=== PATIENT | female | born 1960 | race Caucasian/White ===

== ENCOUNTER → 2018-10-20 05:00 | Outpatient (REF) | payer MEDICAID, SELFPAY ==
[2018-10-20 10:22] LABS: Hemoglobin A1c 8.8 % (4.2-6.3)
[2018-10-20 10:32] LABS: ALB/GLOB Ratio 0.8 RATIO (0.9-2.4); AST(SGOT) 12 U/L (15-37); Alanine Aminotransfer ALT/SGPT 21 U/L (13-56); Albumin, Serum 3.3 g/dL (3.2-5.0); Alkaline Phosphatase 82 U/L (45-117); Anion Gap 8 (5-15); BUN 37 mg/dL (7-18); BUN/Creat Ratio 26.2 RATIO (10-20); Calcium,Total 8.9 mg/dL (8.5-10.1); Chloride 105 mmol/L (98-107); Creatinine, Serum 1.41 mg/dL (0.55-1.02); EST Glomerular Filtration Rate 41 mL/min (>60); Est Glom Filt Rate - Afr Amer 50 mL/min (>60); Globulin 4.1 g/dL (2.2-4.2); Glucose 279 mg/dL (74-106); Potassium 4.3 mmol/L (3.5-5.1); Protein, Total 7.4 g/dL (6.4-8.2); Sodium Level 138 mmol/L (136-145)
== END ==
LOC: OLS.ACW300 05:00
PROVIDERS: Visit Provider Family Medicine
DX: K57.90 Diverticulosis of intestine, part unspecified, without perforation or abscess without bleeding (principal); M62.81 Muscle weakness (generalized); R27.9 Unspecified lack of coordination; E11.21 Type 2 diabetes mellitus with diabetic nephropathy
CPT/HCPCS: 36415; 80053; 83036

== ENCOUNTER → 2018-10-21 04:00 | Outpatient (REF) | payer MEDICAID, SELFPAY ==
[2018-10-21 08:17] LABS: Color, Urine Straw (Yellow); Glucose, Dipstick Normal (Normal); Ketone-Dipstick Negative (Negative); Leukocyte Esterase-Dipstick 25 /ul (Negative); Nitrite-Dipstick Negative (Negative); Occult Blood-Urine Negative /ul (Negative); Protein-Dipstick 30 mg/dl (Negative); Urine Bilirubin Dipstick Negative (Negative); Urine Clarity Clear (Clear); Urine Urobilinogen Normal (Normal); Urine pH 6.5 (5.0 - 8.0)
== END ==
LOC: OLS.ACW300 04:00
PROVIDERS: Visit Provider Family Medicine
DX: K57.90 Diverticulosis of intestine, part unspecified, without perforation or abscess without bleeding (principal); M62.81 Muscle weakness (generalized); R27.9 Unspecified lack of coordination; E11.21 Type 2 diabetes mellitus with diabetic nephropathy
CPT/HCPCS: 81002; 87086; 87088

== ENCOUNTER → 2018-12-31 05:30 | Outpatient (REF) | payer MEDICAID, SELFPAY ==
[2018-12-31 06:45] LABS: Anion Gap 8 (5-15); BUN 34 mg/dL (7-18); BUN/Creat Ratio 28.6 RATIO (10-20); Calcium,Total 8.9 mg/dL (8.5-10.1); Chloride 107 mmol/L (98-107); Creatinine, Serum 1.19 mg/dL (0.55-1.02); EST Glomerular Filtration Rate 50 mL/min (>60); Est Glom Filt Rate - Afr Amer 60 mL/min (>60); Glucose 236 mg/dL (74-106); Potassium 4.2 mmol/L (3.5-5.1); Sodium Level 141 mmol/L (136-145)
== END ==
LOC: OLS.ACW300 05:30
PROVIDERS: Visit Provider Family Medicine
DX: K57.90 Diverticulosis of intestine, part unspecified, without perforation or abscess without bleeding (principal); M62.81 Muscle weakness (generalized); R27.9 Unspecified lack of coordination; E11.21 Type 2 diabetes mellitus with diabetic nephropathy
CPT/HCPCS: 36415; 80048

== ENCOUNTER → 2019-02-06 05:00 | Outpatient (REF) | payer MEDICAID, SELFPAY ==
[2019-02-06 08:35] LABS: Hemoglobin A1c 8.9 % (4.2-6.3)
== END ==
LOC: OLS.ACW300 05:00
PROVIDERS: Visit Provider Family Medicine
DX: E11.21 Type 2 diabetes mellitus with diabetic nephropathy (principal); K57.90 Diverticulosis of intestine, part unspecified, without perforation or abscess without bleeding; M62.81 Muscle weakness (generalized); R27.9 Unspecified lack of coordination
CPT/HCPCS: 36415; 83036

== ENCOUNTER → 2019-07-13 06:30 | Outpatient (REF) | payer MEDICAID, SELFPAY ==
[2019-07-13 08:35] LABS: Albumin, Serum 3.1 g/dL (3.2-5.0); BUN 31 mg/dL (7-18); BUN/Creat Ratio 23.3 RATIO (10-20); Creatinine, Serum 1.33 mg/dL (0.55-1.02); EST Glomerular Filtration Rate 44 mL/min (>60); Est Glom Filt Rate - Afr Amer 53 mL/min (>60); Glucose 252 mg/dL (74-106); Protein, Total 7.2 g/dL (6.4-8.2)
[2019-07-13 08:36] LABS: ALB/GLOB Ratio 0.8 RATIO (0.9-2.4); AST(SGOT) 21 U/L (15-37); Alanine Aminotransfer ALT/SGPT 31 U/L (13-56); Alkaline Phosphatase 83 U/L (45-117); Anion Gap 8 (5-15); Calcium,Total 9.1 mg/dL (8.5-10.1); Chloride 106 mmol/L (98-107); Globulin 4.1 g/dL (2.2-4.2); Potassium 3.9 mmol/L (3.5-5.1); Sodium Level 140 mmol/L (136-145)
[2019-07-13 09:54] LABS: Hemoglobin A1c 8.5 % (4.2-6.3)
== END ==
LOC: OLS.ACW300 06:30
PROVIDERS: Referring Provider Internal Medicine; Visit Provider Internal Medicine
DX: K57.90 Diverticulosis of intestine, part unspecified, without perforation or abscess without bleeding (principal); M62.81 Muscle weakness (generalized); R27.9 Unspecified lack of coordination; E11.21 Type 2 diabetes mellitus with diabetic nephropathy
CPT/HCPCS: 36415; 80053; 83036

== ENCOUNTER → 2019-09-16 07:45 | Outpatient (REF) | payer MEDICAID, SELFPAY ==
[2019-09-16 09:09] LABS: Cholesterol 162 mg/dL (200); High Density Lipoprotein 30 mg/dL; Triglycerides 239 mg/dL; Very Low Density Lipoprotein 48 mg/dL (5-40)
== END ==
LOC: OLS.ACW300 07:45
PROVIDERS: Visit Provider Internal Medicine
DX: K57.90 Diverticulosis of intestine, part unspecified, without perforation or abscess without bleeding (principal); M62.81 Muscle weakness (generalized); R27.9 Unspecified lack of coordination; E11.21 Type 2 diabetes mellitus with diabetic nephropathy
CPT/HCPCS: 36415; 80061

== ENCOUNTER → 2019-12-19 05:00 | Outpatient (REF) | payer MEDICAID, SELFPAY ==
[2019-12-19 08:25] LABS: Anion Gap 4 (5-15); BUN 34 mg/dL (7-18); BUN/Creat Ratio 25.2 RATIO (10-20); Calcium,Total 9.1 mg/dL (8.5-10.1); Chloride 112 mmol/L (98-107); Creatinine, Serum 1.35 mg/dL (0.55-1.02); EST Glomerular Filtration Rate 43 mL/min (>60); Est Glom Filt Rate - Afr Amer 52 mL/min (>60); Glucose 125 mg/dL (74-106); Potassium 4.1 mmol/L (3.5-5.1); Sodium Level 143 mmol/L (136-145)
[2019-12-19 08:36] LABS: Hemoglobin A1c 8.1 % (3.8-5.6)
== END ==
LOC: OLS.ACW300 05:00
PROVIDERS: Referring Provider Internal Medicine; Visit Provider Internal Medicine
DX: K57.90 Diverticulosis of intestine, part unspecified, without perforation or abscess without bleeding (principal); M62.81 Muscle weakness (generalized); R27.9 Unspecified lack of coordination; R41.841 Cognitive communication deficit
CPT/HCPCS: 36415; 80048; 83036

== ENCOUNTER → 2020-01-05 10:57 | Outpatient (REF) | payer MEDICAID, SELFPAY | LOC: OLS.ACW300 10:57 | PROVIDERS: Visit Provider Internal Medicine | DX: Z03.818 Encounter for observation for suspected exposure to other biological agents ruled out (principal) | CPT/HCPCS: 87635; U0003 ==

== ENCOUNTER → 2020-01-11 13:23 | Outpatient (REF) | payer MEDICAID, SELFPAY | LOC: OLS.ACW300 13:23 | PROVIDERS: Referring Provider Family Medicine; Visit Provider Family Medicine | DX: Z03.818 Encounter for observation for suspected exposure to other biological agents ruled out (principal) | CPT/HCPCS: 87635; U0003 ==

== ENCOUNTER → 2020-02-28 13:38 | Outpatient (REF) | payer MEDICAID, SELFPAY | LOC: OLS.ACW300 13:38 | PROVIDERS: Visit Provider Family Medicine | DX: Z03.818 Encounter for observation for suspected exposure to other biological agents ruled out (principal) | CPT/HCPCS: 87635; U0003 ==

== ENCOUNTER → 2020-04-29 05:00 | Outpatient (REF) | payer MEDICAID, SELFPAY ==
[2020-04-29 08:30] LABS: Anion Gap 6 (5-15); BUN 37 mg/dL (7-18); BUN/Creat Ratio 27.6 RATIO (10-20); Calcium,Total 8.6 mg/dL (8.5-10.1); Chloride 111 mmol/L (98-107); Creatinine, Serum 1.34 mg/dL (0.55-1.02); EST Glomerular Filtration Rate 43 mL/min (>60); Est Glom Filt Rate - Afr Amer 52 mL/min (>60); Glucose 149 mg/dL (74-106); Sodium Level 142 mmol/L (136-145)
== END ==
LOC: OLS.ACW300 05:00
PROVIDERS: Referring Provider Family Medicine; Visit Provider Family Medicine
DX: E11.21 Type 2 diabetes mellitus with diabetic nephropathy (principal); K57.90 Diverticulosis of intestine, part unspecified, without perforation or abscess without bleeding; M62.81 Muscle weakness (generalized); R27.9 Unspecified lack of coordination
CPT/HCPCS: 36415; 80048

== ENCOUNTER → 2020-06-06 05:00 | Outpatient (REF) | payer MEDICAID, SELFPAY ==
[2020-06-06 08:15] LABS: Hemoglobin 13.8 g/dL (12.0-15.0); Mean Corp Hgb Conc 32.9 g/dL (32-36); Mean Corpuscular Hgb 30.2 pg (27.0-32.0); Mean Corpuscular Volume 91.9 fL (81-99); Platelet Count 325 K/mm3 (150-450); RBC Distribution Width CV 13.1 % (11.6-14.6); RBC Distribution Width SD 43.8 fl (35.1-43.9); Red Blood Count 4.57 M/mm3 (4.2-5.4); White Blood Count 8.4 K/mm3 (4.4-11.0)
[2020-06-06 08:43] LABS: Vitamin D,25 Hydroxy 22.9 ng/mL
[2020-06-06 08:55] LABS: AST(SGOT) 17 U/L (15-37); Alanine Aminotransfer ALT/SGPT 24 U/L (13-56); Alkaline Phosphatase 69 U/L (45-117); Anion Gap 5 (5-15); BUN 32 mg/dL (7-18); BUN/Creat Ratio 21.1 RATIO (10-20); Calcium,Total 8.7 mg/dL (8.5-10.1); Chloride 110 mmol/L (98-107); Cholesterol 194 mg/dL (200); Creatinine, Serum 1.52 mg/dL (0.55-1.02); EST Glomerular Filtration Rate 37 mL/min (>60); Est Glom Filt Rate - Afr Amer 45 mL/min (>60); Globulin 3.9 g/dL (2.2-4.2); Glucose 100 mg/dL (74-106); High Density Lipoprotein 36 mg/dL; Potassium 4.2 mmol/L (3.5-5.1); Protein, Total 6.9 g/dL (6.4-8.2); Sodium Level 145 mmol/L (136-145); Thyroid Stim Hormone (TSH) 5.05 uIU/mL (0.358-3.74); Triglycerides 209 mg/dL; Very Low Density Lipoprotein 42 mg/dL (5-40)
[2020-06-06 09:07] LABS: Hemoglobin A1c 7.4 % (3.8-5.6)
== END ==
LOC: OLS.ACW300 05:00
PROVIDERS: Visit Provider Family Medicine
DX: E11.21 Type 2 diabetes mellitus with diabetic nephropathy (principal); K57.90 Diverticulosis of intestine, part unspecified, without perforation or abscess without bleeding; M62.81 Muscle weakness (generalized); R27.9 Unspecified lack of coordination
CPT/HCPCS: 36415; 80048; 80061; 80076; 82306; 83036; 84443; 85027

== ENCOUNTER → 2020-06-07 15:30 | Outpatient (REF) | payer MEDICAID, SELFPAY | LOC: OLS.ACW300 15:30 | PROVIDERS: Referring Provider Family Medicine; Visit Provider Family Medicine | DX: R30.0 Dysuria (principal); E11.21 Type 2 diabetes mellitus with diabetic nephropathy; K57.90 Diverticulosis of intestine, part unspecified, without perforation or abscess without bleeding; M62.81 Muscle weakness (generalized); R27.9 Unspecified lack of coordination | CPT/HCPCS: 87086; 87088 ==

== ENCOUNTER → 2020-06-10 08:53 | Outpatient (REF) | payer MEDICAID, SELFPAY | LOC: OLS.ACW300 08:53 | PROVIDERS: Visit Provider Family Medicine | DX: R30.0 Dysuria (principal) | CPT/HCPCS: 87086; 87088; 87186 ==

== ENCOUNTER → 2020-11-07 04:15 | Outpatient (REF) | payer MEDICAID, SELFPAY ==
[2020-11-07 08:57] LABS: Color, Urine Yellow (Yellow); Glucose, Dipstick Normal (Normal); Ketone-Dipstick Negative (Negative); Leukocyte Esterase-Dipstick 25 /ul (Negative); Nitrite-Dipstick Negative (Negative); Occult Blood-Urine Negative /ul (Negative); Protein-Dipstick 100 mg/dl (Negative); Specific Gravity, Urine 1.015 (1.002-1.030); Urine Bilirubin Dipstick Negative (Negative); Urine Clarity Sl. Cloudy (Clear); Urine Urobilinogen Normal (Normal)
== END ==
LOC: OLS.ACW300 04:15
PROVIDERS: Referring Provider Family Medicine; Visit Provider Family Medicine
DX: E11.21 Type 2 diabetes mellitus with diabetic nephropathy (principal); K57.90 Diverticulosis of intestine, part unspecified, without perforation or abscess without bleeding; M62.81 Muscle weakness (generalized); R27.9 Unspecified lack of coordination
CPT/HCPCS: 81002; 87086; 87088

== ENCOUNTER → 2020-12-05 05:00 | Outpatient (REF) | payer MEDICAID, SELFPAY ==
[2020-12-05 09:10] LABS: AST(SGOT) 17 U/L (15-37); Alanine Aminotransfer ALT/SGPT 33 U/L (13-56); Albumin, Serum 2.6 g/dL (3.2-5.0); Alkaline Phosphatase 62 U/L (45-117); Anion Gap 4 (5-15); BUN 34 mg/dL (7-18); BUN/Creat Ratio 23.9 RATIO (10-20); Bilirubin, Direct 0.06 mg/dL (0.00-0.30); Calcium,Total 8.4 mg/dL (8.5-10.1); Chloride 112 mmol/L (98-107); Cholesterol 157 mg/dL (200); Creatinine, Serum 1.42 mg/dL (0.55-1.02); EST Glomerular Filtration Rate 40 mL/min (>60); Est Glom Filt Rate - Afr Amer 49 mL/min (>60); Globulin 4.1 g/dL (2.2-4.2); Glucose 87 mg/dL (74-106); High Density Lipoprotein 33 mg/dL; Magnesium 1.9 mg/dL (1.6-2.6); Potassium 4.1 mmol/L (3.5-5.1); Protein, Total 6.7 g/dL (6.4-8.2); Sodium Level 144 mmol/L (136-145); Triglycerides 206 mg/dL; Very Low Density Lipoprotein 41 mg/dL (5-40)
[2020-12-05 10:38] LABS: Hemoglobin A1c 6.5 % (3.8-5.6)
== END ==
LOC: OLS.ACW300 05:00
PROVIDERS: Visit Provider Family Medicine
DX: E11.21 Type 2 diabetes mellitus with diabetic nephropathy (principal); K57.90 Diverticulosis of intestine, part unspecified, without perforation or abscess without bleeding; M62.81 Muscle weakness (generalized); R27.9 Unspecified lack of coordination
CPT/HCPCS: 36415; 80048; 80061; 80076; 83036; 83735

== ENCOUNTER → 2021-05-05 | Outpatient (REF) | payer MEDICAID, SELFPAY ==
[2021-05-05 11:42] LABS: Hematocrit 37.8 % (37-47); Hemoglobin 12.5 g/dL (12.0-15.0); Mean Corp Hgb Conc 33.1 g/dL (32-36); Mean Corpuscular Hgb 29.5 pg (27.0-32.0); Mean Corpuscular Volume 89.2 fL (81-99); Mean Platelet Vol. 9.8 fl (6.2-12.0); Platelet Count 309 K/mm3 (150-450); RBC Distribution Width CV 12.8 % (11.6-14.6); RBC Distribution Width SD 41.5 fl (35.1-43.9); Red Blood Count 4.24 M/mm3 (4.2-5.4); White Blood Count 8.4 K/mm3 (4.4-11.0)
[2021-05-05 12:21] LABS: Vitamin D,25 Hydroxy 22.2 ng/mL
[2021-05-05 12:32] LABS: ALB/GLOB Ratio 0.8 RATIO (0.9-2.4); AST(SGOT) 17 U/L (15-37); Alanine Aminotransfer ALT/SGPT 25 U/L (13-56); Albumin, Serum 2.7 g/dL (3.2-5.0); Alkaline Phosphatase 71 U/L (45-117); Anion Gap 2 (5-15); BUN 33 mg/dL (7-18); BUN/Creat Ratio 21.4 RATIO (10-20); Calcium,Total 8.4 mg/dL (8.5-10.1); Chloride 110 mmol/L (98-107); Cholesterol 160 mg/dL (200); Creatinine, Serum 1.54 mg/dL (0.55-1.02); EST Glomerular Filtration Rate 37 mL/min (>60); Est Glom Filt Rate - Afr Amer 44 mL/min (>60); Globulin 3.6 g/dL (2.2-4.2); Glucose 119 mg/dL (74-106); High Density Lipoprotein 34 mg/dL; Potassium 4.5 mmol/L (3.5-5.1); Protein, Total 6.3 g/dL (6.4-8.2); Sodium Level 141 mmol/L (136-145); Thyroid Stim Hormone (TSH) 5.77 uIU/mL (0.358-3.74); Triglycerides 179 mg/dL; Very Low Density Lipoprotein 36 mg/dL (5-40)
[2021-05-05 14:10] LABS: Hemoglobin A1c 6.7 % (3.8-5.6)
== END | disposition home or self-care (01) ==
LOC: OLS.ACW300 04:00
PROVIDERS: Referring Provider Family Medicine; Visit Provider Family Medicine
DX: E11.21 Type 2 diabetes mellitus with diabetic nephropathy (principal); K57.90 Diverticulosis of intestine, part unspecified, without perforation or abscess without bleeding; M62.81 Muscle weakness (generalized); R27.9 Unspecified lack of coordination
CPT/HCPCS: 36415; 80053; 80061; 82306; 83036; 84443; 85027

== ENCOUNTER → 2021-08-11 | Outpatient (REF) | payer MEDICAID, SELFPAY ==
[2021-08-11 09:38] LABS: Thyroid Stim Hormone (TSH) 4.27 uIU/mL (0.358-3.74)
== END | disposition home or self-care (01) ==
LOC: OLS.ACW300 05:00
PROVIDERS: Visit Provider Family Medicine
DX: E03.9 Hypothyroidism, unspecified (principal); E11.21 Type 2 diabetes mellitus with diabetic nephropathy; K57.90 Diverticulosis of intestine, part unspecified, without perforation or abscess without bleeding; M62.81 Muscle weakness (generalized); R27.9 Unspecified lack of coordination
CPT/HCPCS: 36415; 84443

== ENCOUNTER → 2021-10-20 | Outpatient (REF) | payer MEDICAID, SELFPAY | END | disposition home or self-care (01) | LOC: OLS.ACW300 09:59 | PROVIDERS: Referring Provider Family Medicine; Visit Provider Family Medicine | DX: R30.9 Painful micturition, unspecified (principal); E11.21 Type 2 diabetes mellitus with diabetic nephropathy; K57.90 Diverticulosis of intestine, part unspecified, without perforation or abscess without bleeding; M62.81 Muscle weakness (generalized); R27.9 Unspecified lack of coordination | CPT/HCPCS: 87086; 87088 ==

== ENCOUNTER → 2021-12-04 | Outpatient (REF) | payer MEDICAID, SELFPAY ==
[2021-12-04 09:56] LABS: Hemoglobin A1c 6.7 % (3.8-5.6)
[2021-12-04 09:57] LABS: AST(SGOT) 14 U/L (15-37); Alanine Aminotransfer ALT/SGPT 21 U/L (13-56); Albumin, Serum 2.9 g/dL (3.2-5.0); Alkaline Phosphatase 56 U/L (45-117); Anion Gap 7 (5-15); BUN 37 mg/dL (7-18); Bilirubin, Direct 0.09 mg/dL (0.00-0.30); Calcium,Total 8.7 mg/dL (8.5-10.1); Chloride 110 mmol/L (98-107); Cholesterol 161 mg/dL (200); Creatinine, Serum 1.54 mg/dL (0.55-1.02); EST Glomerular Filtration Rate 37 mL/min (>60); Est Glom Filt Rate - Afr Amer 44 mL/min (>60); Globulin 3.8 g/dL (2.2-4.2); Glucose 85 mg/dL (74-106); High Density Lipoprotein 34 mg/dL; Protein, Total 6.7 g/dL (6.4-8.2); Sodium Level 144 mmol/L (136-145); Triglycerides 214 mg/dL; Very Low Density Lipoprotein 43 mg/dL (5-40)
[2021-12-05 05:20] LABS: Thyroid Stim Hormone (TSH) 4.16 uIU/mL (0.358-3.74)
== END | disposition home or self-care (01) ==
LOC: OLS.ACW300 05:00
PROVIDERS: Visit Provider Family Medicine
DX: E11.21 Type 2 diabetes mellitus with diabetic nephropathy (principal); K57.90 Diverticulosis of intestine, part unspecified, without perforation or abscess without bleeding; M62.81 Muscle weakness (generalized); R27.9 Unspecified lack of coordination
CPT/HCPCS: 36415; 80048; 80061; 80076; 83036; 84443

== ENCOUNTER → 2022-03-09 | Outpatient (REF) | payer MEDICAID, SELFPAY ==
[2022-03-09 09:03] LABS: Thyroid Stim Hormone (TSH) 2.31 uIU/mL (0.358-3.74)
== END | disposition home or self-care (01) ==
LOC: OLS.ACW300 05:00
PROVIDERS: Visit Provider Family Medicine
DX: E11.21 Type 2 diabetes mellitus with diabetic nephropathy (principal); K57.90 Diverticulosis of intestine, part unspecified, without perforation or abscess without bleeding; M62.81 Muscle weakness (generalized); R27.9 Unspecified lack of coordination
CPT/HCPCS: 36415; 84443

== ENCOUNTER → 2022-06-04 | Outpatient (REF) | payer MEDICAID, SELFPAY ==
[2022-06-04 08:34] LABS: Hematocrit 38.5 % (37-47); Hemoglobin 12.6 g/dL (12.0-15.0); Mean Corp Hgb Conc 32.7 g/dL (32-36); Mean Corpuscular Hgb 30.6 pg (27.0-32.0); Mean Corpuscular Volume 93.4 fL (81-99); Platelet Count 409 K/mm3 (150-450); RBC Distribution Width CV 12.3 % (11.6-14.6); RBC Distribution Width SD 42.2 fl (35.1-43.9); Red Blood Count 4.12 M/mm3 (4.2-5.4); White Blood Count 12.1 K/mm3 (4.4-11.0)
[2022-06-04 08:49] LABS: AST(SGOT) 18 U/L (15-37); Alanine Aminotransfer ALT/SGPT 28 U/L (13-56); Albumin, Serum 2.4 g/dL (3.2-5.0); Alkaline Phosphatase 70 U/L (45-117); Anion Gap 8 (5-15); BUN 47 mg/dL (7-18); BUN/Creat Ratio 25.8 RATIO (10-20); Bilirubin, Direct 0.12 mg/dL (0.00-0.30); Calcium,Total 8.5 mg/dL (8.5-10.1); Chloride 110 mmol/L (98-107); Cholesterol 135 mg/dL (200); Creatinine, Serum 1.82 mg/dL (0.55-1.02); EST Glomerular Filtration Rate 30 mL/min (>60); Est Glom Filt Rate - Afr Amer 36 mL/min (>60); Glucose 107 mg/dL (74-106); High Density Lipoprotein 35 mg/dL; Potassium 4.4 mmol/L (3.5-5.1); Protein, Total 6.4 g/dL (6.4-8.2); Sodium Level 142 mmol/L (136-145); Triglycerides 186 mg/dL; Very Low Density Lipoprotein 37 mg/dL (5-40)
[2022-06-04 09:07] LABS: Hemoglobin A1c 6.4 % (3.8-5.6)
== END | disposition home or self-care (01) ==
LOC: OLS.ACW300 05:00
PROVIDERS: Visit Provider Family Medicine
DX: E11.21 Type 2 diabetes mellitus with diabetic nephropathy (principal); K57.90 Diverticulosis of intestine, part unspecified, without perforation or abscess without bleeding; M62.81 Muscle weakness (generalized); R27.9 Unspecified lack of coordination
CPT/HCPCS: 36415; 80048; 80061; 80076; 83036; 85027

== ENCOUNTER → 2022-07-16 | Outpatient (REF) | payer MEDICAID, SELFPAY ==
[2022-07-16 08:31] LABS: Hematocrit 38.3 % (37-47); Hemoglobin 12.4 g/dL (12.0-15.0); Mean Corp Hgb Conc 32.4 g/dL (32-36); Mean Corpuscular Hgb 30.5 pg (27.0-32.0); Mean Corpuscular Volume 94.1 fL (81-99); Platelet Count 268 K/mm3 (150-450); RBC Distribution Width CV 12.6 % (11.6-14.6); RBC Distribution Width SD 43.6 fl (35.1-43.9); Red Blood Count 4.07 M/mm3 (4.2-5.4); White Blood Count 8.8 K/mm3 (4.4-11.0)
[2022-07-16 08:35] LABS: Erythrocyte Sedimentation Rate 43 mm/hr (0-30)
[2022-07-16 08:42] LABS: Cholesterol 167 mg/dL (200); High Density Lipoprotein 37 mg/dL; Triglycerides 159 mg/dL; Very Low Density Lipoprotein 32 mg/dL (5-40)
== END | disposition home or self-care (01) ==
LOC: OLS.ACW300 05:00
PROVIDERS: Visit Provider Family Medicine
DX: E11.21 Type 2 diabetes mellitus with diabetic nephropathy (principal); K57.90 Diverticulosis of intestine, part unspecified, without perforation or abscess without bleeding; M62.81 Muscle weakness (generalized); R27.9 Unspecified lack of coordination
CPT/HCPCS: 36415; 80061; 85027; 85652; 86140

== ENCOUNTER → 2022-08-28 | Outpatient (REF) | payer MEDICAID, SELFPAY | END | disposition home or self-care (01) | LOC: OLS.ACW300 04:00 | PROVIDERS: Visit Provider Family Medicine | DX: S81.801A Unspecified open wound, right lower leg, initial encounter (principal) | CPT/HCPCS: 87070; 87077; 87186; 87205 ==

== ENCOUNTER → 2022-10-09 | Outpatient (REF) | payer MEDICAID, SELFPAY ==
[2022-10-09 09:44] LABS: Anion Gap 7 (5-15); BUN 40 mg/dL (7-18); BUN/Creat Ratio 21.2 RATIO (10-20); Calcium,Total 8.1 mg/dL (8.5-10.1); Chloride 103 mmol/L (98-107); Creatinine, Serum 1.89 mg/dL (0.55-1.02); EST Glomerular Filtration Rate 29 mL/min (>60); Est Glom Filt Rate - Afr Amer 35 mL/min (>60); Glucose 61 mg/dL (74-106); Sodium Level 133 mmol/L (136-145)
== END | disposition home or self-care (01) ==
LOC: OLS.ACW300 05:00
PROVIDERS: Visit Provider Family Medicine
DX: E11.21 Type 2 diabetes mellitus with diabetic nephropathy (principal); K57.90 Diverticulosis of intestine, part unspecified, without perforation or abscess without bleeding
CPT/HCPCS: 36415; 80048

== ENCOUNTER → 2022-11-05 | Outpatient (REF) | payer MEDICAID, SELFPAY ==
[2022-11-05 10:06] LABS: Hemoglobin A1c 5.6 % (3.8-5.6)
== END | disposition home or self-care (01) ==
LOC: OLS.ACW300 05:00
PROVIDERS: Visit Provider Family Medicine
DX: E11.21 Type 2 diabetes mellitus with diabetic nephropathy (principal)
CPT/HCPCS: 36415; 83036

== ENCOUNTER → 2022-11-25 | Outpatient (REF) | payer MEDICAID, SELFPAY ==
[2022-11-25 09:23] LABS: Hematocrit 37.4 % (37-47); Hemoglobin 11.5 g/dL (12.0-15.0); Mean Corp Hgb Conc 30.7 g/dL (32-36); Mean Corpuscular Hgb 29.9 pg (27.0-32.0); Mean Corpuscular Volume 97.4 fL (81-99); Mean Platelet Vol. 10.2 fl (6.2-12.0); Platelet Count 379 K/mm3 (150-450); RBC Distribution Width CV 12.6 % (11.6-14.6); RBC Distribution Width SD 44.9 fl (35.1-43.9); Red Blood Count 3.84 M/mm3 (4.2-5.4); White Blood Count 10.9 K/mm3 (4.4-11.0)
== END | disposition home or self-care (01) ==
LOC: OLS.ACW300 05:00
PROVIDERS: Visit Provider Family Medicine
DX: D64.9 Anemia, unspecified (principal); E11.21 Type 2 diabetes mellitus with diabetic nephropathy; K57.90 Diverticulosis of intestine, part unspecified, without perforation or abscess without bleeding
CPT/HCPCS: 36415; 85027

== ENCOUNTER → 2023-02-05 | Outpatient (REF) | payer MEDICAID, SELFPAY ==
[2023-02-05 11:45] LABS: Hemoglobin A1c 6.6 % (3.8-5.6)
== END | disposition home or self-care (01) ==
LOC: OLS.ACW300 05:00
PROVIDERS: Visit Provider Family Medicine
DX: E11.9 Type 2 diabetes mellitus without complications (principal)
CPT/HCPCS: 36415; 83036

== ENCOUNTER → 2023-02-13 | Outpatient (REF) | payer MEDICAID, SELFPAY ==
[2023-02-13 15:19] LABS: Color, Urine Red (Yellow); Glucose, Dipstick 1000 mg/dl (Normal); Ketone-Dipstick 5 mg/dl (Negative); Leukocyte Esterase-Dipstick 100 /ul (Negative); Nitrite-Dipstick Negative (Negative); Occult Blood-Urine 250 /ul (Negative); Protein-Dipstick 500 mg/dl (Negative); Urine Bilirubin Dipstick Negative (Negative); Urine Clarity Cloudy (Clear); Urine Urobilinogen Normal (Normal)
[2023-02-13 15:24] LABS: Hematocrit 37.6 % (37-47); Hemoglobin 11.9 g/dL (12.0-15.0); Mean Corp Hgb Conc 31.6 g/dL (32-36); Mean Corpuscular Hgb 29.6 pg (27.0-32.0); Mean Corpuscular Volume 93.5 fL (81-99); Mean Platelet Vol. 9.8 fl (6.2-12.0); Platelet Count 322 K/mm3 (150-450); RBC Distribution Width CV 12.8 % (11.6-14.6); RBC Distribution Width SD 43.7 fl (35.1-43.9); Red Blood Count 4.02 M/mm3 (4.2-5.4); White Blood Count 11.3 K/mm3 (4.4-11.0)
[2023-02-13 15:44] LABS: Anion Gap 6 (5-15); BUN 47 mg/dL (7-18); BUN/Creat Ratio 28.3 RATIO (10-20); Calcium,Total 8.4 mg/dL (8.5-10.1); Chloride 112 mmol/L (98-107); Creatinine, Serum 1.66 mg/dL (0.55-1.02); EST Glomerular Filtration Rate 33 mL/min (>60); Est Glom Filt Rate - Afr Amer 40 mL/min (>60); Glucose 138 mg/dL (74-106); Potassium 4.7 mmol/L (3.5-5.1); Sodium Level 142 mmol/L (136-145)
== END | disposition home or self-care (01) ==
LOC: OLS.ACW300 14:10
PROVIDERS: Referring Provider Family Medicine; Visit Provider Family Medicine
DX: E11.21 Type 2 diabetes mellitus with diabetic nephropathy (principal); K57.90 Diverticulosis of intestine, part unspecified, without perforation or abscess without bleeding; M62.81 Muscle weakness (generalized); Z79.899 Other long term (current) drug therapy
CPT/HCPCS: 36415; 80048; 81002; 85027; 87077; 87086; 87088; 87186

== ENCOUNTER → 2023-07-19 | Outpatient (REF) | payer MEDICAID, SELFPAY ==
[2023-07-19 09:05] LABS: Hemoglobin 11.5 g/dL (12.0-15.0); Mean Corp Hgb Conc 31.1 g/dL (32-36); Mean Corpuscular Hgb 29.7 pg (27.0-32.0); Mean Corpuscular Volume 95.6 fL (81-99); Platelet Count 341 K/mm3 (150-450); RBC Distribution Width SD 45.3 fl (35.1-43.9); Red Blood Count 3.87 M/mm3 (4.2-5.4); White Blood Count 8.9 K/mm3 (4.4-11.0)
[2023-07-19 09:36] LABS: Anion Gap 5 (5-15); BUN 54 mg/dL (7-18); Calcium,Total 8.6 mg/dL (8.5-10.1); Chloride 112 mmol/L (98-107); Creatinine, Serum 2.16 mg/dL (0.55-1.02); EST Glomerular Filtration Rate 25 mL/min (>60); Est Glom Filt Rate - Afr Amer 30 mL/min (>60); Glucose 179 mg/dL (74-106); Potassium 4.5 mmol/L (3.5-5.1); Sodium Level 141 mmol/L (136-145)
== END | disposition home or self-care (01) ==
LOC: OLS.ACW300 05:00
PROVIDERS: Visit Provider Family Medicine
DX: Z79.899 Other long term (current) drug therapy (principal)
CPT/HCPCS: 36415; 80048; 85027

== ENCOUNTER → 2023-07-26 | Outpatient (REF) | payer MEDICAID, SELFPAY ==
[2023-07-26 09:04] LABS: Hematocrit 35.1 % (37-47); Hemoglobin 10.9 g/dL (12.0-15.0); Mean Corp Hgb Conc 31.1 g/dL (32-36); Mean Corpuscular Hgb 29.8 pg (27.0-32.0); Mean Corpuscular Volume 95.9 fL (81-99); Mean Platelet Vol. 10.3 fl (6.2-12.0); Platelet Count 305 K/mm3 (150-450); RBC Distribution Width SD 45.6 fl (35.1-43.9); Red Blood Count 3.66 M/mm3 (4.2-5.4); White Blood Count 8.1 K/mm3 (4.4-11.0)
[2023-07-26 09:16] LABS: Anion Gap 3 (5-15); BUN 45 mg/dL (7-18); BUN/Creat Ratio 21.4 RATIO (10-20); Calcium,Total 8.4 mg/dL (8.5-10.1); Chloride 111 mmol/L (98-107); EST Glomerular Filtration Rate 25 mL/min (>60); Est Glom Filt Rate - Afr Amer 31 mL/min (>60); Glucose 235 mg/dL (74-106); Potassium 4.7 mmol/L (3.5-5.1); Sodium Level 141 mmol/L (136-145)
== END | disposition home or self-care (01) ==
LOC: OLS.ACW300 05:00
PROVIDERS: Visit Provider Family Medicine
DX: E11.21 Type 2 diabetes mellitus with diabetic nephropathy (principal); K57.90 Diverticulosis of intestine, part unspecified, without perforation or abscess without bleeding; M62.81 Muscle weakness (generalized)
CPT/HCPCS: 36415; 80048; 85027

== ENCOUNTER → 2023-10-18 | Outpatient (REF) | payer MEDICAID, SELFPAY ==
[2023-10-18 09:03] LABS: Hematocrit 36.3 % (37-47); Hemoglobin 11.4 g/dL (12.0-15.0); Mean Corp Hgb Conc 31.4 g/dL (32-36); Mean Corpuscular Hgb 29.2 pg (27.0-32.0); Mean Corpuscular Volume 93.1 fL (81-99); Mean Platelet Vol. 10.1 fl (6.2-12.0); Platelet Count 258 K/mm3 (150-450); RBC Distribution Width CV 12.4 % (11.6-14.6); RBC Distribution Width SD 42.5 fl (35.1-43.9); White Blood Count 7.4 K/mm3 (4.4-11.0)
[2023-10-18 09:21] LABS: Anion Gap 4 (5-15); BUN 47 mg/dL (7-18); Calcium,Total 8.4 mg/dL (8.5-10.1); Chloride 114 mmol/L (98-107); Cholesterol 161 mg/dL (200); Creatinine, Serum 1.74 mg/dL (0.55-1.02); EST Glomerular Filtration Rate 32 mL/min (>60); Est Glom Filt Rate - Afr Amer 38 mL/min (>60); Glucose 108 mg/dL (74-106); High Density Lipoprotein 43 mg/dL; Potassium 4.7 mmol/L (3.5-5.1); Sodium Level 141 mmol/L (136-145); Thyroid Stim Hormone (TSH) 1.26 uIU/mL (0.358-3.74); Triglycerides 128 mg/dL; Very Low Density Lipoprotein 26 mg/dL (5-40)
[2023-10-18 09:23] LABS: Hemoglobin A1c 8.6 % (3.8-5.6)
== END | disposition home or self-care (01) ==
LOC: OLS.ACW300 04:00
PROVIDERS: Visit Provider Family Medicine
DX: Z79.899 Other long term (current) drug therapy (principal); E11.21 Type 2 diabetes mellitus with diabetic nephropathy; R27.9 Unspecified lack of coordination; M62.81 Muscle weakness (generalized); K57.90 Diverticulosis of intestine, part unspecified, without perforation or abscess without bleeding
CPT/HCPCS: 36415; 80048; 80061; 83036; 84443; 85027

== ENCOUNTER → 2023-12-03 | Outpatient (REF) | payer MEDICAID, SELFPAY ==
[2023-12-03 08:45] LABS: Absolute Lymphocyte Count 2.17 X10^3/uL (0.83-4.51); Absolute Neutrophil Count 4.6 X10^3/uL (2.0-7.7); Basophil# 0.09 X10^3/uL; Basophil% 1.1 % (0-1); Eosinophil# 0.26 X10^3/uL; Eosinophils% 3.3 % (0-5); Hematocrit 34.9 % (37-47); Lymphocyte # 2.17 X10^3/ul (0.83-4.51); Lymphocyte % 27.2 % (19-41); Mean Corp Hgb Conc 31.5 g/dL (32-36); Mean Corpuscular Hgb 30.1 pg (27.0-32.0); Mean Corpuscular Volume 95.4 fL (81-99); Mean Platelet Vol. 9.8 fl (6.2-12.0); Monocyte# 0.79 X10^3/uL; Monocyte% 9.9 % (0-10); NRBC Flagged by Analyzer 0 % (0-5); Neutrophil # 4.61 X10^3/uL (2.7-7.7); Neutrophil % 57.9 % (47-70); Platelet Count 310 K/mm3 (150-450); RBC Distribution Width CV 13.2 % (11.6-14.6); RBC Distribution Width SD 46.5 fl (35.1-43.9); Red Blood Count 3.66 M/mm3 (4.2-5.4)
[2023-12-03 09:11] LABS: Albumin, Serum 2.9 g/dL (3.2-5.0); BUN 46 mg/dL (7-18); BUN/Creat Ratio 24.9 RATIO (10-20); Calcium,Total 8.7 mg/dL (8.5-10.1); Chloride 112 mmol/L (98-107); Creatinine, Serum 1.85 mg/dL (0.55-1.02); EST Glomerular Filtration Rate 29 mL/min (>60); Est Glom Filt Rate - Afr Amer 36 mL/min (>60); Glucose 228 mg/dL (74-106); Phosphorus 3.5 mg/dL (2.5-4.9); Potassium 4.1 mmol/L (3.5-5.1); Sodium Level 141 mmol/L (136-145)
[2023-12-03 09:41] LABS: Hemoglobin A1c 7.2 % (3.8-5.6)
[2023-12-03 15:07] LABS: Vitamin D,25 Hydroxy 27.4 ng/mL
[2023-12-03 15:13] LABS: PTHIN 80.2 pg/mL (18.4-80.1)
== END | disposition home or self-care (01) ==
LOC: OLS.ACW300 05:00
PROVIDERS: Visit Provider Family Medicine
DX: E11.21 Type 2 diabetes mellitus with diabetic nephropathy (principal); K57.90 Diverticulosis of intestine, part unspecified, without perforation or abscess without bleeding; M62.81 Muscle weakness (generalized); R27.9 Unspecified lack of coordination
CPT/HCPCS: 36415; 80069; 82306; 83036; 83970; 85025

== ENCOUNTER → 2024-01-18 | Outpatient (REF) | payer MEDICAID, SELFPAY ==
[2024-01-18 08:30] LABS: Hematocrit 35.9 % (37-47); Hemoglobin 11.3 g/dL (12.0-15.0); Mean Corp Hgb Conc 31.5 g/dL (32-36); Mean Corpuscular Hgb 29.9 pg (27.0-32.0); Mean Platelet Vol. 9.8 fl (6.2-12.0); Platelet Count 317 K/mm3 (150-450); RBC Distribution Width SD 41.9 fl (35.1-43.9); Red Blood Count 3.78 M/mm3 (4.2-5.4); White Blood Count 7.8 K/mm3 (4.4-11.0)
[2024-01-18 08:51] LABS: Anion Gap 5 (5-15); BUN 61 mg/dL (7-18); BUN/Creat Ratio 31.9 RATIO (10-20); Calcium,Total 8.8 mg/dL (8.5-10.1); Chloride 111 mmol/L (98-107); Cholesterol 134 mg/dL (200); Creatinine, Serum 1.91 mg/dL (0.55-1.02); EST Glomerular Filtration Rate 28 mL/min (>60); Est Glom Filt Rate - Afr Amer 34 mL/min (>60); Glucose 161 mg/dL (74-106); High Density Lipoprotein 37 mg/dL; Potassium 4.5 mmol/L (3.5-5.1); Sodium Level 141 mmol/L (136-145); Triglycerides 179 mg/dL; Very Low Density Lipoprotein 36 mg/dL (5-40)
[2024-01-18 09:58] LABS: Hemoglobin A1c 7.1 % (3.8-5.6)
== END | disposition home or self-care (01) ==
LOC: OLS.ACW300 05:00
PROVIDERS: Visit Provider Family Medicine
DX: E11.21 Type 2 diabetes mellitus with diabetic nephropathy (principal); K57.90 Diverticulosis of intestine, part unspecified, without perforation or abscess without bleeding; M62.81 Muscle weakness (generalized); Z79.899 Other long term (current) drug therapy
CPT/HCPCS: 36415; 80048; 80061; 83036; 84443; 85027

== ENCOUNTER → 2024-02-10 | Outpatient (REF) | payer MEDICAID, SELFPAY ==
[2024-02-10 08:53] LABS: Color, Urine Yellow (Yellow); Glucose, Dipstick 1000 mg/dl (Normal); Ketone-Dipstick Negative (Negative); Leukocyte Esterase-Dipstick Negative /ul (Negative); Nitrite-Dipstick Negative (Negative); Occult Blood-Urine 25 /ul (Negative); Protein-Dipstick 100 mg/dl (Negative); Specific Gravity, Urine 1.015 (1.002-1.030); Urine Bilirubin Dipstick Negative (Negative); Urine Clarity Clear (Clear); Urine Urobilinogen Normal (Normal)
== END | disposition home or self-care (01) ==
LOC: OLS.ACW300 05:30
PROVIDERS: Visit Provider Family Medicine
DX: R39.9 Unspecified symptoms and signs involving the genitourinary system (principal); E11.21 Type 2 diabetes mellitus with diabetic nephropathy
CPT/HCPCS: 81002; 87086

== ENCOUNTER → 2024-02-23 | Outpatient (REF) | payer MEDICAID, SELFPAY ==
[2024-02-23 09:10] LABS: Hematocrit 38.2 % (37-47); Hemoglobin 12.1 g/dL (12.0-15.0); Mean Corp Hgb Conc 31.7 g/dL (32-36); Mean Corpuscular Hgb 29.4 pg (27.0-32.0); Mean Corpuscular Volume 92.7 fL (81-99); Mean Platelet Vol. 10.5 fl (6.2-12.0); Platelet Count 380 K/mm3 (150-450); RBC Distribution Width CV 12.4 % (11.6-14.6); RBC Distribution Width SD 42.1 fl (35.1-43.9); Red Blood Count 4.12 M/mm3 (4.2-5.4); White Blood Count 9.9 K/mm3 (4.4-11.0)
[2024-02-23 09:17] LABS: Anion Gap 6 (5-15); BUN 48 mg/dL (7-18); BUN/Creat Ratio 21.3 RATIO (10-20); Calcium,Total 9.1 mg/dL (8.5-10.1); Chloride 109 mmol/L (98-107); Creatinine, Serum 2.25 mg/dL (0.55-1.02); EST Glomerular Filtration Rate 23 mL/min (>60); Est Glom Filt Rate - Afr Amer 28 mL/min (>60); Glucose 192 mg/dL (74-106); Potassium 4.6 mmol/L (3.5-5.1); Sodium Level 140 mmol/L (136-145)
== END | disposition home or self-care (01) ==
LOC: OLS.ACW100 06:05
PROVIDERS: Referring Provider Family Medicine; Visit Provider Family Medicine
DX: E11.21 Type 2 diabetes mellitus with diabetic nephropathy (principal); K57.90 Diverticulosis of intestine, part unspecified, without perforation or abscess without bleeding; M62.81 Muscle weakness (generalized)
CPT/HCPCS: 36415; 80048; 85027

== ENCOUNTER → 2024-03-02 | Outpatient (REF) | payer MEDICAID, SELFPAY ==
[2024-03-02 08:51] LABS: Anion Gap 6 (5-15); BUN 62 mg/dL (7-18); BUN/Creat Ratio 25.7 RATIO (10-20); Calcium,Total 8.6 mg/dL (8.5-10.1); Chloride 109 mmol/L (98-107); Creatinine, Serum 2.41 mg/dL (0.55-1.02); EST Glomerular Filtration Rate 22 mL/min (>60); Est Glom Filt Rate - Afr Amer 26 mL/min (>60); Glucose 237 mg/dL (74-106); Potassium 5.5 mmol/L (3.5-5.1); Sodium Level 138 mmol/L (136-145)
== END | disposition home or self-care (01) ==
LOC: OLS.ACW300 05:00
PROVIDERS: Visit Provider Family Medicine
DX: E11.21 Type 2 diabetes mellitus with diabetic nephropathy (principal); K57.90 Diverticulosis of intestine, part unspecified, without perforation or abscess without bleeding; M62.81 Muscle weakness (generalized)
CPT/HCPCS: 36415; 80048

== ENCOUNTER → 2024-03-09 | Outpatient (REF) | payer MEDICAID, SELFPAY ==
[2024-03-09 09:14] LABS: Hematocrit 36.1 % (37-47); Hemoglobin 11.4 g/dL (12.0-15.0); Mean Corp Hgb Conc 31.6 g/dL (32-36); Mean Platelet Vol. 10.2 fl (6.2-12.0); Platelet Count 329 K/mm3 (150-450); RBC Distribution Width CV 12.8 % (11.6-14.6)
[2024-03-09 09:50] LABS: ALB/GLOB Ratio 0.8 RATIO (0.9-2.4); AST(SGOT) 15 U/L (15-37); Alanine Aminotransfer ALT/SGPT 18 U/L (13-56); Albumin, Serum 3.2 g/dL (3.2-5.0); Alkaline Phosphatase 65 U/L (45-117); Anion Gap 5 (5-15); BUN 60 mg/dL (7-18); BUN/Creat Ratio 26.9 RATIO (10-20); Calcium,Total 8.5 mg/dL (8.5-10.1); Chloride 112 mmol/L (98-107); Creatinine, Serum 2.23 mg/dL (0.55-1.02); EST Glomerular Filtration Rate 24 mL/min (>60); Est Glom Filt Rate - Afr Amer 29 mL/min (>60); Globulin 3.8 g/dL (2.2-4.2); Glucose 191 mg/dL (74-106); Potassium 5.3 mmol/L (3.5-5.1); Sodium Level 141 mmol/L (136-145)
== END | disposition home or self-care (01) ==
LOC: OLS.ACW100 04:00
PROVIDERS: Referring Provider Family Medicine; Visit Provider Family Medicine
DX: E11.21 Type 2 diabetes mellitus with diabetic nephropathy (principal); M62.81 Muscle weakness (generalized)
CPT/HCPCS: 36415; 80053; 85027

== ENCOUNTER → 2024-03-16 04:00 | Outpatient (REF) | payer MEDICAID, SELFPAY ==
[2024-03-16 10:16] LABS: Anion Gap 4 (5-15); BUN 61 mg/dL (7-18); BUN/Creat Ratio 27.5 RATIO (10-20); Calcium,Total 8.6 mg/dL (8.5-10.1); Chloride 113 mmol/L (98-107); Creatinine, Serum 2.22 mg/dL (0.55-1.02); EST Glomerular Filtration Rate 24 mL/min (>60); Est Glom Filt Rate - Afr Amer 29 mL/min (>60); Glucose 226 mg/dL (74-106); Potassium 4.7 mmol/L (3.5-5.1); Sodium Level 142 mmol/L (136-145)
== END ==
LOC: OLS.ACW100 04:00
PROVIDERS: Referring Provider Family Medicine; Visit Provider Family Medicine
DX: E11.21 Type 2 diabetes mellitus with diabetic nephropathy (principal); K57.90 Diverticulosis of intestine, part unspecified, without perforation or abscess without bleeding; M62.81 Muscle weakness (generalized)
CPT/HCPCS: 36415; 80048

== ENCOUNTER → 2024-03-27 | Outpatient (REF) | payer MEDICAID, SELFPAY ==
[2024-03-27 10:25] LABS: Anion Gap 8 (5-15); BUN 52 mg/dL (7-18); BUN/Creat Ratio 25.5 RATIO (10-20); Chloride 110 mmol/L (98-107); Creatinine, Serum 2.04 mg/dL (0.55-1.02); EST Glomerular Filtration Rate 26 mL/min (>60); Est Glom Filt Rate - Afr Amer 32 mL/min (>60); Glucose 119 mg/dL (74-106); Potassium 4.5 mmol/L (3.5-5.1); Sodium Level 140 mmol/L (136-145)
== END | disposition home or self-care (01) ==
LOC: OLS.ACW100 05:00
PROVIDERS: Visit Provider Family Medicine
DX: E11.21 Type 2 diabetes mellitus with diabetic nephropathy (principal); K57.90 Diverticulosis of intestine, part unspecified, without perforation or abscess without bleeding; M62.81 Muscle weakness (generalized)
CPT/HCPCS: 36415; 80048

== ENCOUNTER → 2024-04-10 | Outpatient (REF) | payer MEDICAID, SELFPAY ==
[2024-04-10 11:14] LABS: Anion Gap 6 (5-15); BUN 54 mg/dL (7-18); BUN/Creat Ratio 25.2 RATIO (10-20); Calcium,Total 8.7 mg/dL (8.5-10.1); Chloride 111 mmol/L (98-107); Creatinine, Serum 2.14 mg/dL (0.55-1.02); EST Glomerular Filtration Rate 25 mL/min (>60); Est Glom Filt Rate - Afr Amer 30 mL/min (>60); Glucose 110 mg/dL (74-106); Potassium 4.5 mmol/L (3.5-5.1); Sodium Level 139 mmol/L (136-145)
== END | disposition home or self-care (01) ==
LOC: OLS.ACW100 05:00
PROVIDERS: Visit Provider Family Medicine
DX: E11.21 Type 2 diabetes mellitus with diabetic nephropathy (principal); K57.90 Diverticulosis of intestine, part unspecified, without perforation or abscess without bleeding
CPT/HCPCS: 36415; 80048

== ENCOUNTER → 2024-04-19 | Outpatient (REF) | payer MEDICAID, SELFPAY ==
[2024-04-19 07:18] LABS: Hematocrit 37.1 % (37-47); Hemoglobin 11.4 g/dL (12.0-15.0); Mean Corp Hgb Conc 30.7 g/dL (32-36); Mean Corpuscular Hgb 28.4 pg (27.0-32.0); Mean Corpuscular Volume 92.5 fL (81-99); Mean Platelet Vol. 9.9 fl (6.2-12.0); Platelet Count 318 K/mm3 (150-450); RBC Distribution Width CV 12.5 % (11.6-14.6); RBC Distribution Width SD 42.7 fl (35.1-43.9); Red Blood Count 4.01 M/mm3 (4.2-5.4)
[2024-04-19 07:32] LABS: Anion Gap 9 (5-15); BUN 54 mg/dL (7-18); BUN/Creat Ratio 24.9 RATIO (10-20); Calcium,Total 9.1 mg/dL (8.5-10.1); Chloride 110 mmol/L (98-107); Cholesterol 120 mg/dL (200); Creatinine, Serum 2.17 mg/dL (0.55-1.02); EST Glomerular Filtration Rate 24 mL/min (>60); Est Glom Filt Rate - Afr Amer 30 mL/min (>60); Glucose 201 mg/dL (74-106); High Density Lipoprotein 42 mg/dL; Sodium Level 141 mmol/L (136-145); Triglycerides 124 mg/dL; Very Low Density Lipoprotein 25 mg/dL (5-40)
[2024-04-19 09:03] LABS: Hemoglobin A1c 7.2 % (3.8-5.6)
== END | disposition home or self-care (01) ==
LOC: OLS.ACW100 05:00
PROVIDERS: Visit Provider Family Medicine
DX: E11.21 Type 2 diabetes mellitus with diabetic nephropathy (principal); Z79.899 Other long term (current) drug therapy
CPT/HCPCS: 36415; 80048; 80061; 83036; 84443; 85027

== ENCOUNTER → 2024-04-24 05:00 | Outpatient (REF) | payer MEDICAID, SELFPAY ==
[2024-04-24 10:43] LABS: Anion Gap 7 (5-15); BUN 65 mg/dL (7-18); BUN/Creat Ratio 27.1 RATIO (10-20); Calcium,Total 8.4 mg/dL (8.5-10.1); Chloride 109 mmol/L (98-107); EST Glomerular Filtration Rate 22 mL/min (>60); Est Glom Filt Rate - Afr Amer 26 mL/min (>60); Glucose 304 mg/dL (74-106); Potassium 5.1 mmol/L (3.5-5.1); Sodium Level 137 mmol/L (136-145)
== END ==
LOC: OLS.ACW100 05:00
PROVIDERS: Visit Provider Family Medicine
DX: N18.32 Chronic kidney disease, stage 3b (principal); E11.21 Type 2 diabetes mellitus with diabetic nephropathy; K57.90 Diverticulosis of intestine, part unspecified, without perforation or abscess without bleeding; M62.81 Muscle weakness (generalized); R27.9 Unspecified lack of coordination
CPT/HCPCS: 36415; 80048

== ENCOUNTER → 2024-04-26 05:00 | Outpatient (REF) | payer MEDICAID, SELFPAY ==
[2024-04-26 07:05] LABS: Hematocrit 37.6 % (37-47); Hemoglobin 11.9 g/dL (12.0-15.0); Mean Corp Hgb Conc 31.6 g/dL (32-36); Mean Corpuscular Hgb 29.7 pg (27.0-32.0); Mean Corpuscular Volume 93.8 fL (81-99); Mean Platelet Vol. 10.1 fl (6.2-12.0); Platelet Count 337 K/mm3 (150-450); RBC Distribution Width CV 12.7 % (11.6-14.6); RBC Distribution Width SD 43.2 fl (35.1-43.9); Red Blood Count 4.01 M/mm3 (4.2-5.4); White Blood Count 7.5 K/mm3 (4.4-11.0)
[2024-04-26 07:15] LABS: Anion Gap 6 (5-15); BUN 65 mg/dL (7-18); BUN/Creat Ratio 30.4 RATIO (10-20); Calcium,Total 8.7 mg/dL (8.5-10.1); Chloride 111 mmol/L (98-107); Creatinine, Serum 2.14 mg/dL (0.55-1.02); EST Glomerular Filtration Rate 25 mL/min (>60); Est Glom Filt Rate - Afr Amer 30 mL/min (>60); Glucose 167 mg/dL (74-106); Potassium 4.6 mmol/L (3.5-5.1); Sodium Level 140 mmol/L (136-145)
== END ==
LOC: OLS.ACW100 05:00
PROVIDERS: Visit Provider Family Medicine
DX: E11.21 Type 2 diabetes mellitus with diabetic nephropathy (principal); K57.90 Diverticulosis of intestine, part unspecified, without perforation or abscess without bleeding; M62.81 Muscle weakness (generalized); R27.9 Unspecified lack of coordination
CPT/HCPCS: 36415; 80048; 85027

== ENCOUNTER → 2024-05-03 04:00 | Outpatient (REF) | payer MEDICAID, SELFPAY ==
[2024-05-03 07:53] LABS: Hemoglobin A1c 7.6 % (3.8-5.6)
== END ==
LOC: OLS.ACW100 04:00
PROVIDERS: Referring Provider Family Medicine; Visit Provider Family Medicine
DX: E11.21 Type 2 diabetes mellitus with diabetic nephropathy (principal)
CPT/HCPCS: 36415; 83036

== ENCOUNTER → 2024-06-23 | Outpatient (REF) | payer MEDICAID, SELFPAY ==
[2024-06-23 08:43] LABS: Vancomycin, Trough Level 9.5 ug/mL (5.0-15.0)
== END | disposition home or self-care (01) ==
LOC: OLS.ACW100 05:00
PROVIDERS: Visit Provider Family Medicine
DX: E11.21 Type 2 diabetes mellitus with diabetic nephropathy (principal); K57.90 Diverticulosis of intestine, part unspecified, without perforation or abscess without bleeding; M62.81 Muscle weakness (generalized)
CPT/HCPCS: 36415; 80202

== ENCOUNTER → 2024-07-04 | Outpatient (REF) | payer MEDICAID, SELFPAY ==
[2024-07-04 08:21] LABS: Hematocrit 36.5 % (37-47); Hemoglobin 11.9 g/dL (12.0-15.0); Mean Corp Hgb Conc 32.6 g/dL (32-36); Mean Corpuscular Hgb 29.7 pg (27.0-32.0); Mean Platelet Vol. 9.8 fl (6.2-12.0); Platelet Count 297 K/mm3 (150-450); RBC Distribution Width CV 13.2 % (11.6-14.6); RBC Distribution Width SD 43.6 fl (35.1-43.9); Red Blood Count 4.01 M/mm3 (4.2-5.4); White Blood Count 7.5 K/mm3 (4.4-11.0)
[2024-07-04 08:46] LABS: Pro- Brain NATRIURETIC PEPTIDE 357 pg/mL (<=900); Troponin T High Sensitivity 33 ng/L (<=14)
[2024-07-04 08:48] LABS: ALB/GLOB Ratio 1.1 RATIO (0.9-2.4); AST(SGOT) 23 U/L (<=31); Alanine Aminotransfer ALT/SGPT 10 U/L (<=34); Albumin, Serum 3.6 g/dL (3.4-4.8); Alkaline Phosphatase 66 U/L (35-104); Anion Gap 12 (5-15); BUN 52 mg/dL (4-19); BUN/Creat Ratio 23.6 RATIO (10-20); Carbon Dioxide 20.5 mmol/L (21.0-32.0); Chloride 108 mmol/L (98-108); Creatinine, Serum 2.22 mg/dL (0.70-1.20); EST Glomerular Filtration Rate 24 (>60); Globulin 3.4 g/dL (2.2-4.2); Glucose 88 mg/dL (70-99); Potassium 4.3 mmol/L (3.3-5.1); Sodium Level 141 mmol/L (133-145); Total Bilirubin 0.32 mg/dL (0.00-1.30)
== END | disposition home or self-care (01) ==
LOC: OLS.ACW100 04:00
PROVIDERS: Referring Provider Family Medicine; Visit Provider Family Medicine
DX: E11.21 Type 2 diabetes mellitus with diabetic nephropathy (principal); K57.90 Diverticulosis of intestine, part unspecified, without perforation or abscess without bleeding; M62.81 Muscle weakness (generalized); R27.9 Unspecified lack of coordination
CPT/HCPCS: 36415; 80053; 83880; 84484; 85027

== ENCOUNTER → 2024-07-17 | Outpatient (REF) | payer MEDICAID, SELFPAY ==
[2024-07-17 09:22] LABS: Hematocrit 33.8 % (37-47); Hemoglobin 10.9 g/dL (12.0-15.0); Mean Corp Hgb Conc 32.2 g/dL (32-36); Mean Corpuscular Hgb 29.5 pg (27.0-32.0); Mean Corpuscular Volume 91.6 fL (81-99); Platelet Count 286 K/mm3 (150-450); RBC Distribution Width CV 12.5 % (11.6-14.6); RBC Distribution Width SD 41.5 fl (35.1-43.9); Red Blood Count 3.69 M/mm3 (4.2-5.4); White Blood Count 6.7 K/mm3 (4.4-11.0)
[2024-07-17 09:51] LABS: Anion Gap 10 (5-15); BUN 52 mg/dL (4-19); Calcium,Total 8.8 mg/dL (7.6-11.0); Carbon Dioxide 23.1 mmol/L (21.0-32.0); Chloride 107 mmol/L (98-108); Creatinine, Serum 1.87 mg/dL (0.70-1.20); EST Glomerular Filtration Rate 30 (>60); Glucose 254 mg/dL (70-99); Potassium 5.1 mmol/L (3.3-5.1); Sodium Level 140 mmol/L (133-145)
[2024-07-17 13:28] LABS: Hemoglobin A1c 7.5 % (<=5.6)
== END | disposition home or self-care (01) ==
LOC: OLS.ACW100 05:00
PROVIDERS: Visit Provider Family Medicine
DX: E11.21 Type 2 diabetes mellitus with diabetic nephropathy (principal); K57.90 Diverticulosis of intestine, part unspecified, without perforation or abscess without bleeding; M62.81 Muscle weakness (generalized); R27.9 Unspecified lack of coordination
CPT/HCPCS: 36415; 80048; 83036; 85027

== ENCOUNTER → 2024-07-19 | Outpatient (REF) | payer MEDICAID, SELFPAY ==
[2024-07-19 08:39] LABS: Absolute Lymphocyte Count 1.65 X10^3/uL (0.83-4.51); Absolute Neutrophil Count 3.7 X10^3/uL (2.0-7.7); Basophil# 0.07 X10^3/uL; Basophil% 1.1 % (0-1); Eosinophil# 0.31 X10^3/uL; Eosinophils% 4.7 % (0-5); Hematocrit 32.5 % (37-47); Hemoglobin 10.4 g/dL (12.0-15.0); Lymphocyte # 1.65 X10^3/ul (0.83-4.51); Mean Corpuscular Hgb 29.1 pg (27.0-32.0); Mean Platelet Vol. 9.9 fl (6.2-12.0); Monocyte% 12.1 % (0-10); NRBC Flagged by Analyzer 0 % (0-5); Neutrophil # 3.72 X10^3/uL (2.7-7.7); Neutrophil % 56.3 % (47-70); Platelet Count 288 K/mm3 (150-450); RBC Distribution Width CV 12.6 % (11.6-14.6); RBC Distribution Width SD 41.5 fl (35.1-43.9); Red Blood Count 3.57 M/mm3 (4.2-5.4); White Blood Count 6.6 K/mm3 (4.4-11.0)
[2024-07-19 08:52] LABS: Hemoglobin A1c 7.6 % (<=5.6)
[2024-07-19 08:59] LABS: PTHIN 28 pg/mL (11-61)
[2024-07-19 09:14] LABS: Color, Urine Yellow (Yellow); Glucose, Dipstick 250 mg/dl (Normal); Ketone-Dipstick Negative (Negative); Leukocyte Esterase-Dipstick 25 /ul (Negative); Nitrite-Dipstick Negative (Negative); Occult Blood-Urine 10 /ul (Negative); Urine Bilirubin Dipstick Negative (Negative); Urine Clarity Clear (Clear); Urine Urobilinogen Normal (Normal)
[2024-07-19 09:15] LABS: Albumin, Serum 3.3 g/dL (3.4-4.8); Anion Gap 10 (5-15); BUN 49 mg/dL (4-19); BUN/Creat Ratio 26.5 RATIO (10-20); Calcium,Total 8.8 mg/dL (7.6-11.0); Carbon Dioxide 22.3 mmol/L (21.0-32.0); Chloride 107 mmol/L (98-108); Creatinine, Serum 1.83 mg/dL (0.70-1.20); EST Glomerular Filtration Rate 31 (>60); Glucose 227 mg/dL (70-99); Phosphorus 4.4 mg/dL (2.7-4.5); Potassium 4.9 mmol/L (3.3-5.1); Sodium Level 139 mmol/L (133-145); Vitamin D,25 Hydroxy 14.1 ng/mL (30-100)
== END | disposition home or self-care (01) ==
LOC: OLS.ACW100 05:00
PROVIDERS: Visit Provider Family Medicine
DX: E11.21 Type 2 diabetes mellitus with diabetic nephropathy (principal); K57.90 Diverticulosis of intestine, part unspecified, without perforation or abscess without bleeding; M62.81 Muscle weakness (generalized)
CPT/HCPCS: 36415; 80069; 81002; 82306; 83036; 83970; 85025; 87077; 87086; 87088; 87186

== ENCOUNTER → 2024-08-16 | Outpatient (REF) | payer MEDICAID, SELFPAY ==
[2024-08-16 10:30] LABS: Mucous, Urine 0 SEEN /hpf (<or=2+)
[2024-08-16 11:05] LABS: Color, Urine Yellow (Yellow); Glucose, Dipstick 250 mg/dl (Normal); Ketone-Dipstick Negative (Negative); Leukocyte Esterase-Dipstick Negative /ul (Negative); Nitrite-Dipstick Negative (Negative); Occult Blood-Urine Negative /ul (Negative); Protein-Dipstick 500 mg/dl (Negative); Urine Bilirubin Dipstick Negative (Negative); Urine Clarity Clear (Clear); Urine Urobilinogen Normal (Normal)
[2024-08-16 12:30] LABS: Red Blood Cells-Urine 0-5 SEEN /hpf (0-5); Squamous Epithelial Cells - UA 0-5 SEEN /hpf (5-10); White Blood Cells 0-5 SEEN /hpf (0-5)
[2024-08-16 12:32] LABS: Bacteria RARE /hpf (None Seen)
== END | disposition home or self-care (01) ==
LOC: OLS.ACW100 05:00
PROVIDERS: Visit Provider Family Medicine
DX: E11.21 Type 2 diabetes mellitus with diabetic nephropathy (principal)
CPT/HCPCS: 81001; 87077; 87086; 87088; 87186

== ENCOUNTER → 2024-09-20 05:00 | Outpatient (REF) | payer MEDICAID, SELFPAY ==
--- OUTSIDE RECORDS SUMMARY | 2024-09-20 04:55 | XMS RPT_ITS | CCD ---
Author Organization [facility] Care Team Providers Care Residential Air Sealing Technician Name Role Phone IMCA Primary Care Unavailable ANUPAM WILLIS Admitting Unavailable KEITH ALMARAZ Consulting Unavailab ROGERIO Mckeon Attending Unavailable IMSHAHRZAD Primary Care Unavailable BHAVANA DEWITT Attending Unavailable ANUPAM WILLIS Admitting UnavailROGERIO Bah Attending Unavailable KEITH ALMARAZ Consulting Unavailab BHAVANA Tam Attending Unavaila Kristel Skelton Referring Unavailable Kristel Nunes Primary Care Unavailable Familia Mckeon Attending Unavailable CORY LA Admitting Unavailable CORY LA Attending Unavailable KRISTEL NUNES Primary Care Unavailable KRUPA STEINBERG Admitting Unavailable KRUPA STEINBERG Attending Unavailable KRISTEL NUNES Primary Care Unavailable HANANE MOODY Admitting Unavailable HANANE MOODY Attending Unavailable IESHA NUNES Primary Care Unavailable JERAMY JOHNSON Admitting Unavailable JERAMY JOHNSON Attending Unavailable IESHA NUNES Primary Care Unavailable Kristel Nunes MD Primary Care Provider [phone] Lex Roca Primary Care Provider [phone] Lex Roca MD Primary Care Provider Lex Roca Primary Care Provider [phone] LEX ROCA Primary Care Unavailable JERAMY ALLEN Attending Unavailable LEX ROCA Primary Care Unavailable GRZEGORZ GUILLEN Attending Unavailable LEX ROCA Primary Care Unavailable LUDY, OMI Admitting Unavailable JERAYM SY Attending Unavailable LEX ROCA Primary Care Unavailable Marcel CHEN Referring Unavailable Marcel CHEN Attending Unavailable LEX ROCA Primary Care Unavailable Marah HERNANDEZ, Lex Attending Provider UnavailSanjuana HERNANDEZ, Lex Referring Provider Unavailcarissa e Marah HERNANDEZ, Lex Attending Unavailable Marah OLS, Lex Attending Unavailable Marah OLS, Lex Attending Unavailable Marah HERNANDEZ, Lex Referring Unavailable Marah OLS, Lex Attending Unavailable Marah OLS, Lex Attending Unavailable Marah OLS, Lex Attending Unavailable Marah OLS, Lex Referring Unavailable Marah OLS, Lex Attending Unavailable Marah OLS, Lex Attending Unavailable Marah OLS, Lex Attending Unavailable Marah HERNANDEZ, Lex Referring Unavailable Marah HERNANDEZ, Lex Attending Unavailable Marah HERNANDEZ, Lex Referring Unavailable Marah HERNANDEZ, Lex Attending Unavailable Marah OLS, Lex Attending Unavailable Marah OLS, Lex Attending Unavailable Marah OLS, Lex Attending Unavailable Marah OLS, Lex Attending Unavailable Marah OLS, Lex Referring Unavailable Marah OLS, Lex Attending Unavailable Marah MARY, Lex Attending Unavailable Marah OLS, Lex Attending Unavailable Marah OLS, Lex Attending Unavailable Allergies Allergy Classification Reported Allergen(s) Allergy Type Date of Onset Reaction(s) Facility Penicillins (antibiotic) (2 sources) Penicillins Drug Allergy 8 Unknown [facility] (3 sources) Penicillin; Translations: [PENICILLIN] Drug Allergy 8 [facility] (6 sources) Penicillins Propensity to adverse reactions to drug 8 Unknown [facility] Medications Current Medications Medication Drug Class(es) Dates Sig (Normalized) Sig (Original) acetaminophen 325 mg rectal suppository (8 sources) acetaminophen (Tylenol) 325 MG suppository Insert into the rectum. Active amLODIPine 2.5 mg oral tablet (1 source) Dihydropyridine Calcium Channel Ej take 4 tablets by mouth once daily amLODIPine (NORVASC) 2.5 MG tablet Take 10 mg by mouth daily 0 Active aspirin 81 mg delayed release oral tablet (9 sources) Platelet Aggregation Inhibitor, Nonsteroidal Anti-inflammatory Drug take 1 tablet by mouth once daily aspirin 81 MG EC tablet Take 81 mg by mouth daily. Active take 1 tablet by mouth once justin y aspirin 81 MG tablet Take 81 mg by mouth daily 0 Active atorvastatin 20 mg oral tablet (9 sources) HMG-CoA Reductase Inhibitor take 1 tablet by mouth once daily atorvastatin (Lipitor) 20 MG tablet Take 20 mg by mouth daily. Active atorvastatin (LI PITOR) 40 MG tablet Take 20 mg by mouth daily 0 Active D-MANNOSE PO (8 sources) D-MANNOSE PO Joon e by mouth. Active D-MANNOSE PO Joon e by mouth. 0 Active dicyclomine hydrochloride 20 mg oral tablet (1 source) Anticholinergic Start: 07-18-2018 take 1 tablet by mouth four times daily as needed for pain dicyclomine (BENTYL) 20 MG tablet Take 1 tablet by mouth 4 times daily as needed (abdominal pain) 24 tablet 1 07/18/2018 Active docusate sodium 50 mg / sennosides, half-way 8.6 mg oral tablet (8 sources) take 8.6-50 mg by mouth once daily senna-docusate (Roxanne-Colace) 8.6-50 MG tablet Take 1 tablet by mouth daily. Active dulaglutide (Trulicity) 3 MG/0.5ML solution pen-injector (8 sources) inject 3 mg by subcutaneous injection every week dulaglutide (Trulicity) 3 MG/0.5ML solution pen-injector Inject 3 mg under the skin 1 (one) time per week. Active inject 3 mg by subcu taneous injection every week dulaglutide (Trulicity) 3 MG/0.5ML solution pen-injector Inject 3 mg under the skin 1 (one) time per week. 0 Active escitalopram 10 mg oral tablet (8 sources) Serotonin Reuptake Inhibitor take 1 tablet by mouth once daily escitalopram (Lexapro) 10 MG tablet Take 10 mg by mouth daily. Active fenofibrate 67 mg oral capsule (9 sources) Peroxisome Proliferator Receptor alpha Agonist take 1 capsule by mouth once daily at breakfast fenofibrate micronized (Lofibra) 67 MG capsule Take 67 mg by mouth daily (with breakfast). Active gabapentin 400 mg oral capsule (9 sources) Anti-epileptic Agent take 1 capsule by mouth three times daily gabapentin (Neurontin) 400 MG capsule Take 400 mg by mouth 3 times daily. Active gabapentin (NEUR ONTIN) 600 MG tablet Take 600 mg by mouth 3 times daily.. 0 Active hydrALAZINE hydrochloride 50 mg oral tablet (8 sources) Arteriolar Vasodilator hydrALAZI NE (Apresoline) 50 MG tablet Take by mouth. Active 3 ml insulin glargine 100 unt/ml pen injector (9 sources) Insulin Analog Start: 07-18-2018 insulin glargine (BASAGLAR KWIKPEN) 100 UNIT/ML injection pen Inject 90 Units into the skin every morning (before breakfast) 5 pen 3 07/18/2018 Active inject 60 [IU] by [place] bcutaneous injection once daily insulin glargine (Lantus) 100 UNIT/ML injection Inject 60 Units under the skin Nightly. Active levothyroxine sodium 0.075 mg oral tablet (8 sources) l-Thyroxine levothyroxine (Synthroid, Levoxyl) 75 MCG tablet Take by mouth every morning (before breakfast). Active 3 ml liraglutide 6 mg/ml pen injector (1 source) GLP-1 Receptor Agonist Liraglutide (VICTOZA ) 18 MG/3ML SOPN SC injection Inject 0.6 mg into the skin nightly 0 Active lisinopril 40 mg oral tablet (9 sources) Angiotensin Converting Enzyme Inhibitor take 1 tablet by mouth once daily lisinopril 40 MG tablet Take 40 mg by mouth daily. Active take 10 mg by mouth once daily l isinopril (PRINIVIL;ZESTRIL) 40 MG tablet Take 10 mg by mouth daily 0 Active metFORMIN hydrochloride 500 mg oral tablet (9 sources) Biguanide Start: 07-18-2018 take 1 tablet by mouth twice daily at mealtime metFORMIN (GLUCOPHAGE) 500 MG tablet Take 1 tablet by mouth 2 times daily (with meals) 60 tablet 3 07/18/2018 Active 24 hr metoprolol succinate 100 mg extended release oral tablet (9 sources) beta-Adrenergic Ej take 1 tablet by mouth every twenty-four hours metoprolol succinate XL (Toprol-XL) 100 MG 24 hr tablet Take by mouth. Do not crush or chew. Active metoprolol tartr ate (LOPRESSOR) 25 MG tablet Take 12.5 mg by mouth 2 times daily 0 Active montelukast 10 mg oral tablet (1 source) Leukotriene Receptor Antagonist take 1 tablet by mouth once daily montelukast (SINGULAIR) 10 MG tablet Take 10 mg by mouth nightly 0 Active rOPINIRole 0.5 mg oral tablet (8 sources) Nonergot Dopamine Agonist take 1 tablet by mouth three times daily rOPINIRole (Requip) 0.5 MG tablet Take 0.5 mg by mouth 3 times daily. Active Completed/Discontinued Medications Medication Drug Class(es) Dates Sig (Normalized) Sig (Original) albuterol 0.833 mg/ml / ipratropium bromide 0.167 mg/ml inhalation solution (2 sources) Anticholinergic, beta2-Adrenergic Agonist Start: 09-07-2023 End: 09-07-2023 3 mL, Nebulization, Once, On Wed09/07/23 at 1800, For 1 dose methylPREDNISolone 125 mg injection (2 sources) Corticosteroid Start: 09-07-2023 End: 09-07-2023 125 mg, IntraVENous, Once, On Wed09/07/23 at 1800, For 1 dose 1 ml morphine sulfate 4 mg/ml cartridge (2 sources) Opioid Agonist Start: 09-07-2023 End: 09-07-2023 take 1 dose by mouth every hour 4 mg, IntraVENous, Once, On Wed09/07/23 at 2155, For 1 dose, If oral and IV narcotics ordered, use oral first and only use IV if oral is ineffective or cannot take oral. Do Not give oral and IV within 1 hour of each other unless specifically ordered. 2 ml ondansetron 2 mg/ml injection (3 sources) Serotonin-3 Receptor Antagonist Start: 09-07-2023 End: 09-07-2023 4 mg, IntraVENous, Once, On Wed09/07/23 at 2155, For 1 dose Start: 07-18-2018 take 1 tablet by magan th once daily as needed for nausea ondansetron (ZOFRAN) 4 MG tablet Take 1 tablet by mouth daily as needed for Nausea or Vomiting 30 tablet 0 07/18/2018 Active 50 ml sodium chloride 9 mg/m l injection (8 sources) Start: 09-07-2023 End: 09-07-2023 1,000 mL, IntraVENous, at 1, 000 mL/hr, Administer over 1 Hours, Once, On Wed09/07/23 at 2135, For 1 dose Start: 12-11-2022 End: 12-11-2022 sodium chloride 0.9% (NS) fl ush 10 mL Start: 12-11-2022 End: 12-11-2022 sodium chloride 0.9% (NS) fl ush 10 mL Start: 12-11-2022 End: 12-11-2022 sodium chloride 0.9 % infusi on Start: 12-11-2022 End: 12-11-2022 sodium chloride 0.9% (NS) fl us 10 mL Problems Active Problems Problem Classification Problem Date Documented Date Episodic/Chronic Abdominal hernia (2 sources) Diaphragmatic hernia without obstruction or gangrene; Translations: [Diaphragmatic hernia without obstruction or gangrene] Onset: 07-17-2018 Episodic Allergic reactions (3 sources) Allergy status to penicillin; Translations: [Allergy status to penicillin] Onset: 07-17-2018 Episodic Asthma (2 sources) Unspecified asthma, uncomplicated; Translations: [Unspecified asthma, uncomplicated] Onset: 07-17-2018 Chronic Chronic kidney disease (9 sources) Chronic kidney disease, unspecified; Translations: [Chronic kidney disease] Onset: 05-14-2018 09-07-2023 Chronic Chronic kidney disease (1 source) Chronic kidney disease; Translations: [Chronic kidney disease, stage 3b] Onset: 05-01-2024 Chronic ulcer of skin (2 sources) 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; Translations: [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 (HCC)] Onset: 07-08-2024 Chronic Coronary atherosclerosis and other heart disease (13 sources) Atherosclerotic heart disease of [place] coronary artery without angina pectoris; Translations: [Coronary arteriosclerosis] Onset: 12-11-2017 12-19-2017 Chronic Crushing injury or internal injury (1 source) Crushing injury of right index finger, initial encounter; Translations: [CRUSHING INJ RT INDEX FINGER INIT] Onset: 08-22-2018 Episodic Diabetes mellitus with complications (20 sources) Type 2 diabetes mellitus with hyperglycemia; Translations: [Type 2 diabetes mellitus with other specified complication] Onset: 12-10-2017 Resolved: 12-19-2017 12-19-2017 Chronic Diabetes mellitus with complications (3 sources) Type 2 diabetes mellitus with ketoacidosis without coma; Translations: [Type 2 diabetes mellitus with diabetic neuropathy, unspecified] Onset: 03-01-2018 Diabetes mellitus without complication (1 source) Type 2 diabetes mellitus without complications; Translations: [TYPE 2 DM WITHOUT COMPLICATIONS] Onset: 08-17-2018 Chronic Diabetes mellitus without complication (2 sources) Hyperglycemia, unspecified; Translations: [Hyperglycemia, unspecified] Onset: 07-13-2024 Episodic Disorders of lipid metabolism (1 source) Hyperlipidemia, unspecified; Translations: [HYPERLIPIDEMIA UNSPECIFIED] Onset: 08-17-2018 Chronic Diverticulosis and diverticulitis (4 sources) Diverticulosis of large intestine without perforation or abscess without bleeding; Translations: [Diverticulosis of intestine, part unspecified, without perforation or abscess without bleeding] Onset: 07-17-2018 Chronic E Codes: Fall (2 sources) Unspecified fall, initial encounter; Translations: [Unspecified fall, initial encounter] Onset: 07-12-2024 Episodic Essential hypertension (16 sources) Essential (primary) hypertension; Translations: [Hypertensive disorder] Onset: 12-11-2017 07-17-2018 Chronic External cause codes: Fall (1 source) Other fall on same level, initial encounter; Translations: [OTHER FALL ON SAME LEVEL INITIAL] Onset: 05-14-2018 External cause codes: Natural/environment (1 source) Exposure to other specified factors, initial encounter; Translations: [EXPOSURE OTHER SPEC FACTORS INITIAL] Onset: 08-22-2018 External cause codes: Other specified and classifiable (1 source) Caught, crushed, jammed, or pinched between moving objects, initial encounter; Translations: [CAUGHT CRUSH/PINCH BTWN MOV OBJ INT] Onset: 08-17-2018 Hypertension with complications and secondary hypertension (1 source) Hypertensive chronic kidney disease with stage 1 through stage 4 chronic kidney disease, or unspecified chronic kidney disease; Translations: [HTN CKD W/STAGE 1-4 CKD/UNS CKD] Onset: 05-14-2018 Chronic Nonspecific chest pain (2 sources) Chest pain, unspecified; Translations: [Chest pain, unspecified] Onset: 07-12-2024 Episodic Open wounds of extremities (1 source) Unspecified open wound of right index finger without damage to nail, initial encounter; Translations: [UNS OPN WND RT IF W/O DMG NAIL INIT] Onset: 08-17-2018 Episodic Open wounds of extremities (2 sources) Unspecified open wound, left lower leg, initial encounter; Translations: [Unspecified open wound, left lower leg, initial encounter] Onset: 07-13-2024 Episodic Other aftercare (3 sources) terminal gauger (current) use of aspirin; Translations: [terminal gauger (current) use of aspirin] Onset: 07-17-2018 Episodic Other aftercare (1 source) Other correction (current) drug therapy; Translations: [OTH CORRECTION CURRENT DRUG THERAPY] Onset: 08-17-2018 Episodic Other aftercare (3 sources) terminal gauger (current) use of oral hypoglycemic drugs; Translations: [group home (current) use of oral hypoglycemic drugs] Onset: 07-17-2018 Other connective tissue disease (2 sources) Pain in right leg; Translations: [Pain in right leg] Onset: 07-03-2024 Episodic Other connective tissue disease (2 sources) Pain in left leg; Translations: [Pain in left leg] Onset: 07-03-2024 Episodic Other connective tissue disease (2 sources) Muscle weakness (generalized); Translations: [Muscle weakness (generalized)] Onset: 08-11-2024 Episodic Other diseases of kidney and ureters (2 sources) Disorder of kidney and ureter, unspecified; Translations: [Disorder of kidney and ureter, unspecified] Onset: 07-17-2018 Episodic Other endocrine disorders (11 sources) Hypoglycemia; Translations: [Hypoglycemia, unspecified] Onset: 12-16-2017 12-19-2017 Chronic Other injuries and conditions due to external causes (1 source) Unspecified injury of left wrist, hand and finger(s), initial encounter; Translations: [UNS INJ LT WRIST HAND FINGERS INIT] Onset: 08-17-2018 Episodic Other injuries and conditions due to external causes (1 source) Unspecified injury of right wrist, hand and finger(s), initial encounter; Translations: [UNS INJ RT WRIST HAND FINGERS INIT] Onset: 08-22-2018 Episodic Other lower respiratory disease (8 sources) Dyspnea; Translations: [Shortness of breath] Onset: 09-07-2023 09-07-2023 Episodic Other nervous system disorders (11 sources) Neuropathy; Translations: [Polyneuropathy, unspecified] Onset: 12-19-2017 12-19-2017 Chronic Other nervous system disorders (2 sources) Other chronic pain; Translations: [Other chronic pain] Onset: 07-13-2024 Chronic Other nervous system disorders (2 sources) Unspecified lack of coordination; Translations: [Unspecified lack of coordination] Onset: 08-11-2024 Episodic Other non-traumatic joint disorders (2 sources) Pain in right hip; Translations: [Pain in right hip] Onset: 07-12-2024 Episodic Other non-traumatic joint disorders (2 sources) Pain in left hip; Translations: [Pain in left hip] Onset: 07-12-2024 Episodic Other nutritional; endocrine; and metabolic disorders (2 sources) Morbid (severe) obesity due to excess calories; Translations: [Morbid (severe) obesity due to excess calories] Onset: 07-17-2018 Chronic Other nutritional; endocrine; and metabolic disorders (2 sources) Body mass index (BMI) 40.0-44.9, adult; Translations: [Body mass index (BMI) 40.0-44.9, adult] Onset: 07-17-2018 Chronic Other screening for suspected conditions (not mental disorders or infectious disease) (5 sources) Patient encounter status; Translations: [Encounter for screening mammogram for malignant neoplasm of breast] 05-10-2023 Episodic Residual codes; unclassified (2 sources) Obstructive sleep apnea (adult) (pediatric); Translations: [Obstructive sleep apnea (adult) (pediatric)] Onset: 07-17-2018 Chronic Screening and history of mental health and substance abuse codes (2 sources) Personal history of nicotine dependence; Translations: [Personal history of nicotine dependence] Onset: 07-17-2018 Episodic Septicemia (except in labor) (3 sources) Septicemia (except in labor); Translations: [Sepsis, unspecified organism] Onset: 03-01-2018 Skin and subcutaneous tissue infections (3 sources) Local infection of the skin and subcutaneous tissue, unspecified; Translations: [Cellulitis of left lower limb] Onset: 08-17-2018 Episodic Spondylosis; intervertebral disc disorders; other back problems (3 sources) Low back pain; Translations: [Dorsalgia, unspecified] Onset: 05-14-2018 Episodic Unclassified (1 source) Low back pain, unspecified; Translations: [Low back pain, unspecified] Onset: 07-03-2024 Varicose veins of lower extremity (2 sources) Varicose veins of left lower extremity with ulcer of unspecified site; Translations: [Varicose veins of left lower extremity with ulcer of unspecified site (HCC)] Onset: 07-08-2024 Episodic Past or Other Problems Problem Classification Problem Date Documented Date Episodic/Chronic Abdominal pain (20 sources) Unspecified abdominal pain; Translations: [Left lower quadrant pain] Onset: 06-30-2018 07-18-2018 Episodic Acute and unspecified renal failure (12 sources) Acute kidney failure, unspecified; Translations: [Acute injury of kidney] Onset: 12-10-2017 12-10-2017 Episodic Conditions associated with dizziness or vertigo (14 sources) Dizziness and giddiness; Translations: [Lightheadedness] Onset: 05-14-2018 07-18-2018 Episodic Diseases of white blood cells (1 source) Leukocytosis; Translations: [Elevated white blood cell count, unspecified] Onset: 12-11-2017 Resolved: 12-19-2017 12-19-2017 Chronic Fluid and electrolyte disorders (1 source) Dehydration; Translations: [Dehydration] Onset: 12-10-2017 Resolved: 01-09-2018 01-09-2018 Episodic Malaise and fatigue (11 sources) Asthenia; Translations: [Weakness] Onset: 12-10-2017 12-10-2017 Episodic Nausea and vomiting (15 sources) Nausea with vomiting, unspecified; Translations: [Nausea and vomiting] Onset: 06-27-2018 07-17-2018 Episodic Other connective tissue disease (1 source) Rhabdomyolysis; Translations: [Rhabdomyolysis] Onset: 12-11-2017 Resolved: 12-19-2017 12-19-2017 Episodic Other hematologic conditions (1 source) Protein level - finding; Translations: [Other specified abnormalities of plasma proteins] Onset: 12-10-2017 Resolved: 01-09-2018 01-09-2018 Episodic Other inflammatory condition of skin (11 sources) Intertrigo; Translations: [Erythema intertrigo] Onset: 12-19-2017 12-19-2017 Episodic Other injuries and conditions due to external causes (1 source) Unspecified injury of lower back, initial encounter; Translations: [UNS INJURY LOWER BACK INITIAL] Onset: 05-14-2018 Episodic Superficial injury; contusion (2 sources) Contusion of left knee, initial encounter; Translations: [Contusion of left hip, initial encounter] Onset: 05-14-2018 Episodic Unclassified (1 source) Low back pain, unspecified; Translations: [Low back pain, unspecified] Onset: 07-03-2024 Results Test Name Value Interpretation Reference Range Facility Absolute lymphocyte countOrd ered By: Lex Roca on 07-19-2024 Lymphocytes Auto (Unsp spec) [#/Vol] 1.65 10*3/uL 0.83-4.51 [facility] Absolute neutrophil countOrd ered By: Lex Roca on 07-19-2024 Neutrophils (Bld) [#/Vol] 3.7 10*3/uL 2.0-7.7 [facility] Anion gap in Serum or Plasma Ordered By: Lex Roca on 07-19-2024 Anion gap [Moles/Vol] 10 mmol/L 5-15 [facility] Automated lymphocyte count a s percentage of total leukocytesOrdered By: Lex Roca on 07-19-2024 Lymphocytes/100 WBC Auto (Unsp spec) 25.0 % 19-41 [facility] BUN/creatinine ratioOrdered By: Lex Roca on 07-19-2024 Urea nitrogen/Creatinine [Mass ratio] 26.5 mg/mg High 10-20 [facility] Basophil percentageOrdered B y: Lex Roca on 07-19-2024 Basophils/100 WBC (Bld) 1.1 % High 0-1 [facility] Bilirubin Test strip Ql (U)O rdered By: Lex Roca on 07-19-2024 Bilirubin Ql (U) Negative Negative [facility] Carbon dioxide, total [Moles /volume] in Central venous bloodOrdered By: Lex Roca on 07-19-2024 CO2 [Moles/Vol] 22.3 mmol/L 21.0-32.0 [facility] Chloride assayOrdered By: Sony Roca on 07-19-2024 Chloride [Moles/Vol] 107 mmol/L 98-108 [facility] Eosinophil percentageOrdered By: Lex Roca on 07-19-2024 Eosinophils/100 WBC (Bld) 4.7 % 0-5 [facility] Erythrocyte distribution wid th ratioOrdered By: Lex Roca on 07-19-2024 Erythrocyte distribution width (RBC) [Ratio] 12.6 % 11.6-14.6 [facility] Erythrocyte distribution wid th standard deviationOrdered By: Lex Roca on 07-19-2024 Erythrocyte distribution width (RBC) [Ratio] 41.5 fl 35.1-43.9 [facility] Glomerular filtration rate ( GFR) estimation/1.73 sq m using serum, plasma, or whole bOrdered By: Lex Roca on 07-19-2024 GFR/1.73 sq M.predicted among non-blacks MDRD (S/P/Bld) [Vol rate/Area] 31 mL/min/{1.73_m2} Low >60 [facility] Comment on above: mL/min/1.73m2 CKD-EP I Creatinine Equation (2020) Hematocrit Auto (Bld) [Volum e fraction]Ordered By: Lex Roca on 07-19-2024 Hematocrit (Bld) [Volume fraction] 32.5 % Low 37-47 [facility] Hemoglobin A1c percentageOrd ered By: Lex Roca on 07-19-2024 HbA1c (Bld) [Mass fraction] 7.6 % High <5.7 [facility] Comment on above: Normal < 5.7 % Predi abetic 5.7 - 6.4 % Diabetic >or= 6.5 % Please note range changes. Hemoglobin measurementOrdere d By: Lex Roca on 07-19-2024 Hemoglobin (Bld) [Mass/Vol] 10.4 g/dL Low 12.0-15.0 [facility] Immature granulocytes/100 WB C Auto (Bld)Ordered By: Lex Roca on 07-19-2024 Immature granulocytes/100 WBC (Bld) 0.800 % 0.0-0.9 [facility] Comment on above: IG% - Immature Granu locytes (promyelocytes, myelocytes and metamyelocytes) > 1% indicates that a LEFT SHIFT is Present. Ketones Test strip Ql (U)Ord ered By: Lex Roca on 07-19-2024 Ketones Ql (U) Negative Negative [facility] MCV (mean corpuscular volume ) determinationOrdered By: Lex Roca on 07-19-2024 MCV (RBC) [Entitic vol] 91.0 fL 81-99 [facility] Mean corpuscular hemoglobin (MCH) determinationOrdered By: Lex Roca on 07-19-2024 MCH (RBC) [Entitic mass] 29.1 pg 27.0-32.0 [facility] Mean corpuscular hemoglobin concentration (MCHC) determinationOrdered By: Lex Roca on 07-19-2024 MCHC (RBC) [Mass/Vol] 32.0 g/dL 32-36 [facility] Mean platelet volume determi nationOrdered By: Lex Roca on 07-19-2024 Platelet mean volume (Bld) [Entitic vol] 9.9 fL 6.2-12.0 [facility] Monocyte percentageOrdered B y: Lex Roca on 07-19-2024 Monocytes/100 WBC (Bld) 12.1 % High 0-10 [facility] Neutrophil percentageOrdered By: Lex Roca on 07-19-2024 Neutrophils/100 WBC (Bld) 56.3 % 47-70 [facility] Nitrite Test strip Ql (U)Ord ered By: Lex Roca on 07-19-2024 Nitrite Ql (U) Negative Negative [facility] Nucleated red blood cell per centageOrdered By: Lex Roca on 07-19-2024 Nucleated RBC/100 WBC (Bld) [Ratio] 0 % 0-5 [facility] Platelet countOrdered By: Sony Roca on 07-19-2024 Platelets (Bld) [#/Vol] 288 10*3/uL 150-450 [facility] Potassium measurement (mass/ volume)Ordered By: Lex Roca on 07-19-2024 Potassium (Unsp spec) [Mass/Vol] 4.9 mmol/L 3.3-5.1 [facility] Protein Test strip Ql (U)Ord ered By: Lex Roca on 07-19-2024 Protein Ql (U) TNP [facility] Comment on above: Test not performed RBC Auto (Bld) [#/Vol]Ordere d By: Lex Roca on 07-19-2024 RBC (Bld) [#/Vol] 3.57 10*6/uL Low 4.2-5.4 [facility] Serum creatinine measurement (mass/volume)Ordered By: Lex Roca on 07-19-2024 Creatinine [Mass/Vol] 1.83 mg/dL High 0.70-1.20 [facility] Serum glucose measurement (m ass/volume)Ordered By: Lex Roca on 07-19-2024 Glucose [Mass/Vol] 227 mg/dL High 70-99 [facility] Serum or plasma albumin aba urement (mass/volume)Ordered By: Lex Roca on 07-19-2024 Albumin [Mass/Vol] 3.3 g/dL Low 3.4-4.8 [facility] Serum or plasma calcium aba urement (mass/volume)Ordered By: Lex Roca on 07-19-2024 Calcium [Mass/Vol] 8.8 mg/dL 7.6-11.0 [facility] Serum or plasma urea nitroge n measurement (mass/volume)Ordered By: Lex Roca on 07-19-2024 Urea nitrogen [Mass/Vol] 49 mg/dL High 4-19 [facility] Sodium levelOrdered By: Iban Roca on 07-19-2024 Sodium [Moles/Vol] 139 mmol/L 133-145 [facility] Urine clarityOrdered By: Tony Roca on 07-19-2024 Clarity (U) Clear Clear [facility] Urine color determinationOrd ered By: Lex Roca on 07-19-2024 Color (U) Yellow Yellow [facility] Urine cultureOrdered By: Tony Roca on 07-19-2024 Bacteria identified Cx Nom (U) Proteus mirabilis Abnormal [facility] Urine glucose detectionOrder ed By: Lex Roca on 07-19-2024 Glucose Ql (U) 250 mg/dl High Normal [facility] Urine leukocyte esterase det ection by dipstickOrdered By: Lex Roca on 07-19-2024 Leukocyte esterase Test strip Ql (U) 25 /ul High Negative [facility] Urine pHOrdered By: Lex cooper on 07-19-2024 pH (U) 6.0 [pH] 5.0 - 8.0 [facility] Urine specific gravity measu rementOrdered By: Lex Roca on 07-19-2024 Specific gravity (U) [Rel density] 1.020 1.002-1.030 [facility] Urine urobilinogen measureme ntOrdered By: Lex Roca on 07-19-2024 Urobilinogen Ql (U) Normal mg/dl Normal [facility] White blood cell (WBC) count Ordered By: Lex Roca on 07-19-2024 WBC (Bld) [#/Vol] 6.6 10*3/uL 4.4-11.0 [facility] Anion gap in Serum or Plasma Ordered By: Lex Roca on 07-17-2024 Anion gap [Moles/Vol] 10 mmol/L 5-15 [facility] BUN/creatinine ratioOrdered By: Lex Roca on 07-17-2024 Urea nitrogen/Creatinine [Mass ratio] 28.0 mg/mg High 10-20 [facility] Carbon dioxide, total [Moles /volume] in Central venous bloodOrdered By: Lex Roca on 07-17-2024 CO2 [Moles/Vol] 23.1 mmol/L 21.0-32.0 [facility] Chloride assayOrdered By: Sony Roca on 07-17-2024 Chloride [Moles/Vol] 107 mmol/L 98-108 [facility] Erythrocyte distribution wid th ratioOrdered By: Lex Roca on 07-17-2024 Erythrocyte distribution width (RBC) [Ratio] 12.5 % 11.6-14.6 [facility] Erythrocyte distribution wid th standard deviationOrdered By: Lex Roca on 07-17-2024 Erythrocyte distribution width (RBC) [Ratio] 41.5 fl 35.1-43.9 [facility] Glomerular filtration rate ( GFR) estimation/1.73 sq m using serum, plasma, or whole bOrdered By: Lex Roca on 07-17-2024 GFR/1.73 sq M.predicted among non-blacks MDRD (S/P/Bld) [Vol rate/Area] 30 mL/min/{1.73_m2} Low >60 [facility] Comment on above: mL/min/1.73m2 CKD-EP I Creatinine Equation (2020) Hematocrit Auto (Bld) [Volum e fraction]Ordered By: Lex Roca on 07-17-2024 Hematocrit (Bld) [Volume fraction] 33.8 % Low 37-47 [facility] Hemoglobin A1c percentageOrd ered By: Lex Roca on 07-17-2024 HbA1c (Bld) [Mass fraction] 7.5 % High <5.7 [facility] Comment on above: Normal < 5.7 % Predi abetic 5.7 - 6.4 % Diabetic >or= 6.5 % Please note range changes. Hemoglobin measurementOrdere d By: Lex Roca on 07-17-2024 Hemoglobin (Bld) [Mass/Vol] 10.9 g/dL Low 12.0-15.0 [facility] MCV (mean corpuscular volume ) determinationOrdered By: Lex Roca on 07-17-2024 MCV (RBC) [Entitic vol] 91.6 fL 81-99 [facility] Mean corpuscular hemoglobin (MCH) determinationOrdered By: Lex Roca on 07-17-2024 MCH (RBC) [Entitic mass] 29.5 pg 27.0-32.0 [facility] Mean corpuscular hemoglobin concentration (MCHC) determinationOrdered By: Lex Roca on 07-17-2024 MCHC (RBC) [Mass/Vol] 32.2 g/dL 32-36 [facility] Mean platelet volume determi nationOrdered By: Lex Roca on 07-17-2024 Platelet mean volume (Bld) [Entitic vol] 10.0 fL 6.2-12.0 [facility] Platelet countOrdered By: Sony Roca on 07-17-2024 Platelets (Bld) [#/Vol] 286 10*3/uL 150-450 [facility] Potassium measurement (mass/ volume)Ordered By: Lex Roca on 07-17-2024 Potassium (Unsp spec) [Mass/Vol] 5.1 mmol/L 3.3-5.1 [facility] RBC Auto (Bld) [#/Vol]Ordere d By: Lex Roca on 07-17-2024 RBC (Bld) [#/Vol] 3.69 10*6/uL Low 4.2-5.4 [facility] Serum creatinine measurement (mass/volume)Ordered By: Lex Roca on 07-17-2024 Creatinine [Mass/Vol] 1.87 mg/dL High 0.70-1.20 [facility] Serum glucose measurement (m ass/volume)Ordered By: Lex Roca on 07-17-2024 Glucose [Mass/Vol] 254 mg/dL High 70-99 [facility] Serum or plasma calcium aba urement (mass/volume)Ordered By: Lex Roca on 07-17-2024 Calcium [Mass/Vol] 8.8 mg/dL 7.6-11.0 [facility] Serum or plasma urea nitroge n measurement (mass/volume)Ordered By: Lex Roca on 07-17-2024 Urea nitrogen [Mass/Vol] 52 mg/dL High 4-19 [facility] Sodium levelOrdered By: Iban Roca on 07-17-2024 Sodium [Moles/Vol] 140 mmol/L 133-145 [facility] White blood cell (WBC) count Ordered By: Lex Roca on 07-17-2024 WBC (Bld) [#/Vol] 6.7 10*3/uL 4.4-11.0 [facility] BETA HYDROXYBUTYRATEon 07-13 BETA HYDROXYBUTYRATE 0.6 mg/dL Normal <=2.8 [facility] Comment on above: Performed By: #### L [id number], [id number] ####It Application Development Manager: LAURA BAUTISTA ([phone])[facility] [employer] (SWRLAB)[address] [place] [address] BLOOD GAS, VENOUS (SWR AND S HC)on 07-13-2024 AMOUNT OF OXYGEN Normal [facility] Comment on above: Performed By: #### L [id number] #### It Application Development Manager: LAURA BAUTISTA ([phone]) [facility] SAM RITTMAN (SWRLAB) [address] [place] [address] BASE EXCESS (MMOL/L) IN VENOUS BLOOD -1.0 mmol/L Normal -3.0-3.0 [facility] Comment on above: Performed By: #### L [id number] #### It Application Development Manager: LAURA BAUTISTA ([id number]) [facility] (SWRLAB) [address] [place] [address] CARBON DIOXIDE (MM HG) IN VENOUS BLOOD 43 mm(Hg) Normal 40-55 [facility] Comment on above: Performed By: #### L [id number] #### It Application Development Manager: LAURA BAUTISTA ([id number]) [employer] (SWRLAB) [address] [place] [address] [place] CO2 [Moles/Vol] 26.0 mmol/L Normal 24.0-28.0 [facility] Comment on above: Performed By: #### L [id number] #### It Application Development Manager: LAURA BAUTISTA ([id number]) [facility] (SWRLAB) [address] [place] [address] HCO3 (Bld) [Moles/Vol] 24.7 mmol/L Normal 23.0-27.0 [facility] Comment on above: Performed By: #### L [id number] #### It Application Development Manager: LAURA BAUTISTA ([id number]) [facility] (SWRL[employer]) [address] [place] [address] OXYGEN (MM HG) IN VENOUS BLOOD 51 mm(Hg) Normal [facility] Comment on above: Performed By: #### L [id number] #### It Application Development Manager: LAURA BAUTISTA ([phone]) [facility] (SWRL[facility]) [address] [place] [address] OXYGEN SATURATION (%) IN VENOUS BLOOD 85.0 % High 60.0-80.0 [facility] Comment on above: Performed By: #### L [id number] #### It Application Development Manager: LAURA BAUTISTA ([id number]) [facility] (SWRLAB) [address] [place] [address] pH (Bld) 7.373 [pH] Normal 7.310-7.410 [facility] Comment on above: Performed By: #### L [id number] #### It Application Development Manager: LAURA BAUTISTA ([phone]) [facility] (SWRLAB) [address] [place] [address] SOURCE OF OXYGEN None (Room Air) Normal [facility] Comment on above: Performed By: #### L [id number] #### It Application Development Manager: LAURA BAUTISTA ([phone]) [facility] [facility] (SWRLAB) [address] [place] [address] CBC WITH AUTO DIFFERENTIALon 07-13-2024 Basophils (Bld) [#/Vol] 0.0 10*3/uL Normal 0.0-0.2 [facility] Comment on above: Performed By: #### L [id number] ####It Application Development Manager: LAURA BAUTISTA ([phone])[employer] (SWRLAB)[address] [place] [address] Basophils/100 WBC (Bld) 0.5 % Normal 0.0-2.0 S [facility] Comment on above: Performed By: #### L [id number] ####It Application Development Manager: LAURA BAUTISTA ([phone])[facility] [facility] (SWRLAB)[address] [place] [address] Eosinophils (Bld) [#/Vol] 0.5 10*3/uL Normal 0.0-0.5 [facility] Comment on above: Performed By: #### L [id number] ####It Application Development Manager: LAURA BAUTISTA ([id number])[facility] [facility] (SWRLAB)[address] [place] [address] Eosinophils/100 WBC (Bld) 6.3 % High 0.0-6.0 [facility] Comment on above: Performed By: #### L [id number] ####It Application Development Manager: LAURA BAUTISTA ([id number])[facility] [facility] [facility] (SWRLAB)[address] [place] [address] Erythrocyte distribution width (RBC) [Ratio] 12.7 % Normal 11.5-15.0 [facility] Comment on above: Performed By: #### L [id number] ####It Application Development Manager: LAURA BAUTISTA ([id number])[facility] [facility] (SWRLAB)[address] [place] [address] Hematocrit (Bld) [Volume fraction] 34.0 % Low 35.0-47.0 [facility] Comment on above: Performed By: #### L [id number] ####It Application Development Manager: LAURA BAUTISTA ([id number])[facility] (SWRLAB)[address] [place] [address] Hemoglobin (Bld) [Mass/Vol] 11.1 g/dL Low 11.7-16.0 [facility] Comment on above: Performed By: #### L [id number] ####It Application Development Manager: LAURA BAUTISTA ([id number])[facility] (SWRLAB)[address] [place] [address] IMMATURE GRANS % 0.7 % Normal 0.0-2.0 [facility] Comment on above: Performed By: #### L [id number] ####It Application Development Manager: LAURA BAUTISTA ([phone])[facility] (SWRLAB)[address] [place] [address] IMMATURE GRANS ABSOLUTE 0.1 10*3/uL High <0.1 [facility] Comment on above: Performed By: #### L [id number] ####It Application Development Manager: LAURA BAUTISTA ([phone])[facility] (SWRLAB)[address] [place] [address] Lymphocytes (Bld) [#/Vol] 1.9 10*3/uL Normal 1.0-4.3 [facility] Comment on above: Performed By: #### L [id number] ####It Application Development Manager: LAURA BAUTISTA ([id number])[facility] (SWRLAB)[address] [place] [address] [place] Lymphocytes/100 WBC (Bld) 24.8 % Normal 15.0-45.0 [facility] Comment on above: Performed By: #### L [id number] ####It Application Development Manager: LAURA BAUTISTA ([phone])[facility] (SWRLAB)[address] [place] [address] [place] MCH (RBC) [Entitic mass] 29.4 pg Normal 26.0-34.0 [facility] Comment on above: Performed By: #### L [id number] ####It Application Development Manager: LAURA BAUTISTA ([phone])[facility] [facility] [facility] (SWRLAB)[address] [place] [address] MCHC 32.6 % Normal 30.5-36.0 [facility] Comment on above: Performed By: #### L [id number] ####It Application Development Manager: LAURA BAUTISTA ([phone])[facility] (SWRLAB)[address] [place] [address] MCV (RBC) [Entitic vol] 90.2 fL Normal 77.0-99.0 [facility] Comment on above: Performed By: #### L [id number] ####It Application Development Manager: LAURA BAUTISTA ([id number])[employer] (SWRLAB)[address] [place] [address] Monocytes (Bld) [#/Vol] 0.9 10*3/uL Normal 0.0-0.9 [facility] Comment on above: Performed By: #### L [id number] ####It Application Development Manager: LAURA BAUTISTA ([phone])[employer] [facility] (SWRLAB)[address] [place] [address] [place] Monocytes/100 WBC (Bld) 11.4 % Normal 5.0-13.0 [facility] Comment on above: Performed By: #### L [id number] ####It Application Development Manager: LAURA BAUTISTA ([id number])[facility] (SWRLAB)[address] [place] [address] [place] NEUTROPHILS ABSOLUTE 4.3 10*3/uL Normal 1.8-7.5 [facility] Comment on above: Performed By: #### L [id number] ####It Application Development Manager: LAURA BAUTISTA ([phone])[facility] (SWRLAB)[address] [place] [address] [place] Neutrophils/100 WBC (Bld) 56.3 % Normal 38.0-82.0 [facility] Comment on above: Performed By: #### L [id number] ####It Application Development Manager: LAURA BAUTISTA ([id number])[facility] (SWRLAB)[address] [place] [address] NRBC 0.0 /100 WBCs Normal 0.0-2.0 [facility] Comment on above: Performed By: #### L [id number] ####It Application Development Manager: LAURA BAUTISTA ([phone])[facility] (SWRLAB)[address] [place] [address] Platelet mean volume (Bld) [Entitic vol] 9.4 fL Normal 9.0-12.7 [facility] Comment on above: Result Comment: MPV is a calculated measurement using platelet volume ratio Performed By: #### L [id number] ####It Application Development Manager: LAURA BAUTISTA ([id number])[facility] (SWRLAB)[address] [place] [address] [place] Platelets (Bld) [#/Vol] 282 10*3/uL Normal 140-440 [facility] Comment on above: Performed By: #### L [id number] ####It Application Development Manager: LAURA BAUTISTA ([id number])[facility] (SWRLAB)[address] [place] [address] [place] RBC (Bld) [#/Vol] 3.77 10*6/uL Low 3.80-5.20 [facility] Comment on above: Performed By: #### L [id number] ####It Application Development Manager: LAURA BAUTISTA ([phone])[facility] (SWRLAB)[address] [place] [address] [place] WBC (Bld) [#/Vol] 7.7 10*3/uL Normal 3.6-10.7 [facility] Comment on above: Performed By: #### L [id number] ####It Application Development Manager: LAURA BAUTISTA ([id number])[facility] (SWRLAB)[address] COMPREHENSIVE METABOLIC PANE Aamir 07-13-2024 Albumin [Mass/Vol] 3.2 g/dL Low 3.4-4.8 [facility] Comment on above: Performed By: #### L [id number], [id number] ####It Application Development Manager: LAURA BAUTISTA ([id number])[facility] (SWRLAB)[address] ALP [Catalytic activity/Vol] 65 U/L Normal 40-150 [facility] Comment on above: Performed By: #### L [id number], LAB17 ####It Application Development Manager: LAURA BAUTISTA ([phone])[facility] (SWRLAB)[address] ALT [Catalytic activity/Vol] 12 U/L Normal <30 [facility] Comment on above: Performed By: #### L [id number], LAB17 ####It Application Development Manager: LAURA BAUTISTA ([id number])[facility] (SWRLAB)[address] Anion gap [Moles/Vol] 9 mmol/L Normal 3-13 [facility] Comment on above: Performed By: #### L [id number], LAB17 ####It Application Development Manager: LAURA BAUTISTA ([phone])[facility] (SWRLAB)[address] AST [Catalytic activity/Vol] 20 U/L Normal <34 [facility] Comment on above: Performed By: #### L [id number], LAB17 ####It Application Development Manager: LAURA BAUTISTA ([id number])[facility] (SWRLAB)[address] Bilirubin [Mass/Vol] 0.3 mg/dL Normal <1.2 [facility] Comment on above: Performed By: #### L [id number], LAB17 ####It Application Development Manager: LAURA BAUTISTA ([phone])[facility] (SWRLAB)[address] [place] [address] Calcium [Mass/Vol] 9.0 mg/dL Normal 8.8-10.0 [facility] Comment on above: Performed By: #### L [id number], LAB17 ####It Application Development Manager: LAURA BAUTISTA ([phone])[facility]FIELDRamón CLAYTONSAM RITTMAN (SWRLAB)[address] [place] [address] [place] Chloride [Moles/Vol] 108 mmol/L High 98-107 [facility] Comment on above: Performed By: #### L [id number], LAB17 ####It Application Development Manager: LAURA BAUTISTA ([phone])[facility]ELDRam[facility] CLAYTONSAM RITTMAN (SWRLAB)[address] [place] [address] CO2 [Moles/Vol] 21 mmol/L Low 23-31 [facility] Comment on above: Performed By: #### Jaky VANCE6, LAB17 ####It Application Development Manager: LAURA BAUTISTA ([phone])[facility] (SWRLAB)[address] [place] [address] [place] Creatinine [Mass/Vol] 2.00 mg/dL High 0.57-1.11 [facility] Comment on above: Performed By: #### L [id number], LAB17 ####It Application Development Manager: LAURA BAUTISTA ([id number])[facility] (SWRLAB)[address] [place] [address] [place] GLOMERULAR FILTRATION RATE ML/MIN/1.73 SQ M.PREDICTED 27.8 mL/min/1.73m*2 Low >60.0 [facility] Comment on above: Result Comment: Calc ulation based on the Chronic Kidney Disease Epidemiology Collaboration (CKD-EPI) equation refit without adjustment for race Performed By: #### L [id number], LAB17 ####It Application Development Manager: LAURA BAUTISTA ([id number])[facility] (SWRLAB)[address] [place] [address] [place] Glucose [Mass/Vol] 370 mg/dL High 82-115 [facility] Comment on above: Performed By: #### L [id number], LAB17 ####It Application Development Manager: LAURA BAUTISTA ([id number])[facility] (SWRLAB)[address] [place] [address] [place] Potassium [Moles/Vol] 4.8 mmol/L Normal 3.5-5.1 [facility] Comment on above: Result Comment: [facility] potassium values may be up to 0.5 mmol/L lower than serum values. Performed By: #### L [id number], LAB17 ####It Application Development Manager: LAURA BAUTISTA ([phone])[facility] (SWRL[facility])[address] Protein [Mass/Vol] 6.9 g/dL Normal 6.4-8.3 [facility] Comment on above: Performed By: #### L [id number], LAB17 ####It Application Development Manager: LAURA BAUTISTA ([phone])[facility] (SWRLAB)[address] [place] [address] [place] Sodium [Moles/Vol] 138 mmol/L Normal 136-145 [facility] Comment on above: Performed By: #### L [id number], LAB17 ####It Application Development Manager: LAURA BATUISTA ([phone])[facility] (SWRL[facility])[address] [place] [address] [place] Urea nitrogen [Mass/Vol] 56 mg/dL High 9-23 [facility] Comment on above: Performed By: #### L [id number], LAB17 ####It Application Development Manager: LAURA BAUTISTA ([phone])[facility] (SWRLAB)[address] ECG 12-LEADon 07-13-2024 ECG 12-LEAD IMPRESSION: Sinus rhythm Inferior infarct, old Compared to ECG 07/08/24 No significant change Electronically Signed On 07-13-2024 00:24:08 EDT by Grzegorz Guillen Normal [facility] ED Nursing Noteon 07-13-2024 ED Nursing Note Pt reports mid back pain, and LLE pain and swelling. Pt treated for cellulitis of lower leg. States her blood sugar was high this evening, did receive her insulin from her nurse. Unsure what type of insulin [facility] ED Provider Noteon ED Provider Note [facility] ED EMERGENCY DEPARTMENT ENCOUNTER Pt Name: Cinthya Castillo Birthdate 1960 Date of evaluation: 07/13/2024 Provider: Jeramy Allen MD CHIEF COMPLAINT Chief Complaint Patient presents with Back Pain Leg Pain Hyperglycemia HISTORY OF PRESENT ILLNESS (Location/Symptom, Timing/Onset,Context/S etting, Quality, Duration, Modifying Factors, Severity) Note limiting factors. Cinthya Castillo is a 63 y.o. female who presents to the emergency department presents back pain leg pain and elevated blood sugar. She was seen here yesterday where complaints of a fall. She followed at nursing facility unwitnessed. Complaint bilateral hip pain. Patient is recently admitted for cellulitis. Patient [place] chest pain shortness breath fevers chills HPI Historian is patient Nurse's notes for past medical history, surgical history, social history were reviewed. Medications and allergies reviewed. PAST MEDICAL HISTORY Past Medical History: Diagnosis Date Asthma Developmental delay Diabetes mellitus (HCC) Diverticulosis Hiatal hernia Hypertension STEFANI (obstructive sleep apnea) SURGICALHISTORY Past Surgical History: Procedure Laterality Date ANKLE SURGERY COLONOSCOPY N/A 12/11/2022 Performed by Micheal Silva MD at [facility] CURRENT MEDICATIONS Previous Medications ACETAMINOPHEN (TYLENOL) 325 MG TABLET Take 2 tablets (650 mg) by mouth every 6 hours as needed for mild pain (1-3) or fever (For temp greater than 100.4 F (38 C)) for up to 10 days. ASPIRIN 81 MG EC TABLET Take 81 mg by mouth daily. ATORVASTATIN (LIPITOR) 20 MG TABLET Take 20 mg by mouth daily. CEPHALEXIN (KEFLEX) 500 MG CAPSULE Take 1 capsule (500 mg) by mouth 4 times daily for 4 days. DULAGLUTIDE (TRULICITY) 3 MG/0.5ML SOLUTION PEN-INJECTOR Inject 3 mg under the skin 1 (one) time per week. ESCITALOPRAM (LEXAPRO) 10 MG TABLET Take 10 mg by mouth daily. FENOFIBRATE MICRONIZED (LOFIBRA) 67 MG CAPSULE Take 67 mg by mouth daily (with breakfast). GABAPENTIN (NEURONTIN) 400 MG CAPSULE Take 400 mg by mouth 3 times daily. HYDRALAZINE (APRESOLINE) 50 MG TABLET Take by mouth. INSULIN GLARGINE (LANTUS) 100 UNIT/ML INJECTION Inject 60 Units under the skin Nightly. LEVOTHYROXINE (SYNTHROID, LEVOXYL) 75 MCG TABLET Take by mouth every morning (before breakfast). METOPROLOL SUCCINATE XL (TOPROL-XL) 100 MG 24 HR TABLET Take by mouth. Do not crush or chew. ROPINIROLE (REQUIP) 0.5 MG TABLET Take 0.5 mg by mouth 3 times daily. SENNA-DOCUSATE (ROXANNE-COLACE) 8.6-50 MG TABLET Take 1 tablet by mouth daily. Penicillins FAMILY HISTORY Family History Problem Relation Name Age of Onset No Known Problems Father No Known Problems Mother SOCIAL HISTORY Social History Socioeconomic History Marital status: Single Tobacco Use Smoking status: Former Smokeless tobacco: Never Tobacco comments: Quit two years ago Vaping Use Vaping status: Never Used Substance and Sexual Activity Alcohol use: No Drug use: No Social Drivers of Health Food Insecurity: Patient Declined (07/09/2024) Hunger Vital Sign Worried About Running Out of Food in the Last Year: Patient declined Ran Out of Food in the Last Year: Patient declined Transportation Needs: Patient Declined (07/09/2024) PRAPARE - Transportation Lack of Transportation (Medical): Patient declined Lack of Transportation (Non-Medical): Patient declined Intimate Partner Violence: Not At Risk (07/09/2024) Humiliation, Afraid, Rape, and Kick questionnaire Fear of Current or Ex-Partner: No Emotionally Abused: No Physically Abused: No Sexually Abused: No Housing Stability: Patient Declined (07/09/2024) Housing Stability Vital Sign Unable to Pay for Housing in the Last Year: Patient declined Number of Times Moved in the Last Year: 0 Homeless in the Last Year: Patient declined SCREENINGS PHYSICAL EXAM (up to 7 for level 4, 8 or more for level 5) @EDTRIAGEVSS@ Appropriate PPE including n 95, gown, gloves, goggles where worn when appropriate with this patient. Physical Exam Vital signs reviewed general: Alert and oriented ?3 head: Atraumatic eyes: Equal round reactive to light and accommodating, pupils are equal, round and reactive to light and accommodation oropharynx: Clear and well hydrated neck: No mid line cervical tenderness Thoracic lumbar spine no midline tenderness heart: Regular rate and rhythm, no murmurs lungs: Clear to auscultation bilaterally abdomen: Soft nontender, positive bowel sounds, no peritoneal findings. Extremities: Moving all fours, no tenderness. Normal capillary refill. Skin: Does have wound to the anterior left leg appears to be healing does have dressing in place I did evaluate it there is no signs of abscess or cellulitis. neurologically: Alert and oriented ?3, no full deficit DIAGNOSTIC RESULTS RADIOLOGY: Interpretation per the Radiologist below, if av (more content not included)... Normal [facility] BASIC METABOLIC PANELon - Anion gap [Moles/Vol] 9 mmol/L Normal -13 [facility] Comment on above: Performed By: #### L [id number], [id number] ####It Application Development Manager: LAURA BAUTISTA ([id number])[facility] [employer] ([facility])[address] [place] [address] Calcium [Mass/Vol] 8.9 mg/dL Normal 8.8-10.0 [facility] Comment on above: Performed By: #### L [id number], LAB15 ####It Application Development Manager: LAURA BAUTISTA ([id number])[facility] (SWRL[facility])[address] [place] [address] [place] Chloride [Moles/Vol] 109 mmol/L High 98-107 [facility] Comment on above: Performed By: #### L [id number], LAB15 ####It Application Development Manager: LAURA BAUTISTA ([id number])[facility] ([facility])[address] [place] [address] [place] CO2 [Moles/Vol] 21 mmol/L Low 23-31 [facility] Comment on above: Performed By: #### L [id number], LAB15 ####It Application Development Manager: LAURA BAUTISTA ([id number])[facility] ([facility])[address] [place] [address] [place] Creatinine [Mass/Vol] 2.14 mg/dL High 0.57-1.11 [facility] Comment on above: Performed By: #### L [id number], LAB15 ####It Application Development Manager: LAURA BAUTISTA ([id number])[facility] ([facility])[address] [place] [address] [place] GLOMERULAR FILTRATION RATE ML/MIN/1.73 SQ M.PREDICTED 25.6 mL/min/1.73m*2 Low >60.0 [facility] Comment on above: Result Comment: Calc ulation based on the Chronic Kidney Disease Epidemiology Collaboration (CKD-EPI) equation refit without adjustment for race Performed By: #### L [id number], LAB15 ####It Application Development Manager: LAURA BAUTISTA ([id number])[facility] ([facility])[address] [place] [address] [place] Glucose [Mass/Vol] 316 mg/dL High 82-115 [facility] Comment on above: Performed By: #### L [id number], LAB15 ####It Application Development Manager: LAURA BAUTISTA ([id number])[facility] ([facility])[address] [place] [address] [place] Potassium [Moles/Vol] 5.0 mmol/L Normal 3.5-5.1 [facility] Comment on above: Result Comment: [facility] potassium values may be up to 0.5 mmol/L lower than serum values. Performed By: #### L [id number], LAB15 ####It Application Development Manager: LAURA BAUTISTA ([phone])[facility] ([facility])[address] [place] [address] [place] Sodium [Moles/Vol] 139 mmol/L Normal 136-145 [facility] Comment on above: Performed By: #### L [id number], LAB15 ####It Application Development Manager: LAURA BAUTISTA ([id number])[facility] ([facility])[address] Urea nitrogen [Mass/Vol] 59 mg/dL High 12-12 [facility] Comment on above: Performed By: #### L [id number], LAB15 ####It Application Development Manager: LAURA BAUTISTA ([id number])[facility] [place] ([facility])[address] CBC WITH AUTO DIFFERENTIALon 07-12-2024 Basophils (Bld) [#/Vol] 0.1 10*3/uL Normal 0.0-0.2 [facility] Comment on above: Performed By: #### L [id number] ####It Application Development Manager: LAURA BAUTISTA ([id number])[facility] ([facility])[address] [place] [address] [place] Basophils/100 WBC (Bld) 0.6 % Normal 0.0-2.0 [facility] Comment on above: Performed By: #### L [id number] ####It Application Development Manager: LAURA BAUTISTA ([id number])[facility] ([facility])[address] [place] [address] [place] Eosinophils (Bld) [#/Vol] 0.6 10*3/uL High 0.0-0.5 [facility] Comment on above: Performed By: #### L [id number] ####It Application Development Manager: LAURA BAUTISTA ([id number])[facility] ([facility])[address] [place] [address] [place] Eosinophils/100 WBC (Bld) 7.3 % High 0.0-6.0 [facility] Comment on above: Performed By: #### L [id number] ####It Application Development Manager: LAURA BAUTISTA ([id number])[facility] ([facility])[address] [place] [address] [place] Erythrocyte distribution width (RBC) [Ratio] 12.9 % Normal 11.5-15.0 [facility] Comment on above: Performed By: #### L [id number] ####It Application Development Manager: LAURA BAUTISTA ([id number])[facility] ([facility])[address] [place] [address] Hematocrit (Bld) [Volume fraction] 33.2 % Low 35.0-47.0 [facility] Comment on above: Performed By: #### L [id number] ####It Application Development Manager: LAURA BAUTISTA ([id number])[facility] ([facility])[address] [place] [address] Hemoglobin (Bld) [Mass/Vol] 10.8 g/dL Low 11.7-16.0 [facility] Comment on above: Performed By: #### L [id number] ####It Application Development Manager: LAURA BAUTISTA ([id number])[facility] ([facility])[address] [place] [address] IMMATURE GRANS % 0.5 % Normal 0.0-2.0 [facility] Comment on above: Performed By: #### L [id number] ####It Application Development Manager: LAURA BAUTISTA ([id number])[facility] ([facility])[address] [place] [address] IMMATURE GRANS ABSOLUTE 0.0 10*3/uL Normal <0.1 [facility] Comment on above: Performed By: #### L [id number] ####It Application Development Manager: LAURA BAUTISTA ([id number])[facility] ([facility])[address] [place] [address] [place] Lymphocytes (Bld) [#/Vol] 1.7 10*3/uL Normal 1.0-4.3 [facility] Comment on above: Performed By: #### L [id number] ####It Application Development Manager: LAURA BAUTISTA ([id number])[facility] ([facility])[address] [place] [address] [place] Lymphocytes/100 WBC (Bld) 22.3 % Normal 15.0-45.0 [facility] Comment on above: Performed By: #### L [id number] ####It Application Development Manager: LAURA BAUTISTA ([id number])[facility] ([facility])[address] [place] [address] MCH (RBC) [Entitic mass] 29.2 pg Normal 26.0-34.0 [facility] Comment on above: Performed By: #### L [id number] ####It Application Development Manager: LAURA BAUTISTA ([id number])[facility] ([facility])[address] [place] [address] MCHC 32.5 % Normal 30.5-36.0 [facility] Comment on above: Performed By: #### L [id number] ####It Application Development Manager: LAURA BAUTISTA ([id number])[facility] ([facility])[address] [place] [address] MCV (RBC) [Entitic vol] 89.7 fL Normal 77.0-99.0 [facility] Comment on above: Performed By: #### L [id number] ####It Application Development Manager: LAURA BAUTISTA ([id number])[facility] ([facility])[address] [place] [address] [place] Monocytes (Bld) [#/Vol] 0.9 10*3/uL Normal 0.0-0.9 [facility] Comment on above: Performed By: #### L [id number] ####It Application Development Manager: LAURA BAUTISTA ([id number])[facility] ([facility])[address] [place] [address] [place] Monocytes/100 WBC (Bld) 11.0 % Normal 5.0-13.0 [facility] Comment on above: Performed By: #### L [id number] ####It Application Development Manager: LAURA BAUTISTA ([id number])[facility] ([facility])[address] [place] [address] [place] NEUTROPHILS ABSOLUTE 4.5 10*3/uL Normal 1.8-7.5 [facility] Comment on above: Performed By: #### L [id number] ####It Application Development Manager: LAURA BAUTISTA ([id number])[facility] ([facility])[address] [place] [address] [place] Neutrophils/100 WBC (Bld) 58.3 % Normal 38.0-82.0 [facility] Comment on above: Performed By: #### L [id number] ####It Application Development Manager: LAURA BAUTISTA ([id number])[facility] ([facility])[address] [place] [address] NRBC 0.0 /100 WBCs Normal 0.0-2.0 [facility] Comment on above: Performed By: #### L [id number] ####It Application Development Manager: LAURA BAUTISTA ([id number])[facility] ([facility])[address] [place] [address] Platelet mean volume (Bld) [Entitic vol] 9.7 fL Normal 9.0-12.7 [facility] Comment on above: Result Comment: MPV is a calculated measurement using platelet volume ratio Performed By: #### L [id number] ####It Application Development Manager: LAURA BAUTISTA ([id number])[facility] ([facility])[address] [place] [address] [place] Platelets (Bld) [#/Vol] 278 10*3/uL Normal 140-440 [facility] Comment on above: Performed By: #### L [id number] ####It Application Development Manager: LAURA BAUTISTA ([id number])[facility] ([facility])[address] [place] [address] RBC (Bld) [#/Vol] 3.70 10*6/uL Low 3.80-5.20 [facility] Comment on above: Performed By: #### L [id number] ####It Application Development Manager: LAURA BAUTISTA ([id number])[facility] HOSPITALSAMGRGEORIA BUITRAGO ([facility])[address] [place] [address] WBC (Bld) [#/Vol] 7.8 10*3/uL Normal 3.6-10.7 [facility] Comment on above: Performed By: #### L [id number] ####It Application Development Manager: LAURA SINGLETONKina ([id number])[facility] ([facility])[address] ED Provider Noteon ED Provider Note Emergency Department Encounter [facility] ED Patient: Cinthya Castillo : 1960 Date of Evaluation: 07/12/2024 ED Provider: Grzegorz Guillen DO Chief Complaint Chief Complaint Patient presents with Fall Pt. Reports bilateral hip pain [place] Cinthya Castillo is a 63 y.o. female who presents to the emergency department complaining of fall. Patient explains that she had a fall at her nursing facility. This was unwitnessed. She is also complaining of bilateral hip pain. Reports that she is experiencing some chest pain as well. Was recently admitted to the hospital for cellulitis, chest pain. Additional history obtained from : n/a Barriers to obtaining history from patient: n/a ROS: Review of Systems completed as follows: (Bold = positive, Not bold = negative) GENERAL: fevers, chills, malaise ENT: runny nose, congestion, sore throat, ear pain NEURO: weakness, numbness of tingling, headache CARDIOVASCULAR: chest pain, syncope PULMONARY: shortness of breath, cough, wheezing GASTROINTESTINAL: nausea, vomiting, abdominal pain, diarrhea, constipation, MUSCULOSKELETAL: pain SKIN: rash, lesions, wound Past History Past Medical History: Diagnosis Date Asthma Developmental delay Diabetes mellitus (HCC) Diverticulosis Hiatal hernia Hypertension STEFANI (obstructive sleep apnea) Past Surgical History: Procedure Laterality Date ANKLE SURGERY COLONOSCOPY N/A 12/11/2022 Performed by Micheal Silva MD at [address] ENDOSCOPY Social History Socioeconomic History Marital status: Single Tobacco Use Smoking status: Former Smokeless tobacco: Never Tobacco comments: Quit two years ago Vaping Use Vaping status: Never Used Substance and Sexual Activity Alcohol use: No Drug use: No Social Drivers of Health Food Insecurity: Patient Declined (07/09/2024) Hunger Vital Sign Worried About Running Out of Food in the Last Year: Patient declined Ran Out of Food in the Last Year: Patient declined Transportation Needs: Patient Declined (07/09/2024) PRAPARE - Transportation Lack of Transportation (Medical): Patient declined Lack of Transportation (Non-Medical): Patient declined Intimate Partner Violence: Not At Risk (07/09/2024) Humiliation, Afraid, Rape, and Kick questionnaire Fear of Current or Ex-Partner: No Emotionally Abused: No Physically Abused: No Sexually Abused: No Housing Stability: Patient Declined (07/09/2024) Housing Stability Vital Sign Unable to Pay for Housing in the Last Year: Patient declined Number of Times Moved in the Last Year: 0 Homeless in the Last Year: Patient declined I have reviewed the history above as provided by nursing notes. Medications/Allergies Previous Medications ACETAMINOPHEN (TYLENOL) 325 MG TABLET Take 2 tablets (650 mg) by mouth every 6 hours as needed for mild pain (1-3) or fever (For temp greater than 100.4 F (38 C)) for up to 10 days. ASPIRIN 81 MG EC TABLET Take 81 mg by mouth daily. ATORVASTATIN (LIPITOR) 20 MG TABLET Take 20 mg by mouth daily. CEPHALEXIN (KEFLEX) 500 MG CAPSULE Take 1 capsule (500 mg) by mouth 4 times daily for 4 days. DULAGLUTIDE (TRULICITY) 3 MG/0.5ML SOLUTION PEN-INJECTOR Inject 3 mg under the skin 1 (one) time per week. ESCITALOPRAM (LEXAPRO) 10 MG TABLET Take 10 mg by mouth daily. FENOFIBRATE MICRONIZED (LOFIBRA) 67 MG CAPSULE Take 67 mg by mouth daily (with breakfast). GABAPENTIN (NEURONTIN) 400 MG CAPSULE Take 400 mg by mouth 3 times daily. HYDRALAZINE (APRESOLINE) 50 MG TABLET Take by mouth. INSULIN GLARGINE (LANTUS) 100 UNIT/ML INJECTION Inject 60 Units under the skin Nightly. LEVOTHYROXINE (SYNTHROID, LEVOXYL) 75 MCG TABLET Take by mouth every morning (before breakfast). METOPROLOL SUCCINATE XL (TOPROL-XL) 100 MG 24 HR TABLET Take by mouth. Do not crush or chew. ROPINIROLE (REQUIP) 0.5 MG TABLET Take 0.5 mg by mouth 3 times daily. SENNA-DOCUSATE (ROXANNE-COLACE) 8.6-50 MG TABLET Take 1 tablet by mouth daily. Allergies Allergen Reactions Penicillins Unknown unsure Pt unaware of reaction. Tolerated cephalexin 02/2018 I have reviewed the history above as provided by nursing notes. Physical Exam ED Triage Vitals [07/12/24 2249] Temp Heart Rate Resp BP 36.7 ?C (98.1 ?F) 74 19 (!) 175/88 SpO2 Temp Source Heart Rate Source Patient Position 97 % Oral Monitor Lying BP Location FiO2 (%) Right arm -- GENERAL: The patient appears nourished and normally developed. Vital signs as documented. EYES: PERRL. No scleral icterus or orbital trauma noted. HEENT: Mucous membranes moist. Nares patent without copious rhinorrhea. LUNGS: Lungs are clear to auscultation, without any respiratory distress. CARDIAC: Rhythm is regular. No murmur appreciated ABDOMEN: Nontender, soft, with no obvious masses, and no peritoneal signs. EXTREMITIES: Normal range of motion to flexion extension of the hip. Patient is able to flex at the knee, dorsiflex (more content not included)... Normal [facility] HIGH SENSITIVITY TROPONIN, S ERIAL BASELINEon 07-12-2024 TROPONIN HS SERIAL BASELINE 6 ng/L Normal <=14 [facility] Comment on above: Result Comment: In i ndividuals presenting with symptoms > 2h, a baseline troponin <= 5 ng/L suggests acute cardiac injury is unlikely and further serial testing is generally not indicated. Performed By: #### L [id number], LAB15 ####It Application Development Manager: LAURA BAUTISTA ([id number])[facility] ([facility])[address] [place] [address] 30on 07-11-2024 30 Problem: Knowledge Deficit Goal: Patient/family/caregiv er demonstrates understanding of disease process, treatment plan, medications, and discharge instructions Outcome: Adequate for Discharge Problem: Potential for Compromised Skin Integrity Goal: Skin Integrity is Maintained or Improved Outcome: Adequate for Discharge Goal: Nutritional status is improving Outcome: Adequate for Discharge Problem: Urinary Incontinence Goal: Perineal skin integrity is maintained or improved Outcome: Adequate for Discharge [facility] [id number] 07-11-2024 [id number] Next Site of Care Admission Date: 07/08/2024 07:50 PM Patient Name: CINTHYA CASTILLO Location: [address]/[place] [address] Date of : 1960 ---- Placement Information ---- Referral Type:Jail/SNF - Return Referral ID:[id number] Provider Name:Arleth Address 1:[address] Address 2: City:[place] Selection Factors:Returning to Facility State:[place] [facility] [phone] Confirmed pickup anh e of 130 by transport company [employer] at phone number [phone]. Location of facility drop off is return back to [facility]. Facility notified via Careport, TCC notified on secure chat. Normal 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 Awaiting time confirmation. [facility] [phone] Discharge med list t o [facility] back [facility] transmitted to via Careport per TCC request. [facility] CBC WITH AUTO DIFFERENTIALon 07-11-2024 Basophils (Bld) [#/Vol] 0.0 10*3/uL Normal 0.0-0.2 [facility] Comment on above: Performed By: #### L [id number] ####It Application Development Manager: YOLETTE CROWE ([id number])[facility] ([facility])[address] [place] [address] Basophils/100 WBC (Bld) 0.4 % Normal 0.0-2.0 S [facility] Comment on above: Performed By: #### L [id number] ####It Application Development Manager: YOLETTE CROWE ([id number])[facility] ([facility])[address] [place] [address] Eosinophils (Bld) [#/Vol] 0.5 10*3/uL Normal 0.0-0.5 [facility] Comment on above: Performed By: #### L [id number] ####It Application Development Manager: YOLETTE CROWE ([id number])[facility] ([facility])[address] [place] [address] Eosinophils/100 WBC (Bld) 5.1 % Normal 0.0-6.0 [facility] Comment on above: Performed By: #### L [id number] ####It Application Development Manager: YOLETTE CROWE ([id number])[facility] (SB[facility])[address] Erythrocyte distribution width (RBC) [Ratio] 12.7 % Normal 11.5-15.0 [facility] Comment on above: Performed By: #### L [id number] ####It Application Development Manager: YOLETTE TREVIZOGILBERT ([id number])[facility] (SB[facility])[address] Hematocrit (Bld) [Volume fraction] 35.9 % Normal 35.0-47.0 [facility] Comment on above: Performed By: #### L [id number] ####It Application Development Manager: YOLETTE CROWE ([id number])[facility] ([facility])[address] [place] [address] Hemoglobin (Bld) [Mass/Vol] 11.3 g/dL Low 11.7-16.0 [facility] Comment on above: Performed By: #### L [id number] ####It Application Development Manager: YOLETTE CROWE ([id number])[facility] ([facility])[address] IMMATURE GRANS % 0.6 % Normal 0.0-2.0 [facility] Comment on above: Performed By: #### L [id number] ####It Application Development Manager: YOLETTE CROWE ([id number])[facility] ([facility])[address] IMMATURE GRANS ABSOLUTE 0.1 10*3/uL High <0.1 [facility] Comment on above: Performed By: #### L [id number] ####It Application Development Manager: YOLETTE CRWOE ([phone])[facility] ([facility])[address] [place] [address] Lymphocytes (Bld) [#/Vol] 1.6 10*3/uL Normal 1.0-4.3 [facility] Comment on above: Performed By: #### L [id number] ####It Application Development Manager: YOLETTE CROWE ([id number])[facility] (SBHLAB)[address] Lymphocytes/100 WBC (Bld) 18.2 % Normal 15.0-45.0 [facility] Comment on above: Performed By: #### L [id number] ####It Application Development Manager: YOLETTE CROWE ([id number])[facility]FIELDRamón KUNZCROWNPOINT HEALTHCARE FACILITYN (SBHLAB)[address] MCH (RBC) [Entitic mass] 28.9 pg Normal 26.0-34.0 [facility] Comment on above: Performed By: #### L [id number] ####It Application Development Manager: YOLETTE CROWE ([id number])[facility]ELDRam[facility] KUNZCROWNPOINT HEALTHCARE FACILITYKina (SBHLAB)[address] MCHC 31.5 % Normal 30.5-36.0 [facility] Comment on above: Performed By: #### L [id number] ####It Application Development Manager: YOLETTE CROWE ([id number])[facility] KWANN (SBHLAB)[address] MCV (RBC) [Entitic vol] 91.8 fL Normal 77.0-99.0 [facility] Comment on above: Performed By: #### L [id number] ####It Application Development Manager: YOLETTE CROWE ([id number])[facility]FIELDRamón B[facility] MED[facility] CENTERKina (SBHLAB)[address] [place] [address] [place] Monocytes (Bld) [#/Vol] 1.0 10*3/uL High 0.0-0.9 [facility] Comment on above: Performed By: #### L [id number] ####It Application Development Manager: YOLETTE CROWE ([id number])[facility]FIELDRamón BARBCROWNPOINT HEALTHCARE FACILITYN (SBHLAB)[address] Monocytes/100 WBC (Bld) 11.4 % Normal 5.0-13.0 [facility] Comment on above: Performed By: #### L [id number] ####It Application Development Manager: YOLETTE CROWE ([phone])[facility] ([facility])[address] NEUTROPHILS ABSOLUTE 5.7 10*3/uL Normal 1.8-7.5 [facility] Comment on above: Performed By: #### L [id number] ####It Application Development Manager: YOLETTE CROWE ([phone])[facility] SPRINGFIELDA BARBERTON (SBHLAB)[address] Neutrophils/100 WBC (Bld) 64.3 % Normal 38.0-82.0 [facility] Comment on above: Performed By: #### L [id number] ####It Application Development Manager: YOLETTE CROWE ([id number])[facility] (SB[facility]AB)[address] NRBC 0.0 /100 WBCs Normal 0.0-2.0 [facility] Comment on above: Performed By: #### L [id number] ####It Application Development Manager: YOLETTE CROWE ([id number])[facility] ([facility])[address] Platelet mean volume (Bld) [Entitic vol] 9.5 fL Normal 9.0-12.7 [facility] Comment on above: Performed By: #### L [id number] ####It Application Development Manager: YOLETTE CROWE ([id number])[facility] ([facility])155 [place] [address] [place] Platelets (Bld) [#/Vol] 277 10*3/uL Normal 140-440 [facility] Comment on above: Performed By: #### L [id number] ####It Application Development Manager: YOLETTE CROWE ([id number])[facility] ([facility])[address] [place] [address] [place] RBC (Bld) [#/Vol] 3.91 10*6/uL Normal 3.80-5.20 [facility] Comment on above: Performed By: #### L [id number] ####It Application Development Manager: YOLETTE CROWE ([id number])[facility] (SBHLAB)[address] WBC (Bld) [#/Vol] 8.9 10*3/uL Normal 3.6-10.7 [facility] Comment on above: Performed By: #### L [id number] ####It Application Development Manager: YOLETTE CROWE ([id number])[facility] ([facility])[address] COMPREHENSIVE METABOLIC PANE Aamir 07-11-2024 Albumin [Mass/Vol] 3.0 g/dL Low 3.4-4.8 [facility] Comment on above: Performed By: #### L [id number] ####It Application Development Manager: YOLETTE CROWE ([id number])[facility] ([facility])[address] ALP [Catalytic activity/Vol] 55 U/L Normal 40-150 [facility] Comment on above: Performed By: #### L [id number] ####It Application Development Manager: YOLETTE CROWE ([id number])[facility] ([facility])[address] ALT [Catalytic activity/Vol] 10 U/L Normal <30 [facility] Comment on above: Performed By: #### L [id number] ####It Application Development Manager: YOLETTE CROWE ([id number])[facility] ([facility])[address] Anion gap [Moles/Vol] 8 mmol/L Normal 3-13 [facility] Comment on above: Performed By: #### L [id number] ####It Application Development Manager: YOLETTE CROWE ([id number])[facility] ([facility])[address] AST [Catalytic activity/Vol] 19 U/L Normal <34 [facility] Comment on above: Performed By: #### L [id number] ####It Application Development Manager: YOLETTE CROWE ([id number])[facility] ([facility])[address] Bilirubin [Mass/Vol] 0.2 mg/dL Normal <1.2 [facility] Comment on above: Performed By: #### L [id number] ####It Application Development Manager: YOLETTE CROWE ([id number])[facility] (SBHLAB)[address] Calcium [Mass/Vol] 8.5 mg/dL Low 8.8-10.0 [facility] Comment on above: Performed By: #### L [id number] ####It Application Development Manager: YOLETTE CROWE ([id number])[facility] ([facility])[address] Chloride [Moles/Vol] 112 mmol/L High 98-107 [facility] Comment on above: Performed By: #### L [id number] ####It Application Development Manager: YOLETTE CROWE ([id number])[facility] ([facility])[address] CO2 [Moles/Vol] 20 mmol/L Low 23-31 [facility] Comment on above: Performed By: #### L [id number] ####It Application Development Manager: YOLETTE CROWE ([id number])[facility] ([facility])[address] Creatinine [Mass/Vol] 2.12 mg/dL High 0.57-1.11 [facility] Comment on above: Performed By: #### L [id number] ####It Application Development Manager: YOLETTE CROWE ([id number])[facility] ([facility])[address] [place] [address] [place] GLOMERULAR FILTRATION RATE ML/MIN/1.73 SQ M.PREDICTED 25.9 mL/min/1.73m*2 Low >60.0 [facility] Comment on above: Result Comment: Calc ulation based on the Chronic Kidney Disease Epidemiology Collaboration (CKD-EPI) equation refit without adjustment for race Performed By: #### L [id number] ####It Application Development Manager: YOLETTE CROWE ([id number])[facility] ([facility])[address] Glucose [Mass/Vol] 120 mg/dL High 82-115 [facility] Comment on above: Performed By: #### L [id number] ####It Application Development Manager: YOLETTE HENDRICKSAnselmoGILBERT ([id number])[facility] (SBHLAB)[address] Potassium [Moles/Vol] 4.2 mmol/L Normal 3.5-5.1 [facility] Comment on above: Result Comment: [facility] potassium values may be up to 0.5 mmol/L lower than serum values. Performed By: #### L [id number] ####It Application Development Manager: YOLETTE CROWE ([id number])[facility] ([facility])[address] Protein [Mass/Vol] 6.5 g/dL Normal 6.4-8.3 [facility] Comment on above: Performed By: #### L [id number] ####It Application Development Manager: YOLETTE CROWE ([id number])[facility] (SBHLAB)[address] Sodium [Moles/Vol] 140 mmol/L Normal 136-145 [facility] Comment on above: Performed By: #### L [id number] ####It Application Development Manager: YOLETTE CROWE ([id number])[facility] ([facility])[address] Urea nitrogen [Mass/Vol] 48 mg/dL High 9-23 [facility] Comment on above: Performed By: #### L [id number] ####It Application Development Manager: YOLETTE CROWE ([id number])[facility] (SBHLAB)[address] Nursing Noteon 07-11-2024 Nursing Note Report given to Alfreda wilcox at [facility]. All questions answered at this time. Normal [facility] Nursing Note Called report to [facility], Nurse not available to accept call. Will try again at another time. Normal [facility] Progress Noteon 07-11-2024 Progress Note Seen and examined. Doing well. D/w pt and SUNDEEP Morrissey, separately. Will discharge today. Normal [facility] Progress Note OCCUPATIONAL THERAPY [facility] Treatment Note Name/MRN: Cinthya Castillo ([id number]) Date of : 1960 Age: 63 y.o. Room/Bed: [facility] A Visit #: 1 out of 8 visits Discharge Recommendation: Home with Home health OT (return to [place]) Equipment Needed: No Prior Level of Function Prior Level of ADL Function: Required Assist Prior Level of Mobility: Independent; Device: Front wheeled walker Prior Level of Transfers: Independent Assessment Pt is making gradual progress with OT for ADLs and transfers with pt overall at a min to mod A level with fair carryover during session. Pt remains limited from decrease strength and bal. Pt would benefit from ongoing skilled OT tx to increase indep with ADLs and transfers. OT is still recommending pt to discharge back to [facility] with home health OT. Subjective Pt supine in bed upon arrival and agreeable to OT tx. Pain: Pt reports chronic back pain but does not rate Medical Precautions: No active isolations Proper PPE donned/doffed in accordance with facility standards. Fall Risk: Kumar Fall Risk Score: 60 (Low Risk) Kumar Fall Risk Score: 60 (High Risk) Precautions/Restrictio ns: N/A Family/Caregiver Present: none Objective ADLs LE Dressing: Min Assist, Mod Assist Pt training for ADLs while seated with intermittent standing with mod to max A for initiation of items with setup and then min A with standing to complete pulling up. Bed Mobility Supine to sit: Contact Guard HOB Elevated Use of bed rail(s) Left seated in recliner at end of session Transfers/Mobility Sit to stand: Min Assist Stand to sit: Min Assist Standing balance: Min Assist Functional mobility: Min Assist Pt training for transfers to FWW with min cues for tech and safety with fair carryover by pt with no true LOB noted. Pt completed standing with FWW for ADLs and mob with pt jodi 2-3 min intervals before needing to rest due to pain and fatigue with pt only able to ambulate short distance in room this date. Device(s) used: Front wheeled walker Cognition - Arousal/alertness: appropriate responses to stimuli - Following commands: inconsistently follows commands - Sequencing: requires cues for all Plan Continue acute OT per plan of care. Safety/Education Safety Safety Devices in place: All fall risk precautions in place, call light within reach, left in chair, chair alarm in place, gait belt, patient at risk for falls, and nurse notified Restraints: No Education Education Given To: patient Education Provided: Precautions, ADL Adaptive Strategies, Transfer Training, and Fall Prevention Education Education Method: Verbal and Demonstration Barriers to Learning: Cognition Education Outcome: Verbalized Understanding and Continued Education Needed AM-PAC AM-PAC Inpatient Daily Activity Raw Score: 17 ADL Inpatient CMS G-Code Modifier: CK Goals Patient Stated Goal: To not have pain Encounter Problems Encounter Problems (Active) Balance Patient will maintain dynamic standing balance for 4 minutes with modified independence in order to demonstrate decreased risk of falling. (Progressing) Start: 07/10/24 Expected End: 07/18/24 Dressing Upper Extremities Patient will complete upper body dressing with mod I (Not Addressed) Start: 07/10/24 Expected End: 07/18/24 Dressings Lower Extremities Patient will dress lower body with min A (Progressing) Start: 07/10/24 Expected End: 07/18/24 Mobility Patient will demonstrate functional ambulation using FWW and supervision (Progressing) Start: 07/10/24 Expected End: 07/18/24 Toileting Patient will complete toileting tasks at standard toilet with supervision. (Not Addressed) Start: 07/10/24 Expected End: 07/18/24 Transfers Patient will complete functional transfer with FWW with supervision in order to prepare for ambulation. (Progressing) Start: 07/10/24 Expected End: 07/18/24 Patient will perform bed mobility with modified independence in order to improve independence and prepare for out of bed mobility. (Progressing) Start: 07/10/24 Expected End: 07/18/24 Therapy Time Individual Co-treatment Time In 0831 Time Out 0857 Minutes 26 Timed Code Treatment Minutes: 26 Minutes (1 ADL, 1 ACT) ILYA Bourne/Jaky [facility] 30on 07-10-2024 30 Problem: Knowledge Deficit Goal: Patient/family/caregiv er demonstrates understanding of disease process, treatment plan, medications, and discharge instructions Outcome: Progressing Flowsheets (Taken 07/10/2024 7393) Patient/family/caregiv er demonstrates understanding of disease process, treatment plan, medications, and discharge instructions: Provide teaching at level of understanding Problem: Potential for Compromised Skin Integrity Goal: Skin Integrity is Maintained or Improved Outcome: Progressing Flowsheets (Taken 07/10/20242252) Skin integrity is maintained or improved: Assess and monitor skin integrity Goal: Nutritional status is improving Outcome: Progressing Flowsheets (Taken 07/10/20242252) Nutritional status is improving: Monitor and assess patient for malnutrition (ex- brittle hair, bruises, dry skin, pale skin and conjunctiva, muscle wasting, smooth red tongue, and disorientation) Problem: Urinary Incontinence Goal: Perineal skin integrity is maintained or improved Outcome: Progressing Flowsheets (Taken 07/10/20242252) Perineal skin integrity is maintained or improved: Assess genitourinary system, perineal skin, labs (urinalysis), and history of incontinence to include past management, aggravating, and alleviating factors Keep skin clean and dry [facility] 30 Problem: Knowledge Deficit Goal: Patient/family/caregiv er demonstrates understanding of disease process, treatment plan, medications, and discharge instructions Outcome: Progressing Problem: Potential for Compromised Skin Integrity Goal: Skin Integrity is Maintained or Improved Outcome: Progressing Goal: Nutritional status is improving Outcome: Progressing Problem: Urinary Incontinence Goal: Perineal skin integrity is maintained or improved Outcome: Progressing Normal [facility] [id number] 07-10-2024 [id number] Patient is from [facility], and was admitted with left leg cellulitis. Per Kristine at facility, she is a bedhold and is ok to return at discharge. She is currently receiving IV cefepime and vancomycin. PT/OT consulted. CM following to assist with discharge needs. [facility] [phone] Pt is on Medicaid an d from a facility ([facility]). If she returns, she will not need PASRR, per other social media marketing specialist, Ricardo Brown. [facility] BASIC METABOLIC PANELon 04-2 Anion gap [Moles/Vol] 8 mmol/L Normal 3-13 [facility] Comment on above: Performed By: #### L [id number] ####It Application Development Manager: YOLETTE CROWE ([id number])[facility] ([facility])[address] Calcium [Mass/Vol] 8.4 mg/dL Low 8.8-10.0 [facility] Comment on above: Performed By: #### L AB15 ####It Application Development Manager: YOLETTE CROWE ([id number])[facility] ([facility])[address] Chloride [Moles/Vol] 114 mmol/L High 98-107 [facility] Comment on above: Performed By: #### L AB15 ####It Application Development Manager: YOLETTE CROWE ([id number])[facility] ([facility])[address] CO2 [Moles/Vol] 20 mmol/L Low 23-31 [facility] Comment on above: Performed By: #### L AB15 ####It Application Development Manager: YOLETTE CROWE ([id number])[facility] ([facility]AB)[address] Creatinine [Mass/Vol] 2.13 mg/dL High 0.57-1.11 [facility] Comment on above: Performed By: #### L AB15 ####It Application Development Manager: YOLETTE CROWE ([id number])[facility] ([facility])[address] GLOMERULAR FILTRATION RATE ML/MIN/1.73 SQ M.PREDICTED 25.8 mL/min/1.73m*2 Low >60.0 [facility] Comment on above: Result Comment: Calc ulation based on the Chronic Kidney Disease Epidemiology Collaboration (CKD-EPI) equation refit without adjustment for race Performed By: #### L AB15 ####It Application Development Manager: YOLETTE CROWE ([id number])[facility] ([facility])[address] [place] [address] [place] Glucose [Mass/Vol] 150 mg/dL High 82-115 [facility] Comment on above: Performed By: #### L AB15 ####It Application Development Manager: YOLETTE CROWE ([id number])[facility] (SBHLAB)[address] Potassium [Moles/Vol] 4.8 mmol/L Normal 3.5-5.1 [facility] Comment on above: Result Comment: [facility] potassium values may be up to 0.5 mmol/L lower than serum values. Performed By: #### L AB15 ####It Application Development Manager: YOLETTE CROWE ([id number])[facility]ILITY[facility] (SBHLAB)[address] Sodium [Moles/Vol] 142 mmol/L Normal 136-145 [facility] Comment on above: Performed By: #### L AB15 ####It Application Development Manager: YOLETTE CROWE ([id number])[facility] (SBHLAB)[address] Urea nitrogen [Mass/Vol] 54 mg/dL High 9-23 [facility] Comment on above: Performed By: #### L AB15 ####It Application Development Manager: YOLETTE CROWE ([id number])[facility] (SBHLAB)[address] [place] [address] CBC WITH AUTO DIFFERENTIALon 07-10-2024 Basophils (Bld) [#/Vol] 0.1 10*3/uL Normal 0.0-0.2 [facility] Comment on above: Performed By: #### L [id number] ####It Application Development Manager: YOLETTE CROWE ([id number])[facility] (SBHLAB)[address] Basophils/100 WBC (Bld) 0.7 % Normal 0.0-2.0 [facility] Comment on above: Performed By: #### L [id number] ####It Application Development Manager: YOLETTE CROWE ([id number])[facility] (SBHLAB)[address] [place] [address] Eosinophils (Bld) [#/Vol] 0.4 10*3/uL Normal 0.0-0.5 [facility] Comment on above: Performed By: #### L [id number] ####It Application Development Manager: YOLETTE CROWE ([id number])[facility] ([facility])[address] Eosinophils/100 WBC (Bld) 4.8 % Normal 0.0-6.0 [facility] Comment on above: Performed By: #### L [id number] ####It Application Development Manager: YOLETTE CROWE ([id number])[facility] ([facility])[address] [place] [address] Erythrocyte distribution width (RBC) [Ratio] 12.9 % Normal 11.5-15.0 [facility] Comment on above: Performed By: #### L [id number] ####It Application Development Manager: YOLETTE CROWE ([id number])[facility] (SBAB)[address] [place] [address] Hematocrit (Bld) [Volume fraction] 37.2 % Normal 35.0-47.0 [facility] Comment on above: Performed By: #### L [id number] ####It Application Development Manager: YOLETTE CROWE ([id number])[facility] (SBAB)[address] [place] [address] Hemoglobin (Bld) [Mass/Vol] 11.4 g/dL Low 11.7-16.0 [facility] Comment on above: Performed By: #### L [id number] ####It Application Development Manager: YOLETTE CROWE ([phone])[facility] (SB[facility])[address] [place] [address] IMMATURE GRANS % 0.6 % Normal 0.0-2.0 [facility] Comment on above: Performed By: #### L [id number] ####It Application Development Manager: YOLETTE CROWE ([id number])[facility] (SBAB)[address] IMMATURE GRANS ABSOLUTE 0.1 10*3/uL High <0.1 [facility] Comment on above: Performed By: #### L [id number] ####It Application Development Manager: YOLETTE CROWE ([id number])[facility]EL[facility]ón KUNZCROWNPOINT [facility] FACILITYKina (SBHLAB)[address] Lymphocytes (Bld) [#/Vol] 1.9 10*3/uL Normal 1.0-4.3 [facility] Comment on above: Performed By: #### L [id number] ####It Application Development Manager: YOLETTE CROWE ([id number])[facility] (SBHLAB)[address] Lymphocytes/100 WBC (Bld) 22.4 % Normal 15.0-45.0 [facility] Comment on above: Performed By: #### L [id number] ####It Application Development Manager: YOLETTE CROWE ([id number])[facility] ([facility])[address] MCH (RBC) [Entitic mass] 28.5 pg Normal 26.0-34.0 [facility] Comment on above: Performed By: #### L [id number] ####It Application Development Manager: YOLETTE CROWE ([id number])[facility] (SBHLAB)[address] MCHC 30.6 % Normal 30.5-36.0 [facility] Comment on above: Performed By: #### L [id number] ####It Application Development Manager: YOLETTE CROWE ([id number])[facility] (SBHLAB)[address] MCV (RBC) [Entitic vol] 93.0 fL Normal 77.0-99.0 [facility] Comment on above: Performed By: #### L [id number] ####It Application Development Manager: YOLETTE CROWE ([id number])[facility] ([facility])[address] Monocytes (Bld) [#/Vol] 1.0 10*3/uL High 0.0-0.9 [facility] Comment on above: Performed By: #### L [id number] ####It Application Development Manager: YOLETTE CROWE ([id number])[facility] (SBHLAB)[address] Monocytes/100 WBC (Bld) 12.3 % Normal 5.0-13.0 [facility] Comment on above: Performed By: #### L [id number] ####It Application Development Manager: YOLETTE CROWE ([id number])[facility] ([facility])[address] NEUTROPHILS ABSOLUTE 5.0 10*3/uL Normal 1.8-7.5 [facility] Comment on above: Performed By: #### L [id number] ####It Application Development Manager: YOLETTE CROWE ([id number])[facility] ([facility])[address] Neutrophils/100 WBC (Bld) 59.2 % Normal 38.0-82.0 [facility] Comment on above: Performed By: #### L [id number] ####It Application Development Manager: YOLETTE CROWE ([id number])[facility] ([facility])[address] NRBC 0.0 /100 WBCs Normal 0.0-2.0 [facility] Comment on above: Performed By: #### L [id number] ####It Application Development Manager: YOLETTE CROWE ([phone])[facility] ([facility])[address] Platelet mean volume (Bld) [Entitic vol] 9.5 fL Normal 9.0-12.7 [facility] Comment on above: Performed By: #### L [id number] ####It Application Development Manager: YOLETTE CROWE ([id number])[facility] ([facility])[address] Platelets (Bld) [#/Vol] 258 10*3/uL Normal 140-440 [facility] Comment on above: Performed By: #### L [id number] ####It Application Development Manager: YOLETTE CROWE ([id number])[facility] (SBHLAB)[address] [place] [address] RBC (Bld) [#/Vol] 4.00 10*6/uL Normal 3.80-5.20 [facility] Comment on above: Performed By: #### L [id number] ####It Application Development Manager: YOLETTE SEBASTIEN ([id number])[facility] (SBHLAB)[address] [place] [address] WBC (Bld) [#/Vol] 8.5 10*3/uL Normal 3.6-10.7 [facility] Comment on above: Performed By: #### L [id number] ####It Application Development Manager: YOLETTE HENDRICKSDANIEL ([id number])[facility] (SBHLAB)[address] [place] [address] Consulton 07-10-2024 Consult Vancomycin therapy h as been discontinued by Dr. Sy on 07/10/24. Thank you for the consult. Pharmacy signing off for vancomycin dosing. Sandy Ruiz [facility] Date: 07/10/24 Time: 12:02 PM Normal [facility] Consult [facility] Wound Care CONSULT Note Cinthya Castillo AGE: 63 y.o. GENDER: female : 1960 Subjective: HISTORY of PRESENT ILLNESS HPI Cinthya Castillo is a 63 y.o. female who presents for a wound consult. HPI: Cinthya is a 63 y.o. female with past medical history significant for asthma, developmental delay, type 2 diabetes, hiatal hernia, hypertension. Patient presented to the emergency room on 07/08/24 with complaint of chest pain and shortness of breath. Wound Care consulted for "Wound to LLE" PAST MEDICAL HISTORY Past Medical History: Diagnosis Date Asthma Developmental delay Diabetes mellitus (HCC) Diverticulosis Hiatal hernia Hypertension STEFANI (obstructive sleep apnea) PAST SURGICAL HISTORY Past Surgical History: Procedure Laterality Date ANKLE SURGERY COLONOSCOPY N/A 12/11/2022 Performed by Micheal Silva MD at [facility] [address] FAMILY HISTORY Family History Problem Relation Name Age of Onset No Known Problems Father No Known Problems Mother SOCIAL HISTORY Social History Tobacco Use Smoking status: Former Smokeless tobacco: Never Vaping Use Vaping status: Never Used Substance Use Topics Alcohol use: No Drug use: No ALLERGIES Allergies Allergen Reactions Penicillins Unknown unsure Pt unaware of reaction. Tolerated cephalexin 02/2018 MEDICATIONS No current facility-administered medications on file prior to encounter. Current Outpatient Medications on File Prior to Encounter Medication Sig Dispense Refill acetaminophen (Tylenol) 325 MG suppository Insert into the rectum. aspirin 81 MG EC tablet Take 81 mg by mouth daily. atorvastatin (Lipitor) 20 MG tablet Take 20 mg by mouth daily. doxycycline (Vibramycin) 100 MG capsule Take 1 capsule (100 mg) by mouth 2 times daily for 7 days. Take with at least 8 ounces (large glass) of water, do not lie down for 30 minutes after 14 capsule 0 dulaglutide (Trulicity) 3 MG/0.5ML solution pen-injector Inject 3 mg under the skin 1 (one) time per week. escitalopram (Lexapro) 10 MG tablet Take 10 mg by mouth daily. fenofibrate micronized (Lofibra) 67 MG capsule Take 67 mg by mouth daily (with breakfast). hydrALAZINE (Apresoline) 50 MG tablet Take by mouth. insulin glargine (Lantus) 100 UNIT/ML injection Inject 60 Units under the skin Nightly. levothyroxine (Synthroid, Levoxyl) 75 MCG tablet Take by mouth every morning (before breakfast). lisinopril 40 MG tablet Take 40 mg by mouth daily. metFORMIN (Glucophage) 500 MG tablet Take by mouth 2 times daily (with meals). metoprolol succinate XL (Toprol-XL) 100 MG 24 hr tablet Take by mouth. Do not crush or chew. rOPINIRole (Requip) 0.5 MG tablet Take 0.5 mg by mouth 3 times daily. senna-docusate (Roxanne-Colace) 8.6-50 MG tablet Take 1 tablet by mouth daily. D-MANNOSE PO Take by mouth. gabapentin (Neurontin) 400 MG capsule Take 400 mg by mouth 3 times daily. REVIEW OF SYSTEMS Pertinent items are noted in HPI. Objective: BP 144/75 (BP Location: Left arm, Patient Position: Lying) Pulse 79 Temp 36.2 ?C (97.2 ?F) (Temporal) Resp 18 Ht 1.676 m (5' 6") Wt (!) 137 kg (303 lb) SpO2 96% BMI 48.91 kg/m? PHYSICAL EXAM General appearance: in no apparent distress, well developed and well nourished, in no respiratory distress and acyanotic, and alert Skin: warm and dry Pulmonary: Normal effort, no respiratory distress, no cyanosis Left medial lower lex6.5x0.1cm. Wound bed with red and pink tissue present. Small serosang drainage noted. Roxanne wound with edema, erythema, no warmth, and fragile. 07/10/24 Bilateral buttocks: No open wounds noted. Skin is moist with thick peeling skin, fragile. 07/10/24 LABS CBC: Lab Results Component Value Date WBC 8.5 07/10/2024 HGB 11.4 (L) 07/10/2024 HCT 37.2 07/10/2024 MCV 93.0 07/10/2024 PLT 258 07/10/2024 BMP: Lab Results Component Value Date NA 142 07/10/2024 K 4.8 07/10/2024 CL 114 (H) 07/10/2024 CO2 20 (L) 07/10/2024 BUN 54 (H) 07/10/2024 CREATININE 2.13 (H) 07/10/2024 PT/INR: No results found for: "PROTIME", INR Prealbumin: No results found for: PREALBUMIN Albumin:No components found for: "LABALBU" Sed Rate:No results found for: "SEDRATE" Micro: No components found for: "BC" Assessment/Plan: Nursing staff to perform dressing change: Left medial lower leg: Venous ulcer (Skin) -cleanse with NS, apply adaptic, cover with foam dressing daily and PRN. Bilateral buttocks: MASD (Bodily Fluids) -cleanse with soap and water, apply ET mix TID and PRN, leave BRUCE -waffle chair cushion -Q2hr/PRN turns -glide sheets for T&R -continence checks Q1-2 Hrs/PRN Nutritional support Wound Care to follow Recommend to follow up at [facility] Outpatient wound care center after hospital discharge. Any questions or concerns please secure chat "[facility] wound/ostomy". Thank you for the consult! I pe (more content not included)... Normal [facility] Progress Noteon 07-10-2024 Progress Note -- Attestation signed by Benny Beltran OT at 07/10/2024 2:13 PM I certify that I was present during the entire session and guided the care given by the Student Occupational Therapist. Cosign: OCCUPATIONAL THERAPY [facility] Initial Evaluation Name/MRN: Cinthya Castillo ([id number]) Evaluation Date: 07/10/2024 Date of : 1960 Admission Date: 07/08/2024 7:50 PM Age: 63 y.o. Room[facility]Bed: B4465[facility] Discharge Recommendation: Home with Home health OT (Return to assisted living facility) Equipment Needed: No Assessment IMPRESSION: Pt seen on 07/10 for left leg cellulitis. Pt previously living in assisted living facility and receives help for LB ADLs. Pt presents with a developmental delay. Pt previously independent in all functional UB ADL tasks and functional transfers/mobility using FWW. Pt currently Max A for LB ADLS, CGA for UB ADLS, Lilly/CGA for transfers, and CGA for functional mobility with FWW. Pt is currently limited by pain, fatigue, weakness, and poor safety awareness. Pt would benefit from continued skilled OT services at this time to address deficits provided. Recommend plan of discharge to assisted living facility. Admitting Diagnosis: Left leg cellulitis Performance Deficits /Impairments: Increased Pain, Decreased Functional Mobility, Decreased ADL status, Decreased Strength, Decreased Safety Awareness, Decreased Endurance, Decreased Balance, Decreased High Level IADLs, and Decreased Cognition Prognosis: Good Decision Making: Medium Complexity Subjective Pt pleasant and agreeable to therapy services. Services approved by her RN, bg for therapy. Pain: 0-10 pain scale: 9/10 Location: Low back Past Medical History: Past Medical History: Diagnosis Date Asthma Developmental delay Diabetes mellitus (HCC) Diverticulosis Hiatal hernia Hypertension STEFANI (obstructive sleep apnea) Past Surgical History: Past Surgical History: Procedure Laterality Date ANKLE SURGERY COLONOSCOPY N/A 12/11/2022 Performed by Micheal Silva MD at [facility] Admission Diagnosis: Patient Active Problem List Diagnosis Date Noted Left leg cellulitis 07/08/2024 Shortness of breath 09/07/2023 Chronic kidney disease 09/07/2023 Lightheadedness 07/18/2018 Abdominal pain, left lower quadrant 07/18/2018 Hypertension 07/17/2018 Type 2 diabetes mellitus with hyperglycemia, without long-term current use of insulin (HCC) 07/17/2018 Nausea & vomiting 07/17/2018 Diabetes mellitus type 2 in obese ([facility]) 12/19/2017 Hypoglycemia 12/19/2017 Neuropathy 12/19/2017 Intertrigo 12/19/2017 CAD (coronary artery disease) 12/19/2017 Generalized weakness 12/10/2017 Acute renal injury (HCC) 12/10/2017 Medical Precautions: No active isolations Proper PPE donned/doffed in accordance with facility standards. Fall Risk: Kumar Fall Risk Score: 60 (Low Risk) Kumar Fall Risk Score: 60 (High Risk) Precautions/Restrictio ns: N/A Family/Caregiver Present: none Overall Cognitive Status: Exceptions - Following commands: follows one step commands consistently, follows one step commands with increased time, and follows one step commands with repetition - Attention span: attends with cues to redirect - Safety judgement: decreased awareness of need for assistance and decreased awareness of need for safety - Problem solving: assistance required to generate solutions, assistance required to implement solutions, assistance required to identify errors made, and assistance required to correct errors made - Initiation: requires cues for some - Sequencing: requires cues for some Overall Orientation Status: Oriented to Person Social/Functional History Patient admitted from [facility]. Assistive Equipment: front wheeled walker Prior Level of Function Prior Level of ADL Function: Required Assist Prior Level of Mobility: Independent; Device: Front wheeled walker Prior Level of Transfers: Independent Objective ADLs LE Dressing: Max Assist Toileting: Min Assist Pt completed LB dressing while laying supine in bed. Pt required max A for donning BLE socks. Pt demonstrates with functional strength/ROM to complete some LB dressing with no physical assist but cues and increased time provided (clothing management above knees-waist). Pt demonstrates with poor strength/ROM to complete seated/standing LB ADLs with no physical assistance. Pt demonstrates increased strength in UB to complete seated UB ADLs with no physical assistance, however increased assistance for standing UB ADLs due to fatigue and poor safety awareness. Increased time required for all. Pt educated on good hand placement, BLE management, and device management prior to c (more content not included)... Normal [facility] Progress Note Nutrition rescreen completed. Chart reviewed. Patient to be monitored and followed by the diet avionics repair technician. Normal [facility] VANCOMYCIN, AUC TIMED DOSING on 07-10-2024 VANCOMYCIN, AUC 20.3 ug/mL Normal [facility] Comment on above: Result Comment: NICOLEE R COMMENTS: Please draw random level at least >2 hours after the end of the last vancomycin infusion, or 30-minutes before next infusion. Toxicity is seen at concentrations >80-100 ug/mL Therapeutic (Peak) range: 20-40 Therapeutic (Trough) range: 5-10 Performed By: #### L [id number] ####It Application Development Manager: YOLETTE CROWE ([id number])[facility] ([facility])[address] [place] [address] CBC WITH AUTO DIFFERENTIALon 07-09-2024 Basophils (Bld) [#/Vol] 0.1 10*3/uL Normal 0.0-0.2 [facility] Comment on above: Performed By: #### L [id number] ####It Application Development Manager: YOLETTE CROWE ([id number])[facility] ([facility])[address] [place] [address] Basophils/100 WBC (Bld) 0.6 % Normal 0.0-2.0 [facility] Comment on above: Performed By: #### L [id number] ####It Application Development Manager: YOLETTE CROWE ([id number])[facility] ([facility])[address] Eosinophils (Bld) [#/Vol] 0.3 10*3/uL Normal 0.0-0.5 [facility] Comment on above: Performed By: #### L [id number] ####It Application Development Manager: YOLETTE CROWE ([id number])[facility] ([facility])[address] Eosinophils/100 WBC (Bld) 4.0 % Normal 0.0-6.0 [facility] Comment on above: Performed By: #### L [id number] ####It Application Development Manager: YOLETTE CROWE ([id number])[facility] ([facility])[address] Erythrocyte distribution width (RBC) [Ratio] 13.4 % Normal 11.5-15.0 [facility] Comment on above: Performed By: #### L [id number] ####It Application Development Manager: YOLETTE CROWE ([id number])[facility] ([facility])[address] [place] [address] Hematocrit (Bld) [Volume fraction] 34.9 % Low 35.0-47.0 [facility] Comment on above: Performed By: #### L [id number] ####It Application Development Manager: YOLETTE CROWE ([id number])[facility] ([facility])[address] [place] [address] Hemoglobin (Bld) [Mass/Vol] 11.4 g/dL Low 11.7-16.0 [facility] Comment on above: Performed By: #### L [id number] ####It Application Development Manager: YOLETTE CROWE ([id number])[facility] ([facility])[address] IMMATURE GRANS % 0.5 % Normal 0.0-2.0 [facility] Comment on above: Performed By: #### L [id number] ####It Application Development Manager: YOLETTE CROWE ([id number])[facility] ([facility])[address] IMMATURE GRANS ABSOLUTE 0.0 10*3/uL Normal <0.1 [facility] Comment on above: Performed By: #### L [id number] ####It Application Development Manager: YOLETTE CROWE ([id number])[facility] ([facility])[address] [place] [address] Lymphocytes (Bld) [#/Vol] 2.1 10*3/uL Normal 1.0-4.3 [facility] Comment on above: Performed By: #### L [id number] ####It Application Development Manager: YOLETTE CROWE ([id number])[facility] ([facility] [place] [address] Lymphocytes/100 WBC (Bld) 26.5 % Normal 15.0-45.0 [facility] Comment on above: Performed By: #### L [id number] ####It Application Development Manager: YOLETTE CROWE ([id number])[facility] ([facility])[address] [place] [address] MCH (RBC) [Entitic mass] 29.5 pg Normal 26.0-34.0 [facility] Comment on above: Performed By: #### L [id number] ####It Application Development Manager: YOLETTE CROWE ([id number])[facility] ([facility])[address] [place] [address] MCHC 32.7 % Normal 30.5-36.0 [facility] Comment on above: Performed By: #### L [id number] ####It Application Development Manager: YOLETTE CROWE ([id number])[facility] ([facility])[address] [place] [address] MCV (RBC) [Entitic vol] 90.2 fL Normal 77.0-99.0 [facility] Comment on above: Performed By: #### L [id number] ####It Application Development Manager: YOLETTE CROWE ([id number])[facility] ([facility])[address] Monocytes (Bld) [#/Vol] 1.0 10*3/uL High 0.0-0.9 [facility] Comment on above: Performed By: #### L [id number] ####It Application Development Manager: YOLETTE CROWE ([id number])[facility] ([facility])[address] Monocytes/100 WBC (Bld) 13.1 % High 5.0-13.0 [facility] Comment on above: Performed By: #### L [id number] ####It Application Development Manager: YOLETTE CROWE ([id number])[facility] ([facility])[address] NEUTROPHILS ABSOLUTE 4.3 10*3/uL Normal 1.8-7.5 [facility] Comment on above: Performed By: #### L [id number] ####It Application Development Manager: YOLETTE CROWE ([id number])[facility] ([facility])[address] Neutrophils/100 WBC (Bld) 55.3 % Normal 38.0-82.0 [facility] Comment on above: Performed By: #### L [id number] ####It Application Development Manager: YOLETTE CROWE ([id number])[facility] ([facility])[address] NRBC 0.0 /100 WBCs Normal 0.0-2.0 [facility] Comment on above: Performed By: #### L [id number] ####It Application Development Manager: YOLETTE CROWE ([id number])[facility] ([facility])[address] [place] [address] Platelet mean volume (Bld) [Entitic vol] 10.7 fL Normal 9.0-12.7 [facility] Comment on above: Performed By: #### L [id number] ####It Application Development Manager: YOLETTE CROWE ([id number])[facility] ([facility])[address] Platelets (Bld) [#/Vol] 376 10*3/uL Normal 140-440 [facility] Comment on above: Performed By: #### L [id number] ####It Application Development Manager: YOLETTE CROWE ([id number])[facility] ([facility])[address] RBC (Bld) [#/Vol] 3.87 10*6/uL Normal 3.80-5.20 [facility] Comment on above: Performed By: #### L [id number] ####It Application Development Manager: YOLETTE CROWE ([id number])[facility] ([facility])[address] WBC (Bld) [#/Vol] 7.8 10*3/uL Normal 3.6-10.7 [facility] Comment on above: Performed By: #### L [id number] ####It Application Development Manager: YOLETTE CROWE ([id number])[facility] ([facility])[address] COMPREHENSIVE METABOLIC PANE Aamir 07-09-2024 Albumin [Mass/Vol] 3.3 g/dL Low 3.4-4.8 [facility] Comment on above: Performed By: #### L [id number], LAB17 ####It Application Development Manager: YOLETTE CROWE ([id number])[facility] ([facility])[address] ALP [Catalytic activity/Vol] 59 U/L Normal 40-150 [facility] Comment on above: Performed By: #### L [id number], LAB17 ####It Application Development Manager: YOLETTE CROWE ([id number])[facility] ([facility])[address] ALT [Catalytic activity/Vol] 11 U/L Normal <30 [facility] Comment on above: Performed By: #### L [id number], LAB17 ####It Application Development Manager: YOLETTE CROWE ([id number])[facility] ([facility])[address] Anion gap [Moles/Vol] 8 mmol/L Normal 3-13 [facility] Comment on above: Performed By: #### L [id number], LAB17 ####It Application Development Manager: YOLETTE CROWE ([id number])[facility] ([facility])[address] AST [Catalytic activity/Vol] 20 U/L Normal <34 [facility] Comment on above: Performed By: #### L [id number], LAB17 ####It Application Development Manager: YOLETTE CROWE ([id number])[facility] ([facility])[address] Bilirubin [Mass/Vol] 0.3 mg/dL Normal <1.2 [facility] Comment on above: Performed By: #### L [id number], LAB17 ####It Application Development Manager: YOLETTE CROWE ([id number])[facility] ([facility])[address] Calcium [Mass/Vol] 8.4 mg/dL Low 8.8-10.0 [facility] Comment on above: Performed By: #### L [id number], LAB17 ####It Application Development Manager: YOLETTE CROWE ([id number])[facility] ([facility])[address] [place] [address] [place] Chloride [Moles/Vol] 112 mmol/L High 98-107 [facility] Comment on above: Performed By: #### L [id number], LAB17 ####It Application Development Manager: YOLETTE CROWE ([id number])[facility] ([facility])[address] [place] [address] [place] CO2 [Moles/Vol] 22 mmol/L Low 23-31 [facility] Comment on above: Performed By: #### L [id number], LAB17 ####It Application Development Manager: YOLETTE CROWE ([id number])[facility] ([facility])[address] Creatinine [Mass/Vol] 2.37 mg/dL High 0.57-1.11 [facility] Comment on above: Performed By: #### L [id number], LAB17 ####It Application Development Manager: YOLETTE CROWE ([id number])[facility] ([facility])[address] GLOMERULAR FILTRATION RATE ML/MIN/1.73 SQ M.PREDICTED 22.7 mL/min/1.73m*2 Low >60.0 [facility] Comment on above: Result Comment: Calc ulation based on the Chronic Kidney Disease Epidemiology Collaboration (CKD-EPI) equation refit without adjustment for race Performed By: #### L [id number], LAB17 ####It Application Development Manager: YOLETTE CROWE ([id number])[facility] ([facility])[address] [place] [address] [place] Glucose [Mass/Vol] 227 mg/dL High 82-115 [facility] Comment on above: Performed By: #### L [id number], LAB17 ####It Application Development Manager: YOLETTE CROWE ([id number])[facility] ([facility])[address] [place] [address] [place] Potassium [Moles/Vol] 4.6 mmol/L Normal 3.5-5.1 [facility] Comment on above: Result Comment: [facility] potassium values may be up to 0.5 mmol/L lower than serum values. Performed By: #### L [id number], LAB17 ####It Application Development Manager: YOLETTE CROWE ([id number])[facility] ([facility])[address] Protein [Mass/Vol] 6.5 g/dL Normal 6.4-8.3 [facility] Comment on above: Performed By: #### L [id number], LAB17 ####It Application Development Manager: YOLETTE CROWE ([id number])[facility] ([facility])[address] Sodium [Moles/Vol] 142 mmol/L Normal 136-145 [facility] Comment on above: Performed By: #### L [id number], LAB17 ####It Application Development Manager: YOLETTE CROWE ([id number])[facility] ([facility])[address] Urea nitrogen [Mass/Vol] 58 mg/dL High 9-23 [facility] Comment on above: Performed By: #### L [id number], LAB17 ####It Application Development Manager: YOLETTEFILIBERTO HENDRICKSDANIEL ([id number])[facility] ([facility])[address] [place] [address] Consulton 07-09-2024 Consult Pharmacy Managed Vancomycin Dosing Service Consult Note Consult Date: 07/09/24 Patient Name: Cinthya Castillo Allergies: Penicillins Age: 63 y.o. Sex: female Estimated body mass index is 48.91 kg/m? as calculated from the following: Height as of this encounter: 1.676 m (5' 6"). Weight as of this encounter: 137 kg (303 lb). DW: 137 kg Lab Results Component Value Date CREATININE 2.59 (H) 07/08/2024 CREATININE 2.14 (H) 07/03/2024 BUN 59 (H) 07/08/2024 BUN 58 (H) 07/03/2024 WBC 7.8 07/08/2024 WBC 9.4 07/03/2024 Calculated CrCl: 48 mL/min (Cockcroft-Gault) Consulted By: Omi Fernandez Infectious Diagnosis: SSTI (AUC Goal 400-600 mg/L*hr) Random Vancomycin Level Due: 07/10 Antimicrobials: Patient recently received an antibiotic (last 12 hours) Date/Time Action Medication Dose Rate 07/08/24 2237 New Bag vancomycin IVPB 1500 mg in 250 mL NS (premix) 1,500 mg 125 mL/hr 07/08/24 2156 New Bag cefepime (Maxipime) 2,000 mg in sodium chloride 0.9 % 50 mL IVPB Mini-Bag Plus 2,000 mg 100 mL/hr Assessment/Plan: Doses, serum creatinine, and vancomycin levels interfaced automatically to [employer] and data has been analyzed and interpreted. Start Vancomycin 750 mg every 24 hours based on patient age, weight, renal function, and infectious diagnosis (5.5 mg/kg). Predicted AUC = 516 mg/L*hr (goal 400-600 mg/L*hr) PAUC = 89% (probability that AUC is >400 mg/L*hr) Pconc = 28% (probability that Ctrough is above 20 mcg/mL (toxicity)) Will assess random level on 07/10/24 and adjust as appropriate. Trend serum creatinine. Orders placed. Thank you for this consult. Please secure text or call with questions. ____ DATE: 07/09/24 TIME: 1:23 AM Tierra Rollins, PharmD Clinical Pharmacist Available via Secure Chat Normal [facility] ECG 12-LEADon 07-09-2024 ECG 12-LEAD IMPRESSION: Sinus rhythm Inferior infarct, old Compared to ECG 07/03/24 at 1914 No significant change Electronically Signed On 07-09-2024 00:52:11 EDT by Grzegorz Guillen Normal [facility] HIGH SENSITIVITY TROPONIN, S ERIAL BASELINEon 07-09-2024 TROPONIN HS SERIAL BASELINE 6 ng/L Normal <=14 [facility] Comment on above: Result Comment: In i ndividuals presenting with symptoms > 2h, a baseline troponin <= 5 ng/L suggests acute cardiac injury is unlikely and further serial testing is generally not indicated. Performed By: #### L [id number], [id number] ####It Application Development Manager: YOLETTE CROWE ([id number])[facility] ([facility])[address] [place] [address] HIGH SENSITIVITY TROPONIN, S ERIAL, SECOND TESTon 07-09-2024 2H TROPONIN HS (SERIAL 2ND TROPONIN) 7 ng/L Normal <=14 [facility] Comment on above: Result Comment: 2h t roponin (2nd troponin) samples collected between 1h 40 min and 2h and 20 min of the baseline collection time can be utilized to interpret delta troponins as per [facility] algorithms. Samples collected outside this timeframe need to be interpreted clinically. Rising or falling troponin delta below 2 ng/L as compared to baseline value suggests that acute cardiac injury is unlikely. Performed By: #### L [id number] ####It Application Development Manager: YOLETTE CROWE ([id number])[facility]ILITY[facility] ([facility])[address] [place] [address] 2H TROPONIN HS (SERIAL 2ND TROPONIN) 6 ng/L Normal <=14 [facility] Comment on above: Result Comment: Risi ng or falling troponin delta below 2 ng/L as compared to baseline value suggests that acute cardiac injury is unlikely. Performed By: #### L [id number] ####It Application Development Manager: YOLETTE CROWE ([id number])[facility] ([facility])[address] [place] [address] CBC WITH AUTO DIFFERENTIALon 07-08-2024 Basophils (Bld) [#/Vol] 0.0 10*3/uL Normal 0.0-0.2 [facility] Comment on above: Performed By: #### L [id number] ####It Application Development Manager: LAURA BAUTISTA ([id number])[facility] SAM [facility] (SWRLAB)[address] [place] [address] Basophils/100 WBC (Bld) 0.5 % Normal 0.0-2.0 [facility] Comment on above: Performed By: #### L [id number] ####It Application Development Manager: LAURA BAUTISTA ([id number])[facility] (SWRLAB)[address] Eosinophils (Bld) [#/Vol] 0.3 10*3/uL Normal 0.0-0.5 [facility] Comment on above: Performed By: #### L [id number] ####It Application Development Manager: LAURA [id number])[facility] (SWRLAB)[address] [place] [address] [place] Eosinophils/100 WBC (Bld) 3.5 % Normal 0.0-6.0 [facility] Comment on above: Performed By: #### L [id number] ####It Application Development Manager: LAURA BAUTISTA ([id number])[facility] (SWRLAB)[address] [place] [address] Erythrocyte distribution width (RBC) [Ratio] 13.1 % Normal 11.5-15.0 [facility] Comment on above: Performed By: #### L [id number] ####It Application Development Manager: LAURA BAUTISTA ([id number])[facility] (SWRLAB)[address] [place] [address] Hematocrit (Bld) [Volume fraction] 37.2 % Normal 35.0-47.0 [facility] Comment on above: Performed By: #### L [id number] ####It Application Development Manager: LAURA BAUTISTA ([id number])[facility] (SWRLAB)[address] [place] [address] Hemoglobin (Bld) [Mass/Vol] 12.2 g/dL Normal 11.7-16.0 [facility] Comment on above: Performed By: #### L [id number] ####It Application Development Manager: LAURA BAUTISTA ([id number])[facility] (SWRLAB)[address] [place] [address] IMMATURE GRANS % 0.6 % Normal 0.0-2.0 [facility] Comment on above: Performed By: #### L [id number] ####It Application Development Manager: LAURA BAUTISTA ([id number])[facility] (SWRLAB)[address] [place] [address] IMMATURE GRANS ABSOLUTE 0.1 10*3/uL High <0.1 [facility] Comment on above: Performed By: #### L [id number] ####It Application Development Manager: LAURA BAUTISTA ([id number])[facility] [place] (SWRLAB)[address] [place] [address] [place] Lymphocytes (Bld) [#/Vol] 2.2 10*3/uL Normal 1.0-4.3 [facility] Comment on above: Performed By: #### L [id number] ####It Application Development Manager: LAURA BAUTISTA ([id number])[facility] (SWRLAB)[address] [place] [address] Lymphocytes/100 WBC (Bld) 28.6 % Normal 15.0-45.0 [facility] Comment on above: Performed By: #### L [id number] ####It Application Development Manager: LAURA BAUTISTA ([id number])[facility] (SWRLAB)[address] [place] [address] MCH (RBC) [Entitic mass] 29.5 pg Normal 26.0-34.0 [facility] Comment on above: Performed By: #### L [id number] ####It Application Development Manager: LAURA BAUTISTA ([id number])[facility] (SWRLAB)[address] [place] [address] MCHC 32.8 % Normal 30.5-36.0 [facility] Comment on above: Performed By: #### L [id number] ####It Application Development Manager: LAURA BAUTISTA ([id number])[facility] (SWRLAB)[address] [place] [address] MCV (RBC) [Entitic vol] 89.9 fL Normal 77.0-99.0 [facility] Comment on above: Performed By: #### L [id number] ####It Application Development Manager: LAURA BAUTISTA ([id number])[facility] (SWRLAB)[address] [place] [address] Monocytes (Bld) [#/Vol] 1.1 10*3/uL High 0.0-0.9 [facility] Comment on above: Performed By: #### L [id number] ####It Application Development Manager: LAURA BAUTISTA ([id number])[facility] (SWRLAB)[address] [place] [address] [place] Monocytes/100 WBC (Bld) 13.6 % High 5.0-13.0 [facility] Comment on above: Performed By: #### L [id number] ####It Application Development Manager: LAURA BAUTISTA ([id number])[facility] (SWRLAB)[address] [place] [address] [place] NEUTROPHILS ABSOLUTE 4.2 10*3/uL Normal 1.8-7.5 [facility] Comment on above: Performed By: #### L [id number] ####It Application Development Manager: LAURA BAUTISTA ([id number])[facility] (SWRLAB)[address] [place] [address] [place] Neutrophils/100 WBC (Bld) 53.2 % Normal 38.0-82.0 [facility] Comment on above: Performed By: #### L [id number] ####It Application Development Manager: LAURA BAUTISTA ([id number])[facility] (SWRLAB)[address] [place] [address] [place] NRBC 0.0 /100 WBCs Normal 0.0-2.0 [facility] Comment on above: Performed By: #### L [id number] ####It Application Development Manager: LAURA BAUTISTA ([id number])[facility] (SWRLAB)[address] [place] [address] [place] Platelet mean volume (Bld) [Entitic vol] 9.5 fL Normal 9.0-12.7 [facility] Comment on above: Result Comment: MPV is a calculated measurement using platelet volume ratio Performed By: #### L [id number] ####It Application Development Manager: LAURA BAUTISTA ([id number])[facility] (SWRLAB)[address] [place] [address] [place] Platelets (Bld) [#/Vol] 314 10*3/uL Normal 140-440 [facility] Comment on above: Performed By: #### L [id number] ####It Application Development Manager: LAURA BAUTISTA ([id number])[facility] (SWRLAB)[address] [place] [address] RBC (Bld) [#/Vol] 4.14 10*6/uL Normal 3.80-5.20 [facility] Comment on above: Performed By: #### L [id number] ####It Application Development Manager: LAURA BAUTISTA ([id number])[facility] (SWRLAB)[address] [place] [address] WBC (Bld) [#/Vol] 7.8 10*3/uL Normal 3.6-10.7 [facility] Comment on above: Performed By: #### Jaky [id number] ####It Application Development Manager: LAURA BAUTISTA ([id number])[facility] (SWRLAB)[address] [place] [address] COMPREHENSIVE METABOLIC PANE Aamir 07-08-2024 Albumin [Mass/Vol] 3.5 g/dL Normal 3.4-4.8 [facility] Comment on above: Performed By: #### L [id number], LAB17, [id number] ####It Application Development Manager: LAURA BAUTISTA ([id number])[facility] (SWRLAB)[address] [place] [address] ALP [Catalytic activity/Vol] 66 U/L Normal 40-150 [facility] Comment on above: Performed By: #### L [id number], LAB17, [id number] ####It Application Development Manager: LAURA BAUTISTA ([id number])[facility] CLAYTONSAM [facility] (SWRLAB)[address] [place] [address] ALT [Catalytic activity/Vol] 18 U/L Normal <30 [facility] Comment on above: Performed By: #### L [id number], LAB17, [id number] ####It Application Development Manager: LAURA BAUTISTA ([id number])[facility] (SWRLAB)[address] [place] [address] [place] Anion gap [Moles/Vol] 10 mmol/L Normal 3-13 [facility] Comment on above: Performed By: #### Jaky [id number], LAB17, [id number] ####It Application Development Manager: LAURA BAUTISTA ([id number])[facility] (SWRLAB)[address] [place] [address] [place] AST [Catalytic activity/Vol] 23 U/L Normal <34 [facility] Comment on above: Performed By: #### Jaky VACA, LAB17, [id number] ####It Application Development Manager: LAURA BAUTISTA ([id number])[facility] (SWRLAB)[address] [place] [address] [place] Bilirubin [Mass/Vol] 0.3 mg/dL Normal <1.2 [facility] Comment on above: Performed By: #### Jaky VACA, LAB17, [id number] ####It Application Development Manager: LAURA BAUTISTA ([id number])[facility] (SWRLAB)[address] [place] [address] [place] Calcium [Mass/Vol] 8.8 mg/dL Normal 8.8-10.0 [facility] Comment on above: Performed By: #### Jaky VACA, LAB17, [id number] ####It Application Development Manager: LAURA BAUTISTA ([id number])[facility] (SWRL[facility])[address] [place] [address] [place] Chloride [Moles/Vol] 110 mmol/L High 98-107 [facility] Comment on above: Performed By: #### Jaky VACA, LAB17, [id number] ####It Application Development Manager: LAURA BAUTISTA ([id number])[facility] (SWRLAB)[address] [place] [address] [place] CO2 [Moles/Vol] 21 mmol/L Low 23-[address] [facility] Comment on above: Performed By: #### Jaky VACA, LAB17, [id number] ####It Application Development Manager: LAURA BAUTISTA ([id number])[facility] (SWRLAB)[address] [place] [address] [place] Creatinine [Mass/Vol] 2.59 mg/dL High 0.57-1.11 [facility] Comment on above: Performed By: #### Jaky VACA, LAB17, [id number] ####It Application Development Manager: LAURA BAUTISTA ([id number])[facility] (SWRLAB)[address] [place] [address] [place] GLOMERULAR FILTRATION RATE ML/MIN/1.73 SQ M.PREDICTED 20.4 mL/min/1.73m*2 Low >60.0 [facility] Comment on above: Result Comment: Calc ulation based on the Chronic Kidney Disease Epidemiology Collaboration (CKD-EPI) equation refit without adjustment for race Performed By: #### Jaky VACA, LAB17, [id number] ####It Application Development Manager: LAURA BAUTISTA ([id number])[facility] (SWRLAB)[address] [place] [address] Glucose [Mass/Vol] 242 mg/dL High 82-115 [facility] Comment on above: Performed By: #### Jaky VACA, LAB17, [id number] ####It Application Development Manager: LAURA BAUTISTA ([id number])[facility] (SWRLAB)[address] [place] [address] Potassium [Moles/Vol] 4.8 mmol/L Normal 3.5-5.1 [facility] Comment on above: Result Comment: [facility] potassium values may be up to 0.5 mmol/L lower than serum values. Performed By: #### Jaky VACA, LAB17, [id number] ####It Application Development Manager: LAURA BAUTISTA ([id number])[facility]LAYTON[facility] (SWRLAB)[address] Protein [Mass/Vol] 7.3 g/dL Normal 6.4-8.3 [facility] Comment on above: Performed By: #### L AB106, LAB17, [id number] ####It Application Development Manager: LAURA BAUTISTA ([id number])[facility] (SWRLAB)[address] Sodium [Moles/Vol] 141 mmol/L Normal 136-145 [facility] Comment on above: Performed By: #### L AB106, LAB17, [id number] ####It Application Development Manager: LAURA BAUTISTA ([id number])[facility] (SW[facility])[address] Urea nitrogen [Mass/Vol] 59 mg/dL High 9-23 [facility] Comment on above: Performed By: #### L AB106, LAB17, [id number] ####It Application Development Manager: LAURA BAUTISTA ([id number])[facility] (SWRLAB)[address] [place] [address] ED Nursing Noteon 07-08-2024 ED Nursing Note Called report to Iesha on . Normal [facility] ED Provider Noteon ED Provider Note Emergency Department Encounter [facility] ED Patient: Cinthya Castillo : 1960 Date of Evaluation: 07/08/2024 ED Provider: Grzegorz Guillen DO Chief Complaint Chief Complaint Patient presents with ? Chest Pain Pt c/o chest pain and shortness of breath for approx 2 hours ? Shortness of Breath ? Wound Check Pt has a wound to the left lower leg she would like evaluated [place] Cinthya Castillo is a 63 y.o. female who presents to the emergency department complaining of chest pain. Patient reports that she developed chest pains 2 hours prior to arrival. It was in her chest, worse when she takes a deep breath. She does explain that she is not developed a wound in her left leg. She has been on antibiotics. Unsure how long but states it has been present for some time. Comes from nursing facility. Additional history obtained from : n/a Barriers to obtaining history from patient: n/a ROS: Review of Systems completed as follows: (Bold = positive, Not bold = negative) GENERAL: fevers, chills, malaise ENT: runny nose, congestion, sore throat, ear pain NEURO: weakness, numbness of tingling, headache CARDIOVASCULAR: chest pain, syncope PULMONARY: shortness of breath, cough, wheezing GASTROINTESTINAL: nausea, vomiting, abdominal pain, diarrhea, constipation, MUSCULOSKELETAL: pain GENITAL/URINARY: dysuria, hematuria, increased urinary frequency, hesitancy, flank pain SKIN: rash, lesions, wound Past History Past Medical History: Diagnosis Date ? Asthma ? Developmental delay ? Diabetes mellitus (HCC) ? Diverticulosis ? Hiatal hernia ? Hypertension ? STEFANI (obstructive sleep apnea) Past Surgical History: Procedure Laterality Date ? ANKLE SURGERY ? COLONOSCOPY N/A 12/11/2022 Performed by Micheal Silva MD at [address] ENDOSCOPY Social History Socioeconomic History ? Marital status: Single Tobacco Use ? Smoking status: Former ? Smokeless tobacco: Never Vaping Use ? Vaping status: Never Used Substance and Sexual Activity ? Alcohol use: No ? Drug use: No I have reviewed the history above as provided by nursing notes. Medications/Allergies Previous Medications ACETAMINOPHEN (TYLENOL) 325 MG SUPPOSITORY Insert into the rectum. ASPIRIN 81 MG EC TABLET Take 81 mg by mouth daily. ATORVASTATIN (LIPITOR) 20 MG TABLET Take 20 mg by mouth daily. D-MANNOSE PO Take by mouth. DOXYCYCLINE (VIBRAMYCIN) 100 MG CAPSULE Take 1 capsule (100 mg) by mouth 2 times daily for 7 days. Take with at least 8 ounces (large glass) of water, do not lie down for 30 minutes after DULAGLUTIDE (TRULICITY) 3 MG/0.5ML SOLUTION PEN-INJECTOR Inject 3 mg under the skin 1 (one) time per week. ESCITALOPRAM (LEXAPRO) 10 MG TABLET Take 10 mg by mouth daily. FENOFIBRATE MICRONIZED (LOFIBRA) 67 MG CAPSULE Take 67 mg by mouth daily (with breakfast). GABAPENTIN (NEURONTIN) 400 MG CAPSULE Take 400 mg by mouth 3 times daily. HYDRALAZINE (APRESOLINE) 50 MG TABLET Take by mouth. INSULIN GLARGINE (LANTUS) 100 UNIT/ML INJECTION Inject 60 Units under the skin Nightly. LEVOTHYROXINE (SYNTHROID, LEVOXYL) 75 MCG TABLET Take by mouth every morning (before breakfast). LISINOPRIL 40 MG TABLET Take 40 mg by mouth daily. METFORMIN (GLUCOPHAGE) 500 MG TABLET Take by mouth 2 times daily (with meals). METOPROLOL SUCCINATE XL (TOPROL-XL) 100 MG 24 HR TABLET Take by mouth. Do not crush or chew. ROPINIROLE (REQUIP) 0.5 MG TABLET Take 0.5 mg by mouth 3 times daily. SENNA-DOCUSATE (ROXANNE-COLACE) 8.6-50 MG TABLET Take 1 tablet by mouth daily. Allergies Allergen Reactions ? Penicillins Unknown unsure Pt unaware of reaction. Tolerated cephalexin 02/2018 I have reviewed the history above as provided by nursing notes. Physical Exam ED Triage Vitals [07/08/241953] Temp Heart Rate Resp BP 36.9 ?C (98.4 ?F) 82 18 121/80 SpO2 Temp Source Heart Rate Source Patient Position 98 % Oral Monitor Lying BP Location FiO2 (%) Right arm -- GENERAL: The patient appears nourished and normally developed. Vital signs as documented. EYES: PERRL. No scleral icterus or orbital trauma noted. HEENT: Mucous membranes moist. Nares patent without copious rhinorrhea. LUNGS: Lungs are clear to auscultation, without any respiratory distress. CARDIAC: Rhythm is regular. No murmur appreciated ABDOMEN: Nontender, soft, with no obvious masses, and no peritoneal signs. EXTREMITIES: The left lower extremity does have a small wound/ulceration. There is mild surrounding erythema. The left calf is slightly swollen compared to the right calf. Her dorsalis pedis pulses 2+. There is no palpable crepitus. No severe tenderness in the area. Non edematous, with no obvious deformities. NEURO: No obvious neurological deficits, normal sensation and strength bilaterally. Diagnostics Labs: Results for orders placed or performed during the hospital encounter of 07/08/24 ECG 12 lead Collectio (more content not included)... Normal [facility] HIGH SENSITIVITY TROPONIN, S ERIAL BASELINEon 07-08-2024 TROPONIN HS SERIAL BASELINE 5 ng/L Normal <=14 [facility] Comment on above: Result Comment: In i ndividuals presenting with symptoms > 2h, a baseline troponin <= 5 ng/L suggests acute cardiac injury is unlikely and further serial testing is generally not indicated. Performed By: #### L AB106, LAB17, [id number] ####It Application Development Manager: LAURA BAUTISTA ([phone])[facility] (SWRLAB)[address] [place] [address] HIGH SENSITIVITY TROPONIN, S ERIAL, SECOND TESTon 07-08-2024 2H TROPONIN HS (SERIAL 2ND TROPONIN) 6 ng/L Normal <=14 [facility] Comment on above: Result Comment: Risi ng or falling troponin delta below 2 ng/L as compared to baseline value suggests that acute cardiac injury is unlikely. Performed By: #### L [id number] ####It Application Development Manager: LAURA BAUTISTA ([id number])[facility] (SWRLAB)[address] [place] [address] NT PRO BNPon 07-08-2024 Natriuretic peptide B (Bld) [Mass/Vol] 116 pg/mL Normal <125 [facility] Comment on above: Performed By: #### L AB106, LAB17, [id number] ####It Application Development Manager: LAURA BAUTISTA ([id number])[facility] (SWRLAB)[address] [place] [address] Anion gap in Serum or Plasma Ordered By: Lxe Roca on 07-04-2024 Anion gap [Moles/Vol] 12 mmol/L -15 [facility] BUN/creatinine ratioOrdered By: Lex Roca on 07-04-2024 Urea nitrogen/Creatinine [Mass ratio] 23.6 mg/mg High 10-20 [facility] Bilirubin, totalOrdered By: Lex Roca on 07-04-2024 Bilirubin [Mass/Vol] 0.32 mg/dL 0.00-1.30 [facility] Carbon dioxide, total [Moles /volume] in Central venous bloodOrdered By: Lex Roca on 07-04-2024 CO2 [Moles/Vol] 20.5 mmol/L Low 21.0-32.0 [facility] Chloride assayOrdered By: Sony Roca on 07-04-2024 Chloride [Moles/Vol] 108 mmol/L 98-108 [facility] ECG 12-LEADon 07-04-2024 ECG 12-LEAD IMPRESSION: Sinus rhythm Inferior infarct, old Electronically Signed On 07-04-2024 01:40:59 EDT by Mari Chen [facility] Erythrocyte distribution wid th ratioOrdered By: Lex Roca on 07-04-2024 Erythrocyte distribution width (RBC) [Ratio] 13.2 % 11.6-14.6 [facility] Erythrocyte distribution wid th standard deviationOrdered By: Lex Roca on 07-04-2024 Erythrocyte distribution width (RBC) [Ratio] 43.6 fl 35.1-43.9 [facility] Glomerular filtration rate ( GFR) estimation/1.73 sq m using serum, plasma, or whole bOrdered By: Lex Roca on 07-04-2024 GFR/1.73 sq M.predicted among non-blacks MDRD (S/P/Bld) [Vol rate/Area] 24 mL/min/{1.73_m2} Low >60 [facility] Comment on above: mL/min/1.73m2 CKD-EP I Creatinine Equation (2020) Hematocrit Auto (Bld) [Volum e fraction]Ordered By: Lex Roca on 07-04-2024 Hematocrit (Bld) [Volume fraction] 36.5 % Low 37-47 [facility] Hemoglobin measurementOrdere d By: Lex Roca on 07-04-2024 Hemoglobin (Bld) [Mass/Vol] 11.9 g/dL Low 12.0-15.0 [facility] Laboratory - Chemistry and C hemistry - challengeOrdered By: Lex Roca on 07-04-2024 AST [Catalytic activity/Vol] 23 U/L <32 [facility] MCV (mean corpuscular volume ) determinationOrdered By: Lex Roca on 07-04-2024 MCV (RBC) [Entitic vol] 91.0 fL 81-99 [facility] Mean corpuscular hemoglobin (MCH) determinationOrdered By: Lex Roca on 07-04-2024 MCH (RBC) [Entitic mass] 29.7 pg 27.0-32.0 [facility] Mean corpuscular hemoglobin concentration (MCHC) determinationOrdered By: Lex Roca on 07-04-2024 MCHC (RBC) [Mass/Vol] 32.6 g/dL 32-36 [facility] Mean platelet volume determi nationOrdered By: Lex Roca on 07-04-2024 Platelet mean volume (Bld) [Entitic vol] 9.8 fL 6.2-12.0 [facility] Natriuretic peptide.B prohor ace N-Terminal [Mass/volume] in Serum or PlasmaOrdered By: Lex Roca on 07-04-2024 Natriuretic peptide.B prohormone N-Terminal [Mass/Vol] 357 pg/mL <900 [facility] Comment on above: Heart Failure Unlike ly: < 300 pg/mLHeart Failure Likely< 50 Years: > 450 pg/mL50-75 Years: > 900 pg/mL>75 Years: > 1800 pg/mL Platelet countOrdered By: Sony Roca on 07-04-2024 Platelets (Bld) [#/Vol] 297 10*3/uL 150-450 [facility] Potassium measurement (mass/ volume)Ordered By: Lex Roca on 07-04-2024 Potassium (Unsp spec) [Mass/Vol] 4.3 mmol/L 3.3-5.1 [facility] RBC Auto (Bld) [#/Vol]Ordere d By: Lex Roca on 07-04-2024 RBC (Bld) [#/Vol] 4.01 10*6/uL Low 4.2-5.4 [facility] Serum creatinine measurement (mass/volume)Ordered By: Lex Roca on 07-04-2024 Creatinine [Mass/Vol] 2.22 mg/dL High 0.70-1.20 [facility] Serum globulin measurementOr dered By: Lex Roca on 07-04-2024 Globulin (S) [Mass/Vol] 3.4 g/dL 2.2-4.2 [facility] Serum glucose measurement (m ass/volume)Ordered By: Lex Roca on 07-04-2024 Glucose [Mass/Vol] 88 mg/dL 70-99 [facility] Serum or plasma alanine daily otransferase (ALT) measurementOrdered By: Lex Roca on 07-04-2024 ALT [Catalytic activity/Vol] 10 U/L <35 [facility] Serum or plasma albumin aba urement (mass/volume)Ordered By: Lex Roca on 07-04-2024 Albumin [Mass/Vol] 3.6 g/dL 3.4-4.8 [facility] Serum or plasma albumin/glob ulin mass ratioOrdered By: Lex Roca on 07-04-2024 Albumin/Globulin [Mass ratio] 1.1 {ratio} 0.9-2.4 [facility] Serum or plasma alkaline tamir sphatase measurementOrdered By: Lex Roca on 07-04-2024 ALP [Catalytic activity/Vol] 66 U/L 35-104 [facility] Serum or plasma calcium aba urement (mass/volume)Ordered By: Lex Roca on 07-04-2024 Calcium [Mass/Vol] 9.0 mg/dL 7.6-11.0 [facility] Serum or plasma urea nitroge n measurement (mass/volume)Ordered By: Lex Roca on 07-04-2024 Urea nitrogen [Mass/Vol] 52 mg/dL High 4-19 [facility] Sodium levelOrdered By: Iban Roca on 07-04-2024 Sodium [Moles/Vol] 141 mmol/L 133-145 [facility] Total proteinOrdered By: Tony Roca on 07-04-2024 Protein [Mass/Vol] 7.0 g/dL 5.9-8.4 [facility] Troponin T.cardiac [Mass/vol ume] in Serum or Plasma by High sensitivity methodOrdered By: Lex Roca on 07-04-2024 Troponin T.cardiac High sensitivity method [Mass/Vol] 33 ng/L High <14 [facility] White blood cell (WBC) count Ordered By: Lex Roca on 07-04-2024 WBC (Bld) [#/Vol] 7.5 10*3/uL 4.4-11.0 [facility] BASIC METABOLIC PANELon 06-20 Anion gap [Moles/Vol] 10 mmol/L Normal 3-13 [facility] Comment on above: Performed By: #### L [id number], LAB15 ####It Application Development Manager: LAURA BAUTISTA ([id number])[facility] (SWRLAB)[address] [place] [address] [place] Calcium [Mass/Vol] 8.7 mg/dL Low 8.8-10.0 [facility] Comment on above: Performed By: #### L [id number], LAB15 ####It Application Development Manager: LAURA BAUTISTA ([id number])[facility] (SWRLAB)[address] [place] [address] [place] Chloride [Moles/Vol] 112 mmol/L High 98-107 [facility] Comment on above: Performed By: #### L [id number], LAB15 ####It Application Development Manager: LAURA BAUTISTA ([id number])[facility] (SWRL[facility])[address] [place] [address] [place] CO2 [Moles/Vol] 19 mmol/L Low 23-31 [facility] Center Comment on above: Performed By: #### L [id number], [id number] ####It Application Development Manager: LAURA BAUTISTA ([id number])[facility] (SWRL[facility])[address] [place] [address] [place] Creatinine [Mass/Vol] 2.14 mg/dL High 0.57-1.11 [facility] Comment on above: Performed By: #### L [id number], [id number] ####It Application Development Manager: LAURA BAUTISTA ([phone])[facility] ([facility])[address] [place] [address] [place] GLOMERULAR FILTRATION RATE ML/MIN/1.73 SQ M.PREDICTED 25.6 mL/min/1.73m*2 Low >60.0 [facility] Comment on above: Result Comment: Calc ulation based on the Chronic Kidney Disease Epidemiology Collaboration (CKD-EPI) equation refit without adjustment for race Performed By: #### L [id number], [id number] ####It Application Development Manager: LAURA BAUTISTA ([id number])[facility] ([facility])[address] [place] [address] [place] Glucose [Mass/Vol] 121 mg/dL High 82-115 [facility] Comment on above: Performed By: #### L [id number], [id number] ####It Application Development Manager: LAURA BAUTISTA ([id number])[facility] (SW[facility])[address] [place] [address] Potassium [Moles/Vol] 5.1 mmol/L Normal 3.5-5.1 [facility] Comment on above: Result Comment: [facility] potassium values may be up to 0.5 mmol/L lower than serum values. Performed By: #### L [id number], [id number] ####It Application Development Manager: LAURA BAUTISTA ([phone])[facility] ([facility])[address] [place] [address] Sodium [Moles/Vol] 141 mmol/L Normal 136-145 [facility] Comment on above: Performed By: #### L [id number], [id number] ####It Application Development Manager: LAURA BAUTISTA ([phone])[facility] ([facility])[address] [place] [address] Urea nitrogen [Mass/Vol] 58 mg/dL High 9-23 [facility] Comment on above: Performed By: #### L [id number], [id number] ####It Application Development Manager: LAURA BAUTISTA ([id number])[facility] ([facility])[address] [place] [address] CBC WITH AUTO DIFFERENTIALon 07-03-2024 Basophils (Bld) [#/Vol] 0.1 10*3/uL Normal 0.0-0.2 [facility] Comment on above: Performed By: #### L [id number] ####It Application Development Manager: LAURA BAUTISTA ([id number])[facility] ([facility])[address] [place] [address] Basophils/100 WBC (Bld) 0.6 % Normal 0.0-2.0 [facility] Comment on above: Performed By: #### L [id number] ####It Application Development Manager: LAURA BAUTISTA ([id number])[facility] (SWRL[facility])[address] [place] [address] Eosinophils (Bld) [#/Vol] 0.3 10*3/uL Normal 0.0-0.5 [facility] Comment on above: Performed By: #### L [id number] ####It Application Development Manager: LAURA BAUTISTA ([id number])[facility] ([facility])[address] [place] [address] Eosinophils/100 WBC (Bld) 3.0 % Normal 0.0-6.0 [facility] Comment on above: Performed By: #### L [id number] ####It Application Development Manager: LAURA BAUTISTA ([id number])[facility] ([facility])[address] [place] [address] Erythrocyte distribution width (RBC) [Ratio] 13.1 % Normal 11.5-15.0 [facility] Comment on above: Performed By: #### L [id number] ####It Application Development Manager: LAURA BAUTISTA ([id number])[facility] ([facility])[address] [place] [address] Hematocrit (Bld) [Volume fraction] 36.5 % Normal 35.0-47.0 [facility] Comment on above: Performed By: #### L [id number] ####It Application Development Manager: LAURA BAUTISTA ([phone])[facility] (SW[facility])[address] [place] [address] Hemoglobin (Bld) [Mass/Vol] 11.6 g/dL Low 11.7-16.0 [facility] Comment on above: Performed By: #### L [id number] ####It Application Development Manager: LAURA BAUTISTA ([id number])[facility] (SWRL[facility])[address] [place] [address] IMMATURE GRANS % 0.2 % Normal 0.0-2.0 [facility] Comment on above: Performed By: #### L [id number] ####It Application Development Manager: LAURA BAUTISTA ([phone])[facility] ([facility])[address] [place] [address] IMMATURE GRANS ABSOLUTE 0.0 10*3/uL Normal <0.1 [facility] Comment on above: Performed By: #### L [id number] ####It Application Development Manager: LAURA BAUTISTA ([id number])[facility] (SW[facility])[address] [place] [address] Lymphocytes (Bld) [#/Vol] 2.1 10*3/uL Normal 1.0-4.3 [facility] Comment on above: Performed By: #### L [id number] ####It Application Development Manager: LAURA BAUTISTA ([id number])[facility] ([facility])[address] [place] [address] Lymphocytes/100 WBC (Bld) 22.7 % Normal 15.0-45.0 [facility] Comment on above: Performed By: #### L [id number] ####It Application Development Manager: LAURA BAUTISTA ([id number])[facility] ([facility])[address] [place] [address] MCH (RBC) [Entitic mass] 28.7 pg Normal 26.0-34.0 [facility] Comment on above: Performed By: #### L [id number] ####It Application Development Manager: LAURA BAUTISTA ([id number])[facility] ([facility])[address] [place] [address] MCHC 31.8 % Normal 30.5-36.0 [facility] Comment on above: Performed By: #### L [id number] ####It Application Development Manager: LAURA BAUTISTA ([id number])[facility] (SWRL[facility])[address] [place] [address] [place] MCV (RBC) [Entitic vol] 90.3 fL Normal 77.0-99.0 [facility] Comment on above: Performed By: #### L [id number] ####It Application Development Manager: LAURA BAUTISTA ([id number])[facility] (SWRLAB)[address] [place] [address] [place] Monocytes (Bld) [#/Vol] 0.8 10*3/uL Normal 0.0-0.9 [facility] Comment on above: Performed By: #### L [id number] ####It Application Development Manager: LAURA BAUTISTA ([id number])[facility] CLAYTONSAM R[facility] (SWRLAB)[address] [place] [address] [place] Monocytes/100 WBC (Bld) 9.0 % Normal 5.0-13.0 [facility] Comment on above: Performed By: #### L [id number] ####It Application Development Manager: LAURA BAUTISTA ([id number])[facility]TON[facility] (SWRL[place])[address] [place] [address] [place] NEUTROPHILS ABSOLUTE 6.1 10*3/uL Normal 1.8-7.5 [facility] Comment on above: Performed By: #### L [id number] ####It Application Development Manager: LAURA BAUTISTA ([id number])[facility] (SWRL[place])[address] [place] [address] [place] Neutrophils/100 WBC (Bld) 64.5 % Normal 38.0-82.0 [facility] Comment on above: Performed By: #### L [id number] ####It Application Development Manager: LAURA BAUTISTA ([id number])[facility] (SWRL[place])[address] [place] [address] [place] NRBC 0.0 /100 WBCs Normal 0.0-2.0 [facility] Comment on above: Performed By: #### L [id number] ####It Application Development Manager: LAURA BAUTISTA ([id number])[facility] ([facility])[address] Platelet mean volume (Bld) [Entitic vol] 9.5 fL Normal 9.0-12.7 [facility] Comment on above: Result Comment: MPV is a calculated measurement using platelet volume ratio Performed By: #### L [id number] ####It Application Development Manager: LAURA BAUTISTA ([id number])[facility] (SW[facility])[address] [place] [address] [place] Platelets (Bld) [#/Vol] 320 10*3/uL Normal 140-440 [facility] Comment on above: Performed By: #### L [id number] ####It Application Development Manager: LAURA BAUTISTA ([id number])[facility] ([facility])[address] [place] [address] RBC (Bld) [#/Vol] 4.04 10*6/uL Normal 3.80-5.20 [facility] Comment on above: Performed By: #### L [id number] ####It Application Development Manager: LAURA BAUTISTA ([id number])[facility] ([facility])[address] [place] [address] WBC (Bld) [#/Vol] 9.4 10*3/uL Normal 3.6-10.7 [facility] Comment on above: Performed By: #### L [id number] ####It Application Development Manager: LAURA BAUTISTA ([id number])[facility] ([facility])[address] [place] [address] CT CHEST ABDOMEN PELVIS KYA OGRAM W AND/OR WO CONTRASTon 07-03-2024 CT CHEST ABDOMEN PELVIS ANGIOGRAM W AND/OR WO CONTRAST Patient Name: CINTHYA CASTILLO : 1960 Exam Date/Time: 07/03/2024 20:49 Procedure: CT CHEST ABDOMEN PELVIS ANGIOGRAM W AND/OR WO CONTRAST Ordering Provider: CHEN J Reason For Exam: r/o dissection CT ANGIOGRAPHY CHEST, ABDOMEN AND PELVIS: CLINICAL INDICATION: Dissection, chest pain TECHNIQUE: Transaxial sequence was performed through the chest, abdomen and pelvis initially without IV contrast and then again during dynamic intravenous infusion of 75 mL of nonionic contrast media, injected at a high flow rate following a transition mgr rn study. Multiplanar and 3D MIP reconstruction was performed concurrently with independent viewing software. Dose reduction was employed with automated exposure control. COMPARISON: 06/15/2024 FINDINGS: Exam quality: Good contrast enhancement of the vasculature. Non-Vascular examination: Airway: Tracheobronchial tree remains patent. Lungs: Bibasilar dependent atelectasis is observed. Otherwise, no evidence of focal consolidation. In the right middle lung lobe, 4 mm nodule is redemonstrated (series 7 axial image 259). In the left lower lung lobe, 4 mm nodule is noted (series 7 axial image 225). Pleura: No pleural thickening or effusion. Heart/Great vessels: Normal heart size with no pericardial effusion. There is mild-moderate coronary artery calcification. Mediastinum/Neisha: No enlarged mediastinal, hilar, or axillary lymph nodes. Thyroid: Thyroid is normal in appearance. Esophagus: Esophagus is unremarkable. Chest wall: Unremarkable. Thoracic osseous structures: No suspicious osseous lesions. Mild degenerative changes of the thoracic spine are observed. Liver: The liver is normal in size and contour. No focal hepatic lesions identified. Biliary system: The biliary system is not dilated. The gallbladder is normal in appearance. Spleen: The spleen is normal in size and contour. Pancreas: No significant abnormality. Adrenal glands: No significant abnormality. Kidneys/ Ureter: The bilateral kidneys are normal in size and contour. No evidence of hydroureteronephrosis. No evidence of nephrolithiasis. No evidence of focal renal lesions. Bladder: The bladder appears unremarkable. Pelvic organs: No masses or other significant abnormalities seen. Bowel: The stomach is unremarkable. The small bowel is of normal caliber throughout without evidence of wall thickening or obstruction. The appendix is unremarkable. The large bowel is without evidence of dilatation or thickening. Mesentery/Intraperiton eum: No intraperitoneal free fluid or air is seen. Mesentery is normal in appearance. Lymph nodes: No lymphadenopathy Abdominal wall: Fat-containing periumbilical hernia is noted. Abdominopelvic osseous structures: No suspicious osseous lesions identified. Mild degenerative changes of the lumbar spine are observed. Vascular examination: Pulmonary Arteries: There is suboptimal opacification of the pulmonary arteries. Within this limitation, there is no obvious evidence of filling defect in the main pulmonary arteries. Subsegmental evaluation is limited due to suboptimal contrast bolus. The pulmonary arteries normal in caliber. Aorta: Patent with no significant stenosis or aneurysmal dilatation. No aortic dissection identified. Celiac: Patent with no significant stenosis or aneurysmal dilatation. SMA: Patent with no significant stenosis or aneurysmal dilatation. NATHALIE: Patent with no significant stenosis or aneurysmal dilatation. Renal: Patent with no significant stenosis or aneurysmal dilatation. Accessory left renal artery noted. Iliac arteries: Patent with no significant stenosis or aneurysmal dilatation. Femorals: Patent with no significant stenosis or aneurysmal dilatation. Venous: The venous vasculature appears grossly unremarkable. IMPRESSION: No acute abdominopelvic process identified. No acute vascular pathology observed. Pulmonary nodules measuring up to 4 mm. For these nodule characteristics, Fleischner society recommends no routine follow-up in a low risk patient and optional CT at 12 months for a high risk patient. Fat-containing periumbilical hernia. Other chronic findings as discussed. Report Dictated on Electronically Signed By: Alex Torres MD Electronically Signed Date/Time: 07/03/2024 9:23 PM EDT complaints of chest pain that worsens with deep breaths starting this morning. Also complaining of bilateral leg pain and lower back pain as of today. Reports SOB, Normal [facility] ED Nursing Noteon 07-03-2024 ED Nursing Note Pt to ED with complaints of chest pain that worsens with deep breaths starting this morning. Also complaining of bilateral leg pain and lower back pain as of today. Reports SOB, pt talking in complete sentences in triage Normal [facility] ED Provider Noteon ED Provider Note EMERGENCY DEPARTMENT ENCOUNTER Pt Name: Cinthya Castillo Birthdate 1960 Date of evaluation: 07/03/2024 ED Provider: Mari Chen MD CHIEF COMPLAINT Chief Complaint Patient presents with Chest Pain Leg Pain Back Pain HISTORY OF PRESENT ILLNESS (Location/Symptom, Timing/Onset, Context/Setting, Quality, Duration, Modifying Factors, Severity) Note limiting factors. I wore appropriate PPE for the entirety of this encounter. HPI Cinthya Castillo is a 63 y.o. female who presents to the emergency department with chief complaint of pleuritic chest pain, pain to her bilateral lower extremities, and low back pain that began today. She denies any bowel incontinence or retention or saddle anesthesia. She endorses chronic intermittent urinary incontinence and subsequently has worn an adult diaper for several years. The patient states that her chest pain and back pain are a ripping sharp pain. She denies any trauma or falls. She states that she was told by her doctor that she has an infection to her left caldwell. She denies any hemoptysis. Nursing Notes were reviewed. Limitations to history: None Outside historians: None REVIEW OF SYSTEMS Review of Systems Pertinent positives and negatives as per HPI. PAST MEDICAL HISTORY Past Medical History: Diagnosis Date Asthma Developmental delay Diabetes mellitus (HCC) Diverticulosis Hiatal hernia Hypertension STEFANI (obstructive sleep apnea) SURGICAL HISTORY Past Surgical History: Procedure Laterality Date ANKLE SURGERY COLONOSCOPY N/A 12/11/2022 Performed by Micheal Silva MD at [address] ENDOSCOPY CURRENT MEDICATIONS Previous Medications ACETAMINOPHEN (TYLENOL) 325 MG SUPPOSITORY Insert into the rectum. ASPIRIN 81 MG EC TABLET Take 81 mg by mouth daily. ATORVASTATIN (LIPITOR) 20 MG TABLET Take 20 mg by mouth daily. D-MANNOSE PO Take by mouth. DULAGLUTIDE (TRULICITY) 3 MG/0.5ML SOLUTION PEN-INJECTOR Inject 3 mg under the skin 1 (one) time per week. ESCITALOPRAM (LEXAPRO) 10 MG TABLET Take 10 mg by mouth daily. FENOFIBRATE MICRONIZED (LOFIBRA) 67 MG CAPSULE Take 67 mg by mouth daily (with breakfast). GABAPENTIN (NEURONTIN) 400 MG CAPSULE Take 400 mg by mouth 3 times daily. HYDRALAZINE (APRESOLINE) 50 MG TABLET Take by mouth. INSULIN GLARGINE (LANTUS) 100 UNIT/ML INJECTION Inject 60 Units under the skin Nightly. LEVOTHYROXINE (SYNTHROID, LEVOXYL) 75 MCG TABLET Take by mouth every morning (before breakfast). LISINOPRIL 40 MG TABLET Take 40 mg by mouth daily. METFORMIN (GLUCOPHAGE) 500 MG TABLET Take by mouth 2 times daily (with meals). METOPROLOL SUCCINATE XL (TOPROL-XL) 100 MG 24 HR TABLET Take by mouth. Do not crush or chew. ROPINIROLE (REQUIP) 0.5 MG TABLET Take 0.5 mg by mouth 3 times daily. SENNA-DOCUSATE (ROXANNE-COLACE) 8.6-50 MG TABLET Take 1 tablet by mouth daily. ALLERGIES Penicillins FAMILY HISTORY Family History Problem Relation Name Age of Onset No Known Problems Father No Known Problems Mother SOCIAL HISTORY Social History Socioeconomic History Marital status: Single Tobacco Use Smoking status: Former Smokeless tobacco: Never Vaping Use Vaping status: Never Used Substance and Sexual Activity Alcohol use: No Drug use: No SCREENINGS HEART Score History: Moderately suspicious ECG: Normal Age: 45-64 Risk Factors: >2 risk factors or hx of atherosclerotic disease Troponin: Less than or equal to normal limit HEART Score: 4 PHYSICAL EXAM ED Triage Vitals [07/03/24 191] Temp Heart Rate Resp BP 37.3 ?C (99.1 ?F) 87 20 (!) 144/101 SpO2 Temp Source Heart Rate Source Patient Position 97 % Oral -- -- BP Location FiO2 (%) -- -- Physical Exam Vitals and nursing note reviewed. Constitutional: General: She is not in acute distress. Appearance: She is well-developed. HENT: Head: Normocephalic and atraumatic. Eyes: Conjunctiva/sclera: Conjunctivae normal. Cardiovascular: Rate and Rhythm: Normal rate and regular rhythm. Heart sounds: No murmur heard. Pulmonary: Effort: Pulmonary effort is normal. No respiratory distress. Breath sounds: Normal breath sounds. Abdominal: Palpations: Abdomen is soft. Tenderness: There is abdominal tenderness in the right upper quadrant. Musculoskeletal: General: No swelling. Comments: Erythema and induration to the anterior right caldwell, with overlying gauze dated from yesterday. Skin: General: Skin is warm and dry. Neurological: Mental Status: She is alert. Psychiatric: Mood and Affect: Mood normal. DIAGNOSTIC RESULTS Procedures/EKG: EKG was reviewed by myself. Physician EKG interpretation can be found in [facility] Interpretation per the Radiologist below, if available at the time of this note: CTA chest abdomen pelvis angiogram w and/or wo contrast Final Result No acute abdominopelvic process identified. No acute vascular pathology observed. P (more content not included)... Normal [facility] HIGH SENSITIVITY TROPONIN, S ERIAL BASELINEon 07-03-2024 TROPONIN HS SERIAL BASELINE 4 ng/L Normal <=14 [facility] Comment on above: Result Comment: In i ndividuals presenting with symptoms > 2h, a baseline troponin <= 5 ng/L suggests acute cardiac injury is unlikely and further serial testing is generally not indicated. Performed By: #### L [id number], LAB15 ####It Application Development Manager: LAURA BAUTISTA ([phone])[facility] (SWRLAB)[address] [place] [address] HIGH SENSITIVITY TROPONIN, S ERIAL, SECOND TESTon 07-03-2024 2H TROPONIN HS (SERIAL 2ND TROPONIN) 6 ng/L Normal <=14 [facility] Comment on above: Result Comment: Risi ng or falling troponin delta below 2 ng/L as compared to baseline value suggests that acute cardiac injury is unlikely. Performed By: #### L [id number] ####It Application Development Manager: LAURA BAUTISTA ([id number])[facility] R[facility]TM[facility] (SWRLAB)[address] [place] [address] HIGH SENSITIVITY TROPONIN, S ERIAL, THIRD TESTon 07-03-2024 4H TROPONIN HS (SERIAL 3RD TROPONIN) 5 ng/L Normal <=14 [facility] Comment on above: Result Comment: Risi ng or falling troponin delta below 2 ng/L as compared to 2h troponin value suggests that acute cardiac injury is unlikely. Performed By: #### L [id number] ####It Application Development Manager: LAURA BAUTISTA ([phone])[facility] [employer] (SWRLAB)[address] [place] [address] Trough vancomycin levelOrder ed By: Lex Roca on 06-23-2024 Vancomycin trough [Mass/Vol] 9.5 ug/mL 5.0-15.0 [facility] Comment on above: Recommended goal tro ugh ranges are generally 10-15 mcg/ml for less severe/complicated infections such as cellulitis or UTI and 15-20 mcg/ml for more severe/complicated infections such as bacteremia/sepsis, osteomyelitis, pneumonia or meningitis. Goal trough ranges should take into account indication, patient-specific factors and organism BRO.VANCOMYCIN STANDARED DRUG THERAPY TROUGH LEVEL: 5.0 - 15.0 mg/L VANCOMYCIN HIGH INTENSITY THERAPY TROUGH LEVEL: 15.0 - 20.0 mg/L High Intensity therapy recommended for serious lifethreatening infections include:- Jhjdmkaugd-Pjdaeqhapsuh-Snmfetgdv (Ventilator/Healtcare Associated)-Sepsis PLEASE CONTACT PHARMACY SERVICES (#0020) FOR INTERPRETATIONOF RESULTS. Hemoglobin A1c percentageOrd ered By: Lex Roca on 05-03-2024 HbA1c (Bld) [Mass fraction] 7.6 % High 3.8-5.6 [facility] Comment on above: Normal < 5.7 % Predi abetic 5.7 - 6.4 % Diabetic >or= 6.5 % Please note range changes. Blood urea nitrogen (BUN)/cr eatinine ratioOrdered By: Lex Roca on 04-26-2024 Urea nitrogen/Creatinine [Mass ratio] 30.4 mg/mg High 10-20 [facility] Carbon dioxide measurementOr dered By: Lex Roca on 04-26-2024 CO2 [Moles/Vol] 23.0 mmol/L 21.0-32.0 [facility] Chloride measurementOrdered By: Lex Roca on 04-26-2024 Chloride [Moles/Vol] 111 mmol/L High 98-107 [facility] Erythrocyte distribution wid th ratioOrdered By: Lex Roca on 04-26-2024 Erythrocyte distribution width (RBC) [Ratio] 12.7 % 11.6-14.6 [facility] Erythrocyte distribution wid th standard deviationOrdered By: Lex Roca on 04-26-2024 Erythrocyte distribution width (RBC) [Ratio] 43.2 fl 35.1-43.9 [facility] Glomerular filtration rate ( GFR) estimationOrdered By: Lex Roca on 04-26-2024 GFR/1.73 sq M.predicted among non-blacks MDRD (S/P/Bld) [Vol rate/Area] 25 mL/min/{1.73_m2} Low >60 [facility] Comment on above: Non- GFR Calc Glucose measurementOrdered B y: Lex Roca on 04-26-2024 Glucose [Mass/Vol] 167 mg/dL High 74-106 [facility] Comment on above: Fasting Glucose resu lt greater than or equal to 126 mg/dL suggests DIABETES MELLITUS per A.D.A. criteria. Hematocrit Auto (Bld) [Volum e fraction]Ordered By: Lex Roca on 04-26-2024 Hematocrit (Bld) [Volume fraction] 37.6 % 37-47 [facility] Hemoglobin measurementOrdere d By: Lex Roca on 04-26-2024 Hemoglobin (Bld) [Mass/Vol] 11.9 g/dL Low 12.0-15.0 [facility] MCV (mean corpuscular volume ) determinationOrdered By: Lex Roca on 04-26-2024 MCV (RBC) [Entitic vol] 93.8 fL 81-99 [facility] Mean corpuscular hemoglobin (MCH) determinationOrdered By: Lex Roca on 04-26-2024 MCH (RBC) [Entitic mass] 29.7 pg 27.0-32.0 [facility] Mean corpuscular hemoglobin concentration (MCHC) determinationOrdered By: Lex Roca on 04-26-2024 MCHC (RBC) [Mass/Vol] 31.6 g/dL Low 32-36 [facility] Mean platelet volume determi nationOrdered By: Lex Roca on 04-26-2024 Platelet mean volume (Bld) [Entitic vol] 10.1 fL 6.2-12.0 [facility] Platelet countOrdered By: Sony Roca on 04-26-2024 Platelets (Bld) [#/Vol] 337 10*3/uL 150-450 [facility] Potassium measurementOrdered By: Lex Roca on 04-26-2024 Potassium [Moles/Vol] 4.6 mmol/L 3.5-5.1 [facility] RBC Auto (Bld) [#/Vol]Ordere d By: Lex Roca on 04-26-2024 RBC (Bld) [#/Vol] 4.01 10*6/uL Low 4.2-5.4 [facility] Serum anion gap measurementO rdered By: Lex Roca on 04-26-2024 Anion gap [Moles/Vol] 6 mmol/L 5-15 [facility] Serum or plasma calcium aba urement (mass/volume)Ordered By: Lex Roca on 04-26-2024 Calcium [Mass/Vol] 8.7 mg/dL 8.5-10.1 [facility] Serum or plasma creatinine m easurement (mass/volume)Ordered By: Lex Roca on 04-26-2024 Creatinine [Mass/Vol] 2.14 mg/dL High 0.55-1.02 [facility] Comment on above: The validity of the calculated GFR & GFRAA in patients over 70 years has not been determined. Clinical correlation is essential. Serum or plasma urea nitroge n measurement (mass/volume)Ordered By: Lex Roca on 04-26-2024 Urea nitrogen [Mass/Vol] 65 mg/dL High 7-18 [facility] Sodium levelOrdered By: Iban Roca on 04-26-2024 Sodium [Moles/Vol] 140 mmol/L 136-145 [facility] White blood cell (WBC) count Ordered By: Lex Roca on 04-26-2024 WBC (Bld) [#/Vol] 7.5 10*3/uL 4.4-11.0 [facility] Blood urea nitrogen (BUN)/cr eatinine ratioOrdered By: Lex Roca on 04-24-2024 Urea nitrogen/Creatinine [Mass ratio] 27.1 mg/mg High 10-20 [facility] Carbon dioxide measurementOr dered By: Lex Roca on 04-24-2024 CO2 [Moles/Vol] 21.0 mmol/L 21.0-32.0 [facility] Chloride measurementOrdered By: Lex Roac on 04-24-2024 Chloride [Moles/Vol] 109 mmol/L High 98-107 [facility] Glomerular filtration rate ( GFR) estimationOrdered By: Lex Roca on 04-24-2024 GFR/1.73 sq M.predicted among non-blacks MDRD (S/P/Bld) [Vol rate/Area] 22 mL/min/{1.73_m2} Low >60 [facility] Comment on above: Non- GFR Calc Glucose measurementOrdered B y: Lex Roca on 04-24-2024 Glucose [Mass/Vol] 304 mg/dL High 74-106 [facility] Comment on above: Glucose result great er than or equal to 200 mg/dLsuggests DIABETES MELLITUS per A.D.A. criteria. Potassium measurementOrdered By: Lex Roca on 04-24-2024 Potassium [Moles/Vol] 5.1 mmol/L 3.5-5.1 [facility] Serum anion gap measurementO rdered By: Lex oRca on 04-24-2024 Anion gap [Moles/Vol] 7 mmol/L 5-15 [facility] Serum or plasma calcium aba urement (mass/volume)Ordered By: Lex Roca on 04-24-2024 Calcium [Mass/Vol] 8.4 mg/dL Low 8.5-10.1 [facility] Serum or plasma creatinine m easurement (mass/volume)Ordered By: Lex Roca on 04-24-2024 Creatinine [Mass/Vol] 2.40 mg/dL High 0.55-1.02 [facility] Comment on above: The validity of the calculated GFR & GFRAA in patients over 70 years has not been determined. Clinical correlation is essential. Serum or plasma urea nitroge n measurement (mass/volume)Ordered By: Lex Roca on 04-24-2024 Urea nitrogen [Mass/Vol] 65 mg/dL High 7-18 [facility] Sodium levelOrdered By: Iban Roca on 04-24-2024 Sodium [Moles/Vol] 137 mmol/L 136-145 [facility] Blood urea nitrogen (BUN)/cr eatinine ratioOrdered By: Lex Roca on 04-19-2024 Urea nitrogen/Creatinine [Mass ratio] 24.9 mg/mg High 10-20 [facility] Carbon dioxide measurementOr dered By: Lex Roca on 04-19-2024 CO2 [Moles/Vol] 22.0 mmol/L 21.0-32.0 [facility] Chloride measurementOrdered By: Lex Roca on 04-19-2024 Chloride [Moles/Vol] 110 mmol/L High 98-107 [facility] Erythrocyte distribution wid th ratioOrdered By: Lex Roca on 04-19-2024 Erythrocyte distribution width (RBC) [Ratio] 12.5 % 11.6-14.6 [facility] Erythrocyte distribution wid th standard deviationOrdered By: Lex Roca on 04-19-2024 Erythrocyte distribution width (RBC) [Ratio] 42.7 fl 35.1-43.9 [facility] Glomerular filtration rate ( GFR) estimationOrdered By: Lex Roca on 04-19-2024 GFR/1.73 sq M.predicted among non-blacks MDRD (S/P/Bld) [Vol rate/Area] 24 mL/min/{1.73_m2} Low >60 [facility] Comment on above: Non- GFR Calc Glucose measurementOrdered B y: Lex Roca on 04-19-2024 Glucose [Mass/Vol] 201 mg/dL High 74-106 [facility] Comment on above: Glucose result great er than or equal to 200 mg/dLsuggests DIABETES MELLITUS per A.D.A. criteria. Hematocrit Auto (Bld) [Volum e fraction]Ordered By: Lex Roca on 04-19-2024 Hematocrit (Bld) [Volume fraction] 37.1 % 37-47 [facility] Hemoglobin A1c percentageOrd ered By: Lex Roca on 04-19-2024 HbA1c (Bld) [Mass fraction] 7.2 % High 3.8-5.6 [facility] Comment on above: Normal < 5.7 % Predi abetic 5.7 - 6.4 % Diabetic >or= 6.5 % Please note range changes. Hemoglobin measurementOrdere d By: Lex Roca on 04-19-2024 Hemoglobin (Bld) [Mass/Vol] 11.4 g/dL Low 12.0-15.0 [facility] High density lipoprotein (HD L) measurementOrdered By: Lex Roca on 04-19-2024 Cholesterol in HDL [Mass/Vol] 42 mg/dL >40 [facility] Comment on above: The drugs N-Acetylcy steine and Metamizole may falsely depress this assay. Reference Range HDL <40 mg/dL Low HDL Cholesterol HDL >or= 60 mg/dL High HDL Cholesterol Low density lipoprotein (LDL ) cholesterol measurementOrdered By: Lex Roca on 04-19-2024 Cholesterol in LDL [Mass/Vol] 53 mg/dL 0-130 [facility] MCV (mean corpuscular volume ) determinationOrdered By: Lex Roca on 04-19-2024 MCV (RBC) [Entitic vol] 92.5 fL 81-99 [facility] Mean corpuscular hemoglobin (MCH) determinationOrdered By: Lex Roca on 04-19-2024 MCH (RBC) [Entitic mass] 28.4 pg 27.0-32.0 [facility] Mean corpuscular hemoglobin concentration (MCHC) determinationOrdered By: Lex Roca on 04-19-2024 MCHC (RBC) [Mass/Vol] 30.7 g/dL Low 32-36 [facility] Mean platelet volume determi nationOrdered By: Lex Roca on 04-19-2024 Platelet mean volume (Bld) [Entitic vol] 9.9 fL 6.2-12.0 [facility] Platelet countOrdered By: Sony Roca on 04-19-2024 Platelets (Bld) [#/Vol] 318 10*3/uL 150-450 [facility] Potassium measurementOrdered By: Lex Roca on 04-19-2024 Potassium [Moles/Vol] 5.0 mmol/L 3.5-5.1 [facility] RBC Auto (Bld) [#/Vol]Ordere d By: Lex Roca on 04-19-2024 RBC (Bld) [#/Vol] 4.01 10*6/uL Low 4.2-5.4 [facility] Serum anion gap measurementO rdered By: Lex Roca on 04-19-2024 Anion gap [Moles/Vol] 9 mmol/L 5-15 [facility] Serum or plasma calcium aba urement (mass/volume)Ordered By: Lex Roca on 04-19-2024 Calcium [Mass/Vol] 9.1 mg/dL 8.5-10.1 [facility] Serum or plasma cholesterol measurement (mass/volume)Ordered By: Lex Roca on 04-19-2024 Cholesterol [Mass/Vol] 120 mg/dL <200 [facility] Comment on above: <200 mg/dL Desirable 200-240 mg/dL Borderline >240 mg/dL High Risk Serum or plasma creatinine m easurement (mass/volume)Ordered By: Lex Roca on 04-19-2024 Creatinine [Mass/Vol] 2.17 mg/dL High 0.55-1.02 [facility] Comment on above: The validity of the calculated GFR & GFRAA in patients over 70 years has not been determined. Clinical correlation is essential. Serum or plasma thyroid stim ulating hormone (TSH) measurement (units/volume)Ordered By: Lex Roca on 04-19-2024 TSH Qn 2.570 uIU/mL 0.358-3.740 [facility] Serum or plasma urea nitroge n measurement (mass/volume)Ordered By: Lex Roca on 04-19-2024 Urea nitrogen [Mass/Vol] 54 mg/dL High 7-18 [facility] Sodium levelOrdered By: Iban Roca on 04-19-2024 Sodium [Moles/Vol] 141 mmol/L 136-145 [facility] Triglycerides measurementOrd ered By: Lex Roca on 04-19-2024 Triglyceride [Mass/Vol] 124 mg/dL <199 [facility] Comment on above: The drugs N-Acetylcy steine and Metamizole may falsely depress this assay.Serum Triglycerides Reference Interval Normal <150 mg/dL Borderline high 150 - 199 mg/dL High 200 - 499 mg/dL Very High > or = 500 mg/dL Very low density lipoprotein (VLDL) cholesterol measurementOrdered By: Lex Roca on 04-19-2024 Very low density lipoprotein (VLDL) cholesterol measurement 25 mg/dL 5-40 [facility] White blood cell (WBC) count Ordered By: Lex Roca on 04-19-2024 WBC (Bld) [#/Vol] 8.0 10*3/uL 4.4-11.0 [facility] Blood urea nitrogen (BUN)/cr eatinine ratioOrdered By: Lex Roca on 04-10-2024 Urea nitrogen/Creatinine [Mass ratio] 25.2 mg/mg High 10-20 [facility] Carbon dioxide measurementOr dered By: Lex Roca on 04-10-2024 CO2 [Moles/Vol] 22.0 mmol/L 21.0-32.0 [facility] Chloride measurementOrdered By: Lex Roca on 04-10-2024 Chloride [Moles/Vol] 111 mmol/L High 98-107 [facility] Glomerular filtration rate ( GFR) estimationOrdered By: Lex Roca on 04-10-2024 GFR/1.73 sq M.predicted among non-blacks MDRD (S/P/Bld) [Vol rate/Area] 25 mL/min/{1.73_m2} Low >60 [facility] Comment on above: Non- GFR Calc Glucose measurementOrdered B y: Lex Roca on 04-10-2024 Glucose [Mass/Vol] 110 mg/dL High 74-106 [facility] Comment on above: Fasting Glucose resu lt from 100 to 125 mg/dL suggests IMPAIRED HOMEOSTASIS per A.D.A. criteria. Potassium measurementOrdered By: Lex Roca on 04-10-2024 Potassium [Moles/Vol] 4.5 mmol/L 3.5-5.1 [facility] Serum anion gap measurementO rdered By: Lex Roca on 04-10-2024 Anion gap [Moles/Vol] 6 mmol/L 5-15 [facility] Serum or plasma calcium aba urement (mass/volume)Ordered By: Lex Roca on 04-10-2024 Calcium [Mass/Vol] 8.7 mg/dL 8.5-10.1 [facility] Serum or plasma creatinine m easurement (mass/volume)Ordered By: Lex Roca on 04-10-2024 Creatinine [Mass/Vol] 2.14 mg/dL High 0.55-1.02 [facility] Comment on above: The validity of the calculated GFR & GFRAA in patients over 70 years has not been determined. Clinical correlation is essential. Serum or plasma urea nitroge n measurement (mass/volume)Ordered By: Lex Roca on 04-10-2024 Urea nitrogen [Mass/Vol] 54 mg/dL High 7-18 [facility] Sodium levelOrdered By: Iban Roca on 04-10-2024 Sodium [Moles/Vol] 139 mmol/L 136-145 [facility] DBT Breast - bilateral scree alidan 09-08-2023 No mammographic evidence of malignancy. ASSESSMENT: Category 1 Negative RECOMMENDATION: Routine screening mammogram in 1 year. Bilateral CANCER RISK ASSESSMENT: This risk assessment is based on patient provided information collected in a risk survey taken at the time of this examination. LIFETIME BREAST CANCER RISK: Stephanie: 9.88% - If greater than or equal to 20%, consider annual mammogram and annual screening Breast MRI or follow up in high risk clinic. Is the patient at elevated risk based on the HBOC criteria? No (Hereditary Breast and Ovarian Cancer) - If Yes, consider genetic counseling and testing with high risk follow up. Is the patient at elevated risk based on the Castillo Syndrome criteria? No - If Yes, consider genetic counseling and testing with high risk follow up. Report Dictated on Electronically Signed By: Alanis Redd MD Electronically Signed Date/Time: 09/08/2023 3:04 PM EDT [facility] Patient Name: CINTHYA CASTILLO : 1960 Exam Date/Time: 09/08/2023 14:09 Procedure: BI MAMMOGRAM SCREENING TOMOSYNTHESIS BILATERAL Ordering Provider: ROCA THOMAS Reason For Exam: z12.31 Image views: 2D Bilateral CC and MLO views were acquired. 3D Bilateral CC and MLO views were acquired. Images were reviewed with CAD. Markings on images: BB's = Nipples; skin lesions Open kashia = Palpable Line = Scar COMPARISON: 05/20/2021, 05/21/2022 TISSUE DENSITY: BIRADS B - There are scattered fibroglandular densities. FINDINGS: No suspicious masses, architectural distortions or suspiciously clustered microcalcifications are identified. There is no evidence of skin thickening or nipple retraction. There are no significant changes when compared with prior studies. [facility] Alanis Redd MD - 09/08/2023 Patient Name: CINTHYA CASTILLO : 1960 Exam Date/Time: 09/08/2023 14:09 Procedure: BI MAMMOGRAM SCREENING TOMOSYNTHESIS BILATERAL Ordering Provider: ROCA THOMAS Reason For Exam: z12.31 Image views: 2D Bilateral CC and MLO views were acquired. 3D Bilateral CC and MLO views were acquired. Images were reviewed with CAD. Markings on images: BB's = Nipples; skin lesions Open kashia = Palpable Line = Scar COMPARISON: 05/20/2021, 05/21/2022 TISSUE DENSITY: BIRADS B - There are scattered fibroglandular densities. FINDINGS: No suspicious masses, architectural distortions or suspiciously clustered microcalcifications are identified. There is no evidence of skin thickening or nipple retraction. There are no significant changes when compared with prior studies. IMPRESSION: No mammographic evidence of malignancy. ASSESSMENT: Category 1 Negative RECOMMENDATION: Routine screening mammogram in 1 year. Bilateral CANCER RISK ASSESSMENT: This risk assessment is based on patient provided information collected in a risk survey taken at the time of this examination. LIFETIME BREAST CANCER RISK: Stephanie: 9.88% - If greater than or equal to 20%, consider annual mammogram and annual screening Breast MRI or follow up in high risk clinic. Is the patient at elevated risk based on the HBOC criteria? No (Hereditary Breast and Ovarian Cancer) - If Yes, consider genetic counseling and testing with high risk follow up. Is the patient at elevated risk based on the Castillo Syndrome criteria? No - If Yes, consider genetic counseling and testing with high risk follow up. Report Dictated on Electronically Signed By: Alanis Redd MD Electronically Signed Date/Time: 09/08/2023 3:04 PM EDT [facility] [employer] Radiology Study observation (narrative) [facility] alth DBT Breast - bilateral scree ningOrdered By: Alanis Redd on 09-08-2023 [facility] [employer] Work Phone: Basic metabolic 1998 panelon 09-07-2023 Anion gap [Moles/Vol] 13 mmol/L 3 - 13 mmol/L [facility] [employer] Calcium [Mass/Vol] 9.2 mg/dL 8.4 - 10. 4 mg/dL [facility] [employer] Chloride [Moles/Vol] 106 mmol/L 98 - 10 7 mmol/L [facility] [employer] CO2 [Moles/Vol] 21 mmol/L Low 22 - 30 mmol/L [facility] [employer] Creatinine [Mass/Vol] 2.00 mg/dL High 0.52 - 1.04 mg/dL [facility] [employer] GFR/1.73 sq M.predicted MDRD (S/P/Bld) [Vol rate/Area] 28.0 mL/min/{1.73_m2} Low - PINF [facility] Comment on above: Calculation based on the Chronic Kidney Disease Epidemiology Collaboration (CKD-EPI) equation refit without adjustment for race Glucose [Mass/Vol] 122 mg/dL High 70 - 100 mg/dL [facility] Interpretation and review of laboratory results Abnormal [facility] Potassium [Moles/Vol] 4.1 mmol/L 3.5 - 5.1 mmol/L [facility] Sodium [Moles/Vol] 140 mmol/L 135 - 145 mmol/L [facility] Urea nitrogen [Mass/Vol] 42 mg/dL High 7 - 17 mg/dL [facility] CBC W Auto Differential pane l (Bld)on 09-07-2023 Basophils (Bld) [#/Vol] 0.1 10*3/uL 0.0 - 0.2 10*3/uL [facility] Basophils/100 WBC (Bld) 0.5 % 0.0 - 2.0 % [facility] Eosinophils (Bld) [#/Vol] 0.1 10*3/uL 0.0 - 0.5 10*3/uL [facility] Eosinophils/100 WBC (Bld) 1.0 % 0.0 - 6.0 % [facility] Erythrocyte distribution width (RBC) [Ratio] 12.7 % 11.5 - 15.0 % [facility] Hematocrit (Bld) [Volume fraction] 38.4 % 35.0 - 47.0 % [facility] Hemoglobin (Bld) [Mass/Vol] 12.7 g/dL 11.7 - 16.0 g/dL [facility] Immature granulocytes (Bld) [#/Vol] 0.1 10*3/uL High NINF - 0.1 10*3/uL [facility] Immature granulocytes/100 WBC (Bld) 0.5 % 0.0 - 2.0 % [facility] Interpretation and review of laboratory results Abnormal [facility] Lymphocytes (Bld) [#/Vol] 2.2 10*3/uL 1.0 - 4.3 10*3/uL [facility] Lymphocytes/100 WBC (Bld) 23.3 % 15.0 - 45.0 % [facility] MCH (RBC) [Entitic mass] 29.7 pg 26.0 - 34.0 pg [facility] MCHC (RBC) [Mass/Vol] 33.1 % 30.5 - 36.0 % [facility] MCV (RBC) [Entitic vol] 89.7 fL 77.0 - 99.0 fL [facility] [employer] Monocytes (Bld) [#/Vol] 1.1 10*3/uL High 0.0 - 0.9 10*3/uL [facility] [employer] Monocytes/100 WBC (Bld) 11.4 % 5.0 - 13.0 % [facility] [employer] Neutrophils (Bld) [#/Vol] 5.9 10*3/uL 1.8 - 7.5 10*3/uL [facility] [employer] Neutrophils/100 WBC (Bld) 63.3 % 38.0 - 82.0 % [facility] [employer] Nucleated RBC/100 WBC (Bld) [Ratio] 0.0 % [facility] [employer] Platelet mean volume (Bld) [Entitic vol] 9.5 fL 9.0 - 12.7 fL [facility] [employer] Platelets (Bld) [#/Vol] 344 10*3/uL 140 - 440 10*3/uL [facility] [employer] RBC (Bld) [#/Vol] 4.28 10*6/uL 3.80 - 5.2 0 10*6/uL [facility] [employer] WBC (Bld) [#/Vol] 9.3 10*3/uL 3.6 - 10.7 10*3/uL [facility] Laboratory - Chemistry and C hemistry - challengeon 09-07-2023 Troponin I.cardiac [Mass/Vol] 0.015 ng/[facility] ng/mL [facility] Troponin I.cardiac [Mass/Vol] 0.013 ng/[facility] 0.[facility] ng/mL [facility] [employer] Natriuretic peptide B [Mass/ Vol]on 09-07-2023 Interpretation and review of laboratory results Abnormal [facility] Natriuretic peptide B (Bld) [Mass/Vol] 1110 pg/mL High <20 - 300 [facility] [employer] No Panel Informationon 09-06 [facility] [employer] Sinus rhythm 79 BPM NO STEMI, qtc nml SImilar to prior Electronically Signed On 09-07-2023 18:46:28 EDT by Luis Zabala CV Luis Mi, - 09/07/2023 IMPRESSION: Sinus rhythm 79 BPM NO STEMI, qtc nml SImilar to prior Electronically Signed On 09-07-2023 18:46:28 EDT by Luis Zabala [facility] No Panel InformationOrdered By: Luis Zabala on 09-07-2023 P [place] 57 degrees [facility] Work Phone: DC Interval 147 ms [facility] Work Phone: QRS [place] -5 degrees [facility] Work Phone: QRSD Interval 79 ms [facility] Work Phone: QT Interval 398 ms [facility] Work Phone: QTC Interval 458 ms [facility] Work Phone: T Wave [place] 63 degrees Present Phone: Present Phone: Troponin I.cardiac [Mass/Vol ]on 09-07-2023 Interpretation and review of laboratory results Normal [facility] Patients with high levels of Biotin oral intake (ie >5 mg/day) may have falsely decreased Troponin levels. [facility] Interpretation and review of laboratory results Normal [facility] Patients with high levels of Biotin oral intake (ie >5 mg/day) may have falsely decreased Troponin levels. [facility] Vital signsOrdered By: Luis Zabala on 09-07-2023 Heart rate 79 /min bpm [facility] Work Phone: XR Chest Single viewon 09-06 1. No acute findings. Report Dictated on Electronically Signed By: Pancho Wyatt MD Electronically Signed Date/Time: 09/07/2023 6:19 PM EDT [facility] Name[facility] 1960 [id number] Exam Date/Time: 09/07/2023 18:21 Procedure: XR CHEST 1 VIEW Ordering Provider: CARNEY ADAM Reason For Exam: DYSPNEA CHEST PORTABLE CLINICAL INDICATION: DYSPNEA TECHNIQUE: Portable chest x-ray(s). COMPARISON: December,. FINDINGS: Patient's body habitus limits evaluation somewhat. Cardiac and mediastinal silhouette within normal limits. Lungs are grossly clear. No significant vascular congestion. No apparent pneumothorax. Degenerative change again noted in the thoracic spine. [facility] Pancho Wyatt MD - 09/07/2023 Patient Name: [facility]INTH[facility]STILLO : 1960 [id number] Exam Date/Time: 09/07/2023 18:21 Procedure: XR CHEST 1 VIEW Ordering Provider: CARNEY ADAM Reason For Exam: DYSPNEA CHEST PORTABLE CLINICAL INDICATION: DYSPNEA TECHNIQUE: Portable chest x-ray(s). COMPARISON: December,. FINDINGS: Patient's body habitus limits evaluation somewhat. Cardiac and mediastinal silhouette within normal limits. Lungs are grossly clear. No significant vascular congestion. No apparent pneumothorax. Degenerative change again noted in the thoracic spine. IMPRESSION: 1. No acute findings. Report Dictated on Electronically Signed By: Pancho Wyatt MD Electronically Signed Date/Time: 09/07/2023 6:19 PM EDT [facility] Radiology Study observation (narrative) [facility] XR Chest Single viewOrdered By: Pancho Wyatt on 09-07-2023 [facility] Work Phone: Basophil percentageOrdered B y: Lex Roca on 02-13-2023 Chloride [Moles/Vol] 112 mmol/L 98-107 [facility] Glucose [Mass/Vol] 138 mg/dL 74-106 [facility] Comment on above: Fasting Glucose resu lt greater than or equal to 126 mg/dL suggests DIABETES MELLITUS per A.D.A. criteria. Potassium [Moles/Vol] 4.7 mmol/L 3.5-5.1 [facility] Sodium [Moles/Vol] 142 mmol/L 136-145 [facility] WBC (Bld) [#/Vol] 11.3 10*3/uL 4.4-11.0 [facility] Bilirubin Test strip Ql (U)O rdered By: Lex Roca on 02-13-2023 Bilirubin Ql (U) Negative Negative [facility] Blood erythrocytes count (nu mber/volume)Ordered By: Lex Roca on 02-13-2023 RBC (Bld) [#/Vol] 4.02 10*6/uL 4.2-5.4 [facility] Blood hemoglobin measurement (mass/volume)Ordered By: Lex Roca on 02-13-2023 Hemoglobin (Bld) [Mass/Vol] 11.9 g/dL 12.0-15.0 [facility] Blood platelet mean volumeOr dered By: Lex Rcoa on 02-13-2023 Platelet mean volume (Bld) [Entitic vol] 9.8 fL 6.2-12.0 [facility] Culture, urineOrdered By: Sony Roca on 02-13-2023 Bacteria identified Cx Nom (U) Proteus mirabilis [facility] Determination of erythrocyte mean corpuscular volume (MCV)Ordered By: Lex Roca on 02-13-2023 MCV (RBC) [Entitic vol] 93.5 fL 81-99 [facility] Hematocrit Auto (Bld) [Volum e fraction]Ordered By: Lex Roca on 02-13-2023 Hematocrit (Bld) [Volume fraction] 37.6 % 37-47 [facility] Ketones Test strip Ql (U)Ord ered By: Lex Roca on 02-13-2023 Ketones Ql (U) 5 mg/dl Negative [facility] Laboratory - Chemistry and C hemistry - challengeOrdered By: Lex Roca on 02-13-2023 CO2 [Moles/Vol] 24.0 mmol/L 21.0-32.0 [facility] Urea nitrogen/Creatinine [Mass ratio] 28.3 mg/mg 10-20 [facility] Laboratory - Hematology and Cell countsOrdered By: Lex Roca on 02-13-2023 Erythrocyte distribution width (RBC) [Entitic vol] 43.7 fL 35.1-43.9 [facility] Erythrocyte distribution width (RBC) [Ratio] 12.8 % 11.6-14.6 [facility] MCH (RBC) [Entitic mass] 29.6 pg 27.0-32.0 [facility] MCHC Auto (RBC) [Mass/Vol]Or dered By: Lex Roca on 02-13-2023 MCHC (RBC) [Mass/Vol] 31.6 g/dL 32-36 [facility] Nitrite Test strip Ql (U)Ord ered By: Lex Roca on 02-13-2023 Nitrite Ql (U) Negative Negative [facility] No Panel InformationOrdered By: Lex Roca on 02-13-2023 Estimated GFR (MDRD) Amer 40 mL/min >60 [facility] Comment on above: GFR Calc Estimated GFR (MDRD) Non-Af Amer 33 mL/min >60 [facility] Comment on above: Non- GFR Calc Platelets bldOrdered By: Tony Roca on 02-13-2023 Platelets (Bld) [#/Vol] 322 10*3/uL 150-450 [facility] Protein Test strip Ql (U)Ord ered By: Lex Roca on 02-13-2023 Protein Ql (U) 500 mg/dl Negative [facility] Serum or plasma calcium aba urement (mass/volume)Ordered By: Lex Roca on 02-13-2023 Calcium [Mass/Vol] 8.4 mg/dL 8.5-10.1 [facility] Serum or plasma creatinine m easurement (mass/volume)Ordered By: Lex Roca on 02-13-2023 Creatinine [Mass/Vol] 1.66 mg/dL 0.55-1.02 [facility] Comment on above: The validity of the calculated GFR & GFRAA in patients over 70 years has not been determined. Clinical correlation is essential. Serum or plasma urea nitroge n measurement (mass/volume)Ordered By: Lex Roca on 02-13-2023 Urea nitrogen [Mass/Vol] 47 mg/dL 7-18 [facility] Thin prep Papanicolaou smear with manual screeningOrdered By: Lex Roca on 02-13-2023 Thin prep Papanicolaou smear with manual screening 6 5-15 [facility] Urine blood detectionOrdered By: Lex Roca on 02-13-2023 RBC Ql (U) 250 /ul Negative [facility] Urine clarityOrdered By: Tony Roca on 02-13-2023 Clarity (U) Cloudy Clear [facility] Urine color determinationOrd ered By: Lex Roca on 02-13-2023 Color (U) Red Yellow [facility] Urine glucose detectionOrder ed By: Lex Roca on 02-13-2023 Glucose Ql (U) 1000 mg/dl Normal [facility] Urine leukocyte esterase det ection by dipstickOrdered By: Lex Roca on 02-13-2023 Leukocyte esterase Test strip Ql (U) 100 /ul Negative [facility] Urine pHOrdered By: Lex cooper on 02-13-2023 pH (U) 8.0 [pH] 5.0 - 8.0 [facility] Urine specific gravity measu rementOrdered By: Lex Roca on 02-13-2023 Specific gravity (U) [Rel density] 1.010 1.002-1.030 [facility] Urobilinogen Auto test strip Ql (U)Ordered By: Lex Roca on 02-13-2023 Urobilinogen Ql (U) Normal mg/dl Normal [facility] Whole blood hemoglobin A1c/t otal hemoglobin ratio (mass fraction)Ordered By: Lex Roca on 02-05-2023 HbA1c (Bld) [Mass fraction] 6.6 % 3.8-5.6 [facility] Comment on above: Normal < 5.7 % Predi abetic 5.7 - 6.4 % Diabetic >or= 6.5 % Please note range changes. Laboratory - Chemistry and C hemistry - challengeon 12-11-2022 Glucose [Mass/Vol] 155 mg/dL High 70 - 100 mg/dL [facility] No Panel Informationon 12-11 Interpretation and review of laboratory results Abnormal [facility] Performed by: [facility], [address] [place] [address] CLIA ID: [id number] [facility] Basophil percentageOrdered B y: Lex Roca on 11-25-2022 WBC (Bld) [#/Vol] 10.9 10*3/uL 4.4-11.0 [facility] Blood erythrocytes count (nu mber/volume)Ordered By: Lex Roca on 11-25-2022 RBC (Bld) [#/Vol] 3.84 10*6/uL 4.2-5.4 [facility] Blood hemoglobin measurement (mass/volume)Ordered By: Lex Roca on 11-25-2022 Hemoglobin (Bld) [Mass/Vol] 11.5 g/dL 12.0-15.0 [facility] Blood platelet mean volumeOr dered By: Lex Roca on 11-25-2022 Platelet mean volume (Bld) [Entitic vol] 10.2 fL 6.2-12.0 [facility] Determination of erythrocyte mean corpuscular volume (MCV)Ordered By: Lex Roca on 11-25-2022 MCV (RBC) [Entitic vol] 97.4 fL 81-99 [facility] Hematocrit Auto (Bld) [Volum e fraction]Ordered By: Lex Roca on 11-25-2022 Hematocrit (Bld) [Volume fraction] 37.4 % 37-47 [facility] Laboratory - Hematology and Cell countsOrdered By: Lex Roca on 11-25-2022 Erythrocyte distribution width (RBC) [Entitic vol] 44.9 fL 35.1-43.9 [facility] Erythrocyte distribution width (RBC) [Ratio] 12.6 % 11.6-14.6 [facility] MCH (RBC) [Entitic mass] 29.9 pg 27.0-32.0 [facility] MCHC Auto (RBC) [Mass/Vol]Or dered By: Lex Roca on 11-25-2022 MCHC (RBC) [Mass/Vol] 30.7 g/dL 32-36 [facility] Platelets bldOrdered By: Tony Roca on 11-25-2022 Platelets (Bld) [#/Vol] 379 10*3/uL 150-450 [facility] Whole blood hemoglobin A1c/t otal hemoglobin ratio (mass fraction)Ordered By: Lex Roca on 11-05-2022 HbA1c (Bld) [Mass fraction] 5.6 % 3.8-5.6 [facility] Comment on above: Normal < 5.7 % Predi abetic 5.7 - 6.4 % Diabetic >or= 6.5 % Please note range changes. Basophil percentageOrdered B y: Lex Roca on 10-09-2022 Chloride [Moles/Vol] 103 mmol/L 98-[address] [facility] Glucose [Mass/Vol] 61 mg/dL 74-106 [facility] Potassium [Moles/Vol] 4.0 mmol/L 3.5-5.1 [facility] Sodium [Moles/Vol] 133 mmol/L 136-145 [facility] Laboratory - Chemistry and C hemistry - challengeOrdered By: Lex Roca on 10-09-2022 CO2 [Moles/Vol] 23.0 mmol/L 21.0-32.0 [facility] Urea nitrogen/Creatinine [Mass ratio] 21.2 mg/mg 10-20 [facility] No Panel InformationOrdered By: Lex Roca on 10-09-2022 Estimated GFR (MDRD) Amer 35 mL/min >60 [facility] Comment on above: GFR Calc Estimated GFR (MDRD) Non-Af Amer 29 mL/min >60 [facility] Comment on above: Non- GFR Calc Serum or plasma calcium aba urement (mass/volume)Ordered By: Lex Roca on 10-09-2022 Calcium [Mass/Vol] 8.1 mg/dL 8.5-10.1 [facility] Serum or plasma creatinine m easurement (mass/volume)Ordered By: Lex Roca on 10-09-2022 Creatinine [Mass/Vol] 1.89 mg/dL 0.55-1.02 [facility] Comment on above: The validity of the calculated GFR & GFRAA in patients over 70 years has not been determined. Clinical correlation is essential. Serum or plasma urea nitroge n measurement (mass/volume)Ordered By: Lex Roca on 10-09-2022 Urea nitrogen [Mass/Vol] 40 mg/dL 7-18 [facility] Thin prep Papanicolaou smear with manual screeningOrdered By: Lex Roca on 10-09-2022 Thin prep Papanicolaou smear with manual screening 7 5-15 [facility] Bacteria identified Cx Nom ( Wound)Ordered By: Lex Roca on 08-31-2022 Wound Culture Staphylococcus aureus [facility] Wound Culture Streptococcus group G [facility] Bacteria identified Cx Nom ( Wound)Ordered By: Lex Roca on 08-28-2022 Wound Culture Staphylococcus aureus [facility] Wound Culture Streptococcus group G [facility] Gram stain for investigation of transfusion reactionOrdered By: Lex Roca on 08-28-2022 Microscopic observation Gram stain Nom (Unsp spec) [facility] Basophil percentageOrdered B y: Lex Roca on 07-16-2022 Cholesterol [Mass/Vol] 167 mg/dL <200 [facility] Comment on above: <200 mg/dL Desirable 200-240 mg/dL Borderline >240 mg/dL High Risk Triglyceride [Mass/Vol] 159 mg/dL <199 [facility] Comment on above: The drugs N-Acetylcy steine and Metamizole may falsely depress this assay.Serum Triglycerides Reference Interval Normal <150 mg/dL Borderline high 150 - 199 mg/dL High 200 - 499 mg/dL Very High > or = 500 mg/dL WBC (Bld) [#/Vol] 8.8 10*3/uL 4.4-11.0 [facility] Blood erythrocytes count (nu mber/volume)Ordered By: Lex Roca on 07-16-2022 RBC (Bld) [#/Vol] 4.07 10*6/uL 4.2-5.4 [facility] Blood hemoglobin measurement (mass/volume)Ordered By: Lex Roca on 07-16-2022 Hemoglobin (Bld) [Mass/Vol] 12.4 g/dL 12.0-15.0 [facility] Blood platelet mean volumeOr dered By: Lex Roca on 07-16-2022 Platelet mean volume (Bld) [Entitic vol] 10.0 fL 6.2-12.0 [facility] Determination of erythrocyte mean corpuscular volume (MCV)Ordered By: Lex Roca on 07-16-2022 MCV (RBC) [Entitic vol] 94.1 fL 81-99 [facility] Erythrocyte sedimentation ra teOrdered By: Lex Roca on 07-16-2022 ESR (Bld) [Velocity] 43 mm/h 0-30 [facility] Hematocrit Auto (Bld) [Volum e fraction]Ordered By: Lex Roca on 07-16-2022 Hematocrit (Bld) [Volume fraction] 38.3 % 37-47 [facility] Laboratory - Hematology and Cell countsOrdered By: Lex Roca on 07-16-2022 Erythrocyte distribution width (RBC) [Entitic vol] 43.6 fL 35.1-43.9 [facility] Erythrocyte distribution width (RBC) [Ratio] 12.6 % 11.6-14.6 [facility] MCH (RBC) [Entitic mass] 30.5 pg 27.0-32.0 [facility] MCHC Auto (RBC) [Mass/Vol]Or dered By: Lex Roca on 07-16-2022 MCHC (RBC) [Mass/Vol] 32.4 g/dL 32-36 [facility] Platelets bldOrdered By: Tony navas Marah on 07-16-2022 Platelets (Bld) [#/Vol] 268 10*3/uL 150-450 [facility] Serum or plasma C reactive p rotein measurement (mass/volume)Ordered By: Lex Roca on 07-16-2022 CRP [Mass/Vol] 4.50 mg/L 0.0-3.0 [facility] Comment on above: C-Reactive Protein ( CRP) provides useful information for thediagnosis, therapy and monitoring of inflammatory processesand associated diseases. For the evaluation of Relative Riskfor Cardiovascular Disease, a High Sensitivity CRP (HSCRP)should be ordered. Serum or plasma cholesterol in HDL measurement (mass/volume)Ordered By: Lex Roca on 07-16-2022 Cholesterol in HDL [Mass/Vol] 37 mg/dL >40 [facility] Comment on above: The drugs N-Acetylcy steine and Metamizole may falsely depress this assay. Reference Range HDL <40 mg/dL Low HDL Cholesterol HDL >or= 60 mg/dL High HDL Cholesterol Serum or plasma cholesterol in VLDL measurement (mass/volume)Ordered By: Lex Roca on 07-16-2022 Cholesterol in VLDL [Mass/Vol] 32 mg/dL 5-40 [facility] Serum or plasma low density lipoprotein (LDL) cholesterol measurement (mass/volume)Ordered By: Lex Roca on 07-16-2022 Cholesterol in LDL [Mass/Vol] 98 mg/dL 0-130 [facility] Basophil percentageOrdered B y: Lex Roca on 06-04-2022 Bilirubin [Mass/Vol] 0.40 mg/dL 0.20-1.00 [facility] Comment on above: For patients on eltr ombopag therapy, use of Dimension [place] TBIL is not recommended. Chloride [Moles/Vol] 110 mmol/L 98-107 [facility] Cholesterol [Mass/Vol] 135 mg/dL <200 [facility] Comment on above: <200 mg/dL Desirable 200-240 mg/dL Borderline >240 mg/dL High Risk Glucose [Mass/Vol] 107 mg/dL 74-106 [facility] Comment on above: Fasting Glucose resu lt from 100 to 125 mg/dL suggests IMPAIRED HOMEOSTASIS per A.D.A. criteria. Potassium [Moles/Vol] 4.4 mmol/L 3.5-5.1 [facility] Protein [Mass/Vol] 6.4 g/dL 6.4-8.2 [facility] Sodium [Moles/Vol] 142 mmol/L 136-145 [facility] Triglyceride [Mass/Vol] 186 mg/dL <199 [facility] Comment on above: The drugs N-Acetylcy steine and Metamizole may falsely depress this assay.Serum Triglycerides Reference Interval Normal <150 mg/dL Borderline high 150 - 199 mg/dL High 200 - 499 mg/dL Very High > or = 500 mg/dL WBC (Bld) [#/Vol] 12.1 10*3/uL 4.4-11.0 [facility] Blood erythrocytes count (nu mber/volume)Ordered By: Lex Roca on 06-04-2022 RBC (Bld) [#/Vol] 4.12 10*6/uL 4.2-5.4 [facility] Blood hemoglobin measurement (mass/volume)Ordered By: Lex Roca on 06-04-2022 Hemoglobin (Bld) [Mass/Vol] 12.6 g/dL 12.0-15.0 [facility] Blood platelet mean volumeOr dered By: Lex Roca on 06-04-2022 Platelet mean volume (Bld) [Entitic vol] 10.0 fL 6.2-12.0 [facility] Determination of erythrocyte mean corpuscular volume (MCV)Ordered By: Lex Roca on 06-04-2022 MCV (RBC) [Entitic vol] 93.4 fL 81-99 [facility] Direct bilirubinOrdered By: Lex Roca on 06-04-2022 Bilirubin.direct [Mass/Vol] 0.12 mg/dL 0.00-0.30 [facility] Hematocrit Auto (Bld) [Volum e fraction]Ordered By: Lex Roca on 06-04-2022 Hematocrit (Bld) [Volume fraction] 38.5 % 37-47 [facility] Laboratory - Chemistry and C hemistry - challengeOrdered By: Lex Roca on 06-04-2022 ALP [Catalytic activity/Vol] 70 U/L 45-117 [facility] ALT [Catalytic activity/Vol] 28 U/L 13-56 [facility] CO2 [Moles/Vol] 24.0 mmol/L 21.0-32.0 [facility] Globulin (S) [Mass/Vol] 4.0 g/dL 2.2-4.2 [facility] Urea nitrogen/Creatinine [Mass ratio] 25.8 mg/mg 10-20 [facility] Laboratory - Hematology and Cell countsOrdered By: Lex Roca on 06-04-2022 Erythrocyte distribution width (RBC) [Entitic vol] 42.2 fL 35.1-43.9 [facility] Erythrocyte distribution width (RBC) [Ratio] 12.3 % 11.6-14.6 [facility] MCH (RBC) [Entitic mass] 30.6 pg 27.0-32.0 [facility] MCHC Auto (RBC) [Mass/Vol]Or dered By: Lex Roca on 06-04-2022 MCHC (RBC) [Mass/Vol] 32.7 g/dL 32-36 [facility] No Panel InformationOrdered By: Lex Roca on 06-04-2022 Estimated GFR (MDRD) Amer 36 mL/min >60 [facility] Comment on above: GFR Calc Estimated GFR (MDRD) Non-Af Amer 30 mL/min >60 [facility] Comment on above: Non- GFR Calc Platelets bldOrdered By: Tony Roca on 06-04-2022 Platelets (Bld) [#/Vol] 409 10*3/uL 150-450 [facility] Serum or plasma albumin aba urement (mass/volume)Ordered By: Lex Roca on 06-04-2022 Albumin [Mass/Vol] 2.4 g/dL 3.2-5.0 [facility] Serum or plasma calcium aba urement (mass/volume)Ordered By: Lex Roca on 06-04-2022 Calcium [Mass/Vol] 8.5 mg/dL 8.5-10.1 [facility] Serum or plasma cholesterol in HDL measurement (mass/volume)Ordered By: Lex Roca on 06-04-2022 Cholesterol in HDL [Mass/Vol] 35 mg/dL >40 [facility] Comment on above: The drugs N-Acetylcy steine and Metamizole may falsely depress this assay. Reference Range HDL <40 mg/dL Low HDL Cholesterol HDL >or= 60 mg/dL High HDL Cholesterol Serum or plasma cholesterol in VLDL measurement (mass/volume)Ordered By: Lex Roca on 06-04-2022 Cholesterol in VLDL [Mass/Vol] 37 mg/dL 5-40 [facility] Serum or plasma creatinine m easurement (mass/volume)Ordered By: Lex Roca on 06-04-2022 Creatinine [Mass/Vol] 1.82 mg/dL 0.55-1.02 [facility] Comment on above: The validity of the calculated GFR & GFRAA in patients over 70 years has not been determined. Clinical correlation is essential. Serum or plasma low density lipoprotein (LDL) cholesterol measurement (mass/volume)Ordered By: Lex Roca on 06-04-2022 Cholesterol in LDL [Mass/Vol] 63 mg/dL 0-130 [facility] Serum or plasma urea nitroge n measurement (mass/volume)Ordered By: Lex Roca on 06-04-2022 Urea nitrogen [Mass/Vol] 47 mg/dL 7-18 [facility] Thin prep Papanicolaou smear with manual screeningOrdered By: Lex Roca on 06-04-2022 Thin prep Papanicolaou smear with manual screening 18 U/L 15-37 [facility] Thin prep Papanicolaou smear with manual screening 8 5-15 [facility] Whole blood hemoglobin A1c/t otal hemoglobin ratio (mass fraction)Ordered By: Lex Roca on 06-04-2022 HbA1c (Bld) [Mass fraction] 6.4 % 3.8-5.6 [facility] Comment on above: Normal < 5.7 % Predi abetic 5.7 - 6.4 % Diabetic >or= 6.5 % Please note range changes. DBT Breast - bilateral patricia em 05-21-2022 No mammographic evidence of malignancy. ASSESSMENT: Category 1 Negative RECOMMENDATION: Routine screening mammogram in 1 year. Bilateral Report Dictated on Electronically Signed By: Alanis Redd Electronically Signed Date/Time: 05/21/2022 10:54 AM EST [facility] Name[facility]IN[facility]ILL[facility] 1960 [id number] Exam Date/Time: 05/21/2022 10:36 Procedure: BI MAMMOGRAM SCREENING TOMOSYNTHESIS BILATERAL Ordering Provider: ROCA THOMAS Reason For Exam: Breast cancer screening, average or low risk (Female >= 18y) Image views: 2D Bilateral CC and MLO views were acquired. 3D Bilateral CC and MLO views were acquired. Images were reviewed with CAD. Markings on images: BB's = Nipples; skin lesions Open kashia = Palpable Line = Scar COMPARISON: 12/16/2016, 05/20/2021 TISSUE DENSITY: BIRADS B - There are scattered fibroglandular densities. FINDINGS: No suspicious masses, architectural distortions or suspiciously clustered microcalcifications are identified. There is no evidence of skin thickening or nipple retraction. There are no significant changes when compared with prior studies. [facility] Alanis Redd MD - 05/21/2022 Patient Name: CINTHYA CASTILLO : 1960 Exam Date/Time: 05/21/2022 10:36 Procedure: BI MAMMOGRAM SCREENING TOMOSYNTHESIS BILATERAL Ordering Provider: ROCA THOMAS Reason For Exam: Breast cancer screening, average or low risk (Female >= 18y) Image views: 2D Bilateral CC and MLO views were acquired. 3D Bilateral CC and MLO views were acquired. Images were reviewed with CAD. Markings on images: BB's = Nipples; skin lesions Open kashia = Palpable Line = Scar COMPARISON: 12/16/2016, 05/20/2021 TISSUE DENSITY: BIRADS B - There are scattered fibroglandular densities. FINDINGS: No suspicious masses, architectural distortions or suspiciously clustered microcalcifications are identified. There is no evidence of skin thickening or nipple retraction. There are no significant changes when compared with prior studies. IMPRESSION: No mammographic evidence of malignancy. ASSESSMENT: Category 1 Negative RECOMMENDATION: Routine screening mammogram in 1 year. Bilateral Report Dictated on Electronically Signed By: Alanis Redd Electronically Signed Date/Time: 05/21/2022 10:54 AM EST [facility] Radiology Study observation (narrative) [facility] alth DBT Breast - bilateral scree ningOrdered By: Alanis Redd on 05-21-2022 [facility] Work Phone: No Panel InformationOrdered By: Lex Roca on 03-09-2022 Thyroid Stimulating Hormone (TSH) 2.31 uIU/mL 0.358-3.74 [facility] Basophil percentageon 2021 Bilirubin [Mass/Vol] 0.30 mg/dL 0.20-1.00 [facility] Work Phone: Comment on above: For patients on eltr ombopag therapy, use of Dimension [place] TBIL is not recommended. Chloride [Moles/Vol] 110 mmol/L 98-107 [facility] Work Phone: Cholesterol [Mass/Vol] 161 mg/dL <200 [facility] Work Phone: Comment on above: <200 mg/dL Desirable 200-240 mg/dL Borderline >240 mg/dL High Risk Glucose [Mass/Vol] 85 mg/dL 74-106 [facility] Work Phone: Potassium [Moles/Vol] 4.0 mmol/L 3.5-5.1 [facility] Work Phone: Protein [Mass/Vol] 6.7 g/dL 6.4-8.2 [facility] Work Phone: Sodium [Moles/Vol] 144 mmol/L 136-145 [facility] Work Phone: Triglyceride [Mass/Vol] 214 mg/dL <199 [facility] Work Phone: Comment on above: The drugs N-Acetylcy steine and Metamizole may falsely depress this assay.Serum Triglycerides Reference Interval Normal <150 mg/dL Borderline high 150 - 199 mg/dL High 200 - 499 mg/dL Very High > or = 500 mg/dL Direct bilirubinon Bilirubin.direct [Mass/Vol] 0.09 mg/dL 0.00-0.30 [facility] Work Phone: Laboratory - Chemistry and C hemistry - challengeon 12-04-2021 ALP [Catalytic activity/Vol] 56 U/L 45-117 [facility] Work Phone: ALT [Catalytic activity/Vol] 21 U/L 13-56 [facility] Work Phone: [phone] CO2 [Moles/Vol] 27.0 mmol/L 21.0-32.0 [facility] Work Phone: Globulin (S) [Mass/Vol] 3.8 g/dL 2.2-4.2 [facility] Work Phone: Urea nitrogen/Creatinine [Mass ratio] 24.0 mg/mg 10-20 [facility] Work Phone: No Panel Informationon 12-04 Estimated GFR (MDRD) Amer 44 mL/min >60 [facility] Work Phone: Comment on above: GFR Calc Estimated GFR (MDRD) Non-Af Amer 37 mL/min >60 [facility] Work Phone: Comment on above: Non- GFR Calc Thyroid Stimulating Hormone (TSH) 4.16 uIU/mL 0.358-3.74 [facility] Work Phone: [phone] Serum or plasma albumin aba urement (mass/volume)on 12-04-2021 Albumin [Mass/Vol] 2.9 g/dL 3.2-5.0 [facility] Work Phone: [phone] Serum or plasma calcium aba urement (mass/volume)on 12-04-2021 Calcium [Mass/Vol] 8.7 mg/dL 8.5-10.1 [facility] Work Phone: Serum or plasma cholesterol in HDL measurement (mass/volume)on 12-04-2021 Cholesterol in HDL [Mass/Vol] 34 mg/dL >40 [facility] Work Phone: Comment on above: The drugs N-Acetylcy steine and Metamizole may falsely depress this assay. Reference Range HDL <40 mg/dL Low HDL Cholesterol HDL >or= 60 mg/dL High HDL Cholesterol Serum or plasma cholesterol in VLDL measurement (mass/volume)on 12-04-2021 Cholesterol in VLDL [Mass/Vol] 43 mg/dL 5-40 [facility] Work Phone: [phone] Serum or plasma creatinine m easurement (mass/volume)on 12-04-2021 Creatinine [Mass/Vol] 1.54 mg/dL 0.55-1.02 [facility] Work Phone: Comment on above: The validity of the calculated GFR & GFRAA in patients over 70 years has not been determined. Clinical correlation is essential. Serum or plasma low density lipoprotein (LDL) cholesterol measurement (mass/volume)on 12-04-2021 Cholesterol in LDL [Mass/Vol] 84 mg/dL 0-130 [facility] Work Phone: Serum or plasma urea nitroge n measurement (mass/volume)on 12-04-2021 Urea nitrogen [Mass/Vol] 37 mg/dL 7-18 [facility] Work Phone: [phone] Thin prep Papanicolaou smear with manual screeningon 12-04-2021 Thin prep Papanicolaou smear with manual screening 14 U/L 15-37 [facility] Work Phone: [phone] Thin prep Papanicolaou smear with manual screening 7 5-15 [facility] Work Phone: [phone] Whole blood hemoglobin A1c/t otal hemoglobin ratio (mass fraction)on 12-04-2021 HbA1c (Bld) [Mass fraction] 6.7 % 3.8-5.6 [facility] Work Phone: [phone] Comment on above: Normal < 5.7 % Predi abetic 5.7 - 6.4 % Diabetic >or= 6.5 % Please note range changes. No Panel Informationon 08-11 Thyroid Stimulating Hormone (TSH) 4.27 uIU/mL 0.358-3.74 [facility] Work Phone: MG Breast Tomosynthesis Scr Blon 05-20-2021 MG Breast Tomosynthesis Scr Bl Patient Name: CINTHYA CASTILLO Mammography ACCESSION EXAM DATE/TIME PROCEDURE ORDERING PROVIDER [id number] 05/20/2021 10:55 EST MG Breast Tomosynthesis Mary Jane ROCA, LEX Stone BI Scr CPT code [id number] Reason For Exam (MG Breast Tomosynthesis BI Scr) screening Report TIME SINCE LAST MAMMOGRAM: Last mammogram was performed 4 years and 5 months ago. REASON FOR EXAM: screening, asymptomatic. PROCEDURE: MG BREAST TOMOSYNTHESIS BL SCR: MAY 20, 2021 - 2D/3D Procedure 3D Bilateral CC and MLO view(s) were taken. 2D Bilateral CC and MLO view(s) were taken. Prior study comparison: December 16, 2016, bilateral MG breast tomosynthesis bl scr performed at [facility]. December 16, 2015, bilateral screening mammogram performed at [facility]. December 14, 2014, bilateral screening mammogram performed at [facility]. TISSUE DENSITY: BIRADS B - There are scattered fibroglandular densities. . PATIENT CANCER HISTORY: No Personal History of Cancer FAMILY CANCER HISTORY: No Family History of Cancer . FINDINGS: The images are somewhat limited due to nonstandard positioning because of the patient's physical limitations. The best images possible were obtained. No suspicious masses, architectural distortions or suspiciously clustered microcalcifications are identified. There are no significant changes when compared with prior studies. IMPRESSION: No mammographic evidence of malignancy. Markings on images: BB's = Nipples; skin lesions Open kashia = Palpable Line = Scar Mammography Report 2D digital mammography and tomosynthesis imaging were performed and reviewed with CAD. ASSESSMENT: Category 1 Negative RECOMMENDATION: Routine screening mammogram of both breasts in 1 year. . Report Dictated on Cancer Risk Assessment: This risk assessment is based on patient provided information collected in a risk survey taken at the time of this examination. Lifetime breast cancer risk: Average Risk - If greater than or equal to 20%, consider annual mammogram and annual screening Breast MRI or follow up in high risk clinic. A score of Average Risk indicates a score of less than 20%. Is the patient at elevated risk based on the HBOC criteria? No (Hereditary Breast and Ovarian Cancer) - If yes, consider genetic counseling and testing with high risk follow up. Is the patient at elevated risk based on the Castillo Syndrome criteria? No - If yes, consider genetic counseling and testing with high risk follow up. Final Signed Date and Time: 05/20/2021 1:31 pm Signed by: MD CASTRO KERISTEN L Normal [facility] Serafin Digital Screen Monica cote 05-20-2021 Patient Name: CINTHYA CASTILLO Mammography ACCESSION EXAM DATE/TIME PROCEDURE ORDERING PROVIDER [id number] 05/20/2021 10:55 EST MG Breast Tomosynthesis Mary Jane ROCA, LEX Stone BI Scr CPT code 86370 45210 Reason For Exam (MG Breast Tomosynthesis BI Scr) screening Report TIME SINCE LAST MAMMOGRAM: Last mammogram was performed 4 years and 5 months ago. REASON FOR EXAM: screening, asymptomatic. PROCEDURE: MG BREAST TOMOSYNTHESIS BL SCR: MAY 20, 2021 - 2D/3D Procedure 3D Bilateral CC and MLO view(s) were taken. 2D Bilateral CC and MLO view(s) were taken. Prior study comparison: December 16, 2016, bilateral MG breast tomosynthesis bl scr performed at [facility]. December 16, 2015, bilateral screening mammogram performed at [facility]. December 14, 2014, bilateral screening mammogram performed at [facility]. TISSUE DENSITY: BIRADS B - There are scattered fibroglandular densities. . PATIENT CANCER HISTORY: No Personal History of Cancer FAMILY CANCER HISTORY: No Family History of Cancer . FINDINGS: The images are somewhat limited due to nonstandard positioning because of the patient's physical limitations. The best images possible were obtained. No suspicious masses, architectural distortions or suspiciously clustered microcalcifications are identified. There are no significant changes when compared with prior studies. IMPRESSION: No mammographic evidence of malignancy. Markings on images: BB's = Nipples; skin lesions Open kashia = Palpable Line = Scar Mammography Report 2D digital mammography and tomosynthesis imaging were performed and reviewed with CAD. ASSESSMENT: Category 1 Negative RECOMMENDATION: Routine screening mammogram of both breasts in 1 year. . Report Dictated on Cancer Risk Assessment: This risk assessment is based on patient provided information collected in a risk survey taken at the time of this examination. Lifetime breast cancer risk: Average Risk - If greater than or equal to 20%, consider annual mammogram and annual screening Breast MRI or follow up in high risk clinic. A score of Average Risk indicates a score of less than 20%. Is the patient at elevated risk based on the HBOC criteria? No (Hereditary Breast and Ovarian Cancer) - If yes, consider genetic counseling and testing with high risk follow up. Is the patient at elevated risk based on the Castillo Syndrome criteria? No - If yes, consider genetic counseling and testing with high risk follow up. --- Final --- Signed Date and Time: 05/20/2021 1:31 pm Signed by: MD GLORIA, SHEBA Starkey [facility] Sheba Castro MD - 05/20/2021 Patient Name: CINTHYA CASTILLO Mammography ACCESSION EXAM DATE/TIME PROCEDURE ORDERING PROVIDER [id number] 05/20/2021 10:55 EST MG Breast Tomosynthesis Mary Jane ROCA THOMAS S BI Scr CPT code 60260 [id number] Reason For Exam (MG Breast Tomosynthesis BI Scr) screening Report TIME SINCE LAST MAMMOGRAM: Last mammogram was performed 4 years and 5 months ago. REASON FOR EXAM: screening, asymptomatic. PROCEDURE: MG BREAST TOMOSYNTHESIS BL SCR: MAY 20, 2021 - 2D/3D Procedure 3D Bilateral CC and MLO view(s) were taken. 2D Bilateral CC and MLO view(s) were taken. Prior study comparison: December 16, 2016, bilateral MG breast tomosynthesis bl scr performed at [facility]. December 16, 2015, bilateral screening mammogram performed at [facility]. December 14, 2014, bilateral screening mammogram performed at [facility]. TISSUE DENSITY: BIRADS B - There are scattered fibroglandular densities. . PATIENT CANCER HISTORY: No Personal History of Cancer FAMILY CANCER HISTORY: No Family History of Cancer . FINDINGS: The images are somewhat limited due to nonstandard positioning because of the patient's physical limitations. The best images possible were obtained. No suspicious masses, architectural distortions or suspiciously clustered microcalcifications are identified. There are no significant changes when compared with prior studies. IMPRESSION: No mammographic evidence of malignancy. Markings on images: BB's = Nipples; skin lesions Open kashia = Palpable Line = Scar Mammography Report 2D digital mammography and tomosynthesis imaging were performed and reviewed with CAD. ASSESSMENT: Category 1 Negative RECOMMENDATION: Routine screening mammogram of both breasts in 1 year. . Report Dictated on Cancer Risk Assessment: This risk assessment is based on patient provided information collected in a risk survey taken at the time of this examination. Lifetime breast cancer risk: Average Risk - If greater than or equal to 20%, consider annual mammogram and annual screening Breast MRI or follow up in high risk clinic. A score of Average Risk indicates a score of less than 20%. Is the patient at elevated risk based on the HBOC criteria? No (Hereditary Breast and Ovarian Cancer) - If yes, consider genetic counseling and testing with high risk follow up. Is the patient at elevated risk based on the Castillo Syndrome criteria? No - If yes, consider genetic counseling and testing with high risk follow up. --- Final --- Signed Date and Time: 05/20/2021 1:31 pm Signed by: MD GLORIA, SHEBA Starkey [facility] Work Phone: Radiology Study observation (narrative) [facility] Work Phone: [facility] Serafin Digital Screen Bila teralOrdered By: Sheba Castro on 05-20-2021 [facility] Work Phone: Basophil percentageon 2021 Bilirubin [Mass/Vol] 0.30 mg/dL 0.20-1.00 [facility] Work Phone: Comment on above: For patients on eltr ombopag therapy, use of Dimension [place] TBIL is not recommended. Chloride [Moles/Vol] 110 mmol/L 98-107 [facility] Work Phone: Cholesterol [Mass/Vol] 160 mg/dL <200 [facility] Work Phone: [phone] Comment on above: <200 mg/dL Desirable 200-240 mg/dL Borderline >240 mg/dL High Risk Glucose [Mass/Vol] 119 mg/dL 74-106 [facility] Work Phone: Comment on above: Fasting Glucose resu lt from 100 to 125 mg/dL suggests IMPAIRED HOMEOSTASIS per A.D.A. criteria. Potassium [Moles/Vol] 4.5 mmol/L 3.5-5.1 [facility] Work Phone: Comment on above: Slight Hemolysis, Re sult may be falsely increased. Protein [Mass/Vol] 6.3 g/dL 6.4-8.2 [facility] Work Phone: Sodium [Moles/Vol] 141 mmol/L 136-145 [facility] Work Phone: [phone] Triglyceride [Mass/Vol] 179 mg/dL [facility] Work Phone: [phone] Comment on above: The drugs N-Acetylcy steine and Metamizole may falsely depress this assay.Serum Triglycerides Reference Interval Normal <150 mg/dL Borderline high 150 - 199 mg/dL High 200 - 499 mg/dL Very High > or = 500 mg/dL WBC (Bld) [#/Vol] 8.4 10*3/uL 4.4-11.0 [facility] Work Phone: [phone] Blood erythrocytes count (nu mber/volume)on 05-05-2021 RBC (Bld) [#/Vol] 4.24 10*6/uL 4.2-5.4 [facility] Work Phone: [phone] Blood hemoglobin measurement (mass/volume)on 05-05-2021 Hemoglobin (Bld) [Mass/Vol] 12.5 g/dL 12.0-15.0 [facility] Work Phone: [phone] Blood platelet mean volumeon 05-05-2021 Platelet mean volume (Bld) [Entitic vol] 9.8 fL 6.2-12.0 [facility] Work Phone: [phone] Determination of erythrocyte mean corpuscular volume (MCV)on 05-05-2021 MCV (RBC) [Entitic vol] 89.2 fL 81-99 [facility] Work Phone: [phone] Hematocrit Auto (Bld) [Volum e fraction]on 05-05-2021 Hematocrit (Bld) [Volume fraction] 37.8 % 37-47 [facility] Work Phone: Laboratory - Chemistry and C hemistry - challengeon 05-05-2021 ALP [Catalytic activity/Vol] 71 U/L 45-117 [facility] Work Phone: ALT [Catalytic activity/Vol] 25 U/L 13-56 [facility] Work Phone: [phone] CO2 [Moles/Vol] 29.0 mmol/L 21.0-32.0 [facility] Work Phone: Globulin (S) [Mass/Vol] 3.6 g/dL 2.2-4.2 [facility] Work Phone: [phone] Urea nitrogen/Creatinine [Mass ratio] 21.4 mg/mg 10-20 [facility] Work Phone: [phone] - Hematology and Cell countson 05-05-2021 Erythrocyte distribution width (RBC) [Entitic vol] 41.5 fL 35.1-43.9 [facility] Work Phone: [phone] Erythrocyte distribution width (RBC) [Ratio] 12.8 % 11.6-14.6 [facility] Work Phone: [phone] MCH (RBC) [Entitic mass] 29.5 pg 27.0-32.0 [facility] Work Phone: MCHC Auto (RBC) [Mass/Vol]on 02-14-2022 MCHC (RBC) [Mass/Vol] 33.1 g/dL 32-36 [facility] Work Phone: No Panel Informationon 05-05 Estimated GFR (MDRD) Amer 44 mL/min >60 [facility] Work Phone: [phone] Comment on above: GFR Calc Estimated GFR (MDRD) Non-Af Amer 37 mL/min >60 [facility] Work Phone: [phone] Comment on above: Non- GFR Calc Thyroid Stimulating Hormone (TSH) 5.77 uIU/mL 0.358-3.74 [facility] Work Phone: [phone] Vitamin D 25-Hydroxy 22.2 ng/mL [facility] Work Phone: [phone] Comment on above: Vitamin D 25(OH) Sta tus Range Deficiency <20 ng/mL (50nmol/L) Insufficiency 20 - 30 ng/mL (50 - 75 nmol/L) Sufficiency 30 - 100 ng/mL (75 - 250 nmol/L) Toxicity >100 ng/mL (>250 nmol/L) Platelets bldon 05-05-2021 Platelets (Bld) [#/Vol] 309 10*3/uL 150-450 [facility] Work Phone: [phone] Serum or plasma albumin aba urement (mass/volume)on 05-05-2021 Albumin [Mass/Vol] 2.7 g/dL 3.2-5.0 [facility] Work Phone: [phone] Serum or plasma albumin/glob ulin mass ratioon 05-05-2021 Albumin/Globulin [Mass ratio] 0.8 {ratio} 0.9-2.4 [facility] Work Phone: [phone] Serum or plasma calcium aba urement (mass/volume)on 05-05-2021 Calcium [Mass/Vol] 8.4 mg/dL 8.5-10.1 [facility] Work Phone: [phone] Serum or plasma cholesterol in HDL measurement (mass/volume)on 05-05-2021 Cholesterol in HDL [Mass/Vol] 34 mg/dL [facility] Work Phone: Comment on above: The drugs N-Acetylcy steine and Metamizole may falsely depress this assay. Reference Range HDL <40 mg/dL Low HDL Cholesterol HDL >or= 60 mg/dL High HDL Cholesterol Serum or plasma cholesterol in VLDL measurement (mass/volume)on 05-05-2021 Cholesterol in VLDL [Mass/Vol] 36 mg/dL 5-40 [facility] Work Phone: Serum or plasma creatinine m easurement (mass/volume)on 05-05-2021 Creatinine [Mass/Vol] 1.54 mg/dL 0.55-1.02 [facility] Work Phone: Comment on above: The validity of the calculated GFR & GFRAA in patients over 70 years has not been determined. Clinical correlation is essential. Serum or plasma low density lipoprotein (LDL) cholesterol measurement (mass/volume)on 05-05-2021 Cholesterol in LDL [Mass/Vol] 90 mg/dL 0-130 [facility] Work Phone: Serum or plasma urea nitroge n measurement (mass/volume)on 05-05-2021 Urea nitrogen [Mass/Vol] 33 mg/dL 7-18 [facility] Work Phone: Thin prep Papanicolaou smear with manual screeningon 05-05-2021 Thin prep Papanicolaou smear with manual screening 17 U/L 15-37 [facility] Work Phone: Comment on above: Slight Hemolysis, Re sult may be falsely increased. Thin prep Papanicolaou smear with manual screening 2 5-15 [facility] Work Phone: Whole blood hemoglobin A1c/t otal hemoglobin ratio (mass fraction)on 05-05-2021 HbA1c (Bld) [Mass fraction] 6.7 % 3.8-5.6 [facility] Work Phone: Comment on above: Normal < 5.7 % Predi abetic 5.7 - 6.4 % Diabetic >or= 6.5 % Please note range changes. XR Finger Right 2nd digit In dex 2 plus viewson 08-12-2018 XR Finger Right 2nd digit Index 2 plus views RIGHT SECOND FINGER: CLINICAL INDICATION: Injury of finger of right hand. Smashed nail of second digit. TECHNIQUE: PA hand as well as lateral and oblique finger views COMPARISON: None. FINDINGS: There is irregularity of the soft tissues about the distal radial aspect of the second digit. No evidence for underlying bony abnormality. There is some bandage material about the distal second digit. There is no evidence for fracture. There is a chronic appearing ossific fragment about the distal ulna. IMPRESSION: 1. Irregularity of the soft tissues about the distal radial aspect of the second digit compatible with history of crush injury. There is no evidence for underlying bony abnormality. Report Dictated on Authenticated by: Jo Avendano On: 08/12/2018 09:22 Read by: JO AVENDANO MD Date: 08/12/2018 09:22 [facility] Glucose,Bedsideon 07-18-2018 Glucose mass conc 174 mg/dL High 70-100 [facility] Comment on above: Result Comment: Test performed by glucose meter. Results may be 10%-15% lower than serum/plasma values. (CLIA ID [id number]) Performed By: #### H EMDF, CMP3, TROPN, LIPA4, HA1C2 #### [employer] [address] [place] [phone] Glucose mass conc 236 mg/dL High 70-100 [facility] Comment on above: Result Comment: Test performed by glucose meter. Results may be 10%-15% lower than serum/plasma values. (CLIA ID [id number]) Performed By: #### H EMDF, CMP3, TROPN, LIPA4, HA1C2 #### [employer] [facility] [place] [address] Add on test from HISon 07-17 Add on test from HIS Accepted Normal [facility] [employer] [facility] Comment on above: Result Comment: Spec imen available & acceptable for analysis. Performed By: #### A DDON #### [facility] [address] [place] [address] Basic Metabolic Panelon 06-21 Anion gap molar conc 8 Normal [facility] [employer] [facility] Comment on above: Performed By: #### H EMDF, CMP3, TROPN, LIPA4, HA1C2 #### [address] [place] [address] Calcium mass conc 8.7 mg/dL Normal 8.4-10.4 [facility] Comment on above: Performed By: #### H EMDF, CMP3, TROPN, LIPA4, HA1C2 #### [address] [address] Chloride molar conc 108 mmol/L High 98-107 [facility] Comment on above: Performed By: #### H EMDF, CMP3, TROPN, LIPA4, HA1C2 #### [address] [address] [place] [address] CO2 molar conc 24 mmol/L Normal 22-30 [facility] Comment on above: Performed By: #### H EMDF, CMP3, TROPN, LIPA4, HA1C2 #### [address] [address] [place] [address] Creatinine mass conc 0.85 mg/dL Normal 0.52-1.25 [facility] Comment on above: Performed By: #### H EMDF, CMP3, TROPN, LIPA4, HA1C2 #### [address] [address] [place] [address] GFR/1.73 sq M predicted among blacks MDRD vol rate/area (S/P/Bld) mL/min/{1.73_m2} Normal >60 [facility] Comment on above: Performed By: #### H EMDF, CMP3, TROPN, LIPA4, HA1C2 #### [address] [place] [address] GFR/1.73 sq M predicted among non-blacks MDRD vol rate/area (S/P/Bld) mL/min/{1.73_m2} Normal >60 [facility] Comment on above: Result Comment: Sour ce- MDRD equation with creatinine calibration to IDMS(NKDEP) eGFR not recommended for drug dose adjustment Performed By: #### H EMDF, CMP3, TROPN, LIPA4, HA1C2 #### [address] [place] [address] Glucose mass conc 328 mg/dL High 70-100 [facility] Comment on above: Performed By: #### H EMDF, CMP3, TROPN, LIPA4, HA1C2 #### [facility] [address] [place] [address] Potassium molar conc 3.9 mmol/L Normal 3.5-5.1 [facility] Comment on above: Performed By: #### H EMDF, CMP3, TROPN, LIPA4, HA1C2 #### [facility] [address] [place] [address] Sodium molar conc 140 mmol/L Normal 135-145 [facility] Comment on above: Result Comment: Down time Data Recovery: Caution when interpreting results with collection date & time. Performed By: #### H EMDF, CMP3, TROPN, LIPA4, HA1C2 #### [address] [place] [address] Urea nitrogen mass conc 17 mg/dL Normal 7-20 [facility] Comment on above: Performed By: #### H EMDF, CMP3, TROPN, LIPA4, HA1C2 #### [address] [place] [address] Glucose,Bedsideon 07-17-2018 Glucose mass conc 264 mg/dL High 70-100 [facility] Comment on above: Result Comment: Test performed by glucose meter. Results may be 10%-15% lower than serum/plasma values. (CLIA ID [id number]) Performed By: #### H EMDF, CMP3, TROPN, LIPA4, HA1C2 #### [address] [place] [address] Glucose mass conc 271 mg/dL High 70-100 [facility] Comment on above: Result Comment: Test performed by glucose meter. Results may be 10%-15% lower than serum/plasma values. (CLIA ID [id number]) Performed By: #### H EMDF, CMP3, TROPN, LIPA4, HA1C2 #### [address] [address] Glucose mass conc 265 mg/dL High 70-100 [facility] Comment on above: Result Comment: Test performed by glucose meter. Results may be 10%-15% lower than serum/plasma values. (CLIA ID [id number]) Performed By: #### H EMDF, CMP3, TROPN, LIPA4, HA1C2 #### [address] Hemoglobin A1Con 07-17-2018 Hemoglobin A1c/Hemoglobin.total mass fraction (Bld) 217 mg/dL Normal [facility] Comment on above: Performed By: #### H EMDF, CMP3, TROPN, LIPA4, HA1C2 #### [address] Hemoglobin A1c/Hemoglobin.total mass fraction (Bld) 9.2 % High 4.0-5.7 [facility] Comment on above: Result Comment: --Hg bA1C levels may not be accurate in patients who have renal disease, received recent blood transfusions, are anemic, or who have dyshemoglobinemia. Performed By: #### H EMDF, CMP3, TROPN, LIPA4, HA1C2 #### [address] Troponin Ion 07-17-2018 Troponin I.cardiac mass conc ng/mL Normal 0.000-0.034 [facility] Comment on above: Result Comment: 0.04 6 - 0.400 = Indeterminate > 0.400 = Consider Myocardial Injury Performed By: #### T ROPN #### [address] [address] [address] Abdomen/Pelvis w/ Contras ton 07-16-2018 CT Abdomen/Pelvis w/ Contrast Patient Name: CINTHYA CASTILLO CT Exam Date/Time 07/16/2018 19:52:[address] Abdomen/Pelvis w/ IV Contrast (IV Onl Ordering Physician YENY ABERNATHY Accession Number [id number] CPT4 Codes 00066 (CT Abdomen/Pelvis w/ IV Contrast (IV Onl), Q9967 (CT ISOVUE 370MG/[id number] andMLand1) Reason For Exam ABDOMINAL PAIN Report CT of the abdomen and pelvis with intravenous contrast, 07/16/2018. Reason for examination: Abdominal pain with nausea and vomiting. COMPARISON: December 10, 2017. TECHNIQUE: 3 mm axial images were obtained through the abdomen and pelvis following intravenous administration of 75 mL of Isovue-370. No oral contrast was administered. Coronal and sagittal reconstructions were created and reviewed. FINDINGS: There is mild scarring or atelectasis in the lung bases. ABDOMEN: No lesion is identified in the liver, spleen, pancreas, adrenal glands, or right kidney. There is a subcentimeter low-attenuation cortical lesion in the midportion of the left kidney which is too small to accurately characterize. There is no bowel distention. No lymphadenopathy or abnormal fluid collection is noted. There is a small umbilical hernia containing fat. Pelvis: No mass or lymphadenopathy is identified. No inflammatory process or abnormal fluid collection is identified. The appendix is noted in the right lower quadrant and appears within normal limits. There are small calcified phleboliths in the pelvis. There are a few diverticula the sigmoid colon. There is no evidence of diverticulitis. There are degenerative changes in the lower thoracic and lumbar spine. IMPRESSION: Chronic findings including small hiatal hernia and nonspecific subcentimeter left kidney lesion. Mild diverticulosis of the distal colon. No definite acute process. Report Dictated on Final Dictated: 07/16/2018 8:00 pm Dictating Physician: MD LEMUS JOE M Signed Date and Time: 07/16/2018 8:04 pm Signed by: MD LEMUS JOE M Transcribed Date and Time: 07/16/2018 8:00 Normal [facility] [employer] [facility] Comp Metabolic Panelon 07-16 ALP enzyme act/vol 63 U/L Normal 38-126 [facility] Comment on above: Result Comment: Slig htly hemolysed, interpret with caution. Performed By: #### H EMDF, CMP3, TROPN, LIPA4, HA1C2 #### [facility] [employer] [address] [address] ALT enzyme act/vol 25 U/L Normal 13-69 [facility] Comment on above: Result Comment: Slig htly hemolysed, interpret with caution. Performed By: #### H EMDF, CMP3, TROPN, LIPA4, HA1C2 #### [address] [address] AST enzyme act/vol 34 U/L Normal 15-46 [facility] Comment on above: Result Comment: Slig htly hemolysed, interpret with caution. Performed By: #### H EMDF, CMP3, TROPN, LIPA4, HA1C2 #### [address] [address] [place], [place] Calcium mass conc 9.1 mg/dL Normal 8.4-10.4 [facility] Comment on above: Performed By: #### H EMDF, CMP3, TROPN, LIPA4, HA1C2 #### [address] [place], [place] Glucose mass conc 357 mg/dL High 70-100 [facility] Comment on above: Performed By: #### H EMDF, CMP3, TROPN, LIPA4, HA1C2 #### [address] [place], [place] Protein mass conc 7.6 g/dL Normal 6.3-8.2 [facility] Comment on above: Performed By: #### H EMDF, CMP3, TROPN, LIPA4, HA1C2 #### [address] [place], [place] Urea nitrogen mass conc 26 mg/dL High 7-20 [facility] Comment on above: Performed By: #### H EMDF, CMP3, TROPN, LIPA4, HA1C2 #### [address] [place], [place] Anion gap molar conc 11 Normal [facility] Comment on above: Performed By: #### H EMDF, CMP3, TROPN, LIPA4, HA1C2 #### [address] [place], [place] Bilirubin mass conc 0.6 mg/dL Normal 0.2-1.3 [facility] Comment on above: Performed By: #### H EMDF, CMP3, TROPN, LIPA4, HA1C2 #### [address] CO2 molar conc 23 mmol/L Normal 22-30 [facility] Comment on above: Performed By: #### H EMDF, CMP3, TROPN, LIPA4, HA1C2 #### [address] Creatinine mass conc 0.93 mg/dL Normal 0.52-1.25 [facility] Comment on above: Performed By: #### H EMDF, CMP3, TROPN, LIPA4, HA1C2 #### [address] GFR/1.73 sq M predicted among blacks MDRD vol rate/area (S/P/Bld) mL/min/{1.73_m2} Normal >60 [facility] Comment on above: Performed By: #### H EMDF, CMP3, TROPN, LIPA4, HA1C2 #### [address] GFR/1.73 sq M predicted among non-blacks MDRD vol rate/area (S/P/Bld) mL/min/{1.73_m2} Normal >60 [facility] Comment on above: Result Comment: Sour ce- MDRD equation with creatinine calibration to IDMS(NKDEP) eGFR not recommended for drug dose adjustment Performed By: #### H EMDF, CMP3, TROPN, LIPA4, HA1C2 #### [address] Albumin mass conc 4.1 g/dL Normal 3.5-5.0 [facility] Comment on above: Performed By: #### H EMDF, CMP3, TROPN, LIPA4, HA1C2 #### [address] Chloride molar conc 106 mmol/L Normal 98-107 [facility] Comment on above: Performed By: #### H EMDF, CMP3, TROPN, LIPA4, HA1C2 #### [address] Potassium molar conc 4.7 mmol/L Normal 3.5-5.1 [facility] Comment on above: Result Comment: Slig htly hemolysed, interpret with caution. Performed By: #### H EMDF, CMP3, TROPN, LIPA4, HA1C2 #### [address] Sodium molar conc 140 mmol/L Normal 135-145 [facility] Comment on above: Performed By: #### H EMDF, CMP3, TROPN, LIPA4, HA1C2 #### [address] Hemogram w/ Autodiffon 07-16 Abs Baso Cnt 0.1 10*3/uL Normal 0.0-0.2 [facility] Comment on above: Performed By: #### H EMDF, CMP3, TROPN, LIPA4, HA1C2 #### [address] Abs Neutrophile Cnt 8.5 10*3/uL High 1.8-7.0 [facility] Comment on above: Performed By: #### H EMDF, CMP3, TROPN, LIPA4, HA1C2 #### [address] Basophils/100 WBC (Bld) 0.7 % Normal 0.0-2.0 [facility] Comment on above: Performed By: #### H EMDF, CMP3, TROPN, LIPA4, HA1C2 #### [address] Eosinophils #/vol (Bld) 0.1 10*3/uL Normal 0.0-0.5 [facility] Comment on above: Performed By: #### H EMDF, CMP3, TROPN, LIPA4, HA1C2 #### [address] Eosinophils/100 WBC (Bld) 1.2 % Normal 1.0-6.0 [facility] Comment on above: Performed By: #### H EMDF, CMP3, TROPN, LIPA4, HA1C2 #### [address] Erythrocyte distribution width Ratio (RBC) 14.3 % Normal 11.5-14.5 [facility] Comment on above: Performed By: #### H EMDF, CMP3, TROPN, LIPA4, HA1C2 #### [address] Granulocytes/100 WBC (Bld) 81.1 % High 40.0-80.0 [facility] Comment on above: Performed By: #### H EMDF, CMP3, TROPN, LIPA4, HA1C2 #### [address] Hematocrit Volume Fraction (Bld) 39.7 % Normal 35.0-47.0 [facility] Comment on above: Performed By: #### H EMDF, CMP3, TROPN, LIPA4, HA1C2 #### [address] Hemoglobin mass conc (Bld) 13.9 g/dL Normal 11.7-16.0 [facility] Comment on above: Performed By: #### H EMDF, CMP3, TROPN, LIPA4, HA1C2 #### [address] Lymphocytes #/vol (Bld) 1.3 10*3/uL Normal 1.0-4.3 [facility] Comment on above: Performed By: #### H EMDF, CMP3, TROPN, LIPA4, HA1C2 #### [address] Lymphocytes/100 WBC (Bld) 12.7 % Low 20.0-40.0 [facility] Comment on above: Performed By: #### H EMDF, CMP3, TROPN, LIPA4, HA1C2 #### [place] [address] [place], [place] MCH Entitic mass (RBC) 30.4 pg Normal 26.0-34.0 [facility] Comment on above: Performed By: #### H EMDF, CMP3, TROPN, LIPA4, HA1C2 #### [place] [address] [place], [place] MCHC mass conc (RBC) 35.0 % Normal 32.0-36.0 [facility] Comment on above: Performed By: #### H EMDF, CMP3, TROPN, LIPA4, HA1C2 #### [address] MCV Entitic volume (RBC) 87.0 fL Normal 79.0-98.0 [facility] Comment on above: Performed By: #### H EMDF, CMP3, TROPN, LIPA4, HA1C2 #### [address] Monocytes #/vol (Bld) 0.4 10*3/uL Normal 0.0-0.8 [facility] Comment on above: Performed By: #### H EMDF, CMP3, TROPN, LIPA4, HA1C2 #### [address] Monocytes/100 WBC (Bld) 4.3 % Normal 2.0-10.0 [facility] Comment on above: Performed By: #### H EMDF, CMP3, TROPN, LIPA4, HA1C2 #### [place] [address] [place], [place] Platelet mean volume Entitic volume (Bld) 7.9 fL Normal 7.4-10.4 [facility] Comment on above: Performed By: #### H EMDF, CMP3, TROPN, LIPA4, HA1C2 #### [address] Platelets #/vol (Bld) 256 10*3/uL Normal 140-440 [facility] Comment on above: Performed By: #### H EMDF, CMP3, TROPN, LIPA4, HA1C2 #### [place] [address] [place], [place] RBC #/vol (Bld) 4.56 10*6/uL Normal 3.80-5.20 [facility] Comment on above: Performed By: #### H EMDF, CMP3, TROPN, LIPA4, HA1C2 #### [place] [address] [place], [place] WBC #/vol (Bld) 10.4 10*3/uL Normal 3.6-10.7 [facility] Comment on above: Performed By: #### H EMDF, CMP3, TROPN, LIPA4, HA1C2 #### [place] [address] [place], [place] Lipaseon 07-16-2018 Lipase enzyme act/vol 179 U/L Normal 23-300 [facility] Comment on above: Performed By: #### H EMDF, CMP3, TROPN, LIPA4, HA1C2 #### [place] [address] [place], [place] Troponin Ion 07-16-2018 Troponin I.cardiac mass conc ng/mL Normal 0.000-0.034 [facility] Comment on above: Result Comment: 0.04 6 - 0.400 = Indeterminate > 0.400 = Consider Myocardial Injury Performed By: #### H EMDF, CMP3, TROPN, LIPA4, HA1C2 #### [place] [address] [place], [place] Urinalysis,Macroon 9 Appearance Nom (U) clear Normal Clear [facility] Comment on above: Performed By: #### U AMAC, UAMIC #### [address] Bilirubin,Ur Negative Normal Negative [facility] Comment on above: Performed By: #### U AMAC, UAMIC #### [place] [address] [place], [place] Color Nom (U) yellow Normal Lt. Yellow [facility] Comment on above: Performed By: #### U AMAC, UAMIC #### [place] [address] [place], [place] Glucose Ql (U) 1000 mg/dL Normal Negative [facility] Comment on above: Performed By: #### U AMAC, UAMIC #### [place] [address] [place], [place] Ketone,Urine Negative Normal Negative [facility] Comment on above: Performed By: #### U AMAC, UAMIC #### [place] [address] [place], [place] Nitrite Ql (U) Negative Normal Negative [facility] Comment on above: Performed By: #### U AMAC, UAMIC #### [place] [address] [place], [place] Occult Blood,Ur 25 {RBC}/uL Normal Negative [facility] Comment on above: Performed By: #### U AMAC, UAMIC #### [place] [address] [place] pH (U) 5.0 Normal 5.0-8.0 [facility] Comment on above: Performed By: #### U AMAC, UAMIC #### [place] [address] [place], [place] Protein mass conc (U) 150 mg/dL Normal Negative [facility] Comment on above: Performed By: #### U AMAC, UAMIC #### [place] [address] [place], [place] Specific [place],Urine 1.015 Normal 1.005-1.030 [facility] Comment on above: Performed By: #### U AMAC, UAMIC #### [place] [address] [place] Urobilinogen Qn (U) NORM Normal 0-1 [facility] Comment on above: Performed By: #### U AMAC, UAMIC #### [place] [address] [place] WBC #/vol (Bld) Negative Normal Negative [facility] Comment on above: Performed By: #### U AMAC, UAMIC #### [address] Urinalysis,Microscopicon Bacteria LM.HPF #/area (Urine sed) Moderate (6-50) Normal Negative [facility] Comment on above: Performed By: #### U AMAC, UAMIC #### [place] [address] [place], [place] Epithelial cells LM.HPF #/area (Urine sed) 6 - 10 Normal 3-5 [facility] Comment on above: Performed By: #### U AMAC, UAMIC #### [address] RBC LM.HPF #/area (Urine sed) 3 - 5 Normal 0-2 [facility] Comment on above: Performed By: #### U AMAC, UAMIC #### [place] [address] [place], [place] Volume,Urine 8-12 ml Normal [facility] Comment on above: Performed By: #### U AMAC, UAMIC #### [address] WBC LM.HPF #/area (Urine sed) 3 - 5 Normal 0-5 [facility] Comment on above: Performed By: #### U AMAC, UAMIC #### [address] Comprehensive Panelon 2018 ALP enzyme act/vol 75 U/L Normal 46-116 [facility] Comment on above: Performed By: #### P 14 #### [facility] [address] [place] [address] Bilirubin mass conc 0.4 mg/dL Normal 0.2-1.0 [facility] Comment on above: Performed By: #### P 14 #### [facility] [address] [place] [address] Protein mass conc 7.8 g/dL Normal 6.4-8.2 [facility] Comment on above: Performed By: #### P 14 #### [facility] [address] [place], [place] [address] ALT enzyme act/vol 25 U/L Normal 12-78 [facility] Comment on above: Performed By: #### P 14 #### [facility] [address] [place] [address] AST enzyme act/vol 13 U/L Normal 9-37 [facility] Comment on above: Performed By: #### P 14 #### [facility] [address] [place], [place] [address] Creatinine mass conc 0.99 mg/dL High 0.51-0.95 [facility] Comment on above: Performed By: #### P 14 #### [facility] [address] [place] [address] Albumin mass conc 3.9 g/dL Normal 3.4-5.0 [facility] Comment on above: Performed By: #### P 14 #### [facility] [address] [place] [address] Anion gap molar conc 12 mmol/L Normal 8-16 [facility] Comment on above: Performed By: #### P 14 #### [facility] [address] [place] [address] CO2 molar conc 25 mmol/L Normal 21-32 [facility] Comment on above: Performed By: #### P 14 #### [facility] [address] [place], [place] [address] Glucose mass conc 92 mg/dL Normal 70-99 [facility] Comment on above: Performed By: #### P 14 #### [facility] [address] [place] [address] Urea nitrogen mass conc 19 mg/dL High 7-18 [facility] Comment on above: Performed By: #### P 14 #### [facility] [address] [place] [address] Calcium mass conc 9.3 mg/dL Normal 8.5-10.1 [facility] Comment on above: Performed By: #### P 14 #### [facility] [address] [place] [address] Chloride molar conc 108 mmol/L High 98-107 [facility] Comment on above: Performed By: #### P 14 #### [facility] [address] [place] [address] Potassium molar conc 3.4 mmol/L Low 3.5-5.1 [facility] Comment on above: Performed By: #### P 14 #### [facility] [address] [place] [address] Sodium molar conc 142 mmol/L Normal 136-145 [facility] Comment on above: Performed By: #### P 14 #### [facility] [address] [place] [address] ED NOTEon 06-27-2018 ED NOTE HNO ID: [id number] Author: Sarah PattenRn) SUNDEEP Newell Service: Nursing Author Type: Registered Nurse Type: ED Notes Filed: 06/27/2018 10:07 AM Note Text: Clean catch urine specimen obtained and sent. [facility] ED NOTE HNO ID: [id number] Author: Sarah PattenRn) SUNDEEP Newell Service: Nursing Author Type: Registered Nurse Type: ED Notes Filed: 06/27/2018 9:55 AM Note Text: ED U/S notified that patient is ready [facility] ED NOTE HNO ID: [id number] Author: Sarah PattenRn) Osiris RN Service: Nursing Author Type: Registered Nurse Type: ED Notes Filed: 06/27/2018 9:44 AM Note Text: Pt states that she can not ambulate to the bathroom, pt able to stand and ambulate in the room, pt assisted onto bedside commode. [facility] ED NOTE HNO ID: [id number] Author: Ara PattenRn) SUNDEEP Landrum Service: ? Author Type: Registered Nurse Type: ED Notes Filed: 06/27/2018 8:29 AM Note Text: Bed: 11-ED Expected date: 06/27/18 Expected time: Means of arrival: Comments: Squad, weak legs [facility] ED NOTE HNO ID: [id number] Author: Sarah Clifford) SUNDEEP Newlel Service: Nursing Author Type: Registered Nurse Type: ED Notes Filed: 06/27/2018 8:21 AM Note Text: Pt states that her leg is starting to bother her, "underneath her good leg". States pain began last night. Normal [facility] ED NOTE HNO ID: [id number] Author: Sarah (Rn) SUNDEEP Newell Service: Nursing Author Type: Registered Nurse Type: ED Notes Filed: 06/27/2018 8:20 AM Note Text: Pt unable to answer questions during assessment, rambling and flight of ideas. Pt states pain is 10 out of 10 but appears comfortable, laughing and watching TV during nursing assessment. Pt unable to understand nurse during multiple questions. Nurse attempting to rephrase some questions for better patient understanding. Nurse documenting pt response. Normal [facility] ED PROV NOTEon 06-27-2018 Protein mass conc HNO ID: [id number] Author: Bhavana Dewitt MD Service: Emergency Medicine Author Type: Physician Type: ED Provider Notes Filed: 06/27/2018 12:53 PM Note Text: The Patient Presents in Respiratory with Chest Discomfort, Nausea, Vomiting. She States That the Chest Discomfort Feels like Someone Squeezing Her Lower Rib Cage The Patient Is a Former Smoker Stated That She Quit 2 Years Ago. Her Lung Borden Are Diminished in the Bases, but Otherwise Clear in the Apices. There Are symmetric 3+ Deep Tendon Reflexes. There Are symmetric motor strength. The patient has some minimal epigastric tenderness with no rebound, guarding, or masses. Neurovascular status is intact, and she has no calf tenderness or swelling. Her EKG demonstrates a normal sinus rhythm. We will assess laboratory studies and try and control her nausea and vomiting. She is currently in stable condition. Bhavana Dewitt MD 06/27/18 1253 Normal [facility] Protein mass conc HNO ID: [id number] Author: Bhavana Dewitt MD Service: Emergency Medicine Author Type: Physician Type: ED Provider Notes Filed: 07/03/2018 2:32 PM Note Text: ED Provider Note Patient Name: Cinthya Castillo SERVICE DATE: 06/27/18 History Patient presents with: Weakness: Pt is from [facility]. Pt states this morning that she began to have weakness to bilateral lower extremities. Pt states +nausea -vomiting. Pt ambulatory with cane. MAEx4. Pt is diabetic. BS 114. Pt states that she has not eaten breakfast and did not take any of her morning medicine. Chest Pain Cinthya Castillo is a 57 year old female past medical history significant for DM who presents to the emergency department for the evaluation of weakness. The patient states that over the past week she has felt lightheaded. The patient states that when she stands she feels as if she may pass out.She endorses nausea without vomiting. She endorses upper and mid abdominal pain. She denies any prior abdominal surgeries. She also endorses chills. She denies fevers. The patient states that she has been unable to eat anything this morning did not take any for her morning medications. She is normally ambulatory with a walker at baseline. Her blood sugars normally run in the 100s to 200s. PAST MEDICAL HISTORY Diagnosis Date - Development delay - Hypertension - Type 2 diabetes mellitus with hyperglycemia, with long-term current use of insulin (HCC) No past surgical history on file. No family history on file. Social History Tobacco Use - Smoking status: Never Smoker - Smokeless tobacco: Never Used Substance and Sexual Activity - Alcohol use: No - Drug use: No - Sexual activity: Never ALLERGIES Allergen Reactions - Penicillin Unknown Pt unaware of reaction. Tolerated cephalexin 02/2018 Review of Systems Constitutional: Negative for fever. Respiratory: Negative for shortness of breath. Gastrointestinal: Positive for abdominal pain. Endocrine: Negative for polyuria. Genitourinary: Negative for difficulty urinating. All other systems reviewed and are negative. Physical Exam BP 149/92 Pulse 100 Temp (Src) 97.3 (Oral) Resp 18 Ht 5' 6" (1.68m) Wt 280 lb (127.0kg) SpO2 94% BMI 45.21 kg/(m2). O2 Therapy: Room Air Physical Exam Constitutional: She is oriented to person, place, and time. She appears well-developed and well-nourished. HENT: Head: Normocephalic and atraumatic. Eyes: Conjunctivae are normal. No scleral icterus. Neck: Normal range of motion. No tracheal deviation present. Cardiovascular: Normal rate and regular rhythm. Pulmonary/Chest: Effort normal and breath sounds normal. Abdominal: Soft. She exhibits no distension. There is tenderness (RUQ, epigastric, and LUQ). Neurological: She is alert and oriented to person, place, and time. Skin: Skin is warm. No rash noted. Psychiatric: She has a normal mood and affect. Her behavior is normal. Nursing note and vitals reviewed. Diagnostic Testing ED Labs Ordered and Reviewed - No data to display Procedures ED Course / Clinical Impression Clinical Impressions as of Jun 30 1836 Nausea and vomiting, intractability of vomiting not specified, unspecified vomiting type MDM / Disposition / Plan Cinthya Castillo is a 57 year old female past medical history significant for DM who presents to the emergency department for the evaluation of weakness. On physical exam, patient has normal S1-S2. Lungs are clear to auscultation bilaterally. Patient has upper abdominal tenderness on exam. CBC, CMP, lipase, UA will be obtained. EKG was obtained which revealed no acute ischemic changes. There was a delay in obtaining ultrasound given that they were backed up. Patient was able to eventually obtain a right upper quadrant ultrasound which revealed no acute etiology/no evidence of acute cholecystitis. UA showed 300 protein but was otherwise unremarkable. CMP and CBC were within normal limits. Lipase is within normal limits. Patient had symptom improvement with IV fluids and antiemetics. Patient was discharged with a prescription for Zofran as well as return precautions and follow-up was amenable to this plan. The patient was DISCHARGED: Counseled patient regarding lab results AND radiology results AND suspected diagnosis AND need for follow-up. Discharged home with verbal and written instructions. They were instructed to return as needed for persistent or worsening symptoms or any new concerns. Condition at time of disposition: stable SIGNATURE: Jenny Valero MD PGY-III Jenny(ResGloria Valero MD Resident 06/30/18 1841 Attending Note I evaluated the patient and personally participated in the craig components. I agree with the resident's findings and plan as documented and have discussed the case and management of the patient's care with the resident. Signature: Bhavana Dewitt MD Date: 07/03/2018 Time: 2:32 PM Bhavana Dewitt MD 07/03/18 1432 Normal [facility] Glucose Meteron 06-27-2018 Glucose mass conc 97 mg/dL Normal 70-99 [facility] Comment on above: Result Comment: SUNDEEP LAKHANI MD NOTIFIED Performed By: #### P 14 #### [place] [address] Hemogramon 06-27-2018 Erythrocyte distribution width Ratio (RBC) 13.3 % Normal 11.7-14.4 [facility] Comment on above: Performed By: #### P 14 #### [facility] [address] [place] [address] Hematocrit Volume Fraction (Bld) 38.8 % Normal 34.1-44.9 [facility] Comment on above: Performed By: #### P 14 #### [facility] [address] [place] [address] Hemoglobin mass conc (Bld) 13.2 g/dL Normal 11.2-15.7 [facility] Comment on above: Performed By: #### P 14 #### [facility] [address] [place] [address] MCH Entitic mass (RBC) 29.1 pg Normal 25.6-32.2 [facility] Comment on above: Performed By: #### P 14 #### [facility] [address] [place] [address] MCHC mass conc (RBC) 34.0 % Normal 31.6-34.8 [facility] Comment on above: Performed By: #### P 14 #### [facility] [address] [place] [address] MCV Entitic volume (RBC) 85.7 fL Normal 79.4-94.8 [facility] Comment on above: Performed By: #### P 14 #### [facility] [address] [place] [address] Platelet mean volume Entitic volume (Bld) 10.1 fL Normal 9.4-12.3 [facility] Comment on above: Performed By: #### P 14 #### [facility] [address] [place] [address] Platelets #/vol (Bld) 287 thou/cmm Normal 182-369 [facility] Comment on above: Performed By: #### P 14 #### [facility] [address] [place] [address] RBC #/vol (Bld) 4.53 mil/cmm Normal 3.93-5.22 [facility] Comment on above: Performed By: #### P 14 #### [facility] [address] [place] [address] RDW SD 41.7 fl Normal 36.4-46.3 [facility] Comment on above: Performed By: #### P 14 #### [facility] [address] [place] [address] WBC #/vol (Bld) 8.54 thou/cmm Normal 3.98-10.04 [facility] Comment on above: Performed By: #### P 14 #### [facility] [address] [place] [address] Lipase Bloodon 06-27-2018 Lipase Blood 122 U/L Normal 73-393 [facility] Comment on above: Performed By: #### L IP #### [facility] [address] [place] [address] MDRD GFRon 06-27-2018 GFR/1.73 sq M predicted among non-blacks MDRD vol rate/area (S/P/Bld) 57.91 mL/min/{1.73_m2} Normal >60mL/min/1. 73m2 [facility] Comment on above: Result Comment: If t he patient is , multiply the result by 1.210. Performed By: #### L IP #### [facility] [address] [place] [address] Urinalysis Routineon 019 Bacteria LM.HPF #/area (Urine sed) NONE Normal None [facility] Comment on above: Performed By: #### L IP #### [facility] [address] [place] [address] Ep Cells Urine 8.2 /hpf High 0.0-5.0 [facility] Comment on above: Performed By: #### L IP #### [facility] [address] [place] [address] Hyaline Cast 1.4 /lpf High 0.0-1.0 [facility] Comment on above: Performed By: #### L IP #### [place] [address] RBC,Urine 2.4 /hpf Normal 0.0-5.0 [facility] Comment on above: Performed By: #### L IP #### [facility] [address] [place] [address] WBC, Urine 5.3 /hpf High 0.0-5.0 [facility] Comment on above: Performed By: #### L IP #### [facility] [address] [place] [address] Appearance Nom (U) CLEAR Normal [facility] Comment on above: Performed By: #### L IP #### [facility] [address] [place] [address] Bilirubin Urine Negative Normal Negative [facility] Comment on above: Performed By: #### L IP #### [facility] [address] [place] [address] Color Nom (U) YELLOW Normal [facility] Comment on above: Performed By: #### L IP #### [facility] [address] [place] [address] Glucose Ql (U) Negative Normal Negative [facility] Comment on above: Performed By: #### L IP #### [facility] [address] [place] [address] Hemoglobin,Urine Negative Normal Negative [facility] Comment on above: Performed By: #### L IP #### [facility] [address] [place] [address] Ketone Urine Negative Normal Negative [facility] Comment on above: Performed By: #### L IP #### [facility] [address] [place] [address] Leukocytes Esterase Negative Normal Negative [facility] Comment on above: Performed By: #### L IP #### [facility] [address] [place] [address] Nitrites Urine Negative Normal Negative [facility] Comment on above: Performed By: #### L IP #### [facility] [address] [place] [address] pH (U) 7.0 [pH] Normal 5.0-8.0 [facility] Comment on above: Performed By: #### L IP #### [facility] [address] [place] [address] Protein mass conc (U) 300 mg/dL Abnormal Negative [facility] Comment on above: Performed By: #### L IP #### [facility] [address] [place], [place] [address] Specific [place] Point, Ur 1.025 Normal 1.005-1.030 Akr on [facility] Comment on above: Performed By: #### L IP #### [facility] 1 [place], [place] [address] Urobilinogen,Ur 1.0 EU/dL Normal 0.0-1.0 [facility] Comment on above: Performed By: #### L IP #### [facility] 1 [place], [place] [address] XR Chest Mobile 1 viewon XR Chest Mobile 1 view Indication: Short ness of breath. A frontal view of the chest timed 2309 was obtained with no prior studies available for comparison. The study is somewhat limited due to a combination of the patient's body habitus and underpenetrated technique. The heart is mildly enlarged. Atherosclerotic calcifications of the thoracic aorta are visualized. The mediastinum is unchanged in appearance. There is no gross pulmonary vascular congestion. No definite acute infiltrates are visualized. IMPRESSION: 1. Limited study. No definite active intrathoracic disease. Mild cardiomegaly. Report Dictated on Authenticated by: Dennis Morales On: 05/06/2018 23:57 Read by: DENNIS MORALES MD Date: 05/06/2018 23:57 [facility] XR Hip Left 2-3 viewson 04-22 XR Hip Left 2-3 views Indication: Pain f rom fall. Frontal view of the pelvis and two views of the left hip show no evidence of an acute fracture or dislocation. There are degenerative changes of the hips and visualized lower lumbar spine. There are no radiopaque foreign bodies. There are vascular calcifications. IMPRESSION: 1. No evidence of an acute fracture or dislocation of the left hip. Report Dictated on Authenticated by: Dennis Morales On: 05/07/2018 00:04 Read by: DENNIS MORALES MD Date: 05/07/2018 00:04 [facility] XR Knee Left complete 4 plus viewson 05-07-2018 XR Knee Left complete 4 plus views Indication: Pain. Four views of the left knee show no evidence of an acute fracture or dislocation. There is no evidence of bone destruction, erosion or periosteal reaction. Tiny patellar osteophytes are visualized. No significant suprapatellar effusion is visualized. There are no radiopaque foreign bodies. IMPRESSION: 1. No evidence of an acute bone process. Report Dictated on Authenticated by: Dennis Morales On: 05/06/2018 23:58 Read by: DENNIS MORALES MD Date: 05/06/2018 23:58 [facility] XR Spine Lumbar Sacral 2 -3 viewson 05-07-2018 XR Spine Lumbar Sacral 2 -3 views Indication: Back pain after fall. Frontal and lateral views of the lumbar spine were performed. Six lumbar type vertebral bodies are visualized. There is a mild levoconvex scoliosis of the lumbar spine. The lumbar vertebral heights are maintained. There is no evidence of an acute compression fracture of the lumbar spine. There is multilevel disc space narrowing with vacuum disc phenomenon and anterior endplate osteophytes. The lumbar vertebral alignments are maintained. Degenerative changes of the facet joints are visualized. The pedicles are intact. IMPRESSION: 1. No evidence of an acute fracture of the lumbar spine. 2. Multilevel degenerative changes. Scoliosis. Report Dictated on Authenticated by: Dennis Morales On: 05/07/2018 00:07 Read by: DENNIS MORALES MD Date: 05/07/2018 00:07 [facility] ALLIED HEALTHon 03-15-2018 ALLIED HEALTH HNO ID: [id number] Author: Tereso Donnelly) Ilya, Student Service: Spiritual Care Author Type: Powder Blender Type: Allied Health Filed: 03/15/2018 12:03 PM Note Text: SPIRITUALCARE Spiritual Care Visit- Brief Note Name: Cinthya Castillo Date: March 15, 2018 Notes: Scrubs delivered. Powder Blender Signature: Chaplain Panchito Manager Project To contact the Spiritual Care Department: Please call [phone] or Page the On-Call Powder Blender at pager [phone] Thank you for the opportunity to be of service. This is an electronically created document. IF PRINTED, PLEASE DO NOT REMOVE FROM THE CHART OR MODIFY PRINTED COPY. Normal [facility] Basic Panelon 03-15-2018 Creatinine mass conc 1.14 mg/dL High 0.51-0.95 [facility] Comment on above: Performed By: #### P 14 #### [facility] 1 [place] [address] Anion gap molar conc 11 mmol/L Normal 8-16 [facility] Comment on above: Performed By: #### P 14 #### [facility] 1 [place] [address] Calcium mass conc 8.8 mg/dL Normal 8.5-10.1 [facility] Comment on above: Performed By: #### P 14 #### [place] [address] CO2 molar conc 27 mmol/L Normal 21-32 [facility] Comment on above: Performed By: #### P 14 #### [facility] 1 [place], [place] [address] Glucose mass conc 99 mg/dL Normal 70-99 [facility] Comment on above: Performed By: #### P 14 #### [facility] 1 [place], [place] [address] Urea nitrogen mass conc 28 mg/dL High 7-18 [facility] Comment on above: Performed By: #### P 14 #### [facility] 1 [place], [place] [address] Chloride molar conc 108 mmol/L High 98-107 [facility] Comment on above: Performed By: #### P 14 #### [facility] 1 [place], [place] [address] Potassium molar conc 4.1 mmol/L Normal 3.5-5.1 [facility] Comment on above: Performed By: #### P 14 #### [facility] 1 [place] [address] Sodium molar conc 142 mmol/L Normal 136-145 [facility] Comment on above: Performed By: #### P 14 #### [facility] 1 [place] [address] CASE MANAGEMon 03-15-2018 CASE MANAGEM HNO ID: [id number] Author: Addis (Rn) SUNDEEP Tran Service: Care Management Author Type: Registered Nurse Type: Care Mgt Progress Note Filed: 03/15/2018 9:16 AM Note Text: CARE MANAGEMENT DISCHARGE NOTE SERVICE DATE: 03/15/2018 SERVICE TIME: 9:11 AM LOS: 14 days Admission Date: 03/01/2018 DISCHARGE ARRANGEMENT (list agency and phone number) custodial facility: Was an expedited discharge program used? No Provider: [facility] CAREGIVER ASSESSMENT: Caregiver is ready, willing and able to meet the patient's needs as recommended by the inter-professional team? No Caregiver Needed Patient's transition needs and plan for meeting these needs: [facility] Does the patient have an acute stroke diagnosis, or has the patient had a stroke during this admission? No HANDOFF COMMUNICATION: dc orders sent through ecin TRANSPORTATION ARRANGEMENTS: Mode of Transportation: Ambulette Transportation Agency and Phone #: [facility] ambulance ( [facility] ) [phone] / [phone]. Date of Trip: 03/15/2018 Type of Service: Wheelchair Is Patient Medicaid Pending: No Discussion of financial coverage occurred with Patient . Rn Appeals Location: [facility] Destination: [facility] Financial Care Management Responsibility: None Estimated Charge: n/a Approving Hole Digger Truck Driver: n/a ADDITIONAL CONTACT RESOURCES: n/a Discharge Information Row Name ED to Hosp-Admission (Current) from 03/01/2018 in [place] [address] [facility] Group [facility] Facility Agency [place] [address] Discharge orders completed. Patient will dc to [facility]. Patient will travel via wheelchair ambulette, cold rolling supervisor time is 1030. Patient and RN aware. SIGNATURE: Addis Tran RN PATIENT NAME: Cinthya Castillo DATE: March 15, 2018 TIME: 9:11 AM PAGER/CONTACT #: [phone] [facility] CNDSon 03-15-2018 CNDS HNO ID: [id number] Author: Dez Vicente (Res) MD Eulalia Service: Hospital Medicine Author Type: Resident Type: Discharge Summaries Filed: 03/15/2018 1:45 PM Note Text: Attestation signed by Peter Delarosa at 03/16/2018 8:03 AM Teaching Attending Note: I personally saw and evaluated the patient. I reviewed the resident's note. I agree with the resident's assessment and plan unless otherwise noted. Peter Delarosa MD [facility] Attending March 16, 2018 8:02 AM DISCHARGE SUMMARY PATIENT NAME: Cinthya Castillo ADMISSION DATE: 03/01/2018 DISCHARGE DATE: 03/15/2018 ATTENDING PHYSICIAN: ePter Delarosa Code Status: Not on file Highest Readmission Risk Score: 27 The 30 day readmissions risk score is derived from an internally validated risk model which evaluates patient level characteristics, utilization history, medication orders and lab results up until the day of discharge. Patients with a score of 40 or above are considered highest risk for readmission. Specific patient level drivers will be listed at the bottom of the summary. REASON FOR HOSPITALIZATION: DKA DIAGNOSIS: Principal Problem (Resolved): Diabetes mellitus type 2 with ketoacidosis, uncontrolled (HCC) Active Problems: Cellulitis of right groin Abscess, gluteal, right HTN (hypertension) Degenerative joint disease Leukocytosis Obesity, Class III, BMI >= 40 Resolved Problems: UTI (urinary tract infection) Diabetic ketoacidosis (HCC) Microscopic hematuria OPERATIONS DURING HOSPITALIZATION: None PROCEDURES DURING HOSPITALIZATION: EKG HOSPITAL COURSE: This is a 57-year-old female with past history of hypertension, diabetes, developmental delay, presented after a fall and was noted to be in DKA and found to have a UTI. ?She was treated with insulin and IV fluids with resolution of DKA. ?His HbA1c found to be 14.7. ?During her hospital course, she was found to have right groin cellulitis and right gluteal abscess, treated with antibiotics, symptoms improving. ?She will be discharged with insulin 70/30 NPH/regular 90 units with breakfast and 75 units with dinner. ?She will also be discharged with doxycycline and ciprofloxacin, end date March 18. ?She will need to follow up with her PCP for diabetes management. Transitions of Care Critical Issues: NA LABS AND PROCEDURES PENDING AT DISCHARGE: No pending results. CONSULTING TEAMS DURING HOSPITALIZATION: Endocrinology, Intensive care . PATIENT CONDITION AT DISCHARGE: Stable DISCHARGE DISPOSITION: Group Home Facility Discharge Physical Exam: VITAL SIGNS: BP 133/74 Pulse 102 Temp 37.2 ?C (99 ?F) (Oral) Resp 18 Ht 167.6 cm (5' 6") Wt 117.5 kg (259 lb) SpO2 95% BMI 41.80 kg/m? GENERAL: Alert, no distress, cooperative LUNGS: Lungs clear to auscultation, Good diaphragmatic excursion CARDIAC: Normal S1 and S2; no rubs, murmurs, or gallops ABDOMEN: Abdomen soft, non-tender, BS normal, No masses or organomegaly EXTREMITIES: Extremities normal, no deformities, edema, clubbing or skin discoloration. Good capillary refill., No ulcers NEURO: Grossly normal cognition, motor function, and cranial nerves III-XII, Gait normal. Reflexes normal and symmetric. Sensation grossly intact, Cranial nerves II-XII intact PULSES: 2+ radial GROIN: erythematous skin without ulcer or fluctuant mass. GLUTEAL: small palpable mass with overlying erythema, no ulcer. DIET: Low Salt Low Cholesterol Low carb diet: 3-5 carbs/meal, <200 mg cholesterol, low saturated fat ACTIVITY: Resume pre-hospital activity WOUND/SURGICAL SITE CARE: None ALLERGIES Allergen Reactions - Penicillin Unknown Pt unaware of reaction. Tolerated cephalexin 02/2018 DISCHARGE MEDICATION: Current Discharge Medication List START taking these medications atorvastatin (LIPITOR) 40 mg Take 40 mg by mouth daily at bedtime. ciprofloxacin HCl (CIPRO) 500 mg Take 500 mg by mouth every 12 hours. Qty: 7 tablet Refills: 0 doxycycline hyclate (VIBRAMYCIN) 100 mg Take 100 mg by mouth twice daily. !! insulin 70/30 NPH/regular units/mL (HumuLIN 70/30, NovoLIN 70/30) 75 Units Inject 75 Units subcutaneously daily with dinner. !! insulin 70/30 NPH/regular units/mL (HumuLIN 70/30, NovoLIN 70/30) 90 Units Inject 90 Units subcutaneously daily with breakfast. !! - Potential duplicate medications found. Please discuss with provider. CONTINUE these medications which have CHANGED amLODIPine (NORVASC) 10 mg Take 10 mg by mouth once daily. lisinopril (ZESTRIL, PRINIVIL) 20 mg Take 20 mg by mouth once daily. Qty: 30 tablet Refills: 0 metFORMIN (GLUCOPHAGE) 500 mg Take 500 mg by mouth twice daily with meals. Qty: 60 tablet Refills: 0 metoprolol tartrate (short acting) (LOPRESSOR) 12.5 mg Take 12.5 mg by mouth every 12 hours. CONTINUE these medications which have NOT CHANGED aspirin 81 mg Take 81 mg by mouth once daily. fenofibrate (LOFIBRA) 67 mg Take 67 mg by mouth daily at bedtime. gabapentin (NEURONTIN) 600 mg Take 600 mg by mouth three times daily. montelukast (SINGULAIR) 10 mg Take 10 mg by mouth daily at bedtime. STOP taking these medications alogliptin (NESINA) 1 tablet Comments: Reason for Stopping: diclofenac (EC) (VOLTAREN) 75 mg Comments: Reason for Stopping: glipiZIDE (GLUCOTROL) 10 mg Comments: Reason for Stopping: hydroCHLOROthiazide (HYDRODIURIL, ESIDRIX) 50 mg Comments: Reason for Stopping: insulin glargine (LANTUS SOLOSTAR, BASAGLAR KWIKPEN) 110 Units Comments: Reason for Stopping: nystatin (MYCOSTATIN) cream Comments: Reason for Stopping: simvastatin (ZOCOR) 20 mg Comments: Reason for Stopping: FUTURE APPOINTMENTS: Follow Up with PCP: Kristel Nunes MD Discharge Information Row Name ED to Hosp-Admission (Current) from 03/01/[address] Group Home [facility] Agency [address], [facility] [address] The patient's risk for 30-day readmission is determined using the following contributing factors: Pt variables contributing to increased readmission risk: 28 Most Recent BUN Result 20 Active Medication Orders 9.3 First Resulted Calcium During Admission 1 Previous ED Visit (6 mos.)? 1 Number of Previous ED Visits (6 mos.) 1 Insurance - Medicaid 1 Active Anticoagulant SIGNATURE: Dez Vicente Cha, MD PAGER/CONTACT #: Pager: [phone] DATE: March 14, 2018 TIME: 5:02 PM Normal [facility] CONSULT PROGon 03-15-2018 Protein mass conc HNO ID: [id number] Author: Savana Souza Service: Endocrinology Author Type: Physician Type: Consult Progress Note Filed: 03/15/2018 9:25 AM Note Text: ENDOCRINOLOGY PROGRESS NOTE PATIENT NAME: Cinthya Castillo SERVICE DATE: 03/15/18 SUBJECTIVE Interval History: Fastin BSG this AM 111. Component Latest Ref Rng AND Units 03/15/2018 GLUCOSE METER 70 - 99 mg/dL 111 (H) CURRENT MEDICATION: Current hospital medications: acetaminophen 650 mg tab(s) (TYLENOL) 650 mg ORAL q 6 H PRN amLODIPine 10 mg tab(s) (NORVASC) 10 mg ORAL DAILY aspirin 81 mg chewable tab(s) 81 mg ORAL DAILY atorvastatin 40 mg tab(s) (LIPITOR) 40 mg ORAL AT BEDTIME ciprofloxacin HCl 500 mg tab(s) (CIPRO) 500 mg ORAL q 12 H dextrose 40 % 15 g 15 g ORAL PRN dextrose 50% in water 25 mL syringe 12.5 g INTRAVENOUS PRN doxycycline hyclate 100 mg cap(s) (VIBRAMYCIN) 100 mg ORAL q 12 h 7am/7pm enoxaparin 40 mg injection (LOVENOX) 40 mg SUBCUTANEOUS q 12 HR gabapentin 600 mg cap(s) (NEURONTIN) 600 mg ORAL TID glucagon 1 mg injection (GLUCAGEN) 1 mg INTRAMUSCULAR PRN insulin 70/30 NPH/regular units/mL 70 Units inj pen (mixed intermediate and short acting) (HumuLIN 70/30, NovoLIN 70/30) 70 Units SUBCUTANEOUS DAILY wDINNER insulin 70/30 NPH/regular units/mL 90 Units inj pen (mixed intermediate and short acting) (HumuLIN 70/30, NovoLIN 70/30) 90 Units SUBCUTANEOUS DAILY WITH BREAKFAST insulin lispro pen (rapid acting) (HumaLOG KWIKPEN) SUBCUTANEOUS AT BEDTIME insulin lispro pen (rapid acting) (HumaLOG KWIKPEN) SUBCUTANEOUS w MEALS lisinopril 20 mg tab(s) (ZESTRIL, PRINIVIL) 20 mg ORAL DAILY metFORMIN 500 mg tab(s) (GLUCOPHAGE) 500 mg ORAL BID w MEALS metoprolol tartrate (short acting) 12.5 mg tab(s) (LOPRESSOR) 12.5 mg ORAL q 12 H montelukast 10 mg tab(s) (SINGULAIR) 10 mg ORAL AT BEDTIME pill splitter (patient-specific) 1 Each Miscell. (Med.Supl.;Non-Drugs) PRN white petrolatum-mineral oil cream (EUCERIN) TOPICAL DAILY CURRENT ALLERGIES: ALLERGIES Allergen Reactions - Penicillin Unknown Pt unaware of reaction. Tolerated cephalexin 02/2018 REVIEW OF SYSTEMS: SYSTEMIC: no fever or chills OBJECTIVE PHYSICAL EXAM: BP 122/80 Pulse 96 Temp 37 ?C (98.6 ?F) (Oral) Resp 18 Ht 167.6 cm (5' 6") Wt 117.5 kg (259 lb) SpO2 92% BMI 41.80 kg/m? GENERAL: awake and alert DATA: Diagnostic tests reviewed for today's visit: Component Latest Ref Rng AND Units 03/12/2018 03/12/2018 03/12/2018 03/12/2018 7:28 AM 11:07 AM 4:44 PM 8:51 PM GLUCOSE METER 70 - 99 mg/dL 121 (H) 215 (H) 129 (H) 132 (H) Component Latest Ref Rng AND Units 03/13/2018 03/13/2018 03/13/2018 03/13/2018 03/14/2018 7:12 AM 11:18 AM 4:34 PM 8:53 PM GLUCOSE METER 70 - 99 mg/dL 162 (H) 303 (H) 193 (H) 182 (H) 162 (H) ASSESSMENT AND PLAN 57 year old with PMH of HTN, Type 2 DM and developmental delay who was admitted after having a fall and found to have a UTI. Endocrinology consulted for management of: Uncontrolled Type 2 DM - Continue insulin 70/30 90 units in the morning with breakfast - Decrease insulin 70/30 to 70 units with dinner - Continue ISS #2 AC and #1 HS - Continue Metformin 1,000 mg BID Savana Souza MD Normal [facility] Glucose Meteron 03-15-2018 Glucose mass conc 111 mg/dL High 70-99 [facility] Comment on above: Result Comment: RN N OTIFIED Performed By: #### G LMET #### [facility] 1 [place] [address] Hemogram/Diffon 03-15-2018 Abs Immature Grans 0.27 thou/cmm High 0.00-0.05 [facility] Comment on above: Performed By: #### P 14 #### [facility] 1 [place] [address] Abs. Baso 0.06 thou/cmm Normal 0.01-0.08 [facility] Comment on above: Result Comment: Smea r scanned; tech agrees with automated differential Performed By: #### P 14 #### [facility] 1 [place] [address] Abs. [place] 0.90 thou/cmm High 0.27-0.70 [facility] Comment on above: Performed By: #### P 14 #### [facility] [address] [place] [address] Abs. Neut (ANC) 9.19 thou/cmm High 1.56-6.13 [facility] Comment on above: Performed By: #### P 14 #### [facility] 1 [place] [address] Basophils/100 WBC (Bld) 0.5 % Normal [facility] Comment on above: Performed By: #### P 14 #### [facility] [address] [place] [address] Eosinophils #/vol (Bld) 0.56 thou/cmm High 0.00-0.31 [facility] Comment on above: Performed By: #### P 14 #### [facility] 1 [place] [address] Eosinophils/100 WBC (Bld) 4.4 % Normal [facility] Comment on above: Performed By: #### P 14 #### [facility] [address] [place] [address] Immature Grans 2.10 % Normal [facility] Comment on above: Performed By: #### P 14 #### [facility] [address] [place], [place] [address] Lymphocytes #/vol (Bld) 1.65 thou/cmm Normal 1.18-3.74 [facility] Comment on above: Performed By: #### P 14 #### [facility] 1 [place], [place] [address] Lymphocytes/100 WBC (Bld) 13.1 % Normal [facility] Comment on above: Performed By: #### P 14 #### [facility] 1 [place], [place] [address] Monocytes/100 WBC (Bld) 7.1 % Normal [facility] Comment on above: Performed By: #### P 14 #### [facility] 1 [place] [address] Seg Neutrophil 72.8 % Normal [facility] Comment on above: Performed By: #### P 14 #### [facility] 1 [place] [address] Erythrocyte distribution width Ratio (RBC) 12.0 % Normal 11.7-14.4 [facility] Comment on above: Performed By: #### P 14 #### [facility] [address] [place] [address] Hematocrit Volume Fraction (Bld) 32.4 % Low 34.1-44.9 [facility] Comment on above: Performed By: #### P 14 #### [facility] [address] [place] [address] Hemoglobin mass conc (Bld) 10.3 g/dL Low 11.2-15.7 [facility] Comment on above: Performed By: #### P 14 #### [facility] 1 [place], [place] [address] MCH Entitic mass (RBC) 30.4 pg Normal 25.6-32.2 [facility] Comment on above: Performed By: #### P 14 #### [facility] 1 [place] [address] MCHC mass conc (RBC) 31.8 % Normal 31.6-34.8 [facility] Comment on above: Performed By: #### P 14 #### [facility] [address] [place] [address] MCV Entitic volume (RBC) 95.6 fL High 79.4-94.8 [facility] Comment on above: Performed By: #### P 14 #### [facility] 1 [place] [address] Platelet mean volume Entitic volume (Bld) 9.5 fL Normal 9.4-12.3 [facility] Comment on above: Performed By: #### P 14 #### [facility] 1 [place] [address] Platelets #/vol (Bld) 446 thou/cmm High 182-369 [facility] Comment on above: Performed By: #### P 14 #### [place] [address] RBC #/vol (Bld) 3.39 mil/cmm Low 3.93-5.22 [facility] Comment on above: Performed By: #### P 14 #### [place] [address] RDW SD 42.3 fl Normal 36.4-46.3 [facility] Comment on above: Performed By: #### P 14 #### [place] [address] WBC #/vol (Bld) 12.62 thou/cmm High 3.98-10.04 [facility] Comment on above: Performed By: #### P 14 #### [place] [address] MDRD GFRon 03-15-2018 GFR/1.73 sq M predicted among non-blacks MDRD vol rate/area (S/P/Bld) 49.26 mL/min/{1.73_m2} Normal >60mL/min/1. 73m2 [facility] Comment on above: Result Comment: If t he patient is , multiply the result by 1.210. Performed By: #### G FR #### [place] [address] NURSING PROGon 03-15-2018 Protein mass conc HNO ID: [id number] Author: Fabby (Rn) SUNDEEP Powell Service: (none) Author Type: Registered Nurse Type: Nursing Progress Note Filed: 03/15/2018 9:53 AM Note Text: Called to give report to jeovany braun; report given to Nikki Cerda [facility] PROGRESSon 03-15-2018 Protein mass conc HNO ID: [id number] Author: Dez Vicente (Mitchell Esteban MD Service: Hospital Medicine Author Type: Resident Type: Progress Notes Filed: 03/15/2018 9:27 AM Note Text: Patient was discharged yesterday, but was unable to leave the hospital due to logistic issues. This morning patient appear well, alert and oriented. She reports no new symptoms, and decreased pain in her right groin. No pain at the right gluteal abscess. physical exams unchanged from yesterday. She will still be discharged with antibiotics. Spoke to transitional care nurse, she'll beleaving the hospital at 10:30 AM. Normal [facility] Basic Panelon 03-14-2018 Creatinine mass conc 1.10 mg/dL High 0.51-0.95 [facility] Comment on above: Performed By: #### P 14 #### [facility] [address] [place] [address] Anion gap molar conc 11 mmol/L Normal 8-16 [facility] Comment on above: Performed By: #### P 14 #### [place] [address] CO2 molar conc 26 mmol/L Normal 21-32 [facility] Comment on above: Performed By: #### P 14 #### [facility] [address] [place] [address] Glucose mass conc 145 mg/dL High 70-99 [facility] Comment on above: Performed By: #### P 14 #### [facility] [address] [place] [address] Urea nitrogen mass conc 28 mg/dL High 7-18 [facility] Comment on above: Performed By: #### P 14 #### [facility] [address] [place] [address] Calcium mass conc 8.8 mg/dL Normal 8.5-10.1 [facility] Comment on above: Performed By: #### P 14 #### [address] [place], [place] [address] Chloride molar conc 107 mmol/L Normal 98-107 [facility] Comment on above: Performed By: #### P 14 #### [facility] [facility] [address] [id number] Potassium molar conc 4.0 mmol/L Normal 3.5-5.1 [facility] Comment on above: Performed By: #### P 14 #### [facility] [address] [address] Sodium molar conc 140 mmol/L Normal 136-145 [facility] Comment on above: Performed By: #### P 14 #### [facility] [address] [address] CASE MANAGEMon 03-14-2018 CASE MANAGEM HNO ID: [id number] Author: Radha (Rn) SUNDEEP Thomas Service: Care Management Author Type: Registered Nurse Type: Care Mgt Progress Note Filed: 03/14/2018 3:37 PM Note Text: CARE MANAGEMENT DISCHARGE NOTE SERVICE DATE: 03/14/2018 SERVICE TIME: 3:33 PM LOS: 13 days Admission Date: 03/01/2018 DISCHARGE ARRANGEMENT (list agency and phone number) custodial facility: Was an expedited discharge program used? No Provider: [facility] CAREGIVER ASSESSMENT: Caregiver is ready, willing and able to meet the patient's needs as recommended by the inter-professional team? d/c to SNF Patient's transition needs and plan for meeting these needs: d/c to SNF Does the patient have an acute stroke diagnosis, or has the patient had a stroke during this admission? No HANDOFF COMMUNICATION: Pricing Analyst: left with Clifton Murray [employer] Hand: left with Karen Tello CM nurse to call report to [facility] TRANSPORTATION ARRANGEMENTS: wheelchair through [place] ADDITIONAL CONTACT RESOURCES: n//a Discharge Information Row Name ED to Hosp-Admission (Current) from 03/01/2018 in [place] [address] [facility] Agency [place] [id number] Patient d/c today, orders complete. Updated patient at bedside. RN and Copy Chief notified of time. Community Clifton Murray notified of d/c today. No other needs identified. Patient d/c today. SIGNATURE: Radha Thomas RN PATIENT NAME: Cinthya Castillo DATE: March 14, 2018 TIME: 3:33 PM PAGER/CONTACT #: [phone] [facility] CASE MANAGEM HNO ID: [id number] Author: Radha PattenRn) SUNDEEP Thomas Service: Care Management Author Type: Registered Nurse Type: Care Mgt Progress Note Filed: 03/14/2018 1:41 PM Note Text: CARE MANAGEMENT PROGRESS NOTE SERVICE DATE: 03/14/2018 SERVICE TIME: 1:34 PM LOS: 13 days Needs Prior to Discharge: Ready for Discharge;[place] Dajuan Gil, stating we can set up transport for d/c today. Spoke to MD Dr. Esteban regarding auth to d/c. Stated he would d/c patient today. Left VM with Clifton Murray, care-home care giver/sales assistant and left VM with Karen Morales at [phone], Elisha AGUIRRE to follow up with patient. Will await d/c orders. SIGNATURE: Radha Thomas RN PATIENT NAME: Cinthya Castillo DATE: March 14, 2018 TIME: 1:33 PM PAGER/CONTACT #: [phone] [facility] CASE MANAGEM HNO ID: [id number] Author: Radha PattenRnGloria Thomas RN Service: Care Management Author Type: Registered Nurse Type: Care Mgt Progress Note Filed: 03/14/2018 1:14 PM Note Text: CARE MANAGEMENT PROGRESS NOTE SERVICE DATE: 03/14/2018 SERVICE TIME: 1:09 PM LOS: 13 days Auth obtained for d/c today. However, [facility] liaison is stating he cannot accept this patient if elisha will only approve 3 days for teaching. Provided chalo Courtney with elisha sales representative wire rope phone number to discuss his concerns. Will continue to follow. SIGNATURE: Radha Thomas RN PATIENT NAME: Cinthya Castillo DATE: March 14, 2018 TIME: 1:09 PM PAGER/CONTACT #: [phone] [facility] CASE MANAGEM HNO ID: [id number] Author: Radha (Rn) SUNDEEP Thomas Service: Care Management Author Type: Registered Nurse Type: Care Mgt Progress Note Filed: 03/14/2018 11:34 AM Note Text: CARE MANAGEMENT PROGRESS NOTE SERVICE DATE: 03/14/2018 SERVICE TIME: .now LOS: 13 days Needs Prior to Discharge: Insurance Authorization;Discharg e Transportation Awaiting pre-cert for d/c to [facility]. Started today. SIGNATURE: Radha Thomas RN PATIENT NAME: Cinthya Castillo DATE: March 14, 2018 TIME: 11:33 AM PAGER/CONTACT #: [phone] [facility] CONSULT PROGon 03-14-2018 Protein mass conc HNO ID: [id number] Author: Savana Souza Service: Endocrinology Author Type: Physician Type: Consult Progress Note Filed: 03/14/2018 9:14 AM Note Text: ENDOCRINOLOGY PROGRESS NOTE PATIENT NAME: Cinthya Castillo SERVICE DATE: 03/14/18 SUBJECTIVE Interval History: Noticed pattern of hyperglycemia pre-lunch. CURRENT MEDICATION: Current hospital medications: acetaminophen 650 mg tab(s) (TYLENOL) 650 mg ORAL q 6 H PRN amLODIPine 10 mg tab(s) (NORVASC) 10 mg ORAL DAILY aspirin 81 mg chewable tab(s) 81 mg ORAL DAILY atorvastatin 40 mg tab(s) (LIPITOR) 40 mg ORAL AT BEDTIME ciprofloxacin HCl 500 mg tab(s) (CIPRO) 500 mg ORAL q 12 H dextrose 40 % 15 g 15 g ORAL PRN dextrose 50% in water 25 mL syringe 12.5 g INTRAVENOUS PRN doxycycline hyclate 100 mg cap(s) (VIBRAMYCIN) 100 mg ORAL q 12 h 7am/7pm enoxaparin 40 mg injection (LOVENOX) 40 mg SUBCUTANEOUS q 12 HR gabapentin 600 mg cap(s) (NEURONTIN) 600 mg ORAL TID glucagon 1 mg injection (GLUCAGEN) 1 mg INTRAMUSCULAR PRN insulin 70/30 NPH/regular units/mL 75 Units inj pen (mixed intermediate and short acting) (HumuLIN 70/30, NovoLIN 70/30) 75 Units SUBCUTANEOUS DAILY wDINNER insulin 70/30 NPH/regular units/mL 85 Units inj pen (mixed intermediate and short acting) (HumuLIN 70/30, NovoLIN 70/30) 85 Units SUBCUTANEOUS DAILY WITH BREAKFAST insulin lispro pen (rapid acting) (HumaLOG KWIKPEN) SUBCUTANEOUS AT BEDTIME insulin lispro pen (rapid acting) (HumaLOG KWIKPEN) SUBCUTANEOUS w MEALS lisinopril 20 mg tab(s) (ZESTRIL, PRINIVIL) 20 mg ORAL DAILY metFORMIN 500 mg tab(s) (GLUCOPHAGE) 500 mg ORAL BID w MEALS metoprolol tartrate (short acting) 12.5 mg tab(s) (LOPRESSOR) 12.5 mg ORAL q 12 H montelukast 10 mg tab(s) (SINGULAIR) 10 mg ORAL AT BEDTIME pill splitter (patient-specific) 1 Each Miscell. (Med.Supl.;Non-Drugs) PRN white petrolatum-mineral oil cream (EUCERIN) TOPICAL DAILY CURRENT ALLERGIES: ALLERGIES Allergen Reactions - Penicillin Unknown Pt unaware of reaction. Tolerated cephalexin 02/2018 REVIEW OF SYSTEMS: SYSTEMIC: no nausea or vomiting OBJECTIVE PHYSICAL EXAM: BP 133/74 Pulse 102 Temp 37.2 ?C (99 ?F) (Oral) Resp 18 Ht 167.6 cm (5' 6") Wt 117.5 kg (259 lb) SpO2 95% BMI 41.80 kg/m? GENERAL: Awake and alert DATA: Diagnostic tests reviewed for today's visit: Component Latest Ref Rng AND Units 03/12/2018 03/12/2018 03/12/2018 03/12/2018 7:28 AM 11:07 AM 4:44 PM 8:51 PM GLUCOSE METER 70 - 99 mg/dL 121 (H) 215 (H) 129 (H) 132 (H) Component Latest Ref Rng AND Units 03/13/2018 03/13/2018 03/13/2018 03/13/2018 03/14/2018 7:12 AM 11:18 AM 4:34 PM 8:53 PM GLUCOSE METER 70 - 99 mg/dL 162 (H) 303 (H) 193 (H) 182 (H) 162 (H) ASSESSMENT AND PLAN 57 year old with PMH of HTN, Type 2 DM and developmental delay who was admitted after having a fall and found to have a UTI. Endocrinology consulted for management of: Uncontrolled Type 2 DM - Increase insulin 70/30 to 90 units in the morning with breakfast - Continue insulin 70/30 75 units with dinner - Continue ISS #2 AC and #1 HS - Continue Metformin 1,000 mg BID Savana Souza MD Normal [facility] Hemogram/Diffon 03-14-2018 Abs Immature Grans 0.44 thou/cmm High 0.00-0.05 [facility] Comment on above: Performed By: #### P 14 #### [facility] [address] [address] Abs. Baso 0.08 thou/cmm Normal 0.01-0.08 [facility] Comment on above: Result Comment: Smea r scanned; tech agrees with automated differential Performed By: #### P 14 #### [facility] [address] [address] Abs. [place]hesne 0.90 thou/cmm High 0.27-0.70 [facility] Comment on above: Performed By: #### P 14 #### [place] [address] Abs. Neut (ANC) 8.98 thou/cmm High 1.56-6.13 [facility] Comment on above: Performed By: #### P 14 #### [place] [address] Basophils/100 WBC (Bld) 0.6 % Normal [facility] Comment on above: Performed By: #### P 14 #### [place] [address] Eosinophils #/vol (Bld) 0.62 thou/cmm High 0.00-0.31 [facility] Comment on above: Performed By: #### P 14 #### [facility] [address] [address] Eosinophils/100 WBC (Bld) 4.8 % Normal [facility] Comment on above: Performed By: #### P 14 #### [facility] [address] [address] Immature Grans 3.40 % Normal [facility] Comment on above: Performed By: #### P 14 #### [place] [address] Lymphocytes #/vol (Bld) 1.99 thou/cmm Normal 1.18-3.74 [facility] Comment on above: Performed By: #### P 14 #### [facility] [address] [place], [place] [address] Lymphocytes/100 WBC (Bld) 15.3 % Normal [facility] Comment on above: Performed By: #### P 14 #### [facility] [address] [address] Monocytes/100 WBC (Bld) 6.9 % Normal [facility] Comment on above: Performed By: #### P 14 #### [facility] [address] [address] Seg Neutrophil 69.0 % Normal [facility] Comment on above: Performed By: #### P 14 #### [facility] [address] [address] Erythrocyte distribution width Ratio (RBC) 12.0 % Normal 11.7-14.4 [facility] Comment on above: Performed By: #### P 14 #### [facility] [address] [address] Hematocrit Volume Fraction (Bld) 31.8 % Low 34.1-44.9 [facility] Comment on above: Performed By: #### P 14 #### [facility] [address] [address] Hemoglobin mass conc (Bld) 10.2 g/dL Low 11.2-15.7 [facility] Comment on above: Performed By: #### P 14 #### [facility] [address] [address] MCH Entitic mass (RBC) 30.9 pg Normal 25.6-32.2 [facility] Comment on above: Performed By: #### P 14 #### [facility] [address] [address] MCHC mass conc (RBC) 32.1 % Normal 31.6-34.8 [facility] Comment on above: Performed By: #### P 14 #### [facility] [address] [address] MCV Entitic volume (RBC) 96.4 fL High 79.4-94.8 [facility] Comment on above: Performed By: #### P 14 #### [facility] [address] [address] Platelet mean volume Entitic volume (Bld) 9.8 fL Normal 9.4-12.3 [facility] Comment on above: Performed By: #### P 14 #### [facility] [address] [address] Platelets #/vol (Bld) 466 thou/cmm High 182-369 A [facility] Comment on above: Performed By: #### P 14 #### [facility] [address] [address] RBC #/vol (Bld) 3.30 mil/cmm Low 3.93-5.22 [facility] Comment on above: Performed By: #### P 14 #### [facility] [address] [address] RDW SD 42.4 fl Normal 36.4-46.3 [facility] Comment on above: Performed By: #### P 14 #### [facility] [address] [address] WBC #/vol (Bld) 13.01 thou/cmm High 3.98-10.04 [facility] Comment on above: Performed By: #### P 14 #### [facility] [address] [address] PLAN OF CAREon 03-14-2018 PLAN OF CARE HNO ID: [id number] Author: Gabo Jackson Service: Pharmacy Author Type: Pharmacist Type: Plan of Care Filed: 03/14/2018 4:50 PM Note Text: DISCHARGE MEDICATION REVIEW BY PHARMACY Patient Name: Cinthya Castillo Account #: Data Unavailable Admission Date: 03/01/2018 Date of Contact: March 14, 2018 Time of Contact: 4:48 PM Medication list was reviewed by a Pharmacist for drug interactions or drug related problems:Yes Below is a summary of pharmacist recommendations discussed with LIP: The following medications were discussed with LIP for further review: Reviewed all medication changes from admission. Simvastatin had been changed to atorvastatin at admission. Clarified with resident that they will continue atorvastatin at discharge. Med list updated by resident who also agreed to call the floor and make sure the med change is updated I have discussed the recommendations and the medication orders have been addressed by LIP. Gabo Jackson, PharmD March 14, 2018 4:48 PM Pager: [phone] 03/14/2018 4:48 PM Medication List START taking these medications atorvastatin 40 mg tablet Commonly known as: LIPITOR Take 1 tablet by mouth daily at bedtime. ciprofloxacin HCl 500 mg tablet Commonly known as: CIPRO Take 1 tablet by mouth every 12 hours for 7 doses. doxycycline hyclate 100 mg capsule Commonly known as: VIBRAMYCIN Take 1 capsule by mouth twice daily. * insulin 70/30 NPH/regular units/mL 100 unit/mL (70-30) Inpn Commonly known as: HumuLIN 70/30, NovoLIN 70/30 Inject 75 Units subcutaneously daily with dinner. * insulin 70/30 NPH/regular units/mL 100 unit/mL (70-30) Inpn Commonly known as: HumuLIN 70/30, NovoLIN 70/30 Inject 90 Units subcutaneously daily with breakfast. Start taking on: 03/15/2018 * This list has 2 medication(s) that are the same as other medications prescribed for you. Read the directions carefully, and ask your doctor or other care provider to review them with you. CHANGE how you take these medications amLODIPine 10 mg tablet Commonly known as: NORVASC Take 1 tablet by mouth once daily. What changed: ? medication strength ? how much to take lisinopril 20 mg tablet Commonly known as: ZESTRIL, PRINIVIL Take 1 tablet by mouth once daily. What changed: ? medication strength ? how much to take metFORMIN 500 mg tablet Commonly known as: GLUCOPHAGE Take 1 tablet by mouth twice daily with meals. What changed: ? medication strength ? how much to take metoprolol tartrate (short acting) 25 mg tablet Commonly known as: LOPRESSOR Take 0.5 tablets by mouth every 12 hours. What changed: ? medication strength ? how much to take ? when to take this CONTINUE taking these medications aspirin 81 mg chewable tablet fenofibrate 67 mg capsule Commonly known as: LOFIBRA gabapentin 600 mg tablet Commonly known as: NEURONTIN montelukast 10 mg tablet Commonly known as: SINGULAIR STOP taking these medications alogliptin 12.5 mg Tab Commonly known as: NESINA diclofenac (EC) 75 mg EC tablet Commonly known as: VOLTAREN glipiZIDE 10 mg tablet Commonly known as: GLUCOTROL hydroCHLOROthiazide 50 mg tablet Commonly known as: HYDRODIURIL, ESIDRIX insulin glargine 100 unit/mL (3 mL) Inpn Commonly known as: LANTUS SOLOSTAR, BASAGLAR KWIKPEN nystatin cream Commonly known as: MYCOSTATIN simvastatin 20 mg tablet Commonly known as: ZOCOR Where to Get Your Medications Information about where to get these medications is not yet available Ask your nurse or doctor about these medications ? amLODIPine 10 mg tablet ? atorvastatin 40 mg tablet ? ciprofloxacin HCl 500 mg tablet ? doxycycline hyclate 100 mg capsule ? insulin 70/30 NPH/regular units/mL 100 unit/mL (70-30) Inpn ? insulin 70/30 NPH/regular units/mL 100 unit/mL (70-30) Inpn ? lisinopril 20 mg tablet ? metFORMIN 500 mg tablet ? metoprolol tartrate (short acting) 25 mg tablet [facility] PLAN OF CARE O ID: [id number] Author: Laura Harvey (Pharmacist) Service: Pharmacy Author Type: Pharmacist Type: Plan of Care Filed: 03/14/2018 4:17 PM Note Text: DISCHARGE MEDICATION REVIEW BY PHARMACY Patient Name: Cinthya Castillo Account #: Data Unavailable Admission Date: 03/01/2018 Date of Contact: March 14, 2018 Time of Contact: 4:13 PM Medication list was reviewed by a Pharmacist for drug interactions or drug related problems:Yes Below is a summary of pharmacist recommendations discussed with LIP: No Recommendations at this time from Discharge Medication List. Patient is being discharged to [facility] Many medications were adjusted during admission. Changes to medications [employer] will be continued at [facility]. Course of oral antibiotics also being finish at [facility] (enddate 03/18). LAURA HARVEY, PHARMACIST March 14, 2018 4:13 PM Medication List START taking these medications atorvastatin 40 mg tablet Commonly known as: LIPITOR Take 1 tablet by mouth daily at bedtime. ciprofloxacin HCl 500 mg tablet Commonly known as: CIPRO Take 1 tablet by mouth every 12 hours for 7 doses. doxycycline hyclate 100 mg capsule Commonly known as: VIBRAMYCIN Take 1 capsule by mouth twice daily. * insulin 70/30 NPH/regular units/mL 100 unit/mL (70-30) Inpn Commonly known as: HumuLIN 70/30, NovoLIN 70/30 Inject 75 Units subcutaneously daily with dinner. * insulin 70/30 NPH/regular units/mL 100 unit/mL (70-30) Inpn Commonly known as: HumuLIN 70/30, NovoLIN 70/30 Inject 90 Units subcutaneously daily with breakfast. Start taking on: 03/15/2018 * This list has 2 medication(s) that are the same as other medications prescribed for you. Read the directions carefully, and ask your doctor or other care provider to review them with you. CHANGE how you take these medications amLODIPine 10 mg tablet Commonly known as: NORVASC Take 1 tablet by mouth once daily. What changed: ? medication strength ? how much to take lisinopril 20 mg tablet Commonly known as: ZESTRIL, PRINIVIL Take 1 tablet by mouth once daily. What changed: ? medication strength ? how much to take metFORMIN 500 mg tablet Commonly known as: GLUCOPHAGE Take 1 tablet by mouth twice daily with meals. What changed: ? medication strength ? how much to take metoprolol tartrate (short acting) 25 mg tablet Commonly known as: LOPRESSOR Take 0.5 tablets by mouth every 12 hours. What changed: ? medication strength ? how much to take ? when to take this CONTINUE taking these medications aspirin 81 mg chewable tablet fenofibrate 67 mg capsule Commonly known as: LOFIBRA gabapentin 600 mg tablet Commonly known as: NEURONTIN montelukast 10 mg tablet Commonly known as: SINGULAIR STOP taking these medications alogliptin 12.5 mg Tab Commonly known as: NESINA diclofenac (EC) 75 mg EC tablet Commonly known as: VOLTAREN glipiZIDE 10 mg tablet Commonly known as: GLUCOTROL hydroCHLOROthiazide 50 mg tablet Commonly known as: HYDRODIURIL, ESIDRIX insulin glargine 100 unit/mL (3 mL) Inpn Commonly known as: LANTUS SOLOSTAR BASAGLAR KWIKPEN nystatin cream Commonly known as: MYCOSTATIN simvastatin 20 mg tablet Commonly known as: ZOCOR Where to Get Your Medications Information about where to get these medications is not yet available Ask your nurse or doctor about these medications ? amLODIPine 10 mg tablet ? atorvastatin 40 mg tablet ? ciprofloxacin HCl 500 mg tablet ? doxycycline hyclate 100 mg capsule ? insulin 70/30 NPH/regular units/mL 100 unit/mL (70-30) Inpn ? insulin 70/30 NPH/regular units/mL 100 unit/mL (70-30) Inpn ? lisinopril 20 mg tablet ? metFORMIN 500 mg tablet ? metoprolol tartrate (short acting) 25 mg tablet Normal [facility] PROGRESSon 03-14-2018 Protein mass conc HNO ID: [id number] Author: Peter Delarosa Service: Hospital Medicine Author Type: Physician Type: Progress Notes Filed: 03/14/2018 4:21 PM Note Text: Teaching Attending Note: I personally saw and evaluated the patient. I reviewed Dr Esteban's note. I agree with the resident's assessment and plan unless otherwise noted. 57F DM2 w DKA resolved, R groin/gluteal cellulitis currently on cipro + doxy through 03/17/18, pain same, no fluctuant. OK to d/c to SNF when available. Appreciate Endo insulin regimen input. Peter Delarosa MD [facility] [place] Attending March 14, 2018 4:19 PM Normal [facility] Basic Panelon 03-13-2018 Creatinine mass conc 1.35 mg/dL High 0.51-0.95 [facility] Comment on above: Performed By: #### P 14 #### [place] [address] Anion gap molar conc 11 mmol/L Normal 8-16 [facility] Comment on above: Performed By: #### P 14 #### [place] [address] CO2 molar conc 27 mmol/L Normal 21-32 [facility] Comment on above: Performed By: #### P 14 #### [facility] [address] [place], [place] [address] Glucose mass conc 136 mg/dL High 70-99 [facility] Comment on above: Performed By: #### P 14 #### [facility] [address] [place] [address] Urea nitrogen mass conc 28 mg/dL High 7-18 [facility] Comment on above: Performed By: #### P 14 #### [facility] [address] [place] [address] Calcium mass conc 8.7 mg/dL Normal 8.5-10.1 [facility] Comment on above: Performed By: #### P 14 #### [facility] [address] [place] [address] Chloride molar conc 107 mmol/L Normal 98-107 [facility] Comment on above: Performed By: #### P 14 #### [facility] [address] [place] [address] Potassium molar conc 4.1 mmol/L Normal 3.5-5.1 [facility] Comment on above: Performed By: #### P 14 #### [facility] [address] [place] [address] Sodium molar conc 141 mmol/L Normal 136-145 [facility] Comment on above: Performed By: #### P 14 #### [facility] [address] [place] [address] Hemogram/Diffon 03-13-2018 Abs Immature Grans 0.57 thou/cmm High 0.00-0.05 [facility] Comment on above: Performed By: #### P 14 #### [facility] [address] [place] [address] Abs. Baso 0.08 thou/cmm Normal 0.01-0.08 [facility] Comment on above: Result Comment: Smea r scanned; tech agrees with automated differential Performed By: #### P 14 #### [facility] [address] [place] [address] Abs. Duchesne 1.11 thou/cmm High 0.27-0.70 [facility] Comment on above: Performed By: #### P 14 #### [facility] [address] [place] [address] Abs. Neut (ANC) 7.88 thou/cmm High 1.56-6.13 [facility] Comment on above: Performed By: #### P 14 #### [facility] [address] [place] [address] Basophils/100 WBC (Bld) 0.6 % Normal A [facility] Comment on above: Performed By: #### P 14 #### [facility] [address] [place], [place] [address] Eosinophils #/vol (Bld) 0.60 thou/cmm High 0.00-0.31 [facility] Comment on above: Performed By: #### P 14 #### [facility] [address] [place], [place] [address] Eosinophils/100 WBC (Bld) 4.8 % Normal [facility] Comment on above: Performed By: #### P 14 #### [facility] [address] [place], [place] [address] Immature Grans 4.50 % Normal [facility] Comment on above: Performed By: #### P 14 #### [facility] [address] [place] [address] Lymphocytes #/vol (Bld) 2.34 thou/cmm Normal 1.18-3.74 [facility] Comment on above: Performed By: #### P 14 #### [facility] [address] [place], [place] [address] Lymphocytes/100 WBC (Bld) 18.6 % Normal [facility] Comment on above: Performed By: #### P 14 #### [facility] [address] [place], [place] [address] Monocytes/100 WBC (Bld) 8.8 % Normal [facility] Comment on above: Performed By: #### P 14 #### [facility] [address] [place] [address] Seg Neutrophil 62.7 % Normal [facility] Comment on above: Performed By: #### P 14 #### [facility] [address] [place] [address] Erythrocyte distribution width Ratio (RBC) 12.2 % Normal 11.7-14.4 [facility] Comment on above: Performed By: #### P 14 #### [facility] [address] [place] [address] Hematocrit Volume Fraction (Bld) 33.7 % Low 34.1-44.9 [facility] Comment on above: Performed By: #### P 14 #### [facility] [address] [place] [address] Hemoglobin mass conc (Bld) 10.6 g/dL Low 11.2-15.7 [facility] Comment on above: Performed By: #### P 14 #### [facility] [address] [place] [address] MCH Entitic mass (RBC) 30.2 pg Normal 25.6-32.2 [facility] Comment on above: Performed By: #### P 14 #### [facility] [address] [place] [address] MCHC mass conc (RBC) 31.5 % Low 31.6-34.8 [facility] Comment on above: Performed By: #### P 14 #### [facility] [address] [place] [address] MCV Entitic volume (RBC) 96.0 fL High 79.4-94.8 [facility] Comment on above: Performed By: #### P 14 #### [facility] [address] [place] [address] Platelet mean volume Entitic volume (Bld) 9.4 fL Normal 9.4-12.3 [facility] Comment on above: Performed By: #### P 14 #### [facility] [address] [place] [address] Platelets #/vol (Bld) 438 thou/cmm High 182-369 [facility] Comment on above: Performed By: #### P 14 #### [facility] [address] [place] [address] RBC #/vol (Bld) 3.51 mil/cmm Low 3.93-5.22 [facility] Comment on above: Performed By: #### P 14 #### [facility] [address] [place] [address] RDW SD 42.5 fl Normal 36.4-46.3 [facility] Comment on above: Performed By: #### P 14 #### [facility] [address] [place] [address] WBC #/vol (Bld) 12.56 thou/cmm High 3.98-10.04 [facility] Comment on above: Performed By: #### P 14 #### [facility] [address] [place] [id number] PLAN OF CAREon 03-13-2018 PLAN OF CARE HNO ID: [id number] Author: Savana Souza Service: Endocrinology Author Type: Physician Type: Plan of Care Filed: 03/13/2018 10:12 AM Note Text: PLAN OF CARE: Component Latest Ref Rng AND Units 03/12/2018 03/12/2018 03/12/2018 03/12/2018 03/13/2018 7:28 AM 11:07 AM 4:44 PM 8:51 PM GLUCOSE METER 70 - 99 mg/dL 121 (H) 215 (H) 129 (H) 132 (H) 162 (H) Blood sugars controlled with the exception of Pre-lunch. Continue current DM regimen Will follow Savana Souza MD [facility] PROGRESSon 03-13-2018 Protein mass conc HNO ID: [id number] Author: Dez Vicente (Res) MD [place] Service: Hospital Medicine Author Type: Resident Type: Progress Notes Filed: 03/13/2018 2:38 PM Note Text: Attestation signed by Didier Dalal at 03/13/2018 6:48 PM I saw and evaluated the patient. Discussed with the resident and agree with resident's findings and plan as documented in the resident's note. SERVICE DATE: 03/13/2018 SERVICE TIME: 10:43 AM HOUSE MEDICINE SERVICE PROGRESS NOTE 57 yo F with pmhx of HTN, DM, developmental delay, from [facility] presented on 03/01 for a fall at which time she was noted to be in DKA and found to have a UTI. She was given 8U of insulin and 4L of IV fluids with resolution of DKA in the ED. She has been treated for UTI and Endo has been adjusting her insulin regimen for better BG control. Poor control likely due to lack of resources and patient's developmental delay. Patient has a case coordinator who has helped with her medications in the past. Awaiting placement at SNF for medication management for her DM. She also developed cellulitis of her right buttock and right labia which appear to be improving. ? SUBJECTIVE Interval events: No overnight events. This morning patient denies fever or chills, nausea, vomiting, diarrhea, or chest pain. She did report left lower quadrant abdominal pain and mild dyspnea which was present even before admission. She reports groin pain about the same compared to yesterday, and right gluteal pain improve from yesterday. On exam there is palpable swelling but no fluctuance on right gluteal, and her right labial area, looks erythematous but otherwise unremarkable. Her right buttock is covered in a wound care bandage. OBJECTIVE Medications: IV infusions: Scheduled: amLODIPine 10 mg DAILY aspirin 81 mg DAILY atorvastatin 40 mg AT BEDTIME ciprofloxacin HCl 500 mg q 12 H doxycycline 100 mg q 12 h 7am/7pm enoxaparin 40 mg q 12 HR gabapentin 600 mg TID insulin 70/30 NPH/regular units/mL 75 Units DAILY wDINNER insulin 70/30 NPH/regular units/mL 85 Units DAILY WITH BREAKFAST insulin lispro AT BEDTIME insulin lispro w MEALS lisinopril 20 mg DAILY metFORMIN 500 mg BID w MEALS metoprolol tartrate (short acting) 12.5 mg q 12 H montelukast 10 mg AT BEDTIME white petrolatum-mineral oil DAILY PRN: acetaminophen 650 mg q 6 H PRN dextrose 15 g PRN Or glucagon 1 mg PRN Or dextrose 50% in water 12.5 g PRN pill splitter (patient-specific) 1 Each PRN Vital Signs: BP 133/78 Pulse 92 Temp (Src) 98.8 (Oral) Resp 18 Ht 5' 6" (1.68m) Wt 259 lb (117.5kg) SpO2 95% BMI 41.82 kg/(m2). Physical Exam Performed: GENERAL: GENERAL APPEARANCE NCCC: well appearing, alert and in no acute distress HEART: HEART CCF: regular rate and rhythm, normal, S1, S2, no lifts, heaves, or thrills, PMI not displaced, no murmur, gallop or rub LUNGS: LUNGS CCF: clear to percussion and auscultation and no rales ABDOMEN: ABDOMEN: Obese. Soft, bowel sounds normal, no palpable organomegaly, no bruits. Mild TTP suprapubic area. EXTREMITY: EXTREMITY EXAM: Normal exam of the extremities. No clubbing, cyanosis, or edema. : right labial area looks erythematous and indurated but no fluctuance or nodule/cyst. Right buttock has bandage over it with palpable swelling but no erythema, induration, fluctuance seen or felt. Lines, Drains, and Airways Line Peripheral 03/06/18 2310 Right Antecubital 22 Gauge 6 days Data: Recent Labs 03/13/18 0303 03/12/18 0325 03/11/18 0633 WBC 12.56* 14.02* 14.79* RBC 3.51* 3.43* 3.36* HB 10.6* 10.6* 10.3* HCT 33.7* 33.4* 32.4* PLT 438* 429* 418* MCV 96.0* 97.4* 96.4* MCH 30.2 30.9 30.7 MPV 9.4 9.8 10.0 RDW 12.2 12.2 12.2 Recent Labs 03/13/18 0303 03/12/18 0325 03/11/18 0633 03/02/18 0323 03/01/18 1100 GLUC 136* 83 91 < > 297* < > 735* NA 141 141 140 < > 136 < > 127* K 4.1 3.9 3.9 < > 3.7 < > 4.0 CHLOR 107 107 107 < > 103 < > 91* CO2 27 25 24 < > 22 < > 20* CREAT 1.35* 1.14* 1.01* < > 1.23* < > 1.51* BUN 28* 26* 20* < > 36* < > 55* ANION 11 13 13 < > 15 < > 20* CA 8.7 8.9 8.5 < > 8.1* < > 9.3 TPROT -- -- -- -- 7.0 -- 8.2 ALB -- -- -- -- 2.7* -- 3.2* TBILI -- -- -- -- 0.6 -- 0.9 ALKPHOS -- -- -- -- 106 -- 122* AST -- -- -- -- 14 -- 19 ALT -- -- -- -- 23 -- 28 < > = values in this interval not displayed. See results in EHR. ASSESSMENT AND PLAN Assessment AND Plan, all Hosp Problems Active Hospital Problems as of 03/13/2018 Noted - Resolved A * (Principal)Diabetes mellitus type 2 with ketoacidosis, uncontrolled (HCC) 03/01/2018 - Present Current Assessment AND Plan - Patient presented initially with DKA, that has resolved in the ED and was admitted to floor with poorly controlled DM - 85 units 70/30 with breakfast and 75 units with dinner, +SSI; metformin 500 mg BID (not increased d/t reduced GFR) -BG better controlled in 100s over last 24 hours, highest 162 this AM. - A1c 14.7 - Diabetes education completed - carb controlled heart healthy diet - Endocrinology following -awaiting acceptance at [facility]- for help with insulin regimen Patient has displayed a lack of ability to administer her insulin regime without assistance. After discussions with the [facility] CM there are not the support or resources to assist at [facility]. There is concern that without help administering her twice a day insulin she is at danger for becoming hypo or hyperglycemic. B UTI (urinary tract infection) 03/01/2018 - Present Current Assessment AND Plan - Sepsis secondary UTI. Resolved - Abx- cipro and doxy - Urine culture- mixed skin dani; Blood cultures NGTD - Patient reports symptomatic improvement - Creatinine Increased to 1.35 from 1.14 yesterday, continue to monitor. C Cellulitis of right groin 03/11/2018 - Present Current Assessment AND Plan -Area of induration without fluctuance. Not amendable to IANDD -Abx as above -Pt reports pain about the same. D Abscess, gluteal, right 03/06/2018 - Present Current Assessment AND Plan -Not amenable to I/D, overall improving -was previously on keflex and vanco, now on day 7 of doxycycline and day 3 of ciprofloxacin Unprioritized HTN (hypertension) 03/01/2018 - Present Current Assessment AND Plan - C/w amlodipine, lisinopril, metoprolol - Well controlled Degenerative joint disease 03/01/2018 - Present Current Assessment AND Plan -Monitor -will give tylenol for pain control PRN. Microscopic hematuria 03/01/2018 - Present Current Assessment AND Plan - Seen on UA. This is likely 2/2 UTI on admission. - Will need repeat testing as OP to make sure of resolution. Leukocytosis 03/06/2018 - Present Current Assessment AND Plan -Improving, afebrile, VSS -Possibly 2/2 to gluteal abscess, labial erythema, UTI on presentation -BC negative x4 days -C/w abx as above Obesity, Class III, BMI >= 40 03/10/2018 - Present Current Assessment AND Plan -Counseled diet and exercise Medication and Non-Pharmacologic VTE Prophylaxis/Anticoagul ants Anticoagulant AND Antiplatelet Medications Start Dose Route Frequency Ordered Stop 03/02/18 2110 enoxaparin 40 mg injection (LOVENOX) (Medical At Risk ) 40 mg SUBCUTANEOUS EVERY 12 HOURS 03/02/18 1117 -- 03/02/18 1600 aspirin 81 mg chewable tab(s) 81 mg ORAL DAILY 03/02/18 1545 -- 03/01/18 1715 pneumatic compression stockings (vt,oh) VTE Prophylaxis: VTE prophylaxis appropriate Plan of care discussed with: Attending SIGNATURE: Dez Vicente Cha, MD PATIENT NAME: Cinthya Castillo DATE: March 13, 2018 TIME: 10:43 AM PAGER/CONTACT #: Pager: [phone] Normal [facility] Basic Panelon 03-12-2018 Creatinine mass conc 1.14 mg/dL High 0.51-0.95 [facility] Comment on above: Performed By: #### P 14 #### [address] [address] Urea nitrogen mass conc 26 mg/dL High 7-18 [facility] Comment on above: Performed By: #### P 14 #### [address] [address] Anion gap molar conc 13 mmol/L Normal 8-16 [facility] Comment on above: Performed By: #### P 14 #### [address] [address] Calcium mass conc 8.9 mg/dL Normal 8.5-10.1 [facility] Comment on above: Performed By: #### P 14 #### [facility] [address] [place] [address] CO2 molar conc 25 mmol/L Normal 21-32 [facility] Comment on above: Performed By: #### P 14 #### [facility] [address] [place] [address] Glucose mass conc 83 mg/dL Normal 70-99 [facility] Comment on above: Performed By: #### P 14 #### [facility] [address] [place] [address] Chloride molar conc 107 mmol/L Normal 98-107 [facility] Comment on above: Performed By: #### P 14 #### [facility] [address] [place] [address] Potassium molar conc 3.9 mmol/L Normal 3.5-5.1 [facility] Comment on above: Performed By: #### P 14 #### [facility] [address] [place] [address] Sodium molar conc 141 mmol/L Normal 136-145 [facility] Comment on above: Performed By: #### P 14 #### [facility] [address] [place] [address] Hemogram/Diffon 03-12-2018 Abs Immature Grans 0.55 thou/cmm High 0.00-0.05 [facility] Comment on above: Performed By: #### U RIN2 #### [facility] [address] [place] [address] Abs. Baso 0.11 thou/cmm High 0.01-0.08 [facility] Comment on above: Performed By: #### U RIN2 #### [facility] [address] [place] [address] Abs. [place] 1.30 thou/cmm High 0.27-0.70 [facility] Comment on above: Performed By: #### U RIN2 #### [place] [address] Abs. Neut (ANC) 8.75 thou/cmm High 1.56-6.13 [facility] Comment on above: Performed By: #### U RIN2 #### [facility] [address] [place], [place] [address] Basophils/100 WBC (Bld) 0.8 % Normal [facility] Comment on above: Performed By: #### U RIN2 #### [facility] [address] [place], [place] [address] Eosinophils #/vol (Bld) 0.57 thou/cmm High 0.00-0.31 [facility] Comment on above: Performed By: #### U RIN2 #### [facility] [address] [place], [place] [address] Eosinophils/100 WBC (Bld) 4.1 % Normal [facility] Comment on above: Performed By: #### U RIN2 #### [facility] [address] [place], [place] [address] Immature Grans 3.90 % Normal [facility] Comment on above: Performed By: #### U RIN2 #### [facility] [address] [place], [place] [address] Lymphocytes #/vol (Bld) 2.73 thou/cmm Normal 1.18-3.74 [facility] Comment on above: Performed By: #### U RIN2 #### [facility] [address] [place], [place] [address] Lymphocytes/100 WBC (Bld) 19.5 % Normal [facility] Comment on above: Performed By: #### U RIN2 #### [facility] [address] [place], [place] [address] Monocytes/100 WBC (Bld) 9.3 % Normal [facility] Comment on above: Performed By: #### U RIN2 #### [facility] [address] [place], [place] [address] Seg Neutrophil 62.4 % Normal [facility] Comment on above: Performed By: #### U RIN2 #### [facility] [address] [place], [place] [address] Erythrocyte distribution width Ratio (RBC) 12.2 % Normal 11.7-14.4 [facility] Comment on above: Performed By: #### U RIN2 #### [facility] [address] [place] [address] Hematocrit Volume Fraction (Bld) 33.4 % Low 34.1-44.9 [facility] Comment on above: Performed By: #### U RIN2 #### [facility] [address] [place] [address] Hemoglobin mass conc (Bld) 10.6 g/dL Low 11.2-15.7 [facility] Comment on above: Performed By: #### U RIN2 #### [facility] [address] [place] [address] MCH Entitic mass (RBC) 30.9 pg Normal 25.6-32.2 [facility] Comment on above: Performed By: #### U RIN2 #### [facility] [address] [place] [address] MCHC mass conc (RBC) 31.7 % Normal 31.6-34.8 [facility] Comment on above: Performed By: #### U RIN2 #### [facility] [address] [place] [address] MCV Entitic volume (RBC) 97.4 fL High 79.4-94.8 [facility] Comment on above: Performed By: #### U RIN2 #### [facility] [address] [place] [address] Platelet mean volume Entitic volume (Bld) 9.8 fL Normal 9.4-12.3 [facility] Comment on above: Performed By: #### U RIN2 #### [facility] [address] [place] [address] Platelets #/vol (Bld) 429 thou/cmm High 182-369 A [facility] Comment on above: Performed By: #### U RIN2 #### [facility] [address] [place] [address] RBC #/vol (Bld) 3.43 mil/cmm Low 3.93-5.22 [facility] Comment on above: Performed By: #### U RIN2 #### [facility] [place] [address] RDW SD 43.6 fl Normal 36.4-46.3 [facility] Comment on above: Performed By: #### U RIN2 #### [place] [address] WBC #/vol (Bld) 14.02 thou/cmm High 3.98-10.04 [facility] Comment on above: Performed By: #### U RIN2 #### [place] [address] PLAN OF CAREon 03-12-2018 PLAN OF CARE HNO ID: [id number] Author: Savana Souza Service: Endocrinology Author Type: Physician Type: Plan of Care Filed: 03/12/2018 9:37 AM Note Text: PLAN OF CARE: Component Latest Ref Rng AND Units 03/11/2018 03/11/2018 03/11/2018 03/11/2018 03/11/2018 03/12/2018 6:33 AM 8:09 AM 11:32 AM 4:53 PM 9:12 PM Sodium 136 - 145 mEq/L 140 141 Potassium 3.5 - 5.1 mEq/L 3.9 3.9 Chloride 98 - 107 mEq/L 107 107 CO2 21 - 32 mEq/L 24 25 Glucose 70 - 99 mg/dL 91 83 BUN 7 - 18 mg/dL 20 (H) 26 (H) Creatinine 0.51 - 0.95 mg/dL 1.01 (H) 1.14 (H) Calcium 8.5 - 10.1 mg/dL 8.5 8.9 Anion Gap 8 - 16 13 13 eGFR >60mL/min/1.73m2 56.65 49.26 GLUCOSE METER 70 - 99 mg/dL 122 (H) 186 (H) 132 (H) 109 (H) 121 (H) Blood sugars at goal. Continue current DM regimen Will follow Savana Souza MD [facility] PROGRESSon 03-12-2018 Protein mass conc HNO ID: [id number] Author: Polly Parks Service: Hospital Medicine Author Type: Resident Type: Progress Notes Filed: 03/12/2018 11:40 AM Note Text: Attestation signed by Didier Dalal at 03/12/2018 8:00 PM I saw and evaluated the patient. Discussed with the resident and agree with resident's findings and plan as documented in the resident's note. SERVICE DATE: 03/12/2018 SERVICE TIME: 8:28 AM HOUSE MEDICINE SERVICE PROGRESS NOTE 57 yo F with pmhx of HTN, DM, developmental delay, from [facility] presented on 03/01 for a fall at which time she was noted to be in DKA and found to have a UTI. She was given 8U of insulin and 4L of IV fluids with resolution of DKA in the ED. She has been treated for UTI and Endo has been adjusting her insulin regimen for better BG control. Poor control likely due to lack of resources and patient's developmental delay. Patient has a case coordinator who has helped with her medications in the past. Awaiting placement at SNF for medication management for her DM. She also developed cellulitis of her right buttock and right labia which appear to be improving. ? SUBJECTIVE Interval events: No Change No overnight events. This AM patient denies fever, chills, nausea, vomiting, abd pain, diarrhea, SOB, CP. She denies worsening of her buttock pain or labial pain. On exam there is no fluctuance, and her right labial area, looks erythematous but otherwise unremarkable. Her right buttock is covered in a wound care bandage. OBJECTIVE Medications: IV infusions: Scheduled: amLODIPine 10 mg DAILY aspirin 81 mg DAILY atorvastatin 40 mg AT BEDTIME ciprofloxacin HCl 500 mg q 12 H doxycycline 100 mg q 12 h 7am/7pm enoxaparin 40 mg q 12 HR gabapentin 600 mg TID insulin 70/30 NPH/regular units/mL 75 Units DAILY wDINNER insulin 70/30 NPH/regular units/mL 85 Units DAILY WITH BREAKFAST insulin lispro AT BEDTIME insulin lispro w MEALS lisinopril 20 mg DAILY metFORMIN 500 mg BID w MEALS metoprolol tartrate (short acting) 12.5 mg q 12 H montelukast 10 mg AT BEDTIME white petrolatum-mineral oil DAILY PRN: acetaminophen 650 mg q 6 H PRN dextrose 15 g PRN Or glucagon 1 mg PRN Or dextrose 50% in water 12.5 g PRN pill splitter (patient-specific) 1 Each PRN Vital Signs: BP 130/73 Pulse 97 Temp (Src) 98.8 (Oral) Resp 18 Ht 5' 6" (1.68m) Wt 259 lb (117.5kg) SpO2 96% BMI 41.82 kg/(m2). Physical Exam Performed: GENERAL: GENERAL APPEARANCE NCCC: well appearing, alert and in no acute distress HEART: HEART CCF: regular rate and rhythm, normal, S1, S2, no lifts, heaves, or thrills, PMI not displaced, no murmur, gallop or rub LUNGS: LUNGS CCF: clear to percussion and auscultation and no rales ABDOMEN: ABDOMEN: Obese. Soft, bowel sounds normal, no palpable organomegaly, no bruits. Mild TTP suprapubic area. EXTREMITY: EXTREMITY EXAM: Normal exam of the extremities. No clubbing, cyanosis, or edema. : right labial area looks erythematous and indurated but no fluctuance or nodule/cyst. Right buttock has bandage over it but no erythema, induration, fluctuance seen or felt. Lines, Drains, and Airways Line Peripheral 03/06/18 2310 Right Antecubital 22 Gauge 5 days Data: Recent Labs 03/12/18 0325 03/11/18 0633 03/09/18 0816 WBC 14.02* 14.79* 13.73* RBC 3.43* 3.36* 3.46* HB 10.6* 10.3* 10.7* HCT 33.4* 32.4* 33.0* PLT 429* 418* 355 MCV 97.4* 96.4* 95.4* MCH 30.9 30.7 30.9 MPV 9.8 10.0 9.8 RDW 12.2 12.2 12.3 Recent Labs 03/12/18 0325 03/11/18 0633 03/10/18 0105 03/02/18 0323 03/01/18 1100 GLUC 83 91 163* < > 297* < > 735* NA 141 140 142 < > 136 < > 127* K 3.9 3.9 3.8 < > 3.7 < > 4.0 CHLOR 107 107 105 < > 103 < > 91* CO2 25 24 28 < > 22 < > 20* CREAT 1.14* 1.01* 1.22* < > 1.23* < > 1.51* BUN 26* 20* 22* < > 36* < > 55* ANION 13 13 13 < > 15 < > 20* CA 8.9 8.5 8.3* < > 8.1* < > 9.3 TPROT -- -- -- -- 7.0 -- 8.2 ALB -- -- -- -- 2.7* -- 3.2* TBILI -- -- -- -- 0.6 -- 0.9 ALKPHOS -- -- -- -- 106 -- 122* AST -- -- -- -- 14 -- 19 ALT -- -- -- -- 23 -- 28 < > = values in this interval not displayed. See results in EHR. ASSESSMENT AND PLAN Assessment AND Plan, all Hosp Problems Active Hospital Problems as of 03/12/2018 Noted - Resolved A * (Principal)Diabetes mellitus type 2 with ketoacidosis, uncontrolled ([facility]) 03/01/2018 - Present Current Assessment AND Plan - Patient presented initially with DKA, that has resolved in the ED and was admitted to floor with poorly controlled DM - 85 units 70/30 with breakfast and 75 units with dinner, +SSI; metformin 500 mg BID (not increased d/t reduced GFR) -BG better controlled in 100s over last 24 hours, has only required 2 u SSI - A1c 14.7 - Diabetes education completed - carb controlled heart healthy diet - Endocrinology following -awaiting acceptance at [facility]- for help with insulin regimen Patient has displayed a lack of ability to administer her insulin regime without assistance. After discussions with the [facility] there are not the support or resources to assist at [facility]. There is concern that without help administering her twice a day insulin she is at danger for becoming hypo or hyperglycemic. B UTI (urinary tract infection) 03/01/2018 - Present Current Assessment AND Plan - Sepsis secondary UTI. Resolved - Abx- cipro and doxy - Urine culture- mixed skin dani; Blood cultures NGTD - Patient reports symptomatic improvement C Abscess, gluteal, right 03/06/2018 - Present Current Assessment AND Plan -Not amenable to I/D, overall improving -was previously on keflex and vanco, now on day 6 of doxycycline and day 2 of ciprofloxacin D Leukocytosis 03/06/2018 - Present Current Assessment AND Plan -Improving, afebrile, VSS -Possibly 2/2 to gluteal abscess, labial erythema, UTI on presentation -BC negative x4 days -C/w abx as above E Cellulitis of right groin 03/11/2018 - Present Current Assessment AND Plan -Area of induration without fluctuance. Not amendable to IANDD -Abx as above -Pt reports pain improving F Microscopic hematuria 03/01/2018 - Present Current Assessment AND Plan - Seen on UA. This is likely 2/2 UTI on admission. - Will need repeat testing as OP to make sure of resolution. G HTN (hypertension) 03/01/2018 - Present Current Assessment AND Plan - C/w amlodipine, lisinopril, metoprolol - Well controlled H Degenerative joint disease 03/01/2018 - Present Current Assessment AND Plan -Monitor -will give tylenol for pain control PRN. I Obesity, Class III, BMI >= 40 03/10/2018 - Present Current Assessment AND Plan -Counseled diet and exercise Medication and Non-Pharmacologic VTE Prophylaxis/Anticoagul ants Anticoagulant AND Antiplatelet Medications Start Dose Route Frequency Ordered Stop 03/02/18 2110 enoxaparin 40 mg injection (LOVENOX) (Medical At Risk ) 40 mg SUBCUTANEOUS EVERY 12 HOURS 03/02/18 1117 -- 03/02/18 1600 aspirin 81 mg chewable tab(s) 81 mg ORAL DAILY 03/02/18 1545 -- 03/01/18 1715 pneumatic compression stockings (vt,oh) VTE Prophylaxis: VTE prophylaxis appropriate SIGNATURE: Polly Parks DO PATIENT NAME: Cinthya Castillo DATE: March 12, 2018 TIME: 8:28 AM PAGER/CONTACT #: [phone] [facility] 03-11-2018 ALLIED HEALTH HNO ID: [id number] Author: Analilia Tineo (Chaplain), Student Service: Spiritual Care Author Type: Powder Blender Type: Allied Health Filed: 03/11/2018 12:22 PM Note Text: SPIRITUALCARE Spiritual Care Visit- Brief Note Name: Cinthya Castillo Date: March 11, 2018 Notes: I stopped into have visit with Pt today. Pt was excited that she was going to a rehab facility to get better. Pt asked for prayer for when she goes to facility. I extended prayer for Pt and she thanked me for coming. Powder Blender Signature: Chaplain Candy Manager Project To contact the Spiritual Care Department: Please call [phone] or Page the On-Call Powder Blender at pager [phone] Thank you for the opportunity to be of service. This is an electronically created document. IF PRINTED, PLEASE DO NOT REMOVE FROM THE CHART OR MODIFY PRINTED COPY. Normal [facility] Basic Panelon 03-11-2018 Creatinine mass conc 1.01 mg/dL High 0.51-0.95 [facility] Comment on above: Performed By: #### U RIN2 #### [place] [address] Anion gap molar conc 13 mmol/L Normal 8-16 [facility] Comment on above: Performed By: #### U RIN2 #### [place] [address] CO2 molar conc 24 mmol/L Normal 21-32 [facility] Comment on above: Performed By: #### U RIN2 #### [place] [address] Glucose mass conc 91 mg/dL Normal 70-99 [facility] Comment on above: Performed By: #### U RIN2 #### [place] [address] Urea nitrogen mass conc 20 mg/dL High 7-18 [facility] Comment on above: Performed By: #### U RIN2 #### [facility] [address] [place] [address] Calcium mass conc 8.5 mg/dL Normal 8.5-10.1 [facility] Comment on above: Performed By: #### U RIN2 #### [facility] [address] [place] [address] Chloride molar conc 107 mmol/L Normal 98-107 [facility] Comment on above: Performed By: #### U RIN2 #### [facility] [address] [place] [address] Potassium molar conc 3.9 mmol/L Normal 3.5-5.1 [facility] Comment on above: Performed By: #### U RIN2 #### [facility] [address] [place] [address] Sodium molar conc 140 mmol/L Normal 136-145 [facility] Comment on above: Performed By: #### U RIN2 #### [facility] [address] [place] [address] CASE MANAGEMon 03-11-2018 CASE MANAGEM HNO ID: [id number] Author: Radha (Rn) SUNDEEP Thomas Service: Care Management Author Type: Registered Nurse Type: Care Mgt Progress Note Filed: 03/11/2018 1:41 PM Note Text: CARE MANAGEMENT PROGRESS NOTE SERVICE DATE: 03/11/2018 SERVICE TIME: 1:40 PM LOS: 10 days Needs Prior to Discharge: Insurance Authorization;Discharg e Transportation Chart reviewed. Awaiting auth for d/c to [place]. Will continue to follow. Soren AGUIRRE Cliftonkina Murray has stated she can transport at d/c. SIGNATURE: Radha Thomas RN PATIENT NAME: Cinthya Castillo DATE: March 11, 2018 TIME: 1:40 PM PAGER/CONTACT #: [phone] Normal [facility] Hemogram/Diffon 03-11-2018 Abs Immature Grans 0.53 thou/cmm High 0.00-0.05 [facility] Comment on above: Performed By: #### U RIN2 #### [facility] [address] [place] [address] Abs. Baso 0.07 thou/cmm Normal 0.01-0.08 [facility] Comment on above: Result Comment: Smea r scanned; tech agrees with automated differential Performed By: #### U RIN2 #### [facility] [address] [place] [address] Abs. [place] 1.29 thou/cmm High 0.27-0.70 [facility] Comment on above: Performed By: #### U RIN2 #### [facility] [address] [place] [address] Abs. Neut (ANC) 10.31 thou/cmm High 1.56-6.13 [facility] Comment on above: Performed By: #### U RIN2 #### [place] [address] Basophils/100 WBC (Bld) 0.5 % Normal [facility] Comment on above: Performed By: #### U RIN2 #### [place] [address] Eosinophils #/vol (Bld) 0.50 thou/cmm High 0.00-0.31 [facility] Comment on above: Performed By: #### U RIN2 #### [place] [address] Eosinophils/100 WBC (Bld) 3.4 % Normal [facility] Comment on above: Performed By: #### U RIN2 #### [place] [address] Immature Grans 3.60 % Normal [facility] Comment on above: Performed By: #### U RIN2 #### [address] [address] Lymphocytes #/vol (Bld) 2.09 thou/cmm Normal 1.18-3.74 [facility] Comment on above: Performed By: #### U RIN2 #### [address] [address] Lymphocytes/100 WBC (Bld) 14.1 % Normal [facility] Comment on above: Performed By: #### U RIN2 #### [facility] [address] [place] [address] Monocytes/100 WBC (Bld) 8.7 % Normal [facility] Comment on above: Performed By: #### U RIN2 #### [facility] [address] [place] [address] Seg Neutrophil 69.7 % Normal [facility] Comment on above: Performed By: #### U RIN2 #### [facility] [address] [place] [address] Erythrocyte distribution width Ratio (RBC) 12.2 % Normal 11.7-14.4 [facility] Comment on above: Performed By: #### U RIN2 #### [facility] [address] [place] [address] Hematocrit Volume Fraction (Bld) 32.4 % Low 34.1-44.9 [facility] Comment on above: Performed By: #### U RIN2 #### [facility] [address] [place] [address] Hemoglobin mass conc (Bld) 10.3 g/dL Low 11.2-15.7 [facility] Comment on above: Performed By: #### U RIN2 #### [facility] [address] [place] [address] MCH Entitic mass (RBC) 30.7 pg Normal 25.6-32.2 [facility] Comment on above: Performed By: #### U RIN2 #### [facility] [address] [place] [address] MCHC mass conc (RBC) 31.8 % Normal 31.6-34.8 [facility] Comment on above: Performed By: #### U RIN2 #### [facility] [address] [place] [address] MCV Entitic volume (RBC) 96.4 fL High 79.4-94.8 [facility] Comment on above: Performed By: #### U RIN2 #### [facility] [address] [place] [address] Platelet mean volume Entitic volume (Bld) 10.0 fL Normal 9.4-12.3 [facility] Comment on above: Performed By: #### U RIN2 #### [facility] [address] [place] [address] Platelets #/vol (Bld) 418 thou/cmm High 182-369 [facility] Comment on above: Performed By: #### U RIN2 #### [facility] [address] [place] [address] RBC #/vol (Bld) 3.36 mil/cmm Low 3.93-5.22 [facility] Comment on above: Performed By: #### U RIN2 #### [facility] [address] [place] [address] RDW SD 42.3 fl Normal 36.4-46.3 [facility] Comment on above: Performed By: #### U RIN2 #### [facility] [address] [place] [address] WBC #/vol (Bld) 14.79 thou/cmm High 3.98-10.04 [facility] Comment on above: Performed By: #### U RIN2 #### [facility] [address] [place] [address] PLAN OF CAREon 03-11-2018 PLAN OF CARE HNO ID: [id number] Author: Savana Souza Service: Endocrinology Author Type: Physician Type: Plan of Care Filed: 03/11/2018 7:50 AM Note Text: Plan of Care: Component Latest Ref Rng AND Units 03/10/2018 03/10/2018 03/10/2018 03/10/2018 03/11/2018 7:37 AM 11:41 AM 4:32 PM 8:29 PM Sodium 136 - 145 mEq/L 140 Potassium 3.5 - 5.1 mEq/L 3.9 Chloride 98 - 107 mEq/L 107 CO2 21 - 32 mEq/L 24 Glucose 70 - 99 mg/dL 91 BUN 7 - 18 mg/dL 20 (H) Creatinine 0.51 - 0.95 mg/dL 1.01 (H) Calcium 8.5 - 10.1 mg/dL 8.5 Anion Gap 8 - 16 13 GLUCOSE METER 70 - 99 mg/dL 206 (H) 238 (H) 180 (H) 115 (H) Blood sugar on BMP today 91. Insulin was increased yesterday. Will monitor blood sugars today and adjust as needed Savana Souza MD [facility] PROGRESSon 03-11-2018 Protein mass conc HNO ID: [id number] Author: Lynsey (Rn) Alejandro RN Service: Nursing Author Type: Registered Nurse Type: Progress Notes Filed: 03/11/2018 7:17 PM Note Text: Sepsis advisory noted pagesameera ANDREWS [facility] Protein mass conc HNO ID: [id number] Author: Jackson Williamson DO Service: Hospital Medicine Author Type: Resident Type: Progress Notes Filed: 03/11/2018 2:36 PM Note Text: Attestation signed by Walter Gross at 03/11/2018 3:42 PM Resting in bed. C/o right groin, labial discomfort. No fever, chills. Eating well. NAD. Afebrile. VSS Lungs: Clear CV: RRR Right labia slightly red with area of induration, no fluctuance. Labs: WBC=14.78 Endo input appreciated I saw and evaluated the patient. Discussed with the resident and agree with resident's findings and plan as documented in the resident's note. Plan: Add Cipro with Doxy. Follow WBC and symptoms. Await placement. Insulin as per endo recommendations. Walter Gross MD SERVICE DATE: 03/11/2018 SERVICE TIME: 2:36 PM HOUSE MEDICINE SERVICE PROGRESS NOTE HPI: Patient is a 57 yo F with pmhx of HTN, DM, developmental delay is presenting after having a fall at which time she was noted to be in DKA and found to have a UTI. She was given 8U of insulin and 4L of IV fluids with resolution of DKA. Patient's BG is trending down from 700s to 297. A1c found to be 14.7. Poor control likely due to lack of resources and patient's developmental delay. Patient has a case coordinator who has helped with her medications in the past. Awaiting placement at SNF for medication management for her DM. SUBJECTIVE Interval events: Blood sugars better controlled today. Continue insulin regime. Patient seen resting in bedside chair, states she is doing well. Continues to complain of right buttock pain, unchanged from yesterday. Also complaining of right groin pain. Pain is non radiating. Denied any fever, chills or night sweats, chest pain, shortness of breath. OBJECTIVE Medications: IV infusions: Scheduled: amLODIPine 10 mg DAILY aspirin 81 mg DAILY atorvastatin 40 mg AT BEDTIME cephALEXin 500 mg q 6 H doxycycline 100 mg q 12 h 7am/7pm enoxaparin 40 mg q 12 HR gabapentin 600 mg TID insulin 70/30 NPH/regular units/mL 75 Units DAILY wDINNER insulin 70/30 NPH/regular units/mL 85 Units DAILY WITH BREAKFAST insulin lispro AT BEDTIME insulin lispro w MEALS lisinopril 20 mg DAILY metFORMIN 500 mg BID w MEALS metoprolol tartrate (short acting) 12.5 mg q 12 H montelukast 10 mg AT BEDTIME white petrolatum-mineral oil DAILY PRN: acetaminophen 650 mg q 6 H PRN dextrose 15 g PRN Or glucagon 1 mg PRN Or dextrose 50% in water 12.5 g PRN Vital Signs: BP 138/74 Pulse 93 Temp (Src) 98.4 (Oral) Resp 18 Ht 5' 6" (1.68m) Wt 259 lb (117.5kg) SpO2 100% BMI 41.82 kg/(m2). Physical Exam Performed: GENERAL: GENERAL APPEARANCE NCCC: well appearing, alert and in no acute distress HEART: HEART CCF: regular rate and rhythm, normal, S1, S2, PMI not displaced, no murmur, gallop or rub LUNGS: LUNGS CCF: clear to percussion and auscultation and no rales ABDOMEN: ABDOMEN: Soft, nontender, bowel sounds normal, no palpable organomegaly, no bruits. EXTREMITY: EXTREMITY EXAM: Normal exam of the extremities. No clubbing, cyanosis, or edema. NEURO: Gait normal. Reflexes normal and symmetric. Sensation grossly intact, Cranial nerves II-XII intact PULSES: 2+ radial, 2+ dorsalis pedis, 2+ carotid WOUND: Right buttock: Clean, dry and intact, area of induration roughly the same as yesterday, non tender to palpation, no surrounding erythema. Right Groin: Area of induration over right inguinal/paralabial area. Tender to palpation. Overlying erythema. No drainage, no fluctuance. No abrasions. Lines, Drains, and Airways Line Peripheral 03/06/18 2310 Right Antecubital 22 Gauge 4 days Data: I have reviewed all of the lab / imaging / pathology from today. Pertinent study results include: WBC 14.79 Recent Labs 03/11/18 0633 03/09/18 0816 03/06/18 0356 WBC 14.79* 13.73* 13.39* RBC 3.36* 3.46* 3.52* HB 10.3* 10.7* 11.0* HCT 32.4* 33.0* 33.2* PLT 418* 355 294 MCV 96.4* 95.4* 94.3 MCH 30.7 30.9 31.3 MPV 10.0 9.8 10.9 RDW 12.2 12.3 12.2 Recent Labs 03/11/18 0633 03/10/18 0105 03/09/18 0116 03/02/18 0323 03/01/18 1100 GLUC 91 163* 132* < > 297* < > 735* NA 140 142 142 < > 136 < > 127* K 3.9 3.8 3.8 < > 3.7 < > 4.0 CHLOR 107 105 105 < > 103 < > 91* CO2 24 28 27 < > 22 < > 20* CREAT 1.01* 1.22* 1.02* < > 1.23* < > 1.51* BUN 20* 22* 19* < > 36* < > 55* ANION 13 13 14 < > 15 < > 20* CA 8.5 8.3* 8.7 < > 8.1* < > 9.3 TPROT -- -- -- -- 7.0 -- 8.2 ALB -- -- -- -- 2.7* -- 3.2* TBILI -- -- -- -- 0.6 -- 0.9 ALKPHOS -- -- -- -- 106 -- 122* AST -- -- -- -- 14 -- 19 ALT -- -- -- -- 23 -- 28 < > = values in this interval not displayed. See results in EHR. ASSESSMENT AND PLAN Assessment AND Plan, all Hosp Problems Active Hospital Problems as of 03/11/2018 Noted - Resolved A * (Principal)Diabetes mellitus type 2 with ketoacidosis, uncontrolled (HCC) 03/01/2018 - Present Current Assessment AND Plan - Patient presented initially with DKA, that has resolved in the ED with 8 units of regular insulin subq and 4 L NaCl - 85 units 70/30 with breakfast and 75 units with dinner, +SSI; metformin 500 mg BID (not increased d/t reduced GFR) - A1c 14.7 - Diabetes education completed - daily BMPs - carb controlled heart healthy diet - endocrinology following Patient has displayed a lack of ability to administer her insulin regime without assistance. After discussions with the [facility] CM there are not the support or resources to assist at [facility]. There is concern that without help administering her twice a day insulin she is at danger for becoming hypo or hyperglycemic. B Abscess, gluteal, right 03/06/2018 - Present Current Assessment AND Plan -Not amenable to I/D, overall improving -Day 5 of abx. -Switch abx to ciprofloxacin. Unprioritized UTI (urinary tract infection) 03/01/2018 - Present Current Assessment AND Plan - Sepsis secondary UTI. Resolved - Abx as above for the gluteal abscess - Urine culture- mixed skin dani; Blood cultures NGTD - Patient reports symptomatic improvement HTN (hypertension) 03/01/2018 - Present Current Assessment AND Plan - C/w amlodipine, lisinopril, metoprolol - Will slowly titrate up as BP tolerates Degenerative joint disease 03/01/2018 - Present Current Assessment AND Plan -Monitor -will give tylenol for pain control PRN. Diabetic ketoacidosis (HCC) 03/01/2018 - Present Current Assessment AND Plan Resolved- see above Microscopic hematuria 03/01/2018 - Present Current Assessment AND Plan - Seen on UA. This is likely 2/2 UTI. - Will need repeat testing as OP to make sure of resolution. Leukocytosis 03/06/2018 - Present Current Assessment AND Plan -Possibly 2/2 to gluteal abscess -Consider rechecking UA -C/w abx as above Obesity, Class III, BMI >= 40 03/10/2018 - Present Current Assessment AND Plan -Counseled diet and exercise Abscess, right groin 03/11/2018 - Present Current Assessment AND Plan -Area of induration without fluctuance. Not amendable to IANDD -Abx as above -Continue to monitor for improvement Medication and Non-Pharmacologic VTE Prophylaxis/Anticoagul ants Anticoagulant AND Antiplatelet Medications Start Dose Route Frequency Ordered Stop 03/02/180 enoxaparin 40 mg injection (LOVENOX) (Medical At Risk ) 40 mg SUBCUTANEOUS EVERY 12 HOURS 03/02/18 1117 -- 03/02/18 1600 aspirin 81 mg chewable tab(s) 81 mg ORAL DAILY 03/02/18 1545 -- 03/01/18 1715 pneumatic compression stockings (vt,sc) VTE Prophylaxis: VTE prophylaxis appropriate Plan of care discussed with: Attending and Patient SIGNATURE: Jackson Williamson DO PATIENT NAME: Cinthya Castillo DATE: March 11, 2018 TIME: 2:36 PM PAGER/CONTACT #: [phone] Normal [facility] Basic Panelon 03-10-2018 Creatinine mass conc 1.22 mg/dL High 0.51-0.95 [facility] Comment on above: Performed By: #### U RIN2 #### [place] [address] Urea nitrogen mass conc 22 mg/dL High 7-18 [facility] Comment on above: Performed By: #### U RIN2 #### [facility] [address] [place], [place] [address] Anion gap molar conc 13 mmol/L Normal 8-16 [facility] Comment on above: Performed By: #### U RIN2 #### [facility] [address] [place], [place] [address] Calcium mass conc 8.3 mg/dL Low 8.5-10.1 [facility] Comment on above: Performed By: #### U RIN2 #### [place] [address] CO2 molar conc 28 mmol/L Normal 21-32 [facility] Comment on above: Performed By: #### U RIN2 #### [facility] [address] [place], [place] [address] Glucose mass conc 163 mg/dL High 70-99 [facility] Comment on above: Performed By: #### U RIN2 #### [facility] [address] [place] [address] Chloride molar conc 105 mmol/L Normal 98-107 [facility] Comment on above: Performed By: #### U RIN2 #### [facility] [address] [place] [address] Potassium molar conc 3.8 mmol/L Normal 3.5-5.1 [facility] Comment on above: Performed By: #### U RIN2 #### [facility] [address] [place] [address] Sodium molar conc 142 mmol/L Normal 136-145 [facility] Comment on above: Performed By: #### U RIN2 #### [facility] [address] [place] [address] CASE MANAGEMon 03-10-2018 CASE MANAGEM HNO ID: [id number] Author: Radha PattenRn) SUNDEEP Thomas Service: Care Management Author Type: Registered Nurse Type: Care Mgt Progress Note Filed: 03/10/2018 9:03 AM Note Text: CARE MANAGEMENT PROGRESS NOTE SERVICE DATE: 03/10/2018 SERVICE TIME: 9:02 AM LOS: 9 days Needs Prior to Discharge: [facility] Authorization started. Await auth for d/c. SIGNATURE: Radha Thomas RN PATIENT NAME: Cinthya Castillo DATE: March 10, 2018 TIME: 9:02 AM PAGER/CONTACT #: [phone] Normal [facility] CONSULT PROGon 03-10-2018 Protein mass conc HNO ID: [id number] Author: Savana Souza Service: Endocrinology Author Type: Physician Type: Consult Progress Note Filed: 03/10/2018 10:21 AM Note Text: ENDOCRINOLOGY PROGRESS NOTE PATIENT NAME: Cinthya Castillo SERVICE DATE: 03/10/18 SUBJECTIVE Interval History: Blood sugars elevated yesterday. CURRENT MEDICATION: Current hospital medications: acetaminophen 650 mg tab(s) (TYLENOL) 650 mg ORAL q 6 H PRN amLODIPine 10 mg tab(s) (NORVASC) 10 mg ORAL DAILY aspirin 81 mg chewable tab(s) 81 mg ORAL DAILY atorvastatin 40 mg tab(s) (LIPITOR) 40 mg ORAL AT BEDTIME cephALEXin 500 mg cap(s) (KEFLEX) 500 mg ORAL q 6 H dextrose 40 % 15 g 15 g ORAL PRN dextrose 50% in water 25 mL syringe 12.5 g INTRAVENOUS PRN doxycycline hyclate 100 mg cap(s) (VIBRAMYCIN) 100 mg ORAL q 12 h 7am/7pm enoxaparin 40 mg injection (LOVENOX) 40 mg SUBCUTANEOUS q 12 HR gabapentin 600 mg cap(s) (NEURONTIN) 600 mg ORAL TID glucagon 1 mg injection (GLUCAGEN) 1 mg INTRAMUSCULAR PRN insulin 70/30 NPH/regular units/mL 75 Units inj pen (mixed intermediate and short acting) (HumuLIN 70/30, NovoLIN 70/30) 75 Units SUBCUTANEOUS DAILY wDINNER [START ON 03/11/2018] insulin 70/30 NPH/regular units/mL 85 Units inj pen (mixed intermediate and short acting) (HumuLIN 70/30, NovoLIN 70/30) 85 Units SUBCUTANEOUS DAILY WITH BREAKFAST insulin lispro pen (rapid acting) (HumaLOG KWIKPEN) SUBCUTANEOUS AT BEDTIME insulin lispro pen (rapid acting) (HumaLOG KWIKPEN) SUBCUTANEOUS w MEALS lisinopril 20 mg tab(s) (ZESTRIL, PRINIVIL) 20 mg ORAL DAILY metFORMIN 500 mg tab(s) (GLUCOPHAGE) 500 mg ORAL BID w MEALS metoprolol tartrate (short acting) 12.5 mg tab(s) (LOPRESSOR) 12.5 mg ORAL q 12 H montelukast 10 mg tab(s) (SINGULAIR) 10 mg ORAL AT BEDTIME white petrolatum-mineral oil cream (EUCERIN) TOPICAL DAILY CURRENT ALLERGIES: ALLERGIES Allergen Reactions - Penicillin Unknown Pt unaware of reaction. Tolerated cephalexin 02/2018 REVIEW OF SYSTEMS: SYSTEMIC: no complains OBJECTIVE PHYSICAL EXAM: BP 129/85 Pulse 95 Temp 36.8 ?C (98.2 ?F) (Oral) Resp 18 Ht 167.6 cm (5' 6") Wt 117.5 kg (259 lb) SpO2 96% BMI 41.80 kg/m? DATA: Diagnostic tests reviewed for today's visit: Component Latest Ref Rng AND Units 03/08/2018 03/08/2018 03/08/2018 03/08/2018 03/09/2018 03/09/2018 03/09/2018 03/09/2018 03/10/2018 7:16 AM 10:58 AM 5:07 PM 9:09 PM 7:21 AM 11:48 AM 4:28 PM 8:46 PM GLUCOSE METER 70 - 99 mg/dL 196 (H) 240 (H) 217 (H) 116 (H) 171 (H) 231 (H) 249 (H) 175 (H) 206 (H) Component Latest Ref Rng AND Units 03/10/2018 Sodium 136 - 145 mEq/L 142 Potassium 3.5 - 5.1 mEq/L 3.8 Chloride 98 - 107 mEq/L 105 CO2 21 - 32 mEq/L 28 Glucose 70 - 99 mg/dL 163 (H) BUN 7 - 18 mg/dL 22 (H) Creatinine 0.51 - 0.95 mg/dL 1.22 (H) Calcium 8.5 - 10.1 mg/dL 8.3 (L) Anion Gap 8 - 16 13 eGFR >60mL/min/1.73m2 45.55 ASSESSMENT AND PLAN 57 year old with PMH of HTN, Type 2 DM and developmental delay who was admitted after having a fall and found to have a UTI. Endocrinology consulted for management of: Uncontrolled Type 2 DM - Increase insulin 70/30 to 85 units with breakfast and 75 units with dinner - Continue ISS #2 AC and #1 HS - Patient is also on Metformin 1,000 mg BID Savana Souza MD [facility] PROGRESSon 03-10-2018 Protein mass conc HNO ID: [id number] Author: Jackson Williamson DO Service: Hospital Medicine Author Type: Resident Type: Progress Notes Filed: 03/10/2018 2:52 PM Note Text: Attestation signed by Walter Gross at 03/10/2018 6:14 PM Continues to feel better. Less buttock pain today. Sitting in chair. States she is ready to be sent to ECF. NAD. Afebrile. VSS. Lungs: Clear CV: RRR Labs noted. Cr=1.22 today. Blood sugars noted. Endo input noted. I saw and evaluated the patient. Discussed with the resident and agree with resident's findings and plan as documented in the resident's note. Plan: Continue current treatment. Hope to discharge soon. Walter Gross MD SERVICE DATE: 03/10/2018 SERVICE TIME: 2:37 PM HOUSE MEDICINE SERVICE PROGRESS NOTE HPI: Patient is a 57 yo F with pmhx of HTN, DM, developmental delay is presenting after having a fall at which time she was noted to be in DKA and found to have a UTI. She was given 8U of insulin and 4L of IV fluids with resolution of DKA. Patient's BG is trending down from 700s to 297. A1c found to be 14.7. Poor control likely due to lack of resources and patient's developmental delay. Patient has a case coordinator who has helped with her medications in the past. SUBJECTIVE Interval events: Patient seen resting in bed. States she is doing well and reports improved pain over right buttock. Denied any problems overnight. Denied any chest pain, shortness of breath, abdominal pain, n/v/d. Blood sugars elevated yesterday. Endocrinology increasing insulin to 85 units with breakfast and 75 units with dinner. OBJECTIVE Medications: IV infusions: Scheduled: amLODIPine 10 mg DAILY aspirin 81 mg DAILY atorvastatin 40 mg AT BEDTIME cephALEXin 500 mg q 6 H doxycycline 100 mg q 12 h 7am/7pm enoxaparin 40 mg q 12 HR gabapentin 600 mg TID insulin 70/30 NPH/regular units/mL 75 Units DAILY wDINNER [START ON 03/11/2018] insulin 70/30 NPH/regular units/mL 85 Units DAILY WITH BREAKFAST insulin lispro AT BEDTIME insulin lispro w MEALS lisinopril 20 mg DAILY metFORMIN 500 mg BID w MEALS metoprolol tartrate (short acting) 12.5 mg q 12 H montelukast 10 mg AT BEDTIME white petrolatum-mineral oil DAILY PRN: acetaminophen 650 mg q 6 H PRN dextrose 15 g PRN Or glucagon 1 mg PRN Or dextrose 50% in water 12.5 g PRN Vital Signs: BP 129/85 Pulse 95 Temp (Src) 98.2 (Oral) Resp 18 Ht 5' 6" (1.68m) Wt 259 lb (117.5kg) SpO2 96% BMI 41.82 kg/(m2). Physical Exam Performed: GENERAL: GENERAL APPEARANCE NCCC: well appearing, alert and in no acute distress HEART: HEART CCF: regular rate and rhythm, normal, S1, S2, no lifts, heaves, or thrills, PMI not displaced, no murmur, gallop or rub LUNGS: LUNGS CCF: clear to percussion and auscultation and no rales ABDOMEN: ABDOMEN: Soft, nontender, bowel sounds normal, no palpable organomegaly, no bruits. EXTREMITY: EXTREMITY EXAM: Normal exam of the extremities. No clubbing, cyanosis, or edema. NEURO: Grossly normal cognition, motor function, and cranial nerves III-XII PULSES: 2+ radial, 2+ dorsalis pedis, 2+ carotid WOUND: Right gluteal early abscess improved from yesterday. Area of induration roughly 2cm, improved surrounding erythema Lines, Drains, and Airways Line Peripheral 03/06/18 2310 Right Antecubital 22 Gauge 3 days Data: I have reviewed all of the lab / imaging / pathology from today. Pertinent study results include: Cr 1.22 Recent Labs 03/09/18 0816 03/06/18 0356 03/04/18 0455 WBC 13.73* 13.39* 12.55* RBC 3.46* 3.52* 3.52* HB 10.7* 11.0* 10.9* HCT 33.0* 33.2* 33.1* PLT 355 294 247 MCV 95.4* 94.3 94.0 MCH 30.9 31.3 31.0 MPV 9.8 10.9 10.1 RDW 12.3 12.2 12.3 Recent Labs 03/10/18 0105 03/09/18 0116 03/08/18 0238 03/02/18 0323 03/01/18 1100 GLUC 163* 132* 175* < > 297* < > 735* NA 142 142 140 < > 136 < > 127* K 3.8 3.8 3.8 < > 3.7 < > 4.0 CHLOR 105 105 107 < > 103 < > 91* CO2 28 27 25 < > 22 < > 20* CREAT 1.22* 1.02* 1.15* < > 1.23* < > 1.51* BUN 22* 19* 21* < > 36* < > 55* ANION 13 14 12 < > 15 < > 20* CA 8.3* 8.7 8.8 < > 8.1* < > 9.3 TPROT -- -- -- -- 7.0 -- 8.2 ALB -- -- -- -- 2.7* -- 3.2* TBILI -- -- -- -- 0.6 -- 0.9 ALKPHOS -- -- -- -- 106 -- 122* AST -- -- -- -- 14 -- 19 ALT -- -- -- -- 23 -- 28 < > = values in this interval not displayed. See results in EHR. ASSESSMENT AND PLAN Assessment AND Plan, all Hosp Problems Active Hospital Problems as of 03/10/2018 Noted - Resolved A * (Principal)Diabetes mellitus type 2 with ketoacidosis, uncontrolled (HCC) 03/01/2018 - Present Current Assessment AND Plan - Patient presented initially with DKA, that has resolved in the ED with 8 units of regular insulin subq and 4 L NaCl - 85 units 70/30 with breakfast and 75 units with dinner, +SSI; metformin 500 mg BID (not increased d/t reduced GFR) - A1c 14.7 - Diabetes education completed - daily BMPs - carb controlled heart healthy diet - endocrinology following Patient has displayed a lack of ability to administer her insulin regime without assistance. After discussions with the [facility] CM there are not the support or resources to assist at [facility]. There is concern that without help administering her twice a day insulin she is at danger for becoming hypo or hyperglycemic. B Abscess, gluteal, right 03/06/2018 - Present Current Assessment AND Plan -Not amenable to I/D, overall improving -C/w Doxy and Keflex Unprioritized UTI (urinary tract infection) 03/01/2018 - Present Current Assessment AND Plan - Sepsis secondary UTI. Resolved - Abx as above for the gluteal abscess - Urine culture- mixed skin dani; Blood cultures NGTD - Patient reports symptomatic improvement HTN (hypertension) 03/01/2018 - Present Current Assessment AND Plan - C/w amlodipine, lisinopril, metoprolol - Will slowly titrate up as BP tolerates Degenerative joint disease 03/01/2018 - Present Current Assessment AND Plan -Monitor -will give tylenol for pain control PRN. Diabetic ketoacidosis (HCC) 03/01/2018 - Present Current Assessment AND Plan Resolved- see above Microscopic hematuria 03/01/2018 - Present Current Assessment AND Plan - Seen on UA. This is likely 2/2 UTI. - Will need repeat testing as OP to make sure of resolution. Leukocytosis 03/06/2018 - Present Current Assessment AND Plan -Resolved Tachycardia -Possibly 2/2 to gluteal abscess -C/w abx as above Obesity, Class III, BMI >= 40 03/10/2018 - Present Current Assessment AND Plan -Counseled diet and exercise Medication and Non-Pharmacologic VTE Prophylaxis/Anticoagul ants Anticoagulant AND Antiplatelet Medications Start Dose Route Frequency Ordered Stop 03/02/18 2110 enoxaparin 40 mg injection (LOVENOX) (Medical At Risk ) 40 mg SUBCUTANEOUS EVERY 12 HOURS 03/02/18 1117 -- 03/02/18 1600 aspirin 81 mg chewable tab(s) 81 mg ORAL DAILY 03/02/18 1545 -- 03/01/18 1715 pneumatic compression stockings (vt,oh) VTE Prophylaxis: VTE prophylaxis appropriate Plan of care discussed with: Attending and Patient SIGNATURE: Jackson Williamson DO PATIENT NAME: Cinthya Castillo DATE: March 10, 2018 TIME: 2:37 PM PAGER/CONTACT #: [phone] Normal [facility] Basic Panelon 03-09-2018 Creatinine mass conc 1.02 mg/dL High 0.51-0.95 [facility] Comment on above: Performed By: #### U RIN2 #### [facility] [address] [place], [place] [address] Anion gap molar conc 14 mmol/L Normal 8-16 [facility] Comment on above: Performed By: #### U RIN2 #### [facility] [address] [place], [place] [address] Calcium mass conc 8.7 mg/dL Normal 8.5-10.1 [facility] Comment on above: Performed By: #### U RIN2 #### [facility] [address] [place] [address] CO2 molar conc 27 mmol/L Normal 21-32 [facility] Comment on above: Performed By: #### U RIN2 #### [facility] [address] [place] [address] Glucose mass conc 132 mg/dL High 70-99 [facility] Comment on above: Performed By: #### U RIN2 #### [facility] [address] [place] [address] Urea nitrogen mass conc 19 mg/dL High 7-18 [facility] Comment on above: Performed By: #### U RIN2 #### [facility] [address] [place] [address] Chloride molar conc 105 mmol/L Normal 98-107 [facility] Comment on above: Performed By: #### U RIN2 #### [facility] [address] [place] [address] Potassium molar conc 3.8 mmol/L Normal 3.5-5.1 [facility] Comment on above: Performed By: #### U RIN2 #### [facility] [address] [place] [address] Sodium molar conc 142 mmol/L Normal 136-145 [facility] Comment on above: Performed By: #### U RIN2 #### [facility] [address] [place] [address] CASE MANAGEMon 03-09-2018 CASE MANAGEM HNO ID: [id number] Author: Radha PattenRn) SUNDEEP Thomas Service: Care Management Author Type: Registered Nurse Type: Care Mgt Progress Note Filed: 03/09/2018 4:14 PM Note Text: CARE MANAGEMENT PROGRESS NOTE SERVICE DATE: 03/09/2018 SERVICE TIME: 4:08 PM LOS: 8 days FREEDOM OF CHOICE GIVEN: Yes discussed The patient and/or family has been given the Provider List: Yes Provider List: Group Home Facility Preference: [facility] Needs Prior to Discharge: Accepting Facility;Discharge Transportation SPoke to Soren Santamaria CM for patient, earlier today who stated patient does not have SSA or services from board. Stated patient is own guardian and if needs to transfer to facility for medical management, she would need to agree. Spoke to Elisha Jimenez, regarding medical management need as there is noone able to administer bid doses of insulin. Spoke to home care provider Joyce Edouard who confirmed they provide meals, laundry and assist with telling residents when to take meds but cannot administer. Spoke to patient at bedside regarding possible SNF d/c, discussed FOC and patient chose [facility]. Spoke to Karen Morales, Elisha CM regarding patient likely need for SNF d/c for med management. Will place referral and continue to follow. SIGNATURE: Radha Thomas RN PATIENT NAME: Cinthya Castillo DATE: March 09, 2018 TIME: 4:08 PM PAGER/CONTACT #: [phone] [facility] CASE MANAGEM HNO ID: [id number] Author: Radha (Rn) SUNDEEP Thomas Service: Care Management Author Type: Registered Nurse Type: Care Mgt Progress Note Filed: 03/09/2018 1:41 PM Note Text: CARE MANAGEMENT PROGRESS NOTE SERVICE DATE: 03/09/2018 SERVICE TIME: 1:40 PM LOS: 8 days FREEDOM OF CHOICE GIVEN: Yes discussed The patient and/or family has been given the Provider List: Yes Provider List: Group Home Facility Preference: [facility] Spoke to patient at bedside regarding possibility of SNF for med management. Patient agreeable. FOC provided, choice is [facility]. Will await acceptance. SIGNATURE: Radha Thomas RN PATIENT NAME: Cinthya Castillo DATE: March 09, 2018 TIME: 1:40 PM PAGER/CONTACT #: [phone] [facility] Hemogram/Diffon 03-09-2018 Abs Immature Grans 0.54 thou/cmm High 0.00-0.05 [facility] Comment on above: Performed By: #### U RIN2 #### [facility] [address] [place] [address] Abs. Baso 0.08 thou/cmm Normal 0.01-0.08 [facility] Comment on above: Result Comment: Smea r scanned; tech agrees with automated differential Performed By: #### U RIN2 #### [facility] [address] [place] [address] Abs. [place] 1.41 thou/cmm High 0.27-0.70 [facility] Comment on above: Performed By: #### U RIN2 #### [facility] [address] [place] [address] Abs. Neut (ANC) 9.86 thou/cmm High 1.56-6.13 [facility] Comment on above: Performed By: #### U RIN2 #### [place] [address] Basophils/100 WBC (Bld) 0.6 % Normal A [facility] Comment on above: Performed By: #### U RIN2 #### [facility] [address] [place] [address] Eosinophils #/vol (Bld) 0.37 thou/cmm High 0.00-0.31 [facility] Comment on above: Performed By: #### U RIN2 #### [place] [address] Eosinophils/100 WBC (Bld) 2.7 % Normal [facility] Comment on above: Performed By: #### U RIN2 #### [facility] [address] [place] [address] Immature Grans 3.90 % Normal [facility] Comment on above: Performed By: #### U RIN2 #### [facility] [address] [place] [address] Lymphocytes #/vol (Bld) 1.47 thou/cmm Normal 1.18-3.74 [facility] Comment on above: Performed By: #### U RIN2 #### [place] [address] Lymphocytes/100 WBC (Bld) 10.7 % Normal [facility] Comment on above: Performed By: #### U RIN2 #### [facility] [address] [place] [address] Monocytes/100 WBC (Bld) 10.3 % Normal [facility] Comment on above: Performed By: #### U RIN2 #### [facility] [address] [place] [address] Seg Neutrophil 71.8 % Normal [facility] Comment on above: Performed By: #### U RIN2 #### [facility] [address] [place] [address] Erythrocyte distribution width Ratio (RBC) 12.3 % Normal 11.7-14.4 [facility] Comment on above: Performed By: #### U RIN2 #### [facility] [address] [place] [address] Hematocrit Volume Fraction (Bld) 33.0 % Low 34.1-44.9 [facility] Comment on above: Performed By: #### U RIN2 #### [facility] [address] [place] [address] Hemoglobin mass conc (Bld) 10.7 g/dL Low 11.2-15.7 [facility] Comment on above: Performed By: #### U RIN2 #### [facility] [address] [place] [address] MCH Entitic mass (RBC) 30.9 pg Normal 25.6-32.2 [facility] Comment on above: Performed By: #### U RIN2 #### [facility] [address] [place] [address] MCHC mass conc (RBC) 32.4 % Normal 31.6-34.8 [facility] Comment on above: Performed By: #### U RIN2 #### [facility] [address] [place] [address] MCV Entitic volume (RBC) 95.4 fL High 79.4-94.8 [facility] Comment on above: Performed By: #### U RIN2 #### [facility] [address] [place] [address] Platelet mean volume Entitic volume (Bld) 9.8 fL Normal 9.4-12.3 [facility] Comment on above: Performed By: #### U RIN2 #### [facility] [address] [place] [address] Platelets #/vol (Bld) 355 thou/cmm Normal 182-369 A [facility] Comment on above: Performed By: #### U RIN2 #### [facility] [address] [place] [address] RBC #/vol (Bld) 3.46 mil/cmm Low 3.93-5.22 [facility] Comment on above: Performed By: #### U RIN2 #### [facility] [address] [place] [address] RDW SD 42.5 fl Normal 36.4-46.3 [facility] Comment on above: Performed By: #### U RIN2 #### [facility] [address] [place] [address] WBC #/vol (Bld) 13.73 thou/cmm High 3.98-10.04 [facility] Comment on above: Performed By: #### U RIN2 #### [facility] [address] [place] [address] PLAN OF CAREon 03-09-2018 PLAN OF CARE HNO ID: [id number] Author: Savana Souza Service: Endocrinology Author Type: Physician Type: Plan of Care Filed: 03/09/2018 8:50 AM Note Text: Plan of care: Component Latest Ref Rng AND Units 03/08/2018 03/08/2018 03/08/2018 03/08/2018 03/09/2018 7:16 AM 10:58 AM 5:07 PM 9:09 PM GLUCOSE METER 70 - 99 mg/dL 196 (H) 240 (H) 217 (H) 116 (H) 171 (H) Blood sugars better controlled Continue current regimen: Insulin 70/30: 80 units in the morning and 70 units with dinner + ISS AC/HS Will follow Savana Souza MD [facility] PROGRESSon 03-09-2018 Protein mass conc HNO ID: [id number] Author: Jackson Williamson DO Service: Hospital Medicine Author Type: Resident Type: Progress Notes Filed: 03/09/2018 4:24 PM Note Text: Attestation signed by Walter Gross at 03/09/2018 5:34 PM Feeling better, up walking in room without difficulties. No new complaints. States right buttock discomfort is better. Afebrile. VSS. NAD Lungs: Clear CV: RRR Abd: Obese, soft w/o tenderness Labs: Reviewed. WBC=13.73 I saw and evaluated the patient. Discussed with the resident and agree with resident's findings and plan as documented in the resident's note. Plan: self storage manager input noted. Patient wiling to go to [facility] for short term. Walter Gross MD SERVICE DATE: 03/09/2018 SERVICE TIME: 4:23 PM HOUSE MEDICINE SERVICE PROGRESS NOTE HPI: Patient is a 57 yo F with pmhx of HTN, DM, developmental delay is presenting after having a fall at which time she was noted to be in DKA and found to have a UTI. She was given 8U of insulin and 4L of IV fluids with resolution of DKA. Patient's BG is trending down from 700s to 297. A1c found to be 14.7. Poor control likely due to lack of resources and patient's developmental delay. Patient has a case coordinator who has helped with her medications in the past. SUBJECTIVE Interval events: Improved. Right buttock pain improving. Blood sugars better controlled. OBJECTIVE Medications: IV infusions: Scheduled: amLODIPine 10 mg DAILY aspirin 81 mg DAILY atorvastatin 40 mg AT BEDTIME cephALEXin 500 mg q 6 H doxycycline 100 mg q 12 h 7am/7pm enoxaparin 40 mg q 12 HR gabapentin 600 mg TID insulin 70/30 NPH/regular units/mL 70 Units DAILY wDINNER insulin 70/30 NPH/regular units/mL 80 Units DAILY WITH BREAKFAST insulin lispro AT BEDTIME insulin lispro w MEALS lisinopril 20 mg DAILY metFORMIN 500 mg BID w MEALS montelukast 10 mg AT BEDTIME white petrolatum-mineral oil DAILY PRN: acetaminophen 650 mg q 6 H PRN dextrose 15 g PRN Or glucagon 1 mg PRN Or dextrose 50% in water 12.5 g PRN Vital Signs: BP 111/67 Pulse 105 Temp (Src) 98.2 (Oral) Resp 20 Ht 5' 6" (1.68m) Wt 259 lb (117.5kg) SpO2 95% BMI 41.82 kg/(m2). Physical Exam Performed: GENERAL: GENERAL APPEARANCE NCCC: well appearing, alert and in no acute distress HEART: HEART CCF: regular rate and rhythm, normal, S1, S2, PMI not displaced, no murmur, gallop or rub LUNGS: LUNGS CCF: clear to percussion and auscultation and no rales ABDOMEN: ABDOMEN: Soft, nontender, bowel sounds normal, no palpable organomegaly, no bruits. EXTREMITY: EXTREMITY EXAM: Normal exam of the extremities. No clubbing, cyanosis, or edema. SKIN: Skin color, texture, turgor normal. No rashes or lesions. Right gluteal early abscess with roughly 2cm diameter induration, improved surrounding erythema, less tender to palpation NEURO: Cranial nerves II-XII intact PULSES: 2+ radial, 2+ dorsalis pedis, 2+ carotid Lines, Drains, and Airways Line Peripheral 03/06/18 2310 Right Antecubital 22 Gauge 2 days Data: I have reviewed all of the lab / imaging / pathology from today. Pertinent study results include: 13.73 Recent Labs 03/09/18 0816 03/06/18 0356 03/04/18 0455 WBC 13.73* 13.39* 12.55* RBC 3.46* 3.52* 3.52* HB 10.7* 11.0* 10.9* HCT 33.0* 33.2* 33.1* PLT 355 294 247 MCV 95.4* 94.3 94.0 MCH 30.9 31.3 31.0 MPV 9.8 10.9 10.1 RDW 12.3 12.2 12.3 Recent Labs 03/09/18 0116 03/08/18 0238 03/07/18 0555 03/02/18 0323 03/01/18 1100 GLUC 132* 175* 170* < > 297* < > 735* NA 142 140 138 < > 136 < > 127* K 3.8 3.8 4.0 < > 3.7 < > 4.0 CHLOR 105 107 106 < > 103 < > 91* CO2 27 25 27 < > 22 < > 20* CREAT 1.02* 1.15* 1.01* < > 1.23* < > 1.51* BUN 19* 21* 16 < > 36* < > 55* ANION 14 12 9 < > 15 < > 20* CA 8.7 8.8 8.7 < > 8.1* < > 9.3 TPROT -- -- -- -- 7.0 -- 8.2 ALB -- -- -- -- 2.7* -- 3.2* TBILI -- -- -- -- 0.6 -- 0.9 ALKPHOS -- -- -- -- 106 -- 122* AST -- -- -- -- 14 -- 19 ALT -- -- -- -- 23 -- 28 < > = values in this interval not displayed. See results in EHR. Standardized Care Interventions: Labs: Routine blood work indicated for tomorrow on account of: suspected infection ASSESSMENT AND PLAN Assessment AND Plan, all Hosp Problems Active Hospital Problems as of 03/09/2018 Noted - Resolved A * (Principal)Diabetes mellitus type 2 with ketoacidosis, uncontrolled (HCC) 03/01/2018 - Present Current Assessment AND Plan - Patient presented initially with DKA, that has resolved in the ED with 8 units of regular insulin subq and 4 L NaCl - 80 units 70/30 with breakfast and 70 units with dinner, +SSI; metformin 500 mg BID (not increased d/t reduced GFR) - A1c 14.7 - Diabetes education completed - daily BMPs - carb controlled heart healthy diet - endocrinology following Poor control 2/2 lack of medication compliance - consult CM and SW for home going resources B Abscess, gluteal, right 03/06/2018 - Present Current Assessment AND Plan -Not amenable to I/D, overall improving -C/w Doxy and Keflex Unprioritized UTI (urinary tract infection) 03/01/2018 - Present Current Assessment AND Plan - Sepsis secondary UTI - Abx as above for the gluteal abscess - Urine culture- mixed skin dani; Blood cultures NGTD - Patient reports symptomatic improvement HTN (hypertension) 03/01/2018 - Present Current Assessment AND Plan - C/w amlodipine and lisinopril. - Will slowly titrate up as BP tolerates Degenerative joint disease 03/01/2018 - Present Current Assessment AND Plan -Monitor -will give tylenol for pain control PRN. Diabetic ketoacidosis (HCC) 03/01/2018 - Present Current Assessment AND Plan Resolved- see above Microscopic hematuria 03/01/2018 - Present Current Assessment AND Plan - Seen on UA. This is likely 2/2 UTI. - Will need repeat testing as OP to make sure of resolution. Leukocytosis 03/06/2018 - Present Current Assessment AND Plan -Tachycardic -Possibly 2/2 to gluteal abscess -C/w abx as above Medication and Non-Pharmacologic VTE Prophylaxis/Anticoagul ants Anticoagulant AND Antiplatelet Medications Start Dose Route Frequency Ordered Stop 03/02/18 2110 enoxaparin 40 mg injection (LOVENOX) (Medical At Risk ) 40 mg SUBCUTANEOUS EVERY 12 HOURS 03/02/18 1117 -- 03/02/18 1600 aspirin 81 mg chewable tab(s) 81 mg ORAL DAILY 03/02/18 1545 -- 03/01/18 1715 pneumatic compression stockings (vt,sc) VTE Prophylaxis: VTE prophylaxis appropriate Plan of care discussed with: Attending and Patient SIGNATURE: Jackson Williamson DO PATIENT NAME: Cinthya Castillo DATE: March 09, 2018 TIME: 4:23 PM PAGER/CONTACT #: [phone] [facility] ALLIED HEALTHon 03-08-2018 ALLIED HEALTH HNO ID: [id number] Author: Cinthya (Rn) SUNDEEP Maloney Service: Diabetes Education Author Type: Registered Nurse Type: Allied Health Filed: 03/08/2018 3:01 PM Note Text: DIABETES EDUCATION PROGRESS NOTE SERVICE DATE: 03/08/2018 SERVICE TIME: 5405 RECOMMENDATIONS: Patient needs to follow-up with primary care physician after discharge. Prescriptions for diabetic supplies -insulin. Patient demonstrated correct use of insulin pen. Patient Stated correct dose of 70 units in the morning and 70 units in the evening-instructed to take with meal. The Magazine [employer] ,Clifton Murray, was left a message to call so she can be here for diabetes education with no return call. Would recommend supervision for patient at home in testing blood sugar and taking insulin due to Developmental disability. PATIENT HISTORY/ASSESSMENT: Previously diagnosed: Type 2 Treatment prior to hospitalization: Insulin: Lantus and Humalog-not taking Has meter: Frequency of self-blood glucose monitoring: daily times per day. Usual blood glucose results at home: . TOPIC(S): Survival Skills: Medication therapy: Injectables - Pre-mixed (70% N and 30% R) Injectable instructions - Storage, Selection/rotation, Injection technique, Injection site and Disposal of sharps Acute complications: Hypoglycemia and Hyperglycemia patient able to state correct dose Patient Education/Health Promotion: Diet, Exercise and Self management and follow up Diabetes Management: when to call the doctor EDUCATION: Cognitive ability: Developmentally Disabled. Motivation to learn: Interested. Barriers to learning: None Family support: case coordinator called Education Type: Individual instruction Written instruction - handouts Verbal instruction Response to education: States/Identifies. Education provided to: Patient. Teachback method used. Time Spent (Minutes): 15 SIGNATURE: Cinthya Maloney RN PATIENT NAME: Cinthya Castillo DATE: March 08, 2018 TIME: 2:53 PM PAGER: [phone] Normal [facility] Basic Panelon 03-08-2018 Creatinine mass conc 1.15 mg/dL High 0.51-0.95 [facility] Comment on above: Performed By: #### U RIN2 #### [place] [address] Anion gap molar conc 12 mmol/L Normal 8-16 [facility] Comment on above: Performed By: #### U RIN2 #### [place] [address] CO2 molar conc 25 mmol/L Normal 21-32 [facility] Comment on above: Performed By: #### U RIN2 #### [place] [address] Glucose mass conc 175 mg/dL High 70-99 [facility] Comment on above: Performed By: #### U RIN2 #### [facility] [address] [place], [place] [address] Urea nitrogen mass conc 21 mg/dL High 7-18 A [facility] Comment on above: Performed By: #### U RIN2 #### [facility] [address] [place], [place] [address] Calcium mass conc 8.8 mg/dL Normal 8.5-10.1 [facility] Comment on above: Performed By: #### U RIN2 #### [facility] [address] [place], [place] [address] Chloride molar conc 107 mmol/L Normal 98-107 [facility] Comment on above: Performed By: #### U RIN2 #### [facility] [address] [place], [place] [address] Potassium molar conc 3.8 mmol/L Normal 3.5-5.1 [facility] Comment on above: Performed By: #### U RIN2 #### [facility] [address] [place], [place] [address] Sodium molar conc 140 mmol/L Normal 136-145 [facility] Comment on above: Performed By: #### U RIN2 #### [facility] [address] [place], [place] [address] CASE MANAGEMon 03-08-2018 CASE MANAGEM HNO ID: [id number] Author: Vianey Arnold RN Service: Care Management Author Type: Registered Nurse Type: Care Mgt Progress Note Filed: 03/08/2018 2:39 PM Note Text: CARE MANAGEMENT PROGRESS NOTE SERVICE DATE: 03/08/2018 SERVICE TIME: 2:33 PM LOS: 7 days Needs Prior to Discharge: To Be Determined Chart reviewed. Poor diabetes control likely due to lack of resources and patient's developmental delay. Patient will require medication assistance at discharge. Message left for patient's advocate Stefanie Garcia RN Care Manger ([phone]). Await call back. Will continue to follow clinical course for further DC planning needs. SIGNATURE: Vianey Arnold RN PATIENT NAME: Cinthya Castillo DATE: March 08, 2018 TIME: 2:33 PM PAGER/CONTACT #: [phone] [facility] CONSULT PROGon 03-08-2018 Protein mass conc HNO ID: [id number] Author: Savana Souza Service: Endocrinology Author Type: Physician Type: Consult Progress Note Filed: 03/08/2018 10:09 AM Note Text: ENDOCRINOLOGY PROGRESS NOTE PATIENT NAME: Cinthya Castillo SERVICE DATE: 03/08/18 SUBJECTIVE Interval History: Blood sugars elevated, mostly after breakfast. CURRENT MEDICATION: Current hospital medications: acetaminophen 650 mg tab(s) (TYLENOL) 650 mg ORAL q 6 H PRN amLODIPine 10 mg tab(s) (NORVASC) 10 mg ORAL DAILY aspirin 81 mg chewable tab(s) 81 mg ORAL DAILY atorvastatin 40 mg tab(s) (LIPITOR) 40 mg ORAL AT BEDTIME cephALEXin 500 mg cap(s) (KEFLEX) 500 mg ORAL q 6 H dextrose 40 % 15 g 15 g ORAL PRN dextrose 50% in water 25 mL syringe 12.5 g INTRAVENOUS PRN doxycycline hyclate 100 mg cap(s) (VIBRAMYCIN) 100 mg ORAL q 12 h 7am/7pm enoxaparin 40 mg injection (LOVENOX) 40 mg SUBCUTANEOUS q 12 HR gabapentin 600 mg cap(s) (NEURONTIN) 600 mg ORAL TID glucagon 1 mg injection (GLUCAGEN) 1 mg INTRAMUSCULAR PRN insulin 70/30 NPH/regular units/mL 70 Units inj pen (mixed intermediate and short acting) (HumuLIN 70/30, NovoLIN 70/30) 70 Units SUBCUTANEOUS DAILY wDINNER insulin 70/30 NPH/regular units/mL 70 Units inj pen (mixed intermediate and short acting) (HumuLIN 70/30, NovoLIN 70/30) 70 Units SUBCUTANEOUS DAILY WITH BREAKFAST insulin lispro pen (rapid acting) (HumaLOG KWIKPEN) SUBCUTANEOUS w MEALS insulin lispro pen (rapid acting) (HumaLOG KWIKPEN) SUBCUTANEOUS AT BEDTIME lisinopril 20 mg tab(s) (ZESTRIL, PRINIVIL) 20 mg ORAL DAILY metFORMIN 500 mg tab(s) (GLUCOPHAGE) 500 mg ORAL BID w MEALS montelukast 10 mg tab(s) (SINGULAIR) 10 mg ORAL AT BEDTIME white petrolatum-mineral oil cream (EUCERIN) TOPICAL DAILY CURRENT ALLERGIES: ALLERGIES Allergen Reactions - Penicillin Unknown Pt unaware of reaction REVIEW OF SYSTEMS: SYSTEMIC: no nausea OBJECTIVE PHYSICAL EXAM: BP 145/78 Pulse 101 Temp 36.9 ?C (98.4 ?F) (Oral) Resp 18 Ht 167.6 cm (5' 6") Wt 117.5 kg (259 lb) SpO2 99% BMI 41.80 kg/m? DATA: Diagnostic tests reviewed for today's visit: Component GLUCOSE METER Latest Ref Rng AND Units 70 - 99 mg/dL 03/06/2018 7:15 AM 196 (H) 03/06/2018 11:09 AM 276 (H) 03/06/2018 4:57 PM 207 (H) 03/06/2018 8:50 PM 179 (H) 03/07/2018 7:41 AM 179 (H) 03/07/2018 11:04 AM 307 (H) 03/07/2018 4:34 PM 210 (H) 03/07/2018 8:51 PM 114 (H) 03/08/2018 196 (H) Component Latest Ref Rng AND Units 03/06/2018 03/07/2018 03/08/2018 Sodium 136 - 145 mEq/L 138 138 140 Potassium 3.5 - 5.1 mEq/L 3.7 4.0 3.8 Chloride 98 - 107 mEq/L 103 106 107 CO2 21 - 32 mEq/L 26 27 25 Glucose 70 - 99 mg/dL 206 (H) 170 (H) 175 (H) BUN 7 - 18 mg/dL 16 16 21 (H) Creatinine 0.51 - 0.95 mg/dL 1.09 (H) 1.01 (H) 1.15 (H) Calcium 8.5 - 10.1 mg/dL 8.6 8.7 8.8 Anion Gap 8 - 16 13 9 12 eGFR >60mL/min/1.73m2 51.88 56.65 48.77 ASSESSMENT AND PLAN 57 year old with PMH of HTN, Type 2 DM and developmental delay who was admitted after having a fall and found to have a UTI. Endocrinology consulted for management of: Uncontrolled Type 2 DM - Increase insulin 70/30 to 80 units in the morning - Continue insulin 70/30 70 units with dinner - Continue ISS #2 AC and #1 HS - Patient is also on Metformin 1,000 mg BID Savana Souza MD [facility] PROGRESSon 12-18-2018 Protein mass conc HNO ID: [id number] Author: Jackson Williamson DO Service: Hospital Medicine Author Type: Resident Type: Progress Notes Filed: 03/08/2018 3:29 PM Note Text: Attestation signed by Walter Gross at 03/08/2018 5:21 PM Sitting up in chair. Feeling better. States she had episode this AM of some bright red blood on toilet paper after a soft BM. She is unsure if this had ever occurred in the past. Otherwise she is feeling well with no new complaints. NAD. Afebrile. VSS. 145/78 Lungs: Clear CV: RRR Abd: Soft, no tenderness Labs: Reviewed, blood sugars remain elevated. Endo input noted I saw and evaluated the patient. Discussed with the resident and agree with resident's findings and plan as documented in the resident's note. Plan: Education on diabetes. Continue antibiotics as noted in resident's note. Adjust BP meds as required. Arrange home monitoring for medication use. Hope to discharge soon. Walter Gross MD SERVICE DATE: 03/08/2018 SERVICE TIME: 3:28 PM HPI: Patient is a 57 yo F with pmhx of HTN, DM, developmental delay is presenting after having a fall at which time she was noted to be in DKA and found to have a UTI. She was given 8U of insulin and 4L of IV fluids with resolution of DKA. Patient's BG is trending down from 700s to 297. A1c found to be 14.7. Poor control likely due to lack of resources and patient's developmental delay. Patient has a case coordinator who has helped with her medications in the past. SUBJECTIVE Interval events: Continues to complain of right buttock pain, unchanged from yesterday. Blood sugars remain elevated in the morning. OBJECTIVE Medications: IV infusions: Scheduled: amLODIPine 10 mg DAILY aspirin 81 mg DAILY atorvastatin 40 mg AT BEDTIME cephALEXin 500 mg q 6 H doxycycline 100 mg q 12 h 7am/7pm enoxaparin 40 mg q 12 HR gabapentin 600 mg TID insulin 70/30 NPH/regular units/mL 70 Units DAILY wDINNER [START ON 03/09/2018] insulin 70/30 NPH/regular units/mL 80 Units DAILY WITH BREAKFAST insulin lispro AT BEDTIME insulin lispro w MEALS lisinopril 20 mg DAILY metFORMIN 500 mg BID w MEALS montelukast 10 mg AT BEDTIME white petrolatum-mineral oil DAILY PRN: acetaminophen 650 mg q 6 H PRN dextrose 15 g PRN Or glucagon 1 mg PRN Or dextrose 50% in water 12.5 g PRN Vital Signs: BP 145/78 Pulse 101 Temp (Src) 98.4 (Oral) Resp 18 Ht 5' 6" (1.68m) Wt 259 lb (117.5kg) SpO2 99% BMI 41.82 kg/(m2). Physical Exam Performed: GENERAL: GENERAL APPEARANCE NCCC: well appearing, alert and in no acute distress HEART: HEART CCF: regular rate and rhythm, normal, S1, S2, PMI not displaced, no murmur, gallop or rub LUNGS: LUNGS CCF: clear to percussion and auscultation and no rales ABDOMEN: ABDOMEN: Soft, nontender, bowel sounds normal, no palpable organomegaly, no bruits. EXTREMITY: EXTREMITY EXAM: Normal exam of the extremities. No clubbing, cyanosis, or edema. Right gluteal early abscess unchanged from yesterday. NEURO: Cranial nerves II-XII intact PULSES: 2+ radial, 2+ dorsalis pedis, 2+ carotid Lines, Drains, and Airways Line Peripheral 03/06/18 2310 Right Antecubital 22 Gauge 1 day Data: I have reviewed all of the lab / imaging / pathology from today. Pertinent study results include: Glucose 0700: 196, 1100: 240 Recent Labs 03/06/18 0356 03/04/18 0455 03/03/18 0415 WBC 13.39* 12.55* 12.31* RBC 3.52* 3.52* 3.65* HB 11.0* 10.9* 11.3 HCT 33.2* 33.1* 34.1 PLT 294 247 268 MCV 94.3 94.0 93.4 MCH 31.3 31.0 31.0 MPV 10.9 10.1 10.8 RDW 12.2 12.3 12.3 Recent Labs 03/08/18 0238 03/07/18 0555 03/06/18 0356 03/02/18 0323 03/01/18 1100 GLUC 175* 170* 206* < > 297* < > 735* NA 140 138 138 < > 136 < > 127* K 3.8 4.0 3.7 < > 3.7 < > 4.0 CHLOR 107 106 103 < > 103 < > 91* CO2 25 27 26 < > 22 < > 20* CREAT 1.15* 1.01* 1.09* < > 1.23* < > 1.51* BUN 21* 16 16 < > 36* < > 55* ANION 12 9 13 < > 15 < > 20* CA 8.8 8.7 8.6 < > 8.1* < > 9.3 TPROT -- -- -- -- 7.0 -- 8.2 ALB -- -- -- -- 2.7* -- 3.2* TBILI -- -- -- -- 0.6 -- 0.9 ALKPHOS -- -- -- -- 106 -- 122* AST -- -- -- -- 14 -- 19 ALT -- -- -- -- 23 -- 28 < > = values in this interval not displayed. Recent Labs 03/08/18 1058 03/08/18 0716 03/08/18 0238 03/07/18 20503/07/18 0555 03/06/18 0356 GLUC -- -- 175* -- -- 170* -- 206* GLUCOSEMETER 240* 196* -- 114* < > -- < > -- < > = values in this interval not displayed. See results in EHR. Standardized Care Interventions: Labs: Routine blood work not indicated for tomorrow ASSESSMENT AND PLAN Assessment AND Plan, all Hosp Problems Active Hospital Problems as of 03/08/2018 Noted - Resolved A * (Principal)Diabetes mellitus type 2 with ketoacidosis, uncontrolled (HCC) 03/01/2018 - Present Current Assessment AND Plan - Patient presented initially with DKA, that has resolved in the ED with 8 units of regular insulin subq and 4 L NaCl - 80 units 70/30 with breakfast and 70 units with dinner, +SSI; metformin 500 mg BID (not increased d/t reduced GFR) - A1c 14.7 - Diabetes education completed - daily BMPs - carb controlled heart healthy diet - endocrinology following Poor control 2/2 lack of medication compliance - consult CM and SW for home going resources B Abscess, gluteal, right 03/06/2018 - Present Current Assessment AND Plan -Not amenable to I/D -C/w Doxy and Keflex -Possible General surgery consult for I/D although does not appear drainable yet Unprioritized UTI (urinary tract infection) 03/01/2018 - Present Current Assessment AND Plan - Abx as above for the gluteal abscess - Urine culture- mixed skin dani; Blood cultures NGTD - Patient reports symptomatic improvement HTN (hypertension) 03/01/2018 - Present Current Assessment AND Plan - C/w amlodipine and lisinopril. - Will slowly titrate up as BP tolerates Degenerative joint disease 03/01/2018 - Present Current Assessment AND Plan -Monitor -will give tylenol for pain control PRN. Diabetic ketoacidosis (HCC) 03/01/2018 - Present Current Assessment AND Plan Resolved- see above Microscopic hematuria 03/01/2018 - Present Current Assessment AND Plan - Seen on UA. This is likely 2/2 UTI. - Will need repeat testing as OP to make sure of resolution. Leukocytosis 03/06/2018 - Present Current Assessment AND Plan -Tachycardic -Possibly 2/2 to gluteal abscess -C/w abx as above Medication and Non-Pharmacologic VTE Prophylaxis/Anticoagul ants Anticoagulant AND Antiplatelet Medications Start Dose Route Frequency Ordered Stop 03/02/182109 enoxaparin 40 mg injection (LOVENOX) (Medical At Risk ) 40 mg SUBCUTANEOUS EVERY 12 HOURS 03/02/18 1117 -- 03/02/18 1600 aspirin 81 mg chewable tab(s) 81 mg ORAL DAILY 03/02/18 1545 -- 03/01/18 1715 pneumatic compression stockings (vt,oh) VTE Prophylaxis: VTE prophylaxis appropriate Plan of care discussed with: Attending and Patient SIGNATURE: Jackson Williamson DO PATIENT NAME: Cinthya Castillo DATE: March 08, 2018 TIME: 3:28 PM PAGER/CONTACT #: [phone] [address] [facility] THERAPY NTon 03-08-2018 THERAPY NT HNO ID: [id number] Author: Chon (Pt) Serge Service: Physical Therapy Author Type: Physical Therapist Type: Therapy (PT/OT/Speech/Resp) Filed: 03/08/2018 2:47 PM Note Text: Physical Therapy Treatment SERVICE DATE: 03/08/2018 SERVICE TIME: 1357 to 1420 ROOM: [place] [address] Recommended Discharge Disposition: Outpatient Physical Therapy Recommended Discharge Disposition Comments: Patient at/near baseline for functional mobility but could benefit from continued higher level balance and gait Anticipated Discharge Needs: Physical Assist at Home Physical Assist at Home for: Cleaning;Laundry;Meals ;Stairs;Safety Supervision at Home due to: Impaired cognition (baseline developmental delay) PT Recommendations to Nursing: Ambulate with device;To bathroom;In halls;Transfer to/from chair;OOB for Meals;Utilize bed in chair position;Sit at edge of bed;With assist of 1 person Device: Cane PT 6 Clicks Score: 22 Precautions/Activity Restrictions: Fall Risk Isolation Type: None ASSESSMENT : Progressing towards PT goals with increased gait distance, improving balance and met PT goal as shown by results of modified dynamics gait index score (see below). Patient's mobility and lower extremities strength increased since PT evaluation, improving balance. Patient Disposition at Start of Session: Supine in Bed;Call Grayson in Reach Patient Disposition at End of Session: Supine in Bed;Call Grayson in Reach (delined chair at this time) Tolerated Full Session ( ) Physical Therapy Problem List: Education Deficit;Safety Deficits;Functional Mobility Impairment;Balance Impaired Patient /Caregiver Goals: Go Home Goals for Plan of Care: Rolling with: Independent Transfer supine to/from sit with: Independent Transfer sit to/from stand with: Independent Ambulate with: Modified Independent Distance: 250 Device: Cane Goal: Patient able to perform modified dynamic gait index with score > 10/12 Goal: Patient able to perform stretching/strengtheni ng and balance exercises Progress Toward Goals: Progressing as expected Rehab Potential: Good PLAN: Treatment Frequency (times per week): 5 (1-5) Current admission Treatment Interventions: Education;Energy Conservation Training;Joint Mobility;Strengthening ;Functional Mobility Training;Balance Training;Neuromuscular Re-education Plan of Care developed with: Patient TREATMENT INTERVENTIONS: Therapy Diagnosis: Reduced mobility-other Interventions Provided: Neuromuscular Reeducation (89510);Therapeutic Exercise (96960) Therapeutic Exercise (63176) Treatment Minutes: 12 1 unit Skilled Intervention(s): Verbal cuing provided to increase efficiency and optimize muscle activation. Reinforcement for instruction on supine -> sit, patient pleased she is remembering how to perform log-roll to complete transfer. Chair squats x8 for functional strengthening. Ambulation in room and hallway for endurance training to increase activity tolerance and gait distance. Although patient reports she needs to walk with a cane, when using it she falls into an antalgic gait favoring the cane side. Gait notably more symmetrical without use of the cane. PT held cane during ambulation, keeping it close by in case you need it." Neuromuscular Re-Education (58181) Treatment Minutes: 11 1 unit Skilled Intervention(s): Standing balance activities: With moderate verbal cues for safety/technique/seque ncing, practiced single leg standing at end of elevated bed, so patient could rest hands on bed pre- post- trials. Able to increase duration of SLS bilaterally up to 4 seconds each side. Practiced 2nd, 3rd, 4th elements of mDGI (see below) in hallway, no cane, for ambulation balance training. Total Timed Code Treatment Minutes: 23 Total Treatment Time (minutes): 23 SUBJECTIVE: Current Hospital Course: Chart reviewed and no significant medical updates relevant to therapy were noted. 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 Home Environment Patient Lives With: [facility] ([facility]) Assistance Available: 24 Hour Entry To Home: No Stairs Number Of Stairs To Bed/Bath: 3 Stairs to Bed/Bath with: Unilateral Rail Tub/Shower Type: tub shower Laundry: aids complete Equipment Owned: Cane Prior Functional Level: Within Functional Limits;Required Assistance Assistance Required With: Cleaning;Laundry;Meals ;Medication Management;Shopping;Tr ansportation Prior Functional Level Comments: indep with ADLs; uses cane out in the community OBJECTIVE: CURRENT FUNCTIONAL STATUS: Current Functional Mobility Assist Level Additional Information Rolling ( ) Supine to Sit Modified Independent Sit to Supine Independent Scooting Independent Sit to Stand Supervision Stand to Sit Supervision Bed to Chair Toilet/Commode Gait Supervision (CGA with some balance testing/training) Gait Device: None Gait Distance (feet): 180 Stairs Curb Step Car Transfer General Gait Deviations: Arm swing decreased;Davidson decreased;Step length decreased;Wide base of support Balance: Dynamic Standing Dynamic Standing Balance: Supervision -[facility]: 7: Walk 25 feet or more Functional Performance Test Functional Performance Test: 5x Sit to Stand 5x Sit To Stand (seconds): 17 5x Sit to Stand Gait Device: (arm rests) Modified Dynamic Gait Index Gait on level surface: 3 Gait with speed changes: 3 (requires extra verbal cueing) Horizontal head turns: 2 Vertical head turns: 3 Total Score: 11 Please see discipline specific clinical documentation flowsheet for complete details for this therapy evaluation/treatment. SIGNATURE: Chon Valentine PT PATIENT NAME: Cinthya Castillo DATE: March 08, 2018 TIME: 2:34 PM Normal [facility] THERAPY NT HNO ID: [id number] Author: Portia (Maeve/Omlan Syed Service: Occupational Therapy Author Type: Occupational Therapist Type: Therapy (PT/OT/Speech/Resp) Filed: 03/08/2018 12:27 PM Note Text: Occupational Therapy Treatment SERVICE DATE: 03/08/2018 SERVICE TIME: 1205 to 1217 ROOM: [place] [address] Recommended Discharge Disposition: Home Recommended Discharge Disposition Comments: Return to [facility] with continued assist for IADLs Anticipated Discharge Needs: Physical Assist at Home Physical Assist at Home for: Cleaning;Laundry;Meals ;Stairs;Safety Supervision at Home due to: Impaired cognition (baseline developmental delay) OT Recommendations to Nursing: To Bathroom for ADL?s /and or Toileting;OOB for meals;With assist of 1 person OT 6 Clicks Score: 22 Precautions/Activity Restrictions: Fall Risk Isolation Type: None ASSESSMENT: Pt was found up in the bathroom upon arrival, pt states "I didn't even need to use my cane" Pt does appear steady on feet in room. Patient Disposition at Start of Session: (walking out of bathroom) Patient Disposition at End of Session: OOB in Chair;Call Grayson in Reach (set up for lunch) Tolerated Full Session Occupational Therapy Problem List: Impaired Self Care;Decreased Activity Tolerance;Functional Mobility Impairment Patient /Caregiver Goals: Go Home Goals for Plan of Care: Grooming with: Independent Upper Body Bathing with: Independent Lower Body Bathing with: Independent Lower Body Dressing with: Independent Tolerate (minutes of functional activity): 25 Functional Activity with: Independent Transfer: all functional transfers: independent Progress Toward Goals: Progressing as expected PLAN: Treatment Frequency (times per week): 5 (1-4) Current admission Treatment Interventions: Education;Self Care / Home Management;Functional Mobility Training Plan of Care developed with: Patient TREATMENT INTERVENTIONS: Therapy Diagnosis: Reduced mobility-other;Decreas ed activities of daily living (ADL) Interventions Provided: Self Assisted Management (71954) Self Assisted Management (45256) Treatment Minutes: 25 1 unit Skilled Intervention(s): Provided assistance to complete standing hair washing/grooming/combi ng at sinkside. Pt takes one seated rest break while OT gathers supplies, other than that pt tolerates standing for all other ADL activity. Set up for lunch in chair before leaving. No SOB noted during session. Total Timed Code Treatment Minutes: 25 Total Treatment Time (minutes): 12 SUBJECTIVE: Current Hospital Course: Chart reviewed; Patient is a 57 yo F with pmhx of HTN, DM, developmental delay is presenting after having a fall at which time she was noted to be in DKA and found to have a UTI. 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 Relevant Past Medical History: DM, Developmental delay Patient Report: Pt just coming out of bathroom upon arrival Id like to try to use one of those caps to wash my hair now" Pain: no c/o Home Environment Patient Lives With: [facility]) Assistance Available: 24 Hour Entry To Home: No Stairs Number Of Stairs To Bed/Bath: 3 Stairs to Bed/Bath with: Unilateral Rail Tub/Shower Type: tub shower Laundry: aids complete Equipment Owned: Cane Prior Functional Level: Within Functional Limits;Required Assistance Assistance Required With: Cleaning;Laundry;Meals ;Medication Management;Shopping;Tr ansportation Prior Functional Level Comments: indep with ADLs; uses cane out in the community OBJECTIVE: Cognition/Communicatio n Deficits Responsiveness: Alert Follows Commands: 2-step Commands Psychosocial Deficit: Pt with developmental delay at baseline CURRENT FUNCTIONAL STATUS: Current Activities of Daily Living Assist Level Feeding Set Up Grooming Minimal Assistance Bathing Upper Body Contact Guard Assistance Bathing Lower Body Contact Guard Assistance Dressing Upper Body Independent Dressing Lower Body Stand By Assistance Toileting Independent Instrumental Activities of Daily Living Assist Level Meal/Beverage Prep Total Assistance Light Cleaning Total Assistance Laundry Total Assistance Medication Management with Strategies Total Assistance Functional Mobility Assist Level Rolling Supine to Sit Stand By Assistance Sit to Supine Stand By Assistance Scooting Sit to Stand Stand By Assistance Stand to Sit Stand By Assistance Bed to Chair Toilet/Commode Stand By Assistance Functional Mobility Stand By Assistance (pt did not use cane coming from the bathroom) Activity Tolerance: Standing Activity Standing Activity: standing hair grooming/washing/combi ng at sink Standing Activity Tolerance (in minutes): 10 Edu pt on fall prevention / up with assistance. Pt left in room in chair with calllight within reach. Please see discipline specific clinical documentation flowsheet for complete details for this therapy evaluation/treatment. SIGNATURE: MAEVE Tellez/Jaky PATIENT NAME: Cinthya Castillo DATE: March 08, 2018 TIME: 12:23 PM Normal [facility] Basic Panelon 03-07-2018 Creatinine mass conc 1.01 mg/dL High 0.51-0.95 [facility] Comment on above: Performed By: #### U RIN2 #### [facility] [address] [place] [address] Anion gap molar conc 9 mmol/L Normal 8-16 [facility] Comment on above: Performed By: #### U RIN2 #### [place] [address] CO2 molar conc 27 mmol/L Normal 21-32 [facility] Comment on above: Performed By: #### U RIN2 #### [address], [place] [address] Urea nitrogen mass conc 16 mg/dL Normal 7-18 [facility] Comment on above: Performed By: #### U RIN2 #### [facility] [address] [place] [address] Calcium mass conc 8.7 mg/dL Normal 8.5-10.1 [facility] Comment on above: Performed By: #### U RIN2 #### [facility] [address] [place] [address] Glucose mass conc 170 mg/dL High 70-99 [facility] Comment on above: Performed By: #### U RIN2 #### [facility] [address] [place] [address] Chloride molar conc 106 mmol/L Normal 98-107 [facility] Comment on above: Performed By: #### U RIN2 #### [facility] [address] [place] [address] Potassium molar conc 4.0 mmol/L Normal 3.5-5.1 [facility] Comment on above: Performed By: #### U RIN2 #### [facility] [address] [place] [address] Sodium molar conc 138 mmol/L Normal 136-145 [facility] Comment on above: Performed By: #### U RIN2 #### [facility] [address] [place] [address] CASE MANAGEMon 03-07-2018 CASE MANAGEM HNO ID: [id number] Author: Radha (Rn) SUNDEEP Thomas Service: Care Management Author Type: Registered Nurse Type: Care Mgt Progress Note Filed: 03/07/2018 11:58 AM Note Text: CARE MANAGEMENT PROGRESS NOTE SERVICE DATE: 03/07/2018 SERVICE TIME: 11:56 AM LOS: 6 days Needs Prior to Discharge: To Be Determined Placed telephone call to Clifton Murray at [phone] and left VM for a call back regarding med administration and outpatient PT order. Will continue to follow. SIGNATURE: Radha Thomas RN PATIENT NAME: Cinthya Castillo DATE: March 07, 2018 TIME: 11:56 AM PAGER/CONTACT #: [phone] Normal [facility] CONSULT PROGon 12-17-2018 Protein mass conc HNO ID: [id number] Author: Savana Souza Service: Endocrinology Author Type: Physician Type: Consult Progress Note Filed: 03/07/2018 11:18 AM Note Text: ENDOCRINOLOGY PROGRESS NOTE PATIENT NAME: Cinthya Castillo SERVICE DATE: 03/07/18 SUBJECTIVE Interval History: The patient was switched to insulin 70/30: 70 units BID to facilitate injections. CURRENT MEDICATION: Current hospital medications: acetaminophen 650 mg tab(s) (TYLENOL) 650 mg ORAL q 6 H PRN amLODIPine 10 mg tab(s) (NORVASC) 10 mg ORAL DAILY aspirin 81 mg chewable tab(s) 81 mg ORAL DAILY atorvastatin 40 mg tab(s) (LIPITOR) 40 mg ORAL AT BEDTIME dextrose 40 % 15 g 15 g ORAL PRN dextrose 50% in water 25 mL syringe 12.5 g INTRAVENOUS PRN enoxaparin 40 mg injection (LOVENOX) 40 mg SUBCUTANEOUS q 12 HR gabapentin 600 mg cap(s) (NEURONTIN) 600 mg ORAL TID glucagon 1 mg injection (GLUCAGEN) 1 mg INTRAMUSCULAR PRN insulin 70/30 NPH/regular units/mL 70 Units inj pen (mixed intermediate and short acting) (HumuLIN 70/30, NovoLIN 70/30) 70 Units SUBCUTANEOUS DAILY wDINNER insulin 70/30 NPH/regular units/mL 70 Units inj pen (mixed intermediate and short acting) (HumuLIN 70/30, NovoLIN 70/30) 70 Units SUBCUTANEOUS DAILY WITH BREAKFAST insulin lispro pen (rapid acting) (HumaLOG KWIKPEN) SUBCUTANEOUS w MEALS insulin lispro pen (rapid acting) (HumaLOG KWIKPEN) SUBCUTANEOUS AT BEDTIME lisinopril 20 mg tab(s) (ZESTRIL, PRINIVIL) 20 mg ORAL DAILY metFORMIN 500 mg tab(s) (GLUCOPHAGE) 500 mg ORAL BID w MEALS montelukast 10 mg tab(s) (SINGULAIR) 10 mg ORAL AT BEDTIME vancomycin 1.25 g in D5W 250 mL (VANCOCIN) 1.25 g INTRAVENOUS q 12 HR white petrolatum-mineral oil cream (EUCERIN) TOPICAL DAILY CURRENT ALLERGIES: ALLERGIES Allergen Reactions - Penicillin Unknown Pt unaware of reaction REVIEW OF SYSTEMS: SYSTEMIC: no complains, mentions that "I am waiting for my lunch and dinner already" OBJECTIVE PHYSICAL EXAM: BP 132/77 Pulse 108 Temp 36.9 ?C (98.4 ?F) (Oral) Resp 18 Ht 167.6 cm (5' 6") Wt 117.5 kg (259 lb) SpO2 93% BMI 41.80 kg/m? DATA: Diagnostic tests reviewed for today's visit: Component Latest Ref Rng AND Units 03/06/2018 03/06/2018 03/06/2018 03/06/2018 03/06/2018 03/07/2018 3:56 AM 7:15 AM 11:09 AM 4:57 PM 8:50 PM Sodium 136 - 145 mEq/L 138 138 Potassium 3.5 - 5.1 mEq/L 3.7 4.0 Chloride 98 - 107 mEq/L 103 106 CO2 21 - 32 mEq/L 26 27 Glucose 70 - 99 mg/dL 206 (H) 170 (H) BUN 7 - 18 mg/dL 16 16 Creatinine 0.51 - 0.95 mg/dL 1.09 (H) 1.01 (H) Calcium 8.5 - 10.1 mg/dL 8.6 8.7 Anion Gap 8 - 16 13 9 eGFR >60mL/min/1.73m2 51.88 56.65 GLUCOSE METER 70 - 99 mg/dL 196 (H) 276 (H) 207 (H) 179 (H) 179 (H) ASSESSMENT AND PLAN 57 year old with PMH of HTN, Type 2 DM and developmental delay who was admitted after having a fall and found to have a UTI. Endocrinology consulted for management of: Uncontrolled Type 2 DM - Continue insulin 70/30: 70 units BID with breakfast and dinner - Continue ISS #2 AC and decrease to #1 HS Savana Souza MD [facility] NURSING PROGon 03-07-2018 Protein mass conc HNO ID: [id number] Author: Diomedes (Rn) SUNDEEP Givens Service: Nursing Author Type: Registered Nurse Type: Nursing Progress Note Filed: 03/07/2018 2:34 PM Note Text: Nursing Progress Note Patient Name: Cinthya Castillo Patient Location: [id number]/[id number] 10* __ Daily Note: I spoke with Cliftonkina Murray, pts careers adviser at [facility]. She would like to be here when the pt is given diabetic education if we can call her at [phone] to set up an appointment when the diabetic educators are available. She said the PCP prescribed insulin but the pt stated that she wasn't given instructions on how to take the insulin so she just put it in her fridge. Clifton will make sure that she has someone at home to make sure she takes her medications at home. This note was completed by: Diomedes Givens RN [facility] PROGRESSon 03-07-2018 Protein mass conc HNO ID: [id number] Author: Jackson Williamson DO Service: Hospital Medicine Author Type: Resident Type: Progress Notes Filed: 03/07/2018 4:25 PM Note Text: Attestation signed by Walter Gross at 03/07/2018 10:22 PM History reviewed, patient examined. 57 year old white female, living in [facility], admitted with DKA, s/p fall. States she hadn't used her insulin in a while because she didn't know what to do with her new insulin pens and so she kept it in the refrigerator but did not use. Feeling better. Spoke with her case coordinator who was visiting in the room. Currently resting comfortably, c/o slight discomfort of right buttock which was felt to be a cellulitis yesterday and started on Vancomycin. Afebrile. VSS. NAD Lungs: Clear CV: RRR Abd: Obese, soft Buttock: Half-dollar sized area of induration right buttock, no fluctuance per resident's exam which was observed Appreciate endo input I saw and evaluated the patient. Discussed with the resident and agree with resident's findings and plan as documented in the resident's note. PLAN: Start doxy, Keflex for buttock lesion. Insulin orders per endo. Will try to arrange closer supervision of her taking medications. Walter Gross MD SERVICE DATE: 03/07/2018 SERVICE TIME: 4:25 PM HOUSE MEDICINE SERVICE PROGRESS NOTE HPI: Patient is a 57 yo F with pmhx of HTN, DM, developmental delay is presenting after having a fall at which time she was noted to be in DKA and found to have a UTI. She was given 8U of insulin and 4L of IV fluids with resolution of DKA. Patient's BG is trending down from 700s to 297. A1c found to be 14.7. Poor control likely due to lack of resources and patient's developmental delay. Patient has a case coordinator who has helped with her medications in the past. SUBJECTIVE Interval events: Patient continues to complain of right buttock pain, unchanged from yesterday. Blood sugar continues to down trend on 70 units of 70/30 BID. OBJECTIVE Medications: IV infusions: Scheduled: amLODIPine 10 mg DAILY aspirin 81 mg DAILY atorvastatin 40 mg AT BEDTIME enoxaparin 40 mg q 12 HR gabapentin 600 mg TID insulin 70/30 NPH/regular units/mL 70 Units DAILY wDINNER insulin 70/30 NPH/regular units/mL 70 Units DAILY WITH BREAKFAST insulin lispro w MEALS insulin lispro AT BEDTIME lisinopril 20 mg DAILY metFORMIN 500 mg BID w MEALS montelukast 10 mg AT BEDTIME vancomycin 1.25 g q 12 HR white petrolatum-mineral oil DAILY PRN: acetaminophen 650 mg q 6 H PRN dextrose 15 g PRN Or glucagon 1 mg PRN Or dextrose 50% in water 12.5 g PRN Vital Signs: BP 132/77 Pulse 108 Temp (Src) 98.4 (Oral) Resp 18 Ht 5' 6" (1.68m) Wt 259 lb (117.5kg) SpO2 93% BMI 41.82 kg/(m2). Physical Exam Performed: GENERAL: GENERAL APPEARANCE NCCC: well appearing, alert and in no acute distress HEART: HEART CCF: regular rate and rhythm, normal, S1, S2, PMI not displaced, no murmur, gallop or rub LUNGS: LUNGS CCF: clear to percussion and auscultation and no rales ABDOMEN: ABDOMEN: Soft, nontender, bowel sounds normal, no palpable organomegaly, no bruits. EXTREMITY: EXTREMITY EXAM: Normal exam of the extremities. No clubbing, cyanosis, or edema. Right gluteal early abscess, area of roughly 3cm induration with overlying erythema, tender to palpation SKIN: Skin color, texture, turgor normal. No rashes or lesions. NEURO: Grossly normal cognition, motor function, and cranial nerves III-XII PULSES: 2+ radial, 2+ dorsalis pedis, 2+ carotid, good cap refill Lines, Drains, and Airways Line Peripheral 03/06/18 2310 Right Antecubital 22 Gauge less than 1 day Data: I have reviewed all of the lab / imaging / pathology from today. Pertinent study results include: Recent Labs 03/06/18 0356 03/04/18 0455 03/03/18 0415 WBC 13.39* 12.55* 12.31* RBC 3.52* 3.52* 3.65* HB 11.0* 10.9* 11.3 HCT 33.2* 33.1* 34.1 PLT 294 247 268 MCV 94.3 94.0 93.4 MCH 31.3 31.0 31.0 MPV 10.9 10.1 10.8 RDW 12.2 12.3 12.3 Recent Labs 03/07/18 0555 03/06/18 0356 03/05/18 0554 03/02/18 0323 03/01/18 1100 GLUC 170* 206* 291* < > 297* < > 735* NA 138 138 140 < > 136 < > 127* K 4.0 3.7 4.0 < > 3.7 < > 4.0 CHLOR 106 103 105 < > 103 < > 91* CO2 27 26 25 < > 22 < > 20* CREAT 1.01* 1.09* 1.11* < > 1.23* < > 1.51* BUN 16 16 21* < > 36* < > 55* ANION 9 13 14 < > 15 < > 20* CA 8.7 8.6 8.4* < > 8.1* < > 9.3 TPROT -- -- -- -- 7.0 -- 8.2 ALB -- -- -- -- 2.7* -- 3.2* TBILI -- -- -- -- 0.6 -- 0.9 ALKPHOS -- -- -- -- 106 -- 122* AST -- -- -- -- 14 -- 19 ALT -- -- -- -- 23 -- 28 < > = values in this interval not displayed. Recent Labs 03/07/18 0741 03/07/18 0555 03/06/18 2050 03/06/18 1657 03/06/18 0356 03/05/18 0554 03/01/18 1115 GLUC -- 170* -- -- -- 206* -- 291* < > -- GLUCOSEMETER 179* -- 179* 207* < > -- < > -- < > -- GLUCOSEPOC -- -- -- -- -- -- -- -- -- 679* < > = values in this interval not displayed. See results in EHR. Standardized Care Interventions: Labs: Routine blood work indicated for tomorrow on account of: suspected infection ASSESSMENT AND PLAN Assessment AND Plan, all Hosp Problems Active Hospital Problems as of 03/07/2018 Noted - Resolved A * (Principal)Diabetes mellitus type 2 with ketoacidosis, uncontrolled (HCC) 03/01/2018 - Present Current Assessment AND Plan - Patient presented initially with DKA, that has resolved in the ED with 8 units of regular insulin subq and 4 L NaCl - 70 units 70/30 with breakfast and dinner, +SSI; metformin 500 mg BID (not increased d/t reduced GFR) - A1c 14.7 - Diabetes education completed - daily BMPs - carb controlled heart healthy diet - endocrinology following Poor control 2/2 lack of medication compliance - consult CM and SW for home going resources B Abscess, gluteal, right 03/06/2018 - Present Current Assessment AND Plan -Not amenable to I/D -Will switch Vancomycin to Doxy and Keflex -Possible General surgery consult for I/D although does not appear drainable yet Unprioritized UTI (urinary tract infection) 03/01/2018 - Present Current Assessment AND Plan - Abx as above for the gluteal abscess - Urine culture- mixed skin dani; Blood cultures NGTD - Patient reports symptomatic improvement HTN (hypertension) 03/01/2018 - Present Current Assessment AND Plan - C/w amlodipine and lisinopril. - Will slowly titrate up as BP tolerates Degenerative joint disease 03/01/2018 - Present Current Assessment AND Plan -Monitor -will give tylenol for pain control PRN. Diabetic ketoacidosis (HCC) 03/01/2018 - Present Current Assessment AND Plan Resolved- see above Microscopic hematuria 03/01/2018 - Present Current Assessment AND Plan - Seen on UA. This is likely 2/2 UTI. - Will need repeat testing as OP to make sure of resolution. Leukocytosis 03/06/2018 - Present Current Assessment AND Plan -Tachycardic -Possibly 2/2 to gluteal abscess -C/w vancomycin Medication and Non-Pharmacologic VTE Prophylaxis/Anticoagul ants Anticoagulant AND Antiplatelet Medications Start Dose Route Frequency Ordered Stop 03/02/18 2110 enoxaparin 40 mg injection (LOVENOX) (Medical At Risk ) 40 mg SUBCUTANEOUS EVERY 12 HOURS 03/02/18 1117 -- 03/02/18 1600 aspirin 81 mg chewable tab(s) 81 mg ORAL DAILY 03/02/18 1545 -- 03/01/18 1715 pneumatic compression stockings (vt,oh) VTE Prophylaxis: VTE prophylaxis appropriate Plan of care discussed with: Attending and Patient SIGNATURE: Jackson Williamson DO PATIENT NAME: Cinthya Castillo DATE: March 07, 2018 TIME: 4:25 PM PAGER/CONTACT #: [phone] Normal [facility] Basic Panelon 03-06-2018 Creatinine mass conc 1.09 mg/dL High 0.51-0.95 [facility] Comment on above: Performed By: #### U RIN2 #### [facility] [address] [place], [place] [address] Anion gap molar conc 13 mmol/L Normal 8-16 [facility] Comment on above: Performed By: #### U RIN2 #### [facility] [address] [place], [place] [address] CO2 molar conc 26 mmol/L Normal 21-32 [facility] Comment on above: Performed By: #### U RIN2 #### [facility] [address] [place] [address] Glucose mass conc 206 mg/dL High 70-99 [facility] Comment on above: Performed By: #### U RIN2 #### [facility] [address] [place] [address] Urea nitrogen mass conc 16 mg/dL Normal 7-18 [facility] Comment on above: Performed By: #### U RIN2 #### [facility] [address] [place] [address] Calcium mass conc 8.6 mg/dL Normal 8.5-10.1 [facility] Comment on above: Performed By: #### U RIN2 #### [facility] [address] [place] [address] Chloride molar conc 103 mmol/L Normal 98-107 [facility] Comment on above: Performed By: #### U RIN2 #### [facility] [address] [place] [address] Potassium molar conc 3.7 mmol/L Normal 3.5-5.1 [facility] Comment on above: Performed By: #### U RIN2 #### [facility] [address] [place] [address] Sodium molar conc 138 mmol/L Normal 136-145 [facility] Comment on above: Performed By: #### U RIN2 #### [facility] [address] [place] [address] CONSULTon 03-06-2018 CONSULT HNO ID: [id number] Author: Shailesh Solano Service: Endocrinology Author Type: Physician Type: Consults Filed: 03/06/2018 9:01 AM Note Text: INITIAL CONSULT ENDOCRINOLOGY SERVICE DATE: 03/06/2018 SERVICE TIME: 8:50 AM Requesting Provider: Zeke Montague Opinion/Advice Regarding: Management of diabetes Service: Endocrinology Consult Service Subjective HISTORY OF PRESENT ILLNESS: Ms. Cinthya Castillo is a 57 year old female with Diabetes Mellitus type 2. Poor historian. She apparently has insulin at home, but was not using it. "I didn't know how much to take". 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 Has services that come in and provide meals. Per primary team notes, poor ability to self care. In my interview, she talks logically, but overall insight is lacking. Also on metformin. Eating ok. Denies nausea or vomiting. 03/01/218: HbA1c 14.7%, showing very poor control. Renal function: 03/06/2018: creatinine 1.09 mg/dL, eGFR 51. Glucoses in here 200-400. Last glucose 196 mg/dL, today fasting. Currently on a basal bolus insulin regimen, ordered by primary team. PAST MEDICAL HISTORY Diagnosis Date - Development delay - Diabetes (HCC) - Hypertension No past surgical history on file. No family history on file. Social History Substance Use Topics - Smoking status: Never Smoker - Smokeless tobacco: Never Used - Alcohol use No MEDICATIONS: Prescriptions Prior to Admission: alogliptin (NESINA) 12.5 mg tab Take 1 tablet by mouth every morning. Disp: Rfl: amLODIPine (NORVASC) 2.5 mg tablet Take 2.5 mg by mouth once daily. Disp: Rfl: aspirin 81 mg chewable tablet Take 81 mg by mouth once daily. Disp: Rfl: diclofenac, EC, (VOLTAREN) 75 mg EC tablet Take 75 mg by mouth twice daily. Disp: Rfl: fenofibrate (LOFIBRA) 67 mg capsule Take 67 mg by mouth daily at bedtime. Disp: Rfl: gabapentin (NEURONTIN) 600 mg tablet Take 600 mg by mouth three times daily. Disp: Rfl: glipiZIDE (GLUCOTROL) 10 mg tablet Take 10 mg by mouth twice daily before meals. Disp: Rfl: hydroCHLOROthiazide (HYDRODIURIL, ESIDRIX) 50 mg tablet Take 50 mg by mouth once daily. Disp: Rfl: insulin glargine (LANTUS SOLOSTAR, BASAGLAR KWIKPEN) 100 unit/mL (3 mL) inpn Inject 110 Units subcutaneously daily at bedtime. Disp: Rfl: lisinopril (ZESTRIL, PRINIVIL) 40 mg tablet Take 40 mg by mouth once daily. Disp: Rfl: metFORMIN (GLUCOPHAGE) 1,000 mg tablet Take 1,000 mg by mouth twice daily with meals. Disp: Rfl: metoprolol tartrate, short acting, (LOPRESSOR) 100 mg tablet Take 100 mg by mouth twice daily. Disp: Rfl: montelukast (SINGULAIR) 10 mg tablet Take 10 mg by mouth daily at bedtime. Disp: Rfl: nystatin (MYCOSTATIN) cream Apply to affected area twice daily. Disp: Rfl: simvastatin (ZOCOR) 20 mg tablet Take 20 mg by mouth daily at bedtime. Disp: Rfl: Current hospital medications: acetaminophen 650 mg tab(s) (TYLENOL) 650 mg ORAL q 6 H PRN amLODIPine 10 mg tab(s) (NORVASC) 10 mg ORAL DAILY aspirin 81 mg chewable tab(s) 81 mg ORAL DAILY atorvastatin 40 mg tab(s) (LIPITOR) 40 mg ORAL AT BEDTIME cefdinir 300 mg (OMNICEF) 300 mg ORAL BID dextrose 40 % 15 g 15 g ORAL PRN dextrose 50% in water 25 mL syringe 12.5 g INTRAVENOUS PRN enoxaparin 40 mg injection (LOVENOX) 40 mg SUBCUTANEOUS q 12 HR gabapentin 600 mg cap(s) (NEURONTIN) 600 mg ORAL TID glucagon 1 mg injection (GLUCAGEN) 1 mg INTRAMUSCULAR PRN insulin glargine 70 Units pen (long acting) (LANTUS SOLOSTAR, BASAGLAR KWIKPEN) 70 Units SUBCUTANEOUS AT BEDTIME insulin lispro 30 Units pen (rapid acting) (HumaLOG KWIKPEN) 30 Units SUBCUTANEOUS w MEALS insulin lispro pen (rapid acting) (HumaLOG KWIKPEN) SUBCUTANEOUS w MEALS insulin lispro pen (rapid acting) (HumaLOG KWIKPEN) SUBCUTANEOUS AT BEDTIME lisinopril 20 mg tab(s) (ZESTRIL, PRINIVIL) 20 mg ORAL DAILY metFORMIN 500 mg tab(s) (GLUCOPHAGE) 500 mg ORAL BID w MEALS montelukast 10 mg tab(s) (SINGULAIR) 10 mg ORAL AT BEDTIME white petrolatum-mineral oil cream (EUCERIN) TOPICAL DAILY ALLERGIES Allergen Reactions - Penicillin Unknown Pt unaware of reaction COMPLETE REVIEW OF SYSTEMS: Constitutional: No overt fatigue. Weight stable. Ophthalmologic: No eye pain. No overt vision changes. Otolaryngologic / Ears, nose throat: No overt dysphagia, no anterior neck compression-type symptoms. No hoarseness. Cardiologic: No current chest pain. No current dyspnea. No palpitations or edema. Respiratory: No current shortness of breath, wheezing or cough. Gastrointestinal: no nausea or vomiting. No (chronic) diarrhea or (chronic) constipation. No heartburn Genital-Urinary: no dysuria, frequency, hesitancy, hematuria, polyuria or nocturia. Integument: No dry skin. No known rashes. Musculoskeletal: No joint pain, stiffness, swelling, cramping. Neurologic: no numbness, paresthesias, weakness, burning or dizziness. Psychologic: No depression, nervousness or anxiety. Allergic / Immunologic: No known correction or short term issues. Objective PHYSICAL EXAM: BP 133/73 Pulse 113 Temp 37.1 ?C (98.8 ?F) (Oral) Resp 18 Ht 167.6 cm (5' 6") Wt 117.5 kg (259 lb) SpO2 96% BMI 41.80 kg/m? Body mass index is 41.8 kg/m?. General Appearance: Well appearing, alert, in no acute distress, well-hydrated, well nourished. Eyes: Pupils appear equal. Extra-occular motions intact. Sclera non-icteric. No exophthalmos. Neck: Thyroid symmetric, normal size. Cardiovascular: Heart with regular rate and regular rhythm. No overt murmurs, gallops, or rubs. No ectopy. Respiratory: Lungs borden clear to auscultation. No wheezing, rhonchi, rales. Abdominal: Obese. Soft, non-tender, non-distended. No hepatomegaly. Musculoskeletal: No overt edema. Hand joints without overt abnormalities. Neurologic: Cranial nerves II-XII grossly intact. Moves extremities. Psychiatric: Alert, oriented. Pleasant with exam. LABORATORY RESULTS: HGB (g/dL) Date Value 03/06/2018 11.0 Hematocrit (%) Date Value 03/06/2018 33.2 WBC (thou/cmm) Date Value 03/06/2018 13.39 Platelet Count (thou/cmm) Date Value 03/06/2018 294 Potassium (mEq/L) Date Value 03/06/2018 3.7 Sodium (mEq/L) Date Value 03/06/2018 138 Magnesium (mg/dL) Date Value 03/01/2018 1.8 Creatinine (mg/dL) Date Value 03/06/2018 1.09 BUN (mg/dL) Date Value 03/06/2018 16 Glucose (mg/dL) Date Value 03/06/2018 206 Lipids: Cholesterol, Total (mg/dL) Date Value 03/03/2018 134 HDL Cholesterol (mg/dL) Date Value 03/03/2018 29 LDL Calculated (mg/dL) Date Value 03/03/2018 64 Triglyceride (mg/dL) Date Value 03/03/2018 207 Albumin (g/dL) Date Value 03/02/2018 2.7 (L) Bilirubin, Total (mg/dL) Date Value 03/02/2018 0.6 Alkaline Phosphatase (U/L) Date Value 03/02/2018 106 AST (U/L) Date Value 03/02/2018 14 ALT (U/L) Date Value 03/02/2018 23 Protein, Total (g/dL) Date Value 03/02/2018 7.0 No results found for: LVEF Hemoglobin A1C (%) Date Value 03/01/2018 14.7 Recent Labs 03/06/18 0715 03/06/18 0356 03/05/18 2055 03/05/18 1703 03/05/18 1059 03/05/18 0738 03/05/18 0554 03/04/18 0455 03/03/18 2110 GLUC -- 206* -- -- -- -- 291* -- 253* -- 398* GLUCOSEMETER 196* -- 296* 241* 333* 295* -- < > -- < > -- < > = values in this interval not displayed. Assessment/Plan Diabetes Mellitus type 2 insulin requiring, uncontrolled. The main issue is more social service related. It is unclear if she fully has ability for self care / insulin administration. Will defer to primary team as per setting up proper services. As per her insulin, I will increase her dosing today, around 10-20%. She is not a candidate for "tight" control of her glucoses, based on multiple factors. Thus overall goals are to get reasonable control, and avoid hypoglycemia. HbA1c target of 8% is reasonable in this situation. Our group will assist in insulin titration. Note, on metformin. This is ok as she was never really acidotic. Her Co2 (in BMP) was 20, at the lowest and the true anion gap was upper normal upon presentation. SIGNATURE: Shailesh Solano MD PATIENT NAME: Cinthya Castillo DATE: March 06, 2018 TIME: 8:50 AM PAGER/CONTACT #: [phone] Normal [facility] Hemogramon 03-06-2018 Erythrocyte distribution width Ratio (RBC) 12.2 % Normal 11.7-14.4 [facility] Comment on above: Performed By: #### U RIN2 #### [place] [address] Hematocrit Volume Fraction (Bld) 33.2 % Low 34.1-44.9 [facility] Comment on above: Performed By: #### U RIN2 #### [place] [address] Hemoglobin mass conc (Bld) 11.0 g/dL Low 11.2-15.7 [facility] Comment on above: Performed By: #### U RIN2 #### [place] [address] MCH Entitic mass (RBC) 31.3 pg Normal 25.6-32.2 [facility] Comment on above: Performed By: #### U RIN2 #### [place] [address] MCHC mass conc (RBC) 33.1 % Normal 31.6-34.8 [facility] Comment on above: Performed By: #### U RIN2 #### [place] [address] MCV Entitic volume (RBC) 94.3 fL Normal 79.4-94.8 [facility] Comment on above: Performed By: #### U RIN2 #### [address] [place], [place] [address] Platelet mean volume Entitic volume (Bld) 10.9 fL Normal 9.4-12.3 [facility] Comment on above: Performed By: #### U RIN2 #### [facility] [address] [place] [address] Platelets #/vol (Bld) 294 thou/cmm Normal 182-369 A [facility] Comment on above: Performed By: #### U RIN2 #### [facility] [address] [place] [address] RBC #/vol (Bld) 3.52 mil/cmm Low 3.93-5.22 [facility] Comment on above: Performed By: #### U RIN2 #### [facility] [address] [place] [address] RDW SD 41.9 fl Normal 36.4-46.3 [facility] Comment on above: Performed By: #### U RIN2 #### [facility] [address] [place] [address] WBC #/vol (Bld) 13.39 thou/cmm High 3.98-10.04 [facility] Comment on above: Performed By: #### U RIN2 #### [facility] [address] [place] [address] PLAN OF CAREon 03-06-2018 PLAN OF CARE HNO ID: [id number] Author: Raul Gamino Service: Hospital Medicine Author Type: Resident Type: Plan of Care Filed: 03/06/2018 4:31 PM Note Text: Discussed with Dr Solano from endocrinology about switching the patient to a 70/30 insulin regimen with concerns about being able to take 4 injections a day. Will switch to 70 units with breakfast and 70 with dinner of 70/30 insulin. AMANDA Gay March 06, 2018 10:23 AM Pager [phone] [facility] PROGRESSon 03-06-2018 Protein mass conc HNO ID: [id number] Author: Anupam Willis Service: Hospital Medicine Author Type: Physician Type: Progress Notes Filed: 03/07/2018 10:05 PM Note Text: SERVICE DATE: 03/06/2018 SERVICE TIME: 9:07 AM [facility] MEDICINE PROGRESS NOTE NIGHT AND WEEKEND COVERAGE: From 7am - 7pm, please call [phone] After 7pm, please call cross cover pager #[phone] HPI Patient is a 57 yo F with pmhx of HTN, DM, developmental delay is presenting after having a fall at which time she was noted to be in DKA and found to have a UTI. She was given 8U of insulin and 4L of IV fluids with resolution of DKA. Patient's BG is trending down from 700s to 297. A1c found to be 14.7. Poor control likely due to lack of resources and patient's developmental delay. Patient has a case coordinator who has helped with her medications in the past. SUBJECTIVE Interval Events: Sugars trending down to low 200's. Spoke with Dr. Solano regarding 70/30 regimen, recommended 70 unit BID. Patient endorsing pain in her right buttock this AM. Early abscess found on exam. Will start vancomycin. OBJECTIVE BP 114/74 Pulse 107 Temp (Src) 99.1 (Oral) Resp 18 Ht 5' 6" (1.68m) Wt 259 lb (117.5kg) SpO2 95% BMI 41.82 kg/(m2). Physical Exam Performed: GENERAL: GENERAL APPEARANCE NCCC: well appearing, alert and in no acute distress HEART: HEART CCF: regular rate and rhythm, no murmer, gallop or rub, normal, S1, S2, no lifts, heaves, or thrills, PMI not displaced LUNGS: LUNGS CCF: clear to percussion and auscultation and no rales ABDOMEN: ABDOMEN: Soft, nontender, bowel sounds normal, no palpable organomegaly, no bruits. EXTREMITY: EXTREMITY EXAM: Normal exam of the extremities. No clubbing, cyanosis, or edema. PRESSURE ULCERS: Right gluteal early abscess forming, firm, non fluctuant, 5cm x 2cm erythematous and TTP. Lines, Drains, and Airways Line Peripheral 03/01/18 1033 Admission to Hospital Short Right Hand 20 Gauge 4 days Reviewed lines, drains, AND airways. Need to be continued . Medications: Reviewed Current Facility-Administered Medications: acetaminophen 650 mg tab(s) (TYLENOL) 650 mg ORAL q 6 H PRN Zeke Montague 650 mg at 03/05/18 1717 amLODIPine 10 mg tab(s) (NORVASC) 10 mg ORAL DAILY Roberto Carlos (Res) Pannikottu 10 mg at 03/05/18 0843 aspirin 81 mg chewable tab(s) 81 mg ORAL DAILY Ahmad H (Res) Ababneh 81 mg at 03/05/18 0843 atorvastatin 40 mg tab(s) (LIPITOR) 40 mg ORAL AT BEDTIME Ahmad H (Res) Ababneh 40 mg at 03/05/182057 cefdinir 300 mg (OMNICEF) 300 mg ORAL BID Ahmad H (Res) Ababneh 300 mg at 03/05/182058 dextrose 40 % 15 g 15 g ORAL PRN Roberto Carlos (Res) Pannikottu Or glucagon 1 mg injection (GLUCAGEN) 1 mg INTRAMUSCULAR PRN Roberto Carlos (Res) Pannikottu Or dextrose 50% in water 25 mL syringe 12.5 g INTRAVENOUS PRN Roberto Carlos (Res) Pannikottu enoxaparin 40 mg injection (LOVENOX) 40 mg SUBCUTANEOUS q 12 HR Ahmad H (Res) Ababneh 40 mg at 03/05/182057 gabapentin 600 mg cap(s) (NEURONTIN) 600 mg ORAL TID Ahmad H (Res) Ababneh 600 mg at 03/05/182057 insulin glargine 60 Units pen (long acting) (LANTUS SOLOSTAR, BASAGLAR KWIKPEN) 60 Units SUBCUTANEOUS AT BEDTIME Ahmad H (Res) Ababneh 60 Units at 03/05/182058 insulin lispro 24 Units pen (rapid acting) (HumaLOG KWIKPEN) 24 Units SUBCUTANEOUS w MEALS Raul (Res) Dhal insulin lispro pen (rapid acting) (HumaLOG KWIKPEN) SUBCUTANEOUS w MEALS Zeke Montague 4 Units at 03/05/181717 insulin lispro pen (rapid acting) (HumaLOG KWIKPEN) SUBCUTANEOUS AT BEDTIME Raul (Res) Dhal 6 Units at 03/05/182058 lisinopril 20 mg tab(s) (ZESTRIL, PRINIVIL) 20 mg ORAL DAILY Roberto Carlos (Res) Pannikottu 20 mg at 03/05/18 08 metFORMIN 500 mg tab(s) (GLUCOPHAGE) 500 mg ORAL BID w MEALS Ahmad H (Res) Ababneh 500 mg at 03/05/18 1718 montelukast 10 mg tab(s) (SINGULAIR) 10 mg ORAL AT BEDTIME Ahmad H (Res) Ababneh 10 mg at 03/05/182057 white petrolatum-mineral oil cream (EUCERIN) TOPICAL DAILY Magalys Singleton (Hand Fabric Cutter) [place] Diagnostic tests reviewed: Most recent labs and imaging results. Recent Labs 03/06/18 0356 03/04/18 0455 03/03/18 0415 WBC 13.39* 12.55* 12.31* RBC 3.52* 3.52* 3.65* HB 11.0* 10.9* 11.3 HCT 33.2* 33.1* 34.1 PLT 294 247 268 MCV 94.3 94.0 93.4 MCH 31.3 31.0 31.0 MPV 10.9 10.1 10.8 RDW 12.2 12.3 12.3 Recent Labs 03/06/18 0356 03/05/18 0554 03/04/18 0455 03/02/18 0323 03/01/18 1100 GLUC 206* 291* 253* < > 297* < > 735* NA 138 140 138 < > 136 < > 127* K 3.7 4.0 3.8 < > 3.7 < > 4.0 CHLOR 103 105 105 < > 103 < > 91* CO2 26 25 25 < > 22 < > 20* CREAT 1.09* 1.11* 1.19* < > 1.23* < > 1.51* BUN 16 21* 24* < > 36* < > 55* ANION 13 14 12 < > 15 < > 20* CA 8.6 8.4* 8.5 < > 8.1* < > 9.3 TPROT -- -- -- -- 7.0 -- 8.2 ALB -- -- -- -- 2.7* -- 3.2* TBILI -- -- -- -- 0.6 -- 0.9 ALKPHOS -- -- -- -- 106 -- 122* AST -- -- -- -- 14 -- 19 ALT -- -- -- -- 23 -- 28 < > = values in this interval not displayed. Recent Labs 03/06/18 0715 03/06/186 03/05/18 2055 03/05/18 1703 03/05/18 0554 03/04/18 0455 03/01/18 1115 GLUC -- 206* -- -- -- 291* -- 253* < > -- GLUCOSEMETER 196* -- 296* 241* < > -- < > -- < > -- GLUCOSEPOC -- -- -- -- -- -- -- -- -- 679* < > = values in this interval not displayed. Most recent labs ASSESSMENT AND PLAN Assessment AND Plan, all Hosp Problems Active Hospital Problems as of 03/06/2018 Noted - Resolved * (Principal)Diabetes mellitus type 2 with ketoacidosis, uncontrolled (HCC) 03/01/2018 - Present Current Assessment AND Plan - Patient presented initially with DKA, that has resolved in the ED with 8 units of regular insulin subq and 4 L NaCl - 70 units 70/30 with breakfast and dinner, +SSI; metformin 500 mg BID (not increased d/t reduced GFR) - A1c 14.7 - Diabetes education completed - daily BMPs - carb controlled heart healthy diet - endocrinology following Poor control 2/2 lack of medication compliance - consult CM and SW for home going resources UTI (urinary tract infection) 03/01/2018 - Present Current Assessment AND Plan - Ceftriaxone switched to cefdinir 300 BID - Urine culture- mixed dani; Blood cultures NGTD - Patient reports symptomatic improvement Leukocytosis -Remains elevated, 13.39 this am -Tachycardic also -Possibly 2/2 to gluteal abscess -Will start vancomycin HTN (hypertension) 03/01/2018 - Present Current Assessment AND Plan - C/w amlodipine and lisinopril. - Will slowly titrate up as BP tolerates Degenerative joint disease 03/01/2018 - Present Current Assessment AND Plan -Monitor -will give tylenol for pain control PRN. Diabetic ketoacidosis (HCC) 03/01/2018 - Present Current Assessment AND Plan Resolved- see above Microscopic hematuria 03/01/2018 - Present Current Assessment AND Plan - Seen on UA. This is likely 2/2 UTI. - Will need repeat testing as OP to make sure of resolution. Right Gluteal Abscess -Not amenable to I/D -Vancomycin 1.25 mg Q12h -Follow vanc trough before 4th dose -Possible General surgery consult for I/D although does not appear drainable yet Medication and Non-Pharmacologic VTE Prophylaxis/Anticoagul ants Anticoagulant AND Antiplatelet Medications Start Dose Route Frequency Ordered Stop 03/02/182109 enoxaparin 40 mg injection (LOVENOX) (Medical At Risk ) 40 mg SUBCUTANEOUS EVERY 12 HOURS 03/02/18 1117 -- 03/02/18 1600 aspirin 81 mg chewable tab(s) 81 mg ORAL DAILY 03/02/18 1545 -- 03/01/18 1715 pneumatic compression stockings (vt,sc) VTE Prophylaxis: VTE prophylaxis appropriate Plan of care discussed with: Attending SIGNATURE: Annmarie Oliva MD PATIENT NAME: Cinthya Castillo DATE: March 06, 2018 TIME: 9:07 AM PAGER/CONTACT #: [phone] Evaluated independently Agreed with the above notes by Dr. Oliva which reflects my input with the following additions Complains of pain over the right buttock On exam she has large indurated area consistent with cellulitis Will start on empirical Vanc.and observe Lives in a [facility] May not able to have 4 insulin shots a day. Endo was called and placed on 70/30 insulin 2 times a day Discussed with patient regarding condition and plan Plan her discharge Attestation signed by Anupam Willis MD [facility] Attending March 06, 2018 9:57 PM Normal [facility] Basic Panelon 03-05-2018 Creatinine mass conc 1.11 mg/dL High 0.51-0.95 [facility] Comment on above: Performed By: #### E DGLG #### [facility] [address] [place] [address] Anion gap molar conc 14 mmol/L Normal 8-16 [facility] Comment on above: Performed By: #### E DGLG #### [facility] [address] [place], [place] [address] Calcium mass conc 8.4 mg/dL Low 8.5-10.1 [facility] Comment on above: Performed By: #### E DGLG #### [facility] [address] [place] [address] CO2 molar conc 25 mmol/L Normal 21-32 [facility] Comment on above: Performed By: #### E DGLG #### [facility] [address] [place], [place] [address] Urea nitrogen mass conc 21 mg/dL High 7-18 [facility] Comment on above: Performed By: #### E DGLG #### [facility] [address] [place], [place] [address] Glucose mass conc 291 mg/dL High 70-99 [facility] Comment on above: Performed By: #### E DGLG #### [facility] [address] [place], [place] [address] Chloride molar conc 105 mmol/L Normal 98-107 [facility] Comment on above: Performed By: #### E DGLG #### [facility] [address] [place], [place] [address] Potassium molar conc 4.0 mmol/L Normal 3.5-5.1 [facility] Comment on above: Performed By: #### E DGLG #### [facility] [address] [place], [place] [address] Sodium molar conc 140 mmol/L Normal 136-145 [facility] Comment on above: Performed By: #### E DGLG #### [facility] [address] [place], [place] [address] PROGRESSon 03-05-2018 Protein mass conc HNO ID: [id number] Author: Anupam Willis Service: Hospital Medicine Author Type: Physician Type: Progress Notes Filed: 03/05/2018 10:02 PM Note Text: SERVICE DATE: 03/05/2018 SERVICE TIME: 9:16 AM HOSPITAL MEDICINE PROGRESS NOTE HPI Patient is a 57 yo F with pmhx of HTN, DM, developmental delay is presenting after having a fall at which time she was noted to be in DKA and found to have a UTI. She was given 8U of insulin and 4L of IV fluids with resolution of DKA. Patient's BG is trending down from 700s to 297. A1c found to be 14.7. Poor control likely due to lack of resources and patient's developmental delay. Patient has a case coordinator who has helped with her medications in the past. SUBJECTIVE Patient states that she is doing well this morning. Reports new intermittent leg numbness/pain with cough. Denies changes in sensation on exam. Patient is able to bear weight without difficulty. She is unable to describe the pain in further detail. Denies fevers, chills, nausea, vomiting, chest pain or shortness of breath. Dysuria improved. She required a total of 150U of insulin yesterday (35 extra added with sliding scale). Modified diet order this morning to carb control heart healthy diet and will continue to titrate insulin regimen as needed. Discharge planning in process. Patient will require additional resources to encourage medication adherence outpatient. Endocrinology consulted. OBJECTIVE BP 119/62 Pulse 96 Temp (Src) 97.9 (Oral) Resp 18 Ht 5' 6" (1.68m) Wt 259 lb (117.5kg) SpO2 96% BMI 41.82 kg/(m2). Physical Exam Performed: GENERAL: GENERAL APPEARANCE NCCC: well appearing, alert and in no acute distress HEART: HEART CCF: regular rate and rhythm, no murmer, gallop or rub, normal, S1, S2 LUNGS: LUNGS CCF: clear to percussion and auscultation and no rales ABDOMEN: ABDOMEN: Soft, nontender, bowel sounds normal, no palpable organomegaly, no bruits. EXTREMITY: EXTREMITY EXAM: Normal exam of the extremities. No clubbing, cyanosis, or edema., reports some intermittent numbness in her right leg; exam findings wnl; no changes in sensation and no-tender to palpation The remainder of the physical exam is noncontributory. Lines, Drains, and Airways Line Peripheral 03/01/18 1033 Admission to Hospital Short Right Hand 20 Gauge 3 days Reviewed lines, drains, AND airways. Need to be continued . Medications: Reviewed Current Facility-Administered Medications: acetaminophen 650 mg tab(s) (TYLENOL) 650 mg ORAL q 6 H PRN Zeke Montague 650 mg at 03/05/18 0843 amLODIPine 10 mg tab(s) (NORVASC) 10 mg ORAL DAILY Roberto Carlos (Res) Pannikottu 10 mg at 03/05/18 0843 aspirin 81 mg chewable tab(s) 81 mg ORAL DAILY Ahmad H (Res) Ababneh 81 mg at 03/05/18 0843 atorvastatin 40 mg tab(s) (LIPITOR) 40 mg ORAL AT BEDTIME Ahmad H (Res) Ababneh 40 mg at 03/04/18 214 cefdinir 300 mg (OMNICEF) 300 mg ORAL BID Ahmad H (Res) Ababneh 300 mg at 03/05/18 0842 dextrose 40 % 15 g 15 g ORAL PRN Roberto Carlos (Res) Pannikottu Or glucagon 1 mg injection (GLUCAGEN) 1 mg INTRAMUSCULAR PRN Roberto Carlos (Res) Pannikottu Or dextrose 50% in water 25 mL syringe 12.5 g INTRAVENOUS PRN Roberto Carlos (Res) Pannikottu enoxaparin 40 mg injection (LOVENOX) 40 mg SUBCUTANEOUS q 12 HR Ahmad H (Res) Ababneh 40 mg at 03/05/18 0842 gabapentin 600 mg cap(s) (NEURONTIN) 600 mg ORAL TID Ahmad H (Res) Ababneh 600 mg at 03/05/18 0843 insulin glargine 60 Units pen (long acting) (LANTUS SOLOSTAR, BASAGLAR KWIKPEN) 60 Units SUBCUTANEOUS AT BEDTIME Ahmad H (Res) Ababneh 60 Units at 03/04/18 2145 insulin lispro 20 Units pen (rapid acting) (HumaLOG KWIKPEN) 20 Units SUBCUTANEOUS w MEALS Ahmad H (Res) Ababneh 20 Units at 03/05/18 0843 insulin lispro pen (rapid acting) (HumaLOG KWIKPEN) SUBCUTANEOUS w MEALS Zeke Montague 6 Units at 03/05/18 0844 lisinopril 20 mg tab(s) (ZESTRIL, PRINIVIL) 20 mg ORAL DAILY Roberto Carlos (Res) Pannikottu 20 mg at 03/05/18 0842 metFORMIN 500 mg tab(s) (GLUCOPHAGE) 500 mg ORAL BID w MEALS Ahmad H (Res) Ababneh 500 mg at 03/05/18 0844 montelukast 10 mg tab(s) (SINGULAIR) 10 mg ORAL AT BEDTIME Ahmad H (Res) Ababneh 10 mg at 03/04/18 2145 white petrolatum-mineral oil cream (EUCERIN) TOPICAL DAILY Magalys N (Hand Fabric Cutter) [place] Diagnostic tests reviewed: Most recent labs Most recent imaging Recent Labs 03/05/18 0554 03/04/18 0455 03/03/18 2110 03/02/18 0323 03/01/18 1100 GLUC 291* 253* 398* < > 297* < > 735* NA 140 138 135* < > 136 < > 127* K 4.0 3.8 4.2 < > 3.7 < > 4.0 CHLOR 105 105 102 < > 103 < > 91* CO2 25 25 24 < > 22 < > 20* CREAT 1.11* 1.19* 1.42* < > 1.23* < > 1.51* BUN 21* 24* 25* < > 36* < > 55* ANION 14 12 13 < > 15 < > 20* CA 8.4* 8.5 8.6 < > 8.1* < > 9.3 TPROT -- -- -- -- 7.0 -- 8.2 ALB -- -- -- -- 2.7* -- 3.2* TBILI -- -- -- -- 0.6 -- 0.9 ALKPHOS -- -- -- -- 106 -- 122* AST -- -- -- -- 14 -- 19 ALT -- -- -- -- 23 -- 28 < > = values in this interval not displayed. Most recent labs ASSESSMENT AND PLAN Assessment AND Plan, Most Recent Note from ALL Problems our Service Addressed Cardiovascular HTN (hypertension) - C/w amlodipine and lisinopril. - Will slowly titrate up as BP tolerates Nephrology Microscopic hematuria - Seen on UA. This is likely 2/2 UTI. - Will need repeat testing as OP to make sure of resolution. UTI (urinary tract infection) - Ceftriaxone switched to cefdinir 300 BID - Urine culture- mixed skin dani; Blood cultures NGTD - Patient reports symptomatic improvement Endocrinology * Diabetes mellitus type 2 with ketoacidosis, uncontrolled (HCC) - Patient presented initially with DKA, that has resolved in the ED with 8 units of regular insulin subq and 4 L NaCl - current insulin increased to basal 60 U and 20 w/meals+ SSI; metformin 500 mg BID (not increased d/t reduced GFR) - A1c 14.7 - Diabetes education completed - daily BMPs - carb controlled heart healthy diet - endocrinology consulted Poor control 2/2 lack of medication compliance - consult CM and SW for home going resources Diabetic ketoacidosis (HCC) Resolved- see above Rheumatology Degenerative joint disease -Monitor -will give tylenol for pain control PRN. Medication and Non-Pharmacologic VTE Prophylaxis/Anticoagul ants Anticoagulant AND Antiplatelet Medications Start Dose Route Frequency Ordered Stop 12/12/18 2110 enoxaparin 40 mg injection (LOVENOX) (Medical At Risk ) 40 mg SUBCUTANEOUS EVERY 12 HOURS 03/02/18 1117 -- 03/02/18 1600 aspirin 81 mg chewable tab(s) 81 mg ORAL DAILY 03/02/18 1545 -- 03/01/18 1715 pneumatic compression stockings (fl,oh) VTE Prophylaxis: VTE prophylaxis appropriate Plan of care discussed with: Attending and Patient SIGNATURE: Marielos Zhu DO PATIENT NAME: Cinthya Castillo DATE: March 05, 2018 TIME: 9:16 AM PAGER/CONTACT #: [phone] Transferred to my service Chart reviewed Evaluated independently Discussed with Dr. Zhu and agree with above notes which reflect my input with following additions Poor historian Admitted with uncontrolled dm type Obese Doubt will be able to take insulin 4 shots a day. Will consult Endo and consolidate 70/30 insulin 2 times a day Needs basic diabetic teaching Also needs PT and OT Possible discharge in 1-2 days Attestation signed by Anupam Willis MD [facility] [place] Attending March 05, 2018 9:56 PM Normal [facility] Basic Panelon 03-04-2018 Creatinine mass conc 1.19 mg/dL High 0.51-0.95 [facility] Comment on above: Performed By: #### E DGLG #### [place] [address] Anion gap molar conc 12 mmol/L Normal 8-16 [facility] Comment on above: Performed By: #### E DGLG #### [place] [address] CO2 molar conc 25 mmol/L Normal 21-32 [facility] Comment on above: Performed By: #### E DGLG #### [facility] [address] [place], [place] [address] Glucose mass conc 253 mg/dL High 70-99 [facility] Comment on above: Performed By: #### E DGLG #### [place] [address] Urea nitrogen mass conc 24 mg/dL High 7-18 [facility] Comment on above: Performed By: #### E DGLG #### [facility] [address] [place], [place] [address] Calcium mass conc 8.5 mg/dL Normal 8.5-10.1 [facility] Comment on above: Performed By: #### E DGLG #### [facility] [address] [place], [place] [address] Chloride molar conc 105 mmol/L Normal 98-107 [facility] Comment on above: Performed By: #### E DGLG #### [facility] [address] [place] [address] Potassium molar conc 3.8 mmol/L Normal 3.5-5.1 [facility] Comment on above: Performed By: #### E DGLG #### [facility] [address] [place] [address] Sodium molar conc 138 mmol/L Normal 136-145 [facility] Comment on above: Performed By: #### E DGLG #### [facility] [address] [place] [address] CASE MANAGEMon 03-04-2018 CASE MANAGEM HNO ID: [id number] Author: Radha (Rn) SUNDEEP Thomas Service: Care Management Author Type: Registered Nurse Type: Care Mgt Progress Note Filed: 03/04/2018 9:39 AM Note Text: CARE MANAGEMENT PROGRESS NOTE SERVICE DATE: 03/04/2018 SERVICE TIME: 9:38 AM LOS: 3 days Needs Prior to Discharge: To Be Determined Left at [phone] for Clifton Murray, 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 Current plan is d/c home once medically ready. SIGNATURE: Radha Thomas RN PATIENT NAME: Cinthya Castillo DATE: March 04, 2018 TIME: 9:38 AM PAGER/CONTACT #: [phone] Normal [facility] Hemogramon 03-04-2018 Erythrocyte distribution width Ratio (RBC) 12.3 % Normal 11.7-14.4 [facility] Comment on above: Performed By: #### E DGLG #### [facility] [address] [place] [address] Hematocrit Volume Fraction (Bld) 33.1 % Low 34.1-44.9 [facility] Comment on above: Performed By: #### E DGLG #### [facility] [address] [place] [address] Hemoglobin mass conc (Bld) 10.9 g/dL Low 11.2-15.7 [facility] Comment on above: Performed By: #### E DGLG #### [facility] [address] [place] [address] MCH Entitic mass (RBC) 31.0 pg Normal 25.6-32.2 [facility] Comment on above: Performed By: #### E DGLG #### [facility] [address] [place] [address] MCHC mass conc (RBC) 32.9 % Normal 31.6-34.8 [facility] Comment on above: Performed By: #### E DGLG #### [place] [address] MCV Entitic volume (RBC) 94.0 fL Normal 79.4-94.8 [facility] Comment on above: Performed By: #### E DGLG #### [facility] [address] [place] [address] Platelet mean volume Entitic volume (Bld) 10.1 fL Normal 9.4-12.3 [facility] Comment on above: Performed By: #### E DGLG #### [facility] [address] [place] [address] Platelets #/vol (Bld) 247 thou/cmm Normal 182-369 [facility] Comment on above: Performed By: #### E DGLG #### [facility] [address] [place] [address] RBC #/vol (Bld) 3.52 mil/cmm Low 3.93-5.22 [facility] Comment on above: Performed By: #### E DGLG #### [facility] [address] [place] [address] RDW SD 42.2 fl Normal 36.4-46.3 [facility] Comment on above: Performed By: #### E DGLG #### [facility] [address] [place] [address] WBC #/vol (Bld) 12.55 thou/cmm High 3.98-10.04 [facility] Comment on above: Performed By: #### E DGLG #### [facility] [address] [place] [address] NURSING PROGon 03-04-2018 Protein mass conc HNO ID: [id number] Author: Graciela (Rn) SUNDEEP Pineda Service: Nursing Author Type: Registered Nurse Type: Nursing Progress Note Filed: 03/04/2018 9:06 PM Note Text: House med paged regarding pt blood sugar of 425. Will give scheduled 60 U of lantus and new order for 15 U log received. Normal [facility] PROGRESSon 03-04-2018 Protein mass conc HNO ID: [id number] Author: Marielos Lovelace) Audra Service: Hospital Medicine Author Type: Resident Type: Progress Notes Filed: 03/04/2018 1:03 PM Note Text: Attestation signed by Zeke Montague at 03/04/2018 4:38 PM House Medicine Service Attending Attestation I evaluated the patient and personally participated in the craig components. 57 yo female with hx of HTN, DM, developmental delay, and OA/DJD who presented to the ED s/p fall and was admitted with DKA; also with UTI. HX: No events overnight; no new complaints. BG remains elevated. Left message with lead case manager (Clifton, ) to further discuss resources available in the [facility] to encourage medication adherence. PE: BP 126/64 Pulse 104 Temp 37.5 ?C (99.5 ?F) (Oral) Resp 18 Ht 167.6 cm (5' 6") Wt 117.5 kg (259 lb) SpO2 95% BMI 41.80 kg/m? . WD, obese, pleasant, NAD. RRR with nl s1 and s2 and no murmurs. LCTAB without crackles, wheezes, or rhonchi. Abdomen soft, NT, ND without masses or HSM. No peripheral edema. BG 275, 377, 378, >400, 386, 262. MDM: Continue basal-bolus insulin regimen at increased doses (20-20-20-60). ?Continue metformin 500mg bid (no plan to increase given fluctuating renal function). ?Continue cefdinir for presumed UTI to complete 7 day course. Anticipate discharge back to [facility] once blood sugars improved. Zeke Montague MD 03/04/2018 4:30 PM SERVICE DATE: 03/04/2018 SERVICE TIME: 12:51 PM HOSPITAL MEDICINE PROGRESS NOTE HPI Patient is a 57 yo F with pmhx of HTN, DM, developmental delay is presenting after having a fall at which time she was noted to be in DKA and found to have a UTI. She was given 8U of insulin and 4L of IV fluids with resolution of DKA. Patient's BG is trending down from 700s to 297. A1c found to be 14.7. Poor control likely due to lack of resources and patient's developmental delay. Patient has a case coordinator who has helped with her medications in the past. SUBJECTIVE Interval Events: Improved Patient states that she has a headache and some back pain this morning but does not want any medication at present. Otherwise asymptomatic. BG elevated > 400 yesterday evening. Patient received an additional 41 U on the sliding scale since regimen was titrated up yesterday and total of 128U of insulin total. Plan to titrate insulin up to 60U basal and 20U before meals today. Pending further recommendation from lead case manager regarding resources to monitor compliance when patient is discharged to [facility]. OBJECTIVE BP 126/64 Pulse 104 Temp (Src) 99.5 (Oral) Resp 18 Ht 5' 6" (1.68m) Wt 259 lb (117.5kg) SpO2 95% BMI 41.82 kg/(m2). Physical Exam Performed: GENERAL: GENERAL APPEARANCE NCCC: well appearing, alert and in no acute distress HEART: HEART CCF: regular rate and rhythm, no murmer, gallop or rub, normal, S1, S2 LUNGS: LUNGS CCF: clear to percussion and auscultation and no rales ABDOMEN: ABDOMEN: Soft, nontender, bowel sounds normal, no palpable organomegaly, no bruits. EXTREMITY: EXTREMITY EXAM: Normal exam of the extremities. No clubbing, cyanosis, or edema. The remainder of the physical exam is noncontributory. Lines, Drains, and Airways Line Peripheral 03/01/18 1033 Admission to Hospital Short Right Hand 20 Gauge 3 days Reviewed lines, drains, AND airways. Need to be continued . Medications: Reviewed Current Facility-Administered Medications: amLODIPine 10 mg tab(s) (NORVASC) 10 mg ORAL DAILY Roberto Carlos (Res) Pannikottu 10 mg at 03/04/18 0829 aspirin 81 mg chewable tab(s) 81 mg ORAL DAILY Ahmad H (Res) Ababneh 81 mg at 03/04/18 0829 atorvastatin 40 mg tab(s) (LIPITOR) 40 mg ORAL AT BEDTIME Ahmad H (Res) Ababneh 40 mg at 03/03/18 2105 cefdinir 300 mg (OMNICEF) 300 mg ORAL BID Ahmad H (Res) Ababneh 300 mg at 03/04/18 0829 dextrose 40 % 15 g 15 g ORAL PRN Roberto Carlos (Res) Pannikottu Or glucagon 1 mg injection (GLUCAGEN) 1 mg INTRAMUSCULAR PRN Roberto Carlos (Res) Pannikottu Or dextrose 50% in water 25 mL syringe 12.5 g INTRAVENOUS PRN Roberto Carlos (Res) Pannikottu enoxaparin 40 mg injection (LOVENOX) 40 mg SUBCUTANEOUS q 12 HR Ahmad H (Res) Ababneh 40 mg at 03/04/18 0829 gabapentin 600 mg cap(s) (NEURONTIN) 600 mg ORAL TID Ahmad H (Res) Ababneh 600 mg at 03/04/18 1200 insulin glargine 60 Units pen (long acting) (LANTUS SOLOSTAR, BASAGLAR KWIKPEN) 60 Units SUBCUTANEOUS AT BEDTIME Ahmad H (Res) Ababneh insulin lispro 20 Units pen (rapid acting) (HumaLOG KWIKPEN) 20 Units SUBCUTANEOUS w MEALS Ahmad H (Res) Ababneh 20 Units at 03/04/18 1159 insulin lispro pen (rapid acting) (HumaLOG KWIKPEN) SUBCUTANEOUS w MEALS Zeke Montague 6 Units at 03/04/18 1200 lisinopril 20 mg tab(s) (ZESTRIL, PRINIVIL) 20 mg ORAL DAILY Roberto Carlos (Res) Pannikottu 20 mg at 03/04/18 0829 metFORMIN 500 mg tab(s) (GLUCOPHAGE) 500 mg ORAL BID w MEALS Ahmad H (Res) Ababneh montelukast 10 mg tab(s) (SINGULAIR) 10 mg ORAL AT BEDTIME Ahmad H (Res) Ababneh 10 mg at 03/03/18 2104 white petrolatum-mineral oil cream (EUCERIN) TOPICAL DAILY Magalys N (Hand Fabric Cutter) [place] Diagnostic tests reviewed: Most recent labs Most recent imaging Recent Labs 03/04/18 0455 03/03/18 2110 03/03/18 0415 03/02/18 0323 03/01/18 1100 GLUC 253* 398* 230* < > 297* < > 735* NA 138 135* 139 < > 136 < > 127* K 3.8 4.2 3.6 < > 3.7 < > 4.0 CHLOR 105 102 104 < > 103 < > 91* CO2 25 24 25 < > 22 < > 20* CREAT 1.19* 1.42* 1.25* < > 1.23* < > 1.51* BUN 24* 25* 28* < > 36* < > 55* ANION 12 13 14 < > 15 < > 20* CA 8.5 8.6 8.8 < > 8.1* < > 9.3 TPROT -- -- -- -- 7.0 -- 8.2 ALB -- -- -- -- 2.7* -- 3.2* TBILI -- -- -- -- 0.6 -- 0.9 ALKPHOS -- -- -- -- 106 -- 122* AST -- -- -- -- 14 -- 19 ALT -- -- -- -- 23 -- 28 < > = values in this interval not displayed. Most recent labs ASSESSMENT AND PLAN Assessment AND Plan, Most Recent Note from ALL Problems our Service Addressed Cardiovascular HTN (hypertension) - C/w amlodipine and lisinopril. - Will slowly titrate up as BP tolerates Nephrology Microscopic hematuria - Seen on UA. This is likely 2/2 UTI. - Will need repeat testing as OP to make sure of resolution. UTI (urinary tract infection) - Ceftriaxone switched to cefdinir 300 BID - Urine culture- mixed skin dani; Blood cultures NGTD - Patient reports symptomatic improvement Endocrinology * Diabetes mellitus type 2 with ketoacidosis, uncontrolled (HCC) - Patient presented initially with DKA, that has resolved in the ED with 8 units of regular insulin subq and 4 L NaCl - current insulin increased to basal 60 U and 20 w/meals+ SSI; metformin 500 mg BID (not increased d/t reduced GFR) - A1c 14.7 - Diabetes education completed - daily BMPs Poor control 2/2 lack of medication compliance - consult CM and SW for home going resources Diabetic ketoacidosis (HCC) Resolved- see above Rheumatology Degenerative joint disease -Monitor -will give tylenol for pain control PRN. Medication and Non-Pharmacologic VTE Prophylaxis/Anticoagul ants Anticoagulant AND Antiplatelet Medications Start Dose Route Frequency Ordered Stop 03/02/18 2110 enoxaparin 40 mg injection (LOVENOX) (Medical At Risk ) 40 mg SUBCUTANEOUS EVERY 12 HOURS 03/02/18 1117 -- 03/02/18 1600 aspirin 81 mg chewable tab(s) 81 mg ORAL DAILY 03/02/18 1545 -- 03/01/18 1715 pneumatic compression stockings (vt,sc) VTE Prophylaxis: VTE prophylaxis appropriate Plan of care discussed with: Attending and Patient SIGNATURE: Marielos Zhu DO PATIENT NAME: Cinthya Castillo DATE: March 04, 2018 TIME: 12:51 PM PAGER/CONTACT #: [phone] Normal [facility] THERAPY NTon 03-04-2018 THERAPY NT HNO ID: [id number] Author: Mariana PattenPt) MARIFER Mann Service: Physical Therapy Author Type: Physical Therapist Type: Therapy (PT/OT/Speech/Resp) Filed: 03/04/2018 2:21 PM Note Text: Physical Therapy Treatment SERVICE DATE: 03/04/2018 SERVICE TIME: 1322 to 1337 ROOM: [id number] Recommended Discharge Disposition: Outpatient Physical Therapy Recommended Discharge Disposition Comments: Patient at/near baseline for functional mobility but could benefit from continued higher level balance and gait Anticipated Discharge Needs: Physical Assist at Home Physical Assist at Home for: Cleaning;Laundry;Meals ;Stairs;Safety Supervision at Home due to: Impaired cognition (baseline developmental delay) PT Recommendations to Nursing: Ambulate with device;To bathroom;In halls;Transfer to/from chair;OOB for Meals;Utilize bed in chair position;Sit at edge of bed;With assist of 1 person Device: Cane PT 6 Clicks Score: 20 Precautions/Activity Restrictions: Fall Risk Isolation Type: None ASSESSMENT : Patient demonstrates fair/good endurance and overall tolerance to therapy today. Able to ambulate further distance with decreased assistance. patient occasionally requires cuing for technique/posture/mech anics but overall does fairly well. Please see functional mobility documented below. Patient Disposition at Start of Session: Supine in Bed;Call Grayson in Reach Patient Disposition at End of Session: Supine in Bed;Call Grayson in Reach Tolerance Limited By Other: See Comment (Needed to use bathroom) Physical Therapy Problem List: Education Deficit;Safety Deficits;Functional Mobility Impairment;Balance Impaired Patient /Caregiver Goals: Go Home Goals for Plan of Care: Rolling with: Independent Transfer supine to/from sit with: Independent Transfer sit to/from stand with: Independent Ambulate with: Modified Independent Distance: 45 Device: Cane Goal: Patient able to perform modified dynamic gait index with score > 10/12 Goal: Patient able to perform stretching/strengtheni ng and balance exercises Progress Toward Goals: Progressing as expected Rehab Potential: Good PLAN: Treatment Frequency (times per week): 5 (1-5) Current admission Treatment Interventions: Education;Energy Conservation Training;Joint Mobility;Strengthening ;Functional Mobility Training;Balance Training;Neuromuscular Re-education Plan of Care developed with: Patient TREATMENT INTERVENTIONS: Therapy Diagnosis: Reduced mobility-other Interventions Provided: Therapeutic Activity (71957) Therapeutic Activity (39091) Treatment Minutes: 15 1 unit Skilled Intervention(s): Instructed patient in supine to sit pushing with upper extremities to sit up Instructed patient in sit to supine using safe, effective technique Education/discussion on fall prevention during dynamic mobility and ambulation. Importance of keeping head upright to observe environment and safely navigate room/hallway Education/instruction on energy conservation techniques during bed mobility and transfers Education with Proper breathing technique Discussion on importance of performing activities for herself vs allowing staff to help - for example fixing the blankets on her bed. 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 Denies any pain/discomfort and Agreeable to PT Home Environment Patient Lives With: [facility] ([facility]) Assistance Available: 24 Hour Entry To Home: No Stairs Number Of Stairs To Bed/Bath: 3 Stairs to Bed/Bath with: Unilateral Rail Tub/Shower Type: tub shower Laundry: aids complete Equipment Owned: Cane Prior Functional Level: Within Functional Limits;Required Assistance Assistance Required With: Cleaning;Laundry;Meals ;Medication Management;Shopping;Tr ansportation Prior Functional Level Comments: indep with ADLs; uses cane out in the community OBJECTIVE: CURRENT FUNCTIONAL STATUS: Current Functional Mobility Assist Level Additional Information Rolling Modified Independent Supine to Sit Contact Guard Assistance Sit to Supine Independent Scooting Independent Sit to Stand Supervision Stand to Sit Supervision Bed to Chair Toilet/Commode Gait Supervision Gait Device: Cane Gait Distance (feet): 100x2 Stairs Curb Step Car Transfer General Gait Deviations: Arm swing decreased;Davidson decreased;Step length decreased;Wide base of support Balance: Dynamic Standing Dynamic Standing Balance: Stand By Assistance JH-HLM: 7: Walk 25 feet or more Functional Performance Test Functional Performance Test: Modified 4-Item Dynamic Gait Index Modified Dynamic Gait Index Gait on level surface: 3 Gait with speed changes: 2 Horizontal head turns: 2 Vertical head turns: 2 Total Score: 9 Please see discipline specific clinical documentation flowsheet for complete details for this therapy evaluation/treatment. SIGNATURE: Mariana Mann PT PATIENT NAME: Cinthya Castillo DATE: March 04, 2018 TIME: 2:19 PM Normal [facility] THERAPY NT HNO ID: [id number] Author: Bruna Rowan/Olman Pantoja OT Service: Occupational Therapy Author Type: Occupational Therapist Type: Therapy (PT/OT/Speech/Resp) Filed: 03/04/2018 9:27 AM Note Text: Occupational Therapy Treatment SERVICE DATE: 03/04/2018 SERVICE TIME: 824 to 849 ROOM: [id number] Recommended Discharge Disposition: Home Recommended Discharge Disposition Comments: Return to [facility] with continued assist for IADLs Anticipated Discharge Needs: Physical Assist at Home Physical Assist at Home for: Cleaning;Laundry;Meals ;Stairs;Safety Supervision at Home due to: Impaired cognition (baseline developmental delay) OT Recommendations to Nursing: To Bathroom for ADL?s /and or Toileting;OOB for meals;With assist of 1 person OT 6 Clicks Score: 23 Precautions/Activity Restrictions: Fall Risk Isolation Type: None ASSESSMENT: Patient Disposition at Start of Session: Supine in Bed;Call Grayson in Reach Patient Disposition at End of Session: Supine in Bed;Call Grayson in Reach Tolerated Full Session Occupational Therapy Problem List: Impaired Self Care;Decreased Activity Tolerance;Functional Mobility Impairment Patient /Caregiver Goals: Go Home Goals for Plan of Care: Grooming with: Independent Upper Body Bathing with: Independent Lower Body Bathing with: Independent Lower Body Dressing with: Independent Tolerate (minutes of functional activity): 25 Functional Activity with: Independent Transfer: all functional transfers: independent Progress Toward Goals: Progressing as expected PLAN: Treatment Frequency (times per week): 5 (1-4) Current admission Treatment Interventions: Education;Self Care / Home Management;Functional Mobility Training Plan of Care developed with: Patient TREATMENT INTERVENTIONS: Therapy Diagnosis: Reduced mobility-other;Decreas ed activities of daily living (ADL) Interventions Provided: Self Assisted Management (89741) Self Assisted Management (39455) Treatment Minutes: 25 2 units Skilled Intervention(s): Educated pt on role of OT follow-ups in the hospital. Facilitated safe functional mobility to/from bathroom to increase ADL independence / functional mobility safety; provided min verbal cuing and SBA. Provided opportunity for safe standing ADLs (oral hygiene, face washing, and hair grooming - washing with shampoo shower cap, drying, and brushing) at sink to increase ADL participation, ADL independence, UB endurance/strength, and standing activity tolerance. Provided cues, fall guarding assist, and sequencing for pt to complete ADLs successfully. Educated pt on benefits of completing her grooming activities frequently and as independently as able to maintain her independence with ADLs. Educated pt on fall prevention strategies, reinforcing the use of their call light / up with assistance for functional mobility; Pt left in bed, call light in reach upon OT exit. Total Timed Code Treatment Minutes: 25 Total Treatment Time (minutes): 25 FUNCTIONAL G CODE: OT 6 Clicks Score: 23 (03/04/18824) Self Care Current Status (G8987): CI (03/04/18824) Self Care Goal Status (G8988): CH (03/04/18824) Based on clinical assessment and the score on the 6 Clicks Functional Assessment Tool, the G code and corresponding severity modifiers are documented above. 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 C/o discomfort due to pimple on R buttock. Home Environment Patient Lives With: [facility]) Assistance Available: 24 Hour Entry To Home: No Stairs Number Of Stairs To Bed/Bath: 3 Stairs to Bed/Bath with: Unilateral Rail Tub/Shower Type: tub shower Laundry: aids complete Equipment Owned: Cane Prior Functional Level: Within Functional Limits;Required Assistance Assistance Required With: Cleaning;Laundry;Meals ;Medication Management;Shopping;Tr ansportation Prior Functional Level Comments: indep with ADLs; uses cane out in the community OBJECTIVE: Cognition/Communicatio n Deficits Responsiveness: Alert Follows Commands: 2-step Commands Psychosocial Deficit: Pt with developmental delay at baseline CURRENT FUNCTIONAL STATUS: Current Activities of Daily Living Assist Level Feeding Set Up Grooming Stand By Assistance Bathing Upper Body Contact Guard Assistance Bathing Lower Body Contact Guard Assistance Dressing Upper Body Independent Dressing Lower Body Stand By Assistance Toileting Stand By Assistance Instrumental Activities of Daily Living Assist Level Meal/Beverage Prep Total Assistance Light Cleaning Total Assistance Laundry Total Assistance Medication Management with Strategies Total Assistance Functional Mobility Assist Level Rolling Supine to Sit Stand By Assistance Sit to Supine Stand By Assistance Scooting Sit to Stand Stand By Assistance Stand to Sit Stand By Assistance Bed to Chair Toilet/Commode Stand By Assistance Functional Mobility Stand By Assistance Cane (as needed) Activity Tolerance: Standing Activity Standing Activity: Functional mobility to/from bathroom; sink ADLs Standing Activity Tolerance (in minutes): 15 Please see discipline specific clinical documentation flowsheet for complete details for this therapy evaluation/treatment. SIGNATURE: MAEVE Loomis/Jaky PATIENT NAME: Cinthya Castillo DATE: March 04, 2018 TIME: 9:24 AM Normal [facility] Basic Panelon 03-03-2018 Creatinine mass conc 1.42 mg/dL High 0.51-0.95 [facility] Comment on above: Performed By: #### E DGLG #### [facility] [address] [place], [place] [address] Anion gap molar conc 13 mmol/L Normal 8-16 [facility] Comment on above: Performed By: #### E DGLG #### [facility] [address] [place], [place] [address] CO2 molar conc 24 mmol/L Normal 21-32 [facility] Comment on above: Performed By: #### E DGLG #### [facility] [address] [place], [place] [address] Glucose mass conc 398 mg/dL High 70-99 [facility] Comment on above: Performed By: #### E DGLG #### [facility] [address] [place], [place] [address] Urea nitrogen mass conc 25 mg/dL High 7-18 [facility] Comment on above: Performed By: #### E DGLG #### [facility] [address] [place], [place] [address] Calcium mass conc 8.6 mg/dL Normal 8.5-10.1 [facility] Comment on above: Performed By: #### E DGLG #### [facility] [address] [place], [place] [address] Chloride molar conc 102 mmol/L Normal 98-107 [facility] Comment on above: Performed By: #### E DGLG #### [facility] [address] [place], [place] [address] Potassium molar conc 4.2 mmol/L Normal 3.5-5.1 [facility] Comment on above: Performed By: #### E DGLG #### [facility] [address] [place], [place] [address] Sodium molar conc 135 mmol/L Low 136-145 [facility] Comment on above: Performed By: #### E DGLG #### [facility] [address] [place], [place] [address] Creatinine mass conc 1.25 mg/dL High 0.51-0.95 [facility] Comment on above: Performed By: #### E DGLG #### [facility] [address] [place] [address] Urea nitrogen mass conc 28 mg/dL High 7-18 [facility] Comment on above: Performed By: #### E DGLG #### [facility] [address] [place] [address] Anion gap molar conc 14 mmol/L Normal 8-16 [facility] Comment on above: Performed By: #### E DGLG #### [facility] [address] [place] [address] Calcium mass conc 8.8 mg/dL Normal 8.5-10.1 [facility] Comment on above: Performed By: #### E DGLG #### [facility] [address] [place] [address] CO2 molar conc 25 mmol/L Normal 21-32 [facility] Comment on above: Performed By: #### E DGLG #### [facility] [address] [place] [address] Glucose mass conc 230 mg/dL High 70-99 [facility] Comment on above: Performed By: #### E DGLG #### [place] [address] Chloride molar conc 104 mmol/L Normal 98-107 [facility] Comment on above: Performed By: #### E DGLG #### [place] [address] Potassium molar conc 3.6 mmol/L Normal 3.5-5.1 [facility] Comment on above: Performed By: #### E DGLG #### [facility] [address] [place] [address] Sodium molar conc 139 mmol/L Normal 136-145 [facility] Comment on above: Performed By: #### E DGLG #### [place] [address] Hemogramon 12-13-2018 Erythrocyte distribution width Ratio (RBC) 12.3 % Normal 11.7-14.4 [facility] Comment on above: Performed By: #### E DGLG #### [facility] [address] [place] [address] Hematocrit Volume Fraction (Bld) 34.1 % Normal 34.1-44.9 [facility] Comment on above: Performed By: #### E DGLG #### [facility] [address] [place] [address] Hemoglobin mass conc (Bld) 11.3 g/dL Normal 11.2-15.7 [facility] Comment on above: Performed By: #### E DGLG #### [place] [address] MCH Entitic mass (RBC) 31.0 pg Normal 25.6-32.2 [facility] Comment on above: Performed By: #### E DGLG #### [facility] [address] [place] [address] MCHC mass conc (RBC) 33.1 % Normal 31.6-34.8 [facility] Comment on above: Performed By: #### E DGLG #### [place] [address] MCV Entitic volume (RBC) 93.4 fL Normal 79.4-94.8 [facility] Comment on above: Performed By: #### E DGLG #### [facility] [address] [place] [address] Platelet mean volume Entitic volume (Bld) 10.8 fL Normal 9.4-12.3 [facility] Comment on above: Performed By: #### E DGLG #### [facility] [address] [place] [address] Platelets #/vol (Bld) 268 thou/cmm Normal 182-369 [facility] Comment on above: Performed By: #### E DGLG #### [facility] [address] [place] [address] RBC #/vol (Bld) 3.65 mil/cmm Low 3.93-5.22 [facility] Comment on above: Performed By: #### E DGLG #### [facility] [address] [place], [place] [address] RDW SD 42.5 fl Normal 36.4-46.3 [facility] Comment on above: Performed By: #### E DGLG #### [address] [address] WBC #/vol (Bld) 12.31 thou/cmm High 3.98-10.04 [facility] Comment on above: Performed By: #### E DGLG #### [address] [address] Lipid Profileon 03-03-2018 Cholesterol in HDL mass conc 29 mg/dL Normal >40 [facility] Comment on above: Performed By: #### E DGLG #### [address] [address] Cholesterol in LDL mass conc 64 mg/dL Normal [facility] Comment on above: Result Comment: No C AD and with fewer than 2 CAD risk factors <160 mg/dL No CAD but with 2 or more CAD risk factors <130 mg/dL Definite CAD or other atherosclerotic disease <100 mg/dL Performed By: #### E DGLG #### [address] [address] Cholesterol in LDL/Cholesterol in HDL mass ratio 2.2 Normal 0.6-3.6 [facility] Comment on above: Result Comment: LDL, VLDL,LDL/HDL, Invalid if Triglyceride >400 Performed By: #### E DGLG #### [facility] [address] [place], [place] [address] Cholesterol.total/Maude sterol in HDL mass ratio 4.6 {ratio} Normal 1.8-5.3 [facility] Comment on above: Performed By: #### E DGLG #### [address] [address] Cholesterol in VLDL mass conc 41 mg/dL Normal <50 Desired [facility] Comment on above: Performed By: #### E DGLG #### [facility] [address] [place], [place] [address] Triglyceride mass conc 207 mg/dL High 0-149 [facility] Comment on above: Result Comment: < 20 0 Desirable Result invalid if not a fasting specimen. Performed By: #### E DGLG #### [facility] [address] [place], [place] [address] Cholesterol mass conc 134 mg/dL Normal 0-199 [facility] Comment on above: Result Comment: <200 Desirable 200-240 Borderline >240 High Performed By: #### E DGLG #### [facility] [address] [place], [place] [address] NURSING PROGon 03-03-2018 Protein mass conc HNO ID: [id number] Author: Graciela (Rn) SUNDEEP Pineda Service: Nursing Author Type: Registered Nurse Type: Nursing Progress Note Filed: 03/03/2018 8:50 PM Note Text: Spoke with house med resident about pt. Blood sugar being critically high. Accucheck machine unable to read blood sugar due to being high. Orders for log sliding scale given and for BMP to be sent. Normal [facility] PROGRESSon 03-03-2018 Protein mass conc HNO ID: [id number] Author: Marielso Zhu Service: Hospital Medicine Author Type: Resident Type: Progress Notes Filed: 03/03/2018 2:42 PM Note Text: Attestation signed by Zeke Montague at 03/03/2018 5:34 PM House Medicine Service Attending Attestation I evaluated the patient and personally participated in the craig components. 57 yo female with hx of HTN, DM, developmental delay, and OA/DJD who presented to the ED s/p fall and was admitted with DKA; also with UTI. HX: Blood glucose improved. Spoke with lead case manager this morning; unlikely to be able to provide more supervision on medication adherence but will explore options. Will also confer with PCP for preferred insulin regimen (basal-bolus vs. 70/30 bid). PE: BP 118/71 Pulse 106 Temp 36 ?C (96.8 ?F) (Oral) Resp 20 Ht 167.6 cm (5' 6") Wt 117.5 kg (259 lb) SpO2 94% BMI 41.80 kg/m? . WD, obese, pleasant, NAD. RRR with nl s1 and s2 and no murmurs. LCTAB without crackles, wheezes, or rhonchi. Abdomen soft, NT, ND without masses or HSM. No peripheral edema. Creatinine 1.16->1.25. TC 134, TG 207, HDL 29, LDL 64. BG 300, >400, 382, 273, 275, 377, 378. MDM: Continue basal-bolus insulin regimen at increased doses. Increase metformin from 500mg bid to 1000mg bid after 1 week. Diabetic education. Switch ceftriaxone to cefdinir for presumed UTI. Zeke Montague MD 03/03/2018 5:27 PM SERVICE DATE: 03/03/2018 SERVICE TIME: 7:42 AM HOSPITAL MEDICINE PROGRESS NOTE HPI Patient is a 57 yo F with pmhx of HTN, DM, developmental delay is presenting after having a fall at which time she was noted to be in DKA and found to have a UTI. She was given 8U of insulin and 4L of IV fluids with resolution of DKA. Patient's BG is trending down from 700s to 200s. A1c found to be 14.7. Poor control likely due to lack of resources and patient's developmental delay. Patient has a case coordinator who has helped with her medications in the past. SUBJECTIVE Interval Events: Improved No acute events overnight. BG continues to improve currently 230 on AM BMP. Patient states that she still has some dysuria but denies fevers, chills, nausea, lightheadedness or headaches. She states that she does not feel like going home today. When asked why, patient reported that she does not feel like it. Confirmed that she feels safe at home. OBJECTIVE BP 122/77 Pulse 115 Temp (Src) 98.6 (Oral) Resp 20 Ht 5' 6" (1.68m) Wt 259 lb (117.5kg) SpO2 94% BMI 41.82 kg/(m2). Physical Exam Performed: GENERAL: GENERAL APPEARANCE NCCC: well appearing, alert and in no acute distress HEART: HEART CCF: regular rate and rhythm, no murmer, gallop or rub, normal, S1, S2, no lifts, heaves, or thrills, PMI not displaced LUNGS: LUNGS CCF: clear to percussion and auscultation and no rales ABDOMEN: ABDOMEN: Soft, nontender, bowel sounds normal, no palpable organomegaly, no bruits. EXTREMITY: EXTREMITY EXAM: Normal exam of the extremities. No clubbing, cyanosis, or edema. The remainder of the physical exam is noncontributory. Lines, Drains, and Airways Line Peripheral 03/01/18 1033 Admission to Hospital Short Right Hand 20 Gauge 1 day Reviewed lines, drains, AND airways. Need to be continued . Medications: Reviewed Current Facility-Administered Medications: amLODIPine 10 mg tab(s) (NORVASC) 10 mg ORAL DAILY Roberto Carlos (Res) Pannikottu 10 mg at 03/02/18 0910 aspirin 81 mg chewable tab(s) 81 mg ORAL DAILY Ahmad H (Res) Ababneh 81 mg at 03/02/18 1734 atorvastatin 40 mg tab(s) (LIPITOR) 40 mg ORAL AT BEDTIME Ahmad H (Res) Ababneh 40 mg at 03/02/18 2112 cefTRIAXone iv piggyback 1 g in dextrose (iso-osmotic) 50 mL (ROCEPHIN) 1 g INTRAVENOUS q 24 H Roberto Carlos (Res) Pannikottu Last Rate: 100 mL/hr at 03/02/18 0910 1 g at 03/02/18 0910 dextrose 40 % 15 g 15 g ORAL PRN Roberto Carlos (Res) Pannikottu Or glucagon 1 mg injection (GLUCAGEN) 1 mg INTRAMUSCULAR PRN Roberto Carlos (Res) Pannikottu Or dextrose 50% in water 25 mL syringe 12.5 g INTRAVENOUS PRN Roberto Carlos (Res) Pannikottu enoxaparin 40 mg injection (LOVENOX) 40 mg SUBCUTANEOUS q 12 HR Ahmad H (Res) Ababneh 40 mg at 03/02/182111 gabapentin 600 mg cap(s) (NEURONTIN) 600 mg ORAL TID Ahmad H (Res) Ababneh 600 mg at 03/02/182111 insulin glargine 35 Units pen (long acting) (LANTUS SOLOSTAR, BASAGLAR KWIKPEN) 35 Units SUBCUTANEOUS AT BEDTIME Zeke Montague 35 Units at 03/02/182112 insulin lispro 12 Units pen (rapid acting) (HumaLOG KWIKPEN) 12 Units SUBCUTANEOUS w MEALS Zeke Montague 12 Units at 03/02/18 173 insulin lispro pen (rapid acting) (HumaLOG KWIKPEN) SUBCUTANEOUS w MEALS Zeke Montague 10 Units at 03/02/181734 insulin lispro pen (rapid acting) (HumaLOG KWIKPEN) SUBCUTANEOUS AT BEDTIME Zeke Montague 6 Units at 03/02/182111 lisinopril 20 mg tab(s) (ZESTRIL, PRINIVIL) 20 mg ORAL DAILY Roberto Carlos (Res) Pannikottu 20 mg at 03/02/18 0910 metFORMIN 500 mg tab(s) (GLUCOPHAGE) 500 mg ORAL BID w MEALS Ahmad H (Res) Ababneh 500 mg at 03/02/181733 montelukast 10 mg tab(s) (SINGULAIR) 10 mg ORAL AT BEDTIME Ahmad H (Res) Ababneh 10 mg at 03/02/182111 white petrolatum-mineral oil cream (EUCERIN) TOPICAL DAILY Magalys N (Hand Fabric Cutter) [place] Diagnostic tests reviewed: Most recent labs Most recent imaging Recent Labs 03/03/18 0415 03/02/18 0323 03/01/18 1524 WBC 12.31* 14.22* 15.08* RBC 3.65* 3.61* 4.03 HB 11.3 11.0* 12.3 HCT 34.1 33.2* 36.3 PLT 268 261 268 MCV 93.4 92.0 90.1 MCH 31.0 30.5 30.5 MPV 10.8 10.8 10.3 RDW 12.3 12.6 12.3 Recent Labs 03/03/18 0415 03/02/18 1215 03/02/18 0323 03/01/18 1100 GLUC 230* 447* 297* < > 735* NA 139 132* 136 < > 127* K 3.6 4.0 3.7 < > 4.0 CHLOR 104 98 103 < > 91* CO2 25 22 22 < > 20* CREAT 1.25* 1.16* 1.23* < > 1.51* BUN 28* 32* 36* < > 55* ANION 14 16 15 < > 20* CA 8.8 8.8 8.1* < > 9.3 TPROT -- -- 7.0 -- 8.2 ALB -- -- 2.7* -- 3.2* TBILI -- -- 0.6 -- 0.9 ALKPHOS -- -- 106 -- 122* AST -- -- 14 -- 19 ALT -- -- 23 -- 28 < > = values in this interval not displayed. Most recent labs ASSESSMENT AND PLAN Assessment AND Plan, Most Recent Note from ALL Problems our Service Addressed Cardiovascular HTN (hypertension) - C/w amlodipine and lisinopril. - Will slowly titrate up as BP tolerates Nephrology Microscopic hematuria - Seen on UA. This is likely 2/2 UTI. - Will need repeat testing as OP to make sure of resolution. UTI (urinary tract infection) - Ceftriaxone switched to cefdinir 300 BID - Urine culture- mixed skin dani; Blood cultures NGTD - Patient reports symptomatic improvement Endocrinology * Diabetes mellitus type 2 with ketoacidosis, uncontrolled (HCC) - Patient presented initially with DKA, that has resolved in the ED with 8 units of regular insulin subq and 4 L NaCl - current insulin increased to basal 45 U and 15 w/meals+ SSI; metformin 500 mg BID - A1c 14.7 - Diabetes education completed - daily BMPs Poor control 2/2 lack of medication compliance - consult CM and SW for home going resources Diabetic ketoacidosis (HCC) Resolved- see above Rheumatology Degenerative joint disease -Monitor -will give tylenol for pain control PRN. Medication and Non-Pharmacologic VTE Prophylaxis/Anticoagul ants Anticoagulant AND Antiplatelet Medications Start Dose Route Frequency Ordered Stop 03/02/180 enoxaparin 40 mg injection (LOVENOX) (Medical At Risk ) 40 mg SUBCUTANEOUS EVERY 12 HOURS 03/02/18 1117 -- 03/02/18 1600 aspirin 81 mg chewable tab(s) 81 mg ORAL DAILY 03/02/18 1545 -- 03/01/18 1715 pneumatic compression stockings (vt,oh) VTE Prophylaxis: VTE prophylaxis appropriate Plan of care discussed with: Attending and Patient SIGNATURE: Marielos Zhu DO PATIENT NAME: Cinthya Castillo DATE: March 03, 2018 TIME: 7:42 AM PAGER/CONTACT #: [phone] Normal [facility] THERAPY NTon 03-03-2018 THERAPY NT HNO ID: [id number] Author: Mariana (Pt) MARIFER Mann Service: Physical Therapy Author Type: Physical Therapist Type: Therapy (PT/OT/Speech/Resp) Filed: 03/03/2018 9:27 AM Note Text: Physical Therapy Treatment SERVICE DATE: 03/03/2018 SERVICE TIME: 839 to 03 ROOM: [place] [address] Recommended Discharge Disposition: Outpatient Physical Therapy Recommended Discharge Disposition Comments: Patient at/near baseline for functional mobility but could benefit from continued higher level balance and gait Anticipated Discharge Needs: Physical Assist at Home Physical Assist at Home for: Cleaning;Laundry;Meals ;Stairs;Safety Supervision at Home due to: Impaired cognition (baseline developmental delay) PT Recommendations to Nursing: Ambulate with device;To bathroom;In halls;Transfer to/from chair;OOB for Meals;Utilize bed in chair position;Sit at edge of bed;With assist of 1 person Device: Cane PT 6 Clicks Score: 20 Precautions/Activity Restrictions: Fall Risk Isolation Type: None ASSESSMENT : Patient demonstrates fair/good endurance and overall tolerance to therapy today. Patient initially apprehensive about therapy but with encouragement agreeable. Mild difficulty with supine to sit, however she was able to perform safely and I continue to feel she will improve. I still agree with recommendation for outpatient to further work on balance and overall endurance. Please see functional mobility documented below. Patient Disposition at Start of Session: Supine in Bed;Call Grayson in Reach Patient Disposition at End of Session: Supine in Bed;Call Grayson in Reach Tolerated Full Session Physical Therapy Problem List: Education Deficit;Safety Deficits;Functional Mobility Impairment;Balance Impaired Patient /Caregiver Goals: Go Home Goals for Plan of Care: Rolling with: Independent Transfer supine to/from sit with: Independent Transfer sit to/from stand with: Independent Ambulate with: Modified Independent Distance: 45 Device: Cane Goal: Patient able to perform modified dynamic gait index with score > 10/12 Goal: Patient able to perform stretching/strengtheni ng and balance exercises Progress Toward Goals: Progressing as expected Rehab Potential: Good PLAN: Treatment Frequency (times per week): 5 (1-5) Current admission Treatment Interventions: Education;Energy Conservation Training;Joint Mobility;Strengthening ;Functional Mobility Training;Balance Training;Neuromuscular Re-education Plan of Care developed with: Patient TREATMENT INTERVENTIONS: Therapy Diagnosis: Reduced mobility-other Interventions Provided: Therapeutic Exercise (60702);Therapeutic Activity (41478) Therapeutic Exercise (80662) Treatment Minutes: 15 1 unit Skilled Intervention(s): Instruction in therapeutic exercise . Verbal and tactile cuing provided . to perform properly without compensation or use of momentum. Supine - AP/QS 10x SLR 10x 2 ea Sitting - AP/QS/LAQ 20x Alternate May 10x Posture/scapular correction/retractions 15x Sit to stand - 5x (with minimal use of hands - however raised seating surface) Standing - Static stance 2 minutes Therapeutic Activity (38168) Treatment Minutes: 8 1 unit Skilled Intervention(s): Instructed patient in log roll technique Instructed patient in supine to sit pushing with upper extremities to sit up Instructed patient in sit to supine using safe, effective technique Education/instruction on energy conservation techniques during bed mobility and transfers Education with importance of postural mechanics throughout static/dynamic mobility. Education/discussion on fall prevention during dynamic mobility and ambulation. 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 Denies any pain/discomfort and Agreeable to PT Home Environment Patient Lives With: Facility Care ([facility]) Assistance Available: 24 Hour Entry To Home: No Stairs Number Of Stairs To Bed/Bath: 3 Stairs to Bed/Bath with: Unilateral Rail Tub/Shower Type: tub shower Laundry: aids complete Equipment Owned: Cane Prior Functional Level: Within Functional Limits;Required Assistance Assistance Required With: Cleaning;Laundry;Meals ;Medication Management;Shopping;Tr ansportation Prior Functional Level Comments: indep with ADLs; uses cane out in the community OBJECTIVE: CURRENT FUNCTIONAL STATUS: Current Functional Mobility Assist Level Additional Information Rolling Modified Independent Supine to Sit Contact Guard Assistance Sit to Supine Independent Scooting Independent Sit to Stand Stand By Assistance Stand to Sit Stand By Assistance Bed to Chair Toilet/Commode Gait Stand By Assistance Gait Device: Cane Gait Distance (feet): 75x2 Stairs Curb Step Car Transfer General Gait Deviations: Arm swing decreased;Davidson decreased;Step length decreased;Wide base of support Balance: Dynamic Standing Dynamic Standing Balance: Contact Guard Assistance -HLM: 7: Walk 25 feet or more Functional Performance Test Functional Performance Test: Modified 4-Item Dynamic Gait Index Modified Dynamic Gait Index Gait on level surface: 3 Gait with speed changes: 1 Horizontal head turns: 2 Vertical head turns: 2 Total Score: 8 Patient in bed with call light and phone in reach on bedside table. Advised to use call light and wait for assist to get up. Please see discipline specific clinical documentation flowsheet for complete details for this therapy evaluation/treatment. SIGNATURE: Mariana Mann PT PATIENT NAME: Cinthya Castillo DATE: March 03, 2018 TIME: 9:25 AM Normal [facility] ALLIED HEALTHon 03-02-2018 ALLIED HEALTH HNO ID: [id number] Author: Cinthya (Rn) SUNDEEP Maloney Service: Diabetes Education Author Type: Registered Nurse Type: Allied Health Filed: 03/02/2018 4:23 PM Note Text: DIABETES EDUCATION PROGRESS NOTE SERVICE DATE: 03/02/2018 SERVICE TIME: 1500 RECOMMENDATIONS: Patient needs to follow-up with primary care physician after discharge. Prescriptions for diabetic supplies -insulin and glucometer. Patient lives at Adult [facility] and has meals provided and clothes washed. Patient states she takes her own medicine. Will need simple insulin regimen and supervision. PATIENT HISTORY/ASSESSMENT: Previously diagnosed: Type 2 Treatment prior to hospitalization: Oral Agent(s): Metformin and Lantus Needs blood glucose meter: Needs TOPIC(S): Survival Skills: Basic diabetes mellitus disease process Medication therapy: Injectables - Insulin lispro (Humalog) and Insulin glargine (Lantus) Injectable instructions - Storage, Selection/rotation, Injection technique, Injection site and Disposal of sharps patient gave adequate return demonstration Acute complications: Hypoglycemia and Hyperglycemia Blood glucose monitoring: Timing techniques, Logging results Blood glucose targets: Type I/Type II: Pre-meal 70-130 mg/dl, Bedtime glucose 100-140 mg/dl Patient Education/Health Promotion: Self management and follow up Diabetes Management: when to call the doctor EDUCATION: Cognitive ability: Developmentally Disabled. Motivation to learn: Reluctant. Barriers to learning: Developmentally disbled Family support: patient lives at [facility] Education Type: Individual instruction Written instruction - handouts Verbal instruction Demonstration-Hands on Learning Response to education: States/Identifies, Return Demonstration, Needs Review and will need assist and supervision at [facility]. Education provided to: Patient. Teachback method used. Time Spent (Minutes): 30 SIGNATURE: Cinthya Maloney RN PATIENT NAME: Cinthya Castillo DATE: March 02, 2018 TIME: 4:17 PM PAGER: [phone] Normal [facility] Basic Panelon 03-02-2018 Creatinine mass conc 1.16 mg/dL High 0.51-0.95 [facility] Comment on above: Performed By: #### E DGLG #### [place] [address] Anion gap molar conc 16 mmol/L Normal 8-16 [facility] Comment on above: Performed By: #### E DGLG #### [place] [address] Calcium mass conc 8.8 mg/dL Normal 8.5-10.1 [facility] Comment on above: Performed By: #### E DGLG #### [place] [address] CO2 molar conc 22 mmol/L Normal 21-32 [facility] Comment on above: Performed By: #### E DGLG #### [facility] [address] [place] [address] Glucose mass conc 447 mg/dL Critically high 70-99 [facility] Comment on above: Performed By: #### E DGLG #### [place] [address] Urea nitrogen mass conc 32 mg/dL High 7-18 [facility] Comment on above: Performed By: #### E DGLG #### [place] [id number] Chloride molar conc 98 mmol/L Normal 98-107 [facility] Comment on above: Performed By: #### E DGLG #### [facility] [address] [place], [place] [address] Potassium molar conc 4.0 mmol/L Normal 3.5-5.1 [facility] Comment on above: Performed By: #### E DGLG #### [facility] [address] [place] [address] Sodium molar conc 132 mmol/L Low 136-145 [facility] Comment on above: Performed By: #### E DGLG #### [facility] [address] [place] [address] Creatinine mass conc 1.10 mg/dL High 0.51-0.95 [facility] Comment on above: Performed By: #### E DKG #### [place] [address] Urea nitrogen mass conc 37 mg/dL High 7-18 [facility] Comment on above: Performed By: #### E DKG #### [facility] [address] [place] [address] Anion gap molar conc 16 mmol/L Normal 8-16 [facility] Comment on above: Performed By: #### E DKG #### [facility] [address] [place], [place] [address] Calcium mass conc 8.8 mg/dL Normal 8.5-10.1 [facility] Comment on above: Performed By: #### E DKG #### [facility] [address] [place] [address] CO2 molar conc 20 mmol/L Low 21-32 [facility] Comment on above: Performed By: #### E DKG #### [facility] [address] [place] [address] Glucose mass conc 359 mg/dL High 70-99 [facility] Comment on above: Performed By: #### E DKG #### [place] [address] Chloride molar conc 102 mmol/L Normal 98-107 [facility] Comment on above: Performed By: #### E DKG #### [facility] [address] [place], [place] [address] Potassium molar conc 3.8 mmol/L Normal 3.5-5.1 [facility] Comment on above: Performed By: #### E DKG #### [facility] [address] [place], [place] [address] Sodium molar conc 134 mmol/L Low 136-145 [facility] Comment on above: Performed By: #### E DKG #### [facility] [address] [place] [address] CASE MGT INIT RANDIon 2017 CASE MGT INIT RANDI HNO ID: [id number] Author: Radha (Rn) SUNDEEP Thomas Service: Care Management Author Type: Registered Nurse Type: Care Mgt Initial Assessment Filed: 03/02/2018 1:18 PM Note Text: CARE MANAGEMENT: ASSESSMENT AND DISCHARGE PLAN SERVICE DATE: 03/02/2018 SERVICE TIME: 11:21 AM PRIMARY CARE PHYSICIAN: Kristel Nunes MD ADMISSION STATUS: Inpatient Needs Prior to Discharge: To Be Determined 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 No Advance Directive: Current Advance Directive: None News Commentator Attempted to Assist with AD Completion: Yes Action: Education Provided Health Literacy: 1. How often do you need to have someone help you when you read instructions, pamphlets, or other written material from your doctor or pharmacy? Often - 4 2. How confident are you filling out medical forms by yourself? A little bit - 4 If Patient scores > 3 on either question, the following interventions were put into place: Use of plain language and active listening with Patient and family, Teach back methods employed to ensure comprehension, Use concrete and specific phrases, avoid medical jargon, Forms of communication used with patient and family, Sit with Patient, Gave Patient the opportunity to ask questions and stated her early childhood education worker Clifton usually assists with medical information FUNCTIONAL AND COGNITIVE/BEHAVIORAL PRIOR TO ADMISSION: Baseline Mental Status: Alert AND Oriented, Person, Place , Time and Situation Functional Status: Needs Assistance Does Patient Currently Receive Any Community Services or Home Care? Social Agency: [facility], CARLA Murray [phone] Equipment Prior to Admission: Cane - Straight Has the Patient Been in a Group Home Facility in the Past 30 days? No SOCIAL: Living Arrangement: Home, lives in a facility known as [facility]. An "adult" [facility] Lives With: essentially a [facility], with multiple adults Financial Resources: Disabled Primary Contact: Extended Emergency Contact Information Primary Emergency Contact: Bledsoe,Clifton Mobile Relation: [facility] News Commentator Supportive: Yes Other Important Patient Contacts: Joyce Edouard, vp product marketing of [facility], facility in which patient resides [phone] Caregiver Assessment: Caregiver is ready, willing and able to meet the patient's needs as recommended by the inter-professional team? Yes Patient's transition needs and plan for meeting these needs: return to adult "group" home Does the patient have an acute stroke diagnosis, or has the patient had a stroke during this admission? No Medication Adherence: I am convinced of the importance of my prescription medication: Agree completely - 0 I worry that my prescription medication will do more harm than good to me Disagree completely - 0 I feel financially burdened by my [id number] expenses for my prescription medication: Disagree completely - 0 Patient is categorized as low risk < 2 Are you interested in bedside delivery of your medications? No Food Concerns: In the Last Month, Have You had Trouble Getting Food? No trouble getting food During the Last Month, Have You Worried Whether Your Food Would Run Out Before You Had Enough Money to Buy More? No Is the Patient Psychosocially Complex? No ASSESSMENT AND PLAN: Medical Needs: None Psychosocial Needs: None FREEDOM OF CHOICE EXPLAINED: No not indicated at this time POTENTIAL TRANSITION PLANS Outpatient Therapy SPoke to patient and Clifton Murray, the patient's careers adviser from [facility],at bedside. Patient resides in essentially an adult [facility]. Clifton provides transportation and can provide transport at d/c. +Rx coverage- patient has docudose delivered from [facility] on [address]. Clifton does assist patient as needed with medical forms and social needs as they present themselves. No current needs identified. Will continue to follow. SIGNATURE: Radha Thomas RN PATIENT NAME: Cinthya Castillo DATE: March 02, 2018 TIME: 11:21 AM PAGER/CONTACT #: [phone] Normal [facility] CONSULT PROGon 03-02-2018 Protein mass conc HNO ID: [id number] Author: Cassandra PattenRn) SUNDEEP Barkley Service: Wound Care Team Author Type: Registered Nurse Type: Consult Progress Note Filed: 03/02/2018 9:19 AM Note Text: WOUND CARE NURSE CONSULT NOTE SERVICE DATE: 03/02/2018 SERVICE TIME: 835 REASON FOR VISIT: Wound TIME SPENT (minutes): 15 Wound care consulted for right elbow. Patient seen by Luba Mazariegos, JORDON-C, and swati welding specialist. Abrasion to right elbow. Start xeroform, and cover dressing daily. Dermatologic rash/wound to buttocks. Start critic aid clear BID and PRN incontinence to bilateral buttocks. Allevyn to sacrum. Turn schedule. NVD086 bed. Offload heels with pillows. Eucerin to BLE and feet, avoid between toes, daily. Wound care to sign off. Please reconsult if needed. Documentation from Wound Expert can be found in scanned documents. SIGNATURE: Cassandra Barkley RN, CWOCN PATIENT NAME: Cinthya Castillo DATE: March 02, 2018 TIME: 9:17 AM CONTACT#: [id number] Normal [facility] Comprehensive Panelon 2017 ALP enzyme act/vol 106 U/L Normal 46-116 [facility] Comment on above: Performed By: #### E DKG #### [facility] [address] [place], [place] [address] Protein mass conc 7.0 g/dL Normal 6.4-8.2 [facility] Comment on above: Performed By: #### E DKG #### [facility] [address] [place], [place] [address] Bilirubin mass conc 0.6 mg/dL Normal 0.2-1.0 [facility] Comment on above: Performed By: #### E DKG #### [facility] [address] [place], [place] [address] ALT enzyme act/vol 23 U/L Normal [facility] Comment on above: Performed By: #### E DKG #### [facility] [address] [place], [place] [address] AST enzyme act/vol 14 U/L Normal 9-37 [facility] Comment on above: Performed By: #### E DKG #### [facility] [address] [place], [place] [address] Creatinine mass conc 1.23 mg/dL High 0.51-0.95 [facility] Comment on above: Performed By: #### E DKG #### [facility] [address] [place] [address] Glucose mass conc 297 mg/dL High 70-99 [facility] Comment on above: Performed By: #### E DKG #### [facility] [address] [place] [address] Albumin mass conc 2.7 g/dL Low 3.4-5.0 [facility] Comment on above: Performed By: #### E DKG #### [facility] [address] [place] [address] Anion gap molar conc 15 mmol/L Normal 8-16 [facility] Comment on above: Performed By: #### E DKG #### [facility] [address] [place], [place] [address] Calcium mass conc 8.1 mg/dL Low 8.5-10.1 [facility] Comment on above: Performed By: #### E DKG #### [facility] [address] [place] [address] CO2 molar conc 22 mmol/L Normal 21-32 [facility] Comment on above: Performed By: #### E DKG #### [facility] [address] [place], [place] [address] Urea nitrogen mass conc 36 mg/dL High 7-18 [facility] Comment on above: Performed By: #### E DKG #### [facility] [address] [place] [address] Chloride molar conc 103 mmol/L Normal 98-107 [facility] Comment on above: Performed By: #### E DKG #### [facility] [address] [place] [address] Potassium molar conc 3.7 mmol/L Normal 3.5-5.1 [facility] [facility] Comment on above: Performed By: #### E DKG #### [facility] [address] [place] [address] Sodium molar conc 136 mmol/L Normal 136-145 [facility] Comment on above: Performed By: #### E DKG #### [facility] [address] [place] [address] Hemogramon 03-02-2018 Erythrocyte distribution width Ratio (RBC) 12.6 % Normal 11.7-14.4 [facility] Comment on above: Performed By: #### E DKG #### [facility] [address] [place] [address] Hematocrit Volume Fraction (Bld) 33.2 % Low 34.1-44.9 [facility] Comment on above: Performed By: #### E DKG #### [place] [address] Hemoglobin mass conc (Bld) 11.0 g/dL Low 11.2-15.7 [facility] Comment on above: Performed By: #### E DKG #### [place] [address] MCH Entitic mass (RBC) 30.5 pg Normal 25.6-32.2 [facility] Comment on above: Performed By: #### E DKG #### [place] [address] MCHC mass conc (RBC) 33.1 % Normal 31.6-34.8 [facility] Comment on above: Performed By: #### E DKG #### [facility] [address] [place] [address] MCV Entitic volume (RBC) 92.0 fL Normal 79.4-94.8 [facility] Comment on above: Performed By: #### E DKG #### [place] [address] Platelet mean volume Entitic volume (Bld) 10.8 fL Normal 9.4-12.3 [facility] Comment on above: Performed By: #### E DKG #### [facility] [address] [place] [address] Platelets #/vol (Bld) 261 thou/cmm Normal 182-369 [facility] Comment on above: Performed By: #### E DKG #### [facility] [address] [place] [address] RBC #/vol (Bld) 3.61 mil/cmm Low 3.93-5.22 [facility] Comment on above: Performed By: #### E DKG #### [facility] [address] [place] [address] RDW SD 42.4 fl Normal 36.4-46.3 [facility] Comment on above: Performed By: #### E DKG #### [facility] [address] [place] [address] WBC #/vol (Bld) 14.22 thou/cmm High 3.98-10.04 [facility] Comment on above: Performed By: #### E DKG #### [place] [address] NUTRITIONon 03-02-2018 NUTRITION HNO ID: [id number] Author: Perla Elias RD Service: Nutrition Therapy Author Type: Registered Dietitian Type: Nutrition Filed: 03/02/2018 3:47 PM Note Text: NUTRITION THERAPY PATIENT EDUCATION SERVICE DATE: 03/02/2018 SERVICE TIME: 3:43 PM TOPIC: Diabetic Education Diagnosis: ADULT: Diabetes READINESS TO LEARN Cognitive Ability: Developmentally Disabled Motivation to Learn: Interested Family Support: Unable to assess - Family not present Instruction Provided to: Patient Patient Learns Best by: Multiple Methods Factors Affecting Learning: Other Physical Limitations Affecting Learning: Sensory Deficit Hearing: Hard of Hearing LEARNING RESPONSE Patient / Family Response: Verbalizes understanding of Carbohydrate Controlled diet Method of Instruction: Individual instruction Instructional Aids Used: Supplemental Material Provided to Patient: Title of written material: Carbohydrate Counting for People with Diabetes Follow-Up Plan: Follow-up with Primary Care Referral (Recommendation): Primary Care Provider MNT Billing: Initial Assess/15 min 2 units SIGNATURE: Perla Elias RD PATIENT NAME: Cinthya Castillo DATE: March 02, 2018 TIME: 3:43 PM PAGER: [phone] Normal [facility] PLAN OF CAREon 03-02-2018 PLAN OF CARE HNO ID: [id number] Author: Gabo Jackson Service: Pharmacy Author Type: Pharmacist Type: Plan of Care Filed: 03/02/2018 1:37 PM Note Text: MEDICATION HISTORY AND MEDICATION RECONCILIATION Patient Name:Gregor Castillo : 1960 Source of history:Patient: Reliability of source: Patient does not know her meds but [facility] all [facility] Pharmacy records: [facility] records and [facility] Medication Nonadherence Identified: Patient has compliance packaging and was supposed to be on insulin but has not been taking for a while. The above information represents the best possible medication history: Yes Reconciliation completed? Yes Medications intentionally held at admission: Most medications held on admission and new insulin regimen started. 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 Yes amLODIPine (NORVASC) 2.5 mg tablet Take 2.5 mg by mouth once daily. Yes aspirin 81 mg chewable tablet Take 81 mg by mouth once daily. Yes diclofenac, EC, (VOLTAREN) 75 mg EC tablet Take 75 mg by mouth twice daily. Yes fenofibrate (LOFIBRA) 67 mg capsule Take 67 mg by mouth daily at bedtime. Yes gabapentin (NEURONTIN) 600 mg tablet Take 600 mg by mouth three times daily. Yes glipiZIDE (GLUCOTROL) 10 mg tablet Take 10 mg by mouth twice daily before meals. Yes hydroCHLOROthiazide (HYDRODIURIL, ESIDRIX) 50 mg tablet Take 50 mg by mouth once daily. Yes insulin glargine (LANTUS SOLOSTAR, BASAGLAR KWIKPEN) 100 unit/mL (3 mL) inpn Inject 110 Units subcutaneously daily at bedtime. Yes lisinopril (ZESTRIL, PRINIVIL) 40 mg tablet Take 40 mg by mouth once daily. Yes metFORMIN (GLUCOPHAGE) 1,000 mg tablet Take 1,000 mg by mouth twice daily with meals. Yes metoprolol tartrate, short acting, (LOPRESSOR) 100 mg tablet Take 100 mg by mouth twice daily. Yes montelukast (SINGULAIR) 10 mg tablet Take 10 mg by mouth daily at bedtime. Yes nystatin (MYCOSTATIN) cream Apply to affected area twice daily. Yes simvastatin (ZOCOR) 20 mg tablet Take 20 mg by mouth daily at bedtime. Yes Gabo Jackson, PharmD March 02, 2018 1:15 PM [facility] PROGRESSon 03-02-2018 Protein mass conc HNO ID: [id number] Author: Marielos Zhu Service: Hospital Medicine Author Type: Resident Type: Progress Notes Filed: 03/02/2018 2:08 PM Note Text: Attestation signed by Zeke Montague at 03/02/2018 4:33 PM Please see General Medicine House Service Attending Attestation to History and Physical dated 03/01/2018 for full details. SERVICE DATE: 03/02/2018 SERVICE TIME: 2:07 PM HOSPITAL MEDICINE PROGRESS NOTE HPI Patient is a 57 yo F with pmhx of HTN, DM, developmental delay is presenting after having a fall at which time she was noted to be in DKA and found to have a UTI. She was given 8U of insulin and 4L of IV fluids with resolution of DKA. Patient's BG is trending down from 700s to 297. A1c found to be 14.7. Poor control likely due to lack of resources and patient's developmental delay. Patient has a case coordinator who has helped with her medications in the past. SUBJECTIVE Patient states that she is doing well this morning. She denies any chest pain, shortness of breath, nausea, vomiting, or lightheadedness. Her BG continues to trend down. A1c found to be 14.7. Patient to continue on current insulin regimen. SW and CM consulted to better improve glycemic control upon discharge and diabetic education. OBJECTIVE BP 118/69 Pulse 115 Temp (Src) 98.1 (Oral) Resp 20 Ht 5' 6" (1.68m) Wt 259 lb (117.5kg) SpO2 96% BMI 41.82 kg/(m2). Physical Exam Performed: GENERAL: GENERAL APPEARANCE NCCC: well appearing, alert and in no acute distress HEART: HEART CCF: regular rate and rhythm, no murmer, gallop or rub, normal, S1, S2 LUNGS: LUNGS CCF: clear to percussion and auscultation and no rales ABDOMEN: ABDOMEN: Soft, nontender, bowel sounds normal, no palpable organomegaly, no bruits. EXTREMITY: EXTREMITY EXAM: Normal exam of the extremities. No clubbing, cyanosis, or edema. The remainder of the physical exam is noncontributory. Lines, Drains, and Airways Line Peripheral 03/01/18 1033 Admission to Hospital Short Right Hand 20 Gauge 1 day Reviewed lines, drains, AND airways. Need to be continued . Medications: Reviewed Current Facility-Administered Medications: amLODIPine 10 mg tab(s) (NORVASC) 10 mg ORAL DAILY Roberto Carlos (Res) Pannikottu 10 mg at 03/02/18 0910 cefTRIAXone iv piggyback 1 g in dextrose (iso-osmotic) 50 mL (ROCEPHIN) 1 g INTRAVENOUS q 24 H Roberto Carlos (Res) Pannikottu Last Rate: 100 mL/hr at 03/02/18 0910 1 g at 03/02/18 0910 dextrose 40 % 15 g 15 g ORAL PRN Roberto Carlos (Res) Pannikottu Or glucagon 1 mg injection (GLUCAGEN) 1 mg INTRAMUSCULAR PRN Roberto Carlos (Res) Pannikottu Or dextrose 50% in water 25 mL syringe 12.5 g INTRAVENOUS PRN Roberto Carlos (Res) Pannikottu enoxaparin 40 mg injection (LOVENOX) 40 mg SUBCUTANEOUS q 12 HR Ahmad H (Res) Ababneh gabapentin 600 mg cap(s) (NEURONTIN) 600 mg ORAL AT BEDTIME Roberto Carlos (Res) Pannikottu 600 mg at 03/01/182121 insulin glargine 30 Units pen (long acting) (LANTUS SOLOSTAR, BASAGLAR KWIKPEN) 30 Units SUBCUTANEOUS AT BEDTIME Roberto Carlos (Res) Pannikottu 30 Units at 03/01/182121 insulin lispro 10 Units pen (rapid acting) (HumaLOG KWIKPEN) 10 Units SUBCUTANEOUS w MEALS Roberto Carlos (Res) Pannikottu 10 Units at 03/02/18 1315 insulin lispro pen (rapid acting) (HumaLOG KWIKPEN) SUBCUTANEOUS w MEALS [facility] (Res) Pannikottu 5 Units at 03/02/18 1316 insulin lispro pen (rapid acting) (HumaLOG KWIKPEN) SUBCUTANEOUS AT BEDTIME [facility] (Res) Pannikottu 5 Units at 03/01/182122 lisinopril 20 mg tab(s) (ZESTRIL, PRINIVIL) 20 mg ORAL DAILY [facility] (Res) Pannikottu 20 mg at 03/02/18 0910 white petrolatum-mineral oil cream (EUCERIN) TOPICAL DAILY [facility] N (Hand Fabric Cutter) [place] Diagnostic tests reviewed: Most recent labs Most recent imaging Recent Labs 03/02/18 0323 03/01/18 1524 WBC 14.22* 15.08* RBC 3.61* 4.03 HB 11.0* 12.3 HCT 33.2* 36.3 PLT 261 268 MCV 92.0 90.1 MCH 30.5 30.5 MPV 10.8 10.3 RDW 12.6 12.3 Recent Labs 03/02/18 1215 03/02/18 0323 03/01/18 2000 03/01/18 1100 GLUC 447* 297* 359* < > 735* NA 132* 136 134* < > 127* K 4.0 3.7 3.8 < > 4.0 CHLOR 98 103 102 < > 91* CO2 22 22 20* < > 20* CREAT 1.16* 1.23* 1.10* < > 1.51* BUN 32* 36* 37* < > 55* ANION 16 15 16 < > 20* CA 8.8 8.1* 8.8 < > 9.3 TPROT -- 7.0 -- -- 8.2 ALB -- 2.7* -- -- 3.2* TBILI -- 0.6 -- -- 0.9 ALKPHOS -- 106 -- -- 122* AST -- 14 -- -- 19 ALT -- 23 -- -- 28 < > = values in this interval not displayed. Most recent labs ASSESSMENT AND PLAN Assessment AND Plan, Most Recent Note from ALL Problems our Service Addressed Cardiovascular HTN (hypertension) - C/w amlodipine and lisinopril. - Will slowly titrate up as BP tolerates Nephrology Microscopic hematuria - Seen on UA. This is likely 2/2 UTI. - Will need repeat testing as OP to make sure of resolution. UTI (urinary tract infection) - Ceftriaxone for UTI- continue for total 7 day course - Urine culture ordered and pending Endocrinology * Diabetes mellitus type 2 with ketoacidosis, uncontrolled (HCC) - Patient presented initially with DKA, that has resolved in the ED with 8 units of regular insulin subq and 4 L NaCl - Will start patient on 0.5 units/kg of insulin, which would be 60 units split into 30 units of Lantus qhs and 10 units of lispro with meals. - A1c 14.7 - Diabetes education consulted. - Will check BMP tonight. Poor control 2/2 lack of medication compliance - consult CM and SW for home going resources Diabetic ketoacidosis (HCC) Resolved- see above Rheumatology Degenerative joint disease -Monitor -will give tylenol for pain control PRN. Medication and Non-Pharmacologic VTE Prophylaxis/Anticoagul ants Anticoagulant AND Antiplatelet Medications Start Dose Route Frequency Ordered Stop 03/02/180 enoxaparin 40 mg injection (LOVENOX) (Medical At Risk ) 40 mg SUBCUTANEOUS EVERY 12 HOURS 03/02/18 1117 -- 03/01/18 1715 pneumatic compression stockings (vt,oh) VTE Prophylaxis: VTE prophylaxis appropriate Plan of care discussed with: Attending and Patient SIGNATURE: Marielos Zhu DO PATIENT NAME: Cinthya Castillo DATE: March 02, 2018 TIME: 2:07 PM PAGER/CONTACT #: [phone] Normal [facility] THERAPY NTon 03-02-2018 THERAPY NT HNO ID: [id number] Author: Mariana (Pt) MARIFER Mann Service: Physical Therapy Author Type: Physical Therapist Type: Therapy (PT/OT/Speech/Resp) Filed: 03/02/2018 11:55 AM Note Text: Physical Therapy Evaluation SERVICE DATE: 03/02/2018 SERVICE TIME: 1120 to 1143 ROOM: [place] [address] Recommended Discharge Disposition: Outpatient Physical Therapy Recommended Discharge Disposition Comments: Patient at/near baseline for functional mobility but could benefit from continued higher level balance and gait Anticipated Discharge Needs: Physical Assist at Home Physical Assist at Home for: Cleaning;Laundry;Meals ;Stairs;Safety Supervision at Home due to: Impaired cognition (baseline developmental delay) PT Recommendations to Nursing: Ambulate with device;To bathroom;In halls;Transfer to/from chair;OOB for Meals;Utilize bed in chair position;Sit at edge of bed;With assist of 1 person Device: Cane PT 6 Clicks Score: 20 Precautions/Activity Restrictions: Fall Risk ASSESSMENT : Patient presents with a medically stable condition with limited functional impairments which minimally impact safe mobility. The patient will require skilled therapy for PT problems that may include balance, gait safety with or without an assitive device and home safety education. the following personal factors and comorbidties that impact current function and ability to progress through a plan of care including: Developmental delay, DM, HTN. Upon examination of body systems physical therapy will be addressing the following systems and elements: musculoskeletal and neuromuscular. Lastly the patient's clinical presentation is stable requiring a low complexity in clinical decision making for the physical therapy evaluation. 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) Tolerated Full Session Physical Therapy Problem List: Education Deficit;Safety Deficits;Functional Mobility Impairment;Balance Impaired Patient /Caregiver Goals: Go Home Goals for Plan of Care: Rolling with: Independent Transfer supine to/from sit with: Independent Transfer sit to/from stand with: Independent Ambulate with: Modified Independent Distance: 45 Device: Cane Goal: Patient able to perform modified dynamic gait index with score > 10/12 Goal: Patient able to perform stretching/strengtheni ng and balance exercises Rehab Potential: Good PLAN: Treatment Frequency (times per week): 5 (1-5) Current admission Treatment Interventions: Education;Energy Conservation Training;Joint Mobility;Strengthening ;Functional Mobility Training;Balance Training;Neuromuscular Re-education Plan of Care developed with: Patient TREATMENT INTERVENTIONS: Therapy Diagnosis: Reduced mobility-other Interventions Provided: Evaluation;Gait Training (84346) $ Evaluation-Low (21383) Billed Units: 1 unit Gait Training (80436) Treatment Minutes: 8 1 unit Skilled Intervention(s): Instruction in sit to stand technique with proper hand placement and body positioning at edge of bed/chair, Instruction in stand to sit technique with LE's touching chair/bed and reaching back for surface, Instruction in sequencing, gait pattern, Instruction in correction of gait deviations and Instruction in use of equipment, cues for sequence and pattern Discussion on importance of slowing her pace in between transfers/mobility Education/instruction on energy conservation techniques during bed mobility and transfers Education with importance of postural mechanics throughout static/dynamic mobility. Education/discussion on fall prevention during dynamic mobility and ambulation. Importance of keeping head upright to observe environment and safely navigate room/hallway while sequencing cane Total Timed Code Treatment Minutes: 8 Total Treatment Time (minutes): 23 FUNCTIONAL G CODE: PT 6 Clicks Score: 20 (03/02/18 1120) Mobility: Walking and Moving Around Current Status (G8978): CJ (03/02/18 1120) Mobility: Walking and Moving Around Goal Status (G8979): CI (03/02/18 1120) Based on clinical assessment and the score on the 6 Clicks Functional Assessment Tool, the G code and corresponding severity modifiers are documented above. SUBJECTIVE: Current Hospital Course: Chart reviewed; . 57 year old female presented to hospital after reported fall at home. Per chart - "Patient was getting out of bed early this AM and fell forward on her belly while reaching for the doorknob" Imaging: xray IMPRESSION: Degenerative changes as described above. Otherwise negative pelvis and left hip. Active Hospital Problems Diagnosis - Diabetes mellitus type 2 with ketoacidosis, uncontrolled (HCC) - UTI (urinary tract infection) - HTN (hypertension) - Degenerative joint disease - Diabetic ketoacidosis (HCC) - Microscopic hematuria PAST MEDICAL HISTORY Diagnosis Date - Development delay - Diabetes (HCC) - Hypertension No past surgical history on file. 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 Patient states she fell because she was rushing when got up out of bed. Agreeable to PT Home Environment Patient Lives With: [facility] ([facility]) Assistance Available: 24 Hour Entry To Home: No Stairs Number Of Stairs To Bed/Bath: 3 Stairs to Bed/Bath with: Unilateral Rail Tub/Shower Type: tub shower Laundry: aids complete Equipment Owned: Cane Prior Functional Level: Within Functional Limits;Required Assistance Assistance Required With: Cleaning;Laundry;Meals ;Medication Management;Shopping;Tr ansportation Prior Functional Level Comments: indep with ADLs; uses cane out in the community OBJECTIVE: .Range of Motion: WFL Strength: WFL CURRENT FUNCTIONAL STATUS: Current Functional Mobility Assist Level Additional Information Rolling Supine to Sit Sit to Supine Scooting Sit to Stand Stand By Assistance Stand to Sit Stand By Assistance Bed to Chair Toilet/Commode Gait Contact Guard Assistance Gait Device: Cane Gait Distance (feet): 75x2 Stairs Curb Step Car Transfer General Gait Deviations: Arm swing decreased;Davidson decreased;Step length decreased;Wide base of support Balance: Dynamic Standing Dynamic Standing Balance: Contact Guard Assistance JH-HLM: 7: Walk 25 feet or more Functional Performance Test Functional Performance Test: Modified 4-Item Dynamic Gait Index Modified Dynamic Gait Index Gait on level surface: 2 Gait with speed changes: 1 Horizontal head turns: 2 Vertical head turns: 2 Total Score: 7 Patient set up in chair with call light and phone in reach on bedside table. Advised to use call light and wait for assist to get back to bed Please see discipline specific clinical documentation flowsheet for complete details for this therapy evaluation/treatment. SIGNATURE: Mariana Mann PT PATIENT NAME: Cinthya Castillo DATE: March 02, 2018 TIME: 11:51 AM Normal [facility] THERAPY NT HNO ID: [id number] Author: Bruna Rowan/Olman Pantoja OT Service: Occupational Therapy Author Type: Occupational Therapist Type: Therapy (PT/OT/Speech/Resp) Filed: 03/02/2018 11:43 AM Note Text: Occupational Therapy Evaluation SERVICE DATE: 03/02/2018 SERVICE TIME: 1111 to 1126 ROOM: [place] [address] Recommended Discharge Disposition: Home Recommended Discharge Disposition Comments: Return to [facility] with continued assist for IADLs Anticipated Discharge Needs: Physical Assist at Home;Supervision at Home Physical Assist at Home for: Cleaning;Laundry;Meals ;Shopping;Transportati on Supervision at Home due to: Impaired cognition (baseline developmental delay) OT Recommendations to Nursing: To Bathroom for ADL?s /and or Toileting;OOB for meals;With assist of 1 person OT 6 Clicks Score: 23 Precautions/Activity Restrictions: Fall Risk ASSESSMENT: OT Evaluation Low Complexity: Occupational Profile - Brief review of patient's medical record completed (please see current hospital course of evaluation). Occupational Performance - Pt presents with deficits in UE bathing/dressing, LE bathing/dressing, functional transfers, functional mobility, decreased safety awareness Complexity in Clinical Decision Making - The extent of clinical reasoning was low, number of treatment options limited, no need for modifications during the evaluation process; Developmental delay Patient Disposition at Start of Session: Other: See Comment (OOB up in bathroom with nurse tech) Patient Disposition at End of Session: OOB in Chair;Call Grayson in Reach Tolerated Full Session Occupational Therapy Problem List: Impaired Self Care;Decreased Activity Tolerance;Functional Mobility Impairment Patient /Caregiver Goals: Go Home Goals for Plan of Care: Grooming with: Independent Upper Body Bathing with: Independent Lower Body Bathing with: Independent Lower Body Dressing with: Independent Tolerate (minutes of functional activity): 25 Functional Activity with: Independent Transfer: all functional transfers: independent PLAN: Treatment Frequency (times per week): 5 (1-4) Current admission Treatment Interventions: Education;Self Care / Home Management;Functional Mobility Training Plan of Care developed with: Patient TREATMENT INTERVENTIONS: Therapy Diagnosis: Reduced mobility-other;Decreas ed activities of daily living (ADL) Interventions Provided: Evaluation $ Evaluation-Low (73144) Billed Units: 1 unit Total Treatment Time (minutes): 15 FUNCTIONAL G CODE: OT 6 Clicks Score: 23 (03/02/18 1111) Self Care Current Status (G8987): CI (03/02/18 1111) Self Care Goal Status (G8988): CH (03/02/18 1111) Based on clinical assessment and the score on the 6 Clicks Functional Assessment Tool, the G code and corresponding severity modifiers are documented above. SUBJECTIVE: Current Hospital Course: Chart reviewed; presenting after having a fall at which time she was noted to be in DKA. 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 No c/o pain. Home Environment Patient Lives With: [facility] - lives with 3 males and aids that assist with IADLs) Assistance Available: 24 HOUR Entry To Home: No Stairs Number Of Stairs To Bed/Bath: 3 Stairs to Bed/Bath with: Unilateral Rail Tub/Shower Type: tub shower Laundry: aids complete Equipment Owned: Cane Prior Functional Level: Within Functional Limits;Required Assistance Assistance Required With: Cleaning;Laundry;Meals ;Medication Management;Shopping;Tr ansportation Prior Functional Level Comments: indep with ADLs; uses cane out in the community OBJECTIVE: Cognition/Communicatio n Deficits Responsiveness: Alert Follows Commands: 2-step Commands Psychosocial Deficit: Pt with developmental delay at baseline CURRENT FUNCTIONAL STATUS: Current Activities of Daily Living Assist Level Feeding Set Up Grooming Stand By Assistance Bathing Upper Body Contact Guard Assistance Bathing Lower Body Contact Guard Assistance Dressing Upper Body Independent Dressing Lower Body Stand By Assistance Toileting Stand By Assistance Instrumental Activities of Daily Living Assist Level Meal/Beverage Prep Total Assistance Light Cleaning Total Assistance Laundry Total Assistance Medication Management with Strategies Total Assistance Functional Mobility Assist Level Rolling Supine to Sit Stand By Assistance Sit to Supine Stand By Assistance Scooting Sit to Stand Stand By Assistance Stand to Sit Stand By Assistance Bed to Chair Toilet/Commode Stand By Assistance Functional Mobility Stand By Assistance Hand Dominance: Left Range of Motion: WFL Strength: WFL Activity Tolerance: Standing Activity Standing Activity: Functional mobility to/from bathroom Standing Activity Tolerance (in minutes): 5 Please see discipline specific clinical documentation flowsheet for complete details for this therapy evaluation/treatment. SIGNATURE: MAEVE Loomis/Jaky PATIENT NAME: Cinthya Castillo DATE: March 02, 2018 TIME: 11:40 AM Normal [facility] Basic Panelon 03-01-2018 Glucose mass conc 524 mg/dL Critically high 70-99 [facility] Comment on above: Performed By: #### E DKG #### [facility] [address] [place] [address] Creatinine mass conc 1.25 mg/dL High 0.51-0.95 [facility] Comment on above: Performed By: #### E DKG #### [facility] [address] [place] [address] Anion gap molar conc 16 mmol/L Normal 8-16 [facility] Comment on above: Performed By: #### E DKG #### [facility] [address] [place] [address] CO2 molar conc 23 mmol/L Normal 21-32 [facility] Comment on above: Performed By: #### E DKG #### [facility] [address] [place] [address] Urea nitrogen mass conc 47 mg/dL High 7-18 [facility] Comment on above: Performed By: #### E DKG #### [facility] [address] [place] [address] Calcium mass conc 8.7 mg/dL Normal 8.5-10.1 [facility] Comment on above: Performed By: #### E DKG #### [facility] [address] [place] [address] Chloride molar conc 99 mmol/L Normal 98-107 [facility] Comment on above: Performed By: #### E DKG #### [facility] [address] [place] [address] Potassium molar conc 4.0 mmol/L Normal 3.5-5.1 [facility] Comment on above: Performed By: #### E DKG #### [facility] [address] [place] [address] Sodium molar conc 134 mmol/L Low 136-145 [facility] Comment on above: Performed By: #### E DKG #### [facility] [address] [place] [address] CHEST 2 VIEWSon 03-01-2018 CHEST 2 VIEWS Performed at [facility] APPROVED BY: Alex Cam MD EXAMINATION: CHEST RADIOGRAPH (2 VIEW FRONTAL & LATERAL) CLINICAL HISTORY: ,. The patient status post fall. The patient has weakness. MQ: XC2_5 Comparison: None RESULT: Lines, tubes, and devices: None Lungs and pleura: Images are degraded by scatter secondary to the patient's body habitus. The costophrenic angles are clear bilaterally. No definite focal infiltrates are identified. There is no evidence of pneumothorax or pleural effusion. Cardiomediastinal silhouette: The cardiac silhouette is within normal limits. The thoracic aorta and mediastinum are unremarkable. The pulmonary vascularity is within normal limits. Other: There are some degenerative changes at the right acromioclavicular joint. There some mild degenerative changes of the thoracic spine. IMPRESSION: There is no acute disease. Normal [facility] Comprehensive Panelon 2017 ALT enzyme act/vol 28 U/L Normal 12-78 [facility] Comment on above: Performed By: #### P 14 #### [facility] [address] [place], [place] [address] ALP enzyme act/vol 122 U/L High 46-116 [facility] Comment on above: Performed By: #### P 14 #### [facility] [address] [place], [place] [address] Bilirubin mass conc 0.9 mg/dL Normal 0.2-1.0 [facility] Comment on above: Performed By: #### P 14 #### [facility] [address] [place], [place] [address] Glucose mass conc 735 mg/dL Critically high 70-99 [facility] Comment on above: Performed By: #### P 14 #### [facility] [address] [place], [place] [address] Protein mass conc 8.2 g/dL Normal 6.4-8.2 [facility] Comment on above: Performed By: #### P 14 #### [facility] [address] [place], [place] [address] AST enzyme act/vol 19 U/L Normal 9-37 [facility] Comment on above: Performed By: #### P 14 #### [facility] [address] [place], [place] [address] Creatinine mass conc 1.51 mg/dL High 0.51-0.95 [facility] Comment on above: Performed By: #### P 14 #### [facility] [address] [place], [place] [address] Albumin mass conc 3.2 g/dL Low 3.4-5.0 [facility] Comment on above: Performed By: #### P 14 #### [facility] [address] [place] [address] Anion gap molar conc 20 mmol/L High 8-16 [facility] Comment on above: Performed By: #### P 14 #### [facility] [address] [place] [address] Calcium mass conc 9.3 mg/dL Normal 8.5-10.1 [facility] Comment on above: Performed By: #### P 14 #### [facility] [address] [place] [address] CO2 molar conc 20 mmol/L Low 21-32 [facility] Comment on above: Performed By: #### P 14 #### [facility] [address] [place] [address] Urea nitrogen mass conc 55 mg/dL High 7-18 [facility] Comment on above: Performed By: #### P 14 #### [facility] [address] [place] [address] Chloride molar conc 91 mmol/L Low 98-107 [facility] Comment on above: Performed By: #### P 14 #### [facility] [address] [place] [address] Potassium molar conc 4.0 mmol/L Normal 3.5-5.1 [facility] Comment on above: Performed By: #### P 14 #### [facility] [address] [place] [address] Sodium molar conc 127 mmol/L Low 136-145 [facility] Comment on above: Performed By: #### P 14 #### [facility] [address] [place] [address] Cult Bloodon 03-01-2018 Cult Blood Test performed at [facility] No growth The blood cultures are under-filled. Adding volumes lower or higher than 8-10 ml per aerobic bottle or 5-7 ml per anaerobic bottle, which is the manufacturers recommended volume, may adversely affect the recovery and/or detection of organisms. Normal [facility] Comment on above: Performed By: #### E DKG #### [facility] [address] [place] [address] Cult Blood Test performed at [facility] No growth Normal [facility] Comment on above: Performed By: #### E DGLG #### [facility] [address] [place] [address] Cult Urineon 03-01-2018 Cult Urine Test performed at [facility] Mixed skin dani. No further identification or susceptibility testing will be performed. Please submit a new specimen. Plates will be held for 5 days. Normal [facility] Comment on above: Performed By: #### E DGLG #### [facility] [address] [place] [address] ED NOTEon 03-01-2018 ED NOTE HNO ID: [id number] Author: Antoine Clifford) SUNDEEP Moise Service: Emergency Medicine Author Type: Registered Nurse Type: ED Notes Filed: 03/01/2018 11:47 AM Note Text: Urine culture obtained AND sent Normal [facility] ED NOTE HNO ID: [id number] Author: Antoine Moise RN Service: Emergency Medicine Author Type: Registered Nurse Type: ED Notes Filed: 03/01/2018 11:27 AM Note Text: Clean catch urine specimen obtained AND sent to lab. Culture held in lab Normal [facility] ED NOTE HNO ID: [id number] Author: Antoine Clifford) SUNDEEP Moise Service: Emergency Medicine Author Type: Registered Nurse Type: ED Notes Filed: 03/01/2018 11:32 AM Note Text: Radiology notified pt is ready for x-ray [facility] ED NOTE HNO ID: [id number] Author: Paris King (Tech) Service: Emergency Medicine Author Type: Underground Distribution Engineer Type: ED Notes Filed: 03/01/2018 10:41 AM Note Text: Blood sugar check performed per request of Sherry with the result of critically high. Sherry notified at this time. Normal [facility] ED NOTE HNO ID: [id number] Author: Cassandra Dailey RN Service: Emergency Medicine Author Type: Registered Nurse Type: ED Notes Filed: 03/01/2018 10:34 AM Note Text: Pt placed on monitor at this time. Side rails up. Call light within reach. Fall risk band on Normal [facility] ED NOTE HNO ID: [id number] Author: Cassandra (Rn) SUNDEEP Dailey Service: Emergency Medicine Author Type: Registered Nurse Type: ED Notes Filed: 03/01/2018 10:27 AM Note Text: Per ems, pt lives in [place]. Fell last night after dinner. Denies hitting head. States woke up this am with weak legs. Ems called. Ems check fsbs, 550>. Pt A/Ox4 upon arrival. Normal [facility] ED NOTE HNO ID: [id number] Author: Jeramy (Medic) Chuyita Valdivia Service: (none) Author Type: Soil Scientist and Underground Distribution Engineer Type: ED Notes Filed: 03/01/2018 10:20 AM Note Text: Bed: 10-ED Expected date: 03/01/18 Expected time: 10:11 AM Means of arrival: [place] DONA Comments: afd av-1 hi bs weakness Normal [facility] ED PROV NOTEon 03-01-2018 Protein mass conc HNO ID: [id number] Author: Radha Romero MD Service: Emergency Medicine Author Type: Physician Type: ED Provider Notes Filed: 03/01/2018 5:25 PM Note Text: 57-year-old female presenting status post fall. Per report the patient had generalized weakness and fell last night. Patient states she felt weak in her legs after getting out of bed. The patient fell denies striking her head. She denies loss of consciousness. She said this had some left hip pain. She is noted to have an elevated blood sugar and sent in by EMS for evaluation. The patient denies headache, double or blurred vision, chest pain, palpitations, shortness of breath, abdominal pain. She denies any vertigo. She states she often feels dizzy when going from a sitting to standing position. Constitutional: . Nontoxic, well-appearing without any respiratory distress. HEENT: Mucous membranes moist. Neck: Supple. Normal range of motion. No C-spine tenderness or step-offs. Cardiovascular: Heart is regular rate and rhythm without murmurs, rubs or gallops. 2+ radial 2+ to be pulses. Pulmonary: Lungs clear to auscultation bilaterally without wheezes, rhonchi as well as rales. Gastrointestinal: Abdomen soft, nontender, nondistended with normal active bowel sounds. No rebound, guarding or peritoneal signs. Genitourinary: No CVA tenderness. Muscle skeletal: Moves all extremities equally and normally. No TL spine tenderness or step-offs. Pelvis is stable and nontender. She has mild tenderness at the lateral left hip without deformity. She maintains full range of motion of all 4 extremities. No other tenderness to the other major joints. Neuro: Alert and oriented ?3. Cranial nerves II through XII are intact. Strength is 5 out of 5 in all 4 extremities with normal sensation in all 4 extremities. Finger to nose intact bilateral upper extremities. EKG shows sinus tachycardia no ST abnormalities consistent with acute NM. The patient had an IV established blood work obtained. She is otherwise neurovascular intact. Chest x-ray and pelvis x-ray shows no acute disease. No fracture of the left hip. Patient found to be hyperglycemic. Anion gap of 16. Bicarbonate of 20. PH is normal. She is hyponatremic. Urinalysis was concerning for infection. We will start her on IV fluids, give subcutaneous insulin and an IV antibiotics-ceftriaxon e. We'll recheck a BMP patient will need admission for further management. Repeat BMP shows improvement. She is still hyperglycemic with a glucose of 524. Bicarbonate normal at 23. Anion gap of 12. Patient is stable for telemetry. She remained stable throughout her ED course. Radha Romero MD 03/01/18 1725 Normal [facility] Protein mass conc HNO ID: [id number] Author: Joss Andrew MD Service: Emergency Medicine Author Type: Resident Type: ED Provider Notes Filed: 03/01/2018 4:03 PM Note Text: Attestation signed by Radha Romero MD at 03/01/2018 5:40 PM Attending Note I evaluated the patient and personally participated in the craig components. I agree with the resident's findings and plan as documented and have discussed the case and management of the patient's care with the resident. Patient nearing DKA, treated and resolved while in the Emergency Department. Signature: Radha Romero MD Date: 03/01/2018 Time: 5:39 PM ED Provider Note Patient Name: Cinthya Castillo SERVICE DATE: 03/01/18 History Patient presents with: Fall Weakness High Blood Sugar Miss Castillo is a 57 yof with past medical history of developmental delay, hypertension, diabetes not on any insulin, anxiety - CC hyperglycemia and fall. Patient reports that yesterday around 9 PM she had taken her nighttime medications, she is unsure which one, after dinner and was attempting to fall asleep. She decided to get up from her bed, says she was reaching for her door handle when her "knees gave out". She states that she fell forward on her abdomen, did not strike her head, did not have loss of consciousness, not on blood thinners, denies neck pain. She was able to pick herself up from the floor. She noticed some scraping on her right elbow and some left pain although she couldn't ambulate. Denied any numbness weakness or tingling in her extremities except for baseline neuropathy from her diabetes. Denies any chest pain or shortness of breath. Reports some cough and congestion recently but no fevers or chills. Also reports a "pimple" on her right hip which she would like examined. She reports dysuria without hematuria or polyuria. EMS checked a blood sugar was critically high greater than 550 which is the maximum per meter. She is unsure what her baseline blood thinners. Denies other complaints. 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 No family history on file. Social History Social History Main Topics - Smoking status: Never Smoker - Smokeless tobacco: Never Used - Alcohol use No - Drug use: No - Sexual activity: No ALLERGIES Allergen Reactions - Penicillin Unknown Pt unaware of reaction Review of Systems Constitutional: Negative for chills and fever. HENT: Positive for congestion. Negative for sore throat. Eyes: Negative for visual disturbance. Respiratory: Positive for cough. Negative for apnea, chest tightness, shortness of breath and wheezing. Cardiovascular: Negative for chest pain and leg swelling. Gastrointestinal: Negative for abdominal pain, blood in stool, constipation, diarrhea, nausea and vomiting. Endocrine: Negative for polyuria. Genitourinary: Negative for dysuria and hematuria. Musculoskeletal: Negative for back pain, gait problem and neck pain. Left hip pain, right elbow abrasion Skin: Negative for rash and wound. Neurological: Positive for weakness. Negative for dizziness and headaches. All other systems reviewed and are negative. Physical Exam BP 134/90 Pulse 110 Temp (Src) 98.2 (Oral) Resp 20 Ht 5' 6" (1.68m) Wt 258 lb (117.0kg) SpO2 98% BMI 41.66 kg/(m2). Physical Exam Constitutional: She is oriented to person, place, and time. She appears well-developed and well-nourished. No distress. HENT: Head: Normocephalic and atraumatic. Right Ear: External ear normal. Left Ear: External ear normal. Nose: Nose normal. Mouth/Throat: No oropharyngeal exudate. Eyes: Pupils are equal, round, and reactive to light. Conjunctivae and EOM are normal. Right eye exhibits no discharge. Left eye exhibits no discharge. No scleral icterus. Neck: Normal range of motion. Neck supple. No tracheal deviation present. Cardiovascular: Normal rate, regular rhythm, normal heart sounds and intact distal pulses. Exam reveals no gallop and no friction rub. No murmur heard. Pulmonary/Chest: Effort normal and breath sounds normal. No stridor. No respiratory distress. She has no wheezes. She has no rales. She exhibits no tenderness. Abdominal: Soft. She exhibits no distension and no mass. There is no tenderness. There is no rebound and no guarding. Obese protuberant abd, mild ttp right mid abd. Musculoskeletal: Normal range of motion. She exhibits tenderness. She exhibits no edema or deformity. Abrasion right elbow, otherwise normal ROM, strength, sensation; mild TTP left him, normal ROM in LE b/l, no pain with log roll. No midline ttp back, no step-offs, no deformities Neurological: She is alert and oriented to person, place, and time. A sensory deficit ( mildly decreased distal LE b/l, reports baseline neuropathy) is present. No cranial nerve deficit. She exhibits normal muscle tone. Coordination normal. Skin: Skin is warm and dry. No rash noted. She is not diaphoretic. No erythema. Nursing note and vitals reviewed. Diagnostic Testing ED Labs Ordered and Reviewed - No data to display Procedures ED Course / Clinical Impression On exam the patient is tachycardic in the 110's, she has no tachypnea, afebrile, normotensive. Patient is no acute distress, she is sitting upright, polite, cooperative, conversant. Pertinent findings on exam include poor respiratory effort although lungs were clear. Abdomen is morbidly obese and protuberant with some mild tenderness palpation in the left mid abdomen. No peritoneal signs. She has normal range of motion and strength in her lower extremities bilaterally. She does have decreased sensation in the distal lower Shoney's bilaterally which she says is her baseline neuropathy. She has 2+ DP and PT pulses. She had no pain bilaterally in the hips with log roll. She did have some focal tenderness palpation of the left hip without obvious bony injury. She had no midline tenderness to palpation of the back, no step-offs or deformities. I inspected her right hip and she has what appears to be a a healing abscess versus folliculitis. There is no fluctuance, crepitus, induration. Given the patient's high blood sugar and what she is reporting as weakness, check basic labs including a VBG, chest x-ray, EKG. EKG showed sinus tachycardia. Tetanus - updated POC glucose - > 400 Started NS 2 L IV for hyperglycemia. Cbc - see below cmp - Na 127 (not corrected for hyperglycemia), chloride 91, CO2 20, glucose 735, BUN 55, Creat 1.51, Gap 16 Lipase- WNL vbg - 7.364/38.1/42.3/21.2 ua - trace ketones, mod LE, RBCs, few bacteria, culture sent, gave Rocephin 1 gm IV cxr - no acute process Given insulin 8 U subq as she is naive. XR left hip - FINDINGS: ? No fractures or subluxations noted. No bony erosions noted. There are some degenerative changes at the pubic symphysis with joint space narrowing and eburnation. ?There are some minimal degenerative changes of both hip ?joints. There are some degenerative changes of the lower lumbar spine. IMPRESSION: ? 1. ?Degenerative changes as described above. ? 2. ?Otherwise negative pelvis and left hip. Repeat BMP after 2L NS, no gap (12), glucose 524. BUN 47, Creat 1.25 3rd L NS ordered. CBC cancelled by lab. We were not notified. Report filed. Repeated lab. WBC 15. Added Lactic and blood cultures. Discussed the patient House Medicine who agreed to admit in stable condition under Dr. Willis. Clinical Impressions as of Mar 01 1603 Sepsis, due to unspecified organism (HCC) Type 2 diabetes mellitus with ketoacidosis without coma, without long-term current use of insulin (HCC) RONNI (acute kidney injury) (HCC) MDM / Disposition / Plan MDM The patient was ADMITTED TO: tele.. Condition at time of disposition: stable SIGNATURE: MD Joss Boudreaux (Res) MD [place] Resident 03/01/18 1603 Radha Romero MD 03/01/18 1740 Normal [facility] Glucoseon 03-01-2018 Glucose mass conc 679 mg/dL High 70-99 [facility] Comment on above: Performed By: #### E DGLG #### [facility] [address] [place] [address] HIP 3V PELV/AP/LAT LEFTon HIP 3V PELV/AP/LAT LEFT Performed at [facility] APPROVED BY: Alex Cam MD EXAM TITLE: AP VIEW OF THE PELVIS AND 2 VIEWS OF THE LEFT HIP DATE: 03/01/2018 11:27 COMPARISON: None. CLINICAL INDICATION/HISTORY: Trauma. The patient fell last night. The patient complains of pain in the left hip. TECHNIQUE: An AP view of the pelvis as well as AP and crossfire lateral views of the left hip are presented. FINDINGS: No fractures or subluxations noted. No bony erosions noted. There are some degenerative changes at the pubic symphysis with joint space narrowing and eburnation. There are some minimal degenerative changes of both hip joints. There are some degenerative changes of the lower lumbar spine. IMPRESSION: 1. Degenerative changes as described above. 2. Otherwise negative pelvis and left hip. Normal [facility] HISTORY PHYSICALon HISTORY PHYSICAL HNO ID: [id number] Author: Davy Ontiveros (Dandy) Nitza Service: Hospital Medicine Author Type: Resident Type: HANDP Filed: 03/01/2018 5:45 PM Note Text: Attestation signed by Zeke Montague at 03/02/2018 4:30 PM House Medicine Service Attending Attestation I evaluated the patient and personally participated in the craig components. 57 yo female with hx of HTN, DM, developmental delay, and OA/DJD who presented to the ED s/p fall and was admitted with DKA; also with UTI. HX: Blood sugars remain elevated. Patient is unsure about medication regimen but states it is delivered by doc-u-dose. She reveals that she has a lead case manager. PE: BP 118/69 Pulse 115 Temp 36.7 ?C (98.1 ?F) (Oral) Resp 20 Ht 167.6 cm (5' 6") Wt 117.5 kg (259 lb) SpO2 96% BMI 41.80 kg/m? . WD, obese, NAD. RRR with nl s1 and s2 and no murmurs. LCTAB without crackles, wheezes, or rhonchi. Abdomen soft, NT, ND without masses or HSM. No peripheral edema. BMP with creatinine 1.23->1.16. BP >400, 395, 300. A1C 14.7. MDM: Continue basal-bolus insulin regimen at increased doses. Restart metformin. Diabetic education. Continue ceftriaxone for presumed UTI. SW consult to assist with contacting lead case manager; given elevated blood sugar/A1C and patient lack of glucometer, fear that medication adherence is an issue. Zeke Montague MD 03/02/2018 4:25 PM SERVICE DATE: 03/01/2018 SERVICE TIME: 5:44 PM HOUSE MEDICINE SERVICE HISTORY AND PHYSICAL PCP: Kristel Nunes MD Admitting Attending: Dr. Montague SUBJECTIVE Chief Complaint: Fall HPI: Patient is a 57 yo F with pmhx of HTN, DM, developmental delay is presenting after having a fall at which time she was noted to be in DKA. Patient was getting out of bed early this AM and fell forward on her belly while reaching for the doorknob. Denies head trauma/LOC. Patient reports she was diagnosed with DM this year. Reports she was taking insulin up to 1 month ago, but reports it was stopped, unclear on why. She reports she has been having symptoms of polyuria, polydipsia, and polyphagia. She is currently on metformin and alogliptin. On further questioning she also endorses dysuria and frequency for the past couple of days but denies fevers, chills, nausea or vomiting. UA done is suggestive of UTI. Patient was given 8u of insulin in the ED with 3 L of IVF and her anion gap closed. Review of Systems: General: patient denies fevers, chills, rashes HEENT: denies congestion, runny nose Respiratory: denies SOB, cough, hemoptysis, wheezing CVS: denies CP, palpitations, orthopnea, PNDs GI: denies nausea, vomiting, abdominal pain, diarrhea, constipation, blood in the stool : dysuria denies hematuria, frequency Neuro: denies headaches, changes in vision, changes in hearing, LOC, dizziness Endocrine: denies polyuria, polydipsia, changes in weight PAST MEDICAL HISTORY Diagnosis Date - Development delay - Diabetes (HCC) - Hypertension No past surgical history on file. No family history on file. Social History Substance Use Topics - Smoking status: Never Smoker - Smokeless tobacco: Never Used - Alcohol use No Medications: No prescriptions prior to admission. Allergies: ALLERGIES Allergen Reactions - Penicillin Unknown Pt unaware of reaction OBJECTIVE: Vital Signs: BP 144/70 Pulse 115 Temp (Src) 98.2 (Oral) Resp 15 Ht 5' 6" (1.68m) Wt 258 lb (117.0kg) SpO2 96% BMI 41.66 kg/(m2). Physical Exam Performed: General: patient is alert and oriented x 3, no acute distress HEENT: EOMI, PERRLA, dry mucous membranes CVS: normal s1, s2 with no added sounds or murmurs, regular rate and rhythm Chest: clear to auscultation bilaterally, no wheezing or rhonchi GI: soft, obese, slight bruising noted on left side of abdomen with slight tenderness to deep palpation, positive bowel sounds Ext: no LLE, capillary refill < 2 seconds Neuro: Nonfocal examination Pulses present bilaterally Lines, Drains, and Airways Line Peripheral 03/01/18 1033 Admission to Hospital Short Right Hand 20 Gauge less than 1 day Data: Component Latest Ref Rng AND Units 03/01/2018 03/01/2018 03/01/2018 03/01/2018 03/01/2018 03/01/2018 03/01/2018 03/01/2018 03/01/2018 10:35 AM 11:00 AM 11:08 AM 11:12 AM 11:15 AM 11:20 AM 2:30 PM 3:24 PM 4:16 PM WBC 3.98 - 10.04 thou/cmm 15.08 (H) RBC 3.93 - 5.22 mil/cmm 4.03 HGB 11.2 - 15.7 g/dL 12.3 Hematocrit 34.1 - 44.9 % 36.3 MCV 79.4 - 94.8 fl 90.1 MCH 25.6 - 32.2 pg 30.5 MCHC 31.6 - 34.8 % 33.9 RDW 11.7 - 14.4 % 12.3 RDW-SD 36.4 - 46.3 fl 40.4 Platelet Count 182 - 369 thou/cmm 268 MPV 9.4 - 12.3 fl 10.3 Seg Neutrophil % 79.6 Immature Grans % 1.50 Lymphocyte % 10.9 Monocyte % 7.1 Eosinophil % 0.6 Basophil % 0.3 Abs. Neut(Anc) 1.56 - 6.13 thou/cmm 12.00 (H) Immature Grans # 0.00 - 0.05 thou/cmm 0.23 (H) Abs. Lymph 1.18 - 3.74 thou/cmm 1.64 Abs. Duchesne 0.27 - 0.70 thou/cmm 1.07 (H) Abs. Eosin 0.00 - 0.31 thou/cmm 0.09 Abs. Baso 0.01 - 0.08 thou/cmm 0.05 Color YELLOW Urine Appearance CLOUDY Glucose, Urine Negative mg/dL >=1000 (A) Ketones, Urine Negative mg/dL TRACE (A) Hemoglobin, Urine Negative SMALL (A) Protein, Urine Negative mg/dL NEGATIVE Nitrites Urine Negative NEGATIVE Bilirubin, Urine Negative NEGATIVE Specific [place], Ur 1.005 - 1.030 1.034 pH, Urine 5.0 - 8.0 5.0 Urobilinogen, Urine 0.0 - 1.0 EU/dL 0.2 Leukocytes Esterase Negative MODERATE (A) RBC, Urine 0.0 - 5.0 /hpf 46.8 (H) WBC, Urine 0.0 - 5.0 /hpf 158.5 (H) EP Cells Urine 0.0 - 5.0 /hpf 8.4 (H) Bacteria, Urine None FEW Hyaline Cast 0.0 - 1.0 /lpf 1.9 (H) Sodium 136 - 145 mEq/L 127 (L) 134 (L) Potassium 3.5 - 5.1 mEq/L 4.0 4.0 Chloride 98 - 107 mEq/L 91 (L) 99 CO2 21 - 32 mEq/L 20 (L) 23 Glucose 70 - 99 mg/dL 735 (HH) 524 (HH) BUN 7 - 18 mg/dL 55 (H) 47 (H) Creatinine 0.51 - 0.95 mg/dL 1.51 (H) 1.25 (H) Calcium 8.5 - 10.1 mg/dL 9.3 8.7 Albumin 3.4 - 5.0 g/dL 3.2 (L) Protein, Total 6.4 - 8.2 g/dL 8.2 AST 9 - 37 U/L 19 ALT 12 - 78 U/L 28 Alkaline Phosphatase 46 - 116 U/L 122 (H) Bilirubin, Total 0.2 - 1.0 mg/dL 0.9 Anion Gap 8 - 16 20 (H) 16 pH (POCT) 7.320 - 7.430 7.364 pCO2 (POCT) 40.6 - 60.0 mm Hg 38.1 (L) pO2 (POCT) 15.9 - 37.5 mm Hg 42.3 (H) HCO3 (POCT) 21.0 - 30.0 mmol/L 21.2 Base Excess (POCT) -2.5 to 2.5 mEq/L -3.2 (L) Lipase 73 - 393 U/L 290 Potassium (POCT) 3.4 - 4.5 mmol/L 4.1 Glucose (POCT) 70 - 99 mg/dL 679 (H) eGFR >60mL/min/1.73m2 35.62 44.30 GLUCOSE METER 70 - 99 mg/dL >400 (H) Lactate (POCT) 0.5 - 2.2 mEq/L 1.6 CARE COORDINATION: No Patient Care Coordination Note on file. Assessment AND Plan, all Hosp Problems Active Hospital Problems as of 03/01/2018 Noted - Resolved A * (Principal)Diabetes mellitus type 2 with ketoacidosis, uncontrolled (HCC) 03/01/2018 - Present Current Assessment AND Plan - Patient presented initially with DKA, that has resolved in the ED with 8 units of regular insulin subq and 3 L NaCl - Will start patient on 0.5 units/kg of insulin, which would be 60 units split into 30 units of Lantus qhs and 10 units of lispro with meals. - A1c pending - Diabetes education consulted. - Will check BMP tonight. B UTI (urinary tract infection) 03/01/2018 - Present Current Assessment AND Plan - Will start on ceftriaxone for UTI - Urine culture ordered and pending C HTN (hypertension) 03/01/2018 - Present Current Assessment AND Plan - Will restart amlodipine and lisinopril. - Will slowly titrate up as BP tolerates. D Microscopic hematuria 03/01/2018 - Present Current Assessment AND Plan - Seen on UA. This is likely 2/2 UTI. - Will need repeat testing as OP to make sure of resolution. E Degenerative joint disease 03/01/2018 - Present Current Assessment AND Plan -Monitor -will give tylenol for pain control PRN. Unprioritized Diabetic ketoacidosis (HCC) 03/01/2018 - Present Medication and Non-Pharmacologic VTE Prophylaxis/Anticoagul ants Anticoagulant AND Antiplatelet Medications Start Dose Route Frequency Ordered Stop 03/01/18 1800 enoxaparin 40 mg injection (LOVENOX) (Medical At Risk ) 40 mg SUBCUTANEOUS DAILY 03/01/18 1711 -- 03/01/18 1715 pneumatic compression stockings ([place]) VTE Prophylaxis: VTE prophylaxis appropriate SIGNATURE: Davy Goddard MD PATIENT NAME: Cinthya Castillo DATE: March 01, 2018 TIME: 5:44 PM PAGER/CONTACT #: [phone] Normal [facility] Hemogram/Diffon 03-01-2018 Abs Immature Grans 0.23 thou/cmm High 0.00-0.05 [facility] Comment on above: Performed By: #### E DKG #### [place] [address] Abs. Baso 0.05 thou/cmm Normal 0.01-0.08 [facility] Comment on above: Result Comment: Smea r scanned; tech agrees with automated differential Performed By: #### E DKG #### [place] [address] Abs. [place] 1.07 thou/cmm High 0.27-0.70 [facility] Comment on above: Performed By: #### E DKG #### [place] [address] Abs. Neut (ANC) 12.00 thou/cmm High 1.56-6.13 [facility] Comment on above: Performed By: #### E DKG #### [place] [address] Basophils/100 WBC (Bld) 0.3 % Normal A [facility] Comment on above: Performed By: #### E DKG #### [place] [address] Eosinophils #/vol (Bld) 0.09 thou/cmm Normal 0.00-0.31 [facility] Comment on above: Performed By: #### E DKG #### [place] [address] Eosinophils/100 WBC (Bld) 0.6 % Normal [facility] Comment on above: Performed By: #### E DKG #### [address] [place], [place] [address] Immature Grans 1.50 % Normal [facility] Comment on above: Performed By: #### E DKG #### [facility] [address] [place] [address] Lymphocytes #/vol (Bld) 1.64 thou/cmm Normal 1.18-3.74 [facility] Comment on above: Performed By: #### E DKG #### [facility] [address] [place] [address] Lymphocytes/100 WBC (Bld) 10.9 % Normal [facility] Comment on above: Performed By: #### E DKG #### [facility] [address] [place] [address] Monocytes/100 WBC (Bld) 7.1 % Normal [facility] Comment on above: Performed By: #### E DKG #### [place] [address] Seg Neutrophil 79.6 % Normal [facility] Comment on above: Performed By: #### E DKG #### [facility] [address] [place] [address] Erythrocyte distribution width Ratio (RBC) 12.3 % Normal 11.7-14.4 [facility] Comment on above: Performed By: #### E DKG #### [facility] [address] [place] [address] Hematocrit Volume Fraction (Bld) 36.3 % Normal 34.1-44.9 [facility] Comment on above: Performed By: #### E DKG #### [facility] [address] [place] [address] Hemoglobin mass conc (Bld) 12.3 g/dL Normal 11.2-15.7 [facility] Comment on above: Performed By: #### E DKG #### [facility] [address] [place] [address] MCH Entitic mass (RBC) 30.5 pg Normal 25.6-32.2 [facility] Comment on above: Performed By: #### E DKG #### [facility] [address] [place] [address] MCHC mass conc (RBC) 33.9 % Normal 31.6-34.8 [facility] Comment on above: Performed By: #### E DKG #### [facility] [address] [place] [address] MCV Entitic volume (RBC) 90.1 fL Normal 79.4-94.8 [facility] Comment on above: Performed By: #### E DKG #### [facility] [address] [place] [address] Platelet mean volume Entitic volume (Bld) 10.3 fL Normal 9.4-12.3 [facility] Comment on above: Performed By: #### E DKG #### [place] [address] Platelets #/vol (Bld) 268 thou/cmm Normal 182-369 [facility] Comment on above: Performed By: #### E DKG #### [place] [address] RBC #/vol (Bld) 4.03 mil/cmm Normal 3.93-5.22 [facility] Comment on above: Performed By: #### E DKG #### [place] [address] RDW SD 40.4 fl Normal 36.4-46.3 [facility] Comment on above: Performed By: #### E DKG #### [place] [address] WBC #/vol (Bld) 15.08 thou/cmm High 3.98-10.04 [facility] Comment on above: Performed By: #### E DKG #### [place] [address] Hgb A1con 03-01-2018 Hemoglobin A1c/Hemoglobin.total mass fraction (Bld) 14.7 % High 4.2-6.3 [facility] Comment on above: Result Comment: Meth od is National Glycohemoglobin Standardization Program (NGSP) compliant. Performed By: #### E DKG #### [address] [place], [place] [address] Hemoglobin A1c/Hemoglobin.total mass fraction (Bld) 375 mg/dl Normal [facility] Comment on above: Performed By: #### E DKG #### [facility] [address] [place] [address] Lactic Acidon 03-01-2018 Lactate molar conc 1.6 mmol/L Normal 0.5-2.2 [facility] Comment on above: Performed By: #### E DKG #### [facility] [address] [place] [address] Lipase Bloodon 03-01-2018 Lipase Blood 290 U/L Normal 73-393 [facility] Comment on above: Performed By: #### L IP #### [facility] [address] [place] [address] Magnesium Bloodon 03-01-2018 Magnesium mass conc 1.8 mg/dL Normal 1.6-2.6 [facility] Comment on above: Performed By: #### E DKG #### [facility] [address] [place] [address] Phosphorus Bloodon 8 Phosphate mass conc 2.5 mg/dL Normal 2.5-4.9 [facility] Comment on above: Performed By: #### E DKG #### [facility] [address] [place] [address] Potassiumon 03-01-2018 Potassium molar conc 4.1 mmol/L Normal 3.4-4.5 [facility] Comment on above: Performed By: #### E DKG #### [facility] [address] [place] [address] Urinalysis Routineon 018 Bacteria LM.HPF #/area (Urine sed) FEW Normal None [facility] Comment on above: Performed By: #### U RIN2 #### [facility] [address] [place] [address] Ep Cells Urine 8.4 /hpf High 0.0-5.0 [facility] Comment on above: Performed By: #### U RIN2 #### [place] [address] Hyaline Cast 1.9 /lpf High 0.0-1.0 [facility] Comment on above: Performed By: #### U RIN2 #### [facility] [address] [place] [address] RBC,Urine 46.8 /hpf High 0.0-5.0 [facility] Comment on above: Performed By: #### U RIN2 #### [facility] [address] [place] [address] WBC, Urine 158.5 /hpf High 0.0-5.0 [facility] Comment on above: Performed By: #### U RIN2 #### [facility] [address] [place] [address] Appearance Nom (U) CLOUDY Normal [facility] Comment on above: Performed By: #### U RIN2 #### [facility] [address] [place] [address] Bilirubin Urine Negative Normal Negative [facility] Comment on above: Performed By: #### U RIN2 #### [facility] [address] [place] [address] Color Nom (U) YELLOW Normal [facility] Comment on above: Performed By: #### U RIN2 #### [facility] [address] [place] [address] Glucose Ql (U) >=1000 Abnormal Negative [facility] Comment on above: Performed By: #### U RIN2 #### [facility] [address] [place] [address] Hemoglobin,Urine SMALL Abnormal Negative [facility] Comment on above: Performed By: #### U RIN2 #### [facility] [address] [place] [address] Ketone Urine TRACE Abnormal Negative [facility] Comment on above: Performed By: #### U RIN2 #### [facility] [address] [place] [address] Leukocytes Esterase MODERATE Abnormal Negative [facility] Comment on above: Performed By: #### U RIN2 #### [place] [address] Nitrites Urine Negative Normal Negative [facility] Comment on above: Performed By: #### U RIN2 #### [facility] [address] [place], [place] [address] pH (U) 5.0 [pH] Normal 5.0-8.0 [facility] Comment on above: Performed By: #### U RIN2 #### [facility] [address] [place], [place] [address] Protein mass conc (U) Negative Normal Negative [facility] Comment on above: Performed By: #### U RIN2 #### [facility] [address] [place] [address] Specific [place], Ur 1.034 Normal 1.005-1.030 [facility] Comment on above: Performed By: #### U RIN2 #### [facility] [address] [place] [address] Urobilinogen,Ur 0.2 EU/dL Normal 0.0-1.0 [facility] Comment on above: Performed By: #### U RIN2 #### [facility] [address] [place] [address] Venous Blood Gason 8 Base Excess -3.2 mEq/L Low -2.5 to 2.5 [facility] Comment on above: Performed By: #### E DVBG #### [place] [address] HCO3 molar conc (Bld) 21.2 mmol/L Normal 21.0-30.0 [facility] Comment on above: Performed By: #### E DVBG #### [facility] [address] [place], [place] [address] PCO2 Venous 38.1 mm Hg Low 40.6-60.0 [facility] Comment on above: Performed By: #### E DVBG #### [facility] [address] [place] [address] pH Venous 7.364 Normal 7.320-7.430 [facility] Comment on above: Performed By: #### E DVBG #### [address] [address] PO2 Venous 42.3 mm Hg High 15.9-37.5 [facility] Comment on above: Performed By: #### E DVBG #### [facility] [address] [place] [address] Culture, urine Bacteria identified Cx Nom (U) Positive [facility] Work Phone: Vital Signs Date Time Vital Sign Value Performing Clinician Elke woodard 09-08-2023 13:04-0400 Body height 167.6 cm Lex Roca MD Work Phone: [facility] [employer] 09-08-2023 13:04-0400 Body mass index (BMI) [Ratio] 50.84 kg/m2 Lex Roca MD Work Phone: [facility] [employer] 09-08-2023 13:04-0400 Body weight 142.88 kg Lex Roca MD Work Phone: [facility] [employer] 09-07-2023 23:42-0400 Diastolic blood pressure 89 mm[Hg] Debora [place] DO Work Phone: [facility] [employer] 09-07-2023 23:42-0400 Heart rate 84 /min Debora [place] DO Work Phone: [facility] [employer] 09-07-2023 23:42-0400 Respiratory rate 16 /min Debora [place] DO Work Phone: [facility] [employer] 09-07-2023 23:42-0400 SaO2% (BldA) [Mass fraction] 98 % Debora [place] DO Work Phone: [facility] [employer] 09-07-2023 23:42-0400 Systolic blood pressure 140 mm[Hg] Debora [place] DO Work Phone: [employer] 09-07-2023 17:28-0400 Body temperature 98.6 [degF] Debora [place] DO Work Phone: [facility] [employer] 12-11-2022 13:25-0400 Diastolic blood pressure 83 mm[Hg] Micheal Silva MD Work Phone: [facility] [employer] 12-11-2022 13:25-0400 Heart rate 102 /min Micheal Silva MD Work Phone: [facility] [employer] 12-11-2022 13:25-0400 Respiratory rate 18 /min Micheal Silva MD Work Phone: [facility] [employer] 12-11-2022 13:25-0400 SaO2% (BldA) [Mass fraction] 93 % Micheal Silva MD Work Phone: [facility] [employer] 12-11-2022 13:25-0400 Systolic blood pressure 145 mm[Hg] Micheal Silva MD Work Phone: [facility] [employer] 12-11-2022 11:50-0400 Body height 167.6 cm Micheal Silva MD Work Phone: [facility] [employer] 12-11-2022 11:50-0400 Body mass index (BMI) [Ratio] 51 kg/m2 Micheal Silva MD Work Phone: [facility] [employer] 12-11-2022 11:50-0400 Body temperature 97.5 [degF] Micheal Silva MD Work Phone: [facility] [employer] 12-11-2022 11:50-0400 Body weight 143.34 kg Micheal Silva MD Work Phone: [facility] [employer] 11-12-2022 10:30-0400 Diastolic blood pressure 82 mm[Hg] Micheal Silva MD Work Phone: [facility] [employer] 11-12-2022 10:30-0400 Heart rate 86 /min Micheal Silva MD Work Phone: [facility] [employer] 11-12-2022 10:30-0400 Systolic blood pressure 151 mm[Hg] Micheal Silva MD Work Phone: [facility] [employer] 05-21-2022 10:00-0500 Body height 167.6 cm Lex Roca Work Phone: [facility] [employer] 05-21-2022 10:00-0500 Body mass index (BMI) [Ratio] 50.84 kg/m2 Lex Roca Work Phone: [facility] 05-21-2022 10:00-0500 Body weight 142.88 kg Lex Roca Work Phone: [facility] Encounters Encounter Date Encounter Type Care Provider Facility Start: 08-16-2024 ambulatory Lex HERNANDEZ Facil ity:[facility] Start: 07-19-2024 Registered Referred Lex Tovar ramo Vargas - [address] Start: 07-19-2024 End: 07-19-2024 ambulatory Lex Marah MARY Facility:[facility] Start: 07-17-2024 End: 07-17-2024 ambulatory Lex Roca MARY [facility] Work Phone: Start: 07-17-2024 End: 07-17-2024 Departed Referred Lex Vargas - [address] Start: 07-17-2024 End: 07-17-2024 ambulatory Lex HERNANDEZ Facility:[facility] Start: 07-13-2024 End: 07-14-2024 Emergency department patient visit LEX ROCA [facility] Start: 07-12-2024 End: 07-13-2024 Emergency department patient visit LEX ROCA [facility] Start: 07-08-2024 End: 07-11-2024 Evaluation and management of inpatient LEX ROCA [facility] Start: 07-04-2024 Registered Referred Lex Enriquezemanuel BrionesRamón magidarshana BurtonSam - [address] Start: 07-04-2024 End: 07-04-2024 ambulatory Lex Marah HERNANDEZ Facility:[facility] Start: 07-03-2024 End: 07-04-2024 Emergency department patient visit Marcel Arriola [facility] Start: 06-23-2024 End: 06-23-2024 Departed Referred Lex Vargas - [address] Start: 06-23-2024 End: 06-23-2024 ambulatory Lex HERNANDEZ Facility:[facility] Start: 05-03-2024 ambulatory Lex HERNANDEZ Facil ity:[facility] Start: 05-03-2024 Registered Referred Lex Roca -Ramón ltramo Sam - [address] Start: 04-26-2024 ambulatory Lex Marah MARY Facil ity:[facility] Start: 04-26-2024 Registered Referred Lex Roca -Ramón ltramo Sam - [address] Start: 04-24-2024 ambulatory Lex Marah MARY Facil ity:[facility] Start: 04-24-2024 Registered Referred Lex Roca -Ramón stein [place] - [address] Start: 04-19-2024 End: 04-19-2024 Departed Referred Lex Roca -Mira Sam - [address] Start: 04-19-2024 End: 04-19-2024 ambulatory Lex HERNANDEZ Facility:[facility] Start: 04-10-2024 End: 04-10-2024 Departed Referred Lex Roca -Mira [place] - [address] Start: 04-10-2024 End: 04-10-2024 ambulatory Lex HERNANDEZ Facility:[facility] Start: 03-27-2024 End: 03-27-2024 ambulatory Lex HERNANDEZ Facility:[facility] Start: 03-16-2024 ambulatory Lex HERNANDEZ Facil ity:[facility] Start: 03-09-2024 End: 03-09-2024 ambulatory Lex HERNANDEZ Facility:[facility] Start: 03-02-2024 End: 03-02-2024 ambulatory Lex HERNANDEZ Facility:[facility] Start: 02-23-2024 End: 02-23-2024 ambulatory Lex HERNANDEZ Facility:[facility] Start: 02-10-2024 End: 02-10-2024 ambulatory Lex HERNANDEZ Facility:[facility] Start: 01-18-2024 End: 01-18-2024 ambulatory Lex HERNANDEZ Facility:[facility] Start: 12-03-2023 End: 12-03-2023 ambulatory Lex HERNANDEZ Facility:[facility] Start: 10-18-2023 End: 10-18-2023 ambulatory Lex HERNANDEZ Facility:[facility] Start: 09-08-2023 End: 09-08-2023 Subsequent hospital visit by physician Lex Roca MD Work Phone: [facility] Comment on above: Encounter for screen ing mammogram for malignant neoplasm of breast Start: 09-07-2023 End: 09-07-2023 Emergency department patient visit Debora Paulson DO Work Phone: [facility] Comment on above: Shortness of breath (Primary Dx); Chronic kidney disease, unspecified CKD stage; Asymptomatic hypertension Start: 05-10-2023 Transcribe Orders Lex hargrove Work Phone: [facility] Comment on above: Encounter for screen ing mammogram for malignant neoplasm of breast (Primary Dx) Start: 02-13-2023 End: 02-13-2023 ambulatory [facility] Work Phone: Start: 02-13-2023 End: 02-13-2023 Departed Referred [facility] - [address] Start: 02-13-2023 Registered Referred [facility] [address] Start: 02-05-2023 End: 02-05-2023 ambulatory [facility] Work Phone: Start: 02-05-2023 End: 02-05-2023 Departed Referred [facility] - [address] Start: 12-11-2022 End: 12-11-2022 Subsequent hospital visit by physician Micheal Arnold MD Work Phone: [facility] Comment on above: Abdominal pain, left lower quadrant (Primary Dx) Start: 11-25-2022 End: 11-25-2022 ambulatory [facility] Work Phone: Start: 11-25-2022 End: 11-25-2022 Departed Referred [facility] - [address] Start: 11-25-2022 Registered Referred [facility] - [address] Start: 11-12-2022 End: 11-12-2022 Office outpatient new 60 minutes Micheal Arnold MD Work Phone: [facility] Comment on above: Abdominal pain, left lower quadrant (Primary Dx); Nausea and vomiting, unspecified vomiting type Start: 11-05-2022 End: 11-05-2022 ambulatory [facility] Work Phone: Start: 11-05-2022 End: 11-05-2022 Departed Referred [facility] - [address] Start: 10-09-2022 End: 10-09-2022 ambulatory [facility] Work Phone: Start: 10-09-2022 End: 10-09-2022 Departed Referred [facility] - [address] Start: 10-09-2022 Registered Referred [facility] - [address] Start: 08-28-2022 End: 08-28-2022 ambulatory [facility] Work Phone: Start: 08-28-2022 End: 08-28-2022 Departed Referred [facility] - [address] Start: 07-16-2022 End: 07-16-2022 ambulatory [facility] Work Phone: Start: 07-16-2022 End: 07-16-2022 Departed Referred [facility] - [address] Start: 06-04-2022 End: 06-04-2022 ambulatory [facility] Work Phone: Start: 06-04-2022 End: 06-04-2022 Departed Referred [facility] - [address] Start: 05-21-2022 End: 05-21-2022 Subsequent hospital visit by physician Lex Roca Work Phone: [facility] Comment on above: Encounter for screen ing mammogram for malignant neoplasm of breast Start: 03-09-2022 End: 03-09-2022 ambulatory [facility] Work Phone: Start: 03-09-2022 End: 03-09-2022 Departed Referred [facility] - [address] Start: 12-04-2021 End: 12-04-2021 ambulatory [facility] Work Phone: Start: 12-04-2021 End: 12-04-2021 Departed Referred [facility] - [address] Start: 10-20-2021 End: 10-20-2021 Departed Referred [facility] - [address] Start: 08-11-2021 End: 08-11-2021 Departed Referred [facility] - [address] Start: 05-20-2021 End: 05-20-2021 Subsequent hospital visit by physician Lex Roca MD Work Phone: NEVAEH Sinclair Comment on above: Arrived Start: 05-05-2021 End: 05-05-2021 Departed Referred [facility] [address] Start: 08-12-2018 End: 08-12-2018 Patient encounter procedure JERAMY [facility] Start: 08-09-2018 End: 08-09-2018 Patient encounter procedure HANANE Hargrove [facility] Start: 07-17-2018 End: 07-18-2018 Patient encounter procedure [place] Start: 06-27-2018 End: 06-27-2018 Emergency department patient visit IMCA Facility:[facility] Start: 06-25-2018 End: 06-25-2018 Patient encounter procedure KRUPA STEINBERG [facility] Start: 05-06-2018 End: 05-07-2018 Patient encounter procedure CORY LA [facility] Start: 03-01-2018 End: 03-15-2018 Evaluation and management of inpatient IMCA Facility:[facility] Procedures Date Procedure Procedure Detail Performing Clinician Start: 07-19-2024 Urine culture Lex Smiley Start: 07-19-2024 Parathyroid hormone measurement Lex HERNANDEZ Start: 07-19-2024 Serum inorganic phos phate measurement Lex HERNANDEZ Start: 07-19-2024 Vitamin D, 25-hydrox y measurement Lex HERNANDEZ Comment on above: Vitamin D StatusDefi ciency: <20 ng/mL (50nmol/L)Insufficiency: 20-30 ng/mL (50-75 nmol/L)Sufficiency: 30-100 ng/mL (75-250 nmol/L)Toxicity: >100 ng/mL (>250 nmol/L) Start: 07-19-2024 Urnls dip stick/tabl et reagent auto microscopy Lex HERNANDEZ Start: 04-26-2024 Measurement of renal function Lex HERNANDEZ Comment on above: GFR Calc Start: 04-24-2024 Measurement of renal function Lex HERNANDEZ Comment on above: GFR Calc Start: 04-19-2024 Measurement of renal function Lex HERNANDEZ Comment on above: GFR Calc Start: 04-10-2024 Measurement of renal function Lex HERNANDEZ Comment on above: GFR Calc Start: 09-08-2023 End: 09-08-2023 Screening digital breast tomosynthesis bi Lex Roca MD Work Phone: Start: 09-07-2023 Assay of troponin quantitative Ravi Carney CLINICAL TRIALS NURSE - [employer] Work Phone: Start: 09-07-2023 Basic metabolic pane l calcium total Ravi Carney CLINICAL TRIALS NURSE - PRODUCTION TEAM MANAGER Work Phone: Start: 09-07-2023 Radiologic exam ches t single view Ravi aCrney CLINICAL TRIALS NURSE - PRODUCTION TEAM MANAGER Work Phone: Start: 09-07-2023 Ecg routine ecg w/le ast 12 lds trcg only w/o i&r Ravi Carney CLINICAL TRIALS NURSE - PRODUCTION TEAM MANAGER Work Phone: Start: 02-13-2023 Urine culture Start: 12-11-2022 Glucose quantitative blood xcpt reagent strip Micheal Arnold MD Work Phone: Start: 12-11-2022 Colonoscopy Micheal Silva MD Work Phone: Start: 08-28-2022 Investigation of tra nsfusion reaction Start: 08-28-2022 Microbial culture, routine Start: 05-21-2022 End: 05-21-2022 Mammography Lex Roca Work Phone: Start: 05-20-2021 Screening digital br east tomosynthesis bi Lex Roca MD Work Phone: Start: 06-27-2018 Electrocardiogram ANUPAM WILLIS Start: 03-01-2018 Electrocardiogram ANUPAM WILLIS Microbial culture, routine Urine culture Plan of Treatment Date Care Activity Detail Author Start: 12-11-2032 Screening for malignant neoplasm of colon [facility] Start: 03-01-2028 DTaP/Tdap/Td vaccine (4 - Td or Tdap) DTaP/Tdap/Td vaccine (4 - Td or Tdap) [facility] Start: 03-01-2028 DTaP/Tdap/Td Vaccines (4 - Td or Tdap) DTaP/Tdap/Td Vaccines (4 - Td or Tdap) [facility] Start: 2026 Pneumococcal 0-64 years Vaccine (2 of 2 - PPSV23) Pneumococcal 0-64 years Vaccine (2 of 2 - PPSV23) [facility] Start: 2026 Pneumococcal Vaccine: Pediatrics (0 to 5 Years) and At-Risk Patients (6 to 64 Years) (3 - PPSV23 if available, else PCV20) Pneumococcal Vaccine: Pediatrics (0 to 5 Years) and At-Risk Patients (6 to 64 Years) (3 - PPSV23 if available, else PCV20) [facility] Start: 2026 Pneumococcal Vaccine: Pediatrics (0 to 5 Years) and At-Risk Patients (6 to 64 Years) (3 of 3 - PPSV23 or PCV20) Pneumococcal Vaccine: Pediatrics (0 to 5 Years) and At-Risk Patients (6 to 64 Years) (3 of 3 - PPSV23 or PCV20) [facility] Start: 07-12-2025 Glaucoma screening Diabetes: Retinopathy Screening [facility] Start: 09-07-2024 Screening for malignant neoplasm of breast Mammogram [facility] Start: 09-06-2024 Diabetes: Estimated Glomerular Filtration Rate for Kidney Health Diabetes: Estimated Glomerular Filtration Rate for Kidney Health [facility] Start: 06-04-2024 Glaucoma screening Diabetes: Retinopathy Screening [facility] Start: 11-21-2023 Influenza vaccination Influenza Vaccine (Season Ended) [facility] Start: 09-08-2023 End: 09-08-2023 Patient encounter procedure 09/08/2023 1:00 PM EDT Appointment [facility] [address] [place] [address] Lex Roca MD [address] [place] [address] [id number] [place] [address] [facility] Start: 08-06-2023 Glaucoma screening Diabetes: Retinopathy Screening [facility] Start: 05-22-2023 Screening for malignant neoplasm of breast Mammogram [facility] Start: 05-10-2023 End: 07-08-2024 DBT Breast - bilateral screening Bilateral screening mammogram with tomosynthesis Imaging Routine Encounter for screening mammogram for malignant neoplasm of breast Expected: 05/10/2023, Expires: 07/08/2024 [facility] [employer] Work Phone: Comment on above: Expected: 05/10/2023, Expires: Start: 12-11-2022 End: 12-11-2022 Colonoscopy flx dx w/collj spec when pfrmd COLONOSCOPY Left lower quadrant pain Nausea with vomiting, unspecified 12/11/2022 12:36 PM EDT [facility] Start: 12-11-2022 End: 12-11-2022 Esophagogastroduodenoscopy transoral diagnostic EGD DIAGNOSTIC Left lower quadrant pain Nausea with vomiting, unspecified 12/11/2022 12:36 PM EDT [facility] Start: 11-20-2022 COVID-19 Vaccine ( season) COVID-19 Vaccine ( season) [facility] Start: 11-20-2022 Influenza vaccination Influenza Vaccine (#1) [facility] Start: 2021 RSV Immunization aged 60 or older (1 - 1-dose 60+ series) RSV Immunization aged 60 or older (1 - 1-dose 60+ series) [facility] Start: 11-20-2021 Influenza vaccination Influenza Vaccine (#1) [facility] Start: 11-20-2020 Influenza vaccination Flu vaccine (#1) [facility] Start: 09-15-2020 COVID-19 Vaccine (3 - Booster for Pfizer series) COVID-19 Vaccine (3 - Booster for Pfizer series) [facility] Start: 06-12-2020 COVID-19 Vaccine (3 - Booster for Pfizer series) COVID-19 Vaccine (3 - Booster for Pfizer series) [facility] Start: 07-18-2019 Creatinine measurement Creatinine monitoring [facility] Start: 07-18-2019 Potassium monitoring Potassium monitoring [facility] Start: 07-17-2019 Hemoglobin A1c measurement A1C test (Diabetic or Prediabetic) [facility] Start: 12-16-2018 Screening for malignant neoplasm of breast Breast cancer screen [facility] Start: 12-08-2011 Shingles Vaccine (1 of 2) Shingles Vaccine (1 of 2) [facility] Start: 12-08-2011 Zoster Vaccines (1 of 2) Zoster Vaccines (1 of 2) [facility] Start: 2006 Screening for malignant neoplasm of colon [facility] Start: 12-08-1991 Screening for malignant neoplasm of cervix [facility] Start: 1982 Screening for malignant neoplasm of cervix Pap smear [facility] Start: 1980 Hepatitis B vaccine (1 of 3 - Risk 3-dose series) Hepatitis B vaccine (1 of 3 - Risk 3-dose series) [facility] Start: 1980 Urine screening for protein Diabetes: Urine Protein Screening [facility] Start: 12-08-1979 Diabetes: Estimated Glomerular Filtration Rate for Kidney Health Diabetes: Estimated Glomerular Filtration Rate for Kidney Health [facility] Start: 12-08-1979 Diabetes: Urine Albumin-Creatinine Ratio for Kidney Health Diabetes: Urine Albumin-Creatinine Ratio for Kidney Health [facility] Start: 12-08-1979 Diabetic retinal exam Diabetic retinal exam [facility] Start: 12-08-1979 Hepatitis C screening Hepatitis C Screening [facility] Start: 12-08-1979 Urine screening for protein Diabetic microalbuminuria test [facility] Start: 1976 HIV screening HIV screen [facility] Start: 1973 Depression Screen Depression Screen [facility] Start: 1973 Depression Screening Depression Screening [facility] Start: 12-08-1971 Diabetic foot examination [facility] Start: 12-08-1971 Lipid panel Lipid screen [facility] Start: 12-08-1971 Preventive dental service Diabetes: Dental Exam [facility] Start: 1962 MMR Vaccines (1 of 1 - Standard series) MMR Vaccines (1 of 1 - Standard series) [facility] Start: 1961 Hemoglobin A1c measurement Diabetes: Hemoglobin A1C [facility] Start: 1961 Hepatitis B Vaccines (1 of 3 - 3-dose series) Hepatitis B Vaccines (1 of 3 - 3-dose series) [facility] Start: 1961 Hepatitis C screening Hepatitis C screen [facility] Start: 1961 HIV screening HIV Screening [facility] Start: 1961 Lipid panel Lipid Panel [facility] Start: 1961 Screening for malignant neoplasm of colon [facility] Start: 1961 Thyroid stimulating hormone measurement TSH Level [facility] Immunizations Immunization Date Immunization Notes Care Provider Fa cility 04-17-2020 Pfizer SARS-CoV-2 Vaccination Lex Roca Work Phone: [facility] 03-27-2020 Pfizer SARS-CoV-2 Vaccination Lex Roca Work Phone: [facility] 12-21-2017 tetanus toxoid, redu yohana diphtheria toxoid, and acellular pertussis vaccine, adsorbed Lex Roca MD Work Phone: [facility] 12-12-2017 Influenza, Quadv, 6 mo and older, IM, PF (Flulaval, Fluarix) Lex Roca MD Work Phone: [facility] 12-12-2017 influenza virus vacc ine, unspecified formulation Lex Roca Work Phone: [facility] 10-23-2017 tetanus toxoid, redu yohana diphtheria toxoid, and acellular pertussis vaccine, adsorbed Lex Roca MD Work Phone: [facility] Payers Date Payer Category Payer Self-pay [id number] 2018 Medicaid MEDICAID - [facility] [id number] 2018-Present [address] [place] [address] Medicaid [id number] 1961 Unknown [id number] [id number]8 1961 Unknown [id number] 2..840.1.963087.3.579.2.278 1961 Unknown [id number] 2.16.840.1.300560.3.579.2.668 1961 Unknown [id number] 2.16.840.1.928704.3.579.2.598 1961 Unknown [id number] 2.16.840.1.656626.3.579.2.598 1961 Unknown [id number] 2.16.840.1.023108.3.579.2.598 1961 Unknown [id number] 2.16.840.1.192300.3.579.2.598 1959 Medicaid [id number] Unknown Unknown [id number] 2.16.840.1.547276.3.579.2.462 Unknown [id number] 2..840.1.874227.3.579.2.462 Unknown [id number] 2..840.1.292741.3.579.2.462 Unknown [id number] 2.840.1.971216.3.579.2.462 Unknown [id number] 2.840.1.670687.3.579.2.462 Unknown [id number] 2.16.840.1.520985.3.579.2.462 Unknown [id number] 2.16.840.1.391381.3.579.2.462 Unknown [id number] 2.16.840.1.014543.3.579.2.462 Unknown [id number] 2.16.840.1.885327.3.579.2.462 Unknown [id number] 2.16.840.1.101795.3.579.2.462 Unknown [id number] 2.16.840.1.405395.3.579.2.462 Unknown [id number] 2.16.840.1.425617.3.579.2.462 Unknown [id number] 2.16.840.1.044400.3.579.2.462 Unknown [id number] 2.16.840.1.498576.3.579.2.462 Unknown [id number] 2.16.840.1.460126.3.579.2.462 Unknown [id number] 2.16.840.1.764323.3.579.2.462 Unknown [id number] 2.16.840.1.481943.3.579.2.462 Unknown [id number] 2.16.840.1.368145.3.579.2.462 Unknown [id number] 2.16.840.1.553778.3.579.2.462 Social History Date Type Detail Facility Start: 09-20-2017 Tobacco smoking stat [facility] Work [facility]: Start: 09-20-2017 Tobacco use and exposure Smokeless tobacco non-user [employer] Work Phone: Start: 07-18-2018 End: 05-21-2022 Alcohol intake Current non-drinker of alcohol (finding) [employer] Phone: Start: 1960 Sex Assigned At Not on file [facility] Work Phone: Start: 1960 Sex Assigned At Female [facility] History of tobacco use Current smoker [facility] Start: 05-21-2022 End: 12-11-2022 History of Social function [facility] [employer] Start: 05-21-2022 End: 12-11-2022 Tobacco use panel [facility] Start: 05-11-2022 End: 12-11-2022 Exposure to SARS-CoV-2 (event) Not sure [facility] How often to you hav e a drink containing alcohol? Never [facility] How many standard drinks containing alcohol do you have on a typical day? Patient does not drink [facility] Tobacco smoking stat [facility] Unknown if ever smoked [facility] Work Phone: Clinical Notes 11-12-2022 to 07-11-2024 Bethanie Villalobos RN - 09/07/2023 11:43 PM Anjali Villalobos RN - 09/07/2023 11:43 PM Anjali Villalobos RN - 09/07/2023 11:42 PM Anjali Villalobos RN - 09/07/2023 7:15 PM EDTDischarge Instructions Note Date & Type Note Facility 07-11-2024 Note Referral placed to moy walton back to [facility] via [facility] per TCC request. Await review and response regarding ability to accept. TCC notified. [facility] 07-11-2024 Note Discharge Summary Cinthya Castillo : 1960 ADMIT DATE: 07/08/2024 DISCHARGE DATE: 07/11/2024 PRIMARY CARE PHYSICIAN: Lex Roca MD VISIT STATUS: inpatient CODE STATUS: Full Code DISCHARGE DIAGNOSES: Lower extremity cellulitis related to DM Venous ulcers Asthma Anemia HTN DM2 with hyperglycemia CKD stage 3 Developmental delay Pulmonary nodules STEFANI Class 3 obesity HOSPITAL COURSE: 63 year old presented with SOB and left leg pain, redness and wound present. She was admitted and placed on IV antibiotics. She was seen by Wound Care and PT/OT. She had no SOB, tachypnea, hypoxia or respiratory symptoms while here. She improved over her stay, was transitioned to oral antibiotics and discharged to [facility]. SIGNIFICANT DIAGNOSTIC STUDIES: none CONSULTANTS: Wound Care RECOMMENDED NEXT STEPS: Finish antibiotic course. Follow up with Wound Care. Physical Exam: Vitals: BP 151/66 Pulse 80 Temp 36.2 ?C (97.1 ?F) (Temporal) Resp 16 Ht 5' 6" (1.676 m) Wt (!) 303 lb (137 kg) SpO2 98% BMI 48.91 kg/m? Pulse Ox: SpO2 Av % Min: 96 % Max: 98 % General appearance: alert, cooperative and no distress Mental Status: oriented to person, place and time and normal affect Lungs: clear to auscultation bilaterally, normal effort Heart: regular rate and rhythm, + murmur Abdomen: soft, nontender, nondistended, bowel sounds present, no masses Extremities: trace edema, trace redness, no tenderness in the calves Skin: no gross lesions, rashes LABS: CBC: Recent Labs 07/09/2413007/10/2438 07/11/24310 WBC 7.8 8.5 8.9 RBC 3.87 4.00 3.91 HGB 11.4* 11.4* 11.3* HCT 34.9* 37.2 35.9 MCV 90.2 93.0 91.8 RDW 13.4 12.9 12.7 PLT 376 258 277 BMP: Recent Labs 07/09/2415807/10/2438 07/11/24310 NA 142 142 140 K 4.6 4.8 4.2 CL 112* 114* 112* CO2 22* 20* 20* BUN 58* 54* 48* CREATININE 2.37* 2.13* 2.12* GLUCOSE 227* 150* 120* CALCIUM 8.4* 8.4* 8.5* ANIONGAP 8 8 8 LIVER PROFILE: Recent Labs 07/08/24201107/09/2415807/11/24310 AST 23 20 19 ALT 18 11 10 BILITOT 0.3 0.3 0.2 ALKPHOS 66 59 55 PROT 7.3 6.5 6.5 DISCHARGE MEDICATIONS: Medication List START taking these medications acetaminophen 325 MG tablet Commonly known as: Tylenol Take 2 tablets (650 mg) by mouth every 6 hours as needed for mild pain (1-3) or fever (For temp greater than 100.4 F (38 C)) for up to 10 days. Replaces: acetaminophen 325 MG suppository cephalexin 500 MG capsule Commonly known as: Keflex Take 1 capsule (500 mg) by mouth 4 times daily for 4 days. CONTINUE taking these medications aspirin 81 MG EC tablet atorvastatin 20 MG tablet Commonly known as: Lipitor escitalopram 10 MG tablet Commonly known as: Lexapro fenofibrate micronized 67 MG capsule Commonly known as: Lofibra gabapentin 400 MG capsule Commonly known as: Neurontin hydrALAZINE 50 MG tablet Commonly known as: Apresoline insulin glargine 100 UNIT/ML injection Commonly known as: Lantus levothyroxine 75 MCG tablet Commonly known as: Synthroid, Levoxyl metoprolol succinate XL 100 MG 24 hr tablet Commonly known as: Toprol-XL rOPINIRole 0.5 MG tablet Commonly known as: Requip senna-docusate 8.6-50 MG tablet Commonly known as: Roxanne-Colace Trulicity 3 MG/0.5ML solution pen-injector Generic drug: dulaglutide STOP taking these medications acetaminophen 325 MG suppository Commonly known as: Tylenol Replaced by: acetaminophen 325 MG tablet D-MANNOSE PO doxycycline 100 MG capsule Commonly known as: Vibramycin lisinopril 40 MG tablet metFORMIN 500 MG tablet Commonly known as: Glucophage Where to Get Your Medications These medications were sent to [facility] [address] [place] [id number] Hours: Wednesday to Wednesday 10 am to 6 pm cephalexin 500 MG capsule You can get these medications from any pharmacy You don't need a prescription for these medications acetaminophen 325 MG tablet DIET: Adult diet Regular; 4 carb choices (60 gm/meal); Low Fat/Low Chol/High Fiber/2 gm Na ACTIVITY: up with assist COMPLEXITY OF FOLLOW UP: [] Moderate Complexity: follow up within 7-14 calendar days (23812) [] Severe Complexity: follow up within 7 calendar days (15861) FOLLOW UP TESTING, PENDING RESULTS OR REFERRALS AT TRANSITIONAL CARE VISIT: [] Yes [] No PENDING STUDIES: No DISPOSITION: ICF FACILITY/HOME CARE AGENCY NAME: Mira Vargas Follow up with [facility] - [address] [address] INSTRUCTIONS TO MA/SW: Please call patient on day after discharge (must document patient contacted within 2 business days of discharge). FOLLOW UP QUESTIONS FOR MA/SW: 1. Did you get medications filled an (more content not included)... [facility] 07-11-2024 Note Problem: Potential f or Compromised Skin Integrity Goal: Skin Integrity is Maintained or Improved Outcome: Progressing [facility] 07-10-2024 Note PHYSICAL THERAPY [facility] Initial Evaluation Name/MRN: Cinthya Castillo ([id number]) Evaluation Date: 07/10/2024 Date of : 1960 Admission Date: 07/08/2024 7:50 PM Age: 63 y.o. [facility]: B4465[facility] Discharge Recommendation: ECF with PT Equipment Needed: No Assessment IMPRESSION: Pt is a 63 y.o. female admitted 07/09 with LLE wound, cellulitis. Pt was previously independent with functional mobility with FWW. Pt is currently SBA for bed mobility, CGA to SBA for functional transfers, CGA for ambulation with FWW. Pt is currently limited by endurance, fatigue and will benefit from acute skilled PT to address current deficits. Recommend ECF with PT. Admitting Diagnosis: admitted 07/09 with LLE wound, cellulitis. Prognosis: good Performance Deficits /Impairments: Increased Pain, Decreased Functional Mobility, Decreased Strength, Decreased Safety Awareness, Decreased Endurance, Decreased Balance, and Decreased Cognition Decision Making: Medium Complexity Subjective Pt pleasant and agreeable to therapy session Pain: Delarosa-Arguelles Pain Ratin = Hurts even more Pain Location: BLE Past Medical History: Past Medical History: Diagnosis Date Asthma Developmental delay Diabetes mellitus (HCC) Diverticulosis Hiatal hernia Hypertension STEFANI (obstructive sleep apnea) Past Surgical History: Past Surgical History: Procedure Laterality Date ANKLE SURGERY COLONOSCOPY N/A 12/11/2022 Performed by Micheal Silva MD at [address] ENDOSCOPY Admission Diagnosis: Patient Active Problem List Diagnosis Date Noted Left leg cellulitis 07/08/2024 Shortness of breath 09/07/2023 Chronic kidney disease 09/07/2023 Lightheadedness 07/18/2018 Abdominal pain, left lower quadrant 07/18/2018 Hypertension 07/17/2018 Type 2 diabetes mellitus with hyperglycemia, without long-term current use of insulin (HCC) 07/17/2018 Nausea & vomiting 07/17/2018 Diabetes mellitus type 2 in obese (HCC) 12/19/2017 Hypoglycemia 12/19/2017 Neuropathy 12/19/2017 Intertrigo 12/19/2017 CAD (coronary artery disease) 12/19/2017 Generalized weakness 12/10/2017 Acute renal injury (HCC) 12/10/2017 Medical Precautions: No active isolations Proper PPE donned/doffed in accordance with facility standards. Fall Risk: Kumar Fall Risk Score: 60 (Low Risk) Kumar Fall Risk Score: 60 (High Risk) Precautions/Restrictions: N/A Family/Caregiver Present: none Overall Cognitive Status: Exceptions - Attention span: attends with cues to redirect - Memory: decreased recall of recent events and decreased short term memory - Sequencing: requires cues for some Overall Orientation Status: Oriented to Person Vision: wears glasses at all times and and are being used during the eval Hearing: normal Social/Functional History Patient admitted from [facility]. Assistive Equipment: front wheeled walker Prior Level of Function Prior Level of ADL Function: Required Assist Prior Level of Mobility: Independent; Device: Front wheeled walker Prior Level of Transfers: Independent Objective Lower Extremity Assessment AROM: WFL Strength: Exceptions: mildly decreased in BLE noted with functional mobility Balance: Balance During Session: Posture: fair Standing - Static: Contact Guard Standing - Dynamic: Contact Guard Bed Mobility: Supine to sit: SBA Sit to supine: SBA Pt completes bed mobility at SBA with HOB elevated and use of bed rails. Increased time and effort to complete. Transfers Sit to stand: Contact Guard Stand to sit: SBA Pt completes sit->stand from EOB to FWW. Pt places BUE on FWW with increased time to initiate. Pt returns to sitting EOB with no device at SBA. Pt abandons FWW however no LOB. Ambulation Ambulation 1 Assistive device(s) used: Front wheeled walker Assist level: Contact Guard Distance (ft): ~200 feet x1 Quality of gait: No LOB, reciprocal stepping, slow davidson Pt demos short, reciprocal gait pattern, decreased gait speed. Pt requires CGA to monitor safety and stability. Pt demos mild forward flexed posture. Outcome Measures AM-PAC How much HELP from another person do you currently need Turning from your back to your side while in a flat bed without using bedrails?: A Little Moving from lying on your back to sitting on the side of a flat bed without using bedrails?: A Little Moving to and from a bed to a chair (including a wheelchair)?: A Little Standing up from a chair using your arms (wheelchair or bedside chair)?: A Little Walking in a hospital room?: A Little Stair climbing assessed?: No AM-PAC Inpatient Mobility Raw Score (No Stairs) : 15 JH-HLM -HLM Score: Walked 25 ft or more (i.e. walked outside of room) Plan Pt would benefit from skilled acute PT services to address Strengthening, Gait Training, Balance Training, Functional Mobility Training, Endurance Training, Safety Education and Training, Pain Managemen (more content not included)... [facility] 07-10-2024 Note Hospitalist Progress Note 07/10/2024 Subjective: Admit Date: 07/08/2024 PCP: Lex Roca MD Room#: [id number] A Interval History: She is weak. Tolerating diet. Has a cough. No cp, sob, n/v, f/c. Edema persists. Has LE wounds. Case and plan discussed with patient. All questions answered. Adult diet Regular; 4 carb choices (60 gm/meal); Low Fat/Low Chol/High Fiber/2 gm Na 24HR INTAKE/OUTPUT: Intake/Output Summary (Last 24 hours) at 07/10/2024 0958 Last data filed at 07/10/2024 0100 Gross per 24 hour Intake -- Output 1425 ml Net -1425 ml Past Medical History: Past Medical History: Diagnosis Date Asthma Developmental delay Diabetes mellitus (HCC) Diverticulosis Hiatal hernia Hypertension STEFANI (obstructive sleep apnea) LABS: CBC: Recent Labs 07/08/24201107/09/24 0131 07/10/24 0538 WBC 7.8 7.8 8.5 RBC 4.14 3.87 4.00 HGB 12.2 11.4* 11.4* HCT 37.2 34.9* 37.2 MCV 89.9 90.2 93.0 RDW 13.1 13.4 12.9 PLT 314 376 258 BMP: Recent Labs 07/08/24201107/09/24 0159 07/10/24 0538 NA 141 142 142 K 4.8 4.6 4.8 CL 110* 112* 114* CO2 21* 22* 20* BUN 59* 58* 54* CREATININE 2.59* 2.37* 2.13* GLUCOSE 242* 227* 150* CALCIUM 8.8 8.4* 8.4* ANIONGAP 10 8 8 LIVER PROFILE: Recent Labs 07/08/24201107/09/24 0159 AST 23 20 ALT 18 11 BILITOT 0.3 0.3 ALKPHOS 66 59 PROT 7.3 6.5 PT/INR: No results for input(s): "PROTIME", "INR" in the last 72 hours. CARDIAC ENZYMES: No results for input(s): "TROPONINI" in the last 72 hours. Procalcitonin: No results found for: "PROCAL" COVID-19 PCR: No results for input(s): "COVID19" in the last 72 hours. Objective: Vitals: BP 144/75 (BP Location: Left arm, Patient Position: Lying) Pulse 79 Temp 36.2 ?C (97.2 ?F) (Temporal) Resp 18 Ht 5' 6" (1.676 m) Wt (!) 303 lb (137 kg) SpO2 96% BMI 48.91 kg/m? Pulse Ox: SpO2 Av % Min: 96 % Max: 96 % Supplemental O2: Physical Exam Vitals and nursing note reviewed. Constitutional: General: She is not in acute distress. Appearance: She is obese. HENT: Head: Normocephalic and atraumatic. Mouth/Throat: Mouth: Mucous membranes are dry. Eyes: Extraocular Movements: Extraocular movements intact. Conjunctiva/sclera: Conjunctivae normal. Pupils: Pupils are equal, round, and reactive to light. Cardiovascular: Rate and Rhythm: Normal rate and regular rhythm. Pulses: Normal pulses. Heart sounds: Murmur heard. Pulmonary: Effort: Pulmonary effort is normal. Breath sounds: Rhonchi present. Comments: Coarse breath sounds bilaterally Abdominal: General: Bowel sounds are normal. There is no distension. Palpations: Abdomen is soft. Tenderness: There is no abdominal tenderness. There is no rebound. Musculoskeletal: General: Tenderness present. Normal range of motion. Cervical back: Neck supple. Right lower leg: Edema present. Left lower leg: Edema present. Skin: General: Skin is warm. Capillary Refill: Capillary refill takes less than 2 seconds. Findings: Erythema and lesion present. Neurological: General: No focal deficit present. Mental Status: She is alert. Mental status is at baseline. Motor: Weakness present. Psychiatric: Mood and Affect: Mood normal. Medications: Scheduled PRN aspirin, 81 mg, Oral, Daily atorvastatin, 20 mg, Oral, Daily cefepime, 2,000 mg, IntraVENous, q12h enoxaparin, 40 mg, SubCUTAneous, Daily escitalopram, 10 mg, Oral, Daily fenofibrate, 54 mg, Oral, Daily gabapentin, 300 mg, Oral, TID hydrALAZINE, 50 mg, Oral, TID insulin glargine, 60 Units, SubCUTAneous, Nightly insulin lispro, 0-12 Units, SubCUTAneous, TID WC And insulin lispro, 0-12 Units, SubCUTAneous, Nightly levothyroxine, 75 mcg, Oral, qAM AC metoprolol succinate XL, 100 mg, Oral, Daily rOPINIRole, 0.5 mg, Oral, TID senna-docusate sodium, 2 tablet, Oral, BID vancomycin, 750 mg, IntraVENous, q24h PRN medications: acetaminophen OR acetaminophen, dextrose, dextrose, glucagon (rDNA), glucose, ondansetron ODT OR ondansetron Continuous Assessment Lower extremity cellulitis Venous ulcers SOB and cough Asthma Anemia HTN DM2 with hyperglycemia CKD stage 3 Developmental delay STEFANI Class 3 obesity Plan Adjust IV antibiotics, continue wound care, PT/OT, POCT, SS insulin, follow up labs, discharge planning, see orders. - am labs, replace lytes prn - PT/OT/CM/SW - delirium precautions: increase activity - DVT prophylaxis: enoxaparin and encourage ambulation Advance Directive: Full Code Anticipated Discharge - Date - 07/11-07/13 - Location - Skilled Facility - Pending the following - clinical improvement and completion of work up Total time spent (which include face to face and non face to face encounters) : 47 minutes Toxic drug monitoring/narrow therapeutic index drug monitoring : # Drug name : vancomycin, SS insulin and lovenox # Route administered : IV and subc (more content not included)... [facility] 07-10-2024 Note Pharmacy to Dose Van comycin - Progress Note Recent Labs 07/08/24201107/09/24 0159 07/10/24 0538 BUN 59* 58* 54* CREATININE 2.59* 2.37* 2.13* Lab Results Component Value Date [facility] 07/10/2024 Doses, serum creatinine, and vancomycin levels interfaced automatically to [employer] and data has been analyzed and interpreted. Infectious Diagnosis: SSTI Est CrCl: 58.8 mL/min (Cockcroft-Gault) Assessment: Current regimen vancomycin 750 mg every 24 hours. Predicted AUC = 484 mg/L*hr (goal 400-600 mg/L*hr) Plan: Is the current dose therapeutic? [x] Yes - obtain next level on 07/17 unless predicted AUC is sub-/supra-therapeutic or change in serum creatinine. Trend serum creatinine. Trend AUC using Bayesian Modeling. Orders placed. DATE: 07/10/24 TIME: 8:08 AM Aleksandr Desir, PharmD Clinical Pharmacist Available via [employer] [facility] 07-09-2024 Note Attending History an d Physical Admit Date: 07/08/2024 PCP: Lex Roca MD CHIEF COMPLAINT: Left leg wound, shortness of breath Reason for Admission: left leg cellulitis History Obtained From: patient, ER provider HISTORY OF PRESENT ILLNESS: Cinthya is a 63 y.o. female with past medical history significant for asthma, developmental delay, type 2 diabetes, hiatal hernia, hypertension. Patient presented to the emergency room with complaint of chest pain and shortness of breath. Patient's symptoms started 2 hours prior to arrival. Patient currently resides in a nursing facility. Patient also has a wound on the left leg. Exact duration is not known however patient was getting treated with the antibiotic which has not been effective. Patient otherwise did not have any fever or chills Past Medical History: Past Medical History: Diagnosis Date Asthma Developmental delay Diabetes mellitus (HCC) Diverticulosis Hiatal hernia Hypertension STEFANI (obstructive sleep apnea) Past Surgical History: Past Surgical History: Procedure Laterality Date ANKLE SURGERY COLONOSCOPY N/A 12/11/2022 Performed by Micheal Silva MD at [facility] Social History: Social History Socioeconomic History Marital status: Single Spouse name: Not on file Number of children: Not on file Years of education: Not on file Highest education level: Not on file Occupational History Not on file Tobacco Use Smoking status: Former Smokeless tobacco: Never Vaping Use Vaping status: Never Used Substance and Sexual Activity Alcohol use: No Drug use: No Sexual activity: Not on file Other Topics Concern Not on file Social History Narrative Not on file Social Drivers of Health Financial Resource Strain: Not on file Food Insecurity: Not on file Transportation Needs: Not on file Physical Activity: Not on file Stress: Not on file Social Connections: Not on file Intimate Partner Violence: Not on file Housing Stability: Not on file Family History: Family History Problem Relation Name Age of Onset No Known Problems Father No Known Problems Mother Medications Prior to Admission: Current Facility-Administered Medications: acetaminophen (Tylenol) tablet 650 mg, 650 mg, Oral, q6h PRN OR acetaminophen (Tylenol) suppository 650 mg, 650 mg, Rectal, q6h PRN, Omi Fernandez MD aspirin EC tablet 81 mg, 81 mg, Oral, Daily, Omi Fernandez MD atorvastatin (Lipitor) tablet 20 mg, 20 mg, Oral, Daily, Omi Fernandez MD cefepime (Maxipime) 2,000 mg in sodium chloride 0.9 % 50 mL IVPB Mini-Bag Plus, 2,000 mg, IntraVENous, q12h, Omi Fernandez MD dextrose 5 % infusion, 100 mL/hr, IntraVENous, PRN, Omi Fernandez MD dextrose 50 % solution 12.5 g, 12.5 g, IntraVENous, PRN, Omi Fernandez MD enoxaparin (Lovenox) syringe 40 mg, 40 mg, SubCUTAneous, Daily, Omi Fernandez MD escitalopram (Lexapro) tablet 10 mg, 10 mg, Oral, Daily, Omi Fernandez MD fenofibrate (Tricor) tablet 54 mg, 54 mg, Oral, Daily, Omi Fernandez MD gabapentin (Neurontin) capsule 300 mg, 300 mg, Oral, TID, Omi Fernandez MD glucagon (human recombinant) injection 1 mg, 1 mg, IntraMUSCular, PRN, Omi Fernandez MD glucose oral gel 15 g, 15 g, Oral, PRN, Omi Fernandez MD hydrALAZINE (Apresoline) tablet 50 mg, 50 mg, Oral, TID, Omi Fernandez MD insulin glargine (Lantus) injection 60 Units, 60 Units, SubCUTAneous, Nightly, Omi Fernandez MD, 60 Units at 07/09/24 0141 Insulin Lispro (Humalog) injection 0-12 Units, 0-12 Units, SubCUTAneous, TID WC AND Insulin Lispro (Humalog) injection 0-12 Units, 0-12 Units, SubCUTAneous, Nightly, Omi Fernandez MD, 4 Units at 07/09/24 0141 levothyroxine (Synthroid, Levoxyl) tablet 75 mcg, 75 mcg, Oral, qAM AC, Omi Fernandez MD, 75 mcg at 07/09/24 0511 metoprolol succinate XL (Toprol-XL) 24 hr tablet 100 mg, 100 mg, Oral, Daily, Omi Fernandez MD ondansetron ODT (Zofran-ODT) disintegrating tablet 4 mg, 4 mg, Oral, q8h PRN OR ondansetron (Zofran) injection 4 mg, 4 mg, IntraVENous, q6h PRN, Omi Fernandez MD rOPINIRole (Requip) tablet 0.5 mg, 0.5 mg, Oral, TID, Omi Fernandez MD senna-docusate sodium (Senokot-S) 8.6-50 MG tablet 1 tablet, 1 tablet, Oral, Daily, Omi Fernandez MD vancomycin (Vancocin) 750 mg in sodium chloride 0.9 % 250 mL IVPB, 750 mg, IntraVENous, q24h, Omi Fernandez MD Allergies: Allergies Allergen Reactions Penicillins Unknown unsure Pt unaware of reaction. Tolerated cephalexin 02/2018 REVIEW OF SYSTEMS: Constitutional: Negative for fever, chills, activity change and unexpected weight change. HEENT: Negative for congestion, postnasal drip and sneezing. Eyes: Negative for itching and visual disturbance. Respiratory: Negative for apnea, cough, choking, chest tightness, positive for shortness of breath Cardiovascular: Positive for chest pain. Gastrointestinal: Negative for nausea, vomiting, abdominal pain, diarrhea and blood in stool. Genitourinary: Negative for dysuria, frequency and flank pain. (more content not included)... [facility] 09-07-2023 Emergency department Note Discharge paperwork completed. Pt verbalized understanding regarding follow-up care. Reports decreased discomfort at time of departure. Bethanie Villalobos RN 09/07/23 5877 [facility] 09-07-2023 Emergency department Note Discharge paperwork completed. Pt verbalized understanding regarding follow-up care. Reports decreased discomfort at time of departure. Bethanie Villalobos RN 09/07/23 7616 [facility] at bedside receiving report and preparing for transport back to [facility]. Bethanie Villalobos RN 09/07/23 197 Received report from previous RN and assumed care of pt. Bethanie Villalobos RN 09/07/231914 Pt brought in from nursing facility with c/o shortness of breath. Patient has a known history of COPD. Patient 98% on room air, speaking in complete sentences, no acute distress noted. Asking for remote to television. States she wants to be admitted to the hospital because she doesn't feel like going back home. documented in this encounter [facility] 09-07-2023 Emergency department Note [facility] at bedside receiving report and preparing for transport back to [facility]. Bethanie Villalobos RN 09/07/23 966 [facility] 09-07-2023 Hospital Discharg e instructions WALESKA Cehney CNP - 09/07/2023 10:50 PM EDT Please make appointment to follow-up with your PCP in 2 days. The following attachments cannot be sent through Care Everywhere.Shortness of Breath (Dyspnea) Discharge Instructions (Iraqi)documented in this encounter [facility] 09-07-2023 Emergency department Note Received report from previous RN and assumed care of pt. Bethanie Villalobos RN 09/07/231914 [facility] 09-07-2023 Emergency department Triage note Pt brought in from nursing facility with c/o shortness of breath. Patient has a known history of COPD. Patient 98% on room air, speaking in complete sentences, no acute distress noted. Asking for remote to television. States she wants to be admitted to the hospital because she doesn't feel like going back home. [facility] 12-11-2022 Hospital Discharg e alan Coon RN - 12/11/2022 1:15 PM EDT Colonoscopy: What to expect at home ACTIVITY: DO NOT DRIVE, OPERATE MACHINERY, OR DRINK ANY ALCOHOL TODAY. Avoid making critical decisions, signing legal documents, or performing any activity that requires alertness for the rest of the day. You may be bloated or have gas pains since air was introduced into the colon for the procedure. You may need to pass the gas throughout the day. You may experience a small amount of rectal bleeding; this can be normal after your colonoscopy. Notify your physician if the bleeding is enough to saturate your clothes. Rest the remainder of the day. You may resume normal activity tomorrow. You may return to work tomorrow. DIET: You may resume a normal diet unless notified or recommended by your physician. You may be eager to eat a large meal after fasting, but it is a good idea to start with light meals and ease into solid foods the first day. (*) If your stomach is upset, try clear liquids and bland, low-fat foods like plain toast or rice. Drink plenty of fluids for the first 24 hours (unless your physician states otherwise). MEDICATION: Resume your normal home medications unless notified or recommended by your physician. If you take blood thinners (such as Coumadin, Eliquis, Plavix, Aspirin, etc.) or anti-inflammatory medications (Advil, Motrin, Aleve, etc.), ask your physician when you may resume these medications. FOLLOW-UP APPOINTMENT: Follow up with or call your physician as needed. When to call for help: Call your doctor IMMEDIATELY or seek medical care if you experience: Severe pain or vomiting A large amount (filling the toilet) of maroon, bloody stools or tar-like stools Your belly is swollen and firm with severe pain A fever greater than 101 degrees Redness or swelling of arm from the IV site for more than 48 hours Sudden onset of chest pain or shortness of breath If you become extremely dizzy or pass out (lose consciousness) IF YOU ARE UNABLE TO REACH YOUR PHYSICIAN GO TO NEAREST EMERGENCY DEPARTMENT documented in this encounter [facility] 12-11-2022 Note Formatting of this n ote might be different from the original. Images from the original note were not included. DEPARTMENT OF SURGERY OPERATIVE NOTE DATE OF PROCEDURE: 12/11/2022 ATTENDING SURGEON: Micheal Arnold MD MERCHANDISING EXECUTION MANAGER: 0 PREOPERATIVE DIAGNOSIS: Abdominal pain in the lower POSTOPERATIVE DIAGNOSIS: Also with history of peptic ulcer disease nausea with vomiting OPERATION: EGD ANESTHESIA: General ESTIMATED BLOOD LOSS: Iraqi Tolerated procedure well HISTORY: Patient referred for colonoscopy and EGD today by her primary physician at the [facility] history of peptic ulcer disease and gastritis she had a upper GI endoscopy to the second portion of duodenum no abnormalities seen PROCEDURE: The scope was inserted without difficulty esophagus stomach and duodenum biopsy was not necessary she had some mild atrophic gastritis but no ulcers or tumors tolerated the procedure well next turned over for colonoscopy [facility] 12-11-2022 Note Formatting of this n ote might be different from the original. Images from the original note were not included. DEPARTMENT OF SURGERY OPERATIVE NOTE DATE OF PROCEDURE: 12/11/2022 ATTENDING SURGEON: Micheal Arnold MD MERCHANDISING EXECUTION MANAGER: 0 PREOPERATIVE DIAGNOSIS: Abdominal pain in the lower mostly POSTOPERATIVE DIAGNOSIS: Few diverticuli nothing severe OPERATION: Colonoscopy ANESTHESIA: General ESTIMATED BLOOD LOSS: Iraqi HISTORY: Patient presenting with significant epigastric and lower abdominal pain referred by Dr. Lex Roca for colonoscopy PROCEDURE: Brought to the endoscopy suite given a general anesthetic she was found to have severe hemorrhoids grade 3-4 really few diverticuli along the colon but nothing obstructing the no polyps tumors or other mucosal disease. Cecum was reached without incident back the scope confirmed normal findings surgery was tolerated well T [facility] [employer] 12-11-2022 Note Formatting of this n ote might be different from the original. Images from the original note were not included. DEPARTMENT OF SURGERY OPERATIVE NOTE DATE OF PROCEDURE: 12/11/2022 ATTENDING SURGEON: Micheal Arnold MD MERCHANDISING EXECUTION MANAGER: 0 PREOPERATIVE DIAGNOSIS: Abdominal pain in the lower POSTOPERATIVE DIAGNOSIS: Also with history of peptic ulcer disease nausea with vomiting OPERATION: EGD ANESTHESIA: General ESTIMATED BLOOD LOSS: Iraqi Tolerated procedure well HISTORY: Patient referred for colonoscopy and EGD today by her primary physician at the [facility] history of peptic ulcer disease and gastritis she had a upper GI endoscopy to the second portion of duodenum no abnormalities seen PROCEDURE: The scope was inserted without difficulty esophagus stomach and duodenum biopsy was not necessary she had some mild atrophic gastritis but no ulcers or tumors tolerated the procedure well next turned over for colonoscopy [facility] [employer] 12-11-2022 Note Formatting of this n ote might be different from the original. Images from the original note were not included. DEPARTMENT OF SURGERY OPERATIVE NOTE DATE OF PROCEDURE: 12/11/2022 ATTENDING SURGEON: Micheal Arnold MD MERCHANDISING EXECUTION MANAGER: 0 PREOPERATIVE DIAGNOSIS: Abdominal pain in the lower mostly POSTOPERATIVE DIAGNOSIS: Few diverticuli nothing severe OPERATION: Colonoscopy ANESTHESIA: General ESTIMATED BLOOD LOSS: Iraqi HISTORY: Patient presenting with significant epigastric and lower abdominal pain referred by Dr. Lex Roca for colonoscopy PROCEDURE: Brought to the endoscopy suite given a general anesthetic she was found to have severe hemorrhoids grade 3-4 really few diverticuli along the colon but nothing obstructing the no polyps tumors or other mucosal disease. Cecum was reached without incident back the scope confirmed normal findings surgery was tolerated well [facility] 12-11-2022 Miscellaneous Notes Images from the original note were not included. DEPARTMENT OF SURGERY OPERATIVE NOTE DATE OF PROCEDURE: 12/11/2022 ATTENDING SURGEON: Micheal Arnold MD MERCHANDISING EXECUTION MANAGER: 0 PREOPERATIVE DIAGNOSIS: Abdominal pain in the lower POSTOPERATIVE DIAGNOSIS: Also with history of peptic ulcer disease nausea with vomiting OPERATION: EGD ANESTHESIA: General ESTIMATED BLOOD LOSS: Iraqi Tolerated procedure well HISTORY: Patient referred for colonoscopy and EGD today by her primary physician at the [facility] history of peptic ulcer disease and gastritis she had a upper GI endoscopy to the second portion of duodenum no abnormalities seen PROCEDURE: The scope was inserted without difficulty esophagus stomach and duodenum biopsy was not necessary she had some mild atrophic gastritis but no ulcers or tumors tolerated the procedure well next turned over for colonoscopy Images from the original note were not included. DEPARTMENT OF SURGERY OPERATIVE NOTE DATE OF PROCEDURE: 12/11/2022 ATTENDING SURGEON: Micheal Arnold MD MERCHANDISING EXECUTION MANAGER: 0 PREOPERATIVE DIAGNOSIS: Abdominal pain in the lower mostly POSTOPERATIVE DIAGNOSIS: Few diverticuli nothing severe OPERATION: Colonoscopy ANESTHESIA: General ESTIMATED BLOOD LOSS: Iraqi HISTORY: Patient presenting with significant epigastric and lower abdominal pain referred by Dr. Lex Roca for colonoscopy PROCEDURE: Brought to the endoscopy suite given a general anesthetic she was found to have severe hemorrhoids grade 3-4 really few diverticuli along the colon but nothing obstructing the no polyps tumors or other mucosal disease. Cecum was reached without incident back the scope confirmed normal findings surgery was tolerated well documented in this encounter [facility] 12-11-2022 History and physical note Images from the original note were not included. Office Visit 11/12/2022 [facility] General Surgery Micheal Silva MD General Surgery Abdominal pain, left lower quadrant +1 more Dx New Patient Reason for Visit Progress Notes Micheal Silva MD (Physician) General Surgery Expand All Collapse All HPI: Abdominal Pain: Patient complains of abdominal pain.Pain is located low abdomen. The pain is described as severe. Onset was 3 months ago. Symptoms have been gradually worsening since. Aggravatingfactors: eating. Associated symptoms: constipation, diarrhea, and nausea. The patient denies sweats. Thoroughly reviewed thepatient's medical history, family history, social history and review of systems with the patient today in the office. Please see medical record for pertinent positives. Medical History Past Medical History: Diagnosis Date Asthma Developmental delay Diabetes mellitus (HCC) Diverticulosis Hiatal hernia Hypertension STEFANI (obstructive sleep apnea) Surgical History Past Surgical History: Procedure Laterality Date ANKLE SURGERY Current Medications Current Outpatient Medications Medication Sig Dispense Refill acetaminophen (Tylenol) 325 MG suppository Insert into the rectum. aspirin 81 MG EC tablet Take 81 mg by mouth daily. atorvastatin (Lipitor) 20 MG tablet Take 20 mg by mouth daily. D-MANNOSE PO Take by mouth. dulaglutide (Trulicity) 3 MG/0.5ML solution pen-injector Inject 3 mg under the skin 1 (one) time per week. escitalopram (Lexapro) 10 MG tablet Take 10 mg by mouth daily. fenofibrate micronized (Lofibra) 67 MG capsule Take 67 mg by mouth daily (with breakfast). gabapentin (Neurontin) 400 MG capsule Take 400 mg by mouth 3 times daily. hydrALAZINE (Apresoline) 50 MG tablet Take by mouth. insulin glargine (Lantus) 100 UNIT/ML injection Inject 60 Units under the skin Nightly. levothyroxine (Synthroid, Levoxyl) 75 MCG tablet Take by mouth every morning (before breakfast). lisinopril 40 MG tablet Take 40 mg by mouth daily. metFORMIN (Glucophage) 500 MG tablet Take by mouth 2 times daily (with meals). metoprolol succinate XL (Toprol-XL) 100 MG 24 hr tablet Take by mouth. Do not crush or chew. rOPINIRole (Requip) 0.5 MG tablet Take 0.5 mg by mouth 3 times daily. senna-docusate (Roxanne-Colace) 8.6-50 MG tablet Take 1 tablet by mouth daily. No current facility-administered medications for this visit. No Known Allergies Review of Systems: Review of Systems All other systems reviewed and are negative. Physical Exam: BP (!) 151/82 (BP Location: Right arm, Patient Position: Sitting, BP Cuff Size: Large adult) Pulse 86 Physical Exam Abdominal: Treatment:Patient counseled on risks, benefits, and alternatives of treatment plan at length while in the office today. Patient states an understanding and willingness to proceed with plan. No orders of the defined types were placed in this encounter. Follow Up: Micheal Arnold MD, @[email or web address]@ Instructions Follow up for AFTER COLONOSCOPY. AVS - Outpatient (Automatic SnapShot taken 11/12/2022) Additional Documentation Vitals: BP 151/82 Important (BP Location: Right arm, Patient Position: Sitting, BP Cuff Size: Large adult) Pulse 86 SmartForms: [facility] SMARTFORM EXAM ROOM Encounter Info: Billing Info, History, Allergies, Detailed Report, Developmental Communications View All Conversations on this Encounter No questionnaires available. Orders Placed None Medication Changes None Medication List Visit Diagnoses Abdominal pain, left lower quadrant R10.32 Nausea and vomiting, unspecified vomiting type R11.2 Problem List [facility] Work Phone: 12-11-2022 History and physical note Images from the original note were not included. Office Visit 11/12/2022 [facility] Medical [facility] Micheal Silva MD General Surgery Abdominal pain, left lower quadrant +1 more Dx New Patient Reason for Visit Progress Notes Micheal Silva MD (Physician) General Surgery Expand All Collapse All HPI: Abdominal Pain: Patient complains of abdominal pain.Pain is located low abdomen. The pain is described as severe. Onset was 3 months ago. Symptoms have been gradually worsening since. Aggravatingfactors: eating. Associated symptoms: constipation, diarrhea, and nausea. The patient denies sweats. Thoroughly reviewed thepatient's medical history, family history, social history and review of systems with the patient today in the office. Please see medical record for pertinent positives. Medical History Past Medical History: Diagnosis Date Asthma Developmental delay Diabetes mellitus (HCC) Diverticulosis Hiatal hernia Hypertension STEFANI (obstructive sleep apnea) Surgical History Past Surgical History: Procedure Laterality Date ANKLE SURGERY Current Medications Current Outpatient Medications Medication Sig Dispense Refill acetaminophen (Tylenol) 325 MG suppository Insert into the rectum. aspirin 81 MG EC tablet Take 81 mg by mouth daily. atorvastatin (Lipitor) 20 MG tablet Take 20 mg by mouth daily. D-MANNOSE PO Take by mouth. dulaglutide (Trulicity) 3 MG/0.5ML solution pen-injector Inject 3 mg under the skin 1 (one) time per week. escitalopram (Lexapro) 10 MG tablet Take 10 mg by mouth daily. fenofibrate micronized (Lofibra) 67 MG capsule Take 67 mg by mouth daily (with breakfast). gabapentin (Neurontin) 400 MG capsule Take 400 mg by mouth 3 times daily. hydrALAZINE (Apresoline) 50 MG tablet Take by mouth. insulin glargine (Lantus) 100 UNIT/ML injection Inject 60 Units under the skin Nightly. levothyroxine (Synthroid, Levoxyl) 75 MCG tablet Take by mouth every morning (before breakfast). lisinopril 40 MG tablet Take 40 mg by mouth daily. metFORMIN (Glucophage) 500 MG tablet Take by mouth 2 times daily (with meals). metoprolol succinate XL (Toprol-XL) 100 MG 24 hr tablet Take by mouth. Do not crush or chew. rOPINIRole (Requip) 0.5 MG tablet Take 0.5 mg by mouth 3 times daily. senna-docusate (Roxanne-Colace) 8.6-50 MG tablet Take 1 tablet by mouth daily. No current facility-administered medications for this visit. No Known Allergies Review of Systems: Review of Systems All other systems reviewed and are negative. Physical Exam: BP (!) 151/82 (BP Location: Right arm, Patient Position: Sitting, BP Cuff Size: Large adult) Pulse 86 Physical Exam Abdominal: Treatment:Patient counseled on risks, benefits, and alternatives of treatment plan at length while in the office today. Patient states an understanding and willingness to proceed with plan. No orders of the defined types were placed in this encounter. Follow Up: Micheal Arnold MD, @[email or web address]@ Instructions Follow up for AFTER COLONOSCOPY. AVS - Outpatient (Automatic SnapShot taken 11/12/2022) Additional Documentation Vitals: BP 151/82 Important (BP Location: Right arm, Patient Position: Sitting, BP Cuff Size: Large adult) Pulse 86 SmartForms: [facility] SMARTFORM EXAM ROOM Encounter Info: Billing Info, History, Allergies, Detailed Report, Developmental Communications View All Conversations on this Encounter No questionnaires available. Orders Placed None Medication Changes None Medication List Visit Diagnoses Abdominal pain, left lower quadrant R10.32 Nausea and vomiting, unspecified vomiting type R11.2 Problem List Images from the original note were not included. Office Visit 11/12/2022 [facility] General Surgery Micheal Silva MD General Surgery Abdominal pain, left lower quadrant +1 more Dx New Patient Reason for Visit Progress Notes Micheal Silva MD (Physician) General Surgery Expand All Collapse All HPI: Abdominal Pain: Patient complains of abdominal pain.Pain is located low abdomen. The pain is described as severe. Onset was 3 months ago. Symptoms have been gradually worsening since. Aggravatingfactors: eating. Associated symptoms: constipation, diarrhea, and nausea. The patient denies sweats. Thoroughly reviewed thepatient's medical history, family history, social history and review of systems with the patient today in the office. Please see medical record for pertinent positives. Medical History Past Medical History: Diagnosis Date Asthma Developmental delay Diabetes mellitus (HCC) Diverticulosis Hiatal hernia Hypertension STEFANI (obstructive sleep apnea) Surgical History Past Surgical History: Procedure Laterality Date ANKLE SURGERY Current Medications Current Outpatient Medications Medication Sig Dispense Refill acetaminophen (Tylenol) 325 MG suppository Insert into the rectum. aspirin 81 MG EC tablet Take 81 mg by mouth daily. atorvastatin (Lipitor) 20 MG tablet Take 20 mg by mouth daily. D-MANNOSE PO Take by mouth. dulaglutide (Trulicity) 3 MG/0.5ML solution pen-injector Inject 3 mg under the skin 1 (one) time per week. escitalopram (Lexapro) 10 MG tablet Take 10 mg by mouth daily. fenofibrate micronized (Lofibra) 67 MG capsule Take 67 mg by mouth daily (with breakfast). gabapentin (Neurontin) 400 MG capsule Take 400 mg by mouth 3 times daily. hydrALAZINE (Apresoline) 50 MG tablet Take by mouth. insulin glargine (Lantus) 100 UNIT/ML injection Inject 60 Units under the skin Nightly. levothyroxine (Synthroid, Levoxyl) 75 MCG tablet Take by mouth every morning (before breakfast). lisinopril 40 MG tablet Take 40 mg by mouth daily. metFORMIN (Glucophage) 500 MG tablet Take by mouth 2 times daily (with meals). metoprolol succinate XL (Toprol-XL) 100 MG 24 hr tablet Take by mouth. Do not crush or chew. rOPINIRole (Requip) 0.5 MG tablet Take 0.5 mg by mouth 3 times daily. senna-docusate (Roxanne-Colace) 8.6-50 MG tablet Take 1 tablet by mouth daily. No current facility-administered medications for this visit. No Known Allergies Review of Systems: Review of Systems All other systems reviewed and are negative. Physical Exam: BP (!) 151/82 (BP Location: Right arm, Patient Position: Sitting, BP Cuff Size: Large adult) Pulse 86 Physical Exam Abdominal: Treatment:Patient counseled on risks, benefits, and alternatives of treatment plan at length while in the office today. Patient states an understanding and willingness to proceed with plan. No orders of the defined types were placed in this encounter. Follow Up: Micheal Arnold MD, MD [facility] Instructions Follow up for AFTER COLONOSCOPY. AVS - Outpatient (Automatic SnapShot taken 11/12/2022) Additional Documentation Vitals: BP 151/82 Important (BP Location: Right arm, Patient Position: Sitting, BP Cuff Size: Large adult) Pulse 86 SmartForms: [facility] SMARTFORM EXAM ROOM Encounter Info: Billing Info, History, Allergies, Detailed Report, Developmental Communications View All Conversations on this Encounter No questionnaires available. Orders Placed None Medication Changes None Medication List Visit Diagnoses Abdominal pain, left lower quadrant R10.32 Nausea and vomiting, unspecified vomiting type R11.2 Problem List documented in this encounter [facility] 12-11-2022 History and physical note Images from the original note were not included. Office Visit 11/12/2022 [facility] General Surgery Micheal Silva MD General Surgery Abdominal pain, left lower quadrant +1 more Dx New Patient Reason for Visit Progress Notes Micheal Silva MD (Physician) General Surgery Expand All Collapse All HPI: Abdominal Pain: Patient complains of abdominal pain.Pain is located low abdomen. The pain is described as severe. Onset was 3 months ago. Symptoms have been gradually worsening since. Aggravatingfactors: eating. Associated symptoms: constipation, diarrhea, and nausea. The patient denies sweats. Thoroughly reviewed thepatient's medical history, family history, social history and review of systems with the patient today in the office. Please see medical record for pertinent positives. Medical History Past Medical History: Diagnosis Date Asthma Developmental delay Diabetes mellitus (HCC) Diverticulosis Hiatal hernia Hypertension STEFANI (obstructive sleep apnea) Surgical History Past Surgical History: Procedure Laterality Date ANKLE SURGERY Current Medications Current Outpatient Medications Medication Sig Dispense Refill acetaminophen (Tylenol) 325 MG suppository Insert into the rectum. aspirin 81 MG EC tablet Take 81 mg by mouth daily. atorvastatin (Lipitor) 20 MG tablet Take 20 mg by mouth daily. D-MANNOSE PO Take by mouth. dulaglutide (Trulicity) 3 MG/0.5ML solution pen-injector Inject 3 mg under the skin 1 (one) time per week. escitalopram (Lexapro) 10 MG tablet Take 10 mg by mouth daily. fenofibrate micronized (Lofibra) 67 MG capsule Take 67 mg by mouth daily (with breakfast). gabapentin (Neurontin) 400 MG capsule Take 400 mg by mouth 3 times daily. hydrALAZINE (Apresoline) 50 MG tablet Take by mouth. insulin glargine (Lantus) 100 UNIT/ML injection Inject 60 Units under the skin Nightly. levothyroxine (Synthroid, Levoxyl) 75 MCG tablet Take by mouth every morning (before breakfast). lisinopril 40 MG tablet Take 40 mg by mouth daily. metFORMIN (Glucophage) 500 MG tablet Take by mouth 2 times daily (with meals). metoprolol succinate XL (Toprol-XL) 100 MG 24 hr tablet Take by mouth. Do not crush or chew. rOPINIRole (Requip) 0.5 MG tablet Take 0.5 mg by mouth 3 times daily. senna-docusate (Roxanne-Colace) 8.6-50 MG tablet Take 1 tablet by mouth daily. No current facility-administered medications for this visit. No Known Allergies Review of Systems: Review of Systems All other systems reviewed and are negative. Physical Exam: BP (!) 151/82 (BP Location: Right arm, Patient Position: Sitting, BP Cuff Size: Large adult) Pulse 86 Physical Exam Abdominal: Treatment:Patient counseled on risks, benefits, and alternatives of treatment plan at length while in the office today. Patient states an understanding and willingness to proceed with plan. No orders of the defined types were placed in this encounter. Follow Up: Micheal Arnold MD, @TODAYSDATE@ Instructions Follow up for AFTER COLONOSCOPY. AVS - Outpatient (Automatic SnapShot taken 11/12/2022) Additional Documentation Vitals: BP 151/82 Important (BP Location: Right arm, Patient Position: Sitting, BP Cuff Size: Large adult) Pulse 86 SmartForms: [facility] SMARTFORM EXAM ROOM Encounter Info: Billing Info, History, Allergies, Detailed Report, Developmental Communications View All Conversations on this Encounter No questionnaires available. Orders Placed None Medication Changes None Medication List Visit Diagnoses Abdominal pain, left lower quadrant R10.32 Nausea and vomiting, unspecified vomiting type R11.2 Problem List [facility] 11-12-2022 History of Presen t illness Narrative Images from the original note were not included. HPI: Abdominal Pain: Patient complains of abdominal pain.Pain is located low abdomen. The pain is described as severe. Onset was 3 months ago. Symptoms have been gradually worsening since. Aggravatingfactors: eating. Associated symptoms: constipation, diarrhea, and nausea. The patient denies sweats. Thoroughly reviewed thepatient's medical history, family history, social history and review of systems with the patient today in the office. Please see medical record for pertinent positives. Past Medical History: Diagnosis Date Asthma Developmental delay Diabetes mellitus (HCC) Diverticulosis Hiatal hernia Hypertension STEFANI (obstructive sleep apnea) Past Surgical History: Procedure Laterality Date ANKLE SURGERY Current Outpatient Medications Medication Sig Dispense Refill acetaminophen (Tylenol) 325 MG suppository Insert into the rectum. aspirin 81 MG EC tablet Take 81 mg by mouth daily. atorvastatin (Lipitor) 20 MG tablet Take 20 mg by mouth daily. D-MANNOSE PO Take by mouth. dulaglutide (Trulicity) 3 MG/0.5ML solution pen-injector Inject 3 mg under the skin 1 (one) time per week. escitalopram (Lexapro) 10 MG tablet Take 10 mg by mouth daily. fenofibrate micronized (Lofibra) 67 MG capsule Take 67 mg by mouth daily (with breakfast). gabapentin (Neurontin) 400 MG capsule Take 400 mg by mouth 3 times daily. hydrALAZINE (Apresoline) 50 MG tablet Take by mouth. insulin glargine (Lantus) 100 UNIT/ML injection Inject 60 Units under the skin Nightly. levothyroxine (Synthroid, Levoxyl) 75 MCG tablet Take by mouth every morning (before breakfast). lisinopril 40 MG tablet Take 40 mg by mouth daily. metFORMIN (Glucophage) 500 MG tablet Take by mouth 2 times daily (with meals). metoprolol succinate XL (Toprol-XL) 100 MG 24 hr tablet Take by mouth. Do not crush or chew. rOPINIRole (Requip) 0.5 MG tablet Take 0.5 mg by mouth 3 times daily. senna-docusate (Roxanne-Colace) 8.6-50 MG tablet Take 1 tablet by mouth daily. No current facility-administered medications for this visit. No Known Allergies Review of Systems: Review of Systems All other systems reviewed and are negative. Physical Exam: BP (!) 151/82 (BP Location: Right arm, Patient Position: Sitting, BP Cuff Size: Large adult) Pulse 86 Physical Exam Abdominal: Treatment:Patient counseled on risks, benefits, and alternatives of treatment plan at length while in the office today. Patient states an understanding and willingness to proceed with plan. No orders of the defined types were placed in this encounter. Follow Up: Micheal Arnold MD, @TODAYSDATE@ documented in this encounter [facility] No assessment inform ation available [facility] Work Phone: Evaluation note Diagnosis Abdominal pain, left lower quadrant- Primary Nausea and vomiting, unspecified vomiting type [facility] Abdominal pain, left lower quadrant- Primary [facility] Encounter for screening mammogram for malignant neoplasm of breast- Primary documented in this encounter [facility] note* Diagnosis Shortness of breath- Primary Shortness of breath Chronic kidney disease, unspecified CKD stage Asymptomatic hypertension Chronic kidney disease Chronic kidney disease, unspecified documented in this encounter [facility] note* Diagnosis Encounter for screening mammogram for malignant neoplasm of breast documented in this encounter [facility] note* Diagnosis Encounter for screening mammogram for malignant neoplasm of breast documented in this encounter [facility] for referral (narrative)No reason for referral information [facility] Work Phone: Summary Purpose Family History No Family History Records FoundNo Family History Records FoundNo Family History Records FoundNo Family History Records FoundNo Family History Records FoundNo Family History Records FoundNo Family History Records FoundNo Family History Records Found Advance Directives No Advanced Directives Records FoundDocuments on File Type Date Recorded 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 ACP-Advance Directive ACP-Power of Butcher Latest Code Status on File Code Status Date Activated Date Inactivated Comments Full Code 07/17/2018 3:13 AM 07/18/2018 1:02 PM Full Code 12/16/2017 8:42 PM 12/18/2017 8:54 PM Full Code 12/10/2017 7:30 PM 12/13/2017 9:20 PM Chief Complaint and Reason for Visit Chief Complaint SKILLED NURSING LAB WOR K Chief Complaint SKILLED NURSING LABWORK SKILLED NURSING LAB WORK Chief Complaint SKILLED NURSING LAB WOR K SKILLED NURSING LABWORK Chief Complaint SKILLED NURSING LABWORK LABWORK Chief Complaint LABWORK SKILLED NURSING LABWORK Chief Complaint SKILLED NURSING LABWORK SKILLED NURSING LAB WORK LABWORK Chief Complaint LABWORK LABWORK SKILLED NURSING LABWORK LABWORK Chief Complaint SKILLED NURSING LABWORK LABWORK SKILLED NURSING LABWORK SKILLED NURSING LAB WORK Chief Complaint Admit Date LABWORK April 10, 2024 5 :00am LABWORK April 19, 2024 5 :00am LABWORK April 24, 2024 5 :00am SKILLED NURSING LAB WORK April 26, 2024 5:00am SKILLED NURSING LAB WORK May 03 4:00am SKILLED NURSING LAB WORK June 23, 2024 5: 00am LABOWRK July 17, 2024 5:0 0am Additional Source Comments INFORMATION SOURCE (unrecogn ized section and content) DATE CREATED AUTHOR 06/28/2018 Olivia Mccormick [facility] DATE CREATED AUTHOR MANOJ JARRELL 07/03/2018 [facility] DATE CREATED AUTHOR AUTHOR'S ORGANIZ ATION 07/21/2018 [facility] DATE CREATED AUTHOR AUTHOR'S ORGANIZ ATION 07/30/2018 [facility] DATE CREATED AUTHOR AUTHOR'S ORGANIZ ATION 10/30/2018 [facility] DATE CREATED AUTHOR AUTHOR'S ORGANIZ ATION 05/22/2021 [facility] DATE CREATED AUTHOR AUTHOR'S ORGANIZ ATION 07/29/2024 [facility] DATE CREATED AUTHOR AUTHOR'S ORGANIZ ATION 09/01/2024 [facility] Care Teams (unrecognized sec tion and content) Team Status: Inactive Member Role Status Dates Lex HERNANDEZ Attending Provider Active Team Status: Active Member Role Status Dates Lex HERNANDEZ Attending Provider, Referring Provid er Active Team Status: Inactive Member Role Status Dates Lex HERNANDEZ Attending Provider, Referring Provid er Active Team Status: Active Member Role Status Dates Lex HERNANDEZ Attending Provider Active Residential Air Sealing Technician Relationship Specialty Start Date End Date Kristel Nunes MD PCP - General 09/20/17 Residential Air Sealing Technician Relationship Specialty Start Date End Date Lex Roca [address] [place] [address] [address] [place] [address] PCP - General 05/20/21 Residential Air Sealing Technician Relationship Specialty Start Date End Date Lex Roca [address] [place] [address] [address] [place] [address] PCP - General 05/20/21 Residential Air Sealing Technician Relationship Specialty Start Date End Date Lex Roca MD [address] [place] [address] [address] [place] [address] PCP - General 05/20/21 Residential Air Sealing Technician Relationship Specialty Start Date End Date Lex Roca MD [address] [place] [address] [address] [place] [address] PCP - General 05/20/21 Residential Air Sealing Technician Relationship Specialty Start Date End Date Lex Roca [address] [place] [address] [address] [place] [address] PCP - General 05/20/21 Team Status: Inactive Member Role Status Dates Lex HERNANDEZ Attending Provider Active Star t: April 10, 2024 End: April 10, 2024 Team Status: Inactive Member Role Status Dates Lex HERNANDEZ Attending Provider Active Star t: April 19, 2024 End: April 19, 2024 Team Status: Active Member Role Status Dates Lex HERNANDEZ Attending Provider Active Star t: April 24, 2024 Team Status: Active Member Role Status Dates Lex HERNANDEZ Attending Provider Active Star t: April 26, 2024 Team Status: Active Member Role Status Dates Lex HERNANDEZ Attending Provider Active Star t: May 03, 2024 Lex HERNANDEZ Referring Provider Active Star t: May 03, 2024 Team Status: Inactive Member Role Status Dates Lex HERNANDEZ Attending Provider Active Star t: June 23, 2024 End: June 23, 2024 Team Status: Active Member Role Status Dates Lex HERNANDEZ Attending Provider Active Star t: July 04, 2024 Team Status: Inactive Member Role Status Dates Lex HERNANDEZ Attending Provider Active Star t: July 17, 2024 End: July 17, 2024 Team Status: Active Member Role Status Dates Lex HERNANDEZ Attending Provider Active Star t: July 19, 2024 Goals (unrecognized section and content) Goals may be documented in a n alternate sectionGoals may be documented in an alternate sectionGoals may be documented in an alternate sectionGoals may be documented in an alternate sectionGoals may be documented in an alternate sectionGoals may be documented in an alternate sectionGoals may be documented in an alternate sectionGoals may be documented in an alternate sectionGoals may be documented in an alternate sectionGoals may be documented in an alternate sectionGoals may be documented in an alternate sectionGoals may be documented in an alternate sectionGoals may be documented in an alternate sectionGoals may be documented in an alternate section Reason for Visit (unrecogniz ed section and content) Reason Comments New Patient GI symptoms Specialty Diagnoses / Procedures Referred By Shonna t Referred To Contact Diagnoses Left lower quadrant pain Nausea with vomiting, unspecified Left lower quadrant pain [R10.32] Nausea with vomiting, unspecified [R11.2] Procedures DC ESOPHAGOGASTRODUODENOSCOPY TRANSORAL DIAGNOSTIC DC COLONOSCOPY FLX DX W/COLLJ SPEC WHEN PFRMD EGD DIAGNOSTIC COLONOSCOPY Micheal Arnold MD [address] [facility], [address] [place] [address] [address] [facility] [address] [place] [address] Referral ID Status Reason Start Date Expiration Date Visits Re quested Visits Authorized [id number] 1 Reason Comments Shortness of Breath Pt brought in from [facility] facility with c/o shortness of breath. Patient has a known history of COPD. Scheduled Active and Recently Administ ered Medications (unrecognized section and content) Medication Order 12/09/2022 12/10/2022 12/11/2022 sodium chloride 0.9% (NS) flush 10 mL 10 mL, IntraVENous, Every 12 hours scheduled (2 times per day), First dose on Wed12/11/22 at 2100, Preprocedure PRN Medication Order 12/09/2022 12/10/2022 12/11/2022 sodium chloride 0.9 % infusion 5-250 mL/hr, IntraVENous, PRN, if patient receiving piggyback infusions and maintenance fluids are not ordered OR KVO fluids to protect IV site / prevent frequent line interruptions/ long duration, Starting on Wed12/11/22 at 1321, Preprocedure, For piggyback infusion, administer at same rate as piggyback for a total of 25 mL. Enter 25 mL into dose field and piggyback rate into rate field of order. If piggyback is infusing at a rate less than 100 mL/hr, enter 25 mL into dose field and 100 mL/hr into rate field of order. For KVO fluids, enter rate of 20 mL/hr or less into rate field of order. sodium chloride 0.9% (NS) flush 10 mL 10 mL, IntraVENous, PRN, line care, Starting on Wed12/11/22 at 1321, Preprocedure, After every IV line use Scheduled Medication Order 09/05/2023 09/06/2023 09/07/2023 ipratropium-albuterol (Duo-Neb) 0.5-2.5 mg/3 mL nebulizer solution 3 mL (COMPLETED) 3 mL, Nebulization, Once, On Wed09/07/23 at 1800, For 1 dose 1820 (Given - Provid er: Cinthya Roth RCP) methylPREDNISolone sodium succinate (PF) (SOLU-Medrol) injection 125 mg (COMPLETED) 125 mg, IntraVENous, Once, On Wed09/07/23 at 1800, For 1 dose 1825 (Given - Provid er: Yael Goodwin RN) morphine injection 4 mg (COMPLETED) 4 mg, IntraVENous, Once, On Wed09/07/23 at 2154, For 1 dose, If oral and IV narcotics ordered, use oral first and only use IV if oral is ineffective or cannot take oral. Do Not give oral and IV within 1 hour of each other unless specifically ordered. 2156 (Given - Provid er: Bethanie Villalobos RN) ondansetron (Zofran) injection 4 mg (COMPLETED) 4 mg, IntraVENous, Once, On Wed09/07/23 at 2154, For 1 dose 2156 (Given - Provid er: Bethanie Villalobos RN) sodium chloride 0.9 % bolus 1,000 mL (COMPLETED) 1,000 mL, IntraVENous, at 1,000 mL/hr, Administer over 1 Hours, Once, On Wed09/07/23 at 2135, For 1 dose 2139 (New Bag - Prov ider: Bethanie Villalobos RN)2304 (Stopped - Provider: Bethanie Villalobos RN) FOR RECORDS PERTAINING TO PATIENTS WHO ARE OR HAVE BEEN ENROLLED IN A CHEMICAL DEPENDENCY/SUBSTANCEABUSE PROGRAM, SOME INFORMATION MAY BE OMITTED. This clinical summary was aggregated from multiple sources. Caution should be exercised in using it in the provision of clinical care. This summary normalizes information from multiple sources, and as a consequence, information in this document may materially change the coding, format and clinical context of patient data. In addition, data may be omitted in some cases. CLINICAL DECISIONS SHOULD BE BASED ON THE PRIMARY CLINICAL RECORDS. [employer] provides no warranty or guarantee of the accuracy or completeness of information in this document.
[2024-09-20 09:21] LABS: Hematocrit 30.0 % (37-47); Hemoglobin 9.9 g/dL (12.0-15.0); Mean Corp Hgb Conc 33.0 g/dL (32-36); Mean Corpuscular Volume 89.3 fL (81-99); Mean Platelet Vol. 10.4 fl (6.2-12.0); Platelet Count 289 K/mm3 (150-450); RBC Distribution Width CV 12.6 % (11.6-14.6); RBC Distribution Width SD 41.3 fl (35.1-43.9); Red Blood Count 3.36 M/mm3 (4.2-5.4); White Blood Count 6.9 K/mm3 (4.4-11.0)
[2024-09-20 09:47] LABS: Anion Gap 10 (5-15); BUN 44 mg/dL (4-19); BUN/Creat Ratio 20.7 RATIO (10-20); Calcium,Total 8.9 mg/dL (7.6-11.0); Carbon Dioxide 23.0 mmol/L (21.0-32.0); Chloride 105 mmol/L (98-108); Glucose 413 mg/dL (70-99); Potassium 5.2 mmol/L (3.3-5.1)
== END ==
LOC: OLS.ACW100 05:00
PROVIDERS: Visit Provider Family Medicine
DX: E11.21 Type 2 diabetes mellitus with diabetic nephropathy (principal); K57.90 Diverticulosis of intestine, part unspecified, without perforation or abscess without bleeding; M62.81 Muscle weakness (generalized); R27.9 Unspecified lack of coordination
CPT/HCPCS: 36415; 80048; 83036; 85027

== ENCOUNTER → 2024-09-25 | Outpatient (REF) | payer MEDICAID, SELFPAY ==
--- OUTSIDE RECORDS SUMMARY | 2024-09-25 03:39 | XMS RPT_ITS | CCD ---
Author Organization [facility] Care Team Providers Care Technical Service Representative Name Role Phone IMCA Primary Care Unavailable ANUPAM WILLIS Admitting Unavailable KEITH ALMARZA Consulting Unavailab ROGERIO Mckeon Attending Unavailable IMSHAHRZAD Primary Care Unavailable BHAVANA DEWITT Attending Unavailable ANUPAM WILLIS Admitting UnavailROGERIO Bah Attending Unavailable KEITH ALMARAZ Consulting Unavailab BHAVANA Tam Attending Unavaila Kristel Skelton Referring Unavailable Kristel Nunes Primary Care Unavailable Familia Mckeon Attending Unavailable CORY LA Admitting Unavailable CORY LA Attending Unavailable KRISTEL NUNES Primary Care Unavailable RKUPA STEINBERG Admitting Unavailable KRUPA STEINBERG Attending Unavailable KRISTEL NUNES Primary Care Unavailable HANANE MOODY Admitting Unavailable HANANE MOODY Attending Unavailable IESHA NUNES Primary Care Unavailable JERAMY JOHNSON Admitting Unavailable JERAMY JOHNSON Attending Unavailable IESHA NUNES Primary Care Unavailable Kristel Nunes MD Primary Care Provider Lex Roca Primary Care Provider Lex Roca MD Primary Care Provider [phone] Lex Roca Primary Care Provider LEX ROCA Primary Care Unavailable JERAMY ALELN Attending Unavailable LEX ROCA Primary Care Unavailable GRZEGORZ GUILLEN Attending Unavailable LEX ROCA Primary Care Unavailable LUDY, OMI Admitting Unavailable JERAMY SY Attending Unavailable LEX ROCA Primary Care Unavailable Marcel CHEN Referring Unavailable Marcel CHEN Attending Unavailable LEX ROCA Primary Care Unavailable Chanelle HERNANDEZ, Lex Attending Provider UnavailSanjuana HERNANDEZ, Lex Referring Provider Unavailcarissa e Chanelle HERNANDEZ, Lex Attending Unavailable Chanelle OLS, Lex Attending Unavailable Chanelle OLS, Lex Attending Unavailable Chanelle OLS, Lex Referring Unavailable Chanelle OLS, Lex Attending Unavailable Chanelle OLS, Lex Attending Unavailable Chanelle OLS, Lex Attending Unavailable Chanelle OLS, Lex Attending Unavailable Chanelle OLS, Lex Attending Unavailable Chanelle OLS, Lex Attending Unavailable Chanelle OLS, Lex Referring Unavailable Chanelle OLS, Lex Attending Unavailable Chanelle HERNANDEZ, Lex Referring Unavailable Chanelle HERNANDEZ, Lex Attending Unavailable Chanelle OLS, Lex Attending Unavailable Chanelle OLS, Lex Attending Unavailable Chanelle OLS, Lex Referring Unavailable Chanelle OLS, Lex Attending Unavailable Chanelle OLS, Lex Attending Unavailable Chanelle OLS, Lex Referring Unavailable Chanelle OLS, Lex Attending Unavailable Chanelle OLS, Lex Attending Unavailable Chanelle OLS, Lex Attending Unavailable Chanelle OLS, Lex Attending Unavailable Chanelle OLS, Lex Attending Unavailable Allergies Allergy Classification Reported Allergen(s) Allergy Type Date of Onset Reaction(s) Facility Penicillins (antibiotic) (2 sources) Penicillins Drug Allergy 8 Unknown [facility] (3 sources) Penicillin; Translations: [PENICILLIN] Drug Allergy 8 [facility] Repository (6 sources) Penicillins Propensity to adverse reactions to drug 8 Unknown [facility] Medications Current Medications Medication Drug Class(es) [...] Active docusate sodium 50 mg / sennosides, custodial 8.6 mg oral tablet (8 sources) take [...] fl ush 10 mL Start: 12-11-2022 End: 09-22-2023 sodium chloride 0.9 % infusi on Start: 12-11-2022 End: 12-11-2022 sodium chloride 0.9% (NS) fl ush 10 mL Problems Active Problems Problem Classification [...] disease (13 sources) Atherosclerotic heart disease of [place] coronary artery without angina pectoris; Translations: [Coronary [...] Onset: 07-13-2024 Episodic Other aftercare (3 sources) material hauler (current) use of aspirin; Translations: [correction (current) use of aspirin] Onset: 07-17-2018 Episodic Other aftercare (1 source) Other hand cloth folder (current) drug therapy; Translations: [[facility] CURRENT DRUG THERAPY] Onset: 08-17-2018 Episodic Other aftercare (3 sources) correction (current) use of oral hypoglycemic drugs; Translations: [correction (current) use of oral hypoglycemic drugs] Onset: [...] Auto (Unsp spec) [#/Vol] 1.65 10*3/uL 0.83-4.51 [facility] Absolute neutrophil countOrd ered By: Lex Roca on 07-19-2024 Neutrophils (Bld) [#/Vol] 3.7 10*3/uL 2.0-7.7 [facility] Anion gap in Serum or Plasma Ordered By: Lex Roca on 07-19-2024 Anion gap [Moles/Vol] 10 mmol/L 5-15 [facility] Automated lymphocyte count a s percentage of total leukocytesOrdered By: Lex Roca on 07-19-2024 Lymphocytes/100 WBC Auto (Unsp spec) 25.0 % 19-41 [facility] BUN/creatinine ratioOrdered By: Lex Roca on 07-19-2024 Urea nitrogen/Creatinine [Mass ratio] 26.5 mg/mg High 10-20 [facility] Basophil percentageOrdered B y: Lex Roca on 07-19-2024 Basophils/100 WBC (Bld) 1.1 % High 0-1 [facility] Bilirubin Test strip Ql (U)O rdered By: Lex Roca on 07-19-2024 Bilirubin Ql (U) Negative Negative [facility] Carbon dioxide, total [Moles /volume] in Central venous bloodOrdered By: Lex Roca on 07-19-2024 CO2 [Moles/Vol] 22.3 mmol/L 21.0-32.0 [facility] Chloride assayOrdered By: Sony Roca on 07-19-2024 Chloride [Moles/Vol] 107 mmol/L 98-108 [facility] Eosinophil percentageOrdered By: Lex Roca on 07-19-2024 Eosinophils/100 WBC (Bld) 4.7 % 0-5 [facility] Erythrocyte distribution wid th ratioOrdered By: Lex Roca on 07-19-2024 Erythrocyte distribution width (RBC) [Ratio] 12.6 % 11.6-14.6 [facility] Erythrocyte distribution wid th standard deviationOrdered By: Lex Roca on 07-19-2024 Erythrocyte distribution width (RBC) [Ratio] 41.5 fl 35.1-43.9 [facility] Glomerular filtration rate ( GFR) estimation/1.73 sq m using serum, plasma, or whole bOrdered By: Lex Roca on 07-19-2024 GFR/1.73 sq M.predicted among non-blacks MDRD (S/P/Bld) [Vol rate/Area] 31 mL/min/{1.73_m2} Low >60 [facility] Comment on above: mL/min/1.73m2 CKD-EP I Creatinine Equation (2020) Hematocrit Auto (Bld) [Volum e fraction]Ordered By: Lex Roca on 07-19-2024 Hematocrit (Bld) [Volume fraction] 32.5 % Low 37-47 [facility] Hemoglobin A1c percentageOrd ered By: Lex Roca on 07-19-2024 HbA1c (Bld) [Mass fraction] 7.6 % High <5.7 [facility] Comment on above: Normal < 5.7 % Predi abetic 5.7 - 6.4 % Diabetic >or= 6.5 % Please note range changes. Hemoglobin measurementOrdere d By: Lex Roca on 07-19-2024 Hemoglobin (Bld) [Mass/Vol] 10.4 g/dL Low 12.0-15.0 [facility] Immature granulocytes/100 WB C Auto (Bld)Ordered By: Lex Roca on 07-19-2024 Immature granulocytes/100 WBC (Bld) 0.800 % 0.0-0.9 [facility] Comment on above: IG% - Immature Granu locytes (promyelocytes, myelocytes and metamyelocytes) > 1% indicates that a LEFT SHIFT is Present. Ketones Test strip Ql (U)Ord ered By: Lex Roca on 07-19-2024 Ketones Ql (U) Negative Negative [facility] MCV (mean corpuscular volume ) determinationOrdered By: Lex Roca on 07-19-2024 MCV (RBC) [Entitic vol] 91.0 fL 81-99 [facility] Mean corpuscular hemoglobin (MCH) determinationOrdered By: Lex Roca on 07-19-2024 MCH (RBC) [Entitic mass] 29.1 pg 27.0-32.0 [facility] Mean corpuscular hemoglobin concentration (MCHC) determinationOrdered By: Lex Roca on 07-19-2024 MCHC (RBC) [Mass/Vol] 32.0 g/dL 32-36 [facility] Mean platelet volume determi nationOrdered By: Lex Roca on 07-19-2024 Platelet mean volume (Bld) [Entitic vol] 9.9 fL 6.2-12.0 [facility] Monocyte percentageOrdered B y: Lex Roca on 07-19-2024 Monocytes/100 WBC (Bld) 12.1 % High 0-10 [facility] Neutrophil percentageOrdered By: Lex Roca on 07-19-2024 Neutrophils/100 WBC (Bld) 56.3 % 47-70 [facility] Nitrite Test strip Ql (U)Ord ered By: Lex Roca on 07-19-2024 Nitrite Ql (U) Negative Negative [facility] Nucleated red blood cell per centageOrdered By: Lex Roca on 07-19-2024 Nucleated RBC/100 WBC (Bld) [Ratio] 0 % 0-5 [facility] Platelet countOrdered By: Sony Roca on 07-19-2024 Platelets (Bld) [#/Vol] 288 10*3/uL 150-450 [facility] Potassium measurement (mass/ volume)Ordered By: Lex Roca on 07-19-2024 Potassium (Unsp spec) [Mass/Vol] 4.9 mmol/L 3.3-5.1 [facility] Protein Test strip Ql (U)Ord ered By: Lex Roca on 07-19-2024 Protein Ql (U) TNP [facility] Comment on above: Test not performed RBC Auto (Bld) [#/Vol]Ordere d By: Lex Roca on 07-19-2024 RBC (Bld) [#/Vol] 3.57 10*6/uL Low 4.2-5.[address] [facility] Serum creatinine measurement (mass/volume)Ordered By: Lex Roca on 07-19-2024 Creatinine [Mass/Vol] 1.83 mg/dL High 0.70-1.20 [facility] Serum glucose measurement (m ass/volume)Ordered By: Lex Roca on 07-19-2024 Glucose [Mass/Vol] 227 mg/dL High 70-99 [facility] Serum or plasma albumin aba urement (mass/volume)Ordered By: Lex Roac on 07-19-2024 Albumin [Mass/Vol] 3.3 g/dL Low 3.4-4.8 [facility] Serum or plasma calcium aba urement (mass/volume)Ordered By: Lex Roca on 07-19-2024 Calcium [Mass/Vol] 8.8 mg/dL 7.6-11.0 [facility] Serum or plasma urea nitroge n measurement (mass/volume)Ordered By: Lex Roca on 07-19-2024 Urea nitrogen [Mass/Vol] 49 mg/dL High 4-19 [facility] Sodium levelOrdered By: Iban Roca on 07-19-2024 Sodium [Moles/Vol] 139 mmol/L 133-145 [facility] Urine clarityOrdered By: Tony Roca on 07-19-2024 Clarity (U) Clear Clear [facility] Urine color determinationOrd ered By: Lex Roca on 07-19-2024 Color (U) Yellow Yellow [facility] Urine cultureOrdered By: Tony Roca on 07-19-2024 Bacteria identified Cx Nom (U) Proteus mirabilis Abnormal [facility] Urine glucose detectionOrder ed By: Lex Roca on 07-19-2024 Glucose Ql (U) 250 mg/dl High Normal [facility] Urine leukocyte esterase det ection by dipstickOrdered By: Lex Roca on 07-19-2024 Leukocyte esterase Test strip Ql (U) 25 /ul High Negative [facility] Urine pHOrdered By: Lex cooper on 07-19-2024 pH (U) 6.0 [pH] 5.0 - 8.0 [facility] Urine specific gravity measu rementOrdered By: Lex Roca on 07-19-2024 Specific gravity (U) [Rel density] 1.020 1.002-1.030 [facility] Urine urobilinogen measureme ntOrdered By: Lex Roca on 07-19-2024 Urobilinogen Ql (U) Normal mg/dl Normal [facility] White blood cell (WBC) count Ordered By: Lex Roca on 04-30-2025 WBC (Bld) [#/Vol] 6.6 10*3/uL 4.4-11.0 [facility] Anion gap in Serum or Plasma Ordered By: Lex Roca on 07-17-2024 Anion gap [Moles/Vol] 10 mmol/L 5-15 [facility] BUN/creatinine ratioOrdered By: Lex Roca on 07-17-2024 Urea nitrogen/Creatinine [Mass ratio] 28.0 mg/mg High 10-20 [facility] Carbon dioxide, total [Moles /volume] in Central venous bloodOrdered By: Lex Roca on 07-17-2024 CO2 [Moles/Vol] 23.1 mmol/L 21.0-32.0 [facility] Chloride assayOrdered By: Sony Roca on 07-17-2024 Chloride [Moles/Vol] 107 mmol/L 98-108 [facility] Erythrocyte distribution wid th ratioOrdered By: Lex Roca on 07-17-2024 Erythrocyte distribution width (RBC) [Ratio] 12.5 % 11.6-14.6 [facility] Erythrocyte distribution wid th standard deviationOrdered By: Lex Roca on 07-17-2024 Erythrocyte distribution width (RBC) [Ratio] 41.5 fl 35.1-43.9 [facility] Glomerular filtration rate ( GFR) estimation/1.73 sq m using serum, plasma, or whole bOrdered By: Lex Roca on 07-17-2024 GFR/1.73 sq M.predicted among non-blacks MDRD (S/P/Bld) [Vol rate/Area] 30 mL/min/{1.73_m2} Low >60 [facility] Comment on above: mL/min/1.73m2 CKD-EP I Creatinine Equation (2020) Hematocrit Auto (Bld) [Volum e fraction]Ordered By: Lex Roca on 07-17-2024 Hematocrit (Bld) [Volume fraction] 33.8 % Low 37-47 [facility] Hemoglobin A1c percentageOrd ered By: Lex Roca on 07-17-2024 HbA1c (Bld) [Mass fraction] 7.5 % High <5.7 [facility] Comment on above: Normal < 5.7 % Predi abetic 5.7 - 6.4 % Diabetic >or= 6.5 % Please note range changes. Hemoglobin measurementOrdere d By: Lex Roca on 07-17-2024 Hemoglobin (Bld) [Mass/Vol] 10.9 g/dL Low 12.0-15.0 [facility] MCV (mean corpuscular volume ) determinationOrdered By: Lex Roca on 07-17-2024 MCV (RBC) [Entitic vol] 91.6 fL 81-99 [facility] Mean corpuscular hemoglobin (MCH) determinationOrdered By: Lex Roca on 07-17-2024 MCH (RBC) [Entitic mass] 29.5 pg 27.0-32.0 [facility] Mean corpuscular hemoglobin concentration (MCHC) determinationOrdered By: Lex Roca on 07-17-2024 MCHC (RBC) [Mass/Vol] 32.2 g/dL 32-36 [facility] Mean platelet volume determi nationOrdered By: Lex Roca on 07-17-2024 Platelet mean volume (Bld) [Entitic vol] 10.0 fL 6.2-12.0 [facility] Platelet countOrdered By: Sony Roca on 07-17-2024 Platelets (Bld) [#/Vol] 286 10*3/uL 150-450 [facility] Potassium measurement (mass/ volume)Ordered By: Lex Roca on 07-17-2024 Potassium (Unsp spec) [Mass/Vol] 5.1 mmol/L 3.3-5.1 [facility] RBC Auto (Bld) [#/Vol]Ordere d By: Lex Roca on 07-17-2024 RBC (Bld) [#/Vol] 3.69 10*6/uL Low 4.2-5.[address] [facility] Serum creatinine measurement (mass/volume)Ordered By: Lex Roca on 07-17-2024 Creatinine [Mass/Vol] 1.87 mg/dL High 0.70-1.20 [facility] Serum glucose measurement (m ass/volume)Ordered By: Lex Roca on 07-17-2024 Glucose [Mass/Vol] 254 mg/dL High 70-99 [facility] Serum or plasma calcium aba urement (mass/volume)Ordered By: Lex Roca on 07-17-2024 Calcium [Mass/Vol] 8.8 mg/dL 7.6-11.0 [facility] Serum or plasma urea nitroge n measurement (mass/volume)Ordered By: Lex Roca on 07-17-2024 Urea nitrogen [Mass/Vol] 52 mg/dL High 4-19 [facility] Sodium levelOrdered By: Iban Roca on 07-17-2024 Sodium [Moles/Vol] 140 mmol/L 133-145 [facility] White blood cell (WBC) count Ordered By: Lex Roca on 07-17-2024 WBC (Bld) [#/Vol] 6.7 10*3/uL 4.4-11.0 [facility] BETA HYDROXYBUTYRATEon 07-13 BETA HYDROXYBUTYRATE 0.6 mg/dL Normal <=2.8 [facility] Comment on above: Performed By: #### L [id number] ####Telephone Lineman: LAURA BAUTISTA ([phone])[facility] SAM [employer] (SWRLAB)[address] [place] [address] BLOOD GAS, VENOUS (SWR AND S HC)on 07-13-2024 AMOUNT OF OXYGEN Normal [facility] Comment on above: Performed By: #### L [id number] #### Telephone Lineman: LAURA BAUTISTA ([phone]) [facility] SAM [employer] (SWRLAB) [address] [place] [address] BASE EXCESS (MMOL/L) IN VENOUS BLOOD -1.0 mmol/L Normal -3.0-3.0 [facility] Comment on above: Performed By: #### L [id number] #### Telephone Lineman: LAURA BAUTISTA ([phone]) [facility] SAM [employer] (SWRLAB) [address] [place] [address] CARBON DIOXIDE (MM HG) IN VENOUS BLOOD 43 mm(Hg) Normal 40-55 [facility] Comment on above: Performed By: #### L [id number] #### Telephone Lineman: LAURA BAUTISTA ([phone]) [facility] (SWRLAB) [address] [place] [address] [place] CO2 [Moles/Vol] 26.0 mmol/L Normal 24.0-28.0 [facility] Comment on above: Performed By: #### L [id number] #### Telephone Lineman: LAURA BAUTISTA ([phone]) [facility] (SWRLAB) [address] [place] [address] HCO3 (Bld) [Moles/Vol] 24.7 mmol/L Normal 23.0-27.0 [facility] Comment on above: Performed By: #### L [id number] #### Telephone Lineman: LAURA BAUTISTA ([phone]) [facility] (SWRLAB) [address] [place] [address] OXYGEN (MM HG) IN VENOUS BLOOD 51 mm(Hg) Normal [facility] Comment on above: Performed By: #### L [id number] #### Telephone Lineman: LAURA BAUTISTA ([phone]) [facility] (SWRLAB) [address] [place] [address] OXYGEN SATURATION (%) IN VENOUS BLOOD 85.0 % High 60.0-80.0 [facility] Comment on above: Performed By: #### L [id number] #### Telephone Lineman: LAURA BAUTISTA ([phone]) [facility] (SWRLAB) [address] [place] [address] pH (Bld) 7.373 [pH] Normal 7.310-7.410 [facility] Comment on above: Performed By: #### L [id number] #### Telephone Lineman: LAURA BAUTISTA ([phone]) [facility] (SWRLAB) [address] [place] [address] SOURCE OF OXYGEN None (Room Air) Normal [facility] Comment on above: Performed By: #### L [id number] #### Telephone Lineman: LAURA BAUTISTA ([phone]) [facility] [employer] (SWRLAB) [address] [place] [address] CBC WITH AUTO DIFFERENTIALon 07-13-2024 Basophils (Bld) [#/Vol] 0.0 10*3/uL Normal 0.0-0.2 [facility] Comment on above: Performed By: #### L [id number] ####Telephone Lineman: LAUAR BAUTISTA ([phone])[facility] [employer] (SWRL[employer])[address] [place] [address] Basophils/100 WBC (Bld) 0.5 % Normal 0.0-2.0 [facility] Comment on above: Performed By: #### L [id number] ####Telephone Lineman: LAURA BAUTISTA ([phone])[facility] [employer] (SWRLAB)[address] [place] [address] [place] Eosinophils (Bld) [#/Vol] 0.5 10*3/uL Normal 0.0-0.5 [facility] Comment on above: Performed By: #### L [id number] ####Telephone Lineman: LAURA BAUTISTA ([phone])[facility] (SWRL[employer])[address] [place] [address] Eosinophils/100 WBC (Bld) 6.3 % High 0.0-6.0 [facility] Comment on above: Performed By: #### L [id number] ####Telephone Lineman: LAURA BAUTISTA ([phone])[facility] [employer] (SWRL[employer])[address] [place] [address] Erythrocyte distribution width (RBC) [Ratio] 12.7 % Normal 11.5-15.0 [facility] Comment on above: Performed By: #### L [id number] ####Telephone Lineman: LAURA BAUTISTA ([phone])[facility] [employer] (SWRL[employer])[address] [place] [address] Hematocrit (Bld) [Volume fraction] 34.0 % Low 35.0-47.0 [facility] Comment on above: Performed By: #### L [id number] ####Telephone Lineman: LAURA BAUTISTA ([phone])[facility]ITAL[facility] (SWRLAB)[address] [place] [address] Hemoglobin (Bld) [Mass/Vol] 11.1 g/dL Low 11.7-16.0 [facility] Comment on above: Performed By: #### L [id number] ####Telephone Lineman: LAURA BAUTISTA ([phone])[facility]ITAL[facility] (SWRL[facility])[address] [place] [address] IMMATURE GRANS % 0.7 % Normal 0.0-2.0 [facility] Comment on above: Performed By: #### L [id number] ####Telephone Lineman: LAURA BAUTISTA ([phone])[facility]ITAL[facility] (SWRLAB)[address] [place] [address] IMMATURE GRANS ABSOLUTE 0.1 10*3/uL High <0.1 [facility] Comment on above: Performed By: #### L [id number] ####Telephone Lineman: LAURA BAUTISTA ([phone])[facility] (SWRLAB)[address] [place] [address] Lymphocytes (Bld) [#/Vol] 1.9 10*3/uL Normal 1.0-4.3 [facility] Comment on above: Performed By: #### L [id number] ####Telephone Lineman: LAURA BAUTISTA ([phone])[facility]ITAL[facility] (SWRLAB)[address] [place] [address] [place] Lymphocytes/100 WBC (Bld) 24.8 % Normal 15.0-45.0 [facility] Comment on above: Performed By: #### L [id number] ####Telephone Lineman: LAURA BAUTISTA ([phone])[facility]ITAL[facility] (SWRLAB)[address] [place], [place] [address] [place] MCH (RBC) [Entitic mass] 29.4 pg Normal 26.0-34.0 [facility] Comment on above: Performed By: #### L [id number] ####Telephone Lineman: LAURA BAUTISTA ([phone])[facility] [employer] (SWRLAB)[address] [place] [address] MCHC 32.6 % Normal 30.5-36.0 [facility] Comment on above: Performed By: #### L [id number] ####Telephone Lineman: LAURA BAUTISTA ([phone])[facility]ITAL[facility] (SWRLAB)[address] [place] [address] MCV (RBC) [Entitic vol] 90.2 fL Normal 77.0-99.0 [facility] Comment on above: Performed By: #### L [id number] ####Telephone Lineman: LAURA BAUTISTA ([phone])[facility]ITAL[facility] (SWRLAB)[address] [place] [address] Monocytes (Bld) [#/Vol] 0.9 10*3/uL Normal 0.0-0.9 [facility] Comment on above: Performed By: #### L [id number] ####Telephone Lineman: LAURA BAUTISTA ([phone])[facility] [employer] (SWRL[employer])[address] [place] [address] [place] Monocytes/100 WBC (Bld) 11.4 % Normal 5.0-13.0 [facility] Comment on above: Performed By: #### L [id number] ####Telephone Lineman: LAURA BAUTISTA ([phone])[facility]ITAL[facility] (SWRLAB)[address] [place] [address] [place] NEUTROPHILS ABSOLUTE 4.3 10*3/uL Normal 1.8-7.5 [facility] Comment on above: Performed By: #### L [id number] ####Telephone Lineman: LAURA BAUTISTA ([phone])[facility] (SWRLAB)[address] [place] [address] [place] Neutrophils/100 WBC (Bld) 56.3 % Normal 38.0-82.0 [facility] Comment on above: Performed By: #### L [id number] ####Telephone Lineman: LAURA BAUTISTA ([phone])[facility] (SWRLAB)[address] [place] [address] NRBC 0.0 /100 WBCs Normal 0.0-2.0 [facility] Comment on above: Performed By: #### L [id number] ####Telephone Lineman: LAURA BAUTISTA ([phone])[facility] (SWRLAB)[address] [place] [address] Platelet mean volume (Bld) [Entitic vol] 9.4 fL Normal 9.0-12.7 [facility] Comment on above: Result Comment: MPV is a calculated measurement using platelet volume ratio Performed By: #### L [id number] ####Telephone Lineman: LAURA BAUTISTA ([phone])[facility] (SWRLAB)[address] [place] [address] [place] Platelets (Bld) [#/Vol] 282 10*3/uL Normal 140-440 [facility] Comment on above: Performed By: #### L [id number] ####Telephone Lineman: LAURA BAUTISTA ([phone])[facility] (SWRLAB)[address] [place] [address] RBC (Bld) [#/Vol] 3.77 10*6/uL Low 3.80-5.20 [facility] Comment on above: Performed By: #### L [id number] ####Telephone Lineman: LAURA BAUTISTA ([phone])[facility] (SWRLAB)[address] [place] [address] WBC (Bld) [#/Vol] 7.7 10*3/uL Normal 3.6-10.7 [facility] Comment on above: Performed By: #### L [id number] ####Telephone Lineman: LAURA BAUTISTA ([phone])[facility]ITAL[facility] (SWRLAB)[address] COMPREHENSIVE METABOLIC PANE Aamir 07-13-2024 Albumin [Mass/Vol] 3.2 g/dL Low 3.4-4.8 [facility] Comment on above: Performed By: #### L [id number], [id number] ####Telephone Lineman: LAURA BAUTISTA ([phone])[facility]ITAL[facility] (SWRLAB)[address] ALP [Catalytic activity/Vol] 65 U/L Normal 40-150 [facility] Comment on above: Performed By: #### L [id number], LAB17 ####Telephone Lineman: LAURA BAUTISTA ([phone])[facility] HOSPITALRamón VARGAS RITTMAN (SWRLAB)[address] [place] [address] [place] ALT [Catalytic activity/Vol] 12 U/L Normal <30 [facility] Comment on above: Performed By: #### L [id number], LAB17 ####Telephone Lineman: LAURA BAUTISTA ([phone])[facility] HOSPITALRamón VARGAS RITTMAN (SWRLAB)[address] Anion gap [Moles/Vol] 9 mmol/L Normal 3-13 [facility] Comment on above: Performed By: #### L [id number], LAB17 ####Telephone Lineman: LAURA BAUTISTA ([phone])[facility] HOSPITALRamón QUINTANILLASAM RITTMAN (SWRLAB)[address] [place] [address] [place] AST [Catalytic activity/Vol] 20 U/L Normal <34 [facility] Comment on above: Performed By: #### L [id number], LAB17 ####Telephone Lineman: LAURA BAUTISTA ([phone])[facility] HOS[facility]ITALRamón VARGAS RIT[facility]AN (SWRLAB)[address] [place] [address] [place] Bilirubin [Mass/Vol] 0.3 mg/dL Normal <1.2 [facility] Comment on above: Performed By: #### L [id number], LAB17 ####Telephone Lineman: LAURA BAUTISTA ([phone])[facility]OS[facility]ITALRamón VARGAS RITTMAN (SWRLAB)[address] [place] [address] Calcium [Mass/Vol] 9.0 mg/dL Normal 8.8-10.0 [facility] Comment on above: Performed By: #### L [id number], LAB17 ####Telephone Lineman: LAURA BAUTISTA ([phone])[facility]OS[facility]ITALRamón VARGAS [facility] (SWRLAB)[address] [place] [address] [place] Chloride [Moles/Vol] 108 mmol/L High 98-107 [facility] Comment on above: Performed By: #### L [id number], LAB17 ####Telephone Lineman: LAURA BAUTISTA ([phone])[facility] HOSPITALRamón VARGAS RITTMAN (SWRLAB)[address] [place] [address] [place] CO2 [Moles/Vol] 21 mmol/L Low 23-31 [facility] Comment on above: Performed By: #### L [id number], LAB17 ####Telephone Lineman: LAURA BAUTISTA ([phone])[facility]OS[facility]ITALRamón VARGAS [facility] (SWRLAB)[address] [place] [address] [place] Creatinine [Mass/Vol] 2.00 mg/dL High 0.57-1.11 [facility] Comment on above: Performed By: #### L [id number], LAB17 ####Telephone Lineman: LAURA BAUTISTA ([phone])[facility]OS[facility]ITALRamón VARGAS [facility] (SWRLAB)[address] [place] [address] [place] GLOMERULAR FILTRATION RATE ML/MIN/1.73 SQ M.PREDICTED 27.8 mL/min/1.73m*2 Low >60.0 [facility] Comment on above: Result Comment: Calc ulation based on the Chronic Kidney Disease Epidemiology Collaboration (CKD-EPI) equation refit without adjustment for race Performed By: #### L [id number], LAB17 ####Telephone Lineman: LAURA BAUTISTA ([phone])[facility]OS[facility]ITALRamón VARGAS R[place]AN (SWRLAB)[address] [place] [address] [place] Glucose [Mass/Vol] 370 mg/dL High 82-115 [facility] Comment on above: Performed By: #### L [id number], LAB17 ####Telephone Lineman: LAURA BAUTISTA ([phone])[facility]ITALRamón VARGAS RITTMAN (SWRLAB)[address] [place] [address] [place] Potassium [Moles/Vol] 4.8 mmol/L Normal 3.5-5.1 [facility] Comment on above: Result Comment: [facility] potassium values may be up to 0.5 mmol/L lower than serum values. Performed By: #### L [id number], LAB17 ####Telephone Lineman: LAURA BAUTISTA ([phone])[facility]OS[facility]ITALRamón VARGAS R[place]AN (SWRLAB)[address] Protein [Mass/Vol] 6.9 g/dL Normal 6.4-8.3 [facility] Comment on above: Performed By: #### L [id number], LAB17 ####Telephone Lineman: LAURA BAUTISTA ([phone])[facility]ITALRamón VARGAS R[place]AN (SWRLAB)[address] [place] [address] [place] Sodium [Moles/Vol] 138 mmol/L Normal 136-145 [facility] Comment on above: Performed By: #### L [id number], LAB17 ####Telephone Lineman: LAURA BAUTISTA ([phone])[facility]ITALRamón VARGAS R[place]AN (SWRLAB)[address] [place] [address] [place] Urea nitrogen [Mass/Vol] 56 mg/dL High 9-23 [facility] Comment on above: Performed By: #### L [id number], LAB17 ####Telephone Lineman: LAURA BAUTISTA ([phone])[facility]OS[facility]ITALRamón VARGAS R[place] (SWRLAB)[address] ECG 12-LEADon 07-13-2024 ECG 12-LEAD IMPRESSION: Sinus rhythm Inferior infarct, old Compared to ECG 07/08/24 No significant change Electronically Signed On 07-13-2024 00:24:08 EDT by Grzegorz Guillen Normal [facility] ED Nursing Noteon 07-13-2024 ED Nursing Note Pt reports mid back pain, and LLE pain and swelling. Pt treated for cellulitis of lower leg. States her blood sugar was high this evening, did receive her insulin from her nurse. Unsure what type of insulin [facility] ED Provider Noteon ED Provider Note [facility] ED EMERGENCY DEPARTMENT ENCOUNTER Pt Name: [...] 12/11/2022 Performed by Micheal Silva MD at [facility] CURRENT MEDICATIONS Previous Medications ACETAMINOPHEN [...] if av (more content not included)... Normal [facility] BASIC METABOLIC PANELon 04-2 Anion gap [Moles/Vol] 9 mmol/L Normal 3-13 [facility] Comment on above: Performed By: #### L [id number], LAB15 ####Telephone Lineman: LAURA BAUTISTA ([phone])[facility] SAM fluIT BiosystemsTMAN (RLAB)[address] [place] [address] Calcium [Mass/Vol] 8.9 mg/dL Normal 8.8-10.0 [facility] Comment on above: Performed By: #### L [id number], LAB15 ####Telephone Lineman: LAURA BAUTISTA ([phone])[facility] SAM RITTMAN (SWRLAB)[address] [place] [address] [place] Chloride [Moles/Vol] 109 mmol/L High 98-107 [facility] Comment on above: Performed By: #### L [id number], LAB15 ####Telephone Lineman: LAURA BAUTISTA ([phone])[facility] SAM R[place]TMAN (SWRLAB)[address] [place] [address] [place] CO2 [Moles/Vol] 21 mmol/L Low 23-31 [facility] Comment on above: Performed By: #### L [id number], LAB15 ####Telephone Lineman: LAURA BAUTISTA ([phone])[facility]ITALRamón VARGAS RITTMAN (SWRLAB)[address] [place] [address] [place] Creatinine [Mass/Vol] 2.14 mg/dL High 0.57-1.11 [facility] Comment on above: Performed By: #### L [id number], LAB15 ####Telephone Lineman: LAURA BAUTISTA ([phone])[facility]ITALRamón VARGAS [facility]AN (SWRLAB)[address] [place] [address] [place] GLOMERULAR FILTRATION RATE ML/MIN/1.73 SQ M.PREDICTED 25.6 mL/min/1.73m*2 Low >60.0 [facility] Comment on above: Result Comment: Calc ulation based on the Chronic Kidney Disease Epidemiology Collaboration (CKD-EPI) equation refit without adjustment for race Performed By: #### L [id number], LAB15 ####Telephone Lineman: LAURA BAUTISTA ([phone])[facility]ITALRamón VARGAS RITTMAN (SWRLAB)[address] [place] [address] [place] Glucose [Mass/Vol] 316 mg/dL High 82-115 [facility] Comment on above: Performed By: #### L [id number], LAB15 ####Telephone Lineman: LAURA BAUTISTA ([phone])[facility]ITALRamón VARGAS RITTMAN (SWRLAB)[address] [place] [address] [place] Potassium [Moles/Vol] 5.0 mmol/L Normal 3.5-5.1 [facility] Comment on above: Result Comment: [facility] potassium values may be up to 0.5 mmol/L lower than serum values. Performed By: #### L [id number], LAB15 ####Telephone Lineman: LAURA BAUTISTA ([phone])[facility]ITALRamón VARGAS RITTMAN (SWRLAB)[address] [place] [address] [place] Sodium [Moles/Vol] 139 mmol/L Normal 136-145 [facility] Comment on above: Performed By: #### L [id number], LAB15 ####Telephone Lineman: LAURA BAUTISTA ([phone])[facility] [place] (SWRLAB)[address] [place] [address] Urea nitrogen [Mass/Vol] 59 mg/dL High 12-12 [facility] Comment on above: Performed By: #### L [id number], LAB15 ####Telephone Lineman: LAURA BAUTISTA ([phone])[facility] [place] (SWRLAB)[address] [place] [address] CBC WITH AUTO DIFFERENTIALon 07-12-2024 Basophils (Bld) [#/Vol] 0.1 10*3/uL Normal 0.0-0.2 [facility] Comment on above: Performed By: #### L [id number] ####Telephone Lineman: LAURA BAUTISTA ([phone])[facility] [place] (SWRLAB)[address] [place] [address] Basophils/100 WBC (Bld) 0.6 % Normal 0.0-2.0 S [facility] Comment on above: Performed By: #### L [id number] ####Telephone Lineman: LAURA BAUTISTA ([phone])[facility] [place] (SWRLAB)[address] [place] [address] Eosinophils (Bld) [#/Vol] 0.6 10*3/uL High 0.0-0.5 [facility] Comment on above: Performed By: #### L [id number] ####Telephone Lineman: LAURA BAUTISTA ([phone])[facility] [place] (SWRLAB)[address] [place] [address] [place] Eosinophils/100 WBC (Bld) 7.3 % High 0.0-6.0 [facility] Comment on above: Performed By: #### L [id number] ####Telephone Lineman: LAURA BAUTISTA ([phone])DEO QUINTANILLAWORTH RITTMAN (SWRLAB)[address] [place] [address] Erythrocyte distribution width (RBC) [Ratio] 12.9 % Normal 11.5-15.0 [facility] Comment on above: Performed By: #### L [id number] ####Telephone Lineman: LAURA BAUTISTA ([phone])[facility]ITALRamón VARGAS RITTMAN (SWRLAB)[address] [place] [address] Hematocrit (Bld) [Volume fraction] 33.2 % Low 35.0-47.0 [facility] Comment on above: Performed By: #### L [id number] ####Telephone Lineman: LAURA BAUTISTA ([phone])[facility]ITALRamón VARGAS RITTMAN (SWRLAB)[address] [place] [address] Hemoglobin (Bld) [Mass/Vol] 10.8 g/dL Low 11.7-16.0 [facility] Comment on above: Performed By: #### L [id number] ####Telephone Lineman: LAURA BAUTISTA ([phone])[facility]ITALRamón VARGAS RITTM[facility] (SWRLAB)[address] [place] [address] IMMATURE GRANS % 0.5 % Normal 0.0-2.0 [facility] Comment on above: Performed By: #### L [id number] ####Telephone Lineman: LAURA BAUTISTA ([phone])[facility]ITALRamón VARGAS RITTMAN (SWRLAB)[address] [place] [address] IMMATURE GRANS ABSOLUTE 0.0 10*3/uL Normal <0.1 [facility] Comment on above: Performed By: #### L [id number] ####Telephone Lineman: LAURA BAUTISTA ([phone])[facility]ITALRamón VARGAS RITTMAN (SWRLAB)[address] [place] [address] [place] Lymphocytes (Bld) [#/Vol] 1.7 10*3/uL Normal 1.0-4.3 [facility] Comment on above: Performed By: #### L [id number] ####Telephone Lineman: LAURA BAUTISTA ([phone])[facility] [place] (SWRLAB)[address] [place] [address] [place] Lymphocytes/100 WBC (Bld) 22.3 % Normal 15.0-45.0 [facility] Comment on above: Performed By: #### L [id number] ####Telephone Lineman: LAURA BAUTISTA ([phone])[facility] (SWRLAB)[address] [place] [address] MCH (RBC) [Entitic mass] 29.2 pg Normal 26.0-34.0 [facility] Comment on above: Performed By: #### L [id number] ####Telephone Lineman: LAURA BAUTISTA ([phone])[facility]ITALRamón VARGAS RITTMAN (SWRLAB)[address] [place] [address] MCHC 32.5 % Normal 30.5-36.0 [facility] Comment on above: Performed By: #### L [id number] ####Telephone Lineman: LAURA BAUTISTA ([phone])[facility]ITALRamón VARGAS RITTMAN (SWRLAB)[address] [place] [address] [place] MCV (RBC) [Entitic vol] 89.7 fL Normal 77.0-99.0 [facility] Comment on above: Performed By: #### L [id number] ####Telephone Lineman: LAURA BAUTISTA ([phone])[facility]ITALRamón VARGAS RITTMAN (SWRLAB)[address] [place] [address] [place] Monocytes (Bld) [#/Vol] 0.9 10*3/uL Normal 0.0-0.9 [facility] Comment on above: Performed By: #### L [id number] ####Telephone Lineman: LAURA BAUTISTA ([phone])[facility]ITALRamón VARGAS RITTMAN (SWRLAB)[address] [place] [address] [place] Monocytes/100 WBC (Bld) 11.0 % Normal 5.0-13.0 [facility] Comment on above: Performed By: #### L [id number] ####Telephone Lineman: LAURA BAUTISTA ([phone])[facility]ITALRamón VARGAS RITTMAN (SWRLAB)[address] [place] [address] NEUTROPHILS ABSOLUTE 4.5 10*3/uL Normal 1.8-7.5 [facility] Comment on above: Performed By: #### L [id number] ####Telephone Lineman: LAURA BAUTISTA ([phone])[facility]ITALRamón VARGAS RITTMAN (SWRLAB)[address] [place] [address] Neutrophils/100 WBC (Bld) 58.3 % Normal 38.0-82.0 [facility] Comment on above: Performed By: #### L [id number] ####Telephone Lineman: LAURA BAUTISTA ([phone])[facility]ITALRamón VARGAS RITTMAN (SWRLAB)[address] [place] [address] NRBC 0.0 /100 WBCs Normal 0.0-2.0 [facility] Comment on above: Performed By: #### Jaky [id number] ####Telephone Lineman: LAURA BAUTISTA ([phone])[facility]ITALRamón VARGAS RITTMAN (SWRLAB)[address] [place] [address] Platelet mean volume (Bld) [Entitic vol] 9.7 fL Normal 9.0-12.7 [facility] Comment on above: Result Comment: MPV is a calculated measurement using platelet volume ratio Performed By: #### L [id number] ####Telephone Lineman: LAURA BAUTISTA ([phone])[facility]ITALRamón VARGAS RITTMAN (SWRLAB)[address] [place] [address] Platelets (Bld) [#/Vol] 278 10*3/uL Normal 140-440 [facility] Comment on above: Performed By: #### L [id number] ####Telephone Lineman: LAURA BAUTISTA ([phone])[facility]ITALRamón VARGAS RITTMAN (SWRLAB)[address] [place] [address] RBC (Bld) [#/Vol] 3.70 10*6/uL Low 3.80-5.20 [facility] Comment on above: Performed By: #### L [id number] ####Telephone Lineman: LAURA BAUTISTA ([phone])[facility] CENTERSAM YRNAN (SWRLAB)[address] [place] [address] WBC (Bld) [#/Vol] 7.8 10*3/uL Normal 3.6-10.7 [facility] Comment on above: Performed By: #### L [id number] ####Telephone Lineman: LAURA BAUTISTA ([phone])[facility] MED[facility] CENTERSAM EDTMAN (SWRLAB)[address] [place] [address] ED Provider Noteon ED Provider Note Emergency Department Encounter [facility] ED Patient: Cinthya Castillo : 1960 Date of Evaluation: 07/12/2024 ED Provider: Grzegorz Guillen DO Chief Complaint Chief Complaint Patient presents with Fall Pt. Reports bilateral hip pain CADDO Cinthya Castillo is a 63 y.o. female [...] 12/11/2022 Performed by Micheal Silva MD at [address] ENDOSCOPY Social History Socioeconomic History Marital [...] knee, dorsiflex (more content not included)... Normal [facility] HIGH SENSITIVITY TROPONIN, S ERIAL BASELINEon 07-12-2024 TROPONIN HS SERIAL BASELINE 6 ng/L Normal <=14 [facility] Comment on above: Result Comment: In i ndividuals presenting with symptoms > 2h, a baseline troponin <= 5 ng/L suggests acute cardiac injury is unlikely and further serial testing is generally not indicated. Performed By: #### L [id number], LAB15 ####Telephone Lineman: LAURA BAUTISTA ([phone])[facility] HOSPITALRamón BUITRAGO ([facility])[address] [place] [address] 30on 07-11-2024 30 Problem: Knowledge Deficit Goal: [...] for Discharge [facility] [id number] 07-11-2024 [id number] [facility] Site of Care Admission Date: 07/08/2024 07:50 PM Patient Name: CINTHYA CASTILLO Location: [place] [address] Date of : 1960 ---- Placement Information ---- Referral Type:Longterm/SNF - Return Referral ID:[id number] Provider Name:Arleth Address 1:[address] Address 2: City:[place] Selection Factors:Returning to Facility State:[place] [facility] [phone] Confirmed pickup anh e of 130 by transport company [employer] at phone number [phone]. Location of facility drop off is return back to [facility]. Facility notified via [employer], TCC notified on secure chat. 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 Awaiting time confirmation. [facility] [phone] Discharge med list t o return back to [facility] transmitted to via [employer]76 per TCC request. [facility] CBC WITH AUTO DIFFERENTIALon 07-11-2024 Basophils (Bld) [#/Vol] 0.0 10*3/uL Normal 0.0-0.2 [facility] Comment on above: Performed By: #### L [id number] ####Telephone Lineman: YOLETTE CROWE ([phone])[facility] ([facility])[address] [place] [address] Basophils/100 WBC (Bld) 0.4 % Normal 0.0-2.0 S [facility] Comment on above: Performed By: #### L [id number] ####Telephone Lineman: YOLETTE CROWE ([phone])[facility] ([facility])[address] [place] [address] Eosinophils (Bld) [#/Vol] 0.5 10*3/uL Normal 0.0-0.5 [facility] Comment on above: Performed By: #### L [id number] ####Telephone Lineman: YOLETTE CROWE ([phone])[facility] ([facility])[address] [place] [address] Eosinophils/100 WBC (Bld) 5.1 % Normal 0.0-6.0 [facility] Comment on above: Performed By: #### L [id number] ####Telephone Lineman: YOLETTE HENDRICKSAnselmoGILBERT ([phone])[facility] H[facility]ITALA [facility] (SBHLAB)[address] [place] [address] Erythrocyte distribution width (RBC) [Ratio] 12.7 % Normal 11.5-15.0 [facility] Comment on above: Performed By: #### L [id number] ####Telephone Lineman: YOLETTE SEBASTIEN ([phone])[facility] ([facility])[address] [place] [address] Hematocrit (Bld) [Volume fraction] 35.9 % Normal 35.0-47.0 [facility] Comment on above: Performed By: #### L [id number] ####Telephone Lineman: YOLETTE CROWE ([phone])[facility] ([facility])[address] [place] [address] Hemoglobin (Bld) [Mass/Vol] 11.3 g/dL Low 11.7-16.0 [facility] Comment on above: Performed By: #### L [id number] ####Telephone Lineman: YOLETTEFILIBERTO CROWE ([phone])[facility] ([facility])[address] [place] [address] IMMATURE GRANS % 0.6 % Normal 0.0-2.0 [facility] Comment on above: Performed By: #### L [id number] ####Telephone Lineman: YOLETTE TREVIZOGILBERT ([phone])[facility] ([facility])[address] [place] [address] IMMATURE GRANS ABSOLUTE 0.1 10*3/uL High <0.1 [facility] Comment on above: Performed By: #### L [id number] ####Telephone Lineman: YOLETTE HENDRICKSDANIEL ([phone])[facility] ([facility])[address] [place] [address] Lymphocytes (Bld) [#/Vol] 1.6 10*3/uL Normal 1.0-4.3 [facility] Comment on above: Performed By: #### L [id number] ####Telephone Lineman: YOLETTE CROWE ([phone])[facility]ZCES[facility] (SBHLAB)[address] Lymphocytes/100 WBC (Bld) 18.2 % Normal 15.0-45.0 [facility] Comment on above: Performed By: #### L [id number] ####Telephone Lineman: YOLETTE CROWE ([phone])[facility] HOSPITALRamón KUNZSAN JUAN REGIONAL MEDICAL CENTERAreli (SBHLAB)[address] MCH (RBC) [Entitic mass] 28.9 pg Normal 26.0-34.0 [facility] Comment on above: Performed By: #### L [id number] ####Telephone Lineman: YOLETTE TREVIZOGILBERT ([phone])[facility] HOSPITALRamón KWANAreli (SBHLAB)[address] [place] [address] MCHC 31.5 % Normal 30.5-36.0 [facility] Comment on above: Performed By: #### L [id number] ####Telephone Lineman: YOLETTE TREVIZOGILBERT ([phone])[facility] HOSPITALRamón KUNZSAN JUAN REGIONAL MEDICAL CENTERAreli (SBHLAB)[address] MCV (RBC) [Entitic vol] 91.8 fL Normal 77.0-99.0 [facility] Comment on above: Performed By: #### L [id number] ####Telephone Lineman: YOLETTE CROWE ([phone])[facility] HOSPITALRamón KUNZSAN JUAN REGIONAL MEDICAL CENTERAreli (SBHLAB)[address] [place] [address] Monocytes (Bld) [#/Vol] 1.0 10*3/uL High 0.0-0.9 [facility] Comment on above: Performed By: #### L [id number] ####Telephone Lineman: YOLETTE CROWE ([phone])[facility] HOSPITALRamón KUNZSAN JUAN REGIONAL MEDICAL CENTERAreli (SBHLAB)[address] Monocytes/100 WBC (Bld) 11.4 % Normal 5.0-13.0 [facility] Comment on above: Performed By: #### L [id number] ####Telephone Lineman: YOLETTE CROWE ([phone])[facility] (SBHLAB)[address] NEUTROPHILS ABSOLUTE 5.7 10*3/uL Normal 1.8-7.5 [facility] Comment on above: Performed By: #### L [id number] ####Telephone Lineman: YOLETTE CROWE ([phone])[facility] HOSPITALA [place] (SBHLAB)[address] Neutrophils/100 WBC (Bld) 64.3 % Normal 38.0-82.0 [facility] Comment on above: Performed By: #### L [id number] ####Telephone Lineman: YOLETTE CROWE ([phone])[facility] HOSPITALA [place] (SBHLAB)[address] NRBC 0.0 /100 WBCs Normal 0.0-2.0 [facility] Comment on above: Performed By: #### L [id number] ####Telephone Lineman: YOLETTE CROWE ([phone])[facility] HOSPITALA [place] (SBHLAB)[address] Platelet mean volume (Bld) [Entitic vol] 9.5 fL Normal 9.0-12.7 [facility] Comment on above: Performed By: #### L [id number] ####Telephone Lineman: YOLETTE CROWE ([phone])[facility] [place] ([facility])[address] [place] [address] [place] Platelets (Bld) [#/Vol] 277 10*3/uL Normal 140-440 [facility] Comment on above: Performed By: #### L [id number] ####Telephone Lineman: YOLETTE CROWE ([phone])[facility] [place] ([facility])[address] RBC (Bld) [#/Vol] 3.91 10*6/uL Normal 3.80-5.20 [facility] Comment on above: Performed By: #### L [id number] ####Telephone Lineman: YOLETTE CROWE ([phone])[facility] [place] (SBHLAB)[address] WBC (Bld) [#/Vol] 8.9 10*3/uL Normal 3.6-10.7 [facility] Comment on above: Performed By: #### L [id number] ####Telephone Lineman: YOLETTE CROWE ([phone])[facility] [place] ([facility])[address] COMPREHENSIVE METABOLIC PANE Aamir 07-11-2024 Albumin [Mass/Vol] 3.0 g/dL Low 3.4-4.8 [facility] Comment on above: Performed By: #### L [id number] ####Telephone Lineman: YOLETTE CROWE ([phone])[facility] [place] ([facility])[address] ALP [Catalytic activity/Vol] 55 U/L Normal 40-150 [facility] Comment on above: Performed By: #### L [id number] ####Telephone Lineman: YOLETTE CROWE ([phone])[facility] [place] ([facility])[address] ALT [Catalytic activity/Vol] 10 U/L Normal <30 [facility] Comment on above: Performed By: #### L [id number] ####Telephone Lineman: YOLETTE CROWE ([phone])[facility] [place] ([facility])[address] Anion gap [Moles/Vol] 8 mmol/L Normal 3-13 [facility] Comment on above: Performed By: #### L [id number] ####Telephone Lineman: YOLETTE CROWE ([phone])[facility] [place] (SBHLAB)[address] AST [Catalytic activity/Vol] 19 U/L Normal <34 [facility] Comment on above: Performed By: #### L [id number] ####Telephone Lineman: YOLETTE CROWE ([phone])[facility] [place] (SBHLAB)[address] Bilirubin [Mass/Vol] 0.2 mg/dL Normal <1.2 [facility] Comment on above: Performed By: #### L [id number] ####Telephone Lineman: YOLETTE CROWE ([phone])[facility]ITAL[facility]W[place] (SBHLAB)[address] Calcium [Mass/Vol] 8.5 mg/dL Low 8.8-10.0 [facility] Comment on above: Performed By: #### L [id number] ####Telephone Lineman: YOLETTE CROWE ([phone])[facility] [place] (SBHLAB)[address] Chloride [Moles/Vol] 112 mmol/L High 98-107 [facility] Comment on above: Performed By: #### L [id number] ####Telephone Lineman: YOLETTE CROWE ([phone])[facility] [place] (SBHLAB)[address] CO2 [Moles/Vol] 20 mmol/L Low 23-31 [facility] Comment on above: Performed By: #### L [id number] ####Telephone Lineman: YOLETTE CROWE ([phone])[facility] [place] (SBHLAB)[address] Creatinine [Mass/Vol] 2.12 mg/dL High 0.57-1.11 [facility] Comment on above: Performed By: #### L [id number] ####Telephone Lineman: YOLETTE CROWE ([phone])[facility]ITALRamón [place] (SBHLAB)155 [place] [address] [place] GLOMERULAR FILTRATION RATE ML/MIN/1.73 SQ M.PREDICTED 25.9 mL/min/1.73m*2 Low >60.0 [facility] Comment on above: Result Comment: Calc ulation based on the Chronic Kidney Disease Epidemiology Collaboration (CKD-EPI) equation refit without adjustment for race Performed By: #### L [id number] ####Telephone Lineman: YOLETTE CROWE ([phone])[facility] [place] (SBHLAB)[address] Glucose [Mass/Vol] 120 mg/dL High 82-115 [facility] Comment on above: Performed By: #### L [id number] ####Telephone Lineman: YOLETTE CROWE ([phone])[facility] (SBHLAB)[address] Potassium [Moles/Vol] 4.2 mmol/L Normal 3.5-5.1 [facility] Comment on above: Result Comment: [facility] potassium values may be up to 0.5 mmol/L lower than serum values. Performed By: #### L [id number] ####Telephone Lineman: YOLETTE CROWE ([phone])[facility] (SBHLAB)[address] Protein [Mass/Vol] 6.5 g/dL Normal 6.4-8.3 [facility] Comment on above: Performed By: #### L [id number] ####Telephone Lineman: YOLETTE CROWE ([phone])[facility] (SBHLAB)[address] Sodium [Moles/Vol] 140 mmol/L Normal 136-145 [facility] Comment on above: Performed By: #### L [id number] ####Telephone Lineman: YOLETTE CROWE ([phone])[facility] (SBHLAB)[address] Urea nitrogen [Mass/Vol] 48 mg/dL High 9-23 [facility] Comment on above: Performed By: #### L [id number] ####Telephone Lineman: YOLETTE CROWE ([phone])[facility] (SBHLAB)[address] Nursing Noteon 07-11-2024 Nursing Note Report given to Alfreda wilcox at [facility]. All questions answered at this time. Normal [facility] Nursing Note Called report to [facility], Nurse not available to accept call. Will try again at another time. Normal [facility] Progress Noteon 07-11-2024 Progress Note Seen and examined. Doing well. D/w pt and ESTHER Morrissey, separately. Will discharge today. Normal [facility] Progress Note OCCUPATIONAL THERAPY [facility] Treatment Note Name/MRN: Cinthya Castillo ([id number]) Date of : 1960 Age: 63 y.o. Room[facility]: [facility] A Visit #: 1 out of 8 visits Discharge Recommendation: Home with Home health OT (return to [place]) Equipment Needed: No Prior Level of Function [...] still recommending pt to discharge back to [facility] with home health OT. Subjective Pt supine [...] and discharge instructions Outcome: Progressing Flowsheets (Taken 07/10/20242252) Patient/family/caregiv er demonstrates understanding of disease process, [...] integrity is maintained or improved Outcome: Progressing [facility] [id number] 07-10-2024 [id number] Patient is from [facility], and was admitted with left leg cellulitis. Per Kristine at facility, she is a bedhold and is ok to return at discharge. She is currently receiving IV cefepime and vancomycin. PT/OT consulted. CM following to assist with discharge needs. [facility] [id number] Pt is on Medicaid an d from a facility ([facility]). If she returns, she will not need PASRR, per other social security specialist, Ricardo Brown. [facility] BASIC METABOLIC PANELon 04-2 Anion gap [Moles/Vol] 8 mmol/L Normal 3-13 [facility] Comment on above: Performed By: #### L [id number] ####Telephone Lineman: YOLETTE CROWE ([phone])[facility] [place] (SBHLAB)[address] Calcium [Mass/Vol] 8.4 mg/dL Low 8.8-10.0 [facility] Comment on above: Performed By: #### L [id number] ####Telephone Lineman: YOLETTE CROWE ([phone])[facility] [place] (SBHLAB)[address] Chloride [Moles/Vol] 114 mmol/L High 98-107 [facility] Comment on above: Performed By: #### L AB15 ####Telephone Lineman: YOLETTE CROWE ([phone])[facility] [place] (SBHLAB)[address] CO2 [Moles/Vol] 20 mmol/L Low 23-31 [facility] Comment on above: Performed By: #### L [id number] ####Telephone Lineman: YOLETTE CROWE ([phone])[facility] [place] (SBHLAB)[address] Creatinine [Mass/Vol] 2.13 mg/dL High 0.57-1.11 [facility] Comment on above: Performed By: #### L [id number] ####Telephone Lineman: YOLETTE CROWE ([phone])[facility] [place] (SBHLAB)[address] GLOMERULAR FILTRATION RATE ML/MIN/1.73 SQ M.PREDICTED 25.8 mL/min/1.73m*2 Low >60.0 [facility] Comment on above: Result Comment: Calc ulation based on the Chronic Kidney Disease Epidemiology Collaboration (CKD-EPI) equation refit without adjustment for race Performed By: #### L [id number] ####Telephone Lineman: YOLETTE CROWE ([phone])[facility]ITALRamón [place] (SBHLAB)[address] Glucose [Mass/Vol] 150 mg/dL High 82-115 [facility] Comment on above: Performed By: #### L [id number] ####Telephone Lineman: YOLETTE CROWE ([phone])[facility]ENTER[facility] (SBHLAB)[address] Potassium [Moles/Vol] 4.8 mmol/L Normal 3.5-5.1 [facility] Comment on above: Result Comment: [facility] potassium values may be up to 0.5 mmol/L lower than serum values. Performed By: #### L AB15 ####Telephone Lineman: YOLETTE CROWE ([phone])[facility] (SBAB)[address] Sodium [Moles/Vol] 142 mmol/L Normal 136-145 [facility] Comment on above: Performed By: #### L [id number] ####Telephone Lineman: YOLETTE CROWE ([phone])[facility] (SBHLAB)[address] Urea nitrogen [Mass/Vol] 54 mg/dL High 9-23 [facility] Comment on above: Performed By: #### L [id number] ####Telephone Lineman: YOLETTE CROWE ([phone])[facility] (SBAB)[address] CBC WITH AUTO DIFFERENTIALon 07-10-2024 Basophils (Bld) [#/Vol] 0.1 10*3/uL Normal 0.0-0.2 [facility] Comment on above: Performed By: #### L [id number] ####Telephone Lineman: YOLETTE CROWE ([phone])[facility] (SBHLAB)155 [place] [address] [place] Basophils/100 WBC (Bld) 0.7 % Normal 0.0-2.0 [facility] Comment on above: Performed By: #### L [id number] ####Telephone Lineman: YOLETTE CROWE ([phone])[facility] [place] (SBHLAB)[address] [place] [address] Eosinophils (Bld) [#/Vol] 0.4 10*3/uL Normal 0.0-0.5 [facility] Comment on above: Performed By: #### L [id number] ####Telephone Lineman: YOLETTE CROWE ([phone])[facility] [place] (SBHLAB)[address] Eosinophils/100 WBC (Bld) 4.8 % Normal 0.0-6.0 [facility] Comment on above: Performed By: #### L [id number] ####Telephone Lineman: YOLETTE CROWE ([phone])[facility]A [facility] (SBHLAB)[address] [place] [address] Erythrocyte distribution width (RBC) [Ratio] 12.9 % Normal 11.5-15.0 [facility] Comment on above: Performed By: #### L [id number] ####Telephone Lineman: YOLETTE CROWE ([phone])[facility]A [facility] (SBHLAB)[address] [place] [address] Hematocrit (Bld) [Volume fraction] 37.2 % Normal 35.0-47.0 [facility] Comment on above: Performed By: #### L [id number] ####Telephone Lineman: YOLETTE CROWE ([phone])[facility] (SBHLAB)[address] [place] [address] Hemoglobin (Bld) [Mass/Vol] 11.4 g/dL Low 11.7-16.0 [facility] Comment on above: Performed By: #### L [id number] ####Telephone Lineman: YOLETTE CROWE ([phone])[facility] [place] (SBHLAB)[address] [place] [address] IMMATURE GRANS % 0.6 % Normal 0.0-2.0 [facility] Comment on above: Performed By: #### L [id number] ####Telephone Lineman: YOLETTE CROWE ([phone])[facility] [place] (SBHLAB)[address] IMMATURE GRANS ABSOLUTE 0.1 10*3/uL High <0.1 [facility] Comment on above: Performed By: #### L [id number] ####Telephone Lineman: YOLETTE CROWE ([phone])[facility]ITALRam[facility] [place] (SBHLAB)[address] Lymphocytes (Bld) [#/Vol] 1.9 10*3/uL Normal 1.0-4.3 [facility] Comment on above: Performed By: #### L [id number] ####Telephone Lineman: YOLETTE CROWE ([phone])[facility]ITALRamón KUNZSAN [facility]ERN (SBHLAB)[address] Lymphocytes/100 WBC (Bld) 22.4 % Normal 15.0-45.0 [facility] Comment on above: Performed By: #### L [id number] ####Telephone Lineman: YOLETTE CROWE ([phone])[facility]ITALRam[facility] [place] (SBHLAB)[address] MCH (RBC) [Entitic mass] 28.5 pg Normal 26.0-34.0 [facility] Comment on above: Performed By: #### L [id number] ####Telephone Lineman: YOLETTE CROWE ([phone])[facility]ITALRamón KUNZSAN [facility] (SBHLAB)[address] MCHC 30.6 % Normal 30.5-36.0 [facility] Comment on above: Performed By: #### L [id number] ####Telephone Lineman: YOLETTE CROWE ([phone])[facility]ITALRam[facility] [place] (SBHLAB)[address] MCV (RBC) [Entitic vol] 93.0 fL Normal 77.0-99.0 [facility] Comment on above: Performed By: #### L [id number] ####Telephone Lineman: YOLETTE CROWE ([phone])[facility]A [facility] (SBHLAB)[address] Monocytes (Bld) [#/Vol] 1.0 10*3/uL High 0.0-0.9 [facility] Comment on above: Performed By: #### L [id number] ####Telephone Lineman: YOLETTE CROWE ([phone])[facility] [place] (SBHLAB)[address] Monocytes/100 WBC (Bld) 12.3 % Normal 5.0-13.0 [facility] Comment on above: Performed By: #### L [id number] ####Telephone Lineman: YOLETTE CROWE ([phone])[facility] [place] (SBHLAB)[address] NEUTROPHILS ABSOLUTE 5.0 10*3/uL Normal 1.8-7.5 [facility] Comment on above: Performed By: #### L [id number] ####Telephone Lineman: YOLETTE CROWE ([phone])[facility] [place] (SBHLAB)[address] Neutrophils/100 WBC (Bld) 59.2 % Normal 38.0-82.0 [facility] Comment on above: Performed By: #### L [id number] ####Telephone Lineman: YOLETTE CROWE ([phone])[facility] [place] (SBHLAB)[address] NRBC 0.0 /100 WBCs Normal 0.0-2.0 [facility] Comment on above: Performed By: #### L [id number] ####Telephone Lineman: YOLETTE CROWE ([phone])[facility] [place] (SBHLAB)[address] [place] [address] [place] Platelet mean volume (Bld) [Entitic vol] 9.5 fL Normal 9.0-12.7 [facility] Comment on above: Performed By: #### L [id number] ####Telephone Lineman: YOLETTE CROWE ([phone])[facility] [place] (SBHLAB)[address] Platelets (Bld) [#/Vol] 258 10*3/uL Normal 140-440 [facility] Comment on above: Performed By: #### L [id number] ####Telephone Lineman: YOLETTE CROWE ([phone])[facility] (SBHLAB)[address] [place] [address] RBC (Bld) [#/Vol] 4.00 10*6/uL Normal 3.80-5.20 [facility] Comment on above: Performed By: #### L [id number] ####Telephone Lineman: YOLETTE CROWE ([phone])[facility] (SBHLAB)[address] [place] [address] WBC (Bld) [#/Vol] 8.5 10*3/uL Normal 3.6-10.7 [facility] Comment on above: Performed By: #### L [id number] ####Telephone Lineman: YOLETTE CROWE ([phone])[facility] (SBHLAB)[address] [place] [address] Consulton 07-10-2024 Consult Vancomycin therapy h as been discontinued by Dr. Sy on 07/10/24. Thank you for the consult. Pharmacy signing off for vancomycin dosing. Sandy Ruiz [facility] Date: 07/10/24 Time: 12:02 PM Normal [facility] Consult [facility] Wound Care CONSULT Note Cinthya Castillo AGE: [...] shortness of breath. Wound Care consulted for Wound to LLE PAST MEDICAL HISTORY Past Medical History: Diagnosis Date Asthma Developmental delay Diabetes mellitus (HCC) Diverticulosis Hiatal hernia Hypertension STEFANI (obstructive sleep apnea) PAST SURGICAL HISTORY Past Surgical History: Procedure Laterality Date ANKLE SURGERY COLONOSCOPY N/A 12/11/2022 Performed by Micheal Silva MD at [facility] [address] FAMILY HISTORY Family [...] (Temporal) Resp 18 Ht 1.676 m (5' 6) Wt (!) 137 kg (303 lb) SpO2 [...] (H) 07/10/2024 PT/INR: No results found for: PROTIME, INR Prealbumin: No results found for: PREALBUMIN Albumin:No components found for: LABALBU Sed Rate:No results found for: SEDRATE Micro: No components found for: BC Assessment/Plan: Nursing staff to perform dressing change: [...] to follow Recommend to follow up at [facility] Outpatient wound care center after hospital discharge. Any questions or concerns please secure chat [facility] wound/ostomy. Thank you for the consult! I pe (more content not included)... Normal [facility] Progress Noteon 07-10-2024 Progress Note -- Attestation signed by Benny Beltran OT at 07/10/2024 2:13 PM I certify that I was present during the entire session and guided the care given by the Student Occupational Therapist. Cosign: OCCUPATIONAL THERAPY [facility] Initial Evaluation Name/MRN: Cinthya Castillo ([id number]) Evaluation Date: 07/10/2024 Date of : 1960 Admission Date: 07/08/2024 7:50 PM Age: 63 y.o. Room[facility]: [facility] A Discharge Recommendation: Home with Home health [...] therapy services. Services approved by her RN, gb for therapy. Pain: 0-10 pain scale: 9/10 Location: Low back Past Medical History: Past Medical History: Diagnosis Date Asthma Developmental delay Diabetes mellitus (HCC) Diverticulosis Hiatal hernia Hypertension STEFANI (obstructive sleep apnea) Past Surgical History: Past Surgical History: Procedure Laterality Date ANKLE SURGERY COLONOSCOPY N/A 12/11/2022 Performed by Micheal Silva MD at [facility] [address] Admission Diagnosis: Patient Active Problem List Diagnosis Date Noted Left leg cellulitis 07/08/2024 Shortness of breath 09/07/2023 Chronic kidney disease 09/07/2023 Lightheadedness 07/18/2018 Abdominal pain, left lower quadrant 07/18/2018 Hypertension 07/17/2018 Type 2 diabetes mellitus with hyperglycemia, without long-term current use of insulin (HCC) 07/17/2018 Nausea & vomiting 07/17/2018 Diabetes mellitus type 2 in obese ([facility]) 12/19/2017 Hypoglycemia 12/19/2017 Neuropathy 12/19/2017 Intertrigo 12/19/2017 CAD (coronary artery disease) 12/19/2017 Generalized weakness 12/10/2017 Acute renal injury ([facility]) 12/10/2017 Medical Precautions: No active isolations Proper [...] to Person Social/Functional History Patient admitted from [facility] Assistive Equipment: front wheeled walker Prior Level [...] to c (more content not included)... Normal [facility] Progress Note Nutrition rescreen completed. Chart reviewed. Patient to be monitored and followed by the diet test and turn up technician. Normal [facility] VANCOMYCIN, AUC TIMED DOSING on 07-10-2024 VANCOMYCIN, AUC 20.3 ug/mL Normal [facility] Comment on above: Result Comment: MITRA Hargrove COMMENTS: Please draw random level at least >2 hours after the end of the last vancomycin infusion, or 30-minutes before next infusion. Toxicity is seen at concentrations >80-100 ug/mL Therapeutic (Peak) range: 20-40 Therapeutic (Trough) range: 5-10 Performed By: #### L [id number] ####Telephone Lineman: YOLETTE CROWE ([phone])[facility] (SBHLAB)[address] [place] [address] CBC WITH AUTO DIFFERENTIALon 07-09-2024 Basophils (Bld) [#/Vol] 0.1 10*3/uL Normal 0.0-0.2 [facility] Comment on above: Performed By: #### L [id number] ####Telephone Lineman: YOLETTE CROWE ([phone])[facility] (SBHLAB)[address] [place] [address] Basophils/100 WBC (Bld) 0.6 % Normal 0.0-2.0 [facility] Comment on above: Performed By: #### L [id number] ####Telephone Lineman: YOLETTE CROWE ([phone])[facility] [place] (SBHLAB)[address] Eosinophils (Bld) [#/Vol] 0.3 10*3/uL Normal 0.0-0.5 [facility] Comment on above: Performed By: #### L [id number] ####Telephone Lineman: YOLETTE CROWE ([phone])[facility] [place] (SBHLAB)[address] Eosinophils/100 WBC (Bld) 4.0 % Normal 0.0-6.0 [facility] Comment on above: Performed By: #### L [id number] ####Telephone Lineman: YOLETTE CROWE ([phone])[facility] ([facility] [place] [address] Erythrocyte distribution width (RBC) [Ratio] 13.4 % Normal 11.5-15.0 [facility] Comment on above: Performed By: #### L [id number] ####Telephone Lineman: YOLETTE CROWE ([phone])[facility] [place] [address] Hematocrit (Bld) [Volume fraction] 34.9 % Low 35.0-47.0 [facility] Comment on above: Performed By: #### L [id number] ####Telephone Lineman: YOLETTE CROWE ([phone])[facility] (SBAB)[address] [place] [address] Hemoglobin (Bld) [Mass/Vol] 11.4 g/dL Low 11.7-16.0 [facility] Comment on above: Performed By: #### L [id number] ####Telephone Lineman: YOLETTE CROWE ([phone])[facility] (SBAB)[address] IMMATURE GRANS % 0.5 % Normal 0.0-2.0 [facility] Comment on above: Performed By: #### L [id number] ####Telephone Lineman: YOLETTE TREVIZOGILBERT ([phone])[facility] HOS[facility]ITALRamón [facility] (SBAB)[address] [place] [address] IMMATURE GRANS ABSOLUTE 0.0 10*3/uL Normal <0.1 [facility] Comment on above: Performed By: #### L [id number] ####Telephone Lineman: YOLETTE TREVIZOGILBERT ([phone])[facility] HOS[facility]ITALRamón [facility])[address] Lymphocytes (Bld) [#/Vol] 2.1 10*3/uL Normal 1.0-4.3 [facility] Comment on above: Performed By: #### L [id number] ####Telephone Lineman: YOLETTE HENDRICKSDANIEL ([phone])[facility] ([facility])[address] [place] [address] Lymphocytes/100 WBC (Bld) 26.5 % Normal 15.0-45.0 [facility] Comment on above: Performed By: #### L [id number] ####Telephone Lineman: YOLETTE CROWE ([phone])[facility] HOS[facility]ITALRamón [facility] ([facility])[address] [place] [address] MCH (RBC) [Entitic mass] 29.5 pg Normal 26.0-34.0 [facility] Comment on above: Performed By: #### L [id number] ####Telephone Lineman: YOLETTE CROWE ([phone])[facility] ([facility])[address] [place] [address] MCHC 32.7 % Normal 30.5-36.0 [facility] Comment on above: Performed By: #### L [id number] ####Telephone Lineman: YOLETTE CROWE ([phone])[facility] ([facility])[address] [place] [address] MCV (RBC) [Entitic vol] 90.2 fL Normal 77.0-99.0 [facility] Comment on above: Performed By: #### L [id number] ####Telephone Lineman: YOLETTE HENDRICKSAnselmoGILBERT ([phone])[facility] [place] (SBHLAB)[address] Monocytes (Bld) [#/Vol] 1.0 10*3/uL High 0.0-0.9 [facility] Comment on above: Performed By: #### L [id number] ####Telephone Lineman: YOLETTE HENDRICKSDANIEL ([phone])[facility] [place] (SBHLAB)[address] Monocytes/100 WBC (Bld) 13.1 % High 5.0-13.0 [facility] Comment on above: Performed By: #### L [id number] ####Telephone Lineman: YOLETTE HENDRICKSDANIEL ([phone])[facility] [place] (SBHLAB)[address] NEUTROPHILS ABSOLUTE 4.3 10*3/uL Normal 1.8-7.5 [facility] Comment on above: Performed By: #### L [id number] ####Telephone Lineman: YOLETTE TREVIZOGILBERT ([phone])[facility] [place] (SBHLAB)[address] Neutrophils/100 WBC (Bld) 55.3 % Normal 38.0-82.0 [facility] Comment on above: Performed By: #### L [id number] ####Telephone Lineman: YOLETTE CROWE ([phone])[facility] [place] (SBHLAB)[address] NRBC 0.0 /100 WBCs Normal 0.0-2.0 [facility] Comment on above: Performed By: #### L [id number] ####Telephone Lineman: YOLETTE CROWE ([phone])[facility] [place] (SBHLAB)[address] Platelet mean volume (Bld) [Entitic vol] 10.7 fL Normal 9.0-12.7 [facility] Comment on above: Performed By: #### L [id number] ####Telephone Lineman: YOLETTE CROWE ([phone])[facility] [place] (SBHLAB)[address] Platelets (Bld) [#/Vol] 376 10*3/uL Normal 140-440 [facility] Comment on above: Performed By: #### L [id number] ####Telephone Lineman: YOLETTE CROWE ([phone])[facility] [place] (SBHLAB)[address] RBC (Bld) [#/Vol] 3.87 10*6/uL Normal 3.80-5.20 [facility] Comment on above: Performed By: #### L [id number] ####Telephone Lineman: YOLETTE CROWE ([phone])[facility] [place] (SBHLAB)[address] WBC (Bld) [#/Vol] 7.8 10*3/uL Normal 3.6-10.7 [facility] Comment on above: Performed By: #### L [id number] ####Telephone Lineman: YOLETTE CROWE ([phone])[facility] [place] (SBHLAB)[address] COMPREHENSIVE METABOLIC PANE Aamir 07-09-2024 Albumin [Mass/Vol] 3.3 g/dL Low 3.4-4.8 [facility] Comment on above: Performed By: #### L [id number], [id number] ####Telephone Lineman: YOLETTE CROWE ([phone])[facility] [place] (SBHLAB)[address] ALP [Catalytic activity/Vol] 59 U/L Normal 40-150 [facility] Comment on above: Performed By: #### L [id number], [id number] ####Telephone Lineman: YOLETTE CROWE ([phone])[facility] [place] (SBHLAB)[address] ALT [Catalytic activity/Vol] 11 U/L Normal <30 [facility] Comment on above: Performed By: #### L [id number], [id number] ####Telephone Lineman: YOLETTE CROWE ([phone])[facility] [place] (SBHLAB)[address] Anion gap [Moles/Vol] 8 mmol/L Normal 3-13 [facility] Comment on above: Performed By: #### L [id number], LAB17 ####Telephone Lineman: YOLETTE CROWE ([phone])[facility] (SBHLAB)[address] AST [Catalytic activity/Vol] 20 U/L Normal <34 [facility] Comment on above: Performed By: #### L [id number], [id number] ####Telephone Lineman: YOLETTE CROWE ([phone])[facility] (SBHLAB)[address] Bilirubin [Mass/Vol] 0.3 mg/dL Normal <1.2 [facility] Comment on above: Performed By: #### L [id number], [id number] ####Telephone Lineman: YOLETTE CROWE ([phone])[facility] (SBHLAB)[address] Calcium [Mass/Vol] 8.4 mg/dL Low 8.8-10.0 [facility] Comment on above: Performed By: #### L [id number], [id number] ####Telephone Lineman: YOLETTE CROWE ([phone])[facility] [place] (SBHLAB)155 [place] [address] [place] Chloride [Moles/Vol] 112 mmol/L High 98-107 [facility] Comment on above: Performed By: #### L [id number], [id number] ####Telephone Lineman: YOLETTE CROWE ([phone])[facility] (SBHLAB)155 [place] [address] [place] CO2 [Moles/Vol] 22 mmol/L Low 23-31 [facility] Comment on above: Performed By: #### L [id number], [id number] ####Telephone Lineman: YOLETTE CROWE ([phone])[facility] [place] (SBHLAB)[address] Creatinine [Mass/Vol] 2.37 mg/dL High 0.57-1.11 [facility] Comment on above: Performed By: #### L [id number], LAB17 ####Telephone Lineman: YOLETTE CROWE ([phone])[facility] [place] (SBHLAB)[address] GLOMERULAR FILTRATION RATE ML/MIN/1.73 SQ M.PREDICTED 22.7 mL/min/1.73m*2 Low >60.0 [facility] Comment on above: Result Comment: Calc ulation based on the Chronic Kidney Disease Epidemiology Collaboration (CKD-EPI) equation refit without adjustment for race Performed By: #### L [id number], [id number] ####Telephone Lineman: YOLETTE CROWE ([phone])[facility] [place] (SBHLAB)[address] Glucose [Mass/Vol] 227 mg/dL High 82-115 [facility] Comment on above: Performed By: #### L [id number], LAB17 ####Telephone Lineman: YOLETTE CROWE ([phone])[facility] (SBHLAB)[address] Potassium [Moles/Vol] 4.6 mmol/L Normal 3.5-5.1 [facility] Comment on above: Result Comment: [facility] potassium values may be up to 0.5 mmol/L lower than serum values. Performed By: #### L [id number], LAB17 ####Telephone Lineman: YOLETTE CROWE ([phone])[facility] (SBHLAB)[address] Protein [Mass/Vol] 6.5 g/dL Normal 6.4-8.3 [facility] Comment on above: Performed By: #### L [id number], LAB17 ####Telephone Lineman: YOLETTE TREVIZOGILBERT ([phone])[facility] HOSPITALRamón [place] (SBHLAB)[address] Sodium [Moles/Vol] 142 mmol/L Normal 136-145 [facility] Comment on above: Performed By: #### L [id number], LAB17 ####Telephone Lineman: YOLETTE HENDRICKSDANIEL ([phone])[facility] HOSPITALRamón K[facility]ZVALLEYWISE [facility] (SBHLAB)[address] Urea nitrogen [Mass/Vol] 58 mg/dL High 9-23 [facility] Comment on above: Performed By: #### L [id number], [id number] ####Telephone Lineman: YOLETTE CROWE ([phone])[facility]ITALRamón K[facility]ZVALLEYWISE [facility] (SBHLAB)[address] [place] [address] Consulton 07-09-2024 Consult Pharmacy Managed Vancomycin Dosing Service Consult Note Consult Date: 07/09/24 Patient Name: Cinthya Castillo Allergies: Penicillins Age: 63 y.o. Sex: female Estimated body mass index is 48.91 kg/m? as calculated from the following: Height as of this encounter: 1.676 m (5' 6). Weight as of this encounter: 137 kg [...] creatinine, and vancomycin levels interfaced automatically to [employer] and data has been analyzed and interpreted. [...] PharmD Clinical Pharmacist Available via Secure Chat [facility] ECG 12-LEADon 07-09-2024 ECG 12-LEAD IMPRESSION: Sinus rhythm Inferior infarct, old Compared to ECG 07/03/24 at 1914 No significant change Electronically Signed On 07-09-2024 00:52:11 EDT by Grzegorz Guillen [facility] HIGH SENSITIVITY TROPONIN, S ERIAL BASELINEon 07-09-2024 TROPONIN HS SERIAL BASELINE 6 ng/L Normal <=14 [facility] Comment on above: Result Comment: In i ndividuals presenting with symptoms > 2h, a baseline troponin <= 5 ng/L suggests acute cardiac injury is unlikely and further serial testing is generally not indicated. Performed By: #### L [id number], [id number] ####Telephone Lineman: YOLETTE CROWE ([phone])[facility] ([facility])[address] [place] [address] HIGH SENSITIVITY TROPONIN, S ERIAL, SECOND TESTon 07-09-2024 2H TROPONIN HS (SERIAL 2ND TROPONIN) 7 ng/L Normal <=14 [facility] Comment on above: Result Comment: 2h t roponin (2nd troponin) samples collected between 1h 40 min and 2h and 20 min of the baseline collection time can be utilized to interpret delta troponins as per [facility] algorithms. Samples collected outside this timeframe need to be interpreted clinically. Rising or falling troponin delta below 2 ng/L as compared to baseline value suggests that acute cardiac injury is unlikely. Performed By: #### L [id number] ####Telephone Lineman: YOLETTE CROWE ([phone])[facility]OS[facility]ITALRamón [facility] CENTERAreli (SBHLAB)[address] [place] [address] 2H TROPONIN HS (SERIAL 2ND TROPONIN) 6 ng/L Normal <=14 [facility] Comment on above: Result Comment: Risi ng or falling troponin delta below 2 ng/L as compared to baseline value suggests that acute cardiac injury is unlikely. Performed By: #### L [id number] ####Telephone Lineman: YOLETTE CROWE ([phone])[facility] HOSPITALRamón Z[place]ESAR (SBHLAB)[address] [place] [address] CBC WITH AUTO DIFFERENTIALon 07-08-2024 Basophils (Bld) [#/Vol] 0.0 10*3/uL Normal 0.0-0.2 [facility] Comment on above: Performed By: #### L [id number] ####Telephone Lineman: LAURA BAUTISTA ([phone])[facility]A [place] (SWRLAB)[address] [place] [address] Basophils/100 WBC (Bld) 0.5 % Normal 0.0-2.0 S [facility] Comment on above: Performed By: #### L [id number] ####Telephone Lineman: LAURA BAUTISTA ([phone])[facility] [place] (SWRLAB)[address] Eosinophils (Bld) [#/Vol] 0.3 10*3/uL Normal 0.0-0.5 [facility] Comment on above: Performed By: #### L [id number] ####Telephone Lineman: LAURA BAUTISTA ([phone])[facility]A [place] (SWRLAB)[address] [place] [address] [place] Eosinophils/100 WBC (Bld) 3.5 % Normal 0.0-6.0 [facility] Comment on above: Performed By: #### L [id number] ####Telephone Lineman: LAURA BAUTISTA ([phone])[facility] HOSPITALRamón VARGAS [place] (SWRLAB)[address] [place] [address] Erythrocyte distribution width (RBC) [Ratio] 13.1 % Normal 11.5-15.0 [facility] Comment on above: Performed By: #### L [id number] ####Telephone Lineman: LAURA BAUTISTA ([phone])[facility] HOSPITALRamón VARGAS [place] (SWRLAB)[address] [place] [address] Hematocrit (Bld) [Volume fraction] 37.2 % Normal 35.0-47.0 [facility] Comment on above: Performed By: #### L [id number] ####Telephone Lineman: LAURA BAUTISTA ([phone])[facility] HOSPITALRamón VARGAS [place] (SWRLAB)[address] [place] [address] Hemoglobin (Bld) [Mass/Vol] 12.2 g/dL Normal 11.7-16.0 [facility] Comment on above: Performed By: #### L [id number] ####Telephone Lineman: LAURA BAUTISTA ([phone])[place] (SWRLAB)[address] [place] [address] IMMATURE GRANS % 0.6 % Normal 0.0-2.0 [facility] Comment on above: Performed By: #### L [id number] ####Telephone Lineman: LAURA BAUTISTA ([phone])[facility] HOSPITALRamón VARGAS [place] (SWRLAB)[address] [place] [address] IMMATURE GRANS ABSOLUTE 0.1 10*3/uL High <0.1 [facility] Comment on above: Performed By: #### L [id number] ####Telephone Lineman: LAURA BAUTISTA ([phone])[facility] (SWRLAB)[address] [place] [address] [place] Lymphocytes (Bld) [#/Vol] 2.2 10*3/uL Normal 1.0-4.3 [facility] Comment on above: Performed By: #### L [id number] ####Telephone Lineman: LAURA BAUTISTA ([phone])[facility] HOSPITALRamón VARGAS [place] (SWRLAB)[address] [place] [address] [place] Lymphocytes/100 WBC (Bld) 28.6 % Normal 15.0-45.0 [facility] Comment on above: Performed By: #### L [id number] ####Telephone Lineman: LAURA BAUTISTA ([phone])[facility] HOSPITALRamón VARGAS [place] (SWRLAB)[address] [place] [address] MCH (RBC) [Entitic mass] 29.5 pg Normal 26.0-34.0 [facility] Comment on above: Performed By: #### L [id number] ####Telephone Lineman: LAURA BAUTISTA ([phone])[facility] HOSPITALRamón VARGAS [place] (SWRLAB)[address] [place] [address] MCHC 32.8 % Normal 30.5-36.0 [facility] Comment on above: Performed By: #### L [id number] ####Telephone Lineman: LAURA BAUTISTA ([phone])[facility] HOS[facility]ITALRamón VARGAS [place] (SWRLAB)[address] [place] [address] MCV (RBC) [Entitic vol] 89.9 fL Normal 77.0-99.0 S [facility] Comment on above: Performed By: #### L [id number] ####Telephone Lineman: LAURA BAUTISTA ([phone])[facility] HOSPITALRamón VARGAS [place] (SWRLAB)[address] [place] [address] [place] Monocytes (Bld) [#/Vol] 1.1 10*3/uL High 0.0-0.9 [facility] Comment on above: Performed By: #### L [id number] ####Telephone Lineman: LAURA BAUTISTA ([phone])[facility] [place] (SWRLAB)[address] [place] [address] [place] Monocytes/100 WBC (Bld) 13.6 % High 5.0-13.0 [facility] Comment on above: Performed By: #### L [id number] ####Telephone Lineman: LAURA BAUTISTA ([phone])[place] (SWRLAB)[address] [place] [address] NEUTROPHILS ABSOLUTE 4.2 10*3/uL Normal 1.8-7.5 [facility] Comment on above: Performed By: #### L [id number] ####Telephone Lineman: LAURA BAUTISTA ([phone])[facility] (SWRLAB)[address] [place] [address] [place] Neutrophils/100 WBC (Bld) 53.2 % Normal 38.0-82.0 [facility] Comment on above: Performed By: #### L [id number] ####Telephone Lineman: LAURA BAUTISTA ([phone])[place] (SWRLAB)[address] [place] [address] NRBC 0.0 /100 WBCs Normal 0.0-2.0 [facility] Comment on above: Performed By: #### L [id number] ####Telephone Lineman: LAURA BAUTISTA ([phone])[facility] HOS[facility]ITALRamón VARGAS [place] (SWRLAB)[address] [place] [address] Platelet mean volume (Bld) [Entitic vol] 9.5 fL Normal 9.0-12.7 [facility] Comment on above: Result Comment: MPV is a calculated measurement using platelet volume ratio Performed By: #### L [id number] ####Telephone Lineman: LAURA BAUTISTA ([phone])[place] (SWRLAB)[address] [place] [address] [place] Platelets (Bld) [#/Vol] 314 10*3/uL Normal 140-440 [facility] Comment on above: Performed By: #### L [id number] ####Telephone Lineman: LAURA BAUTISTA ([phone])[facility] HOS[facility]ITALRamón VARGAS [place] (SWRLAB)[address] [place] [address] RBC (Bld) [#/Vol] 4.14 10*6/uL Normal 3.80-5.20 [facility] Comment on above: Performed By: #### L [id number] ####Telephone Lineman: LAURA BAUTISTA ([phone])[facility] HOSPITALRamón VARGAS [place] (SWRLAB)[address] [place] [address] WBC (Bld) [#/Vol] 7.8 10*3/uL Normal 3.6-10.7 [facility] Comment on above: Performed By: #### L [id number] ####Telephone Lineman: LAURA BAUTISTA ([phone])[facility] HOSPITALRamón VARGAS [place] (SWRLAB)[address] [place] [address] COMPREHENSIVE METABOLIC PANE Aamir 07-08-2024 Albumin [Mass/Vol] 3.5 g/dL Normal 3.4-4.8 [facility] Comment on above: Performed By: #### Jaky ABYolande, LAB17, [id number] ####Telephone Lineman: LAURA BAUTISTA ([phone])[facility] HOSPITALRamón VARGAS [place] (SWRLAB)[address] [place] [address] ALP [Catalytic activity/Vol] 66 U/L Normal 40-150 [facility] Comment on above: Performed By: #### L [id number], LAB17, [id number] ####Telephone Lineman: LAURA BAUTISTA ([phone])[facility] HOSPITALRamón VARGAS [place] (SWRLAB)[address] [place] [address] ALT [Catalytic activity/Vol] 18 U/L Normal <30 [facility] Comment on above: Performed By: #### L [id number], LAB17, [id number] ####Telephone Lineman: LAURA BAUTISTA ([phone])[facility] CENTERSAM [place] (SWRLAB)[address] [place] [address] [place] Anion gap [Moles/Vol] 10 mmol/L Normal 3-13 [facility] Comment on above: Performed By: #### L [id number], LAB17, [id number] ####Telephone Lineman: LAURA BAUTISTA ([phone])[facility] HOS[facility]ITALRamón VARGAS [place] (SWRLAB)[address] [place] [address] [place] AST [Catalytic activity/Vol] 23 U/L Normal <34 [facility] Comment on above: Performed By: #### L ABYolande, LAB17, [id number] ####Telephone Lineman: LAURA BAUTISTA ([phone])[facility] HOSPITALRamón VARGAS [place] (SWRLAB)[address] Bilirubin [Mass/Vol] 0.3 mg/dL Normal <1.2 [facility] Comment on above: Performed By: #### Jaky VACA, LAB17, [id number] ####Telephone Lineman: LAURA BAUTISTA ([phone])[facility] HOSPITALRamón VARGAS [place] (SWRLAB)[address] Calcium [Mass/Vol] 8.8 mg/dL Normal 8.8-10.0 [facility] Comment on above: Performed By: #### L ABYolande, LAB17, [id number] ####Telephone Lineman: LAURA BAUTISTA ([phone])[facility] HOSPITALRamón QUINTANILLASAM [place] (SWRLAB)[address] [place] [address] [place] Chloride [Moles/Vol] 110 mmol/L High 98-107 [facility] Comment on above: Performed By: #### L AB106, LAB17, [id number] ####Telephone Lineman: LAURA BAUTISTA ([phone])[facility] HOSPITALRamón QUINTANILLASAM [place] (SWRLAB)[address] [place] [address] [place] CO2 [Moles/Vol] 21 mmol/L Low 23-31 [facility] Comment on above: Performed By: #### L AB106, LAB17, [id number] ####Telephone Lineman: LAURA BAUTISTA ([phone])[facility] HOSPITALRamón VARGAS [place] (SWRLAB)[address] [place] [address] [place] Creatinine [Mass/Vol] 2.59 mg/dL High 0.57-1.11 [facility] Comment on above: Performed By: #### Jaky VACA, LAB17, [id number] ####Telephone Lineman: LAURA BAUTISTA ([phone])[facility] HOSPITALRamón VARGAS [place] (SWRLAB)[address] [place] [address] [place] GLOMERULAR FILTRATION RATE ML/MIN/1.73 SQ M.PREDICTED 20.4 mL/min/1.73m*2 Low >60.0 [facility] Comment on above: Result Comment: Calc ulation based on the Chronic Kidney Disease Epidemiology Collaboration (CKD-EPI) equation refit without adjustment for race Performed By: #### Jaky VACA, LAB17, [id number] ####Telephone Lineman: LAURA BAUTISTA ([phone])[facility] HOSPITALRamón VARGAS [place] (SWRLAB)[address] [place] [address] [place] Glucose [Mass/Vol] 242 mg/dL High 82-115 [facility] Comment on above: Performed By: #### Jaky VACA, LAB17, [id number] ####Telephone Lineman: LAURA BAUTISTA ([phone])[facility] HOSPITALRamón VARGAS [place] (SWRLAB)[address] [place] [address] [place] Potassium [Moles/Vol] 4.8 mmol/L Normal 3.5-5.1 [facility] Comment on above: Result Comment: [facility] potassium values may be up to 0.5 mmol/L lower than serum values. Performed By: #### Jaky VACA, LAB17, [id number] ####Telephone Lineman: LAURA BAUTISTA ([phone])[facility] HOSPITALRamón VARGAS [place] (SWRLAB)[address] [place] [address] [place] Protein [Mass/Vol] 7.3 g/dL Normal 6.4-8.3 [facility] Comment on above: Performed By: #### L AB106, LAB17, [id number] ####Telephone Lineman: LAURA BAUTISTA ([phone])[facility] HOSPITALRamón WARDTMAN (SWRLAB)[address] [place] [address] Sodium [Moles/Vol] 141 mmol/L Normal 136-145 [facility] Comment on above: Performed By: #### L AB106, LAB17, [id number] ####Telephone Lineman: LAURA BAUTISTA ([phone])[facility] CENTERASM [place] (SWRLAB)[address] [place] [address] Urea nitrogen [Mass/Vol] 59 mg/dL High 9-23 [facility] Comment on above: Performed By: #### L AB106, LAB17, [id number] ####Telephone Lineman: LAURA BAUTISTA ([phone])[facility] SAMGREGORIA POOLAN (SWRLAB)[address] [place] [address] ED Nursing Noteon 07-08-2024 ED Nursing Note Called report to Iesha on 4 . Normal [facility] ED Provider Noteon ED Provider Note Emergency Department Encounter [facility] ED Patient: Cinthya Castillo : 1960 Date of Evaluation: 07/08/2024 ED Provider: Grzegorz Guillen DO Chief Complaint Chief Complaint Patient presents with ? Chest Pain Pt c/o chest pain and shortness of breath for approx 2 hours ? Shortness of Breath ? 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 female [...] 12/11/2022 Performed by Micheal Silva MD at [address] ENDOSCOPY Social History Socioeconomic History ? [...] lead Collectio (more content not included)... Normal [facility] HIGH SENSITIVITY TROPONIN, S ERIAL BASELINEon 07-08-2024 TROPONIN HS SERIAL BASELINE 5 ng/L Normal <=14 [facility] Comment on above: Result Comment: In i ndividuals presenting with symptoms > 2h, a baseline troponin <= 5 ng/L suggests acute cardiac injury is unlikely and further serial testing is generally not indicated. Performed By: #### L AB106, LAB17, [id number] ####Telephone Lineman: LAURA BAUTISTA ([phone])[facility] HOSPITALRamón SAM [place] (SWRLAB)[address] [place] [address] [place] HIGH SENSITIVITY TROPONIN, S ERIAL, SECOND TESTon 07-08-2024 2H TROPONIN HS (SERIAL 2ND TROPONIN) 6 ng/L Normal <=14 [facility] Comment on above: Result Comment: Risi ng or falling troponin delta below 2 ng/L as compared to baseline value suggests that acute cardiac injury is unlikely. Performed By: #### L [id number] ####Telephone Lineman: LAURA BAUTISTA ([phone])[facility] HOSPITALRamón ebookpie [place]TM[place] (SWRLAB)[address] [place] [address] NT PRO BNPon 07-08-2024 Natriuretic peptide B (Bld) [Mass/Vol] 116 pg/mL Normal <125 [facility] Comment on above: Performed By: #### L AB106, LAB17, [id number] ####Telephone Lineman: LAURA BAUTISTA ([phone])[facility] HOSPITALRamón SAM [place] (SWRLAB)[address] [place] [address] Anion gap in Serum or Plasma Ordered By: Lex Roca on 07-04-2024 Anion gap [Moles/Vol] 12 mmol/L - [facility] BUN/creatinine ratioOrdered By: Lex Roca on 07-04-2024 Urea nitrogen/Creatinine [Mass ratio] 23.6 mg/mg High 10- [facility] Bilirubin, totalOrdered By: Lex Roca on 07-04-2024 Bilirubin [Mass/Vol] 0.32 mg/dL 0.00-1.30 [facility] Carbon dioxide, total [Moles /volume] in Central venous bloodOrdered By: Lex Roca on 07-04-2024 CO2 [Moles/Vol] 20.5 mmol/L Low 21.0-32.0 [facility] Chloride assayOrdered By: Sony Roca on 07-04-2024 Chloride [Moles/Vol] 108 mmol/L 98-108 [facility] ECG 12-LEADon 07-04-2024 ECG 12-LEAD IMPRESSION: Sinus rhythm Inferior infarct, old Electronically Signed On 07-04-2024 01:40:59 EDT by Mari Chen [facility] Erythrocyte distribution wid th ratioOrdered By: Lex Roca on 07-04-2024 Erythrocyte distribution width (RBC) [Ratio] 13.2 % 11.6-14.6 [facility] Erythrocyte distribution wid th standard deviationOrdered By: Lex Roca on 07-04-2024 Erythrocyte distribution width (RBC) [Ratio] 43.6 fl 35.1-43.9 [facility] Glomerular filtration rate ( GFR) estimation/1.73 sq m using serum, plasma, or whole bOrdered By: Lex Roca on 07-04-2024 GFR/1.73 sq M.predicted among non-blacks MDRD (S/P/Bld) [Vol rate/Area] 24 mL/min/{1.73_m2} Low >60 [facility] Comment on above: mL/min/1.73m2 CKD-EP I Creatinine Equation (2020) Hematocrit Auto (Bld) [Volum e fraction]Ordered By: Lex Roca on 07-04-2024 Hematocrit (Bld) [Volume fraction] 36.5 % Low 37-47 [facility] Hemoglobin measurementOrdere d By: Lex Roca on 07-04-2024 Hemoglobin (Bld) [Mass/Vol] 11.9 g/dL Low 12.0-15.0 [facility] Laboratory - Chemistry and C hemistry - challengeOrdered By: Lex Roca on 07-04-2024 AST [Catalytic activity/Vol] 23 U/L <32 [facility] MCV (mean corpuscular volume ) determinationOrdered By: Lex Roca on 07-04-2024 MCV (RBC) [Entitic vol] 91.0 fL 81-99 [facility] Mean corpuscular hemoglobin (MCH) determinationOrdered By: Lex Roca on 07-04-2024 MCH (RBC) [Entitic mass] 29.7 pg 27.0-32.0 [facility] Mean corpuscular hemoglobin concentration (MCHC) determinationOrdered By: Lex Roca on 07-04-2024 MCHC (RBC) [Mass/Vol] 32.6 g/dL 32-36 [facility] Mean platelet volume determi nationOrdered By: Lex Roca on 07-04-2024 Platelet mean volume (Bld) [Entitic vol] 9.8 fL 6.2-12.0 [facility] Natriuretic peptide.B prohor ace N-Terminal [Mass/volume] in Serum or PlasmaOrdered By: Lex Roca on 07-04-2024 Natriuretic peptide.B prohormone N-Terminal [Mass/Vol] 357 pg/mL <900 [facility] Comment on above: Heart Failure Unlike ly: < 300 pg/mLHeart Failure Likely< 50 Years: > 450 pg/mL50-75 Years: > 900 pg/mL>75 Years: > 1800 pg/mL Platelet countOrdered By: Sony Roca on 07-04-2024 Platelets (Bld) [#/Vol] 297 10*3/uL 150-450 [facility] [facility] Potassium measurement (mass/ volume)Ordered By: Lex Roca on 07-04-2024 Potassium (Unsp spec) [Mass/Vol] 4.3 mmol/L 3.3-5.1 [facility] RBC Auto (Bld) [#/Vol]Ordere d By: Lex Roca on 07-04-2024 RBC (Bld) [#/Vol] 4.01 10*6/uL Low 4.2-5.[address] [facility] Serum creatinine measurement (mass/volume)Ordered By: Lex Roca on 07-04-2024 Creatinine [Mass/Vol] 2.22 mg/dL High 0.70-1.20 [facility] Serum globulin measurementOr dered By: Lex Roca on 07-04-2024 Globulin (S) [Mass/Vol] 3.4 g/dL 2.2-4.2 [facility] Serum glucose measurement (m ass/volume)Ordered By: Lex Roca on 07-04-2024 Glucose [Mass/Vol] 88 mg/dL 70-99 [facility] Serum or plasma alanine daily otransferase (ALT) measurementOrdered By: Lex Roca on 07-04-2024 ALT [Catalytic activity/Vol] 10 U/L <35 [facility] Serum or plasma albumin aba urement (mass/volume)Ordered By: Lex Roca on 07-04-2024 Albumin [Mass/Vol] 3.6 g/dL 3.4-4.8 [facility] Serum or plasma albumin/glob ulin mass ratioOrdered By: Lex Roca on 07-04-2024 Albumin/Globulin [Mass ratio] 1.1 {ratio} 0.9-2.4 [facility] Serum or plasma alkaline tamir sphatase measurementOrdered By: Lex Roca on 07-04-2024 ALP [Catalytic activity/Vol] 66 U/L 35-104 [facility] Serum or plasma calcium aba urement (mass/volume)Ordered By: Lex Roca on 07-04-2024 Calcium [Mass/Vol] 9.0 mg/dL 7.6-11.0 [facility] Serum or plasma urea nitroge n measurement (mass/volume)Ordered By: Lex Roca on 07-04-2024 Urea nitrogen [Mass/Vol] 52 mg/dL High 4-19 [facility] Sodium levelOrdered By: Iban Roca on 07-04-2024 Sodium [Moles/Vol] 141 mmol/L 133-145 [facility] Total proteinOrdered By: Tony Roca on 07-04-2024 Protein [Mass/Vol] 7.0 g/dL 5.9-8.4 [facility] Troponin T.cardiac [Mass/vol ume] in Serum or Plasma by High sensitivity methodOrdered By: Lex Roca on 07-04-2024 Troponin T.cardiac High sensitivity method [Mass/Vol] 33 ng/L High <14 [facility] White blood cell (WBC) count Ordered By: Lex Roca on 07-04-2024 WBC (Bld) [#/Vol] 7.5 10*3/uL 4.4-11.0 [facility] BASIC METABOLIC PANELon 06-20 Anion gap [Moles/Vol] 10 mmol/L Normal 3-13 [facility] Comment on above: Performed By: #### L [id number], [id number] ####Telephone Lineman: LAURA BAUTISTA ([phone])[facility] ([facility])[address] [place] [address] [place] Calcium [Mass/Vol] 8.7 mg/dL Low 8.8-10.0 [facility] Comment on above: Performed By: #### L [id number], [id number] ####Telephone Lineman: LAURA BAUTISTA ([phone])[facility]ITALRam[facility] VARGAS [facility] (SWRL[facility])[address] [place] [address] [place] Chloride [Moles/Vol] 112 mmol/L High 98-107 [facility] Comment on above: Performed By: #### L [id number], [id number] ####Telephone Lineman: LAURA BAUTISTA ([phone])[facility] HOSPITALRamón QUINTANILLASAM RITTMAN (SWRLAB)[address] [place] [address] [place] CO2 [Moles/Vol] 19 mmol/L Low 23-31 [facility] Comment on above: Performed By: #### L [id number], [id number] ####Telephone Lineman: LAURA BAUTISTA ([phone])[facility]OS[facility]ITALRamón VARG[facility] ([facility])[address] [place] [address] [place] Creatinine [Mass/Vol] 2.14 mg/dL High 0.57-1.11 [facility] Comment on above: Performed By: #### L [id number], [id number] ####Telephone Lineman: LAURA BAUTISTA ([phone])[facility]ITALRamón [facility] ([facility])[address] [place] [address] [place] GLOMERULAR FILTRATION RATE ML/MIN/1.73 SQ M.PREDICTED 25.6 mL/min/1.73m*2 Low >60.0 [facility] Comment on above: Result Comment: Calc ulation based on the Chronic Kidney Disease Epidemiology Collaboration (CKD-EPI) equation refit without adjustment for race Performed By: #### L [id number], [id number] ####Telephone Lineman: LAURA BAUTISTA ([phone])[facility]ITALRamón [facility] ([facility])[address] [place] [address] [place] Glucose [Mass/Vol] 121 mg/dL High 82-115 [facility] Comment on above: Performed By: #### L [id number], [id number] ####Telephone Lineman: LAURA BAUTISTA ([phone])[facility]OS[facility]ITALRamón VARG[facility] (SWRL[facility])[address] Potassium [Moles/Vol] 5.1 mmol/L Normal 3.5-5.1 [facility] Comment on above: Result Comment: [facility] potassium values may be up to 0.5 mmol/L lower than serum values. Performed By: #### L [id number], [id number] ####Telephone Lineman: LAURA BAUTISTA ([phone])[facility] HOSPITALRamón WARDTM[facility] (SWRL[facility])[address] [place] [address] Sodium [Moles/Vol] 141 mmol/L Normal 136-145 [facility] Comment on above: Performed By: #### L [id number], [id number] ####Telephone Lineman: LAURA BAUTISTA ([phone])[facility]OS[facility]ITALRam[facility] (SWRL[facility])[address] [place] [address] Urea nitrogen [Mass/Vol] 58 mg/dL High 9-23 [facility] Comment on above: Performed By: #### L [id number], [id number] ####Telephone Lineman: LAURA BAUTISTA ([phone])[facility]ITALRamón [facility] (SW[facility])[address] [place] [address] CBC WITH AUTO DIFFERENTIALon 07-03-2024 Basophils (Bld) [#/Vol] 0.1 10*3/uL Normal 0.0-0.2 [facility] Comment on above: Performed By: #### L [id number] ####Telephone Lineman: LAURA BAUTISTA ([phone])[facility]ITALRamón [facility] ([facility])[address] [place] [address] [place] Basophils/100 WBC (Bld) 0.6 % Normal 0.0-2.0 [facility] Comment on above: Performed By: #### L [id number] ####Telephone Lineman: LAURA BAUTISTA ([phone])[facility]ITALRamón [facility] ([facility])[address] [place] [address] Eosinophils (Bld) [#/Vol] 0.3 10*3/uL Normal 0.0-0.5 [facility] Comment on above: Performed By: #### L [id number] ####Telephone Lineman: LAURA BAUTISTA ([phone])[facility]ITALRamón [facility] ([facility])[address] [place] [address] Eosinophils/100 WBC (Bld) 3.0 % Normal 0.0-6.0 [facility] Comment on above: Performed By: #### L [id number] ####Telephone Lineman: LAURA BAUTISTA ([phone])[facility]ITALRamón [facility] ([facility])[address] [place] [address] Erythrocyte distribution width (RBC) [Ratio] 13.1 % Normal 11.5-15.0 [facility] Comment on above: Performed By: #### L [id number] ####Telephone Lineman: LAURA BAUTISTA ([phone])[facility]ITALRamón [facility] ([facility])[address] [place] [address] Hematocrit (Bld) [Volume fraction] 36.5 % Normal 35.0-47.0 [facility] Comment on above: Performed By: #### L [id number] ####Telephone Lineman: LAURA BAUTISTA ([phone])[facility]ITALRamón [facility] ([facility]RL[facility])[address] [place] [address] Hemoglobin (Bld) [Mass/Vol] 11.6 g/dL Low 11.7-16.0 [facility] Comment on above: Performed By: #### L [id number] ####Telephone Lineman: LAURA BAUTISTA ([phone])[facility]ITALRamón [facility] ([facility])[address] [place] [address] IMMATURE GRANS % 0.2 % Normal 0.0-2.0 [facility] Comment on above: Performed By: #### L [id number] ####Telephone Lineman: LAURA BAUTISTA ([phone])[facility]ITALRamón [facility] ([facility])[address] [place] [address] IMMATURE GRANS ABSOLUTE 0.0 10*3/uL Normal <0.1 [facility] Comment on above: Performed By: #### L [id number] ####Telephone Lineman: LAURA BAUTISTA ([phone])[facility]ITALRamón [facility] ([facility])[address] [place] [address] Lymphocytes (Bld) [#/Vol] 2.1 10*3/uL Normal 1.0-4.3 [facility] Comment on above: Performed By: #### L [id number] ####Telephone Lineman: LAURA BAUTISTA ([phone])[facility]ITALRamón [facility] ([facility])[address] [place] [address] [place] Lymphocytes/100 WBC (Bld) 22.7 % Normal 15.0-45.0 [facility] Comment on above: Performed By: #### L [id number] ####Telephone Lineman: LAURA BAUTISTA ([phone])[facility]ITALRamón [facility] ([facility])[address] [place] [address] MCH (RBC) [Entitic mass] 28.7 pg Normal 26.0-34.0 [facility] Comment on above: Performed By: #### L [id number] ####Telephone Lineman: LAURA BAUTISTA ([phone])[facility]ITALRamón [facility] ([facility])[address] [place] [address] MCHC 31.8 % Normal 30.5-36.0 [facility] Comment on above: Performed By: #### L [id number] ####Telephone Lineman: LAURA BAUTISTA ([phone])[facility]ITALRamón [facility] ([facility])[address] [place] [address] MCV (RBC) [Entitic vol] 90.3 fL Normal 77.0-99.0 [facility] Comment on above: Performed By: #### L [id number] ####Telephone Lineman: LAURA BAUTISTA ([phone])[facility] ([facility])[address] [place] [address] [place] Monocytes (Bld) [#/Vol] 0.8 10*3/uL Normal 0.0-0.9 [facility] Comment on above: Performed By: #### L [id number] ####Telephone Lineman: LAURA BAUTISTA ([phone])[facility]ITALA SAM [facility] (SW[facility])[address] [place] [address] [place] Monocytes/100 WBC (Bld) 9.0 % Normal 5.0-13.0 [facility] Comment on above: Performed By: #### L [id number] ####Telephone Lineman: LAURA BAUTISTA ([phone])[facility]ITALA SAM [facility] ([facility])[address] [place] [address] [place] NEUTROPHILS ABSOLUTE 6.1 10*3/uL Normal 1.8-7.5 [facility] Comment on above: Performed By: #### L [id number] ####Telephone Lineman: LAURA BAUTISTA ([phone])[facility]ITALRamón QUINTANILLASAM RITTMAN (SWRL[facility])[address] [place] [address] [place] Neutrophils/100 WBC (Bld) 64.5 % Normal 38.0-82.0 [facility] Comment on above: Performed By: #### L [id number] ####Telephone Lineman: LAURA BAUTISTA ([phone])[facility]ITALA SAM [facility] ([facility])[address] [place] [address] [place] NRBC 0.0 /100 WBCs Normal 0.0-2.0 [facility] Comment on above: Performed By: #### L [id number] ####Telephone Lineman: LAURA BAUTISTA ([phone])[facility]ITALA SAM [facility] ([facility])[address] Platelet mean volume (Bld) [Entitic vol] 9.5 fL Normal 9.0-12.7 [facility] Comment on above: Result Comment: MPV is a calculated measurement using platelet volume ratio Performed By: #### L [id number] ####Telephone Lineman: LAURA BAUTISTA ([phone])[facility]ITALRamón [facility] ([facility])[address] [place] [address] [place] Platelets (Bld) [#/Vol] 320 10*3/uL Normal 140-440 [facility] Comment on above: Performed By: #### L [id number] ####Telephone Lineman: LAURA BAUTISTA ([phone])[facility]ITALRam[facility] ([facility])[address] [place] [address] RBC (Bld) [#/Vol] 4.04 10*6/uL Normal 3.80-5.20 [facility] Comment on above: Performed By: #### L [id number] ####Telephone Lineman: LAURA BAUTISTA ([phone])[facility]ITALRam[facility] ([facility])[address] [place] [address] WBC (Bld) [#/Vol] 9.4 10*3/uL Normal 3.6-10.7 [facility] Comment on above: Performed By: #### L [id number] ####Telephone Lineman: LAURA BAUTISTA ([phone])[facility]ITALRamón [facility] ([facility])[address] [place] [address] CT CHEST ABDOMEN PELVIS KYA OGRAM W [...] at a high flow rate 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 Multiplanar and 3D MIP reconstruction was [...] pain as of today. Reports SOB, Normal [facility] ED Nursing Noteon 07-03-2024 ED Nursing Note Pt to ED with complaints of chest pain that worsens with deep breaths starting this morning. Also complaining of bilateral leg pain and lower back pain as of today. Reports SOB, pt talking in complete sentences in triage Normal [facility] ED Provider Noteon ED Provider Note EMERGENCY [...] 12/11/2022 Performed by Micheal Silva MD at [facility] CURRENT MEDICATIONS Previous Medications ACETAMINOPHEN [...] observed. P (more content not included)... Normal [facility] HIGH SENSITIVITY TROPONIN, S ERIAL BASELINEon 07-03-2024 TROPONIN HS SERIAL BASELINE 4 ng/L Normal <=14 [facility] Comment on above: Result Comment: In i ndividuals presenting with symptoms > 2h, a baseline troponin <= 5 ng/L suggests acute cardiac injury is unlikely and further serial testing is generally not indicated. Performed By: #### L [id number], [id number] ####Telephone Lineman: LAURA BAUTISTA ([phone])[facility] [employer] (SWRL[employer])[address] [place] [address] HIGH SENSITIVITY TROPONIN, S ERIAL, SECOND TESTon 07-03-2024 2H TROPONIN HS (SERIAL 2ND TROPONIN) 6 ng/L Normal <=14 [facility] Comment on above: Result Comment: Risi ng or falling troponin delta below 2 ng/L as compared to baseline value suggests that acute cardiac injury is unlikely. Performed By: #### L [id number] ####Telephone Lineman: LAURA BAUTISTA ([phone])[facility] flu[employer]TM[employer] (SWRLAB)[address] [place] [address] HIGH SENSITIVITY TROPONIN, S ERIAL, THIRD TESTon 07-03-2024 4H TROPONIN HS (SERIAL 3RD TROPONIN) 5 ng/L Normal <=14 [facility] Comment on above: Result Comment: Risi ng or falling troponin delta below 2 ng/L as compared to 2h troponin value suggests that acute cardiac injury is unlikely. Performed By: #### L [id number] ####Telephone Lineman: LAURA BAUTISTA ([phone])[facility] flu[employer]TM[employer] (SWRLAB)[address] [place] [address] Trough vancomycin levelOrder ed By: Lex Roca on 06-23-2024 Vancomycin trough [Mass/Vol] 9.5 ug/mL 5.0-15.0 [facility] Comment on above: Recommended goal tro ugh [...] therapy recommended for serious lifethreatening infections include:- Aittxzjtdp-Utjrbhjitcuw-Nnyifkmlv (Ventilator/Healtcare Associated)-Sepsis PLEASE CONTACT PHARMACY SERVICES (#[phone]) FOR INTERPRETATIONOF RESULTS. Hemoglobin A1c percentageOrd ered By: Lex Roca on 05-03-2024 HbA1c (Bld) [Mass fraction] 7.6 % High 3.8-5.6 [facility] Comment on above: Normal < 5.7 % Predi abetic 5.7 - 6.4 % Diabetic >or= 6.5 % Please note range changes. Blood urea nitrogen (BUN)/cr eatinine ratioOrdered By: Lex Roca on 04-26-2024 Urea nitrogen/Creatinine [Mass ratio] 30.4 mg/mg High 10-20 [facility] Carbon dioxide measurementOr dered By: Lex Roca on 04-26-2024 CO2 [Moles/Vol] 23.0 mmol/L 21.0-32.0 [facility] Chloride measurementOrdered By: Lex Roca on 04-26-2024 Chloride [Moles/Vol] 111 mmol/L High 98-107 [facility] Erythrocyte distribution wid th ratioOrdered By: Lex Roca on 04-26-2024 Erythrocyte distribution width (RBC) [Ratio] 12.7 % 11.6-14.6 [facility] Erythrocyte distribution wid th standard deviationOrdered By: Lex Roca on 04-26-2024 Erythrocyte distribution width (RBC) [Ratio] 43.2 fl 35.1-43.9 [facility] Glomerular filtration rate ( GFR) estimationOrdered By: Lex Roca on 04-26-2024 GFR/1.73 sq M.predicted among non-blacks MDRD (S/P/Bld) [Vol rate/Area] 25 mL/min/{1.73_m2} Low >60 [facility] Comment on above: Non- GFR Calc Glucose measurementOrdered B y: Lex Roca on 04-26-2024 Glucose [Mass/Vol] 167 mg/dL High 74-106 [facility] Comment on above: Fasting Glucose resu lt greater than or equal to 126 mg/dL suggests DIABETES MELLITUS per A.D.A. criteria. Hematocrit Auto (Bld) [Volum e fraction]Ordered By: Lex Roca on 04-26-2024 Hematocrit (Bld) [Volume fraction] 37.6 % 37-47 [facility] Hemoglobin measurementOrdere d By: Lex Roca on 04-26-2024 Hemoglobin (Bld) [Mass/Vol] 11.9 g/dL Low 12.0-15.0 [facility] MCV (mean corpuscular volume ) determinationOrdered By: Lex Roca on 04-26-2024 MCV (RBC) [Entitic vol] 93.8 fL 81-99 [facility] Mean corpuscular hemoglobin (MCH) determinationOrdered By: Lex Roca on 04-26-2024 MCH (RBC) [Entitic mass] 29.7 pg 27.0-32.0 [facility] Mean corpuscular hemoglobin concentration (MCHC) determinationOrdered By: Lex Roca on 04-26-2024 MCHC (RBC) [Mass/Vol] 31.6 g/dL Low 32-36 [facility] Mean platelet volume determi nationOrdered By: Lex Roca on 04-26-2024 Platelet mean volume (Bld) [Entitic vol] 10.1 fL 6.2-12.0 [facility] Platelet countOrdered By: Sony Roca on 04-26-2024 Platelets (Bld) [#/Vol] 337 10*3/uL 150-450 [facility] Potassium measurementOrdered By: Lex Roca on 04-26-2024 Potassium [Moles/Vol] 4.6 mmol/L 3.5-5.1 [facility] RBC Auto (Bld) [#/Vol]Ordere d By: Lex Roca on 04-26-2024 RBC (Bld) [#/Vol] 4.01 10*6/uL Low 4.2-5.[address] [facility] Serum anion gap measurementO rdered By: Lex Roca on 04-26-2024 Anion gap [Moles/Vol] 6 mmol/L 5-15 [facility] Serum or plasma calcium aba urement (mass/volume)Ordered By: Lex Roca on 04-26-2024 Calcium [Mass/Vol] 8.7 mg/dL 8.5-10.1 [facility] Serum or plasma creatinine m easurement (mass/volume)Ordered By: Lex Roca on 04-26-2024 Creatinine [Mass/Vol] 2.14 mg/dL High 0.55-1.02 [facility] Comment on above: The validity of the calculated GFR & GFRAA in patients over 70 years has not been determined. Clinical correlation is essential. Serum or plasma urea nitroge n measurement (mass/volume)Ordered By: Lex Roca on 04-26-2024 Urea nitrogen [Mass/Vol] 65 mg/dL High 7-18 [facility] Sodium levelOrdered By: Iban Roca on 04-26-2024 Sodium [Moles/Vol] 140 mmol/L 136-145 [facility] White blood cell (WBC) count Ordered By: Lex Roca on 04-26-2024 WBC (Bld) [#/Vol] 7.5 10*3/uL 4.4-11.0 [facility] Blood urea nitrogen (BUN)/cr eatinine ratioOrdered By: Lex Roca on 04-24-2024 Urea nitrogen/Creatinine [Mass ratio] 27.1 mg/mg High 10-20 [facility] Carbon dioxide measurementOr dered By: Lex Roca on 04-24-2024 CO2 [Moles/Vol] 21.0 mmol/L 21.0-32.0 [facility] Chloride measurementOrdered By: Lex Roca on 04-24-2024 Chloride [Moles/Vol] 109 mmol/L High 98-107 [facility] Glomerular filtration rate ( GFR) estimationOrdered By: Lex Roca on 04-24-2024 GFR/1.73 sq M.predicted among non-blacks MDRD (S/P/Bld) [Vol rate/Area] 22 mL/min/{1.73_m2} Low >60 [facility] Comment on above: Non- GFR Calc Glucose measurementOrdered B y: Lex Roca on 04-24-2024 Glucose [Mass/Vol] 304 mg/dL High 74-106 [facility] Comment on above: Glucose result great er than or equal to 200 mg/dLsuggests DIABETES MELLITUS per A.D.A. criteria. Potassium measurementOrdered By: Lex Roca on 04-24-2024 Potassium [Moles/Vol] 5.1 mmol/L 3.5-5.1 [facility] Serum anion gap measurementO rdered By: Lex Roca on 04-24-2024 Anion gap [Moles/Vol] 7 mmol/L 5-15 [facility] Serum or plasma calcium aba urement (mass/volume)Ordered By: Lex Roca on 04-24-2024 Calcium [Mass/Vol] 8.4 mg/dL Low 8.5-10.1 [facility] Serum or plasma creatinine m easurement (mass/volume)Ordered By: Lex Roca on 04-24-2024 Creatinine [Mass/Vol] 2.40 mg/dL High 0.55-1.02 [facility] Comment on above: The validity of the calculated GFR & GFRAA in patients over 70 years has not been determined. Clinical correlation is essential. Serum or plasma urea nitroge n measurement (mass/volume)Ordered By: Lex Roca on 04-24-2024 Urea nitrogen [Mass/Vol] 65 mg/dL High 7-18 [facility] Sodium levelOrdered By: Iban Roca on 04-24-2024 Sodium [Moles/Vol] 137 mmol/L 136-145 [facility] Blood urea nitrogen (BUN)/cr eatinine ratioOrdered By: eLx Roca on 04-19-2024 Urea nitrogen/Creatinine [Mass ratio] 24.9 mg/mg High 10-20 [facility] Carbon dioxide measurementOr dered By: Lex Roca on 04-19-2024 CO2 [Moles/Vol] 22.0 mmol/L 21.0-32.0 [facility] Chloride measurementOrdered By: Lex Roca on 04-19-2024 Chloride [Moles/Vol] 110 mmol/L High 98-107 [facility] Erythrocyte distribution wid th ratioOrdered By: Lex Roca on 04-19-2024 Erythrocyte distribution width (RBC) [Ratio] 12.5 % 11.6-14.6 [facility] Erythrocyte distribution wid th standard deviationOrdered By: Lex Roca on 04-19-2024 Erythrocyte distribution width (RBC) [Ratio] 42.7 fl 35.1-43.9 [facility] Glomerular filtration rate ( GFR) estimationOrdered By: Lex Roca on 04-19-2024 GFR/1.73 sq M.predicted among non-blacks MDRD (S/P/Bld) [Vol rate/Area] 24 mL/min/{1.73_m2} Low >60 [facility] Comment on above: Non- GFR Calc Glucose measurementOrdered B y: Lex Roca on 04-19-2024 Glucose [Mass/Vol] 201 mg/dL High 74-106 [facility] Comment on above: Glucose result great er than or equal to 200 mg/dLsuggests DIABETES MELLITUS per A.D.A. criteria. Hematocrit Auto (Bld) [Volum e fraction]Ordered By: Lex Roca on 04-19-2024 Hematocrit (Bld) [Volume fraction] 37.1 % 37-47 [facility] Hemoglobin A1c percentageOrd ered By: Lex Roca on 04-19-2024 HbA1c (Bld) [Mass fraction] 7.2 % High 3.8-5.6 [facility] Comment on above: Normal < 5.7 % Predi abetic 5.7 - 6.4 % Diabetic >or= 6.5 % Please note range changes. Hemoglobin measurementOrdere d By: Lex Roca on 04-19-2024 Hemoglobin (Bld) [Mass/Vol] 11.4 g/dL Low 12.0-15.0 [facility] High density lipoprotein (HD L) measurementOrdered By: Lex Roca on 04-19-2024 Cholesterol in HDL [Mass/Vol] 42 mg/dL >40 [facility] Comment on above: The drugs N-Acetylcy steine and Metamizole may falsely depress this assay. Reference Range HDL <40 mg/dL Low HDL Cholesterol HDL >or= 60 mg/dL High HDL Cholesterol Low density lipoprotein (LDL ) cholesterol measurementOrdered By: Lex Roca on 04-19-2024 Cholesterol in LDL [Mass/Vol] 53 mg/dL 0-130 [facility] MCV (mean corpuscular volume ) determinationOrdered By: Lex Roca on 04-19-2024 MCV (RBC) [Entitic vol] 92.5 fL 81-99 [facility] Mean corpuscular hemoglobin (MCH) determinationOrdered By: Lex Roca on 04-19-2024 MCH (RBC) [Entitic mass] 28.4 pg 27.0-32.0 [facility] Mean corpuscular hemoglobin concentration (MCHC) determinationOrdered By: Lex Roca on 04-19-2024 MCHC (RBC) [Mass/Vol] 30.7 g/dL Low 32-36 [facility] Mean platelet volume determi nationOrdered By: Lex Roca on 04-19-2024 Platelet mean volume (Bld) [Entitic vol] 9.9 fL 6.2-12.0 [facility] Platelet countOrdered By: Sony Roca on 04-19-2024 Platelets (Bld) [#/Vol] 318 10*3/uL 150-450 [facility] Potassium measurementOrdered By: Lex Roca on 04-19-2024 Potassium [Moles/Vol] 5.0 mmol/L 3.5-5.1 [facility] RBC Auto (Bld) [#/Vol]Ordere d By: Lex Roca on 04-19-2024 RBC (Bld) [#/Vol] 4.01 10*6/uL Low 4.2-5.[address] [facility] Serum anion gap measurementO rdered By: Lex Roca on 04-19-2024 Anion gap [Moles/Vol] 9 mmol/L 5-15 [facility] Serum or plasma calcium aba urement (mass/volume)Ordered By: Lex Roca on 04-19-2024 Calcium [Mass/Vol] 9.1 mg/dL 8.5-10.1 [facility] Serum or plasma cholesterol measurement (mass/volume)Ordered By: Lex Roca on 04-19-2024 Cholesterol [Mass/Vol] 120 mg/dL <200 [facility] Comment on above: <200 mg/dL Desirable 200-240 mg/dL Borderline >240 mg/dL High Risk Serum or plasma creatinine m easurement (mass/volume)Ordered By: Lex Roca on 04-19-2024 Creatinine [Mass/Vol] 2.17 mg/dL High 0.55-1.02 [facility] Comment on above: The validity of the calculated GFR & GFRAA in patients over 70 years has not been determined. Clinical correlation is essential. Serum or plasma thyroid stim ulating hormone (TSH) measurement (units/volume)Ordered By: Lex Roca on 04-19-2024 TSH Qn 2.570 uIU/mL 0.358-3.740 [facility] Serum or plasma urea nitroge n measurement (mass/volume)Ordered By: Lex Roca on 04-19-2024 Urea nitrogen [Mass/Vol] 54 mg/dL High 7-18 [facility] Sodium levelOrdered By: Iban Roca on 04-19-2024 Sodium [Moles/Vol] 141 mmol/L 136-145 [facility] Triglycerides measurementOrd ered By: Lex Roca on 04-19-2024 Triglyceride [Mass/Vol] 124 mg/dL <199 [facility] Comment on above: The drugs N-Acetylcy steine and Metamizole may falsely depress this assay.Serum Triglycerides Reference Interval Normal <150 mg/dL Borderline high 150 - 199 mg/dL High 200 - 499 mg/dL Very High > or = 500 mg/dL Very low density lipoprotein (VLDL) cholesterol measurementOrdered By: Lex Roca on 04-19-2024 Very low density lipoprotein (VLDL) cholesterol measurement 25 mg/dL 5-40 [facility] White blood cell (WBC) count Ordered By: Lex Roca on 04-19-2024 WBC (Bld) [#/Vol] 8.0 10*3/uL 4.4-11.0 [facility] Blood urea nitrogen (BUN)/cr eatinine ratioOrdered By: Lex Roca on 04-10-2024 Urea nitrogen/Creatinine [Mass ratio] 25.2 mg/mg High 10-20 [facility] Carbon dioxide measurementOr dered By: Lex Roca on 04-10-2024 CO2 [Moles/Vol] 22.0 mmol/L 21.0-32.0 [facility] Chloride measurementOrdered By: Lex Roca on 04-10-2024 Chloride [Moles/Vol] 111 mmol/L High 98-107 [facility] Glomerular filtration rate ( GFR) estimationOrdered By: Lex Roca on 04-10-2024 GFR/1.73 sq M.predicted among non-blacks MDRD (S/P/Bld) [Vol rate/Area] 25 mL/min/{1.73_m2} Low >60 [facility] Comment on above: Non- GFR Calc Glucose measurementOrdered B y: Lex Roca on 04-10-2024 Glucose [Mass/Vol] 110 mg/dL High 74-106 [facility] Comment on above: Fasting Glucose resu lt from 100 to 125 mg/dL suggests IMPAIRED HOMEOSTASIS per A.D.A. criteria. Potassium measurementOrdered By: Lex Roca on 04-10-2024 Potassium [Moles/Vol] 4.5 mmol/L 3.5-5.1 [facility] Serum anion gap measurementO rdered By: Lex Roca on 04-10-2024 Anion gap [Moles/Vol] 6 mmol/L 5-15 [facility] Serum or plasma calcium aba urement (mass/volume)Ordered By: Lex Roca on 04-10-2024 Calcium [Mass/Vol] 8.7 mg/dL 8.5-10.1 [facility] Serum or plasma creatinine m easurement (mass/volume)Ordered By: Lex Roca on 04-10-2024 Creatinine [Mass/Vol] 2.14 mg/dL High 0.55-1.02 [facility] Comment on above: The validity of the calculated GFR & GFRAA in patients over 70 years has not been determined. Clinical correlation is essential. Serum or plasma urea nitroge n measurement (mass/volume)Ordered By: Lex Roca on 04-10-2024 Urea nitrogen [Mass/Vol] 54 mg/dL High 7-18 [facility] Sodium levelOrdered By: Iban Roca on 04-10-2024 Sodium [Moles/Vol] 139 mmol/L 136-145 [facility] DBT Breast - bilateral scree [place] 09-08-2023 No mammographic evidence of malignancy. ASSESSMENT: [...] Electronically Signed Date/Time: 09/08/2023 3:04 PM EDT [facility] Patient Name: CINTHYA CASTILLO : 1960 Exam Date/Time: 09/08/2023 14:09 Procedure: BI MAMMOGRAM SCREENING TOMOSYNTHESIS BILATERAL Ordering Provider: ROCA THOMAS Reason For Exam: z12.31 Image views: 2D Bilateral CC and MLO views were acquired. 3D Bilateral CC and MLO views were acquired. Images were reviewed with CAD. Markings on images: BB's = Nipples; skin lesions Open upper mattaponi = Palpable Line = Scar COMPARISON: 05/20/2021, 05/21/2022 TISSUE DENSITY: BIRADS B - There are scattered fibroglandular densities. FINDINGS: No suspicious masses, architectural distortions or suspiciously clustered microcalcifications are identified. There is no evidence of skin thickening or nipple retraction. There are no significant changes when compared with prior studies. [facility] Alanis Redd MD - 09/08/2023 Patient Name: CINTHYA CASTILLO : 1960 Exam Date/Time: 09/08/2023 14:09 Procedure: BI MAMMOGRAM SCREENING TOMOSYNTHESIS BILATERAL Ordering Provider: ROCA THOMAS Reason For Exam: z12.31 Image views: 2D Bilateral CC and MLO views were acquired. 3D Bilateral CC and MLO views were acquired. Images were reviewed with CAD. Markings on images: BB's = Nipples; skin lesions Open upper mattaponi = Palpable Line = Scar COMPARISON: 05/20/2021, [...] of this examination. LIFETIME BREAST CANCER RISK: Tyrer-Hermanzick: 9.88% - If greater than or equal [...] Electronically Signed Date/Time: 09/08/2023 3:04 PM EDT [facility] Radiology Study observation (narrative) [facility] DBT Breast - bilateral scree ningOrdered By: Alanis Redd on 09-08-2023 [facility] Work Phone: Basic metabolic 1998 panelon 09-07-2023 Anion gap [Moles/Vol] 13 mmol/L 3 - 13 mmol/L [facility] Calcium [Mass/Vol] 9.2 mg/dL 8.4 - 10. 4 mg/dL [facility] Chloride [Moles/Vol] 106 mmol/L 98 - 10 7 mmol/L [facility] CO2 [Moles/Vol] 21 mmol/L Low 22 - 30 mmol/L [facility] Creatinine [Mass/Vol] 2.00 mg/dL High 0.52 - 1.04 mg/dL [facility] GFR/1.73 sq M.predicted MDRD (S/P/Bld) [Vol rate/Area] 28.0 mL/min/{1.73_m2} Low - PINF [facility] Comment on above: Calculation based on the Chronic Kidney Disease Epidemiology Collaboration (CKD-EPI) equation refit without adjustment for race Glucose [Mass/Vol] 122 mg/dL High 70 - 100 mg/dL [facility] Interpretation and review of laboratory results Abnormal [facility] Potassium [Moles/Vol] 4.1 mmol/L 3.5 - 5.1 mmol/L [facility] Sodium [Moles/Vol] 140 mmol/L 135 - 145 mmol/L [facility] Urea nitrogen [Mass/Vol] 42 mg/dL High 7 - 17 mg/dL [facility] CBC W Auto Differential pane l (Bld)on 09-07-2023 Basophils (Bld) [#/Vol] 0.1 10*3/uL 0.0 - 0.2 10*3/uL [facility] Basophils/100 WBC (Bld) 0.5 % 0.0 - 2.0 % [facility] Eosinophils (Bld) [#/Vol] 0.1 10*3/uL 0.0 - 0.5 10*3/uL [facility] Eosinophils/100 WBC (Bld) 1.0 % 0.0 - 6.0 % [facility] Erythrocyte distribution width (RBC) [Ratio] 12.7 % 11.5 - 15.0 % [facility] Hematocrit (Bld) [Volume fraction] 38.4 % 35.0 - 47.0 % [facility] Hemoglobin (Bld) [Mass/Vol] 12.7 g/dL 11.7 - 16.0 g/dL [facility] Immature granulocytes (Bld) [#/Vol] 0.1 10*3/uL High NINF - 0.1 10*3/uL [facility] Immature granulocytes/100 WBC (Bld) 0.5 % 0.0 - 2.0 % [facility] Interpretation and review of laboratory results Abnormal [facility] Lymphocytes (Bld) [#/Vol] 2.2 10*3/uL 1.0 - 4.3 10*3/uL [facility] Lymphocytes/100 WBC (Bld) 23.3 % 15.0 - 45.0 % [facility] MCH (RBC) [Entitic mass] 29.7 pg 26.0 - 34.0 pg [facility] MCHC (RBC) [Mass/Vol] 33.1 % 30.5 - 36.0 % [facility] MCV (RBC) [Entitic vol] 89.7 fL 77.0 - 99.0 fL [facility] Monocytes (Bld) [#/Vol] 1.1 10*3/uL High 0.0 - 0.9 10*3/uL [facility] Monocytes/100 WBC (Bld) 11.4 % 5.0 - 13.0 % [facility] Neutrophils (Bld) [#/Vol] 5.9 10*3/uL 1.8 - 7.5 10*3/uL [facility] Neutrophils/100 WBC (Bld) 63.3 % 38.0 - 82.0 % [facility] Nucleated RBC/100 WBC (Bld) [Ratio] 0.0 % [facility] Platelet mean volume (Bld) [Entitic vol] 9.5 fL 9.0 - 12.7 fL [facility] Platelets (Bld) [#/Vol] 344 10*3/uL 140 - 440 10*3/uL [facility] RBC (Bld) [#/Vol] 4.28 10*6/uL 3.80 - 5.2 0 10*6/uL [facility] WBC (Bld) [#/Vol] 9.3 10*3/uL 3.6 - 10.7 10*3/uL [facility] Laboratory - Chemistry and C hemistry - challengeon 09-07-2023 Troponin I.cardiac [Mass/Vol] 0.015 ng/mL [facility] - 0.034 ng/mL [facility] Troponin I.cardiac [Mass/Vol] 0.013 ng/mL [facility] - 0.034 ng/mL [facility] Natriuretic peptide B [Mass/ Vol]on 09-07-2023 Interpretation and review of laboratory results Abnormal [facility] Natriuretic peptide B (Bld) [Mass/Vol] 1110 pg/mL High <20 - 300 [facility] No Panel Informationon 09-06 [facility] Sinus rhythm 79 BPM NO STEMI, qtc nml SImilar to prior Electronically Signed On 09-07-2023 18:46:28 EDT by Luis Zabala CV Luis Mi, - 09/07/2023 IMPRESSION: Sinus rhythm 79 BPM NO STEMI, qtc nml SImilar to prior Electronically Signed On 09-07-2023 18:46:28 EDT by Luis Zabala [facility] No Panel InformationOrdered By: Luis Zabala on 09-07-2023 P [place] 57 degrees [facility] Work Phone: [place] Interval 147 ms [facility] Work Phone: QRS [place] -5 degrees [facility] Work Phone: QRSD Interval 79 ms [place] Work Phone: QT Interval 398 ms [facility] Work Phone: QTC Interval 458 ms [facility] Work Phone: T Wave [place] 63 degrees [facility] Work Phone: [facility] Work Phone: Troponin I.cardiac [Mass/Vol ]on 09-07-2023 Interpretation and review of laboratory results Normal [facility] Patients with high levels of Biotin oral intake (ie >5 mg/day) may have falsely decreased Troponin levels. [facility] Interpretation and review of laboratory results Normal [facility] Patients with high levels of Biotin oral intake (ie >5 mg/day) may have falsely decreased Troponin levels. [facility] Vital signsOrdered By: Luis Zabala on 09-07-2023 Heart rate 79 /min bpm [facility] Work Phone: XR Chest Single viewon 09-06 1. No acute findings. Report Dictated on Electronically Signed By: Pancho Wyatt MD Electronically Signed Date/Time: 09/07/2023 6:19 PM EDT [facility] Patient Name: CINTHYA CASTILLO : 1960 Exam Date/Time: 09/07/2023 18:21 Procedure: XR CHEST 1 VIEW Ordering Provider: CARNEY ADAM Reason For Exam: DYSPNEA CHEST PORTABLE CLINICAL INDICATION: DYSPNEA TECHNIQUE: Portable chest x-ray(s). COMPARISON: December,. FINDINGS: Patient's body habitus limits evaluation somewhat. Cardiac and mediastinal silhouette within normal limits. Lungs are grossly clear. No significant vascular congestion. No apparent pneumothorax. Degenerative change again noted in the thoracic spine. [facility] Pancho Wyatt MD - 09/07/2023 Patient Name: CINTHYA CASTILLO : 1960 [facility]#: [id number] Exam Date/Time: 09/07/2023 18:21 Procedure: XR CHEST [...] Electronically Signed Date/Time: 09/07/2023 6:19 PM EDT [facility] Radiology Study observation (narrative) [facility] XR Chest Single viewOrdered By: Pancho Wyatt on 09-07-2023 [facility] Work Phone: Basophil percentageOrdered B y: Lex Roca on 02-13-2023 Chloride [Moles/Vol] 112 mmol/L 98-107 [facility] Glucose [Mass/Vol] 138 mg/dL 74-106 [facility] Comment on above: Fasting Glucose resu lt greater than or equal to 126 mg/dL suggests DIABETES MELLITUS per A.D.A. criteria. Potassium [Moles/Vol] 4.7 mmol/L 3.5-5.1 [facility] Sodium [Moles/Vol] 142 mmol/L 136-145 [facility] WBC (Bld) [#/Vol] 11.3 10*3/uL 4.4-11.[address] [facility] Bilirubin Test strip Ql (U)O rdered By: Lex Roca on 02-13-2023 Bilirubin Ql (U) Negative Negative [facility] Blood erythrocytes count (nu mber/volume)Ordered By: Lex Roca on 02-13-2023 RBC (Bld) [#/Vol] 4.02 10*6/uL 4.2-5.[address] [facility] Blood hemoglobin measurement (mass/volume)Ordered By: Lex Roca on 02-13-2023 Hemoglobin (Bld) [Mass/Vol] 11.9 g/dL 12.0-15.0 [facility] Blood platelet mean volumeOr dered By: Lex Roca on 02-13-2023 Platelet mean volume (Bld) [Entitic vol] 9.8 fL 6.2-12.0 [facility] Culture, urineOrdered By: Sony Roca on 02-13-2023 Bacteria identified Cx Nom (U) Proteus mirabilis [facility] Determination of erythrocyte mean corpuscular volume (MCV)Ordered By: Lex Roca on 02-13-2023 MCV (RBC) [Entitic vol] 93.5 fL 81-99 [facility] Hematocrit Auto (Bld) [Volum e fraction]Ordered By: eLx Roca on 02-13-2023 Hematocrit (Bld) [Volume fraction] 37.6 % 37-47 [facility] Ketones Test strip Ql (U)Ord ered By: Lex Roca on 02-13-2023 Ketones Ql (U) 5 mg/dl Negative [facility] Laboratory - Chemistry and C hemistry - challengeOrdered By: Lex Roca on 02-13-2023 CO2 [Moles/Vol] 24.0 mmol/L 21.0-32.0 [facility] Urea nitrogen/Creatinine [Mass ratio] 28.3 mg/mg 10-20 [facility] Laboratory - Hematology and Cell countsOrdered By: Lex Roca on 02-13-2023 Erythrocyte distribution width (RBC) [Entitic vol] 43.7 fL 35.1-43.9 [facility] Erythrocyte distribution width (RBC) [Ratio] 12.8 % 11.6-14.6 [facility] MCH (RBC) [Entitic mass] 29.6 pg 27.0-32.0 [facility] MCHC Auto (RBC) [Mass/Vol]Or dered By: Lex Roca on 02-13-2023 MCHC (RBC) [Mass/Vol] 31.6 g/dL 32-36 [facility] Nitrite Test strip Ql (U)Ord ered By: Lex Roca on 02-13-2023 Nitrite Ql (U) Negative Negative [facility] No Panel InformationOrdered By: Lex Roca on 02-13-2023 Estimated GFR (MDRD) Amer 40 mL/min >60 [facility] Comment on above: GFR Calc Estimated GFR (MDRD) Non-Af Amer 33 mL/min >60 [facility] Comment on above: Non- GFR Calc Platelets bldOrdered By: Tony Roca on 02-13-2023 Platelets (Bld) [#/Vol] 322 10*3/uL 150-450 [facility] Protein Test strip Ql (U)Ord ered By: Lex Roca on 02-13-2023 Protein Ql (U) 500 mg/dl Negative [facility] Serum or plasma calcium aba urement (mass/volume)Ordered By: Lex Roca on 02-13-2023 Calcium [Mass/Vol] 8.4 mg/dL 8.5-10.1 [facility] Serum or plasma creatinine m easurement (mass/volume)Ordered By: Lex Roca on 02-13-2023 Creatinine [Mass/Vol] 1.66 mg/dL 0.55-1.02 [facility] Comment on above: The validity of the calculated GFR & GFRAA in patients over 70 years has not been determined. Clinical correlation is essential. Serum or plasma urea nitroge n measurement (mass/volume)Ordered By: Lex Roca on 02-13-2023 Urea nitrogen [Mass/Vol] 47 mg/dL 7-18 [facility] Thin prep Papanicolaou smear with manual screeningOrdered By: Lex Roca on 02-13-2023 Thin prep Papanicolaou smear with manual screening 6 5-15 [facility] Urine blood detectionOrdered By: Lex Roca on 02-13-2023 RBC Ql (U) 250 /ul Negative [facility] Urine clarityOrdered By: Tony Roca on 02-13-2023 Clarity (U) Cloudy Clear [facility] Urine color determinationOrd ered By: Lex Roca on 02-13-2023 Color (U) Red Yellow [facility] Urine glucose detectionOrder ed By: Lex Roca on 02-13-2023 Glucose Ql (U) 1000 mg/dl Normal [facility] Urine leukocyte esterase det ection by dipstickOrdered By: Lex Roca on 02-13-2023 Leukocyte esterase Test strip Ql (U) 100 /ul Negative [facility] Urine pHOrdered By: Lex cooper on 02-13-2023 pH (U) 8.0 [pH] 5.0 - 8.0 [facility] Urine specific gravity measu rementOrdered By: Lex Roca on 02-13-2023 Specific gravity (U) [Rel density] 1.010 1.002-1.030 [facility] Urobilinogen Auto test strip Ql (U)Ordered By: Lex Roca on 02-13-2023 Urobilinogen Ql (U) Normal mg/dl Normal [facility] Whole blood hemoglobin A1c/t otal hemoglobin ratio (mass fraction)Ordered By: Lex Roca on 02-05-2023 HbA1c (Bld) [Mass fraction] 6.6 % 3.8-5.6 [facility] Comment on above: Normal < 5.7 % Predi abetic 5.7 - 6.4 % Diabetic >or= 6.5 % Please note range changes. Laboratory - Chemistry and C hemistry - challengeon 12-11-2022 Glucose [Mass/Vol] 155 mg/dL High 70 - 100 mg/dL [facility] No Panel Informationon 12-11 Interpretation and review of laboratory results Abnormal [facility] Performed by: [facility], [address] [place] [address] CLIA ID: [id number] [facility] Basophil percentageOrdered B y: Lex Roca on 11-25-2022 WBC (Bld) [#/Vol] 10.9 10*3/uL 4.4-11.[address] [facility] Blood erythrocytes count (nu mber/volume)Ordered By: Lex Roca on 11-25-2022 RBC (Bld) [#/Vol] 3.84 10*6/uL 4.2-5.[address] [facility] Blood hemoglobin measurement (mass/volume)Ordered By: Lxe Roca on 11-25-2022 Hemoglobin (Bld) [Mass/Vol] 11.5 g/dL 12.0-15.0 [facility] Blood platelet mean volumeOr dered By: Lex Roca on 11-25-2022 Platelet mean volume (Bld) [Entitic vol] 10.2 fL 6.2-12.0 [facility] Determination of erythrocyte mean corpuscular volume (MCV)Ordered By: Lex Roca on 11-25-2022 MCV (RBC) [Entitic vol] 97.4 fL 81-99 [facility] Hematocrit Auto (Bld) [Volum e fraction]Ordered By: Lex Roca on 11-25-2022 Hematocrit (Bld) [Volume fraction] 37.4 % 37-47 [facility] Laboratory - Hematology and Cell countsOrdered By: Lex Roca on 11-25-2022 Erythrocyte distribution width (RBC) [Entitic vol] 44.9 fL 35.1-43.9 [facility] Erythrocyte distribution width (RBC) [Ratio] 12.6 % 11.6-14.6 [facility] MCH (RBC) [Entitic mass] 29.9 pg 27.0-32.0 [facility] MCHC Auto (RBC) [Mass/Vol]Or dered By: Lex Roca on 11-25-2022 MCHC (RBC) [Mass/Vol] 30.7 g/dL 32-36 [facility] Platelets bldOrdered By: Tony Roca on 11-25-2022 Platelets (Bld) [#/Vol] 379 10*3/uL 150-450 [facility] Whole blood hemoglobin A1c/t otal hemoglobin ratio (mass fraction)Ordered By: Lex Roca on 11-05-2022 HbA1c (Bld) [Mass fraction] 5.6 % 3.8-5.6 [facility] Comment on above: Normal < 5.7 % Predi abetic 5.7 - 6.4 % Diabetic >or= 6.5 % Please note range changes. Basophil percentageOrdered B y: Lex Roca on 10-09-2022 Chloride [Moles/Vol] 103 mmol/L 98-[address] [facility] Glucose [Mass/Vol] 61 mg/dL 74-106 [facility] Potassium [Moles/Vol] 4.0 mmol/L 3.5-5.1 [facility] Sodium [Moles/Vol] 133 mmol/L 136-145 [facility] Laboratory - Chemistry and C hemistry - challengeOrdered By: Lex Roca on 10-09-2022 CO2 [Moles/Vol] 23.0 mmol/L 21.0-32.0 [facility] Urea nitrogen/Creatinine [Mass ratio] 21.2 mg/mg 10-20 [facility] No Panel InformationOrdered By: Lex Roca on 10-09-2022 Estimated GFR (MDRD) Amer 35 mL/min >60 [facility] Comment on above: GFR Calc Estimated GFR (MDRD) Non-Af Amer 29 mL/min >60 [facility] Comment on above: Non- GFR Calc Serum or plasma calcium aba urement (mass/volume)Ordered By: Lex Roca on 10-09-2022 Calcium [Mass/Vol] 8.1 mg/dL 8.5-10.1 [facility] Serum or plasma creatinine m easurement (mass/volume)Ordered By: Lex Roca on 10-09-2022 Creatinine [Mass/Vol] 1.89 mg/dL 0.55-1.02 [facility] Comment on above: The validity of the calculated GFR & GFRAA in patients over 70 years has not been determined. Clinical correlation is essential. Serum or plasma urea nitroge n measurement (mass/volume)Ordered By: Lex Roca on 10-09-2022 Urea nitrogen [Mass/Vol] 40 mg/dL 7-18 [facility] Thin prep Papanicolaou smear with manual screeningOrdered By: Lex Roca on 10-09-2022 Thin prep Papanicolaou smear with manual screening 7 5-15 [facility] Bacteria identified Cx Nom ( Wound)Ordered By: Lex Roca on 08-31-2022 Wound Culture Staphylococcus aureus [facility] Wound Culture Streptococcus group G [facility] Bacteria identified Cx Nom ( Wound)Ordered By: Lex Roca on 08-28-2022 Wound Culture Staphylococcus aureus [facility] Wound Culture Streptococcus group G [facility] Gram stain for investigation of transfusion reactionOrdered By: Lex Roca on 08-28-2022 Microscopic observation Gram stain Nom (Unsp spec) [facility] Basophil percentageOrdered B y: Lex Roca on 07-16-2022 Cholesterol [Mass/Vol] 167 mg/dL <200 [facility] Comment on above: <200 mg/dL Desirable 200-240 mg/dL Borderline >240 mg/dL High Risk Triglyceride [Mass/Vol] 159 mg/dL <199 [facility] Comment on above: The drugs N-Acetylcy steine and Metamizole may falsely depress this assay.Serum Triglycerides Reference Interval Normal <150 mg/dL Borderline high 150 - 199 mg/dL High 200 - 499 mg/dL Very High > or = 500 mg/dL WBC (Bld) [#/Vol] 8.8 10*3/uL 4.4-11.0 [facility] Blood erythrocytes count (nu mber/volume)Ordered By: Lex Roca on 07-16-2022 RBC (Bld) [#/Vol] 4.07 10*6/uL 4.2-5.[address] [facility] Blood hemoglobin measurement (mass/volume)Ordered By: Lex Roca on 07-16-2022 Hemoglobin (Bld) [Mass/Vol] 12.4 g/dL 12.0-15.0 [facility] Blood platelet mean volumeOr dered By: Lex Roca on 07-16-2022 Platelet mean volume (Bld) [Entitic vol] 10.0 fL 6.2-12.0 [facility] Determination of erythrocyte mean corpuscular volume (MCV)Ordered By: Lex Roca on 07-16-2022 MCV (RBC) [Entitic vol] 94.1 fL 81-99 [facility] Erythrocyte sedimentation ra teOrdered By: Lex Roca on 07-16-2022 ESR (Bld) [Velocity] 43 mm/h 0-30 [facility] Hematocrit Auto (Bld) [Volum e fraction]Ordered By: Lex Roca on 07-16-2022 Hematocrit (Bld) [Volume fraction] 38.3 % 37-47 [facility] Laboratory - Hematology and Cell countsOrdered By: Lex Roca on 07-16-2022 Erythrocyte distribution width (RBC) [Entitic vol] 43.6 fL 35.1-43.9 [facility] Erythrocyte distribution width (RBC) [Ratio] 12.6 % 11.6-14.6 [facility] MCH (RBC) [Entitic mass] 30.5 pg 27.0-32.0 [facility] MCHC Auto (RBC) [Mass/Vol]Or dered By: Lex Roca on 07-16-2022 MCHC (RBC) [Mass/Vol] 32.4 g/dL 32-36 [facility] Platelets bldOrdered By: Tony navas Chanelle on 07-16-2022 Platelets (Bld) [#/Vol] 268 10*3/uL 150-450 [facility] Serum or plasma C reactive p rotein measurement (mass/volume)Ordered By: Lex Roca on 07-16-2022 CRP [Mass/Vol] 4.50 mg/L 0.0-3.0 [facility] Comment on above: C-Reactive Protein ( CRP) provides useful information for thediagnosis, therapy and monitoring of inflammatory processesand associated diseases. For the evaluation of Relative Riskfor Cardiovascular Disease, a High Sensitivity CRP (HSCRP)should be ordered. Serum or plasma cholesterol in HDL measurement (mass/volume)Ordered By: Lex Roca on 07-16-2022 Cholesterol in HDL [Mass/Vol] 37 mg/dL >40 [facility] Comment on above: The drugs N-Acetylcy steine and Metamizole may falsely depress this assay. Reference Range HDL <40 mg/dL Low HDL Cholesterol HDL >or= 60 mg/dL High HDL Cholesterol Serum or plasma cholesterol in VLDL measurement (mass/volume)Ordered By: Lex Roca on 07-16-2022 Cholesterol in VLDL [Mass/Vol] 32 mg/dL 5-40 [facility] Serum or plasma low density lipoprotein (LDL) cholesterol measurement (mass/volume)Ordered By: Lex Roca on 07-16-2022 Cholesterol in LDL [Mass/Vol] 98 mg/dL 0-130 [facility] Basophil percentageOrdered B y: Lex Roca on 06-04-2022 Bilirubin [Mass/Vol] 0.40 mg/dL 0.20-1.00 [facility] Comment on above: For patients on eltr ombopag therapy, use of Dimension [place] TBIL is not recommended. Chloride [Moles/Vol] 110 mmol/L 98-107 [facility] Cholesterol [Mass/Vol] 135 mg/dL <200 [facility] Comment on above: <200 mg/dL Desirable 200-240 mg/dL Borderline >240 mg/dL High Risk Glucose [Mass/Vol] 107 mg/dL 74-106 [facility] Comment on above: Fasting Glucose resu lt from 100 to 125 mg/dL suggests IMPAIRED HOMEOSTASIS per A.D.A. criteria. Potassium [Moles/Vol] 4.4 mmol/L 3.5-5.1 [facility] Protein [Mass/Vol] 6.4 g/dL 6.4-8.2 [facility] Sodium [Moles/Vol] 142 mmol/L 136-145 [facility] Triglyceride [Mass/Vol] 186 mg/dL <199 [facility] Comment on above: The drugs N-Acetylcy steine and Metamizole may falsely depress this assay.Serum Triglycerides Reference Interval Normal <150 mg/dL Borderline high 150 - 199 mg/dL High 200 - 499 mg/dL Very High > or = 500 mg/dL WBC (Bld) [#/Vol] 12.1 10*3/uL 4.4-11.[address] [facility] Blood erythrocytes count (nu mber/volume)Ordered By: Lex Roca on 06-04-2022 RBC (Bld) [#/Vol] 4.12 10*6/uL 4.2-5.[address] [facility] Blood hemoglobin measurement (mass/volume)Ordered By: Lex Roca on 06-04-2022 Hemoglobin (Bld) [Mass/Vol] 12.6 g/dL 12.0-15.0 [facility] Blood platelet mean volumeOr dered By: Lex Roca on 06-04-2022 Platelet mean volume (Bld) [Entitic vol] 10.0 fL 6.2-12.0 [facility] Determination of erythrocyte mean corpuscular volume (MCV)Ordered By: Lex Roca on 06-04-2022 MCV (RBC) [Entitic vol] 93.4 fL 81-99 [facility] Direct bilirubinOrdered By: Lex Roca on 06-04-2022 Bilirubin.direct [Mass/Vol] 0.12 mg/dL 0.00-0.30 [facility] Hematocrit Auto (Bld) [Volum e fraction]Ordered By: Lex Roca on 06-04-2022 Hematocrit (Bld) [Volume fraction] 38.5 % 37-47 [facility] Laboratory - Chemistry and C hemistry - challengeOrdered By: Lex Roca on 06-04-2022 ALP [Catalytic activity/Vol] 70 U/L 45-117 [facility] ALT [Catalytic activity/Vol] 28 U/L 13-56 [facility] CO2 [Moles/Vol] 24.0 mmol/L 21.0-32.0 [facility] Globulin (S) [Mass/Vol] 4.0 g/dL 2.2-4.2 [facility] Urea nitrogen/Creatinine [Mass ratio] 25.8 mg/mg 10-20 [facility] Laboratory - Hematology and Cell countsOrdered By: Lex Roca on 06-04-2022 Erythrocyte distribution width (RBC) [Entitic vol] 42.2 fL 35.1-43.9 [facility] Erythrocyte distribution width (RBC) [Ratio] 12.3 % 11.6-14.6 [facility] MCH (RBC) [Entitic mass] 30.6 pg 27.0-32.0 [facility] MCHC Auto (RBC) [Mass/Vol]Or dered By: Lex Roca on 06-04-2022 MCHC (RBC) [Mass/Vol] 32.7 g/dL 32-36 [facility] No Panel InformationOrdered By: Lex Roca on 06-04-2022 Estimated GFR (MDRD) Amer 36 mL/min >60 [facility] Comment on above: GFR Calc Estimated GFR (MDRD) Non-Af Amer 30 mL/min >60 [facility] Comment on above: Non- GFR Calc Platelets bldOrdered By: Tony Roca on 06-04-2022 Platelets (Bld) [#/Vol] 409 10*3/uL 150-450 [facility] Serum or plasma albumin aba urement (mass/volume)Ordered By: Lex Roca on 06-04-2022 Albumin [Mass/Vol] 2.4 g/dL 3.2-5.0 [facility] Serum or plasma calcium aba urement (mass/volume)Ordered By: Lex Roca on 06-04-2022 Calcium [Mass/Vol] 8.5 mg/dL 8.5-10.1 [facility] Serum or plasma cholesterol in HDL measurement (mass/volume)Ordered By: Lex Roca on 06-04-2022 Cholesterol in HDL [Mass/Vol] 35 mg/dL >40 [facility] Comment on above: The drugs N-Acetylcy steine and Metamizole may falsely depress this assay. Reference Range HDL <40 mg/dL Low HDL Cholesterol HDL >or= 60 mg/dL High HDL Cholesterol Serum or plasma cholesterol in VLDL measurement (mass/volume)Ordered By: Lex Roca on 06-04-2022 Cholesterol in VLDL [Mass/Vol] 37 mg/dL 5-40 [facility] Serum or plasma creatinine m easurement (mass/volume)Ordered By: Lex Roca on 06-04-2022 Creatinine [Mass/Vol] 1.82 mg/dL 0.55-1.02 [facility] Comment on above: The validity of the calculated GFR & GFRAA in patients over 70 years has not been determined. Clinical correlation is essential. Serum or plasma low density lipoprotein (LDL) cholesterol measurement (mass/volume)Ordered By: Lex Roca on 06-04-2022 Cholesterol in LDL [Mass/Vol] 63 mg/dL 0-130 [facility] Serum or plasma urea nitroge n measurement (mass/volume)Ordered By: Lex Roca on 06-04-2022 Urea nitrogen [Mass/Vol] 47 mg/dL 7-18 [facility] Thin prep Papanicolaou smear with manual screeningOrdered By: Lex Roca on 06-04-2022 Thin prep Papanicolaou smear with manual screening 18 U/L 15-37 [facility] Thin prep Papanicolaou smear with manual screening 8 5-15 [facility] Whole blood hemoglobin A1c/t otal hemoglobin ratio (mass fraction)Ordered By: Lex Roca on 06-04-2022 HbA1c (Bld) [Mass fraction] 6.4 % 3.8-5.6 [facility] Comment on above: Normal < 5.7 % Predi abetic 5.7 - 6.4 % Diabetic >or= 6.5 % Please note range changes. DBT Breast - bilateral patricia em 05-21-2022 No mammographic evidence of malignancy. ASSESSMENT: Category 1 Negative RECOMMENDATION: Routine screening mammogram in 1 year. Bilateral Report Dictated on Electronically Signed By: Alanis Redd Electronically Signed Date/Time: 05/21/2022 10:54 AM EST [facility] Patient Name: CINTHYA CASTILLO : 1960 [...] images: BB's = Nipples; skin lesions Open upper mattaponi = Palpable Line = Scar COMPARISON: 12/16/2016, 05/20/2021 TISSUE DENSITY: BIRADS B - There are scattered fibroglandular densities. FINDINGS: No suspicious masses, architectural distortions or suspiciously clustered microcalcifications are identified. There is no evidence of skin thickening or nipple retraction. There are no significant changes when compared with prior studies. [facility] Alanis Redd MD - 05/21/2022 Patient Name: [...] images: BB's = Nipples; skin lesions Open upper mattaponi = Palpable Line = Scar COMPARISON: 12/16/2016, [...] Electronically Signed Date/Time: 05/21/2022 10:54 AM EST [facility] Radiology Study observation (narrative) [facility]th DBT Breast - bilateral scree ningOrdered By: Alanis Redd on 05-21-2022 [facility] Work Phone: No Panel InformationOrdered By: Lex Roca on 03-09-2022 Thyroid Stimulating Hormone (TSH) 2.31 uIU/mL 0.358-3.74 [facility] Basophil percentageon 2021 Bilirubin [Mass/Vol] 0.30 mg/dL 0.20-1.00 [facility] Work Phone: Comment on above: For patients on eltr ombopag therapy, use of Dimension [place] TBIL is not recommended. Chloride [Moles/Vol] 110 mmol/L 98-107 [facility] Work Phone: Cholesterol [Mass/Vol] 161 mg/dL <200 [facility] Work Phone: Comment on above: <200 mg/dL Desirable 200-240 mg/dL Borderline >240 mg/dL High Risk Glucose [Mass/Vol] 85 mg/dL 74-106 [facility] Work Phone: Potassium [Moles/Vol] 4.0 mmol/L 3.5-5.1 [facility] Work Phone: Protein [Mass/Vol] 6.7 g/dL 6.4-8.2 [facility] Work Phone: Sodium [Moles/Vol] 144 mmol/L 136-145 [facility] Work Phone: Triglyceride [Mass/Vol] 214 mg/dL <199 [facility] Work Phone: Comment on above: The drugs N-Acetylcy steine and Metamizole may falsely depress this assay.Serum Triglycerides Reference Interval Normal <150 mg/dL Borderline high 150 - 199 mg/dL High 200 - 499 mg/dL Very High > or = 500 mg/dL Direct bilirubinon 2 Bilirubin.direct [Mass/Vol] 0.09 mg/dL 0.00-0.30 [facility] Work Phone: [phone] Laboratory - Chemistry and C hemistry - challengeon 12-04-2021 ALP [Catalytic activity/Vol] 56 U/L 45-117 [facility] Work Phone: [phone] ALT [Catalytic activity/Vol] 21 U/L 13-56 [facility] Work Phone: [phone] CO2 [Moles/Vol] 27.0 mmol/L 21.0-32.0 [facility] Work Phone: [phone] Globulin (S) [Mass/Vol] 3.8 g/dL 2.2-4.2 [facility] Work Phone: [phone] Urea nitrogen/Creatinine [Mass ratio] 24.0 mg/mg 10-20 [facility] Work Phone: No Panel Informationon 12-04 Estimated GFR (MDRD) Amer 44 mL/min >60 [facility] Work Phone: Comment on above: GFR Calc Estimated GFR (MDRD) Non-Af Amer 37 mL/min >60 [facility] Work Phone: [phone] Comment on above: Non- GFR Calc Thyroid Stimulating Hormone (TSH) 4.16 uIU/mL 0.358-3.74 [facility] Work Phone: [phone] Serum or plasma albumin aba urement (mass/volume)on 12-04-2021 Albumin [Mass/Vol] 2.9 g/dL 3.2-5.0 [facility] Work Phone: [phone] Serum or plasma calcium aba urement (mass/volume)on 12-04-2021 Calcium [Mass/Vol] 8.7 mg/dL 8.5-10.1 [facility] Work Phone: Serum or plasma cholesterol in HDL measurement (mass/volume)on 12-04-2021 Cholesterol in HDL [Mass/Vol] 34 mg/dL >40 [facility] Work Phone: Comment on above: The drugs N-Acetylcy steine and Metamizole may falsely depress this assay. Reference Range HDL <40 mg/dL Low HDL Cholesterol HDL >or= 60 mg/dL High HDL Cholesterol Serum or plasma cholesterol in VLDL measurement (mass/volume)on 12-04-2021 Cholesterol in VLDL [Mass/Vol] 43 mg/dL 5-40 [facility] Work Phone: [phone] Serum or plasma creatinine m easurement (mass/volume)on 12-04-2021 Creatinine [Mass/Vol] 1.54 mg/dL 0.55-1.02 [facility] Work Phone: Comment on above: The validity of the calculated GFR & GFRAA in patients over 70 years has not been determined. Clinical correlation is essential. Serum or plasma low density lipoprotein (LDL) cholesterol measurement (mass/volume)on 12-04-2021 Cholesterol in LDL [Mass/Vol] 84 mg/dL 0-130 [facility] Work Phone: Serum or plasma urea nitroge n measurement (mass/volume)on 12-04-2021 Urea nitrogen [Mass/Vol] 37 mg/dL 7-18 [facility] Work Phone: [phone] Thin prep Papanicolaou smear with manual screeningon 12-04-2021 Thin prep Papanicolaou smear with manual screening 14 U/L 15-37 [facility] Work Phone: [phone] Thin prep Papanicolaou smear with manual screening 7 5-15 [facility] Work Phone: [phone] Whole blood hemoglobin A1c/t otal hemoglobin ratio (mass fraction)on 12-04-2021 HbA1c (Bld) [Mass fraction] 6.7 % 3.8-5.6 [facility] Work Phone: Comment on above: Normal < 5.7 % Predi abetic 5.7 - 6.4 % Diabetic >or= 6.5 % Please note range changes. No Panel Informationon 08-11 Thyroid Stimulating Hormone (TSH) 4.27 uIU/mL 0.358-3.74 [facility] Work Phone: MG Breast Tomosynthesis Scr Blon 05-20-2021 MG Breast Tomosynthesis Scr Bl Patient Name: CINTHYA CASTILLO Mammography ACCESSION EXAM DATE/TIME PROCEDURE ORDERING PROVIDER [id number] 05/20/2021 10:55 EST MG Breast Tomosynthesis Mary Jane ROCA, LEX Stone BI Scr CPT code [id number] Reason For Exam (MG Breast Tomosynthesis BI [...] MG breast tomosynthesis bl scr performed at [facility]. December 16, 2015, bilateral screening mammogram performed at [facility]. December 14, 2014, bilateral screening mammogram performed at [facility]. TISSUE DENSITY: BIRADS B - There are [...] images: BB's = Nipples; skin lesions Open upper mattaponi = Palpable Line = Scar Mammography Report [...] Signed by: MD CASTRO KERISTEN L Normal [facility] Sohail Serafin Digital Screen Monica cote 05-20-2021 Patient Name: CINTHYA CASTILLO Mammography ACCESSION EXAM DATE/TIME PROCEDURE ORDERING PROVIDER [id number] 05/20/2021 10:55 EST MG Breast Tomosynthesis Mary Jane ROCA, LEX Stone BI Scr CPT code [id number] Reason For Exam (MG Breast Tomosynthesis BI [...] MG breast tomosynthesis bl scr performed at [facility]. December 16, 2015, bilateral screening mammogram performed at [facility]. December 14, 2014, bilateral screening mammogram performed at [facility]. TISSUE DENSITY: BIRADS B - There are [...] images: BB's = Nipples; skin lesions Open upper mattaponi = Palpable Line = Scar Mammography Report [...] pm Signed by: MD GLORIA, SHEBA Starkey [facility] Sheba Castro MD - 05/20/2021 Patient Name: CINTHYA CASTILLO Mammography ACCESSION EXAM DATE/TIME PROCEDURE ORDERING PROVIDER [id number] 05/20/2021 10:55 EST MG Breast Tomosynthesis Mary Jane ROCA THOMAS S BI Scr CPT code [id number] Reason For Exam (MG Breast Tomosynthesis BI [...] MG breast tomosynthesis bl scr performed at [facility]. December 16, 2015, bilateral screening mammogram performed at [facility]. December 14, 2014, bilateral screening mammogram performed at [facility]. TISSUE DENSITY: BIRADS B - There are [...] images: BB's = Nipples; skin lesions Open upper mattaponi = Palpable Line = Scar Mammography Report [...] pm Signed by: MD GLORIA, SHEBA Starkey [facility] Work Phone: Radiology Study observation (narrative) [facility] Work Phone: [facility] Serafin Digital Screen Bila teralOrdered By: Sheba Castro on 05-20-2021 [facility] Work Phone: Basophil percentageon 2021 Bilirubin [Mass/Vol] 0.30 mg/dL 0.20-1.00 [facility] Work Phone: Comment on above: For patients on eltr ombopag therapy, use of Dimension [place] TBIL is not recommended. Chloride [Moles/Vol] 110 mmol/L 98-107 [facility] Work Phone: Cholesterol [Mass/Vol] 160 mg/dL <200 [facility] Work Phone: Comment on above: <200 mg/dL Desirable 200-240 mg/dL Borderline >240 mg/dL High Risk Glucose [Mass/Vol] 119 mg/dL 74-106 [facility] Work Phone: Comment on above: Fasting Glucose resu lt from 100 to 125 mg/dL suggests IMPAIRED HOMEOSTASIS per A.D.A. criteria. Potassium [Moles/Vol] 4.5 mmol/L 3.5-5.1 [facility] Work Phone: Comment on above: Slight Hemolysis, Re sult may be falsely increased. Protein [Mass/Vol] 6.3 g/dL 6.4-8.2 [facility] Work Phone: Sodium [Moles/Vol] 141 mmol/L 136-145 [facility] Work Phone: Triglyceride [Mass/Vol] 179 mg/dL [facility] Work Phone: Comment on above: The drugs N-Acetylcy steine and Metamizole may falsely depress this assay.Serum Triglycerides Reference Interval Normal <150 mg/dL Borderline high 150 - 199 mg/dL High 200 - 499 mg/dL Very High > or = 500 mg/dL WBC (Bld) [#/Vol] 8.4 10*3/uL 4.4-11.0 [facility] Work Phone: [phone] Blood erythrocytes count (nu mber/volume)on 05-05-2021 RBC (Bld) [#/Vol] 4.24 10*6/uL 4.2-5.[address] [facility] Work Phone: Blood hemoglobin measurement (mass/volume)on 05-05-2021 Hemoglobin (Bld) [Mass/Vol] 12.5 g/dL 12.0-15.0 [facility] Work Phone: [phone] Blood platelet mean volumeon 05-05-2021 Platelet mean volume (Bld) [Entitic vol] 9.8 fL 6.2-12.0 [facility] Work Phone: [phone] Determination of erythrocyte mean corpuscular volume (MCV)on 05-05-2021 MCV (RBC) [Entitic vol] 89.2 fL 81-99 [facility] Work Phone: [phone] Hematocrit Auto (Bld) [Volum e fraction]on 05-05-2021 Hematocrit (Bld) [Volume fraction] 37.8 % 37-47 [facility] Work Phone: Laboratory - Chemistry and C hemistry - challengeon 05-05-2021 ALP [Catalytic activity/Vol] 71 U/L 45-117 [facility] Work Phone: ALT [Catalytic activity/Vol] 25 U/L 13-56 [facility] Work Phone: [phone] CO2 [Moles/Vol] 29.0 mmol/L 21.0-32.0 [facility] Work Phone: Globulin (S) [Mass/Vol] 3.6 g/dL 2.2-4.2 [facility] Work Phone: [phone] Urea nitrogen/Creatinine [Mass ratio] 21.4 mg/mg 10-20 [facility] Work Phone: [phone] Laboratory - Hematology and Cell countson 05-05-2021 Erythrocyte distribution width (RBC) [Entitic vol] 41.5 fL 35.1-43.9 [facility] Work Phone: [phone] Erythrocyte distribution width (RBC) [Ratio] 12.8 % 11.6-14.6 [facility] Work Phone: [phone] MCH (RBC) [Entitic mass] 29.5 pg 27.0-32.0 [facility] Work Phone: [phone] MCHC Auto (RBC) [Mass/Vol]on 05-05-2021 MCHC (RBC) [Mass/Vol] 33.1 g/dL 32-36 [facility] Work Phone: No Panel Informationon 05-05 Estimated GFR (MDRD) Amer 44 mL/min >60 [facility] Work Phone: [phone] Comment on above: GFR Calc Estimated GFR (MDRD) Non-Af Amer 37 mL/min >60 [facility] Work Phone: [phone] Comment on above: Non- GFR Calc Thyroid Stimulating Hormone (TSH) 5.77 uIU/mL 0.358-3.74 [facility] Work Phone: [phone] Vitamin D 25-Hydroxy 22.2 ng/mL [facility] Work Phone: Comment on above: Vitamin D 25(OH) Sta tus Range Deficiency <20 ng/mL (50nmol/L) Insufficiency 20 - 30 ng/mL (50 - 75 nmol/L) Sufficiency 30 - 100 ng/mL (75 - 250 nmol/L) Toxicity >100 ng/mL (>250 nmol/L) Platelets bldon 05-05-2021 Platelets (Bld) [#/Vol] 309 10*3/uL 150-450 [facility] Work Phone: [phone] Serum or plasma albumin aba urement (mass/volume)on 05-05-2021 Albumin [Mass/Vol] 2.7 g/dL 3.2-5.0 [facility] Work Phone: [phone] Serum or plasma albumin/glob ulin mass ratioon 05-05-2021 Albumin/Globulin [Mass ratio] 0.8 {ratio} 0.9-2.4 [facility] Work Phone: [phone] Serum or plasma calcium aba urement (mass/volume)on 05-05-2021 Calcium [Mass/Vol] 8.4 mg/dL 8.5-10.1 [facility] Work Phone: [phone] Serum or plasma cholesterol in HDL measurement (mass/volume)on 05-05-2021 Cholesterol in HDL [Mass/Vol] 34 mg/dL [facility] Work Phone: [phone] Comment on above: The drugs N-Acetylcy steine and Metamizole may falsely depress this assay. Reference Range HDL <40 mg/dL Low HDL Cholesterol HDL >or= 60 mg/dL High HDL Cholesterol Serum or plasma cholesterol in VLDL measurement (mass/volume)on 05-05-2021 Cholesterol in VLDL [Mass/Vol] 36 mg/dL 5-40 [facility] Work Phone: Serum or plasma creatinine m easurement (mass/volume)on 05-05-2021 Creatinine [Mass/Vol] 1.54 mg/dL 0.55-1.02 [facility] Work Phone: Comment on above: The validity of the calculated GFR & GFRAA in patients over 70 years has not been determined. Clinical correlation is essential. Serum or plasma low density lipoprotein (LDL) cholesterol measurement (mass/volume)on 05-05-2021 Cholesterol in LDL [Mass/Vol] 90 mg/dL 0-130 [facility] Work Phone: Serum or plasma urea nitroge n measurement (mass/volume)on 05-05-2021 Urea nitrogen [Mass/Vol] 33 mg/dL 7-18 [facility] Work Phone: Thin prep Papanicolaou smear with manual screeningon 05-05-2021 Thin prep Papanicolaou smear with manual screening 17 U/L 15-37 [facility] Work Phone: Comment on above: Slight Hemolysis, Re sult may be falsely increased. Thin prep Papanicolaou smear with manual screening 2 5-15 [facility] Work Phone: Whole blood hemoglobin A1c/t otal hemoglobin ratio (mass fraction)on 05-05-2021 HbA1c (Bld) [Mass fraction] 6.7 % 3.8-5.6 [facility] Work Phone: Comment on above: Normal < [...] by: JO AVENDANO MD Date: 08/12/2018 09:22 [facility] Glucose,Bedsideon 07-18-2018 Glucose mass conc 174 mg/dL High 70-100 [facility] Comment on above: Result Comment: Test performed by glucose meter. Results may be 10%-15% lower than serum/plasma values. (CLIA ID [id number]) Performed By: #### H EMDF, CMP3, TROPN, LIPA4, HA1C2 #### [facility] [employer] [address] [place] [id number] Glucose mass conc 236 mg/dL High 70-[facility] Comment on above: Result Comment: Test performed by glucose meter. Results may be 10%-15% lower than serum/plasma values. (CLIA ID [id number]) Performed By: #### H EMDF, CMP3, TROPN, LIPA4, HA1C2 #### [facility] [employer] [facility] [place] [address] Add on test from HISon 07-17 Add on test from HIS Accepted Normal [facility] Comment on above: Result Comment: Spec imen available & acceptable for analysis. Performed By: #### A DDON #### [facility] [address] [place] [address] Basic Metabolic Panelon - Anion gap molar conc 8 Normal [facility] Comment on above: Performed By: #### H EMDF, CMP3, TROPN, LIPA4, HA1C2 #### [address] [address] [place] [address] Calcium mass conc 8.7 mg/dL Normal 8.4-10.4 [facility] Comment on above: Performed By: #### H EMDF, CMP3, TROPN, LIPA4, HA1C2 #### [address] [address] Chloride molar conc 108 mmol/L High 98-107 [facility] Comment on above: Performed By: #### H EMDF, CMP3, TROPN, LIPA4, HA1C2 #### [address] [address] [place] [address] CO2 molar conc 24 mmol/L Normal 22-30 [facility] Comment on above: Performed By: #### H EMDF, CMP3, TROPN, LIPA4, HA1C2 #### [address] [address] Creatinine mass conc 0.85 mg/dL Normal 0.52-1.25 [facility] Comment on above: Performed By: #### H EMDF, CMP3, TROPN, LIPA4, HA1C2 #### [address] [address] GFR/1.73 sq M predicted among blacks MDRD vol rate/area (S/P/Bld) mL/min/{1.73_m2} Normal >60 [facility] Comment on above: Performed By: #### H EMDF, CMP3, TROPN, LIPA4, HA1C2 #### [address] [address] [place] [address] GFR/1.73 sq M predicted among non-blacks MDRD vol rate/area (S/P/Bld) mL/min/{1.73_m2} Normal >60 [facility] Comment on above: Result Comment: Sour ce- MDRD equation with creatinine calibration to IDMS(NKDEP) eGFR not recommended for drug dose adjustment Performed By: #### H EMDF, CMP3, TROPN, LIPA4, HA1C2 #### [address] [place] [address] Glucose mass conc 328 mg/dL High 70-[facility] Comment on above: Performed By: #### H EMDF, CMP3, TROPN, LIPA4, HA1C2 #### [address] [place] [address] Potassium molar conc 3.9 mmol/L Normal 3.5-5.1 [facility] Comment on above: Performed By: #### H EMDF, CMP3, TROPN, LIPA4, HA1C2 #### [address] [address] [place] [address] Sodium molar conc 140 mmol/L Normal 135-145 [facility] Comment on above: Result Comment: Down time Data Recovery: Caution when interpreting results with collection date & time. Performed By: #### H EMDF, CMP3, TROPN, LIPA4, HA1C2 #### [address] [address] [place] [address] Urea nitrogen mass conc 17 mg/dL Normal 7-20 [facility] Comment on above: Performed By: #### H EMDF, CMP3, TROPN, LIPA4, HA1C2 #### [address] [place] [address] Glucose,Bedsideon 07-17-2018 Glucose mass conc 264 mg/dL High 70-[facility] Comment on above: Result Comment: Test performed by glucose meter. Results may be 10%-15% lower than serum/plasma values. (CLIA ID [id number]) Performed By: #### H EMDF, CMP3, TROPN, LIPA4, HA1C2 #### [address] [place] [address] Glucose mass conc 271 mg/dL High 70-[facility] Comment on above: Result Comment: Test performed by glucose meter. Results may be 10%-15% lower than serum/plasma values. (CLIA ID [id number]) Performed By: #### H EMDF, CMP3, TROPN, LIPA4, HA1C2 #### [address] [address] Glucose mass conc 265 mg/dL High 70-100 [facility] Comment on above: Result Comment: Test performed by glucose meter. Results may be 10%-15% lower than serum/plasma values. (CLIA ID [id number]) Performed By: #### H EMDF, CMP3, TROPN, LIPA4, HA1C2 #### [address] Hemoglobin A1Con 07-17-2018 Hemoglobin A1c/Hemoglobin.total mass fraction (Bld) 217 mg/dL Normal [facility] Comment on above: Performed By: #### H EMDF, CMP3, TROPN, LIPA4, HA1C2 #### [address] Hemoglobin A1c/Hemoglobin.total mass fraction (Bld) 9.2 % High 4.0-5.7 [facility] Comment on above: Result Comment: --Hg bA1C levels may not be accurate in patients who have renal disease, received recent blood transfusions, are anemic, or who have dyshemoglobinemia. Performed By: #### H EMDF, CMP3, TROPN, LIPA4, HA1C2 #### [address] [address] Troponin Ion 07-17-2018 Troponin I.cardiac mass conc ng/mL Normal 0.000-0.034 [facility] Comment on above: Result Comment: 0.04 6 - 0.400 = Indeterminate > 0.400 = Consider Myocardial Injury Performed By: #### T ROPN #### [address] [address] [address] Abdomen/Pelvis w/ Contras ton 07-16-2018 CT Abdomen/Pelvis w/ Contrast Patient Name: CINTHYA CASTILLO CT Exam Date/Time 07/16/2018 19:52:[address] Abdomen/Pelvis w/ IV Contrast (IV Onl Ordering Physician [id number] QUAN Accession Number [id number] CPT4 Codes 95219 (CT Abdomen/Pelvis w/ IV Contrast (IV Onl), Q9967 (CT ISOVUE 370MG/[id number] andMLand1) Reason For Exam ABDOMINAL PAIN Report [...] Transcribed Date and Time: 07/16/2018 8:00 Normal [facility] Comp Metabolic Panelon 07-16 ALP enzyme act/vol 63 U/L Normal 38-126 [facility] Comment on above: Result Comment: Slig htly hemolysed, interpret with caution. Performed By: #### H EMDF, CMP3, TROPN, LIPA4, HA1C2 #### [address] [address] ALT enzyme act/vol 25 U/L Normal 13-69 [facility] Comment on above: Result Comment: Slig htly hemolysed, interpret with caution. Performed By: #### H EMDF, CMP3, TROPN, LIPA4, HA1C2 #### [address] AST enzyme act/vol 34 U/L Normal 15-46 [facility] Comment on above: Result Comment: Slig htly hemolysed, interpret with caution. Performed By: #### H EMDF, CMP3, TROPN, LIPA4, HA1C2 #### [address] [place], [place] Calcium mass conc 9.1 mg/dL Normal 8.4-10.4 [facility] Comment on above: Performed By: #### H EMDF, CMP3, TROPN, LIPA4, HA1C2 #### [address] [address] [place], [place] Glucose mass conc 357 mg/dL High 70-100 [facility] Comment on above: Performed By: #### H EMDF, CMP3, TROPN, LIPA4, HA1C2 #### [address], [place] Protein mass conc 7.6 g/dL Normal 6.3-8.2 [facility] Comment on above: Performed By: #### H EMDF, CMP3, TROPN, LIPA4, HA1C2 #### [address], [place] Urea nitrogen mass conc 26 mg/dL High 7-20 S [facility] Comment on above: Performed By: #### H EMDF, CMP3, TROPN, LIPA4, HA1C2 #### [address] Anion gap molar conc 11 Normal [facility] Comment on above: Performed By: #### H EMDF, CMP3, TROPN, LIPA4, HA1C2 #### [address] [place], [place] Bilirubin mass conc 0.6 mg/dL Normal 0.2-1.3 [facility] Comment on above: Performed By: #### H EMDF, CMP3, TROPN, LIPA4, HA1C2 #### [address], [place] CO2 molar conc 23 mmol/L Normal 22-30 [facility] Comment on above: Performed By: #### H EMDF, CMP3, TROPN, LIPA4, HA1C2 #### [address] Creatinine mass conc 0.93 mg/dL Normal 0.52-1.25 [facility] Comment on above: Performed By: #### H EMDF, CMP3, TROPN, LIPA4, HA1C2 #### [address] GFR/1.73 sq M predicted among blacks MDRD vol rate/area (S/P/Bld) mL/min/{1.73_m2} Normal >60 [facility] Comment on above: Performed By: #### H EMDF, CMP3, TROPN, LIPA4, HA1C2 #### [address], [place] GFR/1.73 sq M predicted among non-blacks MDRD vol rate/area (S/P/Bld) mL/min/{1.73_m2} Normal >60 [facility] Comment on above: Result Comment: Sour ce- MDRD equation with creatinine calibration to IDMS(NKDEP) eGFR not recommended for drug dose adjustment Performed By: #### H EMDF, CMP3, TROPN, LIPA4, HA1C2 #### [address] Albumin mass conc 4.1 g/dL Normal 3.5-5.0 [facility] Comment on above: Performed By: #### H EMDF, CMP3, TROPN, LIPA4, HA1C2 #### [address] Chloride molar conc 106 mmol/L Normal 98-107 [facility] Comment on above: Performed By: #### H EMDF, CMP3, TROPN, LIPA4, HA1C2 #### [address] Potassium molar conc 4.7 mmol/L Normal 3.5-5.1 [facility] Comment on above: Result Comment: Slig htly hemolysed, interpret with caution. Performed By: #### H EMDF, CMP3, TROPN, LIPA4, HA1C2 #### [address] Sodium molar conc 140 mmol/L Normal 135-145 [facility] Comment on above: Performed By: #### H EMDF, CMP3, TROPN, LIPA4, HA1C2 #### [address] Hemogram w/ Autodiffon 07-16 Abs Baso Cnt 0.1 10*3/uL Normal 0.0-0.2 [facility] Comment on above: Performed By: #### H EMDF, CMP3, TROPN, LIPA4, HA1C2 #### [address] Abs Neutrophile Cnt 8.5 10*3/uL High 1.8-7.0 [facility] Comment on above: Performed By: #### H EMDF, CMP3, TROPN, LIPA4, HA1C2 #### [address] Basophils/100 WBC (Bld) 0.7 % Normal 0.0-2.0 S [facility] Comment on above: Performed By: #### H EMDF, CMP3, TROPN, LIPA4, HA1C2 #### [address] Eosinophils #/vol (Bld) 0.1 10*3/uL Normal 0.0-0.5 [facility] Comment on above: Performed By: #### H EMDF, CMP3, TROPN, LIPA4, HA1C2 #### [address] Eosinophils/100 WBC (Bld) 1.2 % Normal 1.0-6.0 [facility] Comment on above: Performed By: #### H EMDF, CMP3, TROPN, LIPA4, HA1C2 #### [address] Erythrocyte distribution width Ratio (RBC) 14.3 % Normal 11.5-14.5 [facility] Comment on above: Performed By: #### H EMDF, CMP3, TROPN, LIPA4, HA1C2 #### [address] Granulocytes/100 WBC (Bld) 81.1 % High 40.0-80.0 [facility] Comment on above: Performed By: #### H EMDF, CMP3, TROPN, LIPA4, HA1C2 #### [address] Hematocrit Volume Fraction (Bld) 39.7 % Normal 35.0-47.0 [facility] Comment on above: Performed By: #### H EMDF, CMP3, TROPN, LIPA4, HA1C2 #### [address] Hemoglobin mass conc (Bld) 13.9 g/dL Normal 11.7-16.0 [facility] Comment on above: Performed By: #### H EMDF, CMP3, TROPN, LIPA4, HA1C2 #### [address] Lymphocytes #/vol (Bld) 1.3 10*3/uL Normal 1.0-4.3 [facility] Comment on above: Performed By: #### H EMDF, CMP3, TROPN, LIPA4, HA1C2 #### [address] Lymphocytes/100 WBC (Bld) 12.7 % Low 20.0-40.0 [facility] Comment on above: Performed By: #### H EMDF, CMP3, TROPN, LIPA4, HA1C2 #### [address] [place], [place] MCH Entitic mass (RBC) 30.4 pg Normal 26.0-34.0 [facility] Comment on above: Performed By: #### H EMDF, CMP3, TROPN, LIPA4, HA1C2 #### [address] [place], [place] MCHC mass conc (RBC) 35.0 % Normal 32.0-36.0 [facility] Comment on above: Performed By: #### H EMDF, CMP3, TROPN, LIPA4, HA1C2 #### [address] MCV Entitic volume (RBC) 87.0 fL Normal 79.0-98.0 [facility] Comment on above: Performed By: #### H EMDF, CMP3, TROPN, LIPA4, HA1C2 #### [address] Monocytes #/vol (Bld) 0.4 10*3/uL Normal 0.0-0.8 [facility] Comment on above: Performed By: #### H EMDF, CMP3, TROPN, LIPA4, HA1C2 #### [address] Monocytes/100 WBC (Bld) 4.3 % Normal 2.0-10.0 [facility] Comment on above: Performed By: #### H EMDF, CMP3, TROPN, LIPA4, HA1C2 #### [address] [place], [place] Platelet mean volume Entitic volume (Bld) 7.9 fL Normal 7.4-10.4 [facility] Comment on above: Performed By: #### H EMDF, CMP3, TROPN, LIPA4, HA1C2 #### [address] Platelets #/vol (Bld) 256 10*3/uL Normal 140-440 [facility] Comment on above: Performed By: #### H EMDF, CMP3, TROPN, LIPA4, HA1C2 #### [address] [place], [place] RBC #/vol (Bld) 4.56 10*6/uL Normal 3.80-5.20 [facility] Comment on above: Performed By: #### H EMDF, CMP3, TROPN, LIPA4, HA1C2 #### [address] [place], [place] WBC #/vol (Bld) 10.4 10*3/uL Normal 3.6-10.7 [facility] Comment on above: Performed By: #### H EMDF, CMP3, TROPN, LIPA4, HA1C2 #### [address] Lipaseon 07-16-2018 Lipase enzyme act/vol 179 U/L Normal 23-300 [facility] Comment on above: Performed By: #### H EMDF, CMP3, TROPN, LIPA4, HA1C2 #### [address] [place], [place] Troponin Ion 07-16-2018 Troponin I.cardiac mass conc ng/mL Normal 0.000-0.034 [facility] Comment on above: Result Comment: 0.04 6 - 0.400 = Indeterminate > 0.400 = Consider Myocardial Injury Performed By: #### H EMDF, CMP3, TROPN, LIPA4, HA1C2 #### [address] [place], [place] Urinalysis,Macroon 9 Appearance Nom (U) clear Normal Clear [facility] Comment on above: Performed By: #### U AMAC, UAMIC #### [address] Bilirubin,Ur Negative Normal Negative [facility] Comment on above: Performed By: #### U AMAC, UAMIC #### [address] [place], [place] Color Nom (U) yellow Normal Lt. Yellow [facility] Comment on above: Performed By: #### U AMAC, UAMIC #### [facility] [address] [place], [place] Glucose Ql (U) 1000 mg/dL Normal Negative [facility] Comment on above: Performed By: #### U AMAC, UAMIC #### [address] [place], [place] Ketone,Urine Negative Normal Negative [facility] Comment on above: Performed By: #### U AMAC, UAMIC #### [address] [place], [place] Nitrite Ql (U) Negative Normal Negative [facility] Comment on above: Performed By: #### U AMAC, UAMIC #### [address] [place], [place] Occult Blood,Ur 25 {RBC}/uL Normal Negative [facility] Comment on above: Performed By: #### U AMAC, UAMIC #### [address] [place], [place] pH (U) 5.0 Normal 5.0-8.0 [facility] Comment on above: Performed By: #### U AMAC, UAMIC #### [address] [place], [place] Protein mass conc (U) 150 mg/dL Normal Negative [facility] Comment on above: Performed By: #### U AMAC, UAMIC #### [address] [place], [place] Specific [place],Urine 1.015 Normal 1.005-1.030 [facility] Comment on above: Performed By: #### U AMAC, UAMIC #### [address] [place], [place] Urobilinogen Qn (U) NORM Normal 0-1 [facility] Comment on above: Performed By: #### U AMAC, UAMIC #### [address] [place], [place] WBC #/vol (Bld) Negative Normal Negative [facility] Comment on above: Performed By: #### U AMAC, UAMIC #### [facility] [address] [place], [place] Urinalysis,Microscopicon Bacteria LM.HPF #/area (Urine sed) Moderate (6-50) Normal Negative [facility] Comment on above: Performed By: #### U AMAC, UAMIC #### [facility] [address] [place], [place] Epithelial cells LM.HPF #/area (Urine sed) 6 - 10 Normal 3-5 [facility] Comment on above: Performed By: #### U AMAC, UAMIC #### [address] [place], [place] RBC LM.HPF #/area (Urine sed) 3 - 5 Normal 0-2 [facility] Comment on above: Performed By: #### U AMAC, UAMIC #### [address] [place], [place] Volume,Urine 8-12 ml Normal [facility] Comment on above: Performed By: #### U AMAC, UAMIC #### [address] [place], [place] WBC LM.HPF #/area (Urine sed) 3 - 5 Normal 0-5 [facility] Comment on above: Performed By: #### U AMAC, UAMIC #### [address] [place], [place] Comprehensive Panelon 2018 ALP enzyme act/vol 75 U/L Normal 46-116 [facility] Comment on above: Performed By: #### P 14 #### [facility] [address] [place], [place] [address] Bilirubin mass conc 0.4 mg/dL Normal 0.2-1.0 [facility] Comment on above: Performed By: #### P 14 #### [facility] [address] [place], [place] [address] Protein mass conc 7.8 g/dL Normal 6.4-8.2 [facility] Comment on above: Performed By: #### P 14 #### [facility] [address] [place], [place] [address] ALT enzyme act/vol 25 U/L Normal 12-78 [facility] Comment on above: Performed By: #### P 14 #### [facility] [address] [place], [place] [address] AST enzyme act/vol 13 U/L Normal 9-37 [facility] Comment on above: Performed By: #### P 14 #### [facility] [address] [place], [place] [address] Creatinine mass conc 0.99 mg/dL High 0.51-0.95 [facility] Comment on above: Performed By: #### P 14 #### [facility] [address] [place], [place] [address] Albumin mass conc 3.9 g/dL Normal 3.4-5.0 [facility] Comment on above: Performed By: #### P 14 #### [facility] [address] [address] Anion gap molar conc 12 mmol/L Normal 8-16 [facility] Comment on above: Performed By: #### P 14 #### [facility] [address] [place], [place] [address] CO2 molar conc 25 mmol/L Normal 21-32 [facility] Comment on above: Performed By: #### P 14 #### [facility] [address] [place], [place] [address] Glucose mass conc 92 mg/dL Normal 70-99 [facility] Comment on above: Performed By: #### P 14 #### [facility] [address] [place], [place] [address] Urea nitrogen mass conc 19 mg/dL High 7-18 [facility] Comment on above: Performed By: #### P 14 #### [facility] [address] [address] Calcium mass conc 9.3 mg/dL Normal 8.5-10.1 [facility] Comment on above: Performed By: #### P 14 #### [facility] [address] [address] Chloride molar conc 108 mmol/L High 98-107 [facility] Comment on above: Performed By: #### P 14 #### [facility] [address] [address] Potassium molar conc 3.4 mmol/L Low 3.5-5.1 [facility] Comment on above: Performed By: #### P 14 #### [facility] [address] [place], [place] [address] Sodium molar conc 142 mmol/L Normal 136-145 [facility] Comment on above: Performed By: #### P 14 #### [facility] [address] [address] ED NOTEon 06-27-2018 ED NOTE HNO ID: [id number] Author: Sarah PattenRn) Osiris RN Service: Nursing Author Type: Registered Nurse Type: ED Notes Filed: 06/27/2018 10:07 AM Note Text: Clean catch urine specimen obtained and sent. [facility] ED NOTE HNO ID: [id number] Author: Sarah Newell RN Service: Nursing Author Type: Registered Nurse Type: ED Notes Filed: 06/27/2018 9:55 AM Note Text: ED U/S notified that patient is ready [facility] ED NOTE HNO ID: [id number] Author: Sarah PattenRn) Osiris RN Service: Nursing Author Type: Registered Nurse Type: ED Notes Filed: 06/27/2018 9:44 AM Note Text: Pt states that she can not ambulate to the bathroom, pt able to stand and ambulate in the room, pt assisted onto bedside commode. [facility] ED NOTE HNO ID: [id number] Author: Ara (Rn) ESTHER Landrum Service: ? Author Type: Registered Nurse Type: ED Notes Filed: 06/27/2018 8:29 AM Note Text: Bed: 11-ED Expected date: 06/27/18 Expected time: Means of arrival: Comments: Squad, weak legs [facility] ED NOTE HNO ID: [id number] Author: Sarah Newell RN Service: Nursing Author Type: Registered Nurse Type: ED Notes Filed: 06/27/2018 8:21 AM Note Text: Pt states that her leg is starting to bother her, underneath her good leg. States pain began last night. Normal [facility] ED NOTE HNO ID: [id number] Author: Sarah (Rn) ESTHER Newell Service: Nursing Author Type: Registered Nurse [...] Nurse documenting pt response. Normal [facility] ED PROV NOTEon 06-27-2018 Protein mass conc HNO ID: [id number] Author: Bhavana Dewitt MD Service: Emergency Medicine [...] Dewitt MD 06/27/18 1253 Normal [facility] Protein mass conc HNO ID: [id number] Author: Bhavana Dewitt MD Service: Emergency Medicine Author Type: Physician Type: ED Provider Notes Filed: 07/03/2018 2:32 PM Note Text: ED Provider Note Patient Name: Cinthya Castillo SERVICE DATE: 06/27/18 History Patient presents with: Weakness: Pt is from [facility]. Pt states this morning that she began [...] (Src) 97.3 (Oral) Resp 18 Ht 5' 6 (1.68m) Wt 280 lb (127.0kg) SpO2 94% [...] disposition: stable SIGNATURE: Jenny Valero MD PGY-III Jenny(Res) MD Anjum Resident 06/30/18 1841 Attending Note I evaluated the patient and personally participated in the craig components. I agree with the resident's findings and plan as documented and have discussed the case and management of the patient's care with the resident. Signature: Bhavana Dewitt MD Date: 07/03/2018 Time: 2:32 PM Bhavana Dewitt MD 07/03/18 1432 Normal [facility] Glucose Meteron 06-27-2018 Glucose mass conc 97 mg/dL Normal 70-99 [facility] Comment on above: Result Comment: ESTHER LAKHANI MD NOTIFIED Performed By: #### P 14 #### [place] [address] Hemogramon 06-27-2018 Erythrocyte distribution width Ratio (RBC) 13.3 % Normal 11.7-14.4 [facility] Comment on above: Performed By: #### P 14 #### [facility] [address] [address] Hematocrit Volume Fraction (Bld) 38.8 % Normal 34.1-44.9 [facility] Comment on above: Performed By: #### P 14 #### [facility] [address] [address] Hemoglobin mass conc (Bld) 13.2 g/dL Normal 11.2-15.7 [facility] Comment on above: Performed By: #### P 14 #### [facility] [address] [address] MCH Entitic mass (RBC) 29.1 pg Normal 25.6-32.2 [facility] Comment on above: Performed By: #### P 14 #### [facility] [address] [address] MCHC mass conc (RBC) 34.0 % Normal 31.6-34.8 [facility] Comment on above: Performed By: #### P 14 #### [facility] [address] [address] MCV Entitic volume (RBC) 85.7 fL Normal 79.4-94.8 [facility] Comment on above: Performed By: #### P 14 #### [facility] [address] [address] Platelet mean volume Entitic volume (Bld) 10.1 fL Normal 9.4-12.3 [facility] Comment on above: Performed By: #### P 14 #### [facility] [address] [address] Platelets #/vol (Bld) 287 thou/cmm Normal 182-369 [facility] Comment on above: Performed By: #### P 14 #### [facility] [address] [address] RBC #/vol (Bld) 4.53 mil/cmm Normal 3.93-5.22 [facility] Comment on above: Performed By: #### P 14 #### [facility] [address] [place] [address] RDW SD 41.7 fl Normal 36.4-46.3 [facility] Comment on above: Performed By: #### P 14 #### [facility] [address] [address] WBC #/vol (Bld) 8.54 thou/cmm Normal 3.98-10.04 [facility] Comment on above: Performed By: #### P 14 #### [facility] [address] [place] [address] Lipase Bloodon 06-27-2018 Lipase Blood 122 U/L Normal 73-393 [facility] Comment on above: Performed By: #### L IP #### [facility] [address] [place] [address] MDRD GFRon 06-27-2018 GFR/1.73 sq M predicted among non-blacks MDRD vol rate/area (S/P/Bld) 57.91 mL/min/{1.73_m2} Normal >60mL/min/1. 73m2 [facility] Comment on above: Result Comment: If t he patient is , multiply the result by 1.210. Performed By: #### L IP #### [place] [address] Urinalysis Routineon 019 Bacteria LM.HPF #/area (Urine sed) NONE Normal None [facility] Comment on above: Performed By: #### L IP #### [place] [address] Ep Cells Urine 8.2 /hpf High 0.0-5.0 [facility] Comment on above: Performed By: #### L IP #### [place] [address] Hyaline Cast 1.4 /lpf High 0.0-1.0 [facility] Comment on above: Performed By: #### L IP #### [place] [address] RBC,Urine 2.4 /hpf Normal 0.0-5.0 [facility] Comment on above: Performed By: #### L IP #### [facility] [address] [place], [place] [address] WBC, Urine 5.3 /hpf High 0.0-5.0 [facility] Comment on above: Performed By: #### L IP #### [facility] [address] [place], [place] [address] Appearance Nom (U) CLEAR Normal [facility] Comment on above: Performed By: #### L IP #### [facility] [address] [place] [address] Bilirubin Urine Negative Normal Negative [facility] Comment on above: Performed By: #### L IP #### [facility] [address] [place] [address] Color Nom (U) YELLOW Normal [facility] Comment on above: Performed By: #### L IP #### [facility] [address] [place] [address] Glucose Ql (U) Negative Normal Negative [facility] Comment on above: Performed By: #### L IP #### [facility] [address] [place] [address] Hemoglobin,Urine Negative Normal Negative [facility] Comment on above: Performed By: #### L IP #### [facility] [address] [place] [address] Ketone Urine Negative Normal Negative [facility] Comment on above: Performed By: #### L IP #### [facility] [address] [place], [place] [address] Leukocytes Esterase Negative Normal Negative [facility] Comment on above: Performed By: #### L IP #### [facility] [address] [place], [place] [address] Nitrites Urine Negative Normal Negative [facility] Comment on above: Performed By: #### L IP #### [facility] [address] [place] [address] pH (U) 7.0 [pH] Normal 5.0-8.0 [facility] Comment on above: Performed By: #### L IP #### [facility] [address] [place] [address] Protein mass conc (U) 300 mg/dL Abnormal Negative [facility] Comment on above: Performed By: #### L IP #### [facility] [address] [place], [place] [address] Specific [place], Ur 1.025 Normal 1.005-1.030 [facility] Comment on above: Performed By: #### L IP #### [facility] [address] [place], [place] [address] Urobilinogen,Ur 1.0 EU/dL Normal 0.0-1.0 [facility] Comment on above: Performed By: #### L IP #### [facility] [address] [place], [place] [address] XR Chest Mobile 1 viewon XR Chest [...] by: DENNIS MORALES MD Date: 05/06/2018 23:57 [facility] XR Hip Left 2-3 viewson 04-22 XR [...] by: DENNIS MORALES MD Date: 05/07/2018 00:04 Normal [facility] XR Knee Left complete 4 plus viewson [...] by: DENNIS MORALES MD Date: 05/06/2018 23:58 [facility] XR Spine Lumbar Sacral 2 -3 viewson [...] by: DENNIS MORALES MD Date: 05/07/2018 00:07 [facility] ALLIED HEALTHon 03-15-2018 ALLIED HEALTH HNO ID: [id number] Author: Tereso Caraballo (Chaplain), Student Service: Spiritual Care Author Type: Wire Coiner Type: Allied Health Filed: 03/15/2018 12:03 PM Note Text: SPIRITUALCARE Spiritual Care Visit- Brief Note Name: Cinthya Castillo Date: March 15, 2018 Notes: Scrubs delivered. Wire Coiner Signature: Chaplain Panchito Interlacer To contact the Spiritual Care Department: Please call [phone] or Page the On-Call Wire Coiner at pager [phone] Thank you for the opportunity to be of service. This is an electronically created document. IF PRINTED, PLEASE DO NOT REMOVE FROM THE CHART OR MODIFY PRINTED COPY. Normal [facility] Basic Panelon 03-15-2018 Creatinine mass conc 1.14 mg/dL High 0.51-0.95 [facility] Comment on above: Performed By: #### P 14 #### [facility] [address] [place] [address] Anion gap molar conc 11 mmol/L Normal 8-16 [facility] Comment on above: Performed By: #### P 14 #### [facility] [address] [place] [address] Calcium mass conc 8.8 mg/dL Normal 8.5-10.1 [facility] Comment on above: Performed By: #### P 14 #### [place] [address] CO2 molar conc 27 mmol/L Normal 21-32 [facility] Comment on above: Performed By: #### P 14 #### [facility] [address] [place] [address] Glucose mass conc 99 mg/dL Normal 70-99 [facility] Comment on above: Performed By: #### P 14 #### [facility] [address] [place], [place] [address] Urea nitrogen mass conc 28 mg/dL High 7-18 [facility] Comment on above: Performed By: #### P 14 #### [facility] [address] [place], [place] [address] Chloride molar conc 108 mmol/L High 98-107 [facility] Comment on above: Performed By: #### P 14 #### [facility] [address] [place] [address] Potassium molar conc 4.1 mmol/L Normal 3.5-5.1 [facility] Comment on above: Performed By: #### P 14 #### [facility] [address] [place] [address] Sodium molar conc 142 mmol/L Normal 136-145 [facility] Comment on above: Performed By: #### P 14 #### [place] [address] CASE MANAGEMon 03-15-2018 CASE MANAGEM HNO ID: [id number] Author: Addis (Rn) ESTHER Tran Service: Care Management Author Type: Registered Nurse Type: Care Mgt Progress Note Filed: 03/15/2018 9:16 AM Note Text: CARE MANAGEMENT DISCHARGE NOTE SERVICE DATE: 03/15/2018 SERVICE TIME: 9:11 AM LOS: 14 days Admission Date: 03/01/2018 DISCHARGE ARRANGEMENT (list agency and phone number) care home facility: Was an expedited discharge program used? No Provider: [facility] CAREGIVER ASSESSMENT: Caregiver is ready, willing and able to meet the patient's needs as recommended by the inter-professional team? No Caregiver Needed Patient's transition needs and plan for meeting these needs: dc to [facility] Does the patient have an acute stroke diagnosis, or has the patient had a stroke during this admission? No HANDOFF COMMUNICATION: dc orders sent through ecin TRANSPORTATION ARRANGEMENTS: Mode of Transportation: [employer] Transportation Agency and Phone #: [facility] ambulance ( [facility] ) [phone] / [phone]. Date of Trip: 03/15/2018 Type of Service: Wheelchair Is Patient Medicaid Pending: No Discussion of financial coverage occurred with Patient . Parks Recreation Director Location: [facility] Destination: [facility] Financial Care Management Responsibility: None Estimated Charge: n/a Approving Wheat Grower: n/a ADDITIONAL CONTACT RESOURCES: n/a Discharge Information Row Name ED to Hosp-Admission (Current) from 03/01/[address] [facility] Agency [place] [address] Discharge orders completed. Patient will dc to [facility]. Patient will travel via wheelchair ambulette, packing and wrapping supervisor time is 1030. Patient and RN aware. SIGNATURE: Addis Tran RN PATIENT NAME: Cinthya Castillo DATE: March 15, 2018 TIME: 9:11 AM PAGER/CONTACT #: [phone] [facility] CNDSon 03-15-2018 CNDS HNO ID: [id number] Author: Dez Vicente (Res) MD [place] Service: Hospital Medicine Author Type: Resident Type: Discharge Summaries Filed: 03/15/2018 1:45 PM Note Text: Attestation signed by Peter Delarosa at 03/16/2018 8:03 AM Teaching Attending Note: I personally saw and evaluated the patient. I reviewed the resident's note. I agree with the resident's assessment and plan unless otherwise noted. Peter Delarosa MD [facility] Attending March 16, 2018 8:02 AM DISCHARGE SUMMARY PATIENT NAME: Cinthya Castillo ADMISSION DATE: 03/01/2018 DISCHARGE DATE: 03/15/2018 ATTENDING PHYSICIAN: Peter Delarosa Code Status: Not on file Highest [...] PATIENT CONDITION AT DISCHARGE: Stable DISCHARGE DISPOSITION: [facility] Discharge Physical Exam: VITAL SIGNS: BP 133/74 Pulse 102 Temp 37.2 ?C (99 ?F) (Oral) Resp 18 Ht 167.6 cm (5' 6) Wt 117.5 kg (259 lb) SpO2 95% [...] ED to Hosp-Admission (Current) from 03/01/[address] [facility] [address], [facility] [address] The patient's risk for 30-day readmission is [...] Dez Vicente Cha, MD PAGER/CONTACT #: Pager: [phone] DATE: March 14, 2018 TIME: 5:02 PM Normal [facility] CONSULT PROGon 03-15-2018 Protein mass conc HNO ID: [id number] Author: Savana Souza Service: Endocrinology Author Type: [...] (Oral) Resp 18 Ht 167.6 cm (5' 6) Wt 117.5 kg (259 lb) SpO2 92% [...] BID Savana Souza MD Normal [facility] Glucose Meteron 03-15-2018 Glucose mass conc 111 mg/dL High 70-99 [facility] Comment on above: Result Comment: RN N OTIFIED Performed By: #### G LMET #### [facility] [address] [place] [address] Hemogram/Diffon 03-15-2018 Abs Immature Grans 0.27 thou/cmm High 0.00-0.05 [facility] Comment on above: Performed By: #### P 14 #### [facility] [address] [place] [address] Abs. Baso 0.06 thou/cmm Normal 0.01-0.08 [facility] Comment on above: Result Comment: Smea r scanned; tech agrees with automated differential Performed By: #### P 14 #### [facility] [address] [place] [address] Abs. Knott 0.90 thou/cmm High 0.27-0.70 [facility] Comment on above: Performed By: #### P 14 #### [facility] [address] [place] [address] Abs. Neut (ANC) 9.19 thou/cmm High 1.56-6.13 [facility] Comment on above: Performed By: #### P 14 #### [facility] [address] [place] [address] Basophils/100 WBC (Bld) 0.5 % Normal [facility] Comment on above: Performed By: #### P 14 #### [facility] [address] [place] [address] Eosinophils #/vol (Bld) 0.56 thou/cmm High 0.00-0.31 [facility] Comment on above: Performed By: #### P 14 #### [facility] [address] [place] [address] Eosinophils/100 WBC (Bld) 4.4 % Normal [facility] Comment on above: Performed By: #### P 14 #### [facility] [address] [place] [address] Immature Grans 2.10 % Normal [facility] Comment on above: Performed By: #### P 14 #### [facility] [address] [place] [address] Lymphocytes #/vol (Bld) 1.65 thou/cmm Normal 1.18-3.74 [facility] Comment on above: Performed By: #### P 14 #### [facility] [address] [place] [address] Lymphocytes/100 WBC (Bld) 13.1 % Normal [facility] Comment on above: Performed By: #### P 14 #### [facility] [address] [place] [address] Monocytes/100 WBC (Bld) 7.1 % Normal [facility] Comment on above: Performed By: #### P 14 #### [facility] [address] [place] [address] Seg Neutrophil 72.8 % Normal [facility] Comment on above: Performed By: #### P 14 #### [facility] [address] [place] [address] Erythrocyte distribution width Ratio (RBC) 12.0 % Normal 11.7-14.4 [facility] Comment on above: Performed By: #### P 14 #### [facility] [address] [place] [address] Hematocrit Volume Fraction (Bld) 32.4 % Low 34.1-44.9 [facility] Comment on above: Performed By: #### P 14 #### [facility] [address] [place] [address] Hemoglobin mass conc (Bld) 10.3 g/dL Low 11.2-15.7 [facility] Comment on above: Performed By: #### P 14 #### [facility] [address] [place] [address] MCH Entitic mass (RBC) 30.4 pg Normal 25.6-32.2 [facility] Comment on above: Performed By: #### P 14 #### [facility] [address] [place] [address] MCHC mass conc (RBC) 31.8 % Normal 31.6-34.8 [facility] Comment on above: Performed By: #### P 14 #### [facility] [address] [place] [address] MCV Entitic volume (RBC) 95.6 fL High 79.4-94.8 [facility] Comment on above: Performed By: #### P 14 #### [facility] [address] [place] [address] Platelet mean volume Entitic volume (Bld) 9.5 fL Normal 9.4-12.3 [facility] Comment on above: Performed By: #### P 14 #### [facility] [address] [place], [place] [address] Platelets #/vol (Bld) 446 thou/cmm High 182-369 [facility] Comment on above: Performed By: #### P 14 #### [facility] [address] [place] [address] RBC #/vol (Bld) 3.39 mil/cmm Low 3.93-5.22 [facility] Comment on above: Performed By: #### P 14 #### [place] [address] RDW SD 42.3 fl Normal 36.4-46.3 [facility] Comment on above: Performed By: #### P 14 #### [facility] [address] [place] [address] WBC #/vol (Bld) 12.62 thou/cmm High 3.98-10.04 [facility] Comment on above: Performed By: #### P 14 #### [place] [address] MDRD GFRon 03-15-2018 GFR/1.73 sq M predicted among non-blacks MDRD vol rate/area (S/P/Bld) 49.26 mL/min/{1.73_m2} Normal >60mL/min/1. 73m2 [facility] Comment on above: Result Comment: If t he patient is , multiply the result by 1.210. Performed By: #### G FR #### [place] [address] NURSING PROGon 03-15-2018 Protein mass conc HNO ID: [id number] Author: Fabby (Rn) ESTHER Powell Service: (none) Author Type: Registered Nurse Type: Nursing Progress Note Filed: 03/15/2018 9:53 AM Note Text: Called to give report to jeovany braun; report given to Nikki Cerda [facility] PROGRESSon 03-15-2018 Protein mass conc HNO ID: [id number] Author: Dez Vicente (Dandy) MD [place] Service: Hospital Medicine Author Type: [...] still be discharged with antibiotics. Spoke to palliative care nurse practitioner, she'll beleaving the hospital at 10:30 AM. Normal [facility] Basic Panelon 03-14-2018 Creatinine mass conc 1.10 mg/dL High 0.51-0.95 [facility] Comment on above: Performed By: #### P 14 #### [place] [address] Anion gap molar conc 11 mmol/L Normal 8-16 [facility] Comment on above: Performed By: #### P 14 #### [place] [address] CO2 molar conc 26 mmol/L Normal 21-32 [facility] Comment on above: Performed By: #### P 14 #### [facility] [address] [place], [place] [address] Glucose mass conc 145 mg/dL High 70-99 [facility] Comment on above: Performed By: #### P 14 #### [facility] [address] [place] [address] Urea nitrogen mass conc 28 mg/dL High 7-18 [facility] Comment on above: Performed By: #### P 14 #### [facility] [address] [place] [address] Calcium mass conc 8.8 mg/dL Normal 8.5-10.1 [facility] Comment on above: Performed By: #### P 14 #### [place] [address] Chloride molar conc 107 mmol/L Normal 98-107 [facility] Comment on above: Performed By: #### P 14 #### [facility] [address] [place] [address] Potassium molar conc 4.0 mmol/L Normal 3.5-5.1 [facility] Comment on above: Performed By: #### P 14 #### [facility] [address] [place] [address] Sodium molar conc 140 mmol/L Normal 136-145 [facility] Comment on above: Performed By: #### P 14 #### [facility] [address] [place] [address] CASE MANAGEMon 03-14-2018 CASE MANAGEM HNO ID: [id number] Author: Radha (Rn) ESTHER Thomas Service: Care Management Author Type: Registered Nurse Type: Care Mgt Progress Note Filed: 03/14/2018 3:37 PM Note Text: CARE MANAGEMENT DISCHARGE NOTE SERVICE DATE: 03/14/2018 SERVICE TIME: 3:33 PM LOS: 13 days Admission Date: 03/01/2018 DISCHARGE ARRANGEMENT (list agency and phone number) care home facility: Was an expedited discharge program used? No Provider: [facility] CAREGIVER ASSESSMENT: Caregiver is ready, willing and able to meet the patient's needs as recommended by the inter-professional team? d/c to SNF Patient's transition needs and plan for meeting these needs: d/c to SNF Does the patient have an acute stroke diagnosis, or has the patient had a stroke during this admission? No HANDOFF COMMUNICATION: Water Tender: left with Clifton Murray Payor Ship Engines Operating Engineer: left with Karen Tello CM nurse to call report to [facility] TRANSPORTATION ARRANGEMENTS: wheelchair through [facility] ADDITIONAL CONTACT RESOURCES: n//a Discharge Information Row Name ED to Hosp-Admission (Current) from 03/01/[address] [facility] [place] [id number] Patient d/c today, orders complete. Updated patient at bedside. RN and Outsole Rounder notified of time. [facility] Cl[place]ton Murray notified of d/c today. No other needs identified. Patient d/c today. SIGNATURE: Radha Thomas RN PATIENT NAME: Cinthya Castillo DATE: March 14, 2018 TIME: 3:33 PM PAGER/CONTACT #: [phone] [facility] CASE MANAGEM HNO ID: [id number] Author: Radha PattenRn) ESHTER Thomas Service: Care Management Author Type: Registered Nurse Type: Care Mgt Progress Note Filed: 03/14/2018 1:41 PM Note Text: CARE MANAGEMENT PROGRESS NOTE SERVICE DATE: 03/14/2018 SERVICE TIME: 1:34 PM LOS: 13 days Needs Prior to Discharge: Ready for Discharge;Discharge Transportation Update from [facility] terrence, Dajuan Gil, stating we can set up transport for d/c today. Spoke to MD Dr. Esteban regarding auth to d/c. Stated he would d/c patient today. Left VM with [place] Murray, care-community health advocate/talent assistant and left with Karen Morales at [phone], Elisha AGUIRRE to follow up with patient. Will await d/c orders. SIGNATURE: Radha Thomas RN PATIENT NAME: Cinthya Castillo DATE: March 14, 2018 TIME: 1:33 PM PAGER/CONTACT #: [phone] [facility] CASE MANAGEM HNO ID: [id number] Author: Radha PattenRn) ESTHER Thomas Service: Care Management Author Type: Registered Nurse Type: Care Mgt Progress Note Filed: 03/14/2018 1:14 PM Note Text: CARE MANAGEMENT PROGRESS NOTE SERVICE DATE: 03/14/2018 SERVICE TIME: 1:09 PM LOS: 13 days Auth obtained for d/c today. However, [facility] liaison is stating he cannot accept this patient if elisha will only approve 3 days for teaching. Provided chalo Courtney with elisha customer field representative phone number to discuss his concerns. Will continue to follow. SIGNATURE: Radha Thomas RN PATIENT NAME: Cinthya Castillo DATE: March 14, 2018 TIME: 1:09 PM PAGER/CONTACT #: [phone] [facility] CASE MANAGEM HNO ID: [id number] Author: Radha (Rn) ESTHER Thomas Service: Care Management Author Type: Registered Nurse Type: Care Mgt Progress Note Filed: 03/14/2018 11:34 AM Note Text: CARE MANAGEMENT PROGRESS NOTE SERVICE DATE: 03/14/2018 SERVICE TIME: .now LOS: 13 days Needs Prior to Discharge: Insurance Authorization;Discharg e Transportation Awaiting pre-cert for d/c to [facility]. Started today. SIGNATURE: Radha Thomas RN PATIENT NAME: Cinthya Castillo DATE: March 14, 2018 TIME: 11:33 AM PAGER/CONTACT #: [phone] [facility] CONSULT PROGon 03-14-2018 Protein mass conc HNO ID: [id number] Author: Savana Souza Service: Endocrinology Author Type: [...] (Oral) Resp 18 Ht 167.6 cm (5' 6) Wt 117.5 kg (259 lb) SpO2 95% [...] - Continue Metformin 1,000 mg BID Savana Pritchard Harley, MD Normal [facility] Hemogram/Diffon 03-14-2018 Abs Immature Grans 0.44 thou/cmm High 0.00-0.05 [facility] Comment on above: Performed By: #### P 14 #### [facility] [address] [place] [address] Abs. Baso 0.08 thou/cmm Normal 0.01-0.08 [facility] Comment on above: Result Comment: Smea r scanned; tech agrees with automated differential Performed By: #### P 14 #### [facility] [address] [place] [address] Abs. Knott 0.90 thou/cmm High 0.27-0.70 [facility] Comment on above: Performed By: #### P 14 #### [place] [address] Abs. Neut (ANC) 8.98 thou/cmm High 1.56-6.13 [facility] Comment on above: Performed By: #### P 14 #### [facility] [address] [place] [address] Basophils/100 WBC (Bld) 0.6 % Normal [facility] Comment on above: Performed By: #### P 14 #### [facility] [address] [place] [address] Eosinophils #/vol (Bld) 0.62 thou/cmm High 0.00-0.31 [facility] Comment on above: Performed By: #### P 14 #### [facility] [address] [place] [address] Eosinophils/100 WBC (Bld) 4.8 % Normal [facility] Comment on above: Performed By: #### P 14 #### [facility] [address] [place] [address] Immature Grans 3.40 % Normal [facility] Comment on above: Performed By: #### P 14 #### [facility] [address] [place] [address] Lymphocytes #/vol (Bld) 1.99 thou/cmm Normal 1.18-3.74 [facility] Comment on above: Performed By: #### P 14 #### [facility] [address] [place], [place] [address] Lymphocytes/100 WBC (Bld) 15.3 % Normal [facility] Comment on above: Performed By: #### P 14 #### [facility] [address] [place] [address] Monocytes/100 WBC (Bld) 6.9 % Normal [facility] Comment on above: Performed By: #### P 14 #### [facility] [address] [place] [address] Seg Neutrophil 69.0 % Normal [facility] Comment on above: Performed By: #### P 14 #### [facility] [address] [place] [address] Erythrocyte distribution width Ratio (RBC) 12.0 % Normal 11.7-14.4 [facility] Comment on above: Performed By: #### P 14 #### [facility] [address] [place] [address] Hematocrit Volume Fraction (Bld) 31.8 % Low 34.1-44.9 [facility] Comment on above: Performed By: #### P 14 #### [facility] [address] [place] [address] Hemoglobin mass conc (Bld) 10.2 g/dL Low 11.2-15.7 [facility] Comment on above: Performed By: #### P 14 #### [facility] [address] [place] [address] MCH Entitic mass (RBC) 30.9 pg Normal 25.6-32.2 [facility] Comment on above: Performed By: #### P 14 #### [facility] [address] [place] [address] MCHC mass conc (RBC) 32.1 % Normal 31.6-34.8 [facility] Comment on above: Performed By: #### P 14 #### [facility] [address] [place] [address] MCV Entitic volume (RBC) 96.4 fL High 79.4-94.8 [facility] Comment on above: Performed By: #### P 14 #### [facility] [address] [place] [address] Platelet mean volume Entitic volume (Bld) 9.8 fL Normal 9.4-12.3 [facility] Comment on above: Performed By: #### P 14 #### [facility] [address] [place] [address] Platelets #/vol (Bld) 466 thou/cmm High 182-369 [facility] Comment on above: Performed By: #### P 14 #### [facility] [address] [place] [address] RBC #/vol (Bld) 3.30 mil/cmm Low 3.93-5.22 [facility] Comment on above: Performed By: #### P 14 #### [facility] [address] [place] [address] RDW SD 42.4 fl Normal 36.4-46.3 [facility] Comment on above: Performed By: #### P 14 #### [facility] [address] [place] [address] WBC #/vol (Bld) 13.01 thou/cmm High 3.98-10.04 [facility] Comment on above: Performed By: #### P 14 #### [facility] [address] [place] [address] PLAN OF CAREon 03-14-2018 PLAN OF CARE HNO ID: [id number] Author: Gabo Jackson Service: Pharmacy Author Type: [...] PharmD March 14, 2018 4:48 PM Pager: [phone] 03/14/2018 4:48 PM Medication List START taking [...] metoprolol tartrate (short acting) 25 mg tablet [facility] PLAN OF CARE O ID: [id number] Author: Laura Harvey (Pharmacist) Service: Pharmacy Author [...] Medication List. Patient is being discharged to [facility]). Many medications were adjusted during admission. Changes to medications ANTENNA INSTALLER will be continued at [facility]. Course of oral antibiotics also being finish at [facility] (enddate 03/18). LAURA HARVEY, PHARMACIST [...] acting) 25 mg tablet Normal [facility] PROGRESSon 03-14-2018 Protein mass conc HNO ID: [id number] Author: Peter Delarosa Service: Hospital Medicine Author [...] Endo insulin regimen input. Peter Delarosa MD [facility] Attending March 14, 2018 4:19 PM Normal [facility] Basic Panelon 03-13-2018 Creatinine mass conc 1.35 mg/dL High 0.51-0.95 [facility] Comment on above: Performed By: #### P 14 #### [facility] [address] [place] [address] Anion gap molar conc 11 mmol/L Normal 8-16 [facility] Comment on above: Performed By: #### P 14 #### [facility] [address] [place] [address] CO2 molar conc 27 mmol/L Normal 21-32 [facility] Comment on above: Performed By: #### P 14 #### [facility] [address] [place] [address] Glucose mass conc 136 mg/dL High 70-99 [facility] Comment on above: Performed By: #### P 14 #### [facility] [address] [place] [address] Urea nitrogen mass conc 28 mg/dL High 7-18 [facility] Comment on above: Performed By: #### P 14 #### [facility] [address] [place] [address] Calcium mass conc 8.7 mg/dL Normal 8.5-10.1 [facility] Comment on above: Performed By: #### P 14 #### [facility] [address] [place] [address] Chloride molar conc 107 mmol/L Normal 98-107 [facility] Comment on above: Performed By: #### P 14 #### [facility] [address] [place] [address] Potassium molar conc 4.1 mmol/L Normal 3.5-5.1 [facility] Comment on above: Performed By: #### P 14 #### [facility] [address] [place] [address] Sodium molar conc 141 mmol/L Normal 136-145 [facility] Comment on above: Performed By: #### P 14 #### [facility] [address] [place] [address] Hemogram/Diffon 03-13-2018 Abs Immature Grans 0.57 thou/cmm High 0.00-0.05 [facility] Comment on above: Performed By: #### P 14 #### [facility] [address] [place] [address] Abs. Baso 0.08 thou/cmm Normal 0.01-0.08 [facility] Comment on above: Result Comment: Smea r scanned; tech agrees with automated differential Performed By: #### P 14 #### [facility] [address] [place] [address] Abs. Knott 1.11 thou/cmm High 0.27-0.70 [facility] Comment on above: Performed By: #### P 14 #### [facility] [address] [place] [address] Abs. Neut (ANC) 7.88 thou/cmm High 1.56-6.13 [facility] Comment on above: Performed By: #### P 14 #### [facility] [address] [place] [address] Basophils/100 WBC (Bld) 0.6 % Normal [facility] Comment on above: Performed By: #### P 14 #### [facility] [address] [place], [place] [address] Eosinophils #/vol (Bld) 0.60 thou/cmm High 0.00-0.31 [facility] Comment on above: Performed By: #### P 14 #### [facility] [address] [place], [place] [address] Eosinophils/100 WBC (Bld) 4.8 % Normal [facility] Comment on above: Performed By: #### P 14 #### [facility] [address] [place], [place] [address] Immature Grans 4.50 % Normal [facility] Comment on above: Performed By: #### P 14 #### [facility] [address] [place], [place] [address] Lymphocytes #/vol (Bld) 2.34 thou/cmm Normal 1.18-3.74 [facility] Comment on above: Performed By: #### P 14 #### [facility] [address] [place], [place] [address] Lymphocytes/100 WBC (Bld) 18.6 % Normal [facility] Comment on above: Performed By: #### P 14 #### [facility] [address] [place], [place] [address] Monocytes/100 WBC (Bld) 8.8 % Normal [facility] Comment on above: Performed By: #### P 14 #### [facility] [address] [place], [place] [address] Seg Neutrophil 62.7 % Normal [facility] Comment on above: Performed By: #### P 14 #### [facility] [address] [place], [place] [address] Erythrocyte distribution width Ratio (RBC) 12.2 % Normal 11.7-14.4 [facility] Comment on above: Performed By: #### P 14 #### [facility] [address] [place], [place] [address] Hematocrit Volume Fraction (Bld) 33.7 % Low 34.1-44.9 [facility] Comment on above: Performed By: #### P 14 #### [facility] [address] [place], [place] [address] Hemoglobin mass conc (Bld) 10.6 g/dL Low 11.2-15.7 [facility] Comment on above: Performed By: #### P 14 #### [facility] [address] [place] [address] MCH Entitic mass (RBC) 30.2 pg Normal 25.6-32.2 [facility] Comment on above: Performed By: #### P 14 #### [facility] [address] [place] [address] MCHC mass conc (RBC) 31.5 % Low 31.6-34.8 [facility] Comment on above: Performed By: #### P 14 #### [facility] [address] [place] [address] MCV Entitic volume (RBC) 96.0 fL High 79.4-94.8 [facility] Comment on above: Performed By: #### P 14 #### [facility] [address] [place] [address] Platelet mean volume Entitic volume (Bld) 9.4 fL Normal 9.4-12.3 [facility] Comment on above: Performed By: #### P 14 #### [facility] [address] [place] [address] Platelets #/vol (Bld) 438 thou/cmm High 182-369 [facility] Comment on above: Performed By: #### P 14 #### [facility] [address] [place] [address] RBC #/vol (Bld) 3.51 mil/cmm Low 3.93-5.22 [facility] Comment on above: Performed By: #### P 14 #### [facility] [address] [place] [address] RDW SD 42.5 fl Normal 36.4-46.3 [facility] Comment on above: Performed By: #### P 14 #### [facility] [address] [place] [address] WBC #/vol (Bld) 12.56 thou/cmm High 3.98-10.04 [facility] Comment on above: Performed By: #### P 14 #### [facility] [address] [place] [id number] PLAN OF CAREon 03-13-2018 PLAN OF CARE HNO ID: [id number] Author: Savana Souza Service: Endocrinology Author Type: [...] DM regimen Will follow Savana Souza MD [facility] PROGRESSon 03-13-2018 Protein mass conc HNO ID: [id number] Author: Dez Vicente (Mitchell Esteban MD Service: [...] pmhx of HTN, DM, developmental delay, from [facility] presented on [facility] for a fall at [...] and patient's developmental delay. Patient has a heel caser who has helped with her medications in [...] (Src) 98.8 (Oral) Resp 18 Ht 5' 6 (1.68m) Wt 259 lb (117.5kg) SpO2 95% [...] diet - Endocrinology following -awaiting acceptance at [facility]- for help with insulin regimen Patient has displayed a lack of ability to administer her insulin regime without assistance. After discussions with the [facility]ci there are not the support or resources to assist at [facility]. There is concern that without help [...] 1545 -- 03/01/18 1715 pneumatic compression stockings ([place]) VTE Prophylaxis: VTE prophylaxis appropriate Plan of care discussed with: Attending SIGNATURE: Dez Vicente Cha, MD PATIENT NAME: Cinthya Castillo DATE: March 13, 2018 TIME: 10:43 AM PAGER/CONTACT #: Pager: [phone] Normal [facility] Basic Panelon 03-12-2018 Creatinine mass conc 1.14 mg/dL High 0.51-0.95 [facility] Comment on above: Performed By: #### P 14 #### [address] [address] Urea nitrogen mass conc 26 mg/dL High 7-18 [facility] Comment on above: Performed By: #### P 14 #### [facility] [address] [place], [place] [address] Anion gap molar conc 13 mmol/L Normal 8-16 [facility] Comment on above: Performed By: #### P 14 #### [address] [address] Calcium mass conc 8.9 mg/dL Normal 8.5-10.1 [facility] Comment on above: Performed By: #### P 14 #### [facility] [address] [place] [address] CO2 molar conc 25 mmol/L Normal 21-32 [facility] Comment on above: Performed By: #### P 14 #### [facility] [address] [place] [address] Glucose mass conc 83 mg/dL Normal 70-99 [facility] Comment on above: Performed By: #### P 14 #### [facility] [address] [place] [address] Chloride molar conc 107 mmol/L Normal 98-107 [facility] Comment on above: Performed By: #### P 14 #### [facility] [address] [place] [address] Potassium molar conc 3.9 mmol/L Normal 3.5-5.1 [facility] Comment on above: Performed By: #### P 14 #### [facility] [address] [place] [address] Sodium molar conc 141 mmol/L Normal 136-145 [facility] Comment on above: Performed By: #### P 14 #### [facility] [address] [place] [address] Hemogram/Diffon 03-12-2018 Abs Immature Grans 0.55 thou/cmm High 0.00-0.05 [facility] Comment on above: Performed By: #### U RIN2 #### [facility] [address] [place] [address] Abs. Baso 0.11 thou/cmm High 0.01-0.08 [facility] Comment on above: Performed By: #### U RIN2 #### [facility] [address] [place] [address] Abs. Knott 1.30 thou/cmm High 0.27-0.70 [facility] Comment on above: Performed By: #### U RIN2 #### [facility] [address] [place] [address] Abs. Neut (ANC) 8.75 thou/cmm High 1.56-6.13 [facility] Comment on above: Performed By: #### U RIN2 #### [facility] [address] [place], [place] [address] Basophils/100 WBC (Bld) 0.8 % Normal [facility] Comment on above: Performed By: #### U RIN2 #### [facility] [address] [place], [place] [address] Eosinophils #/vol (Bld) 0.57 thou/cmm High 0.00-0.31 [facility] Comment on above: Performed By: #### U RIN2 #### [facility] [address] [place], [place] [address] Eosinophils/100 WBC (Bld) 4.1 % Normal [facility] Comment on above: Performed By: #### U RIN2 #### [facility] [address] [place], [place] [address] Immature Grans 3.90 % Normal [facility] Comment on above: Performed By: #### U RIN2 #### [facility] [address] [place], [place] [address] Lymphocytes #/vol (Bld) 2.73 thou/cmm Normal 1.18-3.74 [facility] Comment on above: Performed By: #### U RIN2 #### [facility] [address] [place], [place] [address] Lymphocytes/100 WBC (Bld) 19.5 % Normal [facility] Comment on above: Performed By: #### U RIN2 #### [facility] [address] [place], [place] [address] Monocytes/100 WBC (Bld) 9.3 % Normal [facility] Comment on above: Performed By: #### U RIN2 #### [facility] [address] [place], [place] [address] Seg Neutrophil 62.4 % Normal [facility] Comment on above: Performed By: #### U RIN2 #### [facility] [address] [place], [place] [address] Erythrocyte distribution width Ratio (RBC) 12.2 % Normal 11.7-14.4 [facility] Comment on above: Performed By: #### U RIN2 #### [facility] [address] [place] [address] Hematocrit Volume Fraction (Bld) 33.4 % Low 34.1-44.9 [facility] Comment on above: Performed By: #### U RIN2 #### [facility] [address] [place] [address] Hemoglobin mass conc (Bld) 10.6 g/dL Low 11.2-15.7 [facility] Comment on above: Performed By: #### U RIN2 #### [facility] [address] [place] [address] MCH Entitic mass (RBC) 30.9 pg Normal 25.6-32.2 [facility] Comment on above: Performed By: #### U RIN2 #### [facility] [address] [place] [address] MCHC mass conc (RBC) 31.7 % Normal 31.6-34.8 [facility] Comment on above: Performed By: #### U RIN2 #### [facility] [address] [place] [address] MCV Entitic volume (RBC) 97.4 fL High 79.4-94.8 [facility] Comment on above: Performed By: #### U RIN2 #### [facility] [address] [place] [address] Platelet mean volume Entitic volume (Bld) 9.8 fL Normal 9.4-12.3 [facility] Comment on above: Performed By: #### U RIN2 #### [facility] [address] [place] [address] Platelets #/vol (Bld) 429 thou/cmm High 182-369 [facility] Comment on above: Performed By: #### U RIN2 #### [facility] [address] [place] [address] RBC #/vol (Bld) 3.43 mil/cmm Low 3.93-5.22 [facility] Comment on above: Performed By: #### U RIN2 #### [facility] [address] [place] [address] RDW SD 43.6 fl Normal 36.4-46.3 [facility] Comment on above: Performed By: #### U RIN2 #### [facility] [address] [place] [address] WBC #/vol (Bld) 14.02 thou/cmm High 3.98-10.04 [facility] Comment on above: Performed By: #### U RIN2 #### [facility] [address] [place] [address] PLAN OF CAREon 03-12-2018 PLAN OF CARE HNO ID: [id number] Author: Savana Souza Service: Endocrinology Author Type: [...] DM regimen Will follow Savana Souza MD [facility] PROGRESSon 03-12-2018 Protein mass conc HNO ID: [id number] Author: Polly Parks Service: Hospital Medicine Author [...] pmhx of HTN, DM, developmental delay, from [facility] presented on [facility] for a fall at [...] and patient's developmental delay. Patient has a heel caser who has helped with her medications in [...] (Src) 98.8 (Oral) Resp 18 Ht 5' 6 (1.68m) Wt 259 lb (117.5kg) SpO2 96% [...] diet - Endocrinology following -awaiting acceptance at [facility]- for help with insulin regimen Patient has displayed a lack of ability to administer her insulin regime without assistance. After discussions with the [facility]ci there are not the support or resources to assist at [facility]. There is concern that without help [...] 1545 -- 03/01/18 1715 pneumatic compression stockings ([place]) VTE Prophylaxis: VTE prophylaxis appropriate SIGNATURE: Polly Parks DO PATIENT NAME: Cinthya Castillo DATE: March 12, 2018 TIME: 8:28 AM PAGER/CONTACT #: [phone] [facility] ALLIED HEALTHon 03-11-2018 ALLIED HEALTH HNO ID: [id number] Author: Analilia Tineo (Chaplain), Student Service: Spiritual Care Author Type: Wire Coiner Type: Allied Health Filed: 03/11/2018 12:22 PM [...] Pt and she thanked me for coming. Wire Coiner Signature: Chaplain Candy Interlacer To contact the Spiritual Care Department: Please call [phone] or Page the On-Call Wire Coiner at pager [phone] Thank you for the opportunity to be of service. This is an electronically created document. IF PRINTED, PLEASE DO NOT REMOVE FROM THE CHART OR MODIFY PRINTED COPY. Normal [facility] Basic Panelon 03-11-2018 Creatinine mass conc 1.01 mg/dL High 0.51-0.95 [facility] Comment on above: Performed By: #### U RIN2 #### [place] [address] Anion gap molar conc 13 mmol/L Normal 8-16 [facility] Comment on above: Performed By: #### U RIN2 #### [place] [address] CO2 molar conc 24 mmol/L Normal 21-32 [facility] Comment on above: Performed By: #### U RIN2 #### [facility] [address] [place] [address] Glucose mass conc 91 mg/dL Normal 70-99 [facility] Comment on above: Performed By: #### U RIN2 #### [place] [address] Urea nitrogen mass conc 20 mg/dL High 7-18 [facility] Comment on above: Performed By: #### U RIN2 #### [facility] [address] [place] [address] Calcium mass conc 8.5 mg/dL Normal 8.5-10.1 [facility] Comment on above: Performed By: #### U RIN2 #### [facility] [address] [place] [address] Chloride molar conc 107 mmol/L Normal 98-107 [facility] Comment on above: Performed By: #### U RIN2 #### [facility] [address] [place] [address] Potassium molar conc 3.9 mmol/L Normal 3.5-5.1 [facility] Comment on above: Performed By: #### U RIN2 #### [facility] [address] [place] [address] Sodium molar conc 140 mmol/L Normal 136-145 [facility] Comment on above: Performed By: #### U RIN2 #### [place] [address] CASE MANAGEMon 03-11-2018 CASE MANAGEM HNO ID: [id number] Author: Radha (Rn) ESTHER Thomas Service: Care Management Author Type: Registered Nurse Type: Care Mgt Progress Note Filed: 03/11/2018 1:41 PM Note Text: CARE MANAGEMENT PROGRESS NOTE SERVICE DATE: 03/11/2018 SERVICE TIME: 1:40 PM LOS: 10 days Needs Prior to Discharge: Insurance Authorization;Discharg e Transportation Chart reviewed. Awaiting auth for d/c to [place]. Will continue to follow. Soren [place]ton Srikanth has stated she can transport at d/c. SIGNATURE: Radha Thomas RN PATIENT NAME: Cinthya Castillo DATE: March 11, 2018 TIME: 1:40 PM PAGER/CONTACT #: [phone] Normal [facility] Hemogram/Diffon 03-11-2018 Abs Immature Grans 0.53 thou/cmm High 0.00-0.05 [facility] Comment on above: Performed By: #### U RIN2 #### [facility] [address] [place] [address] Abs. Baso 0.07 thou/cmm Normal 0.01-0.08 [facility] Comment on above: Result Comment: Smea r scanned; tech agrees with automated differential Performed By: #### U RIN2 #### [facility] [address] [place] [address] Abs. Knott 1.29 thou/cmm High 0.27-0.70 [facility] Comment on above: Performed By: #### U RIN2 #### [facility] [address] [place] [address] Abs. Neut (ANC) 10.31 thou/cmm High 1.56-6.13 [facility] Comment on above: Performed By: #### U RIN2 #### [place] [address] Basophils/100 WBC (Bld) 0.5 % Normal [facility] Comment on above: Performed By: #### U RIN2 #### [place] [address] Eosinophils #/vol (Bld) 0.50 thou/cmm High 0.00-0.31 [facility] Comment on above: Performed By: #### U RIN2 #### [address] [address] Eosinophils/100 WBC (Bld) 3.4 % Normal [facility] Comment on above: Performed By: #### U RIN2 #### [place] [address] Immature Grans 3.60 % Normal [facility] Comment on above: Performed By: #### U RIN2 #### [place] [address] Lymphocytes #/vol (Bld) 2.09 thou/cmm Normal 1.18-3.74 [facility] Comment on above: Performed By: #### U RIN2 #### [address] [address] Lymphocytes/100 WBC (Bld) 14.1 % Normal [facility] Comment on above: Performed By: #### U RIN2 #### [address] [address] Monocytes/100 WBC (Bld) 8.7 % Normal [facility] Comment on above: Performed By: #### U RIN2 #### [facility] [address] [place] [address] Seg Neutrophil 69.7 % Normal [facility] Comment on above: Performed By: #### U RIN2 #### [facility] [address] [place] [address] Erythrocyte distribution width Ratio (RBC) 12.2 % Normal 11.7-14.4 [facility] Comment on above: Performed By: #### U RIN2 #### [facility] [address] [place] [address] Hematocrit Volume Fraction (Bld) 32.4 % Low 34.1-44.9 [facility] Comment on above: Performed By: #### U RIN2 #### [facility] [address] [place] [address] Hemoglobin mass conc (Bld) 10.3 g/dL Low 11.2-15.7 [facility] Comment on above: Performed By: #### U RIN2 #### [facility] [address] [place] [address] MCH Entitic mass (RBC) 30.7 pg Normal 25.6-32.2 [facility] Comment on above: Performed By: #### U RIN2 #### [facility] [address] [place] [address] MCHC mass conc (RBC) 31.8 % Normal 31.6-34.8 [facility] Comment on above: Performed By: #### U RIN2 #### [facility] [address] [place] [address] MCV Entitic volume (RBC) 96.4 fL High 79.4-94.8 [facility] Comment on above: Performed By: #### U RIN2 #### [facility] [address] [place] [address] Platelet mean volume Entitic volume (Bld) 10.0 fL Normal 9.4-12.3 [facility] Comment on above: Performed By: #### U RIN2 #### [facility] [address] [place] [address] Platelets #/vol (Bld) 418 thou/cmm High 182-369 [facility] Comment on above: Performed By: #### U RIN2 #### [facility] [address] [place] [address] RBC #/vol (Bld) 3.36 mil/cmm Low 3.93-5.22 [facility] Comment on above: Performed By: #### U RIN2 #### [facility] [address] [place] [address] RDW SD 42.3 fl Normal 36.4-46.3 [facility] Comment on above: Performed By: #### U RIN2 #### [facility] [address] [place] [address] WBC #/vol (Bld) 14.79 thou/cmm High 3.98-10.04 [facility] Comment on above: Performed By: #### U RIN2 #### [facility] [address] [place] [address] PLAN OF CAREon 03-11-2018 PLAN OF CARE HNO ID: [id number] Author: Savana Souza Service: Endocrinology Author Type: [...] 180 (H) 115 (H) Blood sugar on [facility] today 91. Insulin was increased yesterday. Will monitor blood sugars today and adjust as needed Savana Souza MD [facility] PROGRESSon 03-11-2018 Protein mass conc HNO ID: [id number] Author: Lynsey (Rn) ESTHER Allen Service: Nursing Author Type: Registered Nurse Type: Progress Notes Filed: 03/11/2018 7:17 PM Note Text: Sepsis advisory noted sea ANDREWS [facility] Protein mass conc HNO ID: [id number] Author: Jackson Williamson DO Service: Hospital Medicine [...] and patient's developmental delay. Patient has a heel caser who has helped with her medications in [...] (Src) 98.4 (Oral) Resp 18 Ht 5' 6 (1.68m) Wt 259 lb (117.5kg) SpO2 100% [...] regime without assistance. After discussions with the [facility] CM there are not the support or resources to assist at [facility]. There is concern that without help [...] 1545 -- 03/01/18 1715 pneumatic compression stockings ([place]) VTE Prophylaxis: VTE prophylaxis appropriate Plan of care discussed with: Attending and Patient SIGNATURE: Jackson Williamson DO PATIENT NAME: Cinthya Castillo DATE: March 11, 2018 TIME: 2:36 PM PAGER/CONTACT #: [phone] Normal [facility] Basic Panelon 03-10-2018 Creatinine mass conc 1.22 mg/dL High 0.51-0.95 [facility] Comment on above: Performed By: #### U RIN2 #### [place] [address] Urea nitrogen mass conc 22 mg/dL High 7-18 [facility] Comment on above: Performed By: #### U RIN2 #### [facility] [address] [place] [address] Anion gap molar conc 13 mmol/L Normal 8-16 [facility] Comment on above: Performed By: #### U RIN2 #### [facility] [address] [place], [place] [address] Calcium mass conc 8.3 mg/dL Low 8.5-10.1 [facility] Comment on above: Performed By: #### U RIN2 #### [address] [address] CO2 molar conc 28 mmol/L Normal 21-32 [facility] Comment on above: Performed By: #### U RIN2 #### [facility] [address] [place], [place] [address] Glucose mass conc 163 mg/dL High 70-99 [facility] Comment on above: Performed By: #### U RIN2 #### [facility] [address] [place], [place] [address] Chloride molar conc 105 mmol/L Normal 98-107 [facility] Comment on above: Performed By: #### U RIN2 #### [facility] [address] [place] [address] Potassium molar conc 3.8 mmol/L Normal 3.5-5.1 [facility] Comment on above: Performed By: #### U RIN2 #### [facility] [address] [place] [address] Sodium molar conc 142 mmol/L Normal 136-145 [facility] Comment on above: Performed By: #### U RIN2 #### [facility] [address] [place] [address] CASE MANAGEMon 03-10-2018 CASE MANAGEM HNO ID: [id number] Author: Radha PattenRn) ESTHER Thomas Service: Care Management Author Type: Registered Nurse Type: Care Mgt Progress Note Filed: 03/10/2018 9:03 AM Note Text: CARE MANAGEMENT PROGRESS NOTE SERVICE DATE: 03/10/2018 SERVICE TIME: 9:02 AM LOS: 9 days Needs Prior to Discharge: Insurance Authorization;Discharg e Transportation [place] is able to accept patient. Authorization started. Await auth for d/c. SIGNATURE: Radha Thomas RN PATIENT NAME: Cinthya Castillo DATE: March 10, 2018 TIME: 9:02 AM PAGER/CONTACT #: [phone] Normal [facility] CONSULT PROGon 03-10-2018 Protein mass conc HNO ID: [id number] Author: Savana Souza Service: Endocrinology Author Type: [...] (Oral) Resp 18 Ht 167.6 cm (5' 6) Wt 117.5 kg (259 lb) SpO2 96% [...] Metformin 1,000 mg BID Savana Souza MD [facility] PROGRESSon 03-10-2018 Protein mass conc HNO ID: [id number] Author: Jackson Williamson DO Service: Hospital Medicine [...] and patient's developmental delay. Patient has a heel caser who has helped with her medications in [...] (Src) 98.2 (Oral) Resp 18 Ht 5' 6 (1.68m) Wt 259 lb (117.5kg) SpO2 96% [...] regime without assistance. After discussions with the [facility] CM there are not the support or resources to assist at [facility]. There is concern that without help [...] 1545 -- 03/01/18 1715 pneumatic compression stockings ([place]) VTE Prophylaxis: VTE prophylaxis appropriate Plan of care discussed with: Attending and Patient SIGNATURE: Jackson Williamson DO PATIENT NAME: Cinthya Castillo DATE: March 10, 2018 TIME: 2:37 PM PAGER/CONTACT #: [phone] Normal [facility] Basic Panelon 03-09-2018 Creatinine mass conc 1.02 mg/dL High 0.51-0.95 [facility] Comment on above: Performed By: #### U RIN2 #### [facility] [address] [place] [address] Anion gap molar conc 14 mmol/L Normal 8-16 [facility] Comment on above: Performed By: #### U RIN2 #### [facility] [address] [place] [address] Calcium mass conc 8.7 mg/dL Normal 8.5-10.1 [facility] Comment on above: Performed By: #### U RIN2 #### [facility] [address] [place] [address] CO2 molar conc 27 mmol/L Normal 21-32 [facility] Comment on above: Performed By: #### U RIN2 #### [facility] [address] [place] [address] Glucose mass conc 132 mg/dL High 70-99 [facility] Comment on above: Performed By: #### U RIN2 #### [facility] [address] [place] [address] Urea nitrogen mass conc 19 mg/dL High 7-18 [facility] Comment on above: Performed By: #### U RIN2 #### [facility] [address] [place] [address] Chloride molar conc 105 mmol/L Normal 98-107 [facility] Comment on above: Performed By: #### U RIN2 #### [facility] [address] [place] [address] Potassium molar conc 3.8 mmol/L Normal 3.5-5.1 [facility] Comment on above: Performed By: #### U RIN2 #### [facility] [address] [place] [address] Sodium molar conc 142 mmol/L Normal 136-145 [facility] Comment on above: Performed By: #### U RIN2 #### [facility] [address] [place] [address] CASE MANAGEMon 03-09-2018 CASE MANAGEM HNO ID: [id number] Author: Radha (Rn) ESTHER Thomas Service: Care Management Author Type: Registered Nurse Type: Care Mgt Progress Note Filed: 03/09/2018 4:14 PM Note Text: CARE MANAGEMENT PROGRESS NOTE SERVICE DATE: 03/09/2018 SERVICE TIME: 4:08 PM LOS: 8 days FREEDOM OF CHOICE GIVEN: Yes discussed The patient and/or family has been given the Provider List: Yes Provider List: [facility] Facility Preference: [facility] Needs Prior to [...] bid doses of insulin. Spoke to home attendant Joyce Javan who confirmed they provide meals, laundry and assist with telling residents when to take meds but cannot administer. Spoke to patient at bedside regarding possible SNF d/c, discussed FOC and patient chose [facility]. Spoke to Karen Morales, Elisha CM regarding patient likely need for SNF d/c for med management. Will place referral and continue to follow. SIGNATURE: Radha Thomas RN PATIENT NAME: Cinthya Castillo DATE: March 09, 2018 TIME: 4:08 PM PAGER/CONTACT #: [phone] [facility] CASE MANAGEM HNO ID: [id number] Author: Radha (Rn) ESTHER Thomas Service: Care Management Author Type: Registered Nurse Type: Care Mgt Progress Note Filed: 03/09/2018 1:41 PM Note Text: CARE MANAGEMENT PROGRESS NOTE SERVICE DATE: 03/09/2018 SERVICE TIME: 1:40 PM LOS: 8 days FREEDOM OF CHOICE GIVEN: Yes discussed The patient and/or family has been given the Provider List: Yes Provider List: [facility] Facility Preference: [facility] Spoke to patient at bedside regarding possibility of SNF for med management. Patient agreeable. FOC provided, choice is [facility]. Will await acceptance. SIGNATURE: Radha Thomas RN PATIENT NAME: Cinthya Castillo DATE: March 09, 2018 TIME: 1:40 PM PAGER/CONTACT #: [phone] [facility] Hemogram/Diffon 03-09-2018 Abs Immature Grans 0.54 thou/cmm High 0.00-0.05 [facility] Comment on above: Performed By: #### U RIN2 #### [facility] [address] [place] [address] Abs. Baso 0.08 thou/cmm Normal 0.01-0.08 [facility] Comment on above: Result Comment: Smea r scanned; tech agrees with automated differential Performed By: #### U RIN2 #### [facility] [address] [place] [address] Abs. Knott 1.41 thou/cmm High 0.27-0.70 [facility] Comment on above: Performed By: #### U RIN2 #### [facility] [address] [place] [address] Abs. Neut (ANC) 9.86 thou/cmm High 1.56-6.13 [facility] Comment on above: Performed By: #### U RIN2 #### [facility] [address] [place] [address] Basophils/100 WBC (Bld) 0.6 % Normal [facility] Comment on above: Performed By: #### U RIN2 #### [facility] [address] [place] [address] Eosinophils #/vol (Bld) 0.37 thou/cmm High 0.00-0.31 [facility] Comment on above: Performed By: #### U RIN2 #### [facility] [address] [place], [place] [address] Eosinophils/100 WBC (Bld) 2.7 % Normal [facility] Comment on above: Performed By: #### U RIN2 #### [facility] [address] [place] [address] Immature Grans 3.90 % Normal [facility] Comment on above: Performed By: #### U RIN2 #### [facility] [address] [place] [address] Lymphocytes #/vol (Bld) 1.47 thou/cmm Normal 1.18-3.74 [facility] Comment on above: Performed By: #### U RIN2 #### [address] [address] Lymphocytes/100 WBC (Bld) 10.7 % Normal [facility] Comment on above: Performed By: #### U RIN2 #### [facility] [address] [place] [address] Monocytes/100 WBC (Bld) 10.3 % Normal [facility] Comment on above: Performed By: #### U RIN2 #### [facility] [address] [place] [address] Seg Neutrophil 71.8 % Normal [facility] Comment on above: Performed By: #### U RIN2 #### [facility] [address] [place] [address] Erythrocyte distribution width Ratio (RBC) 12.3 % Normal 11.7-14.4 [facility] Comment on above: Performed By: #### U RIN2 #### [facility] [address] [place] [address] Hematocrit Volume Fraction (Bld) 33.0 % Low 34.1-44.9 [facility] Comment on above: Performed By: #### U RIN2 #### [facility] [address] [place] [address] Hemoglobin mass conc (Bld) 10.7 g/dL Low 11.2-15.7 [facility] Comment on above: Performed By: #### U RIN2 #### [facility] [address] [place] [address] MCH Entitic mass (RBC) 30.9 pg Normal 25.6-32.2 [facility] Comment on above: Performed By: #### U RIN2 #### [facility] [address] [place] [address] MCHC mass conc (RBC) 32.4 % Normal 31.6-34.8 [facility] Comment on above: Performed By: #### U RIN2 #### [facility] [address] [place] [address] MCV Entitic volume (RBC) 95.4 fL High 79.4-94.8 [facility] Comment on above: Performed By: #### U RIN2 #### [facility] [address] [place] [address] Platelet mean volume Entitic volume (Bld) 9.8 fL Normal 9.4-12.3 [facility] Comment on above: Performed By: #### U RIN2 #### [facility] [address] [place] [address] Platelets #/vol (Bld) 355 thou/cmm Normal 182-369 [facility] Comment on above: Performed By: #### U RIN2 #### [facility] [address] [place] [address] RBC #/vol (Bld) 3.46 mil/cmm Low 3.93-5.22 [facility] Comment on above: Performed By: #### U RIN2 #### [facility] [address] [place] [address] RDW SD 42.5 fl Normal 36.4-46.3 [facility] Comment on above: Performed By: #### U RIN2 #### [facility] [address] [place] [address] WBC #/vol (Bld) 13.73 thou/cmm High 3.98-10.04 [facility] Comment on above: Performed By: #### U RIN2 #### [facility] [address] [place] [address] PLAN OF CAREon 03-09-2018 PLAN OF CARE HNO ID: [id number] Author: Savana Souza Service: Endocrinology Author Type: [...] ISS AC/HS Will follow Savana Souza MD [facility] PROGRESSon 03-09-2018 Protein mass conc HNO ID: [id number] Author: Jackson Williamson DO Service: Hospital Medicine [...] as documented in the resident's note. Plan: manpower development manager input noted. Patient wiling to go to [facility] for short term. Walter Gross MD SERVICE [...] and patient's developmental delay. Patient has a heel caser who has helped with her medications in [...] (Src) 98.2 (Oral) Resp 20 Ht 5' 6 (1.68m) Wt 259 lb (117.5kg) SpO2 95% [...] 1545 -- 03/01/18 1715 pneumatic compression stockings (ia,oh) VTE Prophylaxis: VTE prophylaxis appropriate Plan of care discussed with: Attending and Patient SIGNATURE: Jackson Williamson DO PATIENT NAME: Cinthya Castillo DATE: March 09, 2018 TIME: 4:23 PM PAGER/CONTACT #: [phone] [facility] ALLIED HEALTHon 03-08-2018 ALLIED HEALTH HNO ID: [id number] Author: Cinthya (Rn) ESTHER Maloney Service: Diabetes Education Author Type: Registered Nurse Type: Allied Health Filed: 03/08/2018 3:01 PM Note Text: DIABETES EDUCATION PROGRESS NOTE SERVICE DATE: 03/08/2018 SERVICE TIME: 5395 RECOMMENDATIONS: Patient needs to follow-up with primary care physician after discharge. Prescriptions for diabetic supplies -insulin. Patient demonstrated correct use of insulin pen. Patient Stated correct dose of 70 units in the morning and 70 units in the evening-instructed to take with meal. The Ship Engines Operating Engineer ,Clifton Murray, was left a message to [...] Interested. Barriers to learning: None Family support: heel caser called Education Type: Individual instruction Written instruction - handouts Verbal instruction Response to education: States/Identifies. Education provided to: Patient. Teachback method used. Time Spent (Minutes): 15 SIGNATURE: Cinthya Maloney RN PATIENT NAME: Cinthya Castillo DATE: March 08, 2018 TIME: 2:53 PM PAGER: [phone] Normal [facility] Basic Panelon 03-08-2018 Creatinine mass conc 1.15 mg/dL High 0.51-0.95 [facility] Comment on above: Performed By: #### U RIN2 #### [place] [address] Anion gap molar conc 12 mmol/L Normal 8-16 [facility] Comment on above: Performed By: #### U RIN2 #### [place] [address] CO2 molar conc 25 mmol/L Normal 21-32 [facility] Comment on above: Performed By: #### U RIN2 #### [place] [address] Glucose mass conc 175 mg/dL High 70-99 [facility] Comment on above: Performed By: #### U RIN2 #### [facility] [address] [place] [address] Urea nitrogen mass conc 21 mg/dL High 7-18 [facility] Comment on above: Performed By: #### U RIN2 #### [facility] [address] [place] [address] Calcium mass conc 8.8 mg/dL Normal 8.5-10.1 [facility] Comment on above: Performed By: #### U RIN2 #### [facility] [address] [place] [address] Chloride molar conc 107 mmol/L Normal 98-107 [facility] Comment on above: Performed By: #### U RIN2 #### [facility] [address] [place] [address] Potassium molar conc 3.8 mmol/L Normal 3.5-5.1 [facility] Comment on above: Performed By: #### U RIN2 #### [facility] [address] [place] [address] Sodium molar conc 140 mmol/L Normal 136-145 [facility] Comment on above: Performed By: #### U RIN2 #### [facility] [address] [place] [address] CASE MANAGEMon 03-08-2018 CASE MANAGEM HNO ID: [id number] Author: Vianey Clifford) ESTHER Arnold Service: Care Management Author Type: Registered Nurse [...] patient's advocate Stefanie Garcia RN Care Manger ([phone]). Await call back. Will continue to follow clinical course for further DC planning needs. SIGNATURE: Vianey Arnold RN PATIENT NAME: Cinthya Castillo DATE: March 08, 2018 TIME: 2:33 PM PAGER/CONTACT #: [phone] Normal [facility] CONSULT PROGon 03-08-2018 Protein mass conc HNO ID: [id number] Author: Savana Souza Service: Endocrinology Author Type: [...] (Oral) Resp 18 Ht 167.6 cm (5' 6) Wt 117.5 kg (259 lb) SpO2 99% [...] Metformin 1,000 mg BID Savana Souza MD [facility] PROGRESSon 03-08-2018 Protein mass conc HNO ID: [id number] Author: Jackson Williamson DO Service: Hospital Medicine [...] and patient's developmental delay. Patient has a heel caser who has helped with her medications in [...] (Src) 98.4 (Oral) Resp 18 Ht 5' 6 (1.68m) Wt 259 lb (117.5kg) SpO2 99% [...] 03/08/18 1058 03/08/18 0716 03/08/18 0238 03/07/18 2051 03/07/18 0555 03/06/18 0356 GLUC -- -- 175* [...] 1545 -- 03/01/18 1715 pneumatic compression stockings (ia,oh) VTE Prophylaxis: VTE prophylaxis appropriate Plan of care discussed with: Attending and Patient SIGNATURE: Jackson Williamson DO PATIENT NAME: Cinthya Castillo DATE: March 08, 2018 TIME: 3:28 PM PAGER/CONTACT #: [phone] [facility] THERAPY NTon 03-08-2018 THERAPY NT HNO ID: [id number] Author: Chon (Pt) Serge Service: Physical Therapy Author Type: Physical Therapist Type: Therapy (PT/OT/Speech/Resp) Filed: 03/08/2018 2:47 PM Note Text: Physical Therapy Treatment SERVICE DATE: 03/08/2018 SERVICE TIME: 1357 to 1420 ROOM: [place] [address] Recommended Discharge Disposition: Outpatient Physical Therapy Recommended [...] Diagnosis: Reduced mobility-other Interventions Provided: Neuromuscular Reeducation (98061);Therapeutic Exercise (79780) Therapeutic Exercise (22431) Treatment Minutes: 12 1 unit Skilled Intervention(s): [...] it close by in case you need it. Neuromuscular Re-Education (07593) Treatment Minutes: 11 1 unit Skilled Intervention(s): [...] noted. 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 Home Environment Patient Lives With: Facility Care ([facility]ci) Assistance Available: 24 Hour Entry To Home: [...] Balance: Dynamic Standing Dynamic Standing Balance: Supervision -M: 7: Walk 25 feet or more Functional [...] 2018 TIME: 2:34 PM Normal [facility] THERAPY NT HNO ID: [id number] Author: Portia Rowan/Olman Syed Service: Occupational Therapy Author Type: Occupational Therapist Type: Therapy (PT/OT/Speech/Resp) Filed: 03/08/2018 12:27 PM Note Text: Occupational Therapy Treatment SERVICE DATE: 03/08/2018 SERVICE TIME: 1205 to 1217 ROOM: [id number] Recommended Discharge Disposition: Home Recommended Discharge Disposition Comments: Return to fci with continued assist for IADLs Anticipated Discharge [...] in the bathroom upon arrival, pt states I didn't even need to use my cane Pt does appear steady on feet in [...] of daily living (ADL) Interventions Provided: Self Retirement Management (53486) Self Retirement Management (93635) Treatment Minutes: 25 1 unit Skilled Intervention(s): [...] Microscopic hematuria 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 SIGNATURE: ANAYELI Tellez/Jaky PATIENT NAME: Cinthya Castillo DATE: March 08, 2018 TIME: 12:23 PM Normal [facility] Basic Panelon 03-07-2018 Creatinine mass conc 1.01 mg/dL High 0.51-0.95 [facility] Comment on above: Performed By: #### U RIN2 #### [place] [address] Anion gap molar conc 9 mmol/L Normal 8-16 [facility] Comment on above: Performed By: #### U RIN2 #### [place] [address] CO2 molar conc 27 mmol/L Normal 21-32 [facility] Comment on above: Performed By: #### U RIN2 #### [place] [address] Urea nitrogen mass conc 16 mg/dL Normal 7-18 [facility] Comment on above: Performed By: #### U RIN2 #### [facility] [address] [place] [address] Calcium mass conc 8.7 mg/dL Normal 8.5-10.1 [facility] Comment on above: Performed By: #### U RIN2 #### [facility] [address] [place] [address] Glucose mass conc 170 mg/dL High 70-99 [facility] Comment on above: Performed By: #### U RIN2 #### [facility] [address] [place] [address] Chloride molar conc 106 mmol/L Normal 98-107 [facility] Comment on above: Performed By: #### U RIN2 #### [facility] [address] [place] [address] Potassium molar conc 4.0 mmol/L Normal 3.5-5.1 [facility] Comment on above: Performed By: #### U RIN2 #### [facility] [address] [place] [address] Sodium molar conc 138 mmol/L Normal 136-145 [facility] Comment on above: Performed By: #### U RIN2 #### [facility] [address] [place] [address] CASE MANAGEMon 03-07-2018 CASE MANAGEM HNO ID: [id number] Author: Radha Thomas RN Service: Care Management Author Type: Registered Nurse Type: Care Mgt Progress Note Filed: 03/07/2018 11:58 AM Note Text: CARE MANAGEMENT PROGRESS NOTE SERVICE DATE: 03/07/2018 SERVICE TIME: 11:56 AM LOS: 6 days Needs Prior to Discharge: To Be Determined Placed telephone call to Clifton Murray at [phone] and left VM for a call back regarding med administration and outpatient PT order. Will continue to follow. SIGNATURE: Radha Thomas RN PATIENT NAME: Cinthya Castillo DATE: March 07, 2018 TIME: 11:56 AM PAGER/CONTACT #: [phone] Normal [facility] CONSULT PROGon 03-07-2018 Protein mass conc HNO ID: [id number] Author: Savana Souza Service: Endocrinology Author Type: [...] OF SYSTEMS: SYSTEMIC: no complains, mentions that I am waiting for my lunch and dinner already OBJECTIVE PHYSICAL EXAM: BP 132/77 Pulse 108 Temp 36.9 ?C (98.4 ?F) (Oral) Resp 18 Ht 167.6 cm (5' 6) Wt 117.5 kg (259 lb) SpO2 93% [...] decrease to #1 HS Savana Souza MD [facility] NURSING PROGon 03-07-2018 Protein mass conc HNO ID: [id number] Author: Diomedes (Rn) ESTHER Givens Service: Nursing Author Type: Registered Nurse Type: Nursing Progress Note Filed: 03/07/2018 2:34 PM Note Text: Nursing Progress Note Patient Name: Cinthya Castillo Patient Location: [id number]* __ Daily Note: I spoke with Clifton Murray, pts health care facility administrator at [facility]. She would like to be here when the pt is given diabetic education if we can call her at [phone] to set up an appointment when the [...] note was completed by: Diomedes Givens RN [facility] PROGRESSon 03-07-2018 Protein mass conc HNO ID: [id number] Author: Jackson Williamson DO Service: Hospital Medicine Author Type: Resident Type: Progress Notes Filed: 03/07/2018 4:25 PM Note Text: Attestation signed by Walter Gross at 03/07/2018 10:22 PM History reviewed, patient examined. 57 year old white female, living in [facility]ci, admitted with DKA, s/p fall. States she hadn't used her insulin in a while because she didn't know what to do with her new insulin pens and so she kept it in the refrigerator but did not use. Feeling better. Spoke with her heel caser who was visiting in the room. Currently [...] and patient's developmental delay. Patient has a heel caser who has helped with her medications in [...] (Src) 98.4 (Oral) Resp 18 Ht 5' 6 (1.68m) Wt 259 lb (117.5kg) SpO2 93% [...] 1545 -- 03/01/18 1715 pneumatic compression stockings (ia,oh) VTE Prophylaxis: VTE prophylaxis appropriate Plan of care discussed with: Attending and Patient SIGNATURE: Jackson Williamson DO PATIENT NAME: Cinthya Castillo DATE: March 07, 2018 TIME: 4:25 PM PAGER/CONTACT #: [phone] Normal [facility] Basic Panelon 03-06-2018 Creatinine mass conc 1.09 mg/dL High 0.51-0.95 [facility] Comment on above: Performed By: #### U RIN2 #### [facility] [address] [place] [address] Anion gap molar conc 13 mmol/L Normal 8-16 [facility] Comment on above: Performed By: #### U RIN2 #### [facility] [address] [place] [address] CO2 molar conc 26 mmol/L Normal 21-32 [facility] Comment on above: Performed By: #### U RIN2 #### [facility] [address] [place] [address] Glucose mass conc 206 mg/dL High 70-99 [facility] Comment on above: Performed By: #### U RIN2 #### [facility] [address] [place], [place] [address] Urea nitrogen mass conc 16 mg/dL Normal 7-18 [facility] Comment on above: Performed By: #### U RIN2 #### [facility] [address] [place] [address] Calcium mass conc 8.6 mg/dL Normal 8.5-10.1 [facility] Comment on above: Performed By: #### U RIN2 #### [facility] [address] [place] [address] Chloride molar conc 103 mmol/L Normal 98-107 [facility] Comment on above: Performed By: #### U RIN2 #### [facility] [address] [place] [address] Potassium molar conc 3.7 mmol/L Normal 3.5-5.1 [facility] Comment on above: Performed By: #### U RIN2 #### [facility] [address] [place] [address] Sodium molar conc 138 mmol/L Normal 136-145 [facility] Comment on above: Performed By: #### U RIN2 #### [facility] [address] [place] [address] CONSULTon 03-06-2018 CONSULT HNO ID: [id number] Author: Shailesh Solano Service: Endocrinology Author Type: Physician Type: Consults Filed: 03/06/2018 9:01 AM Note Text: INITIAL CONSULT ENDOCRINOLOGY SERVICE DATE: 03/06/2018 SERVICE TIME: 8:50 AM Requesting Provider: Zkee Montague Opinion/Advice Regarding: Management of diabetes Service: Endocrinology Consult Service Subjective HISTORY OF PRESENT ILLNESS: Ms. Cinthya Castillo is a 57 year old female with Diabetes Mellitus type 2. Poor historian. She apparently has insulin at home, but was not using it. I didn't know how much to take. Some social work program coordinator issues. Has services that come in and [...] or anxiety. Allergic / Immunologic: No known hand cloth folder or short term issues. Objective PHYSICAL EXAM: BP 133/73 Pulse 113 Temp 37.1 ?C (98.8 ?F) (Oral) Resp 18 Ht 167.6 cm (5' 6) Wt 117.5 kg (259 lb) SpO2 96% [...] 10-20%. She is not a candidate for tight control of her glucoses, based on multiple [...] 06, 2018 TIME: 8:50 AM PAGER/CONTACT #: [phone] Normal [facility] Hemogramon 03-06-2018 Erythrocyte distribution width Ratio (RBC) 12.2 % Normal 11.7-14.4 [facility] Comment on above: Performed By: #### U RIN2 #### [facility] [address] [place] [address] Hematocrit Volume Fraction (Bld) 33.2 % Low 34.1-44.9 [facility] Comment on above: Performed By: #### U RIN2 #### [place] [address] Hemoglobin mass conc (Bld) 11.0 g/dL Low 11.2-15.7 [facility] Comment on above: Performed By: #### U RIN2 #### [place] [address] MCH Entitic mass (RBC) 31.3 pg Normal 25.6-32.2 [facility] Comment on above: Performed By: #### U RIN2 #### [facility] [address] [place] [address] MCHC mass conc (RBC) 33.1 % Normal 31.6-34.8 [facility] Comment on above: Performed By: #### U RIN2 #### [facility] [address] [place] [address] MCV Entitic volume (RBC) 94.3 fL Normal 79.4-94.8 [facility] Comment on above: Performed By: #### U RIN2 #### [place] [address] Platelet mean volume Entitic volume (Bld) 10.9 fL Normal 9.4-12.3 [facility] Comment on above: Performed By: #### U RIN2 #### [facility] [address] [place] [address] Platelets #/vol (Bld) 294 thou/cmm Normal 182-369 [facility] Comment on above: Performed By: #### U RIN2 #### [facility] [address] [place] [address] RBC #/vol (Bld) 3.52 mil/cmm Low 3.93-5.22 [facility] Comment on above: Performed By: #### U RIN2 #### [facility] [address] [place] [address] RDW SD 41.9 fl Normal 36.4-46.3 [facility] Comment on above: Performed By: #### U RIN2 #### [facility] [address] [place] [address] WBC #/vol (Bld) 13.39 thou/cmm High 3.98-10.04 [facility] Comment on above: Performed By: #### U RIN2 #### [facility] [address] [place] [address] PLAN OF CAREon 03-06-2018 PLAN OF CARE HNO ID: [id number] Author: Raul Gamino Service: Hospital Medicine Author [...] Gay March 06, 2018 10:23 AM Pager [phone] Normal [facility] PROGRESSon 03-06-2018 Protein mass conc HNO ID: [id number] Author: Anupam Willis Service: Hospital Medicine Author Type: Physician Type: Progress Notes Filed: 03/07/2018 10:05 PM Note Text: SERVICE DATE: 03/06/2018 SERVICE TIME: 9:07 AM HOSPITAL MEDICINE PROGRESS NOTE NIGHT AND WEEKEND COVERAGE: From 7am - 7pm, please call [phone] After 7pm, please call cross cover pager #[phone] HPI Patient is a 57 yo F [...] and patient's developmental delay. Patient has a heel caser who has helped with her medications in the past. SUBJECTIVE Interval Events: Sugars trending down to low 200's. Spoke with Dr. Solano regarding 70/30 regimen, recommended 70 unit BID. Patient endorsing pain in her right buttock this AM. Early abscess found on exam. Will start vancomycin. OBJECTIVE BP 114/74 Pulse 107 Temp (Src) 99.1 (Oral) Resp 18 Ht 5' 6 (1.68m) Wt 259 lb (117.5kg) SpO2 95% [...] 10 mg ORAL DAILY Roberto Carlos (Res) Faisalnikottu 10 mg at 03/05/18 0843 aspirin 81 [...] Ahmad H (Res) Ababneh 500 mg at 03/05/181717 montelukast 10 mg tab(s) (SINGULAIR) 10 mg ORAL AT BEDTIME Ahmad H (Res) Ababneh 10 mg at 03/05/182057 white petrolatum-mineral oil cream (EUCERIN) TOPICAL DAILY Magalys Singleton (Field Laboratory Operator) [place] Diagnostic tests reviewed: Most recent labs and imaging results. Recent Labs 03/06/1835503/04/1845403/03/18 0415 WBC 13.39* 12.55* 12.31* RBC 3.52* 3.52* 3.65* HB 11.0* 10.9* 11.3 HCT 33.2* 33.1* 34.1 PLT 294 247 268 MCV 94.3 94.0 93.4 MCH 31.3 31.0 31.0 MPV 10.9 10.1 10.8 RDW 12.2 12.3 12.3 Recent Labs 03/06/1835503/05/18 0554 03/04/185 03/02/18 0323 03/01/18 1100 GLUC 206* 291* [...] interval not displayed. Recent Labs 03/06/18 0715 03/06/1835503/05/18205403/05/18 1703 03/05/18 0554 03/04/18 0455 03/01/18 1115 [...] 06, 2018 TIME: 9:07 AM PAGER/CONTACT #: [phone] Evaluated independently Agreed with the above notes by Dr. Oliva which reflects my input with the following additions Complains of pain over the right buttock On exam she has large indurated area consistent with cellulitis Will start on empirical Vanc.and observe Lives in a fci May not able to have 4 insulin shots a day. Endo was called and placed on 70/30 insulin 2 times a day Discussed with patient regarding condition and plan Plan her discharge Attestation signed by Anupam Willis MD [facility] Attending March 06, 2018 9:57 PM Normal [facility] Basic Panelon 03-05-2018 Creatinine mass conc 1.11 mg/dL High 0.51-0.95 [facility] Comment on above: Performed By: #### E DGLG #### [place] [address] Anion gap molar conc 14 mmol/L Normal 8-16 [facility] Comment on above: Performed By: #### E DGLG #### [facility] [address] [place], [place] [address] Calcium mass conc 8.4 mg/dL Low 8.5-10.1 [facility] Comment on above: Performed By: #### E DGLG #### [facility] [address] [place], [place] [address] CO2 molar conc 25 mmol/L Normal 21-32 [facility] Comment on above: Performed By: #### E DGLG #### [facility] [address] [place], [place] [address] Urea nitrogen mass conc 21 mg/dL High 7-18 [facility] Comment on above: Performed By: #### E DGLG #### [facility] [address] [place], [place] [address] Glucose mass conc 291 mg/dL High 70-99 [facility] Comment on above: Performed By: #### E DGLG #### [facility] [address] [place], [place] [address] Chloride molar conc 105 mmol/L Normal 98-107 [facility] Comment on above: Performed By: #### E DGLG #### [facility] [address] [place], [place] [address] Potassium molar conc 4.0 mmol/L Normal 3.5-5.1 [facility] Comment on above: Performed By: #### E DGLG #### [facility] [address] [place], [place] [address] Sodium molar conc 140 mmol/L Normal 136-145 [facility] Comment on above: Performed By: #### E DGLG #### [facility] [address] [place], [place] [address] PROGRESSon 03-05-2018 Protein mass conc HNO ID: [id number] Author: Anupam Willis Service: Hospital Medicine Author [...] and patient's developmental delay. Patient has a heel caser who has helped with her medications in [...] (Src) 97.9 (Oral) Resp 18 Ht 5' 6 (1.68m) Wt 259 lb (117.5kg) SpO2 96% [...] H (Res) Ababneh 40 mg at 03/04/18 2145 cefdinir 300 mg (OMNICEF) 300 mg ORAL [...] oil cream (EUCERIN) TOPICAL DAILY Magalys N (Field Laboratory Operator) [place] Diagnostic tests reviewed: Most recent labs [...] 1545 -- 03/01/18 1715 pneumatic compression stockings (ia,me) VTE Prophylaxis: VTE prophylaxis appropriate Plan of care discussed with: Attending and Patient SIGNATURE: Marielos Zhu DO PATIENT NAME: Cinthya Castillo DATE: March 05, 2018 TIME: 9:16 AM PAGER/CONTACT #: [phone] Transferred to my service Chart reviewed Evaluated [...] days Attestation signed by Anupam Willis MD [facility] Attending March 05, 2018 9:56 PM Normal [facility] Basic Panelon 03-04-2018 Creatinine mass conc 1.19 mg/dL High 0.51-0.95 [facility] Comment on above: Performed By: #### E DGLG #### [place] [address] Anion gap molar conc 12 mmol/L Normal 8-16 [facility] Comment on above: Performed By: #### E DGLG #### [facility] [address] [place], [place] [address] CO2 molar conc 25 mmol/L Normal 21-32 [facility] Comment on above: Performed By: #### E DGLG #### [facility] [address] [place], [place] [address] Glucose mass conc 253 mg/dL High 70-99 [facility] Comment on above: Performed By: #### E DGLG #### [facility] [address] [place] [address] Urea nitrogen mass conc 24 mg/dL High 7-18 [facility] Comment on above: Performed By: #### E DGLG #### [facility] [address] [place], [place] [address] Calcium mass conc 8.5 mg/dL Normal 8.5-10.1 [facility] Comment on above: Performed By: #### E DGLG #### [facility] [address] [place] [address] Chloride molar conc 105 mmol/L Normal 98-107 [facility] Comment on above: Performed By: #### E DGLG #### [facility] [address] [place] [address] Potassium molar conc 3.8 mmol/L Normal 3.5-5.1 [facility] Comment on above: Performed By: #### E DGLG #### [facility] [address] [place] [address] Sodium molar conc 138 mmol/L Normal 136-145 [facility] Comment on above: Performed By: #### E DGLG #### [place] [address] CASE MANAGEMon 03-04-2018 CASE MANAGEM HNO ID: [id number] Author: Radha (Rn) ESTHER Thomas Service: Care Management Author Type: Registered Nurse Type: Care Mgt Progress Note Filed: 03/04/2018 9:39 AM Note Text: CARE MANAGEMENT PROGRESS NOTE SERVICE DATE: 03/04/2018 SERVICE TIME: 9:38 AM LOS: 3 days Needs Prior to Discharge: To Be Determined Left VM at [phone] for Clifton Murray, patient voip engineer to discuss PT recommendation of outpatient therapy. Current plan is d/c home once medically ready. SIGNATURE: Radha Thomas RN PATIENT NAME: Cinthya Castillo DATE: March 04, 2018 TIME: 9:38 AM PAGER/CONTACT #: [phone] Normal [facility] Hemogramon 03-04-2018 Erythrocyte distribution width Ratio (RBC) 12.3 % Normal 11.7-14.4 [facility] Comment on above: Performed By: #### E DGLG #### [facility] [address] [place] [address] Hematocrit Volume Fraction (Bld) 33.1 % Low 34.1-44.9 [facility] Comment on above: Performed By: #### E DGLG #### [facility] [address] [place] [address] Hemoglobin mass conc (Bld) 10.9 g/dL Low 11.2-15.7 [facility] Comment on above: Performed By: #### E DGLG #### [facility] [address] [place] [address] MCH Entitic mass (RBC) 31.0 pg Normal 25.6-32.2 [facility] Comment on above: Performed By: #### E DGLG #### [facility] [address] [place] [address] MCHC mass conc (RBC) 32.9 % Normal 31.6-34.8 [facility] Comment on above: Performed By: #### E DGLG #### [place] [address] MCV Entitic volume (RBC) 94.0 fL Normal 79.4-94.8 [facility] Comment on above: Performed By: #### E DGLG #### [place] [address] Platelet mean volume Entitic volume (Bld) 10.1 fL Normal 9.4-12.3 [facility] Comment on above: Performed By: #### E DGLG #### [place] [address] Platelets #/vol (Bld) 247 thou/cmm Normal 182-369 [facility] Comment on above: Performed By: #### E DGLG #### [place] [address] RBC #/vol (Bld) 3.52 mil/cmm Low 3.93-5.22 [facility] Comment on above: Performed By: #### E DGLG #### [place] [address] RDW SD 42.2 fl Normal 36.4-46.3 [facility] Comment on above: Performed By: #### E DGLG #### [place] [address] WBC #/vol (Bld) 12.55 thou/cmm High 3.98-10.04 [facility] Comment on above: Performed By: #### E DGL #### [facility] [address] [place] [address] NURSING PROGon 03-04-2018 Protein mass conc HNO ID: [id number] Author: Graciela (Rn) ESTHER Pineda Service: Nursing Author Type: Registered Nurse Type: Nursing Progress Note Filed: 03/04/2018 9:06 PM Note Text: House med paged regarding pt blood sugar of 425. Will give scheduled 60 U of lantus and new order for 15 U log received. Normal [facility] PROGRESSon 03-04-2018 Protein mass conc HNO ID: [id number] Author: Marielos Lovelace) Audra Service: Hospital Medicine [...] complaints. BG remains elevated. Left message with mattress spring encaser (Clifton, ) to further discuss resources available in the [facility] to encourage medication adherence. PE: BP 126/64 Pulse 104 Temp 37.5 ?C (99.5 ?F) (Oral) Resp 18 Ht 167.6 cm (5' 6) Wt 117.5 kg (259 lb) SpO2 95% [...] 7 day course. Anticipate discharge back to [facility] once blood sugars improved. Zeke Montague MD [...] and patient's developmental delay. Patient has a heel caser who has helped with her medications in [...] before meals today. Pending further recommendation from mattress spring encaser regarding resources to monitor compliance when patient is discharged to fci. OBJECTIVE BP 126/64 Pulse 104 Temp (Src) 99.5 (Oral) Resp 18 Ht 5' 6 (1.68m) Wt 259 lb (117.5kg) SpO2 95% [...] Ahmad H (Res) Ababneh 20 Units at 12/14/18 1159 insulin lispro pen (rapid acting) (HumaLOG [...] oil cream (EUCERIN) TOPICAL DAILY Magalys N (Field Laboratory Operator) [place] Diagnostic tests reviewed: Most recent labs [...] 1545 -- 03/01/18 1715 pneumatic compression stockings (ia,oh) VTE Prophylaxis: VTE prophylaxis appropriate Plan of care discussed with: Attending and Patient SIGNATURE: Marielos Zhu DO PATIENT NAME: Cinthya Castillo DATE: March 04, 2018 TIME: 12:51 PM PAGER/CONTACT #: [phone] Normal [facility] THERAPY NTon 03-04-2018 THERAPY NT HNO ID: [id number] Author: Mariana (Pt) MARIFER Mann Service: Physical Therapy Author Type: Physical Therapist Type: Therapy (PT/OT/Speech/Resp) Filed: 03/04/2018 2:21 PM Note Text: Physical Therapy Treatment SERVICE DATE: 03/04/2018 SERVICE TIME: 1322 to 1337 ROOM: [place] [address] Recommended Discharge Disposition: Outpatient Physical Therapy Recommended [...] Diagnosis: Reduced mobility-other Interventions Provided: Therapeutic Activity (82545) Therapeutic Activity (15821) Treatment Minutes: 15 1 unit Skilled Intervention(s): [...] noted 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 Denies any pain/discomfort and Agreeable to PT Home Environment Patient Lives With: [facility]) Assistance Available: 24 Hour Entry To Home: [...] Standing Dynamic Standing Balance: Stand By [facility]: Walk 25 feet or more Functional [...] 2018 TIME: 2:19 PM Normal [facility] THERAPY NT HNO ID: [id number] Author: Bruna Rowan/Olman Pantoja OT Service: Occupational Therapy Author Type: Occupational Therapist Type: Therapy (PT/OT/Speech/Resp) Filed: 03/04/2018 9:27 AM Note Text: Occupational Therapy Treatment SERVICE DATE: 03/04/2018 SERVICE TIME: 0825 to 0850 ROOM: [place] [address] Recommended Discharge Disposition: Home Recommended Discharge Disposition Comments: Return to [facility]ci with continued assist for IADLs Anticipated Discharge [...] of daily living (ADL) Interventions Provided: Self Retirement Management (69424) Self Retirement Management (85900) Treatment Minutes: 25 2 units Skilled Intervention(s): [...] G CODE: OT 6 Clicks Score: 23 (12/14/18 0825) Self Care Current Status (G8987): CI (03/04/18824) Self Care Goal Status (G8988): CH (03/04/18824) Based on clinical assessment and the score on the 6 Clicks Functional Assessment Tool, the G code and corresponding severity modifiers are documented above. 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 C/o discomfort due to pimple on R buttock. Home Environment Patient Lives With: [facility]) Assistance Available: 24 Hour Entry To Home: [...] complete details for this therapy evaluation/treatment. SIGNATURE: ANAYELI Loomis/Jaky PATIENT NAME: Cinthya Castillo DATE: March 04, 2018 TIME: 9:24 AM Normal [facility] Basic Panelon 12-13-2018 Creatinine mass conc 1.42 mg/dL High 0.51-0.95 [facility] Comment on above: Performed By: #### E DGLG #### [facility] [address] [place], [place] [address] Anion gap molar conc 13 mmol/L Normal 8-16 [facility] Comment on above: Performed By: #### E DGLG #### [facility] [address] [place], [place] [address] CO2 molar conc 24 mmol/L Normal 21-32 [facility] Comment on above: Performed By: #### E DGLG #### [facility] [address] [place], [place] [address] Glucose mass conc 398 mg/dL High 70-99 [facility] Comment on above: Performed By: #### E DGLG #### [facility] [address] [place], [place] [address] Urea nitrogen mass conc 25 mg/dL High 7-18 [facility] Comment on above: Performed By: #### E DGLG #### [facility] [address] [place], [place] [address] Calcium mass conc 8.6 mg/dL Normal 8.5-10.1 [facility] Comment on above: Performed By: #### E DGLG #### [facility] [address] [place], [place] [address] Chloride molar conc 102 mmol/L Normal 98-107 [facility] Comment on above: Performed By: #### E DGLG #### [facility] [address] [place], [place] [address] Potassium molar conc 4.2 mmol/L Normal 3.5-5.1 [facility] Comment on above: Performed By: #### E DGLG #### [facility] [address] [place] [address] Sodium molar conc 135 mmol/L Low 136-145 [facility] Comment on above: Performed By: #### E DGLG #### [facility] [address] [place], [place] [address] Creatinine mass conc 1.25 mg/dL High 0.51-0.95 [facility] Comment on above: Performed By: #### E DGLG #### [facility] [address] [place] [address] Urea nitrogen mass conc 28 mg/dL High 7-18 [facility] Comment on above: Performed By: #### E DGLG #### [facility] [address] [place] [address] Anion gap molar conc 14 mmol/L Normal 8-16 [facility] Comment on above: Performed By: #### E DGLG #### [facility] [address] [place] [address] Calcium mass conc 8.8 mg/dL Normal 8.5-10.1 [facility] Comment on above: Performed By: #### E DGLG #### [facility] [address] [place] [address] CO2 molar conc 25 mmol/L Normal 21-32 [facility] Comment on above: Performed By: #### E DGLG #### [facility] [address] [place] [address] Glucose mass conc 230 mg/dL High 70-99 [facility] Comment on above: Performed By: #### E DGLG #### [facility] [address] [place] [address] Chloride molar conc 104 mmol/L Normal 98-107 [facility] Comment on above: Performed By: #### E DGLG #### [facility] [address] [place] [address] Potassium molar conc 3.6 mmol/L Normal 3.5-5.1 [facility] Comment on above: Performed By: #### E DGLG #### [facility] [address] [place] [address] Sodium molar conc 139 mmol/L Normal 136-145 [facility] Comment on above: Performed By: #### E DGLG #### [facility] [address] [place] [address] Hemogramon 03-03-2018 Erythrocyte distribution width Ratio (RBC) 12.3 % Normal 11.7-14.4 [facility] Comment on above: Performed By: #### E DGLG #### [facility] [address] [place] [address] Hematocrit Volume Fraction (Bld) 34.1 % Normal 34.1-44.9 [facility] Comment on above: Performed By: #### E DGLG #### [facility] [address] [place] [address] Hemoglobin mass conc (Bld) 11.3 g/dL Normal 11.2-15.7 [facility] Comment on above: Performed By: #### E DGLG #### [facility] [address] [place] [address] MCH Entitic mass (RBC) 31.0 pg Normal 25.6-32.2 [facility] Comment on above: Performed By: #### E DGLG #### [place] [address] MCHC mass conc (RBC) 33.1 % Normal 31.6-34.8 [facility] Comment on above: Performed By: #### E DGLG #### [place] [address] MCV Entitic volume (RBC) 93.4 fL Normal 79.4-94.8 [facility] Comment on above: Performed By: #### E DGLG #### [place] [address] Platelet mean volume Entitic volume (Bld) 10.8 fL Normal 9.4-12.3 [facility] Comment on above: Performed By: #### E DGLG #### [facility] [address] [place] [address] Platelets #/vol (Bld) 268 thou/cmm Normal 182-369 [facility] Comment on above: Performed By: #### E DGLG #### [facility] [address] [place] [address] RBC #/vol (Bld) 3.65 mil/cmm Low 3.93-5.22 [facility] Comment on above: Performed By: #### E DGLG #### [address] [place], [place] [address] RDW SD 42.5 fl Normal 36.4-46.3 [facility] Comment on above: Performed By: #### E DGLG #### [facility] [address] [place], [place] [address] WBC #/vol (Bld) 12.31 thou/cmm High 3.98-10.04 [facility] Comment on above: Performed By: #### E DGLG #### [place] [address] Lipid Profileon 03-03-2018 Cholesterol in HDL mass conc 29 mg/dL Normal >40 [facility] Comment on above: Performed By: #### E DGLG #### [place] [address] Cholesterol in LDL mass conc 64 mg/dL Normal [facility] Comment on above: Result Comment: No C AD and with fewer than 2 CAD risk factors <160 mg/dL No CAD but with 2 or more CAD risk factors <130 mg/dL Definite CAD or other atherosclerotic disease <100 mg/dL Performed By: #### E DGLG #### [place] [address] Cholesterol in LDL/Cholesterol in HDL mass ratio 2.2 Normal 0.6-3.6 [facility] Comment on above: Result Comment: LDL, VLDL,LDL/HDL, Invalid if Triglyceride >400 Performed By: #### E DGLG #### [address] [address] Cholesterol.total/Maude sterol in HDL mass ratio 4.6 {ratio} Normal 1.8-5.3 [facility] Comment on above: Performed By: #### E DGLG #### [place] [address] Cholesterol in VLDL mass conc 41 mg/dL Normal <50 Desired [facility] Comment on above: Performed By: #### E DGLG #### [place] [address] Triglyceride mass conc 207 mg/dL High 0-149 [facility] Comment on above: Result Comment: < 20 0 Desirable Result invalid if not a fasting specimen. Performed By: #### E DGLG #### [facility] [address] [place] [address] Cholesterol mass conc 134 mg/dL Normal 0-199 [facility] Comment on above: Result Comment: <200 Desirable 200-240 Borderline >240 High Performed By: #### E DGLG #### [facility] [address] [place] [id number] NURSING PROGon 03-03-2018 Protein mass conc HNO ID: [id number] Author: Graciela (Rn) ESTHER Pineda Service: Nursing Author Type: Registered Nurse Type: Nursing Progress Note Filed: 03/03/2018 8:50 PM Note Text: Spoke with house med resident about pt. Blood sugar being critically high. Accucheck machine unable to read blood sugar due to being high. Orders for log sliding scale given and for BMP to be sent. Normal [facility] PROGRESSon 03-03-2018 Protein mass conc HNO ID: [id number] Author: Marielos Zhu Service: Hospital Medicine Author [...] UTI. HX: Blood glucose improved. Spoke with mattress spring encaser this morning; unlikely to be able to provide more supervision on medication adherence but will explore options. Will also confer with PCP for preferred insulin regimen (basal-bolus vs. 70/30 bid). PE: BP 118/71 Pulse 106 Temp 36 ?C (96.8 ?F) (Oral) Resp 20 Ht 167.6 cm (5' 6) Wt 117.5 kg (259 lb) SpO2 94% [...] and patient's developmental delay. Patient has a heel caser who has helped with her medications in [...] (Src) 98.6 (Oral) Resp 20 Ht 5' 6 (1.68m) Wt 259 lb (117.5kg) SpO2 94% [...] H (Res) Ababneh 81 mg at 03/02/18 173 atorvastatin 40 mg tab(s) (LIPITOR) 40 mg ORAL AT BEDTIME Ahmad H (Res) Ababneh 40 mg at 03/02/182111 cefTRIAXone iv piggyback 1 g in dextrose (iso-osmotic) 50 mL (ROCEPHIN) 1 g INTRAVENOUS q 24 H Roberto Carlos (Res) Pannikottu Last Rate: 100 mL/hr at 03/02/18 0910 1 g at 03/02/18909 dextrose 40 % 15 g 15 g [...] MEALS Zeke Montague 12 Units at 03/02/18 1734 insulin lispro pen (rapid acting) (HumaLOG KWIKPEN) SUBCUTANEOUS w MEALS Zeke Montague 10 Units at 03/02/18 173 insulin lispro pen [...] oil cream (EUCERIN) TOPICAL DAILY Magalys N (Field Laboratory Operator) [place] Diagnostic tests reviewed: Most recent labs [...] AM PAGER/CONTACT #: [phone] Normal [facility] THERAPY NTon 03-03-2018 THERAPY NT HNO ID: [id number] Author: Mariana (Pt) MARIFER Mann Service: Physical Therapy Author Type: Physical Therapist Type: Therapy (PT/OT/Speech/Resp) Filed: 03/03/2018 9:27 AM Note Text: Physical Therapy Treatment SERVICE DATE: 03/03/2018 SERVICE TIME: 40 to 0903 ROOM: [place] [address] Recommended Discharge Disposition: Outpatient Physical Therapy Recommended [...] Diagnosis: Reduced mobility-other Interventions Provided: Therapeutic Exercise (99858);Therapeutic Activity (93048) Therapeutic Exercise (44867) Treatment Minutes: 15 1 unit Skilled Intervention(s): Instruction in therapeutic exercise . Verbal and tactile cuing provided . to perform properly without compensation or use of momentum. 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 Denies any pain/discomfort and Agreeable to PT Home Environment Patient Lives With: [facility]) Assistance Available: 24 Hour Entry To Home: [...] 2018 TIME: 9:25 AM Normal [facility] ALLIED HEALTHon 03-02-2018 ALLIED HEALTH HNO ID: [id number] Author: Cinthya (Rn) ESTHER Maloney Service: Diabetes Education Author Type: Registered Nurse Type: Allied Health Filed: 03/02/2018 4:23 PM Note Text: DIABETES EDUCATION PROGRESS NOTE SERVICE DATE: 03/02/2018 SERVICE TIME: 1500 RECOMMENDATIONS: Patient needs to follow-up with primary care physician after discharge. Prescriptions for diabetic supplies -insulin and glucometer. [facility] lives at [facility] and has meals provided and clothes washed. [...] Developmentally disbled Family support: patient lives at fci Education Type: Individual instruction Written instruction - handouts Verbal instruction Demonstration-Hands on Learning Response to education: States/Identifies, Return Demonstration, Needs Review and will need assist and supervision at [facility]ci. Education provided to: Patient. Teachback method used. Time Spent (Minutes): 30 SIGNATURE: Cinthya Maloney RN PATIENT NAME: Cinthya Castillo DATE: March 02, 2018 TIME: 4:17 PM PAGER: [phone] Normal [facility] Basic Panelon 03-02-2018 Creatinine mass conc 1.16 mg/dL High 0.51-0.95 [facility] Comment on above: Performed By: #### E DGLG #### [place] [address] Anion gap molar conc 16 mmol/L Normal 8-16 [facility] Comment on above: Performed By: #### E DGLG #### [address] [address] Calcium mass conc 8.8 mg/dL Normal 8.5-10.1 [facility] Comment on above: Performed By: #### E DGLG #### [facility] [address] [place], [place] [address] CO2 molar conc 22 mmol/L Normal 21-32 [facility] Comment on above: Performed By: #### E DGLG #### [facility] [address] [place], [place] [address] Glucose mass conc 447 mg/dL Critically high 70-99 [facility] Comment on above: Performed By: #### E DGLG #### [facility] [address] [place], [place] [address] Urea nitrogen mass conc 32 mg/dL High 7-18 [facility] Comment on above: Performed By: #### E DGLG #### [facility] [address] [place], [place] [address] Chloride molar conc 98 mmol/L Normal 98-107 [facility] Comment on above: Performed By: #### E DGLG #### [facility] [address] [place] [address] Potassium molar conc 4.0 mmol/L Normal 3.5-5.1 [facility] Comment on above: Performed By: #### E DGLG #### [facility] [address] [place] [address] Sodium molar conc 132 mmol/L Low 136-145 [facility] Comment on above: Performed By: #### E DGLG #### [facility] [address] [place] [address] Creatinine mass conc 1.10 mg/dL High 0.51-0.95 [facility] Comment on above: Performed By: #### E DKG #### [facility] [address] [place] [address] Urea nitrogen mass conc 37 mg/dL High 7-18 [facility] Comment on above: Performed By: #### E DKG #### [facility] [address] [place] [address] Anion gap molar conc 16 mmol/L Normal 8-16 [facility] Comment on above: Performed By: #### E DKG #### [facility] [address] [place] [place] [address] Calcium mass conc 8.8 mg/dL Normal 8.5-10.1 [facility] Comment on above: Performed By: #### E DKG #### [facility] [address] [place] [address] CO2 molar conc 20 mmol/L Low 21-32 [facility] Comment on above: Performed By: #### E DKG #### [facility] [address] [place] [address] Glucose mass conc 359 mg/dL High 70-99 [facility] Comment on above: Performed By: #### E DKG #### [facility] [address] [place] [address] Chloride molar conc 102 mmol/L Normal 98-107 [facility] Comment on above: Performed By: #### E DKG #### [facility] [address] [place] [address] Potassium molar conc 3.8 mmol/L Normal 3.5-5.1 [facility] Comment on above: Performed By: #### E DKG #### [facility] [address] [place], [place] [address] Sodium molar conc 134 mmol/L Low 136-145 [facility] Comment on above: Performed By: #### E DKG #### [facility] [address] [place], [place] [address] CASE MGT INIT RANDIon 2017 CASE MGT INIT RANDI HNO ID: [id number] Author: Radha (Rn) ESTHER Thomas Service: Care Management Author Type: Registered Nurse Type: Care Mgt Initial Assessment Filed: 03/02/2018 1:18 PM Note Text: CARE MANAGEMENT: ASSESSMENT AND DISCHARGE PLAN SERVICE DATE: 03/02/2018 SERVICE TIME: 11:21 AM PRIMARY CARE PHYSICIAN: Kristel Nuens MD ADMISSION STATUS: Inpatient Needs Prior to Discharge: To Be Determined MEDICAL: Patient/Insurance Policy Issue Clerk Stated Goals: To return home to life as it was Health Insurance: [facility] MEDICAID None Health Issues Impacting Discharge Plan: None and mild MRDD Last Admission Date: none Is this Within the Past 30 days? No Advance Directive: Current Advance Directive: None Workforce Management Consultant Attempted to Assist with AD Completion: Yes [...] opportunity to ask questions and stated her demurrage worker Clifton usually assists with medical information FUNCTIONAL AND COGNITIVE/BEHAVIORAL PRIOR TO ADMISSION: Baseline Mental Status: Alert AND Oriented, Person, Place , Time and Situation Functional Status: Needs Assistance Does Patient Currently Receive Any Community Services or Home Care? [phone] Equipment Prior to Admission: Cane - Straight Has the Patient Been in a [facility] Facility in the Past 30 days? No SOCIAL: Living Arrangement: Home, lives in a facility known as [facility]. An adult fci Lives With: essentially a fci, with multiple adults Financial Resources: Disabled Primary Contact: Extended Emergency Contact Information Primary Emergency Contact: Clifton Murray Mobile Relation: [facility] Workforce Management Consultant Supportive: Yes Other Important Patient Contacts: Joyce Edouard, fnps of [facility] [address], facility in which patient resides [phone] Caregiver Assessment: Caregiver is ready, willing and able to meet the patient's needs as recommended by the inter-professional team? Yes Patient's transition needs and plan for meeting these needs: return to adult fci Does the patient have an acute stroke diagnosis, or has the patient had a stroke during this admission? No Medication Adherence: I am convinced of the importance of my prescription medication: Agree completely - 0 I worry that my prescription medication will do more harm than good to me Disagree completely - 0 I feel financially burdened by my [id number] expenses for my prescription medication: Disagree completely [...] to patient and Clifton Murray, the patient's health care facility administrator from [facility],at bedside. Patient resides in essentially an adult fci. Clifton provides transportation and can provide transport at d/c. +Rx coverage- patient has docudose delivered from [employer] on [address]. [place] does assist patient as needed with medical forms and social needs as they present themselves. No current needs identified. Will continue to follow. SIGNATURE: Radha Thomas RN PATIENT NAME: Cinthya Castillo DATE: March 02, 2018 TIME: 11:21 AM PAGER/CONTACT #: [phone] [facility] CONSULT PROGon 03-02-2018 Protein mass conc HNO ID: [id number] Author: Cassandra (Esther) ESTHER Barkley Service: Wound Care Team Author Type: Registered Nurse Type: Consult Progress Note Filed: 03/02/2018 9:19 AM Note Text: WOUND CARE NURSE CONSULT NOTE SERVICE DATE: 03/02/2018 SERVICE TIME: 835 REASON FOR VISIT: Wound TIME SPENT (minutes): 15 Wound care consulted for right elbow. Patient seen by FATOUMATA DonovanC, and swati intake clinician. Abrasion to right elbow. Start xeroform, and cover dressing daily. Dermatologic rash/wound to buttocks. Start critic aid clear BID and PRN incontinence to bilateral buttocks. Allevyn to sacrum. Turn schedule. [id number] bed. Offload heels with pillows. Eucerin to BLE and feet, avoid between toes, daily. Wound care to sign off. Please reconsult if needed. Documentation from Wound Expert can be found in scanned documents. SIGNATURE: Cassandra Barkley RN, CWOCN PATIENT NAME: Cinthya Castillo DATE: March 02, 2018 TIME: 9:17 AM CONTACT#: [id number] Normal [facility] Comprehensive Panelon 2017 ALP enzyme act/vol 106 U/L Normal 46-116 [facility] Comment on above: Performed By: #### E DKG #### [address] [address] Protein mass conc 7.0 g/dL Normal 6.4-8.2 [facility] Comment on above: Performed By: #### E DKG #### [facility] [address] [place], [place] [address] Bilirubin mass conc 0.6 mg/dL Normal 0.2-1.0 [facility] Comment on above: Performed By: #### E DKG #### [facility] [address] [place], [place] [address] ALT enzyme act/vol 23 U/L Normal 12-78 [facility] Comment on above: Performed By: #### E DKG #### [address] [address] AST enzyme act/vol 14 U/L Normal 9-37 [facility] Comment on above: Performed By: #### E DKG #### [facility] [address] [place], [place] [address] Creatinine mass conc 1.23 mg/dL High 0.51-0.95 [facility] Comment on above: Performed By: #### E DKG #### [facility] [address] [place], [place] [address] Glucose mass conc 297 mg/dL High 70-99 [facility] Comment on above: Performed By: #### E DKG #### [facility] [address] [place], [place] [address] Albumin mass conc 2.7 g/dL Low 3.4-5.0 [facility] Comment on above: Performed By: #### E DKG #### [facility] [address] [place] [address] Anion gap molar conc 15 mmol/L Normal 8-16 [facility] Comment on above: Performed By: #### E DKG #### [facility] [address] [place], [place] [address] Calcium mass conc 8.1 mg/dL Low 8.5-10.1 [facility] Comment on above: Performed By: #### E DKG #### [facility] [address] [place], [place] [address] CO2 molar conc 22 mmol/L Normal 21-32 [facility] Comment on above: Performed By: #### E DKG #### [facility] [address] [place], [place] [address] Urea nitrogen mass conc 36 mg/dL High 7-18 [facility] Comment on above: Performed By: #### E DKG #### [facility] [address] [place], [place] [address] Chloride molar conc 103 mmol/L Normal 98-107 [facility] Comment on above: Performed By: #### E DKG #### [facility] [address] [place], [place] [address] Potassium molar conc 3.7 mmol/L Normal 3.5-5.1 [facility] Comment on above: Performed By: #### E DKG #### [facility] [address] [place] [address] Sodium molar conc 136 mmol/L Normal 136-145 [facility] Comment on above: Performed By: #### E DKG #### [facility] [address] [place] [address] Hemogramon 03-02-2018 Erythrocyte distribution width Ratio (RBC) 12.6 % Normal 11.7-14.4 [facility] Comment on above: Performed By: #### E DKG #### [facility] [address] [place] [address] Hematocrit Volume Fraction (Bld) 33.2 % Low 34.1-44.9 [facility] Comment on above: Performed By: #### E DKG #### [place] [address] Hemoglobin mass conc (Bld) 11.0 g/dL Low 11.2-15.7 [facility] Comment on above: Performed By: #### E DKG #### [place] [address] MCH Entitic mass (RBC) 30.5 pg Normal 25.6-32.2 [facility] Comment on above: Performed By: #### E DKG #### [place] [address] MCHC mass conc (RBC) 33.1 % Normal 31.6-34.8 [facility] Comment on above: Performed By: #### E DKG #### [place] [address] MCV Entitic volume (RBC) 92.0 fL Normal 79.4-94.8 [facility] Comment on above: Performed By: #### E DKG #### [place] [address] Platelet mean volume Entitic volume (Bld) 10.8 fL Normal 9.4-12.3 [facility] Comment on above: Performed By: #### E DKG #### [place] [address] Platelets #/vol (Bld) 261 thou/cmm Normal 182-369 [facility] Comment on above: Performed By: #### E DKG #### [facility] [address] [place] [address] RBC #/vol (Bld) 3.61 mil/cmm Low 3.93-5.22 [facility] Comment on above: Performed By: #### E DKG #### [facility] [address] [place] [address] RDW SD 42.4 fl Normal 36.4-46.3 [facility] Comment on above: Performed By: #### E DKG #### [facility] [address] [place] [address] WBC #/vol (Bld) 14.22 thou/cmm High 3.98-10.04 [facility] Comment on above: Performed By: #### E DKG #### [place] [address] NUTRITIONon 03-02-2018 NUTRITION HNO ID: [id number] Author: Perla Elias RD Service: Nutrition Therapy [...] March 02, 2018 TIME: 3:43 PM PAGER: [phone] Normal [facility] PLAN OF CAREon 03-02-2018 PLAN OF CARE HNO ID: [id number] Author: Gabo Jackson Service: Pharmacy Author Type: Pharmacist Type: Plan of Care Filed: 03/02/2018 1:37 PM Note Text: MEDICATION HISTORY AND MEDICATION RECONCILIATION Patient Name:Gregor Castillo : 1960 Source of history:Patient: Reliability of source: Patient does not know her meds but takes all that is in the compliace packaging from Maria G, Pharmacy records: [facility] records and [facility] Medication Nonadherence Identified: Patient has compliance packaging and was supposed to be on insulin but has not been taking for a while. The above information represents the best possible medication history: Yes Reconciliation completed? Yes Medications intentionally held at admission: Most medications held on admission and new insulin regimen started. Will discuss with med team at afternoon rounds regarding updated [employer]TENNA INSTALLER med list Additional comments: Confirmed all meds filled at [facility] in compliance package on 01/24/2018 Allergies: ALLERGIES Allergen Reactions - Penicillin Unknown Pt unaware of reaction Preferred Pharmacy: [facility] Current ANTENNA INSTALLER Medications: Prior to Admission medications as of [...] Jackson, PharmD March 02, 2018 1:15 PM Normal [facility] PROGRESSon 03-02-2018 Protein mass conc HNO ID: [id number] Author: Marielos Zhu Service: Hospital Medicine Author [...] and patient's developmental delay. Patient has a heel caser who has helped with her medications in [...] (Src) 98.1 (Oral) Resp 20 Ht 5' 6 (1.68m) Wt 259 lb (117.5kg) SpO2 96% [...] (rapid acting) (HumaLOG KWIKPEN) SUBCUTANEOUS w MEALS Roberto Carlos (Res) Pannikottu 5 Units at 03/02/18 1316 insulin lispro pen (rapid acting) (HumaLOG KWIKPEN) SUBCUTANEOUS AT BEDTIME Roberto Carlos (Res) Pannikottu 5 Units at 03/01/182122 lisinopril 20 mg tab(s) (ZESTRIL, PRINIVIL) 20 mg ORAL DAILY Roberto Carlos (Res) Pannikottu 20 mg at 03/02/18 0910 white petrolatum-mineral oil cream (EUCERIN) TOPICAL DAILY Magalys N (Field Laboratory Operator) Bl[place]le Diagnostic tests reviewed: Most recent labs [...] 1117 -- 03/01/18 1715 pneumatic compression stockings (ia,oh) VTE Prophylaxis: VTE prophylaxis appropriate Plan of care discussed with: Attending and Patient SIGNATURE: Marielos Zhu DO PATIENT NAME: Cinthya Castillo DATE: March 02, 2018 TIME: 2:07 PM PAGER/CONTACT #: [phone] Normal [facility] THERAPY NTon 03-02-2018 THERAPY NT HNO ID: [id number] Author: Mariana PattenPt) MARIFER Mann Service: Physical Therapy Author Type: Physical Therapist Type: Therapy (PT/OT/Speech/Resp) Filed: 03/02/2018 11:55 AM Note Text: Physical Therapy Evaluation SERVICE DATE: 03/02/2018 SERVICE TIME: 1120 to 1143 ROOM: [place] [id number] Recommended Discharge Disposition: Outpatient Physical Therapy Recommended [...] in Chair;Call Grayson in Reach;Other: See Comment (voip engineer present) Tolerated Full Session Physical Therapy Problem [...] Diagnosis: Reduced mobility-other Interventions Provided: Evaluation;Gait Training (62725) $ Evaluation-Low (67695) Billed Units: 1 unit Gait Training (81643) Treatment Minutes: 8 1 unit Skilled Intervention(s): [...] reported fall at home. Per chart - Patient was getting out of bed early this AM and fell forward on her belly while reaching for the doorknob Imaging: xray IMPRESSION: Degenerative changes as described [...] file. 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 Patient states she fell because she was rushing when got up out of bed. Agreeable to PT Home Environment Patient Lives With: Facility Care (fci) Assistance Available: 24 Hour Entry To Home: [...] 2018 TIME: 11:51 AM Normal [facility] THERAPY NT HNO ID: [id number] Author: Bruna Rowan/Olman Pantoja OT Service: Occupational Therapy Author Type: Occupational Therapist Type: Therapy (PT/OT/Speech/Resp) Filed: 03/02/2018 11:43 AM Note Text: Occupational Therapy Evaluation SERVICE DATE: 03/02/2018 SERVICE TIME: 1111 to 1126 ROOM: [id number] Recommended Discharge Disposition: Home Recommended Discharge Disposition Comments: Return to fci with continued assist for IADLs Anticipated Discharge [...] living (ADL) Interventions Provided: Evaluation $ Evaluation-Low (77880) Billed Units: 1 unit Total Treatment Time [...] in DKA. 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 No c/o pain. Home Environment Patient Lives With: Facility Care (fci - lives with 3 males and aids [...] complete details for this therapy evaluation/treatment. SIGNATURE: ANAYELI Loomis/Jaky PATIENT NAME: Cinthya Castillo DATE: March 02, 2018 TIME: 11:40 AM Normal [facility] Basic Panelon 03-01-2018 Glucose mass conc 524 mg/dL Critically high 70-99 [facility] Comment on above: Performed By: #### E DKG #### [place] [address] Creatinine mass conc 1.25 mg/dL High 0.51-0.95 [facility] Comment on above: Performed By: #### E DKG #### [place] [address] Anion gap molar conc 16 mmol/L Normal 8-16 [facility] Comment on above: Performed By: #### E DKG #### [facility] [address] [place] [address] CO2 molar conc 23 mmol/L Normal 21-32 [facility] Comment on above: Performed By: #### E DKG #### [facility] [address] [place] [address] Urea nitrogen mass conc 47 mg/dL High 7-18 [facility] Comment on above: Performed By: #### E DKG #### [facility] [address] [place] [address] Calcium mass conc 8.7 mg/dL Normal 8.5-10.1 [facility] Comment on above: Performed By: #### E DKG #### [facility] [address] [place] [address] Chloride molar conc 99 mmol/L Normal 98-107 [facility] Comment on above: Performed By: #### E DKG #### [facility] [address] [place] [address] Potassium molar conc 4.0 mmol/L Normal 3.5-5.1 [facility] Comment on above: Performed By: #### E DKG #### [facility] [address] [place] [address] Sodium molar conc 134 mmol/L Low 136-145 [facility] Comment on above: Performed By: #### E DKG #### [facility] [address] [place] [address] CHEST 2 VIEWSon 03-01-2018 CHEST 2 VIEWS Performed at [facility] APPROVED BY: Alex Cam MD EXAMINATION: [...] IMPRESSION: There is no acute disease. Normal [facility] Comprehensive Panelon 2017 ALT enzyme act/vol 28 U/L Normal 12-78 [facility] Comment on above: Performed By: #### P 14 #### [facility] [address] [place], [place] [address] ALP enzyme act/vol 122 U/L High 46-116 [facility] Comment on above: Performed By: #### P 14 #### [facility] [address] [place], [place] [address] Bilirubin mass conc 0.9 mg/dL Normal 0.2-1.0 [facility] Comment on above: Performed By: #### P 14 #### [facility] [address] [place], [place] [address] Glucose mass conc 735 mg/dL Critically high 70-99 [facility] Comment on above: Performed By: #### P 14 #### [facility] [address] [place], [place] [address] Protein mass conc 8.2 g/dL Normal 6.4-8.2 [facility] Comment on above: Performed By: #### P 14 #### [facility] [address] [place], [place] [address] AST enzyme act/vol 19 U/L Normal 9-37 [facility] Comment on above: Performed By: #### P 14 #### [facility] [address] [place], [place] [address] Creatinine mass conc 1.51 mg/dL High 0.51-0.95 [facility] Comment on above: Performed By: #### P 14 #### [facility] [address] [place], [place] [address] Albumin mass conc 3.2 g/dL Low 3.4-5.0 [facility] Comment on above: Performed By: #### P 14 #### [facility] [address] [place], [place] [address] Anion gap molar conc 20 mmol/L High 8-16 [facility] Comment on above: Performed By: #### P 14 #### [facility] [address] [place] [address] Calcium mass conc 9.3 mg/dL Normal 8.5-10.1 [facility] Comment on above: Performed By: #### P 14 #### [facility] [address] [place] [address] CO2 molar conc 20 mmol/L Low 21-32 [facility] Comment on above: Performed By: #### P 14 #### [facility] [address] [place] [address] Urea nitrogen mass conc 55 mg/dL High 7-18 [facility] Comment on above: Performed By: #### P 14 #### [facility] [address] [place] [address] Chloride molar conc 91 mmol/L Low 98-107 [facility] Comment on above: Performed By: #### P 14 #### [facility] [address] [place] [address] Potassium molar conc 4.0 mmol/L Normal 3.5-5.1 [facility] Comment on above: Performed By: #### P 14 #### [facility] [address] [place] [address] Sodium molar conc 127 mmol/L Low 136-145 [facility] Comment on above: Performed By: #### P 14 #### [facility] [address] [place] [address] Cult Bloodon 03-01-2018 Cult Blood Test performed at [facility] No growth The blood cultures are under-filled. Adding volumes lower or higher than 8-10 ml per aerobic bottle or 5-7 ml per anaerobic bottle, which is the manufacturers recommended volume, may adversely affect the recovery and/or detection of organisms. Normal [facility] Comment on above: Performed By: #### E DKG #### [facility] [address] [place] [address] Cult Blood Test performed at [facility] No growth Normal [facility] Comment on above: Performed By: #### E DGLG #### [facility] [address] [place] [address] Cult Urineon 03-01-2018 Cult Urine Test performed at [facility] Mixed skin dani. No further identification or susceptibility testing will be performed. Please submit a new specimen. Plates will be held for 5 days. Normal [facility] Comment on above: Performed By: #### E DGLG #### [facility] [address] [place] [address] ED NOTEon 03-01-2018 ED NOTE HNO ID: [id number] Author: Antoine Moise RN Service: Emergency Medicine Author Type: Registered Nurse Type: ED Notes Filed: 03/01/2018 11:47 AM Note Text: Urine culture obtained AND sent Normal [facility] ED NOTE HNO ID: [id number] Author: Antoine Moise RN Service: Emergency Medicine Author Type: Registered Nurse Type: ED Notes Filed: 03/01/2018 11:27 AM Note Text: Clean catch urine specimen obtained AND sent to lab. Culture held in lab Normal [facility] ED NOTE HNO ID: [id number] Author: Antoine Moise RN Service: Emergency Medicine Author Type: Registered Nurse Type: ED Notes Filed: 03/01/2018 11:32 AM Note Text: Radiology notified pt is ready for x-ray Normal [facility] ED NOTE HNO ID: [id number] Author: Paris King (Tech) Service: Emergency Medicine Author Type: Geographic Analyst Type: ED Notes Filed: 03/01/2018 10:41 AM Note Text: Blood sugar check performed per request of Sherry with the result of critically high. Sherry notified at this time. Normal [facility] ED NOTE HNO ID: [id number] Author: Cassandra Dailey RN Service: Emergency Medicine Author Type: Registered Nurse Type: ED Notes Filed: 03/01/2018 10:34 AM Note Text: Pt placed on monitor at this time. Side rails up. Call light within reach. Fall risk band on Normal [facility] ED NOTE HNO ID: [id number] Author: Cassandra Dailey RN Service: Emergency Medicine Author Type: Registered Nurse Type: ED Notes Filed: 03/01/2018 10:27 AM Note Text: Per ems, pt lives in fci. Fell last night after dinner. Denies hitting head. States woke up this am with weak legs. Ems called. Ems check fsbs, 550>. Pt A/Ox4 upon arrival. Normal [facility] ED NOTE HNO ID: [id number] Author: Jeramy (Medic) Chuyita Valdivia Service: (none) Author Type: Account Processor and Geographic Analyst Type: ED Notes Filed: 03/01/2018 10:20 AM Note Text: Bed: 10-ED Expected date: 03/01/18 Expected time: 10:11 AM Means of arrival: [place] [facility] Comments: afd av-1 hi bs weakness Normal [facility] ED PROV NOTEon 03-01-2018 Protein mass conc HNO ID: [id number] Author: Radha Romero MD Service: Emergency Medicine [...] tachycardia no ST abnormalities consistent with acute VA. The patient had an IV established blood [...] Romero MD 03/01/18 1725 Normal [facility] Protein mass conc HNO ID: [id number] Author: Joss Andrew MD Service: Emergency Medicine [...] reaching for her door handle when her knees gave out. She states that she fell forward on [...] no fevers or chills. Also reports a pimple on her right hip which she would like examined. She reports dysuria without hematuria or polyuria. EMS checked a blood sugar was critically high greater than 550 which is the maximum per meter. She is unsure what her baseline blood thinners. Denies other complaints. History provided by: Patient, medical records and EMS personnel History limited by: Psychiatric disorder language interpreter used: No PAST MEDICAL HISTORY Diagnosis Date [...] (Src) 98.2 (Oral) Resp 20 Ht 5' 6 (1.68m) Wt 258 lb (117.0kg) SpO2 98% [...] of insulin (HCC) RONNI (acute kidney injury) ([facility]) MDM / Disposition / Plan MDM The patient was ADMITTED TO: tele.. Condition at time of disposition: stable SIGNATURE: MD Joss Boudreaux (Res) MD [place] Resident 03/01/18 1603 Radha Romero MD 03/01/18 1740 Normal [facility] Glucoseon 03-01-2018 Glucose mass conc 679 mg/dL High 70-99 [facility] Comment on above: Performed By: #### E DGLG #### [facility] [address] [place] [address] HIP 3V PELV/AP/LAT LEFTon HIP 3V PELV/AP/LAT LEFT Performed at [facility] APPROVED BY: Alex Cam MD EXAM TITLE: [...] Otherwise negative pelvis and left hip. Normal [facility] HISTORY PHYSICALon 8 HISTORY PHYSICAL HNO ID: [id number] Author: Davy Ontiveros (Res) Abache Service: Hospital Medicine Author Type: Resident Type: HANDP Filed: 03/01/2018 5:45 PM Note Text: Attestation signed by Zeke Montague at 03/02/2018 4:30 PM House Medicine Service Attending Attestation I evaluated the patient and personally participated in the carig components. 57 yo female with hx of HTN, DM, developmental delay, and OA/DJD who presented to the ED s/p fall and was admitted with DKA; also with UTI. HX: Blood sugars remain elevated. Patient is unsure about medication regimen but states it is delivered by doc-u-dose. 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 PE: BP 118/69 Pulse 115 Temp 36.7 ?C (98.1 ?F) (Oral) Resp 20 Ht 167.6 cm (5' 6) Wt 117.5 kg (259 lb) SpO2 96% [...] UTI. SW consult to assist with contacting mattress spring encaser; given elevated blood sugar/A1C and patient lack [...] (Src) 98.2 (Oral) Resp 15 Ht 5' 6 (1.68m) Wt 258 lb (117.0kg) SpO2 96% [...] Lymph 1.18 - 3.74 thou/cmm 1.64 Abs. Knott 0.27 - 0.70 thou/cmm 1.07 (H) Abs. Eosin 0.00 - 0.31 thou/cmm 0.09 Abs. Baso 0.01 - 0.08 thou/cmm 0.05 Color YELLOW Urine Appearance CLOUDY Glucose, Urine Negative mg/dL >=1000 (A) Ketones, Urine Negative mg/dL TRACE (A) Hemoglobin, Urine Negative SMALL (A) Protein, Urine Negative mg/dL NEGATIVE Nitrites Urine Negative NEGATIVE Bilirubin, Urine Negative NEGATIVE Specific Lowman, Ur 1.005 - 1.030 1.034 pH, Urine [...] 1711 -- 03/01/18 1715 pneumatic compression stockings (fl,oh) VTE Prophylaxis: VTE prophylaxis appropriate SIGNATURE: Davy Goddard MD PATIENT NAME: Cinthya Castillo DATE: March 01, 2018 TIME: 5:44 PM PAGER/CONTACT #: [phone] Normal [facility] Hemogram/Diffon 03-01-2018 Abs Immature Grans 0.23 thou/cmm High 0.00-0.05 [facility] Comment on above: Performed By: #### E DKG #### [place] [address] Abs. Baso 0.05 thou/cmm Normal 0.01-0.08 [facility] Comment on above: Result Comment: Smea r scanned; tech agrees with automated differential Performed By: #### E DKG #### [place] [address] Abs. Knott 1.07 thou/cmm High 0.27-0.70 [facility] Comment on above: Performed By: #### E DKG #### [place] [address] Abs. Neut (ANC) 12.00 thou/cmm High 1.56-6.13 [facility] Comment on above: Performed By: #### E DKG #### [place] [address] Basophils/100 WBC (Bld) 0.3 % Normal [facility] Comment on above: Performed By: #### E DKG #### [place] [address] Eosinophils #/vol (Bld) 0.09 thou/cmm Normal 0.00-0.31 [facility] Comment on above: Performed By: #### E DKG #### [place] [address] Eosinophils/100 WBC (Bld) 0.6 % Normal [facility] Comment on above: Performed By: #### E DKG #### [place] [address] Immature Grans 1.50 % Normal [facility] Comment on above: Performed By: #### E DKG #### [place] [address] Lymphocytes #/vol (Bld) 1.64 thou/cmm Normal 1.18-3.74 [facility] Comment on above: Performed By: #### E DKG #### [facility] [address] [place] [address] Lymphocytes/100 WBC (Bld) 10.9 % Normal [facility] Comment on above: Performed By: #### E DKG #### [facility] [address] [place] [address] Monocytes/100 WBC (Bld) 7.1 % Normal [facility] Comment on above: Performed By: #### E DKG #### [facility] [address] [place] [address] Seg Neutrophil 79.6 % Normal [facility] Comment on above: Performed By: #### E DKG #### [facility] [address] [place] [address] Erythrocyte distribution width Ratio (RBC) 12.3 % Normal 11.7-14.4 [facility] Comment on above: Performed By: #### E DKG #### [facility] [address] [place] [address] Hematocrit Volume Fraction (Bld) 36.3 % Normal 34.1-44.9 [facility] Comment on above: Performed By: #### E DKG #### [place] [address] Hemoglobin mass conc (Bld) 12.3 g/dL Normal 11.2-15.7 [facility] Comment on above: Performed By: #### E DKG #### [facility] [address] [place] [address] MCH Entitic mass (RBC) 30.5 pg Normal 25.6-32.2 [facility] Comment on above: Performed By: #### E DKG #### [facility] [address] [place] [address] MCHC mass conc (RBC) 33.9 % Normal 31.6-34.8 [facility] Comment on above: Performed By: #### E DKG #### [address] [place], [place] [address] MCV Entitic volume (RBC) 90.1 fL Normal 79.4-94.8 [facility] Comment on above: Performed By: #### E DKG #### [facility] [address] [place] [address] Platelet mean volume Entitic volume (Bld) 10.3 fL Normal 9.4-12.3 [facility] Comment on above: Performed By: #### E DKG #### [facility] [address] [place] [address] Platelets #/vol (Bld) 268 thou/cmm Normal 182-369 [facility] Comment on above: Performed By: #### E DKG #### [place] [address] RBC #/vol (Bld) 4.03 mil/cmm Normal 3.93-5.22 [facility] Comment on above: Performed By: #### E DKG #### [place] [address] RDW SD 40.4 fl Normal 36.4-46.3 [facility] Comment on above: Performed By: #### E DKG #### [place] [address] WBC #/vol (Bld) 15.08 thou/cmm High 3.98-10.04 [facility] Comment on above: Performed By: #### E DKG #### [place] [address] Hgb A1con 03-01-2018 Hemoglobin A1c/Hemoglobin.total mass fraction (Bld) 14.7 % High 4.2-6.3 [facility] Comment on above: Result Comment: Meth od is National Glycohemoglobin Standardization Program (NGSP) compliant. Performed By: #### E DKG #### [place] [address] Hemoglobin A1c/Hemoglobin.total mass fraction (Bld) 375 mg/dl Normal [facility] Comment on above: Performed By: #### E DKG #### [facility] [address] [place], [place] [address] Lactic Acidon 03-01-2018 Lactate molar conc 1.6 mmol/L Normal 0.5-2.2 [facility] Comment on above: Performed By: #### E DKG #### [facility] [address] [place], [place] [address] Lipase Bloodon 03-01-2018 Lipase Blood 290 U/L Normal 73-393 [facility] Comment on above: Performed By: #### L IP #### [facility] [address] [place] [address] Magnesium Bloodon 03-01-2018 Magnesium mass conc 1.8 mg/dL Normal 1.6-2.6 [facility] Comment on above: Performed By: #### E DKG #### [facility] [address] [place] [address] Phosphorus Bloodon 8 Phosphate mass conc 2.5 mg/dL Normal 2.5-4.9 [facility] Comment on above: Performed By: #### E DKG #### [facility] [address] [place] [address] Potassiumon 03-01-2018 Potassium molar conc 4.1 mmol/L Normal 3.4-4.5 [facility] Comment on above: Performed By: #### E DKG #### [facility] [address] [place] [address] Urinalysis Routineon 018 Bacteria LM.HPF #/area (Urine sed) FEW Normal None [facility] Comment on above: Performed By: #### U RIN2 #### [facility] [address] [place] [address] Ep Cells Urine 8.4 /hpf High 0.0-5.0 [facility] Comment on above: Performed By: #### U RIN2 #### [facility] [address] [place] [address] Hyaline Cast 1.9 /lpf High 0.0-1.0 [facility] Comment on above: Performed By: #### U RIN2 #### [facility] [address] [place] [address] RBC,Urine 46.8 /hpf High 0.0-5.0 [facility] Comment on above: Performed By: #### U RIN2 #### [facility] [address] [place] [address] WBC, Urine 158.5 /hpf High 0.0-5.0 [facility] Comment on above: Performed By: #### U RIN2 #### [facility] [address] [place] [address] Appearance Nom (U) CLOUDY Normal [facility] Comment on above: Performed By: #### U RIN2 #### [place] [address] Bilirubin Urine Negative Normal Negative [facility] Comment on above: Performed By: #### U RIN2 #### [place] [address] Color Nom (U) YELLOW Normal [facility] Comment on above: Performed By: #### U RIN2 #### [place] [address] Glucose Ql (U) >=1000 Abnormal Negative [facility] Comment on above: Performed By: #### U RIN2 #### [place] [address] Hemoglobin,Urine SMALL Abnormal Negative [facility] Comment on above: Performed By: #### U RIN2 #### [place] [address] Ketone Urine TRACE Abnormal Negative [facility] Comment on above: Performed By: #### U RIN2 #### [place] [address] Leukocytes Esterase MODERATE Abnormal Negative [facility] Comment on above: Performed By: #### U RIN2 #### [place] [address] Nitrites Urine Negative Normal Negative [facility] Comment on above: Performed By: #### U RIN2 #### [place] [address] pH (U) 5.0 [pH] Normal 5.0-8.0 [facility] Comment on above: Performed By: #### U RIN2 #### [facility] [address] [place], [place] [address] Protein mass conc (U) Negative Normal Negative [facility] Comment on above: Performed By: #### U RIN2 #### [facility] [address] [place], [place] [address] Specific Lowman, Ur 1.034 Normal 1.005-1.030 [facility] Comment on above: Performed By: #### U RIN2 #### [facility] [address] [place], [place] [address] Urobilinogen,Ur 0.2 EU/dL Normal 0.0-1.0 [facility] Comment on above: Performed By: #### U RIN2 #### [facility] [address] [place], [place] [address] Venous Blood Gason 8 Base Excess -3.2 mEq/L Low -2.5 to 2.5 [facility] Comment on above: Performed By: #### E DVBG #### [facility] [address] [place], [place] [address] HCO3 molar conc (Bld) 21.2 mmol/L Normal 21.0-30.0 [facility] Comment on above: Performed By: #### E DVBG #### [facility] [address] [place], [place] [address] PCO2 Venous 38.1 mm Hg Low 40.6-60.0 [facility] Comment on above: Performed By: #### E DVBG #### [facility] [address] [place], [place] [address] pH Venous 7.364 Normal 7.320-7.430 [facility] Comment on above: Performed By: #### E DVBG #### [facility] [address] [place], [place] [address] PO2 Venous 42.3 mm Hg High 15.9-37.5 [facility] Comment on above: Performed By: #### E DVBG #### [facility] [address] [place], [place] [address] Culture, urine Bacteria identified Cx Nom (U) Positive [facility] Work Phone: Vital Signs Date Time Vital Sign Value Performing Clinician Elke woodard 09-08-2023 13:04-0400 Body height 167.6 cm Lex Roca MD Work Phone: [facility] 09-08-2023 13:04-0400 Body mass index (BMI) [Ratio] 50.84 kg/m2 Lex Roca MD Work Phone: [facility] 09-08-2023 13:04-0400 Body weight 142.88 kg Lex Roca MD Work Phone: [facility] 09-07-2023 23:42-0400 Diastolic blood pressure 89 mm[Hg] Debora Whitewater DO Work Phone: [facility] 09-07-2023 23:42-0400 Heart rate 84 /min Debora Whitewater DO Work Phone: [facility] 09-07-2023 23:42-0400 Respiratory rate 16 /min Debora Whitewater DO Work Phone: [facility] 09-07-2023 23:42-0400 SaO2% (BldA) [Mass fraction] 98 % Debora Whitewater DO Work Phone: [facility] 09-07-2023 23:42-0400 Systolic blood pressure 140 mm[Hg] Debora Whitewater DO Work Phone: [facility] 09-07-2023 17:28-0400 Body temperature 98.6 [degF] Debora Whitewater DO Work Phone: [facility] 12-11-2022 13:25-0400 Diastolic blood pressure 83 mm[Hg] Micheal Silva MD Work Phone: [facility] 12-11-2022 13:25-0400 Heart rate 102 /min Micheal Silva MD Work Phone: [facility] 12-11-2022 13:25-0400 Respiratory rate 18 /min Micheal Silva MD Work Phone: [facility] 12-11-2022 13:25-0400 SaO2% (BldA) [Mass fraction] 93 % Micheal Silva MD Work Phone: [facility] 12-11-2022 13:25-0400 Systolic blood pressure 145 mm[Hg] Micheal Silva MD Work Phone: [facility] 12-11-2022 11:50-0400 Body height 167.6 cm Micheal Silva MD Work Phone: [facility] 12-11-2022 11:50-0400 Body mass index (BMI) [Ratio] 51 kg/m2 Micheal Silva MD Work Phone: [facility] 12-11-2022 11:50-0400 Body temperature 97.5 [degF] Micheal Silva MD Work Phone: [facility] 12-11-2022 11:50-0400 Body weight 143.34 kg Micheal Silva MD Work Phone: [facility] 11-12-2022 10:30-0400 Diastolic blood pressure 82 mm[Hg] Micheal Silva MD Work Phone: [facility] 11-12-2022 10:30-0400 Heart rate 86 /min Micheal Silva MD Work Phone: [facility] 11-12-2022 10:30-0400 Systolic blood pressure 151 mm[Hg] Micheal Silva MD Work Phone: [facility] 05-21-2022 10:00-0500 Body height 167.6 cm Lex Roca Work Phone: [facility] 05-21-2022 10:00-0500 Body mass index (BMI) [Ratio] 50.84 kg/m2 Lxe Roca Work Phone: [facility] 05-21-2022 10:00-0500 Body weight 142.88 kg Lex Roac Work Phone: [facility] Encounters Encounter Date Encounter Type Care Provider Facility Start: 09-20-2024 ambulatory Lex Roca MARY Facil ity:[facility] Start: 08-16-2024 ambulatory Lex Roca MARY Facil ity:[facility] Start: 07-19-2024 Registered Referred Lex [place] - [address] Start: 07-19-2024 End: 07-19-2024 ambulatory Lex Roca MARY Facility:[facility] Start: 07-17-2024 End: 07-17-2024 ambulatory Lex HERNANDEZ [facility] Work Phone: Start: 07-17-2024 End: 07-17-2024 Departed Referred Lex Vargas - [address] Start: 07-17-2024 End: 07-17-2024 ambulatory Lex Roca MARY Facility:[facility] Start: 07-13-2024 End: 07-14-2024 Emergency department patient visit LEX CHANELLE [facility] Start: 07-12-2024 End: 07-13-2024 Emergency department patient visit LEX ROCA [facility] Start: 07-08-2024 End: 07-11-2024 Evaluation and management of inpatient LEX ROCA [facility] Start: 07-04-2024 Registered Referred Lex Vargas - [address] Start: 07-04-2024 End: 07-04-2024 ambulatory Lex Roca MARY Facility:[facility] Start: 07-03-2024 End: 07-04-2024 Emergency department patient visit Marcel PENGKA [facility] Start: 06-23-2024 End: 06-23-2024 Departed Referred Lex Roca -[place] [facility] - [address] Start: 06-23-2024 End: 06-23-2024 ambulatory Lex Roca MARY Facility:[facility] Start: 05-03-2024 ambulatory Lex Roca MARY Facil ity:[facility] Start: 05-03-2024 Registered Referred Lex [place] - [address] Start: 02-05-2025 ambulatory Lex HERNANDEZ Facil ity:[facility] Start: 04-26-2024 Registered Referred Lex Vargas - [address] Start: 04-24-2024 ambulatory Lex HERNANDEZ Facil ity:[facility] Start: 04-24-2024 Registered Referred Lex Vargas - [address] Start: 04-19-2024 End: 04-19-2024 Departed Referred Lex Vargas - [address] Start: 04-19-2024 End: 04-19-2024 ambulatory Lex HERNANDEZ Facility:[facility] Start: 04-10-2024 End: 04-10-2024 Departed Referred Lex Vargas - [address] Start: 04-10-2024 End: 04-10-2024 ambulatory Lex HERNANDEZ Facility:[facility] Start: 03-27-2024 End: 03-27-2024 ambulatory Lex HERNANDEZ Facility:[facility] Start: 03-16-2024 ambulatory Lex HERNANDEZ Facil ity:[facility] Start: 03-09-2024 End: 03-09-2024 ambulatory Lex HERANNDEZ Facility:[facility] Start: 03-02-2024 End: 03-02-2024 ambulatory Lex HERNANDEZ Facility:[facility] Start: 02-23-2024 End: 02-23-2024 ambulatory Lex HERNANDEZ Facility:[facility] Start: 02-10-2024 End: 02-10-2024 ambulatory Lex HERNANDEZ Facility:[facility] Start: 01-18-2024 End: 01-18-2024 ambulatory Lex HERNANDEZ Facility:[facility] Start: 12-03-2023 End: 12-03-2023 ambulatory Lex HERNANDEZ Facility:[facility] Start: 10-18-2023 End: 10-18-2023 ambulatory Lex HERNANDEZ Facility:[facility] Start: 09-08-2023 End: 09-08-2023 Subsequent hospital visit by physician Lex Roca MD Work Phone: [facility] Comment on above: Encounter for screen ing mammogram for malignant neoplasm of breast Start: 09-07-2023 End: 09-07-2023 Emergency department patient visit Debora Paulson DO Work Phone: [facility] Comment on above: Shortness of breath (Primary Dx); Chronic kidney disease, unspecified CKD stage; Asymptomatic hypertension Start: 05-10-2023 Transcribe Orders Lex hargrove Work Phone: [facility] Comment on above: Encounter for screen ing mammogram for malignant neoplasm of breast (Primary Dx) Start: 02-13-2023 End: 02-13-2023 ambulatory [facility] Work Phone: Start: 02-13-2023 End: 02-13-2023 Departed Referred [facility] [place] - [address] Start: 02-13-2023 Registered Referred [facility] - [address] Start: 02-05-2023 End: 02-05-2023 ambulatory [facility] Work Phone: Start: 02-05-2023 End: 02-05-2023 Departed Referred [facility] [place] - [address] Start: 12-11-2022 End: 12-11-2022 Subsequent hospital visit by physician Micheal Arnold MD Work Phone: [facility] Comment on above: Abdominal pain, left lower quadrant (Primary Dx) Start: 11-25-2022 End: 11-25-2022 ambulatory [facility] Work Phone: Start: 11-25-2022 End: 11-25-2022 Departed Referred [facility] [place] - [address] Start: 11-25-2022 Registered Referred [facility] - [address] Start: 11-12-2022 End: 11-12-2022 Office outpatient new 60 minutes Micheal Arnold MD Work Phone: [facility] Comment on above: Abdominal pain, left lower quadrant (Primary Dx); Nausea and vomiting, unspecified vomiting type Start: 11-05-2022 End: 11-05-2022 ambulatory [facility] Work Phone: Start: 11-05-2022 End: 11-05-2022 Departed Referred [facility] [place] - [address] Start: 10-09-2022 End: 10-09-2022 ambulatory [facility] Work Phone: Start: 10-09-2022 End: 10-09-2022 Departed Referred [facility] - [address] Start: 10-09-2022 Registered Referred [facility] [place] - [address] Start: 08-28-2022 End: 08-28-2022 ambulatory [facility] Work Phone: Start: 08-28-2022 End: 08-28-2022 Departed Referred [facility] [place] - [address] Start: 07-16-2022 End: 07-16-2022 ambulatory [facility] Work Phone: Start: 07-16-2022 End: 07-16-2022 Departed Referred [facility] - [address] Start: 06-04-2022 End: 06-04-2022 ambulatory [facility] Work Phone: Start: 06-04-2022 End: 06-04-2022 Departed Referred [facility] [place] - [address] Start: 05-21-2022 End: 05-21-2022 Subsequent hospital visit by physician Lex Roca Work Phone: [facility] Comment on above: Encounter for screen ing mammogram for malignant neoplasm of breast Start: 03-09-2022 End: 03-09-2022 ambulatory [facility] Work Phone: Start: 03-09-2022 End: 03-09-2022 [facility] [address] Start: 12-04-2021 End: 12-04-2021 ambulatory [facility] Work Phone: Start: 12-04-2021 End: 12-04-2021 Departed Referred [facility] - [address] Start: 10-20-2021 End: 10-20-2021 Departed Referred [facility] - [address] Start: 08-11-2021 End: 08-11-2021 Departed Referred [facility] - [address] Start: 05-20-2021 End: 05-20-2021 Subsequent hospital visit by physician Lex Roca MD Work Phone: [facility] Comment on above: Arrived Start: 05-05-2021 End: 05-05-2021 Departed Referred [facility] - [address] Start: 08-12-2018 End: 08-12-2018 Patient encounter procedure JERAMY [facility] Start: 08-09-2018 End: 08-09-2018 Patient encounter procedure HANANE Hargrove [facility] Start: 07-17-2018 End: 07-18-2018 Patient encounter procedure [facility] Start: 06-27-2018 End: 06-27-2018 Emergency department patient visit [facility] Facility:[facility] Start: 06-25-2018 End: 06-25-2018 Patient encounter procedure KRUPA STEINBERG [facility] Start: 05-06-2018 End: 05-07-2018 Patient encounter procedure CORY Marcel LA [facility] Start: 03-01-2018 End: 03-15-2018 Evaluation and management of inpatient [facility] Facility:[facility] Procedures Date Procedure Procedure Detail Performing Clinician [...] 09-07-2023 Assay of troponin quantitative Ravi Carney [employer] Work Phone: Start: 09-07-2023 Basic metabolic pane l calcium total Ravi Carney [employer] Work Phone: Start: 09-07-2023 Radiologic exam ches t single view Ravi Carney [employer] Work Phone: Start: 09-07-2023 Ecg routine ecg w/le ast 12 lds trcg only w/o i&r Ravi Carney [employer] Work Phone: Start: 02-13-2023 Urine culture Start: 12-11-2022 Glucose quantitative blood xcpt reagent strip Micheal Arnold MD Work Phone: Start: 12-11-2022 Colonoscopy Michael Silva MD Work Phone: Start: 08-28-2022 Investigation of tra nsfusion reaction Start: 08-28-2022 Microbial culture, routine Start: 05-21-2022 End: 05-21-2022 Mammography Lex Roca Work Phone: Start: 05-20-2021 Screening digital br east tomosynthesis bi Lex Roca MD Work Phone: Start: 06-27-2018 Electrocardiogram SUBAN RAZACK Start: 03-01-2018 Electrocardiogram SUBAN RAZACK Microbial culture, routine Urine culture Plan of Treatment Date Care Activity Detail Author Start: 12-11-2032 Screening for malignant neoplasm of colon [facility] Start: 03-01-2028 DTaP/Tdap/Td vaccine (4 - Td or Tdap) DTaP/Tdap/Td vaccine (4 - Td or Tdap) [facility] Start: 03-01-2028 DTaP/Tdap/Td Vaccines (4 - Td or Tdap) DTaP/Tdap/Td Vaccines (4 - Td or Tdap) [facility] Start: 2026 Pneumococcal 0-64 years Vaccine (2 of 2 - PPSV23) Pneumococcal 0-64 years Vaccine (2 of 2 - PPSV23) [facility] Start: 2026 Pneumococcal Vaccine: Pediatrics (0 to 5 Years) and At-Risk Patients (6 to 64 Years) (3 - PPSV23 if available, else PCV20) Pneumococcal Vaccine: Pediatrics (0 to 5 Years) and At-Risk Patients (6 to 64 Years) (3 - PPSV23 if available, else PCV20) [facility] Start: 2026 Pneumococcal Vaccine: Pediatrics (0 to 5 Years) and At-Risk Patients (6 to 64 Years) (3 of 3 - PPSV23 or PCV20) Pneumococcal Vaccine: Pediatrics (0 to 5 Years) and At-Risk Patients (6 to 64 Years) (3 of 3 - PPSV23 or PCV20) [facility] Start: 07-12-2025 Glaucoma screening Diabetes: Retinopathy Screening [facility] Start: 09-07-2024 Screening for malignant neoplasm of breast Mammogram [facility] Start: 09-06-2024 Diabetes: Estimated Glomerular Filtration Rate for Kidney Health Diabetes: Estimated Glomerular Filtration Rate for Kidney Health [facility] Start: 06-04-2024 Glaucoma screening Diabetes: Retinopathy Screening [facility] Start: 11-21-2023 Influenza vaccination Influenza Vaccine (Season Ended) [facility] Start: 09-08-2023 End: 09-08-2023 Patient encounter procedure 09/08/2023 1:00 PM EDT Appointment [facility] [address] [place] [id number] Lex Roca MD [address] [place], [place] [id number] [facility] Start: 08-06-2023 Glaucoma screening Diabetes: Retinopathy Screening [facility] Start: 05-22-2023 Screening for malignant neoplasm of breast Mammogram [facility] Start: 05-10-2023 End: 07-08-2024 DBT Breast - bilateral screening Bilateral screening mammogram with tomosynthesis Imaging Routine Encounter for screening mammogram for malignant neoplasm of breast Expected: 05/10/2023, Expires: 07/08/2024 [facility] Work Phone: Comment on above: Expected: [...] Vaccine ( season) COVID-19 Vaccine ( season) [facility] Start: 11-20-2022 Influenza vaccination Influenza Vaccine (#1) [facility] Start: 2021 RSV Immunization aged 60 or older (1 - 1-dose 60+ series) RSV Immunization aged 60 or older (1 - 1-dose 60+ series) [facility] Start: 11-20-2021 Influenza vaccination Influenza Vaccine (#1) [facility] Start: 11-20-2020 Influenza vaccination Flu vaccine (#1) [facility] Start: 09-15-2020 COVID-19 Vaccine (3 - Booster for Pfizer series) COVID-19 Vaccine (3 - Booster for Pfizer series) [facility] Start: 06-12-2020 COVID-19 Vaccine (3 - Booster for Pfizer series) COVID-19 Vaccine (3 - Booster for Pfizer series) [facility] Start: 07-18-2019 Creatinine measurement Creatinine monitoring [facility] Start: 07-18-2019 Potassium monitoring Potassium monitoring [facility] Start: 07-17-2019 Hemoglobin A1c measurement A1C test (Diabetic or Prediabetic) [facility] Start: 12-16-2018 Screening for malignant neoplasm of breast Breast cancer screen [facility] Start: 12-08-2011 Shingles Vaccine (1 of 2) Shingles Vaccine (1 of 2) [facility] Start: 12-08-2011 Zoster Vaccines (1 of 2) Zoster Vaccines (1 of 2) [facility] Start: 2006 Screening for malignant neoplasm of colon [facility] Start: 12-08-1991 Screening for malignant neoplasm of cervix [facility] Start: 1982 Screening for malignant neoplasm of cervix Pap smear [facility] Start: 1980 Hepatitis B vaccine (1 of 3 - Risk 3-dose series) Hepatitis B vaccine (1 of 3 - Risk 3-dose series) [facility] Start: 1980 Urine screening for protein Diabetes: Urine Protein Screening [facility] Start: 12-08-1979 Diabetes: Estimated Glomerular Filtration Rate for Kidney Health Diabetes: Estimated Glomerular Filtration Rate for Kidney Health [facility] Start: 12-08-1979 Diabetes: Urine Albumin-Creatinine Ratio for Kidney Health Diabetes: Urine Albumin-Creatinine Ratio for Kidney Health [facility] Start: 12-08-1979 Diabetic retinal exam Diabetic retinal exam [facility] Start: 12-08-1979 Hepatitis C screening Hepatitis C Screening [facility] Start: 12-08-1979 Urine screening for protein Diabetic microalbuminuria test [facility] Start: 1976 HIV screening HIV screen [facility] Start: 1973 Depression Screen Depression Screen [facility] Start: 1973 Depression Screening Depression Screening [facility] Start: 12-08-1971 Diabetic foot examination [facility] Start: 12-08-1971 Lipid panel Lipid screen [facility] Start: 12-08-1971 Preventive dental service Diabetes: Dental Exam [facility] Start: 1962 MMR Vaccines (1 of 1 - Standard series) MMR Vaccines (1 of 1 - Standard series) [facility] Start: 1961 Hemoglobin A1c measurement Diabetes: Hemoglobin A1C [facility] Start: 1961 Hepatitis B Vaccines (1 of 3 - 3-dose series) Hepatitis B Vaccines (1 of 3 - 3-dose series) [facility] Start: 1961 Hepatitis C screening Hepatitis C screen [facility] Start: 1961 HIV screening HIV Screening [facility] Start: 1961 Lipid panel Lipid Panel [facility] Start: 1961 Screening for malignant neoplasm of colon [facility] Start: 1961 Thyroid stimulating hormone measurement TSH Level [facility] Immunizations Immunization Date Immunization Notes Care Provider Fa danny 04-17-2020 Pfizer SARS-CoV-2 Vaccination Lex Roca Work Phone: [facility] 03-27-2020 Pfizer SARS-CoV-2 Vaccination Lex Roca Work Phone: [facility] 12-21-2017 tetanus toxoid, redu yohana diphtheria toxoid, and acellular pertussis vaccine, adsorbed Lex Roca MD Work Phone: [facility] 12-12-2017 Influenza, Quadv, 6 mo and older, IM, PF (Flulaval, Fluarix) Lex Roca MD Work Phone: [facility] 12-12-2017 influenza virus vacc ine, unspecified formulation Lex Roca Work Phone: [facility] 10-23-2017 tetanus toxoid, redu yohana diphtheria toxoid, and acellular pertussis vaccine, adsorbed Lex Roca MD Work Phone: [facility] Payers Date Payer Category Payer Self-pay [id number] 2018 Medicaid [place] [facility] [place] [id number] 2018-Present [address] [place] [address] Medicaid [id number] 1961 Unknown [id number] 2.16.840.1.704787.3.579.2.278 1961 Unknown [id number] 2.16.840.1.631033.3.579.2.278 1961 Unknown [id number] 2.16.840.1.692754.3.579.2.668 1961 Unknown [id number] 2.16.840.1.307869.3.579.2.598 1961 Unknown [id number] 2.16.840.1.398785.3.579.2.598 1961 Unknown [id number] 2.16.840.1.446474.3.579.2.598 1961 Unknown [id number] 2..840.1.345280.3.579.2.598 1959 Medicaid [id number] Unknown Unknown [id number] 2..840.1.183606.3.579.2.462 Unknown [id number] 2.840.1.666681.3.579.2.462 Unknown [id number] 2..840.1.554522.3.579.2.462 Unknown [id number] 2.840.1.990763.3.579.2.462 Unknown [id number] 2.840.1.675353.3.579.2.462 Unknown [id number] 2.840.1.755926.3.579.2.462 Unknown [id number] 2.16.840.1.026976.3.579.2.462 Unknown [id number] 2.840.1.880882.3.579.2.462 Unknown [id number] 2.840.1.266270.3.579.2.462 Unknown [id number] 2.16840.1.894247.3.579.2.462 Unknown [id number] 2.16.840.1.094643.3.579.2.462 Unknown [id number] 2.16.840.1.360920.3.579.2.462 Unknown [id number] 2.16.840.1.352838.3.579.2.462 Unknown [id number] 2.840.1.494110.3.579.2.462 Unknown [id number] 2.16.840.1.378266.3.579.2.462 Unknown [id number] 2.16.840.1.273821.3.579.2.462 Unknown [id number] 2.16.840.1.915640.3.579.2.462 Unknown [id number] 2.16.840.1.986029.3.579.2.462 Unknown [id number] 2.16.840.1.116240.3.579.2.462 Unknown [id number] 2.16.840.1.280958.3.579.2.462 Social History Date Type Detail Facility Start: 09-20-2017 Tobacco smoking stat [facility] Ex-smoker [facility] Work Phone: Start: 09-20-2017 Tobacco use and exposure Smokeless tobacco non-user [facility] Work Phone: Start: 07-18-2018 End: 05-21-2022 Alcohol intake Current non-drinker of alcohol (finding) [employer] Phone: Start: 1960 Sex Assigned At Not on file [facility] [employer] Work Phone: Start: 1960 Sex Assigned At Female [facility] History of tobacco use Current smoker [facility] Start: 05-21-2022 End: 12-11-2022 History of Social function [facility] Start: 05-21-2022 End: 12-11-2022 Tobacco use panel [facility] Start: 05-11-2022 End: 12-11-2022 Exposure to SARS-CoV-2 (event) Not sure [facility] How often to you hav e a drink containing alcohol? Never [facility] How many standard drinks containing alcohol do you have on a typical day? Patient does not drink [facility] Tobacco smoking stat [facility] Unknown if ever smoked [facility] Work Phone: Clinical Notes 11-12-2022 to 07-11-2024 Bethanie Villalobos RN - 09/07/2023 11:43 PM Anjali Villalobos RN - 09/07/2023 11:43 PM Anjali Villalobos RN - 09/07/2023 11:42 PM Anjali Villalobos RN - 09/07/2023 7:15 PM EDTDischarge Instructions Note Date & Type Note Facility 07-11-2024 Note Referral placed to moy walton back to [facility] via [facility] per TCC request. Await review and response regarding ability to accept. TCC notified. [facility] 07-11-2024 Note Discharge Summary Cinthya Castillo : [...] (97.1 ?F) (Temporal) Resp 16 Ht 5' 6 (1.676 m) Wt (!) 303 lb (137 [...] PLT 376 258 277 BMP: Recent Labs 07/09/2415807/10/24 0538 07/11/24310 NA 142 142 140 K 4.6 [...] Your Medications These medications were sent to [facility] [address] [place] [address] Hours: Wednesday to Wednesday 10 am to [...] Complexity: follow up within 7-14 calendar days (66913) [] Severe Complexity: follow up within 7 calendar days (73547) FOLLOW UP TESTING, PENDING RESULTS OR REFERRALS AT TRANSITIONAL CARE VISIT: [] Yes [] No PENDING STUDIES: No DISPOSITION: ICF FACILITY/HOME CARE AGENCY NAME: Mira Vargas Follow up with [facility] [address] [address] INSTRUCTIONS TO MA/SW: Please call patient on day after discharge (must document patient contacted within 2 business days of discharge). FOLLOW UP QUESTIONS FOR MA/SW: 1. Did you get medications filled an (more content not included)... [facility] 07-11-2024 Note Problem: Potential f or Compromised Skin Integrity Goal: Skin Integrity is Maintained or Improved Outcome: Progressing [facility] 07-10-2024 Note PHYSICAL THERAPY [facility] Initial Evaluation Name/MRN: Cinthya Castillo ([id number]) Evaluation Date: 07/10/2024 Date of : 1960 Admission Date: 07/08/2024 7:50 PM Age: 63 y.o. Room/Bed: B4465/B4465 A Discharge Recommendation: ECF with PT Equipment [...] 12/11/2022 Performed by Micheal Silva MD at [facility] Admission Diagnosis: Patient Active Problem [...] normal Social/Functional History Patient admitted from [facility]. Assistive Equipment: front wheeled walker Prior Level [...] Raw Score (No Stairs) : 15 JH-HLM JH-HLM Score: Walked 25 ft or more (i.e. walked outside of room) Plan Pt would benefit from skilled acute PT services to address Strengthening, Gait Training, Balance Training, Functional Mobility Training, Endurance Training, Safety Education and Training, Pain Managemen (more content not included)... [facility] 07-10-2024 Note Hospitalist Progress Note 07/10/2024 Subjective: Admit Date: 07/08/2024 PCP: Lex Roca MD Room#: R2-209/L4-761 A Interval History: She is weak. Tolerating [...] 7.3 6.5 PT/INR: No results for input(s): PROTIME, INR in the last 72 hours. CARDIAC ENZYMES: No results for input(s): TROPONINI in the last 72 hours. Procalcitonin: No results found for: PROCAL COVID-19 PCR: No results for input(s): COVID19 in the last 72 hours. Objective: Vitals: BP 144/75 (BP Location: Left arm, Patient Position: Lying) Pulse 79 Temp 36.2 ?C (97.2 ?F) (Temporal) Resp 18 Ht 5' 6 (1.676 m) Wt (!) 303 lb (137 [...] IV and subc (more content not included)... [facility] 07-10-2024 Note Pharmacy to Dose Van comycin - Progress Note Recent Labs 07/08/24201107/09/24 0159 07/10/24 0538 BUN 59* 58* 54* CREATININE 2.59* 2.37* 2.13* Lab Results Component Value Date [facility] 20.3 07/10/2024 Doses, serum creatinine, and vancomycin levels interfaced automatically to [employer] and data has been analyzed and interpreted. [...] Orders placed. DATE: 07/10/24 TIME: 8:08 AM Levon FaustinD Clinical Pharmacist Available via [email or web address] [facility] 07-09-2024 Note Attending History an d Physical [...] 12/11/2022 Performed by Micheal Silva MD at [address] END[facility] Social History: Social History Socioeconomic History [...] tablet 0.5 mg, 0.5 mg, Oral, TID, mOi Fernandez MD senna-docusate sodium (Senokot-S) 8.6-50 MG [...] and flank pain. (more content not included)... [facility] 09-07-2023 Emergency department Note Discharge paperwork completed. Pt verbalized understanding regarding follow-up care. Reports decreased discomfort at time of departure. Bethanie Villalobos RN 09/07/23 0750 [facility] 09-07-2023 Emergency department Note Discharge paperwork completed. Pt verbalized understanding regarding follow-up care. Reports decreased discomfort at time of departure. Bethanie Villalobos RN 09/07/23 6638 [facility] at bedside receiving report and preparing for transport back to [facility]. Bethanie Villalobos RN 09/07/23 1922 Received report from previous RN and assumed [...] going back home. documented in this encounter [facility] 09-07-2023 Emergency department Note [facility] at bedside receiving report and preparing for transport back to [facility]. Bethanie Villalobos RN 09/07/23 0620 [facility] 09-07-2023 Hospital Discharg e instructions WALESKA Cheney CNP - 09/07/2023 10:50 PM EDT Please make appointment to follow-up with your PCP in 2 days. The following attachments cannot be sent through Care Everywhere.Shortness of Breath (Dyspnea) Discharge Instructions (Libyan)documented in this encounter [facility] 09-07-2023 Emergency department Note Received report from previous RN and assumed care of pt. Bethanie Villalobos RN 09/07/231914 [facility] 09-07-2023 Emergency department Triage note Pt brought in from nursing facility with c/o shortness of breath. Patient has a known history of COPD. Patient 98% on room air, speaking in complete sentences, no acute distress noted. Asking for remote to television. States she wants to be admitted to the hospital because she doesn't feel like going back home. [facility] 12-11-2022 Hospital Discharg e alan Coon [...] NEAREST EMERGENCY DEPARTMENT documented in this encounter [facility] 12-11-2022 Note Formatting of this n ote might be different from the original. Images from the original note were not included. DEPARTMENT OF SURGERY OPERATIVE NOTE DATE OF PROCEDURE: 12/11/2022 ATTENDING SURGEON: Micheal Arnold MD INCUBATOR MACHINE OPERATOR: 0 PREOPERATIVE DIAGNOSIS: Abdominal pain in the lower POSTOPERATIVE DIAGNOSIS: Also with history of peptic ulcer disease nausea with vomiting OPERATION: EGD ANESTHESIA: General ESTIMATED BLOOD LOSS: Libyan Tolerated procedure well HISTORY: Patient referred for [...] procedure well next turned over for colonoscopy [facility] 12-11-2022 Note Formatting of this n ote might be different from the original. Images from the original note were not included. DEPARTMENT OF SURGERY OPERATIVE NOTE DATE OF PROCEDURE: 12/11/2022 ATTENDING SURGEON: Micheal Arnold MD INCUBATOR MACHINE OPERATOR: 0 PREOPERATIVE DIAGNOSIS: Abdominal pain in the lower mostly POSTOPERATIVE DIAGNOSIS: Few diverticuli nothing severe OPERATION: Colonoscopy ANESTHESIA: General ESTIMATED BLOOD LOSS: Libyan HISTORY: Patient presenting with significant epigastric and [...] normal findings surgery was tolerated well T [facility] 12-11-2022 Note Formatting of this n ote might be different from the original. Images from the original note were not included. DEPARTMENT OF SURGERY OPERATIVE NOTE DATE OF PROCEDURE: 12/11/2022 ATTENDING SURGEON: Micheal Arnold MD INCUBATOR MACHINE OPERATOR: 0 PREOPERATIVE DIAGNOSIS: Abdominal pain in the lower POSTOPERATIVE DIAGNOSIS: Also with history of peptic ulcer disease nausea with vomiting OPERATION: EGD ANESTHESIA: General ESTIMATED BLOOD LOSS: Libyan Tolerated procedure well HISTORY: Patient referred for [...] procedure well next turned over for colonoscopy [facility] 12-11-2022 Note Formatting of this n ote might be different from the original. Images from the original note were not included. DEPARTMENT OF SURGERY OPERATIVE NOTE DATE OF PROCEDURE: 12/11/2022 ATTENDING SURGEON: Micheal Arnold MD INCUBATOR MACHINE OPERATOR: 0 PREOPERATIVE DIAGNOSIS: Abdominal pain in the lower mostly POSTOPERATIVE DIAGNOSIS: Few diverticuli nothing severe OPERATION: Colonoscopy ANESTHESIA: General ESTIMATED BLOOD LOSS: Libyan HISTORY: Patient presenting with significant epigastric and [...] confirmed normal findings surgery was tolerated well [facility] 12-11-2022 Miscellaneous Notes Images from the original note were not included. DEPARTMENT OF SURGERY OPERATIVE NOTE DATE OF PROCEDURE: 12/11/2022 ATTENDING SURGEON: Micheal Arnold MD INCUBATOR MACHINE OPERATOR: 0 PREOPERATIVE DIAGNOSIS: Abdominal pain in the lower POSTOPERATIVE DIAGNOSIS: Also with history of peptic ulcer disease nausea with vomiting OPERATION: EGD ANESTHESIA: General ESTIMATED BLOOD LOSS: Libyan Tolerated procedure well HISTORY: Patient referred for [...] PROCEDURE: 12/11/2022 ATTENDING SURGEON: Micheal Arnold MD INCUBATOR MACHINE OPERATOR: 0 PREOPERATIVE DIAGNOSIS: Abdominal pain in the lower mostly POSTOPERATIVE DIAGNOSIS: Few diverticuli nothing severe OPERATION: Colonoscopy ANESTHESIA: General ESTIMATED BLOOD LOSS: Libyan HISTORY: Patient presenting with significant epigastric and [...] was tolerated well documented in this encounter [facility] 12-11-2022 History and physical note Images from the original note were not included. Office Visit 11/12/2022 [facility] General Surgery Micheal Silva MD General Surgery [...] Cuff Size: Large adult) Pulse 86 [employer]: [employer] SMARTFORM EXAM ROOM Encounter Info: Billing Info, History, Allergies, Detailed Report, Developmental Communications View All Conversations on this Encounter No questionnaires available. Orders Placed None Medication Changes None Medication List Visit Diagnoses Abdominal pain, left lower quadrant R10.32 Nausea and vomiting, unspecified vomiting type R11.2 Problem List [facility] Work Phone: 12-11-2022 History and physical note Images from the original note were not included. Office Visit 11/12/2022 [facility] General Surgery Micheal Silva [...] note were not included. Office Visit 11/12/2022 [facility] General Surgery Micheal Silva MD General Surgery [...] encounter. Follow Up: Micheal Arnold MD, MD @[email or web address]@ Instructions Follow up for AFTER COLONOSCOPY. AVS - Outpatient (Automatic SnapShot taken 11/12/2022) Additional Documentation Vitals: BP 151/82 Important (BP Location: Right arm, Patient Position: Sitting, BP Cuff Size: Large adult) Pulse 86 [employer]: [facility] SMARTFORM EXAM ROOM Encounter Info: Billing Info, History, Allergies, Detailed Report, Developmental Communications View All Conversations on this Encounter No questionnaires available. Orders Placed None Medication Changes None Medication List Visit Diagnoses Abdominal pain, left lower quadrant R10.32 Nausea and vomiting, unspecified vomiting type R11.2 Problem List documented in this encounter [facility] 12-11-2022 History and physical note Images from the original note were not included. Office Visit 11/12/2022 [facility] General Surgery Micheal Silva MD General Surgery [...] Cuff Size: Large adult) Pulse 86 [employer]: [employer] SMARTFORM EXAM ROOM Encounter Info: Billing Info, History, Allergies, Detailed Report, [employer] View All Conversations on this Encounter No questionnaires available. Orders Placed None Medication Changes None Medication List Visit Diagnoses Abdominal pain, left lower quadrant R10.32 Nausea and vomiting, unspecified vomiting type R11.2 Problem List T [facility] 11-12-2022 History of Presen t illness Narrative [...] this encounter. Follow Up: Micheal Arnold MD, @TODAYAKATE@ documented in this encounter [facility] Evaluation note No assessment inform ation available [facility] Work Phone: Evaluation note Diagnosis Abdominal pain, left lower quadrant- Primary Nausea and vomiting, unspecified vomiting type documented in this encounter [facility]* Diagnosis Abdominal pain, left lower quadrant- Primary documented in this encounter [facility]* Diagnosis Encounter for screening mammogram for malignant neoplasm of breast- Primary documented in this encounter [facility]* Diagnosis Shortness of breath- Primary Shortness of breath Chronic kidney disease, unspecified CKD stage Asymptomatic hypertension Chronic kidney disease Chronic kidney disease, unspecified [facility] Diagnosis Encounter for screening mammogram for malignant neoplasm of breast [facility] Diagnosis Encounter for screening mammogram for malignant neoplasm of breast documented in this encounter [facility] for referral (narrative)No reason for [facility] Phone: Summary Purpose Family History No Family History Records FoundNo Family History Records FoundNo Family History Records FoundNo Family History Records FoundNo Family History Records FoundNo Family History Records FoundNo Family History Records FoundNo Family History Records Found Advance Directives No Advanced Directives Records FoundDocuments on File Type Date Recorded Patient Insurance Policy Issue Clerk Expl anation ACP-Advance Directive ACP-Power of Retail Shift Leader Latest Code Status on File Code Status Date Activated Date Inactivated Comments Full Code 07/17/2018 3:13 AM 07/18/2018 1:02 PM Full Code 12/16/2017 8:42 PM 12/18/2017 8:54 PM Full Code 12/10/2017 7:30 PM 12/13/2017 9:20 PM Chief Complaint and Reason for Visit Chief Complaint 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 HOME LAB WOR K Chief Complaint GROUP HOME LABWORK 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 HOME 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 WORK Chief Complaint GROUP HOME LAB WOR K 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 HOME LABWORK Chief Complaint GROUP HOME LABWORK LABWORK Chief Complaint LABWORK GROUP HOME LABWORK Chief Complaint GROUP HOME LABWORK GROUP HOME LAB WORK LABWORK Chief Complaint LABWORK LABWORK GROUP HOME LABWORK LABWORK Chief Complaint GROUP HOME LABWORK LABWORK GROUP HOME LABWORK GROUP HOME LAB WORK Chief Complaint Admit Date LABWORK April 10, 2024 5 :00am LABWORK April 19, 2024 5 :00am LABWORK April 24, 2024 5 :00am GROUP HOME LAB WORK April 26, 2024 5:00am GROUP HOME LAB WORK May 03 4:00am GROUP HOME LAB WORK June 23, 2024 5: 00am LABOWRK July 17, 2024 5:0 0am Additional Source Comments INFORMATION SOURCE (unrecogn ized section and content) DATE CREATED AUTHOR 06/28/2018 [facility] DATE CREATED AUTHOR AUTHOR'S ORGANIZ ATION 07/03/2018 [facility] DATE CREATED AUTHOR AUTHOR'S ORGANIZ ATION 07/21/2018 [facility] DATE CREATED AUTHOR AUTHOR'S ORGANIZ ATION 07/30/2018 [facility] DATE CREATED AUTHOR AUTHOR'S ORGANIZ ATION 10/30/2018 [facility] DATE CREATED AUTHOR AUTHOR'S ORGANIZ ATION 05/22/2021 [facility] DATE CREATED AUTHOR AUTHOR'S ORGANIZ ATION 07/29/2024 [facility] DATE CREATED AUTHOR AUTHOR'S ORGANIZ ATION 09/22/2024 [facility] Care Teams (unrecognized sec tion and content) Team Status: Inactive Member Role Status Dates Lex HERNANDEZ Attending Provider Active Team Status: Active Member Role Status Dates Lex HERNANDEZ Attending Provider, Referring Provid er Active Team Status: Inactive Member Role Status Dates Lex HERNANDEZ Attending Provider, Referring Provid er Active Team Status: Active Member Role Status Dates Lex HERNANDEZ Attending Provider Active Technical Service Representative Relationship Specialty Start Date End Date Kristel Nunes MD PCP - General 09/20/17 Technical Service Representative Relationship Specialty Start Date End Date Lex Roca [address] [place] [address] [address] [place] [address] PCP - General 05/20/21 Technical Service Representative Relationship Specialty Start Date End Date Lex Roca [address] [place] [address] [address] [place] [address] PCP - General 05/20/21 Technical Service Representative Relationship Specialty Start Date End Date Lex Roca MD [address] [place] [address] PCP - General 05/20/21 Technical Service Representative Relationship Specialty Start Date End Date Lex Roca MD [address] [place] [address] PCP - General 05/20/21 Technical Service Representative Relationship Specialty Start Date End Date Chanelle, Lex [address] [place] [address] [address] [place] [address] PCP - General 05/20/21 Team Status: Inactive Member Role Status Dates Lex HERNANDEZ Attending Provider Active Star t: April 10, 2024 End: April 10, 2024 Team Status: Inactive Member Role Status Dates Lex Chanelle MARY Attending Provider Active Star t: April 19, 2024 End: April 19, 2024 Team Status: Active Member Role Status Dates Lex Chanelle MARY Attending Provider Active Star t: April 24, 2024 Team Status: Active Member Role Status Dates Lex Chanelleemanuel HERNANDEZ Attending Provider Active Star t: April [...] Status: Active Member Role Status Dates Lex Chanelle MARY Attending Provider Active Star t: July 04, 2024 Team Status: Inactive Member Role Status Dates Lex Chanelle MARY Attending Provider Active Star t: July 17, [...] symptoms Specialty Diagnoses / Procedures Referred By Contac t Referred To Contact Diagnoses Left lower quadrant pain Nausea with vomiting, unspecified Left lower quadrant pain [R10.32] Nausea with vomiting, unspecified [R11.2] Procedures [place] ESOPHAGOGASTRODUODENOSCOPY TRANSORAL DIAGNOSTIC [place] COLONOSCOPY FLX DX W/COLLJ SPEC WHEN PFRMD EGD DIAGNOSTIC COLONOSCOPY Micheal Arnold MD [address] [facility], [address] [place] [address] [address] [facility] [address] [place] [address] Referral ID Status Reason Start Date Expiration Date Visits Re quested Visits Authorized [id number] 1 Reason Comments Shortness of Breath Pt brought in from [facility] facility with c/o shortness of [...] (New Bag - Prov ider: Bethanie Villalobos RN)4 (Stopped - Provider: Bethanie Villalobos RN) FOR [...] BE BASED ON THE PRIMARY CLINICAL RECORDS. [employer] provides no warranty or guarantee of the accuracy or completeness of information in this document.
[2024-09-25 09:30] LABS: Anion Gap 9 (5-15); BUN 56 mg/dL (4-19); BUN/Creat Ratio 25.0 RATIO (10-20); Calcium,Total 9.1 mg/dL (7.6-11.0); Carbon Dioxide 23.8 mmol/L (21.0-32.0); Chloride 107 mmol/L (98-108); Glucose 176 mg/dL (70-99); Potassium 4.6 mmol/L (3.3-5.1)
== END | disposition home or self-care (01) ==
LOC: OLS.ACW100 04:00
PROVIDERS: Referring Provider Family Medicine; Visit Provider Family Medicine
DX: E11.21 Type 2 diabetes mellitus with diabetic nephropathy (principal); K57.90 Diverticulosis of intestine, part unspecified, without perforation or abscess without bleeding; M62.81 Muscle weakness (generalized)
CPT/HCPCS: 36415; 80048; 83036

== ENCOUNTER → 2024-12-05 | Outpatient (REF) | payer MEDICAID, SELFPAY ==
--- OUTSIDE RECORDS SUMMARY | 2024-12-05 04:03 | XMS RPT_ITS | CCD ---
Author Organization [facility] Care Team Providers Care Stock Checker Name Role Phone [facility] Primary Care Unavailable ANUPAM WILLIS Admitting Unavailable KEITH ALMARAZ Consulting Unavailab ROGERIO Mckeon Attending Unavailable [facility] Primary Care Unavailable BHAVANA DEWITT Attending Unavailable [...] Provider Lex Roca MD Primary Care Provider [phone] Lex Roca Primary Care Provider Lex Meyers Attending Provider UnavailLex Jones Referring Provider UnavailLex Jones Attending Provider Unavailabl Lex Godfrey Referring Provider UnavailLex Jones Attending Unavailable Chanelle OLS, Lex Attending Unavailable Chanelle MARY, Lex Referring Unavailable Chanelle OLS, Lex Attending [...] Unavailable Chanelle OLS, Lex Attending Unavailable Chanelle MARY, Lex Attending Unavailable Chanelle MARY, Lex Attending Unavailable Chanelle HERNANDEZ, Lex Referring Unavailable Chanelle HERNANDEZ, Lex Attending Unavailable Chanelle HERNANDEZ, Lex Attending Unavailable LEX ROCA Primary Care Unavailable KWASI, LEX Admitting Unavailable NUHA ELIZONDO Attending Unavailable LEX ROCA Primary Care Unavailable GRZEGORZ GUILLEN Attending Unavailable LEX ROCA Primary Care Unavailable Marcel CHEN Attending Unavailable LEX ROCA Primary Care Unavailable GRZEGORZ GUILLEN Attending Unavailable LEX ROCA Primary Care Unavailable GRZEGORZ GUILLEN Attending Unavailable LEX ROCA Primary Care Unavailable JERAMY ALLEN Attending Unavailable LEX ROCA Primary Care Unavailable LUDY, OMI Admitting Unavailable JERAMY SY Attending Unavailable LEX ROCA Primary Care Unavailable CINTHYA LOPEZ Attending Unavaila LEX Lepe Attending Unavailable CHANELLE, LEX Referring Unavailable LEX ROCA Primary Care Unavailable Marcel CHEN Referring Unavailable LEX ROCA Primary Care Unavailable Allergies Allergy Classification Reported Allergen(s) Allergy Type Date of Onset Reaction(s) Facility Penicillins (antibiotic) (2 sources) Penicillins Drug Allergy 8 Unknown [facility] (3 sources) Penicillin; Translations: [PENICILLIN] Drug Allergy 8 [facility] (6 sources) Penicillins Propensity to adverse reactions to drug 8 Unknown [facility] Medications Current Medications Medication Drug Class(es) Dates [...] Active docusate sodium 50 mg / sennosides, jail 8.6 mg oral tablet (8 sources) take [...] extended release oral tablet (9 sources) beta-Adrenergic Je take 1 tablet by mouth every twenty-four [...] without obstruction or gangrene] Onset: 07-17-2018 Episodic Acute and unspecified renal failure (14 sources) Acute kidney failure, unspecified; Translations: [Acute injury of kidney] Onset: 12-10-2017 12-10-2017 Episodic Allergic reactions (3 sources) Allergy status to penicillin; Translations: [Allergy status to penicillin] Onset: 07-17-2018 Episodic Asthma (2 sources) Unspecified asthma, uncomplicated; Translations: [Unspecified asthma, uncomplicated] Onset: 07-17-2018 Chronic Chronic kidney disease (9 sources) Chronic kidney disease, unspecified; Translations: [Chronic kidney disease] Onset: 05-14-2018 09-07-2023 Chronic Chronic kidney disease (3 sources) Chronic kidney disease; Translations: [Chronic kidney disease, stage 3b] Onset: 09-07-2023 Chronic ulcer of skin (2 sources) 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; Translations: [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 (HCC)] Onset: 07-08-2024 Chronic Coronary atherosclerosis and other heart disease (13 sources) Atherosclerotic heart disease of kaibab coronary artery without angina pectoris; Translations: [Coronary [...] sources) Hyperglycemia, unspecified; Translations: [Hyperglycemia, unspecified] Onset: 11-11-2024 Episodic Disorders of lipid metabolism (1 source) Hyperlipidemia, unspecified; Translations: [HYPERLIPIDEMIA UNSPECIFIED] Onset: 08-17-2018 Chronic Diverticulosis and diverticulitis (4 sources) Diverticulosis of large intestine without perforation or abscess without bleeding; Translations: [Diverticulosis of intestine, part unspecified, without perforation or abscess without bleeding] Onset: 07-17-2018 Chronic Essential hypertension (16 sources) Essential (primary) hypertension; [...] pain, unspecified; Translations: [Chest pain, unspecified] Onset: 11-11-2024 Episodic Open wounds of extremities (1 source) Unspecified open wound of right index finger without damage to nail, initial encounter; Translations: [UNS OPN WND RT IF W/O DMG NAIL INIT] Onset: 08-17-2018 Episodic Other aftercare (3 sources) rodent exterminator (current) use of aspirin; Translations: [alf (current) use of aspirin] Onset: 07-17-2018 Episodic Other aftercare (1 source) Other jail (current) drug therapy; Translations: [OTH INTERMEDIATE CURRENT DRUG THERAPY] Onset: 08-17-2018 Episodic Other aftercare (3 sources) alf (current) use of oral hypoglycemic drugs; Translations: [rodent exterminator (current) use of oral hypoglycemic drugs] Onset: 07-17-2018 Other connective tissue disease (2 sources) Muscle weakness (generalized); Translations: [Muscle weakness (generalized)] Onset: 10-09-2024 Episodic Other diseases of kidney and ureters [...] Onset: 08-22-2018 Episodic Other lower respiratory disease (9 sources) Dyspnea; Translations: [Shortness of breath] Onset: 09-07-2023 09-07-2023 Episodic Other nervous system disorders (11 sources) Neuropathy; Translations: [Polyneuropathy, unspecified] Onset: 12-19-2017 12-19-2017 Chronic Other nervous system disorders (2 sources) Other chronic pain; Translations: [Other chronic pain] Onset: 07-13-2024 Chronic Other nervous system disorders (2 sources) Unspecified lack of coordination; Translations: [Unspecified lack of coordination] Onset: 10-09-2024 Episodic Other non-traumatic joint disorders (2 sources) Pain in left shoulder; Translations: [Pain in left shoulder] Onset: 10-17-2024 Episodic Other nutritional; endocrine; and metabolic disorders (2 sources) Morbid (severe) obesity due to excess calories; Translations: [Morbid (severe) obesity due to excess calories] Onset: 07-17-2018 Chronic Other nutritional; endocrine; and metabolic disorders (2 sources) Body mass index (BMI) 40.0-44.9, adult; Translations: [Body mass index (BMI) 40.0-44.9, adult] Onset: 07-17-2018 Chronic Other screening for suspected conditions (not mental disorders or infectious disease) (7 sources) Patient encounter status; Translations: [Encounter for screening mammogram for malignant neoplasm of breast] Onset: 10-20-2024 05-10-2023 Episodic Residual codes; unclassified (2 sources) Obstructive sleep apnea (adult) (pediatric); Translations: [Obstructive sleep apnea (adult) (pediatric)] Onset: 07-17-2018 Chronic Residual codes; unclassified (2 sources) Edema, unspecified; Translations: [Edema, unspecified] Onset: 11-11-2024 Episodic Screening and history of mental health and [...] Spondylosis; intervertebral disc disorders; other back problems (5 sources) Low back pain; Translations: [Cervicalgia] Onset: 05-14-2018 Episodic Unclassified (1 source) Acidosis, unspecified; Translations: [Acidosis, unspecified] Onset: 11-11-2024 Unclassified (1 source) Low back pain, unspecified; Translations: [Low back pain, unspecified] Onset: 07-03-2024 Past or Other Problems Problem Classification Problem Date Documented Date Episodic/Chronic Abdominal pain (20 sources) Unspecified abdominal pain; Translations: [Left lower quadrant pain] Onset: 06-30-2018 07-18-2018 Episodic Conditions associated with dizziness or vertigo (14 sources) Dizziness and giddiness; Translations: [Lightheadedness] Onset: 05-14-2018 07-18-2018 Episodic Diseases of white blood cells (1 source) Leukocytosis; Translations: [Elevated white blood cell count, unspecified] Onset: 12-11-2017 Resolved: 12-19-2017 12-19-2017 Chronic E Codes: Fall (2 sources) Unspecified fall, initial encounter; Translations: [Unspecified fall, initial encounter] Onset: 07-12-2024 Episodic Fluid and electrolyte disorders (1 source) Dehydration; Translations: [Dehydration] Onset: 12-10-2017 Resolved: 01-09-2018 01-09-2018 Episodic Malaise and fatigue (11 sources) Asthenia; Translations: [Weakness] Onset: 12-10-2017 12-10-2017 Episodic Nausea and vomiting (15 sources) Nausea with vomiting, unspecified; Translations: [Nausea and vomiting] Onset: 06-27-2018 07-17-2018 Episodic Open wounds of extremities (2 sources) Unspecified open wound, left lower leg, initial encounter; Translations: [Unspecified open wound, left lower leg, initial encounter] Onset: 07-13-2024 Episodic Other connective tissue disease (1 source) Rhabdomyolysis; Translations: [Rhabdomyolysis] Onset: 12-11-2017 Resolved: 12-19-2017 12-19-2017 Episodic Other connective tissue disease (2 sources) Pain in right leg; Translations: [Pain in right leg] Onset: 07-03-2024 Episodic Other connective tissue disease (2 sources) Pain in left leg; Translations: [Pain in left leg] Onset: 07-03-2024 Episodic Other hematologic conditions (1 source) Protein [...] INJURY LOWER BACK INITIAL] Onset: 05-14-2018 Episodic Other lower respiratory disease (1 source) Shortness of breath; Translations: [Shortness of breath] Onset: 09-07-2023 Episodic Other non-traumatic joint disorders (2 sources) Pain in right hip; Translations: [Pain in right hip] Onset: 07-12-2024 Episodic Other non-traumatic joint disorders (2 sources) Pain in left hip; Translations: [Pain in left hip] Onset: 07-12-2024 Episodic Superficial injury; contusion (2 sources) Contusion of left knee, initial encounter; Translations: [Contusion of left hip, initial encounter] Onset: 05-14-2018 Episodic Unclassified (1 source) Acidosis, unspecified; Translations: [Acidosis, unspecified] Onset: 11-11-2024 Unclassified (1 source) Low back pain, unspecified; Translations: [Low back pain, unspecified] Onset: 07-03-2024 Varicose veins of lower extremity (2 sources) Varicose veins of left lower extremity with ulcer of unspecified site; Translations: [Varicose veins of left lower extremity with ulcer of unspecified site (HCC)] Onset: 07-08-2024 Episodic Results Test Name Value Interpretation Reference Range Facility COMPLETE URINALYSIS WITH REF CRISTINA TO CULTUREon 12-04-2024 BACTERIA (#/HPF) IN URINE Few Abnormal Negative [facility] Comment on above: Performed By: #### L [id number] #### Newscast Director: LAURA BAUTISTA ([id number]) [address] BILIRUBIN, TOTAL PRESENCE IN URINE Negative Normal Negative [facility] Comment on above: Performed By: #### L [id number] #### Newscast Director: LAURA BAUTISTA ([id number]) [facility]) [address] [place] [address] [place] Clarity (U) Clear Normal Clear [facility] Comment on above: Performed By: #### L [id number] #### Newscast Director: LAURA BAUTISTA ([id number]) [facility]) [address] [place] [address] [place] Color (U) Light Yellow Normal Lt. Yellow [facility] Comment on above: Performed By: #### L [id number] #### Newscast Director: LAURA BAUTISTA ([id number]) [facility] ([facility]) [address] [place] [address] Glucose (U) [Mass/Vol] 500 mg/dL Abnormal Normal (<70) [facility] Comment on above: Performed By: #### L [id number] #### Newscast Director: LAURA BAUTISTA ([id number]) [facility] [address] [place] [address] HEMOGLOBIN PRESENCE IN URINE Negative Normal Negative [facility] Comment on above: Performed By: #### L [id number] #### Newscast Director: LAURA BAUTISTA ([id number]) [facility]) [address] [place] [address] Ketones Ql (U) Negative Normal Negative [facility] Comment on above: Performed By: #### L [id number] #### Newscast Director: LAURA BAUTISTA ([id number]) [facility] [address] [place] [address] LEUKOCYTE ESTERASE PRESENCE IN URINE BY TEST STRIP Negative Normal Negative [facility] Comment on above: Performed By: #### L [id number] #### Newscast Director: LAURA BAUTISTA ([id number]) [facility] ([facility]) [address] [place] [address] NITRITE PRESENCE IN URINE Negative Normal Negative [facility] Comment on above: Performed By: #### L [id number] #### Newscast Director: LAURA BAUTISTA ([id number]) [facility]) [address] [place] [address] [place] NON-SQUAMOUS EPITHELIAL (#/HPF) IN URINE 0-2 Abnormal Negative [facility] Comment on above: Performed By: #### L [id number] #### Newscast Director: LAURA BAUTISTA ([id number]) [facility] ([facility]) [address] [place] [address] pH (U) 6.5 [pH] Normal 5.0-8.0 [facility] Comment on above: Performed By: #### L [id number] #### Newscast Director: LAURA BAUTISTA ([id number]) [facility] ([facility]) [address] [place] [address] Protein (U) [Mass/Vol] 600 mg/dL Abnormal Negative [facility] Comment on above: Performed By: #### L [id number] #### Newscast Director: LAURA BAUTISTA ([id number]) [facility]) [address] [place] [address] RBC (#/HPF) IN URINE SEDIMENT 0-2 Normal 0-2 [facility] Comment on above: Performed By: #### L [id number] #### Newscast Director: LAURA BAUTISTA ([id number]) [facility] ([facility]) [address] [place] [address] Specific gravity (U) [Rel density] 1.017 Normal 1.005-1.030 [facility] Comment on above: Result Comment: MITRA Hargrove COMMENTS: A specimen with <=10 WBC is not consistent with inflammation. This specimen will not reflex to a urine culture. Performed By: #### L [id number] #### Newscast Director: LAURA BAUTISTA ([id number]) [facility]) [address] [place] [address] Specimen volume (U) 12 mL Normal [facility] Comment on above: Performed By: #### L [id number] #### Newscast Director: LAURA BAUTISTA ([id number]) [facility] ([facility]) [address] [place] [address] SQUAMOUS EPITHELIAL CELLS (#/HPF) IN URINE SEDIMENT 6-10 Abnormal 3-5 [facility] Comment on above: Performed By: #### L [id number] #### Newscast Director: LAURA BAUTISTA ([id number]) [facility]) [address] [place] [address] [place] UROBILINOGEN (MG/DL) IN URINE Normal Normal Normal (0-1) [facility] Comment on above: Performed By: #### L [id number] #### Newscast Director: LAURA BAUTISTA ([id number]) [facility]) [address] [place] [address] WBC (LEUKOCYTE) (#/HPF) IN URINE SEDIMENT 3-5 Normal 0-5 [facility] Comment on above: Performed By: #### L [id number] #### Newscast Director: LAURA BAUTISTA ([id number]) [facility] ([facility]) [address] [place] [address] HIGH SENSITIVITY TROPONIN, S ERIAL, SECOND TESTon 12-04-2024 2H TROPONIN HS (SERIAL 2ND TROPONIN) 16 ng/L High <=14 [facility] Comment on above: Result Comment: 2h t roponin (2nd troponin) samples collected between 1h 40 min and 2h and 20 min of the baseline collection time can be utilized to interpret delta troponins as per [facility] algorithms. Samples collected outside this timeframe need to be interpreted clinically. Rising or falling troponin delta below 2 ng/L as compared to baseline value suggests that acute cardiac injury is unlikely. Performed By: #### L [id number] ####Newscast Director: LAURA BAUTISTA ([id number])[facility] ([facility])[address] [place] [address] CBC WITH AUTO DIFFERENTIALon 12-03-2024 Basophils (Bld) [#/Vol] 0.1 10*3/uL Normal 0.0-0.2 [facility] Comment on above: Performed By: #### L [id number] ####Newscast Director: LAURA BAUTISTA ([id number])[facility] ([facility])[address] [place] [address] Basophils/100 WBC (Bld) 0.8 % Normal 0.0-2.0 [facility] Comment on above: Performed By: #### L [id number] ####Newscast Director: LAURA BAUTISTA ([id number])[facility] ([facility])[address] [place] [address] Eosinophils (Bld) [#/Vol] 0.8 10*3/uL High 0.0-0.5 [facility] Comment on above: Performed By: #### L [id number] ####Newscast Director: LAURA BAUTISTA ([id number])[facility] ([facility])[address] [place] [address] [place] Eosinophils/100 WBC (Bld) 9.5 % High 0.0-6.0 [facility] Comment on above: Performed By: #### L [id number] ####Newscast Director: LAURA BAUTISTA ([id number])[facility] ([facility])[address] [place] [address] Erythrocyte distribution width (RBC) [Ratio] 13.7 % Normal 11.5-15.0 [facility] Comment on above: Performed By: #### L [id number] ####Newscast Director: LAURA BAUTISTA ([id number])[facility] ([facility])[address] [place] [address] Hematocrit (Bld) [Volume fraction] 33.1 % Low 35.0-47.0 [facility] Comment on above: Performed By: #### L [id number] ####Newscast Director: LAURA BAUTISTA ([id number])[facility] ([facility])[address] [place] [address] Hemoglobin (Bld) [Mass/Vol] 11.0 g/dL Low 11.7-16.0 [facility] Comment on above: Performed By: #### L [id number] ####Newscast Director: LAURA BAUTISTA ([id number])[facility] ([facility])[address] [place] [address] [place] IMMATURE GRANS % 0.6 % Normal 0.0-2.0 [facility] Comment on above: Performed By: #### L [id number] ####Newscast Director: LAURA BAUTISTA ([id number])[facility] ([facility])[address] [place] [address] IMMATURE GRANS ABSOLUTE 0.1 10*3/uL High <0.1 [facility] Comment on above: Performed By: #### L [id number] ####Newscast Director: LAURA BAUTISTA ([id number])[facility] ([facility])[address] [place] [address] [place] Lymphocytes (Bld) [#/Vol] 1.6 10*3/uL Normal 1.0-4.3 [facility] Comment on above: Performed By: #### L [id number] ####Newscast Director: LAURA BAUTISTA ([id number])[facility] ([facility])[address] [place] [address] [place] Lymphocytes/100 WBC (Bld) 19.0 % Normal 15.0-45.0 [facility] Comment on above: Performed By: #### L [id number] ####Newscast Director: LAURA BAUTISTA ([id number])[facility] ([facility])[address] [place] [address] MCH (RBC) [Entitic mass] 29.2 pg Normal 26.0-34.0 [facility] Comment on above: Performed By: #### L [id number] ####Newscast Director: LAURA BAUTISTA ([id number])[facility] ([facility])[address] [place] [address] MCHC 33.2 % Normal 30.5-36.0 [facility] Comment on above: Performed By: #### L [id number] ####Newscast Director: LAURA BAUTISTA ([id number])[facility] ([facility])[address] [place] [address] MCV (RBC) [Entitic vol] 87.8 fL Normal 77.0-99.0 [facility] Comment on above: Performed By: #### L [id number] ####Newscast Director: LAURA BAUTISTA ([id number])[facility] ([facility])[address] [place] [address] Monocytes (Bld) [#/Vol] 0.9 10*3/uL Normal 0.0-0.9 [facility] Comment on above: Performed By: #### L [id number] ####Newscast Director: LAURA BAUTISTA ([id number])[facility] ([facility])[address] [place] [address] [place] Monocytes/100 WBC (Bld) 10.6 % Normal 5.0-13.0 [facility] Comment on above: Performed By: #### L [id number] ####Newscast Director: LAURA BAUTISTA ([id number])[facility] ([facility])[address] [place] [address] NEUTROPHILS ABSOLUTE 5.1 10*3/uL Normal 1.8-7.5 [facility] Comment on above: Performed By: #### L [id number] ####Newscast Director: LAURA BAUTISTA ([id number])[facility] ([facility])[address] [place] [address] [place] Neutrophils/100 WBC (Bld) 59.5 % Normal 38.0-82.0 [facility] Comment on above: Performed By: #### L [id number] ####Newscast Director: LAURA BAUTISTA ([id number])[facility] ([facility])[address] [place] [address] NRBC 0.0 /100 WBCs Normal 0.0-2.0 [facility] Comment on above: Performed By: #### L [id number] ####Newscast Director: LAURA BAUTISTA ([id number])[facility] ([facility])[address] [place] [address] Platelet mean volume (Bld) [Entitic vol] 9.5 fL Normal 9.0-12.7 [facility] Comment on above: Result Comment: MPV is a calculated measurement using platelet volume ratio Performed By: #### L [id number] ####Newscast Director: LAURA BAUTISTA ([id number])[facility] ([facility])[address] [place] [address] [place] Platelets (Bld) [#/Vol] 386 10*3/uL Normal 140-440 [facility] Comment on above: Performed By: #### L [id number] ####Newscast Director: LAURA BAUTISTA ([id number])[facility] ([facility])[address] [place] [address] RBC (Bld) [#/Vol] 3.77 10*6/uL Low 3.80-5.20 [facility] Comment on above: Performed By: #### L [id number] ####Newscast Director: LAURA BAUTISTA ([id number])[facility] ([facility])[address] WBC (Bld) [#/Vol] 8.6 10*3/uL Normal 3.6-10.7 [facility] Comment on above: Performed By: #### L [id number] ####Newscast Director: LAURA BAUTISTA ([id number])[facility] ([facility])[address] [place] [address] COMPREHENSIVE METABOLIC PANE Aamir 12-03-2024 Albumin [Mass/Vol] 3.1 g/dL Low 3.4-4.8 [facility] Comment on above: Performed By: #### Jaky AB17, LAB99, [id number] ####Newscast Director: LAURA BAUTISTA ([id number])[facility] ([facility])[address] [place] [address] ALP [Catalytic activity/Vol] 66 U/L Normal 40-150 [facility] Comment on above: Performed By: #### Jaky AB17, LAB99, [id number] ####Newscast Director: LAURA BAUTISTA ([id number])[facility]ITAL[facility] ([facility])[address] ALT [Catalytic activity/Vol] 12 U/L Normal <30 [facility] Comment on above: Performed By: #### Jaky AB17, LAB99, [id number] ####Newscast Director: LAURA BAUTISTA ([id number])[facility]ITAL[facility] ([facility])[address] [place] [address] [place] Anion gap [Moles/Vol] 9 mmol/L Normal 3-13 [facility] Comment on above: Performed By: #### Jaky AB17, LAB99, [id number] ####Newscast Director: LAURA BAUTISTA ([id number])[facility]ITAL[facility] ([facility])[address] [place] [address] [place] AST [Catalytic activity/Vol] 23 U/L Normal <34 [facility] Comment on above: Performed By: #### Jaky ABVinay, LAB99, [id number] ####Newscast Director: LAURA BAUTISTA ([id number])[facility] HOSPITALRamón VARGAS RITTMAN (SWRLAB)[address] Bilirubin [Mass/Vol] 0.3 mg/dL Normal <1.2 [facility] Comment on above: Performed By: #### Jaky CHAUHAN, LAB99, [id number] ####Newscast Director: LAURA BAUTISTA ([id number])[facility] HOSPITALRamón VARGAS RITTMAN (SWRLAB)[address] [place] [address] [place] Calcium [Mass/Vol] 9.5 mg/dL Normal 8.8-10.0 [facility] Comment on above: Performed By: #### Jaky CHAUHAN, LAB99, [id number] ####Newscast Director: LAURA BAUTISTA ([id number])[facility] HOSPITALRamón QUINTANILLASAM RITTMAN (SWRLAB)[address] [place] [address] [place] Chloride [Moles/Vol] 110 mmol/L High 98-107 [facility] Comment on above: Performed By: #### Jaky AB17, LAB99, [id number] ####Newscast Director: LAURA BAUTISTA ([id number])[facility] HOSPITALRamón QUINTANILLASAM RITTMAN (SWRLAB)[address] [place] [address] [place] CO2 [Moles/Vol] 20 mmol/L Low 23-31 [facility] Comment on above: Performed By: #### L AB17, LAB99, [id number] ####Newscast Director: LAURA BAUTISTA ([id number])[facility] HOSPITALRamón VARGAS RITTMAN (SWRLAB)[address] [place] [address] [place] Creatinine [Mass/Vol] 2.56 mg/dL High 0.57-1.11 [facility] Comment on above: Performed By: #### Jaky CHAUHAN, LAB99, [id number] ####Newscast Director: LAURA BAUTISTA ([id number])[facility] HOSPITALRamón VARGAS RITTMAN (SWRLAB)[address] [place] [address] [place] GLOMERULAR FILTRATION RATE ML/MIN/1.73 SQ M.PREDICTED 20.7 mL/min/1.73m*2 Low >60.0 [facility] Comment on above: Result Comment: Calc ulation based on the Chronic Kidney Disease Epidemiology Collaboration (CKD-EPI) equation refit without adjustment for race Performed By: #### Jaky CHAUHAN, LAB99, [id number] ####Newscast Director: LAURA BAUTISTA ([id number])[facility] HOSPITALRamón VARGAS RITTMAN (SWRLAB)[address] [place] [address] [place] Glucose [Mass/Vol] 263 mg/dL High 82-115 [facility] Comment on above: Performed By: #### Jaky CHAUHAN, LAB99, [id number] ####Newscast Director: LAURA BAUTISTA ([id number])[facility] HOSPITALRamón VARGAS RITTMAN (SWRLAB)[address] [place] [address] [place] Potassium [Moles/Vol] 4.2 mmol/L Normal 3.5-5.1 [facility] Comment on above: Result Comment: [facility] potassium values may be up to 0.5 mmol/L lower than serum values. Performed By: #### Jaky HOLT17, LAB99, [id number] ####Newscast Director: LAURA BAUTISTA ([id number])[facility] HOSPITALRamón VARGAS RITTMAN (SWRLAB)[address] [place] [id number] [place] Protein [Mass/Vol] 6.8 g/dL Normal 6.4-8.3 [facility] Comment on above: Performed By: #### L AB17, LAB99, [id number] ####Newscast Director: LAURA BAUTISTA ([id number])[facility] HOSPITALRamón WARDTMAN (SWRLAB)[address] [place] [address] Sodium [Moles/Vol] 139 mmol/L Normal 136-145 [facility] Comment on above: Performed By: #### L AB17, LAB99, [id number] ####Newscast Director: LAURA BAUTISTA ([id number])[facility] HOSPITALRamón WARDTMAN (SWRLAB)[address] [place] [address] Urea nitrogen [Mass/Vol] 44 mg/dL High 12-12 [facility] Comment on above: Performed By: #### L AB17, LAB99, [id number] ####Newscast Director: LAURA BAUTISTA ([id number])[facility] HOSPITALRamón WARDTMAN (SWRLAB)[address] [place] [address] ECG 12-LEADon 12-03-2024 ECG 12-LEAD IMPRESSION: Sinus rhythm Low voltage, precordial leads LVH by voltage Anterior Q waves, possibly due to LVH Compared to ECG 11/12/24 No significant change Electronically Signed On 12-03-2024 23:24:34 EDT by Grzegorz Guillen Normal [facility] ED Nursing Noteon 12-03-2024 ED Nursing Note Pt arrived via [facility] [facility]. Pt laughing/ joking around with staff, c/o abdominal discomfort - started this evening. + back and hip pain. + c/o chest discomfort/sob and cough after ambulation, +states got sick tonite. Pt states "I need the remote so I can watch TV". Talking in full sentences. No distress noted Normal [facility] ED Provider Noteon ED Provider Note Emergency Department Encounter [facility] ED Patient: Cinthya Castillo : 1960 Date of Evaluation: 12/03/2024 ED Provider: Grzegorz Guillen DO Chief Complaint Chief Complaint Patient presents with Abdominal Pain + urinary complaints [facility] [place] Cinthya Castillo is a 63 y.o. female who presents to the emergency department complaining of abdominal pain. Patient reports that she has pain with urination. She was also reporting abdominal pain, chest pain and shortness of breath. The patient is well-known to myself as I have seen her many times from her nursing facility. She typically calls 911 without notifying nursing staff that she is not feeling well. When I spoke with patient she tells me "I like being in the hospital I hope I have to be admitted ". Is known to have chronic complaints of abdominal pain, chest pain and shortness of breath. Additional history obtained from : n/a Barriers [...] pain SKIN: rash, lesions, wound Past History Medical History[1] Surgical History[2] Social History[3] I have reviewed the history above as provided by nursing notes. Medications/Allergies Discharge Medication List as of 12/04/2024 12:59 AM CONTINUE these medications which have NOT CHANGED Details aspirin 81 MG EC tablet Take 81 mg by mouth daily., Historical Med atorvastatin (Lipitor) 20 MG tablet Take 20 mg by mouth daily., Historical Med dulaglutide (Trulicity) 3 MG/0.5ML solution pen-injector Inject 3 mg under the skin 1 (one) time per week., Historical Med escitalopram (Lexapro) 10 MG tablet Take 10 mg by mouth daily., Historical Med fenofibrate micronized (Lofibra) 67 MG capsule Take 67 mg by mouth daily (with breakfast)., Historical Med !! gabapentin (Neurontin) 100 MG capsule Take 2 capsules (200 mg) by mouth 3 times daily., Starting Wed11/14/2024, Until Wed11/14/2025, Normal !! gabapentin (Neurontin) 400 MG capsule Take 400 mg by mouth 3 times daily., Historical Med hydrALAZINE (Apresoline) 50 MG tablet Take by mouth., Historical Med insulin glargine (Lantus) 100 UNIT/ML injection Inject 60 Units under the skin Nightly., Historical Med Insulin Lispro (Humalog) 100 UNIT/ML solution injection Inject 10 Units under the skin 3 times daily (with meals)., Starting Wed11/14/2024, Until Wed11/14/2025, Normal levothyroxine (Synthroid, Levoxyl) 75 MCG tablet Take by mouth every morning (before breakfast)., Historical Med metoprolol succinate XL (Toprol-XL) 100 MG 24 hr tablet Take by mouth. Do not crush or chew., Historical Med rOPINIRole (Requip) 0.5 MG tablet Take 0.5 mg by mouth 3 times daily., Historical Med senna-docusate (Roxanne-Colace) 8.6-50 MG tablet Take 1 tablet by mouth daily., Historical Med !! - Potential duplicate medications found. Please discuss with provider. Allergies[4] I have reviewed the history above as provided by nursing notes. Physical Exam ED Triage Vitals Temp Heart Rate Resp BP 12/03/24223812/03/24223812/03/24223812/03/24 2240 36.6 ?C (97.8 ?F) 86 16 (!) 147/90 SpO2 Temp Source Heart Rate Source Patient Position 12/03/24223812/03/24223812/03/24 2340 -- 97 % Oral Monitor BP Location FiO2 (%) 12/04/24 0024 -- Left arm GENERAL: The patient appears nourished and normally developed. Vital signs as documented. EYES: PERRL. No scleral icterus or orbital trauma noted. HEENT: Mucous membranes moist. Nares patent without copious rhinorrhea. LUNGS: Lungs are clear to auscultation, without any respiratory distress. CARDIAC: Rhythm is regular. No murmur appreciated ABDOMEN: Nontender, soft, with no obvious masses, and no peritoneal signs. EXTREMITIES: Non edematous, with no obvious deformities. SKIN: Good color, with no significant rashes. No pallor. NEURO: No obvious neurological deficits, normal sensation and strength bilaterally. Diagnostics Labs: Results for orders placed or performed during the hospital encounter of 12/03/24 CBC auto differential Collection Time: 12/03/24 10:46 PM Result Value Ref Range Auto WBC 8.6 3.6 - 10.7 10*3/uL RBC 3.77 (L) 3.80 - 5.20 10*6/uL Hemoglobin 11.0 (L) 11.7 - 16.0 g/dL Hematocrit 33.1 (L) 35.0 - 47.0 % MCV 87.8 77.0 - 99.0 fL MCH 29.2 26.0 - 34.0 pg MCHC 33.2 30.5 - 36.0 % RDW 13.7 11.5 - 15.0 % Platelets 386 140 - 440 10*3/uL MPV 9.5 9.0 - 12.7 fL nRBC 0.0 0.0 - 2.0 /100 WBCs Neutrophils Relative 59.5 38.0 - 82.0 % Ly (more content not included)... Normal [facility] HIGH SENSITIVITY TROPONIN, S ERIAL BASELINEon 12-03-2024 TROPONIN HS SERIAL BASELINE 15 ng/L High <=14 [facility] Comment on above: Result Comment: In i ndividuals presenting with symptoms > 2h, a baseline troponin <= 5 ng/L suggests acute cardiac injury is unlikely and further serial testing is generally not indicated. Performed By: #### Jaky AB17, LAB99, [id number] ####Newscast Director: LAURA BAUTISTA ([id number])[facility] (SWRL[facility])[address] [place] [address] LIPASEon 12-03-2024 Lipase [Catalytic activity/Vol] 17 U/L Normal <55 [facility] Comment on above: Performed By: #### L AB17, LAB99, [id number] ####Newscast Director: LAURA BAUTISTA ([id number])[facility] (SWRLAB)[address] [place] [address] [id number] 11-14-2024 [id number] TCC received secure chat that pt is medically stable to return to LTC today via [employer]. TCC asked that DC order be placed and MANDY completed. TCC added RN and SW to chat to notify. TCC updated LTC facility of DC today. Pt is bedhold, no auth needed to return. Discharge order placed and MANDY completed. TCC tasked BUSINESS EXCELLENCE MANAGER to set up transport. Transport set up for 3:00 pm. TCC notified RN and sectary of time. TCC notified pt at bedside of time. TCC called legal guardian to notify of DC today and transport time. Spoke with legal guardian regarding transportation plan. Confirmed pickup time is 3:00 pm. Discussed patient may have a co-pay for ambulance depending on their individual insurance coverage. Advised legal guardian to call number on back of insurance card with questions or concerns. Legal guardian is agreeable to DC today and has verbalized understanding. BUSINESS EXCELLENCE MANAGER notified LTC of time. TCC tasked BUSINESS EXCELLENCE MANAGER to transmit DC orders to LTC. [facility] was placed in follow up provider section. Discharge date updated and milestones completed. Pt will be transported to [facility] LT return today at 3:00 pm via ambulance transport. [facility] [phone] Confirmed pickup anh e of 3 pm by transport company [employer] at phone number [phone]. Location of facility drop off is [facility]. [facility], TCC notified on secure chat. [facility] [phone] MAR, Med Rec and Discharge Paperwork sent to [facility] via [facility] per TCC request. [facility] [phone] Pt is able to return to [facility]. She is there LT level of care and is a bedhold. No auth needed to return. No covid needed to return. Pt is able to return whenever medically stable. TCC will follow for pt readiness. [facility] BASIC METABOLIC PANELon 08-2 Anion gap [Moles/Vol] 7 mmol/L Normal 3-13 [facility] Comment on above: Performed By: #### L AB90 #### Newscast Director: LAURA BAUTISTA ([id number]) [facility] ([facility]) [address] [place] [address] Calcium [Mass/Vol] 7.8 mg/dL Low 8.8-10.0 [facility] Comment on above: Performed By: #### L AB90 #### Newscast Director: LAURA BAUTISTA ([id number]) [facility] ([facility]) [address] [place] [address] [place] Chloride [Moles/Vol] 116 mmol/L High 98-107 [facility] Comment on above: Performed By: #### L AB90 #### Newscast Director: LAURA BAUTISTA ([id number]) [facility] ([facility]) [address] [place] [address] CO2 [Moles/Vol] 20 mmol/L Low 23-31 [facility] Comment on above: Performed By: #### L AB90 #### Newscast Director: LAURA BAUTISTA ([id number]) [facility] ([facility]) [address] [place] [address] Creatinine [Mass/Vol] 2.26 mg/dL High 0.57-1.11 [facility] Comment on above: Performed By: #### L AB90 #### Newscast Director: LAURA BAUTISTA ([id number]) [facility] ([facility]) [address] [place] [address] [place] GLOMERULAR FILTRATION RATE ML/MIN/1.73 SQ M.PREDICTED 24.0 mL/min/1.73m*2 Low >60.0 [facility] Comment on above: Result Comment: Calc ulation based on the Chronic Kidney Disease Epidemiology Collaboration (CKD-EPI) equation refit without adjustment for race Performed By: #### L AB90 #### Newscast Director: LAURA BAUTISTA ([id number]) [facility] ([facility]) [address] [place] [address] [place] Glucose [Mass/Vol] 112 mg/dL Normal 82-115 [facility] Comment on above: Performed By: #### L AB90 #### Newscast Director: LAURA BAUTISTA ([id number]) [facility] ([facility]) [address] [place] [address] Potassium [Moles/Vol] 4.7 mmol/L Normal 3.5-5.1 [facility] Comment on above: Result Comment: [facility] potassium values may be up to 0.5 mmol/L lower than serum values. Performed By: #### L AB90 #### Newscast Director: LAURA BAUTISTA ([id number]) [facility] ([facility]) [address] [place] [address] Sodium [Moles/Vol] 143 mmol/L Normal 136-145 [facility] Comment on above: Performed By: #### L AB90 #### Newscast Director: LAURA BAUTISTA ([id number]) [facility] ([facility]) [address] [place] [address] Urea nitrogen [Mass/Vol] 45 mg/dL High 9-23 [facility] Comment on above: Performed By: #### L AB90 #### Newscast Director: LAURA BAUTISTA ([id number]) [facility] ([facility]) [address] [place] [address] CBC (HEMOGRAM)on 11-14-2024 Erythrocyte distribution width (RBC) [Ratio] 14.1 % Normal 11.5-15.0 [facility] Comment on above: Performed By: #### L AB294 ####Newscast Director: LAURA BAUTISTA ([id number])[facility] ([facility])[address] [place] [address] Hematocrit (Bld) [Volume fraction] 31.5 % Low 35.0-47.0 [facility] Comment on above: Performed By: #### L AB294 ####Newscast Director: LAURA BAUTISTA ([id number])[facility])[address] [place] [address] Hemoglobin (Bld) [Mass/Vol] 10.1 g/dL Low 11.7-16.0 [facility] Comment on above: Performed By: #### L AB294 ####Newscast Director: LAURA [id number])[facility] ([facility])[address] [place] [address] MCH (RBC) [Entitic mass] 29.0 pg Normal 26.0-34.0 [facility] Comment on above: Performed By: #### L AB294 ####Newscast Director: LAURA BAUTISTA ([id number])[facility] ([facility])[address] [place] [address] MCHC 32.1 % Normal 30.5-36.0 [facility] Comment on above: Performed By: #### L AB294 ####Newscast Director: LAURA BAUTISTA ([id number])[facility] ([facility])[address] [place] [address] MCV (RBC) [Entitic vol] 90.5 fL Normal 77.0-99.0 [facility] Comment on above: Performed By: #### L AB294 ####Newscast Director: LAURA BAUTISTA ([id number])[facility] ([facility])[address] [place] [address] Platelet mean volume (Bld) [Entitic vol] 9.6 fL Normal 9.0-12.7 [facility] Comment on above: Performed By: #### L AB294 ####Newscast Director: LAURA BAUTISTA ([id number])[facility] ([facility])[address] [place] [address] Platelets (Bld) [#/Vol] 294 10*3/uL Normal 140-440 [facility] Comment on above: Performed By: #### L AB294 ####Newscast Director: LAURA BAUTISTA ([id number])[facility] ([facility])[address] [place] [address] RBC (Bld) [#/Vol] 3.48 10*6/uL Low 3.80-5.20 [facility] Comment on above: Performed By: #### L AB294 ####Newscast Director: LAURA BAUTISTA ([id number])[facility] ([facility])[address] [place] [address] [place] WBC (Bld) [#/Vol] 11.5 10*3/uL High 3.6-10.7 [facility] Comment on above: Performed By: #### L AB294 ####Newscast Director: LAURA BAUTISTA ([id number])[facility] ([facility])[address] [place] [address] [facility] Nursing Noteon 11-14-2024 Nursing Note RN called report to [facility] and spoke with Julissa. Patient IV removed, belongings gathered and prepared for discharge. Normal [facility] Progress Noteon 11-14-2024 Progress Note Nutrition Assessment Type and Reason for Visit: Consult (uncontrolled diabetes) Nutrition Recommendations/Plan: Patient currently ordered a Regular; 5 Carb Choice (75 gm/meal) diet. Per MNT protocol, will modify to 4 Carb Choices (60 gm/meal). Monitor PO intake for need of ONS initiation. Please record % meal consumed in flow sheet for most accurate nutrient intake assessment. Diet education not appropriate at this time. Will continue to monitor weight changes, labs, and overall nutrition status. RD will continue to follow up weekly. Malnutrition Assessment: Malnutrition Status: No malnutrition Context: Acute Illness Findings of the 6 clinical characteristics of malnutrition: Energy Intake: No significant decrease in energy intake Weight Loss: No significant weight loss Body Fat Loss: No significant body fat loss Muscle Mass Loss: No significant muscle mass loss Fluid Accumulation: Moderate to Severe Extremities Sports Trainer Strength: Not Performed Nutrition Assessment: Patient with a PMHx of anxiety, asthma, COPD, depression, developmental delay, type 2 DM, HLD, HTN, STEFANI, CKD stage 3b, dementia that presented to the ED on 11/11/24 from [facility] for hyperglycemia with BS elevated in the 500's. In the ED patient complaints of chest pain and SOB. In the ED, pt was afebrile, hypertensive (186/80), HR 99, K 5.8,BUN 70, creatinine 3.00, Glucose 523, Ca 7.5, troponin negative, WBC 11.7, H/H 10.1/30.1, BHB 0.6. Chest xray no acute process. EKG SR no ST-T wave abnormalities, rate 85, qtc 427. Pt was admitted to medicine for further evaluation and mgt. UA positive. IV fluids. Echo,US, and BLE duplex ordered, pending. Patient initially ordered a Regular diet, however upon writing this note, diet changed to 5 CHO. No pertinent information in paper chart. Patient sitting in chair finishing lunch upon RD assessment. Patient reports a good appetite, states she eats 3 meals per day at baseline. Patient unsure if she follows a CHO consistent diet at [facility]. RD observed a bowl of raw veggies (w/ranch), and unopened yogurt parfait on bed side table. Patient requesting RD order another parfait, and ranch as she would like to save these items for later. Patient unsure of UBW. Denies n/v/d/c. No nutritional questions at this time. After interview, RD in alberto heard patient call RN to order 2 yogurt parfaits and 2 fat-free ranch dressings. Estimated Daily Nutrient Needs: Energy Requirements Based On: Kcal/kg Weight Used for Energy Requirements: [place] Weight for Energy Calculation (kg): 59 kg Total Energy Requirements (kcals/day): 3546-4933 kcal/day (25-30) Weight Used for Protein Requirements: [place] Weight in Kg Used for Protein Requirements: 59 kg Estimated Total Protein (g/day): 59-71 g/day (1-1.2) Estimated Daily Total Fluid (ml/day): 2476-8170 ml/day Nutrition Related Findings: Nahid: 18. I&O: +450. Edema: +3 BLE. Labs: BUN 45, Cr 2.26, eGFR 24, calcium 7.8, glucose 249, A1c 9. Meds: Lipitor, Ancef, Apresoline, Humalog, Synthroid, Senokot Wound Type: None Current Nutrition Therapies: Adult diet Regular; 5 carb choices (75 gm/meal) Current Oral Intake Average Meal Intake: 76-100% Average Supplements Intake: None Ordered Anthropometric Measures: Height: 167.6 cm (5' 6") Current Body Weight: 148 kg (326 lb) (11/13/24) Weight Source: Standing Scale Admission Body Weight: 148 kg (326 lb) (11/12/24 Standing) Usual Body Weight: (Per Epic -> 07/13/24 303#, 10/17 300# stated) [place] Body Weight (lbs) (Calculated): 130 lbs [place] Body Weight (Kg) (Calculated): 59 kg % [place] Body Weight (Calculated): 250.8 % BMI (kg/m2) (Calculated): 52.6 Weight Adjustment For: No Adjustment BMI Categories: Obese Class 3 (BMI 40.0 or greater) Nutrition Diagnosis: Altered nutrition-related lab values related to endocrine dysfuntion as evidenced by lab values Nutrition Interventions: Nutrition Education/Counseling: Education not appropriate Coordination of Nutrition Care: Continue to monitor while inpatient Goals: Goals: Meet at least 75% of estimated needs, by next RD assessment Nutrition Monitoring and Evaluation: Behavioral-Environment al Outcomes: None Identified Food/Nutrient Intake Outcomes: Food and Nutrient Intake Physical Signs/Symptoms Outcomes: Biochemical Data, Chewing or Swallowing, GI Status, Nausea or Vomiting, Skin, Weight, Nutrition Focused Physical Findings, Hemodynamic Status, Fluid Status or Edema Discharge Planning: Too soon to determine Monica Felix RD Contact: [phone] Normal [facility] BASIC METABOLIC PANELon 10-21 Anion gap [Moles/Vol] 4 mmol/L Normal 3-13 [facility] Comment on above: Performed By: #### L AB106, LAB15, [id number] ####Newscast Director: LAURA BAUTISTA ([id number])[address] Calcium [Mass/Vol] 7.7 mg/dL Low 8.8-10.0 [facility] Comment on above: Performed By: #### L AB106, LAB15, [id number] ####Newscast Director: LAURA BAUTISTA ([id number])[facility] ([facility])[address] [place] [address] Chloride [Moles/Vol] 117 mmol/L High 98-107 [facility] Comment on above: Performed By: #### L AB106, LAB15, [id number] ####Newscast Director: LAURA [id number])[facility])[address] [place] [address] CO2 [Moles/Vol] 19 mmol/L Low 23-31 [facility] Comment on above: Performed By: #### L AB106, LAB15, [id number] ####Newscast Director: LAURA [id number])[facility] ([facility])[address] [place] [address] Creatinine [Mass/Vol] 2.37 mg/dL High 0.57-1.11 [facility] Comment on above: Performed By: #### L AB106, LAB15, [id number] ####Newscast Director: LAURA BAUTISTA ([id number])[facility] ([facility])[address] [place] [address] [place] GLOMERULAR FILTRATION RATE ML/MIN/1.73 SQ M.PREDICTED 22.7 mL/min/1.73m*2 Low >60.0 [facility] Comment on above: Result Comment: Calc ulation based on the Chronic Kidney Disease Epidemiology Collaboration (CKD-EPI) equation refit without adjustment for race Performed By: #### L AB106, LAB15, [id number] ####Newscast Director: LAURA BAUTISTA ([phone])[facility] ([facility])[address] [place] [address] Glucose [Mass/Vol] 119 mg/dL High 82-115 [facility] Comment on above: Performed By: #### L AB106, LAB15, [id number] ####Newscast Director: LAURA BAUTISTA ([phone])[facility])[address] [place] [address] Potassium [Moles/Vol] 5.0 mmol/L Normal 3.5-5.1 [facility] Comment on above: Result Comment: [facility] potassium values may be up to 0.5 mmol/L lower than serum values. Performed By: #### L AB106, LAB15, [id number] ####Newscast Director: LAURA BAUTISTA ([id number])[facility] ([facility])[address] [place] [address] [place] Sodium [Moles/Vol] 140 mmol/L Normal 136-145 [facility] Comment on above: Performed By: #### L AB106, LAB15, [id number] ####Newscast Director: LAURA BAUTISTA ([phone])[facility])[address] [place] [address] [place] Urea nitrogen [Mass/Vol] 51 mg/dL High 9-23 [facility] Comment on above: Performed By: #### L AB106, LAB15, [id number] ####Newscast Director: LAURA BAUTISTA ([phone])[facility])[address] [place] [address] CBC WITH AUTO DIFFERENTIALon 11-13-2024 Erythrocyte distribution width (RBC) [Ratio] 13.9 % Normal 11.5-15.0 [facility] Comment on above: Performed By: #### L AB90 #### Newscast Director: LAURA BAUTISTA ([id number]) [facility]) [address] [place] [address] Hematocrit (Bld) [Volume fraction] 30.6 % Low 35.0-47.0 [facility] Comment on above: Performed By: #### L AB90 #### Newscast Director: LAURA BAUTISTA ([phone]) [facility]) [address] [place] [address] Hemoglobin (Bld) [Mass/Vol] 9.9 g/dL Low 11.7-16.0 [facility] Comment on above: Performed By: #### L AB90 #### Newscast Director: LAURA BAUTISTA ([phone]) [facility]) [address] [place] [address] MCH (RBC) [Entitic mass] 28.9 pg Normal 26.0-34.0 [facility] Comment on above: Performed By: #### L AB90 #### Newscast Director: LAURA BAUTISTA ([id number]) [facility]) [address] [place] [address] MCHC 32.4 % Normal 30.5-36.0 [facility] Comment on above: Performed By: #### L AB90 #### Newscast Director: LAURA BAUTISTA ([phone]) [facility]) [address] [place] [address] MCV (RBC) [Entitic vol] 89.5 fL Normal 77.0-99.0 [facility] Comment on above: Performed By: #### L AB90 #### Newscast Director: LAURA BAUTISTA ([phone]) [facility] ([facility]) [address] [place] [address] Platelet mean volume (Bld) [Entitic vol] 9.1 fL Normal 9.0-12.7 [facility] Comment on above: Performed By: #### L AB90 #### Newscast Director: LAURA BAUTISTA ([id number]) [facility] ([facility]) [address] [place] [address] Platelets (Bld) [#/Vol] 298 10*3/uL Normal 140-440 [facility] Comment on above: Performed By: #### L AB90 #### Newscast Director: LAURA BAUTISTA ([phone]) [facility] ([facility]) [address] [place] [address] RBC (Bld) [#/Vol] 3.42 10*6/uL Low 3.80-5.20 [facility] Comment on above: Performed By: #### L AB90 #### Newscast Director: LAURA BAUTISTA ([phone]) [facility] ([facility]) [address] [place] [address] WBC (Bld) [#/Vol] 12.9 10*3/uL High 3.6-10.7 [facility] Comment on above: Performed By: #### L AB90 #### Newscast Director: LAURA BAUTISTA ([phone]) [facility] ([facility]) [address] [place] [address] MANUAL DIFFERENTIALon 2024 BAND NEUTROPHILS TOTAL PER COUNTED LEUKOCYTES BY MANUAL COUNT 9 Normal [facility] Comment on above: Performed By: #### L AB90 #### Newscast Director: LAURA BAUTISTA ([phone]) [facility]) [address] [place] [address] BANDS 0.6 10*3/uL High <=0.0 [facility] Comment on above: Performed By: #### L AB90 #### Newscast Director: LAURA [phone]) [facility] ([facility]) [address] [place] [address] [place] BASOPHILS (10*3/UL) IN BLOOD BY MANUAL COUNT 0.2 10*3/uL Normal 0.0-0.2 [facility] Comment on above: Performed By: #### L AB90 #### Newscast Director: LAURA BAUTISTA ([id number]) [facility] ([facility]) [address] [place] [address] [place] BASOPHILS TOTAL PER COUNTED LEUKOCYTES BY MANUAL COUNT 3 Normal [facility] Comment on above: Performed By: #### L AB90 #### Newscast Director: LAURA BAUTISTA ([phone]) [facility] ([facility]) [address] [place] [address] [place] BASOPHILS/100 LEUKOCYTES IN BLOOD BY MANUAL COUNT 2 % Normal 0-2 [facility] Comment on above: Performed By: #### L AB90 #### Newscast Director: LAURA BAUTISTA ([id number]) [facility] ([facility]) [address] [place] [address] [place] CELLS COUNTED TOTAL (#) IN BLOOD 200 Normal [facility] Comment on above: Performed By: #### L AB90 #### Newscast Director: LAURA BAUTISTA ([phone]) [facility] ([facility]) [address] [place] [address] [place] EOSINOPHILS (10*3/UL) IN BLOOD BY MANUAL COUNT 1.5 10*3/uL High 0.0-0.5 [facility] Comment on above: Performed By: #### L AB90 #### Newscast Director: LAURA BAUTISTA ([phone]) [facility] ([facility]) [address] [place] [address] [place] EOSINOPHILS TOTAL PER COUNTED LEUKOCYTES BY MANUAL COUNT 23 High 0-1 [facility] Comment on above: Performed By: #### L AB90 #### Newscast Director: LAURA BAUTISTA ([id number]) [facility] ([facility]) [address] [place] [address] [place] EOSINOPHILS/100 LEUKOCYTES IN BLOOD BY MANUAL COUNT 12 % High 0-6 [facility] Comment on above: Performed By: #### L AB90 #### Newscast Director: LAURA BAUTISTA ([phone]) [facility] ([facility]) [address] [place] [address] LEUKOCYTE MORPHOLOGY FINDING IN BLOOD Normal Normal [facility] Comment on above: Performed By: #### L AB90 #### Newscast Director: LAURA BAUTISTA ([phone]) [facility] ([facility]) [address] [place] [address] [place] LEUKOCYTES (10*3/UL) NUCLEATED ERYTHROCYTE ADJUST 12.9 10*3/uL High 3.6-10.7 [facility] Comment on above: Performed By: #### L AB90 #### Newscast Director: LAURA BAUTISTA ([id number]) [facility] ([facility]) [address] [place] [address] LYMPHOCYTES (10*3/UL) IN BLOOD BY MANUAL COUNT 2.8 10*3/uL Normal 1.0-4.3 [facility] Comment on above: Performed By: #### L AB90 #### Newscast Director: LAURA BAUTISTA ([id number]) [facility] ([facility]) [address] [place] [address] [place] LYMPHOCYTES TOTAL PER COUNTED LEUKOCYTES BY MANUAL COUNT 43 Normal [facility] Comment on above: Performed By: #### L AB90 #### Newscast Director: LAURA BAUTISTA ([id number]) [facility] ([facility]) [address] [place] [address] [place] LYMPHOCYTES/100 LEUKOCYTES IN BLOOD BY MANUAL COUNT 22 % Normal 15-45 [facility] Comment on above: Performed By: #### L AB90 #### Newscast Director: LAURA BAUTISTA ([id number]) [facility] ([facility]) [address] [place] [address] [place] METAMYELOCYTES (10*3/UL) IN BLOOD BY MANUAL COUNT 0.3 10*3/uL High <=0.0 [facility] Comment on above: Performed By: #### L AB90 #### Newscast Director: LAURA BAUTISTA ([phone]) [facility] ([facility]) [address] [place] [address] [place] METAMYELOCYTES TOTAL PER COUNTED LEUKOCYTES BY MANUAL COUNT 4 Normal [facility] Comment on above: Performed By: #### L AB90 #### Newscast Director: LAURA BAUTISTA ([phone]) [facility] ([facility]) [address] [place] [address] [place] METAMYELOCYTES/100 LEUKOCYTES IN BLOOD BY MANUAL COUNT 2 % High <=0 [facility] Comment on above: Performed By: #### L AB90 #### Newscast Director: LAURA BAUTISTA ([id number]) [facility] ([facility]) [address] [place] [address] [place] MONOCYTES (10*3/UL) IN BLOOD BY MANUAL COUNT 0.6 10*3/uL Normal 0.0-0.9 [facility] Comment on above: Performed By: #### L AB90 #### Newscast Director: LAUAR BAUTISTA ([id number]) [facility] ([facility]) [address] [place] [address] [place] MONOCYTES TOTAL PER COUNTED LEUKOCYTES BY MANUAL COUNT 9 Normal [facility] Comment on above: Performed By: #### L AB90 #### Newscast Director: LAURA BAUTISTA ([id number]) [facility] ([facility]) [address] [place] [address] [place] MONOCYTES/100 LEUKOCYTES IN BLOOD BY MANUAL COUNT 5 % Normal 5-13 [facility] Comment on above: Performed By: #### L AB90 #### Newscast Director: LAURA BAUTISTA ([phone]) [facility] ([facility]) [address] [place] [address] [place] MYELOCYTES (10*3/UL) IN BLOOD BY MANUAL COUNT 0.1 10*3/uL High <=0.0 [facility] Comment on above: Performed By: #### L AB90 #### Newscast Director: LAURA BAUTISTA ([phone]) [facility] ([facility]) [address] [place] [address] [place] MYELOCYTES COUNTED BY MANUAL COUNT 2 Normal [facility] Comment on above: Performed By: #### L AB90 #### Newscast Director: LAURA BAUTISTA ([id number]) [facility] ([facility]) [address] [place] [address] [place] MYELOCYTES/100 LEUKOCYTES IN BLOOD BY MANUAL COUNT 1 % High <=0 [facility] Comment on above: Performed By: #### L AB90 #### Newscast Director: LAURA BAUTISTA ([phone]) [facility] ([facility]) [address] [place] [address] [place] NEUTROPHILS (SEGS+BANDS) (10*3/UL) BY MANUAL COUNT 7.5 10*3/uL High 1.8-7.0 [facility] Comment on above: Performed By: #### L AB90 #### Newscast Director: LAURA BAUTISTA ([phone]) [facility] ([facility]) [address] [place] [address] [place] NEUTROPHILS BAND FORM/100 LEUKOCYTES IN BLOOD BY MANUAL COUNT 5 % High <=0 [facility] Comment on above: Performed By: #### L AB90 #### Newscast Director: LAURA BAUTISTA ([phone]) [facility] ([facility]) [address] [place] [address] [place] NEUTROPHILS TOTAL PER COUNTED LEUKOCYTES BY MANUAL COUNT 107 Normal [facility] Comment on above: Performed By: #### L AB90 #### Newscast Director: LAURA BAUTISTA ([phone]) [facility] ([facility]) [address] [place] [address] [place] PLATELET MORPHOLOGY IN BLOOD Normal Normal [facility] Comment on above: Performed By: #### L AB90 #### Newscast Director: LAURA BAUTISTA ([id number]) [facility] ([facility]) [address] [place] [address] [place] RBC MORPHOLOGY IN BLOOD Normal Normal [facility] Comment on above: Performed By: #### L AB90 #### Newscast Director: LAURA BAUTISTA ([id number]) [facility] ([facility]) [address] [place] [address] [place] SEGEMENTED NEUTROPHILS/100 LEUKOCYTES BY MANUAL COUNT 54 % Normal 38-82 [facility] Comment on above: Performed By: #### L AB90 #### Newscast Director: LAURA BAUTISTA ([id number]) [facility]) [address] [place] [address] SEGMENTED NEUTROPHILS (10*3/UL)IN BLOOD BY MANUAL COUNT 7.5 10*3/uL Normal 1.8-7.5 [facility] Comment on above: Performed By: #### L AB90 #### Newscast Director: LAURA BAUTISTA ([phone]) [facility]) [address] [place] [address] NT PRO BNPon 11-13-2024 Natriuretic peptide B (Bld) [Mass/Vol] 658 pg/mL High <125 [facility] Comment on above: Performed By: #### L AB106, LAB15, [id number] ####Newscast Director: LAURA BAUTISTA ([id number])[facility] ([facility])[address] [place] [address] PROCALCITONIN TESTon 025 PROCALCITONIN 0.11 ng/mL High <0.07 [facility] Comment on above: Result Comment: MITRA R COMMENTS: PCT <0.50 = Low risk of severe sepsis and/or septic shock. PCT >2.00 = High risk of severe sepsis and/or septic shock. Performed By: #### L AB106, LAB15, [id number] ####Newscast Director: LAURA BAUTISTA ([phone])[address] US RETROPERITONEUM LIMITEDon 11-13-2024 US RETROPERITONEUM LIMITED Patient Name: CINTHYA CASTILLO : 1960 Exam Date/Time: 11/12/2024 20:02 Procedure: US RETROPERITONEUM LIMITED Ordering Provider: HARDY GEORGE Reason For Exam: RONNI BILATERAL CAROTID ULTRASOUND: EXAM DATE AND TIME: 11/12/2024 8:02 PM EDT US RETROPERITONEAL COMPLETE CLINICAL INDICATION: Acute kidney injury TECHNIQUE: Complete ultrasound of the retroperitoneal structures. COMPARISON: None FINDINGS: Limitations: Body habitus limits evaluation. RIGHT KIDNEY: Size: 12 x 6.1 x 5.9 cm Echogenicity: normal. Parenchymal thickness: normal Contour: smooth Pelvicalyceal dilatation: none Calculus: none Mass: none Cyst: none LEFT KIDNEY: Size: 11.9 x 6.9 x 7 cm Echogenicity: normal. Lateral linear echogenic lines within the medullary may represent catheter or vascular shadow. Parenchymal thickness: normal Contour: smooth Pelvicalyceal dilatation: none Calculus: none Mass: none Cyst: none Bladder: The urinary bladder is incompletely distended. IMPRESSION: Normal complete ultrasound of retroperitoneum. Report Dictated on Electronically Signed By: Jb Mckeon DO Electronically Signed Date/Time: 11/13/2024 8:23 AM EDT Normal [facility] BASIC METABOLIC PANELon 08- Anion gap [Moles/Vol] 6 mmol/L Normal 3-13 [facility] Comment on above: Performed By: #### L AB90 #### Newscast Director: LAURA BAUTISTA ([phone]) [facility]) [address] [place] [address] Calcium [Mass/Vol] 7.7 mg/dL Low 8.8-10.0 [facility] Comment on above: Performed By: #### L AB90 #### Newscast Director: LAURA BAUTISTA ([id number]) [facility] ([facility]) [address] [place] [address] Chloride [Moles/Vol] 116 mmol/L High 98-107 [facility] Comment on above: Performed By: #### L AB90 #### Newscast Director: LAURA BAUTISTA ([id number]) [facility] ([facility]) [address] [place] [address] CO2 [Moles/Vol] 18 mmol/L Low 23-31 [facility] Comment on above: Performed By: #### L AB90 #### Newscast Director: LAURA BAUTISTA ([phone]) [facility]) [address] [place] [address] Creatinine [Mass/Vol] 2.62 mg/dL High 0.57-1.11 [facility] Comment on above: Performed By: #### L AB90 #### Newscast Director: LAURA BAUTISTA ([id number]) [facility] ([facility]) [address] [place] [address] [place] GLOMERULAR FILTRATION RATE ML/MIN/1.73 SQ M.PREDICTED 20.1 mL/min/1.73m*2 Low >60.0 [facility] Comment on above: Result Comment: Calc ulation based on the Chronic Kidney Disease Epidemiology Collaboration (CKD-EPI) equation refit without adjustment for race Performed By: #### L AB90 #### Newscast Director: LAURA BAUTISTA ([id number]) [facility] ([facility]) [address] [place] [address] [place] Glucose [Mass/Vol] 156 mg/dL High 82-115 [facility] Comment on above: Performed By: #### L AB90 #### Newscast Director: LAURA BAUTISTA ([phone]) [facility] ([facility]) [address] [place] [address] [place] Potassium [Moles/Vol] 5.1 mmol/L Normal 3.5-5.1 [facility] Comment on above: Result Comment: [facility] potassium values may be up to 0.5 mmol/L lower than serum values. Performed By: #### L AB90 #### Newscast Director: LAURA BAUTISTA ([id number]) [facility] ([facility]) [address] [place] [address] [place] Sodium [Moles/Vol] 140 mmol/L Normal 136-145 [facility] Comment on above: Performed By: #### L AB90 #### Newscast Director: LAURA BAUTISTA ([id number]) [facility] ([facility]) [address] [place] [address] [place] Urea nitrogen [Mass/Vol] 67 mg/dL High 9-23 [facility] Comment on above: Performed By: #### L AB90 #### Newscast Director: LAURA BAUTISTA ([id number]) [facility] ([facility]) [address] [place] [address] [place] Anion gap [Moles/Vol] 5 mmol/L Normal 3-13 [facility] Comment on above: Performed By: #### L AB15 ####Newscast Director: LAURA BAUTISTA ([id number])[facility] ([facility])[address] [place] [address] [place] Calcium [Mass/Vol] 7.4 mg/dL Low 8.8-10.0 [facility] Comment on above: Performed By: #### L AB15 ####Newscast Director: LAURA BAUTISTA ([phone])[facility]ITAL[facility] ([facility])[address] [place] [address] [place] Chloride [Moles/Vol] 115 mmol/L High 98-107 [facility] Comment on above: Performed By: #### L AB15 ####Newscast Director: LAURA BAUTISTA ([id number])[facility] ([facility])[address] [place] [address] CO2 [Moles/Vol] 16 mmol/L Low 23-31 [facility] Comment on above: Performed By: #### L AB15 ####Newscast Director: LAURA BAUTISTA ([phone])[facility]ITAL[facility] ([facility])[address] [place] [address] [place] Creatinine [Mass/Vol] 2.82 mg/dL High 0.57-1.11 [facility] Comment on above: Performed By: #### L AB15 ####Newscast Director: LAURA BAUTISTA ([id number])[facility]ITAL[facility] ([facility])[address] [place] [address] [place] GLOMERULAR FILTRATION RATE ML/MIN/1.73 SQ M.PREDICTED 18.4 mL/min/1.73m*2 Low >60.0 [facility] Comment on above: Result Comment: Calc ulation based on the Chronic Kidney Disease Epidemiology Collaboration (CKD-EPI) equation refit without adjustment for race Performed By: #### L AB15 ####Newscast Director: LAURA BAUTISTA ([id number])[facility]ITAL[facility] ([facility])[address] [place] [address] [place] Glucose [Mass/Vol] 410 mg/dL High 82-115 [facility] Comment on above: Performed By: #### L AB15 ####Newscast Director: LAURA BAUTISTA ([id number])[facility]ITALRam[facility] ([facility])[address] [place] [address] [place] Potassium [Moles/Vol] 5.8 mmol/L High 3.5-5.1 [facility] Comment on above: Result Comment: [facility] potassium values may be up to 0.5 mmol/L lower than serum values. Performed By: #### L AB15 ####Newscast Director: LAURA BAUTISTA ([phone])[facility]ITAL[facility] ([facility])[address] [place] [address] Sodium [Moles/Vol] 136 mmol/L Normal 136-145 [facility] Comment on above: Performed By: #### L AB15 ####Newscast Director: LAURA BAUTISTA ([id number])[facility]ITAL[facility] ([facility])[address] [place] [address] Urea nitrogen [Mass/Vol] 70 mg/dL High 9-23 [facility] Comment on above: Performed By: #### L AB15 ####Newscast Director: LAURA BAUTISTA ([id number])[facility]ITAL[facility] ([facility])[address] [place] [address] BETA HYDROXYBUTYRATEon 11-12 BETA HYDROXYBUTYRATE 0.6 mg/dL Normal <=2.8 [facility] Comment on above: Performed By: #### L AB17, [id number], [id number] ####Newscast Director: LAURA BAUTISTA ([id number])[facility]ITAL[facility] ([facility])[address] [place] [address] BLOOD GAS, VENOUS (SWR AND S HC)on 11-12-2024 AMOUNT OF OXYGEN 0 Normal [facility] Comment on above: Performed By: #### L AB90 #### Newscast Director: LAURA BAUTISTA ([phone]) [facility] ([facility]) [address] [place] [address] [place] BASE EXCESS (MMOL/L) IN VENOUS BLOOD -10.0 mmol/L Low -3.0-3.0 [facility] Comment on above: Performed By: #### L AB90 #### Newscast Director: LAURA BAUTISTA ([id number]) [facility] ([facility] [address] [place] [address] CARBON DIOXIDE (MM HG) IN VENOUS BLOOD 36 mm(Hg) Low 40-55 [facility] Comment on above: Performed By: #### L [id number] #### Newscast Director: LAURA BAUTISTA ([id number]) [facility] ([facility]) [address] [place] [address] [place] CO2 [Moles/Vol] 18.0 mmol/L Low 24.0-28.0 [facility] Comment on above: Performed By: #### L [id number] #### Newscast Director: LAURA BAUTISTA ([phone]) [facility] ([facility] [address] [place] [address] [place] HCO3 (Bld) [Moles/Vol] 17.1 mmol/L Low 23.0-27.0 [facility] Comment on above: Performed By: #### L [id number] #### Newscast Director: LAURA BAUTISTA ([phone]) [facility] [address] [place] [address] [place] OXYGEN (MM HG) IN VENOUS BLOOD 51 mm(Hg) Normal [facility] Comment on above: Performed By: #### L AB90 #### Newscast Director: LAURA BAUTISTA ([id number]) [facility] ([facility] [address] [place] [address] [place] OXYGEN SATURATION (%) IN VENOUS BLOOD 82.0 % High 60.0-80.0 [facility] Comment on above: Performed By: #### L AB90 #### Newscast Director: LAURA BAUTISTA ([id number]) [facility] ([facility] [address] [place] [address] [place] pH (Bld) 7.282 [pH] Low 7.310-7.410 [facility] Comment on above: Performed By: #### L AB90 #### Newscast Director: LAURA BAUTISTA ([id number]) [facility] ([facility]) [address] [place] [address] SOURCE OF OXYGEN None (Room Air) Normal [facility] Comment on above: Performed By: #### L AB90 #### Newscast Director: LAURA BAUTISTA ([id number]) [facility] ([facility]) [address] [place] [address] AMOUNT OF OXYGEN 0 Normal [facility] Comment on above: Performed By: #### L AB90 #### Newscast Director: LAURA BAUTISTA ([id number]) [facility] ([facility]) [address] [place] [address] BASE EXCESS (MMOL/L) IN VENOUS BLOOD -10.0 mmol/L Low -3.0-3.0 [facility] Comment on above: Performed By: #### L AB90 #### Newscast Director: LAURA BAUTISTA ([id number]) [facility] ([facility]) [address] [place] [address] CARBON DIOXIDE (MM HG) IN VENOUS BLOOD 34 mm(Hg) Low 40-55 [facility] Comment on above: Performed By: #### L AB90 #### Newscast Director: LAURA BAUTISTA ([id number]) [facility] ([facility]) [address] [place] [address] [place] CO2 [Moles/Vol] 18.0 mmol/L Low 24.0-28.0 [facility] Comment on above: Performed By: #### L AB90 #### Newscast Director: LAURA [id number]) [facility] ([facility]) [address] [place] [address] [place] HCO3 (Bld) [Moles/Vol] 16.5 mmol/L Low 23.0-27.0 [facility] Comment on above: Performed By: #### L AB90 #### Newscast Director: LAURA [id number]) [facility]) [address] [place] [address] OXYGEN (MM HG) IN VENOUS BLOOD 43 mm(Hg) Normal [facility] Comment on above: Performed By: #### L AB90 #### Newscast Director: LAURA BAUTISTA ([id number]) [facility] ([facility]) [address] [place] [address] OXYGEN SATURATION (%) IN VENOUS BLOOD 74.0 % Normal 60.0-80.0 [facility] Comment on above: Performed By: #### L AB90 #### Newscast Director: LAURA BAUTISTA ([id number]) [facility] ([facility]) [address] [place] [address] pH (Bld) 7.292 [pH] Low 7.310-7.410 [facility] Comment on above: Performed By: #### L AB90 #### Newscast Director: LAURA BAUTISTA ([id number]) [facility] ([facility]) [address] [place] [address] SOURCE OF OXYGEN None (Room Air) Normal [facility] Comment on above: Performed By: #### L AB90 #### Newscast Director: LAURA BAUTISTA ([id number]) [facility] ([facility]) [address] [place] [address] CBC WITH AUTO DIFFERENTIALon 11-12-2024 Erythrocyte distribution width (RBC) [Ratio] 13.8 % Normal 11.5-15.0 [facility] Comment on above: Performed By: #### L AB90 #### Newscast Director: LAURA BAUTISTA ([id number]) [facility] ([facility]) [address] [place] [address] Hematocrit (Bld) [Volume fraction] 30.1 % Low 35.0-47.0 [facility] Comment on above: Performed By: #### L AB90 #### Newscast Director: LAURA BAUTISTA ([id number]) [facility]) [address] [place] [address] Hemoglobin (Bld) [Mass/Vol] 10.1 g/dL Low 11.7-16.0 [facility] Comment on above: Performed By: #### L AB90 #### Newscast Director: LAURA BAUTISTA ([id number]) [facility] ([facility]) [address] [place] [address] MCH (RBC) [Entitic mass] 29.4 pg Normal 26.0-34.0 [facility] Comment on above: Performed By: #### L AB90 #### Newscast Director: LAURA BAUTISTA ([id number]) [facility] ([facility]) [address] [place] [address] MCHC 33.6 % Normal 30.5-36.0 [facility] Comment on above: Performed By: #### L AB90 #### Newscast Director: LAURA BAUTISTA ([id number]) [facility] ([facility]) [address] [place] [address] MCV (RBC) [Entitic vol] 87.8 fL Normal 77.0-99.0 [facility] Comment on above: Performed By: #### L AB90 #### Newscast Director: LAURA BAUTISTA ([id number]) [facility] ([facility]) [address] [place] [address] NRBC 0.0 /100 WBCs Normal 0.0-2.0 [facility] Comment on above: Performed By: #### L AB90 #### Newscast Director: LAURA BAUTISTA ([id number]) [facility] ([facility]) [address] [place] [address] Platelet mean volume (Bld) [Entitic vol] 9.7 fL Normal 9.0-12.7 [facility] Comment on above: Performed By: #### L AB90 #### Newscast Director: LAURA BAUTISTA ([id number]) [facility] ([facility]) [address] [place] [address] Platelets (Bld) [#/Vol] 323 10*3/uL Normal 140-440 [facility] Comment on above: Performed By: #### L AB90 #### Newscast Director: LAURA BAUTISTA ([id number]) [facility]) [address] [place] [address] RBC (Bld) [#/Vol] 3.43 10*6/uL Low 3.80-5.20 [facility] Comment on above: Performed By: #### L AB90 #### Newscast Director: LAURA BAUTISTA ([id number]) [facility] ([facility]) [address] [place] [address] WBC (Bld) [#/Vol] 11.7 10*3/uL High 3.6-10.7 [facility] Comment on above: Performed By: #### L AB90 #### Newscast Director: LAURA BAUTISTA ([phone]) [facility]) [address] [place] [address] COMPLETE URINALYSIS WITH REF CRISTINA TO CULTUREon 11-12-2024 BACTERIA (#/HPF) IN URINE Few Abnormal Negative [facility] Comment on above: Performed By: #### L AB90 #### Newscast Director: LAURA BAUTISTA ([id number]) [facility] ([facility]) [address] [place] [address] BILIRUBIN, TOTAL PRESENCE IN URINE Negative Normal Negative [facility] Comment on above: Performed By: #### L AB90 #### Newscast Director: LAURA BAUTISTA ([id number]) [facility] ([facility]) [address] [place] [address] Clarity (U) Clear Normal Clear [facility] Comment on above: Performed By: #### L AB90 #### Newscast Director: LAURA BAUTISTA ([id number]) [facility] ([facility]) [address] [place] [address] Color (U) Light Yellow Normal Lt. Yellow [facility] Comment on above: Performed By: #### L AB90 #### Newscast Director: LAURA BAUTISTA ([phone]) [facility] ([facility]) [address] [place] [address] Glucose (U) [Mass/Vol] 150 mg/dL Abnormal Normal (<70) [facility] Comment on above: Performed By: #### L AB90 #### Newscast Director: LAURA BAUTISTA ([id number]) [facility] ([facility]) [address] [place] [address] HEMOGLOBIN PRESENCE IN URINE Negative Normal Negative [facility] Comment on above: Performed By: #### L AB90 #### Newscast Director: LAURA BAUTISTA ([id number]) [facility] ([facility]) [address] [place] [address] Ketones Ql (U) Negative Normal Negative [facility] Comment on above: Performed By: #### L AB90 #### Newscast Director: LAURA BAUTISTA ([id number]) [facility] ([facility]) [address] [place] [address] LEUKOCYTE ESTERASE PRESENCE IN URINE BY TEST STRIP Negative Normal Negative [facility] Comment on above: Performed By: #### L AB90 #### Newscast Director: LAURA BAUTISTA ([id number]) [facility] ([facility]) [address] [place] [address] NITRITE PRESENCE IN URINE Negative Normal Negative [facility] Comment on above: Performed By: #### L AB90 #### Newscast Director: LAURA BAUTISTA ([id number]) [facility] ([facility]) [address] [place] [address] pH (U) 5.5 [pH] Normal 5.0-8.0 [facility] Comment on above: Performed By: #### L AB90 #### Newscast Director: LAURA BAUTISTA ([id number]) [facility] ([facility]) [address] [place] [address] Protein (U) [Mass/Vol] 100 mg/dL Abnormal Negative [facility] Comment on above: Performed By: #### L AB90 #### Newscast Director: LAURA BAUTISTA ([id number]) [facility]) [address] [place] [address] RBC (#/HPF) IN URINE SEDIMENT 0-2 Normal 0-2 [facility] Comment on above: Performed By: #### L AB90 #### Newscast Director: LAURA BAUTISTA ([id number]) [facility] ([facility]) [address] [place] [address] Specific gravity (U) [Rel density] 1.015 Normal 1.005-1.030 [facility] Comment on above: Result Comment: MITRA Hargrove COMMENTS: A specimen with <=10 WBC is not consistent with inflammation. This specimen will not reflex to a urine culture. Performed By: #### L AB90 #### Newscast Director: LAURA BAUTISTA ([id number]) [facility] ([facility]) [address] [place] [address] SQUAMOUS EPITHELIAL CELLS (#/HPF) IN URINE SEDIMENT 0-2 Normal 3-5 [facility] Comment on above: Performed By: #### L AB90 #### Newscast Director: LAURA BAUTISTA ([id number]) [facility] ([facility]) [address] [place] [address] UROBILINOGEN (MG/DL) IN URINE Normal Normal Normal (0-1) [facility] Comment on above: Performed By: #### L AB90 #### Newscast Director: LAURA BAUTISTA ([id number]) [facility] ([facility]) [address] [place] [address] [place] WBC (LEUKOCYTE) (#/HPF) IN URINE SEDIMENT 0-2 Normal 0-5 [facility] Comment on above: Performed By: #### L AB90 #### Newscast Director: LAURA BAUTISTA ([id number]) [facility] ([facility]) [address] [place] [address] [place] BACTERIA (#/HPF) IN URINE Few Abnormal Negative [facility] Comment on above: Performed By: #### L AB90 #### Newscast Director: LAURA BAUTISTA ([id number]) [facility] ([facility]) [address] [place] [address] [place] BILIRUBIN, TOTAL PRESENCE IN URINE Negative Normal Negative [facility] Comment on above: Performed By: #### L AB90 #### Newscast Director: LAURA BAUTISTA ([id number]) [facility] ([facility]) [address] [place] [address] [place] Clarity (U) Clear Normal Clear [facility] Comment on above: Performed By: #### L AB90 #### Newscast Director: LAURA BAUTISTA ([id number]) [facility] ([facility]) [address] [place] [address] Color (U) Colorless Normal Lt. Yellow [facility] Comment on above: Performed By: #### L AB90 #### Newscast Director: LAURA BAUTISTA ([id number]) [facility] ([facility]) [address] [place] [address] GLUCOSE (MG/DL) IN URINE >1,000 Abnormal Normal (<70) [facility] Comment on above: Performed By: #### L AB90 #### Newscast Director: LAURA BAUTISTA ([id number]) [facility] ([facility]) [address] [place] [address] HEMOGLOBIN PRESENCE IN URINE Negative Normal Negative [facility] Comment on above: Performed By: #### L AB90 #### Newscast Director: LAURA BAUTISTA ([id number]) [facility] ([facility]) [address] [place] [address] Ketones Ql (U) Negative Normal Negative [facility] Comment on above: Performed By: #### L AB90 #### Newscast Director: LAURA BAUTISTA ([id number]) [facility] ([facility]) [address] [place] [address] LEUKOCYTE ESTERASE PRESENCE IN URINE BY TEST STRIP Negative Normal Negative [facility] Comment on above: Performed By: #### L AB90 #### Newscast Director: LAURA BAUTISTA ([id number]) [facility] ([facility]) [address] [place] [address] NITRITE PRESENCE IN URINE Negative Normal Negative [facility] Comment on above: Performed By: #### L AB90 #### Newscast Director: LAURA BAUTISTA ([id number]) [facility] ([facility]) [address] [place] [address] pH (U) 5.5 [pH] Normal 5.0-8.0 [facility] Comment on above: Performed By: #### L AB90 #### Newscast Director: LAURA BAUTISTA ([id number]) [facility] ([facility]) [address] [place] [address] Protein (U) [Mass/Vol] 100 mg/dL Abnormal Negative [facility] Comment on above: Performed By: #### L AB90 #### Newscast Director: LAURA BAUTISTA ([id number]) [facility] ([facility]) [address] [place] [address] RBC (#/HPF) IN URINE SEDIMENT Negative Normal 0-2 [facility] Comment on above: Performed By: #### L AB90 #### Newscast Director: LAURA BAUTISTA ([id number]) [facility] ([facility]) [address] [place] [address] Specific gravity (U) [Rel density] 1.017 Normal 1.005-1.030 [facility] Comment on above: Result Comment: MITRA Hargrove COMMENTS: A specimen with <=10 WBC is not consistent with inflammation. This specimen will not reflex to a urine culture. Performed By: #### L AB90 #### Newscast Director: LAURA BAUTISTA ([id number]) [facility] ([facility]) [address] [place] [address] Specimen volume (U) 12 mL Normal [facility] Comment on above: Performed By: #### L AB90 #### Newscast Director: LAURA BAUTISTA ([id number]) [facility] ([facility]) [address] [place] [address] SQUAMOUS EPITHELIAL CELLS (#/HPF) IN URINE SEDIMENT 3-5 Normal 3-5 [facility] Comment on above: Performed By: #### L AB90 #### Newscast Director: LAURA BAUTISTA ([id number]) [facility] ([facility]) [address] [place] [address] UROBILINOGEN (MG/DL) IN URINE Normal Normal Normal (0-1) [facility] Comment on above: Performed By: #### L AB90 #### Newscast Director: LAURA BAUTISTA ([id number]) [facility] ([facility]) [address] [place] [address] WBC (LEUKOCYTE) (#/HPF) IN URINE SEDIMENT Negative Normal 0-5 [facility] Comment on above: Performed By: #### L AB90 #### Newscast Director: LAUAR BAUTISTA ([id number]) [facility] ([facility]) [address] COMPREHENSIVE METABOLIC PANE Aamir 11-12-2024 Albumin [Mass/Vol] 2.6 g/dL Low 3.4-4.8 [facility] Comment on above: Performed By: #### Jaky AB17, [id number], [id number] ####Newscast Director: LAURA BAUTISTA ([id number])[facility]ITAL[facility]INT[facility]ILL[facility]AM [facility] ([facility])[address] [place] [address] ALP [Catalytic activity/Vol] 58 U/L Normal 40-150 [facility] Comment on above: Performed By: #### Jaky AB17, [id number], [id number] ####Newscast Director: LAURA BAUTISTA ([id number])[facility]ITALRamón V[facility]AS [facility] ([facility])[address] ALT [Catalytic activity/Vol] 10 U/L Normal <30 [facility] Comment on above: Performed By: #### Jaky AB17, [id number], [id number] ####Newscast Director: LAURA BAUTISTA ([id number])[facility]ITAL[facility]ón QUINTANILLASAM [facility] ([facility])[address] Anion gap [Moles/Vol] 8 mmol/L Normal 3-13 [facility] Comment on above: Performed By: #### L AB17, [id number], [id number] ####Newscast Director: LAURA BAUTISTA ([id number])[facility]ITAL[facility]ILLAS[facility] ([facility])[address] [place] [address] [place] AST [Catalytic activity/Vol] 27 U/L Normal <34 [facility] Comment on above: Performed By: #### Jaky AB17, [id number], [id number] ####Newscast Director: LAURA BAUTISTA ([id number])[facility]ITALA SAM [facility] ([facility])[address] [place] [address] [place] Bilirubin [Mass/Vol] 0.2 mg/dL Normal <1.2 [facility] Comment on above: Performed By: #### Jaky AB17, [id number], [id number] ####Newscast Director: LAURA BAUTISTA ([id number])[facility]ITALRamón [facility] ([facility])[address] Calcium [Mass/Vol] 7.5 mg/dL Low 8.8-10.0 [facility] Comment on above: Performed By: #### Jaky CHAUHAN, [id number], [id number] ####Newscast Director: LAURA BAUTISTA ([id number])[facility]ITALRamón [facility] ([facility])[address] [place] [address] [place] Chloride [Moles/Vol] 112 mmol/L High 98-107 [facility] Comment on above: Performed By: #### Jaky HOLT17, [id number], [id number] ####Newscast Director: LAURA BAUTISTA ([id number])[facility]ITAL[facility] ([facility])[address] [place] [address] [place] CO2 [Moles/Vol] 16 mmol/L Low 23-31 [facility] Comment on above: Performed By: #### Jaky CHAUHAN, [id number], [id number] ####Newscast Director: LAURA BAUTISTA ([id number])[facility]ITALRamón [facility] ([facility])[address] [place] [address] [place] Creatinine [Mass/Vol] 3.00 mg/dL High 0.57-1.11 [facility] Comment on above: Performed By: #### Jaky AB17, [id number], [id number] ####Newscast Director: LAURA BAUTISTA ([id number])[facility]ITALRamón [facility] ([facility])[address] [place] [address] [place] GLOMERULAR FILTRATION RATE ML/MIN/1.73 SQ M.PREDICTED 17.1 mL/min/1.73m*2 Low >60.0 [facility] Comment on above: Result Comment: Calc ulation based on the Chronic Kidney Disease Epidemiology Collaboration (CKD-EPI) equation refit without adjustment for race Performed By: #### Jaky HOTL17, [id number], [id number] ####Newscast Director: LAURA BAUTISTA ([id number])[facility]ITALRamón [facility] ([facility])[address] [place] [address] [place] Glucose [Mass/Vol] 523 mg/dL Critically high 82-115 [facility] Comment on above: Performed By: #### Jaky CHAUHAN, [id number], [id number] ####Newscast Director: LAURA BAUTISTA ([id number])[facility]ITALRamón [facility] ([facility])[address] [place] [address] Potassium [Moles/Vol] 5.8 mmol/L High 3.5-5.1 [facility] Comment on above: Result Comment: [facility] potassium values may be up to 0.5 mmol/L lower than serum values. Performed By: #### Jaky CHAUHAN, [id number], [id number] ####Newscast Director: LAURA BAUTISTA ([id number])[facility]OS[facility]ITALRamón [facility] ([facility])[address] [place] [address] [place] Protein [Mass/Vol] 6.1 g/dL Low 6.4-8.3 [facility] Comment on above: Performed By: #### Jaky CHAUHAN, [id number], [id number] ####Newscast Director: LAURA BAUTISTA ([id number])[facility]ITALRamón [facility] ([facility])[address] [place] [address] [place] Sodium [Moles/Vol] 136 mmol/L Normal 136-145 [facility] Comment on above: Performed By: #### Jaky AB17, [id number], [id number] ####Newscast Director: LAURA BAUTISTA ([id number])[facility]ITALRamón [facility] ([facility])[address] [place] [address] [place] Urea nitrogen [Mass/Vol] 74 mg/dL High 9- [facility] Comment on above: Performed By: #### L AB17, [id number], [id number] ####Newscast Director: LAURA BAUTISTA ([id number])[facility]ALSAMGREG[facility] ([facility])[address] [place] [address] ECG 12-LEADon 11-12-2024 ECG 12-LEAD IMPRESSION: Sinus rhythm Low voltage, precordial leads Consider anterior infarct Compared to ECG 10/17/24 No significant change Electronically Signed On 11-12-2024 04:08:27 EDT by Grzegorz Guillen [facility] ED Nursing Noteon 11-12-2024 ED Nursing Note Re-adjusted pt in be d, pt states feels a little better. Pt updated on ETA of squad. Call light within reach, no other needs at this time. Normal [facility] ED Nursing Note Report called to Iesha URBNAO at [facility] Normal [facility] ED Nursing Note Attempted report, on hold for 10min without a nurse answering phone. Will call back. Normal [facility] HEMOGLOBIN A1Con 11-12-2024 Glucose [Mass/Vol] 212 mg/dL Normal [facility] Comment on above: Result Comment: MITRA Hargrove COMMENTS: HbA1c values of 5.7-6.4 percent indicate an increased risk for developing diabetes mellitus. HbA1c values greater than or equal to 6.5 percent are diagnostic of diabetes mellitus. For diagnosis of diabetes in individuals without unequivocal hyperglycemia, results should be confirmed by repeat testing. Performed By: #### L AB90 #### [employer] Director: LAURA BAUTISTA ([phone]) [facility] ([facility]) [address] HEMOGLOBIN A1C 9.0 %HbA1C High <5.7 [facility] Comment on above: Result Comment: Norm al less than 5.7% Prediabetes 5.7% to 6.4% Diabetes 6.5% or higher --HgbA1C levels may not be accurate in patients who have renal disease, received recent blood transfusions, are anemic, or who have dyshemoglobinemia. Performed By: #### L AB90 #### [employer] Director: LAURA BAUTISTA ([id number]) [facility] ([facility]) [address] [place] [address] [place] HIGH SENSITIVITY TROPONIN, S ERIAL BASELINEon 11-12-2024 TROPONIN HS SERIAL BASELINE 7 ng/L Normal <=14 [facility] Comment on above: Result Comment: In i ndividuals presenting with symptoms > 2h, a baseline troponin <= 5 ng/L suggests acute cardiac injury is unlikely and further serial testing is generally not indicated. Performed By: #### L [id number] #### Newscast Director: LAURA BAUTISTA ([id number]) [facility] ([facility] [address] [place] [address] [place] TROPONIN HS SERIAL BASELINE 4 ng/L Normal <=14 [facility] Comment on above: Result Comment: In i ndividuals presenting with symptoms > 2h, a baseline troponin <= 5 ng/L suggests acute cardiac injury is unlikely and further serial testing is generally not indicated. Performed By: #### L [id number], [id number], [id number] ####Newscast Director: LAURA BAUTISTA ([id number])[facility] [place] [address] HIGH SENSITIVITY TROPONIN, S ERIAL, SECOND TESTon 11-12-2024 2H TROPONIN HS (SERIAL 2ND TROPONIN) 6 ng/L Normal <=14 [facility] Comment on above: Result Comment: Risi ng or falling troponin delta below 2 ng/L as compared to baseline value suggests that acute cardiac injury is unlikely. Performed By: #### L [id number] #### Newscast Director: LAURA BAUTISTA ([id number]) [facility] ([facility]) [address] [place] [address] [place] MANUAL DIFFERENTIALon 2024 BAND NEUTROPHILS TOTAL PER COUNTED LEUKOCYTES BY MANUAL COUNT 2 Normal [facility] Comment on above: Performed By: #### L [id number] #### Newscast Director: LAURA BAUTISTA ([id number]) [facility] ([facility]) [address] [place] [address] BANDS 0.2 10*3/uL High <=0.0 [facility] Comment on above: Performed By: #### L [id number] #### Newscast Director: LAURA BAUTISTA ([id number]) [facility] ([facility]) [address] [place] [address] [place] BASOPHILS (10*3/UL) IN BLOOD BY MANUAL COUNT 0.4 10*3/uL High 0.0-0.2 [facility] Comment on above: Performed By: #### L [id number] #### Newscast Director: LAURA BAUTISTA ([id number]) [facility] ([facility]) [address] [place] [address] [place] BASOPHILS TOTAL PER COUNTED LEUKOCYTES BY MANUAL COUNT 3 Normal [facility] Comment on above: Performed By: #### L [id number] #### Newscast Director: LAURA BAUTISTA ([id number]) [facility] ([facility]) [address] [place] [address] [place] BASOPHILS/100 LEUKOCYTES IN BLOOD BY MANUAL COUNT 3 % High 0-2 [facility] Comment on above: Performed By: #### L [id number] #### Newscast Director: LAURA BAUTISTA ([id number]) [facility] ([facility]) [address] [place] [address] [place] CELLS COUNTED TOTAL (#) IN BLOOD 100 Normal [facility] Comment on above: Performed By: #### L [id number] #### Newscast Director: LAURA BAUTISTA ([id number]) [facility] ([facility]) [address] [place] [address] DIFFERENTIAL METHOD Manual differential performed Normal [facility] Comment on above: Performed By: #### L [id number] #### Newscast Director: LAURA BAUTISTA ([id number]) [facility] ([facility]) [address] [place] [address] [place] EOSINOPHILS (10*3/UL) IN BLOOD BY MANUAL COUNT 1.5 10*3/uL High 0.0-0.5 [facility] Comment on above: Performed By: #### L [id number] #### Newscast Director: LAURA BAUTISTA ([id number]) [facility] ([facility]) [address] [place] [address] [place] EOSINOPHILS TOTAL PER COUNTED LEUKOCYTES BY MANUAL COUNT 13 High 0-1 [facility] Comment on above: Performed By: #### L [id number] #### Newscast Director: LAURA BAUTISTA ([id number]) [facility] ([facility]) [address] [place] [address] [place] EOSINOPHILS/100 LEUKOCYTES IN BLOOD BY MANUAL COUNT 13 % High 0-6 [facility] Comment on above: Performed By: #### L [id number] #### Newscast Director: LAURA BAUTISTA ([id number]) [facility] ([facility]) [address] [place] [address] [place] LEUKOCYTE MORPHOLOGY FINDING IN BLOOD Normal Normal [facility] Comment on above: Performed By: #### L [id number] #### Newscast Director: LAURA BAUTISTA ([id number]) [facility]) [address] [place] [address] [place] LEUKOCYTES (10*3/UL) NUCLEATED ERYTHROCYTE ADJUST 11.7 10*3/uL High 3.6-10.7 [facility] Comment on above: Performed By: #### L [id number] #### Newscast Director: LAURA BAUTISTA ([id number]) [facility] ([facility]) [address] [place] [address] [place] LYMPHOCYTES (10*3/UL) IN BLOOD BY MANUAL COUNT 3.0 10*3/uL Normal 1.0-4.3 [facility] Comment on above: Performed By: #### L [id number] #### Newscast Director: LAURA BAUTISTA ([id number]) [facility] ([facility]) [address] [place] [address] [place] LYMPHOCYTES TOTAL PER COUNTED LEUKOCYTES BY MANUAL COUNT 26 Normal [facility] Comment on above: Performed By: #### L [id number] #### Newscast Director: LAURA BAUTISTA ([id number]) [facility] ([facility]) [address] [place] [address] [place] LYMPHOCYTES/100 LEUKOCYTES IN BLOOD BY MANUAL COUNT 26 % Normal 15-45 [facility] Comment on above: Performed By: #### L [id number] #### Newscast Director: LAURA BAUTISTA ([id number]) [facility] ([facility]) [address] [place] [address] [place] MONOCYTES (10*3/UL) IN BLOOD BY MANUAL COUNT 0.6 10*3/uL Normal 0.0-0.9 [facility] Comment on above: Performed By: #### L [id number] #### Newscast Director: LAURA BAUTISTA ([id number]) [facility] ([facility]) [address] [place] [address] [place] MONOCYTES TOTAL PER COUNTED LEUKOCYTES BY MANUAL COUNT 5 Normal [facility] Comment on above: Performed By: #### L [id number] #### Newscast Director: LAURA BAUTISTA ([id number]) [facility] ([facility]) [address] [place] [address] [place] MONOCYTES/100 LEUKOCYTES IN BLOOD BY MANUAL COUNT 5 % Normal 5-13 [facility] Comment on above: Performed By: #### L [id number] #### Newscast Director: LAURA BAUTISTA ([id number]) [facility] ([facility]) [address] [place] [address] [place] NEUTROPHILS (SEGS+BANDS) (10*3/UL) BY MANUAL COUNT 6.2 10*3/uL Normal 1.8-7.0 [facility] Comment on above: Performed By: #### L [id number] #### Newscast Director: LAURA BAUTISTA ([id number]) [facility] ([facility]) [address] [place] [address] [place] NEUTROPHILS BAND FORM/100 LEUKOCYTES IN BLOOD BY MANUAL COUNT 2 % High <=0 [facility] Comment on above: Performed By: #### L [id number] #### Newscast Director: LAURA BAUTISTA ([id number]) [facility] ([facility]) [address] [place] [address] [place] NEUTROPHILS TOTAL PER COUNTED LEUKOCYTES BY MANUAL COUNT 51 Normal [facility] Comment on above: Performed By: #### L [id number] #### Newscast Director: LAURA BAUTISTA ([id number]) [facility] ([facility]) [address] [place] [address] [place] PLATELET MORPHOLOGY IN BLOOD Normal Normal [facility] Comment on above: Performed By: #### L [id number] #### Newscast Director: LAURA [id number]) [facility] ([facility]) [address] [place] [address] RBC MORPHOLOGY IN BLOOD Normal Normal [facility] Comment on above: Performed By: #### L [id number] #### Newscast Director: LAURA BAUTISTA ([id number]) [facility] ([facility]) [address] [place] [address] SEGEMENTED NEUTROPHILS/100 LEUKOCYTES BY MANUAL COUNT 51 % Normal 38-82 [facility] Comment on above: Performed By: #### L [id number] #### Newscast Director: LAURA BAUTISTA ([id number]) [facility] ([facility]) [address] [place] [address] SEGMENTED NEUTROPHILS (10*3/UL)IN BLOOD BY MANUAL COUNT 6.2 10*3/uL Normal 1.8-7.5 [facility] Comment on above: Performed By: #### L [id number] #### Newscast Director: LAURA BAUTISTA ([id number]) [facility] ([facility]) [address] [place] [address] Nursing Noteon 11-12-2024 Nursing Note Pts facility called again regarding ACP docs. Informed this nurse that there are no documents to fax and patient was a full code. Provider made aware of this conversation. [facility] Nursing Note Continuity Editor spoke with nurse from pt's facility, requesting ACP docs to be faxed over and fax number provided. Received verbal consent from pt to contact legal guardian in regards to guardianship documentation. Spoke with pt's legal guardian Gail on the phone, stated she'd be able to fax over documents tomorrow 11/13. Fax number provided. [facility] Progress Noteon 11-12-2024 Progress Note ADVANCED CARE PLANMAYURI DAVID Alvares Jonathan : 1960 Primary Care Physician: Lex Roca MD The patient and/or family/surrogate voluntarily agreed to participate in ACP services. Patient?s cognitive capacity: AAO 2-3, patient has capacity Code Status: [x] [FULL CODE - Continue all advanced life support: CPR,intubation,invasiv e procedures](confirmed with facility) [_] [DNR-CCA - DO NOT do CPR, intubation] [_] [DNR-NURSE PRN - Comfort care only] [_] DNR form [was/was not] signed Summary of discussion: The patient health care POA/ surrogate is the following: GAIL (legal guardian) . I answered all the patient/family questions that I could within the range and scope of the current medical situation. We discussed the medical conditions, risks, benefits, outcomes, and goals of care at this time for the patient's medical issues at hand in the face of the patient's chronic issues and current presentation. Total time spent: 10 minutes were spent discussing the patient's resuscitation status, advance care planning, and end of life care, with patient and/or family/surrogate. Jo Hardy, Acute [facility] 11/12/2024, 10:39 AM Normal [facility] UNCONFIRMED DRUG SCREENon Amphetamines Ql (U) Negative Normal Negative [facility] Comment on above: Performed By: #### L [id number] #### Newscast Director: LAURA BAUTISTA ([id number]) [facility] ([facility]) [address] [place] [address] BARBITURATES Negative Normal Negative [facility] Comment on above: Performed By: #### L [id number] #### Newscast Director: LAURA BAUTISTA ([id number]) [facility] ([facility]) [address] [place] [address] Benzodiazepines Ql (U) Negative Normal Negative [facility] Comment on above: Performed By: #### L [id number] #### Newscast Director: LAURA BAUTISTA ([id number]) [facility] ([facility]) [address] [place] [address] Cocaine Ql (U) Negative Normal Negative [facility] Comment on above: Performed By: #### L [id number] #### Newscast Director: LAURA BAUTISTA ([id number]) [facility] ([facility]) [address] [place] [address] [place] Methadone Ql (U) Negative Normal Negative [facility] Comment on above: Performed By: #### L [id number] #### Newscast Director: LAURA BAUTISTA ([id number]) [facility] ([facility]) [address] [place] [address] Opiates Ql (U) Negative Normal Negative [facility] Comment on above: Performed By: #### L [id number] #### Newscast Director: LAURA BAUTISTA ([id number]) [facility] ([facility]) [address] [place] [address] OXYCODONE/OXYMORPHONE Negative Normal Negative [facility] Comment on above: Performed By: #### L [id number] #### Newscast Director: LAURA BAUTISTA ([id number]) [facility] ([facility]) [address] [place] [address] PCP Negative Normal Negative [facility] Comment on above: Result Comment: MITRA R COMMENTS: The expected value for the drugs listed above is Negative. The following drugs or drug groups have been screened for by Immunoassay at the following thresholds: Amphetamine class(1000 ng/mL) Barbiturates(200 ng/mL Benzodiazepines(200 ng/mL) Cocaine(300 ng/mL) Methadone(300 ng/mL) Opiates(300 ng/mL) Oxycodone(100 ng/mL) PCP(25 ng/mL) POSITIVE results are NOT confirmed by a more specific alternative method unless requested. If confirmation is needed, request confirmation under separate order. NOTE: These results are for medical treatment only. Analysis performed using non-forensic procedures. Performed By: #### L [id number] #### Newscast Director: LAURA JANIERAZ ([id number]) [facility] ([facility]) [address] [place] [address] ED Nursing Noteon 11-11-2024 ED Nursing Note The patient ambulate d from cot to bed. She was brought in by ems for elevated BS of 555. The patient stated upon arrival she was having shortness of breath and chest pain and neck pain. She stated she did not want any more medication. Blood glucose 499 obtained and EKG obtained during triage. Normal [facility] ED Provider Noteon ED Provider Note Emergency Department Encounter [facility] ED Patient: Cinthya Castillo : 1960 Date of Evaluation: 11/11/2024 ED Provider: Grzegorz Guillen DO Chief Complaint Chief Complaint Patient presents with Hyperglycemia MAURA Castillo is a 63 y.o. female who presents to the emergency department complaining of Hyperglycemia, chest pain. Patient explains that tonight she started to feel funny. She had elevated blood sugar. She had some chest discomfort. She also felt short of breath. She called 911 on her own from her nursing facility which was a surprise to her nursing staff. Was brought to the emergency department for evaluation. Additional history obtained from : n/a Barriers [...] pain SKIN: rash, lesions, wound Past History Medical History[1] Surgical History[2] Social History[3] I have reviewed the history above as provided by nursing notes. Medications/Allergies Previous Medications ASPIRIN 81 MG EC TABLET Take 81 mg by mouth daily. ATORVASTATIN (LIPITOR) 20 MG TABLET Take 20 mg by mouth daily. DULAGLUTIDE (TRULICITY) 3 MG/0.5ML SOLUTION PEN-INJECTOR Inject [...] TABLET Take 1 tablet by mouth daily. Allergies[4] I have reviewed the history above as provided by nursing notes. Physical Exam ED Triage Vitals [11/11/24 2353] Temp Heart Rate Resp BP 36.8 ?C (98.2 ?F) 99 16 (!) 186/80 SpO2 Temp Source Heart Rate Source Patient Position 93 % Oral -- Sitting BP Location FiO2 (%) Right arm -- GENERAL: The patient appears nourished and normally developed. Vital signs as documented. Patient appears very comfortable, laughing. EYES: PERRL. No scleral icterus or orbital trauma noted. HEENT: Mucous membranes moist. Nares patent without copious rhinorrhea. LUNGS: Lungs are clear to auscultation, without any respiratory distress. CARDIAC: Rhythm is regular. No murmur appreciated ABDOMEN: Nontender, soft, with no obvious masses, and no peritoneal signs. EXTREMITIES: Non edematous, with no obvious deformities. SKIN: Chronic skin changes of the left lower extremity, improved from previous exam. Good color, with no significant rashes. No pallor. NEURO: No obvious neurological deficits, normal sensation and strength bilaterally. Diagnostics Labs: Results for orders placed or performed during the hospital encounter of 11/11/24 POCT glucose meter Collection Time: 11/11/24 11:54 PM Result Value Ref Range Glucose >450 (H) 70 - 100 mg/dL ECG 12 lead (Now) Collection Time: 11/12/24 12:03 AM Result Value Ref Range Heart Rate 85 bpm QRSD Interval 75 ms QT Interval 359 ms QTC Interval 427 ms P [place] 69 degrees QRS [place] -14 degrees T Wave [place] 42 degrees RI Interval 155 ms CBC auto differential Collection Time: 11/12/24 12:08 AM Result Value Ref Range Auto WBC 11.7 (H) 3.6 - 10.7 10*3/uL RBC 3.43 (L) 3.80 - 5.20 10*6/uL Hemoglobin 10.1 (L) 11.7 - 16.0 g/dL Hematocrit 30.1 (L) 35.0 - 47.0 % MCV 87.8 77.0 - 99.0 fL MCH 29.4 26.0 - 34.0 pg MCHC 33.6 30.5 - 36.0 % RDW 13.8 11.5 - 15.0 % Platelets 323 140 - 440 10*3/uL MPV 9.7 9.0 - 12.7 fL nRBC 0.0 0.0 - 2.0 /100 WBCs Serial Troponin, High Sensitivity Collection Time: 11/12/24 12:08 AM Result Value Ref Range Troponin HS Serial Baseline 4 <=14 ng/L Beta Hydroxybutyrate Collection Time: 11/12/24 12:08 AM Result Value Ref Range BETA HYDROXYBUTYRATE 0.6 <=2.8 mg/dL Blood gas, venous ([place]) Collection Time: 11/12/24 12:08 AM Result Value Ref Range pH 7.292 (L) 7.310 - 7.410 pCO2 34 (L) 40 - 55 mm(Hg) pO2 43 mm(Hg) BASE EXCESS -10.0 (L) -3.0 - 3.0 mmol/L HCO3 16.5 (L) 23.0 - 27.0 mmol/L TCO2 18.0 (L) 24.0 - 28.0 (more content not included)... Normal [facility] ED Nursing Noteon 11-10-2024 ED Nursing Note The patient was brought in via ambulance from [facility]. She stated she is having increased pain 10/10 in her neck and back. Pain is a chronic pain. She denies any injury. The patient is observed laughing and giggling at bedside. Normal [facility] ED Provider Noteon ED Provider Note EMERGENCY DEPARTMENT ENCOUNTER Pt Name: Cinthya Castillo Birthdate 1960 Date of evaluation: 11/10/2024 ED Provider: Cinthya Lopez DO CHIEF COMPLAINT Chief Complaint Patient presents with Neck Pain HISTORY OF PRESENT ILLNESS (Location/Symptom, Timing/Onset, Context/Setting, Quality, Duration, Modifying Factors, Severity) Note limiting factors. I wore appropriate PPE for the entirety of this encounter. HPI Cinthya Castillo is a 63 y.o. who presents to the emergency department via EMS from [facility] for chronic neck and back pain without change. Patient tried Tylenol prior to arrival is not prescribed anything long-term. She states the Tylenol is not controlling her pain so she came in for pain control. She denies any injury fall or other symptoms including new incontinence saddle anesthesia weakness numbness tingling. Patient laughing and giggling at bedside. Patient stating that she did not want to be at her facility and likes to be in the ED. Nursing Notes were reviewed. Limitations to history: Outside historians: REVIEW OF SYSTEMS Review of Systems Pertinent positives and negatives as per HPI PAST MEDICAL HISTORY Medical History[1] SURGICAL HISTORY Surgical History[2] CURRENT MEDICATIONS Previous Medications ASPIRIN 81 MG EC TABLET Take 81 mg by mouth daily. ATORVASTATIN (LIPITOR) 20 MG TABLET Take 20 mg by mouth daily. DULAGLUTIDE (TRULICITY) 3 MG/0.5ML SOLUTION PEN-INJECTOR Inject [...] mouth daily. ALLERGIES Penicillins FAMILY HISTORY Family History[3] SOCIAL HISTORY Social History[4] PHYSICAL EXAM ED Triage Vitals Temp Heart Rate Resp BP 11/10/24220611/10/24220511/10/24220611/10/242206 36.4 ?C (97.5 ?F) 89 16 (!) 178/88 SpO2 Temp Source Heart Rate Source Patient Position 11/10/24220511/10/242206 -- 11/10/242205 98 % Oral Sitting BP Location FiO2 (%) 11/10/242205 -- Right arm Physical Exam Vitals and nursing note reviewed. Constitutional: General: She is not in acute distress. Appearance: She is not toxic-appearing. HENT: Head: Normocephalic and atraumatic. Mouth/Throat: Pharynx: Oropharynx is clear. Eyes: Conjunctiva/sclera: Conjunctivae normal. Pupils: Pupils are equal, round, and reactive to light. Cardiovascular: Rate and Rhythm: Normal rate and regular rhythm. Pulmonary: Effort: Pulmonary effort is normal. No respiratory distress. Breath sounds: Normal breath sounds. Abdominal: Palpations: Abdomen is soft. Tenderness: There is no abdominal tenderness. Musculoskeletal: General: No tenderness. Normal range of motion. Comments: No bony tenderness or crepitus neurovascularly intact all 4 extremities intact strength Skin: General: Skin is warm and dry. Neurological: General: No focal deficit present. Mental Status: She is alert. DIAGNOSTIC RESULTS RADIOLOGY (Per Emergency Physician): Interpretation per the Radiologist below, if available at the time of this note: No orders to display LABS: Labs Reviewed - No data to display All other labs were within normal range or not returned as of this dictation. EMERGENCY DEPARTMENT COURSE and DIFFERENTIAL DIAGNOSIS/MDM: Vitals: Vitals: 11/10/24 2206 11/10/242206 BP: (!) 178/88 BP Location: Right arm Pulse: 89 Resp: 16 Temp: 36.4 ?C (97.5 ?F) TempSrc: Oral SpO2: 98% Weight: (!) 141 kg (310 lb) Height: 1.676 m (5' 6") Medications naproxen (Naprosyn) tablet 500 mg (500 mg Oral Given 11/10/242244) 63-year-old female presented to the ED for medication for her chronic neck and back pain without change. Patient reportedly tried Tylenol prior to arrival and it did not help so she came in. Exam as above unremarkable no injury, neurovascular intact distally all 4 extremities normal strength. No red flag signs or symptoms. No indication for blood work or imaging. Suspect element of secondary gain as patient did not want to be at her SNF currently and likes to visit us in the ED per her. Naproxen for pain. Patient stable for discharge back to SNF with supportive care and OTC medications return precautions outpatient follow-up for further issues. SCREENINGS PROCEDURE (more content not included)... Normal [facility] ECG 12-LEADon 10-18-2024 ECG 12-LEAD IMPRESSION: Sinus rhythm Low voltage, precordial leads Consider anterior infarct Compared to ECG 07/12/24 No significant change Electronically Signed On 10-18-2024 02:36:43 EDT by Grzegorz Guillen Normal [facility] CBC WITH AUTO DIFFERENTIALon 10-17-2024 Basophils (Bld) [#/Vol] 0.1 10*3/uL Normal 0.0-0.2 [facility] Comment on above: Performed By: #### L [id number] #### Newscast Director: LAURA BAUTISTA ([id number]) [facility]) [address] [place] [address] Basophils/100 WBC (Bld) 0.6 % Normal 0.0-2.0 [facility] Comment on above: Performed By: #### L [id number] #### Newscast Director: LAURA BAUTISTA ([id number]) [facility]) [address] [place] [address] Eosinophils (Bld) [#/Vol] 0.3 10*3/uL Normal 0.0-0.5 [facility] Comment on above: Performed By: #### L [id number] #### Newscast Director: LAURA BAUTISTA ([id number]) [facility]) [address] [place] [address] Eosinophils/100 WBC (Bld) 3.1 % Normal 0.0-6.0 [facility] Comment on above: Performed By: #### L [id number] #### Newscast Director: LAURA BAUTISTA ([id number]) [facility]) [address] [place] [address] Erythrocyte distribution width (RBC) [Ratio] 12.7 % Normal 11.5-15.0 [facility] Comment on above: Performed By: #### L [id number] #### Newscast Director: LAURA BAUTISTA ([id number]) [facility]) [address] [place] [address] Hematocrit (Bld) [Volume fraction] 31.0 % Low 35.0-47.0 [facility] Comment on above: Performed By: #### L [id number] #### Newscast Director: LAURA BAUTISTA ([id number]) [facility]) [address] [place] [address] Hemoglobin (Bld) [Mass/Vol] 10.4 g/dL Low 11.7-16.0 [facility] Comment on above: Performed By: #### L [id number] #### Newscast Director: LAURA BAUTISTA ([id number]) [facility] ([facility]) [address] [place] [address] IMMATURE GRANS % 0.5 % Normal 0.0-2.0 [facility] Comment on above: Performed By: #### L [id number] #### Newscast Director: LAURA BAUTISTA ([id number]) [facility]) [address] [place] [address] IMMATURE GRANS ABSOLUTE 0.1 10*3/uL High <0.1 [facility] Comment on above: Performed By: #### L [id number] #### Newscast Director: LAURA BAUTISTA ([id number]) [facility]) [address] [place] [address] Lymphocytes (Bld) [#/Vol] 1.6 10*3/uL Normal 1.0-4.3 [facility] Comment on above: Performed By: #### L [id number] #### Newscast Director: LAURA BAUTISTA ([id number]) [facility]) [address] [place] [address] [place] Lymphocytes/100 WBC (Bld) 16.3 % Normal 15.0-45.0 [facility] Comment on above: Performed By: #### L [id number] #### Newscast Director: LAURA BAUTISTA ([id number]) [facility]) [address] [place] [address] MCH (RBC) [Entitic mass] 28.9 pg Normal 26.0-34.0 [facility] Comment on above: Performed By: #### L [id number] #### Newscast Director: LAURA BAUTISTA ([id number]) [facility] ([facility]) [address] [place] [address] MCHC 33.5 % Normal 30.5-36.0 [facility] Comment on above: Performed By: #### L [id number] #### Newscast Director: LAURA BAUTISTA ([id number]) [facility] ([facility]) [address] [place] [address] MCV (RBC) [Entitic vol] 86.1 fL Normal 77.0-99.0 [facility] Comment on above: Performed By: #### L [id number] #### Newscast Director: LAURA BAUTISTA ([id number]) [facility] ([facility]) [address] [place] [address] Monocytes (Bld) [#/Vol] 0.9 10*3/uL Normal 0.0-0.9 [facility] Comment on above: Performed By: #### L [id number] #### Newscast Director: LAURA BAUTISTA ([id number]) [facility] ([facility]) [address] [place] [address] Monocytes/100 WBC (Bld) 8.9 % Normal 5.0-13.0 [facility] Comment on above: Performed By: #### L AB90 #### Newscast Director: LAURA BAUTISTA ([id number]) [facility] ([facility]) [address] [place] [address] NEUTROPHILS ABSOLUTE 6.8 10*3/uL Normal 1.8-7.5 [facility] Comment on above: Performed By: #### L AB90 #### Newscast Director: LAURA BAUTISTA ([id number]) [facility] ([facility]) [address] [place] [address] Neutrophils/100 WBC (Bld) 70.6 % Normal 38.0-82.0 [facility] Comment on above: Performed By: #### L AB90 #### Newscast Director: LAURA BAUTISTA ([id number]) [facility] ([facility]) [address] [place] [address] NRBC 0.0 /100 WBCs Normal 0.0-2.0 [facility] Comment on above: Performed By: #### L AB90 #### Newscast Director: LAURA BAUTISTA ([id number]) [facility] ([facility]) [address] [place] [address] Platelet mean volume (Bld) [Entitic vol] 9.5 fL Normal 9.0-12.7 [facility] Comment on above: Result Comment: MPV is a calculated measurement using platelet volume ratio Performed By: #### L AB90 #### Newscast Director: LAURA BAUTISTA ([id number]) [facility] ([facility]) [address] [place] [address] Platelets (Bld) [#/Vol] 305 10*3/uL Normal 140-440 [facility] Comment on above: Performed By: #### L AB90 #### Newscast Director: LAURA BAUTISTA ([id number]) [facility] ([facility]) [address] [place] [address] RBC (Bld) [#/Vol] 3.60 10*6/uL Low 3.80-5.20 [facility] Comment on above: Performed By: #### L AB90 #### Newscast Director: LAURA BAUTISTA ([id number]) [facility] ([facility]) [address] [place] [address] WBC (Bld) [#/Vol] 9.6 10*3/uL Normal 3.6-10.7 [facility] Comment on above: Performed By: #### L AB90 #### Newscast Director: LAURA BAUTISTA ([id number]) [facility] ([facility]) [address] [place] [address] COMPREHENSIVE METABOLIC PANE Aamir 10-17-2024 Albumin [Mass/Vol] 2.9 g/dL Low 3.4-4.8 [facility] Comment on above: Performed By: #### L [id number], [id number] ####Newscast Director: LAURA BAUTISTA ([id number])[facility] (SWRL[facility])[address] [place] [address] [place] ALP [Catalytic activity/Vol] 75 U/L Normal 40-150 [facility] Comment on above: Performed By: #### L [id number], [id number] ####Newscast Director: LAURA BAUTISTA ([id number])[facility]ITALRamón VARGAS [facility] ([place])[address] [place] [address] [place] ALT [Catalytic activity/Vol] 9 U/L Normal <30 [facility] Comment on above: Performed By: #### L [id number], [id number] ####Newscast Director: LAURA BAUTISTA ([id number])[facility]ITALRamón VARG[facility] [place] ([place])[address] Anion gap [Moles/Vol] 12 mmol/L Normal 3-13 [facility] Comment on above: Performed By: #### L [id number], [id number] ####Newscast Director: LAURA BAUTISTA ([id number])[facility]ITALRamón [facility]ARG[facility] [place] ([place])[address] [place] [address] [place] AST [Catalytic activity/Vol] 24 U/L Normal <34 [facility] Comment on above: Performed By: #### L [id number], [id number] ####Newscast Director: LAURA BAUTISTA ([id number])[facility]ITALRamón VARG[facility] [place] ([place])[address] Bilirubin [Mass/Vol] 0.3 mg/dL Normal <1.2 [facility] Comment on above: Performed By: #### L [id number], [id number] ####Newscast Director: LAURA BAUTISTA ([id number])[facility]ITALRamón [facility]ARG[facility] [place] ([place])[address] [place] [address] [place] Calcium [Mass/Vol] 9.0 mg/dL Normal 8.8-10.0 [facility] Comment on above: Performed By: #### L [id number], [id number] ####Newscast Director: LAURA BAUTISTA ([id number])[facility] [place] ([place])[address] [place] [address] [place] Chloride [Moles/Vol] 108 mmol/L High 98-107 [facility] Comment on above: Performed By: #### L [id number], [id number] ####Newscast Director: LAURA BAUTISTA ([id number])[facility]OSPITALRamón QUINTANILLASAM RITTMAN ([place])[address] [place] [address] [place] CO2 [Moles/Vol] 19 mmol/L Low 23-31 [facility] Comment on above: Performed By: #### L [id number], [id number] ####Newscast Director: LAURA BAUTISTA ([id number])[facility]OS[facility]ITALRamón QUINTANILLASAM R[place] ([place])[address] [place] [address] [place] Creatinine [Mass/Vol] 2.20 mg/dL High 0.57-1.11 [facility] Comment on above: Performed By: #### L [id number], [id number] ####Newscast Director: LAURA BAUTISTA ([id number])[facility]ITALRamón VARG[facility] [place] ([place])[address] [place] [address] [place] GLOMERULAR FILTRATION RATE ML/MIN/1.73 SQ M.PREDICTED 24.8 mL/min/1.73m*2 Low >60.0 [facility] Comment on above: Result Comment: Calc ulation based on the Chronic Kidney Disease Epidemiology Collaboration (CKD-EPI) equation refit without adjustment for race Performed By: #### L [id number], [id number] ####Newscast Director: LAURA BAUTISTA ([id number])[facility]ITALRamón VARGAS [place] ([place])[address] [place] [address] [place] Glucose [Mass/Vol] 264 mg/dL High 82-115 [facility] Comment on above: Performed By: #### L [id number], LAB17 ####Newscast Director: LAURA BAUTISTA ([id number])[facility] [place] ([place])[address] [place] [address] [place] Potassium [Moles/Vol] 4.8 mmol/L Normal 3.5-5.1 [facility] Comment on above: Result Comment: [facility] potassium values may be up to 0.5 mmol/L lower than serum values. Performed By: #### L [id number], [id number] ####Newscast Director: LAURA BAUTISTA ([id number])[facility] [place] (SWRL[place])[address] [place] [address] Protein [Mass/Vol] 6.7 g/dL Normal 6.4-8.3 [facility] Comment on above: Performed By: #### L [id number], [id number] ####Newscast Director: LAURA BAUTISTA ([id number])[facility] [place] ([place])[address] [place] [address] Sodium [Moles/Vol] 139 mmol/L Normal 136-145 [facility] Comment on above: Performed By: #### L [id number], LAB17 ####Newscast Director: LAURA BAUTISTA ([id number])[facility] [place] ([place])[address] [place] [address] Urea nitrogen [Mass/Vol] 49 mg/dL High 9-23 [facility] Comment on above: Performed By: #### L [id number], LAB17 ####Newscast Director: LAURA BAUTISTA ([id number])[facility]ALS[facility] ([facility])[address] [place] [address] ED Nursing Noteon 10-17-2024 ED Nursing Note Pt to ER by [facility] from [facility] for neck and back pain. Per EMS pt has hx of chronic neck and back pain. Pt states she has never had this before. Pt able to ambulate to bed with assist of EMS. Alert and oriented to person and place. Not to date. No paperwork provided by [facility], unsure of pt's mental status. Pt cheerful and laughing and joking with staff on arrival. Moving all extremities. Skin warm and dry. Respirations even and unlabored. Side rails up x 2 for safety. Call light in reach. Pt watching TV Normal [facility] ED Provider Noteon ED Provider Note Emergency Department Encounter [facility] ED Patient: Cinthya Castillo : 1960 Date of Evaluation: 10/17/2024 ED Provider: Grzegorz Guillen DO Chief Complaint Chief Complaint Patient presents with Neck Pain Back Pain No injury [facility] [place] Cinthya Castillo is a 63 y.o. female who presents to the emergency department complaining of left shoulder and neck pain. Patient reports she has had left shoulder neck pain today. She also complains of low back pain, left lower leg pain. Reports a wound in her left leg. When asked about the chronicity of the symptoms, patient initially states that she has them today however it seems that most of the symptoms have been present for some time. Patient does live in a nursing facility. She denies any infectious symptoms. Nu[place] any nausea or vomiting. Additional history obtained from : n/a Barriers [...] pain SKIN: rash, lesions, wound Past History Medical History[1] Surgical History[2] Social History[3] I have reviewed the history above as provided by nursing notes. Medications/Allergies Discharge Medication List as of 10/17/2024 10:54 PM CONTINUE these medications which have NOT CHANGED Details aspirin 81 MG EC tablet Take 81 mg by mouth daily., Historical Med atorvastatin (Lipitor) 20 MG tablet Take 20 mg by mouth daily., Historical Med dulaglutide (Trulicity) 3 MG/0.5ML solution pen-injector Inject 3 mg under the skin 1 (one) time per week., Historical Med escitalopram (Lexapro) 10 MG tablet Take 10 mg by mouth daily., Historical Med fenofibrate micronized (Lofibra) 67 MG capsule Take 67 mg by mouth daily (with breakfast)., Historical Med gabapentin (Neurontin) 400 MG capsule Take 400 mg by mouth 3 times daily., Historical Med hydrALAZINE (Apresoline) 50 MG tablet Take by mouth., Historical Med insulin glargine (Lantus) 100 UNIT/ML injection Inject 60 Units under the skin Nightly., Historical Med levothyroxine (Synthroid, Levoxyl) 75 MCG tablet Take by mouth every morning (before breakfast)., Historical Med metoprolol succinate XL (Toprol-XL) 100 MG 24 hr tablet Take by mouth. Do not crush or chew., Historical Med rOPINIRole (Requip) 0.5 MG tablet Take 0.5 mg by mouth 3 times daily., Historical Med senna-docusate (Roxanne-Colace) 8.6-50 MG tablet Take 1 tablet by mouth daily., Historical Med Allergies[4] I have reviewed the history above as provided by nursing notes. Physical Exam ED Triage Vitals [10/17/24 1903] Temp Heart Rate Resp BP 36.9 ?C (98.5 ?F) 95 18 (!) 169/84 SpO2 Temp Source Heart Rate Source Patient Position 96 % Oral -- Sitting BP Location FiO2 (%) Right arm -- GENERAL: The patient appears nourished and normally developed. Vital signs as documented. EYES: PERRL. No scleral icterus or orbital trauma noted. HEENT: Mucous membranes moist. Nares patent without copious rhinorrhea. LUNGS: Lungs are clear to auscultation, without any respiratory distress. CARDIAC: Rhythm is regular. No murmur appreciated. 2+ radial pulses bilaterally. ABDOMEN: Nontender, soft, with no obvious masses, and no peritoneal signs. EXTREMITIES: Normal range of motion of the left upper extremity. There is no palpable abnormality at the shoulder. She has normal range of motion at the elbow and wrist. Normal sensation to light touch. 2+ radial pulse. There is tenderness to palpation in the left paraspinal musculature of the cervical spine. No midline tenderness. No palpable bony step-off. Non edematous, with no obvious deformities. SKIN: Good color, with no significant rashes. No pallor. NEURO: No obvious neurological deficits, normal sensation and strength bilaterally. Diagnostics Labs: Results for orders placed or performed during the hospital encounter of 10/17/24 ECG 12 lead (Now) Collection Time: 10/17/24 7:43 PM Result Value Ref Range Heart Rate 84 bpm QRSD Interval 75 ms QT Interval 382 ms QTC Interval 453 ms P [place] 19 degrees QRS [place] -13 degrees T Wave [place] 59 degrees RI Interval 146 ms CBC auto differential Collection Time: 10/17/24 7:50 PM Result Value Ref Range Auto WBC 9.6 3.6 - 10.7 10*3/uL RBC 3.60 (L) 3.80 - 5.20 10*6/uL Hemoglobin 10.4 (L) 11.7 - 16.0 g/dL Hematocrit 31.0 (L) 35.0 - 47.0 % MCV 86.1 77.0 - 99.0 fL MCH 28.9 26.0 - 34.0 pg MCHC 33.5 30.5 - 36.0 % RDW 12.7 11.5 - 15.0 % Platelets 305 140 - 440 10*3/uL MPV 9.5 9.0 (more content not included)... Normal [facility] HIGH SENSITIVITY TROPONIN, S ERIAL BASELINEon 10-17-2024 TROPONIN HS SERIAL BASELINE 11 ng/L Normal <=14 [facility] Comment on above: Result Comment: In i ndividuals presenting with symptoms > 2h, a baseline troponin <= 5 ng/L suggests acute cardiac injury is unlikely and further serial testing is generally not indicated. Performed By: #### L [id number], [id number] ####Newscast Director: LAURA BAUTISTA ([id number])[facility] HOSPITALGemin X PharmaceuticalsAN ([employer] ServicesRLAB)[address] [place] [address] HIGH SENSITIVITY TROPONIN, S ERIAL, SECOND TESTon 10-17-2024 2H TROPONIN HS (SERIAL 2ND TROPONIN) 13 ng/L Normal <=14 [facility] Comment on above: Result Comment: Risi ng or falling troponin delta below 2 ng/L as compared to baseline value suggests that acute cardiac injury is unlikely. Performed By: #### L [id number] ####Newscast Director: LAURA BAUTISTA ([id number])[facility] [employer] (SWRLAB)[address] [place] [address] Anion gap in Serum or Plasma Ordered By: Lex Roca on 09-25-2024 Anion gap [Moles/Vol] 9 mmol/L 5-15 [facility] BUN/creatinine ratioOrdered By: Lex Roca on 09-25-2024 Urea nitrogen/Creatinine [Mass ratio] 25.0 mg/mg High 10-20 [facility] Carbon dioxide, total [Moles /volume] in Central venous bloodOrdered By: Lex Roca on 09-25-2024 CO2 [Moles/Vol] 23.8 mmol/L 21.0-32.0 [facility] Chloride assayOrdered By: Sony Roca on 09-25-2024 Chloride [Moles/Vol] 107 mmol/L 98-108 [facility] Glomerular filtration rate ( GFR) estimation/1.73 sq m using serum, plasma, or whole bOrdered By: Lex Roca on 09-25-2024 GFR/1.73 sq M.predicted among non-blacks MDRD (S/P/Bld) [Vol rate/Area] 24 mL/min/{1.73_m2} Low >60 [facility] Comment on above: mL/min/1.73m2 CKD-EP I Creatinine Equation (2020) Hemoglobin A1c percentageOrd ered By: Lex Roca on 09-25-2024 HbA1c (Bld) [Mass fraction] 9.4 % High <5.7 [facility] Comment on above: Normal < 5.7 % Predi abetic 5.7 - 6.4 % Diabetic >or= 6.5 % Please note range changes. Potassium measurement (mass/ volume)Ordered By: Lex Roca on 09-25-2024 Potassium (Unsp spec) [Mass/Vol] 4.6 mmol/L 3.3-5.1 [facility] Serum creatinine measurement (mass/volume)Ordered By: Lex Roca on 09-25-2024 Creatinine [Mass/Vol] 2.23 mg/dL High 0.70-1.20 [facility] Serum glucose measurement (m ass/volume)Ordered By: Lex Roca on 09-25-2024 Glucose [Mass/Vol] 176 mg/dL High 70-99 [facility] Serum or plasma calcium aba urement (mass/volume)Ordered By: Lex Roca on 09-25-2024 Calcium [Mass/Vol] 9.1 mg/dL 7.6-11.0 [facility] Serum or plasma urea nitroge n measurement (mass/volume)Ordered By: Lex Roca on 09-25-2024 Urea nitrogen [Mass/Vol] 56 mg/dL High 4-19 [facility] Sodium levelOrdered By: Iban Roca on 09-25-2024 Sodium [Moles/Vol] 140 mmol/L 133-145 [facility] Anion gap in Serum or Plasma Ordered By: Lex Roca on 09-20-2024 Anion gap [Moles/Vol] 10 mmol/L 5-15 [facility] BUN/creatinine ratioOrdered By: Lex Roca on 09-20-2024 Urea nitrogen/Creatinine [Mass ratio] 20.7 mg/mg High 10-20 [facility] Carbon dioxide, total [Moles /volume] in Central venous bloodOrdered By: Lex Roca on 09-20-2024 CO2 [Moles/Vol] 23.0 mmol/L 21.0-32.0 [facility] Chloride assayOrdered By: Sony Roca on 09-20-2024 Chloride [Moles/Vol] 105 mmol/L 98-108 [facility] Erythrocyte distribution wid th ratioOrdered By: Lex Roca on 09-20-2024 Erythrocyte distribution width (RBC) [Ratio] 12.6 % 11.6-14.6 [facility] Erythrocyte distribution wid th standard deviationOrdered By: Lex Roca on 09-20-2024 Erythrocyte distribution width (RBC) [Ratio] 41.3 fl 35.1-43.9 [facility] Glomerular filtration rate ( GFR) estimation/1.73 sq m using serum, plasma, or whole bOrdered By: Lex Roca on 09-20-2024 GFR/1.73 sq M.predicted among non-blacks MDRD (S/P/Bld) [Vol rate/Area] 26 mL/min/{1.73_m2} Low >60 [facility] Comment on above: mL/min/1.73m2 CKD-EP I Creatinine Equation (2020) Hematocrit Auto (Bld) [Volum e fraction]Ordered By: Lex Roca on 09-20-2024 Hematocrit (Bld) [Volume fraction] 30.0 % Low 37-47 [facility] Hemoglobin A1c percentageOrd ered By: Lex Roca on 09-20-2024 HbA1c (Bld) [Mass fraction] 9.7 % High <5.7 [facility] Comment on above: Normal < 5.7 % Predi abetic 5.7 - 6.4 % Diabetic >or= 6.5 % Please note range changes. Hemoglobin measurementOrdere d By: Lex Roca on 09-20-2024 Hemoglobin (Bld) [Mass/Vol] 9.9 g/dL Low 12.0-15.0 [facility] MCV (mean corpuscular volume ) determinationOrdered By: Lex Roca on 09-20-2024 MCV (RBC) [Entitic vol] 89.3 fL 81-99 [facility] Mean corpuscular hemoglobin (MCH) determinationOrdered By: Lex Roca on 09-20-2024 MCH (RBC) [Entitic mass] 29.5 pg 27.0-32.0 [facility] Mean corpuscular hemoglobin concentration (MCHC) determinationOrdered By: Lex Roca on 09-20-2024 MCHC (RBC) [Mass/Vol] 33.0 g/dL 32-36 [facility] Mean platelet volume determi nationOrdered By: Lex Roca on 09-20-2024 Platelet mean volume (Bld) [Entitic vol] 10.4 fL 6.2-12.0 [facility] Platelet countOrdered By: Sony Roca on 09-20-2024 Platelets (Bld) [#/Vol] 289 10*3/uL 150-450 [facility] Potassium measurement (mass/ volume)Ordered By: Lex Rcoa on 09-20-2024 Potassium (Unsp spec) [Mass/Vol] 5.2 mmol/L High 3.3-5.1 [facility] RBC Auto (Bld) [#/Vol]Ordere d By: Lex Roca on 09-20-2024 RBC (Bld) [#/Vol] 3.36 10*6/uL Low 4.2-5.4 [facility] Serum creatinine measurement (mass/volume)Ordered By: Lex Roca on 09-20-2024 Creatinine [Mass/Vol] 2.12 mg/dL High 0.70-1.20 [facility] Serum glucose measurement (m ass/volume)Ordered By: Lex Roca on 09-20-2024 Glucose [Mass/Vol] 413 mg/dL High 70-99 [facility] Serum or plasma calcium aba urement (mass/volume)Ordered By: Lex Roca on 09-20-2024 Calcium [Mass/Vol] 8.9 mg/dL 7.6-11.0 [facility] Serum or plasma urea nitroge n measurement (mass/volume)Ordered By: Lex Roca on 09-20-2024 Urea nitrogen [Mass/Vol] 44 mg/dL High 4-19 [facility] Sodium levelOrdered By: Iban Roca on 09-20-2024 Sodium [Moles/Vol] 138 mmol/L 133-145 [facility] White blood cell (WBC) count Ordered By: eLx Roca on 09-20-2024 WBC (Bld) [#/Vol] 6.9 10*3/uL 4.4-11.0 [facility] Bilirubin Test strip Ql (U)O rdered By: Lex Roca on 08-16-2024 Bilirubin Ql (U) Negative Negative [facility] Ketones Test strip Ql (U)Ord ered By: Lex Roca on 08-16-2024 Ketones Ql (U) Negative Negative [facility] Microscopic analysis of urin e for red blood cells (RBC)Ordered By: Lex Roca on 08-16-2024 Microscopic analysis of urine for red blood cells (RBC) 0-5 SEEN /hpf 0-5 [facility] Mucus LM Ql (Urine sed)Order ed By: Lex Roca on 08-16-2024 Mucus Ql (Urine sed) 0 SEEN /hpf [facility] Nitrite Test strip Ql (U)Ord ered By: Lex Roca on 08-16-2024 Nitrite Ql (U) Negative Negative [facility] Protein Test strip Ql (U)Ord ered By: Lex Roca on 08-16-2024 Protein Ql (U) 500 mg/dl High Negative [facility] Squamous epithelial cells de tection in urine sediment by light microscopyOrdered By: Lex Roca on 08-16-2024 Epithelial cells.squamous LM Ql (Urine sed) 0-5 SEEN /hpf 5-10 [facility] Urine clarityOrdered By: Tony Roca on 08-16-2024 Clarity (U) Clear Clear [facility] Urine color determinationOrd ered By: Lex Roca on 08-16-2024 Color (U) Yellow Yellow [facility] Urine cultureOrdered By: Tony Roca on 08-16-2024 Bacteria identified Cx Nom (U) Proteus mirabilis Abnormal [facility] Urine glucose detectionOrder ed By: Lex Roca on 08-16-2024 Glucose Ql (U) 250 mg/dl High Normal [facility] Urine leukocyte esterase det ection by dipstickOrdered By: Lex Roca on 08-16-2024 Leukocyte esterase Test strip Ql (U) Negative Negative [facility] Urine pHOrdered By: Lex cooper on 08-16-2024 pH (U) 7.0 [pH] 5.0 - 8.0 [facility] Urine sediment bacteria coun t by microscopy (number/high power field)Ordered By: Lex Roca on 08-16-2024 Bacteria LM.HPF (Urine sed) [#/Area] RARE /hpf None Seen [facility] Urine specific gravity measu rementOrdered By: Lex Roca on 08-16-2024 Specific gravity (U) [Rel density] 1.010 1.002-1.030 [facility] Urine urobilinogen measureme ntOrdered By: Lex Roca on 08-16-2024 Urobilinogen Ql (U) Normal mg/dl Normal [facility] White blood cell countOrdere d By: Lex Roca on 08-16-2024 White blood cell count 0-5 SEEN /hpf 0-5 [facility] Absolute lymphocyte countOrd ered By: Lex Roca on 07-19-2024 Lymphocytes Auto (Unsp spec) [#/Vol] 1.65 10*3/uL 0.83-4.51 [facility] Absolute neutrophil countOrd ered By: Lex Roca on 07-19-2024 Neutrophils (Bld) [#/Vol] 3.7 10*3/uL 2.0-7.7 [facility] Anion gap in Serum or Plasma Ordered By: Lex Roca on 07-19-2024 Anion gap [Moles/Vol] 10 mmol/L 5-15 [facility] Automated lymphocyte count a s percentage of total leukocytesOrdered By: Lex Roca on 07-19-2024 Lymphocytes/100 WBC Auto (Unsp spec) 25.0 % 19-41 [facility] BUN/creatinine ratioOrdered By: Lex Roca on 07-19-2024 Urea nitrogen/Creatinine [Mass ratio] 26.5 mg/mg High 10-20 [facility] Basophil percentageOrdered B y: Lex Roca on 07-19-2024 Basophils/100 WBC (Bld) 1.1 % High 0-1 [facility] Bilirubin Test strip Ql (U)O rdered By: Lex Roca on 07-19-2024 Bilirubin Ql (U) Negative Negative [facility] Carbon dioxide, total [Moles /volume] in Central venous bloodOrdered By: Lex Roca on 07-19-2024 CO2 [Moles/Vol] 22.3 mmol/L 21.0-32.0 [facility] Chloride assayOrdered By: Sony Roca on 07-19-2024 Chloride [Moles/Vol] 107 mmol/L 98-108 [facility] Eosinophil percentageOrdered By: Lex Roca on 07-19-2024 Eosinophils/100 WBC (Bld) 4.7 % 0-5 [facility] Erythrocyte distribution wid th ratioOrdered By: Lex Roca on 07-19-2024 Erythrocyte distribution width (RBC) [Ratio] 12.6 % 11.6-14.6 [facility] Erythrocyte distribution wid th standard deviationOrdered By: Lex Roca on 07-19-2024 Erythrocyte distribution width (RBC) [Ratio] 41.5 fl 35.1-43.9 [facility] Glomerular filtration rate ( GFR) estimation/1.73 sq m using serum, plasma, or whole bOrdered By: Lex Roca on 07-19-2024 GFR/1.73 sq M.predicted among non-blacks MDRD (S/P/Bld) [Vol rate/Area] 31 mL/min/{1.73_m2} Low >60 [facility] Comment on above: mL/min/1.73m2 CKD-EP I Creatinine Equation (2020) Hematocrit Auto (Bld) [Volum e fraction]Ordered By: Lex Roca on 07-19-2024 Hematocrit (Bld) [Volume fraction] 32.5 % Low 37-47 [facility] Hemoglobin A1c percentageOrd ered By: Lex Roca on 07-19-2024 HbA1c (Bld) [Mass fraction] 7.6 % High <5.7 [facility] Comment on above: Normal < 5.7 % Predi abetic 5.7 - 6.4 % Diabetic >or= 6.5 % Please note range changes. Hemoglobin measurementOrdere d By: Lex Roca on 07-19-2024 Hemoglobin (Bld) [Mass/Vol] 10.4 g/dL Low 12.0-15.0 [facility] Immature granulocytes/100 WB C Auto (Bld)Ordered By: Lex Roca on 07-19-2024 Immature granulocytes/100 WBC (Bld) 0.800 % 0.0-0.9 [facility] Comment on above: IG% - Immature Granu locytes (promyelocytes, myelocytes and metamyelocytes) > 1% indicates that a LEFT SHIFT is Present. Ketones Test strip Ql (U)Ord ered By: Lex Roca on 07-19-2024 Ketones Ql (U) Negative Negative [facility] MCV (mean corpuscular volume ) determinationOrdered By: Lex Roca on 07-19-2024 MCV (RBC) [Entitic vol] 91.0 fL 81-99 [facility] Mean corpuscular hemoglobin (MCH) determinationOrdered By: Lex Roca on 07-19-2024 MCH (RBC) [Entitic mass] 29.1 pg 27.0-32.0 [facility] Mean corpuscular hemoglobin concentration (MCHC) determinationOrdered By: Lex Roca on 07-19-2024 MCHC (RBC) [Mass/Vol] 32.0 g/dL 32-36 [facility] Mean platelet volume determi nationOrdered By: Lex Roca on 07-19-2024 Platelet mean volume (Bld) [Entitic vol] 9.9 fL 6.2-12.0 [facility] Monocyte percentageOrdered B y: Lex Roca on 07-19-2024 Monocytes/100 WBC (Bld) 12.1 % High 0-10 [facility] Neutrophil percentageOrdered By: Lex Roca on 07-19-2024 Neutrophils/100 WBC (Bld) 56.3 % 47-70 [facility] Nitrite Test strip Ql (U)Ord ered By: Lex Roca on 07-19-2024 Nitrite Ql (U) Negative Negative [facility] Nucleated red blood cell per centageOrdered By: Lex Roca on 07-19-2024 Nucleated RBC/100 WBC (Bld) [Ratio] 0 % 0-5 [facility] Platelet countOrdered By: Sony Roca on 07-19-2024 Platelets (Bld) [#/Vol] 288 10*3/uL 150-450 [facility] Potassium measurement (mass/ volume)Ordered By: Lex Roca on 07-19-2024 Potassium (Unsp spec) [Mass/Vol] 4.9 mmol/L 3.3-5.1 [facility] Protein Test strip Ql (U)Ord ered By: Lex Roca on 07-19-2024 Protein Ql (U) TNP [facility] Comment on above: Test not performed RBC Auto (Bld) [#/Vol]Ordere d By: Lex Roca on 07-19-2024 RBC (Bld) [#/Vol] 3.57 10*6/uL Low 4.2-5.4 [facility] Serum creatinine measurement (mass/volume)Ordered By: Lex Roca on 07-19-2024 Creatinine [Mass/Vol] 1.83 mg/dL High 0.70-1.20 [facility] Serum glucose measurement (m ass/volume)Ordered By: Lex Roca on 07-19-2024 Glucose [Mass/Vol] 227 mg/dL High 70-99 [facility] Serum or plasma albumin aba urement (mass/volume)Ordered By: Lex Roca on 07-19-2024 Albumin [Mass/Vol] 3.3 g/dL Low 3.4-4.8 [facility] Serum or plasma calcium aba urement (mass/volume)Ordered By: Lex Roca on 07-19-2024 Calcium [Mass/Vol] 8.8 mg/dL 7.6-11.0 [facility] Serum or plasma urea nitroge n measurement (mass/volume)Ordered By: Lex Roca on 07-19-2024 Urea nitrogen [Mass/Vol] 49 mg/dL High 4-19 [facility] Sodium levelOrdered By: Iban Roca on 07-19-2024 Sodium [Moles/Vol] 139 mmol/L 133-145 [facility] Urine clarityOrdered By: Tony Roca on 07-19-2024 Clarity (U) Clear Clear [facility] Urine color determinationOrd ered By: Lex Roca on 07-19-2024 Color (U) Yellow Yellow [facility] Urine cultureOrdered By: Tony Roca on 07-19-2024 Bacteria identified Cx Nom (U) Proteus mirabilis Abnormal [facility] Urine glucose detectionOrder ed By: Lex Roca on 07-19-2024 Glucose Ql (U) 250 mg/dl High Normal [facility] Urine leukocyte esterase det ection by dipstickOrdered By: Lex Roca on 07-19-2024 Leukocyte esterase Test strip Ql (U) 25 /ul High Negative [facility] Urine pHOrdered By: Lex cooper on 07-19-2024 pH (U) 6.0 [pH] 5.0 - 8.0 [facility] Urine specific gravity measu rementOrdered By: Lex Roca on 07-19-2024 Specific gravity (U) [Rel density] 1.020 1.002-1.030 [facility] Urine urobilinogen measureme ntOrdered By: Lex Roca on 07-19-2024 Urobilinogen Ql (U) Normal mg/dl Normal [facility] White blood cell (WBC) count Ordered By: Lex Roca on 07-19-2024 WBC (Bld) [#/Vol] 6.6 10*3/uL 4.4-11.0 [facility] Anion gap in Serum or Plasma Ordered By: Lex Roca on 07-17-2024 Anion gap [Moles/Vol] 10 mmol/L 5-15 [facility] BUN/creatinine ratioOrdered By: Lex Roca on 07-17-2024 Urea nitrogen/Creatinine [Mass ratio] 28.0 mg/mg High 10-20 [facility] Carbon dioxide, total [Moles /volume] in Central venous bloodOrdered By: Lex Roca on 07-17-2024 CO2 [Moles/Vol] 23.1 mmol/L 21.0-32.0 [facility] Chloride assayOrdered By: Sony Roca on 07-17-2024 Chloride [Moles/Vol] 107 mmol/L 98-108 [facility] Erythrocyte distribution wid th ratioOrdered By: Lex Roca on 07-17-2024 Erythrocyte distribution width (RBC) [Ratio] 12.5 % 11.6-14.6 [facility] Erythrocyte distribution wid th standard deviationOrdered By: Lex Roca on 07-17-2024 Erythrocyte distribution width (RBC) [Ratio] 41.5 fl 35.1-43.9 [facility] Glomerular filtration rate ( GFR) estimation/1.73 sq m using serum, plasma, or whole bOrdered By: Lex Roca on 07-17-2024 GFR/1.73 sq M.predicted among non-blacks MDRD (S/P/Bld) [Vol rate/Area] 30 mL/min/{1.73_m2} Low >60 [facility] Comment on above: mL/min/1.73m2 CKD-EP I Creatinine Equation (2020) Hematocrit Auto (Bld) [Volum e fraction]Ordered By: Lex Roca on 07-17-2024 Hematocrit (Bld) [Volume fraction] 33.8 % Low 37-47 [facility] Hemoglobin A1c percentageOrd ered By: Lex Roca on 07-17-2024 HbA1c (Bld) [Mass fraction] 7.5 % High <5.7 [facility] Comment on above: Normal < 5.7 % Predi abetic 5.7 - 6.4 % Diabetic >or= 6.5 % Please note range changes. Hemoglobin measurementOrdere d By: Lex Roca on 07-17-2024 Hemoglobin (Bld) [Mass/Vol] 10.9 g/dL Low 12.0-15.0 [facility] MCV (mean corpuscular volume ) determinationOrdered By: Lex Roca on 07-17-2024 MCV (RBC) [Entitic vol] 91.6 fL 81-99 [facility] Mean corpuscular hemoglobin (MCH) determinationOrdered By: Lex Roca on 07-17-2024 MCH (RBC) [Entitic mass] 29.5 pg 27.0-32.0 [facility] Mean corpuscular hemoglobin concentration (MCHC) determinationOrdered By: Lex Roca on 07-17-2024 MCHC (RBC) [Mass/Vol] 32.2 g/dL 32-36 [facility] Mean platelet volume determi nationOrdered By: Lex Roca on 07-17-2024 Platelet mean volume (Bld) [Entitic vol] 10.0 fL 6.2-12.0 [facility] Platelet countOrdered By: Sony Roca on 07-17-2024 Platelets (Bld) [#/Vol] 286 10*3/uL 150-450 [facility] Potassium measurement (mass/ volume)Ordered By: Lex Roca on 07-17-2024 Potassium (Unsp spec) [Mass/Vol] 5.1 mmol/L 3.3-5.1 [facility] RBC Auto (Bld) [#/Vol]Ordere d By: Lex Roca on 07-17-2024 RBC (Bld) [#/Vol] 3.69 10*6/uL Low 4.2-5.4 [facility] Serum creatinine measurement (mass/volume)Ordered By: Lex Roca on 07-17-2024 Creatinine [Mass/Vol] 1.87 mg/dL High 0.70-1.20 [facility] Serum glucose measurement (m ass/volume)Ordered By: Lxe Roca on 07-17-2024 Glucose [Mass/Vol] 254 mg/dL High 70-99 [facility] Serum or plasma calcium aba urement (mass/volume)Ordered By: Lex Roca on 07-17-2024 Calcium [Mass/Vol] 8.8 mg/dL 7.6-11.0 [facility] Serum or plasma urea nitroge n measurement (mass/volume)Ordered By: Lex Roca on 07-17-2024 Urea nitrogen [Mass/Vol] 52 mg/dL High 4-19 [facility] Sodium levelOrdered By: Iban Roca on 07-17-2024 Sodium [Moles/Vol] 140 mmol/L 133-145 [facility] White blood cell (WBC) count Ordered By: Lex Roca on 07-17-2024 WBC (Bld) [#/Vol] 6.7 10*3/uL 4.4-11.0 [facility] BETA HYDROXYBUTYRATEon 07-13 BETA HYDROXYBUTYRATE 0.6 mg/dL Normal <=2.8 [facility] Comment on above: Performed By: #### L [id number], [id number] ####Newscast Director: LAURA BAUTISTA ([id number])[facility] HOSPITALRamón CORTESSAM RITTMAN (SWRLAB)[address] [place] [address] BLOOD GAS, VENOUS (SWR AND S HC)on 07-13-2024 AMOUNT OF OXYGEN Normal [facility] Comment on above: Performed By: #### L [id number] ####Newscast Director: LAURA BAUTISTA ([id number])[facility]OS[facility]ITALRamón CORTESSAM RITTMAN (SWRLAB)[address] [place] [address] BASE EXCESS (MMOL/L) IN VENOUS BLOOD -1.0 mmol/L Normal -3.0-3.0 [facility] Comment on above: Performed By: #### L [id number] ####Newscast Director: LAURA BAUTISTA ([id number])[facility] HOS[facility]ITALA SAM R[place]TMAN (SWRLAB)[address] [place] [address] [place] CARBON DIOXIDE (MM HG) IN VENOUS BLOOD 43 mm(Hg) Normal 40-55 [facility] Comment on above: Performed By: #### L [id number] ####Newscast Director: LAURA BAUTISTA ([id number])[facility]ITALRamón CORTESSAM R[place]TM[place] (SWRLAB)[address] [place] [address] [place] CO2 [Moles/Vol] 26.0 mmol/L Normal 24.0-28.0 [facility] Comment on above: Performed By: #### L [id number] ####Newscast Director: LAURA BAUTISTA ([id number])[facility]OS[facility]ITALRamón VARGAS RITTMAN (SWRLAB)[address] [place] [address] HCO3 (Bld) [Moles/Vol] 24.7 mmol/L Normal 23.0-27.0 [facility] Comment on above: Performed By: #### L [id number] ####Newscast Director: LAURA BAUTISTA ([id number])[facility]OS[facility]ITALRamón VARGAS [place]TM[place] (SWRL[place])[address] [place] [address] OXYGEN (MM HG) IN VENOUS BLOOD 51 mm(Hg) Normal [facility] Comment on above: Performed By: #### L [id number] ####Newscast Director: LAURA BAUTISTA ([id number])[facility]ITALRamón VARGAS [place] (SWRL[place])[address] [place] [address] OXYGEN SATURATION (%) IN VENOUS BLOOD 85.0 % High 60.0-80.0 [facility] Comment on above: Performed By: #### L [id number] ####Newscast Director: LAURA BAUTISTA ([id number])[facility]ITALRamón VARGAS [place] (SWRL[place])[address] [place] [address] pH (Bld) 7.373 [pH] Normal 7.310-7.410 [facility] Comment on above: Performed By: #### L [id number] ####Newscast Director: LAURA BAUTISTA ([id number])[facility]ITALRamón VARGAS R[place]TM[place] (SWRL[place])[address] [place] [address] SOURCE OF OXYGEN None (Room Air) Normal [facility] Comment on above: Performed By: #### L [id number] ####Newscast Director: LAURA BAUTISTA ([id number])[facility]ITALRamón V[facility]AS [facility] (SWRL[place])[address] [place] [address] CBC WITH AUTO DIFFERENTIALon 07-13-2024 Basophils (Bld) [#/Vol] 0.0 10*3/uL Normal 0.0-0.2 [facility] Comment on above: Performed By: #### L [id number] ####Newscast Director: LAURA BAUTISTA ([id number])[place] ([place])[address] [place] [address] Basophils/100 WBC (Bld) 0.5 % Normal 0.0-2.0 [facility] Comment on above: Performed By: #### L [id number] ####Newscast Director: LAURA BAUTISTA ([id number])[facility]ITALA [facility] [place] ([place])[address] [place] [address] Eosinophils (Bld) [#/Vol] 0.5 10*3/uL Normal 0.0-0.5 [facility] Comment on above: Performed By: #### L [id number] ####Newscast Director: LAURA BAUTISTA ([id number])[facility]ITALA [facility] [place] ([place])[address] [place] [address] Eosinophils/100 WBC (Bld) 6.3 % High 0.0-6.0 [facility] Comment on above: Performed By: #### L [id number] ####Newscast Director: LAURA BAUTISTA ([id number])[facility] [place] ([place])[address] [place] [address] Erythrocyte distribution width (RBC) [Ratio] 12.7 % Normal 11.5-15.0 [facility] Comment on above: Performed By: #### L [id number] ####Newscast Director: LAURA BAUTISTA ([id number])[facility]ITALA [facility] [place] (SWRL[place])[address] [place] [address] Hematocrit (Bld) [Volume fraction] 34.0 % Low 35.0-47.0 [facility] Comment on above: Performed By: #### L [id number] ####Newscast Director: LAURA BAUTISTA ([id number])[facility] (SWRL[place])[address] [place] [address] Hemoglobin (Bld) [Mass/Vol] 11.1 g/dL Low 11.7-16.0 [facility] Comment on above: Performed By: #### L [id number] ####Newscast Director: LAURA BAUTISTA ([id number])[facility]ITALRamón VARGAS [facility] (SWRL[place])[address] [place] [address] IMMATURE GRANS % 0.7 % Normal 0.0-2.0 [facility] Comment on above: Performed By: #### L [id number] ####Newscast Director: LAURA BAUTISTA ([id number])[facility]ITALRamón [facility] (SWRL[place])[address] [place] [address] IMMATURE GRANS ABSOLUTE 0.1 10*3/uL High <0.1 [facility] Comment on above: Performed By: #### L [id number] ####Newscast Director: LAURA BAUTISTA ([id number])[facility]ITALRamón V[facility] (SWRL[place])[address] [place] [address] Lymphocytes (Bld) [#/Vol] 1.9 10*3/uL Normal 1.0-4.3 [facility] Comment on above: Performed By: #### L [id number] ####Newscast Director: LAURA BAUTISTA ([id number])[facility]ITALRamón V[facility] (SWRL[place])[address] [place] [address] Lymphocytes/100 WBC (Bld) 24.8 % Normal 15.0-45.0 [facility] Comment on above: Performed By: #### L [id number] ####Newscast Director: LAURA BAUTISTA ([id number])[facility]ITALRamón V[facility] (SWRL[place])[address] [place] [address] MCH (RBC) [Entitic mass] 29.4 pg Normal 26.0-34.0 [facility] Comment on above: Performed By: #### L [id number] ####Newscast Director: LAURA BAUTISTA ([id number])[facility] ([place])[address] [place] [address] MCHC 32.6 % Normal 30.5-36.0 [facility] Comment on above: Performed By: #### L [id number] ####Newscast Director: LAURA BAUTISTA ([id number])[facility] ([facility]RL[facility])[address] [place] [address] MCV (RBC) [Entitic vol] 90.2 fL Normal 77.0-99.0 [facility] Comment on above: Performed By: #### L [id number] ####Newscast Director: LAURA BAUTISTA ([id number])[facility] [place] ([place]RL[place])[address] [place] [address] Monocytes (Bld) [#/Vol] 0.9 10*3/uL Normal 0.0-0.9 [facility] Comment on above: Performed By: #### L [id number] ####Newscast Director: LAURA BAUTISTA ([id number])[facility] ([place]RL[place])[address] [place] [address] [place] Monocytes/100 WBC (Bld) 11.4 % Normal 5.0-13.0 [facility] Comment on above: Performed By: #### L [id number] ####Newscast Director: LAURA BAUTISTA ([id number])[facility] ([place])[address] [place] [address] [place] NEUTROPHILS ABSOLUTE 4.3 10*3/uL Normal 1.8-7.5 [facility] Comment on above: Performed By: #### L [id number] ####Newscast Director: LAURA BAUTISTA ([id number])[facility] [place] ([place]RL[place])[address] [place] [address] [place] Neutrophils/100 WBC (Bld) 56.3 % Normal 38.0-82.0 [facility] Comment on above: Performed By: #### L [id number] ####Newscast Director: LAURA BAUTISTA ([id number])[facility] ([place]RL[place])[address] [place] [address] NRBC 0.0 /100 WBCs Normal 0.0-2.0 [facility] Comment on above: Performed By: #### L [id number] ####Newscast Director: LAURA BAUTISTA ([id number])[facility]ITALRamón VARGAS [facility] (SWRL[place])[address] [place] [address] Platelet mean volume (Bld) [Entitic vol] 9.4 fL Normal 9.0-12.7 [facility] Comment on above: Result Comment: MPV is a calculated measurement using platelet volume ratio Performed By: #### L [id number] ####Newscast Director: LAURA BAUTISTA ([id number])[facility]ITALRamón [facility] (SWRL[facility])[address] [place] [address] Platelets (Bld) [#/Vol] 282 10*3/uL Normal 140-440 [facility] Comment on above: Performed By: #### L [id number] ####Newscast Director: LAURA BAUTISTA ([id number])[facility]ITALRam[facility] (SWRL[facility])[address] [place] [address] RBC (Bld) [#/Vol] 3.77 10*6/uL Low 3.80-5.20 [facility] Comment on above: Performed By: #### L [id number] ####Newscast Director: LAURA BAUTISTA ([id number])[facility]ITALRam[facility] ([place]RL[place])[address] [place] [address] [place] WBC (Bld) [#/Vol] 7.7 10*3/uL Normal 3.6-10.7 [facility] Comment on above: Performed By: #### L [id number] ####Newscast Director: LAURA BAUTISTA ([id number])[facility]ITALRamón [facility] ([place]RL[facility])[address] COMPREHENSIVE METABOLIC PANE Aamir 07-13-2024 Albumin [Mass/Vol] 3.2 g/dL Low 3.4-4.8 [facility] Comment on above: Performed By: #### L [id number], [id number] ####Newscast Director: LAURA BAUTISTA ([id number])[facility]ITALRamón [facility] ([facility])[address] [place] [address] [place] ALP [Catalytic activity/Vol] 65 U/L Normal 40-150 [facility] Comment on above: Performed By: #### L [id number], [id number] ####Newscast Director: LAURA BAUTISTA ([id number])[facility]ITALRam[facility] ([place]RL[place])[address] ALT [Catalytic activity/Vol] 12 U/L Normal <30 [facility] Comment on above: Performed By: #### Jaky [id number], LAB17 ####Newscast Director: LAURA BAUTISTA ([id number])[facility]ITALRam[facility] ([place])[address] [place] [address] [place] Anion gap [Moles/Vol] 9 mmol/L Normal 3-13 [facility] Comment on above: Performed By: #### L [id number], [id number] ####Newscast Director: LAURA BAUTISTA ([id number])[facility]ITALRam[facility] ([place])[address] [place] [address] [place] AST [Catalytic activity/Vol] 20 U/L Normal <34 [facility] Comment on above: Performed By: #### L [id number], LAB17 ####Newscast Director: LAURA BAUTISTA ([id number])[facility]ITALRam[facility] ([facility])[address] [place] [address] [place] Bilirubin [Mass/Vol] 0.3 mg/dL Normal <1.2 [facility] Comment on above: Performed By: #### L [id number], LAB17 ####Newscast Director: LAURA BAUTISTA ([id number])[facility] SAM [place] (SWRLAB)[address] [place] [address] [place] Calcium [Mass/Vol] 9.0 mg/dL Normal 8.8-10.0 [facility] Comment on above: Performed By: #### L [id number], LAB17 ####Newscast Director: LAURA BAUTISTA ([id number])[facility]ITALA [facility] ([place])[address] [place] [address] [place] Chloride [Moles/Vol] 108 mmol/L High 98-107 [facility] Comment on above: Performed By: #### L [id number], LAB17 ####Newscast Director: LAURA BAUTISTA ([id number])[facility]ITALA [facility] ([place])[address] CO2 [Moles/Vol] 21 mmol/L Low 23-31 [facility] Comment on above: Performed By: #### L [id number], [id number] ####Newscast Director: LAURA BAUTISTA ([id number])[facility]ITALA [facility] ([place])[address] [place] [address] [place] Creatinine [Mass/Vol] 2.00 mg/dL High 0.57-1.11 [facility] Comment on above: Performed By: #### L [id number], LAB17 ####Newscast Director: LAURA BAUTISTA ([id number])[facility]A [facility] ([place])[address] GLOMERULAR FILTRATION RATE ML/MIN/1.73 SQ M.PREDICTED 27.8 mL/min/1.73m*2 Low >60.0 [facility] Comment on above: Result Comment: Calc ulation based on the Chronic Kidney Disease Epidemiology Collaboration (CKD-EPI) equation refit without adjustment for race Performed By: #### L [id number], LAB17 ####Newscast Director: LAURA BAUTISTA ([id number])[facility]A [facility] ([place])[address] [place] [address] [place] Glucose [Mass/Vol] 370 mg/dL High 82-115 [facility] Comment on above: Performed By: #### L [id number], LAB17 ####Newscast Director: LAURA BAUTISTA ([id number])[facility]ITALRamón [facility] (SWRL[facility])[address] [place] [address] Potassium [Moles/Vol] 4.8 mmol/L Normal 3.5-5.1 [facility] Comment on above: Result Comment: [facility] potassium values may be up to 0.5 mmol/L lower than serum values. Performed By: #### L [id number], [id number] ####Newscast Director: LAURA BAUTISTA ([id number])[facility] HOSPITALRamón WARDTMAN (SWRLAB)[address] [place] [address] Protein [Mass/Vol] 6.9 g/dL Normal 6.4-8.3 [facility] Comment on above: Performed By: #### L [id number], [id number] ####Newscast Director: LAURA BAUTISTA ([id number])[facility] HOSPITALRamón VARGAS RITTMAN (SWRLAB)[address] [place] [address] [place] Sodium [Moles/Vol] 138 mmol/L Normal 136-145 [facility] Comment on above: Performed By: #### L [id number], [id number] ####Newscast Director: LAURA BAUTISTA ([id number])[facility] HOSPITALRamón VARGAS RITTMAN (SWRLAB)[address] [place] [address] Urea nitrogen [Mass/Vol] 56 mg/dL High 9-23 [facility] Comment on above: Performed By: #### L [id number], LAB17 ####Newscast Director: LAURA BAUTISTA ([id number])[facility] HOSPITALRamón VARGAS RITTMAN (SWRLAB)[address] [place] [address] ECG 12-LEADon 07-13-2024 ECG 12-LEAD IMPRESSION: Sinus rhythm Inferior infarct, old Compared to ECG 07/08/24 No significant change Electronically Signed On 07-13-2024 00:24:08 EDT by Grzegorz Cerda [facility] ED Nursing Noteon 07-13-2024 ED Nursing Note Pt reports mid back pain, and LLE pain and swelling. Pt treated for cellulitis of lower leg. States her blood sugar was high this evening, did receive her insulin from her nurse. Unsure what type of insulin [facility] ED Provider Noteon ED Provider Note [facility] ED EMERGENCY DEPARTMENT ENCOUNTER Pt Name: [...] 12/11/2022 Performed by Micheal Silva MD at [address] ENDOSCOPY CURRENT MEDICATIONS Previous Medications ACETAMINOPHEN [...] if av (more content not included)... Normal [facility] BASIC METABOLIC PANELon -04 24-2024 Anion gap [Moles/Vol] 9 mmol/L Normal 3-13 [facility] Comment on above: Performed By: #### L [id number] #### Newscast Director: LAURA BAUTISTA ([id number]) [facility] ([facility]) [address] [place] [address] Calcium [Mass/Vol] 8.9 mg/dL Normal 8.8-10.0 [facility] Comment on above: Performed By: #### L AB90 #### Newscast Director: LAURA BAUTISTA ([id number]) [facility] ([facility]) [address] [place] [address] [place] Chloride [Moles/Vol] 109 mmol/L High 98-107 [facility] Comment on above: Performed By: #### L AB90 #### Newscast Director: LAURA BAUTISTA ([id number]) [facility] ([facility]) [address] [place] [address] [place] CO2 [Moles/Vol] 21 mmol/L Low 23-31 [facility] Comment on above: Performed By: #### L AB90 #### Newscast Director: LAURA BAUTISTA ([id number]) [facility] ([facility]) [address] [place] [address] [place] Creatinine [Mass/Vol] 2.14 mg/dL High 0.57-1.11 [facility] Comment on above: Performed By: #### L AB90 #### Newscast Director: LAURA BAUTISTA ([id number]) [facility]) [address] [place] [address] GLOMERULAR FILTRATION RATE ML/MIN/1.73 SQ M.PREDICTED 25.6 mL/min/1.73m*2 Low >60.0 [facility] Comment on above: Result Comment: Calc ulation based on the Chronic Kidney Disease Epidemiology Collaboration (CKD-EPI) equation refit without adjustment for race Performed By: #### L AB90 #### Newscast Director: LAURA BAUTISTA ([id number]) [facility] ([facility]) [address] [place] [address] Glucose [Mass/Vol] 316 mg/dL High 82-115 [facility] Comment on above: Performed By: #### L AB90 #### Newscast Director: LAURA BAUTISTA ([id number]) [facility]) [address] [place] [address] Potassium [Moles/Vol] 5.0 mmol/L Normal 3.5-5.1 [facility] Comment on above: Result Comment: [facility] potassium values may be up to 0.5 mmol/L lower than serum values. Performed By: #### L AB90 #### Newscast Director: LAURA BAUTISTA ([id number]) [facility] ([facility]) [address] [place] [address] Sodium [Moles/Vol] 139 mmol/L Normal 136-145 [facility] Comment on above: Performed By: #### L AB90 #### Newscast Director: LAURA BAUTISTA ([id number]) [facility]) [address] [place] [address] [place] Urea nitrogen [Mass/Vol] 59 mg/dL High -23 [facility] Comment on above: Performed By: #### L AB90 #### Newscast Director: LAURA BAUTISTA ([id number]) [facility]) [address] [place] [address] CBC WITH AUTO DIFFERENTIALon 07-12-2024 Basophils (Bld) [#/Vol] 0.1 10*3/uL Normal 0.0-0.2 [facility] Comment on above: Performed By: #### L [id number] ####Newscast Director: LAURA BAUTISTA ([id number])[facility] (SWRLAB)[address] [place] [address] Basophils/100 WBC (Bld) 0.6 % Normal 0.0-2.0 [facility] Comment on above: Performed By: #### L [id number] ####Newscast Director: LAURA BAUTISTA ([id number])[facility] (SWRLAB)[address] [place] [address] Eosinophils (Bld) [#/Vol] 0.6 10*3/uL High 0.0-0.5 [facility] Comment on above: Performed By: #### L [id number] ####Newscast Director: LAURA BAUTISTA ([id number])[facility] (SWRLAB)[address] [place] [address] [place] Eosinophils/100 WBC (Bld) 7.3 % High 0.0-6.0 [facility] Comment on above: Performed By: #### L [id number] ####Newscast Director: LAURA BAUTISTA ([id number])[facility] [place] [facility] (SWRLAB)[address] [place] [address] Erythrocyte distribution width (RBC) [Ratio] 12.9 % Normal 11.5-15.0 [facility] Comment on above: Performed By: #### L [id number] ####Newscast Director: LAURA BAUTISTA ([id number])[facility] (SWRLAB)[address] [place] [address] Hematocrit (Bld) [Volume fraction] 33.2 % Low 35.0-47.0 [facility] Comment on above: Performed By: #### L [id number] ####Newscast Director: LAURA BAUTISTA ([id number])[facility] HOS[facility]ITALA SAM RITTMAN (SWRLAB)[address] [place] [address] Hemoglobin (Bld) [Mass/Vol] 10.8 g/dL Low 11.7-16.0 [facility] Comment on above: Performed By: #### L [id number] ####Newscast Director: LAURA BAUTISTA ([id number])[facility] HOSPITALRamón VARGAS [facility]TM[facility] (SWRLAB)[address] [place] [address] IMMATURE GRANS % 0.5 % Normal 0.0-2.0 [facility] Comment on above: Performed By: #### L [id number] ####Newscast Director: LAURA BAUTISTA ([id number])[facility] HOSPITALRamón [facility] (SWRLAB)[address] [place] [address] IMMATURE GRANS ABSOLUTE 0.0 10*3/uL Normal <0.1 [facility] Comment on above: Performed By: #### L [id number] ####Newscast Director: LAURA BAUTISTA ([id number])[facility] HOSPITALRamón [facility] (SWRLAB)[address] [place] [address] Lymphocytes (Bld) [#/Vol] 1.7 10*3/uL Normal 1.0-4.3 [facility] Comment on above: Performed By: #### L [id number] ####Newscast Director: LAURA BAUTISTA ([id number])[facility] HOSPITALRamón [facility] (SWRLAB)[address] [place] [address] [place] Lymphocytes/100 WBC (Bld) 22.3 % Normal 15.0-45.0 [facility] Comment on above: Performed By: #### L [id number] ####Newscast Director: LAURA BAUTISTA ([id number])[facility] HOS[facility]ITALRamón [facility] (SWRLAB)[address] [place] [address] MCH (RBC) [Entitic mass] 29.2 pg Normal 26.0-34.0 [facility] Comment on above: Performed By: #### L [id number] ####Newscast Director: LAURA BAUTISTA ([id number])[facility] (SWRLAB)[address] MCHC 32.5 % Normal 30.5-36.0 [facility] Comment on above: Performed By: #### L [id number] ####Newscast Director: LAURA BAUTISTA ([id number])[facility] (SWRLAB)[address] [place] [address] MCV (RBC) [Entitic vol] 89.7 fL Normal 77.0-99.0 [facility] Comment on above: Performed By: #### L [id number] ####Newscast Director: LAURA BAUTISTA ([id number])[facility] (SWRLAB)[address] [place] [address] Monocytes (Bld) [#/Vol] 0.9 10*3/uL Normal 0.0-0.9 [facility] Comment on above: Performed By: #### L [id number] ####Newscast Director: LAURA BAUTISTA ([id number])[facility] (SWRLAB)[address] [place] [address] [place] Monocytes/100 WBC (Bld) 11.0 % Normal 5.0-13.0 [facility] Comment on above: Performed By: #### L [id number] ####Newscast Director: LAURA BAUTISTA ([id number])[facility] (SWRLAB)[address] [place] [address] [place] NEUTROPHILS ABSOLUTE 4.5 10*3/uL Normal 1.8-7.5 [facility] Comment on above: Performed By: #### L [id number] ####Newscast Director: LAURA BAUTISTA ([id number])[facility] (SWRLAB)[address] [place] [address] [place] Neutrophils/100 WBC (Bld) 58.3 % Normal 38.0-82.0 [facility] Comment on above: Performed By: #### L [id number] ####Newscast Director: LAURA BAUTISTA ([id number])[facility] HOSPITALRamón VARGAS R[facility]TM[facility] (SWRLAB)[address] [place] [address] NRBC 0.0 /100 WBCs Normal 0.0-2.0 [facility] Comment on above: Performed By: #### L [id number] ####Newscast Director: LAURA BAUTISTA ([id number])[facility] HOSPITALRamón [facility] (SWRLAB)[address] [place] [address] Platelet mean volume (Bld) [Entitic vol] 9.7 fL Normal 9.0-12.7 [facility] Comment on above: Result Comment: MPV is a calculated measurement using platelet volume ratio Performed By: #### L [id number] ####Newscast Director: LAURA BAUTISTA ([id number])[facility] HOSPITALRamón [facility] (SWRLAB)[address] [place] [address] [place] Platelets (Bld) [#/Vol] 278 10*3/uL Normal 140-440 [facility] Comment on above: Performed By: #### L [id number] ####Newscast Director: LAURA BAUTISTA ([id number])[facility] HOS[facility]ITALRamón [facility] (SWRLAB)[address] [place] [address] RBC (Bld) [#/Vol] 3.70 10*6/uL Low 3.80-5.20 [facility] Comment on above: Performed By: #### L [id number] ####Newscast Director: LAURA BAUTISTA ([id number])[facility]OS[facility]ITALRamón VARGAS [facility]TM[facility] (SWRLAB)[address] [place] [address] [place] WBC (Bld) [#/Vol] 7.8 10*3/uL Normal 3.6-10.7 [facility] Comment on above: Performed By: #### L [id number] ####Newscast Director: LAURA BAUTISTA ([id number])[facility] HOSPITALRamón [facility] (SWRLAB)[address] [place] [address] ED Provider Noteon ED Provider Note Emergency Department Encounter [facility] ED Patient: Cinthya Castillo : 1960 Date of Evaluation: 07/12/2024 ED Provider: Grzegorz Guillen DO Chief Complaint Chief Complaint Patient presents with Fall Pt. Reports bilateral hip pain [facility] [place] Cinthya Castillo is a 63 y.o. female [...] ANKLE SURGERY COLONOSCOPY N/A 12/11/2022 Performed by Mihceal Silva MD at [address] ENDOSCOPY Social History Socioeconomic History Marital [...] knee, dorsiflex (more content not included)... Normal [facility] HIGH SENSITIVITY TROPONIN, S ERIAL BASELINEon 07-12-2024 TROPONIN HS SERIAL BASELINE 6 ng/L Normal <=14 [facility] Comment on above: Result Comment: In i ndividuals presenting with symptoms > 2h, a baseline troponin <= 5 ng/L suggests acute cardiac injury is unlikely and further serial testing is generally not indicated. Performed By: #### L AB90 #### Newscast Director: LAURA BAUTISTA ([id number]) [facility] ([facility]) [address] [place] [address] 30on 07-11-2024 30 Problem: Knowledge Deficit Goal: [...] maintained or improved Outcome: Adequate for Discharge Normal [facility] [id number] 07-11-2024 [id number] Next Site of Care Admission Date: 07/08/2024 07:50 PM Patient Name: CINTHYA CASTILLO Location: [address]/[facility] [id number] A Date of : 1960 ---- Placement Information ---- Referral Type:Long Term/SNF - Return Referral ID:[id number] Provider Name:[facility] Address 1:[address] [place] [address] 180 Address 2: City:[place] Selection Factors:Returning to Facility State:[place] [facility] [id number] Confirmed pickup anh e of 130 by transport company [employer] at phone number [phone]. Location of facility drop off is return back to [facility]. Facility notified via [facility] notified on secure chat. [facility] [phone] Transport requested 130 case picker in [employer]. Awaiting time confirmation. [facility] [phone] Discharge med list t o return back to [facility] transmitted to via [employer] per [facility] request. Normal [facility] CBC WITH AUTO DIFFERENTIALon 07-11-2024 Basophils (Bld) [#/Vol] 0.0 10*3/uL Normal 0.0-0.2 [facility] Comment on above: Performed By: #### L [id number] ####Newscast Director: YOLETTE CROWE ([id number])[facility] HOSPITALA [facility]ITALN (SBHLAB)[address] Basophils/100 WBC (Bld) 0.4 % Normal 0.0-2.0 [facility] Comment on above: Performed By: #### L [id number] ####Newscast Director: YOLETTE CROWE ([id number])[facility] HOS[facility]ITALA [facility]ERN (SBAB)[address] [place] [address] Eosinophils (Bld) [#/Vol] 0.5 10*3/uL Normal 0.0-0.5 [facility] Comment on above: Performed By: #### L [id number] ####Newscast Director: YOLETTE CROWE ([id number])[facility]ITALA [facility] CENTERKina (SBAB)[address] [place] [address] Eosinophils/100 WBC (Bld) 5.1 % Normal 0.0-6.0 [facility] Comment on above: Performed By: #### L [id number] ####Newscast Director: YOLETTE CROWE ([id number])[facility] HOSPITALRamón [facility] CENTERKina (SBAB)[address] [place] [address] Erythrocyte distribution width (RBC) [Ratio] 12.7 % Normal 11.5-15.0 [facility] Comment on above: Performed By: #### L [id number] ####Newscast Director: YOLETTE CROWE ([id number])[facility] (SBAB)[address] [place] [address] Hematocrit (Bld) [Volume fraction] 35.9 % Normal 35.0-47.0 [facility] Comment on above: Performed By: #### L [id number] ####Newscast Director: YOLETTE CROWE ([id number])[facility] HOSPITALRamón KUNZNOR-LEA GENERAL HOSPITALKina (SBHLAB)[address] Hemoglobin (Bld) [Mass/Vol] 11.3 g/dL Low 11.7-16.0 [facility] Comment on above: Performed By: #### L [id number] ####Newscast Director: YOLETTE CROWE ([id number])[facility] HOSPITALRamón KUNZNOR-LEA GENERAL HOSPITALN (SBHLAB)[address] IMMATURE GRANS % 0.6 % Normal 0.0-2.0 [facility] Comment on above: Performed By: #### L [id number] ####Newscast Director: YOLETTE CROWE ([id number])[facility] ([facility])[address] IMMATURE GRANS ABSOLUTE 0.1 10*3/uL High <0.1 [facility] Comment on above: Performed By: #### L [id number] ####Newscast Director: YOLETTE CROWE ([id number])[facility] HOSPITALRamón [place] (SBAB)[address] Lymphocytes (Bld) [#/Vol] 1.6 10*3/uL Normal 1.0-4.3 [facility] Comment on above: Performed By: #### L [id number] ####Newscast Director: YOLETTE CROWE ([id number])[facility] HOSPITALRamón [place] (SBAB)[address] [place] [address] [place] Lymphocytes/100 WBC (Bld) 18.2 % Normal 15.0-45.0 [facility] Comment on above: Performed By: #### L [id number] ####Newscast Director: YOLETTE CROWE ([id number])[facility] HOSPITALRamón [place] (SBAB)[address] MCH (RBC) [Entitic mass] 28.9 pg Normal 26.0-34.0 [facility] Comment on above: Performed By: #### L [id number] ####Newscast Director: YOLETTE [id number])[facility] (SBHLAB)[address] MCHC 31.5 % Normal 30.5-36.0 [facility] Comment on above: Performed By: #### L [id number] ####Newscast Director: YOLETTE CROWE ([id number])[facility] (SBHLAB)[address] MCV (RBC) [Entitic vol] 91.8 fL Normal 77.0-99.0 [facility] Comment on above: Performed By: #### L [id number] ####Newscast Director: YOLETTE CROWE ([id number])[facility] (SBHLAB)[address] Monocytes (Bld) [#/Vol] 1.0 10*3/uL High 0.0-0.9 [facility] Comment on above: Performed By: #### L [id number] ####Newscast Director: YOLETTE CROWE ([id number])[facility] (SBHLAB)[address] Monocytes/100 WBC (Bld) 11.4 % Normal 5.0-13.0 [facility] Comment on above: Performed By: #### L [id number] ####Newscast Director: YOLETTE CROWE ([id number])[facility] (SBHLAB)[address] NEUTROPHILS ABSOLUTE 5.7 10*3/uL Normal 1.8-7.5 [facility] Comment on above: Performed By: #### L [id number] ####Newscast Director: YOLETTE CROWE ([id number])[facility] (SBHLAB)[address] Neutrophils/100 WBC (Bld) 64.3 % Normal 38.0-82.0 [facility] Comment on above: Performed By: #### L [id number] ####Newscast Director: YOLETTE CROWE ([id number])[facility] (SBHLAB)[address] NRBC 0.0 /100 WBCs Normal 0.0-2.0 [facility] Comment on above: Performed By: #### L [id number] ####Newscast Director: YOLETTE ZACHARIAHCER ([id number])[facility]ITALA [place] (SBHLAB)[address] Platelet mean volume (Bld) [Entitic vol] 9.5 fL Normal 9.0-12.7 [facility] Comment on above: Performed By: #### L [id number] ####Newscast Director: YOLETTE SEBASTIEN ([id number])[facility] HOS[facility]ITALA [place] (SBHLAB)[address] Platelets (Bld) [#/Vol] 277 10*3/uL Normal 140-440 [facility] Comment on above: Performed By: #### L [id number] ####Newscast Director: YOLETTE SEBASTIEN ([id number])[facility] HOS[facility]ITALA [place] (SBHLAB)[address] [place] [address] RBC (Bld) [#/Vol] 3.91 10*6/uL Normal 3.80-5.20 [facility] Comment on above: Performed By: #### L [id number] ####Newscast Director: YOLETTE SEBASTIEN ([id number])[facility]ITALA [place] (SBHLAB)[address] WBC (Bld) [#/Vol] 8.9 10*3/uL Normal 3.6-10.7 [facility] Comment on above: Performed By: #### L [id number] ####Newscast Director: YOLETTE TREVIZOGILBERT ([id number])[facility]ITALA [place] (SBHLAB)[address] COMPREHENSIVE METABOLIC PANE Aamir 07-11-2024 Albumin [Mass/Vol] 3.0 g/dL Low 3.4-4.8 [facility] Comment on above: Performed By: #### L AB17 #### Newscast Director: YOLETTE CROWE ([id number]) [facility]ITALA [place] (SBHLAB) [address] ALP [Catalytic activity/Vol] 55 U/L Normal 40-150 [facility] Comment on above: Performed By: #### L AB17 #### Newscast Director: YOLETTE CROWE ([id number]) [facility]ITALA [place] (SBHLAB) [address] [place] [address] [place] ALT [Catalytic activity/Vol] 10 U/L Normal <30 [facility] Comment on above: Performed By: #### L AB17 #### Newscast Director: YOLETTE CROWE ([id number]) [facility]ITALA [place] (SBHL[facility]) [address] Anion gap [Moles/Vol] 8 mmol/L Normal 3-13 [facility] Comment on above: Performed By: #### L AB17 #### Newscast Director: YOLETTE CROWE ([id number]) [facility]ITALA [facility]N (SBHLAB) [address] AST [Catalytic activity/Vol] 19 U/L Normal <34 [facility] Comment on above: Performed By: #### L AB17 #### Newscast Director: YOLETTE CROWE ([id number]) [facility]A [facility] (SB[facility]) [address] Bilirubin [Mass/Vol] 0.2 mg/dL Normal <1.2 [facility] Comment on above: Performed By: #### L AB17 #### Newscast Director: YOLETTE CROWE ([id number]) [facility]A [place] (SBHLAB) [address] Calcium [Mass/Vol] 8.5 mg/dL Low 8.8-10.0 [facility] Comment on above: Performed By: #### L AB17 #### Newscast Director: YOLETTE CROWE ([id number]) [facility]A [facility] (SBHLAB) [address] Chloride [Moles/Vol] 112 mmol/L High 98-107 [facility] Comment on above: Performed By: #### L AB17 #### Newscast Director: YOLETTE CROWE ([id number]) [facility] (SBHLAB) [address] CO2 [Moles/Vol] 20 mmol/L Low 23-31 [facility] Comment on above: Performed By: #### L AB17 #### Newscast Director: YOLETTE CROWE ([id number]) [facility] ([facility]) [address] Creatinine [Mass/Vol] 2.12 mg/dL High 0.57-1.11 [facility] Comment on above: Performed By: #### L AB17 #### Newscast Director: YOLETTE CROWE ([id number]) [facility] ([facility]) [address] GLOMERULAR FILTRATION RATE ML/MIN/1.73 SQ M.PREDICTED 25.9 mL/min/1.73m*2 Low >60.0 [facility] Comment on above: Result Comment: Calc ulation based on the Chronic Kidney Disease Epidemiology Collaboration (CKD-EPI) equation refit without adjustment for race Performed By: #### L AB17 #### Newscast Director: YOLETTE CROWE ([id number]) [facility] ([facility]) [address] Glucose [Mass/Vol] 120 mg/dL High 82-115 [facility] Comment on above: Performed By: #### L AB17 #### Newscast Director: YOLETTE CROWE ([id number]) [facility] ([facility]) [address] Potassium [Moles/Vol] 4.2 mmol/L Normal 3.5-5.1 [facility] Comment on above: Result Comment: [facility] potassium values may be up to 0.5 mmol/L lower than serum values. Performed By: #### L AB17 #### Newscast Director: YOLETTEFILIBERTO HENDRICKSAnselmoGILBERT ([id number]) [facility] ([facility]) [address] Protein [Mass/Vol] 6.5 g/dL Normal 6.4-8.3 [facility] Comment on above: Performed By: #### L AB17 #### Newscast Director: YOLETTE SEBASTIEN ([id number]) [facility] ([facility]) [address] Sodium [Moles/Vol] 140 mmol/L Normal 136-145 [facility] Comment on above: Performed By: #### L AB17 #### New[employer] Director: YOLETTE SEBASTIEN ([id number]) [facility] ([facility]) [address] Urea nitrogen [Mass/Vol] 48 mg/dL High 9-23 [facility] Comment on above: Performed By: #### L AB17 #### [employer] Director: YOLETTE HENDRICKSDANIEL ([id number]) [facility] ([facility]) [address] Nursing Noteon 07-11-2024 Nursing Note Report given to Alfreda wilcox at [facility]. All questions answered at this time. Normal [facility] Nursing Note Called report to [facility], Nurse not available to accept call. Will try again at another time. Normal [facility] Progress Noteon 07-11-2024 Progress Note Seen and examined. Doing well. D/w pt and SUNDEEP Morrissey, separately. Will discharge today. Normal [facility] Progress Note OCCUPATIONAL THERAPY [facility] Treatment Note Name/MRN: Cinthya Castillo ([id number]) Date of : 1960 Age: 63 y.o. Room/Bed: B4465/B4465 A Visit #: 1 out of 8 visits Discharge Recommendation: Home with [facility] Equipment Needed: No Prior Level of Function [...] still recommending pt to discharge back to [facility] with home health OT. Subjective Pt [...] Minutes (1 ADL, 1 ACT) ILYA Bourne/Jaky [facility] 30on 07-10-2024 30 Problem: Knowledge [...] alleviating factors Keep skin clean and dry [facility] 30 Problem: Knowledge Deficit Goal: Patient/family/caregiv er demonstrates understanding of disease process, treatment plan, medications, and discharge instructions Outcome: Progressing Problem: Potential for Compromised Skin Integrity Goal: Skin Integrity is Maintained or Improved Outcome: Progressing Goal: Nutritional status is improving Outcome: Progressing Problem: Urinary Incontinence Goal: Perineal skin integrity is maintained or improved Outcome: Progressing Normal [facility] [id number] 07-10-2024 [id number] Patient is from [facility], and was admitted with left leg cellulitis. Per Kristine at facility, she is a bedhold and is ok to return at discharge. She is currently receiving IV cefepime and vancomycin. PT/OT consulted. CM following to assist with discharge needs. [facility] [phone] Pt is on Medicaid an d from a facility ([facility]). If she returns, she will not need PASRR, per other social economist, Ricardo Brown. [facility] BASIC METABOLIC PANELon - Anion gap [Moles/Vol] 8 mmol/L Normal 3-13 [facility] Comment on above: Performed By: #### L AB15 ####Newscast Director: YOLETTE CROWE ([id number])[facility] (SBHLAB)[address] [place] [address] Calcium [Mass/Vol] 8.4 mg/dL Low 8.8-10.0 [facility] Comment on above: Performed By: #### L AB15 ####Newscast Director: YOLETTE CROWE ([id number])[facility] (SBHLAB)[address] Chloride [Moles/Vol] 114 mmol/L High 98-107 [facility] Comment on above: Performed By: #### L AB15 ####Newscast Director: YOLETTE CROWE ([id number])[facility] [place] (SBHLAB)[address] CO2 [Moles/Vol] 20 mmol/L Low 23-31 [facility] Comment on above: Performed By: #### L AB15 ####Newscast Director: YOLETTE CROWE ([id number])[facility] (SB[facility])[address] Creatinine [Mass/Vol] 2.13 mg/dL High 0.57-1.11 [facility] Comment on above: Performed By: #### L AB15 ####Newscast Director: YOLETTE TREVIZOGILBERT ([id number])[facility] (SB[facility])[address] GLOMERULAR FILTRATION RATE ML/MIN/1.73 SQ M.PREDICTED 25.8 mL/min/1.73m*2 Low >60.0 [facility] Comment on above: Result Comment: Calc ulation based on the Chronic Kidney Disease Epidemiology Collaboration (CKD-EPI) equation refit without adjustment for race Performed By: #### L AB15 ####Newscast Director: YOLETTE CROWE ([id number])[facility] [place] (SBHLAB)[address] Glucose [Mass/Vol] 150 mg/dL High 82-115 [facility] Comment on above: Performed By: #### L AB15 ####Newscast Director: YOLETTE TREVIZOGILBERT ([id number])[facility] (SBHLAB)[address] [place] [address] [place] Potassium [Moles/Vol] 4.8 mmol/L Normal 3.5-5.1 [facility] Comment on above: Result Comment: [facility] potassium values may be up to 0.5 mmol/L lower than serum values. Performed By: #### L AB15 ####Newscast Director: YOLETTE CROWE ([id number])[facility] (SB[facility])[address] [place] [address] Sodium [Moles/Vol] 142 mmol/L Normal 136-145 [facility] Comment on above: Performed By: #### L AB15 ####Newscast Director: YOLETTE CROWE ([id number])[facility] (SBHLAB)[address] [place] [address] Urea nitrogen [Mass/Vol] 54 mg/dL High 9-23 [facility] Comment on above: Performed By: #### L AB15 ####Newscast Director: YOLETTE CROWE ([id number])[facility] (SBHLAB)[address] [place] [address] CBC WITH AUTO DIFFERENTIALon 07-10-2024 Basophils (Bld) [#/Vol] 0.1 10*3/uL Normal 0.0-0.2 [facility] Comment on above: Performed By: #### L AB90 #### Newscast Director: LAURA BAUTISTA ([id number]) [facility] ([facility]) [address] [place] [address] Basophils/100 WBC (Bld) 0.7 % Normal 0.0-2.0 [facility] Comment on above: Performed By: #### L AB90 #### Newscast Director: LAURA BAUTISTA ([id number]) [facility] ([facility]) [address] [place] [address] Eosinophils (Bld) [#/Vol] 0.4 10*3/uL Normal 0.0-0.5 [facility] Comment on above: Performed By: #### L AB90 #### Newscast Director: LAURA BAUTISTA ([id number]) [facility] ([facility]) [address] [place] [address] [place] Eosinophils/100 WBC (Bld) 4.8 % Normal 0.0-6.0 [facility] Comment on above: Performed By: #### L AB90 #### Newscast Director: LAURA BAUTISTA ([id number]) [facility] ([facility]) [address] [place] [address] Erythrocyte distribution width (RBC) [Ratio] 12.9 % Normal 11.5-15.0 [facility] Comment on above: Performed By: #### L AB90 #### Newscast Director: LAURA BAUTISTA ([id number]) [facility]) [address] [place] [address] Hematocrit (Bld) [Volume fraction] 37.2 % Normal 35.0-47.0 [facility] Comment on above: Performed By: #### L AB90 #### Newscast Director: LAURA BAUTISTA ([id number]) [facility] ([facility]) [address] [place] [address] Hemoglobin (Bld) [Mass/Vol] 11.4 g/dL Low 11.7-16.0 [facility] Comment on above: Performed By: #### L AB90 #### Newscast Director: LAURA BAUTISTA ([id number]) [facility]) [address] [place] [address] IMMATURE GRANS % 0.6 % Normal 0.0-2.0 [facility] Comment on above: Performed By: #### L AB90 #### Newscast Director: LAURA BAUTISTA ([id number]) [facility]) [address] [place] [address] IMMATURE GRANS ABSOLUTE 0.1 10*3/uL High <0.1 [facility] Comment on above: Performed By: #### L AB90 #### Newscast Director: LAURA BAUTISTA ([id number]) [facility]) [address] [place] [address] Lymphocytes (Bld) [#/Vol] 1.9 10*3/uL Normal 1.0-4.3 [facility] Comment on above: Performed By: #### L AB90 #### Newscast Director: LAURA BAUTISTA ([id number]) [facility]) [address] [place] [address] Lymphocytes/100 WBC (Bld) 22.4 % Normal 15.0-45.0 [facility] Comment on above: Performed By: #### L AB90 #### Newscast Director: LAURA BAUTISTA ([id number]) [facility] ([facility]) [address] [place] [address] MCH (RBC) [Entitic mass] 28.5 pg Normal 26.0-34.0 [facility] Comment on above: Performed By: #### L AB90 #### Newscast Director: LAURA BAUTISTA ([id number]) [facility] ([facility]) [address] [place] [address] MCHC 30.6 % Normal 30.5-36.0 [facility] Comment on above: Performed By: #### L AB90 #### Newscast Director: LAURA BAUTISTA ([id number]) [facility]) [address] [place] [address] MCV (RBC) [Entitic vol] 93.0 fL Normal 77.0-99.0 [facility] Comment on above: Performed By: #### L AB90 #### Newscast Director: LAURA BAUTISTA ([id number]) [facility] ([facility]) [address] [place] [address] Monocytes (Bld) [#/Vol] 1.0 10*3/uL High 0.0-0.9 [facility] Comment on above: Performed By: #### L AB90 #### Newscast Director: LAURA BAUTISTA ([id number]) [facility] ([facility]) [address] [place] [address] Monocytes/100 WBC (Bld) 12.3 % Normal 5.0-13.0 [facility] Comment on above: Performed By: #### L AB90 #### Newscast Director: LAURA BAUTISTA ([id number]) [facility] ([facility]) [address] [place] [address] NEUTROPHILS ABSOLUTE 5.0 10*3/uL Normal 1.8-7.5 [facility] Comment on above: Performed By: #### L AB90 #### Newscast Director: LAURA BAUTISTA ([id number]) [facility] ([facility]) [address] [place] [address] Neutrophils/100 WBC (Bld) 59.2 % Normal 38.0-82.0 [facility] Comment on above: Performed By: #### L AB90 #### Newscast Director: LAURA BAUTISTA ([id number]) [facility] ([facility]) [address] [place] [address] NRBC 0.0 /100 WBCs Normal 0.0-2.0 [facility] Comment on above: Performed By: #### L AB90 #### Newscast Director: LAURA BAUTISTA ([id number]) [facility] ([facility]) [address] [place] [address] Platelet mean volume (Bld) [Entitic vol] 9.5 fL Normal 9.0-12.7 [facility] Comment on above: Performed By: #### L AB90 #### Newscast Director: LAURA BAUTISTA ([id number]) [facility] ([facility]) [address] [place] [address] Platelets (Bld) [#/Vol] 258 10*3/uL Normal 140-440 [facility] Comment on above: Performed By: #### L AB90 #### Newscast Director: LAURA BAUTISTA ([id number]) [facility] ([facility]) [address] [place] [address] RBC (Bld) [#/Vol] 4.00 10*6/uL Normal 3.80-5.20 [facility] Comment on above: Performed By: #### L AB90 #### Newscast Director: LAURA BAUTISTA ([id number]) [facility] ([facility]) [address] [place] [address] WBC (Bld) [#/Vol] 8.5 10*3/uL Normal 3.6-10.7 [facility] Comment on above: Performed By: #### L AB90 #### Newscast Director: LAURA BAUTISTA ([id number]) [facility]) [address] [place] [address] Consulton 07-10-2024 Consult Vancomycin therapy h as been discontinued by Dr. Sy on 07/10/24. Thank you for the consult. Pharmacy signing off for vancomycin dosing. Sandyhussain Ruiz [facility] Date: 07/10/24 Time: 12:02 PM Normal [facility] Consult [facility] Wound Care CONSULT Note Cinthya Castillo AGE: [...] 12/11/2022 Performed by Micheal Silva MD at [facility] END[facility]COPY FAMILY HISTORY Family History Problem [...] to follow Recommend to follow up at [facility] Outpatient wound care center after hospital discharge. Any questions or concerns please secure chat "[facility] wound/ostomy". Thank you for the consult! I pe (more content not included)... Normal [facility] Progress Noteon 07-10-2024 Progress Note -- Attestation signed by Benny Beltran OT at 07/10/2024 2:13 PM I certify that I was present during the entire session and guided the care given by the Student Occupational Therapist. Cosign: OCCUPATIONAL THERAPY [facility] Initial Evaluation Name/MRN: Cinthya Castillo ([id number]) Evaluation Date: 07/10/2024 Date of : 1960 Admission Date: 07/08/2024 7:50 PM Age: 63 y.o. Room/Bed: B4-465/B4-465 A Discharge Recommendation: Home with Home health [...] 12/11/2022 Performed by Micheal Silva MD at [address] ENDOSCOPY Admission Diagnosis: Patient Active Problem List Diagnosis Date Noted Left leg cellulitis 07/08/2024 Shortness of breath 09/07/2023 Chronic kidney disease 09/07/2023 Lightheadedness 07/18/2018 Abdominal pain, left lower quadrant 07/18/2018 Hypertension 07/17/2018 Type 2 diabetes mellitus with hyperglycemia, without long-term current use of insulin ([facility]) 07/17/2018 Nausea & vomiting 07/17/2018 Diabetes mellitus type 2 in obese ([facility]) 12/19/2017 Hypoglycemia 12/19/2017 Neuropathy 12/19/2017 Intertrigo 12/19/2017 [...] to Person Social/Functional History Patient admitted from [facility]. Assistive Equipment: front wheeled walker Prior [...] to c (more content not included)... Normal [facility] Progress Note Nutrition rescreen completed. Chart reviewed. Patient to be monitored and followed by the diet safety relief valve technician. Normal [facility] VANCOMYCIN, AUC TIMED DOSING on 07-10-2024 VANCOMYCIN, AUC 20.3 ug/mL Normal [facility] Comment on above: Result Comment: NICOLEE R COMMENTS: Please draw random level at least >2 hours after the end of the last vancomycin infusion, or 30-minutes before next infusion. Toxicity is seen at concentrations >80-100 ug/mL Therapeutic (Peak) range: 20-40 Therapeutic (Trough) range: 5-10 Performed By: #### L AB90 #### Newscast Director: LAURA BAUTISTA ([id number]) [facility] ([facility]) [address] [place] [address] CBC WITH AUTO DIFFERENTIALon 07-09-2024 Basophils (Bld) [#/Vol] 0.1 10*3/uL Normal 0.0-0.2 [facility] Comment on above: Performed By: #### L AB90 #### Newscast Director: LAURA BAUTISTA ([id number]) [facility]) [address] [place] [address] Basophils/100 WBC (Bld) 0.6 % Normal 0.0-2.0 [facility] Comment on above: Performed By: #### L AB90 #### Newscast Director: LAURA BAUTISTA ([id number]) [facility] ([facility]) [address] [place] [address] Eosinophils (Bld) [#/Vol] 0.3 10*3/uL Normal 0.0-0.5 [facility] Comment on above: Performed By: #### L AB90 #### Newscast Director: LAURA BAUTISTA ([id number]) [facility]) [address] [place] [address] Eosinophils/100 WBC (Bld) 4.0 % Normal 0.0-6.0 [facility] Comment on above: Performed By: #### L AB90 #### Newscast Director: LAURA BAUTISTA ([id number]) [facility]) [address] [place] [address] Erythrocyte distribution width (RBC) [Ratio] 13.4 % Normal 11.5-15.0 [facility] Comment on above: Performed By: #### L AB90 #### Newscast Director: LAURA BAUTISTA ([id number]) [facility]) [address] [place] [address] Hematocrit (Bld) [Volume fraction] 34.9 % Low 35.0-47.0 [facility] Comment on above: Performed By: #### L AB90 #### Newscast Director: LAURA BAUTISTA ([id number]) [facility]) [address] [place] [address] Hemoglobin (Bld) [Mass/Vol] 11.4 g/dL Low 11.7-16.0 [facility] Comment on above: Performed By: #### L AB90 #### Newscast Director: LAURA BAUTISTA ([id number]) [facility]) [address] [place] [address] IMMATURE GRANS % 0.5 % Normal 0.0-2.0 [facility] Comment on above: Performed By: #### L AB90 #### Newscast Director: LAURA BAUTISTA ([id number]) [facility]) [address] [place] [address] IMMATURE GRANS ABSOLUTE 0.0 10*3/uL Normal <0.1 [facility] Comment on above: Performed By: #### L AB90 #### Newscast Director: LAURA BAUTISTA ([id number]) [facility]) [address] [place] [address] Lymphocytes (Bld) [#/Vol] 2.1 10*3/uL Normal 1.0-4.3 [facility] Comment on above: Performed By: #### L AB90 #### Newscast Director: LAURA BAUTISTA ([id number]) [facility]) [address] [place] [address] Lymphocytes/100 WBC (Bld) 26.5 % Normal 15.0-45.0 [facility] Comment on above: Performed By: #### L AB90 #### Newscast Director: LAURA BAUTISTA ([id number]) [facility]) [address] [place] [address] MCH (RBC) [Entitic mass] 29.5 pg Normal 26.0-34.0 [facility] Comment on above: Performed By: #### L AB90 #### Newscast Director: LAURA BAUTISTA ([id number]) [facility] ([facility]) [address] [place] [address] MCHC 32.7 % Normal 30.5-36.0 [facility] Comment on above: Performed By: #### L AB90 #### Newscast Director: LAURA BAUTISTA ([id number]) [facility] ([facility]) [address] [place] [address] MCV (RBC) [Entitic vol] 90.2 fL Normal 77.0-99.0 [facility] Comment on above: Performed By: #### L AB90 #### Newscast Director: LAURA BAUTISTA ([id number]) [facility]) [address] [place] [address] Monocytes (Bld) [#/Vol] 1.0 10*3/uL High 0.0-0.9 [facility] Comment on above: Performed By: #### L AB90 #### Newscast Director: LAURA BAUTISTA ([id number]) [facility] ([facility]) [address] [place] [address] Monocytes/100 WBC (Bld) 13.1 % High 5.0-13.0 [facility] Comment on above: Performed By: #### L AB90 #### Newscast Director: LAURA BAUTISTA ([id number]) [facility] ([facility]) [address] [place] [address] NEUTROPHILS ABSOLUTE 4.3 10*3/uL Normal 1.8-7.5 [facility] Comment on above: Performed By: #### L AB90 #### Newscast Director: LAURA BAUTISTA ([id number]) [facility] ([facility]) [address] [place] [address] Neutrophils/100 WBC (Bld) 55.3 % Normal 38.0-82.0 [facility] Comment on above: Performed By: #### L AB90 #### Newscast Director: LAURA BAUTISTA ([id number]) [facility] ([facility]) [address] [place] [address] NRBC 0.0 /100 WBCs Normal 0.0-2.0 [facility] Comment on above: Performed By: #### L AB90 #### Newscast Director: LAURA BAUTISTA ([id number]) [facility] ([facility]) [address] [place] [address] Platelet mean volume (Bld) [Entitic vol] 10.7 fL Normal 9.0-12.7 [facility] Comment on above: Performed By: #### L AB90 #### Newscast Director: LAURA BAUTISTA ([id number]) [facility] ([facility]) [address] [place] [address] Platelets (Bld) [#/Vol] 376 10*3/uL Normal 140-440 [facility] Comment on above: Performed By: #### L AB90 #### Newscast Director: LAURA BAUTISTA ([id number]) [facility] ([facility]) [address] [place] [address] RBC (Bld) [#/Vol] 3.87 10*6/uL Normal 3.80-5.20 [facility] Comment on above: Performed By: #### L AB90 #### Newscast Director: LAURA BAUTISTA ([id number]) [facility] ([facility]) [address] [place] [address] WBC (Bld) [#/Vol] 7.8 10*3/uL Normal 3.6-10.7 [facility] Comment on above: Performed By: #### L AB90 #### Newscast Director: LAURA BAUTISTA ([id number]) [facility] ([facility]) [address] [place] [address] COMPREHENSIVE METABOLIC PANE Aamir 07-09-2024 Albumin [Mass/Vol] 3.3 g/dL Low 3.4-4.8 [facility] Comment on above: Performed By: #### L AB17, [id number] ####Newscast Director: YOLETTE CROWE ([id number])[facility] (SBHLAB)[address] ALP [Catalytic activity/Vol] 59 U/L Normal 40-150 [facility] Comment on above: Performed By: #### Jaky CHAUHAN, [id number] ####Newscast Director: YOLETTE CROWE ([id number])[facility] [place] (SB[facility])[address] ALT [Catalytic activity/Vol] 11 U/L Normal <30 [facility] Comment on above: Performed By: #### Jaky CHAUHAN, [id number] ####Newscast Director: YOLETTE CROWE ([id number])[facility] [place] (SB[facility])[address] Anion gap [Moles/Vol] 8 mmol/L Normal 3-13 [facility] Comment on above: Performed By: #### Jaky CHAUHAN, [id number] ####Newscast Director: YOLETTE CROWE ([id number])[facility] [place] (SB[facility])[address] AST [Catalytic activity/Vol] 20 U/L Normal <34 [facility] Comment on above: Performed By: #### Jaky CHAUHAN, [id number] ####Newscast Director: YOLETTE CROWE ([id number])[facility] [place] (SB[facility])[address] Bilirubin [Mass/Vol] 0.3 mg/dL Normal <1.2 [facility] Comment on above: Performed By: #### Jaky CHAUHAN, [id number] ####Newscast Director: YOLETTE CROWE ([id number])[facility] [place] ([facility])[address] Calcium [Mass/Vol] 8.4 mg/dL Low 8.8-10.0 [facility] Comment on above: Performed By: #### Jaky AB17, [id number] ####Newscast Director: YOLETET CROWE ([id number])[facility] [place] (SB[facility])[address] [place] [address] [place] Chloride [Moles/Vol] 112 mmol/L High 98-107 [facility] Comment on above: Performed By: #### L AB17, [id number] ####Newscast Director: YOLETTE CROWE ([id number])[facility] (SB[facility])[address] CO2 [Moles/Vol] 22 mmol/L Low 23-31 [facility] Comment on above: Performed By: #### Jaky AB17, [id number] ####Newscast Director: YOLETTE CROWE ([id number])[facility] (SBHL[facility])[address] Creatinine [Mass/Vol] 2.37 mg/dL High 0.57-1.11 [facility] Comment on above: Performed By: #### Jaky HOLT17, [id number] ####Newscast Director: YOLETTE CROWE ([id number])[facility] (HLAB)[address] GLOMERULAR FILTRATION RATE ML/MIN/1.73 SQ M.PREDICTED 22.7 mL/min/1.73m*2 Low >60.0 [facility] Comment on above: Result Comment: Calc ulation based on the Chronic Kidney Disease Epidemiology Collaboration (CKD-EPI) equation refit without adjustment for race Performed By: #### Jaky HOLT17, [id number] ####Newscast Director: YOLETTE CROWE ([id number])[facility] (SB[facility])[address] Glucose [Mass/Vol] 227 mg/dL High 82-115 [facility] Comment on above: Performed By: #### L AB17, [id number] ####Newscast Director: YOLETTE CROWE ([id number])[facility] (HLAB)[address] Potassium [Moles/Vol] 4.6 mmol/L Normal 3.5-5.1 [facility] Comment on above: Result Comment: [facility] potassium values may be up to 0.5 mmol/L lower than serum values. Performed By: #### L AB17, [id number] ####Newscast Director: YOLETTE CROWE ([id number])[facility] ([facility])[address] Protein [Mass/Vol] 6.5 g/dL Normal 6.4-8.3 [facility] Comment on above: Performed By: #### L AB17, [id number] ####Newscast Director: YOLETTE CROWE ([id number])[facility] [place] (SBHLAB)[address] Sodium [Moles/Vol] 142 mmol/L Normal 136-145 [facility] Comment on above: Performed By: #### L AB17, [id number] ####Newscast Director: YOLETTE CROWE ([id number])[facility] ([facility])[address] [place] [address] Urea nitrogen [Mass/Vol] 58 mg/dL High 9-23 [facility] Comment on above: Performed By: #### L AB17, [id number] ####Newscast Director: YOLETTE CROWE ([id number])[facility] ([facility] [place] [address] Consulton 07-09-2024 Consult Pharmacy Managed Vancomycin Dosing [...] creatinine, and vancomycin levels interfaced automatically to [employer] and data has been analyzed and interpreted. [...] PharmD Clinical Pharmacist Available via Secure Chat [facility] ECG 12-LEADon 07-09-2024 ECG 12-LEAD IMPRESSION: Sinus rhythm Inferior infarct, old Compared to ECG 07/03/24 at 1914 No significant change Electronically Signed On 07-09-2024 00:52:11 EDT by Grzegorz Guillen [facility] HIGH SENSITIVITY TROPONIN, S ERIAL BASELINEon 07-09-2024 TROPONIN HS SERIAL BASELINE 6 ng/L Normal <=14 [facility] Comment on above: Result Comment: In i ndividuals presenting with symptoms > 2h, a baseline troponin <= 5 ng/L suggests acute cardiac injury is unlikely and further serial testing is generally not indicated. Performed By: #### L AB17, [id number] ####Newscast Director: YOLETTE CROWE ([id number])[facility] ([facility])[address] [place] [address] HIGH SENSITIVITY TROPONIN, S ERIAL, SECOND TESTon 07-09-2024 2H TROPONIN HS (SERIAL 2ND TROPONIN) 7 ng/L Normal <=14 [facility] Comment on above: Result Comment: 2h t roponin (2nd troponin) samples collected between 1h 40 min and 2h and 20 min of the baseline collection time can be utilized to interpret delta troponins as per [facility] algorithms. Samples collected outside this timeframe need to be interpreted clinically. Rising or falling troponin delta below 2 ng/L as compared to baseline value suggests that acute cardiac injury is unlikely. Performed By: #### L AB90 #### Newscast Director: LAURA BAUTISTA ([id number]) [facility] ([facility]) [address] [place] [address] 2H TROPONIN HS (SERIAL 2ND TROPONIN) 6 ng/L Normal <=14 [facility] Comment on above: Result Comment: Risi ng or falling troponin delta below 2 ng/L as compared to baseline value suggests that acute cardiac injury is unlikely. Performed By: #### L AB90 #### Newscast Director: LAURA BAUTISTA ([id number]) [facility] ([facility]) [address] [place] [address] CBC WITH AUTO DIFFERENTIALon 07-08-2024 Basophils (Bld) [#/Vol] 0.0 10*3/uL Normal 0.0-0.2 [facility] Comment on above: Performed By: #### L AB90 #### Newscast Director: LAURA BAUTISTA ([id number]) [facility] ([facility]) [address] [place] [address] Basophils/100 WBC (Bld) 0.5 % Normal 0.0-2.0 [facility] Comment on above: Performed By: #### L AB90 #### Newscast Director: LAURA BAUTISTA ([id number]) [facility] ([facility]) [address] [place] [address] Eosinophils (Bld) [#/Vol] 0.3 10*3/uL Normal 0.0-0.5 [facility] Comment on above: Performed By: #### L AB90 #### Newscast Director: LAURA BAUTISTA ([id number]) [facility]) [address] [place] [address] Eosinophils/100 WBC (Bld) 3.5 % Normal 0.0-6.0 [facility] Comment on above: Performed By: #### L AB90 #### Newscast Director: LAURA BAUTISTA ([id number]) [facility]) [address] [place] [address] Erythrocyte distribution width (RBC) [Ratio] 13.1 % Normal 11.5-15.0 [facility] Comment on above: Performed By: #### L AB90 #### Newscast Director: LAURA BAUTISTA ([id number]) [facility]) [address] [place] [address] Hematocrit (Bld) [Volume fraction] 37.2 % Normal 35.0-47.0 [facility] Comment on above: Performed By: #### L AB90 #### Newscast Director: LAURA BAUTISTA ([id number]) [facility]) [address] [place] [address] Hemoglobin (Bld) [Mass/Vol] 12.2 g/dL Normal 11.7-16.0 [facility] Comment on above: Performed By: #### L AB90 #### Newscast Director: LAURA BAUTISTA ([id number]) [facility]) [address] [place] [address] IMMATURE GRANS % 0.6 % Normal 0.0-2.0 [facility] Comment on above: Performed By: #### L AB90 #### Newscast Director: LAURA BAUTISTA ([id number]) [facility]) [address] [place] [address] IMMATURE GRANS ABSOLUTE 0.1 10*3/uL High <0.1 [facility] Comment on above: Performed By: #### L AB90 #### Newscast Director: LAURA BAUTISTA ([id number]) [facility] ([facility]) [address] [place] [address] Lymphocytes (Bld) [#/Vol] 2.2 10*3/uL Normal 1.0-4.3 [facility] Comment on above: Performed By: #### L AB90 #### Newscast Director: LAURA BAUTISTA ([id number]) [facility] ([facility]) [address] [place] [address] Lymphocytes/100 WBC (Bld) 28.6 % Normal 15.0-45.0 [facility] Comment on above: Performed By: #### L AB90 #### Newscast Director: LAURA BAUTISTA ([id number]) [facility] ([facility]) [address] [place] [address] MCH (RBC) [Entitic mass] 29.5 pg Normal 26.0-34.0 [facility] Comment on above: Performed By: #### L AB90 #### Newscast Director: LAURA BAUTISTA ([id number]) [facility] ([facility]) [address] [place] [address] MCHC 32.8 % Normal 30.5-36.0 [facility] Comment on above: Performed By: #### L AB90 #### Newscast Director: LAURA BAUTISTA ([id number]) [facility]) [address] [place] [address] MCV (RBC) [Entitic vol] 89.9 fL Normal 77.0-99.0 [facility] Comment on above: Performed By: #### L AB90 #### Newscast Director: LAURA BAUTISTA ([id number]) [facility]) [address] [place] [address] Monocytes (Bld) [#/Vol] 1.1 10*3/uL High 0.0-0.9 [facility] Comment on above: Performed By: #### L AB90 #### Newscast Director: LAURA BAUTISTA ([id number]) [facility] [address] [place] [address] Monocytes/100 WBC (Bld) 13.6 % High 5.0-13.0 [facility] Comment on above: Performed By: #### L AB90 #### Newscast Director: LAURA BAUTISTA ([id number]) [facility] ([facility]) [address] [place] [address] NEUTROPHILS ABSOLUTE 4.2 10*3/uL Normal 1.8-7.5 [facility] Comment on above: Performed By: #### L AB90 #### Newscast Director: LAURA BAUTISTA ([id number]) [facility] ([facility]) [address] [place] [address] Neutrophils/100 WBC (Bld) 53.2 % Normal 38.0-82.0 [facility] Comment on above: Performed By: #### L AB90 #### Newscast Director: LAURA BAUTISTA ([id number]) [facility]) [address] [place] [address] NRBC 0.0 /100 WBCs Normal 0.0-2.0 [facility] Comment on above: Performed By: #### L AB90 #### Newscast Director: LAURA BAUTISTA ([id number]) [facility] ([facility]) [address] [place] [address] Platelet mean volume (Bld) [Entitic vol] 9.5 fL Normal 9.0-12.7 [facility] Comment on above: Result Comment: MPV is a calculated measurement using platelet volume ratio Performed By: #### L AB90 #### Newscast Director: LAURA BAUTISTA ([id number]) [facility] ([facility]) [address] [place] [address] [place] Platelets (Bld) [#/Vol] 314 10*3/uL Normal 140-440 [facility] Comment on above: Performed By: #### L AB90 #### Newscast Director: LAURA BAUTISTA ([id number]) [facility] ([facility]) [address] [place] [address] [place] RBC (Bld) [#/Vol] 4.14 10*6/uL Normal 3.80-5.20 [facility] Comment on above: Performed By: #### L AB90 #### Newscast Director: LAURA BAUTISTA ([id number]) [facility] ([facility]) [address] [place] [address] WBC (Bld) [#/Vol] 7.8 10*3/uL Normal 3.6-10.7 [facility] Comment on above: Performed By: #### L AB90 #### Newscast Director: LAURA BAUTISTA ([id number]) [facility] ([facility]) [address] [place] [address] COMPREHENSIVE METABOLIC PANE Aamir 07-08-2024 Albumin [Mass/Vol] 3.5 g/dL Normal 3.4-4.8 [facility] Comment on above: Performed By: #### L AB90 #### Newscast Director: LAURA BAUTISTA ([id number]) [facility] ([facility]) [address] [place] [address] ALP [Catalytic activity/Vol] 66 U/L Normal 40-150 [facility] Comment on above: Performed By: #### L AB90 #### Newscast Director: LAURA BAUTISTA ([id number]) [facility] ([facility]) [address] [place] [address] ALT [Catalytic activity/Vol] 18 U/L Normal <30 [facility] Comment on above: Performed By: #### L AB90 #### Newscast Director: LAURA BAUTISTA ([id number]) [facility] ([facility]) [address] [place] [address] Anion gap [Moles/Vol] 10 mmol/L Normal 3-13 [facility] Comment on above: Performed By: #### L AB90 #### Newscast Director: LAURA BAUTISTA ([id number]) [facility] ([facility]) [address] [place] [address] AST [Catalytic activity/Vol] 23 U/L Normal <34 [facility] Comment on above: Performed By: #### L AB90 #### Newscast Director: LAURA BAUTISTA ([id number]) [facility]) [address] [place] [address] Bilirubin [Mass/Vol] 0.3 mg/dL Normal <1.2 [facility] Comment on above: Performed By: #### L AB90 #### Newscast Director: LAURA BAUTISTA ([id number]) [facility]) [address] [place] [address] Calcium [Mass/Vol] 8.8 mg/dL Normal 8.8-10.0 [facility] Comment on above: Performed By: #### L AB90 #### Newscast Director: LAURA BAUTISTA ([id number]) [facility]) [address] [place] [address] Chloride [Moles/Vol] 110 mmol/L High 98-107 [facility] Comment on above: Performed By: #### L AB90 #### Newscast Director: LAURA BAUTISTA ([id number]) [facility] ([facility]) [address] [place] [address] [place] CO2 [Moles/Vol] 21 mmol/L Low 23-31 [facility] Comment on above: Performed By: #### L AB90 #### Newscast Director: LAURA BAUTISTA ([id number]) [facility] ([facility]) [address] [place] [address] [place] Creatinine [Mass/Vol] 2.59 mg/dL High 0.57-1.11 [facility] Comment on above: Performed By: #### L AB90 #### Newscast Director: LAURA BAUTISTA ([id number]) [facility] ([facility]) [address] [place] [address] [place] GLOMERULAR FILTRATION RATE ML/MIN/1.73 SQ M.PREDICTED 20.4 mL/min/1.73m*2 Low >60.0 [facility] Comment on above: Result Comment: Calc ulation based on the Chronic Kidney Disease Epidemiology Collaboration (CKD-EPI) equation refit without adjustment for race Performed By: #### L AB90 #### Newscast Director: LAURA BAUTISTA ([id number]) [facility] ([facility]) [address] [place] [address] [place] Glucose [Mass/Vol] 242 mg/dL High 82-115 [facility] Comment on above: Performed By: #### L AB90 #### Newscast Director: LAURA BAUTISTA ([id number]) [facility] ([facility]) [address] [place] [address] Potassium [Moles/Vol] 4.8 mmol/L Normal 3.5-5.1 [facility] Comment on above: Result Comment: [facility] potassium values may be up to 0.5 mmol/L lower than serum values. Performed By: #### L AB90 #### Newscast Director: LAURA BAUTITSA ([id number]) [facility] ([facility]) [address] [place] [address] Protein [Mass/Vol] 7.3 g/dL Normal 6.4-8.3 [facility] Comment on above: Performed By: #### L AB90 #### Newscast Director: LAURA BAUTISTA ([id number]) [facility] ([facility]) [address] [place] [address] [place] Sodium [Moles/Vol] 141 mmol/L Normal 136-145 [facility] Comment on above: Performed By: #### L AB90 #### Newscast Director: LAURA BAUTISTA ([id number]) [facility] ([facility]) [address] [place] [address] Urea nitrogen [Mass/Vol] 59 mg/dL High 9-23 [facility] Comment on above: Performed By: #### L AB90 #### Newscast Director: LAURA BAUTISTA ([id number]) [facility] ([facility]) [address] [place] [address] ED Nursing Noteon 07-08-2024 ED Nursing Note Called report to Iesha on [address]. Normal [facility] ED Provider Noteon ED Provider Note Emergency Department Encounter [facility] ED Patient: Cinthya Castillo : 1960 Date of Evaluation: 07/08/2024 ED Provider: Grzegorz Guillen, Chief Complaint Chief Complaint Patient presents with ? Chest Pain Pt c/o chest pain and shortness of breath for approx 2 hours ? Shortness of Breath ? Wound Check Pt has a wound to the left lower leg she would like evaluated MAURA Mendes Dia Castillo is a 63 y.o. female who [...] 12/11/2022 Performed by Micheal Silva MD at [address] ENDOSCOPY Social History Socioeconomic History ? [...] lead Collectio (more content not included)... Normal [facility] HIGH SENSITIVITY TROPONIN, S ERIAL BASELINEon 07-08-2024 TROPONIN HS SERIAL BASELINE 5 ng/L Normal <=14 [facility] Comment on above: Result Comment: In i ndividuals presenting with symptoms > 2h, a baseline troponin <= 5 ng/L suggests acute cardiac injury is unlikely and further serial testing is generally not indicated. Performed By: #### L AB90 #### Newscast Director: LAURA BAUTISTA ([id number]) [facility] ([facility]) [address] [place] [address] HIGH SENSITIVITY TROPONIN, S ERIAL, SECOND TESTon 07-08-2024 2H TROPONIN HS (SERIAL 2ND TROPONIN) 6 ng/L Normal <=14 [facility] Comment on above: Result Comment: Risi ng or falling troponin delta below 2 ng/L as compared to baseline value suggests that acute cardiac injury is unlikely. Performed By: #### L [id number] ####Newscast Director: LAURA BAUTISTA ([id number])[facility] [place] [address] NT PRO BNPon 07-08-2024 Natriuretic peptide B (Bld) [Mass/Vol] 116 pg/mL Normal <125 [facility] Comment on above: Performed By: #### L AB90 #### Newscast Director: LAURA BAUTISTA ([id number]) [facility] ([facility]) [address] [place] [address] Anion gap in Serum or Plasma Ordered By: Lex Roca on 07-04-2024 Anion gap [Moles/Vol] 12 mmol/L 08-03 [facility] BUN/creatinine ratioOrdered By: Lex Roca on 07-04-2024 Urea nitrogen/Creatinine [Mass ratio] 23.6 mg/mg High 01-08 [facility] Bilirubin, totalOrdered By: Lex Roca on 07-04-2024 Bilirubin [Mass/Vol] 0.32 mg/dL 0.00-1.30 [facility] Carbon dioxide, total [Moles /volume] in Central venous bloodOrdered By: Lex Roca on 07-04-2024 CO2 [Moles/Vol] 20.5 mmol/L Low 21.0-32.0 [facility] Chloride assayOrdered By: Sony Roca on 07-04-2024 Chloride [Moles/Vol] 108 mmol/L 98-108 [facility] ECG 12-LEADon 07-04-2024 ECG 12-LEAD IMPRESSION: Sinus rhythm Inferior infarct, old Electronically Signed On 07-04-2024 01:40:59 EDT by Mari Chen [facility] Erythrocyte distribution wid th ratioOrdered By: Lex Roca on 07-04-2024 Erythrocyte distribution width (RBC) [Ratio] 13.2 % 11.6-14.6 [facility] Erythrocyte distribution wid th standard deviationOrdered By: Lex Roca on 07-04-2024 Erythrocyte distribution width (RBC) [Ratio] 43.6 fl 35.1-43.9 [facility] Glomerular filtration rate ( GFR) estimation/1.73 sq m using serum, plasma, or whole bOrdered By: Lex Roca on 07-04-2024 GFR/1.73 sq M.predicted among non-blacks MDRD (S/P/Bld) [Vol rate/Area] 24 mL/min/{1.73_m2} Low >60 [facility] Comment on above: mL/min/1.73m2 CKD-EP I Creatinine Equation (2020) Hematocrit Auto (Bld) [Volum e fraction]Ordered By: Lex Roca on 07-04-2024 Hematocrit (Bld) [Volume fraction] 36.5 % Low 37-47 [facility] Hemoglobin measurementOrdere d By: Lex Roca on 07-04-2024 Hemoglobin (Bld) [Mass/Vol] 11.9 g/dL Low 12.0-15.0 [facility] Laboratory - Chemistry and C hemistry - challengeOrdered By: Lex Roca on 07-04-2024 AST [Catalytic activity/Vol] 23 U/L <32 [facility] MCV (mean corpuscular volume ) determinationOrdered By: Lex Roca on 07-04-2024 MCV (RBC) [Entitic vol] 91.0 fL 81-99 [facility] Mean corpuscular hemoglobin (MCH) determinationOrdered By: Lex Roca on 07-04-2024 MCH (RBC) [Entitic mass] 29.7 pg 27.0-32.0 [facility] Mean corpuscular hemoglobin concentration (MCHC) determinationOrdered By: Lex Roca on 07-04-2024 MCHC (RBC) [Mass/Vol] 32.6 g/dL 32-36 [facility] Mean platelet volume determi nationOrdered By: Lex Roca on 07-04-2024 Platelet mean volume (Bld) [Entitic vol] 9.8 fL 6.2-12.0 [facility] Natriuretic peptide.B prohor ace N-Terminal [Mass/volume] in Serum or PlasmaOrdered By: Lex Roca on 07-04-2024 Natriuretic peptide.B prohormone N-Terminal [Mass/Vol] 357 pg/mL <900 [facility] Comment on above: Heart Failure Unlike ly: < 300 pg/mLHeart Failure Likely< 50 Years: > 450 pg/mL50-75 Years: > 900 pg/mL>75 Years: > 1800 pg/mL Platelet countOrdered By: Sony Roca on 07-04-2024 Platelets (Bld) [#/Vol] 297 10*3/uL 150-450 [facility] Potassium measurement (mass/ volume)Ordered By: Lex Roca on 07-04-2024 Potassium (Unsp spec) [Mass/Vol] 4.3 mmol/L 3.3-5.1 [facility] RBC Auto (Bld) [#/Vol]Ordere d By: Lex Roca on 07-04-2024 RBC (Bld) [#/Vol] 4.01 10*6/uL Low 4.2-5.4 [facility] Serum creatinine measurement (mass/volume)Ordered By: Lex Roca on 07-04-2024 Creatinine [Mass/Vol] 2.22 mg/dL High 0.70-1.20 [facility] Serum globulin measurementOr dered By: Lex Roca on 07-04-2024 Globulin (S) [Mass/Vol] 3.4 g/dL 2.2-4.2 [facility] Serum glucose measurement (m ass/volume)Ordered By: Lex Roca on 07-04-2024 Glucose [Mass/Vol] 88 mg/dL 70-99 [facility] Serum or plasma alanine daily otransferase (ALT) measurementOrdered By: Lex Roca on 07-04-2024 ALT [Catalytic activity/Vol] 10 U/L <35 [facility] Serum or plasma albumin aba urement (mass/volume)Ordered By: Lex Roca on 07-04-2024 Albumin [Mass/Vol] 3.6 g/dL 3.4-4.8 [facility] Serum or plasma albumin/glob ulin mass ratioOrdered By: Lex Roca on 07-04-2024 Albumin/Globulin [Mass ratio] 1.1 {ratio} 0.9-2.4 [facility] Serum or plasma alkaline tamir sphatase measurementOrdered By: Lex Roca on 07-04-2024 ALP [Catalytic activity/Vol] 66 U/L 35-104 [facility] Serum or plasma calcium aba urement (mass/volume)Ordered By: Lex Roca on 07-04-2024 Calcium [Mass/Vol] 9.0 mg/dL 7.6-11.0 [facility] Serum or plasma urea nitroge n measurement (mass/volume)Ordered By: Lex Roca on 07-04-2024 Urea nitrogen [Mass/Vol] 52 mg/dL High 4-19 [facility] Sodium levelOrdered By: Iban Roca on 07-04-2024 Sodium [Moles/Vol] 141 mmol/L 133-145 [facility] Total proteinOrdered By: Tony Roca on 07-04-2024 Protein [Mass/Vol] 7.0 g/dL 5.9-8.4 [facility] Troponin T.cardiac [Mass/vol ume] in Serum or Plasma by High sensitivity methodOrdered By: Lex Roca on 07-04-2024 Troponin T.cardiac High sensitivity method [Mass/Vol] 33 ng/L High <14 [facility] White blood cell (WBC) count Ordered By: Lex Roca on 07-04-2024 WBC (Bld) [#/Vol] 7.5 10*3/uL 4.4-11.0 [facility] BASIC METABOLIC PANELon 06-20 Anion gap [Moles/Vol] 10 mmol/L Normal 3-13 [facility] Comment on above: Performed By: #### L AB90 #### Newscast Director: LAURA BAUTISTA ([id number]) [facility] [address] [place] [address] Calcium [Mass/Vol] 8.7 mg/dL Low 8.8-10.0 [facility] Comment on above: Performed By: #### L AB90 #### Newscast Director: LAURA BAUTISTA ([id number]) [facility]) [address] [place] [address] Chloride [Moles/Vol] 112 mmol/L High 98-107 [facility] Comment on above: Performed By: #### L AB90 #### Newscast Director: LAURA BAUTISTA ([id number]) [facility] [address] [place] [address] CO2 [Moles/Vol] 19 mmol/L Low 23-31 [facility] Comment on above: Performed By: #### L AB90 #### Newscast Director: LAURA BAUTISTA ([id number]) [facility] [address] [place] [address] Creatinine [Mass/Vol] 2.14 mg/dL High 0.57-1.11 [facility] Comment on above: Performed By: #### L AB90 #### Newscast Director: LAURA BAUTISTA ([id number]) [facility]) [address] [place] [address] GLOMERULAR FILTRATION RATE ML/MIN/1.73 SQ M.PREDICTED 25.6 mL/min/1.73m*2 Low >60.0 [facility] Comment on above: Result Comment: Calc ulation based on the Chronic Kidney Disease Epidemiology Collaboration (CKD-EPI) equation refit without adjustment for race Performed By: #### L AB90 #### Newscast Director: LAURA BAUTISTA ([id number]) [facility]) [address] [place] [address] Glucose [Mass/Vol] 121 mg/dL High 82-115 [facility] Comment on above: Performed By: #### L AB90 #### Newscast Director: LAURA BAUTISTA ([id number]) [facility]) [address] [place] [address] Potassium [Moles/Vol] 5.1 mmol/L Normal 3.5-5.1 [facility] Comment on above: Result Comment: [facility] potassium values may be up to 0.5 mmol/L lower than serum values. Performed By: #### L AB90 #### Newscast Director: LAURA BAUTISTA ([id number]) [facility] ([facility]) [address] [place] [address] Sodium [Moles/Vol] 141 mmol/L Normal 136-145 [facility] Comment on above: Performed By: #### L [id number] #### Newscast Director: LAURA BAUTISTA ([phone]) [facility]) [address] [place] [address] Urea nitrogen [Mass/Vol] 58 mg/dL High 9-23 [facility] Comment on above: Performed By: #### L [id number] #### Newscast Director: LAURA BAUTISTA ([id number]) [facility]) [address] [place] [address] CBC WITH AUTO DIFFERENTIALon 07-03-2024 Basophils (Bld) [#/Vol] 0.1 10*3/uL Normal 0.0-0.2 [facility] Comment on above: Performed By: #### L [id number] ####Newscast Director: LAURA BAUTISTA ([id number])[facility] ([facility])[address] [place] [address] Basophils/100 WBC (Bld) 0.6 % Normal 0.0-2.0 [facility] Comment on above: Performed By: #### L [id number] ####Newscast Director: LAURA BAUTISTA ([id number])[facility] ([facility])[address] [place] [address] Eosinophils (Bld) [#/Vol] 0.3 10*3/uL Normal 0.0-0.5 [facility] Comment on above: Performed By: #### L [id number] ####Newscast Director: LAURA BAUTISTA ([id number])[facility] ([facility])[address] [place] [address] Eosinophils/100 WBC (Bld) 3.0 % Normal 0.0-6.0 [facility] Comment on above: Performed By: #### L [id number] ####Newscast Director: LAURA BAUTISTA ([id number])[facility] ([facility])[address] [place] [address] Erythrocyte distribution width (RBC) [Ratio] 13.1 % Normal 11.5-15.0 [facility] Comment on above: Performed By: #### L [id number] ####Newscast Director: LAURA BAUTISTA ([id number])[facility] ([facility])[address] [place] [address] Hematocrit (Bld) [Volume fraction] 36.5 % Normal 35.0-47.0 [facility] Comment on above: Performed By: #### L [id number] ####Newscast Director: LAURA BAUTISTA ([id number])[facility] ([facility])[address] [place] [address] Hemoglobin (Bld) [Mass/Vol] 11.6 g/dL Low 11.7-16.0 [facility] Comment on above: Performed By: #### L [id number] ####Newscast Director: LAURA BAUTISTA ([id number])[facility] ([facility])[address] IMMATURE GRANS % 0.2 % Normal 0.0-2.0 [facility] Comment on above: Performed By: #### L [id number] ####Newscast Director: LAURA BAUTISTA ([id number])[facility] ([facility])[address] [place] [address] IMMATURE GRANS ABSOLUTE 0.0 10*3/uL Normal <0.1 [facility] Comment on above: Performed By: #### L [id number] ####Newscast Director: LAURA BAUTISTA ([id number])[facility] ([facility])[address] [place] [address] Lymphocytes (Bld) [#/Vol] 2.1 10*3/uL Normal 1.0-4.3 [facility] Comment on above: Performed By: #### L [id number] ####Newscast Director: LAURA BAUTISTA ([id number])[facility] ([facility])[address] [place] [address] Lymphocytes/100 WBC (Bld) 22.7 % Normal 15.0-45.0 [facility] Comment on above: Performed By: #### L [id number] ####Newscast Director: LAURA BAUTISTA ([id number])[facility] ([facility])[address] [place] [address] MCH (RBC) [Entitic mass] 28.7 pg Normal 26.0-34.0 [facility] Comment on above: Performed By: #### L [id number] ####Newscast Director: LAURA BAUTISTA ([id number])[facility] ([facility])[address] [place] [address] MCHC 31.8 % Normal 30.5-36.0 [facility] Comment on above: Performed By: #### L [id number] ####Newscast Director: LAURA BAUTISTA ([id number])[facility]ITAL[facility] ([facility])[address] [place] [address] [place] MCV (RBC) [Entitic vol] 90.3 fL Normal 77.0-99.0 [facility] Comment on above: Performed By: #### L [id number] ####Newscast Director: LAURA BAUTISTA ([id number])[facility] ([facility])[address] [place] [address] [place] Monocytes (Bld) [#/Vol] 0.8 10*3/uL Normal 0.0-0.9 [facility] Comment on above: Performed By: #### L [id number] ####Newscast Director: LAURA BAUTISTA ([id number])[facility] ([facility])[address] [place] [address] [place] Monocytes/100 WBC (Bld) 9.0 % Normal 5.0-13.0 [facility] Comment on above: Performed By: #### L [id number] ####Newscast Director: LAURA BAUTISTA ([id number])[facility] ([facility])[address] [place] [address] [place] NEUTROPHILS ABSOLUTE 6.1 10*3/uL Normal 1.8-7.5 [facility] Comment on above: Performed By: #### L [id number] ####Newscast Director: LAURA BAUTISTA ([id number])[facility] ([facility])[address] [place] [address] [place] Neutrophils/100 WBC (Bld) 64.5 % Normal 38.0-82.0 [facility] Comment on above: Performed By: #### L [id number] ####Newscast Director: LAURA BAUTISTA ([id number])[facility] ([facility])[address] [place] [address] [place] NRBC 0.0 /100 WBCs Normal 0.0-2.0 [facility] Comment on above: Performed By: #### L [id number] ####Newscast Director: LAURA BAUTISTA ([id number])[facility] ([facility])[address] Platelet mean volume (Bld) [Entitic vol] 9.5 fL Normal 9.0-12.7 [facility] Comment on above: Result Comment: MPV is a calculated measurement using platelet volume ratio Performed By: #### L [id number] ####Newscast Director: LAURA BAUTISTA ([id number])[facility] ([facility])[address] Platelets (Bld) [#/Vol] 320 10*3/uL Normal 140-440 [facility] Comment on above: Performed By: #### L [id number] ####Newscast Director: LAURA BAUTISTA ([id number])[facility] ([facility])[address] [place] [address] RBC (Bld) [#/Vol] 4.04 10*6/uL Normal 3.80-5.20 [facility] Comment on above: Performed By: #### L [id number] ####Newscast Director: LAURA BAUTISTA ([id number])[facility] ([facility])[address] [place] [address] WBC (Bld) [#/Vol] 9.4 10*3/uL Normal 3.6-10.7 [facility] Comment on above: Performed By: #### L [id number] ####Newscast Director: LAURA BAUTISTA ([id number])[facility] ([facility])[address] [place] [address] CT CHEST ABDOMEN PELVIS KYA OGRAM W AND/OR WO CONTRASTon 07-03-2024 CT CHEST ABDOMEN PELVIS ANGIOGRAM W AND/OR WO CONTRAST Patient Name: CINTHYA CASTILLO : 1960 Exam Date/Time: 07/03/2024 20:49 Procedure: CT CHEST ABDOMEN PELVIS ANGIOGRAM W AND/OR WO CONTRAST Ordering Provider: MORAH, , J Reason For Exam: r/o dissection CT ANGIOGRAPHY CHEST, ABDOMEN AND PELVIS: CLINICAL INDICATION: Dissection, chest pain TECHNIQUE: Transaxial sequence was performed through the chest, abdomen and pelvis initially without IV contrast and then again during dynamic intravenous infusion of 75 mL of nonionic contrast media, injected at a high flow rate following a head of mobile study. Multiplanar and 3D MIP reconstruction was [...] pain as of today. Reports SOB, Normal [facility] ED Nursing Noteon 07-03-2024 ED Nursing Note Pt to ED with complaints of chest pain that worsens with deep breaths starting this morning. Also complaining of bilateral leg pain and lower back pain as of today. Reports SOB, pt talking in complete sentences in triage Normal [facility] ED Provider Noteon ED Provider Note [...] 12/11/2022 Performed by Micheal Silva MD at [address] ENDOSCOPY CURRENT MEDICATIONS Previous Medications ACETAMINOPHEN [...] Score: 4 PHYSICAL EXAM ED Triage Vitals [07/03/241918] Temp Heart Rate Resp BP 37.3 ?C [...] observed. P (more content not included)... Normal [facility] HIGH SENSITIVITY TROPONIN, S ERIAL BASELINEon 07-03-2024 TROPONIN HS SERIAL BASELINE 4 ng/L Normal <=14 [facility] Comment on above: Result Comment: In i ndividuals presenting with symptoms > 2h, a baseline troponin <= 5 ng/L suggests acute cardiac injury is unlikely and further serial testing is generally not indicated. Performed By: #### L [id number] #### Newscast Director: LAURA BAUTISTA ([id number]) [facility] ([facility]) [address] [place] [address] [place] HIGH SENSITIVITY TROPONIN, S ERIAL, SECOND TESTon 07-03-2024 2H TROPONIN HS (SERIAL 2ND TROPONIN) 6 ng/L Normal <=14 [facility] Comment on above: Result Comment: Risi ng or falling troponin delta below 2 ng/L as compared to baseline value suggests that acute cardiac injury is unlikely. Performed By: #### L [id number] #### Newscast Director: LAURA BAUTISTA ([id number]) [facility] ([facility]) [address] [place] [address] [place] HIGH SENSITIVITY TROPONIN, S ERIAL, THIRD TESTon 07-03-2024 4H TROPONIN HS (SERIAL 3RD TROPONIN) 5 ng/L Normal <=14 [facility] Comment on above: Result Comment: Risi ng or falling troponin delta below 2 ng/L as compared to 2h troponin value suggests that acute cardiac injury is unlikely. Performed By: #### L [id number] ####Newscast Director: LAURA BAUTISTA ([id number])[facility] ([facility])[address] [place] [address] Trough vancomycin levelOrder ed By: Lex Roca on 06-23-2024 Vancomycin trough [Mass/Vol] 9.5 ug/mL 5.0-15.0 [facility] Comment on above: Recommended goal tro [...] therapy recommended for serious lifethreatening infections include:- Rqvmnirmnl-Weziasnmiciw-Vkqvsowks (Ventilator/Healtcare Associated)-Sepsis PLEASE CONTACT PHARMACY SERVICES (#[phone]) FOR INTERPRETATIONOF RESULTS. Hemoglobin A1c percentageOrd ered By: Lex Roca on 05-03-2024 HbA1c (Bld) [Mass fraction] 7.6 % High 3.8-5.6 [facility] Comment on above: Normal < 5.7 % Predi abetic 5.7 - 6.4 % Diabetic >or= 6.5 % Please note range changes. Blood urea nitrogen (BUN)/cr eatinine ratioOrdered By: Lex Roca on 04-26-2024 Urea nitrogen/Creatinine [Mass ratio] 30.4 mg/mg High 10-20 [facility] Carbon dioxide measurementOr dered By: Lex Roca on 04-26-2024 CO2 [Moles/Vol] 23.0 mmol/L 21.0-32.0 [facility] Chloride measurementOrdered By: Lex Roca on 04-26-2024 Chloride [Moles/Vol] 111 mmol/L High 98-107 [facility] Erythrocyte distribution wid th ratioOrdered By: Lex Roca on 04-26-2024 Erythrocyte distribution width (RBC) [Ratio] 12.7 % 11.6-14.6 [facility] Erythrocyte distribution wid th standard deviationOrdered By: Lex Roca on 04-26-2024 Erythrocyte distribution width (RBC) [Ratio] 43.2 fl 35.1-43.9 [facility] Glomerular filtration rate ( GFR) estimationOrdered By: Lex Roca on 04-26-2024 GFR/1.73 sq M.predicted among non-blacks MDRD (S/P/Bld) [Vol rate/Area] 25 mL/min/{1.73_m2} Low >60 [facility] Comment on above: Non- GFR Calc Glucose measurementOrdered B y: Lex Roca on 04-26-2024 Glucose [Mass/Vol] 167 mg/dL High 74-106 [facility] Comment on above: Fasting Glucose resu lt greater than or equal to 126 mg/dL suggests DIABETES MELLITUS per A.D.A. criteria. Hematocrit Auto (Bld) [Volum e fraction]Ordered By: Lex Roca on 04-26-2024 Hematocrit (Bld) [Volume fraction] 37.6 % 37-47 [facility] Hemoglobin measurementOrdere d By: Lex Roca on 04-26-2024 Hemoglobin (Bld) [Mass/Vol] 11.9 g/dL Low 12.0-15.0 [facility] MCV (mean corpuscular volume ) determinationOrdered By: Lex Roca on 04-26-2024 MCV (RBC) [Entitic vol] 93.8 fL 81-99 [facility] Mean corpuscular hemoglobin (MCH) determinationOrdered By: Lex Roca on 04-26-2024 MCH (RBC) [Entitic mass] 29.7 pg 27.0-32.0 [facility] Mean corpuscular hemoglobin concentration (MCHC) determinationOrdered By: Lex Roca on 04-26-2024 MCHC (RBC) [Mass/Vol] 31.6 g/dL Low 32-36 [facility] Mean platelet volume determi nationOrdered By: Lex Roca on 04-26-2024 Platelet mean volume (Bld) [Entitic vol] 10.1 fL 6.2-12.0 [facility] Platelet countOrdered By: Sony Roca on 04-26-2024 Platelets (Bld) [#/Vol] 337 10*3/uL 150-450 [facility] Potassium measurementOrdered By: Lex Roca on 04-26-2024 Potassium [Moles/Vol] 4.6 mmol/L 3.5-5.1 [facility] RBC Auto (Bld) [#/Vol]Ordere d By: Lex Roca on 04-26-2024 RBC (Bld) [#/Vol] 4.01 10*6/uL Low 4.2-5.4 [facility] Serum anion gap measurementO rdered By: Lex Roca on 04-26-2024 Anion gap [Moles/Vol] 6 mmol/L 5-15 [facility] Serum or plasma calcium aba urement (mass/volume)Ordered By: Lex Roca on 04-26-2024 Calcium [Mass/Vol] 8.7 mg/dL 8.5-10.1 [facility] Serum or plasma creatinine m easurement (mass/volume)Ordered By: Lex Roca on 04-26-2024 Creatinine [Mass/Vol] 2.14 mg/dL High 0.55-1.02 [facility] Comment on above: The validity of the calculated GFR & GFRAA in patients over 70 years has not been determined. Clinical correlation is essential. Serum or plasma urea nitroge n measurement (mass/volume)Ordered By: Lex Roca on 04-26-2024 Urea nitrogen [Mass/Vol] 65 mg/dL High 7-18 [facility] Sodium levelOrdered By: Iban Roca on 04-26-2024 Sodium [Moles/Vol] 140 mmol/L 136-145 [facility] White blood cell (WBC) count Ordered By: Lex Roca on 04-26-2024 WBC (Bld) [#/Vol] 7.5 10*3/uL 4.4-11.0 [facility] Blood urea nitrogen (BUN)/cr eatinine ratioOrdered By: Lex Roca on 04-24-2024 Urea nitrogen/Creatinine [Mass ratio] 27.1 mg/mg High 10-20 [facility] Carbon dioxide measurementOr dered By: Lex Roca on 04-24-2024 CO2 [Moles/Vol] 21.0 mmol/L 21.0-32.0 [facility] Chloride measurementOrdered By: Lex Roca on 04-24-2024 Chloride [Moles/Vol] 109 mmol/L High 98-107 [facility] Glomerular filtration rate ( GFR) estimationOrdered By: Lex Roca on 04-24-2024 GFR/1.73 sq M.predicted among non-blacks MDRD (S/P/Bld) [Vol rate/Area] 22 mL/min/{1.73_m2} Low >60 [facility] Comment on above: Non- GFR Calc Glucose measurementOrdered B y: Lex Roca on 04-24-2024 Glucose [Mass/Vol] 304 mg/dL High 74-106 [facility] Comment on above: Glucose result great er than or equal to 200 mg/dLsuggests DIABETES MELLITUS per A.D.A. criteria. Potassium measurementOrdered By: Lex Roca on 04-24-2024 Potassium [Moles/Vol] 5.1 mmol/L 3.5-5.1 [facility] Serum anion gap measurementO rdered By: Lex Roca on 04-24-2024 Anion gap [Moles/Vol] 7 mmol/L 5-15 [facility] Serum or plasma calcium aba urement (mass/volume)Ordered By: Lex Roca on 04-24-2024 Calcium [Mass/Vol] 8.4 mg/dL Low 8.5-10.1 [facility] Serum or plasma creatinine m easurement (mass/volume)Ordered By: Lex Roca on 04-24-2024 Creatinine [Mass/Vol] 2.40 mg/dL High 0.55-1.02 [facility] Comment on above: The validity of the calculated GFR & GFRAA in patients over 70 years has not been determined. Clinical correlation is essential. Serum or plasma urea nitroge n measurement (mass/volume)Ordered By: Lex Roca on 04-24-2024 Urea nitrogen [Mass/Vol] 65 mg/dL High 7-18 [facility] Sodium levelOrdered By: Iban Roca on 04-24-2024 Sodium [Moles/Vol] 137 mmol/L 136-145 [facility] Blood urea nitrogen (BUN)/cr eatinine ratioOrdered By: Lex Roca on 04-19-2024 Urea nitrogen/Creatinine [Mass ratio] 24.9 mg/mg High 10-20 [facility] Carbon dioxide measurementOr dered By: Lex Roca on 04-19-2024 CO2 [Moles/Vol] 22.0 mmol/L 21.0-32.0 [facility] Chloride measurementOrdered By: Lex Roca on 04-19-2024 Chloride [Moles/Vol] 110 mmol/L High 98-107 [facility] Erythrocyte distribution wid th ratioOrdered By: Lex Roca on 04-19-2024 Erythrocyte distribution width (RBC) [Ratio] 12.5 % 11.6-14.6 [facility] Erythrocyte distribution wid th standard deviationOrdered By: Lex Roca on 04-19-2024 Erythrocyte distribution width (RBC) [Ratio] 42.7 fl 35.1-43.9 [facility] Glomerular filtration rate ( GFR) estimationOrdered By: Lex Roca on 04-19-2024 GFR/1.73 sq M.predicted among non-blacks MDRD (S/P/Bld) [Vol rate/Area] 24 mL/min/{1.73_m2} Low >60 [facility] Comment on above: Non- GFR Calc Glucose measurementOrdered B y: Lex Roca on 04-19-2024 Glucose [Mass/Vol] 201 mg/dL High 74-106 [facility] Comment on above: Glucose result great er than or equal to 200 mg/dLsuggests DIABETES MELLITUS per A.D.A. criteria. Hematocrit Auto (Bld) [Volum e fraction]Ordered By: Lex Roca on 04-19-2024 Hematocrit (Bld) [Volume fraction] 37.1 % 37-47 [facility] Hemoglobin A1c percentageOrd ered By: Lex Roca on 04-19-2024 HbA1c (Bld) [Mass fraction] 7.2 % High 3.8-5.6 [facility] Comment on above: Normal < 5.7 % Predi abetic 5.7 - 6.4 % Diabetic >or= 6.5 % Please note range changes. Hemoglobin measurementOrdere d By: Lex Roca on 04-19-2024 Hemoglobin (Bld) [Mass/Vol] 11.4 g/dL Low 12.0-15.0 [facility] High density lipoprotein (HD L) measurementOrdered By: Lex Roca on 04-19-2024 Cholesterol in HDL [Mass/Vol] 42 mg/dL >40 [facility] Comment on above: The drugs N-Acetylcy steine and Metamizole may falsely depress this assay. Reference Range HDL <40 mg/dL Low HDL Cholesterol HDL >or= 60 mg/dL High HDL Cholesterol Low density lipoprotein (LDL ) cholesterol measurementOrdered By: Lex Roca on 04-19-2024 Cholesterol in LDL [Mass/Vol] 53 mg/dL 0-130 [facility] MCV (mean corpuscular volume ) determinationOrdered By: Lex Roca on 04-19-2024 MCV (RBC) [Entitic vol] 92.5 fL 81-99 [facility] Mean corpuscular hemoglobin (MCH) determinationOrdered By: Lex Roca on 04-19-2024 MCH (RBC) [Entitic mass] 28.4 pg 27.0-32.0 [facility] Mean corpuscular hemoglobin concentration (MCHC) determinationOrdered By: Lex Roca on 04-19-2024 MCHC (RBC) [Mass/Vol] 30.7 g/dL Low 32-36 [facility] Mean platelet volume determi nationOrdered By: Lex Roca on 04-19-2024 Platelet mean volume (Bld) [Entitic vol] 9.9 fL 6.2-12.0 [facility] Platelet countOrdered By: Sony Roca on 04-19-2024 Platelets (Bld) [#/Vol] 318 10*3/uL 150-450 [facility] Potassium measurementOrdered By: Lex Roca on 04-19-2024 Potassium [Moles/Vol] 5.0 mmol/L 3.5-5.1 [facility] RBC Auto (Bld) [#/Vol]Ordere d By: Lex Roca on 04-19-2024 RBC (Bld) [#/Vol] 4.01 10*6/uL Low 4.2-5.4 [facility] Serum anion gap measurementO rdered By: Lex Roca on 04-19-2024 Anion gap [Moles/Vol] 9 mmol/L 5-15 [facility] Serum or plasma calcium aba urement (mass/volume)Ordered By: Lex Roca on 04-19-2024 Calcium [Mass/Vol] 9.1 mg/dL 8.5-10.1 [facility] Serum or plasma cholesterol measurement (mass/volume)Ordered By: Lex Roca on 04-19-2024 Cholesterol [Mass/Vol] 120 mg/dL <200 [facility] Comment on above: <200 mg/dL Desirable 200-240 mg/dL Borderline >240 mg/dL High Risk Serum or plasma creatinine m easurement (mass/volume)Ordered By: Lex Roca on 04-19-2024 Creatinine [Mass/Vol] 2.17 mg/dL High 0.55-1.02 [facility] Comment on above: The validity of the calculated GFR & GFRAA in patients over 70 years has not been determined. Clinical correlation is essential. Serum or plasma thyroid stim ulating hormone (TSH) measurement (units/volume)Ordered By: Lex Roca on 04-19-2024 TSH Qn 2.570 uIU/mL 0.358-3.740 [facility] Serum or plasma urea nitroge n measurement (mass/volume)Ordered By: eLx Roca on 04-19-2024 Urea nitrogen [Mass/Vol] 54 mg/dL High 7-18 [facility] Sodium levelOrdered By: Iban Roca on 04-19-2024 Sodium [Moles/Vol] 141 mmol/L 136-145 [facility] Triglycerides measurementOrd ered By: Lex Roca on 04-19-2024 Triglyceride [Mass/Vol] 124 mg/dL <199 [facility] Comment on above: The drugs N-Acetylcy steine and Metamizole may falsely depress this assay.Serum Triglycerides Reference Interval Normal <150 mg/dL Borderline high 150 - 199 mg/dL High 200 - 499 mg/dL Very High > or = 500 mg/dL Very low density lipoprotein (VLDL) cholesterol measurementOrdered By: Lex Roca on 04-19-2024 Very low density lipoprotein (VLDL) cholesterol measurement 25 mg/dL 5-40 [facility] White blood cell (WBC) count Ordered By: Lex Roca on 04-19-2024 WBC (Bld) [#/Vol] 8.0 10*3/uL 4.4-11.0 [facility] Blood urea nitrogen (BUN)/cr eatinine ratioOrdered By: Lex Roca on 04-10-2024 Urea nitrogen/Creatinine [Mass ratio] 25.2 mg/mg High 10-20 [facility] Carbon dioxide measurementOr dered By: Lex Roca on 04-10-2024 CO2 [Moles/Vol] 22.0 mmol/L 21.0-32.0 [facility] Chloride measurementOrdered By: Lex Roca on 04-10-2024 Chloride [Moles/Vol] 111 mmol/L High 98-107 [facility] Glomerular filtration rate ( GFR) estimationOrdered By: Lex Roca on 04-10-2024 GFR/1.73 sq M.predicted among non-blacks MDRD (S/P/Bld) [Vol rate/Area] 25 mL/min/{1.73_m2} Low >60 [facility] Comment on above: Non- GFR Calc Glucose measurementOrdered B y: Lex Roca on 04-10-2024 Glucose [Mass/Vol] 110 mg/dL High 74-106 [facility] Comment on above: Fasting Glucose resu lt from 100 to 125 mg/dL suggests IMPAIRED HOMEOSTASIS per A.D.A. criteria. Potassium measurementOrdered By: Lex Roca on 04-10-2024 Potassium [Moles/Vol] 4.5 mmol/L 3.5-5.1 [facility] Serum anion gap measurementO rdered By: Lex oRca on 04-10-2024 Anion gap [Moles/Vol] 6 mmol/L 5-15 [facility] Serum or plasma calcium aba urement (mass/volume)Ordered By: Lex Roca on 04-10-2024 Calcium [Mass/Vol] 8.7 mg/dL 8.5-10.1 [facility] Serum or plasma creatinine m easurement (mass/volume)Ordered By: Lex Roca on 04-10-2024 Creatinine [Mass/Vol] 2.14 mg/dL High 0.55-1.02 [facility] Comment on above: The validity of the calculated GFR & GFRAA in patients over 70 years has not been determined. Clinical correlation is essential. Serum or plasma urea nitroge n measurement (mass/volume)Ordered By: Lex Roca on 04-10-2024 Urea nitrogen [Mass/Vol] 54 mg/dL High 7-18 [facility] Sodium levelOrdered By: Iban Roca on 04-10-2024 Sodium [Moles/Vol] 139 mmol/L 136-145 [facility] DBT Breast - bilateral scree [place] 09-08-2023 [...] Electronically Signed Date/Time: 09/08/2023 3:04 PM EDT [facility] Patient Name: CINTHYA CASTILLO : 1960 Exam Date/Time: 09/08/2023 14:09 Procedure: BI MAMMOGRAM SCREENING TOMOSYNTHESIS BILATERAL Ordering Provider: ROCA THOMAS Reason For Exam: z12.31 Image views: 2D Bilateral CC and MLO views were acquired. 3D Bilateral CC and MLO views were acquired. Images were reviewed with CAD. Markings on images: BB's = Nipples; skin lesions Open [place] = Palpable Line = Scar COMPARISON: 05/20/2021, 05/21/2022 TISSUE DENSITY: BIRADS B - There are scattered fibroglandular densities. FINDINGS: No suspicious masses, architectural distortions or suspiciously clustered microcalcifications are identified. There is no evidence of skin thickening or nipple retraction. There are no significant changes when compared with prior studies. [facility] Alanis Redd MD - 09/08/2023 Patient Name: CINTHYA CASTILLO : 1960 Exam Date/Time: 09/08/2023 14:09 Procedure: BI MAMMOGRAM SCREENING TOMOSYNTHESIS BILATERAL Ordering Provider: ROCA THOMAS Reason For Exam: z12.31 Image views: 2D Bilateral CC and MLO views were acquired. 3D Bilateral CC and MLO views were acquired. Images were reviewed with CAD. Markings on images: BB's = Nipples; skin lesions Open walker river = Palpable Line = Scar COMPARISON: 05/20/2021, [...] of this examination. LIFETIME BREAST CANCER RISK: Tyrer-Cuzick: 9.88% - If greater than or equal [...] Electronically Signed Date/Time: 09/08/2023 3:04 PM EDT [facility] [email or web address] Radiology Study observation (narrative) [facility] alth DBT Breast - bilateral scree ningOrdered By: Alanis Redd on 09-08-2023 [facility] [email or web address] Work Phone: Basic metabolic 1998 panelon 09-07-2023 Anion gap [Moles/Vol] 13 mmol/L 3 - 13 mmol/L [facility] [email or web address] Calcium [Mass/Vol] 9.2 mg/dL 8.4 - 10. 4 mg/dL [facility] [email or web address] Chloride [Moles/Vol] 106 mmol/L 98 - 10 7 mmol/L [facility] [email or web address] CO2 [Moles/Vol] 21 mmol/L Low 22 - 30 mmol/L [facility] [email or web address] Creatinine [Mass/Vol] 2.00 mg/dL High 0.52 - 1.04 mg/dL [facility] [email or web address] GFR/1.73 sq M.predicted MDRD (S/P/Bld) [Vol rate/Area] 28.0 mL/min/{1.73_m2} Low - PINF [facility] th Comment on above: Calculation based on the Chronic Kidney Disease Epidemiology Collaboration (CKD-EPI) equation refit without adjustment for race Glucose [Mass/Vol] 122 mg/dL High 70 - 100 mg/dL [facility] Interpretation and review of laboratory results Abnormal [facility] Potassium [Moles/Vol] 4.1 mmol/L 3.5 - 5.1 mmol/L [facility] Sodium [Moles/Vol] 140 mmol/L 135 - 145 mmol/L [facility] Urea nitrogen [Mass/Vol] 42 mg/dL High 7 - 17 mg/dL [facility] CBC W Auto Differential pane l (Bld)on 09-07-2023 Basophils (Bld) [#/Vol] 0.1 10*3/uL 0.0 - 0.2 10*3/uL [facility] Basophils/100 WBC (Bld) 0.5 % 0.0 - 2.0 % [facility] Eosinophils (Bld) [#/Vol] 0.1 10*3/uL 0.0 - 0.5 10*3/uL [facility] Eosinophils/100 WBC (Bld) 1.0 % 0.0 - 6.0 % [facility] Erythrocyte distribution width (RBC) [Ratio] 12.7 % 11.5 - 15.0 % [facility] Hematocrit (Bld) [Volume fraction] 38.4 % 35.0 - 47.0 % [facility] Hemoglobin (Bld) [Mass/Vol] 12.7 g/dL 11.7 - 16.0 g/dL [facility] Immature granulocytes (Bld) [#/Vol] 0.1 10*3/uL High NINF - 0.1 10*3/uL [facility] Immature granulocytes/100 WBC (Bld) 0.5 % 0.0 - 2.0 % [facility] Interpretation and review of laboratory results Abnormal [facility] Lymphocytes (Bld) [#/Vol] 2.2 10*3/uL 1.0 - 4.3 10*3/uL [facility] Lymphocytes/100 WBC (Bld) 23.3 % 15.0 - 45.0 % [facility] MCH (RBC) [Entitic mass] 29.7 pg 26.0 - 34.0 pg [facility] MCHC (RBC) [Mass/Vol] 33.1 % 30.5 - 36.0 % [facility] MCV (RBC) [Entitic vol] 89.7 fL 77.0 - 99.0 fL [facility] [email or web address] Monocytes (Bld) [#/Vol] 1.1 10*3/uL High 0.0 - 0.9 10*3/uL [facility] Monocytes/100 WBC (Bld) 11.4 % 5.0 - 13.0 % [facility] Neutrophils (Bld) [#/Vol] 5.9 10*3/uL 1.8 - 7.5 10*3/uL [facility] Neutrophils/100 WBC (Bld) 63.3 % 38.0 - 82.0 % [facility] [email or web address] Nucleated RBC/100 WBC (Bld) [Ratio] 0.0 % [facility] [email or web address] Platelet mean volume (Bld) [Entitic vol] 9.5 fL 9.0 - 12.7 fL [facility] [email or web address] Platelets (Bld) [#/Vol] 344 10*3/uL 140 - 440 10*3/uL [facility] RBC (Bld) [#/Vol] 4.28 10*6/uL 3.80 - 5.2 0 10*6/uL [facility] WBC (Bld) [#/Vol] 9.3 10*3/uL 3.6 - 10.7 10*3/uL [facility] Laboratory - Chemistry and C hemistry - challengeon 09-07-2023 Troponin I.cardiac [Mass/Vol] 0.015 ng/mL [facility] - 0.034 ng/mL [facility] Troponin I.cardiac [Mass/Vol] 0.013 ng/mL [facility] - 0.034 ng/mL [facility] Natriuretic peptide B [Mass/ Vol]on 09-07-2023 Interpretation and review of laboratory results Abnormal [facility] Natriuretic peptide B (Bld) [Mass/Vol] 1110 pg/mL High <20 - 300 [facility] No Panel Informationon 09-06 [facility] Sinus rhythm 79 BPM NO STEMI, qtc nml SImilar to prior Electronically Signed On 09-07-2023 18:46:28 EDT by Luis Zabala CV Luis Mi, DO - 09/07/2023 IMPRESSION: Sinus rhythm 79 BPM NO STEMI, qtc nml SImilar to prior Electronically Signed On 09-07-2023 18:46:28 EDT by Luis Zabala [employer] No Panel InformationOrdered By: Luis Zabala on 09-07-2023 P [place] 57 degrees [employer] Work Phone: RI Interval 147 ms [employer] Work Phone: QRS [place] -5 degrees [employer] Work Phone: QRSD Interval 79 ms [employer] Work Phone: QT Interval 398 ms [employer] Work Phone: QTC Interval 458 ms [employer] Work Phone: T Wave [place] 63 degrees [employer] Work Phone: [employer] Work Phone: Troponin I.cardiac [Mass/Vol ]on 09-07-2023 Interpretation and review of laboratory results Normal [employer] Patients with high levels of Biotin oral intake (ie >5 mg/day) may have falsely decreased Troponin levels. [facility] Interpretation and review of laboratory results Normal [employer] Patients with high levels of Biotin oral intake (ie >5 mg/day) may have falsely decreased Troponin levels. [employer] Vital signsOrdered By: Luis Zabala on 09-07-2023 Heart rate 79 /min bpm [employer] Phone: XR Chest Single viewon 09-06 1. No acute findings. Report Dictated on Electronically Signed By: Pancho Wyatt MD Electronically Signed Date/Time: 09/07/2023 6:19 PM EDT [employer] Patient Name: CINTHYA CASTILLO : 1960 [...] change again noted in the thoracic spine. [facility] Pancho Wyatt MD - 09/07/2023 Patient Name: CINTHYA CASTILLO : 1960 [facility]#: [id number] Exam Date/Time: 09/07/2023 18:21 Procedure: XR CHEST [...] Electronically Signed Date/Time: 09/07/2023 6:19 PM EDT [facility] Radiology Study observation (narrative) [facility] XR Chest Single viewOrdered By: Pancho Wyatt on 09-07-2023 [facility] Work Phone: Basophil percentageOrdered B y: Lex Roca on 02-13-2023 Chloride [Moles/Vol] 112 mmol/L 98-107 [facility] Glucose [Mass/Vol] 138 mg/dL 74-106 [facility] Comment on above: Fasting Glucose resu lt greater than or equal to 126 mg/dL suggests DIABETES MELLITUS per A.D.A. criteria. Potassium [Moles/Vol] 4.7 mmol/L 3.5-5.1 [facility] Sodium [Moles/Vol] 142 mmol/L 136-145 [facility] WBC (Bld) [#/Vol] 11.3 10*3/uL 4.4-11.0 [facility] Bilirubin Test strip Ql (U)O rdered By: Lex Roca on 02-13-2023 Bilirubin Ql (U) Negative Negative [facility] Blood erythrocytes count (nu mber/volume)Ordered By: Lex Roca on 02-13-2023 RBC (Bld) [#/Vol] 4.02 10*6/uL 4.2-5.4 [facility] Blood hemoglobin measurement (mass/volume)Ordered By: Lex Roca on 02-13-2023 Hemoglobin (Bld) [Mass/Vol] 11.9 g/dL 12.0-15.0 [facility] Blood platelet mean volumeOr dered By: Lex Roca on 02-13-2023 Platelet mean volume (Bld) [Entitic vol] 9.8 fL 6.2-12.0 [facility] Culture, urineOrdered By: Sony Roca on 02-13-2023 Bacteria identified Cx Nom (U) Proteus mirabilis [facility] Determination of erythrocyte mean corpuscular volume (MCV)Ordered By: Lex Roca on 02-13-2023 MCV (RBC) [Entitic vol] 93.5 fL 81-99 [facility] Hematocrit Auto (Bld) [Volum e fraction]Ordered By: Lex Roca on 02-13-2023 Hematocrit (Bld) [Volume fraction] 37.6 % 37-47 [facility] Ketones Test strip Ql (U)Ord ered By: Lex Roca on 02-13-2023 Ketones Ql (U) 5 mg/dl Negative [facility] Laboratory - Chemistry and C hemistry - challengeOrdered By: Lex Roca on 02-13-2023 CO2 [Moles/Vol] 24.0 mmol/L 21.0-32.0 [facility] Urea nitrogen/Creatinine [Mass ratio] 28.3 mg/mg 10-20 [facility] Laboratory - Hematology and Cell countsOrdered By: Lex Roca on 02-13-2023 Erythrocyte distribution width (RBC) [Entitic vol] 43.7 fL 35.1-43.9 [facility] Erythrocyte distribution width (RBC) [Ratio] 12.8 % 11.6-14.6 [facility] MCH (RBC) [Entitic mass] 29.6 pg 27.0-32.0 [facility] MCHC Auto (RBC) [Mass/Vol]Or dered By: Lex Roca on 02-13-2023 MCHC (RBC) [Mass/Vol] 31.6 g/dL 32-36 [facility] Nitrite Test strip Ql (U)Ord ered By: Lex Roca on 02-13-2023 Nitrite Ql (U) Negative Negative [facility] No Panel InformationOrdered By: Lex Roca on 02-13-2023 Estimated GFR (MDRD) Amer 40 mL/min >60 [facility] Comment on above: GFR Calc Estimated GFR (MDRD) Non-Af Amer 33 mL/min >60 [facility] Comment on above: Non- GFR Calc Platelets bldOrdered By: Tony Roca on 02-13-2023 Platelets (Bld) [#/Vol] 322 10*3/uL 150-450 [facility] Protein Test strip Ql (U)Ord ered By: Lex Roca on 02-13-2023 Protein Ql (U) 500 mg/dl Negative [facility] Serum or plasma calcium aba urement (mass/volume)Ordered By: Lex Roca on 02-13-2023 Calcium [Mass/Vol] 8.4 mg/dL 8.5-10.1 [facility] Serum or plasma creatinine m easurement (mass/volume)Ordered By: Lex Roca on 02-13-2023 Creatinine [Mass/Vol] 1.66 mg/dL 0.55-1.02 [facility] Comment on above: The validity of the calculated GFR & GFRAA in patients over 70 years has not been determined. Clinical correlation is essential. Serum or plasma urea nitroge n measurement (mass/volume)Ordered By: Lex Roca on 02-13-2023 Urea nitrogen [Mass/Vol] 47 mg/dL 7-18 [facility] Thin prep Papanicolaou smear with manual screeningOrdered By: Lex Roca on 02-13-2023 Thin prep Papanicolaou smear with manual screening 6 5-15 [facility] Urine blood detectionOrdered By: Lex Roca on 02-13-2023 RBC Ql (U) 250 /ul Negative [facility] Urine clarityOrdered By: Tony Roca on 02-13-2023 Clarity (U) Cloudy Clear [facility] Urine color determinationOrd ered By: Lex Roca on 02-13-2023 Color (U) Red Yellow [facility] Urine glucose detectionOrder ed By: Lex Roca on 02-13-2023 Glucose Ql (U) 1000 mg/dl Normal [facility] Urine leukocyte esterase det ection by dipstickOrdered By: Lex Roca on 02-13-2023 Leukocyte esterase Test strip Ql (U) 100 /ul Negative [facility] Urine pHOrdered By: Lex cooper on 02-13-2023 pH (U) 8.0 [pH] 5.0 - 8.0 [facility] Urine specific gravity measu rementOrdered By: Lex Roca on 02-13-2023 Specific gravity (U) [Rel density] 1.010 1.002-1.030 [facility] Urobilinogen Auto test strip Ql (U)Ordered By: Lex Roca on 02-13-2023 Urobilinogen Ql (U) Normal mg/dl Normal [facility] Whole blood hemoglobin A1c/t otal hemoglobin ratio (mass fraction)Ordered By: Lex Roca on 02-05-2023 HbA1c (Bld) [Mass fraction] 6.6 % 3.8-5.6 [facility] Comment on above: Normal < 5.7 % Predi abetic 5.7 - 6.4 % Diabetic >or= 6.5 % Please note range changes. Laboratory - Chemistry and C hemistry - challengeon 12-11-2022 Glucose [Mass/Vol] 155 mg/dL High 70 - 100 mg/dL [facility] No Panel Informationon 12-11 Interpretation and review of laboratory results Abnormal [facility] Performed by: [facility], [address] [place] [address] CLIA ID: [id number] [facility] Basophil percentageOrdered B y: Lex Roca on 11-25-2022 WBC (Bld) [#/Vol] 10.9 10*3/uL 4.4-11.0 [facility] Blood erythrocytes count (nu mber/volume)Ordered By: Lex Roca on 11-25-2022 RBC (Bld) [#/Vol] 3.84 10*6/uL 4.2-5.4 [facility] Blood hemoglobin measurement (mass/volume)Ordered By: Lex Roca on 11-25-2022 Hemoglobin (Bld) [Mass/Vol] 11.5 g/dL 12.0-15.0 [facility] Blood platelet mean volumeOr dered By: Lex Roca on 11-25-2022 Platelet mean volume (Bld) [Entitic vol] 10.2 fL 6.2-12.0 [facility] Determination of erythrocyte mean corpuscular volume (MCV)Ordered By: Lex Roca on 11-25-2022 MCV (RBC) [Entitic vol] 97.4 fL 81-99 [facility] Hematocrit Auto (Bld) [Volum e fraction]Ordered By: Lex Roca on 11-25-2022 Hematocrit (Bld) [Volume fraction] 37.4 % 37-47 [facility] Laboratory - Hematology and Cell countsOrdered By: Lex Roca on 11-25-2022 Erythrocyte distribution width (RBC) [Entitic vol] 44.9 fL 35.1-43.9 [facility] Erythrocyte distribution width (RBC) [Ratio] 12.6 % 11.6-14.6 [facility] MCH (RBC) [Entitic mass] 29.9 pg 27.0-32.0 [facility] MCHC Auto (RBC) [Mass/Vol]Or dered By: Lex Roca on 11-25-2022 MCHC (RBC) [Mass/Vol] 30.7 g/dL 32-36 [facility] Platelets bldOrdered By: Tony Roca on 11-25-2022 Platelets (Bld) [#/Vol] 379 10*3/uL 150-450 [facility] Whole blood hemoglobin A1c/t otal hemoglobin ratio (mass fraction)Ordered By: Lex Roca on 11-05-2022 HbA1c (Bld) [Mass fraction] 5.6 % 3.8-5.6 [facility] Comment on above: Normal < 5.7 % Predi abetic 5.7 - 6.4 % Diabetic >or= 6.5 % Please note range changes. Basophil percentageOrdered B y: Lex Roca on 10-09-2022 Chloride [Moles/Vol] 103 mmol/L 98-[address] [facility] Glucose [Mass/Vol] 61 mg/dL 74-106 [facility] Potassium [Moles/Vol] 4.0 mmol/L 3.5-5.1 [facility] Sodium [Moles/Vol] 133 mmol/L 136-145 [facility] Laboratory - Chemistry and C hemistry - challengeOrdered By: Lex Roca on 10-09-2022 CO2 [Moles/Vol] 23.0 mmol/L 21.0-32.0 [facility] Urea nitrogen/Creatinine [Mass ratio] 21.2 mg/mg 10-20 [facility] No Panel InformationOrdered By: Lex Roca on 10-09-2022 Estimated GFR (MDRD) Amer 35 mL/min >60 [facility] Comment on above: GFR Calc Estimated GFR (MDRD) Non-Af Amer 29 mL/min >60 [facility] Comment on above: Non- GFR Calc Serum or plasma calcium aba urement (mass/volume)Ordered By: Lex Roca on 10-09-2022 Calcium [Mass/Vol] 8.1 mg/dL 8.5-10.1 [facility] Serum or plasma creatinine m easurement (mass/volume)Ordered By: Lex Roca on 10-09-2022 Creatinine [Mass/Vol] 1.89 mg/dL 0.55-1.02 [facility] Comment on above: The validity of the calculated GFR & GFRAA in patients over 70 years has not been determined. Clinical correlation is essential. Serum or plasma urea nitroge n measurement (mass/volume)Ordered By: Lex Roca on 10-09-2022 Urea nitrogen [Mass/Vol] 40 mg/dL 7-18 [facility] Thin prep Papanicolaou smear with manual screeningOrdered By: Lex Roca on 10-09-2022 Thin prep Papanicolaou smear with manual screening 7 5-15 [facility] Bacteria identified Cx Nom ( Wound)Ordered By: Lex Roca on 08-31-2022 Wound Culture Staphylococcus aureus [facility] Wound Culture Streptococcus group G [facility] Bacteria identified Cx Nom ( Wound)Ordered By: Lex Roca on 08-28-2022 Wound Culture Staphylococcus aureus [facility] Wound Culture Streptococcus group G [facility] Gram stain for investigation of transfusion reactionOrdered By: Lex Roca on 08-28-2022 Microscopic observation Gram stain Nom (Unsp spec) [facility] Basophil percentageOrdered B y: Lex Roca on 07-16-2022 Cholesterol [Mass/Vol] 167 mg/dL <200 [facility] Comment on above: <200 mg/dL Desirable 200-240 mg/dL Borderline >240 mg/dL High Risk Triglyceride [Mass/Vol] 159 mg/dL <199 [facility] Comment on above: The drugs N-Acetylcy steine and Metamizole may falsely depress this assay.Serum Triglycerides Reference Interval Normal <150 mg/dL Borderline high 150 - 199 mg/dL High 200 - 499 mg/dL Very High > or = 500 mg/dL WBC (Bld) [#/Vol] 8.8 10*3/uL 4.4-11.0 [facility] Blood erythrocytes count (nu mber/volume)Ordered By: Lex Roca on 07-16-2022 RBC (Bld) [#/Vol] 4.07 10*6/uL 4.2-5.4 [facility] Blood hemoglobin measurement (mass/volume)Ordered By: Lex Roca on 07-16-2022 Hemoglobin (Bld) [Mass/Vol] 12.4 g/dL 12.0-15.0 [facility] Blood platelet mean volumeOr dered By: Lex Roca on 07-16-2022 Platelet mean volume (Bld) [Entitic vol] 10.0 fL 6.2-12.0 [facility] Determination of erythrocyte mean corpuscular volume (MCV)Ordered By: Lex Roca on 07-16-2022 MCV (RBC) [Entitic vol] 94.1 fL 81-99 [facility] Erythrocyte sedimentation ra teOrdered By: Lex Roca on 07-16-2022 ESR (Bld) [Velocity] 43 mm/h 0-30 [facility] Hematocrit Auto (Bld) [Volum e fraction]Ordered By: Lex Roca on 07-16-2022 Hematocrit (Bld) [Volume fraction] 38.3 % 37-47 [facility] Laboratory - Hematology and Cell countsOrdered By: Lex Roca on 07-16-2022 Erythrocyte distribution width (RBC) [Entitic vol] 43.6 fL 35.1-43.9 [facility] Erythrocyte distribution width (RBC) [Ratio] 12.6 % 11.6-14.6 [facility] MCH (RBC) [Entitic mass] 30.5 pg 27.0-32.0 [facility] MCHC Auto (RBC) [Mass/Vol]Or dered By: Lex Roca on 07-16-2022 MCHC (RBC) [Mass/Vol] 32.4 g/dL 32-36 [facility] Platelets bldOrdered By: Tony eloise Roca on 07-16-2022 Platelets (Bld) [#/Vol] 268 10*3/uL 150-450 [facility] Serum or plasma C reactive p rotein measurement (mass/volume)Ordered By: Lex Roca on 07-16-2022 CRP [Mass/Vol] 4.50 mg/L 0.0-3.0 [facility] Comment on above: C-Reactive Protein ( CRP) provides useful information for thediagnosis, therapy and monitoring of inflammatory processesand associated diseases. For the evaluation of Relative Riskfor Cardiovascular Disease, a High Sensitivity CRP (HSCRP)should be ordered. Serum or plasma cholesterol in HDL measurement (mass/volume)Ordered By: Lex Roca on 07-16-2022 Cholesterol in HDL [Mass/Vol] 37 mg/dL >40 [facility] Comment on above: The drugs N-Acetylcy steine and Metamizole may falsely depress this assay. Reference Range HDL <40 mg/dL Low HDL Cholesterol HDL >or= 60 mg/dL High HDL Cholesterol Serum or plasma cholesterol in VLDL measurement (mass/volume)Ordered By: Lex Roca on 07-16-2022 Cholesterol in VLDL [Mass/Vol] 32 mg/dL 5-40 [facility] Serum or plasma low density lipoprotein (LDL) cholesterol measurement (mass/volume)Ordered By: Lex Roca on 07-16-2022 Cholesterol in LDL [Mass/Vol] 98 mg/dL 0-130 [facility] Basophil percentageOrdered B y: Lex Roca on 06-04-2022 Bilirubin [Mass/Vol] 0.40 mg/dL 0.20-1.00 [facility] Comment on above: For patients on eltr ombopag therapy, use of Dimension [place] TBIL is not recommended. Chloride [Moles/Vol] 110 mmol/L 98-107 [facility] Cholesterol [Mass/Vol] 135 mg/dL <200 [facility] Comment on above: <200 mg/dL Desirable 200-240 mg/dL Borderline >240 mg/dL High Risk Glucose [Mass/Vol] 107 mg/dL 74-106 [facility] Comment on above: Fasting Glucose resu lt from 100 to 125 mg/dL suggests IMPAIRED HOMEOSTASIS per A.D.A. criteria. Potassium [Moles/Vol] 4.4 mmol/L 3.5-5.1 [facility] Protein [Mass/Vol] 6.4 g/dL 6.4-8.2 [facility] Sodium [Moles/Vol] 142 mmol/L 136-145 [facility] Triglyceride [Mass/Vol] 186 mg/dL <199 [facility] Comment on above: The drugs N-Acetylcy steine and Metamizole may falsely depress this assay.Serum Triglycerides Reference Interval Normal <150 mg/dL Borderline high 150 - 199 mg/dL High 200 - 499 mg/dL Very High > or = 500 mg/dL WBC (Bld) [#/Vol] 12.1 10*3/uL 4.4-11.0 [facility] Blood erythrocytes count (nu mber/volume)Ordered By: Lex Roca on 06-04-2022 RBC (Bld) [#/Vol] 4.12 10*6/uL 4.2-5.4 [facility] Blood hemoglobin measurement (mass/volume)Ordered By: Lex Roca on 06-04-2022 Hemoglobin (Bld) [Mass/Vol] 12.6 g/dL 12.0-15.0 [facility] Blood platelet mean volumeOr dered By: Lex Roca on 06-04-2022 Platelet mean volume (Bld) [Entitic vol] 10.0 fL 6.2-12.0 [facility] Determination of erythrocyte mean corpuscular volume (MCV)Ordered By: Lex Roca on 06-04-2022 MCV (RBC) [Entitic vol] 93.4 fL 81-99 [facility] Direct bilirubinOrdered By: Lex Roca on 06-04-2022 Bilirubin.direct [Mass/Vol] 0.12 mg/dL 0.00-0.30 [facility] Hematocrit Auto (Bld) [Volum e fraction]Ordered By: Lex Roca on 06-04-2022 Hematocrit (Bld) [Volume fraction] 38.5 % 37-47 [facility] Laboratory - Chemistry and C hemistry - challengeOrdered By: Lex Roca on 06-04-2022 ALP [Catalytic activity/Vol] 70 U/L 45-117 [facility] ALT [Catalytic activity/Vol] 28 U/L 13-56 [facility] CO2 [Moles/Vol] 24.0 mmol/L 21.0-32.0 [facility] Globulin (S) [Mass/Vol] 4.0 g/dL 2.2-4.2 [facility] Urea nitrogen/Creatinine [Mass ratio] 25.8 mg/mg 10-20 [facility] Laboratory - Hematology and Cell countsOrdered By: Lex Roca on 06-04-2022 Erythrocyte distribution width (RBC) [Entitic vol] 42.2 fL 35.1-43.9 [facility] Erythrocyte distribution width (RBC) [Ratio] 12.3 % 11.6-14.6 [facility] MCH (RBC) [Entitic mass] 30.6 pg 27.0-32.0 [facility] MCHC Auto (RBC) [Mass/Vol]Or dered By: Lex Roca on 06-04-2022 MCHC (RBC) [Mass/Vol] 32.7 g/dL 32-36 [facility] No Panel InformationOrdered By: Lex Roca on 06-04-2022 Estimated GFR (MDRD) Amer 36 mL/min >60 [facility] Comment on above: GFR Calc Estimated GFR (MDRD) Non-Af Amer 30 mL/min >60 [facility] Comment on above: Non- GFR Calc Platelets bldOrdered By: Tony Roca on 06-04-2022 Platelets (Bld) [#/Vol] 409 10*3/uL 150-450 [facility] Serum or plasma albumin aba urement (mass/volume)Ordered By: Lex Roca on 06-04-2022 Albumin [Mass/Vol] 2.4 g/dL 3.2-5.0 [facility] Serum or plasma calcium aba urement (mass/volume)Ordered By: Lex Roca on 06-04-2022 Calcium [Mass/Vol] 8.5 mg/dL 8.5-10.1 [facility] Serum or plasma cholesterol in HDL measurement (mass/volume)Ordered By: Lex Roca on 06-04-2022 Cholesterol in HDL [Mass/Vol] 35 mg/dL >40 [facility] Comment on above: The drugs N-Acetylcy steine and Metamizole may falsely depress this assay. Reference Range HDL <40 mg/dL Low HDL Cholesterol HDL >or= 60 mg/dL High HDL Cholesterol Serum or plasma cholesterol in VLDL measurement (mass/volume)Ordered By: Lex Roca on 06-04-2022 Cholesterol in VLDL [Mass/Vol] 37 mg/dL 5-40 [facility] Serum or plasma creatinine m easurement (mass/volume)Ordered By: Lex Roca on 06-04-2022 Creatinine [Mass/Vol] 1.82 mg/dL 0.55-1.02 [facility] Comment on above: The validity of the calculated GFR & GFRAA in patients over 70 years has not been determined. Clinical correlation is essential. Serum or plasma low density lipoprotein (LDL) cholesterol measurement (mass/volume)Ordered By: Lex Roca on 06-04-2022 Cholesterol in LDL [Mass/Vol] 63 mg/dL 0-130 [facility] Serum or plasma urea nitroge n measurement (mass/volume)Ordered By: Lex Roca on 06-04-2022 Urea nitrogen [Mass/Vol] 47 mg/dL 7-18 [facility] Thin prep Papanicolaou smear with manual screeningOrdered By: Lex Roca on 06-04-2022 Thin prep Papanicolaou smear with manual screening 18 U/L 15-37 [facility] Thin prep Papanicolaou smear with manual screening 8 5-15 [facility] Whole blood hemoglobin A1c/t otal hemoglobin ratio (mass fraction)Ordered By: Lex Roca on 06-04-2022 HbA1c (Bld) [Mass fraction] 6.4 % 3.8-5.6 [facility] Comment on above: Normal < 5.7 % Predi abetic 5.7 - 6.4 % Diabetic >or= 6.5 % Please note range changes. DBT Breast - bilateral patricia em 05-21-2022 No mammographic evidence of malignancy. ASSESSMENT: Category 1 Negative RECOMMENDATION: Routine screening mammogram in 1 year. Bilateral Report Dictated on Electronically Signed By: Alanis Redd Electronically Signed Date/Time: 05/21/2022 10:54 AM EST [facility] Patient Name: CINTHYA CASTILLO : 1960 [...] images: BB's = Nipples; skin lesions Open [place] = Palpable Line = Scar COMPARISON: 12/16/2016, 05/20/2021 TISSUE DENSITY: BIRADS B - There are scattered fibroglandular densities. FINDINGS: No suspicious masses, architectural distortions or suspiciously clustered microcalcifications are identified. There is no evidence of skin thickening or nipple retraction. There are no significant changes when compared with prior studies. [facility] Alanis Redd MD - 05/21/2022 Patient [...] images: BB's = Nipples; skin lesions Open [place] = Palpable Line = Scar COMPARISON: 12/16/2016, [...] Electronically Signed Date/Time: 05/21/2022 10:54 AM EST [facility] Radiology Study observation (narrative) [facility] DBT Breast - bilateral scree ningOrdered By: Alanis Redd on 05-21-2022 [facility] Work Phone: No Panel InformationOrdered By: Lex Roca on 03-09-2022 Thyroid Stimulating Hormone (TSH) 2.31 uIU/mL 0.358-3.74 [facility] Basophil percentageon 2021 Bilirubin [Mass/Vol] 0.30 mg/dL 0.20-1.00 [facility] Work Phone: Comment on above: For patients on eltr ombopag therapy, use of Dimension [place] TBIL is not recommended. Chloride [Moles/Vol] 110 mmol/L 98-107 [facility] Work Phone: Cholesterol [Mass/Vol] 161 mg/dL <200 Wo [facility] Work Phone: Comment on above: <200 mg/dL Desirable 200-240 mg/dL Borderline >240 mg/dL High Risk Glucose [Mass/Vol] 85 mg/dL 74-106 [facility] Work Phone: Potassium [Moles/Vol] 4.0 mmol/L 3.5-5.1 [facility] Work Phone: Protein [Mass/Vol] 6.7 g/dL 6.4-8.2 [facility] Work Phone: Sodium [Moles/Vol] 144 mmol/L 136-145 [facility] Work Phone: Triglyceride [Mass/Vol] 214 mg/dL <199 [facility] Work Phone: Comment on above: The drugs N-Acetylcy steine and Metamizole may falsely depress this assay.Serum Triglycerides Reference Interval Normal <150 mg/dL Borderline high 150 - 199 mg/dL High 200 - 499 mg/dL Very High > or = 500 mg/dL Direct bilirubinon 2 Bilirubin.direct [Mass/Vol] 0.09 mg/dL 0.00-0.30 [facility] Work Phone: [phone] Laboratory - Chemistry and C hemistry - challengeon 12-04-2021 ALP [Catalytic activity/Vol] 56 U/L 45-117 [facility] Work Phone: [phone] ALT [Catalytic activity/Vol] 21 U/L 13-56 [facility] Work Phone: [phone] CO2 [Moles/Vol] 27.0 mmol/L 21.0-32.0 [facility] Work Phone: [phone] Globulin (S) [Mass/Vol] 3.8 g/dL 2.2-4.2 [facility] Work Phone: [phone] Urea nitrogen/Creatinine [Mass ratio] 24.0 mg/mg 10-20 [facility] Work Phone: No Panel Informationon 12-04 Estimated GFR (MDRD) Amer 44 mL/min >60 [facility] Work Phone: Comment on above: GFR Calc Estimated GFR (MDRD) Non-Af Amer 37 mL/min >60 [facility] Work Phone: [phone] Comment on above: Non- GFR Calc Thyroid Stimulating Hormone (TSH) 4.16 uIU/mL 0.358-3.74 [facility] Work Phone: [phone] Serum or plasma albumin aba urement (mass/volume)on 12-04-2021 Albumin [Mass/Vol] 2.9 g/dL 3.2-5.0 [facility] Work Phone: [phone] Serum or plasma calcium aba urement (mass/volume)on 12-04-2021 Calcium [Mass/Vol] 8.7 mg/dL 8.5-10.1 [facility] Work Phone: Serum or plasma cholesterol in HDL measurement (mass/volume)on 12-04-2021 Cholesterol in HDL [Mass/Vol] 34 mg/dL >40 [facility] Work Phone: Comment on above: The drugs N-Acetylcy steine and Metamizole may falsely depress this assay. Reference Range HDL <40 mg/dL Low HDL Cholesterol HDL >or= 60 mg/dL High HDL Cholesterol Serum or plasma cholesterol in VLDL measurement (mass/volume)on 12-04-2021 Cholesterol in VLDL [Mass/Vol] 43 mg/dL 5-40 [facility] Work Phone: Serum or plasma creatinine m easurement (mass/volume)on 12-04-2021 Creatinine [Mass/Vol] 1.54 mg/dL 0.55-1.02 [facility] Work Phone: Comment on above: The validity of the calculated GFR & GFRAA in patients over 70 years has not been determined. Clinical correlation is essential. Serum or plasma low density lipoprotein (LDL) cholesterol measurement (mass/volume)on 12-04-2021 Cholesterol in LDL [Mass/Vol] 84 mg/dL 0-130 [facility] Work Phone: Serum or plasma urea nitroge n measurement (mass/volume)on 12-04-2021 Urea nitrogen [Mass/Vol] 37 mg/dL 7-18 [facility] Work Phone: [phone] Thin prep Papanicolaou smear with manual screeningon 12-04-2021 Thin prep Papanicolaou smear with manual screening 14 U/L 15-37 [facility] Work Phone: [phone] Thin prep Papanicolaou smear with manual screening 7 5-15 [facility] Work Phone: [phone] Whole blood hemoglobin A1c/t otal hemoglobin ratio (mass fraction)on 12-04-2021 HbA1c (Bld) [Mass fraction] 6.7 % 3.8-5.6 [facility] Work Phone: Comment on above: Normal < 5.7 % Predi abetic 5.7 - 6.4 % Diabetic >or= 6.5 % Please note range changes. No Panel Informationon 08-11 Thyroid Stimulating Hormone (TSH) 4.27 uIU/mL 0.358-3.74 [facility] Work Phone: MG Breast Tomosynthesis Scr Blon 05-20-2021 MG Breast Tomosynthesis Scr Bl Patient Name: CINTHYA CASTILLO Mammography ACCESSION EXAM DATE/TIME PROCEDURE ORDERING PROVIDER [id number] 05/20/2021 10:55 EST MG Breast Tomosynthesis Mary Jane ROCA, LEX Stone BI Scr CPT code 30856 42505 Reason For Exam (MG Breast Tomosynthesis BI [...] MG breast tomosynthesis bl scr performed at [facility]. December 16, 2015, bilateral screening mammogram performed at [facility]. December 14, 2014, bilateral screening mammogram performed at [facility]. TISSUE DENSITY: BIRADS B - There are [...] images: BB's = Nipples; skin lesions Open [place] = Palpable Line = Scar Mammography Report [...] Time: 05/20/2021 1:31 pm Signed by: MD ACSTRO KERISTEN L Normal [facility] Serafin Digital Screen Monica cote 05-20-2021 Patient Name: CINTHYA CASTILLO Mammography ACCESSION EXAM DATE/TIME PROCEDURE ORDERING PROVIDER [id number] 05/20/2021 10:55 EST MG Breast Tomosynthesis Mary Jane ROCA, LEX Stone BI Scr CPT code 65742 [id number] Reason For Exam (MG Breast Tomosynthesis BI [...] MG breast tomosynthesis bl scr performed at [facility]. December 16, 2015, bilateral screening mammogram performed at [facility]. December 14, 2014, bilateral screening mammogram performed at [facility]. TISSUE DENSITY: BIRADS B - There are [...] images: BB's = Nipples; skin lesions Open [place] = Palpable Line = Scar Mammography Report [...] pm Signed by: MD GLORIA, SHEBA Starkey [facility] Sheba Castro MD - 05/20/2021 Patient Name: CINTHYA CASTILLO Mammography ACCESSION EXAM DATE/TIME PROCEDURE ORDERING PROVIDER [id number] 05/20/2021 10:55 EST MG Breast Tomosynthesis Mary Jane ROCA THOMAS S BI Scr CPT code 96488 [id number] Reason For Exam (MG Breast Tomosynthesis BI [...] MG breast tomosynthesis bl scr performed at [facility]. December 16, 2015, bilateral screening mammogram performed at [facility]. December 14, 2014, bilateral screening mammogram performed at [facility]. TISSUE DENSITY: BIRADS B - There are [...] images: BB's = Nipples; skin lesions Open [place] = Palpable Line = Scar Mammography Report [...] pm Signed by: MD GLORIA, SHEBA Starkey [facility] Work Phone: Radiology Study observation (narrative) [facility] Work Phone: [facility] Serafin Digital Screen Bila teralOrdered By: Sheba Castro on 05-20-2021 [facility] Work Phone: Basophil percentageon 2021 Bilirubin [Mass/Vol] 0.30 mg/dL 0.20-1.00 [facility] Work Phone: Comment on above: For patients on eltr ombopag therapy, use of Dimension [place] TBIL is not recommended. Chloride [Moles/Vol] 110 mmol/L 98-107 [facility] Work Phone: Cholesterol [Mass/Vol] 160 mg/dL <200 [facility] Work Phone: Comment on above: <200 mg/dL Desirable 200-240 mg/dL Borderline >240 mg/dL High Risk Glucose [Mass/Vol] 119 mg/dL 74-106 [facility] Work Phone: Comment on above: Fasting Glucose resu lt from 100 to 125 mg/dL suggests IMPAIRED HOMEOSTASIS per A.D.A. criteria. Potassium [Moles/Vol] 4.5 mmol/L 3.5-5.1 [facility] Work Phone: Comment on above: Slight Hemolysis, Re sult may be falsely increased. Protein [Mass/Vol] 6.3 g/dL 6.4-8.2 [facility] Work Phone: Sodium [Moles/Vol] 141 mmol/L 136-145 [facility] Work Phone: Triglyceride [Mass/Vol] 179 mg/dL [facility] Work Phone: Comment on above: The drugs N-Acetylcy steine and Metamizole may falsely depress this assay.Serum Triglycerides Reference Interval Normal <150 mg/dL Borderline high 150 - 199 mg/dL High 200 - 499 mg/dL Very High > or = 500 mg/dL WBC (Bld) [#/Vol] 8.4 10*3/uL 4.4-11.0 [facility] Work Phone: [phone] Blood erythrocytes count (nu mber/volume)on 05-05-2021 RBC (Bld) [#/Vol] 4.24 10*6/uL 4.2-5.4 [facility] Work Phone: Blood hemoglobin measurement (mass/volume)on 05-05-2021 Hemoglobin (Bld) [Mass/Vol] 12.5 g/dL 12.0-15.0 [facility] Work Phone: [phone] Blood platelet mean volumeon 05-05-2021 Platelet mean volume (Bld) [Entitic vol] 9.8 fL 6.2-12.0 [facility] Work Phone: [phone] Determination of erythrocyte mean corpuscular volume (MCV)on 05-05-2021 MCV (RBC) [Entitic vol] 89.2 fL 81-99 [facility] Work Phone: [phone] Hematocrit Auto (Bld) [Volum e fraction]on 05-05-2021 Hematocrit (Bld) [Volume fraction] 37.8 % 37-47 [facility] Work Phone: Laboratory - Chemistry and C hemistry - challengeon 05-05-2021 ALP [Catalytic activity/Vol] 71 U/L 45-117 [facility] Work Phone: ALT [Catalytic activity/Vol] 25 U/L 13-56 [facility] Work Phone: [phone] CO2 [Moles/Vol] 29.0 mmol/L 21.0-32.0 [facility] Work Phone: Globulin (S) [Mass/Vol] 3.6 g/dL 2.2-4.2 [facility] Work Phone: [phone] Urea nitrogen/Creatinine [Mass ratio] 21.4 mg/mg 10-20 [facility] Work Phone: [phone] Laboratory - Hematology and Cell countson 05-05-2021 Erythrocyte distribution width (RBC) [Entitic vol] 41.5 fL 35.1-43.9 [facility] Work Phone: [phone] Erythrocyte distribution width (RBC) [Ratio] 12.8 % 11.6-14.6 [facility] Work Phone: [phone] MCH (RBC) [Entitic mass] 29.5 pg 27.0-32.0 [facility] Work Phone: [phone] MCHC Auto (RBC) [Mass/Vol]on 05-05-2021 MCHC (RBC) [Mass/Vol] 33.1 g/dL 32-36 [facility] Work Phone: No Panel Informationon 05-05 Estimated GFR (MDRD) Amer 44 mL/min >60 [facility] Work Phone: [phone] Comment on above: GFR Calc Estimated GFR (MDRD) Non-Af Amer 37 mL/min >60 [facility] Work Phone: [phone] Comment on above: Non- GFR Calc Thyroid Stimulating Hormone (TSH) 5.77 uIU/mL 0.358-3.74 [facility] Work Phone: Vitamin D 25-Hydroxy 22.2 ng/mL [facility] Work Phone: Comment on above: Vitamin D 25(OH) Sta tus Range Deficiency <20 ng/mL (50nmol/L) Insufficiency 20 - 30 ng/mL (50 - 75 nmol/L) Sufficiency 30 - 100 ng/mL (75 - 250 nmol/L) Toxicity >100 ng/mL (>250 nmol/L) Platelets bldon 05-05-2021 Platelets (Bld) [#/Vol] 309 10*3/uL 150-450 [facility] Work Phone: [phone] Serum or plasma albumin aba urement (mass/volume)on 05-05-2021 Albumin [Mass/Vol] 2.7 g/dL 3.2-5.0 [facility] Work Phone: [phone] Serum or plasma albumin/glob ulin mass ratioon 05-05-2021 Albumin/Globulin [Mass ratio] 0.8 {ratio} 0.9-2.4 [facility] Work Phone: [phone] Serum or plasma calcium aba urement (mass/volume)on 05-05-2021 Calcium [Mass/Vol] 8.4 mg/dL 8.5-10.1 [facility] Work Phone: [phone] Serum or plasma cholesterol in HDL measurement (mass/volume)on 05-05-2021 Cholesterol in HDL [Mass/Vol] 34 mg/dL [facility] Work Phone: Comment on above: The drugs N-Acetylcy steine and Metamizole may falsely depress this assay. Reference Range HDL <40 mg/dL Low HDL Cholesterol HDL >or= 60 mg/dL High HDL Cholesterol Serum or plasma cholesterol in VLDL measurement (mass/volume)on 05-05-2021 Cholesterol in VLDL [Mass/Vol] 36 mg/dL 5-40 [facility] Work Phone: Serum or plasma creatinine m easurement (mass/volume)on 05-05-2021 Creatinine [Mass/Vol] 1.54 mg/dL 0.55-1.02 [facility] Work Phone: Comment on above: The validity of the calculated GFR & GFRAA in patients over 70 years has not been determined. Clinical correlation is essential. Serum or plasma low density lipoprotein (LDL) cholesterol measurement (mass/volume)on 05-05-2021 Cholesterol in LDL [Mass/Vol] 90 mg/dL 0-130 [facility] Work Phone: Serum or plasma urea nitroge n measurement (mass/volume)on 05-05-2021 Urea nitrogen [Mass/Vol] 33 mg/dL 7-18 [facility] Work Phone: Thin prep Papanicolaou smear with manual screeningon 05-05-2021 Thin prep Papanicolaou smear with manual screening 17 U/L 15-37 [facility] Work Phone: Comment on above: Slight Hemolysis, Re sult may be falsely increased. Thin prep Papanicolaou smear with manual screening 2 5-15 [facility] Work Phone: [phone] Whole blood hemoglobin A1c/t otal hemoglobin ratio (mass fraction)on 05-05-2021 HbA1c (Bld) [Mass fraction] 6.7 % 3.8-5.6 [facility] Work Phone: Comment on above: Normal [...] by: JO AVENDANO MD Date: 08/12/2018 09:22 [facility] Glucose,Bedsideon 07-18-2018 Glucose mass conc 174 mg/dL High 70-100 [facility] Comment on above: Result Comment: Test performed by glucose meter. Results may be 10%-15% lower than serum/plasma values. (CLIA ID [id number]) Performed By: #### H EMDF, CMP3, TROPN, LIPA4, HA1C2 #### [facility] freee [address] [place] [phone] Glucose mass conc 236 mg/dL High 70-100 [facility] Comment on above: Result Comment: Test performed by glucose meter. Results may be 10%-15% lower than serum/plasma values. (CLIA ID [id number]) Performed By: #### H EMDF, CMP3, TROPN, LIPA4, HA1C2 #### [facility] free[facility] [address] [place] [phone] Add on test from HISon 07-17 Add on test from HIS Accepted Normal [facility] [email or web address] [facility] Comment on above: Result Comment: Spec imen available & acceptable for analysis. Performed By: #### A DDON #### [facility] [email or web address] [address] [phone] Basic Metabolic Panelon - Anion gap molar conc 8 Normal [facility] [email or web address] [facility] Comment on above: Performed By: #### H EMDF, CMP3, TROPN, LIPA4, HA1C2 #### [facility] [address] [place] [address] Calcium mass conc 8.7 mg/dL Normal 8.4-10.4 [facility] Comment on above: Performed By: #### H EMDF, CMP3, TROPN, LIPA4, HA1C2 #### [address] [address] Chloride molar conc 108 mmol/L High 98-107 [facility] Comment on above: Performed By: #### H EMDF, CMP3, TROPN, LIPA4, HA1C2 #### [address] [phone] CO2 molar conc 24 mmol/L Normal 22-30 [facility] Comment on above: Performed By: #### H EMDF, CMP3, TROPN, LIPA4, HA1C2 #### [address] [address] Creatinine mass conc 0.85 mg/dL Normal 0.52-1.25 [facility] Comment on above: Performed By: #### H EMDF, CMP3, TROPN, LIPA4, HA1C2 #### [address] [address] GFR/1.73 sq M predicted among blacks MDRD vol rate/area (S/P/Bld) mL/min/{1.73_m2} Normal >60 [facility] Comment on above: Performed By: #### H EMDF, CMP3, TROPN, LIPA4, HA1C2 #### [address] [place] [address] GFR/1.73 sq M predicted among non-blacks MDRD vol rate/area (S/P/Bld) mL/min/{1.73_m2} Normal >60 [facility] Comment on above: Result Comment: Sour ce- MDRD equation with creatinine calibration to IDMS(NKDEP) eGFR not recommended for drug dose adjustment Performed By: #### H EMDF, CMP3, TROPN, LIPA4, HA1C2 #### [address] [address] Glucose mass conc 328 mg/dL High 70-100 [facility] Comment on above: Performed By: #### H EMDF, CMP3, TROPN, LIPA4, HA1C2 #### [address] [place] [address] Potassium molar conc 3.9 mmol/L Normal 3.5-5.1 [facility] Comment on above: Performed By: #### H EMDF, CMP3, TROPN, LIPA4, HA1C2 #### [address] [place] [address] Sodium molar conc 140 mmol/L Normal 135-145 [facility] Comment on above: Result Comment: Down time Data Recovery: Caution when interpreting results with collection date & time. Performed By: #### H EMDF, CMP3, TROPN, LIPA4, HA1C2 #### [address] [place] [address] Urea nitrogen mass conc 17 mg/dL Normal 7-20 [facility] Comment on above: Performed By: #### H EMDF, CMP3, TROPN, LIPA4, HA1C2 #### [address] [place] [address] Glucose,Bedsideon 07-17-2018 Glucose mass conc 264 mg/dL High 70-100 [facility] Comment on above: Result Comment: Test performed by glucose meter. Results may be 10%-15% lower than serum/plasma values. (CLIA ID [id number]) Performed By: #### H EMDF, CMP3, TROPN, LIPA4, HA1C2 #### [address] [place] [address] Glucose mass conc 271 mg/dL High 70-100 [facility] Comment on above: Result Comment: Test performed by glucose meter. Results may be 10%-15% lower than serum/plasma values. (CLIA ID [id number]) Performed By: #### H EMDF, CMP3, TROPN, LIPA4, HA1C2 #### [address] [address] [place] [address] Glucose mass conc 265 mg/dL High 70-100 [facility] [employer] [facility] Comment on above: Result Comment: Test performed by glucose meter. Results may be 10%-15% lower than serum/plasma values. (CLIA ID [id number]) Performed By: #### H EMDF, CMP3, TROPN, LIPA4, HA1C2 #### [address] Hemoglobin A1Con 07-17-2018 Hemoglobin A1c/Hemoglobin.total mass fraction (Bld) 217 mg/dL Normal [facility] Comment on above: Performed By: #### H EMDF, CMP3, TROPN, LIPA4, HA1C2 #### [address] Hemoglobin A1c/Hemoglobin.total mass fraction (Bld) 9.2 % High 4.0-5.7 [facility] Comment on above: Result Comment: --Hg bA1C levels may not be accurate in patients who have renal disease, received recent blood transfusions, are anemic, or who have dyshemoglobinemia. Performed By: #### H EMDF, CMP3, TROPN, LIPA4, HA1C2 #### [address] Troponin Ion 07-17-2018 Troponin I.cardiac mass conc ng/mL Normal 0.000-0.034 [facility] Comment on above: Result Comment: 0.04 6 - 0.400 = Indeterminate > 0.400 = Consider Myocardial Injury Performed By: #### T ROPN #### [address] Abdomen/Pelvis w/ Contras ton 07-16-2018 CT Abdomen/Pelvis w/ Contrast Patient Name: CINTHYA CASTILLO CT Exam Date/Time 07/16/2018 19:52:[address] Abdomen/Pelvis w/ IV Contrast (IV Onl Ordering Physician [id number] QUAN Accession Number [id number] CPT4 Codes 40326 (CT Abdomen/Pelvis w/ IV Contrast (IV Onl), Q9967 (CT ISOVUE 370MG/[id number]) Reason For Exam ABDOMINAL PAIN Report [...] Transcribed Date and Time: 07/16/2018 8:00 Normal [facility] [email or web address] [facility] Comp Metabolic Panelon 07-16 ALP enzyme act/vol 63 U/L Normal 38-126 [facility] Comment on above: Result Comment: Slig htly hemolysed, interpret with caution. Performed By: #### H EMDF, CMP3, TROPN, LIPA4, HA1C2 #### [facility] [email or web address] [address] [address] ALT enzyme act/vol 25 U/L Normal 13-69 [facility] Comment on above: Result Comment: Slig htly hemolysed, interpret with caution. Performed By: #### H EMDF, CMP3, TROPN, LIPA4, HA1C2 #### [address] [address] [place], [place] AST enzyme act/vol 34 U/L Normal 15-46 [facility] Comment on above: Result Comment: Slig htly hemolysed, interpret with caution. Performed By: #### H EMDF, CMP3, TROPN, LIPA4, HA1C2 #### [address] [address] [place], [place] Calcium mass conc 9.1 mg/dL Normal 8.4-10.4 [facility] Comment on above: Performed By: #### H EMDF, CMP3, TROPN, LIPA4, HA1C2 #### [address] [address] [place], [place] Glucose mass conc 357 mg/dL High 70-100 [facility] Comment on above: Performed By: #### H EMDF, CMP3, TROPN, LIPA4, HA1C2 #### [address] [address] [place] Protein mass conc 7.6 g/dL Normal 6.3-8.2 [facility] Comment on above: Performed By: #### H EMDF, CMP3, TROPN, LIPA4, HA1C2 #### [address] [address] [place], [place] Urea nitrogen mass conc 26 mg/dL High 7-20 [facility] Comment on above: Performed By: #### H EMDF, CMP3, TROPN, LIPA4, HA1C2 #### [address] Anion gap molar conc 11 Normal [facility] Comment on above: Performed By: #### H EMDF, CMP3, TROPN, LIPA4, HA1C2 #### [address] [place], [place] Bilirubin mass conc 0.6 mg/dL Normal 0.2-1.3 [facility] Comment on above: Performed By: #### H EMDF, CMP3, TROPN, LIPA4, HA1C2 #### [address] CO2 molar conc 23 mmol/L Normal 22-30 [facility] Comment on above: Performed By: #### H EMDF, CMP3, TROPN, LIPA4, HA1C2 #### [address] Creatinine mass conc 0.93 mg/dL Normal 0.52-1.25 [facility] Comment on above: Performed By: #### H EMDF, CMP3, TROPN, LIPA4, HA1C2 #### [address] GFR/1.73 sq M predicted among blacks MDRD vol rate/area (S/P/Bld) mL/min/{1.73_m2} Normal >60 [facility] Comment on above: Performed By: #### H EMDF, CMP3, TROPN, LIPA4, HA1C2 #### [address] GFR/1.73 sq M predicted among non-blacks MDRD vol rate/area (S/P/Bld) mL/min/{1.73_m2} Normal >60 [facility] Comment on above: Result Comment: Sour ce- MDRD equation with creatinine calibration to IDMS(NKDEP) eGFR not recommended for drug dose adjustment Performed By: #### H EMDF, CMP3, TROPN, LIPA4, HA1C2 #### [address] Albumin mass conc 4.1 g/dL Normal 3.5-5.0 [facility] Comment on above: Performed By: #### H EMDF, CMP3, TROPN, LIPA4, HA1C2 #### [address] Chloride molar conc 106 mmol/L Normal 98-107 [facility] Comment on above: Performed By: #### H EMDF, CMP3, TROPN, LIPA4, HA1C2 #### [address] Potassium molar conc 4.7 mmol/L Normal 3.5-5.1 [facility] Comment on above: Result Comment: Slig htly hemolysed, interpret with caution. Performed By: #### H EMDF, CMP3, TROPN, LIPA4, HA1C2 #### [address] Sodium molar conc 140 mmol/L Normal 135-145 [facility] Comment on above: Performed By: #### H EMDF, CMP3, TROPN, LIPA4, HA1C2 #### [address] Hemogram w/ Autodiffon 07-16 Abs Baso Cnt 0.1 10*3/uL Normal 0.0-0.2 [facility] Comment on above: Performed By: #### H EMDF, CMP3, TROPN, LIPA4, HA1C2 #### [address] Abs Neutrophile Cnt 8.5 10*3/uL High 1.8-7.0 [facility] Comment on above: Performed By: #### H EMDF, CMP3, TROPN, LIPA4, HA1C2 #### [address] Basophils/100 WBC (Bld) 0.7 % Normal 0.0-2.0 [facility] Comment on above: Performed By: #### H EMDF, CMP3, TROPN, LIPA4, HA1C2 #### [address] Eosinophils #/vol (Bld) 0.1 10*3/uL Normal 0.0-0.5 [facility] Comment on above: Performed By: #### H EMDF, CMP3, TROPN, LIPA4, HA1C2 #### [address] [place], [place] Eosinophils/100 WBC (Bld) 1.2 % Normal 1.0-6.0 [facility] Comment on above: Performed By: #### H EMDF, CMP3, TROPN, LIPA4, HA1C2 #### [address] Erythrocyte distribution width Ratio (RBC) 14.3 % Normal 11.5-14.5 [facility] Comment on above: Performed By: #### H EMDF, CMP3, TROPN, LIPA4, HA1C2 #### [address] Granulocytes/100 WBC (Bld) 81.1 % High 40.0-80.0 [facility] Comment on above: Performed By: #### H EMDF, CMP3, TROPN, LIPA4, HA1C2 #### [address] Hematocrit Volume Fraction (Bld) 39.7 % Normal 35.0-47.0 [facility] Comment on above: Performed By: #### H EMDF, CMP3, TROPN, LIPA4, HA1C2 #### [address] Hemoglobin mass conc (Bld) 13.9 g/dL Normal 11.7-16.0 [facility] Comment on above: Performed By: #### H EMDF, CMP3, TROPN, LIPA4, HA1C2 #### [address] Lymphocytes #/vol (Bld) 1.3 10*3/uL Normal 1.0-4.3 [facility] Comment on above: Performed By: #### H EMDF, CMP3, TROPN, LIPA4, HA1C2 #### [address] Lymphocytes/100 WBC (Bld) 12.7 % Low 20.0-40.0 [facility] Comment on above: Performed By: #### H EMDF, CMP3, TROPN, LIPA4, HA1C2 #### [place] [address] [address] [place], [place] MCH Entitic mass (RBC) 30.4 pg Normal 26.0-34.0 [facility] Comment on above: Performed By: #### H EMDF, CMP3, TROPN, LIPA4, HA1C2 #### [place] [address] [place], [place] MCHC mass conc (RBC) 35.0 % Normal 32.0-36.0 [facility] Comment on above: Performed By: #### H EMDF, CMP3, TROPN, LIPA4, HA1C2 #### [address] MCV Entitic volume (RBC) 87.0 fL Normal 79.0-98.0 [facility] Comment on above: Performed By: #### H EMDF, CMP3, TROPN, LIPA4, HA1C2 #### [address] Monocytes #/vol (Bld) 0.4 10*3/uL Normal 0.0-0.8 [facility] Comment on above: Performed By: #### H EMDF, CMP3, TROPN, LIPA4, HA1C2 #### [address] Monocytes/100 WBC (Bld) 4.3 % Normal 2.0-10.0 [facility] Comment on above: Performed By: #### H EMDF, CMP3, TROPN, LIPA4, HA1C2 #### [address] Platelet mean volume Entitic volume (Bld) 7.9 fL Normal 7.4-10.4 [facility] Comment on above: Performed By: #### H EMDF, CMP3, TROPN, LIPA4, HA1C2 #### [address] Platelets #/vol (Bld) 256 10*3/uL Normal 140-440 [facility] Comment on above: Performed By: #### H EMDF, CMP3, TROPN, LIPA4, HA1C2 #### [place] [address] [address] [place], [place] RBC #/vol (Bld) 4.56 10*6/uL Normal 3.80-5.20 [facility] Comment on above: Performed By: #### H EMDF, CMP3, TROPN, LIPA4, HA1C2 #### [place] [address] [address] [place], [place] WBC #/vol (Bld) 10.4 10*3/uL Normal 3.6-10.7 [facility] Comment on above: Performed By: #### H EMDF, CMP3, TROPN, LIPA4, HA1C2 #### [address] [place], [place] Lipaseon 07-16-2018 Lipase enzyme act/vol 179 U/L Normal 23-300 [facility] Comment on above: Performed By: #### H EMDF, CMP3, TROPN, LIPA4, HA1C2 #### [place] [address] [place], [place] Troponin Ion 07-16-2018 Troponin I.cardiac mass conc ng/mL Normal 0.000-0.034 [facility] Comment on above: Result Comment: 0.04 6 - 0.400 = Indeterminate > 0.400 = Consider Myocardial Injury Performed By: #### H EMDF, CMP3, TROPN, LIPA4, HA1C2 #### [place] [address] [address] [place], [place] Urinalysis,Macroon 9 Appearance Nom (U) clear Normal Clear [facility] Comment on above: Performed By: #### U AMAC, UAMIC #### [address] Bilirubin,Ur Negative Normal Negative [facility] Comment on above: Performed By: #### U AMAC, UAMIC #### [place] [address] [place], [place] Color Nom (U) yellow Normal Lt. Yellow [facility] Comment on above: Performed By: #### U AMAC, UAMIC #### [facility] [address] [place], [place] Glucose Ql (U) 1000 mg/dL Normal Negative [facility] Comment on above: Performed By: #### U AMAC, UAMIC #### [place] [address] [address] [place], [place] Ketone,Urine Negative Normal Negative [facility] Comment on above: Performed By: #### U AMAC, UAMIC #### [place] [address] [address] [place], [place] Nitrite Ql (U) Negative Normal Negative [facility] Comment on above: Performed By: #### U AMAC, UAMIC #### [place] [address] [address] [place], [place] Occult Blood,Ur 25 {RBC}/uL Normal Negative [facility] Comment on above: Performed By: #### U AMAC, UAMIC #### [place] [address] [address] [place], [place] pH (U) 5.0 Normal 5.0-8.0 [facility] Comment on above: Performed By: #### U AMAC, UAMIC #### [place] [address] [address] [place] Protein mass conc (U) 150 mg/dL Normal Negative [facility] Comment on above: Performed By: #### U AMAC, UAMIC #### [place] [address] [address] [place], [place] Specific [place],Urine 1.015 Normal 1.005-1.030 [facility] Comment on above: Performed By: #### U AMAC, UAMIC #### [place] [address] [address] [place], [place] Urobilinogen Qn (U) NORM Normal 0-1 [facility] Comment on above: Performed By: #### U AMAC, UAMIC #### [place] [address] [address] [place], [place] WBC #/vol (Bld) Negative Normal Negative [facility] Comment on above: Performed By: #### U AMAC, UAMIC #### [facility] [address] [place], [place] Urinalysis,Microscopicon Bacteria LM.HPF #/area (Urine sed) Moderate (6-50) Normal Negative [facility] Comment on above: Performed By: #### U AMAC, UAMIC #### [place] [address] [address] [place], [place] Epithelial cells LM.HPF #/area (Urine sed) 6 - 10 Normal 3-5 [facility] Comment on above: Performed By: #### U AMAC, UAMIC #### [place] [address] [address] [place], [place] RBC LM.HPF #/area (Urine sed) 3 - 5 Normal 0-2 [facility] Comment on above: Performed By: #### U AMAC, UAMIC #### [address] [place] [address] [address] [place], [place] Volume,Urine 8-12 ml Normal [facility] Comment on above: Performed By: #### U AMAC, UAMIC #### [place] [address] [address] [place], [place] WBC LM.HPF #/area (Urine sed) 3 - 5 Normal 0-5 [facility] Comment on above: Performed By: #### U AMAC, UAMIC #### [place] [address] [place], [place] Comprehensive Panelon 2018 ALP enzyme act/vol 75 U/L Normal 46-116 [facility] Comment on above: Performed By: #### P 14 #### [facility] [address] [place], [place] [address] Bilirubin mass conc 0.4 mg/dL Normal 0.2-1.0 [facility] Comment on above: Performed By: #### P 14 #### [facility] [address] [place], [place] [address] Protein mass conc 7.8 g/dL Normal 6.4-8.2 [facility] Comment on above: Performed By: #### P 14 #### [facility] [address] [place], [place] [address] ALT enzyme act/vol 25 U/L Normal 12-78 [facility] Comment on above: Performed By: #### P 14 #### [facility] [address] [place], [place] [address] AST enzyme act/vol 13 U/L Normal 9-37 [facility] Comment on above: Performed By: #### P 14 #### [facility] [address] [place], [place] [address] Creatinine mass conc 0.99 mg/dL High 0.51-0.95 [facility] Comment on above: Performed By: #### P 14 #### [facility] [address] [place], [place] [address] Albumin mass conc 3.9 g/dL Normal 3.4-5.0 [facility] Comment on above: Performed By: #### P 14 #### [facility] [address] [place] [address] Anion gap molar conc 12 mmol/L Normal 8-16 [facility] Comment on above: Performed By: #### P 14 #### [facility] [address] [place], [place] [address] CO2 molar conc 25 mmol/L Normal 21-32 [facility] Comment on above: Performed By: #### P 14 #### [facility] [address] [place], [place] [address] Glucose mass conc 92 mg/dL Normal 70-99 [facility] Comment on above: Performed By: #### P 14 #### [facility] [address] [place] [address] Urea nitrogen mass conc 19 mg/dL High 7-18 [facility] Comment on above: Performed By: #### P 14 #### [facility] [address] [place] [address] Calcium mass conc 9.3 mg/dL Normal 8.5-10.1 [facility] Comment on above: Performed By: #### P 14 #### [facility] [address] [place] [address] Chloride molar conc 108 mmol/L High 98-107 [facility] Comment on above: Performed By: #### P 14 #### [facility] [address] [place] [address] Potassium molar conc 3.4 mmol/L Low 3.5-5.1 [facility] Comment on above: Performed By: #### P 14 #### [facility] [address] [place] [address] Sodium molar conc 142 mmol/L Normal 136-145 [facility] Comment on above: Performed By: #### P 14 #### [facility] [address] [place] [address] ED NOTEon 06-27-2018 ED NOTE HNO ID: [id number] Author: Sarah PattenRn) Osiris RN Service: Nursing Author Type: Registered Nurse Type: ED Notes Filed: 06/27/2018 10:07 AM Note Text: Clean catch urine specimen obtained and sent. [facility] ED NOTE HNO ID: [id number] Author: Sarah PattenRn) SUNDEEP Newell Service: Nursing Author Type: Registered Nurse Type: ED Notes Filed: 06/27/2018 9:55 AM Note Text: ED U/S notified that patient is ready [facility] ED NOTE HNO ID: [id number] Author: Sarah PattenRn) Osiris RN Service: Nursing Author Type: Registered Nurse Type: ED Notes Filed: 06/27/2018 9:44 AM Note Text: Pt states that she can not ambulate to the bathroom, pt able to stand and ambulate in the room, pt assisted onto bedside commode. [facility] ED NOTE HNO ID: [id number] Author: Ara (Rn) SUNDEEP Landrum Service: ? Author Type: Registered Nurse Type: ED Notes Filed: 06/27/2018 8:29 AM Note Text: Bed: 11-ED Expected date: 06/27/18 Expected time: Means of arrival: Comments: Squad, weak legs [facility] ED NOTE HNO ID: [id number] Author: Sarah PattenRn) Osiris RN Service: Nursing Author Type: Registered Nurse Type: ED Notes Filed: 06/27/2018 8:21 AM Note Text: Pt states that her leg is starting to bother her, "underneath her good leg". States pain began last night. Normal [facility] ED NOTE HNO ID: [id number] Author: Sarah (Rn) SUNDEEP Newell Service: Nursing [...] patient understanding. Nurse documenting pt response. Normal [facility] ED PROV NOTEon 06-27-2018 Protein mass conc HNO ID: [id number] Author: Bhavana Dewitt MD Service: Emergency Medicine [...] condition. Bhavana Dewitt MD 06/27/18 1253 Normal [facility] Protein mass conc HNO ID: [id number] Author: Bhavana Dewitt MD Service: Emergency Medicine Author Type: Physician Type: ED Provider Notes Filed: 07/03/2018 2:32 PM Note Text: ED Provider Note Patient Name: Cinthya Castillo SERVICE DATE: 06/27/18 History Patient presents with: Weakness: Pt is from half-way. Pt states this morning that she began [...] PM Bhavana Dewitt MD 07/03/18 1432 Normal [facility] Glucose Meteron 06-27-2018 Glucose mass conc 97 mg/dL Normal 70-99 [facility] Comment on above: Result Comment: SUNDEEP LAKHANI MD NOTIFIED Performed By: #### P 14 #### [place] [address] Hemogramon 06-27-2018 Erythrocyte distribution width Ratio (RBC) 13.3 % Normal 11.7-14.4 [facility] Comment on above: Performed By: #### P 14 #### [facility] [address] [place] [address] Hematocrit Volume Fraction (Bld) 38.8 % Normal 34.1-44.9 [facility] Comment on above: Performed By: #### P 14 #### [facility] [address] [place] [address] Hemoglobin mass conc (Bld) 13.2 g/dL Normal 11.2-15.7 [facility] Comment on above: Performed By: #### P 14 #### [facility] [address] [place] [address] MCH Entitic mass (RBC) 29.1 pg Normal 25.6-32.2 [facility] Comment on above: Performed By: #### P 14 #### [facility] [address] [place] [address] MCHC mass conc (RBC) 34.0 % Normal 31.6-34.8 [facility] Comment on above: Performed By: #### P 14 #### [facility] [address] [place] [address] MCV Entitic volume (RBC) 85.7 fL Normal 79.4-94.8 [facility] Comment on above: Performed By: #### P 14 #### [facility] [address] [place] [address] Platelet mean volume Entitic volume (Bld) 10.1 fL Normal 9.4-12.3 [facility] Comment on above: Performed By: #### P 14 #### [facility] [address] [place] [address] Platelets #/vol (Bld) 287 thou/cmm Normal 182-369 [facility] Comment on above: Performed By: #### P 14 #### [facility] [address] [place] [address] RBC #/vol (Bld) 4.53 mil/cmm Normal 3.93-5.22 [facility] Comment on above: Performed By: #### P 14 #### [facility] [address] [place] [address] RDW SD 41.7 fl Normal 36.4-46.3 [facility] Comment on above: Performed By: #### P 14 #### [facility] [address] [place] [address] WBC #/vol (Bld) 8.54 thou/cmm Normal 3.98-10.04 [facility] Comment on above: Performed By: #### P 14 #### [facility] [address] [place] [address] Lipase Bloodon 06-27-2018 Lipase Blood 122 U/L Normal 73-393 [facility] Comment on above: Performed By: #### L IP #### [place] [address] MDRD GFRon 06-27-2018 GFR/1.73 sq M predicted among non-blacks MDRD vol rate/area (S/P/Bld) 57.91 mL/min/{1.73_m2} Normal >60mL/min/1. 73m2 [facility] Comment on above: Result Comment: If t he patient is , multiply the result by 1.210. Performed By: #### L IP #### [place] [address] Urinalysis Routineon 019 Bacteria LM.HPF #/area (Urine sed) NONE Normal None [facility] Comment on above: Performed By: #### L IP #### [place] [address] Ep Cells Urine 8.2 /hpf High 0.0-5.0 [facility] Comment on above: Performed By: #### L IP #### [place] [address] Hyaline Cast 1.4 /lpf High 0.0-1.0 [facility] Comment on above: Performed By: #### L IP #### [place] [address] RBC,Urine 2.4 /hpf Normal 0.0-5.0 [facility] Comment on above: Performed By: #### L IP #### [facility] [address] [place], [place] [address] WBC, Urine 5.3 /hpf High 0.0-5.0 [facility] Comment on above: Performed By: #### L IP #### [facility] [address] [place] [address] Appearance Nom (U) CLEAR Normal [facility] Comment on above: Performed By: #### L IP #### [facility] [address] [place] [address] Bilirubin Urine Negative Normal Negative [facility] Comment on above: Performed By: #### L IP #### [facility] [address] [place] [address] Color Nom (U) YELLOW Normal [facility] Comment on above: Performed By: #### L IP #### [facility] [address] [place] [address] Glucose Ql (U) Negative Normal Negative [facility] Comment on above: Performed By: #### L IP #### [facility] [address] [place] [address] Hemoglobin,Urine Negative Normal Negative [facility] Comment on above: Performed By: #### L IP #### [facility] [address] [place] [address] Ketone Urine Negative Normal Negative [facility] Comment on above: Performed By: #### L IP #### [facility] [address] [place] [address] Leukocytes Esterase Negative Normal Negative [facility] Comment on above: Performed By: #### L IP #### [facility] [address] [place] [address] Nitrites Urine Negative Normal Negative [facility] Comment on above: Performed By: #### L IP #### [facility] [address] [place] [address] pH (U) 7.0 [pH] Normal 5.0-8.0 [facility] Comment on above: Performed By: #### L IP #### [facility] [address] [place] [address] Protein mass conc (U) 300 mg/dL Abnormal Negative [facility] Comment on above: Performed By: #### L IP #### [facility] [address] [place], [place] [address] Specific [place], Ur 1.025 Normal 1.005-1.030 [facility] Comment on above: Performed By: #### L IP #### [facility] [address] [place], [place] [address] Urobilinogen,Ur 1.0 EU/dL Normal 0.0-1.0 [facility] Comment on above: Performed By: #### L IP #### [facility] [address] [place], [place] [address] XR Chest Mobile 1 viewon XR Chest [...] by: DENNIS MORALES MD Date: 05/06/2018 23:57 [facility] XR Hip Left 2-3 viewson 04-22 XR [...] by: DENNIS MORALES MD Date: 05/07/2018 00:04 [facility] XR Knee Left complete 4 plus viewson [...] by: DENNIS MORALES MD Date: 05/06/2018 23:58 [facility] XR Spine Lumbar Sacral 2 -3 viewson [...] by: DENNIS MORALES MD Date: 05/07/2018 00:07 [facility] ALLIED HEALTHon 03-15-2018 ALLIED HEALTH HNO ID: [id number] Author: Tereso Caraballo (Chaplain), Student Service: Spiritual Care Author Type: Product Promoter Sales Person Type: Allied Health Filed: 03/15/2018 12:03 PM Note Text: SPIRITUALCARE Spiritual Care Visit- Brief Note Name: Cinthya Castillo Date: March 15, 2018 Notes: Scrubs delivered. Product Promoter Sales Person Signature: Chaplain Panchito Delivery Manager To contact the Spiritual Care Department: Please call [phone] or Page the On-Call Product Promoter Sales Person at pager [phone] Thank you for the opportunity to be of service. This is an electronically created document. IF PRINTED, PLEASE DO NOT REMOVE FROM THE CHART OR MODIFY PRINTED COPY. Normal [facility] Basic Panelon 03-15-2018 Creatinine mass conc 1.14 mg/dL High 0.51-0.95 [facility] Comment on above: Performed By: #### P 14 #### [facility] [address] [place] [address] Anion gap molar conc 11 mmol/L Normal 8-16 [facility] Comment on above: Performed By: #### P 14 #### [facility] [address] [place] [address] Calcium mass conc 8.8 mg/dL Normal 8.5-10.1 [facility] Comment on above: Performed By: #### P 14 #### [place] [address] CO2 molar conc 27 mmol/L Normal 21-32 [facility] Comment on above: Performed By: #### P 14 #### [facility] [address] [place] [address] Glucose mass conc 99 mg/dL Normal 70-99 [facility] Comment on above: Performed By: #### P 14 #### [facility] [address] [place] [address] Urea nitrogen mass conc 28 mg/dL High 7-18 [facility] Comment on above: Performed By: #### P 14 #### [facility] [address] [place] [address] Chloride molar conc 108 mmol/L High 98-107 [facility] Comment on above: Performed By: #### P 14 #### [facility] [address] [place] [address] Potassium molar conc 4.1 mmol/L Normal 3.5-5.1 [facility] Comment on above: Performed By: #### P 14 #### [facility] [address] [place] [address] Sodium molar conc 142 mmol/L Normal 136-145 [facility] Comment on above: Performed By: #### P 14 #### [facility] [address] [place] [address] CASE MANAGEMon 03-15-2018 CASE MANAGEM HNO ID: [id number] Author: Addis (Rn) SUNDEEP Tran Service: Care Management Author Type: Registered Nurse Type: Care Mgt Progress Note Filed: 03/15/2018 9:16 AM Note Text: CARE MANAGEMENT DISCHARGE NOTE SERVICE DATE: 03/15/2018 SERVICE TIME: 9:11 AM LOS: 14 days Admission Date: 03/01/2018 DISCHARGE ARRANGEMENT (list agency and phone number) assisted facility: Was an expedited discharge program used? No Provider: [facility] CAREGIVER ASSESSMENT: Caregiver is ready, willing and able to meet the patient's needs as recommended by the inter-professional team? No Caregiver Needed Patient's transition needs and plan for meeting these needs: dc to [facility] Does the patient have an acute stroke diagnosis, or has the patient had a stroke during this admission? No HANDOFF COMMUNICATION: dc orders sent through [employer] TRANSPORTATION ARRANGEMENTS: Mode of Transportation: [employer] Agency and Phone #: [facility] ambulance ( [facility] ) [phone] / [phone]. Date of Trip: 03/15/2018 Type of Service: Wheelchair Is Patient Medicaid Pending: No Discussion of financial coverage occurred with Patient . Registration Rep Location: [facility] Destination: [facility] Care Management Responsibility: None Estimated Charge: n/a Approving Women'S Lacrosse Coach: n/a ADDITIONAL CONTACT RESOURCES: n/a Discharge Information Row Name ED to Hosp-Admission (Current) from 03/01/2018 in [place] [address] MEDICAL Residential Facility Agency [place] [address] Discharge orders completed. Patient will dc to [place] [facility]. Patient will travel via wheelchair ambulette, char house supervisor time is 1030. Patient and RN aware. SIGNATURE: Addis Tran RN PATIENT NAME: Cinthya Castillo DATE: March 15, 2018 TIME: 9:11 AM PAGER/CONTACT #: [phone] [facility] CNDSon 03-15-2018 CNDS HNO ID: [id number] Author: Dez Vicente (ResGloria Esteban MD Service: Hospital Medicine Author Type: Resident Type: Discharge Summaries Filed: 03/15/2018 1:45 PM Note Text: Attestation signed by Peter Delarosa at 03/16/2018 8:03 AM Teaching Attending Note: I personally saw and evaluated the patient. I reviewed the resident's note. I agree with the resident's assessment and plan unless otherwise noted. Peter Delarosa [place] [facility] [place] March 16, 2018 8:02 AM DISCHARGE [...] PATIENT CONDITION AT DISCHARGE: Stable DISCHARGE DISPOSITION: Residential Facility Discharge Physical Exam: VITAL SIGNS: BP [...] ED to Hosp-Admission (Current) from 03/01/[address] Residential [place] [id number] The patient's risk for 30-day readmission is [...] Dez Vicente Cha, MD PAGER/CONTACT #: Pager: [phone] DATE: March 14, 2018 TIME: 5:02 PM Normal [facility] CONSULT PROGon 03-15-2018 Protein mass conc HNO ID: [id number] Author: Savana Souza Service: Endocrinology Author Type: [...] 1,000 mg BID Savana Souza MD Normal [facility] Glucose Meteron 03-15-2018 Glucose mass conc 111 mg/dL High 70-99 [facility] Comment on above: Result Comment: RN N OTIFIED Performed By: #### G LMET #### [facility] [address] [place] [address] Hemogram/Diffon 03-15-2018 Abs Immature Grans 0.27 thou/cmm High 0.00-0.05 [facility] Comment on above: Performed By: #### P 14 #### [facility] [address] [place] [address] Abs. Baso 0.06 thou/cmm Normal 0.01-0.08 [facility] Comment on above: Result Comment: Smea r scanned; tech agrees with automated differential Performed By: #### P 14 #### [facility] [address] [place] [address] [address] [place] 0.90 thou/cmm High 0.27-0.70 [facility] Comment on above: Performed By: #### P 14 #### [facility] [address] [place] [address] Abs. Neut (ANC) 9.19 thou/cmm High 1.56-6.13 [facility] Comment on above: Performed By: #### P 14 #### [facility] [address] [place] [address] Basophils/100 WBC (Bld) 0.5 % Normal [facility] Comment on above: Performed By: #### P 14 #### [facility] [address] [place] [address] Eosinophils #/vol (Bld) 0.56 thou/cmm High 0.00-0.31 [facility] Comment on above: Performed By: #### P 14 #### [facility] [address] [place] [address] Eosinophils/100 WBC (Bld) 4.4 % Normal [facility] Comment on above: Performed By: #### P 14 #### [facility] [address] [place] [address] Immature Grans 2.10 % Normal [facility] Comment on above: Performed By: #### P 14 #### [facility] [address] [place] [address] Lymphocytes #/vol (Bld) 1.65 thou/cmm Normal 1.18-3.74 [facility] Comment on above: Performed By: #### P 14 #### [facility] [address] [place] [address] Lymphocytes/100 WBC (Bld) 13.1 % Normal [facility] Comment on above: Performed By: #### P 14 #### [facility] [address] [place] [address] Monocytes/100 WBC (Bld) 7.1 % Normal [facility] Comment on above: Performed By: #### P 14 #### [facility] [address] [place] [address] Seg Neutrophil 72.8 % Normal [facility] Comment on above: Performed By: #### P 14 #### [facility] [address] [place] [address] Erythrocyte distribution width Ratio (RBC) 12.0 % Normal 11.7-14.4 [facility] Comment on above: Performed By: #### P 14 #### [facility] [address] [place] [address] Hematocrit Volume Fraction (Bld) 32.4 % Low 34.1-44.9 [facility] Comment on above: Performed By: #### P 14 #### [facility] [address] [place] [address] Hemoglobin mass conc (Bld) 10.3 g/dL Low 11.2-15.7 [facility] Comment on above: Performed By: #### P 14 #### [facility] [address] [place] [address] MCH Entitic mass (RBC) 30.4 pg Normal 25.6-32.2 [facility] Comment on above: Performed By: #### P 14 #### [facility] [address] [place] [address] MCHC mass conc (RBC) 31.8 % Normal 31.6-34.8 [facility] Comment on above: Performed By: #### P 14 #### [facility] [address] [place] [address] MCV Entitic volume (RBC) 95.6 fL High 79.4-94.8 [facility] Comment on above: Performed By: #### P 14 #### [facility] [address] [place] [address] Platelet mean volume Entitic volume (Bld) 9.5 fL Normal 9.4-12.3 [facility] Comment on above: Performed By: #### P 14 #### [facility] [address] [place], [place] [address] Platelets #/vol (Bld) 446 thou/cmm High 182-369 A [facility] Comment on above: Performed By: #### P 14 #### [facility] [address] [place] [address] RBC #/vol (Bld) 3.39 mil/cmm Low 3.93-5.22 [facility] Comment on above: Performed By: #### P 14 #### [place] [address] RDW SD 42.3 fl Normal 36.4-46.3 [facility] Comment on above: Performed By: #### P 14 #### [facility] [address] [place] [address] WBC #/vol (Bld) 12.62 thou/cmm High 3.98-10.04 [facility] Comment on above: Performed By: #### P 14 #### [place] [address] MDRD GFRon 03-15-2018 GFR/1.73 sq M predicted among non-blacks MDRD vol rate/area (S/P/Bld) 49.26 mL/min/{1.73_m2} Normal >60mL/min/1. 73m2 [facility] Comment on above: Result Comment: If t he patient is , multiply the result by 1.210. Performed By: #### G FR #### [facility] [address] [place] [address] NURSING PROGon 03-15-2018 Protein mass conc HNO ID: [id number] Author: Fabby (Rn) SUNDEEP Powell Service: (none) Author Type: Registered Nurse Type: Nursing Progress Note Filed: 03/15/2018 9:53 AM Note Text: Called to give report to jeovany braun; report given to Nikki Cerda [facility] PROGRESSon 03-15-2018 Protein mass conc HNO ID: [id number] Author: Dez Vicente (Mitchell Esteban MD Service: [...] still be discharged with antibiotics. Spoke to healthcare consultant, she'll beleaving the hospital at 10:30 AM. Normal [facility] Basic Panelon 03-14-2018 Creatinine mass conc 1.10 mg/dL High 0.51-0.95 [facility] Comment on above: Performed By: #### P 14 #### [place] [address] Anion gap molar conc 11 mmol/L Normal 8-16 [facility] Comment on above: Performed By: #### P 14 #### [place] [address] CO2 molar conc 26 mmol/L Normal 21-32 [facility] Comment on above: Performed By: #### P 14 #### [place] [address] Glucose mass conc 145 mg/dL High 70-99 [facility] Comment on above: Performed By: #### P 14 #### [facility] [address] [place] [address] Urea nitrogen mass conc 28 mg/dL High 7-18 [facility] Comment on above: Performed By: #### P 14 #### [facility] [address] [place] [address] Calcium mass conc 8.8 mg/dL Normal 8.5-10.1 [facility] Comment on above: Performed By: #### P 14 #### [place] [address] Chloride molar conc 107 mmol/L Normal 98-107 [facility] Comment on above: Performed By: #### P 14 #### [facility] [address] [place] [address] Potassium molar conc 4.0 mmol/L Normal 3.5-5.1 [facility] Comment on above: Performed By: #### P 14 #### [facility] [address] [place] [address] Sodium molar conc 140 mmol/L Normal 136-145 [facility] Comment on above: Performed By: #### P 14 #### [facility] [address] [place] [address] CASE MANAGEMon 03-14-2018 CASE MANAGEM HNO ID: [id number] Author: Radha (Rn) SUNDEEP Thomas Service: Care Management Author Type: Registered Nurse Type: Care Mgt Progress Note Filed: 03/14/2018 3:37 PM Note Text: CARE MANAGEMENT DISCHARGE NOTE SERVICE DATE: 03/14/2018 SERVICE TIME: 3:33 PM LOS: 13 days Admission Date: 03/01/2018 DISCHARGE ARRANGEMENT (list agency and phone number) assisted facility: Was an expedited discharge program used? No Provider: [facility] CAREGIVER ASSESSMENT: Caregiver is ready, willing and able to meet the patient's needs as recommended by the inter-professional team? d/c to SNF Patient's transition needs and plan for meeting these needs: d/c to SNF Does the patient have an acute stroke diagnosis, or has the patient had a stroke during this admission? No HANDOFF COMMUNICATION: Cinder Snapper: left with Clifton Murray Payor Digitizer Operator: left with Karen Tello CM nurse to call report to [facility] TRANSPORTATION ARRANGEMENTS: wheelchair through [facility] ADDITIONAL CONTACT RESOURCES: n//a Discharge Information Row Name ED to Hosp-Admission (Current) from 03/01/2018 in [place] [address] [facility] Res[facility] Facility Agency [place] [phone] Patient d/c today, orders complete. Updated patient at bedside. RN and Ornamental Metal Worker Helper notified of time. Community CM Clifton Murray notified of d/c today. No other needs identified. Patient d/c today. SIGNATURE: Radha Thomas RN PATIENT NAME: Cinthya Castillo DATE: March 14, 2018 TIME: 3:33 PM PAGER/CONTACT #: [phone] [facility] CASE MANAGEM HNO ID: [id number] Author: Radha PattenRn) SUNDEEP Thomas Service: Care Management Author Type: Registered Nurse Type: Care Mgt Progress Note Filed: 03/14/2018 1:41 PM Note Text: CARE MANAGEMENT PROGRESS NOTE SERVICE DATE: 03/14/2018 SERVICE TIME: 1:34 PM LOS: 13 days Needs Prior to Discharge: Ready for Discharge;Discharge Transportation Update from [facility], Dajuan Gil, stating we can set up transport for d/c today. Spoke to MD Dr. Esteban regarding auth to d/c. Stated he would d/c patient today. Left VM with Clifton Murray, care-watch electrician/molding line assistant and left with Karen Morales at [phone], Elisha AGUIRRE to follow up with patient. Will await d/c orders. SIGNATURE: Radha Thomas RN PATIENT NAME: Cinthya Castillo DATE: March 14, 2018 TIME: 1:33 PM PAGER/CONTACT #: [phone] [facility] CASE MANAGEM HNO ID: [id number] Author: Radha PattenRn) SUNDEEP Thomas Service: Care Management Author Type: Registered Nurse Type: Care Mgt Progress Note Filed: 03/14/2018 1:14 PM Note Text: CARE MANAGEMENT PROGRESS NOTE SERVICE DATE: 03/14/2018 SERVICE TIME: 1:09 PM LOS: 13 days Auth obtained for d/c today. However, [facility] liaison is stating he cannot accept this patient if elisha will only approve 3 days for teaching. Provided chalo Courtney with elisha member service representative phone number to discuss his concerns. Will continue to follow. SIGNATURE: Radha Thomas RN PATIENT NAME: Cinthya Castillo DATE: March 14, 2018 TIME: 1:09 PM PAGER/CONTACT #: [phone] [facility] CASE MANAGEM HNO ID: [id number] Author: Radha (Rn) SUNDEEP Thomas Service: Care Management Author Type: Registered Nurse Type: Care Mgt Progress Note Filed: 03/14/2018 11:34 AM Note Text: CARE MANAGEMENT PROGRESS NOTE SERVICE DATE: 03/14/2018 SERVICE TIME: .now LOS: 13 days Needs Prior to Discharge: Insurance Authorization;Discharg e Transportation Awaiting pre-cert for d/c to [facility]. Started today. SIGNATURE: Radha Thomas RN PATIENT NAME: Cinthya Castillo DATE: March 14, 2018 TIME: 11:33 AM PAGER/CONTACT #: [phone] [facility] CONSULT PROGon 03-14-2018 Protein mass conc HNO ID: [id number] Author: Savana Souza Service: Endocrinology Author Type: [...] 1,000 mg BID Savana Souza MD Normal [facility] Hemogram/Diffon 03-14-2018 Abs Immature Grans 0.44 thou/cmm High 0.00-0.05 [facility] Comment on above: Performed By: #### P 14 #### [facility] [address] [place] [address] Abs. Baso 0.08 thou/cmm Normal 0.01-0.08 [facility] Comment on above: Result Comment: Smea r scanned; tech agrees with automated differential Performed By: #### P 14 #### [facility] [address] [place] [address] [place] 0.90 thou/cmm High 0.27-0.70 [facility] Comment on above: Performed By: #### P 14 #### [place] [address] Abs. Neut (ANC) 8.98 thou/cmm High 1.56-6.13 [facility] Comment on above: Performed By: #### P 14 #### [place] [address] Basophils/100 WBC (Bld) 0.6 % Normal A [facility] Comment on above: Performed By: #### P 14 #### [facility] [address] [place] [address] Eosinophils #/vol (Bld) 0.62 thou/cmm High 0.00-0.31 [facility] Comment on above: Performed By: #### P 14 #### [facility] [address] [place] [address] Eosinophils/100 WBC (Bld) 4.8 % Normal [facility] Comment on above: Performed By: #### P 14 #### [facility] [address] [place] [address] Immature Grans 3.40 % Normal [facility] Comment on above: Performed By: #### P 14 #### [facility] [address] [place] [address] Lymphocytes #/vol (Bld) 1.99 thou/cmm Normal 1.18-3.74 [facility] Comment on above: Performed By: #### P 14 #### [facility] [address] [place] [address] Lymphocytes/100 WBC (Bld) 15.3 % Normal [facility] Comment on above: Performed By: #### P 14 #### [facility] [address] [place] [address] Monocytes/100 WBC (Bld) 6.9 % Normal [facility] Comment on above: Performed By: #### P 14 #### [facility] [address] [place] [address] Seg Neutrophil 69.0 % Normal [facility] Comment on above: Performed By: #### P 14 #### [facility] [address] [place] [address] Erythrocyte distribution width Ratio (RBC) 12.0 % Normal 11.7-14.4 [facility] Comment on above: Performed By: #### P 14 #### [facility] [address] [place] [address] Hematocrit Volume Fraction (Bld) 31.8 % Low 34.1-44.9 [facility] Comment on above: Performed By: #### P 14 #### [facility] [address] [place] [address] Hemoglobin mass conc (Bld) 10.2 g/dL Low 11.2-15.7 [facility] Comment on above: Performed By: #### P 14 #### [facility] [address] [place] [address] MCH Entitic mass (RBC) 30.9 pg Normal 25.6-32.2 [facility] Comment on above: Performed By: #### P 14 #### [facility] [address] [place] [address] MCHC mass conc (RBC) 32.1 % Normal 31.6-34.8 [facility] Comment on above: Performed By: #### P 14 #### [facility] [address] [place] [address] MCV Entitic volume (RBC) 96.4 fL High 79.4-94.8 [facility] Comment on above: Performed By: #### P 14 #### [facility] [address] [place] [address] Platelet mean volume Entitic volume (Bld) 9.8 fL Normal 9.4-12.3 [facility] Comment on above: Performed By: #### P 14 #### [facility] [address] [place] [address] Platelets #/vol (Bld) 466 thou/cmm High 182-369 A [facility] Comment on above: Performed By: #### P 14 #### [facility] [address] [place] [address] RBC #/vol (Bld) 3.30 mil/cmm Low 3.93-5.22 [facility] Comment on above: Performed By: #### P 14 #### [facility] [address] [place] [address] RDW SD 42.4 fl Normal 36.4-46.3 [facility] Comment on above: Performed By: #### P 14 #### [facility] [address] [place] [address] WBC #/vol (Bld) 13.01 thou/cmm High 3.98-10.04 [facility] Comment on above: Performed By: #### P 14 #### [facility] [address] [place] [address] PLAN OF CAREon 03-14-2018 PLAN OF CARE O ID: [id number] Author: Gabo Jackson Service: Pharmacy Author Type: [...] PharmD March 14, 2018 4:48 PM Pager: [phone] 03/14/2018 4:48 PM Medication List START taking [...] metoprolol tartrate (short acting) 25 mg tablet [facility] PLAN OF CARE O ID: [id number] Author: Laura Harvey (Pharmacist) Service: Pharmacy Author [...] Medication List. Patient is being discharged to [facility] ([facility]). Many medications were adjusted during admission. Changes to medications EXTRACT PULLER will be continued at [facility]. Course of oral antibiotics also being finish at [facility] (enddate 03/18). LAURA HARVEY, PHARMACIST [...] tartrate (short acting) 25 mg tablet Normal [facility] PROGRESSon 03-14-2018 Protein mass conc HNO ID: [id number] Author: Peter Delarosa Service: Hospital Medicine Author [...] Endo insulin regimen input. Peter Delarosa [place] [facility] [place] March 14, 2018 4:19 PM Normal [facility] Basic Panelon 03-13-2018 Creatinine mass conc 1.35 mg/dL High 0.51-0.95 [facility] Comment on above: Performed By: #### P 14 #### [facility] [address] [place] [address] Anion gap molar conc 11 mmol/L Normal 8-16 [facility] Comment on above: Performed By: #### P 14 #### [facility] [address] [place] [address] CO2 molar conc 27 mmol/L Normal 21-32 [facility] Comment on above: Performed By: #### P 14 #### [facility] [address] [place] [address] Glucose mass conc 136 mg/dL High 70-99 [facility] Comment on above: Performed By: #### P 14 #### [facility] [address] [place] [address] Urea nitrogen mass conc 28 mg/dL High 7-18 [facility] Comment on above: Performed By: #### P 14 #### [facility] [address] [place] [address] Calcium mass conc 8.7 mg/dL Normal 8.5-10.1 [facility] Comment on above: Performed By: #### P 14 #### [facility] [address] [place] [address] Chloride molar conc 107 mmol/L Normal 98-107 [facility] Comment on above: Performed By: #### P 14 #### [facility] [address] [place] [address] Potassium molar conc 4.1 mmol/L Normal 3.5-5.1 [facility] Comment on above: Performed By: #### P 14 #### [facility] [address] [place] [address] Sodium molar conc 141 mmol/L Normal 136-145 [facility] Comment on above: Performed By: #### P 14 #### [facility] [address] [place] [address] Hemogram/Diffon 03-13-2018 Abs Immature Grans 0.57 thou/cmm High 0.00-0.05 [facility] Comment on above: Performed By: #### P 14 #### [facility] [address] [place] [address] Abs. Baso 0.08 thou/cmm Normal 0.01-0.08 [facility] Comment on above: Result Comment: Smea r scanned; tech agrees with automated differential Performed By: #### P 14 #### [facility] [address] [place] [address] [place] 1.11 thou/cmm High 0.27-0.70 [facility] Comment on above: Performed By: #### P 14 #### [facility] [address] [place] [address] Abs. Neut (ANC) 7.88 thou/cmm High 1.56-6.13 [facility] Comment on above: Performed By: #### P 14 #### [facility] [address] [place] [address] Basophils/100 WBC (Bld) 0.6 % Normal A [facility] Comment on above: Performed By: #### P 14 #### [facility] [address] [place] [address] Eosinophils #/vol (Bld) 0.60 thou/cmm High 0.00-0.31 [facility] Comment on above: Performed By: #### P 14 #### [facility] [address] [place], [place] [address] Eosinophils/100 WBC (Bld) 4.8 % Normal [facility] Comment on above: Performed By: #### P 14 #### [facility] [address] [place] [address] Immature Grans 4.50 % Normal [facility] Comment on above: Performed By: #### P 14 #### [facility] [address] [place] [address] Lymphocytes #/vol (Bld) 2.34 thou/cmm Normal 1.18-3.74 [facility] Comment on above: Performed By: #### P 14 #### [facility] [address] [place], [place] [address] Lymphocytes/100 WBC (Bld) 18.6 % Normal [facility] Comment on above: Performed By: #### P 14 #### [facility] [address] [place], [place] [address] Monocytes/100 WBC (Bld) 8.8 % Normal [facility] Comment on above: Performed By: #### P 14 #### [facility] [address] [place] [address] Seg Neutrophil 62.7 % Normal [facility] Comment on above: Performed By: #### P 14 #### [facility] [address] [place] [address] Erythrocyte distribution width Ratio (RBC) 12.2 % Normal 11.7-14.4 [facility] Comment on above: Performed By: #### P 14 #### [facility] [address] [place] [address] Hematocrit Volume Fraction (Bld) 33.7 % Low 34.1-44.9 [facility] Comment on above: Performed By: #### P 14 #### [facility] [address] [place] [address] Hemoglobin mass conc (Bld) 10.6 g/dL Low 11.2-15.7 [facility] Comment on above: Performed By: #### P 14 #### [facility] [address] [place] [address] MCH Entitic mass (RBC) 30.2 pg Normal 25.6-32.2 [facility] Comment on above: Performed By: #### P 14 #### [facility] [address] [place] [address] MCHC mass conc (RBC) 31.5 % Low 31.6-34.8 [facility] Comment on above: Performed By: #### P 14 #### [facility] [address] [place] [address] MCV Entitic volume (RBC) 96.0 fL High 79.4-94.8 [facility] Comment on above: Performed By: #### P 14 #### [facility] [address] [place] [address] Platelet mean volume Entitic volume (Bld) 9.4 fL Normal 9.4-12.3 [facility] Comment on above: Performed By: #### P 14 #### [facility] [address] [place] [address] Platelets #/vol (Bld) 438 thou/cmm High 182-369 A [facility] Comment on above: Performed By: #### P 14 #### [facility] [address] [place] [address] RBC #/vol (Bld) 3.51 mil/cmm Low 3.93-5.22 [facility] Comment on above: Performed By: #### P 14 #### [facility] [address] [place] [address] RDW SD 42.5 fl Normal 36.4-46.3 [facility] Comment on above: Performed By: #### P 14 #### [facility] [address] [place] [address] WBC #/vol (Bld) 12.56 thou/cmm High 3.98-10.04 [facility] Comment on above: Performed By: #### P 14 #### [facility] [address] [place] [id number] PLAN OF CAREon 03-13-2018 PLAN OF CARE HNO ID: [id number] Author: Savana Souza Service: Endocrinology Author Type: [...] DM regimen Will follow Savana Souza MD [facility] PROGRESSon 03-13-2018 Protein mass conc HNO ID: [id number] Author: Dez Vicente (Mitchell Esteban MD Service: [...] pmhx of HTN, DM, developmental delay, from half-way presented on 03/01 for a fall at [...] patient's developmental delay. Patient has a case picker who has helped with her medications in [...] diet - Endocrinology following -awaiting acceptance at [facility]- for help with insulin regimen Patient has displayed a lack of ability to administer her insulin regime without assistance. After discussions with the half-way CM there are not the support or resources to assist at [facility]. There is concern that without help [...] 1545 -- 03/01/18 1715 pneumatic compression stockings (ks,ct) VTE Prophylaxis: VTE prophylaxis appropriate Plan of care discussed with: Attending SIGNATURE: Dez Vicente Cha, MD PATIENT NAME: Cinthya Castillo DATE: March 13, 2018 TIME: 10:43 AM PAGER/CONTACT #: Pager: [phone] Normal [facility] Basic Panelon 03-12-2018 Creatinine mass conc 1.14 mg/dL High 0.51-0.95 [facility] Comment on above: Performed By: #### P 14 #### [place] [address] Urea nitrogen mass conc 26 mg/dL High 7-18 A [facility] Comment on above: Performed By: #### P 14 #### [address] [address] Anion gap molar conc 13 mmol/L Normal 8-16 [facility] Comment on above: Performed By: #### P 14 #### [place] [address] Calcium mass conc 8.9 mg/dL Normal 8.5-10.1 [facility] Comment on above: Performed By: #### P 14 #### [facility] [address] [place] [address] CO2 molar conc 25 mmol/L Normal 21-32 [facility] Comment on above: Performed By: #### P 14 #### [facility] [address] [place] [address] Glucose mass conc 83 mg/dL Normal 70-99 [facility] Comment on above: Performed By: #### P 14 #### [facility] [address] [place] [address] Chloride molar conc 107 mmol/L Normal 98-107 [facility] Comment on above: Performed By: #### P 14 #### [facility] [address] [place] [address] Potassium molar conc 3.9 mmol/L Normal 3.5-5.1 [facility] Comment on above: Performed By: #### P 14 #### [facility] [address] [place] [address] Sodium molar conc 141 mmol/L Normal 136-145 [facility] Comment on above: Performed By: #### P 14 #### [facility] [address] [place] [address] Hemogram/Diffon 03-12-2018 Abs Immature Grans 0.55 thou/cmm High 0.00-0.05 [facility] Comment on above: Performed By: #### U RIN2 #### [facility] [address] [place] [address] Abs. Baso 0.11 thou/cmm High 0.01-0.08 [facility] Comment on above: Performed By: #### U RIN2 #### [facility] [address] [place] [address] [place] 1.30 thou/cmm High 0.27-0.70 [facility] Comment on above: Performed By: #### U RIN2 #### [facility] [address] [place] [address] Abs. Neut (ANC) 8.75 thou/cmm High 1.56-6.13 [facility] Comment on above: Performed By: #### U RIN2 #### [facility] [address] [place], [place] [address] Basophils/100 WBC (Bld) 0.8 % Normal A [facility] Comment on above: Performed By: #### U RIN2 #### [facility] [address] [place], [place] [address] Eosinophils #/vol (Bld) 0.57 thou/cmm High 0.00-0.31 [facility] Comment on above: Performed By: #### U RIN2 #### [facility] [address] [place], [place] [address] Eosinophils/100 WBC (Bld) 4.1 % Normal [facility] Comment on above: Performed By: #### U RIN2 #### [facility] [address] [place], [place] [address] Immature Grans 3.90 % Normal [facility] Comment on above: Performed By: #### U RIN2 #### [facility] [address] [place], [place] [address] Lymphocytes #/vol (Bld) 2.73 thou/cmm Normal 1.18-3.74 [facility] Comment on above: Performed By: #### U RIN2 #### [facility] [address] [place], [place] [address] Lymphocytes/100 WBC (Bld) 19.5 % Normal [facility] Comment on above: Performed By: #### U RIN2 #### [facility] [address] [place], [place] [address] Monocytes/100 WBC (Bld) 9.3 % Normal [facility] Comment on above: Performed By: #### U RIN2 #### [facility] [address] [place], [place] [address] Seg Neutrophil 62.4 % Normal [facility] Comment on above: Performed By: #### U RIN2 #### [facility] [address] [place], [place] [address] Erythrocyte distribution width Ratio (RBC) 12.2 % Normal 11.7-14.4 [facility] Comment on above: Performed By: #### U RIN2 #### [facility] [address] [place] [address] Hematocrit Volume Fraction (Bld) 33.4 % Low 34.1-44.9 [facility] Comment on above: Performed By: #### U RIN2 #### [facility] [address] [place] [address] Hemoglobin mass conc (Bld) 10.6 g/dL Low 11.2-15.7 [facility] Comment on above: Performed By: #### U RIN2 #### [facility] [address] [place] [address] MCH Entitic mass (RBC) 30.9 pg Normal 25.6-32.2 [facility] Comment on above: Performed By: #### U RIN2 #### [facility] [address] [place] [address] MCHC mass conc (RBC) 31.7 % Normal 31.6-34.8 [facility] Comment on above: Performed By: #### U RIN2 #### [facility] [address] [place] [address] MCV Entitic volume (RBC) 97.4 fL High 79.4-94.8 [facility] Comment on above: Performed By: #### U RIN2 #### [facility] [address] [place] [address] Platelet mean volume Entitic volume (Bld) 9.8 fL Normal 9.4-12.3 [facility] Comment on above: Performed By: #### U RIN2 #### [facility] [address] [place] [address] Platelets #/vol (Bld) 429 thou/cmm High 182-369 [facility] Comment on above: Performed By: #### U RIN2 #### [facility] [address] [place] [address] RBC #/vol (Bld) 3.43 mil/cmm Low 3.93-5.22 [facility] Comment on above: Performed By: #### U RIN2 #### [facility] [address] [place] [address] RDW SD 43.6 fl Normal 36.4-46.3 [facility] Comment on above: Performed By: #### U RIN2 #### [facility] [address] [place] [address] WBC #/vol (Bld) 14.02 thou/cmm High 3.98-10.04 [facility] Comment on above: Performed By: #### U RIN2 #### [facility] [address] [place] [address] PLAN OF CAREon 03-12-2018 PLAN OF CARE HNO ID: [id number] Author: Savana Souza Service: Endocrinology Author Type: [...] DM regimen Will follow Savana Souza MD [facility] PROGRESSon 03-12-2018 Protein mass conc HNO ID: [id number] Author: Polly Parks Service: Hospital Medicine Author [...] pmhx of HTN, DM, developmental delay, from half-way presented on 03/01 for a fall at [...] patient's developmental delay. Patient has a case picker who has helped with her medications in [...] diet - Endocrinology following -awaiting acceptance at [facility]- for help with insulin regimen Patient has displayed a lack of ability to administer her insulin regime without assistance. After discussions with the half-way there are not the support or resources to assist at [facility]. There is concern that without help [...] (fl,oh) VTE Prophylaxis: VTE prophylaxis appropriate SIGNATURE: Polly Parks DO PATIENT NAME: Cinthya Castillo DATE: March 12, 2018 TIME: 8:28 AM PAGER/CONTACT #: [phone] [facility] ALLIED HEALTHon 03-11-2018 ALLIED HEALTH HNO ID: [id number] Author: Analilia Tineo (Chaplain), Student Service: Spiritual Care Author Type: Product Promoter Sales Person Type: Allied Health Filed: 03/11/2018 12:22 PM [...] Pt and she thanked me for coming. Product Promoter Sales Person Signature: Chaplain Candy Delivery Manager To contact the Spiritual Care Department: Please call [phone] or Page the On-Call Product Promoter Sales Person at pager [phone] Thank you for the opportunity to be of service. This is an electronically created document. IF PRINTED, PLEASE DO NOT REMOVE FROM THE CHART OR MODIFY PRINTED COPY. Normal [facility] Basic Panelon 03-11-2018 Creatinine mass conc 1.01 mg/dL High 0.51-0.95 [facility] Comment on above: Performed By: #### U RIN2 #### [place] [address] Anion gap molar conc 13 mmol/L Normal 8-16 [facility] Comment on above: Performed By: #### U RIN2 #### [place] [address] CO2 molar conc 24 mmol/L Normal 21-32 [facility] Comment on above: Performed By: #### U RIN2 #### [place] [address] Glucose mass conc 91 mg/dL Normal 70-99 [facility] Comment on above: Performed By: #### U RIN2 #### [place] [address] Urea nitrogen mass conc 20 mg/dL High 7-18 [facility] Comment on above: Performed By: #### U RIN2 #### [facility] [address] [place] [address] Calcium mass conc 8.5 mg/dL Normal 8.5-10.1 [facility] Comment on above: Performed By: #### U RIN2 #### [facility] [address] [place] [address] Chloride molar conc 107 mmol/L Normal 98-107 [facility] Comment on above: Performed By: #### U RIN2 #### [facility] [address] [place] [address] Potassium molar conc 3.9 mmol/L Normal 3.5-5.1 [facility] Comment on above: Performed By: #### U RIN2 #### [facility] [address] [place] [address] Sodium molar conc 140 mmol/L Normal 136-145 [facility] Comment on above: Performed By: #### U RIN2 #### [facility] [address] [place] [address] CASE MANAGEMon 03-11-2018 CASE MANAGEM HNO ID: [id number] Author: Radha (Rn) SUNDEEP Thomas Service: Care Management Author Type: Registered Nurse Type: Care Mgt Progress Note Filed: 03/11/2018 1:41 PM Note Text: CARE MANAGEMENT PROGRESS NOTE SERVICE DATE: 03/11/2018 SERVICE TIME: 1:40 PM LOS: 10 days Needs Prior to Discharge: Insurance Authorization;Discharg e Transportation Chart reviewed. Awaiting auth for d/c to [facility]. Will continue to follow. Corbytina CARLA Clifton Srikanth has stated she can transport at d/c. SIGNATURE: Radha Thomas RN PATIENT NAME: Cinthya Castillo DATE: March 11, 2018 TIME: 1:40 PM PAGER/CONTACT #: [phone] Normal [facility] Hemogram/Diffon 03-11-2018 Abs Immature Grans 0.53 thou/cmm High 0.00-0.05 [facility] Comment on above: Performed By: #### U RIN2 #### [facility] [address] [place] [address] Abs. Baso 0.07 thou/cmm Normal 0.01-0.08 [facility] Comment on above: Result Comment: Smea r scanned; tech agrees with automated differential Performed By: #### U RIN2 #### [facility] [address] [place] [address] [place] 1.29 thou/cmm High 0.27-0.70 [facility] Comment on above: Performed By: #### U RIN2 #### [facility] [address] [place] [address] Abs. Neut (ANC) 10.31 thou/cmm High 1.56-6.13 [facility] Comment on above: Performed By: #### U RIN2 #### [place] [address] Basophils/100 WBC (Bld) 0.5 % Normal [facility] Comment on above: Performed By: #### U RIN2 #### [place] [address] Eosinophils #/vol (Bld) 0.50 thou/cmm High 0.00-0.31 [facility] Comment on above: Performed By: #### U RIN2 #### [address] [address] Eosinophils/100 WBC (Bld) 3.4 % Normal [facility] Comment on above: Performed By: #### U RIN2 #### [address] [address] Immature Grans 3.60 % Normal [facility] Comment on above: Performed By: #### U RIN2 #### [address] [address] Lymphocytes #/vol (Bld) 2.09 thou/cmm Normal 1.18-3.74 [facility] Comment on above: Performed By: #### U RIN2 #### [address] [address] Lymphocytes/100 WBC (Bld) 14.1 % Normal [facility] Comment on above: Performed By: #### U RIN2 #### [address] [address] Monocytes/100 WBC (Bld) 8.7 % Normal [facility] Comment on above: Performed By: #### U RIN2 #### [facility] [address] [place] [address] Seg Neutrophil 69.7 % Normal [facility] Comment on above: Performed By: #### U RIN2 #### [facility] [address] [place] [address] Erythrocyte distribution width Ratio (RBC) 12.2 % Normal 11.7-14.4 [facility] Comment on above: Performed By: #### U RIN2 #### [facility] [address] [place] [address] Hematocrit Volume Fraction (Bld) 32.4 % Low 34.1-44.9 [facility] Comment on above: Performed By: #### U RIN2 #### [facility] [address] [place] [address] Hemoglobin mass conc (Bld) 10.3 g/dL Low 11.2-15.7 [facility] Comment on above: Performed By: #### U RIN2 #### [facility] [address] [place] [address] MCH Entitic mass (RBC) 30.7 pg Normal 25.6-32.2 [facility] Comment on above: Performed By: #### U RIN2 #### [facility] [address] [place] [address] MCHC mass conc (RBC) 31.8 % Normal 31.6-34.8 [facility] Comment on above: Performed By: #### U RIN2 #### [facility] [address] [place] [address] MCV Entitic volume (RBC) 96.4 fL High 79.4-94.8 [facility] Comment on above: Performed By: #### U RIN2 #### [facility] [address] [place] [address] Platelet mean volume Entitic volume (Bld) 10.0 fL Normal 9.4-12.3 [facility] Comment on above: Performed By: #### U RIN2 #### [facility] [address] [place], [place] [address] Platelets #/vol (Bld) 418 thou/cmm High 182-369 [facility] Comment on above: Performed By: #### U RIN2 #### [facility] [address] [place] [address] RBC #/vol (Bld) 3.36 mil/cmm Low 3.93-5.22 [facility] Comment on above: Performed By: #### U RIN2 #### [facility] [address] [place] [address] RDW SD 42.3 fl Normal 36.4-46.3 [facility] Comment on above: Performed By: #### U RIN2 #### [facility] [address] [place] [address] WBC #/vol (Bld) 14.79 thou/cmm High 3.98-10.04 [facility] Comment on above: Performed By: #### U RIN2 #### [facility] [address] [place] [address] PLAN OF CAREon 03-11-2018 PLAN OF CARE HNO ID: [id number] Author: Savana Souza Service: Endocrinology Author Type: [...] 180 (H) 115 (H) Blood sugar on [facility] today 91. Insulin was increased yesterday. Will monitor blood sugars today and adjust as needed Savana Souza MD [facility] PROGRESSon 03-11-2018 Protein mass conc HNO ID: [id number] Author: Lynsey (Rn) SUNDEEP Allen Service: Nursing Author Type: Registered Nurse Type: Progress Notes Filed: 03/11/2018 7:17 PM Note Text: Sepsis advisory noted sea ANDREWS [facility] Protein mass conc HNO ID: [id number] Author: Jackson Williamson DO Service: Hospital Medicine [...] patient's developmental delay. Patient has a case picker who has helped with her medications in [...] regime without assistance. After discussions with the half-way there are not the support or resources to assist at [facility]. There is concern that without help [...] 1545 -- 03/01/18 1715 pneumatic compression stockings (ks,oh) VTE Prophylaxis: VTE prophylaxis appropriate Plan of care discussed with: Attending and Patient SIGNATURE: Jackson Williamson DO PATIENT NAME: Cinthya Castillo DATE: March 11, 2018 TIME: 2:36 PM PAGER/CONTACT #: [phone] Normal [facility] Basic Panelon 03-10-2018 Creatinine mass conc 1.22 mg/dL High 0.51-0.95 [facility] Comment on above: Performed By: #### U RIN2 #### [place] [address] Urea nitrogen mass conc 22 mg/dL High 7-18 [facility] Comment on above: Performed By: #### U RIN2 #### [place] [address] Anion gap molar conc 13 mmol/L Normal 8-16 [facility] Comment on above: Performed By: #### U RIN2 #### [facility] [address] [place] [address] Calcium mass conc 8.3 mg/dL Low 8.5-10.1 [facility] Comment on above: Performed By: #### U RIN2 #### [place] [address] CO2 molar conc 28 mmol/L Normal 21-32 [facility] Comment on above: Performed By: #### U RIN2 #### [facility] [address] [place] [address] Glucose mass conc 163 mg/dL High 70-99 [facility] Comment on above: Performed By: #### U RIN2 #### [facility] [address] [place], [place] [address] Chloride molar conc 105 mmol/L Normal 98-107 [facility] Comment on above: Performed By: #### U RIN2 #### [facility] [address] [place] [address] Potassium molar conc 3.8 mmol/L Normal 3.5-5.1 [facility] Comment on above: Performed By: #### U RIN2 #### [facility] [address] [place] [address] Sodium molar conc 142 mmol/L Normal 136-145 [facility] Comment on above: Performed By: #### U RIN2 #### [facility] [address] [place] [address] CASE MANAGEMon 03-10-2018 CASE MANAGEM HNO ID: [id number] Author: Radha PattenRn) SUNDEEP Thomas Service: Care Management Author Type: Registered Nurse Type: Care Mgt Progress Note Filed: 03/10/2018 9:03 AM Note Text: CARE MANAGEMENT PROGRESS NOTE SERVICE DATE: 03/10/2018 SERVICE TIME: 9:02 AM LOS: 9 days Needs Prior to Discharge: Insurance Authorization;Discharg e [facility] is able to accept patient. Authorization started. Await auth for d/c. SIGNATURE: Radha Thomas RN PATIENT NAME: Cinthya Castillo DATE: March 10, 2018 TIME: 9:02 AM PAGER/CONTACT #: [phone] Normal [facility] CONSULT PROGon 03-10-2018 Protein mass conc HNO ID: [id number] Author: Savana Souza Service: Endocrinology Author Type: [...] Metformin 1,000 mg BID Savana Souza MD [facility] PROGRESSon 03-10-2018 Protein mass conc HNO ID: [id number] Author: Jackson (Mitchell Williamson DO Service: Hospital Medicine Author Type: Resident Type: Progress Notes Filed: 03/10/2018 2:52 PM Note Text: Attestation signed by Walter Gross at 03/10/2018 6:14 PM Continues to feel better. Less buttock pain today. Sitting in chair. States she is ready to be sent to [facility]. NAD. Afebrile. VSS. Lungs: Clear CV: RRR [...] patient's developmental delay. Patient has a case picker who has helped with her medications in [...] regime without assistance. After discussions with the half-way CM there are not the support or resources to assist at [facility]. There is concern that without help [...] 1545 -- 03/01/18 1715 pneumatic compression stockings (ks,oh) VTE Prophylaxis: VTE prophylaxis appropriate Plan of care discussed with: Attending and Patient SIGNATURE: Jackson Williamson DO PATIENT NAME: Cinthya Castillo DATE: March 10, 2018 TIME: 2:37 PM PAGER/CONTACT #: [phone] Normal [facility] Basic Panelon 03-09-2018 Creatinine mass conc 1.02 mg/dL High 0.51-0.95 [facility] Comment on above: Performed By: #### U RIN2 #### [facility] [address] [place] [address] Anion gap molar conc 14 mmol/L Normal 8-16 [facility] Comment on above: Performed By: #### U RIN2 #### [facility] [address] [place] [address] Calcium mass conc 8.7 mg/dL Normal 8.5-10.1 [facility] Comment on above: Performed By: #### U RIN2 #### [facility] [address] [place] [address] CO2 molar conc 27 mmol/L Normal 21-32 [facility] Comment on above: Performed By: #### U RIN2 #### [facility] [address] [place] [address] Glucose mass conc 132 mg/dL High 70-99 [facility] Comment on above: Performed By: #### U RIN2 #### [facility] [address] [place] [address] Urea nitrogen mass conc 19 mg/dL High 7-18 [facility] Comment on above: Performed By: #### U RIN2 #### [facility] [address] [place] [address] Chloride molar conc 105 mmol/L Normal 98-107 [facility] Comment on above: Performed By: #### U RIN2 #### [facility] [address] [place] [address] Potassium molar conc 3.8 mmol/L Normal 3.5-5.1 [facility] Comment on above: Performed By: #### U RIN2 #### [facility] [address] [place] [address] Sodium molar conc 142 mmol/L Normal 136-145 [facility] Comment on above: Performed By: #### U RIN2 #### [facility] [address] [place] [address] CASE MANAGEMon 03-09-2018 CASE MANAGEM HNO ID: [id number] Author: Radha (Rn) SUNDEEP Thomas Service: Care Management Author Type: Registered Nurse Type: Care Mgt Progress Note Filed: 03/09/2018 4:14 PM Note Text: CARE MANAGEMENT PROGRESS NOTE SERVICE DATE: 03/09/2018 SERVICE TIME: 4:08 PM LOS: 8 days FREEDOM OF CHOICE GIVEN: Yes discussed The patient and/or family has been given the Provider List: Yes Provider List: Residential Facility Preference: [facility] Needs Prior to [...] bid doses of insulin. Spoke to home staging specialist Joyce Edouard who confirmed they provide meals, laundry and assist with telling residents when to take meds but cannot administer. Spoke to patient at bedside regarding possible SNF d/c, discussed FOC and patient chose [facility]. Spoke to Karen Morales, Elisha CM regarding patient likely need for SNF d/c for med management. Will place referral and continue to follow. SIGNATURE: Radha Thomas RN PATIENT NAME: Cinthya Castillo DATE: March 09, 2018 TIME: 4:08 PM PAGER/CONTACT #: [phone] [facility] CASE MANAGEM HNO ID: [id number] Author: Radha (Rn) SUNDEEP Thomas Service: Care Management Author Type: Registered Nurse Type: Care Mgt Progress Note Filed: 03/09/2018 1:41 PM Note Text: CARE MANAGEMENT PROGRESS NOTE SERVICE DATE: 03/09/2018 SERVICE TIME: 1:40 PM LOS: 8 days FREEDOM OF CHOICE GIVEN: Yes discussed The patient and/or family has been given the Provider List: Yes Provider List: Residential Facility Preference: [facility] Spoke to patient at bedside regarding possibility of SNF for med management. Patient agreeable. FOC provided, choice is [facility]. Will await acceptance. SIGNATURE: Radha Thomas RN PATIENT NAME: Cinthya Castillo DATE: March 09, 2018 TIME: 1:40 PM PAGER/CONTACT #: [phone] [facility] Hemogram/Diffon 03-09-2018 Abs Immature Grans 0.54 thou/cmm High 0.00-0.05 [facility] Comment on above: Performed By: #### U RIN2 #### [facility] [address] [place] [address] Abs. Baso 0.08 thou/cmm Normal 0.01-0.08 [facility] Comment on above: Result Comment: Smea r scanned; tech agrees with automated differential Performed By: #### U RIN2 #### [facility] [address] [place] [address] [place] 1.41 thou/cmm High 0.27-0.70 [facility] Comment on above: Performed By: #### U RIN2 #### [facility] [address] [place] [address] Abs. Neut (ANC) 9.86 thou/cmm High 1.56-6.13 [facility] Comment on above: Performed By: #### U RIN2 #### [place] [address] Basophils/100 WBC (Bld) 0.6 % Normal [facility] Comment on above: Performed By: #### U RIN2 #### [facility] [address] [place] [address] Eosinophils #/vol (Bld) 0.37 thou/cmm High 0.00-0.31 [facility] Comment on above: Performed By: #### U RIN2 #### [place] [address] Eosinophils/100 WBC (Bld) 2.7 % Normal [facility] Comment on above: Performed By: #### U RIN2 #### [facility] [address] [place] [address] Immature Grans 3.90 % Normal [facility] Comment on above: Performed By: #### U RIN2 #### [facility] [address] [place] [address] Lymphocytes #/vol (Bld) 1.47 thou/cmm Normal 1.18-3.74 [facility] Comment on above: Performed By: #### U RIN2 #### [place] [address] Lymphocytes/100 WBC (Bld) 10.7 % Normal [facility] Comment on above: Performed By: #### U RIN2 #### [facility] [address] [place] [address] Monocytes/100 WBC (Bld) 10.3 % Normal [facility] Comment on above: Performed By: #### U RIN2 #### [facility] [address] [place] [address] Seg Neutrophil 71.8 % Normal [facility] Comment on above: Performed By: #### U RIN2 #### [facility] [address] [place] [address] Erythrocyte distribution width Ratio (RBC) 12.3 % Normal 11.7-14.4 [facility] Comment on above: Performed By: #### U RIN2 #### [facility] [address] [place] [address] Hematocrit Volume Fraction (Bld) 33.0 % Low 34.1-44.9 [facility] Comment on above: Performed By: #### U RIN2 #### [facility] [address] [place] [address] Hemoglobin mass conc (Bld) 10.7 g/dL Low 11.2-15.7 [facility] Comment on above: Performed By: #### U RIN2 #### [facility] [address] [place] [address] MCH Entitic mass (RBC) 30.9 pg Normal 25.6-32.2 [facility] Comment on above: Performed By: #### U RIN2 #### [facility] [address] [place] [address] MCHC mass conc (RBC) 32.4 % Normal 31.6-34.8 [facility] Comment on above: Performed By: #### U RIN2 #### [facility] [address] [place] [address] MCV Entitic volume (RBC) 95.4 fL High 79.4-94.8 [facility] Comment on above: Performed By: #### U RIN2 #### [facility] [address] [place] [address] Platelet mean volume Entitic volume (Bld) 9.8 fL Normal 9.4-12.3 [facility] Comment on above: Performed By: #### U RIN2 #### [facility] [address] [place] [address] Platelets #/vol (Bld) 355 thou/cmm Normal 182-369 [facility] Comment on above: Performed By: #### U RIN2 #### [facility] [address] [place] [address] RBC #/vol (Bld) 3.46 mil/cmm Low 3.93-5.22 [facility] Comment on above: Performed By: #### U RIN2 #### [facility] [address] [place] [address] RDW SD 42.5 fl Normal 36.4-46.3 [facility] Comment on above: Performed By: #### U RIN2 #### [facility] [address] [place] [address] WBC #/vol (Bld) 13.73 thou/cmm High 3.98-10.04 [facility] Comment on above: Performed By: #### U RIN2 #### [place] [address] PLAN OF CAREon 03-09-2018 PLAN OF CARE HNO ID: [id number] Author: Savana Souza Service: Endocrinology Author Type: [...] ISS AC/HS Will follow Savana Souza MD [facility] PROGRESSon 03-09-2018 Protein mass conc HNO ID: [id number] Author: Jackson Williamson DO Service: Hospital Medicine [...] as documented in the resident's note. Plan: manager behavioral input noted. Patient wiling to go to [facility] for short term. Walter Gross MD SERVICE [...] patient's developmental delay. Patient has a case picker who has helped with her medications in [...] 1545 -- 03/01/18 1715 pneumatic compression stockings (ks,ct) VTE Prophylaxis: VTE prophylaxis appropriate Plan of care discussed with: Attending and Patient SIGNATURE: Jackson Williamson DO PATIENT NAME: Cinthya Castillo DATE: March 09, 2018 TIME: 4:23 PM PAGER/CONTACT #: [phone] [facility] ALLIED HEALTHon 03-08-2018 ALLIED HEALTH HNO ID: [id number] Author: Cinthya (Rn) SUNDEEP Maloney Service: Diabetes Education Author Type: Registered Nurse Type: Allied Health Filed: 03/08/2018 3:01 PM Note Text: DIABETES EDUCATION PROGRESS NOTE SERVICE DATE: 03/08/2018 SERVICE TIME: 1415 RECOMMENDATIONS: Patient needs to follow-up with primary care physician after discharge. Prescriptions for diabetic supplies -insulin. Patient demonstrated correct use of insulin pen. Patient Stated correct dose of 70 units in the morning and 70 units in the evening-instructed to take with meal. The Digitizer Operator ,Clifton Murray, was left a message to [...] Barriers to learning: None Family support: case picker called Education Type: Individual instruction Written instruction - handouts Verbal instruction Response to education: States/Identifies. Education provided to: Patient. Teachback method used. Time Spent (Minutes): 15 SIGNATURE: Cinthya Maloney RN PATIENT NAME: Cinthya Castillo DATE: March 08, 2018 TIME: 2:53 PM PAGER: [phone] Normal [facility] Basic Panelon 03-08-2018 Creatinine mass conc 1.15 mg/dL High 0.51-0.95 [facility] Comment on above: Performed By: #### U RIN2 #### [place] [address] Anion gap molar conc 12 mmol/L Normal 8-16 [facility] Comment on above: Performed By: #### U RIN2 #### [address] [address] CO2 molar conc 25 mmol/L Normal 21-32 [facility] Comment on above: Performed By: #### U RIN2 #### [facility] [address] [place] [id number] Glucose mass conc 175 mg/dL High 70-99 [facility] Comment on above: Performed By: #### U RIN2 #### [facility] [address] [place] [address] Urea nitrogen mass conc 21 mg/dL High 7-18 [facility] Comment on above: Performed By: #### U RIN2 #### [facility] [address] [place] [address] Calcium mass conc 8.8 mg/dL Normal 8.5-10.1 [facility] Comment on above: Performed By: #### U RIN2 #### [facility] [address] [place] [address] Chloride molar conc 107 mmol/L Normal 98-107 [facility] Comment on above: Performed By: #### U RIN2 #### [facility] [address] [place] [address] Potassium molar conc 3.8 mmol/L Normal 3.5-5.1 [facility] Comment on above: Performed By: #### U RIN2 #### [facility] [address] [place] [address] Sodium molar conc 140 mmol/L Normal 136-145 [facility] Comment on above: Performed By: #### U RIN2 #### [facility] [address] [place] [address] CASE MANAGEMon 03-08-2018 CASE MANAGEM HNO ID: [id number] Author: Vianey Arnold RN Service: Care Management [...] patient's advocate Stefanie Garcia RN Care Manger ([phone]). Await call back. Will continue to follow clinical course for further DC planning needs. SIGNATURE: Vianey Arnold RN PATIENT NAME: Cinthya Castillo DATE: March 08, 2018 TIME: 2:33 PM PAGER/CONTACT #: [phone] Normal [facility] CONSULT PROGon 03-08-2018 Protein mass conc HNO ID: [id number] Author: Savana Souza Service: Endocrinology Author Type: [...] Metformin 1,000 mg BID Savana Souza MD [facility] PROGRESSon 03-08-2018 Protein mass conc HNO ID: [id number] Author: Jackson Williamson DO Service: Hospital Medicine [...] patient's developmental delay. Patient has a case picker who has helped with her medications in [...] 2018 TIME: 3:28 PM PAGER/CONTACT #: [phone] Normal [facility] THERAPY NTon 03-08-2018 THERAPY NT HNO ID: [id number] Author: Chon (Pt) Serge Service: Physical Therapy Author Type: Physical Therapist Type: Therapy (PT/OT/Speech/Resp) Filed: 03/08/2018 2:47 PM Note Text: Physical Therapy Treatment SERVICE DATE: 03/08/2018 SERVICE TIME: 1357 to 1420 ROOM: [place] [address] Recommended Discharge Disposition: Outpatient Physical Therapy Recommended [...] Diagnosis: Reduced mobility-other Interventions Provided: Neuromuscular Reeducation (60449);Therapeutic Exercise (53025) Therapeutic Exercise (27535) Treatment Minutes: 12 1 unit Skilled Intervention(s): [...] in case you need it." Neuromuscular Re-Education (98825) Treatment Minutes: 11 1 unit Skilled Intervention(s): [...] noted. 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 Home Environment Patient Lives With: Facility Care (half-way) Assistance Available: 24 Hour Entry To Home: [...] Balance: Dynamic Standing Dynamic Standing Balance: Supervision -[facility]: 7: Walk 25 feet or [...] March 08, 2018 TIME: 2:34 PM Normal [facility] THERAPY NT HNO ID: [id number] Author: Portia Rowan/Olman Syed Service: Occupational Therapy Author Type: Occupational Therapist Type: Therapy (PT/OT/Speech/Resp) Filed: 03/08/2018 12:27 PM Note Text: Occupational Therapy Treatment SERVICE DATE: 03/08/2018 SERVICE TIME: 1205 to 1217 ROOM: [place] [address] Recommended Discharge Disposition: Home Recommended Discharge Disposition Comments: Return to half-way with continued assist for IADLs Anticipated Discharge [...] of daily living (ADL) Interventions Provided: Self Snf Management (17826) Self Snf Management (41360) Treatment Minutes: 25 1 unit Skilled Intervention(s): [...] Microscopic hematuria 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 Relevant Past Medical History: DM, Developmental delay Patient Report: Pt just coming out of bathroom upon arrival Id like to try to use one of those caps to wash my hair now" Pain: no c/o Home Environment Patient Lives With: Facility Care (half-way) Assistance Available: 24 Hour Entry To Home: [...] March 08, 2018 TIME: 12:23 PM Normal [facility] Basic Panelon 03-07-2018 Creatinine mass conc 1.01 mg/dL High 0.51-0.95 [facility] Comment on above: Performed By: #### U RIN2 #### [place] [address] Anion gap molar conc 9 mmol/L Normal 8-16 [facility] Comment on above: Performed By: #### U RIN2 #### [place] [address] CO2 molar conc 27 mmol/L Normal 21-32 [facility] Comment on above: Performed By: #### U RIN2 #### [place] [address] Urea nitrogen mass conc 16 mg/dL Normal 7-18 A [facility] Comment on above: Performed By: #### U RIN2 #### [facility] [address] [place] [address] Calcium mass conc 8.7 mg/dL Normal 8.5-10.1 [facility] Comment on above: Performed By: #### U RIN2 #### [facility] [address] [place] [address] Glucose mass conc 170 mg/dL High 70-99 [facility] Comment on above: Performed By: #### U RIN2 #### [facility] [address] [place] [address] Chloride molar conc 106 mmol/L Normal 98-107 [facility] Comment on above: Performed By: #### U RIN2 #### [facility] [address] [place] [address] Potassium molar conc 4.0 mmol/L Normal 3.5-5.1 [facility] Comment on above: Performed By: #### U RIN2 #### [facility] [address] [place] [address] Sodium molar conc 138 mmol/L Normal 136-145 [facility] Comment on above: Performed By: #### U RIN2 #### [facility] [address] [place] [address] CASE MANAGEMon 03-07-2018 CASE MANAGEM HNO ID: [id number] Author: Radha (Rn) SUNDEEP Thomas Service: Care Management Author Type: Registered Nurse Type: Care Mgt Progress Note Filed: 03/07/2018 11:58 AM Note Text: CARE MANAGEMENT PROGRESS NOTE SERVICE DATE: 03/07/2018 SERVICE TIME: 11:56 AM LOS: 6 days Needs Prior to Discharge: To Be Determined Placed telephone call to Clifton Murray at [phone] and left VM for a call back regarding med administration and outpatient PT order. Will continue to follow. SIGNATURE: Radha Thomas RN PATIENT NAME: Cinthya Castillo DATE: March 07, 2018 TIME: 11:56 AM PAGER/CONTACT #: [phone] Normal [facility] CONSULT PROGon 03-07-2018 Protein mass conc HNO ID: [id number] Author: Savana Souza Service: Endocrinology Author Type: [...] decrease to #1 HS Savana Souza MD [facility] NURSING PROGon 03-07-2018 Protein mass conc HNO ID: [id number] Author: Diomedes (Rn) SUNDEEP Givens Service: Nursing Author Type: Registered Nurse Type: Nursing Progress Note Filed: 03/07/2018 2:34 PM Note Text: Nursing Progress Note Patient Name: Cinthya Castillo Patient Location: [id number]* __ Daily Note: I spoke with Cliftonkina Murray, pts animal care assistant at [facility]. She would like to be here when the pt is given diabetic education if we can call her at [phone] to set up an appointment when the [...] note was completed by: Diomedes Givens RN [facility] PROGRESSon 03-07-2018 Protein mass conc HNO ID: [id number] Author: Jackson Williamson DO Service: Hospital Medicine Author Type: Resident Type: Progress Notes Filed: 03/07/2018 4:25 PM Note Text: Attestation signed by Walter Gross at 03/07/2018 10:22 PM History reviewed, patient examined. 57 year old white female, living in half-way, admitted with DKA, s/p fall. States she hadn't used her insulin in a while because she didn't know what to do with her new insulin pens and so she kept it in the refrigerator but did not use. Feeling better. Spoke with her case picker who was visiting in the room. Currently [...] patient's developmental delay. Patient has a case picker who has helped with her medications in [...] 1545 -- 03/01/18 1715 pneumatic compression stockings (ks,ct) VTE Prophylaxis: VTE prophylaxis appropriate Plan of care discussed with: Attending and Patient SIGNATURE: Jackson Williamson DO PATIENT NAME: Cinthya Castillo DATE: March 07, 2018 TIME: 4:25 PM PAGER/CONTACT #: [phone] Normal [facility] Basic Panelon 03-06-2018 Creatinine mass conc 1.09 mg/dL High 0.51-0.95 [facility] Comment on above: Performed By: #### U RIN2 #### [facility] [address] [place], [place] [address] Anion gap molar conc 13 mmol/L Normal 8- [facility] Comment on above: Performed By: #### U RIN2 #### [facility] [address] [place], [place] [address] CO2 molar conc 26 mmol/L Normal - [facility] Comment on above: Performed By: #### U RIN2 #### [facility] [address] [place], [place] [address] Glucose mass conc 206 mg/dL High 70-99 [facility] Comment on above: Performed By: #### U RIN2 #### [facility] [address] [place], [place] [address] Urea nitrogen mass conc 16 mg/dL Normal 7-18 A [facility] Comment on above: Performed By: #### U RIN2 #### [facility] [address] [place] [address] Calcium mass conc 8.6 mg/dL Normal 8.5-10.1 [facility] Comment on above: Performed By: #### U RIN2 #### [facility] [address] [place] [address] Chloride molar conc 103 mmol/L Normal 98-107 [facility] Comment on above: Performed By: #### U RIN2 #### [facility] [address] [place] [address] Potassium molar conc 3.7 mmol/L Normal 3.5-5.1 [facility] Comment on above: Performed By: #### U RIN2 #### [facility] [address] [place] [address] Sodium molar conc 138 mmol/L Normal 136-145 [facility] Comment on above: Performed By: #### U RIN2 #### [facility] [address] [place] [address] CONSULTon 03-06-2018 CONSULT HNO ID: [id number] Author: Shailesh Solano Service: Endocrinology Author Type: [...] didn't know how much to take". 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 Has services that come in and [...] or anxiety. Allergic / Immunologic: No known jail or short term issues. Objective PHYSICAL EXAM: [...] 06, 2018 TIME: 8:50 AM PAGER/CONTACT #: [phone] Normal [facility] Hemogramon 03-06-2018 Erythrocyte distribution width Ratio (RBC) 12.2 % Normal 11.7-14.4 [facility] Comment on above: Performed By: #### U RIN2 #### [place] [address] Hematocrit Volume Fraction (Bld) 33.2 % Low 34.1-44.9 [facility] Comment on above: Performed By: #### U RIN2 #### [facility] [address] [place] [address] Hemoglobin mass conc (Bld) 11.0 g/dL Low 11.2-15.7 [facility] Comment on above: Performed By: #### U RIN2 #### [place] [address] MCH Entitic mass (RBC) 31.3 pg Normal 25.6-32.2 [facility] Comment on above: Performed By: #### U RIN2 #### [facility] [address] [place] [address] MCHC mass conc (RBC) 33.1 % Normal 31.6-34.8 [facility] Comment on above: Performed By: #### U RIN2 #### [facility] [address] [place] [address] MCV Entitic volume (RBC) 94.3 fL Normal 79.4-94.8 [facility] Comment on above: Performed By: #### U RIN2 #### [place] [address] Platelet mean volume Entitic volume (Bld) 10.9 fL Normal 9.4-12.3 [facility] Comment on above: Performed By: #### U RIN2 #### [facility] [address] [place] [address] Platelets #/vol (Bld) 294 thou/cmm Normal 182-369 A [facility] Comment on above: Performed By: #### U RIN2 #### [facility] [address] [place] [address] RBC #/vol (Bld) 3.52 mil/cmm Low 3.93-5.22 [facility] Comment on above: Performed By: #### U RIN2 #### [facility] [address] [place] [address] RDW SD 41.9 fl Normal 36.4-46.3 [facility] Comment on above: Performed By: #### U RIN2 #### [facility] [address] [place] [address] WBC #/vol (Bld) 13.39 thou/cmm High 3.98-10.04 [facility] Comment on above: Performed By: #### U RIN2 #### [facility] [address] [place] [address] PLAN OF CAREon 03-06-2018 PLAN OF CARE HNO ID: [id number] Author: Raul Gamino Service: Hospital Medicine Author [...] Gay March 06, 2018 10:23 AM Pager [phone] Normal [facility] PROGRESSon 03-06-2018 Protein mass conc HNO ID: [id number] Author: Anupam Willis Service: Hospital Medicine Author Type: Physician Type: Progress Notes Filed: 03/07/2018 10:05 PM Note Text: SERVICE DATE: 03/06/2018 SERVICE TIME: 9:07 AM HOSPITAL MEDICINE PROGRESS NOTE NIGHT AND WEEKEND COVERAGE: From 7am - 7pm, please call [phone] After 7pm, please call cross cover pager #[phone] HPI Patient is a 57 yo F [...] patient's developmental delay. Patient has a case picker who has helped with her medications in [...] acting) (HumaLOG KWIKPEN) SUBCUTANEOUS w MEALS Zeke Jb Montague 4 Units at 03/05/181717 insulin lispro [...] oil cream (EUCERIN) TOPICAL DAILY Magalys Singleton ([employer]) [place] Diagnostic tests reviewed: Most recent labs and imaging results. Recent Labs 03/06/18 0356 03/04/185 03/03/18 0415 WBC 13.39* 12.55* 12.31* RBC 3.52* 3.52* 3.65* HB 11.0* 10.9* 11.3 HCT 33.2* 33.1* 34.1 PLT 294 247 268 MCV 94.3 94.0 93.4 MCH 31.3 31.0 31.0 MPV 10.9 10.1 10.8 RDW 12.2 12.3 12.3 Recent Labs 03/06/186 03/05/18 0554 03/04/185 03/02/183 03/01/18 1100 GLUC 206* 291* 253* < [...] interval not displayed. Recent Labs 03/06/18 0715 03/06/1835503/05/182055 02/15/18 1703 03/05/18 0554 03/04/18 0455 03/01/18 1115 [...] 1545 -- 03/01/18 1715 pneumatic compression stockings (ks,oh) VTE Prophylaxis: VTE prophylaxis appropriate Plan of care discussed with: Attending SIGNATURE: Annmarie Oliva MD PATIENT NAME: Cinthya Castillo DATE: March 06, 2018 TIME: 9:07 AM PAGER/CONTACT #: [phone] Evaluated independently Agreed with the above notes by Dr. Oliva which reflects my input with the following additions Complains of pain over the right buttock On exam she has large indurated area consistent with cellulitis Will start on empirical Vanc.and observe Lives in a half-way May not able to have 4 insulin shots a day. Endo was called and placed on 70/30 insulin 2 times a day Discussed with patient regarding condition and plan Plan her discharge Attestation signed by Anupam Willis MD [facility] [place] March 06, 2018 9:57 PM Normal [facility] Basic Panelon 03-05-2018 Creatinine mass conc 1.11 mg/dL High 0.51-0.95 [facility] Comment on above: Performed By: #### E DGLG #### [facility] [address] [place] [address] Anion gap molar conc 14 mmol/L Normal 8-16 [facility] Comment on above: Performed By: #### E DGLG #### [facility] [address] [place] [address] Calcium mass conc 8.4 mg/dL Low 8.5-10.1 [facility] Comment on above: Performed By: #### E DGLG #### [facility] [address] [place] [address] CO2 molar conc 25 mmol/L Normal 21-32 [facility] Comment on above: Performed By: #### E DGLG #### [place] [address] Urea nitrogen mass conc 21 mg/dL High 7-18 A [facility] Comment on above: Performed By: #### E DGLG #### [facility] [address] [place], [place] [address] Glucose mass conc 291 mg/dL High 70-99 [facility] Comment on above: Performed By: #### E DGLG #### [facility] [address] [place], [place] [address] Chloride molar conc 105 mmol/L Normal 98-107 [facility] Comment on above: Performed By: #### E DGLG #### [facility] [address] [place], [place] [address] Potassium molar conc 4.0 mmol/L Normal 3.5-5.1 [facility] Comment on above: Performed By: #### E DGLG #### [facility] [address] [place], [place] [address] Sodium molar conc 140 mmol/L Normal 136-145 [facility] Comment on above: Performed By: #### E DGLG #### [facility] [address] [place] [address] PROGRESSon 03-05-2018 Protein mass conc HNO ID: [id number] Author: Anupam Willis Service: Hospital Medicine Author [...] patient's developmental delay. 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) [place] Diagnostic tests reviewed: Most recent labs [...] 1545 -- 03/01/18 1715 pneumatic compression stockings (ks,oh) VTE Prophylaxis: VTE prophylaxis appropriate Plan of care discussed with: Attending and Patient SIGNATURE: Marielos Zhu DO PATIENT NAME: Cinthya Castillo DATE: March 05, 2018 TIME: 9:16 AM PAGER/CONTACT #: [phone] Transferred to my service Chart reviewed Evaluated [...] days Attestation signed by Anupam Willis MD [facility] [place]ending March 05, 2018 9:56 PM Normal [facility] Basic Panelon 03-04-2018 Creatinine mass conc 1.19 mg/dL High 0.51-0.95 [facility] Comment on above: Performed By: #### E DGLG #### [place] [address] Anion gap molar conc 12 mmol/L Normal 8-16 [facility] Comment on above: Performed By: #### E DGLG #### [facility] [address] [place], [place] [address] CO2 molar conc 25 mmol/L Normal 21-32 [facility] Comment on above: Performed By: #### E DGLG #### [facility] [address] [place], [place] [address] Glucose mass conc 253 mg/dL High 70-99 [facility] Comment on above: Performed By: #### E DGLG #### [facility] [address] [place], [place] [address] Urea nitrogen mass conc 24 mg/dL High 7-18 [facility] Comment on above: Performed By: #### E DGLG #### [facility] [address] [place], [place] [address] Calcium mass conc 8.5 mg/dL Normal 8.5-10.1 [facility] Comment on above: Performed By: #### E DGLG #### [facility] [address] [place], [place] [address] Chloride molar conc 105 mmol/L Normal 98-107 [facility] Comment on above: Performed By: #### E DGLG #### [facility] [address] [place] [address] Potassium molar conc 3.8 mmol/L Normal 3.5-5.1 [facility] Comment on above: Performed By: #### E DGLG #### [facility] [address] [place] [address] Sodium molar conc 138 mmol/L Normal 136-145 [facility] Comment on above: Performed By: #### E DGLG #### [facility] [address] [place] [address] CASE MANAGEMon 03-04-2018 CASE MANAGEM HNO ID: [id number] Author: Radha (Rn) SUNDEEP Thomas Service: Care Management Author Type: Registered Nurse Type: Care Mgt Progress Note Filed: 03/04/2018 9:39 AM Note Text: CARE MANAGEMENT PROGRESS NOTE SERVICE DATE: 03/04/2018 SERVICE TIME: 9:38 AM LOS: 3 days Needs Prior to Discharge: To Be Determined Left at [phone] for Clifton Murray, patient interactive marketing strategist to discuss PT recommendation of outpatient therapy. Current plan is d/c home once medically ready. SIGNATURE: Radha Thomas RN PATIENT NAME: Cinthya Castillo DATE: March 04, 2018 TIME: 9:38 AM PAGER/CONTACT #: [phone] Normal [facility] Hemogramon 03-04-2018 Erythrocyte distribution width Ratio (RBC) 12.3 % Normal 11.7-14.4 [facility] Comment on above: Performed By: #### E DGLG #### [facility] [address] [place] [address] Hematocrit Volume Fraction (Bld) 33.1 % Low 34.1-44.9 [facility] Comment on above: Performed By: #### E DGLG #### [facility] [address] [place] [address] Hemoglobin mass conc (Bld) 10.9 g/dL Low 11.2-15.7 [facility] Comment on above: Performed By: #### E DGLG #### [facility] [address] [place] [address] MCH Entitic mass (RBC) 31.0 pg Normal 25.6-32.2 [facility] Comment on above: Performed By: #### E DGLG #### [facility] [address] [place] [address] MCHC mass conc (RBC) 32.9 % Normal 31.6-34.8 [facility] Comment on above: Performed By: #### E DGLG #### [place] [address] MCV Entitic volume (RBC) 94.0 fL Normal 79.4-94.8 [facility] Comment on above: Performed By: #### E DGLG #### [place] [address] Platelet mean volume Entitic volume (Bld) 10.1 fL Normal 9.4-12.3 [facility] Comment on above: Performed By: #### E DGLG #### [place] [address] Platelets #/vol (Bld) 247 thou/cmm Normal 182-369 A [facility] Comment on above: Performed By: #### E DGLG #### [facility] [address] [place] [address] RBC #/vol (Bld) 3.52 mil/cmm Low 3.93-5.22 [facility] Comment on above: Performed By: #### E DGLG #### [place] [address] RDW SD 42.2 fl Normal 36.4-46.3 [facility] Comment on above: Performed By: #### E DGLG #### [facility] [address] [place] [address] WBC #/vol (Bld) 12.55 thou/cmm High 3.98-10.04 [facility] Comment on above: Performed By: #### E DGLG #### [facility] [address] [place] [address] NURSING PROGon 03-04-2018 Protein mass conc HNO ID: [id number] Author: Grcaiela PattenRn) SUNDEEP Pineda Service: Nursing Author Type: Registered Nurse Type: Nursing Progress Note Filed: 03/04/2018 9:06 PM Note Text: House med paged regarding pt blood sugar of 425. Will give scheduled 60 U of lantus and new order for 15 U log received. Normal [facility] PROGRESSon 03-04-2018 Protein mass conc HNO ID: [id number] Author: Marielos Lovelace) Audra Service: Hospital Medicine [...] complaints. BG remains elevated. Left message with case picker (Clifton, ) to further discuss resources available in the half-way to encourage medication adherence. PE: BP 126/64 [...] 7 day course. Anticipate discharge back to half-way once blood sugars improved. Zeke Montague MD [...] patient's developmental delay. Patient has a case picker who has helped with her medications in [...] before meals today. Pending further recommendation from case picker regarding resources to monitor compliance when patient is discharged to half-way. OBJECTIVE BP 126/64 Pulse 104 Temp (Src) [...] oil cream (EUCERIN) TOPICAL DAILY Magalys N ([employer]) [place] Diagnostic tests reviewed: Most recent labs [...] 1545 -- 03/01/18 1715 pneumatic compression stockings (ks,oh) VTE Prophylaxis: VTE prophylaxis appropriate Plan of care discussed with: Attending and Patient SIGNATURE: Marielos Zhu DO PATIENT NAME: Cinthya Castillo DATE: March 04, 2018 TIME: 12:51 PM PAGER/CONTACT #: [phone] Normal [facility] THERAPY NTon 03-04-2018 THERAPY NT HNO ID: [id number] Author: Mariana PattenPt) MARIFER Mann Service: Physical Therapy Author Type: Physical Therapist Type: Therapy (PT/OT/Speech/Resp) Filed: 03/04/2018 2:21 PM Note Text: Physical Therapy Treatment SERVICE DATE: 03/04/2018 SERVICE TIME: 1322 to 1337 ROOM: [address] Recommended Discharge Disposition: Outpatient Physical Therapy Recommended [...] Diagnosis: Reduced mobility-other Interventions Provided: Therapeutic Activity (22057) Therapeutic Activity (44344) Treatment Minutes: 15 1 unit Skilled Intervention(s): [...] 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 Denies any pain/discomfort and Agreeable to PT Home Environment Patient Lives With: Facility Care (half-way) Assistance Available: 24 Hour Entry To Home: [...] Standing Dynamic Standing Balance: Stand By Assistance -M: 7: Walk 25 feet or more [...] March 04, 2018 TIME: 2:19 PM Normal [facility] THERAPY NT HNO ID: [id number] Author: Bruna Rowan/Olman Pantoja OT Service: Occupational Therapy Author Type: Occupational Therapist Type: Therapy (PT/OT/Speech/Resp) Filed: 03/04/2018 9:27 AM Note Text: Occupational Therapy Treatment SERVICE DATE: 03/04/2018 SERVICE TIME: 08 to 0850 ROOM: HJ-2368-0710-01 Recommended Discharge Disposition: Home Recommended Discharge Disposition Comments: Return to half-way with continued assist for IADLs Anticipated Discharge [...] of daily living (ADL) Interventions Provided: Self Snf Management (72378) Self Snf Management (11314) Treatment Minutes: 25 2 units Skilled Intervention(s): [...] were noted 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 C/o discomfort due to pimple on R buttock. Home Environment Patient Lives With: Facility Care (half-way) Assistance Available: 24 Hour Entry To Home: [...] March 04, 2018 TIME: 9:24 AM Normal [facility] Basic Panelon 03-03-2018 Creatinine mass conc 1.42 mg/dL High 0.51-0.95 [facility] Comment on above: Performed By: #### E DGLG #### [facility] [address] [place], [place] [address] Anion gap molar conc 13 mmol/L Normal 8-16 [facility] Comment on above: Performed By: #### E DGLG #### [facility] [address] [place], [place] [address] CO2 molar conc 24 mmol/L Normal 21-32 [facility] Comment on above: Performed By: #### E DGLG #### [facility] [address] [place], [place] [address] Glucose mass conc 398 mg/dL High 70-99 [facility] Comment on above: Performed By: #### E DGLG #### [facility] [address] [place], [place] [address] Urea nitrogen mass conc 25 mg/dL High 7-18 [facility] Comment on above: Performed By: #### E DGLG #### [facility] [address] [place], [place] [address] Calcium mass conc 8.6 mg/dL Normal 8.5-10.1 [facility] Comment on above: Performed By: #### E DGLG #### [facility] [address] [place], [place] [address] Chloride molar conc 102 mmol/L Normal 98-107 [facility] Comment on above: Performed By: #### E DGLG #### [facility] [address] [place], [place] [address] Potassium molar conc 4.2 mmol/L Normal 3.5-5.1 [facility] Comment on above: Performed By: #### E DGLG #### [facility] [address] [place] [address] Sodium molar conc 135 mmol/L Low 136-145 [facility] Comment on above: Performed By: #### E DGLG #### [facility] [address] [place], [place] [address] Creatinine mass conc 1.25 mg/dL High 0.51-0.95 [facility] Comment on above: Performed By: #### E DGLG #### [facility] [address] [place], [place] [address] Urea nitrogen mass conc 28 mg/dL High 7-18 [facility] Comment on above: Performed By: #### E DGLG #### [facility] [address] [place] [address] Anion gap molar conc 14 mmol/L Normal 8-16 [facility] Comment on above: Performed By: #### E DGLG #### [facility] [address] [place] [address] Calcium mass conc 8.8 mg/dL Normal 8.5-10.1 [facility] Comment on above: Performed By: #### E DGLG #### [place] [address] CO2 molar conc 25 mmol/L Normal 21-32 [facility] Comment on above: Performed By: #### E DGLG #### [place] [address] Glucose mass conc 230 mg/dL High 70-99 [facility] Comment on above: Performed By: #### E DGLG #### [place] [address] Chloride molar conc 104 mmol/L Normal 98-107 [facility] Comment on above: Performed By: #### E DGLG #### [place] [address] Potassium molar conc 3.6 mmol/L Normal 3.5-5.1 [facility] Comment on above: Performed By: #### E DGLG #### [place] [address] Sodium molar conc 139 mmol/L Normal 136-145 [facility] Comment on above: Performed By: #### E DGLG #### [place] [address] Hemogramon 03-03-2018 Erythrocyte distribution width Ratio (RBC) 12.3 % Normal 11.7-14.4 [facility] Comment on above: Performed By: #### E DGLG #### [facility] [address] [place] [address] Hematocrit Volume Fraction (Bld) 34.1 % Normal 34.1-44.9 [facility] Comment on above: Performed By: #### E DGLG #### [facility] [address] [place] [address] Hemoglobin mass conc (Bld) 11.3 g/dL Normal 11.2-15.7 [facility] Comment on above: Performed By: #### E DGLG #### [facility] [address] [place] [address] MCH Entitic mass (RBC) 31.0 pg Normal 25.6-32.2 [facility] Comment on above: Performed By: #### E DGLG #### [facility] [address] [place] [address] MCHC mass conc (RBC) 33.1 % Normal 31.6-34.8 [facility] Comment on above: Performed By: #### E DGLG #### [facility] [address] [place] [address] MCV Entitic volume (RBC) 93.4 fL Normal 79.4-94.8 [facility] Comment on above: Performed By: #### E DGLG #### [facility] [address] [place] [address] Platelet mean volume Entitic volume (Bld) 10.8 fL Normal 9.4-12.3 [facility] Comment on above: Performed By: #### E DGLG #### [facility] [address] [place] [address] Platelets #/vol (Bld) 268 thou/cmm Normal 182-369 [facility] Comment on above: Performed By: #### E DGLG #### [facility] [address] [place] [address] RBC #/vol (Bld) 3.65 mil/cmm Low 3.93-5.22 [facility] Comment on above: Performed By: #### E DGLG #### [facility] [address] [place], [place] [address] RDW SD 42.5 fl Normal 36.4-46.3 [facility] Comment on above: Performed By: #### E DGLG #### [facility] [address] [place], [place] [address] WBC #/vol (Bld) 12.31 thou/cmm High 3.98-10.04 [facility] Comment on above: Performed By: #### E DGLG #### [address] [address] Lipid Profileon 03-03-2018 Cholesterol in HDL mass conc 29 mg/dL Normal >40 [facility] Comment on above: Performed By: #### E DGLG #### [address] [address] Cholesterol in LDL mass conc 64 mg/dL Normal [facility] Comment on above: Result Comment: No C AD and with fewer than 2 CAD risk factors <160 mg/dL No CAD but with 2 or more CAD risk factors <130 mg/dL Definite CAD or other atherosclerotic disease <100 mg/dL Performed By: #### E DGLG #### [address] [address] Cholesterol in LDL/Cholesterol in HDL mass ratio 2.2 Normal 0.6-3.6 [facility] Comment on above: Result Comment: LDL, VLDL,LDL/HDL, Invalid if Triglyceride >400 Performed By: #### E DGLG #### [facility] [address] [place], [place] [address] Cholesterol.total/Maude sterol in HDL mass ratio 4.6 {ratio} Normal 1.8-5.3 [facility] Comment on above: Performed By: #### E DGLG #### [facility] [address] [place], [place] [address] Cholesterol in VLDL mass conc 41 mg/dL Normal <50 Desired [facility] Comment on above: Performed By: #### E DGLG #### [facility] [address] [place], [place] [address] Triglyceride mass conc 207 mg/dL High 0-149 [facility] Comment on above: Result Comment: < 20 0 Desirable Result invalid if not a fasting specimen. Performed By: #### E DGLG #### [facility] [address] [place], [place] [address] Cholesterol mass conc 134 mg/dL Normal 0-199 [facility] Comment on above: Result Comment: <200 Desirable 200-240 Borderline >240 High Performed By: #### E DGLG #### [facility] [address] [place], [place] [address] NURSING PROGon 03-03-2018 Protein mass conc HNO ID: [id number] Author: Graciela (Rn) SUNDEEP Pineda Service: Nursing Author Type: Registered Nurse Type: Nursing Progress Note Filed: 03/03/2018 8:50 PM Note Text: Spoke with house med resident about pt. Blood sugar being critically high. Accucheck machine unable to read blood sugar due to being high. Orders for log sliding scale given and for BMP to be sent. Normal [facility] PROGRESSon 03-03-2018 Protein mass conc HNO ID: [id number] Author: Marielos (Dandy) Audra Service: Hospital Medicine Author Type: Resident [...] UTI. HX: Blood glucose improved. Spoke with case picker this morning; unlikely to be able to [...] patient's developmental delay. 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) [place] Diagnostic tests reviewed: Most recent labs [...] TIME: 7:42 AM PAGER/CONTACT #: [phone] Normal [facility] THERAPY NTon 03-03-2018 THERAPY NT HNO ID: [id number] Author: Mariana (Pt) Johnathan PT Service: Physical Therapy Author Type: Physical Therapist Type: Therapy (PT/OT/Speech/Resp) Filed: 03/03/2018 9:27 AM Note Text: Physical Therapy Treatment SERVICE DATE: 03/03/2018 SERVICE TIME: 839 to 902 ROOM: [id number] Recommended Discharge Disposition: Outpatient Physical Therapy Recommended [...] Diagnosis: Reduced mobility-other Interventions Provided: Therapeutic Exercise (61450);Therapeutic Activity (42133) Therapeutic Exercise (03605) Treatment Minutes: 15 1 unit Skilled Intervention(s): [...] - Static stance 2 minutes Therapeutic Activity (63351) Treatment Minutes: 8 1 unit Skilled Intervention(s): [...] 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 Denies any pain/discomfort and Agreeable to PT Home Environment Patient Lives With: Facility Care (half-way) Assistance Available: 24 Hour Entry To Home: [...] March 03, 2018 TIME: 9:25 AM Normal [facility] ALLIED HEALTHon 03-02-2018 ALLIED HEALTH HNO ID: [id number] Author: Cinthya (Rn) SUNDEEP Maloney Service: Diabetes Education Author Type: Registered Nurse Type: Allied Health Filed: 03/02/2018 4:23 PM Note Text: DIABETES EDUCATION PROGRESS NOTE SERVICE DATE: 03/02/2018 SERVICE TIME: 1500 RECOMMENDATIONS: Patient needs to follow-up with primary care physician after discharge. Prescriptions for diabetic supplies -insulin and glucometer. Patient lives at Adult half-way and has meals provided and clothes washed. [...] Developmentally disbled Family support: patient lives at half-way Education Type: Individual instruction Written instruction - handouts Verbal instruction Demonstration-Hands on Learning Response to education: States/Identifies, Return Demonstration, Needs Review and will need assist and supervision at half-way. Education provided to: Patient. Teachback method used. Time Spent (Minutes): 30 SIGNATURE: Cinthya Maloney RN PATIENT NAME: Cinthya Castillo DATE: March 02, 2018 TIME: 4:17 PM PAGER: [phone] Normal [facility] Basic Panelon 03-02-2018 Creatinine mass conc 1.16 mg/dL High 0.51-0.95 [facility] Comment on above: Performed By: #### E DGLG #### [place] [address] Anion gap molar conc 16 mmol/L Normal 8-16 [facility] Comment on above: Performed By: #### E DGLG #### [place] [address] Calcium mass conc 8.8 mg/dL Normal 8.5-10.1 [facility] Comment on above: Performed By: #### E DGLG #### [place] [address] CO2 molar conc 22 mmol/L Normal 21-32 [facility] Comment on above: Performed By: #### E DGLG #### [facility] [address] [place] [address] Glucose mass conc 447 mg/dL Critically high 70-99 [facility] Comment on above: Performed By: #### E DGLG #### [facility] [address] [place] [address] Urea nitrogen mass conc 32 mg/dL High 7-18 [facility] Comment on above: Performed By: #### E DGLG #### [place] [address] Chloride molar conc 98 mmol/L Normal 98-107 [facility] Comment on above: Performed By: #### E DGLG #### [facility] [address] [place], [place] [address] Potassium molar conc 4.0 mmol/L Normal 3.5-5.1 [facility] Comment on above: Performed By: #### E DGLG #### [facility] [address] [place] [address] Sodium molar conc 132 mmol/L Low 136-145 [facility] Comment on above: Performed By: #### E DGLG #### [facility] [address] [place], [place] [address] Creatinine mass conc 1.10 mg/dL High 0.51-0.95 [facility] Comment on above: Performed By: #### E DKG #### [facility] [address] [place] [address] Urea nitrogen mass conc 37 mg/dL High 7-18 [facility] Comment on above: Performed By: #### E DKG #### [facility] [address] [place], [place] [address] Anion gap molar conc 16 mmol/L Normal 8-16 [facility] Comment on above: Performed By: #### E DKG #### [facility] [address] [place], [place] [address] Calcium mass conc 8.8 mg/dL Normal 8.5-10.1 [facility] Comment on above: Performed By: #### E DKG #### [facility] [address] [place] [address] CO2 molar conc 20 mmol/L Low 21-32 [facility] Comment on above: Performed By: #### E DKG #### [facility] [address] [place], [place] [address] Glucose mass conc 359 mg/dL High 70-99 [facility] Comment on above: Performed By: #### E DKG #### [facility] [address] [place] [address] Chloride molar conc 102 mmol/L Normal 98-107 [facility] Comment on above: Performed By: #### E DKG #### [facility] [address] [place] [address] Potassium molar conc 3.8 mmol/L Normal 3.5-5.1 [facility] Comment on above: Performed By: #### E DKG #### [facility] [address] [place] [address] Sodium molar conc 134 mmol/L Low 136-145 [facility] Comment on above: Performed By: #### E DKG #### [facility] [address] [place] [address] CASE MGT INIT RANDIon 2017 CASE MGT INIT ASSMERLE HNO ID: [id number] Author: Rdaha (Rn) SUNDEEP Thomas Service: Care Management Author Type: Registered Nurse Type: Care Mgt Initial Assessment Filed: 03/02/2018 1:18 PM Note Text: CARE MANAGEMENT: ASSESSMENT AND DISCHARGE PLAN SERVICE DATE: 03/02/2018 SERVICE TIME: 11:21 AM PRIMARY CARE PHYSICIAN: Kristel Nunes MD ADMISSION STATUS: Inpatient Needs Prior to Discharge: To Be Determined MEDICAL: Patient/Public Health Dietitian Stated Goals: To return home to life as it was Health Insurance: [facility] MEDICAID None Health Issues Impacting Discharge Plan: None and mild MRDD Last Admission Date: none Is this Within the Past 30 days? No Advance Directive: Current Advance Directive: None Side Door Man Attempted to Assist with AD Completion: Yes [...] opportunity to ask questions and stated her well service floor worker Clifton usually assists with medical information FUNCTIONAL AND COGNITIVE/BEHAVIORAL PRIOR TO ADMISSION: Baseline Mental Status: Alert AND Oriented, Person, Place , Time and Situation Functional Status: Needs Assistance Does Patient Currently Receive Any Community Services or Home Care? Social Agency: [facility], Clifton Murray [phone] Equipment Prior to Admission: Cane - Straight Has the Patient Been in a Residential Facility in the Past 30 days? No SOCIAL: Living Arrangement: Home, lives in a facility known as [facility]. An "adult" half-way Lives With: essentially a half-way, with multiple adults Financial Resources: Disabled Primary Contact: Extended Emergency Contact Information Primary Emergency Contact: SrikanthJennifern Mobile Relation: [facility] Side Door Man Supportive: Yes Other Important Patient Contacts: Joyce Edouard, owner/[facility] of [facility], [facility] in which patient resides [phone] Caregiver Assessment: Caregiver is ready, willing and [...] 0 I feel financially burdened by my asb-lq-wxlzxh expenses for my prescription medication: Disagree completely [...] to patient and Clifton Murray, the patient's animal care assistant from [facility],at bedside. Patient resides in essentially an adult half-way. Clifton provides transportation and can provide transport at d/c. +Rx coverage- patient has docudose delivered from [employer] on [email or web address]. Clifton does assist patient as needed with medical forms and social needs as they present themselves. No current needs identified. Will continue to follow. SIGNATURE: Radha Thomas RN PATIENT NAME: Cinthya Castillo DATE: March 02, 2018 TIME: 11:21 AM PAGER/CONTACT #: [phone] Normal [facility] CONSULT PROGon 03-02-2018 Protein mass conc HNO ID: [id number] Author: Cassandra (Rn) SUNDEEP Barkley Service: Wound Care Team Author Type: Registered Nurse Type: Consult Progress Note Filed: 03/02/2018 9:19 AM Note Text: WOUND CARE NURSE CONSULT NOTE SERVICE DATE: 03/02/2018 SERVICE TIME: 835 REASON FOR VISIT: Wound TIME SPENT (minutes): 15 Wound care consulted for right elbow. Patient seen by FATOUMATA DonovanC, and swati underground bolting machine operator. Abrasion to right elbow. Start xeroform, and cover dressing daily. Dermatologic rash/wound to buttocks. Start critic aid clear BID and PRN incontinence to bilateral buttocks. Allevyn to sacrum. Turn schedule. DOR774 bed. Offload heels with pillows. Eucerin to BLE and feet, avoid between toes, daily. Wound care to sign off. Please reconsult if needed. Documentation from Wound Expert can be found in scanned documents. SIGNATURE: Cassandra Barkley RN, CWOCN PATIENT NAME: Cinthya Castillo DATE: March 02, 2018 TIME: 9:17 AM CONTACT#: [id number] Normal [facility] Comprehensive Panelon 2017 ALP enzyme act/vol 106 U/L Normal 46-116 [facility] Comment on above: Performed By: #### E DKG #### [facility] [address] [place] [address] Protein mass conc 7.0 g/dL Normal 6.4-8.2 [facility] Comment on above: Performed By: #### E DKG #### [facility] [address] [place], [place] [address] Bilirubin mass conc 0.6 mg/dL Normal 0.2-1.0 [facility] Comment on above: Performed By: #### E DKG #### [facility] [address] [place], [place] [address] ALT enzyme act/vol 23 U/L Normal [facility] Comment on above: Performed By: #### E DKG #### [facility] [address] [place], [place] [address] AST enzyme act/vol 14 U/L Normal 9-37 [facility] Comment on above: Performed By: #### E DKG #### [facility] [address] [place], [place] [address] Creatinine mass conc 1.23 mg/dL High 0.51-0.95 [facility] Comment on above: Performed By: #### E DKG #### [facility] [address] [place] [address] Glucose mass conc 297 mg/dL High 70-99 [facility] Comment on above: Performed By: #### E DKG #### [facility] [address] [place] [address] Albumin mass conc 2.7 g/dL Low 3.4-5.0 [facility] Comment on above: Performed By: #### E DKG #### [facility] [address] [place] [address] Anion gap molar conc 15 mmol/L Normal 8-16 [facility] Comment on above: Performed By: #### E DKG #### [facility] [address] [place], [place] [address] Calcium mass conc 8.1 mg/dL Low 8.5-10.1 [facility] Comment on above: Performed By: #### E DKG #### [facility] [address] [place] [address] CO2 molar conc 22 mmol/L Normal 21-32 [facility] Comment on above: Performed By: #### E DKG #### [facility] [address] [place] [address] Urea nitrogen mass conc 36 mg/dL High 7-18 [facility] Comment on above: Performed By: #### E DKG #### [facility] [address] [place] [address] Chloride molar conc 103 mmol/L Normal 98-107 [facility] Comment on above: Performed By: #### E DKG #### [facility] [address] [place] [address] Potassium molar conc 3.7 mmol/L Normal 3.5-5.1 [facility] Comment on above: Performed By: #### E DKG #### [facility] [address] [place] [address] Sodium molar conc 136 mmol/L Normal 136-145 [facility] Comment on above: Performed By: #### E DKG #### [facility] [address] [place] [address] Hemogramon 03-02-2018 Erythrocyte distribution width Ratio (RBC) 12.6 % Normal 11.7-14.4 [facility] Comment on above: Performed By: #### E DKG #### [facility] [address] [place] [address] Hematocrit Volume Fraction (Bld) 33.2 % Low 34.1-44.9 [facility] Comment on above: Performed By: #### E DKG #### [place] [address] Hemoglobin mass conc (Bld) 11.0 g/dL Low 11.2-15.7 [facility] Comment on above: Performed By: #### E DKG #### [place] [address] MCH Entitic mass (RBC) 30.5 pg Normal 25.6-32.2 [facility] Comment on above: Performed By: #### E DKG #### [place] [address] MCHC mass conc (RBC) 33.1 % Normal 31.6-34.8 [facility] Comment on above: Performed By: #### E DKG #### [facility] [address] [place] [address] MCV Entitic volume (RBC) 92.0 fL Normal 79.4-94.8 [facility] Comment on above: Performed By: #### E DKG #### [place] [address] Platelet mean volume Entitic volume (Bld) 10.8 fL Normal 9.4-12.3 [facility] Comment on above: Performed By: #### E DKG #### [facility] [address] [place] [address] Platelets #/vol (Bld) 261 thou/cmm Normal 182-369 [facility] Comment on above: Performed By: #### E DKG #### [facility] [address] [place] [address] RBC #/vol (Bld) 3.61 mil/cmm Low 3.93-5.22 [facility] Comment on above: Performed By: #### E DKG #### [facility] [address] [place] [address] RDW SD 42.4 fl Normal 36.4-46.3 [facility] Comment on above: Performed By: #### E DKG #### [facility] [address] [place] [address] WBC #/vol (Bld) 14.22 thou/cmm High 3.98-10.04 [facility] Comment on above: Performed By: #### E DKG #### [facility] [address] [place] [address] NUTRITIONon 03-02-2018 NUTRITION HNO ID: [id number] Author: Perla Elias RD Service: Nutrition Therapy [...] 2018 TIME: 3:43 PM PAGER: [phone] Normal [facility] PLAN OF CAREon 03-02-2018 PLAN OF CARE HNO ID: [id number] Author: Gabo Jackson Service: Pharmacy Author Type: Pharmacist Type: Plan of Care Filed: 03/02/2018 1:37 PM Note Text: MEDICATION HISTORY AND MEDICATION RECONCILIATION Patient Name:Gregor Castillo : 1960 Source of history:Patient: Reliability of source: Patient does not know her meds but takes all that is in the compliace packaging from [facility], Pharmacy records: [facility] records and [facility] Medication Nonadherence Identified: Patient has compliance packaging and was supposed to be on insulin but has not been taking for a while. The above information represents the best possible medication history: Yes Reconciliation completed? Yes Medications intentionally held at admission: Most medications held on admission and new insulin regimen started. Will discuss with med team at afternoon rounds regarding updated EXTRACT PULLER med list Additional comments: Confirmed all meds filled at [facility] in compliance package on 01/24/2018 Allergies: ALLERGIES Allergen Reactions - Penicillin Unknown Pt unaware of reaction Preferred Pharmacy: [facility] Current EXTRACT PULLER Medications: Prior to Admission medications as of [...] Jackson, PharmD March 02, 2018 1:15 PM [facility] PROGRESSon 03-02-2018 Protein mass conc HNO ID: [id number] Author: Marielos Zhu Service: Hospital Medicine Author [...] patient's developmental delay. 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) [place] Diagnostic tests reviewed: Most recent labs [...] 1117 -- 03/01/18 1715 pneumatic compression stockings (ks,oh) VTE Prophylaxis: VTE prophylaxis appropriate Plan of care discussed with: Attending and Patient SIGNATURE: Marielos Zhu DO PATIENT NAME: Cinthya Castillo DATE: March 02, 2018 TIME: 2:07 PM PAGER/CONTACT #: [phone] [facility] THERAPY NTon 12-12-2018 THERAPY NT HNO ID: [id number] Author: Mariana PattenPt) MARIFER Mann Service: Physical Therapy Author Type: Physical Therapist Type: Therapy (PT/OT/Speech/Resp) Filed: 03/02/2018 11:55 AM Note Text: Physical Therapy Evaluation SERVICE DATE: 03/02/2018 SERVICE TIME: 1120 to 1143 ROOM: [place] [address] Recommended Discharge Disposition: Outpatient Physical Therapy Recommended [...] in Chair;Call Grayson in Reach;Other: See Comment (interactive marketing strategist present) Tolerated Full Session Physical Therapy Problem [...] Diagnosis: Reduced mobility-other Interventions Provided: Evaluation;Gait Training (59757) $ Evaluation-Low (69433) Billed Units: 1 unit Gait Training (42900) Treatment Minutes: 8 1 unit Skilled Intervention(s): [...] file. 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 Patient states she fell because she was rushing when got up out of bed. Agreeable to PT Home Environment Patient Lives With: Facility Care (half-way) Assistance Available: 24 Hour Entry To Home: [...] March 02, 2018 TIME: 11:51 AM Normal [facility] THERAPY NT HNO ID: [id number] Author: Bruna Rosalesr/Olman Pantoja OT Service: Occupational Therapy Author Type: Occupational Therapist Type: Therapy (PT/OT/Speech/Resp) Filed: 03/02/2018 11:43 AM Note Text: Occupational Therapy Evaluation SERVICE DATE: 03/02/2018 SERVICE TIME: 1111 to 1126 ROOM: [place] [address] Recommended Discharge Disposition: Home Recommended Discharge Disposition Comments: Return to half-way with continued assist for IADLs Anticipated Discharge [...] living (ADL) Interventions Provided: Evaluation $ Evaluation-Low (48272) Billed Units: 1 unit Total Treatment Time [...] in DKA. 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 No c/o pain. Home Environment Patient Lives With: Facility Care (half-way - lives with 3 males and aids [...] complete details for this therapy evaluation/treatment. SIGNATURE: CONSTANCE Loomis PATIENT NAME: Cinthya Castillo DATE: March 02, 2018 TIME: 11:40 AM Normal [facility] Basic Panelon 03-01-2018 Glucose mass conc 524 mg/dL Critically high 70-99 [facility] Comment on above: Performed By: #### E DKG #### [facility] [address] [place] [address] Creatinine mass conc 1.25 mg/dL High 0.51-0.95 [facility] Comment on above: Performed By: #### E DKG #### [address] [place] [address] Anion gap molar conc 16 mmol/L Normal 8-16 [facility] Comment on above: Performed By: #### E DKG #### [facility] [address] [place] [address] CO2 molar conc 23 mmol/L Normal 21-32 [facility] Comment on above: Performed By: #### E DKG #### [facility] [address] [place] [address] Urea nitrogen mass conc 47 mg/dL High 7-18 [facility] Comment on above: Performed By: #### E DKG #### [facility] [address] [place] [address] Calcium mass conc 8.7 mg/dL Normal 8.5-10.1 [facility] Comment on above: Performed By: #### E DKG #### [facility] [address] [place] [address] Chloride molar conc 99 mmol/L Normal 98-107 [facility] Comment on above: Performed By: #### E DKG #### [facility] [address] [place] [address] Potassium molar conc 4.0 mmol/L Normal 3.5-5.1 [facility] Comment on above: Performed By: #### E DKG #### [facility] [address] [place] [address] Sodium molar conc 134 mmol/L Low 136-145 [facility] Comment on above: Performed By: #### E DKG #### [facility] [address] [place] [address] CHEST 2 VIEWSon 03-01-2018 CHEST 2 VIEWS Performed at [facility] APPROVED BY: Alex Cam MD EXAMINATION: [...] IMPRESSION: There is no acute disease. Normal [facility] Comprehensive Panelon 2017 ALT enzyme act/vol 28 U/L Normal 12-78 [facility] Comment on above: Performed By: #### P 14 #### [facility] [address] [place] [address] ALP enzyme act/vol 122 U/L High 46-116 [facility] Comment on above: Performed By: #### P 14 #### [facility] [address] [place], [place] [address] Bilirubin mass conc 0.9 mg/dL Normal 0.2-1.0 [facility] Comment on above: Performed By: #### P 14 #### [facility] [address] [place], [place] [address] Glucose mass conc 735 mg/dL Critically high 70-99 [facility] Comment on above: Performed By: #### P 14 #### [facility] [address] [place], [place] [address] Protein mass conc 8.2 g/dL Normal 6.4-8.2 [facility] Comment on above: Performed By: #### P 14 #### [facility] [address] [place], [place] [address] AST enzyme act/vol 19 U/L Normal 9-37 [facility] Comment on above: Performed By: #### P 14 #### [facility] [address] [place], [place] [address] Creatinine mass conc 1.51 mg/dL High 0.51-0.95 [facility] Comment on above: Performed By: #### P 14 #### [facility] [address] [place], [place] [address] Albumin mass conc 3.2 g/dL Low 3.4-5.0 [facility] Comment on above: Performed By: #### P 14 #### [facility] [address] [place] [address] Anion gap molar conc 20 mmol/L High 8-16 [facility] Comment on above: Performed By: #### P 14 #### [facility] [address] [place] [address] Calcium mass conc 9.3 mg/dL Normal 8.5-10.1 [facility] Comment on above: Performed By: #### P 14 #### [facility] [address] [place] [address] CO2 molar conc 20 mmol/L Low 21-32 [facility] Comment on above: Performed By: #### P 14 #### [facility] [address] [place] [address] Urea nitrogen mass conc 55 mg/dL High 7-18 [facility] Comment on above: Performed By: #### P 14 #### [facility] [address] [place] [address] Chloride molar conc 91 mmol/L Low 98-107 [facility] Comment on above: Performed By: #### P 14 #### [facility] [address] [place] [address] Potassium molar conc 4.0 mmol/L Normal 3.5-5.1 [facility] Comment on above: Performed By: #### P 14 #### [facility] [address] [place] [address] Sodium molar conc 127 mmol/L Low 136-145 [facility] Comment on above: Performed By: #### P 14 #### [facility] [address] [place] [address] Cult Bloodon 03-01-2018 Cult Blood Test performed at [facility] No growth The blood cultures are under-filled. Adding volumes lower or higher than 8-10 ml per aerobic bottle or 5-7 ml per anaerobic bottle, which is the manufacturers recommended volume, may adversely affect the recovery and/or detection of organisms. Normal [facility] Comment on above: Performed By: #### E DKG #### [facility] [address] [place] [address] Cult Blood Test performed at [facility] No growth Normal [facility] Comment on above: Performed By: #### E DGLG #### [facility] [address] [place], [place] [address] Cult Urineon 03-01-2018 Cult Urine Test performed at [facility] Mixed skin dani. No further identification or susceptibility testing will be performed. Please submit a new specimen. Plates will be held for 5 days. Normal [facility] Comment on above: Performed By: #### E DGLG #### [facility] [address] [place] [address] ED NOTEon 03-01-2018 ED NOTE HNO ID: [id number] Author: Antoine Moise RN Service: Emergency Medicine Author Type: Registered Nurse Type: ED Notes Filed: 03/01/2018 11:47 AM Note Text: Urine culture obtained AND sent Normal [facility] ED NOTE HNO ID: [id number] Author: Antoine Moise RN Service: Emergency Medicine Author Type: Registered Nurse Type: ED Notes Filed: 03/01/2018 11:27 AM Note Text: Clean catch urine specimen obtained AND sent to lab. Culture held in lab Normal [facility] ED NOTE HNO ID: [id number] Author: Antoine Moise RN Service: Emergency Medicine Author Type: Registered Nurse Type: ED Notes Filed: 03/01/2018 11:32 AM Note Text: Radiology notified pt is ready for x-ray Normal [facility] ED NOTE HNO ID: [id number] Author: Paris King (Tech) Service: Emergency Medicine Author Type: Director Of Residence Life Type: ED Notes Filed: 03/01/2018 10:41 AM Note Text: Blood sugar check performed per request of Sherry with the result of critically high. Sherry notified at this time. Normal [facility] ED NOTE HNO ID: [id number] Author: Cassandra Dailey RN Service: Emergency Medicine Author Type: Registered Nurse Type: ED Notes Filed: 03/01/2018 10:34 AM Note Text: Pt placed on monitor at this time. Side rails up. Call light within reach. Fall risk band on Normal [facility] ED NOTE HNO ID: [id number] Author: Cassandra Dailey RN Service: Emergency Medicine Author Type: Registered Nurse Type: ED Notes Filed: 03/01/2018 10:27 AM Note Text: Per ems, pt lives in half-way. Fell last night after dinner. Denies hitting head. States woke up this am with weak legs. Ems called. Ems check fsbs, 550>. Pt A/Ox4 upon arrival. Normal [facility] ED NOTE HNO ID: [id number] Author: Jeramy (Medic) Chuyita Valdivia Service: (none) Author Type: Beef Lugger and Director Of Residence Life Type: ED Notes Filed: 03/01/2018 10:20 AM Note Text: Bed: 10-ED Expected date: 03/01/18 Expected time: 10:11 AM Means of arrival: Irvona Comments: afd av-1 hi bs weakness Normal [facility] ED PROV NOTEon 03-01-2018 Protein mass conc HNO ID: [id number] Author: Radha Romero MD Service: Emergency Medicine [...] tachycardia no ST abnormalities consistent with acute [place]. The patient had an IV established blood [...] course. Radha Romero MD 03/01/18 1725 Normal [facility] Protein mass conc HNO ID: [id number] Author: Joss Andrew MD Service: Emergency Medicine [...] while in the Emergency Department. 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 Condition at time of disposition: stable SIGNATURE: MD Joss Boudreaux (Res) MD Lorrie Resident 03/01/18 1603 Radha Romero MD 03/01/18 1740 Normal [facility] Glucoseon 03-01-2018 Glucose mass conc 679 mg/dL High 70-99 [facility] Comment on above: Performed By: #### E DGLG #### [place] [address] HIP 3V PELV/AP/LAT LEFTon HIP 3V PELV/AP/LAT LEFT Performed at [facility] APPROVED BY: Alex Cam MD EXAM [...] Otherwise negative pelvis and left hip. Normal [facility] HISTORY PHYSICALon HISTORY PHYSICAL HNO ID: [id number] Author: Davy Ontiveros (Dandy) Nitza Service: Hospital [...] doc-u-dose. She reveals that she has a case picker. PE: BP 118/69 Pulse 115 Temp 36.7 [...] UTI. SW consult to assist with contacting case picker; given elevated blood sugar/A1C and patient lack [...] Lymph 1.18 - 3.74 thou/cmm 1.[address] [place] 0.27 - 0.70 thou/cmm 1.07 (H) Abs. Eosin 0.00 - 0.31 thou/cmm 0.09 Abs. Baso 0.01 - 0.08 thou/cmm 0.05 Color YELLOW Urine Appearance CLOUDY Glucose, Urine Negative mg/dL >=1000 (A) Ketones, Urine Negative mg/dL TRACE (A) Hemoglobin, Urine Negative SMALL (A) Protein, Urine Negative mg/dL NEGATIVE Nitrites Urine Negative NEGATIVE Bilirubin, Urine Negative NEGATIVE Specific [place], Ur 1.005 - 1.030 1.034 pH, Urine [...] 1711 -- 03/01/18 1715 pneumatic compression stockings (ks,oh) VTE Prophylaxis: VTE prophylaxis appropriate SIGNATURE: Davy Goddard MD PATIENT NAME: Cinthya Castillo DATE: March 01, 2018 TIME: 5:44 PM PAGER/CONTACT #: [phone] Normal [facility] Hemogram/Diffon 03-01-2018 Abs Immature Grans 0.23 thou/cmm High 0.00-0.05 [facility] Comment on above: Performed By: #### E DKG #### [place] [address] Abs. Baso 0.05 thou/cmm Normal 0.01-0.08 [facility] Comment on above: Result Comment: Smea r scanned; tech agrees with automated differential Performed By: #### E DKG #### [place] [address] [place] 1.07 thou/cmm High 0.27-0.70 [facility] Comment on above: Performed By: #### E DKG #### [place] [address] Abs. Neut (ANC) 12.00 thou/cmm High 1.56-6.13 [facility] Comment on above: Performed By: #### E DKG #### [place] [address] Basophils/100 WBC (Bld) 0.3 % Normal [facility] Comment on above: Performed By: #### E DKG #### [place] [address] Eosinophils #/vol (Bld) 0.09 thou/cmm Normal 0.00-0.31 [facility] Comment on above: Performed By: #### E DKG #### [place] [address] Eosinophils/100 WBC (Bld) 0.6 % Normal [facility] Comment on above: Performed By: #### E DKG #### [place] [address] Immature Grans 1.50 % Normal [facility] Comment on above: Performed By: #### E DKG #### [facility] [address] [place] [address] Lymphocytes #/vol (Bld) 1.64 thou/cmm Normal 1.18-3.74 [facility] Comment on above: Performed By: #### E DKG #### [facility] [address] [place] [address] Lymphocytes/100 WBC (Bld) 10.9 % Normal [facility] Comment on above: Performed By: #### E DKG #### [facility] [address] [place] [address] Monocytes/100 WBC (Bld) 7.1 % Normal [facility] Comment on above: Performed By: #### E DKG #### [facility] [address] [place] [address] Seg Neutrophil 79.6 % Normal [facility] Comment on above: Performed By: #### E DKG #### [facility] [address] [place] [address] Erythrocyte distribution width Ratio (RBC) 12.3 % Normal 11.7-14.4 [facility] Comment on above: Performed By: #### E DKG #### [facility] [address] [place] [address] Hematocrit Volume Fraction (Bld) 36.3 % Normal 34.1-44.9 [facility] Comment on above: Performed By: #### E DKG #### [facility] [address] [place] [address] Hemoglobin mass conc (Bld) 12.3 g/dL Normal 11.2-15.7 [facility] Comment on above: Performed By: #### E DKG #### [facility] [address] [place] [address] MCH Entitic mass (RBC) 30.5 pg Normal 25.6-32.2 [facility] Comment on above: Performed By: #### E DKG #### [facility] [address] [place] [address] MCHC mass conc (RBC) 33.9 % Normal 31.6-34.8 [facility] Comment on above: Performed By: #### E DKG #### [place] [address] MCV Entitic volume (RBC) 90.1 fL Normal 79.4-94.8 [facility] Comment on above: Performed By: #### E DKG #### [place] [address] Platelet mean volume Entitic volume (Bld) 10.3 fL Normal 9.4-12.3 [facility] Comment on above: Performed By: #### E DKG #### [place] [address] Platelets #/vol (Bld) 268 thou/cmm Normal 182-369 A [facility] Comment on above: Performed By: #### E DKG #### [place] [address] RBC #/vol (Bld) 4.03 mil/cmm Normal 3.93-5.22 [facility] Comment on above: Performed By: #### E DKG #### [place] [address] RDW SD 40.4 fl Normal 36.4-46.3 [facility] Comment on above: Performed By: #### E DKG #### [place] [address] WBC #/vol (Bld) 15.08 thou/cmm High 3.98-10.04 [facility] Comment on above: Performed By: #### E DKG #### [place] [address] Hgb A1con 03-01-2018 Hemoglobin A1c/Hemoglobin.total mass fraction (Bld) 14.7 % High 4.2-6.3 [facility] Comment on above: Result Comment: Meth od is National Glycohemoglobin Standardization Program (NGSP) compliant. Performed By: #### E DKG #### [place] [address] Hemoglobin A1c/Hemoglobin.total mass fraction (Bld) 375 mg/dl Normal [facility] Comment on above: Performed By: #### E DKG #### [facility] [address] [place] [address] Lactic Acidon 03-01-2018 Lactate molar conc 1.6 mmol/L Normal 0.5-2.2 [facility] Comment on above: Performed By: #### E DKG #### [facility] [address] [place] [address] Lipase Bloodon 03-01-2018 Lipase Blood 290 U/L Normal 73-393 [facility] Comment on above: Performed By: #### L IP #### [facility] [address] [place] [address] Magnesium Bloodon 03-01-2018 Magnesium mass conc 1.8 mg/dL Normal 1.6-2.6 [facility] Comment on above: Performed By: #### E DKG #### [facility] [address] [place] [address] Phosphorus Bloodon 8 Phosphate mass conc 2.5 mg/dL Normal 2.5-4.9 [facility] Comment on above: Performed By: #### E DKG #### [facility] [address] [place] [address] Potassiumon 03-01-2018 Potassium molar conc 4.1 mmol/L Normal 3.4-4.5 [facility] Comment on above: Performed By: #### E DKG #### [facility] [address] [place] [address] Urinalysis Routineon 018 Bacteria LM.HPF #/area (Urine sed) FEW Normal None [facility] Comment on above: Performed By: #### U RIN2 #### [facility] [address] [place] [address] Ep Cells Urine 8.4 /hpf High 0.0-5.0 [facility] Comment on above: Performed By: #### U RIN2 #### [facility] [address] [place] [address] Hyaline Cast 1.9 /lpf High 0.0-1.0 [facility] Comment on above: Performed By: #### U RIN2 #### [facility] [address] [place] [address] RBC,Urine 46.8 /hpf High 0.0-5.0 [facility] Comment on above: Performed By: #### U RIN2 #### [facility] [address] [place] [address] WBC, Urine 158.5 /hpf High 0.0-5.0 [facility] Comment on above: Performed By: #### U RIN2 #### [facility] [address] [place] [address] Appearance Nom (U) CLOUDY Normal [facility] Comment on above: Performed By: #### U RIN2 #### [facility] [address] [place] [address] Bilirubin Urine Negative Normal Negative [facility] Comment on above: Performed By: #### U RIN2 #### [facility] [address] [place] [address] Color Nom (U) YELLOW Normal [facility] Comment on above: Performed By: #### U RIN2 #### [facility] [address] [place] [address] Glucose Ql (U) >=1000 Abnormal Negative [facility] Comment on above: Performed By: #### U RIN2 #### [place] [address] Hemoglobin,Urine SMALL Abnormal Negative [facility] Comment on above: Performed By: #### U RIN2 #### [facility] [address] [place] [address] Ketone Urine TRACE Abnormal Negative [facility] Comment on above: Performed By: #### U RIN2 #### [facility] [address] [place] [address] Leukocytes Esterase MODERATE Abnormal Negative [facility] Comment on above: Performed By: #### U RIN2 #### [place] [address] Nitrites Urine Negative Normal Negative [facility] Comment on above: Performed By: #### U RIN2 #### [facility] [address] [place], [place] [address] pH (U) 5.0 [pH] Normal 5.0-8.0 [facility] Comment on above: Performed By: #### U RIN2 #### [facility] [address] [place], [place] [address] Protein mass conc (U) Negative Normal Negative [facility] Comment on above: Performed By: #### U RIN2 #### [facility] [address] [place] [address] Specific [place], Ur 1.034 Normal 1.005-1.030 [facility] Comment on above: Performed By: #### U RIN2 #### [facility] [address] [place] [address] Urobilinogen,Ur 0.2 EU/dL Normal 0.0-1.0 [facility] Comment on above: Performed By: #### U RIN2 #### [place] [address] Venous Blood Gason 8 Base Excess -3.2 mEq/L Low -2.5 to 2.5 [facility] Comment on above: Performed By: #### E DVBG #### [place] [address] HCO3 molar conc (Bld) 21.2 mmol/L Normal 21.0-30.0 [facility] Comment on above: Performed By: #### E DVBG #### [facility] [address] [place] [address] PCO2 Venous 38.1 mm Hg Low 40.6-60.0 [facility] Comment on above: Performed By: #### E DVBG #### [facility] [address] [place] [address] pH Venous 7.364 Normal 7.320-7.430 [facility] Comment on above: Performed By: #### E DVBG #### [place] [address] PO2 Venous 42.3 mm Hg High 15.9-37.5 [facility] Comment on above: Performed By: #### E DVBG #### [facility] [address] [place] [address] Culture, urine Bacteria identified Cx Nom (U) Positive [facility] Work Phone: Vital Signs Date Time Vital Sign Value Performing Clinician Elke woodard 09-08-2023 13:04-0400 Body height 167.6 cm Lex Roca MD Work Phone: [facility] [email or web address] 09-08-2023 13:04-0400 Body mass index (BMI) [Ratio] 50.84 kg/m2 Lex Roca MD Work Phone: [facility] [email or web address] 09-08-2023 13:04-0400 Body weight 142.88 kg Lex Roca MD Work Phone: [facility] [email or web address] 09-07-2023 23:42-0400 Diastolic blood pressure 89 mm[Hg] Debora Athens DO Work Phone: [facility] [email or web address] 09-07-2023 23:42-0400 Heart rate 84 /min Debora Athens DO Work Phone: [facility] [email or web address] 09-07-2023 23:42-0400 Respiratory rate 16 /min Debora Athens DO Work Phone: [facility] [email or web address] 09-07-2023 23:42-0400 SaO2% (BldA) [Mass fraction] 98 % Debora Athens DO Work Phone: [facility] [email or web address] 09-07-2023 23:42-0400 Systolic blood pressure 140 mm[Hg] Debora Athens DO Work Phone: [facility] [email or web address] 09-07-2023 17:28-0400 Body temperature 98.6 [degF] Debora Athens DO Work Phone: [facility] [email or web address] 12-11-2022 13:25-0400 Diastolic blood pressure 83 mm[Hg] Micheal Silva MD Work Phone: [facility] [email or web address] 12-11-2022 13:25-0400 Heart rate 102 /min Micheal Silva MD Work Phone: [facility] [email or web address] 12-11-2022 13:25-0400 Respiratory rate 18 /min Micheal Silva MD Work Phone: [facility] [email or web address] 12-11-2022 13:25-0400 SaO2% (BldA) [Mass fraction] 93 % Micheal Silva MD Work Phone: [facility] [email or web address] 12-11-2022 13:25-0400 Systolic blood pressure 145 mm[Hg] Micheal Silva MD Work Phone: [facility] [email or web address] 12-11-2022 11:50-0400 Body height 167.6 cm Micheal Silva MD Work Phone: [facility] [email or web address] 12-11-2022 11:50-0400 Body mass index (BMI) [Ratio] 51 kg/m2 Micheal Silva MD Work Phone: [facility] [email or web address] 12-11-2022 11:50-0400 Body temperature 97.5 [degF] Micheal Silva MD Work Phone: [facility] [email or web address] 12-11-2022 11:50-0400 Body weight 143.34 kg Micheal Silva MD Work Phone: [facility] [email or web address] 11-12-2022 10:30-0400 Diastolic blood pressure 82 mm[Hg] Micheal iSlva MD Work Phone: [facility] [email or web address] 11-12-2022 10:30-0400 Heart rate 86 /min Micheal Silva MD Work Phone: [facility] [email or web address] 11-12-2022 10:30-0400 Systolic blood pressure 151 mm[Hg] Micheal Silva MD Work Phone: [facility] [email or web address] 05-21-2022 10:00-0500 Body height 167.6 cm Lex Roca Work Phone: [facility] [email or web address] 05-21-2022 10:00-0500 Body mass index (BMI) [Ratio] 50.84 kg/m2 Lex Roca Work Phone: [facility] 05-21-2022 10:00-0500 Body weight 142.88 kg Lex Roca Work Phone: [facility] Encounters Encounter Date Encounter Type Care Provider Facility Start: 12-03-2024 End: 12-04-2024 Emergency department patient visit LEX ROCA [facility] Start: 11-11-2024 End: 11-14-2024 Evaluation and management of inpatient LEX ROCA [facility] Start: 11-10-2024 End: 11-11-2024 Emergency department patient visit LEX ROCA [facility] Start: 10-20-2024 End: 10-20-2024 ambulatory LEX ROCA [facility] Start: 10-17-2024 End: 10-18-2024 Emergency department patient visit LEX ROCA [facility] Start: 09-25-2024 End: 09-25-2024 ambulatory Lex HERNANDEZ [facility] [address] Start: 09-25-2024 End: 09-25-2024 Departed Referred Lex Roca -[facility] - [address] Start: 09-25-2024 End: 09-25-2024 ambulatory Lex HERNANDEZ Facility:[facility] Start: 09-20-2024 ambulatory Lex HERNANDEZ Facil ity:[facility] Start: 09-20-2024 Registered Referred eLx stein [facility] - [address] Start: 08-16-2024 End: 08-16-2024 ambulatory Lex HERNANDEZ -[facility] - [address] Start: 08-16-2024 End: 08-16-2024 Departed Referred Lex Roca -[facility] - [address] Start: 08-16-2024 Registered Referred Lex stein [facility] - [address] Start: 08-16-2024 End: 08-16-2024 ambulatory Lex HERNANDEZ Facility:[facility] Start: 07-19-2024 End: 07-19-2024 Departed Referred Lex Roca -[facility] - [address] Start: 07-19-2024 Registered Referred Lex stein [facility] - [address] Start: 07-19-2024 End: 07-19-2024 ambulatory Lex Roca MARY Facility:[facility] Start: 07-17-2024 End: 07-17-2024 ambulatory Lex HERNANDEZ [facility] Work Phone: Start: 07-17-2024 End: 07-17-2024 Departed Referred Lex Trujillo [place] - [address] Start: 07-17-2024 End: 07-17-2024 ambulatory Lex HERNANDEZ Facility:[facility] Start: 07-13-2024 End: 07-14-2024 [facility]: 07-12-[facility]24 End: 07-13-[facility]24 [facility]: 07-08-[facility]24 End: 07-11-2024 [facility] Start: 07-04-2024 End: 07-04-2024 Departed Referred Lex [place] - [address] Start: 07-04-2024 Registered Referred Lex [place] - [address] Start: 07-04-2024 End: 07-04-2024 ambulatory Lex HERNANDEZ Facility:[facility] Start: 07-03-2024 End: 07-04-2024 [facility] Start: 06-23-2024 End: 06-23-2024 Departed Referred Lex Trujillo [facility] - [address] Start: 06-23-2024 End: 06-23-2024 ambulatory Lex Chanelle MARY Facility:[facility] Start: 05-03-2024 ambulatory Lex Roca MARY Facil ity:[facility] Start: 05-03-2024 Registered Referred Lex stein [facility] - [address] Start: 04-26-2024 ambulatory Lex Roca MARY Facil ity:[facility] Start: 04-26-2024 Registered Referred Lex stein [place] - [address] Start: 04-24-2024 ambulatory Lex Valdezer MARY Facil ity:[facility] Start: 04-24-2024 Registered Referred Lex Vargas - [address] Start: 04-19-2024 End: 04-19-2024 Departed Referred Lex Vargas - [address] Start: 04-19-2024 End: 04-19-2024 ambulatory Lex HERNANDEZ Facility:[facility] Start: 04-10-2024 End: 04-10-2024 Departed Referred Lxe Vargas - [address] Start: 04-10-2024 End: 04-10-2024 ambulatory Lex HERNANDEZ Facility:[facility] Start: 03-27-2024 End: 03-27-2024 ambulatory Lex HERNANDEZ Facility:[facility] Start: 03-16-2024 ambulatory Lex HERNANDEZ Facil ity:[facility] Start: 03-09-2024 End: 03-09-2024 ambulatory Lex HERNANDEZ Facility:[facility] Start: 03-02-2024 End: 03-02-2024 ambulatory Lex HERNANDEZ Facility:[facility] Start: 02-23-2024 End: 02-23-2024 ambulatory Lex HERNANDEZ Facility:[facility] Start: 02-10-2024 End: 02-10-2024 ambulatory Lex HERNANDEZ Facility:[facility] Start: 01-18-2024 End: 01-18-2024 ambulatory Lex HERNANDEZ Facility:[facility] Start: 12-03-2023 End: 12-03-2023 ambulatory Lex HERNANDEZ Facility:[facility] Start: 09-08-2023 End: 09-08-2023 Subsequent hospital visit by physician Lex Roca MD Work Phone: [facility] Comment on above: Encounter for screen ing mammogram for malignant neoplasm of breast Start: 09-07-2023 End: 09-07-2023 Emergency department patient visit Debora Paulson DO Work Phone: [facility] ED Comment on above: Shortness of breath (Primary Dx); Chronic kidney disease, unspecified CKD stage; Asymptomatic hypertension Start: 05-10-2023 Transcribe Orders Lex hargrove Work Phone: [facility] Scheduling Comment on above: Encounter for screen ing mammogram for malignant neoplasm of breast (Primary Dx) Start: 02-13-2023 End: 02-13-2023 ambulatory [facility] Work Phone: Start: 02-13-2023 End: 02-13-2023 Departed Referred [facility] - [address] Start: 02-13-2023 Registered Referred [facility] - [address] Start: 02-05-2023 End: 02-05-2023 ambulatory [facility] Work Phone: Start: 02-05-2023 End: 02-05-2023 Departed Referred [facility] - [address] Start: 12-11-2022 End: 12-11-2022 Subsequent hospital visit by physician Micheal Arnold MD Work Phone: [address] [facility] Comment on above: Abdominal pain, left lower quadrant (Primary Dx) Start: 11-25-2022 End: 11-25-2022 ambulatory [facility] Work Phone: Start: 11-25-2022 End: 11-25-2022 Departed Referred [facility] - [address] Start: 11-25-2022 Registered Referred [facility] - [address] Start: 11-12-2022 End: 11-12-2022 Office outpatient new 60 minutes Micheal Arnold MD Work Phone: [facility] Comment on above: Abdominal pain, left lower quadrant (Primary Dx); Nausea and vomiting, unspecified vomiting type Start: 11-05-2022 End: 11-05-2022 ambulatory [facility] Work Phone: Start: 11-05-2022 End: 11-05-2022 Departed Referred [facility] - [address] Start: 10-09-2022 End: 10-09-2022 ambulatory [facility] Work Phone: Start: 10-09-2022 End: 10-09-2022 Departed Referred [facility] - [address] Start: 10-09-[address] [facility] - [address] Start: 08-28-2022 End: 08-28-2022 ambulatory [facility] Work Phone: Start: 08-28-2022 End: 08-28-2022 Departed Referred [facility] - [address] Start: 07-16-2022 End: 07-16-2022 ambulatory [facility] Work Phone: Start: 07-16-2022 End: 07-16-2022 Departed Referred [facility] - [address] Start: 06-04-2022 End: 06-04-2022 ambulatory [facility] Work Phone: Start: 06-04-2022 End: 06-04-2022 Departed Referred [facility] - [address] Start: 05-21-2022 End: 05-21-2022 Subsequent hospital visit by physician Lex Roca Work Phone: [facility] Comment on above: Encounter for screen ing mammogram for malignant neoplasm of breast Start: 03-09-2022 End: 03-09-2022 ambulatory [facility] Work Phone: Start: 03-09-2022 End: 03-09-2022 Departed Referred [facility] [place] - [address] Start: 12-04-2021 End: 12-04-2021 ambulatory [facility] Work Phone: Start: 12-04-2021 End: 12-04-2021 Departed Referred [facility] - [address] Start: 10-20-2021 End: 10-20-2021 Departed Referred [facility] - [address] Start: 08-11-2021 End: 08-11-2021 Departed Referred [facility] - [address] Start: 05-20-2021 End: 05-20-2021 Subsequent hospital visit by physician Lex Roca MD Work Phone: [facility] Comment on above: Arrived Start: 05-05-2021 End: 05-05-2021 Dep[facility]ed [facility] [facility] [address] Start: 08-12-2018 End: 08-12-2018 Patient encounter procedure JERAMY JOHNSON [facility] Start: 08-09-2018 End: 08-09-2018 Patient encounter procedure HANANE MOODY [facility] Start: 07-17-2018 End: 07-18-2018 Patient encounter procedure Kristel Nunes [facility] Start: 06-27-2018 End: 06-27-2018 Emergency department patient visit IM[facility] Facility:[facility] Start: 06-25-2018 End: 06-25-2018 Patient encounter procedure KRUPA STEINBERG [facility] Start: 05-06-2018 End: 05-07-2018 Patient encounter procedure CORY LA [facility] Start: 03-01-2018 End: 03-15-2018 Evaluation and management of inpatient [facility]CA Facility:[facility] Procedures Date Procedure Procedure Detail Performing Clinician Start: 08-16-2024 Urine culture Lex Smiley Start: 08-16-2024 Urnls dip stick/tabl et reagent auto microscopy Lex HERNANDEZ Start: 07-19-2024 Urine culture Lex Francis [facility] Start: 07-19-2024 Parathyroid hormone measurement Lex HERNANDEZ [...] 09-07-2023 Assay of troponin quantitative Ravi Carney RADIOGRAPHER TECHNOLOGIST [employer] Work Phone: Start: 09-07-2023 Basic metabolic pane l calcium total Ravi Carney RADIOGRAPHER TECHNOLOGIST - [employer] Work Phone: Start: 09-07-2023 Radiologic exam ches t single view Ravi Carney RADIOGRAPHER TECHNOLOGIST [employer] Work Phone: Start: 09-07-2023 Ecg routine ecg w/le ast 12 lds trcg only w/o i&r Ravi Carney RADIOGRAPHER TECHNOLOGIST - [employer] Work Phone: Start: 02-13-2023 Urine culture Start: [...] 12-11-2032 Screening for malignant neoplasm of colon [facility] Start: 03-01-2028 DTaP/Tdap/Td vaccine (4 - Td or Tdap) DTaP/Tdap/Td vaccine (4 - Td or Tdap) [facility] Start: 03-01-2028 DTaP/Tdap/Td Vaccines (4 - Td or Tdap) DTaP/Tdap/Td Vaccines (4 - Td or Tdap) [facility] Start: 2026 Pneumococcal 0-64 years Vaccine (2 of 2 - PPSV23) Pneumococcal 0-64 years Vaccine (2 of 2 - PPSV23) [facility] Start: 2026 Pneumococcal Vaccine: Pediatrics (0 to 5 Years) and At-Risk Patients (6 to 64 Years) (3 - PPSV23 if available, else PCV20) Pneumococcal Vaccine: Pediatrics (0 to 5 Years) and At-Risk Patients (6 to 64 Years) (3 - PPSV23 if available, else PCV20) [facility] Start: 2026 Pneumococcal Vaccine: Pediatrics (0 to 5 Years) and At-Risk Patients (6 to 64 Years) (3 of 3 - PPSV23 or PCV20) Pneumococcal Vaccine: Pediatrics (0 to 5 Years) and At-Risk Patients (6 to 64 Years) (3 of 3 - PPSV23 or PCV20) [facility] Start: 07-12-2025 Glaucoma screening Diabetes: Retinopathy Screening [facility] Start: 09-07-2024 Screening for malignant neoplasm of breast Mammogram [facility] Start: 09-06-2024 Diabetes: Estimated Glomerular Filtration Rate for Kidney Health Diabetes: Estimated Glomerular Filtration Rate for Kidney Health [facility] Start: 06-04-2024 Glaucoma screening Diabetes: Retinopathy Screening [facility] Start: 11-21-2023 Influenza vaccination Influenza Vaccine (Season Ended) [facility] Start: 09-08-2023 End: 09-08-2023 Patient encounter procedure 09/08/2023 1:00 PM EDT Appointment [facility] [address] [place] [address] Lex Roca MD [address] [place] [address] [address] [place] [address] [facility] Start: 08-06-2023 Glaucoma screening Diabetes: Retinopathy Screening [facility] Start: 05-22-2023 Screening for malignant neoplasm of breast Mammogram [facility] Start: 05-10-2023 End: 07-08-2024 DBT Breast - bilateral screening Bilateral screening mammogram with tomosynthesis Imaging Routine Encounter for screening mammogram for malignant neoplasm of breast Expected: 05/10/2023, Expires: 07/08/2024 [facility] Work Phone: Comment on above: Expected: [...] Vaccine ( season) COVID-19 Vaccine ( season) [facility] Start: 11-20-2022 Influenza vaccination Influenza Vaccine (#1) [facility] Start: 2021 RSV Immunization aged 60 or older (1 - 1-dose 60+ series) RSV Immunization aged 60 or older (1 - 1-dose 60+ series) [facility] Start: 11-20-2021 Influenza vaccination Influenza Vaccine (#1) [facility] Start: 11-20-2020 Influenza vaccination Flu vaccine (#1) [facility] Start: 09-15-2020 COVID-19 Vaccine (3 - Booster for Pfizer series) COVID-19 Vaccine (3 - Booster for Pfizer series) [facility] Start: 06-12-2020 COVID-19 Vaccine (3 - Booster for Pfizer series) COVID-19 Vaccine (3 - Booster for Pfizer series) [facility] Start: 07-18-2019 Creatinine measurement Creatinine monitoring [facility] Start: 07-18-2019 Potassium monitoring Potassium monitoring [facility] Start: 07-17-2019 Hemoglobin A1c measurement A1C test (Diabetic or Prediabetic) [facility] Start: 12-16-2018 Screening for malignant neoplasm of breast Breast cancer screen [facility] Start: 12-08-2011 Shingles Vaccine (1 of 2) Shingles Vaccine (1 of 2) [facility] Start: 12-08-2011 Zoster Vaccines (1 of 2) Zoster Vaccines (1 of 2) [facility] Start: 2006 Screening for malignant neoplasm of colon [facility] Start: 12-08-1991 Screening for malignant neoplasm of cervix [facility] Start: 1982 Screening for malignant neoplasm of cervix Pap smear [facility] Start: 1980 Hepatitis B vaccine (1 of 3 - Risk 3-dose series) Hepatitis B vaccine (1 of 3 - Risk 3-dose series) [facility] Start: 1980 Urine screening for protein Diabetes: Urine Protein Screening [facility] Start: 12-08-1979 Diabetes: Estimated Glomerular Filtration Rate for Kidney Health Diabetes: Estimated Glomerular Filtration Rate for Kidney Health [facility] Start: 12-08-1979 Diabetes: Urine Albumin-Creatinine Ratio for Kidney Health Diabetes: Urine Albumin-Creatinine Ratio for Kidney Health [facility] Start: 12-08-1979 Diabetic retinal exam Diabetic retinal exam [facility] Start: 12-08-1979 Hepatitis C screening Hepatitis C Screening [facility] Start: 12-08-1979 Urine screening for protein Diabetic microalbuminuria test [facility] Start: 1976 HIV screening HIV screen [facility] Start: 1973 Depression Screen Depression Screen [facility] Start: 1973 Depression Screening Depression Screening [facility] Start: 12-08-1971 Diabetic foot examination [facility] Start: 12-08-1971 Lipid panel Lipid screen [facility] Start: 12-08-1971 Preventive dental service Diabetes: Dental Exam [facility] Start: 1962 MMR Vaccines (1 of 1 - Standard series) MMR Vaccines (1 of 1 - Standard series) [facility] Start: 1961 Hemoglobin A1c measurement Diabetes: Hemoglobin A1C [facility] Start: 1961 Hepatitis B Vaccines (1 of 3 - 3-dose series) Hepatitis B Vaccines (1 of 3 - 3-dose series) [facility] Start: 1961 Hepatitis C screening Hepatitis C screen [facility] Start: 1961 HIV screening HIV Screening [facility] Start: 1961 Lipid panel Lipid Panel [facility] Start: 1961 Screening for malignant neoplasm of colon [facility] Start: 1961 Thyroid stimulating hormone measurement TSH Level [facility] Immunizations Immunization Date Immunization Notes Care Provider Fa danny 04-17-2020 Pfizer SARS-CoV-2 Vaccination Lex Roca Work Phone: [facility] 03-27-2020 Pfizer SARS-CoV-2 Vaccination Lex Roca Work Phone: [facility] 12-21-2017 tetanus toxoid, redu yohana diphtheria toxoid, and acellular pertussis vaccine, adsorbed Lex Roca MD Work Phone: [facility] 12-12-2017 Influenza, Quadv, 6 mo and older, IM, PF (Flulaval, Fluarix) Lex Roca MD Work Phone: [facility] 12-12-2017 influenza virus vacc ine, unspecified formulation Lex Roca Work Phone: [facility] 10-23-2017 tetanus toxoid, redu yohana diphtheria toxoid, and acellular pertussis vaccine, adsorbed Lex Roca MD Work Phone: [facility] Payers Date Payer Category Payer Self-pay [id number] 2018 [place] [id number] 2018-Present [address] [place] [address] Medicaid [id number] 1961 Unknown [id number] [id number]8 1961 Unknown [id number] 2.16.840.1.522491.3.579.2.278 1961 Unknown [id number] 2.16.840.1.196489.3.579.2.668 1961 Unknown [id number] 2.16.840.1.453355.3.579.2.598 1961 Unknown [id number] 2.16.840.1.629687.3.579.2.598 1961 Unknown [id number] 2.16.840.1.886183.3.579.2.598 1961 Unknown [id number] 2.16.840.1.576088.3.579.2.598 1958 Medicaid [id number] Unknown Unknown [id number] 2.16.840.1.226941.3.579.2.462 Unknown [id number] 2..840.1.460302.3.579.2.462 Unknown [id number] 2..840.1.375495.3.579.2.462 Unknown [id number] 2..840.1.100607.3.579.2.462 Unknown [id number] 2.840.1.538119.3.579.2.462 Unknown [id number] 2.840.1.109806.3.579.2.462 Unknown [id number] 2.840.1.489905.3.579.2.462 Unknown [id number] 2.16.840.1.964241.3.579.2.462 Unknown [id number] 2.16.840.1.692796.3.579.2.462 Unknown [id number] 2..840.1.704754.3.579.2.462 Unknown [id number] 2.16.840.1.104057.3.579.2.462 Unknown [id number] 2.16.840.1.177744.3.579.2.462 Unknown [id number] 2.16.840.1.946680.3.579.2.462 Unknown [id number] 2.16.840.1.518005.3.579.2.462 Unknown [id number] 2.16840.1.336233.3.579.2.462 Unknown [id number] 2.16.840.1.483004.3.579.2.462 Unknown [id number] 2.16.840.1.513534.3.579.2.462 Unknown [id number] 2.16.840.1.164276.3.579.2.462 Unknown [id number] 2.16.840.1.693094.3.579.2.462 Unknown [id number] 2.16.840.1.340672.3.579.2.462 Social History Date Type Detail Facility Start: 09-20-2017 Tobacco smoking stat [facility] Ex-smoker [employer] Work Phone: Start: 09-20-2017 Tobacco use and exposure Smokeless tobacco non-user [employer] Phone: Start: 07-18-2018 End: 05-21-2022 Alcohol intake Current non-drinker of alcohol (finding) [employer] Work Phone: Start: 1960 Sex Assigned At Not on file [employer] Work Phone: Start: 1960 Sex Assigned At Female [facility] History of tobacco use Current smoker [facility] Start: 05-21-2022 End: 12-11-2022 History of Social function [facility] [email or web address] Start: 05-21-2022 End: 12-11-2022 Tobacco use panel [facility] Start: 05-11-2022 End: 12-11-2022 Exposure to SARS-CoV-2 (event) Not sure [facility] [email or web address] How often to you hav e a drink containing alcohol? Never [facility] How many standard drinks containing alcohol do you have on a typical day? Patient does not drink [facility] [email or web address] Tobacco smoking stat [facility] Unknown if ever smoked [facility] Work Phone: Clinical Notes 11-12-2022 to 11-14-2024 Bethanie Villalobos RN - 09/07/2023 11:43 PM Anjali Villalobos RN - 09/07/2023 11:43 PM Anjali Villalobos RN - 09/07/2023 11:42 PM Anjali Villalobos, SUNDEEP - 09/07/2023 7:15 PM EDTDischarge Instructions Note Date & Type Note Facility 11-14-2024 Note Diet education (Unco ntrolled diabetes) consult acknowledged. Patient initially ordered a Regular diet upon admission. Changed to 5 CHO this am. Per MNT protocol, changed to 4 Carb Choices (60 gm/meal). Diet education is not appropriate. Patient with developmental delays. Resides at SNF where meals are provided, and diets are ordered per RD recommendations. Will continue to monitor BG throughout admission, and need for further diet adjustments. Monica Felix RD Contact #: *[phone] [facility] 11-14-2024 Note Patient seen and exa mined independently Discussed with COLE regarding plan of care See detailed COLE notes from today Admitted following chest pain No cough, sputum, fever, chills Blood pressure today 132/81, saturation 97% on room air No fever spike noted Blood glucose on admission greater than 450 Accu-Chek during hospitalization stay reviewed A1c 9 ,EKG reviewed showed sinus rhythm, no acute changes Troponin negative Renal ultrasonogram no evidence of hydronephrosis Chest x-ray negative for acute process Echo showed EF of 60%, grade 1 diastolic dysfunction, normal wall motion. Assessment Atypical chest pain, troponin negative Acute kidney injury on chronic kidney disease stage III Hyperkalemia admission resolved NAGMA DM with hyperglycemia, A1c 9 Anemia Left lower extremity cellulitis, improving Hypertension Plan BMP panel to be followed as an outpatient Continue Lantus 60 units, scheduled Humalog 10 units 3 times a day, Trulicity weekly wants to be continued Accu-Cheks to be monitored Change diet to ADA 1800 diet Continue Keflex as ordered Patient plan for discharge back to facility today Discussed with COLE regarding plan of care [facility] 11-14-2024 Note Discharge Summary Cinthya Castillo : 1960 ADMIT DATE: 11/11/2024 DISCHARGE DATE: 11/14/2024 PRIMARY CARE PHYSICIAN: Lex Roca VISIT STATUS: Observation CODE STATUS: Full Code DISCHARGE DIAGNOSES: Principal Problem: Hyperglycemia HOSPITAL COURSE: Cinthya is a 63 y.o. female with a PMH of anxiety, asthma, COPD, depression, developmental delat, DM, HLD, HTN, STEFANI, CKD stage 3b, dementia that presented to the ED on 11/11/24 from [facility] for hyperglycemia with BS elevated in the 500's. In the ED she complaints of chest pain and SOB. Chest pain was mid sternal, sharp, and occurred at rest. In the ED, pt was afebrile, hypertensive (186/80), HR 99, K 5.8,BUN 70, creatinine 3.00, Glucose 523, Ca 7.5, troponin negative, WBC 11.7, H/H 10.1/30.1, BHB 0.6, UA not concerning for infection, Chest xray no acute process. EKG SR no ST-T wave abnormalities, rate 85, qtc 427. Pt was admitted to medicine for further evaluation and mgt. Pt was noted to have erythema, warmth, and wound to left caldwell. She was placed on ancef and transitioned to Keflex for treatment of cellulitis. WBC down trended to 11.5. She was started on lispro TID with meals in addition to her home trulicity and lantus with improvement in her blood sugars. Her troponin's were negative, US BLE was negative for DVT. Echo showed Left Ventricle: Not well visualized. Left ventricle size is normal. Mildly increased wall thickness. Normal left ventricular systolic function. The EF by visual approximation is 60%. Normal wall motion. Grade I diastolic dysfunction with normal LAP. Normal left ventricular filling pressure. Right Ventricle: Right ventricle size is normal. Normal systolic function. No significant valvular abnormalities. Her creatinine improved to 2.26 (near baseline 2.1-2.2). Renal US was unremarkable. She was tolerating po intake. Pt remained afebrile, HDS. No further episodes of chest pain or SOB. Pt was medically optimized and discharged back to [facility]. SIGNIFICANT DIAGNOSTIC STUDIES: Chest xray: Reason For Exam: CHEST PAIN; Chest Pain CHEST PORTABLE CLINICAL INDICATION: CHEST PAIN TECHNIQUE: Portable chest x-ray(s). COMPARISON: September,. FINDINGS: Cardiac silhouette prominent or mildly enlarged, which may be due in part to technique, but stable. Lungs again show bibasilar interstitial prominence and coarsening, about the same. No significant vascular congestion. No apparent pneumothorax. Bony thorax grossly unremarkable. IMPRESSION: 1. Stable examination. No acute findings. Report Dictated on Electronically Signed By: Pancho Wyatt MD Electronically Signed Date/Time: 11/12/2024 1:52 AM EDT Renal US: Exam Date/Time: 11/12/2024 20:02 Procedure: US RETROPERITONEUM LIMITED Ordering Provider: HARDY GEORGE Reason For Exam: RONNI BILATERAL CAROTID ULTRASOUND: EXAM DATE AND TIME: 11/12/2024 8:02 PM EDT US RETROPERITONEAL COMPLETE CLINICAL INDICATION: Acute kidney injury TECHNIQUE: Complete ultrasound of the retroperitoneal structures. COMPARISON: None FINDINGS: Limitations: Body habitus limits evaluation. RIGHT KIDNEY: Size: 12 x 6.1 x 5.9 cm Echogenicity: normal. Parenchymal thickness: normal Contour: smooth Pelvicalyceal dilatation: none Calculus: none Mass: none Cyst: none LEFT KIDNEY: Size: 11.9 x 6.9 x 7 cm Echogenicity: normal. Lateral linear echogenic lines within the medullary may represent catheter or vascular shadow. Parenchymal thickness: normal Contour: smooth Pelvicalyceal dilatation: none Calculus: none Mass: none Cyst: none Bladder: The urinary bladder is incompletely distended. IMPRESSION: Normal complete ultrasound of retroperitoneum. Report Dictated on Electronically Signed By: Jb Mckeon DO Electronically Signed Date/Time: 11/13/2024 8:23 AM EDT Vascular US BLE: Right Lower Venous No evidence of deep vein or superficial vein thrombosis. The common femoral, saphenofemoral junction, femoral, popliteal, gastrocnemius, soleal, greater saphenous, posterior tibial, and peroneal veins were imaged in the transverse view and showed normal compressibility. The common femoral, middle femoral, and popliteal veins were imaged in the longitudinal view and showed normal color filling and normal phasic and spontaneous flow. Right great saphenous vein visualized in segments. Left Lower Venous No evidence of deep vein and superficial thrombosis in the left lower extremity. Common Femoral Vein: Patent, normal phasicity, spontaneous, normal augmentation, compressible. Saphenofemoral Junction: Patent, compressible. Proximal Femoral Vein: Patent, compressible. Middle Femoral Vein: Patent, spontaneous and normal phasicity. Distal Femoral Vein: Patent and spontaneous. Popliteal Vein: Patent, normal phasicity, spontaneous, norm (more content not included)... [facility] 11-13-2024 Note PHYSICAL THERAPY [facility] Initial Evaluation Name/MRN: Cinthya Castillo ([id number]) Evaluation Date: 11/13/2024 Date of : 1960 Admission Date: 11/11/2024 11:54 PM Age: 63 y.o. Room/Bed: E5-501/E5-501 A Discharge Recommendation: Residential Facility Equipment Needed: No Assessment IMPRESSION: Pt was admitted with hyperglycemia. She is a resident at [facility]. She requires assist with ADL's. She has had multiple hospital admissions since her CABG on September 27. She eats in her room, walks with therapy (1x/week) She has vascular stenosis, a left pleural effusion, general weakness, DM2, bladder dysfunction. Recommend return to SNF level upon discharge. Admitting Diagnosis: hyperglycemia Prognosis: good Performance Deficits /Impairments: Increased Pain, Decreased Functional Mobility, Decreased ADL status, Decreased Strength, Decreased Endurance, Decreased ROM, Decreased Cognition, Decreased Coordination, and Decreased Posture Decision Making: Medium Complexity Subjective Patient was in bed , willing to get up to the chair. She is bipolar. She giggles about every question I ask her. She is having difficulty with hearing, denies this though. She got up to the chair with mod assist, exercised in the chair. She was fatigued, states she likes the bed because it is comfortable. Asked her to stay up in the chair for an hour or so. She agreed. She is currently at SNF level for discharge. Pain: RN managing pain. Past Medical History: Medical History[1] Past Surgical History: Surgical History[2] Admission Diagnosis: Patient Active Problem List Diagnosis Date Noted Hyperglycemia 11/12/2024 Left leg cellulitis 07/08/2024 Shortness of breath [...] standards. Fall Risk: Kumar Fall Risk Score: 45 (Medium Risk) Kumar Fall Risk Score: 45 (High Risk) Precautions/Restrictions: Lines/Drains/Airways: gen weakness, bipolar. Fall Precautions Bipolar, inappropriate laughter. Family/Caregiver Present: none Overall Cognitive Status: WFL but questionable at times and has different answers to the same question. Overall Orientation Status: Oriented x4 Vision: No Visual Deficits Hearing: impaired Social/Functional History Patient admitted from SNF. Assistive Equipment: front wheeled walker and wheelchair - manual Prior Level of Function Prior Level of ADL Function: Required Assist Prior Level of Mobility: Required Assist; Device: Front wheeled walker and Wheelchair - manual Prior Level of Transfers: Required Assist Objective Lower Extremity Assessment AROM: Impaired: demos 50% of range through functional mobility PROM: Strength: Exceptions: 4-/5 in available range Sensation: DM with neuropathy Balance: Balance During Session: Posture: fair Sitting - Static: Modified Independent Sitting - Dynamic: Modified Independent Standing - Static: Min Assist Standing - Dynamic: Min Assist Bed Mobility: Supine to sit: Mod Assist Sit to supine: Min Assist, poor eccentric control Transfers Sit to stand: Min Assist Stand to sit: Min Assist Ambulation Ambulation 1 Assistive device(s) used: Used therapist for support Assist level: Min Assist Distance (ft): 10' Quality of gait: reciprocal stepping, wide MIRANDA, slow davidson Coordination: Bradykinesia and Hypometria Exercises Heelslides: x10 Hip Flexion: x12 Hip Extension/Leg Presses: x12 Hip Abduction: x12 Hip Adduction: x12 Knee Long Arc Quad: x12 with encouragement to go slowly, not real fast Ankle Pumps: x 25 Upper Extremity: punching out in front of her, across her chest, up above head , shoulder shrugs, and chicken arms x 12 each Comments: Pt laughs at all exercises, an inappropriate laughter. Outcome Measures AM-PAC How much HELP from another person do you currently need Turning from your back to your side while in a flat bed without using bedrails?: None Moving from lying on your back to sitting on the side of a flat bed without using bedrails?: A Lot Moving to and from a bed to a chair (including a wheelchair)?: A Little Standing up from a chair using your arms (wheelchair or bedside chair)?: A Little Walking in a hospital room?: A Little Stair climbing assessed?: No AM-PAC Inpatient Mobility Raw Score (No Stairs) : 15 JH-HLM JH-HLM Score: Transferred to chair/co (more content not included)... [facility] 11-13-2024 Note Referral placed to [facility] Return - [facility] via [facility] per TCC request. Await review and response regarding ability to accept. TCC notified. Electronically signed by [facility] Gera Dewitt [facility] 11-13-2024 Note Care Management Prog ress Note Short Medical why still here: New pt. Glucose 523 on admission. RONNI, better this morning. UA positive. IV fluids. Echo,US, and BLE duplex ordered, pending. Planned Discharge Disposition: Long Term/Residential Care. Pt is from [facility]. Pt has legal guardian. TCC spoke to legal guardian via phone call. Legal guardian is agreeable for pt to return to [facility] LT. TCC tasked [facility] to make return referral to [facility]. TCC will follow for LTC response. Barriers/Today we still Wait: Clinical stability, Administering IV medications, [facility] Partner recommendations (comment), Patient/caregiver facility choice Length of Stay (Days): 1 GMLOS: No GMLOS Documented [facility] 11-13-2024 Note Hospitalist Progress Note 11/13/2024 Subjective: Admit Date: 11/11/2024 PCP: Lex Roca MD Room#: E5-501/E5-501 A BRIEF HOSPITAL COURSE: Cinthya is a 63 y.o. female with a PMH of anxiety, asthma, COPD, depression, developmental delat, DM, HLD, HTN, STEFANI, CKD stage 3b, dementia that presented to the ED on 11/11/24 from [facility] for hyperglycemia with BS elevated in the 500's. In the ED she complaints of chest pain and SOB. Chest pain was mid sternal, sharp, and occurred at rest. In the ED, pt was afebrile, hypertensive (186/80), HR 99, K 5.8,BUN 70, creatinine 3.00, Glucose 523, Ca 7.5, troponin negative, WBC 11.7, H/H 10.1/30.1, BHB 0.6, UA not concerning for infection, Chest xray no acute process. EKG SR no ST-T wave abnormalities, rate 85, qtc 427. Pt was admitted to medicine for further evaluation and mgt. Interval History: Pt seen lying in bed, NAD. Noted to have redness, warmth and scabbed wounds to left caldwell. Swelling. Denies calf pain. US negative for DVT BLE. No overnight issues. Case and plan discussed with patient and bedside nurse. All questions answered. Adult diet Regular 24HR INTAKE/OUTPUT: Intake/Output Summary (Last 24 hours) at 11/13/2024 0750 Last data filed at 11/13/2024 0452 Gross per 24 hour Intake 2063.33 ml Output -- Net 2063.33 ml Past Medical History: Medical History[1] LABS: CBC: Recent Labs 11/12/24 0008 11/13/24 0634 WBC 11.7* 12.9* RBC 3.43* 3.42* HGB 10.1* 9.9* HCT 30.1* 30.6* MCV 87.8 89.5 RDW 13.8 13.9 PLT 323 298 BMP: Recent Labs 11/12/24 0315 11/12/24 1134 11/13/24 0523 NA 136 140 140 K 5.8* 5.1 5.0 CL 115* 116* 117* CO2 16* 18* 19* BUN 70* 67* 51* CREATININE 2.82* 2.62* 2.37* GLUCOSE 410* 156* 119* CALCIUM 7.4* 7.7* 7.7* ANIONGAP 5 6 4 LIVER PROFILE: Recent Labs 11/12/24 0008 AST 27 ALT 10 BILITOT 0.2 ALKPHOS 58 PROT 6.1* PT/INR: No results for input(s): "PROTIME", "INR" in the last 72 hours. CARDIAC ENZYMES: No results for input(s): "TROPONINI" in the last 72 hours. Procalcitonin: No results found for: "PROCAL" COVID-19 PCR: No results for input(s): "COVID19" in the last 72 hours. Objective: Vitals: BP 146/68 (BP Location: Right arm, Patient Position: Sitting) Pulse 82 Temp 36.3 ?C (97.3 ?F) (Temporal) Resp 17 Ht 5' 6" (1.676 m) Wt (!) 326 lb 6.4 oz (148 kg) SpO2 97% BMI 52.68 kg/m? Pulse Ox: SpO2 Av % Min: 95 % Max: 98 % Supplemental O2: Physical Exam Constitutional: General: She is not in acute distress. Appearance: She is obese. Cardiovascular: Rate and Rhythm: Normal rate and regular rhythm. Pulmonary: Effort: Pulmonary effort is normal. Breath sounds: Normal breath sounds. Musculoskeletal: General: Swelling present. Skin: General: Skin is warm. Comments: Erythema, swelling and warmth to LLE Multiple scabbed wounds to left caldwell Neurological: Mental Status: She is alert. Mental status is at baseline. Medications: Scheduled PRN Scheduled Meds[2] PRN Meds[3] Continuous Continuous Meds[4] Assessment Data: (CAT1) Reviewed 3 or more labs/studies ordered by another provider not previously counted (each=1, panels count as 1). (CAT1) Ordered 3 or more new labs and/or studies (each=1, panels count as 1). (LOW: 2x CAT1 or independent historian MOD: 3x CAT1 or 1x CAT3 EXTENSIVE: 3x CAT1 and 1x CAT3) Acute, acute on chronic, unstable/uncontrolled chronic problems/diagnoses: T2DM, poorly controlled with hyperglycemia - Not in DKA - A1c 9.0 (11/12/24) RONNI on CKD stage 3b - baseline creatinine around 2.0-2.1 NAGMA Hyperkalemia LLE cellulitis Leukocytosis Chest pain - resolved Stable chronic problems affecting care, new non-acute diagnoses: COPD - not in acute exacerbation Developmental delay HLD HTN Hypothyroidism Obesity class III - BMI 52.68 STEFANI Plan As a result of the above findings & factors, the following mgmt was pursued: - Ancef IV every 8 hours - Accuchecks AC/HS, lantus 60 units at bedtime, humalog 10 units TID with meals, low dose SSI with meals/bedtime - IVF - renal US -> - echo pending -> - daily BMP and CBC to trend renal function, WBC - am labs, replace lytes prn - PT/OT/CM/SW - delirium precautions: increase activity and limit nighttime disturbances - DVT prophylaxis: enoxaparin and encourage ambulation Advance Directive: Full Code Anticipated Discharge - Date - 11/15/24 - Location - Skilled Facility - Pending the following - Above clinical course Total time spent (which include face to face and non face to face encounters) : 50 minutes Toxic drug monitoring/narrow therapeutic index drug monitoring : # Drug name : Lantus, lispro # Route administered : SQ # Method of monitoring : Accuchecks Extended Emergency Contact Information Primary Emergency Contact: GAIL KELLER Mobile Relation: Legal Guardian Ivan (more content not included)... [facility] 11-12-2024 Note Family Communication Number Called: [phone] Name of Designated Family Public Health Dietitian: GAIL (legal guardian) Family Public Health Dietitian Updated on the Following: Plan of care and current patient condition [facility] 11-12-2024 Note Attending History an d Physical Admit Date: 11/11/2024 PCP: Lex Roca MD Chief Complaint Patient presents with Hyperglycemia Reason for Admission: RONNI, hyperkalemia, hyperglycemia History Obtained From: patient HISTORY OF PRESENT ILLNESS: Cinthya is a 63 y.o. female with past medical history below who presents with chest pain. Symptoms started acutely. Described as sharp and in the center of chest. Not associated with any activity. Patient called 911 on her own and was taken to ED for further evaluation. In the ED, vitals signs are as follows: temp 98.2 degrees F, HR 99, RR 16, BP 186/80, oxygen sat 93%RA. Pertinent labs: initial glucose in ED was 555 (patient reports taking her insulin as directed) K+ 5.8, Cr 3.0 (CKD stage 3 at baseline), cycled high sensitivity troponin x 3 normal. CXR was normal. Will admit for further evaluation and management. Past Medical History: Past Medical History: Diagnosis Date Anxiety disorder, unspecified Asthma COPD (chronic obstructive pulmonary disease) (HCC) Depression, unspecified Developmental delay Diabetes mellitus (HCC) Diverticulosis Hiatal hernia Hyperlipidemia, unspecified Hypertension Hypothyroidism, unspecified Lack of coordination Muscle weakness (generalized) STEFANI (obstructive sleep apnea) Stage 3b chronic kidney disease (CKD) (HCC) Type 2 diabetes mellitus with diabetic chronic kidney disease (HCC) Type II diabetes mellitus with nephropathy (HCC) SNF papers Unilateral primary osteoarthritis, left knee Unspecified dementia, unspecified severity, with other behavioral disturbance (HCC) Venous insufficiency (chronic) (peripheral) Past Surgical History: Past Surgical History: Procedure Laterality Date ANKLE SURGERY COLONOSCOPY N/A 12/11/2022 Performed by Micheal Silva MD at [facility] [address] Social History: Social History Socioeconomic [...] Resource Strain: Not on file Food Insecurity: No Food Insecurity (11/12/2024) Hunger Vital Sign Worried About Running Out of Food in the Last Year: Never true Ran Out of Food in the Last Year: Never true Transportation Needs: No Transportation Needs (11/12/2024) PRAPARE - Transportation Lack of Transportation (Medical): No Lack of Transportation (Non-Medical): No Physical Activity: Not on file Stress: Not on file Social Connections: Not on file Intimate Partner Violence: Not At Risk (11/12/2024) Humiliation, Afraid, Rape, and Kick questionnaire Fear of Current or Ex-Partner: No Emotionally Abused: No Physically Abused: No Sexually Abused: No Housing Stability: Low Risk (11/12/2024) Housing Stability Vital Sign Unable to Pay for Housing in the Last Year: No Number of Times Moved in the Last Year: 0 Homeless in the Last Year: No Family History: Family History Problem Relation Name Age of Onset No Known Problems Father No Known Problems Mother Medications Reconciliation: Medication were reviewed and verified as accurate with patient. Allergies: Allergies Allergen Reactions Penicillins Unknown unsure Pt unaware of reaction. Tolerated cephalexin 02/2018 REVIEW OF SYSTEMS: 10 point ROS obtained, as per HPI, otherwise NEG Vitals: BP (!) 168/89 (BP Location: Left arm, Patient Position: Sitting) Pulse 82 Temp 36.6 ?C (97.9 ?F) (Temporal) Resp 18 Ht 5' 6" (1.676 m) Wt (!) 310 lb (141 kg) SpO2 98% BMI 50.04 kg/m? BMI Classification: Morbidly Obese (>40.0) Pulse Ox: SpO2 Av.9 % Min: 93 % Max: 99 % Supplemental O2: PHYSICAL EXAM: Physical Exam Cardiovascular: Rate and Rhythm: Normal rate. Pulses: Normal pulses. Pulmonary: Effort: Pulmonary effort is normal. Abdominal: Palpations: Abdomen is soft. Musculoskeletal: Right lower leg: Edema present. Left lower leg: Edema present. Skin: Findings: Erythema present. Comments: Mild erythema noted LLE DATA: CBC: Recent Labs 11/12/24 000 WBC 11.7* RBC 3.43* HGB 10.1* HCT 30.1* MCV 87.8 RDW 13.8 PLT 323 BMP: Recent Labs 11/12/248 11/12/24 0315 NA 136 136 K 5.8* 5.8* CL 112* 115* CO2 16* 16* BUN 74* 70* CREATININE 3.00* 2.82* GLUCOSE 523* 410* CALCIUM 7.5* 7.4* ANIONGAP 8 5 LIVER PROFILE: Recent Labs 11/12/247 AST 27 ALT 10 BILITOT 0.2 ALKPHOS 58 PROT 6.1* PT/INR: No results for input(s): "PROTIME", "INR" in the last 72 hours. CAR (more content not included)... [facility] 07-11-2024 Note Referral placed to moy walton back to [facility] request. Await review and response regarding ability to accept. TCC notified. [facility] 07-11-2024 Note Discharge Summary Cinthya Castillo [...] transitioned to oral antibiotics and discharged to [facility]. SIGNIFICANT DIAGNOSTIC STUDIES: none CONSULTANTS: Wound Care [...] gross lesions, rashes LABS: CBC: Recent Labs 07/09/24 0131 07/10/24 0538 07/11/24 0311 WBC 7.8 8.5 8.9 RBC 3.87 4.00 3.91 HGB 11.4* 11.4* 11.3* HCT 34.9* 37.2 35.9 MCV 90.2 93.0 91.8 RDW 13.4 12.9 12.7 PLT 376 258 277 BMP: Recent Labs 07/09/24 0159 07/10/24 0538 07/11/24 0311 NA 142 142 140 K 4.6 4.8 4.2 CL 112* 114* 112* CO2 22* 20* 20* BUN 58* 54* 48* CREATININE 2.37* 2.13* 2.12* GLUCOSE 227* 150* 120* CALCIUM 8.4* 8.4* 8.5* ANIONGAP 8 8 8 LIVER PROFILE: Recent Labs 07/08/24201107/09/24 0159 07/11/24 0311 AST 23 20 19 ALT 18 11 [...] Your Medications These medications were sent to [facility] [address] [place] [id number] Hours: Wednesday to Wednesday 10 am to [...] Complexity: follow up within 7-14 calendar days (32382) [] Severe Complexity: follow up within 7 calendar days (31618) FOLLOW UP TESTING, PENDING RESULTS OR REFERRALS AT TRANSITIONAL CARE VISIT: [] Yes [] No PENDING STUDIES: No DISPOSITION: [facility] FACILITY/HOME CARE AGENCY NAME: Mira Vargas Follow up with [facility] [address] [address] INSTRUCTIONS TO MA/SW: Please call patient on day after discharge (must document patient contacted within 2 business days of discharge). FOLLOW UP QUESTIONS FOR MA/SW: 1. Did you get medications filled an (more content not included)... [facility] 07-11-2024 Note Problem: Potential f or Compromised Skin Integrity Goal: Skin Integrity is Maintained or Improved Outcome: Progressing [facility] 07-10-2024 Note PHYSICAL THERAPY [facility] Initial Evaluation Name/MRN: Cinthya Castillo ([id number]) Evaluation Date: 07/10/2024 Date of : 1960 Admission Date: 07/08/2024 7:50 PM Age: 63 y.o. Room[facility]Bed: [facility] A Discharge Recommendation: ECF with PT [...] 12/11/2022 Performed by Micheal Silva MD at [facility] [address] Admission Diagnosis: Patient Active Problem List Diagnosis Date Noted Left leg cellulitis 07/08/2024 Shortness of breath 09/07/2023 Chronic kidney disease 09/07/2023 Lightheadedness 07/18/2018 Abdominal pain, left lower quadrant 07/18/2018 Hypertension 07/17/2018 Type 2 diabetes mellitus with hyperglycemia, without long-term current use of insulin ([facility]) 07/17/2018 Nausea & vomiting 07/17/2018 Diabetes mellitus type 2 in obese ([facility]) 12/19/2017 Hypoglycemia 12/19/2017 Neuropathy 12/19/2017 Intertrigo 12/19/2017 CAD (coronary artery disease) 12/19/2017 Generalized weakness 12/10/2017 Acute renal injury ([facility]) 12/10/2017 Medical Precautions: No active isolations Proper [...] Hearing: normal Social/Functional History Patient admitted from [facility]. Assistive Equipment: front wheeled walker Prior Level [...] supine: SBA Pt completes bed mobility at A with HOB elevated and use of bed [...] Training, Pain Managemen (more content not included)... [facility] 07-10-2024 Note Hospitalist Progress Note 07/10/2024 Subjective: Admit Date: 07/08/2024 PCP: Lex Roca MD Room#: H4-304/M1-098 A Interval History: She is weak. Tolerating [...] IV and subc (more content not included)... [facility] 07-10-2024 Note Pharmacy to Dose Van comycin - Progress Note Recent Labs 07/08/24201107/09/24 0159 07/10/24 0538 BUN 59* 58* 54* CREATININE 2.59* 2.37* 2.13* Lab Results Component Value Date [facility] 20.3 07/10/2024 Doses, serum creatinine, and vancomycin levels interfaced automatically to [employer] and data has been analyzed and interpreted. [...] Desir, PharmD Clinical Pharmacist Available via Secure Chat [facility] 07-09-2024 Note Attending History an d [...] 12/11/2022 Performed by Micheal Silva MD at [address] ENDOSCOPY Social History: Social History Socioeconomic [...] and flank pain. (more content not included)... [facility] 09-07-2023 Emergency department Note Discharge paperwork completed. Pt verbalized understanding regarding follow-up care. Reports decreased discomfort at time of departure. Bethanie Villalobos RN 09/07/23 7250 [facility] 09-07-2023 Emergency department Note Discharge paperwork completed. Pt verbalized understanding regarding follow-up care. Reports decreased discomfort at time of departure. Bethanie Villalobos RN 09/07/23 3980 [facility] at bedside receiving report and preparing for transport back to longterm. Bethanie Villalobos RN 09/07/23 9321 Received report from previous RN and assumed care of pt. Bethanie Villalobos RN 09/07/23 1863 Pt brought in from nursing facility with c/o shortness of breath. Patient has a known history of COPD. Patient 98% on room air, speaking in complete sentences, no acute distress noted. Asking for remote to television. States she wants to be admitted to the hospital because she doesn't feel like going back home. documented in this encounter [facility] 09-07-2023 Emergency department Note [facility] at bedside receiving report and preparing for transport back to longterm. Bethanie Villalobos RN 09/07/23 6312 [facility] 09-07-2023 Hospital Discharg e instructions WALESKA Cheney CNP - 09/07/2023 10:50 PM EDT Please make appointment to follow-up with your PCP in 2 days. The following attachments cannot be sent through Care Everywhere.Shortness of Breath (Dyspnea) Discharge Instructions (Tanzanian)documented in this encounter [facility] 09-07-2023 Emergency department Note Received report from previous RN and assumed care of pt. Bethanie Villalobos RN 09/07/23 7305 [facility] 09-07-2023 Emergency department Triage note Pt brought in from nursing facility with c/o shortness of breath. Patient has a known history of COPD. Patient 98% on room air, speaking in complete sentences, no acute distress noted. Asking for remote to television. States she wants to be admitted to the hospital because she doesn't feel like going back home. [facility] 12-11-2022 Hospital Discharg e instructions Aryan Coon RN - 12/11/2022 1:15 PM EDT [...] NEAREST EMERGENCY DEPARTMENT documented in this encounter [facility] 12-11-2022 Note Formatting of this n ote might be different from the original. Images from the original note were not included. DEPARTMENT OF SURGERY OPERATIVE NOTE DATE OF PROCEDURE: 12/11/2022 ATTENDING SURGEON: Micheal Arnold MD HOSPITAL TECHNICIAN: 0 PREOPERATIVE DIAGNOSIS: Abdominal pain in the lower POSTOPERATIVE DIAGNOSIS: Also with history of peptic ulcer disease nausea with vomiting OPERATION: EGD ANESTHESIA: General ESTIMATED BLOOD LOSS: Tanzanian Tolerated procedure well HISTORY: Patient referred for colonoscopy and EGD today by her primary physician at the longterm history of peptic ulcer disease and gastritis she had a upper GI endoscopy to the second portion of duodenum no abnormalities seen PROCEDURE: The scope was inserted without difficulty esophagus stomach and duodenum biopsy was not necessary she had some mild atrophic gastritis but no ulcers or tumors tolerated the procedure well next turned over for colonoscopy T [facility] [email or web address] 12-11-2022 Note Formatting of this n ote might be different from the original. Images from the original note were not included. DEPARTMENT OF SURGERY OPERATIVE NOTE DATE OF PROCEDURE: 12/11/2022 ATTENDING SURGEON: Micheal Arnold MD HOSPITAL TECHNICIAN: 0 PREOPERATIVE DIAGNOSIS: Abdominal pain in the lower mostly POSTOPERATIVE DIAGNOSIS: Few diverticuli nothing severe OPERATION: Colonoscopy ANESTHESIA: General ESTIMATED BLOOD LOSS: Tanzanian HISTORY: Patient presenting with significant epigastric and [...] normal findings surgery was tolerated well [facility] [email or web address] 12-11-2022 Note Formatting of this n ote might be different from the original. Images from the original note were not included. DEPARTMENT OF SURGERY OPERATIVE NOTE DATE OF PROCEDURE: 12/11/2022 ATTENDING SURGEON: Micheal Arnold MD HOSPITAL TECHNICIAN: 0 PREOPERATIVE DIAGNOSIS: Abdominal pain in the lower POSTOPERATIVE DIAGNOSIS: Also with history of peptic ulcer disease nausea with vomiting OPERATION: EGD ANESTHESIA: General ESTIMATED BLOOD LOSS: Tanzanian Tolerated procedure well HISTORY: Patient referred for colonoscopy and EGD today by her primary physician at the longterm history of peptic ulcer disease and gastritis she had a upper GI endoscopy to the second portion of duodenum no abnormalities seen PROCEDURE: The scope was inserted without difficulty esophagus stomach and duodenum biopsy was not necessary she had some mild atrophic gastritis but no ulcers or tumors tolerated the procedure well next turned over for colonoscopy T [facility] [email or web address] 12-11-2022 Note Formatting of this n ote might be different from the original. Images from the original note were not included. DEPARTMENT OF SURGERY OPERATIVE NOTE DATE OF PROCEDURE: 12/11/2022 ATTENDING SURGEON: Micheal Arnold MD HOSPITAL TECHNICIAN: 0 PREOPERATIVE DIAGNOSIS: Abdominal pain in the lower mostly POSTOPERATIVE DIAGNOSIS: Few diverticuli nothing severe OPERATION: Colonoscopy ANESTHESIA: General ESTIMATED BLOOD LOSS: Tanzanian HISTORY: Patient presenting with significant epigastric and [...] confirmed normal findings surgery was tolerated well [facility] 12-11-2022 Miscellaneous Notes Images from the original note were not included. DEPARTMENT OF SURGERY OPERATIVE NOTE DATE OF PROCEDURE: 12/11/2022 ATTENDING SURGEON: Micheal Arnold MD HOSPITAL TECHNICIAN: 0 PREOPERATIVE DIAGNOSIS: Abdominal pain in the lower POSTOPERATIVE DIAGNOSIS: Also with history of peptic ulcer disease nausea with vomiting OPERATION: EGD ANESTHESIA: General ESTIMATED BLOOD LOSS: Tanzanian Tolerated procedure well HISTORY: Patient referred for colonoscopy and EGD today by her primary physician at the longterm history of peptic ulcer disease and gastritis [...] PROCEDURE: 12/11/2022 ATTENDING SURGEON: Micheal Arnold MD HOSPITAL TECHNICIAN: 0 PREOPERATIVE DIAGNOSIS: Abdominal pain in the lower mostly POSTOPERATIVE DIAGNOSIS: Few diverticuli nothing severe OPERATION: Colonoscopy ANESTHESIA: General ESTIMATED BLOOD LOSS: Tanzanian HISTORY: Patient presenting with significant epigastric and [...] was tolerated well documented in this encounter [facility] 12-11-2022 History and physical note Images from the original note were not included. Office Visit 11/12/2022 [facility] General Surgery Micheal Silva MD General [...] Cuff Size: Large adult) Pulse 86 Smart[employer]: [facility] SMARTFORM EXAM ROOM Encounter Info: Billing Info, History, Allergies, Detailed Report, Developmental Communications View All Conversations on this Encounter No questionnaires available. Orders Placed None Medication Changes None Medication List Visit Diagnoses Abdominal pain, left lower quadrant R10.32 Nausea and vomiting, unspecified vomiting type R11.2 Problem List [employer] Work Phone: 12-11-2022 History and physical note Images from the original note were not included. Office Visit 11/12/2022 [facility] General Surgery Micheal Sliva MD General Surgery Abdominal pain, left lower [...] Cuff Size: Large adult) Pulse 86 [employer]: [facility] SMART[facility] EXAM ROOM Encounter Info: Billing Info, History, Allergies, Detailed Report, Developmental Communications View All Conversations on this Encounter No questionnaires available. Orders Placed None Medication Changes None Medication List Visit Diagnoses Abdominal pain, left lower quadrant R10.32 Nausea and vomiting, unspecified vomiting type R11.2 Problem List Images from the original note were not included. Office Visit 11/12/2022 [facility] General Surgery Micheal Silva MD General [...] R11.2 Problem List documented in this encounter [facility] 12-11-2022 History and physical note Images from the original note were not included. Office Visit 11/12/2022 [facility] General Surgery Micheal Silva MD General [...] Cuff Size: Large adult) Pulse 86 [employer]: [facility] SMART[facility] EXAM ROOM Encounter Info: Billing Info, History, Allergies, Detailed Report, Developmental Communications View All Conversations on this Encounter No questionnaires available. Orders Placed None Medication Changes None Medication List Visit Diagnoses Abdominal pain, left lower quadrant R10.32 Nausea and vomiting, unspecified vomiting type R11.2 Problem List [facility] 11-12-2022 History of Presen t illness Narrative [...] this encounter. Follow Up: Micheal Arnold MD, @TODAYMOATE@ documented in this encounter [facility] Evaluation note No assessment inform ation available [facility] Work Phone: Evaluation note Diagnosis Abdominal pain, left lower quadrant- Primary Nausea and vomiting, unspecified vomiting type [facility] Diagnosis Abdominal pain, left lower quadrant- Primary [facility] Diagnosis Encounter for screening mammogram for malignant neoplasm of breast- Primary [facility] Diagnosis Shortness of breath- Primary Shortness of breath Chronic kidney disease, unspecified CKD stage Asymptomatic hypertension Chronic kidney disease Chronic kidney disease, unspecified [facility] Diagnosis Encounter for screening mammogram for malignant neoplasm of breast [facility] Diagnosis Encounter for screening mammogram for malignant neoplasm of breast [facility] (narrative)No reason for referral information availableBrown [facility] Work Phone: Summary Purpose Family History No Family History Records FoundNo Family History Records FoundNo Family History Records FoundNo Family History Records FoundNo Family History Records FoundNo Family History Records FoundNo Family History Records FoundNo Family History Records Found Advance Directives No Advanced Directives Records FoundDocuments on File Type Date Recorded Patient Public Health Dietitian Expl anation ACP-Advance Directive ACP-Power of Dehydrator Latest Code Status on File Code Status [...] 00am LABOWRK July 17, 2024 5:0 0am Chief Complaint Admit Date SKILLED NURSING LAB WORK June 23, 2024 5: 00am SKILLED NURSING LAB WORK July 04, 2024 4 :00am LABOWRK July 17, 2024 5:0 0am SKILLED NURSING LAB WORK July 19, 2024 5 :00am LABWORK August 16, 2024 5:00a m SKILLED NURSING LAB WORK September 20, 2024 5:0 0am SKILLED NURSING LAB WORK September 25, 2024 4:0 0am Additional Source Comments INFORMATION SOURCE (unrecogn ized section and content) DATE CREATED AUTHOR 06/28/2018 [facility] DATE CREATED AUTHOR AUTHOR'S ORGANIZ ATION 07/03/2018 [facility] DATE CREATED AUTHOR AUTHOR'S ORGANIZ ATION 07/21/2018 [facility] DATE CREATED AUTHOR AUTHOR'S ORGANIZ ATION 07/30/2018 [facility] DATE CREATED AUTHOR AUTHOR'S ORGANIZ ATION 10/30/2018 [facility] DATE CREATED AUTHOR AUTHOR'S ORGANIZ ATION 05/22/2021 [facility] DATE CREATED AUTHOR AUTHOR'S ORGANIZ ATION 10/22/2024 [facility] DATE CREATED AUTHOR AUTHOR'S ORGANIZ ATION 12/04/2024 [facility] Care Teams (unrecognized sec tion and content) Team Status: Inactive Member Role Status Dates Lex HERNANDEZ Attending Provider Active Team Status: Active Member Role Status Dates Lex HERNANDEZ Attending Provider, Referring Provid er Active Team Status: Inactive Member Role Status Dates Lex HERNANDEZ Attending Provider, Referring Provid er Active Team Status: Active Member Role Status Dates Lex HERNANDEZ Attending Provider Active Stock 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 Relationship Specialty Start Date End Date Kristel Nunes MD PCP - General 09/20/17 Stock Checker Relationship Specialty Start Date End Date Lex Roca [address] [place] [address] [address] [place] [address] PCP - General 05/20/21 Stock Checker Relationship Specialty Start Date End Date Lex Roca [address] [place] [address] [address] [place] [address] PCP - General 05/20/21 Stock Checker Relationship Specialty Start Date End Date Lex Roca MD [address] [place] [address] [address] [place] [address] PCP - General 05/20/21 Stock Checker Relationship Specialty Start Date End Date Lex Roca MD [address] [place] [address] [address] [place] [address] PCP - General 05/20/21 Stock Checker Relationship Specialty Start Date End Date Lex Roca [address] [place] [address] [address] [place] [address] PCP - General 05/20/21 Team Status: Inactive [...] Provider Active Star t: July 19, 2024 Team Status: Inactive Member Role/Relationship Status Dates Lex HERNANDEZ Attending Provider Active Star t: June 23, 2024 End: June 23, 2024 Team Status: Inactive Member Role/Relationship Status Dates Lex HERNANDEZ Attending Provider Active Star t: July 04, 2024 End: July 04, 2024 Lex HERNANDEZ Referring Provider Active Star t: July 04, 2024 End: July 04, 2024 Team Status: Inactive Member Role/Relationship Status Dates Lex HERNANDEZ Attending Provider Active Star t: July 17, 2024 End: July 17, 2024 Team Status: Inactive Member Role/Relationship Status Dates Lex HERNANDEZ Attending Provider Active Star t: July 19, 2024 End: July 19, 2024 Team Status: Active Member Role/Relationship Status Dates Lex HERNANDEZ Attending Provider Active Star t: August 16, 2024 Team Status: Active Member Role/Relationship Status Dates Lex HERNANDEZ Attending Provider Active Star t: September 20, 2024 Team Status: Inactive Member Role/Relationship Status Dates Lex HERNANDEZ Attending Provider Active Star t: September 25, 2024 End: September 25, 2024 Lex HERNANDEZ Referring Provider Active Star t: September 25, 2024 End: September 25, 2024 Team Status: Inactive Member Role/Relationship Status Dates Lex HERNANDEZ Attending Provider Active Star t: August 16, 2024 End: August 16, 2024 Goals (unrecognized section and content) Goals [...] [R10.32] Nausea with vomiting, unspecified [R11.2] Procedures RI ESOPHAGOGASTRODUODENOSCOPY TRANSORAL DIAGNOSTIC RI COLONOSCOPY FLX DX W/COLLJ SPEC WHEN PFRMD EGD DIAGNOSTIC COLONOSCOPY Micheal Arnold MD [address] [place] [address], [address] [place] [address] [facility] [address] [place] [id number] Referral ID Status Reason Start Date Expiration Date Visits Re quested Visits Authorized [id number] 1 Reason Comments Shortness of Breath Pt brought in from [facility] facility with c/o shortness of breath. Patient [...] 4 mg, IntraVENous, Once, On Wed09/07/23 at 215, For 1 dose, If oral and IV [...] On Wed09/07/23 at 2155, For 1 dose 2156 (Given - Provid er: Bethanie Villalobos RN) sodium chloride 0.9 % bolus 1,000 mL (COMPLETED) 1,000 mL, IntraVENous, at 1,000 mL/hr, Administer over 1 Hours, Once, On Wed09/07/23 at 2135, For 1 dose 2140 (New Bag - Prov ider: Bethanie Villalobos [...] BE BASED ON THE PRIMARY CLINICAL RECORDS. [employer] provides no warranty or guarantee of the accuracy or completeness of information in this document.
[2024-12-05 08:12] LABS: Hematocrit 36.7 % (37-47); Hemoglobin 11.9 g/dL (12.0-15.0); Immature Granulocytes Count 0.090 X10^3/uL (0.0-0.0); Mean Corp Hgb Conc 32.4 g/dL (32-36); Mean Corpuscular Volume 89.5 fL (81-99); Mean Platelet Vol. 9.7 fl (6.2-12.0); NRBC Flagged by Analyzer 0 % (0-5); Platelet Count 423 K/mm3 (150-450); RBC Distribution Width CV 13.7 % (11.6-14.6); RBC Distribution Width SD 44.5 fl (35.1-43.9); Red Blood Count 4.10 M/mm3 (4.2-5.4); White Blood Count 8.5 K/mm3 (4.4-11.0)
[2024-12-05 08:30] LABS: PTHIN 15 pg/mL (11-61)
[2024-12-05 08:44] LABS: Albumin, Serum 3.7 g/dL (3.4-4.8); Anion Gap 12 (5-15); BUN 36 mg/dL (4-19); BUN/Creat Ratio 13.5 RATIO (10-20); Calcium,Total 9.8 mg/dL (7.6-11.0); Carbon Dioxide 22.9 mmol/L (21.0-32.0); Chloride 107 mmol/L (98-108); Ferritin 40 ng/mL (22-378); Glucose 198 mg/dL (70-99); Iron 66 ug/dL (50-170); Iron Binding Capacity,Total 324 ug/dL (250-450); Iron Binding Capacity,Unsat 258 ug/dL (228-428); Potassium 4.2 mmol/L (3.3-5.1); Vitamin D,25 Hydroxy 11.5 ng/mL (30-100)
[2024-12-05 09:33] LABS: Creatinine, Urine (random) 79.70 mg/dL (28.00-217.00)
== END | disposition home or self-care (01) ==
LOC: OLS.ACW100 04:00
PROVIDERS: Referring Provider Family Medicine; Visit Provider Family Medicine
DX: E11.21 Type 2 diabetes mellitus with diabetic nephropathy (principal); K57.90 Diverticulosis of intestine, part unspecified, without perforation or abscess without bleeding; M62.81 Muscle weakness (generalized); R27.9 Unspecified lack of coordination
CPT/HCPCS: 36415; 80069; 82306; 82570; 82728; 83540; 83550; 83970; 85025

== ENCOUNTER → 2024-12-26 | Outpatient (REF) | payer MEDICAID, SELFPAY ==
[2024-12-26 08:48] LABS: Hematocrit 33.6 % (37-47); Hemoglobin 11.1 g/dL (12.0-15.0); Mean Corp Hgb Conc 33.0 g/dL (32-36); Mean Corpuscular Volume 87.0 fL (81-99); Mean Platelet Vol. 9.6 fl (6.2-12.0); Platelet Count 288 K/mm3 (150-450); RBC Distribution Width CV 14.0 % (11.6-14.6); RBC Distribution Width SD 44.4 fl (35.1-43.9); Red Blood Count 3.86 M/mm3 (4.2-5.4); White Blood Count 9.6 K/mm3 (4.4-11.0)
[2024-12-26 09:21] LABS: Cholesterol 115 mg/dL (<=200); Low Density Lipoprotein Calc. 54 mg/dL; Triglycerides 129 mg/dL; Very Low Density Lipoprotein 26 mg/dL (5-40); cholesterol:hdl ratio screen 3.29
[2024-12-26 09:29] LABS: Vitamin D,25 Hydroxy 9.8 ng/mL (30-100)
== END | disposition home or self-care (01) ==
LOC: OLS.ACW100 04:00
PROVIDERS: Referring Provider Family Medicine; Visit Provider Family Medicine
DX: E11.21 Type 2 diabetes mellitus with diabetic nephropathy (principal); K57.90 Diverticulosis of intestine, part unspecified, without perforation or abscess without bleeding; M62.81 Muscle weakness (generalized); R27.9 Unspecified lack of coordination
CPT/HCPCS: 36415; 80061; 82306; 83036; 85027

== ENCOUNTER → 2025-01-22 | Outpatient (REF) | payer MEDICAID, SELFPAY ==
--- OUTSIDE RECORDS SUMMARY | 2025-01-22 03:25 | XMS RPT_ITS | CCD ---
Author Organization [facility] Care Team Providers Care 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 Name Role Phone IMCA Primary Care Unavailable [...] Provider Lex Roca MD Primary Care Provider [phone] Lex Roca Primary Care Provider [phone] Lex Meyers Attending Provider UnavailLex Jones Referring Provider UnavailLex Jones Attending Provider UnavailLex Jones Referring Provider UnavailLEX Abarca Primary Care Unavailable LEX VILLALPANDO Admitting Unavailable MIKHAIL, NUHA Attending Unavailable LEX ROCA Primary Care Unavailable LON GUILLENIN Attending Unavailable LEX ROCA Primary Care Unavailable Marcel CHEN Attending Unavailable LEX ROCA Primary Care Unavailable GRZEGORZ GUILLEN Attending Unavailable LEX ROCA Primary Care Unavailable LON GUILLENIN Attending Unavailable LEX ROCA Primary Care Unavailable JERAMY ALLEN Attending Unavailable LEX ROCA Primary Care Unavailable LUDY, OMI Admitting Unavailable JERAMY SY Attending Unavailable LEX ROCA Primary Care Unavailable CINTHYA LOPEZ Attending Unavaila LEX Lepe Attending Unavailable LEX ROCA Referring Unavailable LEX ROCA Primary Care Unavailable Marcel CHEN Referring Unavailable LEX ROCA Primary Care Unavailable Chanelle HERNANDEZ, Lex Attending Unavailable Chanelle OLS, Lex Attending Unavailable Chanelle OLS, Lex Attending Unavailable Chanelle OLS, Lex Referring Unavailable Chanelle OLS, Lex Attending Unavailable Chanelle HERNANDEZ, Lex Attending Unavailable Chanelle HERNANDEZ, Lex Attending Unavailable Chanelle [...] Attending Unavailable Chanelle HERNANDEZ, Lex Referring Unavailable Allergies Allergy Classification Reported Allergen(s) Allergy Type Date of Onset Reaction(s) Facility Penicillins (antibiotic) (2 sources) Penicillins Drug Allergy 8 Unknown [facility] (3 sources) Penicillin; Translations: [PENICILLIN] Drug Allergy 8 [facility] (6 sources) Penicillins Propensity to adverse reactions to drug 8 Unknown [facility] Medications Current Medications Medication Drug Class(es) Dates [...] kidney disease; Translations: [Chronic kidney disease, stage 3 unspecified (HCC)] Onset: 09-07-2023 Chronic ulcer of skin (2 sources) 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; Translations: [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 (HCC)] Onset: 07-08-2024 Chronic Coronary atherosclerosis and other heart disease (13 sources) Atherosclerotic heart disease of [place] coronary artery without angina pectoris; Translations: [Coronary [...] Onset: 08-17-2018 Episodic Other aftercare (3 sources) 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 terminal 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 repeater (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) use of aspirin; Translations: [group home (current) use of aspirin] Onset: 07-17-2018 Episodic Other aftercare (1 source) Other adjunct faculty for medical terminology (current) drug therapy; Translations: [OTH ORTHOTICS TECHNICIAN CURRENT DRUG THERAPY] Onset: 08-17-2018 Episodic Other aftercare (3 sources) group home (current) use of oral hypoglycemic drugs; Translations: [...] BACTERIA (#/HPF) IN URINE Few Abnormal Negative [facility] Comment on above: Performed By: #### L [id number] #### Catering Coordinator: LAURA BAUTISTA ([phone]) [facility]) [address] [place] [address] BILIRUBIN, TOTAL PRESENCE IN URINE Negative Normal Negative [facility] Comment on above: Performed By: #### L [id number] #### Catering Coordinator: LAURA BAUTISTA ([id number]) [facility] ([facility]) [address] [place] [address] Clarity (U) Clear Normal Clear [facility] Comment on above: Performed By: #### L [id number] #### Catering Coordinator: LAURA BAUTISTA ([id number]) [facility] ([facility]) [address] [place] [address] [place] Color (U) Light Yellow Normal Lt. Yellow [facility] Comment on above: Performed By: #### L [id number] #### Catering Coordinator: LAURA BAUTISTA ([phone]) [facility] ([facility]) [address] [place] [address] Glucose (U) [Mass/Vol] 500 mg/dL Abnormal Normal (<70) [facility] Comment on above: Performed By: #### L [id number] #### Catering Coordinator: LAURA BAUTISTA ([id number]) [facility] ([facility]) [address] [place] [address] HEMOGLOBIN PRESENCE IN URINE Negative Normal Negative [facility] Comment on above: Performed By: #### L AB90 #### Catering Coordinator: LAURA BAUTISTA ([phone]) [facility] ([facility]) [address] [place] [address] Ketones Ql (U) Negative Normal Negative [facility] Comment on above: Performed By: #### L AB90 #### Catering Coordinator: LAURA BAUTISTA ([phone]) [facility] ([facility]) [address] [place] [address] LEUKOCYTE ESTERASE PRESENCE IN URINE BY TEST STRIP Negative Normal Negative [facility] Comment on above: Performed By: #### L AB90 #### Catering Coordinator: LAURA BAUTISTA ([id number]) [facility] ([facility]) [address] [place] [address] NITRITE PRESENCE IN URINE Negative Normal Negative [facility] Comment on above: Performed By: #### L AB90 #### Catering Coordinator: LAURA BAUTISTA ([id number]) [facility] ([facility]) [address] [place] [address] [place] NON-SQUAMOUS EPITHELIAL (#/HPF) IN URINE 0-2 Abnormal Negative [facility] Comment on above: Performed By: #### L [id number] #### Catering Coordinator: LAURA BAUTISTA ([id number]) [facility] ([facility]) [address] [place] [address] pH (U) 6.5 [pH] Normal 5.0-8.0 [facility] Comment on above: Performed By: #### L AB90 #### Catering Coordinator: LAURA BAUTISTA ([id number]) [facility] ([facility]) [address] [place] [address] Protein (U) [Mass/Vol] 600 mg/dL Abnormal Negative [facility] Comment on above: Performed By: #### L AB90 #### Catering Coordinator: LAURA BAUTISTA ([phone]) [facility] ([facility]) [address] [place] [address] RBC (#/HPF) IN URINE SEDIMENT 0-2 Normal 0-2 [facility] Comment on above: Performed By: #### L [id number] #### Catering Coordinator: LAURA BAUTISTA ([id number]) [facility] ([facility]) [address] [place] [address] Specific gravity (U) [Rel density] 1.017 Normal 1.005-1.030 [facility] Comment on above: Result Comment: MITRA Hargrove COMMENTS: A specimen with <=10 WBC is not consistent with inflammation. This specimen will not reflex to a urine culture. Performed By: #### L AB90 #### Catering Coordinator: LAURA BAUTISTA ([id number]) [facility] ([facility]) [address] [place] [address] Specimen volume (U) 12 mL Normal [facility] Comment on above: Performed By: #### L [id number] #### Catering Coordinator: LAURA BAUTISTA ([id number]) [facility] ([facility]) [address] [place] [address] SQUAMOUS EPITHELIAL CELLS (#/HPF) IN URINE SEDIMENT 6-10 Abnormal 3-5 [facility] Comment on above: Performed By: #### L [id number] #### Catering Coordinator: LAURA BAUTISTA ([id number]) [facility] ([facility]) [address] [place] [address] UROBILINOGEN (MG/DL) IN URINE Normal Normal Normal (0-1) [facility] Comment on above: Performed By: #### L [id number] #### Catering Coordinator: LAURA BAUTISTA ([id number]) [facility] ([facility]) [address] WBC (LEUKOCYTE) (#/HPF) IN URINE SEDIMENT 3-5 Normal 0-5 [facility] Comment on above: Performed By: #### L [id number] #### Catering Coordinator: LAURA BAUTISTA ([phone]) [facility] ([facility]) [address] HIGH SENSITIVITY TROPONIN, S ERIAL, SECOND TESTon 12-04-2024 2H TROPONIN HS (SERIAL 2ND TROPONIN) 16 ng/L High <=14 [facility] Comment on above: Result Comment: 2h t roponin (2nd troponin) samples collected between 1h 40 min and 2h and 20 min of the baseline collection time can be utilized to interpret delta troponins as per [facility] algorithms. Samples collected outside this timeframe need to be interpreted clinically. Rising or falling troponin delta below 2 ng/L as compared to baseline value suggests that acute cardiac injury is unlikely. Performed By: #### L [id number] ####Catering Coordinator: LAURA BAUTISTA ([id number])[facility] ([facility])[address] [place] [address] CBC WITH AUTO DIFFERENTIALon 12-03-2024 Basophils (Bld) [#/Vol] 0.1 10*3/uL Normal 0.0-0.2 [facility] Comment on above: Performed By: #### L [id number] ####Catering Coordinator: LAURA BAUTISTA ([id number])[facility] ([facility])[address] [place] [address] [place] Basophils/100 WBC (Bld) 0.8 % Normal 0.0-2.0 [facility] Comment on above: Performed By: #### L [id number] ####Catering Coordinator: LAURA BAUTISTA ([id number])[facility] ([facility])[address] [place] [address] Eosinophils (Bld) [#/Vol] 0.8 10*3/uL High 0.0-0.5 [facility] Comment on above: Performed By: #### L [id number] ####Catering Coordinator: LAURA [id number])[facility] ([facility])[address] [place] [address] [place] Eosinophils/100 WBC (Bld) 9.5 % High 0.0-6.0 [facility] Comment on above: Performed By: #### L [id number] ####Catering Coordinator: LAURA BAUTISTA ([id number])[facility] ([facility])[address] [place] [address] Erythrocyte distribution width (RBC) [Ratio] 13.7 % Normal 11.5-15.0 [facility] Comment on above: Performed By: #### L [id number] ####Catering Coordinator: LAURA BAUTISTA ([phone])[facility] ([facility])[address] [place] [address] Hematocrit (Bld) [Volume fraction] 33.1 % Low 35.0-47.0 [facility] Comment on above: Performed By: #### L [id number] ####Catering Coordinator: LAURA BAUTISTA ([id number])[facility] ([facility])[address] [place] [address] Hemoglobin (Bld) [Mass/Vol] 11.0 g/dL Low 11.7-16.0 [facility] Comment on above: Performed By: #### L [id number] ####Catering Coordinator: LAURA BAUTISTA ([phone])[facility] ([facility])[address] [place] [address] IMMATURE GRANS % 0.6 % Normal 0.0-2.0 [facility] Comment on above: Performed By: #### L [id number] ####Catering Coordinator: LAURA BAUTISTA ([id number])[facility] ([facility])[address] [place] [address] IMMATURE GRANS ABSOLUTE 0.1 10*3/uL High <0.1 [facility] Comment on above: Performed By: #### L [id number] ####Catering Coordinator: LAURA BAUTISTA ([id number])[facility] ([facility])[address] [place] [address] [place] Lymphocytes (Bld) [#/Vol] 1.6 10*3/uL Normal 1.0-4.3 [facility] Comment on above: Performed By: #### L [id number] ####Catering Coordinator: LAURA BAUTISTA ([id number])[facility] ([facility])[address] [place] [address] Lymphocytes/100 WBC (Bld) 19.0 % Normal 15.0-45.0 [facility] Comment on above: Performed By: #### L [id number] ####Catering Coordinator: LAURA BAUTISTA ([id number])[facility] ([facility])[address] [place] [address] MCH (RBC) [Entitic mass] 29.2 pg Normal 26.0-34.0 [facility] Comment on above: Performed By: #### L [id number] ####Catering Coordinator: LAURA BAUTISTA ([id number])[facility] ([facility])[address] [place] [address] MCHC 33.2 % Normal 30.5-36.0 [facility] Comment on above: Performed By: #### L [id number] ####Catering Coordinator: LAURA BAUTISTA ([id number])[facility] ([facility])[address] [place] [address] MCV (RBC) [Entitic vol] 87.8 fL Normal 77.0-99.0 [facility] Comment on above: Performed By: #### L [id number] ####Catering Coordinator: LAURA BAUTISTA ([id number])[facility] ([facility])[address] [place] [address] Monocytes (Bld) [#/Vol] 0.9 10*3/uL Normal 0.0-0.9 [facility] Comment on above: Performed By: #### L [id number] ####Catering Coordinator: LAURA BAUTISTA ([id number])[facility] ([facility])[address] [place] [address] [place] Monocytes/100 WBC (Bld) 10.6 % Normal 5.0-13.0 [facility] Comment on above: Performed By: #### L [id number] ####Catering Coordinator: LAURA BAUTISTA ([id number])[facility] ([facility])[address] [place] [address] [place] NEUTROPHILS ABSOLUTE 5.1 10*3/uL Normal 1.8-7.5 [facility] Comment on above: Performed By: #### L [id number] ####Catering Coordinator: LAURA BAUTISTA ([id number])[facility] ([facility])[address] [place] [address] [place] Neutrophils/100 WBC (Bld) 59.5 % Normal 38.0-82.0 [facility] Comment on above: Performed By: #### L [id number] ####Catering Coordinator: LAURA BAUTISTA ([id number])[facility] ([facility])[address] [place] [address] [place] NRBC 0.0 /100 WBCs Normal 0.0-2.0 [facility] Comment on above: Performed By: #### L [id number] ####Catering Coordinator: LAURA BAUTISTA ([id number])[facility] ([facility])[address] [place] [address] [place] Platelet mean volume (Bld) [Entitic vol] 9.5 fL Normal 9.0-12.7 [facility] Comment on above: Result Comment: MPV is a calculated measurement using platelet volume ratio Performed By: #### L [id number] ####Catering Coordinator: LAURA BAUTISTA ([id number])[facility] ([facility])[address] [place] [address] [place] Platelets (Bld) [#/Vol] 386 10*3/uL Normal 140-440 [facility] Comment on above: Performed By: #### Jaky [id number] ####Catering Coordinator: LAURA BAUTISTA ([id number])[facility] ([facility])[address] RBC (Bld) [#/Vol] 3.77 10*6/uL Low 3.80-5.20 [facility] Comment on above: Performed By: #### L [id number] ####Catering Coordinator: LAURA BAUTISTA ([id number])[facility] ([facility])[address] WBC (Bld) [#/Vol] 8.6 10*3/uL Normal 3.6-10.7 [facility] Comment on above: Performed By: #### Jaky [id number] ####Catering Coordinator: LAURA BAUTISTA ([id number])[facility] ([facility])[address] [place] [address] COMPREHENSIVE METABOLIC PANE Aamir 12-03-2024 Albumin [Mass/Vol] 3.1 g/dL Low 3.4-4.8 [facility] Comment on above: Performed By: #### Jaky AB17, LAB99, [id number] ####Catering Coordinator: LAURA BAUTISTA ([id number])[facility] ([facility])[address] ALP [Catalytic activity/Vol] 66 U/L Normal 40-150 [facility] Comment on above: Performed By: #### Jaky AB17, LAB99, [id number] ####Catering Coordinator: LAURA BAUTISTA ([id number])[facility] ([facility])[address] ALT [Catalytic activity/Vol] 12 U/L Normal <30 [facility] Comment on above: Performed By: #### Jaky AB17, LAB99, [id number] ####Catering Coordinator: LAURA BAUTISTA ([id number])[facility] ([facility])[address] Anion gap [Moles/Vol] 9 mmol/L Normal 3-13 [facility] Comment on above: Performed By: #### Jaky CHAUHAN, LAB99, [id number] ####Catering Coordinator: LAURA BAUTISTA ([id number])[facility] ([facility])[address] AST [Catalytic activity/Vol] 23 U/L Normal <34 [facility] Comment on above: Performed By: #### Jaky CHAUHAN, LAB99, [id number] ####Catering Coordinator: LAURA BAUTISTA ([id number])[facility] ([facility])[address] [place] [address] Bilirubin [Mass/Vol] 0.3 mg/dL Normal <1.2 [facility] Comment on above: Performed By: #### Jaky CHAUHAN, LAB99, [id number] ####Catering Coordinator: LAURA BAUTISTA ([id number])[facility]Ram[facility]ANILL[facility]AM [facility] ([facility])[address] [place] [address] Calcium [Mass/Vol] 9.5 mg/dL Normal 8.8-10.0 [facility] Comment on above: Performed By: #### Jaky CHAUHAN, LAB99, [id number] ####Catering Coordinator: LAURA BAUTISTA ([id number])[facility] ([facility])[address] [place] [address] [place] Chloride [Moles/Vol] 110 mmol/L High 98-107 [facility] Comment on above: Performed By: #### Jaky CHAUHAN, LAB99, [id number] ####Catering Coordinator: LAURA BAUTISTA ([id number])[facility] ([facility])[address] [place] [address] [place] CO2 [Moles/Vol] 20 mmol/L Low 23-31 [facility] Comment on above: Performed By: #### Jaky AB17, LAB99, [id number] ####Catering Coordinator: LAURA BAUTISTA ([id number])[facility] ([facility])[address] Creatinine [Mass/Vol] 2.56 mg/dL High 0.57-1.11 [facility] Comment on above: Performed By: #### Jaky HOLT17, LAB99, [id number] ####Catering Coordinator: LAURA BAUTISTA ([id number])[facility]Rma[facility] ([facility])[address] [place] [address] [place] GLOMERULAR FILTRATION RATE ML/MIN/1.73 SQ M.PREDICTED 20.7 mL/min/1.73m*2 Low >60.0 [facility] Comment on above: Result Comment: Calc ulation based on the Chronic Kidney Disease Epidemiology Collaboration (CKD-EPI) equation refit without adjustment for race Performed By: #### Jaky HOLT17, LAB99, [id number] ####Catering Coordinator: LAURA BAUTISTA ([id number])[facility] ([facility])[address] [place] [address] Glucose [Mass/Vol] 263 mg/dL High 82-115 [facility] Comment on above: Performed By: #### Jaky CHAUHAN, LAB99, [id number] ####Catering Coordinator: LAURA BAUTISTA ([id number])[facility] ([facility])[address] [place] [address] [place] Potassium [Moles/Vol] 4.2 mmol/L Normal 3.5-5.1 [facility] Comment on above: Result Comment: [facility] potassium values may be up to 0.5 mmol/L lower than serum values. Performed By: #### Jaky AB17, LAB99, [id number] ####Catering Coordinator: LAURA BAUTISTA ([id number])[facility] ([facility])[address] [place] [address] Protein [Mass/Vol] 6.8 g/dL Normal 6.4-8.3 [facility] Comment on above: Performed By: #### L AB17, LAB99, [id number] ####Catering Coordinator: LAURA BAUTISTA ([id number])[facility] ([facility])[address] [place] [address] Sodium [Moles/Vol] 139 mmol/L Normal 136-145 [facility] Comment on above: Performed By: #### L AB17, LAB99, [id number] ####Catering Coordinator: LAURA BAUTISTA ([id number])[facility] (SWRL[facility])[address] [place] [address] Urea nitrogen [Mass/Vol] 44 mg/dL High 9-23 [facility] Comment on above: Performed By: #### L AB17, LAB99, [id number] ####Catering Coordinator: LAURA BAUTISTA ([id number])[facility] ([facility])[address] [place] [address] ECG 12-LEADon 12-03-2024 ECG 12-LEAD IMPRESSION: Sinus rhythm Low voltage, precordial leads LVH by voltage Anterior Q waves, possibly due to LVH Compared to ECG 11/12/24 No significant change Electronically Signed On 12-03-2024 23:24:34 EDT by Grzegorz Guillen Normal [facility] ED Nursing Noteon 12-03-2024 ED Nursing Note Pt arrived via [facility]. Pt laughing/ joking around with staff, c/o abdominal discomfort - started this evening. + back and hip pain. + c/o chest discomfort/sob and cough after ambulation, +states got sick tonite. Pt states "I need the remote so I can watch TV". Talking in full sentences. No distress noted Normal [facility] ED Provider Noteon ED Provider Note Emergency Department Encounter [facility] ED Patient: Cinthya Castillo : 1960 Date of Evaluation: 12/03/2024 ED Provider: Grzegorz Guillen DO Chief Complaint Chief Complaint Patient presents with Abdominal Pain + urinary complaints MAURA Castillo is a 63 y.o. female [...] % Ly (more content not included)... Normal [facility] HIGH SENSITIVITY TROPONIN, S ERIAL BASELINEon 12-03-2024 TROPONIN HS SERIAL BASELINE 15 ng/L High <=14 [facility] Comment on above: Result Comment: In i ndividuals presenting with symptoms > 2h, a baseline troponin <= 5 ng/L suggests acute cardiac injury is unlikely and further serial testing is generally not indicated. Performed By: #### Jaky AB17, LAB99, [id number] ####Catering Coordinator: LAURA BAUTISTA ([id number])[facility] (RLAB)[address] [place] [address] LIPASEon 12-03-2024 Lipase [Catalytic activity/Vol] 17 U/L Normal <55 [facility] Comment on above: Performed By: #### L AB17, LAB99, [id number] ####Catering Coordinator: LAURA BAUTISTA ([id number])[facility] ([facility])[address] [place] [address] [id number] 11-14-2024 [id number] TCC received secure chat that pt is medically stable to return to LTC today via CRITICAL CARE NURSE PRACTITIONER. TCC asked that DC order be placed and MANDY completed. TCC added RN and SW to chat to notify. TCC updated LTC facility of DC today. Pt is bedhold, no auth needed to return. Discharge order placed and MANDY completed. TCC tasked FINANCING ANALYST to set up transport. Transport set up [...] to DC today and has verbalized understanding. FINANCING ANALYST notified LTC of time. TCC tasked FINANCING ANALYST to transmit DC orders to LTC. [facility] was placed in follow up provider section. Discharge date updated and milestones completed. Pt will be transported to [facility] LT return today at 3:00 pm via ambulance transport. [facility] [id number] Confirmed pickup anh e of 3 pm by transport company [employer] at phone number [phone]. Location of facility drop off is [facility]. Facility notified [facility], TCC notified on secure chat. [facility] [id number] MAR, Med Rec and Discharge Paperwork sent to [facility] via [facility] per TCC request. [facility] [id number] Pt is able to return to [facility]. She is there LT level of care and is a bedhold. No auth needed to return. No covid needed to return. Pt is able to return whenever medically stable. TCC will follow for pt readiness. [facility] BASIC METABOLIC PANELon 08-2 Anion gap [Moles/Vol] 7 mmol/L Normal 3-13 [facility] Comment on above: Performed By: #### L AB90 #### Catering Coordinator: LAURA BAUTISTA ([phone]) [facility] [address] [place] [address] Calcium [Mass/Vol] 7.8 mg/dL Low 8.8-10.0 [facility] Comment on above: Performed By: #### L AB90 #### Catering Coordinator: LAURA BAUTISTA ([phone]) [facility] [address] [place] [address] Chloride [Moles/Vol] 116 mmol/L High 98-107 [facility] Comment on above: Performed By: #### L AB90 #### Catering Coordinator: LAURA BAUTISTA ([phone]) [facility] [address] [place] [address] CO2 [Moles/Vol] 20 mmol/L Low 23-31 [facility] Comment on above: Performed By: #### L AB90 #### Catering Coordinator: LAURA BAUTISTA ([phone]) [facility] [address] [place] [address] Creatinine [Mass/Vol] 2.26 mg/dL High 0.57-1.11 [facility] Comment on above: Performed By: #### L AB90 #### Catering Coordinator: LAURA BAUTISTA ([phone]) [facility] [address] [place] [address] [place] GLOMERULAR FILTRATION RATE ML/MIN/1.73 SQ M.PREDICTED 24.0 mL/min/1.73m*2 Low >60.0 [facility] Comment on above: Result Comment: Calc ulation based on the Chronic Kidney Disease Epidemiology Collaboration (CKD-EPI) equation refit without adjustment for race Performed By: #### L AB90 #### Catering Coordinator: LAURA BAUTISTA ([phone]) [facility] [address] [place] [address] [place] Glucose [Mass/Vol] 112 mg/dL Normal 82-115 [facility] Comment on above: Performed By: #### L AB90 #### Catering Coordinator: LAURA BAUTISTA ([phone]) [facility]) [address] [place] [address] Potassium [Moles/Vol] 4.7 mmol/L Normal 3.5-5.1 [facility] Comment on above: Result Comment: [facility] potassium values may be up to 0.5 mmol/L lower than serum values. Performed By: #### L AB90 #### Catering Coordinator: LAURA BAUTISTA ([phone]) [facility] ([facility]) [address] [place] [address] Sodium [Moles/Vol] 143 mmol/L Normal 136-145 [facility] Comment on above: Performed By: #### L AB90 #### Catering Coordinator: LAURA BAUTISTA ([id number]) [facility]) [address] [place] [address] Urea nitrogen [Mass/Vol] 45 mg/dL High 9-23 [facility] Comment on above: Performed By: #### L AB90 #### Catering Coordinator: LAURA BAUTISTA ([phone]) [facility]) [address] [place] [address] CBC (HEMOGRAM)on 11-14-2024 Erythrocyte distribution width (RBC) [Ratio] 14.1 % Normal 11.5-15.0 [facility] Comment on above: Performed By: #### L AB294 ####Catering Coordinator: LAURA BAUTISTA ([phone])[facility] ([facility])[address] [place] [address] Hematocrit (Bld) [Volume fraction] 31.5 % Low 35.0-47.0 [facility] Comment on above: Performed By: #### L AB294 ####Catering Coordinator: LAURA BAUTISTA ([phone])[facility])[address] [place] [address] Hemoglobin (Bld) [Mass/Vol] 10.1 g/dL Low 11.7-16.0 [facility] Comment on above: Performed By: #### L AB294 ####Catering Coordinator: LAURA BAUTISTA ([phone])[facility])[address] [place] [address] MCH (RBC) [Entitic mass] 29.0 pg Normal 26.0-34.0 [facility] Comment on above: Performed By: #### L AB294 ####Catering Coordinator: LAURA BAUTISTA ([phone])[facility])[address] [place] [address] MCHC 32.1 % Normal 30.5-36.0 [facility] Comment on above: Performed By: #### L AB294 ####Catering Coordinator: LAURA BAUTISTA ([phone])[facility])[address] [place] [address] MCV (RBC) [Entitic vol] 90.5 fL Normal 77.0-99.0 [facility] Comment on above: Performed By: #### L AB294 ####Catering Coordinator: LAURA BAUTISTA ([phone])[facility])[address] [place] [address] Platelet mean volume (Bld) [Entitic vol] 9.6 fL Normal 9.0-12.7 [facility] Comment on above: Performed By: #### L AB294 ####Catering Coordinator: LAURA BAUTISTA ([phone])[facility])[address] [place] [address] Platelets (Bld) [#/Vol] 294 10*3/uL Normal 140-440 [facility] Comment on above: Performed By: #### L AB294 ####Catering Coordinator: LAURA BAUTISTA ([phone])[facility])[address] [place] [address] RBC (Bld) [#/Vol] 3.48 10*6/uL Low 3.80-5.20 [facility] Comment on above: Performed By: #### L AB294 ####Catering Coordinator: LAURA BAUTISTA ([phone])[facility] ([facility])[address] [place] [address] WBC (Bld) [#/Vol] 11.5 10*3/uL High 3.6-10.7 [facility] Comment on above: Performed By: #### L AB294 ####Catering Coordinator: LAURA BAUTISTA ([id number])[facility] ([facility])[address] [place] [address] Nursing Noteon 11-14-2024 Nursing Note RN called report to [facility] and spoke with Julissa. Patient IV removed, belongings gathered and prepared for discharge. 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. RD observed a bowl of raw veggies [...] On: Kcal/kg Weight Used for Energy Requirements: [employer] Weight for Energy Calculation (kg): 59 kg Total Energy Requirements (kcals/day): 9517-8757 kcal/day (25-30) Weight Used for Protein Requirements: [employer] Weight in Kg Used for Protein Requirements: 59 kg Estimated Total Protein (g/day): 59-71 g/day (1-1.2) Estimated Daily Total Fluid (ml/day): 7933-9108 ml/day Nutrition Related Findings: Nahid: 18. I&O: [...] Body Weight: (Per Epic -> 07/13/24 303#, 7/29 300# stated) [employer] Body Weight (lbs) (Calculated): 130 lbs [employer] Body Weight (Kg) (Calculated): 59 kg % [employer] Body Weight (Calculated): 250.8 % BMI (kg/m2) [...] soon to determine Monica Felix RD Contact: *[phone] Normal [facility] BASIC METABOLIC PANELon 10-21 Anion gap [Moles/Vol] 4 mmol/L Normal 3-13 [facility] Comment on above: Performed By: #### L AB106, LAB15, [id number] ####Catering Coordinator: LAURA BAUTISTA ([phone])[address] Calcium [Mass/Vol] 7.7 mg/dL Low 8.8-10.0 [facility] Comment on above: Performed By: #### L AB106, LAB15, [id number] ####Catering Coordinator: LAURA BAUTISTA ([phone])[facility])[address] [place] [address] Chloride [Moles/Vol] 117 mmol/L High 98-107 [facility] Comment on above: Performed By: #### L AB106, LAB15, [id number] ####Catering Coordinator: LAURA BAUTISTA ([phone])[facility])[address] [place] [address] CO2 [Moles/Vol] 19 mmol/L Low 23-31 [facility] Comment on above: Performed By: #### L AB106, LAB15, [id number] ####Catering Coordinator: LAURA BAUTISTA ([id number])[facility])[address] [place] [address] Creatinine [Mass/Vol] 2.37 mg/dL High 0.57-1.11 [facility] Comment on above: Performed By: #### L AB106, LAB15, [id number] ####Catering Coordinator: LAURA BAUTISTA ([id number])[facility])[address] [place] [address] GLOMERULAR FILTRATION RATE ML/MIN/1.73 SQ M.PREDICTED 22.7 mL/min/1.73m*2 Low >60.0 [facility] Comment on above: Result Comment: Calc ulation based on the Chronic Kidney Disease Epidemiology Collaboration (CKD-EPI) equation refit without adjustment for race Performed By: #### L AB106, LAB15, [id number] ####Catering Coordinator: LAURA BAUTISTA ([phone])[facility])[address] [place] [address] Glucose [Mass/Vol] 119 mg/dL High 82-115 [facility] Comment on above: Performed By: #### L AB106, LAB15, [id number] ####Catering Coordinator: LAURA BAUTISTA ([phone])[address] Potassium [Moles/Vol] 5.0 mmol/L Normal 3.5-5.1 [facility] Comment on above: Result Comment: [facility] potassium values may be up to 0.5 mmol/L lower than serum values. Performed By: #### L AB106, LAB15, [id number] ####Catering Coordinator: LAURA BAUTISTA ([id number])[facility])[address] [place] [address] Sodium [Moles/Vol] 140 mmol/L Normal 136-145 [facility] Comment on above: Performed By: #### L AB106, LAB15, [id number] ####Catering Coordinator: LAURA BAUTISTA ([id number])[facility])[address] [place] [address] Urea nitrogen [Mass/Vol] 51 mg/dL High 9-23 [facility] Comment on above: Performed By: #### L AB106, LAB15, [id number] ####Catering Coordinator: LAURA BAUTISTA ([id number])[facility])[address] [place] [address] CBC WITH AUTO DIFFERENTIALon 11-13-2024 Erythrocyte distribution width (RBC) [Ratio] 13.9 % Normal 11.5-15.0 [facility] Comment on above: Performed By: #### L AB90 #### Catering Coordinator: LAURA BAUTISTA ([phone]) [facility]) [address] [place] [address] Hematocrit (Bld) [Volume fraction] 30.6 % Low 35.0-47.0 [facility] Comment on above: Performed By: #### L AB90 #### Catering Coordinator: LAURA BAUTISTA ([id number]) [facility]) [address] [place] [address] Hemoglobin (Bld) [Mass/Vol] 9.9 g/dL Low 11.7-16.0 [facility] Comment on above: Performed By: #### L AB90 #### Catering Coordinator: LAURA BAUTISTA ([id number]) [facility]) [address] [place] [address] MCH (RBC) [Entitic mass] 28.9 pg Normal 26.0-34.0 [facility] Comment on above: Performed By: #### L AB90 #### Catering Coordinator: LAURA BAUTISTA ([phone]) [facility]) [address] [place] [address] MCHC 32.4 % Normal 30.5-36.0 [facility] Comment on above: Performed By: #### L AB90 #### Catering Coordinator: LAURA BAUTISTA ([id number]) [facility]) [address] [place] [address] MCV (RBC) [Entitic vol] 89.5 fL Normal 77.0-99.0 [facility] Comment on above: Performed By: #### L AB90 #### Catering Coordinator: LAURA BAUTISTA ([phone]) [facility]) [address] [place] [address] Platelet mean volume (Bld) [Entitic vol] 9.1 fL Normal 9.0-12.7 [facility] Comment on above: Performed By: #### L AB90 #### Catering Coordinator: LAURA BAUTISTA ([id number]) [facility] ([facility]) [address] [place] [address] Platelets (Bld) [#/Vol] 298 10*3/uL Normal 140-440 [facility] Comment on above: Performed By: #### L AB90 #### Catering Coordinator: LAURA BAUTISTA ([id number]) [facility]) [address] [place] [address] RBC (Bld) [#/Vol] 3.42 10*6/uL Low 3.80-5.20 [facility] Comment on above: Performed By: #### L AB90 #### Catering Coordinator: LAURA BAUTISTA ([id number]) [facility]) [address] [place] [address] WBC (Bld) [#/Vol] 12.9 10*3/uL High 3.6-10.7 [facility] Comment on above: Performed By: #### L AB90 #### Catering Coordinator: LAURA BAUTISTA ([phone]) [facility]) [address] [place] [address] MANUAL DIFFERENTIALon 2024 BAND NEUTROPHILS TOTAL PER COUNTED LEUKOCYTES BY MANUAL COUNT 9 Normal [facility] Comment on above: Performed By: #### L AB90 #### Catering Coordinator: LAURA BAUTISTA ([phone]) [facility]) [address] [place] [address] BANDS 0.6 10*3/uL High <=0.0 [facility] Comment on above: Performed By: #### L AB90 #### Catering Coordinator: LAURA BAUTISTA ([phone]) [facility] ([facility]) [address] [place] [address] [place] BASOPHILS (10*3/UL) IN BLOOD BY MANUAL COUNT 0.2 10*3/uL Normal 0.0-0.2 [facility] Comment on above: Performed By: #### L AB90 #### Catering Coordinator: LAURA BAUTISTA ([phone]) [facility] ([facility]) [address] [place] [address] [place] BASOPHILS TOTAL PER COUNTED LEUKOCYTES BY MANUAL COUNT 3 Normal [facility] Comment on above: Performed By: #### L AB90 #### Catering Coordinator: LAURA BAUTISTA ([phone]) [facility] ([facility]) [address] [place] [address] [place] BASOPHILS/100 LEUKOCYTES IN BLOOD BY MANUAL COUNT 2 % Normal 0-2 [facility] Comment on above: Performed By: #### L AB90 #### Catering Coordinator: LAURA BAUTISTA ([phone]) [facility] ([facility]) [address] [place] [address] [place] CELLS COUNTED TOTAL (#) IN BLOOD 200 Normal [facility] Comment on above: Performed By: #### L AB90 #### Catering Coordinator: LAURA BAUTISTA ([phone]) [facility] ([facility]) [address] [place] [address] [place] EOSINOPHILS (10*3/UL) IN BLOOD BY MANUAL COUNT 1.5 10*3/uL High 0.0-0.5 [facility] Comment on above: Performed By: #### L AB90 #### Catering Coordinator: LAURA BAUTISTA ([id number]) [facility] ([facility]) [address] [place] [address] [place] EOSINOPHILS TOTAL PER COUNTED LEUKOCYTES BY MANUAL COUNT 23 High 0-1 [facility] Comment on above: Performed By: #### L AB90 #### Catering Coordinator: LAURA BAUTISTA ([phone]) [facility]) [address] [place] [address] [place] EOSINOPHILS/100 LEUKOCYTES IN BLOOD BY MANUAL COUNT 12 % High 0-6 [facility] Comment on above: Performed By: #### L AB90 #### Catering Coordinator: LAURA BAUTISTA ([phone]) [facility]) [address] [place] [address] [place] LEUKOCYTE MORPHOLOGY FINDING IN BLOOD Normal Normal [facility] Comment on above: Performed By: #### L AB90 #### Catering Coordinator: LAURA BAUTISTA ([phone]) [facility]) [address] [place] [address] [place] LEUKOCYTES (10*3/UL) NUCLEATED ERYTHROCYTE ADJUST 12.9 10*3/uL High 3.6-10.7 [facility] Comment on above: Performed By: #### L AB90 #### Catering Coordinator: LAURA BAUTISTA ([phone]) [facility]) [address] [place] [address] [place] LYMPHOCYTES (10*3/UL) IN BLOOD BY MANUAL COUNT 2.8 10*3/uL Normal 1.0-4.3 [facility] Comment on above: Performed By: #### L AB90 #### Catering Coordinator: LAURA BAUTISTA ([phone]) [facility]) [address] [place] [address] [place] LYMPHOCYTES TOTAL PER COUNTED LEUKOCYTES BY MANUAL COUNT 43 Normal [facility] Comment on above: Performed By: #### L AB90 #### Catering Coordinator: LAURA BAUTISTA ([phone]) [facility]) [address] [place] [address] [place] LYMPHOCYTES/100 LEUKOCYTES IN BLOOD BY MANUAL COUNT 22 % Normal 15-45 [facility] Comment on above: Performed By: #### L AB90 #### Catering Coordinator: LAURA BAUTISTA ([phone]) [facility]) [address] [place] [address] [place] METAMYELOCYTES (10*3/UL) IN BLOOD BY MANUAL COUNT 0.3 10*3/uL High <=0.0 [facility] Comment on above: Performed By: #### L AB90 #### Catering Coordinator: LAURA [id number]) [facility] ([facility]) [address] [place] [address] [place] METAMYELOCYTES TOTAL PER COUNTED LEUKOCYTES BY MANUAL COUNT 4 Normal [facility] Comment on above: Performed By: #### L AB90 #### Catering Coordinator: LAURA BAUTISTA ([phone]) [facility] ([facility]) [address] [place] [address] [place] METAMYELOCYTES/100 LEUKOCYTES IN BLOOD BY MANUAL COUNT 2 % High <=0 [facility] Comment on above: Performed By: #### L AB90 #### Catering Coordinator: LAURA BAUTISTA ([phone]) [facility] ([facility]) [address] [place] [address] [place] MONOCYTES (10*3/UL) IN BLOOD BY MANUAL COUNT 0.6 10*3/uL Normal 0.0-0.9 [facility] Comment on above: Performed By: #### L AB90 #### Catering Coordinator: LAURA BAUTISTA ([phone]) [facility] ([facility]) [address] [place] [address] [place] MONOCYTES TOTAL PER COUNTED LEUKOCYTES BY MANUAL COUNT 9 Normal [facility] Comment on above: Performed By: #### L AB90 #### Catering Coordinator: LAURA BAUTISTA ([phone]) [facility] ([facility]) [address] [place] [address] [place] MONOCYTES/100 LEUKOCYTES IN BLOOD BY MANUAL COUNT 5 % Normal 5-13 [facility] Comment on above: Performed By: #### L AB90 #### Catering Coordinator: LAURA BAUTISTA ([phone]) [facility] ([facility]) [address] [place] [address] [place] MYELOCYTES (10*3/UL) IN BLOOD BY MANUAL COUNT 0.1 10*3/uL High <=0.0 [facility] Comment on above: Performed By: #### L AB90 #### Catering Coordinator: LAURA BAUTISTA ([phone]) [facility] ([facility]) [address] [place] [address] [place] MYELOCYTES COUNTED BY MANUAL COUNT 2 Normal [facility] Comment on above: Performed By: #### L AB90 #### Catering Coordinator: LAURA BAUTISTA ([phone]) [facility] ([facility]) [address] [place] [address] [place] MYELOCYTES/100 LEUKOCYTES IN BLOOD BY MANUAL COUNT 1 % High <=0 [facility] Comment on above: Performed By: #### L AB90 #### Catering Coordinator: LAURA BAUTISTA ([phone]) [facility]) [address] [place] [address] [place] NEUTROPHILS (SEGS+BANDS) (10*3/UL) BY MANUAL COUNT 7.5 10*3/uL High 1.8-7.0 [facility] Comment on above: Performed By: #### L AB90 #### Catering Coordinator: LAURA BAUTISTA ([id number]) [facility]) [address] [place] [address] [place] NEUTROPHILS BAND FORM/100 LEUKOCYTES IN BLOOD BY MANUAL COUNT 5 % High <=0 [facility] Comment on above: Performed By: #### L AB90 #### Catering Coordinator: LAURA BAUTISTA ([phone]) [facility]) [address] [place] [address] [place] NEUTROPHILS TOTAL PER COUNTED LEUKOCYTES BY MANUAL COUNT 107 Normal [facility] Comment on above: Performed By: #### L AB90 #### Catering Coordinator: LAURA BAUTISTA ([phone]) [facility]) [address] [place] [address] [place] PLATELET MORPHOLOGY IN BLOOD Normal Normal [facility] Comment on above: Performed By: #### L AB90 #### Catering Coordinator: LAURA BAUTISTA ([phone]) [facility]) [address] [place] [address] [place] RBC MORPHOLOGY IN BLOOD Normal Normal [facility] Comment on above: Performed By: #### L AB90 #### Catering Coordinator: LAURA BAUTISTA ([phone]) [facility]) [address] [place] [address] [place] SEGEMENTED NEUTROPHILS/100 LEUKOCYTES BY MANUAL COUNT 54 % Normal 38-82 [facility] Comment on above: Performed By: #### L AB90 #### Catering Coordinator: LAURA BAUTISTA ([phone]) [facility]) [address] [place] [address] SEGMENTED NEUTROPHILS (10*3/UL)IN BLOOD BY MANUAL COUNT 7.5 10*3/uL Normal 1.8-7.5 [facility] Comment on above: Performed By: #### L AB90 #### Catering Coordinator: LAURA BAUTISTA ([phone]) [facility] ([facility]) [address] [place] [address] NT PRO BNPon 11-13-2024 Natriuretic peptide B (Bld) [Mass/Vol] 658 pg/mL High <125 [facility] Comment on above: Performed By: #### L AB106, LAB15, [id number] ####Catering Coordinator: LAURA BAUTISTA ([phone])[facility] ([facility])[address] [place] [address] PROCALCITONIN TESTon 025 PROCALCITONIN 0.11 ng/mL High <0.07 [facility] Comment on above: Result Comment: MITRA Hargrove COMMENTS: PCT <0.50 = Low risk of severe sepsis and/or septic shock. PCT >2.00 = High risk of severe sepsis and/or septic shock. Performed By: #### L AB106, LAB15, [id number] ####Catering Coordinator: LAURA BAUTISTA ([phone])[facility] ([facility])[address] [place] [address] [place] RETROPERITONEUM LIMITEDon 11-13-2024 US RETROPERITONEUM LIMITED [...] Signed Date/Time: 11/13/2024 8:23 AM EDT Normal [facility] BASIC METABOLIC PANELon 08-2 Anion gap [Moles/Vol] 6 mmol/L Normal 3-13 [facility] Comment on above: Performed By: #### L AB90 #### Catering Coordinator: LAURA BAUTISTA ([phone]) [facility] ([facility]) [address] [place] [address] Calcium [Mass/Vol] 7.7 mg/dL Low 8.8-10.0 [facility] Comment on above: Performed By: #### L AB90 #### Catering Coordinator: LAURA BAUTISTA ([phone]) [facility] ([facility]) [address] [place] [address] [place] Chloride [Moles/Vol] 116 mmol/L High 98-107 [facility] Comment on above: Performed By: #### L AB90 #### Catering Coordinator: LAURA BAUTISTA ([phone]) [facility] ([facility]) [address] [place] [address] [place] CO2 [Moles/Vol] 18 mmol/L Low 23-31 [facility] Comment on above: Performed By: #### L AB90 #### Catering Coordinator: LAURA BAUTISTA ([phone]) [facility] [address] [place] [address] Creatinine [Mass/Vol] 2.62 mg/dL High 0.57-1.11 [facility] Comment on above: Performed By: #### L AB90 #### Catering Coordinator: LAURA BAUTISTA ([phone]) [facility]) [address] [place] [address] GLOMERULAR FILTRATION RATE ML/MIN/1.73 SQ M.PREDICTED 20.1 mL/min/1.73m*2 Low >60.0 [facility] Comment on above: Result Comment: Calc ulation based on the Chronic Kidney Disease Epidemiology Collaboration (CKD-EPI) equation refit without adjustment for race Performed By: #### L AB90 #### Catering Coordinator: LAURA BAUTISTA ([phone]) [facility]) [address] [place] [address] Glucose [Mass/Vol] 156 mg/dL High 82-115 [facility] Comment on above: Performed By: #### L AB90 #### Catering Coordinator: LAURA BAUTISTA ([phone]) [facility]) [address] [place] [address] Potassium [Moles/Vol] 5.1 mmol/L Normal 3.5-5.1 [facility] Comment on above: Result Comment: [facility] potassium values may be up to 0.5 mmol/L lower than serum values. Performed By: #### L AB90 #### Catering Coordinator: LAURA BAUTISTA ([phone]) [facility]) [address] [place] [address] [place] Sodium [Moles/Vol] 140 mmol/L Normal 136-145 [facility] Comment on above: Performed By: #### L AB90 #### Catering Coordinator: LAURA BAUTISTA ([phone]) [facility]) [address] [place] [address] [place] Urea nitrogen [Mass/Vol] 67 mg/dL High 9-23 [facility] Comment on above: Performed By: #### L AB90 #### Catering Coordinator: LAURA BAUTISTA ([phone]) [facility]) [address] [place] [address] [place] Anion gap [Moles/Vol] 5 mmol/L Normal 3-13 [facility] Comment on above: Performed By: #### L AB15 ####Catering Coordinator: LAURA BAUTISTA ([phone])[facility] ([facility])[address] Calcium [Mass/Vol] 7.4 mg/dL Low 8.8-10.0 [facility] Comment on above: Performed By: #### L AB15 ####Catering Coordinator: LAURA BAUTISTA ([phone])[facility] ([facility])[address] [place] [address] [place] Chloride [Moles/Vol] 115 mmol/L High 98-107 [facility] Comment on above: Performed By: #### L AB15 ####Catering Coordinator: LAURA BAUTISTA ([phone])[facility] ([facility])[address] CO2 [Moles/Vol] 16 mmol/L Low 23-31 [facility] Comment on above: Performed By: #### L AB15 ####Catering Coordinator: LAURA BAUTISTA ([phone])[facility] ([facility])[address] Creatinine [Mass/Vol] 2.82 mg/dL High 0.57-1.11 [facility] Comment on above: Performed By: #### L AB15 ####Catering Coordinator: LAURA BAUTISTA ([phone])[facility] ([facility])[address] [place] [address] [place] GLOMERULAR FILTRATION RATE ML/MIN/1.73 SQ M.PREDICTED 18.4 mL/min/1.73m*2 Low >60.0 [facility] Comment on above: Result Comment: Calc ulation based on the Chronic Kidney Disease Epidemiology Collaboration (CKD-EPI) equation refit without adjustment for race Performed By: #### L AB15 ####Catering Coordinator: LAURA BAUTISTA ([phone])[facility] ([facility])[address] [place] [address] [place] Glucose [Mass/Vol] 410 mg/dL High 82-115 [facility] Comment on above: Performed By: #### L AB15 ####Catering Coordinator: LAURA BAUTISTA ([phone])[facility] ([facility])[address] [place] [address] [place] Potassium [Moles/Vol] 5.8 mmol/L High 3.5-5.1 [facility] Comment on above: Result Comment: [facility] potassium values may be up to 0.5 mmol/L lower than serum values. Performed By: #### L AB15 ####Catering Coordinator: LAURA BAUTISTA ([phone])[facility] ([facility])[address] Sodium [Moles/Vol] 136 mmol/L Normal 136-145 [facility] Comment on above: Performed By: #### L AB15 ####Catering Coordinator: LAURA BAUTISTA ([phone])[facility] ([facility])[address] Urea nitrogen [Mass/Vol] 70 mg/dL High 9-23 [facility] Comment on above: Performed By: #### L AB15 ####Catering Coordinator: LAURA BAUTISTA ([phone])[facility] ([facility])[address] [place] [address] [place] BETA HYDROXYBUTYRATEon 11-12 BETA HYDROXYBUTYRATE 0.6 mg/dL Normal <=2.8 [facility] Comment on above: Performed By: #### L AB17, [id number], [id number] ####Catering Coordinator: LAURA BAUTISTA ([phone])[facility] ([facility])[address] BLOOD GAS, VENOUS (SWR AND S HC)on 11-12-2024 AMOUNT OF OXYGEN 0 Normal [facility] Comment on above: Performed By: #### L AB90 #### Catering Coordinator: LAURA BAUTISTA ([phone]) [facility] ([facility]) [address] [place] [address] BASE EXCESS (MMOL/L) IN VENOUS BLOOD -10.0 mmol/L Low -3.0-3.0 [facility] Comment on above: Performed By: #### L AB90 #### Catering Coordinator: LAURA BAUTISTA ([phone]) [facility] ([facility]) [address] [place] [address] CARBON DIOXIDE (MM HG) IN VENOUS BLOOD 36 mm(Hg) Low 40-55 [facility] Comment on above: Performed By: #### L AB90 #### Catering Coordinator: LAURA BAUTISTA ([phone]) [facility] [address] [place] [address] CO2 [Moles/Vol] 18.0 mmol/L Low 24.0-28.0 [facility] Comment on above: Performed By: #### L AB90 #### Catering Coordinator: LAURA BAUTISTA ([phone]) [facility]) [address] [place] [address] [place] HCO3 (Bld) [Moles/Vol] 17.1 mmol/L Low 23.0-27.0 [facility] Comment on above: Performed By: #### L AB90 #### Catering Coordinator: LAURA BAUTISTA ([phone]) [facility] ([facility]) [address] [place] [address] [place] OXYGEN (MM HG) IN VENOUS BLOOD 51 mm(Hg) Normal [facility] Comment on above: Performed By: #### L AB90 #### Catering Coordinator: LAURA BAUTISTA ([phone]) [facility]) [address] [place] [address] [place] OXYGEN SATURATION (%) IN VENOUS BLOOD 82.0 % High 60.0-80.0 [facility] Comment on above: Performed By: #### L AB90 #### Catering Coordinator: LAURA BAUTISTA ([phone]) [facility] ([facility]) [address] [place] [address] pH (Bld) 7.282 [pH] Low 7.310-7.410 [facility] Comment on above: Performed By: #### L AB90 #### Catering Coordinator: LAURA BUATISTA ([phone]) [facility] ([facility]) [address] [place] [address] SOURCE OF OXYGEN None (Room Air) [facility] Comment on above: Performed By: #### L AB90 #### Catering Coordinator: LAURA BAUTISTA ([phone]) [facility]) [address] [place] [address] AMOUNT OF OXYGEN 0 Normal [facility] Comment on above: Performed By: #### L AB90 #### Catering Coordinator: LAURA BAUTISTA ([phone]) [facility] [address] [place] [address] [place] BASE EXCESS (MMOL/L) IN VENOUS BLOOD -10.0 mmol/L Low -3.0-3.0 [facility] Comment on above: Performed By: #### L AB90 #### Catering Coordinator: LAURA BAUTISTA ([phone]) [facility] [address] [place] [address] CARBON DIOXIDE (MM HG) IN VENOUS BLOOD 34 mm(Hg) Low 40-55 [facility] Comment on above: Performed By: #### L AB90 #### Catering Coordinator: LAURA BAUTISTA ([phone]) [facility] [address] [place] [address] [place] CO2 [Moles/Vol] 18.0 mmol/L Low 24.0-28.0 [facility] Comment on above: Performed By: #### L AB90 #### Catering Coordinator: LAURA BAUTISTA ([phone]) [facility]) [address] [place] [address] [place] HCO3 (Bld) [Moles/Vol] 16.5 mmol/L Low 23.0-27.0 [facility] Comment on above: Performed By: #### L AB90 #### Catering Coordinator: LAURA BAUTISTA ([phone]) [facility] ([facility]) [address] [place] [address] OXYGEN (MM HG) IN VENOUS BLOOD 43 mm(Hg) Normal [facility] Comment on above: Performed By: #### L AB90 #### Catering Coordinator: LAURA BAUTISTA ([phone]) [facility]) [address] [place] [address] OXYGEN SATURATION (%) IN VENOUS BLOOD 74.0 % Normal 60.0-80.0 [facility] Comment on above: Performed By: #### L AB90 #### Catering Coordinator: LAURA BAUTISTA ([phone]) [facility] ([facility]) [address] [place] [address] pH (Bld) 7.292 [pH] Low 7.310-7.410 [facility] Comment on above: Performed By: #### L AB90 #### Catering Coordinator: LAURA BAUTISTA ([phone]) [facility] ([facility]) [address] [place] [address] SOURCE OF OXYGEN None (Room Air) Normal [facility] Comment on above: Performed By: #### L AB90 #### Catering Coordinator: LAURA BAUTISTA ([phone]) [facility]) [address] [place] [address] CBC WITH AUTO DIFFERENTIALon 11-12-2024 Erythrocyte distribution width (RBC) [Ratio] 13.8 % Normal 11.5-15.0 [facility] Comment on above: Performed By: #### L AB90 #### Catering Coordinator: LAURA BAUTISTA ([phone]) [facility] ([facility]) [address] [place] [address] Hematocrit (Bld) [Volume fraction] 30.1 % Low 35.0-47.0 [facility] Comment on above: Performed By: #### L AB90 #### Catering Coordinator: LAURA BAUTISTA ([phone]) [facility] ([facility]) [address] [place] [address] [place] Hemoglobin (Bld) [Mass/Vol] 10.1 g/dL Low 11.7-16.0 [facility] Comment on above: Performed By: #### L AB90 #### Catering Coordinator: LAURA BAUTISTA ([phone]) [facility] ([facility]) [address] [place] [address] MCH (RBC) [Entitic mass] 29.4 pg Normal 26.0-34.0 [facility] Comment on above: Performed By: #### L AB90 #### Catering Coordinator: LAURA BAUTISTA ([phone]) [facility] ([facility]) [address] [place] [address] MCHC 33.6 % Normal 30.5-36.0 [facility] Comment on above: Performed By: #### L AB90 #### Catering Coordinator: LAURA BAUTISTA ([phone]) [facility] ([facility]) [address] [place] [address] MCV (RBC) [Entitic vol] 87.8 fL Normal 77.0-99.0 [facility] Comment on above: Performed By: #### L AB90 #### Catering Coordinator: LAURA BAUTISTA ([phone]) [facility] ([facility]) [address] [place] [address] NRBC 0.0 /100 WBCs Normal 0.0-2.0 [facility] Comment on above: Performed By: #### L AB90 #### Catering Coordinator: LAURA BAUTISTA ([phone]) [facility] ([facility]) [address] [place] [address] Platelet mean volume (Bld) [Entitic vol] 9.7 fL Normal 9.0-12.7 [facility] Comment on above: Performed By: #### L AB90 #### Catering Coordinator: LAURA BAUTISTA ([phone]) [facility] ([facility]) [address] [place] [address] Platelets (Bld) [#/Vol] 323 10*3/uL Normal 140-440 [facility] Comment on above: Performed By: #### L AB90 #### Catering Coordinator: LAURA BAUTISTA ([phone]) [facility] [address] [place] [address] RBC (Bld) [#/Vol] 3.43 10*6/uL Low 3.80-5.20 [facility] Comment on above: Performed By: #### L AB90 #### Catering Coordinator: LAURA BAUTISTA ([phone]) [facility] ([facility]) [address] [place] [address] WBC (Bld) [#/Vol] 11.7 10*3/uL High 3.6-10.7 [facility] Comment on above: Performed By: #### L AB90 #### Catering Coordinator: LAURA BAUTISTA ([phone]) [facility]) [address] [place] [address] COMPLETE URINALYSIS WITH REF CRISTINA TO CULTUREon 11-12-2024 BACTERIA (#/HPF) IN URINE Few Abnormal Negative [facility] Comment on above: Performed By: #### L AB90 #### Catering Coordinator: LAURA BAUTISTA ([phone]) [facility] ([facility]) [address] [place] [address] BILIRUBIN, TOTAL PRESENCE IN URINE Negative Normal Negative [facility] Comment on above: Performed By: #### L AB90 #### Catering Coordinator: LAURA BAUTISTA ([phone]) [facility] ([facility]) [address] [place] [address] Clarity (U) Clear Normal Clear [facility] Comment on above: Performed By: #### L AB90 #### Catering Coordinator: LAURA BAUTISTA ([phone]) [facility]) [address] [place] [address] Color (U) Light Yellow Normal Lt. Yellow [facility] Comment on above: Performed By: #### L AB90 #### Catering Coordinator: LAURA BAUTISTA ([phone]) [facility]) [address] [place] [address] Glucose (U) [Mass/Vol] 150 mg/dL Abnormal Normal (<70) [facility] Comment on above: Performed By: #### L AB90 #### Catering Coordinator: LAURA BAUTISTA ([phone]) [facility] ([facility]) [address] [place] [address] HEMOGLOBIN PRESENCE IN URINE Negative Normal Negative [facility] Comment on above: Performed By: #### L AB90 #### Catering Coordinator: LAURA BAUTISTA ([phone]) [facility] ([facility]) [address] [place] [address] Ketones Ql (U) Negative Normal Negative [facility] Comment on above: Performed By: #### L AB90 #### Catering Coordinator: LAURA BAUTISTA ([id number]) [facility] ([facility]) [address] [place] [address] LEUKOCYTE ESTERASE PRESENCE IN URINE BY TEST STRIP Negative Normal Negative [facility] Comment on above: Performed By: #### L AB90 #### Catering Coordinator: LAURA BAUTISTA ([phone]) [facility] ([facility]) [address] [place] [address] NITRITE PRESENCE IN URINE Negative Normal Negative [facility] Comment on above: Performed By: #### L AB90 #### Catering Coordinator: LAURA BAUTISTA ([phone]) [facility] ([facility]) [address] [place] [address] pH (U) 5.5 [pH] Normal 5.0-8.0 [facility] Comment on above: Performed By: #### L AB90 #### Catering Coordinator: LAURA BAUTISTA ([phone]) [facility] ([facility]) [address] [place] [address] Protein (U) [Mass/Vol] 100 mg/dL Abnormal Negative [facility] Comment on above: Performed By: #### L AB90 #### Catering Coordinator: LAURA BAUTISTA ([phone]) [facility] ([facility]) [address] [place] [address] RBC (#/HPF) IN URINE SEDIMENT 0-2 Normal 0-2 [facility] Comment on above: Performed By: #### L AB90 #### Catering Coordinator: LAURA BAUTISTA ([phone]) [facility] ([facility]) [address] [place] [address] Specific gravity (U) [Rel density] 1.015 Normal 1.005-1.030 [facility] Comment on above: Result Comment: MITRA R COMMENTS: A specimen with <=10 WBC is not consistent with inflammation. This specimen will not reflex to a urine culture. Performed By: #### L AB90 #### Catering Coordinator: LAURA BAUTISTA ([phone]) [facility] [address] [place] [address] SQUAMOUS EPITHELIAL CELLS (#/HPF) IN URINE SEDIMENT 0-2 Normal 3-5 [facility] Comment on above: Performed By: #### L AB90 #### Catering Coordinator: LAURA BAUITSTA ([phone]) [facility] ([facility]) [address] [place] [address] UROBILINOGEN (MG/DL) IN URINE Normal Normal Normal (0-1) [facility] Comment on above: Performed By: #### L AB90 #### Catering Coordinator: LAURA BAUTISTA ([phone]) [facility] ([facility]) [address] [place] [address] WBC (LEUKOCYTE) (#/HPF) IN URINE SEDIMENT 0-2 Normal 0-5 [facility] Comment on above: Performed By: #### L AB90 #### Catering Coordinator: LAURA BAUTISTA ([phone]) [facility] ([facility]) [address] [place] [address] [place] BACTERIA (#/HPF) IN URINE Few Abnormal Negative [facility] Comment on above: Performed By: #### L AB90 #### Catering Coordinator: LAURA BAUTISTA ([phone]) [facility]) [address] [place] [address] BILIRUBIN, TOTAL PRESENCE IN URINE Negative Normal Negative [facility] Comment on above: Performed By: #### L AB90 #### Catering Coordinator: LAURA BAUTISTA ([phone]) [facility]) [address] [place] [address] [place] Clarity (U) Clear Normal Clear [facility] Comment on above: Performed By: #### L AB90 #### Catering Coordinator: LAURA BAUTISTA ([phone]) [facility] [address] [place] [address] Color (U) Colorless Normal Lt. Yellow [facility] Comment on above: Performed By: #### L AB90 #### Catering Coordinator: LAURA BAUTISTA ([phone]) [facility] [address] [place] [address] GLUCOSE (MG/DL) IN URINE >1,000 Abnormal Normal (<70) [facility] Comment on above: Performed By: #### L AB90 #### Catering Coordinator: LAURA BAUTISTA ([phone]) [facility] [address] [place] [address] HEMOGLOBIN PRESENCE IN URINE Negative Normal Negative [facility] Comment on above: Performed By: #### L AB90 #### Catering Coordinator: LAURA BAUTISTA ([phone]) [facility] [address] [place] [address] [place] Ketones Ql (U) Negative Normal Negative [facility] Comment on above: Performed By: #### L AB90 #### Catering Coordinator: LAURA BAUTISTA ([phone]) [facility] [address] [place] [address] [place] LEUKOCYTE ESTERASE PRESENCE IN URINE BY TEST STRIP Negative Normal Negative [facility] Comment on above: Performed By: #### L AB90 #### Catering Coordinator: LAURA BAUTISTA ([id number]) [facility] [address] [place] [address] [place] NITRITE PRESENCE IN URINE Negative Normal Negative [facility] Comment on above: Performed By: #### L AB90 #### Catering Coordinator: LAURA BAUTISTA ([phone]) [facility] [address] [place] [address] [place] pH (U) 5.5 [pH] Normal 5.0-8.0 [facility] Comment on above: Performed By: #### L AB90 #### Catering Coordinator: LAURA BAUTISTA ([phone]) [facility]) [address] [place] [address] Protein (U) [Mass/Vol] 100 mg/dL Abnormal Negative [facility] Comment on above: Performed By: #### L AB90 #### Catering Coordinator: LAURA BAUTISTA ([phone]) [facility]) [address] [place] [address] RBC (#/HPF) IN URINE SEDIMENT Negative Normal 0-2 [facility] Comment on above: Performed By: #### L AB90 #### Catering Coordinator: LAURA BAUTISTA ([phone]) [facility]) [address] [place] [address] Specific gravity (U) [Rel density] 1.017 Normal 1.005-1.030 [facility] Comment on above: Result Comment: MITRA Hargrove COMMENTS: A specimen with <=10 WBC is not consistent with inflammation. This specimen will not reflex to a urine culture. Performed By: #### L AB90 #### Catering Coordinator: LAURA BAUTISTA ([phone]) [facility]) [address] [place] [address] Specimen volume (U) 12 mL Normal [facility] Comment on above: Performed By: #### L AB90 #### Catering Coordinator: LAURA BAUTISTA ([phone]) [facility]) [address] [place] [address] SQUAMOUS EPITHELIAL CELLS (#/HPF) IN URINE SEDIMENT 3-5 Normal 3-5 [facility] Comment on above: Performed By: #### L AB90 #### Catering Coordinator: LAURA BAUTISTA ([phone]) [facility]) [address] [place] [address] UROBILINOGEN (MG/DL) IN URINE Normal Normal Normal (0-1) [facility] Comment on above: Performed By: #### L AB90 #### Catering Coordinator: LAURA BAUTISTA ([phone]) [facility] ([facility]) [address] WBC (LEUKOCYTE) (#/HPF) IN URINE SEDIMENT Negative Normal 0-5 [facility] Comment on above: Performed By: #### L AB90 #### Catering Coordinator: LAURA ABUTISTA ([phone]) [facility] ([facility]) [address] COMPREHENSIVE METABOLIC PANE Aamir 11-12-2024 Albumin [Mass/Vol] 2.6 g/dL Low 3.4-4.8 [facility] Comment on above: Performed By: #### L AB17, [id number], [id number] ####Catering Coordinator: LAURA BAUTISTA ([phone])[facility] ([facility])[address] ALP [Catalytic activity/Vol] 58 U/L Normal 40-150 [facility] Comment on above: Performed By: #### L AB17, [id number], [id number] ####Catering Coordinator: LAURA BAUTISTA ([phone])[facility]ILL[facility] ([facility])[address] [place] [address] ALT [Catalytic activity/Vol] 10 U/L Normal <30 [facility] Comment on above: Performed By: #### L AB17, [id number], [id number] ####Catering Coordinator: LAURA BAUTISTA ([phone])[facility] SOUTHRamón QUINTANILLASAM R[place]TMAN (SWRLAB)[address] Anion gap [Moles/Vol] 8 mmol/L Normal 3-13 [facility] Comment on above: Performed By: #### L AB17, [id number], [id number] ####Catering Coordinator: LAURA BAUTISTA ([phone])[facility] SOUTHRamón QUINTANILLASAM [place]AN (SWRLAB)[address] AST [Catalytic activity/Vol] 27 U/L Normal <34 [facility] Comment on above: Performed By: #### L AB17, [id number], [id number] ####Catering Coordinator: LAURA BAUTISTA ([phone])[facility] (SWRLAB)[address] [place], [place] [address] [place] Bilirubin [Mass/Vol] 0.2 mg/dL Normal <1.2 [facility] Comment on above: Performed By: #### Jaky CHAUHAN, [id number], [id number] ####Catering Coordinator: LAURA BAUTISTA ([phone])[facility] (SWRLAB)[address] Calcium [Mass/Vol] 7.5 mg/dL Low 8.8-10.0 [facility] Comment on above: Performed By: #### Jaky CHAUHAN, [id number], [id number] ####Catering Coordinator: LAURA BAUTISTA ([phone])[facility]Ramón [facility]ARG[facility] (SWRLAB)[address] [place] [address] [place] Chloride [Moles/Vol] 112 mmol/L High 98-107 [facility] Comment on above: Performed By: #### Jaky CHAUHAN, [id number], [id number] ####Catering Coordinator: LAURA BAUTISTA ([phone])[facility] (SWRLAB)[address] [place] [address] [place] CO2 [Moles/Vol] 16 mmol/L Low 23-31 [facility] Comment on above: Performed By: #### Jaky CAHUHAN, [id number], [id number] ####Catering Coordinator: LAURA BAUTISTA ([phone])[facility] (SWRLAB)[address] [place] [address] [place] Creatinine [Mass/Vol] 3.00 mg/dL High 0.57-1.11 [facility] Comment on above: Performed By: #### Jaky CHAUHAN, [id number], [id number] ####Catering Coordinator: LAURA BAUTISTA ([id number])[facility]ón [facility] (SWRLAB)[address] [place] [address] GLOMERULAR FILTRATION RATE ML/MIN/1.73 SQ M.PREDICTED 17.1 mL/min/1.73m*2 Low >60.0 [facility] Comment on above: Result Comment: Calc ulation based on the Chronic Kidney Disease Epidemiology Collaboration (CKD-EPI) equation refit without adjustment for race Performed By: #### Jaky AB17, [id number], [id number] ####Catering Coordinator: LAURA BAUTISTA ([phone])[facility]THRamón WARDTMAN (SWRLAB)[address] [place] [address] Glucose [Mass/Vol] 523 mg/dL Critically high 82-115 [facility] Comment on above: Performed By: #### Jaky [id number], [id number], [id number] ####Catering Coordinator: LAURA BAUTISTA ([phone])[facility]Ramón [facility] (SWRLAB)[address] [place] [address] Potassium [Moles/Vol] 5.8 mmol/L High 3.5-5.1 [facility] Comment on above: Result Comment: [facility] potassium values may be up to 0.5 mmol/L lower than serum values. Performed By: #### Jaky CHAUHAN, [id number], [id number] ####Catering Coordinator: LAURA BAUTISTA ([id number])[facility]THRam[facility] (SWRLAB)[address] [place] [address] Protein [Mass/Vol] 6.1 g/dL Low 6.4-8.3 [facility] Comment on above: Performed By: #### Jaky AB17, [id number], [id number] ####Catering Coordinator: LAURA BAUTISTA ([id number])[facility]THRamón [facility]AN (SWRLAB)[address] [place] [address] [place] Sodium [Moles/Vol] 136 mmol/L Normal 136-145 [facility] Comment on above: Performed By: #### Jaky AB17, [id number], [id number] ####Catering Coordinator: LAURA BAUTISTA ([phone])[facility] (SW[facility])[address] Urea nitrogen [Mass/Vol] 74 mg/dL High 12-12 [facility] Comment on above: Performed By: #### L AB17, [id number], [id number] ####Catering Coordinator: LAURA BAUTISTA ([id number])[facility] (SWRLAB)[address] ECG 12-LEADon 11-12-2024 ECG 12-LEAD IMPRESSION: Sinus rhythm Low voltage, precordial leads Consider anterior infarct Compared to ECG 10/17/24 No significant change Electronically Signed On 11-12-2024 04:08:27 EDT by Grzegorz Guillen [facility] ED Nursing Noteon 11-12-2024 ED Nursing Note Re-adjusted pt in be d, pt states feels a little better. Pt updated on ETA of squad. Call light within reach, no other needs at this time. Normal [facility] ED Nursing Note Report called to Iesha URBANO at [facility] Normal [facility] ED Nursing Note Attempted report, on hold for 10min without a nurse answering phone. Will call back. Normal [facility] HEMOGLOBIN A1Con 11-12-2024 Glucose [Mass/Vol] 212 mg/dL Normal [facility] Comment on above: Result Comment: MITRA Hargrove COMMENTS: HbA1c values of 5.7-6.4 percent indicate an increased risk for developing diabetes mellitus. HbA1c values greater than or equal to 6.5 percent are diagnostic of diabetes mellitus. For diagnosis of diabetes in individuals without unequivocal hyperglycemia, results should be confirmed by repeat testing. Performed By: #### L [id number] #### Catering Coordinator: LAURA BAUTISTA ([id number]) [facility] ([facility]) [address] [place] [address] HEMOGLOBIN A1C 9.0 %HbA1C High <5.7 [facility] Comment on above: Result Comment: Norm al less than 5.7% Prediabetes 5.7% to 6.4% Diabetes 6.5% or higher --HgbA1C levels may not be accurate in patients who have renal disease, received recent blood transfusions, are anemic, or who have dyshemoglobinemia. Performed By: #### L [id number] #### Catering Coordinator: LAURA BAUTISTA ([phone]) [facility] ([facility]) [address] [place] [address] HIGH SENSITIVITY TROPONIN, S ERIAL BASELINEon 11-12-2024 TROPONIN HS SERIAL BASELINE 7 ng/L Normal <=14 [facility] Comment on above: Result Comment: In i ndividuals presenting with symptoms > 2h, a baseline troponin <= 5 ng/L suggests acute cardiac injury is unlikely and further serial testing is generally not indicated. Performed By: #### L [id number] #### Catering Coordinator: LAURA BAUTISTA ([phone]) [facility] ([facility]) [address] [place] [address] TROPONIN HS SERIAL BASELINE 4 ng/L Normal <=14 [facility] Comment on above: Result Comment: In i ndividuals presenting with symptoms > 2h, a baseline troponin <= 5 ng/L suggests acute cardiac injury is unlikely and further serial testing is generally not indicated. Performed By: #### L AB17, [id number], [id number] ####Catering Coordinator: LAURA BAUTISTA ([id number])[facility] ([id number] HIGH SENSITIVITY TROPONIN, S ERIAL, SECOND TESTon 11-12-2024 2H TROPONIN HS (SERIAL 2ND TROPONIN) 6 ng/L Normal <=14 [facility] Comment on above: Result Comment: Risi ng or falling troponin delta below 2 ng/L as compared to baseline value suggests that acute cardiac injury is unlikely. Performed By: #### L [id number] #### Catering Coordinator: LAURA BAUTISTA ([phone]) [facility]) [address] [place] [address] MANUAL DIFFERENTIALon 2024 BAND NEUTROPHILS TOTAL PER COUNTED LEUKOCYTES BY MANUAL COUNT 2 Normal [facility] Comment on above: Performed By: #### L [id number] #### Catering Coordinator: LAURA BAUTISTA ([phone]) [facility]) [address] [place] [address] BANDS 0.2 10*3/uL High <=0.0 [facility] Comment on above: Performed By: #### L [id number] #### Catering Coordinator: LAURA BAUTISTA ([phone]) [facility] ([facility]) [address] [place] [address] [place] BASOPHILS (10*3/UL) IN BLOOD BY MANUAL COUNT 0.4 10*3/uL High 0.0-0.2 [facility] Comment on above: Performed By: #### L [id number] #### Catering Coordinator: LAURA BAUTISTA ([id number]) [facility] ([facility]) [address] [place] [address] [place] BASOPHILS TOTAL PER COUNTED LEUKOCYTES BY MANUAL COUNT 3 Normal [facility] Comment on above: Performed By: #### L [id number] #### Catering Coordinator: LAURA BAUTISTA ([phone]) [facility] ([facility]) [address] [place] [address] [place] BASOPHILS/100 LEUKOCYTES IN BLOOD BY MANUAL COUNT 3 % High 0-2 [facility] Comment on above: Performed By: #### L [id number] #### Catering Coordinator: LAURA BAUTISTA ([phone]) [facility] ([facility]) [address] [place] [address] CELLS COUNTED TOTAL (#) IN BLOOD 100 Normal [facility] Comment on above: Performed By: #### L [id number] #### Catering Coordinator: LAURA BAUTISTA ([phone]) [facility] ([facility]) [address] [place] [address] [place] DIFFERENTIAL METHOD Manual differential performed Normal [facility] Comment on above: Performed By: #### L [id number] #### Catering Coordinator: LAURA BAUTISTA ([phone]) [facility] ([facility]) [address] [place] [address] [place] EOSINOPHILS (10*3/UL) IN BLOOD BY MANUAL COUNT 1.5 10*3/uL High 0.0-0.5 [facility] Comment on above: Performed By: #### L [id number] #### Catering Coordinator: LAURA BAUTISTA ([phone]) [facility] ([facility]) [address] [place] [address] [place] EOSINOPHILS TOTAL PER COUNTED LEUKOCYTES BY MANUAL COUNT 13 High 0-1 [facility] Comment on above: Performed By: #### L [id number] #### Catering Coordinator: LAURA BAUTISTA ([phone]) [facility] ([facility]) [address] [place] [address] [place] EOSINOPHILS/100 LEUKOCYTES IN BLOOD BY MANUAL COUNT 13 % High 0-6 [facility] Comment on above: Performed By: #### L [id number] #### Catering Coordinator: LAURA BAUTISTA ([phone]) [facility] ([facility]) [address] [place] [address] [place] LEUKOCYTE MORPHOLOGY FINDING IN BLOOD Normal Normal [facility] Comment on above: Performed By: #### L [id number] #### Catering Coordinator: LAURA BAUTISTA ([id number]) [facility] ([facility]) [address] [place] [address] [place] LEUKOCYTES (10*3/UL) NUCLEATED ERYTHROCYTE ADJUST 11.7 10*3/uL High 3.6-10.7 [facility] Comment on above: Performed By: #### L [id number] #### Catering Coordinator: LAURA BAUTISTA ([phone]) [facility] ([facility]) [address] [place] [address] [place] LYMPHOCYTES (10*3/UL) IN BLOOD BY MANUAL COUNT 3.0 10*3/uL Normal 1.0-4.3 [facility] Comment on above: Performed By: #### L [id number] #### Catering Coordinator: LAURA BAUTISTA ([id number]) [facility] ([facility]) [address] [place] [address] [place] LYMPHOCYTES TOTAL PER COUNTED LEUKOCYTES BY MANUAL COUNT 26 Normal [facility] Comment on above: Performed By: #### L [id number] #### Catering Coordinator: LAURA BAUTISTA ([id number]) [facility] ([facility]) [address] [place] [address] [place] LYMPHOCYTES/100 LEUKOCYTES IN BLOOD BY MANUAL COUNT 26 % Normal 15-45 [facility] Comment on above: Performed By: #### L [id number] #### Catering Coordinator: LAURA BAUTISTA ([id number]) [facility] ([facility]) [address] [place] [address] [place] MONOCYTES (10*3/UL) IN BLOOD BY MANUAL COUNT 0.6 10*3/uL Normal 0.0-0.9 [facility] Comment on above: Performed By: #### L [id number] #### Catering Coordinator: LAURA BAUTISTA ([id number]) [facility] [address] [place] [address] [place] MONOCYTES TOTAL PER COUNTED LEUKOCYTES BY MANUAL COUNT 5 Normal [facility] Comment on above: Performed By: #### L [id number] #### Catering Coordinator: LAURA BAUTISTA ([id number]) [facility] ([facility]) [address] [place] [address] [place] MONOCYTES/100 LEUKOCYTES IN BLOOD BY MANUAL COUNT 5 % Normal 5-13 [facility] Comment on above: Performed By: #### L [id number] #### Catering Coordinator: ALURA BAUTISTA ([phone]) [facility] [address] [place] [address] [place] NEUTROPHILS (SEGS+BANDS) (10*3/UL) BY MANUAL COUNT 6.2 10*3/uL Normal 1.8-7.0 [facility] Comment on above: Performed By: #### L [id number] #### Catering Coordinator: LAURA BAUTISTA ([phone]) [facility] ([facility]) [address] [place] [address] [place] NEUTROPHILS BAND FORM/100 LEUKOCYTES IN BLOOD BY MANUAL COUNT 2 % High <=0 [facility] Comment on above: Performed By: #### L [id number] #### Catering Coordinator: LAURA BAUTISTA ([phone]) [facility] ([facility]) [address] [place] [address] [place] NEUTROPHILS TOTAL PER COUNTED LEUKOCYTES BY MANUAL COUNT 51 Normal [facility] Comment on above: Performed By: #### L [id number] #### Catering Coordinator: LAURA BAUTISTA ([phone]) [facility] [address] [place] [address] [place] PLATELET MORPHOLOGY IN BLOOD Normal Normal [facility] Comment on above: Performed By: #### L [id number] #### Catering Coordinator: LAURA BAUTISTA ([phone]) [facility] ([facility]) [address] [place] [address] RBC MORPHOLOGY IN BLOOD Normal Normal [facility] Comment on above: Performed By: #### L [id number] #### Catering Coordinator: LAURA BAUTISTA ([id number]) [facility]) [address] [place] [address] SEGEMENTED NEUTROPHILS/100 LEUKOCYTES BY MANUAL COUNT 51 % Normal 38-82 [facility] Comment on above: Performed By: #### L [id number] #### Catering Coordinator: LAURA BAUTISTA ([id number]) [facility] ([facility]) [address] [place] [address] SEGMENTED NEUTROPHILS (10*3/UL)IN BLOOD BY MANUAL COUNT 6.2 10*3/uL Normal 1.8-7.5 [facility] Comment on above: Performed By: #### L [id number] #### Catering Coordinator: LAURA BAUTISTA ([phone]) [facility] [address] [place] [address] Nursing Noteon 11-12-2024 Nursing Note Pts facility called again regarding ACP docs. Informed this nurse that there are no documents to fax and patient was a full code. Provider made aware of this conversation. [facility] Nursing Note Wool Presser spoke with nurse from pt's facility, requesting ACP docs to be faxed over and fax number provided. Received verbal consent from pt to contact legal guardian in regards to guardianship documentation. Spoke with pt's legal guardian Gail on the phone, stated she'd be able to fax over documents tomorrow 11/13. Fax number provided. [facility] Progress Noteon 11-12-2024 Progress Note [facility] Cinthya Alvares Jonathan : 1960 Primary Care Physician: Lex Roca MD The patient and/or family/surrogate voluntarily agreed to participate in ACP services. Patient?s cognitive capacity: AAO 2-3, patient has capacity Code Status: [x] [FULL CODE - Continue all advanced life support: CPR,intubation,invasiv e procedures](confirmed with facility) [_] [DNR-CCA - DO NOT do CPR, intubation] [_] [DNR-ACTUARIAL INTERNSHIP - Comfort care only] [_] DNR form [...] care, with patient and/or family/surrogate. Jo Hardy, DO Acute care [facility] 11/12/2024, 10:39 AM Normal [facility] UNCONFIRMED DRUG SCREENon Amphetamines Ql (U) Negative Normal Negative [facility] Comment on above: Performed By: #### L [id number] #### Catering Coordinator: LAURA BAUTISTA ([id number]) [facility]) [address] [place] [address] BARBITURATES Negative Normal Negative [facility] Comment on above: Performed By: #### L [id number] #### Catering Coordinator: LAURA BAUTISTA ([id number]) [facility]) [address] [place] [address] Benzodiazepines Ql (U) Negative Normal Negative [facility] Comment on above: Performed By: #### L [id number] #### Catering Coordinator: LAURA BAUTISTA ([id number]) [facility]) [address] [place] [address] Cocaine Ql (U) Negative Normal Negative [facility] Comment on above: Performed By: #### L [id number] #### Catering Coordinator: LAURA BAUTISTA ([phone]) [facility]) [address] [place] [address] Methadone Ql (U) Negative Normal Negative [facility] Comment on above: Performed By: #### L [id number] #### Catering Coordinator: LAURA BAUTISTA ([id number]) [facility] ([facility]) [address] [place] [address] Opiates Ql (U) Negative Normal Negative [facility] Comment on above: Performed By: #### L [id number] #### Catering Coordinator: LAURA BAUTISTA ([phone]) [facility] ([facility]) [address] [place] [address] OXYCODONE/OXYMORPHONE Negative Normal Negative [facility] Comment on above: Performed By: #### L [id number] #### Catering Coordinator: LAURA BAUTISTA ([id number]) [facility] ([facility]) [address] [place] [address] PCP Negative Normal Negative [facility] Comment on above: Result Comment: MITRA Hargrove COMMENTS: The expected value for the drugs [...] using non-forensic procedures. Performed By: #### L [id number] #### Catering Coordinator: LAURA BAUTISTA ([phone]) [facility] ([facility]) [address] [place] [address] ED Nursing Noteon 11-11-2024 ED Nursing Note The patient ambulate d from cot to bed. She was brought in by ems for elevated BS of 555. The patient stated upon arrival she was having shortness of breath and chest pain and neck pain. She stated she did not want any more medication. Blood glucose 499 obtained and EKG obtained during triage. Normal [facility] ED Provider Noteon ED Provider Note Emergency Department Encounter [facility] ED Patient: Cinthya Castillo : 1960 Date of Evaluation: 11/11/2024 ED Provider: Grzegorz Guillen DO Chief Complaint Chief Complaint Patient presents with Hyperglycemia W[place] Cinthya Castillo is a 63 y.o. female [...] 359 ms QTC Interval 427 ms P [place] 69 degrees QRS [place] -14 degrees T Wave [place] 42 degrees [place] Interval 155 ms CBC auto differential Collection [...] - 28.0 (more content not included)... Normal [facility] ED Nursing Noteon 11-10-2024 ED Nursing Note The patient was brought in via ambulance from [facility]. She stated she is having increased pain 10/10 in her neck and back. Pain is a chronic pain. She denies any injury. The patient is observed laughing and giggling at bedside. Normal [facility] ED Provider Noteon ED Provider Note [...] to the emergency department via EMS from [facility] for chronic neck and back pain without [...] DEPARTMENT COURSE and DIFFERENTIAL DIAGNOSIS/MDM: Vitals: Vitals: 11/10/24220511/10/242206 BP: (!) 178/88 BP Location: Right arm [...] SCREENINGS PROCEDURE (more content not included)... Normal [facility] ECG 12-LEADon 10-18-2024 ECG 12-LEAD IMPRESSION: Sinus rhythm Low voltage, precordial leads Consider anterior infarct Compared to ECG 07/12/24 No significant change Electronically Signed On 10-18-2024 02:36:43 EDT by Grzegorz Guillen Normal [facility] CBC WITH AUTO DIFFERENTIALon 10-17-2024 Basophils (Bld) [#/Vol] 0.1 10*3/uL Normal 0.0-0.2 [facility] Comment on above: Performed By: #### L [id number] #### Catering Coordinator: LAURA BAUTISTA ([id number]) [facility]) [address] [place] [address] Basophils/100 WBC (Bld) 0.6 % Normal 0.0-2.0 [facility] Comment on above: Performed By: #### L [id number] #### Catering Coordinator: LAURA BAUTISTA ([id number]) [facility]) [address] [place] [address] Eosinophils (Bld) [#/Vol] 0.3 10*3/uL Normal 0.0-0.5 [facility] Comment on above: Performed By: #### L [id number] #### Catering Coordinator: LAURA BAUTISTA ([id number]) [facility]) [address] [place] [address] Eosinophils/100 WBC (Bld) 3.1 % Normal 0.0-6.0 [facility] Comment on above: Performed By: #### L [id number] #### Catering Coordinator: LAURA [id number]) [facility]) [address] [place] [address] Erythrocyte distribution width (RBC) [Ratio] 12.7 % Normal 11.5-15.0 [facility] Comment on above: Performed By: #### L [id number] #### Catering Coordinator: LAURA [id number]) [facility]) [address] [place] [address] Hematocrit (Bld) [Volume fraction] 31.0 % Low 35.0-47.0 [facility] Comment on above: Performed By: #### L [id number] #### Catering Coordinator: LAURA BAUTISTA ([phone]) [facility]) [address] [place] [address] Hemoglobin (Bld) [Mass/Vol] 10.4 g/dL Low 11.7-16.0 [facility] Comment on above: Performed By: #### L [id number] #### Catering Coordinator: LAURA BAUTISTA ([phone]) [facility]) [address] [place] [address] IMMATURE GRANS % 0.5 % Normal 0.0-2.0 [facility] Comment on above: Performed By: #### L [id number] #### Catering Coordinator: LAURA BAUTISTA ([id number]) [facility]) [address] [place] [address] IMMATURE GRANS ABSOLUTE 0.1 10*3/uL High <0.1 [facility] Comment on above: Performed By: #### L [id number] #### Catering Coordinator: LAURA BAUTISTA ([id number]) [facility]) [address] [place] [address] Lymphocytes (Bld) [#/Vol] 1.6 10*3/uL Normal 1.0-4.3 [facility] Comment on above: Performed By: #### L [id number] #### Catering Coordinator: LAURA BAUTISTA ([phone]) [facility]) [address] [place] [address] Lymphocytes/100 WBC (Bld) 16.3 % Normal 15.0-45.0 [facility] Comment on above: Performed By: #### L [id number] #### Catering Coordinator: LAURA BAUTISTA ([id number]) [facility]) [address] [place] [address] MCH (RBC) [Entitic mass] 28.9 pg Normal 26.0-34.0 [facility] Comment on above: Performed By: #### L [id number] #### Catering Coordinator: LAURA BAUTISTA ([id number]) [facility]) [address] [place] [address] MCHC 33.5 % Normal 30.5-36.0 [facility] Comment on above: Performed By: #### L [id number] #### Catering Coordinator: LAURA BAUTISTA ([id number]) [facility]) [address] [place] [address] MCV (RBC) [Entitic vol] 86.1 fL Normal 77.0-99.0 [facility] Comment on above: Performed By: #### L [id number] #### Catering Coordinator: LAURA BAUTISTA ([id number]) [facility]) [address] [place] [address] Monocytes (Bld) [#/Vol] 0.9 10*3/uL Normal 0.0-0.9 [facility] Comment on above: Performed By: #### L [id number] #### Catering Coordinator: LAURA BAUTISTA ([phone]) [facility]) [address] [place] [address] Monocytes/100 WBC (Bld) 8.9 % Normal 5.0-13.0 [facility] Comment on above: Performed By: #### L [id number] #### Catering Coordinator: LAURA BAUTISTA ([id number]) [facility]) [address] [place] [address] NEUTROPHILS ABSOLUTE 6.8 10*3/uL Normal 1.8-7.5 [facility] Comment on above: Performed By: #### L [id number] #### Catering Coordinator: LAURA BAUTISTA ([phone]) [facility]) [address] [place] [address] Neutrophils/100 WBC (Bld) 70.6 % Normal 38.0-82.0 [facility] Comment on above: Performed By: #### L [id number] #### Catering Coordinator: LAURA [id number]) [facility] ([facility]) [address] [place] [address] NRBC 0.0 /100 WBCs Normal 0.0-2.0 [facility] Comment on above: Performed By: #### L [id number] #### Catering Coordinator: LAURA BAUTISTA ([phone]) [facility] ([facility]) [address] [place] [address] Platelet mean volume (Bld) [Entitic vol] 9.5 fL Normal 9.0-12.7 [facility] Comment on above: Result Comment: MPV is a calculated measurement using platelet volume ratio Performed By: #### L [id number] #### Catering Coordinator: LAURA BAUTISTA ([id number]) [facility] ([facility]) [address] [place] [address] Platelets (Bld) [#/Vol] 305 10*3/uL Normal 140-440 [facility] Comment on above: Performed By: #### L [id number] #### Catering Coordinator: LAURA BAUTISTA ([id number]) [facility] ([facility]) [address] [place] [address] RBC (Bld) [#/Vol] 3.60 10*6/uL Low 3.80-5.20 [facility] Comment on above: Performed By: #### L [id number] #### Catering Coordinator: LAURA BAUTISTA ([id number]) [facility] ([facility]) [address] [place] [address] WBC (Bld) [#/Vol] 9.6 10*3/uL Normal 3.6-10.7 [facility] Comment on above: Performed By: #### L [id number] #### Catering Coordinator: LAURA BAUTISTA ([id number]) [facility] ([facility]) [address] [place] [address] COMPREHENSIVE METABOLIC PANE Aamir 10-17-2024 Albumin [Mass/Vol] 2.9 g/dL Low 3.4-4.8 [facility] Comment on above: Performed By: #### L [id number], [id number] ####Catering Coordinator: LAURA BAUTISTA ([id number])[facility] (SWRLAB)[address] [place] [address] [place] ALP [Catalytic activity/Vol] 75 U/L Normal 40-150 [facility] Comment on above: Performed By: #### L [id number], [id number] ####Catering Coordinator: LAURA BAUTISTA ([phone])[facility] (SWRL[place])[address] [place] [address] [place] ALT [Catalytic activity/Vol] 9 U/L Normal <30 [facility] Comment on above: Performed By: #### L [id number], [id number] ####Catering Coordinator: LAURA BAUTISTA ([id number])[facility] (SWRL[place])[address] Anion gap [Moles/Vol] 12 mmol/L Normal 3-13 [facility] Comment on above: Performed By: #### L [id number], [id number] ####Catering Coordinator: LAURA BAUTISTA ([phone])[facility] (SWRL[place])[address] [place] [address] [place] AST [Catalytic activity/Vol] 24 U/L Normal <34 [facility] Comment on above: Performed By: #### L [id number], [id number] ####Catering Coordinator: LAURA BAUTISTA ([id number])[facility] (SWRL[place])[address] Bilirubin [Mass/Vol] 0.3 mg/dL Normal <1.2 [facility] Comment on above: Performed By: #### L [id number], [id number] ####Catering Coordinator: LAURA BAUTISTA ([id number])[facility] (SWRL[place])[address] [place] [address] [place] Calcium [Mass/Vol] 9.0 mg/dL Normal 8.8-10.0 [facility] Comment on above: Performed By: #### L [id number], [id number] ####Catering Coordinator: LAURA BAUTISTA ([id number])[facility] [place] ([place])[address] [place] [address] [place] Chloride [Moles/Vol] 108 mmol/L High 98-107 [facility] Comment on above: Performed By: #### L [id number], [id number] ####Catering Coordinator: LAURA BAUTISTA ([phone])[facility] (SWRL[place])[address] CO2 [Moles/Vol] 19 mmol/L Low 23-31 [facility] Comment on above: Performed By: #### L [id number], [id number] ####Catering Coordinator: LAURA BAUTISTA ([id number])[facility]THRam[facility] (SWRLAB)[address] [place] [address] [place] Creatinine [Mass/Vol] 2.20 mg/dL High 0.57-1.11 [facility] Comment on above: Performed By: #### L [id number], [id number] ####Catering Coordinator: LAURA BAUTISTA ([id number])[facility]THRamón [facility] (SWRL[place])[address] [place] [address] GLOMERULAR FILTRATION RATE ML/MIN/1.73 SQ M.PREDICTED 24.8 mL/min/1.73m*2 Low >60.0 [facility] Comment on above: Result Comment: Calc ulation based on the Chronic Kidney Disease Epidemiology Collaboration (CKD-EPI) equation refit without adjustment for race Performed By: #### L [id number], [id number] ####Catering Coordinator: LAURA BAUTISTA ([id number])[facility]Ram[facility] (SWRL[place])[address] [place] [address] [place] Glucose [Mass/Vol] 264 mg/dL High 82-115 [facility] Comment on above: Performed By: #### L [id number], [id number] ####Catering Coordinator: LAURA BAUTISTA ([phone])[facility] S[facility]THRamón W[facility]TM[facility] (SWRLAB)[address] Potassium [Moles/Vol] 4.8 mmol/L Normal 3.5-5.1 [facility] Comment on above: Result Comment: [facility] potassium values may be up to 0.5 mmol/L lower than serum values. Performed By: #### L [id number], [id number] ####Catering Coordinator: LAURA BAUTISTA ([phone])[facility] S[facility]THRam[facility]ARD[facility] (SWRLAB)[address] Protein [Mass/Vol] 6.7 g/dL Normal 6.4-8.3 [facility] Comment on above: Performed By: #### L [id number], [id number] ####Catering Coordinator: LAURA BAUTISTA ([phone])[facility]ALSAMGREGORIA [facility] ([facility])[address] [place] [address] Sodium [Moles/Vol] 139 mmol/L Normal 136-145 [facility] Comment on above: Performed By: #### L [id number], [id number] ####Catering Coordinator: LAURA BAUTISTA ([id number])[facility] S[facility]THRamón POOLAN (SWRLAB)[address] [place] [address] Urea nitrogen [Mass/Vol] 49 mg/dL High 9-23 [facility] Comment on above: Performed By: #### L [id number], [id number] ####Catering Coordinator: LAURA BAUTISTA ([id number])[facility] SAM POOLAN (SWRLAB)[address] [place] [address] ED Nursing Noteon 10-17-2024 ED Nursing Note Pt to ER by [facility] from [facility] for neck and back pain. Per EMS pt has hx of chronic neck and back pain. Pt states she has never had this before. Pt able to ambulate to bed with assist of EMS. Alert and oriented to person and place. Not to date. No paperwork provided by [facility], unsure of pt's mental status. Pt cheerful and laughing and joking with staff on arrival. Moving all extremities. Skin warm and dry. Respirations even and unlabored. Side rails up x 2 for safety. Call light in reach. Pt watching TV Normal [employer] [facility] ED Provider Noteon ED Provider Note Emergency Department Encounter [facility] ED Patient: Cinthya Castillo : 1960 Date of Evaluation: 10/17/2024 ED Provider: Grzegorz Guillen DO Chief Complaint Chief Complaint Patient presents with Neck Pain Back Pain No injury [place] Cinthya Castillo is a 63 y.o. female [...] 382 ms QTC Interval 453 ms P [place] 19 degrees QRS [place] -13 degrees T Wave [place] 59 degrees [place] Interval 146 ms CBC auto differential Collection [...] 9.5 9.0 (more content not included)... Normal [facility] HIGH SENSITIVITY TROPONIN, S ERIAL BASELINEon 10-17-2024 TROPONIN HS SERIAL BASELINE 11 ng/L Normal <=14 [facility] Comment on above: Result Comment: In i ndividuals presenting with symptoms > 2h, a baseline troponin <= 5 ng/L suggests acute cardiac injury is unlikely and further serial testing is generally not indicated. Performed By: #### L [id number], [id number] ####Catering Coordinator: LAURA BAUTISTA ([id number])[facility]PITALSAM Speed CommerceAbraResto (T-VIPS)[address] [place] [address] HIGH SENSITIVITY TROPONIN, S ERIAL, SECOND TESTon 10-17-2024 2H TROPONIN HS (SERIAL 2ND TROPONIN) 13 ng/L Normal <=14 [facility] Comment on above: Result Comment: Risi ng or falling troponin delta below 2 ng/L as compared to baseline value suggests that acute cardiac injury is unlikely. Performed By: #### L [id number] ####Catering Coordinator: LAURA BAUTISTA ([id number])[facility]ALSAM [facility] (SW[facility])[address] Anion gap in Serum or Plasma Ordered By: Lex Roca on 09-25-2024 Anion gap [Moles/Vol] 9 mmol/L 5-15 [facility] BUN/creatinine ratioOrdered By: Lex Roca on 09-25-2024 Urea nitrogen/Creatinine [Mass ratio] 25.0 mg/mg High 10-20 [facility] Carbon dioxide, total [Moles /volume] in Central venous bloodOrdered By: Lex Roca on 09-25-2024 CO2 [Moles/Vol] 23.8 mmol/L 21.0-32.0 [facility] Chloride assayOrdered By: Sony Roca on 09-25-2024 Chloride [Moles/Vol] 107 mmol/L 98-108 [facility] Glomerular filtration rate ( GFR) estimation/1.73 sq m using serum, plasma, or whole bOrdered By: Lex Roca on 09-25-2024 GFR/1.73 sq M.predicted among non-blacks MDRD (S/P/Bld) [Vol rate/Area] 24 mL/min/{1.73_m2} Low >60 [facility] Comment on above: mL/min/1.73m2 CKD-EP I Creatinine Equation (2020) Hemoglobin A1c percentageOrd ered By: Lex Roca on 09-25-2024 HbA1c (Bld) [Mass fraction] 9.4 % High <5.7 [facility] Comment on above: Normal < 5.7 % Predi abetic 5.7 - 6.4 % Diabetic >or= 6.5 % Please note range changes. Potassium measurement (mass/ volume)Ordered By: Lex Roca on 09-25-2024 Potassium (Unsp spec) [Mass/Vol] 4.6 mmol/L 3.3-5.1 [facility] Serum creatinine measurement (mass/volume)Ordered By: Lex Roca on 09-25-2024 Creatinine [Mass/Vol] 2.23 mg/dL High 0.70-1.20 [facility] Serum glucose measurement (m ass/volume)Ordered By: Lex Roca on 09-25-2024 Glucose [Mass/Vol] 176 mg/dL High 70-99 [facility] Serum or plasma calcium aba urement (mass/volume)Ordered By: Lex Roca on 09-25-2024 Calcium [Mass/Vol] 9.1 mg/dL 7.6-11.0 [facility] Serum or plasma urea nitroge n measurement (mass/volume)Ordered By: Lex Roca on 09-25-2024 Urea nitrogen [Mass/Vol] 56 mg/dL High 4-19 [facility] Sodium levelOrdered By: Iban Roca on 09-25-2024 Sodium [Moles/Vol] 140 mmol/L 133-145 [facility] Anion gap in Serum or Plasma Ordered By: Lex Roca on 09-20-2024 Anion gap [Moles/Vol] 10 mmol/L 5-15 [facility] BUN/creatinine ratioOrdered By: eLx Roca on 09-20-2024 Urea nitrogen/Creatinine [Mass ratio] 20.7 mg/mg High 10-20 [facility] Carbon dioxide, total [Moles /volume] in Central venous bloodOrdered By: Lex Roca on 09-20-2024 CO2 [Moles/Vol] 23.0 mmol/L 21.0-32.0 [facility] Chloride assayOrdered By: Sony Roca on 09-20-2024 Chloride [Moles/Vol] 105 mmol/L 98-108 [facility] Erythrocyte distribution wid th ratioOrdered By: Lex Roca on 09-20-2024 Erythrocyte distribution width (RBC) [Ratio] 12.6 % 11.6-14.6 [facility] Erythrocyte distribution wid standard deviationOrdered By: Lex Roca on 09-20-2024 Erythrocyte distribution width (RBC) [Ratio] 41.3 fl 35.1-43.9 [facility] Glomerular filtration rate ( GFR) estimation/1.73 sq m using serum, plasma, or whole bOrdered By: Lex Roca on 09-20-2024 GFR/1.73 sq M.predicted among non-blacks MDRD (S/P/Bld) [Vol rate/Area] 26 mL/min/{1.73_m2} Low >60 [facility] Comment on above: mL/min/1.73m2 CKD-EP I Creatinine Equation (2020) Hematocrit Auto (Bld) [Volum e fraction]Ordered By: Lex Roca on 09-20-2024 Hematocrit (Bld) [Volume fraction] 30.0 % Low 37-47 [facility] Hemoglobin A1c percentageOrd ered By: Lex Roca on 09-20-2024 HbA1c (Bld) [Mass fraction] 9.7 % High <5.7 [facility] Comment on above: Normal < 5.7 % Predi abetic 5.7 - 6.4 % Diabetic >or= 6.5 % Please note range changes. Hemoglobin measurementOrdere d By: Lex Roca on 09-20-2024 Hemoglobin (Bld) [Mass/Vol] 9.9 g/dL Low 12.0-15.0 [facility] MCV (mean corpuscular volume ) determinationOrdered By: Lex Roca on 09-20-2024 MCV (RBC) [Entitic vol] 89.3 fL 81-99 [facility] Mean corpuscular hemoglobin (MCH) determinationOrdered By: Lex Roca on 09-20-2024 MCH (RBC) [Entitic mass] 29.5 pg 27.0-32.0 [facility] Mean corpuscular hemoglobin concentration (MCHC) determinationOrdered By: Lex Roca on 09-20-2024 MCHC (RBC) [Mass/Vol] 33.0 g/dL 32-36 [facility] Mean platelet volume determi nationOrdered By: Lex Roca on 09-20-2024 Platelet mean volume (Bld) [Entitic vol] 10.4 fL 6.2-12.0 [facility] Platelet countOrdered By: Sony Roca on 09-20-2024 Platelets (Bld) [#/Vol] 289 10*3/uL 150-450 [facility] Potassium measurement (mass/ volume)Ordered By: Lex Roca on 09-20-2024 Potassium (Unsp spec) [Mass/Vol] 5.2 mmol/L High 3.3-5.1 [facility] RBC Auto (Bld) [#/Vol]Ordere d By: Lex Roca on 09-20-2024 RBC (Bld) [#/Vol] 3.36 10*6/uL Low 4.2-5.4 [facility] Serum creatinine measurement (mass/volume)Ordered By: Lex Roca on 09-20-2024 Creatinine [Mass/Vol] 2.12 mg/dL High 0.70-1.20 [facility] Serum glucose measurement (m ass/volume)Ordered By: Lex Roca on 09-20-2024 Glucose [Mass/Vol] 413 mg/dL High 70-99 [facility] Serum or plasma calcium aba urement (mass/volume)Ordered By: Lex Roca on 09-20-2024 Calcium [Mass/Vol] 8.9 mg/dL 7.6-11.0 [facility] Serum or plasma urea nitroge n measurement (mass/volume)Ordered By: Lex Roca on 09-20-2024 Urea nitrogen [Mass/Vol] 44 mg/dL High 4-19 [facility] Sodium levelOrdered By: Iban Roca on 09-20-2024 Sodium [Moles/Vol] 138 mmol/L 133-145 [facility] White blood cell (WBC) count Ordered By: Lex Roca on 09-20-2024 WBC (Bld) [#/Vol] 6.9 10*3/uL 4.4-11.0 [facility] Bilirubin Test strip Ql (U)O rdered By: Lex Roca on 08-16-2024 Bilirubin Ql (U) Negative Negative [facility] Ketones Test strip Ql (U)Ord ered By: Lex Roca on 08-16-2024 Ketones Ql (U) Negative Negative [facility] Microscopic analysis of urin e for red blood cells (RBC)Ordered By: Lex Roca on 08-16-2024 Microscopic analysis of urine for red blood cells (RBC) 0-5 SEEN /hpf 0-5 [facility] Mucus LM Ql (Urine sed)Order ed By: Lex Roca on 08-16-2024 Mucus Ql (Urine sed) 0 SEEN /hpf [facility] Nitrite Test strip Ql (U)Ord ered By: Lex Roca on 08-16-2024 Nitrite Ql (U) Negative Negative [facility] Protein Test strip Ql (U)Ord ered By: Lex Roca on 08-16-2024 Protein Ql (U) 500 mg/dl High Negative [facility] Squamous epithelial cells de tection in urine sediment by light microscopyOrdered By: Lex Roca on 08-16-2024 Epithelial cells.squamous LM Ql (Urine sed) 0-5 SEEN /hpf 5-10 [facility] Urine clarityOrdered By: Tony Roca on 08-16-2024 Clarity (U) Clear Clear [facility] Urine color determinationOrd ered By: Lex Roca on 08-16-2024 Color (U) Yellow Yellow [facility] Urine cultureOrdered By: Tony Roca on 08-16-2024 Bacteria identified Cx Nom (U) Proteus mirabilis Abnormal [facility] Urine glucose detectionOrder ed By: Lex Roca on 08-16-2024 Glucose Ql (U) 250 mg/dl High Normal [facility] Urine leukocyte esterase det ection by dipstickOrdered By: Lex Roca on 08-16-2024 Leukocyte esterase Test strip Ql (U) Negative Negative [facility] Urine pHOrdered By: Lex cooper on 08-16-2024 pH (U) 7.0 [pH] 5.0 - 8.0 [facility] Urine sediment bacteria coun t by microscopy (number/high power field)Ordered By: Lex Roca on 08-16-2024 Bacteria LM.HPF (Urine sed) [#/Area] RARE /hpf None Seen [facility] Urine specific gravity measu rementOrdered By: Lex Roca on 08-16-2024 Specific gravity (U) [Rel density] 1.010 1.002-1.030 [facility] Urine urobilinogen measureme ntOrdered By: Lex Roca on 08-16-2024 Urobilinogen Ql (U) Normal mg/dl Normal [facility] White blood cell countOrdere d By: Lex Roca on 08-16-2024 White blood cell count 0-5 SEEN /hpf 0-5 [facility] Absolute lymphocyte countOrd ered By: Lex Roca on 07-19-2024 Lymphocytes Auto (Unsp spec) [#/Vol] 1.65 10*3/uL 0.83-4.51 [facility] Absolute neutrophil countOrd ered By: Lex Roca on 07-19-2024 Neutrophils (Bld) [#/Vol] 3.7 10*3/uL 2.0-7.7 [facility] Anion gap in Serum or Plasma Ordered By: Lex Roca on 07-19-2024 Anion gap [Moles/Vol] 10 mmol/L 5-15 [facility] Automated lymphocyte count a s percentage of total leukocytesOrdered By: Lex Roca on 07-19-2024 Lymphocytes/100 WBC Auto (Unsp spec) 25.0 % 19-41 [facility] BUN/creatinine ratioOrdered By: Lex Roca on 07-19-2024 Urea nitrogen/Creatinine [Mass ratio] 26.5 mg/mg High 10-20 [facility] Basophil percentageOrdered B y: Lex Roca on 07-19-2024 Basophils/100 WBC (Bld) 1.1 % High 0-1 [facility] Bilirubin Test strip Ql (U)O rdered By: Lex Roca on 07-19-2024 Bilirubin Ql (U) Negative Negative [facility] Carbon dioxide, total [Moles /volume] in Central venous bloodOrdered By: Lex Roca on 07-19-2024 CO2 [Moles/Vol] 22.3 mmol/L 21.0-32.0 [facility] Chloride assayOrdered By: Sony Roca on 07-19-2024 Chloride [Moles/Vol] 107 mmol/L 98-108 [facility] Eosinophil percentageOrdered By: Lex Roca on 07-19-2024 Eosinophils/100 WBC (Bld) 4.7 % 0-5 [facility] Erythrocyte distribution wid th ratioOrdered By: Lex Roca on 07-19-2024 Erythrocyte distribution width (RBC) [Ratio] 12.6 % 11.6-14.6 [facility] Erythrocyte distribution wid th standard deviationOrdered By: Lex Roca on 07-19-2024 Erythrocyte distribution width (RBC) [Ratio] 41.5 fl 35.1-43.9 [facility] Glomerular filtration rate ( GFR) estimation/1.73 sq m using serum, plasma, or whole bOrdered By: Lex Roca on 07-19-2024 GFR/1.73 sq M.predicted among non-blacks MDRD (S/P/Bld) [Vol rate/Area] 31 mL/min/{1.73_m2} Low >60 [facility] Comment on above: mL/min/1.73m2 CKD-EP I Creatinine Equation (2020) Hematocrit Auto (Bld) [Volum e fraction]Ordered By: Lex Roca on 07-19-2024 Hematocrit (Bld) [Volume fraction] 32.5 % Low 37-47 [facility] Hemoglobin A1c percentageOrd ered By: Lex Roca on 07-19-2024 HbA1c (Bld) [Mass fraction] 7.6 % High <5.7 [facility] Comment on above: Normal < 5.7 % Predi abetic 5.7 - 6.4 % Diabetic >or= 6.5 % Please note range changes. Hemoglobin measurementOrdere d By: Lex Roca on 07-19-2024 Hemoglobin (Bld) [Mass/Vol] 10.4 g/dL Low 12.0-15.0 [facility] Immature granulocytes/100 WB C Auto (Bld)Ordered By: Lex Roca on 07-19-2024 Immature granulocytes/100 WBC (Bld) 0.800 % 0.0-0.9 [facility] Comment on above: IG% - Immature Granu locytes (promyelocytes, myelocytes and metamyelocytes) > 1% indicates that a LEFT SHIFT is Present. Ketones Test strip Ql (U)Ord ered By: Lex Roca on 07-19-2024 Ketones Ql (U) Negative Negative [facility] MCV (mean corpuscular volume ) determinationOrdered By: Lex Roca on 07-19-2024 MCV (RBC) [Entitic vol] 91.0 fL 81-99 [facility] Mean corpuscular hemoglobin (MCH) determinationOrdered By: Lex Roca on 07-19-2024 MCH (RBC) [Entitic mass] 29.1 pg 27.0-32.0 [facility] Mean corpuscular hemoglobin concentration (MCHC) determinationOrdered By: Lex Roca on 07-19-2024 MCHC (RBC) [Mass/Vol] 32.0 g/dL 32-36 [facility] Mean platelet volume determi nationOrdered By: Lex Roca on 07-19-2024 Platelet mean volume (Bld) [Entitic vol] 9.9 fL 6.2-12.0 [facility] Monocyte percentageOrdered B y: Lex Roca on 07-19-2024 Monocytes/100 WBC (Bld) 12.1 % High 0-10 [facility] Neutrophil percentageOrdered By: Lex Roca on 07-19-2024 Neutrophils/100 WBC (Bld) 56.3 % 47-70 [facility] Nitrite Test strip Ql (U)Ord ered By: Lex Roca on 07-19-2024 Nitrite Ql (U) Negative Negative [facility] Nucleated red blood cell per centageOrdered By: Lex Roca on 07-19-2024 Nucleated RBC/100 WBC (Bld) [Ratio] 0 % 0-5 [facility] Platelet countOrdered By: Sony Roca on 07-19-2024 Platelets (Bld) [#/Vol] 288 10*3/uL 150-450 [facility] Potassium measurement (mass/ volume)Ordered By: Lex Roca on 07-19-2024 Potassium (Unsp spec) [Mass/Vol] 4.9 mmol/L 3.3-5.1 [facility] Protein Test strip Ql (U)Ord ered By: Lex Roca on 07-19-2024 Protein Ql (U) TNP [facility] Comment on above: Test not performed RBC Auto (Bld) [#/Vol]Ordere d By: Lex Roca on 07-19-2024 RBC (Bld) [#/Vol] 3.57 10*6/uL Low 4.2-5.4 [facility] Serum creatinine measurement (mass/volume)Ordered By: Lex Roca on 07-19-2024 Creatinine [Mass/Vol] 1.83 mg/dL High 0.70-1.20 [facility] Serum glucose measurement (m ass/volume)Ordered By: Lex Roca on 07-19-2024 Glucose [Mass/Vol] 227 mg/dL High 70-99 [facility] Serum or plasma albumin aba urement (mass/volume)Ordered By: Lex Roca on 07-19-2024 Albumin [Mass/Vol] 3.3 g/dL Low 3.4-4.8 [facility] Serum or plasma calcium aba urement (mass/volume)Ordered By: Lex Roca on 07-19-2024 Calcium [Mass/Vol] 8.8 mg/dL 7.6-11.0 [facility] Serum or plasma urea nitroge n measurement (mass/volume)Ordered By: Lex Roca on 07-19-2024 Urea nitrogen [Mass/Vol] 49 mg/dL High 4-19 [facility] Sodium levelOrdered By: Iban Roca on 07-19-2024 Sodium [Moles/Vol] 139 mmol/L 133-145 [facility] Urine clarityOrdered By: Tony Roca on 07-19-2024 Clarity (U) Clear Clear [facility] Urine color determinationOrd ered By: Lex Roca on 07-19-2024 Color (U) Yellow Yellow [facility] Urine cultureOrdered By: Tony Roca on 07-19-2024 Bacteria identified Cx Nom (U) Proteus mirabilis Abnormal [facility] Urine glucose detectionOrder ed By: Lex Roca on 07-19-2024 Glucose Ql (U) 250 mg/dl High Normal [facility] Urine leukocyte esterase det ection by dipstickOrdered By: Lex Roca on 07-19-2024 Leukocyte esterase Test strip Ql (U) 25 /ul High Negative [facility] Urine pHOrdered By: Lex cooper on 07-19-2024 pH (U) 6.0 [pH] 5.0 - 8.0 [facility] Urine specific gravity measu rementOrdered By: Lex Roca on 07-19-2024 Specific gravity (U) [Rel density] 1.020 1.002-1.030 [facility] Urine urobilinogen measureme ntOrdered By: Lex Roca on 07-19-2024 Urobilinogen Ql (U) Normal mg/dl Normal [facility] White blood cell (WBC) count Ordered By: Lex Roca on 07-19-2024 WBC (Bld) [#/Vol] 6.6 10*3/uL 4.4-11.0 [facility] Anion gap in Serum or Plasma Ordered By: Lex Roca on 07-17-2024 Anion gap [Moles/Vol] 10 mmol/L 5-15 [facility] BUN/creatinine ratioOrdered By: Lex Roca on 07-17-2024 Urea nitrogen/Creatinine [Mass ratio] 28.0 mg/mg High 10-20 [facility] Carbon dioxide, total [Moles /volume] in Central venous bloodOrdered By: Lex Roca on 07-17-2024 CO2 [Moles/Vol] 23.1 mmol/L 21.0-32.0 [facility] Chloride assayOrdered By: Sony Roca on 07-17-2024 Chloride [Moles/Vol] 107 mmol/L 98-108 [facility] Erythrocyte distribution wid th ratioOrdered By: Lex Roca on 07-17-2024 Erythrocyte distribution width (RBC) [Ratio] 12.5 % 11.6-14.6 [facility] Erythrocyte distribution wid th standard deviationOrdered By: Lex Roca on 07-17-2024 Erythrocyte distribution width (RBC) [Ratio] 41.5 fl 35.1-43.9 [facility] Glomerular filtration rate ( GFR) estimation/1.73 sq m using serum, plasma, or whole bOrdered By: Lex Roca on 07-17-2024 GFR/1.73 sq M.predicted among non-blacks MDRD (S/P/Bld) [Vol rate/Area] 30 mL/min/{1.73_m2} Low >60 [facility] Comment on above: mL/min/1.73m2 CKD-EP I Creatinine Equation (2020) Hematocrit Auto (Bld) [Volum e fraction]Ordered By: Lex Roca on 07-17-2024 Hematocrit (Bld) [Volume fraction] 33.8 % Low 37-47 [facility] Hemoglobin A1c percentageOrd ered By: Lex Roca on 07-17-2024 HbA1c (Bld) [Mass fraction] 7.5 % High <5.7 [facility] Comment on above: Normal < 5.7 % Predi abetic 5.7 - 6.4 % Diabetic >or= 6.5 % Please note range changes. Hemoglobin measurementOrdere d By: Lex Roca on 07-17-2024 Hemoglobin (Bld) [Mass/Vol] 10.9 g/dL Low 12.0-15.0 [facility] MCV (mean corpuscular volume ) determinationOrdered By: Lex Roca on 07-17-2024 MCV (RBC) [Entitic vol] 91.6 fL 81-99 [facility] Mean corpuscular hemoglobin (MCH) determinationOrdered By: Lex Roca on 07-17-2024 MCH (RBC) [Entitic mass] 29.5 pg 27.0-32.0 [facility] Mean corpuscular hemoglobin concentration (MCHC) determinationOrdered By: Lex Roca on 07-17-2024 MCHC (RBC) [Mass/Vol] 32.2 g/dL 32-36 [facility] Mean platelet volume determi nationOrdered By: Lex Roca on 07-17-2024 Platelet mean volume (Bld) [Entitic vol] 10.0 fL 6.2-12.0 [facility] Platelet countOrdered By: Sony Roca on 07-17-2024 Platelets (Bld) [#/Vol] 286 10*3/uL 150-450 [facility] Potassium measurement (mass/ volume)Ordered By: Lex Roca on 07-17-2024 Potassium (Unsp spec) [Mass/Vol] 5.1 mmol/L 3.3-5.1 [facility] RBC Auto (Bld) [#/Vol]Ordere d By: Lex Roca on 07-17-2024 RBC (Bld) [#/Vol] 3.69 10*6/uL Low 4.2-5.4 [facility] Serum creatinine measurement (mass/volume)Ordered By: Lex Roca on 07-17-2024 Creatinine [Mass/Vol] 1.87 mg/dL High 0.70-1.20 [facility] Serum glucose measurement (m ass/volume)Ordered By: Lex Roca on 07-17-2024 Glucose [Mass/Vol] 254 mg/dL High 70-99 [facility] Serum or plasma calcium aba urement (mass/volume)Ordered By: Lex Roca on 07-17-2024 Calcium [Mass/Vol] 8.8 mg/dL 7.6-11.0 [facility] Serum or plasma urea nitroge n measurement (mass/volume)Ordered By: Lex Roca on 07-17-2024 Urea nitrogen [Mass/Vol] 52 mg/dL High 4-19 [facility] Sodium levelOrdered By: Iban Roca on 07-17-2024 Sodium [Moles/Vol] 140 mmol/L 133-145 [facility] White blood cell (WBC) count Ordered By: Lex Roca on 07-17-2024 WBC (Bld) [#/Vol] 6.7 10*3/uL 4.4-11.0 [facility] BETA HYDROXYBUTYRATEon 07-13 BETA HYDROXYBUTYRATE 0.6 mg/dL Normal <=2.8 [facility] Comment on above: Performed By: #### L [id number], [id number] ####Catering Coordinator: LAURA BAUTISTA ([phone])[facility] ([facility])[address] [place] [address] BLOOD GAS, VENOUS (SWR AND S HC)on 07-13-2024 AMOUNT OF OXYGEN Normal [facility] Comment on above: Performed By: #### L [id number] ####Catering Coordinator: LAURA BAUTISTA ([phone])[facility]Ramón [facility] ([facility])[address] [place] [address] BASE EXCESS (MMOL/L) IN VENOUS BLOOD -1.0 mmol/L Normal -3.0-3.0 [facility] Comment on above: Performed By: #### L [id number] ####Catering Coordinator: LAURA BAUTISTA ([phone])[facility] ([facility])[address] [place] [address] CARBON DIOXIDE (MM HG) IN VENOUS BLOOD 43 mm(Hg) Normal 40-55 [facility] Comment on above: Performed By: #### L [id number] ####Catering Coordinator: LAURA BAUTISTA ([phone])[facility] SAM [place] ([place])[address] [place] [address] [place] CO2 [Moles/Vol] 26.0 mmol/L Normal 24.0-28.0 [facility] Comment on above: Performed By: #### L [id number] ####Catering Coordinator: LAURA BAUTISTA ([phone])[facility]Ram[facility] ([facility])[address] [place] [address] [place] HCO3 (Bld) [Moles/Vol] 24.7 mmol/L Normal 23.0-27.0 [facility] Comment on above: Performed By: #### L [id number] ####Catering Coordinator: LAURA BAUTISTA ([phone])[facility]Ram[facility] ([place])[address] [place] [address] OXYGEN (MM HG) IN VENOUS BLOOD 51 mm(Hg) Normal [facility] Comment on above: Performed By: #### L [id number] ####Catering Coordinator: LAURA BAUTISTA ([phone])[facility] ([facility])[address] [place] [address] OXYGEN SATURATION (%) IN VENOUS BLOOD 85.0 % High 60.0-80.0 [facility] Comment on above: Performed By: #### L [id number] ####Catering Coordinator: LAURA BAUTISTA ([id number])[facility]THRam[facility] ([facility])[address] [place] [address] [place] pH (Bld) 7.373 [pH] Normal 7.310-7.410 [facility] Comment on above: Performed By: #### L [id number] ####Catering Coordinator: LAURA BAUTISTA ([id number])[facility]Ram[facility] ([facility])[address] [place] [address] SOURCE OF OXYGEN None (Room Air) Normal [facility] Comment on above: Performed By: #### L [id number] ####Catering Coordinator: LAURA BAUTISTA ([phone])[facility])[address] [place] [address] CBC WITH AUTO DIFFERENTIALon 07-13-2024 Basophils (Bld) [#/Vol] 0.0 10*3/uL Normal 0.0-0.2 [facility] Comment on above: Performed By: #### L [id number] ####Catering Coordinator: LAURA BAUTISTA ([id number])[facility] [facility] [facility])[address] [place] [address] Basophils/100 WBC (Bld) 0.5 % Normal 0.0-2.0 S [facility] Comment on above: Performed By: #### L [id number] ####Catering Coordinator: LAURA BAUTISTA ([phone])[facility] [facility] [facility])[address] [place] [address] Eosinophils (Bld) [#/Vol] 0.5 10*3/uL Normal 0.0-0.5 [facility] Comment on above: Performed By: #### L [id number] ####Catering Coordinator: LAURA BAUTISTA ([phone])[facility] [facility])[address] [place] [address] Eosinophils/100 WBC (Bld) 6.3 % High 0.0-6.0 [facility] Comment on above: Performed By: #### L [id number] ####Catering Coordinator: LAURA BAUTISTA ([id number])[facility] [facility])[address] [place] [address] Erythrocyte distribution width (RBC) [Ratio] 12.7 % Normal 11.5-15.0 [facility] Comment on above: Performed By: #### L [id number] ####Catering Coordinator: LAURA BAUTISTA ([id number])[facility] [facility] ([facility])[address] [place] [address] Hematocrit (Bld) [Volume fraction] 34.0 % Low 35.0-47.0 [facility] Comment on above: Performed By: #### L [id number] ####Catering Coordinator: LAURA BAUTISTA ([phone])[facility]Ram[facility] ([facility])[address] [place] [address] Hemoglobin (Bld) [Mass/Vol] 11.1 g/dL Low 11.7-16.0 [facility] Comment on above: Performed By: #### L [id number] ####Catering Coordinator: LAURA BAUTISTA ([phone])[facility]Ram[facility] ([facility])[address] [place] [address] IMMATURE GRANS % 0.7 % Normal 0.0-2.0 [facility] Comment on above: Performed By: #### L [id number] ####Catering Coordinator: LAURA BAUTISTA ([phone])[facility] ([facility])[address] [place] [address] IMMATURE GRANS ABSOLUTE 0.1 10*3/uL High <0.1 [facility] Comment on above: Performed By: #### L [id number] ####Catering Coordinator: LAURA BAUTISTA ([phone])[facility]Ram[facility] ([facility])[address] [place] [address] Lymphocytes (Bld) [#/Vol] 1.9 10*3/uL Normal 1.0-4.3 [facility] Comment on above: Performed By: #### L [id number] ####Catering Coordinator: LAURA BAUTISTA ([phone])[facility]Ram[facility] ([facility])[address] [place] [address] [place] Lymphocytes/100 WBC (Bld) 24.8 % Normal 15.0-45.0 [facility] Comment on above: Performed By: #### L [id number] ####Catering Coordinator: LAURA BAUTISTA ([phone])[facility] ([facility])[address] [place] [address] MCH (RBC) [Entitic mass] 29.4 pg Normal 26.0-34.0 [facility] Comment on above: Performed By: #### L [id number] ####Catering Coordinator: LAURA BAUTISTA ([phone])[facility] ([facility])[address] [place] [address] MCHC 32.6 % Normal 30.5-36.0 [facility] Comment on above: Performed By: #### L [id number] ####Catering Coordinator: LAURA BAUTISTA ([id number])[facility] [facility])[address] [place] [address] MCV (RBC) [Entitic vol] 90.2 fL Normal 77.0-99.0 [facility] Comment on above: Performed By: #### L [id number] ####Catering Coordinator: LAURA BAUTISTA ([phone])[facility] ([facility])[address] [place] [address] Monocytes (Bld) [#/Vol] 0.9 10*3/uL Normal 0.0-0.9 [facility] Comment on above: Performed By: #### L [id number] ####Catering Coordinator: LAURA BAUTISTA ([id number])[facility])[address] [place] [address] [place] Monocytes/100 WBC (Bld) 11.4 % Normal 5.0-13.0 [facility] Comment on above: Performed By: #### L [id number] ####Catering Coordinator: LAURA BAUTISTA ([id number])[facility] ([facility])[address] [place] [address] [place] NEUTROPHILS ABSOLUTE 4.3 10*3/uL Normal 1.8-7.5 [facility] Comment on above: Performed By: #### L [id number] ####Catering Coordinator: LAURA BAUTISTA ([phone])[facility] [facility] ([facility])[address] [place] [address] [place] Neutrophils/100 WBC (Bld) 56.3 % Normal 38.0-82.0 [facility] Comment on above: Performed By: #### L [id number] ####Catering Coordinator: LAURA BAUTISTA ([phone])[facility]Ram[facility] ([facility])[address] [place] [address] NRBC 0.0 /100 WBCs Normal 0.0-2.0 [facility] Comment on above: Performed By: #### L [id number] ####Catering Coordinator: LAURA BAUTISTA ([phone])[facility] ([facility])[address] [place] [address] Platelet mean volume (Bld) [Entitic vol] 9.4 fL Normal 9.0-12.7 [facility] Comment on above: Result Comment: MPV is a calculated measurement using platelet volume ratio Performed By: #### L [id number] ####Catering Coordinator: LAURA BAUTISTA ([id number])[facility] ([facility])[address] [place] [address] [place] Platelets (Bld) [#/Vol] 282 10*3/uL Normal 140-440 [facility] Comment on above: Performed By: #### L [id number] ####Catering Coordinator: LAURA BAUTISTA ([phone])[facility] ([facility])[address] [place] [address] [place] RBC (Bld) [#/Vol] 3.77 10*6/uL Low 3.80-5.20 [facility] Comment on above: Performed By: #### L [id number] ####Catering Coordinator: LAURA BAUTISTA ([phone])[facility] ([facility])[address] [place] [address] WBC (Bld) [#/Vol] 7.7 10*3/uL Normal 3.6-10.7 [facility] Comment on above: Performed By: #### L [id number] ####Catering Coordinator: LAURA BAUTISTA ([phone])[facility] ([facility])[address] COMPREHENSIVE METABOLIC PANE Aamir 07-13-2024 Albumin [Mass/Vol] 3.2 g/dL Low 3.4-4.8 [facility] Comment on above: Performed By: #### L [id number], LAB17 ####Catering Coordinator: LAURA BAUTISTA ([phone])[facility] ([place])[address] ALP [Catalytic activity/Vol] 65 U/L Normal 40-150 [facility] Comment on above: Performed By: #### L [id number], LAB17 ####Catering Coordinator: LAURA BAUTISTA ([phone])[facility] ([place])[address] ALT [Catalytic activity/Vol] 12 U/L Normal <30 [facility] Comment on above: Performed By: #### L [id number], LAB17 ####Catering Coordinator: LAURA BAUTISTA ([id number])[facility] ([place])[address] Anion gap [Moles/Vol] 9 mmol/L Normal 3-13 [facility] Comment on above: Performed By: #### L [id number], LAB17 ####Catering Coordinator: LAURA BAUTISTA ([phone])[facility] ([place])[address] [place] [address] [place] AST [Catalytic activity/Vol] 20 U/L Normal <34 [facility] Comment on above: Performed By: #### L [id number], LAB17 ####Catering Coordinator: LAURA BAUTISTA ([id number])[facility] ([place])[address] Bilirubin [Mass/Vol] 0.3 mg/dL Normal <1.2 [facility] Comment on above: Performed By: #### L [id number], LAB17 ####Catering Coordinator: LAURA BAUTISTA ([id number])[facility] ([place])[address] [place] [address] [place] Calcium [Mass/Vol] 9.0 mg/dL Normal 8.8-10.0 [facility] Comment on above: Performed By: #### L [id number], LAB17 ####Catering Coordinator: LAURA BAUTISTA ([phone])[facility] ([place])[address] [place] [address] [place] Chloride [Moles/Vol] 108 mmol/L High 98-107 [facility] Comment on above: Performed By: #### Jaky [id number], LAB17 ####Catering Coordinator: LAURA BAUTISTA ([phone])[facility]A [facility] ([place])[address] [place] [address] CO2 [Moles/Vol] 21 mmol/L Low 23-31 [facility] Comment on above: Performed By: #### L [id number], LAB17 ####Catering Coordinator: LAURA BAUTISTA ([id number])[facility] ([facility])[address] [place] [address] Creatinine [Mass/Vol] 2.00 mg/dL High 0.57-1.11 [facility] Comment on above: Performed By: #### L [id number], LAB17 ####Catering Coordinator: LAURA BAUTISTA ([id number])[facility] ([facility])[address] [place] [address] GLOMERULAR FILTRATION RATE ML/MIN/1.73 SQ M.PREDICTED 27.8 mL/min/1.73m*2 Low >60.0 [facility] Comment on above: Result Comment: Calc ulation based on the Chronic Kidney Disease Epidemiology Collaboration (CKD-EPI) equation refit without adjustment for race Performed By: #### L [id number], LAB17 ####Catering Coordinator: LAURA BAUTISTA ([phone])[facility] ([facility])[address] [place] [address] [place] Glucose [Mass/Vol] 370 mg/dL High 82-115 [facility] Comment on above: Performed By: #### L [id number], LAB17 ####Catering Coordinator: LAURA BAUTISTA ([phone])[facility]Ram[facility] ([facility])[address] [place] [address] [place] Potassium [Moles/Vol] 4.8 mmol/L Normal 3.5-5.1 [facility] Comment on above: Result Comment: [facility] potassium values may be up to 0.5 mmol/L lower than serum values. Performed By: #### L [id number], LAB17 ####Catering Coordinator: LAURA BAUTISTA ([phone])[facility]Ram[facility] ([facility])[address] [place] [address] [place] Protein [Mass/Vol] 6.9 g/dL Normal 6.4-8.3 [facility] Comment on above: Performed By: #### L [id number], LAB17 ####Catering Coordinator: LAURA BAUTISTA ([id number])[facility] ([facility])[address] [place] [address] [place] Sodium [Moles/Vol] 138 mmol/L Normal 136-145 [facility] Comment on above: Performed By: #### L [id number], LAB17 ####Catering Coordinator: LAURA BAUTISTA ([id number])[facility] ([facility])[address] [place] [address] [place] Urea nitrogen [Mass/Vol] 56 mg/dL High 9-23 [facility] Comment on above: Performed By: #### L [id number], LAB17 ####Catering Coordinator: LAURA BAUTISTA ([phone])[facility] ([facility])[address] [place] [address] ECG 12-LEADon 07-13-2024 ECG 12-LEAD IMPRESSION: Sinus rhythm Inferior infarct, old Compared to ECG 07/08/24 No significant change Electronically Signed On 07-13-2024 00:24:08 EDT by Grzegorz Guillen Normal [facility] ED Nursing Noteon 07-13-2024 ED Nursing Note Pt reports mid back pain, and LLE pain and swelling. Pt treated for cellulitis of lower leg. States her blood sugar was high this evening, did receive her insulin from her nurse. Unsure what type of insulin [facility] ED Provider Noteon ED Provider Note [facility] ED EMERGENCY DEPARTMENT ENCOUNTER Pt Name: [...] 12/11/2022 Performed by Micheal Silva MD at [address] ENDOSCOPY CURRENT MEDICATIONS Previous Medications ACETAMINOPHEN [...] if av (more content not included)... Normal [facility] BASIC METABOLIC PANELon - Anion gap [Moles/Vol] 9 mmol/L Normal 3-13 [facility] Comment on above: Performed By: #### L [id number] #### Catering Coordinator: LAURA BAUTISTA ([id number]) [facility]) [address] [place] [address] Calcium [Mass/Vol] 8.9 mg/dL Normal 8.8-10.0 [facility] Comment on above: Performed By: #### L AB90 #### Catering Coordinator: LAURA BAUTISTA ([phone]) [facility]) [address] [place] [address] Chloride [Moles/Vol] 109 mmol/L High 98-107 [facility] Comment on above: Performed By: #### L AB90 #### Catering Coordinator: LAURA BAUTISTA ([id number]) [facility] ([facility]) [address] [place] [address] CO2 [Moles/Vol] 21 mmol/L Low 23-31 [facility] Comment on above: Performed By: #### L AB90 #### Catering Coordinator: LAURA BAUTISTA ([phone]) [facility] ([facility]) [address] [place] [address] Creatinine [Mass/Vol] 2.14 mg/dL High 0.57-1.11 [facility] Comment on above: Performed By: #### L AB90 #### Catering Coordinator: LAURA BAUTISTA ([phone]) [facility]) [address] [place] [address] [place] GLOMERULAR FILTRATION RATE ML/MIN/1.73 SQ M.PREDICTED 25.6 mL/min/1.73m*2 Low >60.0 [facility] Comment on above: Result Comment: Calc ulation based on the Chronic Kidney Disease Epidemiology Collaboration (CKD-EPI) equation refit without adjustment for race Performed By: #### L AB90 #### Catering Coordinator: LAURA BAUTISTA ([phone]) [facility]) [address] [place] [address] Glucose [Mass/Vol] 316 mg/dL High 82-115 [facility] Comment on above: Performed By: #### L AB90 #### Catering Coordinator: LAURA BAUTISTA ([phone]) [facility]) [address] [place] [address] [place] Potassium [Moles/Vol] 5.0 mmol/L Normal 3.5-5.1 [facility] Comment on above: Result Comment: [facility] potassium values may be up to 0.5 mmol/L lower than serum values. Performed By: #### L AB90 #### Catering Coordinator: LAURA BAUTISTA ([phone]) [facility] ([facility]) [address] [place] [address] [place] Sodium [Moles/Vol] 139 mmol/L Normal 136-145 [facility] Comment on above: Performed By: #### L AB90 #### Catering Coordinator: LAURA BAUTISTA ([phone]) [facility]) [address] [place] [address] [place] Urea nitrogen [Mass/Vol] 59 mg/dL High 9-23 [facility] Comment on above: Performed By: #### L AB90 #### Catering Coordinator: LAURA [id number]) [facility]) [address] [place] [address] CBC WITH AUTO DIFFERENTIALon 07-12-2024 Basophils (Bld) [#/Vol] 0.1 10*3/uL Normal 0.0-0.2 [facility] Comment on above: Performed By: #### L [id number] ####Catering Coordinator: LAURA BAUTISTA ([phone])[facility] [facility] ([facility])[address] [place] [address] [place] Basophils/100 WBC (Bld) 0.6 % Normal 0.0-2.0 S [facility] Comment on above: Performed By: #### L [id number] ####Catering Coordinator: LAURA BAUTISTA ([phone])[facility] [facility] [facility] ([facility])[address] [place] [address] Eosinophils (Bld) [#/Vol] 0.6 10*3/uL High 0.0-0.5 [facility] Comment on above: Performed By: #### L [id number] ####Catering Coordinator: LAURA BAUTISTA ([id number])DEO VARGAS RITTMAN (SWRLAB)[address] [place] [address] Eosinophils/100 WBC (Bld) 7.3 % High 0.0-6.0 [facility] Comment on above: Performed By: #### L [id number] ####Catering Coordinator: LAURA BAUTISTA ([id number])DEO VARGAS RITTMAN (SWRLAB)[address] [place] [address] Erythrocyte distribution width (RBC) [Ratio] 12.9 % Normal 11.5-15.0 [facility] Comment on above: Performed By: #### L [id number] ####Catering Coordinator: LAURA BAUTISTA ([id number])[facility] VARGAS RITTMAN (SWRLAB)[address] [place] [address] Hematocrit (Bld) [Volume fraction] 33.2 % Low 35.0-47.0 [facility] Comment on above: Performed By: #### L [id number] ####Catering Coordinator: LAURA BAUTISTA ([id number])[facility] SOUTHRamón VARGAS RITTMAN (SWRLAB)[address] [place] [address] Hemoglobin (Bld) [Mass/Vol] 10.8 g/dL Low 11.7-16.0 [facility] Comment on above: Performed By: #### L [id number] ####Catering Coordinator: LAURA BUATISTA ([phone])[facility]THRam[facility] (SWRLAB)[address] [place] [address] IMMATURE GRANS % 0.5 % Normal 0.0-2.0 [facility] Comment on above: Performed By: #### L [id number] ####Catering Coordinator: LAURA BAUTISTA ([phone])[facility]THRamón [facility]ARG[facility] (SWRLAB)[address] [place] [address] IMMATURE GRANS ABSOLUTE 0.0 10*3/uL Normal <0.1 [facility] Comment on above: Performed By: #### L [id number] ####Catering Coordinator: LAURA BAUTISTA ([phone])[facility]THRamón [facility]ARG[facility] (SWRLAB)[address] [place] [address] [place] Lymphocytes (Bld) [#/Vol] 1.7 10*3/uL Normal 1.0-4.3 [facility] Comment on above: Performed By: #### L [id number] ####Catering Coordinator: LAURA BAUTISTA ([phone])[facility]THRamón [facility] (SWRLAB)[address] [place] [address] [place] Lymphocytes/100 WBC (Bld) 22.3 % Normal 15.0-45.0 [facility] Comment on above: Performed By: #### L [id number] ####Catering Coordinator: LAURA BAUTISTA ([phone])[facility]THRamón [facility] (SWRLAB)[address] [place] [address] MCH (RBC) [Entitic mass] 29.2 pg Normal 26.0-34.0 [facility] Comment on above: Performed By: #### L [id number] ####Catering Coordinator: LAURA BAUTISTA ([id number])[facility] (SWRLAB)[address] [place] [address] MCHC 32.5 % Normal 30.5-36.0 [facility] Comment on above: Performed By: #### L [id number] ####Catering Coordinator: LAURA BAUTISTA ([id number])[facility] (SWRLAB)[address] [place] [address] MCV (RBC) [Entitic vol] 89.7 fL Normal 77.0-99.0 [facility] Comment on above: Performed By: #### L [id number] ####Catering Coordinator: LAURA BAUTISTA ([phone])[facility] [place] (SWRLAB)[address] [place] [address] Monocytes (Bld) [#/Vol] 0.9 10*3/uL Normal 0.0-0.9 [facility] Comment on above: Performed By: #### L [id number] ####Catering Coordinator: LAURA BAUTISTA ([phone])[facility] (SWRLAB)[address] [place] [address] [place] Monocytes/100 WBC (Bld) 11.0 % Normal 5.0-13.0 [facility] Comment on above: Performed By: #### L [id number] ####Catering Coordinator: LAURA BAUTISTA ([phone])[facility] (SWRLAB)[address] [place] [address] [place] NEUTROPHILS ABSOLUTE 4.5 10*3/uL Normal 1.8-7.5 [facility] Comment on above: Performed By: #### L [id number] ####Catering Coordinator: LAURA BAUTISTA ([phone])[facility] [place] (SWRLAB)[address] [place] [address] [place] Neutrophils/100 WBC (Bld) 58.3 % Normal 38.0-82.0 [facility] Comment on above: Performed By: #### L [id number] ####Catering Coordinator: LAURA BAUTISTA ([id number])[facility]THRamón [facility] (SWRLAB)[address] [place] [address] NRBC 0.0 /100 WBCs Normal 0.0-2.0 [facility] Comment on above: Performed By: #### L [id number] ####Catering Coordinator: LAURA BAUTISTA ([phone])[facility]THRamón [facility] (SWRLAB)[address] [place] [address] Platelet mean volume (Bld) [Entitic vol] 9.7 fL Normal 9.0-12.7 [facility] Comment on above: Result Comment: MPV is a calculated measurement using platelet volume ratio Performed By: #### L [id number] ####Catering Coordinator: LAURA BAUTISTA ([phone])[facility] S[facility]THRamón [facility] (SWRLAB)[address] [place] [address] [place] Platelets (Bld) [#/Vol] 278 10*3/uL Normal 140-440 [facility] Comment on above: Performed By: #### L [id number] ####Catering Coordinator: LAURA BAUTISTA ([id number])[facility]THRamón [facility] (SWRLAB)[address] [place] [address] [place] RBC (Bld) [#/Vol] 3.70 10*6/uL Low 3.80-5.20 [facility] Comment on above: Performed By: #### L [id number] ####Catering Coordinator: LAURA BAUTISTA ([phone])[facility]THRamón [facility] (SWRLAB)[address] [place] [address] [place] WBC (Bld) [#/Vol] 7.8 10*3/uL Normal 3.6-10.7 [facility] Comment on above: Performed By: #### L [id number] ####Catering Coordinator: LAURA BAUTISTA ([phone])[facility] (SWRLAB)[address] ED Provider Noteon ED Provider Note Emergency Department Encounter [facility] ED Patient: Cinthya Castillo : 1960 Date of Evaluation: 07/12/2024 ED Provider: Grzegorz Guillen DO Chief Complaint Chief Complaint Patient presents with Fall Pt. Reports bilateral hip pain WAMPANOAG Cinthya Castillo is a 63 y.o. female [...] 12/11/2022 Performed by Micheal Silva MD at [address] ENDOSCOPY Social History Socioeconomic History Marital [...] knee, dorsiflex (more content not included)... Normal [facility] HIGH SENSITIVITY TROPONIN, S ERIAL BASELINEon 07-12-2024 TROPONIN HS SERIAL BASELINE 6 ng/L Normal <=14 [facility] Comment on above: Result Comment: In i ndividuals presenting with symptoms > 2h, a baseline troponin <= 5 ng/L suggests acute cardiac injury is unlikely and further serial testing is generally not indicated. Performed By: #### L AB90 #### Catering Coordinator: LAURA BAUTISTA ([phone]) [facility] ([address] 30on 07-11-2024 30 Problem: Knowledge Deficit Goal: [...] or improved Outcome: Adequate for Discharge Normal [facility] [id number] 07-11-2024 [id number] Next Site of Care Admission Date: 07/08/2024 07:50 PM Patient Name: CINTHYA CASTILLO Location: [address]/[facility] [id number] A Date of : 1960 ---- Placement Information ---- Referral Type:Halfway/SNF - Return Referral ID:[id number] Provider Name:Mira michaela QuintanillaSam Address 1:[address] [place] [address] [address] Address 2: City:[place] Selection Factors:Returning to Facility State:[place] [facility] [phone] Confirmed pickup anh e of 130 by transport [place] at phone number [phone]. Location of facility drop off is return back to [facility]. Facility notified via [facility], [facility] notified on secure chat. 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 Awaiting time confirmation. [facility] [phone] [facility] transmitted to via [facility]port per TCC request. Normal [facility] CBC WITH AUTO DIFFERENTIALon 07-11-2024 Basophils (Bld) [#/Vol] 0.0 10*3/uL Normal 0.0-0.2 [facility] Comment on above: Performed By: #### L [id number] ####Catering Coordinator: YOLETTE CROWE ([phone])[facility]A [place] (SBHLAB)[address] Basophils/100 WBC (Bld) 0.4 % Normal 0.0-2.0 [facility] Comment on above: Performed By: #### L [id number] ####Catering Coordinator: YOLETTE CROWE ([id number])[facility]A [place] (SBAB)[address] [place] [address] Eosinophils (Bld) [#/Vol] 0.5 10*3/uL Normal 0.0-0.5 [facility] Comment on above: Performed By: #### L [id number] ####Catering Coordinator: YOLETTE CROWE ([phone])[facility]A [facility] ([facility])[address] [place] [address] Eosinophils/100 WBC (Bld) 5.1 % Normal 0.0-6.0 [facility] Comment on above: Performed By: #### L [id number] ####Catering Coordinator: YOLETTE CROWE ([id number])[facility]A [facility] (SBAB)[address] [place] [address] Erythrocyte distribution width (RBC) [Ratio] 12.7 % Normal 11.5-15.0 [facility] Comment on above: Performed By: #### L [id number] ####Catering Coordinator: YOLETTE CROWE ([phone])[facility] (SBAB)[address] [place] [address] Hematocrit (Bld) [Volume fraction] 35.9 % Normal 35.0-47.0 [facility] Comment on above: Performed By: #### L [id number] ####Catering Coordinator: YOLETTE CROWE ([phone])[facility] SOUTHRamón [facility] CENTERKina ([facility]AB)[address] Hemoglobin (Bld) [Mass/Vol] 11.3 g/dL Low 11.7-16.0 [facility] Comment on above: Performed By: #### L [id number] ####Catering Coordinator: YOLETTE CROWE ([phone])[facility] SOUTHRamón [facility] CENTERKina ([facility]AB)[address] IMMATURE GRANS % 0.6 % Normal 0.0-2.0 [facility] Comment on above: Performed By: #### L [id number] ####Catering Coordinator: YOLETTE CROWE ([phone])[facility] ([facility])[address] [place] [address] IMMATURE GRANS ABSOLUTE 0.1 10*3/uL High <0.1 [facility] Comment on above: Performed By: #### L [id number] ####Catering Coordinator: YOLETTE CROWE ([phone])[facility] ([facility])[address] [place] [address] Lymphocytes (Bld) [#/Vol] 1.6 10*3/uL Normal 1.0-4.3 [facility] Comment on above: Performed By: #### L [id number] ####Catering Coordinator: YOLETTE CROWE ([id number])[facility] ([facility])[address] Lymphocytes/100 WBC (Bld) 18.2 % Normal 15.0-45.0 [facility] Comment on above: Performed By: #### L [id number] ####Catering Coordinator: YOLETTE CROWE ([phone])[facility] ([facility])[address] [place] [address] MCH (RBC) [Entitic mass] 28.9 pg Normal 26.0-34.0 [facility] Comment on above: Performed By: #### L [id number] ####Catering Coordinator: YOLETTE TREVIZOGILBERT ([id number])[facility] (SBHLAB)[address] MCHC 31.5 % Normal 30.5-36.0 [facility] Comment on above: Performed By: #### L [id number] ####Catering Coordinator: YOLETTE TREVIZOGILBERT ([id number])[facility] [place] (SBHLAB)[address] MCV (RBC) [Entitic vol] 91.8 fL Normal 77.0-99.0 [facility] Comment on above: Performed By: #### L [id number] ####Catering Coordinator: YOLETTE SEBASTIEN ([id number])[facility] (SBHLAB)[address] [place] [address] Monocytes (Bld) [#/Vol] 1.0 10*3/uL High 0.0-0.9 [facility] Comment on above: Performed By: #### L [id number] ####Catering Coordinator: YOLETTE CROWE ([phone])[facility] SOUTHRamón [place]BROBBI[place] (SBHLAB)[address] Monocytes/100 WBC (Bld) 11.4 % Normal 5.0-13.0 [facility] Comment on above: Performed By: #### L [id number] ####Catering Coordinator: YOLETTE TREVIZOGILBERT ([phone])[facility]A [place] (SBHLAB)[address] NEUTROPHILS ABSOLUTE 5.7 10*3/uL Normal 1.8-7.5 [facility] Comment on above: Performed By: #### L [id number] ####Catering Coordinator: YOLETTE TREVIZOGILBERT ([id number])[facility]A [place] (SBHLAB)[address] Neutrophils/100 WBC (Bld) 64.3 % Normal 38.0-82.0 [facility] Comment on above: Performed By: #### L [id number] ####Catering Coordinator: YOLETTE SEBASTIEN ([id number])[facility]A [place] (SBHLAB)[address] NRBC 0.0 /100 WBCs Normal 0.0-2.0 [facility] Comment on above: Performed By: #### L [id number] ####Catering Coordinator: YOLETTE SEBASTIEN ([id number])[facility] [place] (SBHLAB)[address] Platelet mean volume (Bld) [Entitic vol] 9.5 fL Normal 9.0-12.7 [facility] Comment on above: Performed By: #### L [id number] ####Catering Coordinator: YOLETTEFILIBERTO CROWE ([phone])[facility] SOUTHRamón KWANN (SBHLAB)[address] [place] [address] Platelets (Bld) [#/Vol] 277 10*3/uL Normal 140-440 [facility] Comment on above: Performed By: #### L [id number] ####Catering Coordinator: YOLETTE SEBASTIEN ([phone])[facility] SOUTHRamón [facility] (SBHLAB)[address] RBC (Bld) [#/Vol] 3.91 10*6/uL Normal 3.80-5.20 [facility] Comment on above: Performed By: #### L [id number] ####Catering Coordinator: YOLETTE HENDRICKSDANIEL ([id number])[facility]A [facility] (SBHLAB)[address] WBC (Bld) [#/Vol] 8.9 10*3/uL Normal 3.6-10.7 [facility] Comment on above: Performed By: #### L [id number] ####Catering Coordinator: YOLETTE HENDRICKSDANIEL ([id number])[facility]A [place] (SBHLAB)[address] COMPREHENSIVE METABOLIC PANE Aamir 07-11-2024 Albumin [Mass/Vol] 3.0 g/dL Low 3.4-4.8 [facility] Comment on above: Performed By: #### L AB17 #### Catering Coordinator: YOLETTE CROWE ([id number]) [facility] (HLAB) [address] ALP [Catalytic activity/Vol] 55 U/L Normal 40-150 [facility] Comment on above: Performed By: #### L AB17 #### Catering Coordinator: YOLETTE CROWE ([id number]) [facility] (HLAB) [address] ALT [Catalytic activity/Vol] 10 U/L Normal <30 [facility] Comment on above: Performed By: #### L AB17 #### Catering Coordinator: YOLETTE CROWE ([phone]) [facility] ([facility]) [address] Anion gap [Moles/Vol] 8 mmol/L Normal 3-13 [facility] Comment on above: Performed By: #### L AB17 #### Catering Coordinator: YOLETTE CROWE ([id number]) [facility] ([facility]) [address] AST [Catalytic activity/Vol] 19 U/L Normal <34 [facility] Comment on above: Performed By: #### L AB17 #### Catering Coordinator: YOLETTE CROWE ([phone]) [facility] ([facility]) [address] Bilirubin [Mass/Vol] 0.2 mg/dL Normal <1.2 [facility] Comment on above: Performed By: #### L AB17 #### Catering Coordinator: YOLETTE CROWE ([phone]) [facility] ([facility]) [address] Calcium [Mass/Vol] 8.5 mg/dL Low 8.8-10.0 [facility] Comment on above: Performed By: #### L AB17 #### Catering Coordinator: YOLETTE CROWE ([id number]) [facility] (SBHLAB) [address] Chloride [Moles/Vol] 112 mmol/L High 98-107 [facility] Comment on above: Performed By: #### L AB17 #### Catering Coordinator: YOLETTE CROWE ([phone]) [facility] (SBHLAB) [address] CO2 [Moles/Vol] 20 mmol/L Low 23-31 [facility] Comment on above: Performed By: #### L AB17 #### Catering Coordinator: YOLETTE TREVIZOGILBERT ([id number]) [facility] ([facility]) [address] Creatinine [Mass/Vol] 2.12 mg/dL High 0.57-1.11 [facility] Comment on above: Performed By: #### L AB17 #### Catering Coordinator: YOLETTE CROWE ([id number]) [facility] ([facility]) [address] GLOMERULAR FILTRATION RATE ML/MIN/1.73 SQ M.PREDICTED 25.9 mL/min/1.73m*2 Low >60.0 [facility] Comment on above: Result Comment: Calc ulation based on the Chronic Kidney Disease Epidemiology Collaboration (CKD-EPI) equation refit without adjustment for race Performed By: #### L AB17 #### Catering Coordinator: YOLETTE CROWE ([id number]) [facility] (HLAB) [address] Glucose [Mass/Vol] 120 mg/dL High 82-115 [facility] Comment on above: Performed By: #### L AB17 #### Catering Coordinator: YOLETTE CROWE ([id number]) [facility] ([facility]) [address] Potassium [Moles/Vol] 4.2 mmol/L Normal 3.5-5.1 [facility] Comment on above: Result Comment: [facility] potassium values may be up to 0.5 mmol/L lower than serum values. Performed By: #### L AB17 #### Catering Coordinator: YOLETTEFILIBERTO CROWE ([phone]) [facility] (SBHLAB) [address] Protein [Mass/Vol] 6.5 g/dL Normal 6.4-8.3 [facility] Comment on above: Performed By: #### L AB17 #### Catering Coordinator: YOLETTE SEBASTIEN ([id number]) [facility] (SBHLAB) [address] Sodium [Moles/Vol] 140 mmol/L Normal 136-145 [facility] Comment on above: Performed By: #### L AB17 #### Catering Coordinator: YOLETTE SEBASTIEN ([id number]) [facility] (SBHLAB) [address] Urea nitrogen [Mass/Vol] 48 mg/dL High 9-23 [facility] Comment on above: Performed By: #### L AB17 #### Catering Coordinator: YOLETTE CROWE ([id number]) [facility] (SBHLAB) [address] Nursing Noteon 07-11-2024 Nursing Note Report given to Alfreda wilcox at [facility]. All questions answered at this time. Normal [facility] Nursing Note Called report to [facility], Nurse not available to accept call. Will try again at another time. Normal [facility] Progress Noteon 07-11-2024 Progress Note Seen and examined. Doing well. D/w pt and ESTHER Morrissey, separately. Will discharge today. Normal [facility] Progress Note OCCUPATIONAL THERAPY [facility] Treatment Note Name/MRN: Cinthya Castillo ([id number]) Date of : 1960 Age: 63 y.o. Room/Bed: H0-340/T2-793 A Visit #: 1 out of 8 visits Discharge Recommendation: Home with Home health OT (return to [place]) Equipment Needed: No Prior Level of Function [...] still recommending pt to discharge back to [facility] with home health OT. Subjective Pt [...] Minutes (1 ADL, 1 ACT) ILYA Bourne/Jaky [facility] 30on 07-10-2024 30 Problem: Knowledge Deficit Goal: [...] maintained or improved Outcome: Progressing Flowsheets (Taken 07/10/2024 1787) Perineal skin integrity is maintained or improved: Assess genitourinary system, perineal skin, labs (urinalysis), and history of incontinence to include past management, aggravating, and alleviating factors Keep skin clean and dry [facility] 30 Problem: Knowledge Deficit Goal: Patient/family/caregiv er demonstrates understanding of disease process, treatment plan, medications, and discharge instructions Outcome: Progressing Problem: Potential for Compromised Skin Integrity Goal: Skin Integrity is Maintained or Improved Outcome: Progressing Goal: Nutritional status is improving Outcome: Progressing Problem: Urinary Incontinence Goal: Perineal skin integrity is maintained or improved Outcome: Progressing Normal [facility] [id number] 07-10-2024 [id number] Patient is from [facility], and was admitted with left leg cellulitis. Per Kristine at facility, she is a bedhold and is ok to return at discharge. She is currently receiving IV cefepime and vancomycin. PT/OT consulted. CM following to assist with discharge needs. [facility] [phone] Pt is on Medicaid an d from a facility ([facility]). If she returns, she will not need PASRR, per other web content & social media manager, Ricardo Brown. [facility] BASIC METABOLIC PANELon 04-2 Anion gap [Moles/Vol] 8 mmol/L Normal 3-13 [facility] Comment on above: Performed By: #### L AB15 ####Catering Coordinator: YOLETTE CROWE ([phone])[facility] (SBHLAB)[address] [place] [address] Calcium [Mass/Vol] 8.4 mg/dL Low 8.8-10.0 [facility] Comment on above: Performed By: #### L AB15 ####Catering Coordinator: YOLETTE CROWE ([phone])[facility] (SBHLAB)[address] [place] [address] [place] Chloride [Moles/Vol] 114 mmol/L High 98-107 [facility] Comment on above: Performed By: #### L AB15 ####Catering Coordinator: YOLETTE CROWE ([phone])[facility] (SBHLAB)[address] CO2 [Moles/Vol] 20 mmol/L Low 23-31 [facility] Comment on above: Performed By: #### L AB15 ####Catering Coordinator: YOLETTE CROWE ([phone])[facility] (SBHLAB)[address] Creatinine [Mass/Vol] 2.13 mg/dL High 0.57-1.11 [facility] Comment on above: Performed By: #### L AB15 ####Catering Coordinator: YOLETTE CROWE ([phone])[facility] ([facility])[address] [place] [address] [place] GLOMERULAR FILTRATION RATE ML/MIN/1.73 SQ M.PREDICTED 25.8 mL/min/1.73m*2 Low >60.0 [facility] Comment on above: Result Comment: Calc ulation based on the Chronic Kidney Disease Epidemiology Collaboration (CKD-EPI) equation refit without adjustment for race Performed By: #### L AB15 ####Catering Coordinator: YOLETTE CROWE ([id number])[facility]BSAN [facility] (SBHLAB)[address] [place] [address] [place] Glucose [Mass/Vol] 150 mg/dL High 82-115 [facility] Comment on above: Performed By: #### L AB15 ####Catering Coordinator: YOLETTE CROWE ([id number])[facility] (SBHLAB)[address] [place] [address] [place] Potassium [Moles/Vol] 4.8 mmol/L Normal 3.5-5.1 [facility] Comment on above: Result Comment: [facility] potassium values may be up to 0.5 mmol/L lower than serum values. Performed By: #### L AB15 ####Catering Coordinator: YOLETTE CROWE ([id number])[facility]ZCES[facility] (SBHLAB)[address] Sodium [Moles/Vol] 142 mmol/L Normal 136-145 [facility] Comment on above: Performed By: #### L AB15 ####Catering Coordinator: YOLETTE CROWE ([phone])[facility] SOUTHRamón KWANKina (SBHLAB)[address] Urea nitrogen [Mass/Vol] 54 mg/dL High 9-23 [facility] Comment on above: Performed By: #### L AB15 ####Catering Coordinator: YOLETTE CROWE ([phone])[facility] SOUTHRamón [place] (SBHLAB)[address] [place] [address] CBC WITH AUTO DIFFERENTIALon 07-10-2024 Basophils (Bld) [#/Vol] 0.1 10*3/uL Normal 0.0-0.2 [facility] Comment on above: Performed By: #### L AB90 #### Catering Coordinator: LAURA BAUTISTA ([id number]) [facility] ([facility]) [address] [place] [address] [place] Basophils/100 WBC (Bld) 0.7 % Normal 0.0-2.0 [facility] Comment on above: Performed By: #### L AB90 #### Catering Coordinator: LAURA BAUTISTA ([phone]) [facility] ([facility]) [address] [place] [address] [place] Eosinophils (Bld) [#/Vol] 0.4 10*3/uL Normal 0.0-0.5 [facility] Comment on above: Performed By: #### L [id number] #### Catering Coordinator: LAURA BAUTISTA ([phone]) [facility] ([facility]) [address] [place] [address] [place] Eosinophils/100 WBC (Bld) 4.8 % Normal 0.0-6.0 [facility] Comment on above: Performed By: #### L [id number] #### Catering Coordinator: LAURA BAUTISTA ([phone]) [facility]) [address] [place] [address] Erythrocyte distribution width (RBC) [Ratio] 12.9 % Normal 11.5-15.0 [facility] [facility] Comment on above: Performed By: #### L AB90 #### Catering Coordinator: LAURA BAUTISTA ([phone]) [facility] ([facility]) [address] [place] [address] Hematocrit (Bld) [Volume fraction] 37.2 % Normal 35.0-47.0 [facility] Comment on above: Performed By: #### L AB90 #### Catering Coordinator: LAURA BAUTISTA ([phone]) [facility]) [address] [place] [address] Hemoglobin (Bld) [Mass/Vol] 11.4 g/dL Low 11.7-16.0 [facility] Comment on above: Performed By: #### L AB90 #### Catering Coordinator: LAURA BAUTISTA ([phone]) [facility] ([facility]) [address] [place] [address] IMMATURE GRANS % 0.6 % Normal 0.0-2.0 [facility] Comment on above: Performed By: #### L AB90 #### Catering Coordinator: LAURA BAUTISTA ([phone]) [facility]) [address] [place] [address] IMMATURE GRANS ABSOLUTE 0.1 10*3/uL High <0.1 [facility] Comment on above: Performed By: #### L AB90 #### Catering Coordinator: LAURA BAUTISTA ([phone]) [facility] ([facility]) [address] [place] [address] Lymphocytes (Bld) [#/Vol] 1.9 10*3/uL Normal 1.0-4.3 [facility] Comment on above: Performed By: #### L AB90 #### Catering Coordinator: LAURA BAUTISTA ([phone]) [facility]) [address] [place] [address] Lymphocytes/100 WBC (Bld) 22.4 % Normal 15.0-45.0 [facility] Comment on above: Performed By: #### L AB90 #### Catering Coordinator: LAURA BAUTISTA ([id number]) [facility]) [address] [place] [address] MCH (RBC) [Entitic mass] 28.5 pg Normal 26.0-34.0 [facility] Comment on above: Performed By: #### L AB90 #### Catering Coordinator: LAURA BAUTISTA ([phone]) [facility] ([facility]) [address] [place] [address] MCHC 30.6 % Normal 30.5-36.0 [facility] Comment on above: Performed By: #### L AB90 #### Catering Coordinator: LAURA BAUTISTA ([phone]) [facility]) [address] [place] [address] MCV (RBC) [Entitic vol] 93.0 fL Normal 77.0-99.0 [facility] Comment on above: Performed By: #### L AB90 #### Catering Coordinator: LAURA BAUTISTA ([id number]) [facility]) [address] [place] [address] Monocytes (Bld) [#/Vol] 1.0 10*3/uL High 0.0-0.9 [facility] Comment on above: Performed By: #### L AB90 #### Catering Coordinator: LAURA BAUTISTA ([phone]) [facility]) [address] [place] [address] Monocytes/100 WBC (Bld) 12.3 % Normal 5.0-13.0 [facility] Comment on above: Performed By: #### L AB90 #### Catering Coordinator: LAURA BAUTISTA ([phone]) [facility]) [address] [place] [address] NEUTROPHILS ABSOLUTE 5.0 10*3/uL Normal 1.8-7.5 [facility] Comment on above: Performed By: #### L AB90 #### Catering Coordinator: LAURA BAUTISTA ([phone]) [facility] ([facility]) [address] [place] [address] Neutrophils/100 WBC (Bld) 59.2 % Normal 38.0-82.0 [facility] Comment on above: Performed By: #### L AB90 #### Catering Coordinator: LAURA BAUTISTA ([phone]) [facility]) [address] [place] [address] NRBC 0.0 /100 WBCs Normal 0.0-2.0 [facility] Comment on above: Performed By: #### L AB90 #### Catering Coordinator: LAURA BAUTISTA ([phone]) [facility] ([facility]) [address] [place] [address] Platelet mean volume (Bld) [Entitic vol] 9.5 fL Normal 9.0-12.7 [facility] Comment on above: Performed By: #### L AB90 #### Catering Coordinator: LAURA BAUTISTA ([phone]) [facility] [address] [place] [address] Platelets (Bld) [#/Vol] 258 10*3/uL Normal 140-440 [facility] Comment on above: Performed By: #### L AB90 #### Catering Coordinator: LAURA BAUTISTA ([phone]) [facility] ([facility]) [address] [place] [address] RBC (Bld) [#/Vol] 4.00 10*6/uL Normal 3.80-5.20 [facility] Comment on above: Performed By: #### L AB90 #### Catering Coordinator: LAURA BAUTISTA ([id number]) [facility]) [address] [place] [address] WBC (Bld) [#/Vol] 8.5 10*3/uL Normal 3.6-10.7 [facility] Comment on above: Performed By: #### L AB90 #### Catering Coordinator: LAURA BAUTISTA ([phone]) [facility]) [address] [place] [address] [place] Consulton 04-21-2025 Consult Vancomycin therapy h as been discontinued by Dr. Sy on 07/10/24. Thank you for the consult. Pharmacy signing off for vancomycin dosing. Sandy Ruiz [facility] Date: 07/10/24 Time: 12:02 PM Normal [facility] Consult [facility] Wound Care CONSULT Note Cinthya Castillo AGE: [...] 12/11/2022 Performed by Micheal Silva MD at [facility] END[facility]COPY FAMILY HISTORY Family History Problem [...] to follow Recommend to follow up at [facility] Outpatient wound care center after hospital discharge. Any questions or concerns please secure chat "[facility] wound/ostomy". Thank you for the consult! I pe (more content not included)... Normal [facility] Progress Noteon 07-10-2024 Progress Note -- Attestation signed by Benny Beltran OT at 07/10/2024 2:13 PM I certify that I was present during the entire session and guided the care given by the Student Occupational Therapist. Cosign: OCCUPATIONAL THERAPY [facility] Initial Evaluation Name/MRN: Cinthya Castillo ([id number]) Evaluation Date: 07/10/2024 Date of : 1960 Admission Date: 07/08/2024 7:50 PM Age: 63 y.o. Room/Bed: B4465/B4465 A Discharge Recommendation: Home with Home health [...] 12/11/2022 Performed by Micheal Silva MD at [address] ENDOSCOPY Admission Diagnosis: Patient Active Problem [...] to Person Social/Functional History Patient admitted from [facility]. Assistive Equipment: front wheeled walker Prior [...] to c (more content not included)... Normal [facility] Progress Note Nutrition rescreen completed. Chart reviewed. Patient to be monitored and followed by the diet lube technician. Normal [facility] VANCOMYCIN, AUC TIMED DOSING on 07-10-2024 VANCOMYCIN, AUC 20.3 ug/mL Normal [facility] Comment on above: Result Comment: MITRA R COMMENTS: Please draw random level at least >2 hours after the end of the last vancomycin infusion, or 30-minutes before next infusion. Toxicity is seen at concentrations >80-100 ug/mL Therapeutic (Peak) range: 20-40 Therapeutic (Trough) range: 5-10 Performed By: #### L AB90 #### Catering Coordinator: LAURA BAUTISTA ([phone]) [facility] ([facility]) [address] [place] [address] CBC WITH AUTO DIFFERENTIALon 07-09-2024 Basophils (Bld) [#/Vol] 0.1 10*3/uL Normal 0.0-0.2 [facility] Comment on above: Performed By: #### L AB90 #### Catering Coordinator: LAURA BAUTISTA ([phone]) [facility] ([facility]) [address] [place] [address] Basophils/100 WBC (Bld) 0.6 % Normal 0.0-2.0 [facility] Comment on above: Performed By: #### L AB90 #### Catering Coordinator: LAURA BAUTISTA ([id number]) [facility] ([facility]) [address] [place] [address] Eosinophils (Bld) [#/Vol] 0.3 10*3/uL Normal 0.0-0.5 [facility] Comment on above: Performed By: #### L AB90 #### Catering Coordinator: LAURA BAUTISTA ([phone]) [facility] ([facility]) [address] [place] [address] Eosinophils/100 WBC (Bld) 4.0 % Normal 0.0-6.0 [facility] Comment on above: Performed By: #### L AB90 #### Catering Coordinator: LAURA BAUTISTA ([id number]) [facility]) [address] [place] [address] Erythrocyte distribution width (RBC) [Ratio] 13.4 % Normal 11.5-15.0 [facility] Comment on above: Performed By: #### L AB90 #### Catering Coordinator: LAURA [id number]) [facility] ([facility]) [address] [place] [address] Hematocrit (Bld) [Volume fraction] 34.9 % Low 35.0-47.0 [facility] Comment on above: Performed By: #### L AB90 #### Catering Coordinator: LAURA BAUTISTA ([id number]) [facility]) [address] [place] [address] Hemoglobin (Bld) [Mass/Vol] 11.4 g/dL Low 11.7-16.0 [facility] Comment on above: Performed By: #### L AB90 #### Catering Coordinator: LAURA BAUTISTA ([phone]) [facility]) [address] [place] [address] IMMATURE GRANS % 0.5 % Normal 0.0-2.0 [facility] Comment on above: Performed By: #### L AB90 #### Catering Coordinator: LAURA BAUTISTA ([phone]) [facility]) [address] [place] [address] IMMATURE GRANS ABSOLUTE 0.0 10*3/uL Normal <0.1 [facility] Comment on above: Performed By: #### L AB90 #### Catering Coordinator: LAURA BAUTISTA ([phone]) [facility]) [address] [place] [address] Lymphocytes (Bld) [#/Vol] 2.1 10*3/uL Normal 1.0-4.3 [facility] Comment on above: Performed By: #### L AB90 #### Catering Coordinator: LAURA BAUTISTA ([phone]) [facility]) [address] [place] [address] Lymphocytes/100 WBC (Bld) 26.5 % Normal 15.0-45.0 [facility] Comment on above: Performed By: #### L AB90 #### Catering Coordinator: LAURA BAUTISTA ([id number]) [facility] ([facility]) [address] [place] [address] MCH (RBC) [Entitic mass] 29.5 pg Normal 26.0-34.0 [facility] Comment on above: Performed By: #### L AB90 #### Catering Coordinator: LAURA BAUTISTA ([phone]) [facility]) [address] [place] [address] MCHC 32.7 % Normal 30.5-36.0 [facility] Comment on above: Performed By: #### L AB90 #### Catering Coordinator: LAURA BAUTISTA ([phone]) [facility]) [address] [place] [address] MCV (RBC) [Entitic vol] 90.2 fL Normal 77.0-99.0 [facility] Comment on above: Performed By: #### L AB90 #### Catering Coordinator: LAURA BAUTISTA ([id number]) [facility]) [address] [place] [address] Monocytes (Bld) [#/Vol] 1.0 10*3/uL High 0.0-0.9 [facility] Comment on above: Performed By: #### L AB90 #### Catering Coordinator: LAURA BAUTISTA ([phone]) [facility]) [address] [place] [address] Monocytes/100 WBC (Bld) 13.1 % High 5.0-13.0 [facility] Comment on above: Performed By: #### L AB90 #### Catering Coordinator: LAURA BAUTISTA ([phone]) [facility]) [address] [place] [address] NEUTROPHILS ABSOLUTE 4.3 10*3/uL Normal 1.8-7.5 [facility] Comment on above: Performed By: #### L AB90 #### Catering Coordinator: LAURA BAUTISTA ([phone]) [facility]) [address] [place] [address] Neutrophils/100 WBC (Bld) 55.3 % Normal 38.0-82.0 [facility] Comment on above: Performed By: #### L AB90 #### Catering Coordinator: LAURA BAUTISTA ([id number]) [facility] ([facility]) [address] [place] [address] NRBC 0.0 /100 WBCs Normal 0.0-2.0 [facility] Comment on above: Performed By: #### L AB90 #### Catering Coordinator: LAURA BAUTISTA ([id number]) [facility] ([facility]) [address] [place] [address] Platelet mean volume (Bld) [Entitic vol] 10.7 fL Normal 9.0-12.7 [facility] Comment on above: Performed By: #### L AB90 #### Catering Coordinator: LAURA BAUTISTA ([id number]) [facility] ([facility]) [address] [place] [address] Platelets (Bld) [#/Vol] 376 10*3/uL Normal 140-440 [facility] Comment on above: Performed By: #### L AB90 #### Catering Coordinator: LAURA BAUTISTA ([phone]) [facility] ([facility]) [address] [place] [address] RBC (Bld) [#/Vol] 3.87 10*6/uL Normal 3.80-5.20 [facility] Comment on above: Performed By: #### L AB90 #### Catering Coordinator: LAURA BAUTISTA ([phone]) [facility] ([facility]) [address] [place] [address] WBC (Bld) [#/Vol] 7.8 10*3/uL Normal 3.6-10.7 [facility] Comment on above: Performed By: #### L AB90 #### Catering Coordinator: LAURA BAUTISTA ([phone]) [facility] ([facility]) [address] [place] [address] COMPREHENSIVE METABOLIC PANE Aamir 07-09-2024 Albumin [Mass/Vol] 3.3 g/dL Low 3.4-4.8 [facility] Comment on above: Performed By: #### L AB17, [id number] ####Catering Coordinator: YOLETTE CROWE ([id number])[facility] [place] ([facility])[address] ALP [Catalytic activity/Vol] 59 U/L Normal 40-150 [facility] Comment on above: Performed By: #### Jaky HOLT17, [id number] ####Catering Coordinator: YOLETTE CROWE ([id number])[facility] ([facility])[address] [place] [address] [place] ALT [Catalytic activity/Vol] 11 U/L Normal <30 [facility] Comment on above: Performed By: #### Jaky CHAUHAN, [id number] ####Catering Coordinator: YOLETTE CROWE ([id number])[facility] ([facility])[address] Anion gap [Moles/Vol] 8 mmol/L Normal 3-13 [facility] Comment on above: Performed By: #### Jaky CHAUHAN, [id number] ####Catering Coordinator: YOLETTE CROWE ([id number])[facility] ([facility])[address] [place] [address] [place] AST [Catalytic activity/Vol] 20 U/L Normal <34 [facility] Comment on above: Performed By: #### Jaky HOLT17, [id number] ####Catering Coordinator: YOLETTE CROWE ([id number])[facility] ([facility])[address] [place] [address] [place] Bilirubin [Mass/Vol] 0.3 mg/dL Normal <1.2 [facility] Comment on above: Performed By: #### Jaky AB17, [id number] ####Catering Coordinator: YOLETTE CROWE ([id number])[facility] ([facility])[address] [place] [address] [place] Calcium [Mass/Vol] 8.4 mg/dL Low 8.8-10.0 [facility] Comment on above: Performed By: #### Jaky AB17, [id number] ####Catering Coordinator: YOLETTE CROWE ([id number])[facility] [place] ([facility])[address] [place] [address] [place] Chloride [Moles/Vol] 112 mmol/L High 98-107 [facility] Comment on above: Performed By: #### Jaky AB17, [id number] ####Catering Coordinator: YOLETTE CROWE ([id number])[facility] [place] ([facility])[address] [place] [address] [place] CO2 [Moles/Vol] 22 mmol/L Low 23-31 [facility] Comment on above: Performed By: #### Jaky HOLT17, [id number] ####Catering Coordinator: YOLETTE CROWE ([phone])[facility] [place] ([facility])[address] Creatinine [Mass/Vol] 2.37 mg/dL High 0.57-1.11 [facility] Comment on above: Performed By: #### Jaky CHAUHAN, [id number] ####Catering Coordinator: YOLETTE CROWE ([phone])[facility] [place] ([facility])[address] [place] [address] [place] GLOMERULAR FILTRATION RATE ML/MIN/1.73 SQ M.PREDICTED 22.7 mL/min/1.73m*2 Low >60.0 [facility] Comment on above: Result Comment: Calc ulation based on the Chronic Kidney Disease Epidemiology Collaboration (CKD-EPI) equation refit without adjustment for race Performed By: #### Jaky CHAUHAN, [id number] ####Catering Coordinator: YOLETTE CROWE ([id number])[facility] [place] ([facility])[address] [place] [address] [place] Glucose [Mass/Vol] 227 mg/dL High 82-115 [facility] Comment on above: Performed By: #### L AB17, [id number] ####Catering Coordinator: YOLETTE CROWE ([id number])[facility] ([facility])[address] [place] [address] [place] Potassium [Moles/Vol] 4.6 mmol/L Normal 3.5-5.1 [facility] Comment on above: Result Comment: [facility] potassium values may be up to 0.5 mmol/L lower than serum values. Performed By: #### Jaky AB17, [id number] ####Catering Coordinator: YOLETTE CROWE ([id number])[facility] [place] ([facility])[address] Protein [Mass/Vol] 6.5 g/dL Normal 6.4-8.3 [facility] Comment on above: Performed By: #### Jaky AB17, [id number] ####Catering Coordinator: YOLETTE CROWE ([phone])[facility] [place] ([facility])[address] Sodium [Moles/Vol] 142 mmol/L Normal 136-145 [facility] Comment on above: Performed By: #### Jaky HOLT17, [id number] ####Catering Coordinator: YOLETTE CROWE ([id number])[facility] ([facility])[address] [place] [address] Urea nitrogen [Mass/Vol] 58 mg/dL High 9-23 [facility] Comment on above: Performed By: #### Jaky AB17, [id number] ####Catering Coordinator: YOLETTE CROWE ([phone])[facility] ([facility])[address] [place] [address] Consulton 07-09-2024 Consult Pharmacy Managed Vancomycin Dosing [...] creatinine, and vancomycin levels interfaced automatically to [email or web address] and data has been analyzed and interpreted. [...] PharmD Clinical Pharmacist Available via Secure Chat [facility] ECG 12-LEADon 07-09-2024 ECG 12-LEAD IMPRESSION: Sinus rhythm Inferior infarct, old Compared to ECG 07/03/24 at 1914 No significant change Electronically Signed On 07-09-2024 00:52:11 EDT by Grzegorz Guillen [facility] HIGH SENSITIVITY TROPONIN, S ERIAL BASELINEon 07-09-2024 TROPONIN HS SERIAL BASELINE 6 ng/L Normal <=14 [facility] Comment on above: Result Comment: In i ndividuals presenting with symptoms > 2h, a baseline troponin <= 5 ng/L suggests acute cardiac injury is unlikely and further serial testing is generally not indicated. Performed By: #### L AB17, [id number] ####Catering Coordinator: YOLETTE CROWE ([id number])[facility] ([facility])[address] [place] [address] HIGH SENSITIVITY TROPONIN, S ERIAL, SECOND TESTon 07-09-2024 2H TROPONIN HS (SERIAL 2ND TROPONIN) 7 ng/L Normal <=14 [facility] Comment on above: Result Comment: 2h t roponin (2nd troponin) samples collected between 1h 40 min and 2h and 20 min of the baseline collection time can be utilized to interpret delta troponins as per [facility] algorithms. Samples collected outside this timeframe need to be interpreted clinically. Rising or falling troponin delta below 2 ng/L as compared to baseline value suggests that acute cardiac injury is unlikely. Performed By: #### L AB90 #### Catering Coordinator: LAURA BAUTISTA ([phone]) [facility] [address] [place] [address] 2H TROPONIN HS (SERIAL 2ND TROPONIN) 6 ng/L Normal <=14 [facility] Comment on above: Result Comment: Risi ng or falling troponin delta below 2 ng/L as compared to baseline value suggests that acute cardiac injury is unlikely. Performed By: #### L AB90 #### Catering Coordinator: LAURA BAUTISTA ([id number]) [facility] ([facility]) [address] [place] [address] CBC WITH AUTO DIFFERENTIALon 07-08-2024 Basophils (Bld) [#/Vol] 0.0 10*3/uL Normal 0.0-0.2 [facility] Comment on above: Performed By: #### L AB90 #### Catering Coordinator: LAURA BAUTISTA ([id number]) [facility] [address] [place] [address] Basophils/100 WBC (Bld) 0.5 % Normal 0.0-2.0 [facility] Comment on above: Performed By: #### L AB90 #### Catering Coordinator: LAURA BAUTISTA ([id number]) [facility]) [address] [place] [address] Eosinophils (Bld) [#/Vol] 0.3 10*3/uL Normal 0.0-0.5 [facility] Comment on above: Performed By: #### L AB90 #### Catering Coordinator: LAURA BAUTISTA ([id number]) [facility]) [address] [place] [address] [place] Eosinophils/100 WBC (Bld) 3.5 % Normal 0.0-6.0 [facility] Comment on above: Performed By: #### L AB90 #### Catering Coordinator: LAURA BAUTISTA ([id number]) [facility]) [address] [place] [address] Erythrocyte distribution width (RBC) [Ratio] 13.1 % Normal 11.5-15.0 [facility] Comment on above: Performed By: #### L AB90 #### Catering Coordinator: LAURA BAUTISTA ([id number]) [facility]) [address] [place] [address] Hematocrit (Bld) [Volume fraction] 37.2 % Normal 35.0-47.0 [facility] Comment on above: Performed By: #### L AB90 #### Catering Coordinator: LAURA BAUTISTA ([id number]) [facility]) [address] [place] [address] Hemoglobin (Bld) [Mass/Vol] 12.2 g/dL Normal 11.7-16.0 [facility] Comment on above: Performed By: #### L AB90 #### Catering Coordinator: LAURA BAUTISTA ([phone]) [facility]) [address] [place] [address] IMMATURE GRANS % 0.6 % Normal 0.0-2.0 [facility] Comment on above: Performed By: #### L AB90 #### Catering Coordinator: LAURA BAUTISTA ([phone]) [facility]) [address] [place] [address] IMMATURE GRANS ABSOLUTE 0.1 10*3/uL High <0.1 [facility] Comment on above: Performed By: #### L AB90 #### Catering Coordinator: LAURA BAUTISTA ([id number]) [facility]) [address] [place] [address] Lymphocytes (Bld) [#/Vol] 2.2 10*3/uL Normal 1.0-4.3 [facility] Comment on above: Performed By: #### L [id number] #### Catering Coordinator: LAURA BAUTISTA ([phone]) [facility]) [address] [place] [address] Lymphocytes/100 WBC (Bld) 28.6 % Normal 15.0-45.0 [facility] Comment on above: Performed By: #### L [id number] #### Catering Coordinator: LAURA BAUTISTA ([phone]) [facility] [facility]) [address] [place] [address] MCH (RBC) [Entitic mass] 29.5 pg Normal 26.0-34.0 [facility] Comment on above: Performed By: #### L [id number] #### Catering Coordinator: LAURA BAUTISTA ([phone]) [facility]) [address] [place] [address] MCHC 32.8 % Normal 30.5-36.0 [facility] Comment on above: Performed By: #### L [id number] #### Catering Coordinator: LAURA BAUTISTA ([phone]) [facility]) [address] [place] [address] MCV (RBC) [Entitic vol] 89.9 fL Normal 77.0-99.0 [facility] Comment on above: Performed By: #### L [id number] #### Catering Coordinator: LAURA BAUTISTA ([phone]) [facility]) [address] [place] [address] Monocytes (Bld) [#/Vol] 1.1 10*3/uL High 0.0-0.9 [facility] Comment on above: Performed By: #### L [id number] #### Catering Coordinator: LAURA BAUTISTA ([phone]) [facility] [address] [place] [address] Monocytes/100 WBC (Bld) 13.6 % High 5.0-13.0 [facility] Comment on above: Performed By: #### L [id number] #### Catering Coordinator: LAURA BAUTISTA ([phone]) [facility] ([facility]) [address] [place] [address] NEUTROPHILS ABSOLUTE 4.2 10*3/uL Normal 1.8-7.5 [facility] Comment on above: Performed By: #### L [id number] #### Catering Coordinator: LAURA BAUTISTA ([id number]) [facility] ([facility]) [address] [place] [address] Neutrophils/100 WBC (Bld) 53.2 % Normal 38.0-82.0 [facility] Comment on above: Performed By: #### L [id number] #### Catering Coordinator: LAURA BAUTISTA ([phone]) [facility] ([facility]) [address] [place] [address] NRBC 0.0 /100 WBCs Normal 0.0-2.0 [facility] Comment on above: Performed By: #### L [id number] #### Catering Coordinator: LAURA BAUTISTA ([phone]) [facility] ([facility]) [address] [place] [address] Platelet mean volume (Bld) [Entitic vol] 9.5 fL Normal 9.0-12.7 [facility] Comment on above: Result Comment: MPV is a calculated measurement using platelet volume ratio Performed By: #### L [id number] #### Catering Coordinator: LAURA BAUTISTA ([phone]) [facility] ([facility]) [address] [place] [address] Platelets (Bld) [#/Vol] 314 10*3/uL Normal 140-440 [facility] Comment on above: Performed By: #### L [id number] #### Catering Coordinator: LAURA BAUTISTA ([phone]) [facility]) [address] [place] [address] RBC (Bld) [#/Vol] 4.14 10*6/uL Normal 3.80-5.20 [facility] Comment on above: Performed By: #### L [id number] #### Catering Coordinator: LAURA BAUTISTA ([id number]) [facility] ([facility]) [address] [place] [address] WBC (Bld) [#/Vol] 7.8 10*3/uL Normal 3.6-10.7 [facility] Comment on above: Performed By: #### L [id number] #### Catering Coordinator: LAURA BAUTISTA ([phone]) [facility] ([facility]) [address] [place] [address] COMPREHENSIVE METABOLIC PANE Aamir 07-08-2024 Albumin [Mass/Vol] 3.5 g/dL Normal 3.4-4.8 [facility] Comment on above: Performed By: #### L [id number] #### Catering Coordinator: LAURA BAUTISTA ([phone]) [facility] ([facility]) [address] [place] [address] ALP [Catalytic activity/Vol] 66 U/L Normal 40-150 [facility] Comment on above: Performed By: #### L [id number] #### Catering Coordinator: LAURA BAUTISTA ([id number]) [facility] ([facility]) [address] [place] [address] ALT [Catalytic activity/Vol] 18 U/L Normal <30 [facility] Comment on above: Performed By: #### L [id number] #### Catering Coordinator: LAURA BAUTISTA ([id number]) [facility] ([facility]) [address] [place] [address] Anion gap [Moles/Vol] 10 mmol/L Normal 3-13 [facility] Comment on above: Performed By: #### L [id number] #### Catering Coordinator: LAURA BAUTISTA ([id number]) [facility] ([facility]) [address] [place] [address] AST [Catalytic activity/Vol] 23 U/L Normal <34 [facility] Comment on above: Performed By: #### L [id number] #### Catering Coordinator: LAURA BAUTISTA ([id number]) [facility]) [address] [place] [address] Bilirubin [Mass/Vol] 0.3 mg/dL Normal <1.2 [facility] Comment on above: Performed By: #### L [id number] #### Catering Coordinator: LAURA BAUTISTA ([id number]) [facility] ([facility]) [address] [place] [address] Calcium [Mass/Vol] 8.8 mg/dL Normal 8.8-10.0 [facility] Comment on above: Performed By: #### L [id number] #### Catering Coordinator: LAURA BAUTISTA ([phone]) [facility] ([facility]) [address] [place] [address] Chloride [Moles/Vol] 110 mmol/L High 98-107 [facility] Comment on above: Performed By: #### L [id number] #### Catering Coordinator: LAURA BAUTISTA ([id number]) [facility] ([facility]) [address] [place] [address] CO2 [Moles/Vol] 21 mmol/L Low 23-31 [facility] Comment on above: Performed By: #### L [id number] #### Catering Coordinator: LAURA BAUTISTA ([id number]) [facility] ([facility]) [address] [place] [address] Creatinine [Mass/Vol] 2.59 mg/dL High 0.57-1.11 [facility] Comment on above: Performed By: #### L [id number] #### Catering Coordinator: LAURA BAUTISTA ([phone]) [facility]) [address] [place] [address] [place] GLOMERULAR FILTRATION RATE ML/MIN/1.73 SQ M.PREDICTED 20.4 mL/min/1.73m*2 Low >60.0 [facility] Comment on above: Result Comment: Calc ulation based on the Chronic Kidney Disease Epidemiology Collaboration (CKD-EPI) equation refit without adjustment for race Performed By: #### L [id number] #### Catering Coordinator: LAURA BAUTISTA ([phone]) [facility] ([facility]) [address] [place] [address] Glucose [Mass/Vol] 242 mg/dL High 82-115 [facility] Comment on above: Performed By: #### L [id number] #### Catering Coordinator: LAURA BAUTISTA ([phone]) [facility] ([facility]) [address] [place] [address] Potassium [Moles/Vol] 4.8 mmol/L Normal 3.5-5.1 [facility] Comment on above: Result Comment: [facility] potassium values may be up to 0.5 mmol/L lower than serum values. Performed By: #### L [id number] #### Catering Coordinator: LAURA BAUTISTA ([phone]) [facility] ([facility]) [address] [place] [address] Protein [Mass/Vol] 7.3 g/dL Normal 6.4-8.3 [facility] Comment on above: Performed By: #### L [id number] #### Catering Coordinator: LAURA BAUTISTA ([id number]) [facility] ([facility]) [address] [place] [address] Sodium [Moles/Vol] 141 mmol/L Normal 136-145 [facility] Comment on above: Performed By: #### L [id number] #### Catering Coordinator: LAURA BAUTISTA ([id number]) [facility]) [address] [place] [address] Urea nitrogen [Mass/Vol] 59 mg/dL High 9-23 [facility] Comment on above: Performed By: #### L [id number] #### Catering Coordinator: LAURA BAUTISTA ([phone]) [facility]) [address] [place] [address] ED Nursing Noteon 07-08-2024 ED Nursing Note Called report to Iesha on [address]. Normal [facility] ED Provider Noteon ED Provider Note Emergency Department Encounter [facility] ED Patient: Cinthya Castillo : 1960 Date of Evaluation: 07/08/2024 ED Provider: Grzegorz Guillen DO Chief Complaint Chief Complaint Patient presents with ? Chest Pain Pt c/o chest pain and shortness of breath for approx 2 hours ? Shortness of Breath ? Wound Check Pt has a wound to the left lower leg she would like evaluated WAMPANOAG Cinthya Dia Castillo is a 63 y.o. female [...] 12/11/2022 Performed by Micheal Silva MD at [address] ENDOSCOPY Social History Socioeconomic History ? [...] lead Collectio (more content not included)... Normal [facility] HIGH SENSITIVITY TROPONIN, S ERIAL BASELINEon 07-08-2024 TROPONIN HS SERIAL BASELINE 5 ng/L Normal <=14 [facility] Comment on above: Result Comment: In i ndividuals presenting with symptoms > 2h, a baseline troponin <= 5 ng/L suggests acute cardiac injury is unlikely and further serial testing is generally not indicated. Performed By: #### L [id number] #### Catering Coordinator: LAURA BAUTISTA ([id number]) [facility] ([facility]) [address] [place] [address] HIGH SENSITIVITY TROPONIN, S ERIAL, SECOND TESTon 07-08-2024 2H TROPONIN HS (SERIAL 2ND TROPONIN) 6 ng/L Normal <=14 [facility] Comment on above: Result Comment: Risi ng or falling troponin delta below 2 ng/L as compared to baseline value suggests that acute cardiac injury is unlikely. Performed By: #### L [id number] ####Catering Coordinator: LAURA BAUTISTA ([id number])[facility] ([facility])[address] [place] [address] NT PRO BNPon 07-08-2024 Natriuretic peptide B (Bld) [Mass/Vol] 116 pg/mL Normal <125 [facility] Comment on above: Performed By: #### L [id number] #### Catering Coordinator: LAURA BAUTISTA ([phone]) [facility] ([facility]) [address] [place] [address] Anion gap in Serum or Plasma Ordered By: Lex Roca on 07-04-2024 Anion gap [Moles/Vol] 12 mmol/L 08-03 [facility] BUN/creatinine ratioOrdered By: Lex Roca on 07-04-2024 Urea nitrogen/Creatinine [Mass ratio] 23.6 mg/mg High 10-20 [facility] Bilirubin, totalOrdered By: Lex Roca on 07-04-2024 Bilirubin [Mass/Vol] 0.32 mg/dL 0.00-1.30 [facility] Carbon dioxide, total [Moles /volume] in Central venous bloodOrdered By: Lex Roca on 07-04-2024 CO2 [Moles/Vol] 20.5 mmol/L Low 21.0-32.0 [facility] Chloride assayOrdered By: Sony Roca on 07-04-2024 Chloride [Moles/Vol] 108 mmol/L 98-108 [facility] ECG 12-LEADon 07-04-2024 ECG 12-LEAD IMPRESSION: Sinus rhythm Inferior infarct, old Electronically Signed On 07-04-2024 01:40:59 EDT by Mari Chen [facility] Erythrocyte distribution wid th ratioOrdered By: Lex Roca on 07-04-2024 Erythrocyte distribution width (RBC) [Ratio] 13.2 % 11.6-14.6 [facility] Erythrocyte distribution wid th standard deviationOrdered By: Lex Roca on 07-04-2024 Erythrocyte distribution width (RBC) [Ratio] 43.6 fl 35.1-43.9 [facility] Glomerular filtration rate ( GFR) estimation/1.73 sq m using serum, plasma, or whole bOrdered By: Lex Roca on 07-04-2024 GFR/1.73 sq M.predicted among non-blacks MDRD (S/P/Bld) [Vol rate/Area] 24 mL/min/{1.73_m2} Low >60 [facility] Comment on above: mL/min/1.73m2 CKD-EP I Creatinine Equation (2020) Hematocrit Auto (Bld) [Volum e fraction]Ordered By: Lex Roca on 07-04-2024 Hematocrit (Bld) [Volume fraction] 36.5 % Low 37-47 [facility] Hemoglobin measurementOrdere d By: Lex Roca on 07-04-2024 Hemoglobin (Bld) [Mass/Vol] 11.9 g/dL Low 12.0-15.0 [facility] Laboratory - Chemistry and C hemistry - challengeOrdered By: Lex Roca on 07-04-2024 AST [Catalytic activity/Vol] 23 U/L <32 [facility] MCV (mean corpuscular volume ) determinationOrdered By: Lex Roca on 07-04-2024 MCV (RBC) [Entitic vol] 91.0 fL 81-99 [facility] Mean corpuscular hemoglobin (MCH) determinationOrdered By: Lex Roca on 07-04-2024 MCH (RBC) [Entitic mass] 29.7 pg 27.0-32.0 [facility] Mean corpuscular hemoglobin concentration (MCHC) determinationOrdered By: Lex Roca on 07-04-2024 MCHC (RBC) [Mass/Vol] 32.6 g/dL 32-36 [facility] Mean platelet volume determi nationOrdered By: Lex Roca on 07-04-2024 Platelet mean volume (Bld) [Entitic vol] 9.8 fL 6.2-12.0 [facility] Natriuretic peptide.B prohor ace N-Terminal [Mass/volume] in Serum or PlasmaOrdered By: Lex Roca on 07-04-2024 Natriuretic peptide.B prohormone N-Terminal [Mass/Vol] 357 pg/mL <900 [facility] Comment on above: Heart Failure Unlike ly: < 300 pg/mLHeart Failure Likely< 50 Years: > 450 pg/mL50-75 Years: > 900 pg/mL>75 Years: > 1800 pg/mL Platelet countOrdered By: Sony Roca on 07-04-2024 Platelets (Bld) [#/Vol] 297 10*3/uL 150-450 [facility] Potassium measurement (mass/ volume)Ordered By: Lex Roca on 07-04-2024 Potassium (Unsp spec) [Mass/Vol] 4.3 mmol/L 3.3-5.1 [facility] RBC Auto (Bld) [#/Vol]Ordere d By: Lex Roca on 07-04-2024 RBC (Bld) [#/Vol] 4.01 10*6/uL Low 4.2-5.4 [facility] Serum creatinine measurement (mass/volume)Ordered By: Lex Roca on 07-04-2024 Creatinine [Mass/Vol] 2.22 mg/dL High 0.70-1.20 [facility] Serum globulin measurementOr dered By: Lex Roca on 07-04-2024 Globulin (S) [Mass/Vol] 3.4 g/dL 2.2-4.2 [facility] Serum glucose measurement (m ass/volume)Ordered By: Lex Roca on 07-04-2024 Glucose [Mass/Vol] 88 mg/dL 70-99 [facility] Serum or plasma alanine daily otransferase (ALT) measurementOrdered By: Lex Roca on 07-04-2024 ALT [Catalytic activity/Vol] 10 U/L <35 [facility] Serum or plasma albumin aba urement (mass/volume)Ordered By: Lex Roca on 07-04-2024 Albumin [Mass/Vol] 3.6 g/dL 3.4-4.8 [facility] Serum or plasma albumin/glob ulin mass ratioOrdered By: Lex Roca on 07-04-2024 Albumin/Globulin [Mass ratio] 1.1 {ratio} 0.9-2.4 [facility] Serum or plasma alkaline tamir sphatase measurementOrdered By: Lex Roca on 07-04-2024 ALP [Catalytic activity/Vol] 66 U/L 35-104 [facility] Serum or plasma calcium aba urement (mass/volume)Ordered By: Lex Roca on 07-04-2024 Calcium [Mass/Vol] 9.0 mg/dL 7.6-11.0 [facility] Serum or plasma urea nitroge n measurement (mass/volume)Ordered By: Lex Roca on 07-04-2024 Urea nitrogen [Mass/Vol] 52 mg/dL High 4-19 [facility] Sodium levelOrdered By: Iban Roca on 07-04-2024 Sodium [Moles/Vol] 141 mmol/L 133-145 [facility] Total proteinOrdered By: Tony Roca on 07-04-2024 Protein [Mass/Vol] 7.0 g/dL 5.9-8.4 [facility] Troponin T.cardiac [Mass/vol ume] in Serum or Plasma by High sensitivity methodOrdered By: Lex Roca on 07-04-2024 Troponin T.cardiac High sensitivity method [Mass/Vol] 33 ng/L High <14 [facility] White blood cell (WBC) count Ordered By: Lex Roca on 07-04-2024 WBC (Bld) [#/Vol] 7.5 10*3/uL 4.4-11.0 [facility] BASIC METABOLIC PANELon 06-20 Anion gap [Moles/Vol] 10 mmol/L Normal 3-13 [facility] Comment on above: Performed By: #### L [id number] #### Catering Coordinator: LAURA BAUTISTA ([phone]) [facility] ([facility]) [address] [place] [address] Calcium [Mass/Vol] 8.7 mg/dL Low 8.8-10.0 [facility] Comment on above: Performed By: #### L [id number] #### Catering Coordinator: LAURA BAUTISTA ([phone]) [facility] [address] [place] [address] [place] Chloride [Moles/Vol] 112 mmol/L High 98-107 [facility] Comment on above: Performed By: #### L [id number] #### Catering Coordinator: LAURA BAUTISTA ([phone]) [facility] ([facility]) [address] [place] [address] [place] CO2 [Moles/Vol] 19 mmol/L Low 23-31 [facility] Comment on above: Performed By: #### L [id number] #### Catering Coordinator: LAURA BAUTISTA ([phone]) [facility] [address] [place] [address] [place] Creatinine [Mass/Vol] 2.14 mg/dL High 0.57-1.11 [facility] Comment on above: Performed By: #### L [id number] #### Catering Coordinator: LAURA BAUTISTA ([id number]) [facility]) [address] [place] [address] [place] GLOMERULAR FILTRATION RATE ML/MIN/1.73 SQ M.PREDICTED 25.6 mL/min/1.73m*2 Low >60.0 [facility] Comment on above: Result Comment: Calc ulation based on the Chronic Kidney Disease Epidemiology Collaboration (CKD-EPI) equation refit without adjustment for race Performed By: #### L [id number] #### Catering Coordinator: LAURA BAUTISTA ([id number]) [facility] [address] [place] [address] Glucose [Mass/Vol] 121 mg/dL High 82-115 [facility] Comment on above: Performed By: #### L [id number] #### Catering Coordinator: LAURA BAUTISTA ([phone]) [facility] ([facility]) [address] [place] [address] Potassium [Moles/Vol] 5.1 mmol/L Normal 3.5-5.1 [facility] Comment on above: Result Comment: [facility] potassium values may be up to 0.5 mmol/L lower than serum values. Performed By: #### L [id number] #### Catering Coordinator: LAURA BAUTISTA ([phone]) [facility] ([facility]) [address] [place] [address] Sodium [Moles/Vol] 141 mmol/L Normal 136-145 [facility] Comment on above: Performed By: #### L [id number] #### Catering Coordinator: LAURA BAUTISTA ([phone]) [facility] [address] [place] [address] Urea nitrogen [Mass/Vol] 58 mg/dL High 9-23 [facility] Comment on above: Performed By: #### L [id number] #### Catering Coordinator: LAURA BAUTISTA ([phone]) [facility] ([facility]) [address] [place] [address] CBC WITH AUTO DIFFERENTIALon 07-03-2024 Basophils (Bld) [#/Vol] 0.1 10*3/uL Normal 0.0-0.2 [facility] Comment on above: Performed By: #### L [id number] ####Catering Coordinator: LAURA BAUTISTA ([phone])[facility] ([facility])[address] [place] [address] [place] Basophils/100 WBC (Bld) 0.6 % Normal 0.0-2.0 [facility] Comment on above: Performed By: #### L [id number] ####Catering Coordinator: LAURA BAUTISTA ([phone])[facility] ([facility])[address] [place] [address] Eosinophils (Bld) [#/Vol] 0.3 10*3/uL Normal 0.0-0.5 [facility] Comment on above: Performed By: #### L [id number] ####Catering Coordinator: LAURA BAUTISTA ([phone])[facility] ([facility])[address] [place] [address] Eosinophils/100 WBC (Bld) 3.0 % Normal 0.0-6.0 [facility] Comment on above: Performed By: #### L [id number] ####Catering Coordinator: LAURA BAUTISTA ([phone])[facility] ([facility])[address] [place] [address] Erythrocyte distribution width (RBC) [Ratio] 13.1 % Normal 11.5-15.0 [facility] Comment on above: Performed By: #### L [id number] ####Catering Coordinator: LAURA BAUTISTA ([phone])[facility] ([facility])[address] [place] [address] Hematocrit (Bld) [Volume fraction] 36.5 % Normal 35.0-47.0 [facility] Comment on above: Performed By: #### L [id number] ####Catering Coordinator: LAURA BAUTISTA ([phone])[facility] ([facility])[address] [place] [address] Hemoglobin (Bld) [Mass/Vol] 11.6 g/dL Low 11.7-16.0 [facility] Comment on above: Performed By: #### L [id number] ####Catering Coordinator: LAURA [phone])[facility] ([facility])[address] [place] [address] IMMATURE GRANS % 0.2 % Normal 0.0-2.0 [facility] Comment on above: Performed By: #### L [id number] ####Catering Coordinator: LAURA BAUTISTA ([phone])[facility] ([facility])[address] [place] [address] IMMATURE GRANS ABSOLUTE 0.0 10*3/uL Normal <0.1 [facility] Comment on above: Performed By: #### L [id number] ####Catering Coordinator: LAURA BAUTISTA ([phone])[facility] ([facility])[address] [place] [address] Lymphocytes (Bld) [#/Vol] 2.1 10*3/uL Normal 1.0-4.3 [facility] Comment on above: Performed By: #### L [id number] ####Catering Coordinator: LAURA BAUTISTA ([phone])[facility] ([facility])[address] [place] [address] Lymphocytes/100 WBC (Bld) 22.7 % Normal 15.0-45.0 [facility] Comment on above: Performed By: #### L [id number] ####Catering Coordinator: LAURA BAUTISTA ([id number])[facility] ([facility])[address] [place] [address] MCH (RBC) [Entitic mass] 28.7 pg Normal 26.0-34.0 [facility] Comment on above: Performed By: #### L [id number] ####Catering Coordinator: LAURA BAUTISTA ([phone])[facility]Ramón [facility]INTANILLASAM [facility] ([facility])[address] [place] [address] MCHC 31.8 % Normal 30.5-36.0 [facility] Comment on above: Performed By: #### L [id number] ####Catering Coordinator: LAURA BAUTISTA ([id number])[facility] ([facility])[address] [place] [address] [place] MCV (RBC) [Entitic vol] 90.3 fL Normal 77.0-99.0 [facility] Comment on above: Performed By: #### L [id number] ####Catering Coordinator: LAURA BAUTISTA ([id number])[facility] ([facility])[address] [place] [address] [place] Monocytes (Bld) [#/Vol] 0.8 10*3/uL Normal 0.0-0.9 [facility] Comment on above: Performed By: #### L [id number] ####Catering Coordinator: LAURA BAUTISTA ([phone])[facility] ([facility])[address] [place] [address] [place] Monocytes/100 WBC (Bld) 9.0 % Normal 5.0-13.0 [facility] Comment on above: Performed By: #### L [id number] ####Catering Coordinator: LAURA BAUTISTA ([phone])[facility] ([facility])[address] [place] [address] [place] NEUTROPHILS ABSOLUTE 6.1 10*3/uL Normal 1.8-7.5 [facility] Comment on above: Performed By: #### L [id number] ####Catering Coordinator: LAURA BAUTISTA ([phone])[facility] ([facility])[address] [place] [address] [place] Neutrophils/100 WBC (Bld) 64.5 % Normal 38.0-82.0 [facility] Comment on above: Performed By: #### L [id number] ####Catering Coordinator: LAURA BAUTISTA ([phone])[facility] ([facility])[address] [place] [address] [place] NRBC 0.0 /100 WBCs Normal 0.0-2.0 [facility] Comment on above: Performed By: #### L [id number] ####Catering Coordinator: LAURA BAUTISTA ([phone])[facility] SOUTHRamón VARGAS RITTMAN (SWRLAB)[address] Platelet mean volume (Bld) [Entitic vol] 9.5 fL Normal 9.0-12.7 [facility] Comment on above: Result Comment: MPV is a calculated measurement using platelet volume ratio Performed By: #### L [id number] ####Catering Coordinator: LAURA BAUTISTA ([phone])[facility] SOUTHRamón VARGAS RITTMAN (SWRLAB)[address] [address] Platelets (Bld) [#/Vol] 320 10*3/uL Normal 140-440 [facility] Comment on above: Performed By: #### L [id number] ####Catering Coordinator: LAURA BAUTISTA ([id number])[facility] S[facility]THRamón VARGAS RITTMAN (SWRLAB)[address] [place] [address] RBC (Bld) [#/Vol] 4.04 10*6/uL Normal 3.80-5.20 [facility] Comment on above: Performed By: #### L [id number] ####Catering Coordinator: LAURA BAUTISTA ([phone])[facility] S[facility]THRamón VARGAS RITTMAN (SWRL[facility])[address] [place] [address] WBC (Bld) [#/Vol] 9.4 10*3/uL Normal 3.6-10.7 [facility] Comment on above: Performed By: #### L [id number] ####Catering Coordinator: LAURA BAUTISTA ([phone])[facility] S[facility]THRamón VARGAS RITTMAN (SWRLAB)[address] CHEST ABDOMEN PELVIS KYA OGRAM W [...] at a high flow rate following a risk management professional study. Multiplanar and 3D MIP reconstruction was [...] pain as of today. Reports SOB, Normal [facility] ED Nursing Noteon 07-03-2024 ED Nursing Note Pt to ED with complaints of chest pain that worsens with deep breaths starting this morning. Also complaining of bilateral leg pain and lower back pain as of today. Reports SOB, pt talking in complete sentences in triage Normal [facility] ED Provider Noteon ED Provider Note [...] 12/11/2022 Performed by Micheal Silva MD at [facility] CURRENT MEDICATIONS Previous Medications [...] observed. P (more content not included)... Normal [facility] HIGH SENSITIVITY TROPONIN, S ERIAL BASELINEon 07-03-2024 TROPONIN HS SERIAL BASELINE 4 ng/L Normal <=14 [facility] Comment on above: Result Comment: In i ndividuals presenting with symptoms > 2h, a baseline troponin <= 5 ng/L suggests acute cardiac injury is unlikely and further serial testing is generally not indicated. Performed By: #### L [id number] #### Catering Coordinator: LAURA BAUTISTA ([phone]) [facility] ([facility]) [address] [place] [address] HIGH SENSITIVITY TROPONIN, S ERIAL, SECOND TESTon 07-03-2024 2H TROPONIN HS (SERIAL 2ND TROPONIN) 6 ng/L Normal <=14 [facility] Comment on above: Result Comment: Risi ng or falling troponin delta below 2 ng/L as compared to baseline value suggests that acute cardiac injury is unlikely. Performed By: #### L [id number] #### Catering Coordinator: LAURA BAUTISTA ([id number]) [facility] ([facility]) [address] [place] [address] HIGH SENSITIVITY TROPONIN, S ERIAL, THIRD TESTon 07-03-2024 4H TROPONIN HS (SERIAL 3RD TROPONIN) 5 ng/L Normal <=14 [facility] Comment on above: Result Comment: Risi ng or falling troponin delta below 2 ng/L as compared to 2h troponin value suggests that acute cardiac injury is unlikely. Performed By: #### L [id number] ####Catering Coordinator: LAURA BAUTISTA ([id number])[facility] ([id number] Trough vancomycin levelOrder ed By: Lex Roca on 06-23-2024 Vancomycin trough [Mass/Vol] 9.5 ug/mL 5.0-15.0 [facility] Comment on above: Recommended goal tro ugh [...] therapy recommended for serious lifethreatening infections include:- Nfjpzeohpu-Gmajcgpjjahg-Pbrqgsosm (Ventilator/Healtcare Associated)-Sepsis PLEASE CONTACT PHARMACY SERVICES (#[id number]) FOR INTERPRETATIONOF RESULTS. Hemoglobin A1c percentageOrd ered By: Lex Roca on 05-03-2024 HbA1c (Bld) [Mass fraction] 7.6 % High 3.8-5.6 [facility] Comment on above: Normal < 5.7 % Predi abetic 5.7 - 6.4 % Diabetic >or= 6.5 % Please note range changes. Blood urea nitrogen (BUN)/cr eatinine ratioOrdered By: Lex Roca on 04-26-2024 Urea nitrogen/Creatinine [Mass ratio] 30.4 mg/mg High 10-20 [facility] Carbon dioxide measurementOr dered By: Lex Roca on 04-26-2024 CO2 [Moles/Vol] 23.0 mmol/L 21.0-32.0 [facility] Chloride measurementOrdered By: Lex Roca on 04-26-2024 Chloride [Moles/Vol] 111 mmol/L High 98-107 [facility] Erythrocyte distribution wid th ratioOrdered By: Lex Roca on 04-26-2024 Erythrocyte distribution width (RBC) [Ratio] 12.7 % 11.6-14.6 [facility] Erythrocyte distribution wid th standard deviationOrdered By: Lex Roca on 04-26-2024 Erythrocyte distribution width (RBC) [Ratio] 43.2 fl 35.1-43.9 [facility] Glomerular filtration rate ( GFR) estimationOrdered By: Lex Roca on 04-26-2024 GFR/1.73 sq M.predicted among non-blacks MDRD (S/P/Bld) [Vol rate/Area] 25 mL/min/{1.73_m2} Low >60 [facility] Comment on above: Non- GFR Calc Glucose measurementOrdered B y: Lex Roca on 04-26-2024 Glucose [Mass/Vol] 167 mg/dL High 74-106 [facility] Comment on above: Fasting Glucose resu lt greater than or equal to 126 mg/dL suggests DIABETES MELLITUS per A.D.A. criteria. Hematocrit Auto (Bld) [Volum e fraction]Ordered By: Lex Roca on 04-26-2024 Hematocrit (Bld) [Volume fraction] 37.6 % 37-47 [facility] Hemoglobin measurementOrdere d By: Lex Roca on 04-26-2024 Hemoglobin (Bld) [Mass/Vol] 11.9 g/dL Low 12.0-15.0 [facility] MCV (mean corpuscular volume ) determinationOrdered By: Lex Roca on 04-26-2024 MCV (RBC) [Entitic vol] 93.8 fL 81-99 [facility] Mean corpuscular hemoglobin (MCH) determinationOrdered By: Lex Roca on 04-26-2024 MCH (RBC) [Entitic mass] 29.7 pg 27.0-32.0 [facility] Mean corpuscular hemoglobin concentration (MCHC) determinationOrdered By: Lex Roca on 04-26-2024 MCHC (RBC) [Mass/Vol] 31.6 g/dL Low 32-36 [facility] Mean platelet volume determi nationOrdered By: Lex Roca on 04-26-2024 Platelet mean volume (Bld) [Entitic vol] 10.1 fL 6.2-12.0 [facility] Platelet countOrdered By: Sony Roca on 04-26-2024 Platelets (Bld) [#/Vol] 337 10*3/uL 150-450 [facility] Potassium measurementOrdered By: Lex Roca on 04-26-2024 Potassium [Moles/Vol] 4.6 mmol/L 3.5-5.1 [facility] RBC Auto (Bld) [#/Vol]Ordere d By: Lex Roca on 04-26-2024 RBC (Bld) [#/Vol] 4.01 10*6/uL Low 4.2-5.4 [facility] Serum anion gap measurementO rdered By: Lex Roca on 04-26-2024 Anion gap [Moles/Vol] 6 mmol/L 5-15 [facility] Serum or plasma calcium aba urement (mass/volume)Ordered By: Lex Roca on 04-26-2024 Calcium [Mass/Vol] 8.7 mg/dL 8.5-10.1 [facility] Serum or plasma creatinine m easurement (mass/volume)Ordered By: Lex Roca on 04-26-2024 Creatinine [Mass/Vol] 2.14 mg/dL High 0.55-1.02 [facility] Comment on above: The validity of the calculated GFR & GFRAA in patients over 70 years has not been determined. Clinical correlation is essential. Serum or plasma urea nitroge n measurement (mass/volume)Ordered By: Lex Roca on 04-26-2024 Urea nitrogen [Mass/Vol] 65 mg/dL High 7-18 [facility] Sodium levelOrdered By: Iban Roca on 04-26-2024 Sodium [Moles/Vol] 140 mmol/L 136-145 [facility] White blood cell (WBC) count Ordered By: Lex Roca on 04-26-2024 WBC (Bld) [#/Vol] 7.5 10*3/uL 4.4-11.0 [facility] Blood urea nitrogen (BUN)/cr eatinine ratioOrdered By: Lex Roca on 04-24-2024 Urea nitrogen/Creatinine [Mass ratio] 27.1 mg/mg High 10-20 [facility] Carbon dioxide measurementOr dered By: Lex Roca on 04-24-2024 CO2 [Moles/Vol] 21.0 mmol/L 21.0-32.0 [facility] Chloride measurementOrdered By: Lex Roca on 04-24-2024 Chloride [Moles/Vol] 109 mmol/L High 98-107 [facility] Glomerular filtration rate ( GFR) estimationOrdered By: Lex Roca on 04-24-2024 GFR/1.73 sq M.predicted among non-blacks MDRD (S/P/Bld) [Vol rate/Area] 22 mL/min/{1.73_m2} Low >60 [facility] Comment on above: Non- GFR Calc Glucose measurementOrdered B y: Lex Roca on 04-24-2024 Glucose [Mass/Vol] 304 mg/dL High 74-106 [facility] Comment on above: Glucose result great er than or equal to 200 mg/dLsuggests DIABETES MELLITUS per A.D.A. criteria. Potassium measurementOrdered By: Lex Roca on 04-24-2024 Potassium [Moles/Vol] 5.1 mmol/L 3.5-5.1 [facility] Serum anion gap measurementO rdered By: Lex Roca on 04-24-2024 Anion gap [Moles/Vol] 7 mmol/L 5-15 [facility] Serum or plasma calcium aba urement (mass/volume)Ordered By: Lex Roca on 04-24-2024 Calcium [Mass/Vol] 8.4 mg/dL Low 8.5-10.1 [facility] Serum or plasma creatinine m easurement (mass/volume)Ordered By: Lex Roca on 04-24-2024 Creatinine [Mass/Vol] 2.40 mg/dL High 0.55-1.02 [facility] Comment on above: The validity of the calculated GFR & GFRAA in patients over 70 years has not been determined. Clinical correlation is essential. Serum or plasma urea nitroge n measurement (mass/volume)Ordered By: Lex Roca on 04-24-2024 Urea nitrogen [Mass/Vol] 65 mg/dL High 7-18 [facility] Sodium levelOrdered By: Iban Roca on 04-24-2024 Sodium [Moles/Vol] 137 mmol/L 136-145 [facility] Blood urea nitrogen (BUN)/cr eatinine ratioOrdered By: Lex Roca on 04-19-2024 Urea nitrogen/Creatinine [Mass ratio] 24.9 mg/mg High 10-20 [facility] Carbon dioxide measurementOr dered By: Lex Roca on 04-19-2024 CO2 [Moles/Vol] 22.0 mmol/L 21.0-32.0 [facility] Chloride measurementOrdered By: Lex Roca on 04-19-2024 Chloride [Moles/Vol] 110 mmol/L High 98-107 [facility] Erythrocyte distribution wid th ratioOrdered By: Lex Roca on 04-19-2024 Erythrocyte distribution width (RBC) [Ratio] 12.5 % 11.6-14.6 [facility] Erythrocyte distribution wid th standard deviationOrdered By: Lex Roca on 04-19-2024 Erythrocyte distribution width (RBC) [Ratio] 42.7 fl 35.1-43.9 [facility] Glomerular filtration rate ( GFR) estimationOrdered By: Lex Roca on 04-19-2024 GFR/1.73 sq M.predicted among non-blacks MDRD (S/P/Bld) [Vol rate/Area] 24 mL/min/{1.73_m2} Low >60 [facility] Comment on above: Non- GFR Calc Glucose measurementOrdered B y: Lex Roca on 04-19-2024 Glucose [Mass/Vol] 201 mg/dL High 74-106 [facility] Comment on above: Glucose result great er than or equal to 200 mg/dLsuggests DIABETES MELLITUS per A.D.A. criteria. Hematocrit Auto (Bld) [Volum e fraction]Ordered By: Lex Roca on 04-19-2024 Hematocrit (Bld) [Volume fraction] 37.1 % 37-47 [facility] Hemoglobin A1c percentageOrd ered By: Lex Roca on 04-19-2024 HbA1c (Bld) [Mass fraction] 7.2 % High 3.8-5.6 [facility] Comment on above: Normal < 5.7 % Predi abetic 5.7 - 6.4 % Diabetic >or= 6.5 % Please note range changes. Hemoglobin measurementOrdere d By: Lex Roca on 04-19-2024 Hemoglobin (Bld) [Mass/Vol] 11.4 g/dL Low 12.0-15.0 [facility] High density lipoprotein (HD L) measurementOrdered By: Lex Roca on 04-19-2024 Cholesterol in HDL [Mass/Vol] 42 mg/dL >40 [facility] Comment on above: The drugs N-Acetylcy steine and Metamizole may falsely depress this assay. Reference Range HDL <40 mg/dL Low HDL Cholesterol HDL >or= 60 mg/dL High HDL Cholesterol Low density lipoprotein (LDL ) cholesterol measurementOrdered By: Lex Roca on 04-19-2024 Cholesterol in LDL [Mass/Vol] 53 mg/dL 0-130 [facility] MCV (mean corpuscular volume ) determinationOrdered By: Lex Roca on 01-29-2025 MCV (RBC) [Entitic vol] 92.5 fL 81-99 [facility] Mean corpuscular hemoglobin (MCH) determinationOrdered By: Lex Roca on 04-19-2024 MCH (RBC) [Entitic mass] 28.4 pg 27.0-32.0 [facility] Mean corpuscular hemoglobin concentration (MCHC) determinationOrdered By: Lex Roca on 04-19-2024 MCHC (RBC) [Mass/Vol] 30.7 g/dL Low 32-36 [facility] Mean platelet volume determi nationOrdered By: Lex Roca on 04-19-2024 Platelet mean volume (Bld) [Entitic vol] 9.9 fL 6.2-12.0 [facility] Platelet countOrdered By: Sony Roca on 04-19-2024 Platelets (Bld) [#/Vol] 318 10*3/uL 150-450 [facility] Potassium measurementOrdered By: Lex Roca on 04-19-2024 Potassium [Moles/Vol] 5.0 mmol/L 3.5-5.1 [facility] RBC Auto (Bld) [#/Vol]Ordere d By: Lex Roca on 04-19-2024 RBC (Bld) [#/Vol] 4.01 10*6/uL Low 4.2-5.4 [facility] Serum anion gap measurementO rdered By: Lex Roca on 04-19-2024 Anion gap [Moles/Vol] 9 mmol/L 5-15 [facility] Serum or plasma calcium aba urement (mass/volume)Ordered By: Lex Roca on 04-19-2024 Calcium [Mass/Vol] 9.1 mg/dL 8.5-10.1 [facility] Serum or plasma cholesterol measurement (mass/volume)Ordered By: Lex Roca on 04-19-2024 Cholesterol [Mass/Vol] 120 mg/dL <200 [facility] Comment on above: <200 mg/dL Desirable 200-240 mg/dL Borderline >240 mg/dL High Risk Serum or plasma creatinine m easurement (mass/volume)Ordered By: Lex Roca on 04-19-2024 Creatinine [Mass/Vol] 2.17 mg/dL High 0.55-1.02 [facility] Comment on above: The validity of the calculated GFR & GFRAA in patients over 70 years has not been determined. Clinical correlation is essential. Serum or plasma thyroid stim ulating hormone (TSH) measurement (units/volume)Ordered By: Lex Roca on 04-19-2024 TSH Qn 2.570 uIU/mL 0.358-3.740 [facility] Serum or plasma urea nitroge n measurement (mass/volume)Ordered By: Lex Roca on 04-19-2024 Urea nitrogen [Mass/Vol] 54 mg/dL High 7-18 [facility] Sodium levelOrdered By: Iban Roca on 04-19-2024 Sodium [Moles/Vol] 141 mmol/L 136-145 [facility] Triglycerides measurementOrd ered By: Lex Roca on 04-19-2024 Triglyceride [Mass/Vol] 124 mg/dL <199 [facility] Comment on above: The drugs N-Acetylcy steine and Metamizole may falsely depress this assay.Serum Triglycerides Reference Interval Normal <150 mg/dL Borderline high 150 - 199 mg/dL High 200 - 499 mg/dL Very High > or = 500 mg/dL Very low density lipoprotein (VLDL) cholesterol measurementOrdered By: Lex Roca on 04-19-2024 Very low density lipoprotein (VLDL) cholesterol measurement 25 mg/dL 5-40 [facility] White blood cell (WBC) count Ordered By: Lex Roca on 04-19-2024 WBC (Bld) [#/Vol] 8.0 10*3/uL 4.4-11.0 [facility] Blood urea nitrogen (BUN)/cr eatinine ratioOrdered By: Lex Roca on 04-10-2024 Urea nitrogen/Creatinine [Mass ratio] 25.2 mg/mg High 10-20 [facility] Carbon dioxide measurementOr dered By: Lex Roca on 04-10-2024 CO2 [Moles/Vol] 22.0 mmol/L 21.0-32.0 [facility] Chloride measurementOrdered By: Lex Roca on 04-10-2024 Chloride [Moles/Vol] 111 mmol/L High 98-107 [facility] Glomerular filtration rate ( GFR) estimationOrdered By: Lex Roca on 04-10-2024 GFR/1.73 sq M.predicted among non-blacks MDRD (S/P/Bld) [Vol rate/Area] 25 mL/min/{1.73_m2} Low >60 [facility] Comment on above: Non- GFR Calc Glucose measurementOrdered B y: Lex Roca on 04-10-2024 Glucose [Mass/Vol] 110 mg/dL High 74-106 [facility] Comment on above: Fasting Glucose resu lt from 100 to 125 mg/dL suggests IMPAIRED HOMEOSTASIS per A.D.A. criteria. Potassium measurementOrdered By: Lex Roca on 04-10-2024 Potassium [Moles/Vol] 4.5 mmol/L 3.5-5.1 [facility] Serum anion gap measurementO rdered By: Lex Roca on 04-10-2024 Anion gap [Moles/Vol] 6 mmol/L 5-15 [facility] Serum or plasma calcium aba urement (mass/volume)Ordered By: Lex Roca on 04-10-2024 Calcium [Mass/Vol] 8.7 mg/dL 8.5-10.1 [facility] Serum or plasma creatinine m easurement (mass/volume)Ordered By: Lex Roca on 04-10-2024 Creatinine [Mass/Vol] 2.14 mg/dL High 0.55-1.02 [facility] Comment on above: The validity of the calculated GFR & GFRAA in patients over 70 years has not been determined. Clinical correlation is essential. Serum or plasma urea nitroge n measurement (mass/volume)Ordered By: Lex Roca on 04-10-2024 Urea nitrogen [Mass/Vol] 54 mg/dL High 7-18 [facility] Sodium levelOrdered By: Iban Roca on 04-10-2024 Sodium [Moles/Vol] 139 mmol/L 136-145 [facility] DBT Breast - bilateral scree ningon 09-08-2023 No mammographic evidence of malignancy. ASSESSMENT: [...] Electronically Signed Date/Time: 09/08/2023 3:04 PM EDT [facility] Patient Name: CINTHYA CASTILLO : 1960 Exam Date/Time: 09/08/2023 14:09 Procedure: BI MAMMOGRAM SCREENING TOMOSYNTHESIS BILATERAL Ordering Provider: ROCA THOMAS Reason For Exam: z12.31 Image views: 2D Bilateral CC and MLO views were acquired. 3D Bilateral CC and MLO views were acquired. Images were reviewed with CAD. Markings on images: BB's = Nipples; skin lesions Open [place] = Palpable Line = Scar COMPARISON: 05/20/2021, 05/21/2022 TISSUE DENSITY: BIRADS B - There are scattered fibroglandular densities. FINDINGS: No suspicious masses, architectural distortions or suspiciously clustered microcalcifications are identified. There is no evidence of skin thickening or nipple retraction. There are no significant changes when compared with prior studies. [facility] Alanis Redd MD - 09/08/2023 Patient Name: CINTHYA CASTILLO : 1960 Exam Date/Time: 09/08/2023 14:09 Procedure: BI MAMMOGRAM SCREENING TOMOSYNTHESIS BILATERAL Ordering Provider: ROCA THOMAS Reason For Exam: [id number] Image views: 2D Bilateral CC and MLO views were acquired. 3D Bilateral CC and MLO views were acquired. Images were reviewed with CAD. Markings on images: BB's = Nipples; skin lesions Open [place] = Palpable Line = Scar COMPARISON: 05/20/2021, [...] Electronically Signed Date/Time: 09/08/2023 3:04 PM EDT [facility] Radiology Study observation (narrative) [facility] DBT Breast - bilateral scree ningOrdered By: Alanis Redd on 09-08-2023 [facility] [employer] Work Phone: Basic metabolic 1998 panelon 09-07-2023 Anion gap [Moles/Vol] 13 mmol/L 3 - 13 mmol/L [facility] Calcium [Mass/Vol] 9.2 mg/dL 8.4 - 10. 4 mg/dL [facility] Chloride [Moles/Vol] 106 mmol/L 98 - 10 7 mmol/L [facility] CO2 [Moles/Vol] 21 mmol/L Low 22 - 30 mmol/L [facility] Creatinine [Mass/Vol] 2.00 mg/dL High 0.52 - 1.04 mg/dL [facility] GFR/1.73 sq M.predicted MDRD (S/P/Bld) [Vol rate/Area] 28.0 mL/min/{1.73_m2} Low - [facility] Comment on above: Calculation based on the Chronic Kidney Disease Epidemiology Collaboration (CKD-EPI) equation refit without adjustment for race Glucose [Mass/Vol] 122 mg/dL High 70 - 100 mg/dL [facility] Interpretation and review of laboratory results Abnormal [facility] Potassium [Moles/Vol] 4.1 mmol/L 3.5 - 5.1 mmol/L [facility] Sodium [Moles/Vol] 140 mmol/L 135 - 145 mmol/L [facility] Urea nitrogen [Mass/Vol] 42 mg/dL High 7 - 17 mg/dL [facility] CBC W Auto Differential pane l (Bld)on 09-07-2023 Basophils (Bld) [#/Vol] 0.1 10*3/uL 0.0 - 0.2 10*3/uL [facility] Basophils/100 WBC (Bld) 0.5 % 0.0 - 2.0 % [facility] Eosinophils (Bld) [#/Vol] 0.1 10*3/uL 0.0 - 0.5 10*3/uL [facility] Eosinophils/100 WBC (Bld) 1.0 % 0.0 - 6.0 % [facility] Erythrocyte distribution width (RBC) [Ratio] 12.7 % 11.5 - 15.0 % [facility] Hematocrit (Bld) [Volume fraction] 38.4 % 35.0 - 47.0 % [facility] Hemoglobin (Bld) [Mass/Vol] 12.7 g/dL 11.7 - 16.0 g/dL [facility] Immature granulocytes (Bld) [#/Vol] 0.1 10*3/uL High NINF - 0.1 10*3/uL [facility] Immature granulocytes/100 WBC (Bld) 0.5 % 0.0 - 2.0 % [facility] Interpretation and review of laboratory results Abnormal [facility] Lymphocytes (Bld) [#/Vol] 2.2 10*3/uL 1.0 - 4.3 10*3/uL [facility] Lymphocytes/100 WBC (Bld) 23.3 % 15.0 - 45.0 % [facility] MCH (RBC) [Entitic mass] 29.7 pg 26.0 - 34.0 pg [facility] MCHC (RBC) [Mass/Vol] 33.1 % 30.5 - 36.0 % [facility] [employer] MCV (RBC) [Entitic vol] 89.7 fL 77.0 - 99.0 fL [facility] [employer] Monocytes (Bld) [#/Vol] 1.1 10*3/uL High 0.0 - 0.9 10*3/uL [facility] Monocytes/100 WBC (Bld) 11.4 % 5.0 - 13.0 % [facility] Neutrophils (Bld) [#/Vol] 5.9 10*3/uL 1.8 - 7.5 10*3/uL [facility] Neutrophils/100 WBC (Bld) 63.3 % 38.0 - 82.0 % [facility] [employer] Nucleated RBC/100 WBC (Bld) [Ratio] 0.0 % [facility] [employer] Platelet mean volume (Bld) [Entitic vol] 9.5 fL 9.0 - 12.7 fL [facility] [employer] Platelets (Bld) [#/Vol] 344 10*3/uL 140 - 440 10*3/uL [facility] [employer] RBC (Bld) [#/Vol] 4.28 10*6/uL 3.80 - 5.2 0 10*6/uL [facility] WBC (Bld) [#/Vol] 9.3 10*3/uL 3.6 - 10.7 10*3/uL [facility] Laboratory - Chemistry and C hemistry - challengeon 09-07-2023 Troponin I.cardiac [Mass/Vol] 0.015 ng/mL [facility] 0.[facility] ng/mL [facility] Troponin I.cardiac [Mass/Vol] 0.013 ng/mL [facility] - 0.034 ng/mL [facility] Natriuretic peptide B [Mass/ Vol]on 09-07-2023 Interpretation and review of laboratory results Abnormal [facility] Natriuretic peptide B (Bld) [Mass/Vol] 1110 pg/mL High <20 - 300 [facility] No Panel Informationon 09-06 [facility] Sinus rhythm 79 BPM NO STEMI, qtc nml SImilar to prior Electronically Signed On 09-07-2023 18:46:28 EDT by Luis Torres, - 09/07/2023 IMPRESSION: Sinus rhythm 79 BPM NO STEMI, qtc nml SImilar to prior Electronically Signed On 09-07-2023 18:46:28 EDT by Luis Zabala [employer] No Panel InformationOrdered By: Luis Zabala on 09-07-2023 P [place] 57 degrees [employer] Work Phone: [place] Interval 147 ms [employer] Work Phone: QRS [place] -5 degrees [employer] Work Phone: QRSD Interval 79 ms [employer] Work Phone: QT Interval 398 ms [employer] Work Phone: QTC Interval 458 ms [employer] Work Phone: T Wave [place] 63 degrees [employer] Work Phone: [employer] Work Phone: Troponin I.cardiac [Mass/Vol ]on 09-07-2023 Interpretation and review of laboratory results Normal [employer] Patients with high levels of Biotin oral intake (ie >5 mg/day) may have falsely decreased Troponin levels. tuul Interpretation and review of laboratory results Normal [employer] Patients with high levels of Biotin oral intake (ie >5 mg/day) may have falsely decreased Troponin levels. [employer] Vital signsOrdered By: Luis Zabala on 09-07-2023 Heart rate 79 /min bpm [employer] Work Phone: XR Chest Single viewon 09-06 1. No acute findings. Report Dictated on Electronically Signed By: Pancho Wyatt MD Electronically Signed Date/Time: 09/07/2023 6:19 PM T [facility] Name[facility]INTH[facility] 1960 [id number] Exam Date/Time: 09/07/2023 18:21 Procedure: XR CHEST 1 VIEW Ordering Provider: CARNEY ADAM Reason For Exam: DYSPNEA CHEST PORTABLE CLINICAL INDICATION: DYSPNEA TECHNIQUE: Portable chest x-ray(s). COMPARISON: December,. FINDINGS: Patient's body habitus limits evaluation somewhat. Cardiac and mediastinal silhouette within normal limits. Lungs are grossly clear. No significant vascular congestion. No apparent pneumothorax. Degenerative change again noted in the thoracic spine. [facility] Pancho Wyatt MD - 09/07/2023 Patient Name: CINTH[facility]STILLO [facility] 1960 [id number] Exam Date/Time: 09/07/2023 18:21 Procedure: XR CHEST [...] Electronically Signed Date/Time: 09/07/2023 6:19 PM EDT [facility] Radiology Study observation (narrative) [facility] XR Chest Single viewOrdered By: Pancho Wyatt on 09-07-2023 [facility] Work Phone: Basophil percentageOrdered B y: Lex Roca on 02-13-2023 Chloride [Moles/Vol] 112 mmol/L 98-107 [facility] Glucose [Mass/Vol] 138 mg/dL 74-106 [facility] Comment on above: Fasting Glucose resu lt greater than or equal to 126 mg/dL suggests DIABETES MELLITUS per A.D.A. criteria. Potassium [Moles/Vol] 4.7 mmol/L 3.5-5.1 [facility] Sodium [Moles/Vol] 142 mmol/L 136-145 [facility] WBC (Bld) [#/Vol] 11.3 10*3/uL 4.4-11.0 [facility] Bilirubin Test strip Ql (U)O rdered By: Lex Roca on 02-13-2023 Bilirubin Ql (U) Negative Negative [facility] Blood erythrocytes count (nu mber/volume)Ordered By: Lex Roca on 02-13-2023 RBC (Bld) [#/Vol] 4.02 10*6/uL 4.2-5.4 [facility] Blood hemoglobin measurement (mass/volume)Ordered By: Lex Roca on 02-13-2023 Hemoglobin (Bld) [Mass/Vol] 11.9 g/dL 12.0-15.0 [facility] Blood platelet mean volumeOr dered By: Lex Roca on 02-13-2023 Platelet mean volume (Bld) [Entitic vol] 9.8 fL 6.2-12.0 [facility] Culture, urineOrdered By: Sony Roca on 02-13-2023 Bacteria identified Cx Nom (U) Proteus mirabilis [facility] Determination of erythrocyte mean corpuscular volume (MCV)Ordered By: Lex Roca on 02-13-2023 MCV (RBC) [Entitic vol] 93.5 fL 81-99 [facility] Hematocrit Auto (Bld) [Volum e fraction]Ordered By: Lex Roca on 02-13-2023 Hematocrit (Bld) [Volume fraction] 37.6 % 37-47 [facility] Ketones Test strip Ql (U)Ord ered By: Lex Roca on 02-13-2023 Ketones Ql (U) 5 mg/dl Negative [facility] Laboratory - Chemistry and C hemistry - challengeOrdered By: Lex Roca on 02-13-2023 CO2 [Moles/Vol] 24.0 mmol/L 21.0-32.0 [facility] Urea nitrogen/Creatinine [Mass ratio] 28.3 mg/mg 10-20 [facility] Laboratory - Hematology and Cell countsOrdered By: Lex Roca on 02-13-2023 Erythrocyte distribution width (RBC) [Entitic vol] 43.7 fL 35.1-43.9 [facility] Erythrocyte distribution width (RBC) [Ratio] 12.8 % 11.6-14.6 [facility] MCH (RBC) [Entitic mass] 29.6 pg 27.0-32.0 [facility] MCHC Auto (RBC) [Mass/Vol]Or dered By: Lex Roca on 02-13-2023 MCHC (RBC) [Mass/Vol] 31.6 g/dL 32-36 [facility] Nitrite Test strip Ql (U)Ord ered By: Lex Roca on 02-13-2023 Nitrite Ql (U) Negative Negative [facility] No Panel InformationOrdered By: Lex Roca on 02-13-2023 Estimated GFR (MDRD) Amer 40 mL/min >60 [facility] Comment on above: GFR Calc Estimated GFR (MDRD) Non-Af Amer 33 mL/min >60 [facility] Comment on above: Non- GFR Calc Platelets bldOrdered By: Tony Roca on 02-13-2023 Platelets (Bld) [#/Vol] 322 10*3/uL 150-450 [facility] Protein Test strip Ql (U)Ord ered By: Lex Roca on 02-13-2023 Protein Ql (U) 500 mg/dl Negative [facility] Serum or plasma calcium aba urement (mass/volume)Ordered By: Lex Roca on 02-13-2023 Calcium [Mass/Vol] 8.4 mg/dL 8.5-10.1 [facility] Serum or plasma creatinine m easurement (mass/volume)Ordered By: Lex Roca on 02-13-2023 Creatinine [Mass/Vol] 1.66 mg/dL 0.55-1.02 [facility] Comment on above: The validity of the calculated GFR & GFRAA in patients over 70 years has not been determined. Clinical correlation is essential. Serum or plasma urea nitroge n measurement (mass/volume)Ordered By: Lex Roca on 02-13-2023 Urea nitrogen [Mass/Vol] 47 mg/dL 7-18 [facility] Thin prep Papanicolaou smear with manual screeningOrdered By: Lex Roca on 02-13-2023 Thin prep Papanicolaou smear with manual screening 6 5-15 [facility] Urine blood detectionOrdered By: Lex Roca on 02-13-2023 RBC Ql (U) 250 /ul Negative [facility] Urine clarityOrdered By: Tony Roca on 02-13-2023 Clarity (U) Cloudy Clear [facility] Urine color determinationOrd ered By: Lex Roca on 02-13-2023 Color (U) Red Yellow [facility] Urine glucose detectionOrder ed By: Lex Roca on 02-13-2023 Glucose Ql (U) 1000 mg/dl Normal [facility] Urine leukocyte esterase det ection by dipstickOrdered By: Lex Roca on 02-13-2023 Leukocyte esterase Test strip Ql (U) 100 /ul Negative [facility] Urine pHOrdered By: Lex cooper on 02-13-2023 pH (U) 8.0 [pH] 5.0 - 8.0 [facility] Urine specific gravity measu rementOrdered By: Lex Roca on 02-13-2023 Specific gravity (U) [Rel density] 1.010 1.002-1.030 [facility] Urobilinogen Auto test strip Ql (U)Ordered By: Lex Roca on 02-13-2023 Urobilinogen Ql (U) Normal mg/dl Normal [facility] Whole blood hemoglobin A1c/t otal hemoglobin ratio (mass fraction)Ordered By: Lex Roca on 02-05-2023 HbA1c (Bld) [Mass fraction] 6.6 % 3.8-5.6 [facility] Comment on above: Normal < 5.7 % Predi abetic 5.7 - 6.4 % Diabetic >or= 6.5 % Please note range changes. Laboratory - Chemistry and C hemistry - challengeon 12-11-2022 Glucose [Mass/Vol] 155 mg/dL High 70 - 100 mg/dL [facility] No Panel Informationon 12-11 Interpretation and review of laboratory results Abnormal [facility] Performed by: [facility], [address] [place] [address] CLIA ID: [id number] [facility] Basophil percentageOrdered B y: Lex Roca on 11-25-2022 WBC (Bld) [#/Vol] 10.9 10*3/uL 4.4-11.0 [facility] Blood erythrocytes count (nu mber/volume)Ordered By: Lex Roca on 11-25-2022 RBC (Bld) [#/Vol] 3.84 10*6/uL 4.2-5.4 [facility] Blood hemoglobin measurement (mass/volume)Ordered By: Lex Roca on 11-25-2022 Hemoglobin (Bld) [Mass/Vol] 11.5 g/dL 12.0-15.0 [facility] Blood platelet mean volumeOr dered By: Lex Roca on 11-25-2022 Platelet mean volume (Bld) [Entitic vol] 10.2 fL 6.2-12.0 [facility] Determination of erythrocyte mean corpuscular volume (MCV)Ordered By: Lex Roca on 11-25-2022 MCV (RBC) [Entitic vol] 97.4 fL 81-99 [facility] Hematocrit Auto (Bld) [Volum e fraction]Ordered By: Lex Roca on 11-25-2022 Hematocrit (Bld) [Volume fraction] 37.4 % 37-47 [facility] Laboratory - Hematology and Cell countsOrdered By: Lex Roca on 11-25-2022 Erythrocyte distribution width (RBC) [Entitic vol] 44.9 fL 35.1-43.9 [facility] Erythrocyte distribution width (RBC) [Ratio] 12.6 % 11.6-14.6 [facility] MCH (RBC) [Entitic mass] 29.9 pg 27.0-32.0 [facility] MCHC Auto (RBC) [Mass/Vol]Or dered By: Lex Roca on 11-25-2022 MCHC (RBC) [Mass/Vol] 30.7 g/dL 32-36 [facility] Platelets bldOrdered By: Tony Roca on 11-25-2022 Platelets (Bld) [#/Vol] 379 10*3/uL 150-450 [facility] Whole blood hemoglobin A1c/t otal hemoglobin ratio (mass fraction)Ordered By: Lex Roca on 11-05-2022 HbA1c (Bld) [Mass fraction] 5.6 % 3.8-5.6 [facility] Comment on above: Normal < 5.7 % Predi abetic 5.7 - 6.4 % Diabetic >or= 6.5 % Please note range changes. Basophil percentageOrdered B y: Lex Roca on 10-09-2022 Chloride [Moles/Vol] 103 mmol/L 98-[address] [facility] Glucose [Mass/Vol] 61 mg/dL 74-106 [facility] Potassium [Moles/Vol] 4.0 mmol/L 3.5-5.1 [facility] Sodium [Moles/Vol] 133 mmol/L 136-145 [facility] Laboratory - Chemistry and C hemistry - challengeOrdered By: Lex Roca on 10-09-2022 CO2 [Moles/Vol] 23.0 mmol/L 21.0-32.0 [facility] Urea nitrogen/Creatinine [Mass ratio] 21.2 mg/mg 10-20 [facility] No Panel InformationOrdered By: Lex Roca on 10-09-2022 Estimated GFR (MDRD) Amer 35 mL/min >60 [facility] Comment on above: GFR Calc Estimated GFR (MDRD) Non-Af Amer 29 mL/min >60 [facility] Comment on above: Non- GFR Calc Serum or plasma calcium aba urement (mass/volume)Ordered By: Lex Roca on 10-09-2022 Calcium [Mass/Vol] 8.1 mg/dL 8.5-10.1 [facility] Serum or plasma creatinine m easurement (mass/volume)Ordered By: Lex Roca on 10-09-2022 Creatinine [Mass/Vol] 1.89 mg/dL 0.55-1.02 [facility] Comment on above: The validity of the calculated GFR & GFRAA in patients over 70 years has not been determined. Clinical correlation is essential. Serum or plasma urea nitroge n measurement (mass/volume)Ordered By: Lex Roca on 10-09-2022 Urea nitrogen [Mass/Vol] 40 mg/dL 7- [facility] Thin prep Papanicolaou smear with manual screeningOrdered By: Lex Roca on 10-09-2022 Thin prep Papanicolaou smear with manual screening 7 5- [facility] Bacteria identified Cx Nom ( Wound)Ordered By: Lex Roca on 08-31-2022 Wound Culture Staphylococcus aureus [facility] Wound Culture Streptococcus group G [facility] Bacteria identified Cx Nom ( Wound)Ordered By: Lex Roca on 08-28-2022 Wound Culture Staphylococcus aureus [facility] Wound Culture Streptococcus group G [facility] Gram stain for investigation of transfusion reactionOrdered By: Lex Roca on 08-28-2022 Microscopic observation Gram stain Nom (Unsp spec) [facility] Basophil percentageOrdered B y: Lex Roca on 07-16-2022 Cholesterol [Mass/Vol] 167 mg/dL <200 [facility] Comment on above: <200 mg/dL Desirable 200-240 mg/dL Borderline >240 mg/dL High Risk Triglyceride [Mass/Vol] 159 mg/dL <199 [facility] Comment on above: The drugs N-Acetylcy steine and Metamizole may falsely depress this assay.Serum Triglycerides Reference Interval Normal <150 mg/dL Borderline high 150 - 199 mg/dL High 200 - 499 mg/dL Very High > or = 500 mg/dL WBC (Bld) [#/Vol] 8.8 10*3/uL 4.4-11.0 [facility] Blood erythrocytes count (nu mber/volume)Ordered By: Lex Roca on 07-16-2022 RBC (Bld) [#/Vol] 4.07 10*6/uL 4.2-5.4 [facility] Blood hemoglobin measurement (mass/volume)Ordered By: Lex Roca on 07-16-2022 Hemoglobin (Bld) [Mass/Vol] 12.4 g/dL 12.0-15.0 [facility] Blood platelet mean volumeOr dered By: Lex Roca on 07-16-2022 Platelet mean volume (Bld) [Entitic vol] 10.0 fL 6.2-12.0 [facility] Determination of erythrocyte mean corpuscular volume (MCV)Ordered By: Lex Roca on 07-16-2022 MCV (RBC) [Entitic vol] 94.1 fL 81-99 [facility] Erythrocyte sedimentation ra teOrdered By: Lex Roca on 07-16-2022 ESR (Bld) [Velocity] 43 mm/h 0-30 [facility] Hematocrit Auto (Bld) [Volum e fraction]Ordered By: Lex Roca on 07-16-2022 Hematocrit (Bld) [Volume fraction] 38.3 % 37-47 [facility] Laboratory - Hematology and Cell countsOrdered By: Lex Roca on 07-16-2022 Erythrocyte distribution width (RBC) [Entitic vol] 43.6 fL 35.1-43.9 [facility] Erythrocyte distribution width (RBC) [Ratio] 12.6 % 11.6-14.6 [facility] MCH (RBC) [Entitic mass] 30.5 pg 27.0-32.0 [facility] MCHC Auto (RBC) [Mass/Vol]Or dered By: Lex Roca on 07-16-2022 MCHC (RBC) [Mass/Vol] 32.4 g/dL 32-36 [facility] Platelets bldOrdered By: Tony Roca on 07-16-2022 Platelets (Bld) [#/Vol] 268 10*3/uL 150-450 [facility] Serum or plasma C reactive p rotein measurement (mass/volume)Ordered By: Lex Roca on 07-16-2022 CRP [Mass/Vol] 4.50 mg/L 0.0-3.0 [facility] Comment on above: C-Reactive Protein ( CRP) provides useful information for thediagnosis, therapy and monitoring of inflammatory processesand associated diseases. For the evaluation of Relative Riskfor Cardiovascular Disease, a High Sensitivity CRP (HSCRP)should be ordered. Serum or plasma cholesterol in HDL measurement (mass/volume)Ordered By: Lex Roca on 07-16-2022 Cholesterol in HDL [Mass/Vol] 37 mg/dL >40 [facility] Comment on above: The drugs N-Acetylcy steine and Metamizole may falsely depress this assay. Reference Range HDL <40 mg/dL Low HDL Cholesterol HDL >or= 60 mg/dL High HDL Cholesterol Serum or plasma cholesterol in VLDL measurement (mass/volume)Ordered By: Lex Roca on 07-16-2022 Cholesterol in VLDL [Mass/Vol] 32 mg/dL 5-40 [facility] Serum or plasma low density lipoprotein (LDL) cholesterol measurement (mass/volume)Ordered By: Lex Roca on 07-16-2022 Cholesterol in LDL [Mass/Vol] 98 mg/dL 0-130 [facility] Basophil percentageOrdered B y: Lex Roca on 06-04-2022 Bilirubin [Mass/Vol] 0.40 mg/dL 0.20-1.00 [facility] Comment on above: For patients on eltr ombopag therapy, use of Dimension Clive TBIL is not recommended. Chloride [Moles/Vol] 110 mmol/L 98-107 [facility] Cholesterol [Mass/Vol] 135 mg/dL <200 [facility] Comment on above: <200 mg/dL Desirable 200-240 mg/dL Borderline >240 mg/dL High Risk Glucose [Mass/Vol] 107 mg/dL 74-106 [facility] Comment on above: Fasting Glucose resu lt from 100 to 125 mg/dL suggests IMPAIRED HOMEOSTASIS per A.D.A. criteria. Potassium [Moles/Vol] 4.4 mmol/L 3.5-5.1 [facility] Protein [Mass/Vol] 6.4 g/dL 6.4-8.2 [facility] Sodium [Moles/Vol] 142 mmol/L 136-145 [facility] Triglyceride [Mass/Vol] 186 mg/dL <199 [facility] Comment on above: The drugs N-Acetylcy steine and Metamizole may falsely depress this assay.Serum Triglycerides Reference Interval Normal <150 mg/dL Borderline high 150 - 199 mg/dL High 200 - 499 mg/dL Very High > or = 500 mg/dL WBC (Bld) [#/Vol] 12.1 10*3/uL 4.4-11.0 [facility] Blood erythrocytes count (nu mber/volume)Ordered By: Lex Roca on 06-04-2022 RBC (Bld) [#/Vol] 4.12 10*6/uL 4.2-5.4 [facility] Blood hemoglobin measurement (mass/volume)Ordered By: Lex Roca on 06-04-2022 Hemoglobin (Bld) [Mass/Vol] 12.6 g/dL 12.0-15.0 [facility] Blood platelet mean volumeOr dered By: Lex Roca on 06-04-2022 Platelet mean volume (Bld) [Entitic vol] 10.0 fL 6.2-12.0 [facility] Determination of erythrocyte mean corpuscular volume (MCV)Ordered By: Lex Roca on 06-04-2022 MCV (RBC) [Entitic vol] 93.4 fL 81-99 [facility] Direct bilirubinOrdered By: Lex Roca on 06-04-2022 Bilirubin.direct [Mass/Vol] 0.12 mg/dL 0.00-0.30 [facility] Hematocrit Auto (Bld) [Volum e fraction]Ordered By: Lex Roca on 06-04-2022 Hematocrit (Bld) [Volume fraction] 38.5 % 37-47 [facility] Laboratory - Chemistry and C hemistry - challengeOrdered By: Lex Roca on 06-04-2022 ALP [Catalytic activity/Vol] 70 U/L 45-117 [facility] ALT [Catalytic activity/Vol] 28 U/L 13-56 [facility] CO2 [Moles/Vol] 24.0 mmol/L 21.0-32.0 [facility] Globulin (S) [Mass/Vol] 4.0 g/dL 2.2-4.2 [facility] Urea nitrogen/Creatinine [Mass ratio] 25.8 mg/mg 10-20 [facility] Laboratory - Hematology and Cell countsOrdered By: Lex Roca on 06-04-2022 Erythrocyte distribution width (RBC) [Entitic vol] 42.2 fL 35.1-43.9 [facility] Erythrocyte distribution width (RBC) [Ratio] 12.3 % 11.6-14.6 [facility] MCH (RBC) [Entitic mass] 30.6 pg 27.0-32.0 [facility] MCHC Auto (RBC) [Mass/Vol]Or dered By: Lex Roca on 06-04-2022 MCHC (RBC) [Mass/Vol] 32.7 g/dL 32-36 [facility] No Panel InformationOrdered By: Lex Roca on 06-04-2022 Estimated GFR (MDRD) Amer 36 mL/min >60 [facility] Comment on above: GFR Calc Estimated GFR (MDRD) Non-Af Amer 30 mL/min >60 [facility] Comment on above: Non- GFR Calc Platelets bldOrdered By: Tony Roca on 06-04-2022 Platelets (Bld) [#/Vol] 409 10*3/uL 150-450 [facility] Serum or plasma albumin aba urement (mass/volume)Ordered By: Lex Roca on 06-04-2022 Albumin [Mass/Vol] 2.4 g/dL 3.2-5.0 [facility] Serum or plasma calcium aba urement (mass/volume)Ordered By: Lex Roca on 06-04-2022 Calcium [Mass/Vol] 8.5 mg/dL 8.5-10.1 [facility] Serum or plasma cholesterol in HDL measurement (mass/volume)Ordered By: Lex Roca on 06-04-2022 Cholesterol in HDL [Mass/Vol] 35 mg/dL >40 [facility] Comment on above: The drugs N-Acetylcy steine and Metamizole may falsely depress this assay. Reference Range HDL <40 mg/dL Low HDL Cholesterol HDL >or= 60 mg/dL High HDL Cholesterol Serum or plasma cholesterol in VLDL measurement (mass/volume)Ordered By: Lex Roca on 06-04-2022 Cholesterol in VLDL [Mass/Vol] 37 mg/dL 5-40 [facility] Serum or plasma creatinine m easurement (mass/volume)Ordered By: Lex Roca on 06-04-2022 Creatinine [Mass/Vol] 1.82 mg/dL 0.55-1.02 [facility] Comment on above: The validity of the calculated GFR & GFRAA in patients over 70 years has not been determined. Clinical correlation is essential. Serum or plasma low density lipoprotein (LDL) cholesterol measurement (mass/volume)Ordered By: Lex Roca on 06-04-2022 Cholesterol in LDL [Mass/Vol] 63 mg/dL 0-130 [facility] Serum or plasma urea nitroge n measurement (mass/volume)Ordered By: Lex Roca on 06-04-2022 Urea nitrogen [Mass/Vol] 47 mg/dL 7-18 [facility] Thin prep Papanicolaou smear with manual screeningOrdered By: Lex Roca on 06-04-2022 Thin prep Papanicolaou smear with manual screening 18 U/L 15-37 [facility] Thin prep Papanicolaou smear with manual screening 8 5-15 [facility] Whole blood hemoglobin A1c/t otal hemoglobin ratio (mass fraction)Ordered By: Lex Roca on 06-04-2022 HbA1c (Bld) [Mass fraction] 6.4 % 3.8-5.6 [facility] Comment on above: Normal < 5.7 % Predi abetic 5.7 - 6.4 % Diabetic >or= 6.5 % Please note range changes. DBT Breast - bilateral patricia em 05-21-2022 No mammographic evidence of malignancy. ASSESSMENT: Category 1 Negative RECOMMENDATION: Routine screening mammogram in 1 year. Bilateral Report Dictated on Electronically Signed By: Alanis Redd Electronically Signed Date/Time: 05/21/2022 10:54 AM EST [facility] Patient Name: CINTHYA CASTILLO : [...] images: BB's = Nipples; skin lesions Open [place] = Palpable Line = Scar COMPARISON: 12/16/2016, 05/20/2021 TISSUE DENSITY: BIRADS B - There are scattered fibroglandular densities. FINDINGS: No suspicious masses, architectural distortions or suspiciously clustered microcalcifications are identified. There is no evidence of skin thickening or nipple retraction. There are no significant changes when compared with prior studies. [facility] Alanis Redd MD - 05/21/2022 Patient Name: [...] images: BB's = Nipples; skin lesions Open [place] = Palpable Line = Scar COMPARISON: 12/16/2016, [...] Electronically Signed Date/Time: 05/21/2022 10:54 AM EST [facility] Radiology Study observation (narrative) [facility] DBT Breast - bilateral scree ningOrdered By: Alanis Redd on 05-21-2022 [facility] [employer] Work Phone: No Panel InformationOrdered By: Lex Roca on 03-09-2022 Thyroid Stimulating Hormone (TSH) 2.31 uIU/mL 0.358-3.74 [facility] Basophil percentageon 2021 Bilirubin [Mass/Vol] 0.30 mg/dL 0.20-1.00 [facility] Work Phone: Comment on above: For patients on eltr ombopag therapy, use of Dimension Clive TBIL is not recommended. Chloride [Moles/Vol] 110 mmol/L 98-107 [facility] Work Phone: Cholesterol [Mass/Vol] 161 mg/dL <200 [facility] Work Phone: Comment on above: <200 mg/dL Desirable 200-240 mg/dL Borderline >240 mg/dL High Risk Glucose [Mass/Vol] 85 mg/dL 74-106 [facility] Work Phone: Potassium [Moles/Vol] 4.0 mmol/L 3.5-5.1 [facility] Work Phone: Protein [Mass/Vol] 6.7 g/dL 6.4-8.2 [facility] Work Phone: Sodium [Moles/Vol] 144 mmol/L 136-145 [facility] Work Phone: Triglyceride [Mass/Vol] 214 mg/dL <199 [facility] Work Phone: [phone] Comment on above: The drugs N-Acetylcy steine and Metamizole may falsely depress this assay.Serum Triglycerides Reference Interval Normal <150 mg/dL Borderline high 150 - 199 mg/dL High 200 - 499 mg/dL Very High > or = 500 mg/dL Direct bilirubinon Bilirubin.direct [Mass/Vol] 0.09 mg/dL 0.00-0.30 [facility] Work Phone: [phone] Laboratory - Chemistry and C hemistry - challengeon 12-04-2021 ALP [Catalytic activity/Vol] 56 U/L 45-117 [facility] Work Phone: [phone] ALT [Catalytic activity/Vol] 21 U/L 13-56 [facility] Work Phone: [phone] CO2 [Moles/Vol] 27.0 mmol/L 21.0-32.0 [facility] Work Phone: [phone] Globulin (S) [Mass/Vol] 3.8 g/dL 2.2-4.2 [facility] Work Phone: [phone] Urea nitrogen/Creatinine [Mass ratio] 24.0 mg/mg 10-20 [facility] Work Phone: No Panel Informationon 12-04 Estimated GFR (MDRD) Amer 44 mL/min >60 [facility] Work Phone: [phone] Comment on above: GFR Calc Estimated GFR (MDRD) Non-Af Amer 37 mL/min >60 [facility] Work Phone: [phone] Comment on above: Non- GFR Calc Thyroid Stimulating Hormone (TSH) 4.16 uIU/mL 0.358-3.74 [facility] Work Phone: [phone] Serum or plasma albumin aba urement (mass/volume)on 12-04-2021 Albumin [Mass/Vol] 2.9 g/dL 3.2-5.0 [facility] Work Phone: [phone] Serum or plasma calcium aba urement (mass/volume)on 12-04-2021 Calcium [Mass/Vol] 8.7 mg/dL 8.5-10.1 [facility] Work Phone: Serum or plasma cholesterol in HDL measurement (mass/volume)on 12-04-2021 Cholesterol in HDL [Mass/Vol] 34 mg/dL >40 [facility] [facility] Work Phone: Comment on above: The drugs N-Acetylcy steine and Metamizole may falsely depress this assay. Reference Range HDL <40 mg/dL Low HDL Cholesterol HDL >or= 60 mg/dL High HDL Cholesterol Serum or plasma cholesterol in VLDL measurement (mass/volume)on 12-04-2021 Cholesterol in VLDL [Mass/Vol] 43 mg/dL 5-40 [facility] Work Phone: [phone] Serum or plasma creatinine m easurement (mass/volume)on 12-04-2021 Creatinine [Mass/Vol] 1.54 mg/dL 0.55-1.02 [facility] Work Phone: Comment on above: The validity of the calculated GFR & GFRAA in patients over 70 years has not been determined. Clinical correlation is essential. Serum or plasma low density lipoprotein (LDL) cholesterol measurement (mass/volume)on 12-04-2021 Cholesterol in LDL [Mass/Vol] 84 mg/dL 0-130 [facility] Work Phone: Serum or plasma urea nitroge n measurement (mass/volume)on 12-04-2021 Urea nitrogen [Mass/Vol] 37 mg/dL 7-18 [facility] Work Phone: [phone] Thin prep Papanicolaou smear with manual screeningon 12-04-2021 Thin prep Papanicolaou smear with manual screening 14 U/L 15-37 [facility] Work Phone: [phone] Thin prep Papanicolaou smear with manual screening 7 5-15 [facility] Work Phone: [phone] Whole blood hemoglobin A1c/t otal hemoglobin ratio (mass fraction)on 12-04-2021 HbA1c (Bld) [Mass fraction] 6.7 % 3.8-5.6 [facility] Work Phone: Comment on above: Normal < 5.7 % Predi abetic 5.7 - 6.4 % Diabetic >or= 6.5 % Please note range changes. No Panel Informationon 08-11 Thyroid Stimulating Hormone (TSH) 4.27 uIU/mL 0.358-3.74 [facility] Work Phone: MG Breast Tomosynthesis Scr Blon 05-20-2021 MG Breast Tomosynthesis Scr Bl Patient Name: CINTHYA CASTILLO Mammography ACCESSION EXAM DATE/TIME PROCEDURE ORDERING PROVIDER [id number] 05/20/2021 10:55 EST MG Breast Tomosynthesis Mary Jane ROCA THOMAS S BI Scr CPT code 94831 [id number] Reason For Exam (MG Breast Tomosynthesis BI [...] MG breast tomosynthesis bl scr performed at [facility]. December 16, 2015, bilateral screening mammogram performed at [facility]. December 14, 2014, bilateral screening mammogram performed at [facility]. TISSUE DENSITY: BIRADS B - There are [...] images: BB's = Nipples; skin lesions Open [place] = Palpable Line = Scar Mammography Report [...] Signed by: MD CASTRO KERISTEN L Normal [facility] Sohail Serafin Digital Screen Monica kera 05-20-2021 Patient Name: CINTHYA CASTILLO Mammography ACCESSION EXAM DATE/TIME PROCEDURE ORDERING PROVIDER [id number] 05/20/2021 10:55 EST MG Breast Tomosynthesis Mary Jane ROCA, LEX Stone BI Scr CPT code 74230 [id number] Reason For Exam (MG Breast Tomosynthesis BI [...] MG breast tomosynthesis bl scr performed at [facility]. December 16, 2015, bilateral screening mammogram performed at [facility]. December 14, 2014, bilateral screening mammogram performed at [facility]. TISSUE DENSITY: BIRADS B - There are [...] images: BB's = Nipples; skin lesions Open [place]sem[place] tribe = Palpable Line = Scar Mammography Report [...] pm Signed by: MD GLORIA, SHEBA Starkey [facility] Sheba Castro MD - 05/20/2021 Patient Name: CINTHYA CASTILLO Mammography ACCESSION EXAM DATE/TIME PROCEDURE ORDERING PROVIDER [id number] 05/20/2021 10:55 EST MG Breast Tomosynthesis Mary Jane ROCA, LEX Stone BI Scr CPT code 78571 [id number] Reason For Exam (MG Breast Tomosynthesis BI [...] MG breast tomosynthesis bl scr performed at [facility]. December 16, 2015, bilateral screening mammogram performed at [facility]. December 14, 2014, bilateral screening mammogram performed at [facility]. TISSUE DENSITY: BIRADS B - There are [...] images: BB's = Nipples; skin lesions Open [place] tribe = Palpable Line = Scar Mammography Report [...] pm Signed by: MD GLORIA, SHEBA Starkey [facility] Work Phone: Radiology Study observation (narrative) [facility] Work Phone: [facility] Serafin Digital Screen Bila teralOrdered By: Sheba Castro on 05-20-2021 [facility] Work Phone: Basophil percentageon 2021 Bilirubin [Mass/Vol] 0.30 mg/dL 0.20-1.00 [facility] Work Phone: Comment on above: For patients on eltr ombopag therapy, use of Dimension Clive TBIL is not recommended. Chloride [Moles/Vol] 110 mmol/L 98-107 [facility] Work Phone: Cholesterol [Mass/Vol] 160 mg/dL <200 [facility] Work Phone: Comment on above: <200 mg/dL Desirable 200-240 mg/dL Borderline >240 mg/dL High Risk Glucose [Mass/Vol] 119 mg/dL 74-106 [facility] Work Phone: Comment on above: Fasting Glucose resu lt from 100 to 125 mg/dL suggests IMPAIRED HOMEOSTASIS per A.D.A. criteria. Potassium [Moles/Vol] 4.5 mmol/L 3.5-5.1 [facility] Work Phone: Comment on above: Slight Hemolysis, Re sult may be falsely increased. Protein [Mass/Vol] 6.3 g/dL 6.4-8.2 [facility] Work Phone: Sodium [Moles/Vol] 141 mmol/L 136-145 [facility] Work Phone: [phone] Triglyceride [Mass/Vol] 179 mg/dL [facility] Work Phone: Comment on above: The drugs N-Acetylcy steine and Metamizole may falsely depress this assay.Serum Triglycerides Reference Interval Normal <150 mg/dL Borderline high 150 - 199 mg/dL High 200 - 499 mg/dL Very High > or = 500 mg/dL WBC (Bld) [#/Vol] 8.4 10*3/uL 4.4-11.0 [facility] Work Phone: [phone] Blood erythrocytes count (nu mber/volume)on 05-05-2021 RBC (Bld) [#/Vol] 4.24 10*6/uL 4.2-5.4 [facility] Work Phone: [phone] Blood hemoglobin measurement (mass/volume)on 05-05-2021 Hemoglobin (Bld) [Mass/Vol] 12.5 g/dL 12.0-15.0 [facility] Work Phone: [phone] Blood platelet mean volumeon 05-05-2021 Platelet mean volume (Bld) [Entitic vol] 9.8 fL 6.2-12.0 [facility] Work Phone: [phone] Determination of erythrocyte mean corpuscular volume (MCV)on 05-05-2021 MCV (RBC) [Entitic vol] 89.2 fL 81-99 [facility] Work Phone: [phone] Hematocrit Auto (Bld) [Volum e fraction]on 05-05-2021 Hematocrit (Bld) [Volume fraction] 37.8 % 37-47 [facility] Work Phone: Laboratory - Chemistry and C hemistry - challengeon 05-05-2021 ALP [Catalytic activity/Vol] 71 U/L 45-117 [facility] Work Phone: ALT [Catalytic activity/Vol] 25 U/L 13-56 [facility] Work Phone: CO2 [Moles/Vol] 29.0 mmol/L 21.0-32.0 [facility] Work Phone: [phone] Globulin (S) [Mass/Vol] 3.6 g/dL 2.2-4.2 [facility] Work Phone: [phone] Urea nitrogen/Creatinine [Mass ratio] 21.4 mg/mg 10-20 [facility] Work Phone: [phone] Laboratory - Hematology and Cell countson 05-05-2021 Erythrocyte distribution width (RBC) [Entitic vol] 41.5 fL 35.1-43.9 [facility] Work Phone: [phone] Erythrocyte distribution width (RBC) [Ratio] 12.8 % 11.6-14.6 [facility] Work Phone: [phone] MCH (RBC) [Entitic mass] 29.5 pg 27.0-32.0 [facility] Work Phone: [phone] MCHC Auto (RBC) [Mass/Vol]on 05-05-2021 MCHC (RBC) [Mass/Vol] 33.1 g/dL 32-36 [facility] Work Phone: No Panel Informationon 05-05 Estimated GFR (MDRD) Amer 44 mL/min >60 [facility] Work Phone: Comment on above: GFR Calc Estimated GFR (MDRD) Non-Af Amer 37 mL/min >60 [facility] Work Phone: Comment on above: Non- GFR Calc Thyroid Stimulating Hormone (TSH) 5.77 uIU/mL 0.358-3.74 [facility] Work Phone: Vitamin D 25-Hydroxy 22.2 ng/mL [facility] Work Phone: Comment on above: Vitamin D 25(OH) Sta tus Range Deficiency <20 ng/mL (50nmol/L) Insufficiency 20 - 30 ng/mL (50 - 75 nmol/L) Sufficiency 30 - 100 ng/mL (75 - 250 nmol/L) Toxicity >100 ng/mL (>250 nmol/L) Platelets bldon 05-05-2021 Platelets (Bld) [#/Vol] 309 10*3/uL 150-450 [facility] Work Phone: Serum or plasma albumin aba urement (mass/volume)on 05-05-2021 Albumin [Mass/Vol] 2.7 g/dL 3.2-5.0 [facility] Work Phone: [phone] Serum or plasma albumin/glob ulin mass ratioon 05-05-2021 Albumin/Globulin [Mass ratio] 0.8 {ratio} 0.9-2.4 [facility] Work Phone: [phone] Serum or plasma calcium aba urement (mass/volume)on 05-05-2021 Calcium [Mass/Vol] 8.4 mg/dL 8.5-10.1 [facility] Work Phone: [phone] Serum or plasma cholesterol in HDL measurement (mass/volume)on 05-05-2021 Cholesterol in HDL [Mass/Vol] 34 mg/dL [facility] Work Phone: Comment on above: The drugs N-Acetylcy steine and Metamizole may falsely depress this assay. Reference Range HDL <40 mg/dL Low HDL Cholesterol HDL >or= 60 mg/dL High HDL Cholesterol Serum or plasma cholesterol in VLDL measurement (mass/volume)on 05-05-2021 Cholesterol in VLDL [Mass/Vol] 36 mg/dL 5-40 [facility] Work Phone: Serum or plasma creatinine m easurement (mass/volume)on 05-05-2021 Creatinine [Mass/Vol] 1.54 mg/dL 0.55-1.02 [facility] Work Phone: Comment on above: The validity of the calculated GFR & GFRAA in patients over 70 years has not been determined. Clinical correlation is essential. Serum or plasma low density lipoprotein (LDL) cholesterol measurement (mass/volume)on 05-05-2021 Cholesterol in LDL [Mass/Vol] 90 mg/dL 0-130 [facility] Work Phone: Serum or plasma urea nitroge n measurement (mass/volume)on 05-05-2021 Urea nitrogen [Mass/Vol] 33 mg/dL 7-18 [facility] Work Phone: Thin prep Papanicolaou smear with manual screeningon 05-05-2021 Thin prep Papanicolaou smear with manual screening 17 U/L 15-37 [facility] Work Phone: Comment on above: Slight Hemolysis, Re sult may be falsely increased. Thin prep Papanicolaou smear with manual screening 2 5-15 [facility] Work Phone: Whole blood hemoglobin A1c/t otal hemoglobin ratio (mass fraction)on 05-05-2021 HbA1c (Bld) [Mass fraction] 6.7 % 3.8-5.6 [facility] Work Phone: Comment on above: Normal < [...] by: JO AVENDANO MD Date: 08/12/2018 09:22 [facility] Glucose,Bedsideon 07-18-2018 Glucose mass conc 174 mg/dL High 70-100 [employer] Comment on above: Result Comment: Test performed by glucose meter. Results may be 10%-15% lower than serum/plasma values. (CLIA ID [id number]) Performed By: #### H EMDF, CMP3, TROPN, LIPA4, HA1C2 #### [employer] [address] [place] [address] Glucose mass conc 236 mg/dL High 70-100 [employer] [facility] Comment on above: Result Comment: Test performed by glucose meter. Results may be 10%-15% lower than serum/plasma values. (CLIA ID [id number]) Performed By: #### H EMDF, CMP3, TROPN, LIPA4, HA1C2 #### [employer] [facility] [place] [address] Add on test from HISon 07-17 Add on test from HIS Accepted Normal [facility] [facility] Comment on above: Result Comment: Spec imen available & acceptable for analysis. Performed By: #### A DDON #### [employer] [facility] [place] [address] Basic Metabolic Panelon 06-21 Anion gap molar conc 8 Normal [facility] Comment on above: Performed By: #### H EMDF, CMP3, TROPN, LIPA4, HA1C2 #### [address] Calcium mass conc 8.7 mg/dL Normal 8.4-10.4 [facility] Comment on above: Performed By: #### H EMDF, CMP3, TROPN, LIPA4, HA1C2 #### [address] Chloride molar conc 108 mmol/L High 98-107 [facility] Comment on above: Performed By: #### H EMDF, CMP3, TROPN, LIPA4, HA1C2 #### [address] CO2 molar conc 24 mmol/L Normal 22-30 [facility] Comment on above: Performed By: #### H EMDF, CMP3, TROPN, LIPA4, HA1C2 #### [address] Creatinine mass conc 0.85 mg/dL Normal 0.52-1.25 [facility] Comment on above: Performed By: #### H EMDF, CMP3, TROPN, LIPA4, HA1C2 #### [address] GFR/1.73 sq M predicted among blacks MDRD vol rate/area (S/P/Bld) mL/min/{1.73_m2} Normal >60 [facility] Comment on above: Performed By: #### H EMDF, CMP3, TROPN, LIPA4, HA1C2 #### [address] GFR/1.73 sq M predicted among non-blacks MDRD vol rate/area (S/P/Bld) mL/min/{1.73_m2} Normal >60 [facility] Comment on above: Result Comment: Sour ce- MDRD equation with creatinine calibration to IDMS(NKDEP) eGFR not recommended for drug dose adjustment Performed By: #### H EMDF, CMP3, TROPN, LIPA4, HA1C2 #### [facility] [address] [place] [address] Glucose mass conc 328 mg/dL High 70-100 [facility] Comment on above: Performed By: #### H EMDF, CMP3, TROPN, LIPA4, HA1C2 #### [address] [place] [address] Potassium molar conc 3.9 mmol/L Normal 3.5-5.1 [facility] Comment on above: Performed By: #### H EMDF, CMP3, TROPN, LIPA4, HA1C2 #### [address] [place] [address] Sodium molar conc 140 mmol/L Normal 135-145 [facility] Comment on above: Result Comment: Down time Data Recovery: Caution when interpreting results with collection date & time. Performed By: #### H EMDF, CMP3, TROPN, LIPA4, HA1C2 #### [address] [place] [address] Urea nitrogen mass conc 17 mg/dL Normal 7-20 [facility] Comment on above: Performed By: #### H EMDF, CMP3, TROPN, LIPA4, HA1C2 #### [address] [place] [address] Glucose,Bedsideon 07-17-2018 Glucose mass conc 264 mg/dL High 70-100 [facility] Comment on above: Result Comment: Test performed by glucose meter. Results may be 10%-15% lower than serum/plasma values. (CLIA ID [id number]) Performed By: #### H EMDF, CMP3, TROPN, LIPA4, HA1C2 #### [address] [place] [address] Glucose mass conc 271 mg/dL High 70-100 [facility] Comment on above: Result Comment: Test performed by glucose meter. Results may be 10%-15% lower than serum/plasma values. (CLIA ID [id number]) Performed By: #### H EMDF, CMP3, TROPN, LIPA4, HA1C2 #### [address] [address] Glucose mass conc 265 mg/dL High 70-100 [facility] Comment on above: Result Comment: Test performed by glucose meter. Results may be 10%-15% lower than serum/plasma values. (CLIA ID [id number]) Performed By: #### H EMDF, CMP3, TROPN, LIPA4, HA1C2 #### [address] [address] Hemoglobin A1Con 07-17-2018 Hemoglobin A1c/Hemoglobin.total mass fraction (Bld) 217 mg/dL Normal [facility] Comment on above: Performed By: #### H EMDF, CMP3, TROPN, LIPA4, HA1C2 #### [address] [address] Hemoglobin A1c/Hemoglobin.total mass fraction (Bld) 9.2 % High 4.0-5.7 [facility] Comment on above: Result Comment: --Hg bA1C levels may not be accurate in patients who have renal disease, received recent blood transfusions, are anemic, or who have dyshemoglobinemia. Performed By: #### H EMDF, CMP3, TROPN, LIPA4, HA1C2 #### [address] [address] Troponin Ion 07-17-2018 Troponin I.cardiac mass conc ng/mL Normal 0.000-0.034 [facility] Comment on above: Result Comment: 0.04 6 - 0.400 = Indeterminate > 0.400 = Consider Myocardial Injury Performed By: #### T ROPN #### [address] [address] [address] Abdomen/Pelvis w/ Contras ton 07-16-2018 CT Abdomen/Pelvis w/ Contrast Patient Name: CINTHYA CASTILLO CT Exam Date/Time 07/16/2018 19:52:[address] Abdomen/Pelvis w/ IV Contrast (IV Onl Ordering Physician [id number] -YENY VAZQUEZ Accession Number [id number] CPT4 Codes 54286 (CT Abdomen/Pelvis w/ IV Contrast (IV Onl), Q9967 (CT ISOVUE 370MG/[id number]) Reason For Exam ABDOMINAL PAIN Report [...] Transcribed Date and Time: 07/16/2018 8:00 Normal [facility] Comp Metabolic Panelon 07-16 ALP enzyme act/vol 63 U/L Normal 38-126 [facility] Comment on above: Result Comment: Slig htly hemolysed, interpret with caution. Performed By: #### H EMDF, CMP3, TROPN, LIPA4, HA1C2 #### [address] [address] [place], [place] ALT enzyme act/vol 25 U/L Normal 13-69 [facility] Comment on above: Result Comment: Slig htly hemolysed, interpret with caution. Performed By: #### H EMDF, CMP3, TROPN, LIPA4, HA1C2 #### [address] [place], [place] AST enzyme act/vol 34 U/L Normal 15-46 [facility] Comment on above: Result Comment: Slig htly hemolysed, interpret with caution. Performed By: #### H EMDF, CMP3, TROPN, LIPA4, HA1C2 #### [address] [place], [place] Calcium mass conc 9.1 mg/dL Normal 8.4-10.4 [facility] Comment on above: Performed By: #### H EMDF, CMP3, TROPN, LIPA4, HA1C2 #### [address] [place], [place] Glucose mass conc 357 mg/dL High 70-100 [facility] Comment on above: Performed By: #### H EMDF, CMP3, TROPN, LIPA4, HA1C2 #### [address] [place], [place] Protein mass conc 7.6 g/dL Normal 6.3-8.2 [facility] Comment on above: Performed By: #### H EMDF, CMP3, TROPN, LIPA4, HA1C2 #### [address] [place], [place] Urea nitrogen mass conc 26 mg/dL High 7-20 [facility] Comment on above: Performed By: #### H EMDF, CMP3, TROPN, LIPA4, HA1C2 #### [address] [place], [place] Anion gap molar conc 11 Normal [facility] Comment on above: Performed By: #### H EMDF, CMP3, TROPN, LIPA4, HA1C2 #### [address] [place], [place] Bilirubin mass conc 0.6 mg/dL Normal 0.2-1.3 [facility] Comment on above: Performed By: #### H EMDF, CMP3, TROPN, LIPA4, HA1C2 #### [address] [address] [place], [place] CO2 molar conc 23 mmol/L Normal 22-30 [facility] Comment on above: Performed By: #### H EMDF, CMP3, TROPN, LIPA4, HA1C2 #### [address] [address] [place], [place] Creatinine mass conc 0.93 mg/dL Normal 0.52-1.25 [facility] Comment on above: Performed By: #### H EMDF, CMP3, TROPN, LIPA4, HA1C2 #### [address] [address] [place], [place] GFR/1.73 sq M predicted among blacks MDRD vol rate/area (S/P/Bld) mL/min/{1.73_m2} Normal >60 [facility] Comment on above: Performed By: #### H EMDF, CMP3, TROPN, LIPA4, HA1C2 #### [address] [place], [place] GFR/1.73 sq M predicted among non-blacks MDRD vol rate/area (S/P/Bld) mL/min/{1.73_m2} Normal >60 [facility] Comment on above: Result Comment: Sour ce- MDRD equation with creatinine calibration to IDMS(NKDEP) eGFR not recommended for drug dose adjustment Performed By: #### H EMDF, CMP3, TROPN, LIPA4, HA1C2 #### [address] Albumin mass conc 4.1 g/dL Normal 3.5-5.0 [facility] Comment on above: Performed By: #### H EMDF, CMP3, TROPN, LIPA4, HA1C2 #### [address] Chloride molar conc 106 mmol/L Normal 98-107 [facility] Comment on above: Performed By: #### H EMDF, CMP3, TROPN, LIPA4, HA1C2 #### [address] Potassium molar conc 4.7 mmol/L Normal 3.5-5.1 [facility] Comment on above: Result Comment: Slig htly hemolysed, interpret with caution. Performed By: #### H EMDF, CMP3, TROPN, LIPA4, HA1C2 #### [address] [address] [place], [place] Sodium molar conc 140 mmol/L Normal 135-145 [facility] Comment on above: Performed By: #### H EMDF, CMP3, TROPN, LIPA4, HA1C2 #### [address] Hemogram w/ Autodiffon 07-16 Abs Baso Cnt 0.1 10*3/uL Normal 0.0-0.2 [facility] Comment on above: Performed By: #### H EMDF, CMP3, TROPN, LIPA4, HA1C2 #### [address] [address] [place], [place] Abs Neutrophile Cnt 8.5 10*3/uL High 1.8-7.0 [facility] Comment on above: Performed By: #### H EMDF, CMP3, TROPN, LIPA4, HA1C2 #### [address] Basophils/100 WBC (Bld) 0.7 % Normal 0.0-2.0 [facility] Comment on above: Performed By: #### H EMDF, CMP3, TROPN, LIPA4, HA1C2 #### [address] Eosinophils #/vol (Bld) 0.1 10*3/uL Normal 0.0-0.5 [facility] Comment on above: Performed By: #### H EMDF, CMP3, TROPN, LIPA4, HA1C2 #### [address] [address] Eosinophils/100 WBC (Bld) 1.2 % Normal 1.0-6.0 [facility] Comment on above: Performed By: #### H EMDF, CMP3, TROPN, LIPA4, HA1C2 #### [address] Erythrocyte distribution width Ratio (RBC) 14.3 % Normal 11.5-14.5 [facility] Comment on above: Performed By: #### H EMDF, CMP3, TROPN, LIPA4, HA1C2 #### [address] Granulocytes/100 WBC (Bld) 81.1 % High 40.0-80.0 [facility] Comment on above: Performed By: #### H EMDF, CMP3, TROPN, LIPA4, HA1C2 #### [address] Hematocrit Volume Fraction (Bld) 39.7 % Normal 35.0-47.0 [facility] Comment on above: Performed By: #### H EMDF, CMP3, TROPN, LIPA4, HA1C2 #### [address] Hemoglobin mass conc (Bld) 13.9 g/dL Normal 11.7-16.0 [facility] Comment on above: Performed By: #### H EMDF, CMP3, TROPN, LIPA4, HA1C2 #### [address] Lymphocytes #/vol (Bld) 1.3 10*3/uL Normal 1.0-4.3 [facility] Comment on above: Performed By: #### H EMDF, CMP3, TROPN, LIPA4, HA1C2 #### [address] Lymphocytes/100 WBC (Bld) 12.7 % Low 20.0-40.0 [facility] Comment on above: Performed By: #### H EMDF, CMP3, TROPN, LIPA4, HA1C2 #### [address] MCH Entitic mass (RBC) 30.4 pg Normal 26.0-34.0 [facility] Comment on above: Performed By: #### H EMDF, CMP3, TROPN, LIPA4, HA1C2 #### [address] MCHC mass conc (RBC) 35.0 % Normal 32.0-36.0 [facility] Comment on above: Performed By: #### H EMDF, CMP3, TROPN, LIPA4, HA1C2 #### [address] MCV Entitic volume (RBC) 87.0 fL Normal 79.0-98.0 [facility] Comment on above: Performed By: #### H EMDF, CMP3, TROPN, LIPA4, HA1C2 #### [address] Monocytes #/vol (Bld) 0.4 10*3/uL Normal 0.0-0.8 [facility] Comment on above: Performed By: #### H EMDF, CMP3, TROPN, LIPA4, HA1C2 #### [address] Monocytes/100 WBC (Bld) 4.3 % Normal 2.0-10.0 [facility] Comment on above: Performed By: #### H EMDF, CMP3, TROPN, LIPA4, HA1C2 #### [address] Platelet mean volume Entitic volume (Bld) 7.9 fL Normal 7.4-10.4 [facility] Comment on above: Performed By: #### H EMDF, CMP3, TROPN, LIPA4, HA1C2 #### [address] [address] Platelets #/vol (Bld) 256 10*3/uL Normal 140-440 [facility] Comment on above: Performed By: #### H EMDF, CMP3, TROPN, LIPA4, HA1C2 #### [address] [address] [place], [place] RBC #/vol (Bld) 4.56 10*6/uL Normal 3.80-5.20 [facility] Comment on above: Performed By: #### H EMDF, CMP3, TROPN, LIPA4, HA1C2 #### [address] [place], [place] WBC #/vol (Bld) 10.4 10*3/uL Normal 3.6-10.7 [facility] Comment on above: Performed By: #### H EMDF, CMP3, TROPN, LIPA4, HA1C2 #### [address] [place], [place] Lipaseon 07-16-2018 Lipase enzyme act/vol 179 U/L Normal 23-300 [facility] Comment on above: Performed By: #### H EMDF, CMP3, TROPN, LIPA4, HA1C2 #### [address] [address] [place], [place] Troponin Ion 07-16-2018 Troponin I.cardiac mass conc ng/mL Normal 0.000-0.034 [facility] Comment on above: Result Comment: 0.04 6 - 0.400 = Indeterminate > 0.400 = Consider Myocardial Injury Performed By: #### H EMDF, CMP3, TROPN, LIPA4, HA1C2 #### [address] [address] [place], [place] Urinalysis,Macroon 9 Appearance Nom (U) clear Normal Clear [facility] Comment on above: Performed By: #### U AMAC, UAMIC #### [address] [address] [place], [place] Bilirubin,Ur Negative Normal Negative [facility] Comment on above: Performed By: #### U AMAC, UAMIC #### [address] [address] [place], [place] Color Nom (U) yellow Normal Lt. Yellow [facility] Comment on above: Performed By: #### U AMAC, UAMIC #### [address] [address] [place], [place] Glucose Ql (U) 1000 mg/dL Normal Negative [facility] Comment on above: Performed By: #### U AMAC, UAMIC #### [address] [address] [place], [place] Ketone,Urine Negative Normal Negative [facility] Comment on above: Performed By: #### U AMAC, UAMIC #### [address] [address] [place], [place] Nitrite Ql (U) Negative Normal Negative [facility] Comment on above: Performed By: #### U AMAC, UAMIC #### [address] [address] [place], [place] Occult Blood,Ur 25 {RBC}/uL Normal Negative [facility] Comment on above: Performed By: #### U AMAC, UAMIC #### [address] [address] [place], [place] pH (U) 5.0 Normal 5.0-8.0 [facility] Comment on above: Performed By: #### U AMAC, UAMIC #### [address] [address] [place], [place] Protein mass conc (U) 150 mg/dL Normal Negative [facility] Comment on above: Performed By: #### U AMAC, UAMIC #### [address] [address] [place], [place] Specific [place],Urine 1.015 Normal 1.005-1.030 S [facility] Comment on above: Performed By: #### U AMAC, UAMIC #### [address] [address] [place], [place] Urobilinogen Qn (U) NORM Normal 0-1 [facility] Comment on above: Performed By: #### U AMAC, UAMIC #### [address] [place], [place] WBC #/vol (Bld) Negative Normal Negative [facility] Comment on above: Performed By: #### U AMAC, UAMIC #### [address] [address] [place], [place] Urinalysis,Microscopicon Bacteria LM.HPF #/area (Urine sed) Moderate (6-50) Normal Negative [facility] Comment on above: Performed By: #### U AMAC, UAMIC #### [facility] [address] [place], [place] Epithelial cells LM.HPF #/area (Urine sed) 6 - 10 Normal 3-5 [facility] Comment on above: Performed By: #### U AMAC UAMIC #### [address] [address] [place], [place] RBC LM.HPF #/area (Urine sed) 3 - 5 Normal 0-2 [facility] Comment on above: Performed By: #### U AMAC, UAMIC #### [address] [place], [place] Volume,Urine 8-12 ml Normal [facility] Comment on above: Performed By: #### U AMAC, UAMIC #### [address] [place], [place] WBC LM.HPF #/area (Urine sed) 3 - 5 Normal 0-5 [facility] Comment on above: Performed By: #### U AMAC, UAMIC #### [address] [place], [place] Comprehensive Panelon 2018 ALP enzyme act/vol 75 U/L Normal 46-116 [facility] Comment on above: Performed By: #### P 14 #### [place] [address] Bilirubin mass conc 0.4 mg/dL Normal 0.2-1.0 [facility] Comment on above: Performed By: #### P 14 #### [place] [address] Protein mass conc 7.8 g/dL Normal 6.4-8.2 [facility] Comment on above: Performed By: #### P 14 #### [facility] [address] [place], [place] [address] ALT enzyme act/vol 25 U/L Normal 12-78 [facility] Comment on above: Performed By: #### P 14 #### [facility] [address] [place], [place] [address] AST enzyme act/vol 13 U/L Normal 9-37 [facility] Comment on above: Performed By: #### P 14 #### [facility] [address] [place], [place] [address] Creatinine mass conc 0.99 mg/dL High 0.51-0.95 [facility] Comment on above: Performed By: #### P 14 #### [facility] [address] [place] [address] Albumin mass conc 3.9 g/dL Normal 3.4-5.0 [facility] Comment on above: Performed By: #### P 14 #### [facility] [address] [place] [address] Anion gap molar conc 12 mmol/L Normal 8-16 [facility] Comment on above: Performed By: #### P 14 #### [facility] [address] [place] [address] CO2 molar conc 25 mmol/L Normal 21-32 [facility] Comment on above: Performed By: #### P 14 #### [facility] [address] [place] [address] Glucose mass conc 92 mg/dL Normal 70-99 [facility] Comment on above: Performed By: #### P 14 #### [facility] [address] [place] [address] Urea nitrogen mass conc 19 mg/dL High 7-18 [facility] Comment on above: Performed By: #### P 14 #### [facility] [address] [place] [address] Calcium mass conc 9.3 mg/dL Normal 8.5-10.1 [facility] Comment on above: Performed By: #### P 14 #### [facility] [address] [place] [address] Chloride molar conc 108 mmol/L High 98-107 [facility] Comment on above: Performed By: #### P 14 #### [facility] [address] [place] [address] Potassium molar conc 3.4 mmol/L Low 3.5-5.1 [facility] Comment on above: Performed By: #### P 14 #### [facility] [address] [place] [address] Sodium molar conc 142 mmol/L Normal 136-145 [facility] Comment on above: Performed By: #### P 14 #### [facility] [address] [place] [address] ED NOTEon 06-27-2018 ED NOTE HNO ID: [id number] Author: Sarah PattenRn) Osiris RN Service: Nursing Author Type: Registered Nurse Type: ED Notes Filed: 06/27/2018 10:07 AM Note Text: Clean catch urine specimen obtained and sent. [facility] ED NOTE HNO ID: [id number] Author: Sarah PattenRn) Osiris RN Service: Nursing Author Type: Registered Nurse Type: ED Notes Filed: 06/27/2018 9:55 AM Note Text: ED U/S notified that patient is ready [facility] ED NOTE HNO ID: [id number] Author: Sarah PattenRn) Osiris RN Service: Nursing Author Type: Registered Nurse Type: ED Notes Filed: 06/27/2018 9:44 AM Note Text: Pt states that she can not ambulate to the bathroom, pt able to stand and ambulate in the room, pt assisted onto bedside commode. [facility] ED NOTE HNO ID: [id number] Author: Ara (Rn) ESTHER Landrum Service: ? Author Type: Registered Nurse Type: ED Notes Filed: 06/27/2018 8:29 AM Note Text: Bed: 11-ED Expected date: 06/27/18 Expected time: Means of arrival: Comments: Squad, weak legs [facility] ED NOTE HNO ID: [id number] Author: Sarah PattenRn) ESTHER Newell Service: Nursing Author Type: Registered Nurse Type: ED Notes Filed: 06/27/2018 8:21 AM Note Text: Pt states that her leg is starting to bother her, "underneath her good leg". States pain began last night. Normal [facility] ED NOTE HNO ID: [id number] Author: Sarah (Rn) ESTHER Newell Service: Nursing [...] NOTEon 06-27-2018 Protein mass conc HNO ID: [id number] Author: Bhavana Dewitt MD Service: Emergency Medicine [...] [facility] HNO ID: [id number] Author: Bhavana Dewitt MD Service: Emergency Medicine Author Type: Physician Type: ED Provider Notes Filed: 07/03/2018 2:32 PM Note Text: ED Provider Note Patient Name: Cinthya Castillo SERVICE DATE: 06/27/18 History Patient presents with: Weakness: Pt is from [facility]. Pt states this morning that she began [...] Glucose mass conc 97 mg/dL Normal 70-99 [facility] Comment on above: Result Comment: ESTHER LAKHANI MD NOTIFIED Performed By: #### P 14 #### [facility] [address] [place] [address] Hemogramon 06-27-2018 Erythrocyte distribution width Ratio (RBC) 13.3 % Normal 11.7-14.4 [facility] Comment on above: Performed By: #### P 14 #### [facility] [address] [place] [address] Hematocrit Volume Fraction (Bld) 38.8 % Normal 34.1-44.9 [facility] Comment on above: Performed By: #### P 14 #### [facility] [address] [place] [address] Hemoglobin mass conc (Bld) 13.2 g/dL Normal 11.2-15.7 [facility] Comment on above: Performed By: #### P 14 #### [facility] [address] [place] [address] MCH Entitic mass (RBC) 29.1 pg Normal 25.6-32.2 [facility] Comment on above: Performed By: #### P 14 #### [facility] [address] [place] [address] MCHC mass conc (RBC) 34.0 % Normal 31.6-34.8 [facility] Comment on above: Performed By: #### P 14 #### [facility] [address] [place] [address] MCV Entitic volume (RBC) 85.7 fL Normal 79.4-94.8 [facility] Comment on above: Performed By: #### P 14 #### [facility] [address] [place] [address] Platelet mean volume Entitic volume (Bld) 10.1 fL Normal 9.4-12.3 [facility] Comment on above: Performed By: #### P 14 #### [facility] [address] [place] [address] Platelets #/vol (Bld) 287 thou/cmm Normal 182-369 [facility] Comment on above: Performed By: #### P 14 #### [facility] [address] [place] [address] RBC #/vol (Bld) 4.53 mil/cmm Normal 3.93-5.22 [facility] Comment on above: Performed By: #### P 14 #### [facility] [address] [place] [address] RDW SD 41.7 fl Normal 36.4-46.3 [facility] Comment on above: Performed By: #### P 14 #### [facility] [address] [place] [address] WBC #/vol (Bld) 8.54 thou/cmm Normal 3.98-10.04 [facility] Comment on above: Performed By: #### P 14 #### [facility] [address] [place] [address] Lipase Bloodon 06-27-2018 Lipase Blood 122 U/L Normal 73-393 [facility] Comment on above: Performed By: #### L IP #### [place] [address] MDRD GFRon 06-27-2018 GFR/1.73 sq M predicted among non-blacks MDRD vol rate/area (S/P/Bld) 57.91 mL/min/{1.73_m2} Normal >60mL/min/1. 73m2 [facility] Comment on above: Result Comment: If t he patient is , multiply the result by 1.210. Performed By: #### L IP #### [place] [address] Urinalysis Routineon 019 Bacteria LM.HPF #/area (Urine sed) NONE Normal None [facility] Comment on above: Performed By: #### L IP #### [facility] [address] [place] [address] Ep Cells Urine 8.2 /hpf High 0.0-5.0 [facility] Comment on above: Performed By: #### L IP #### [facility] [address] [place] [address] Hyaline Cast 1.4 /lpf High 0.0-1.0 [facility] Comment on above: Performed By: #### L IP #### [place] [address] RBC,Urine 2.4 /hpf Normal 0.0-5.0 [facility] Comment on above: Performed By: #### L IP #### [facility] [address] [place] [address] WBC, Urine 5.3 /hpf High 0.0-5.0 [facility] Comment on above: Performed By: #### L IP #### [facility] [address] [place] [address] Appearance Nom (U) CLEAR Normal [facility] Comment on above: Performed By: #### L IP #### [facility] [address] [place] [address] Bilirubin Urine Negative Normal Negative [facility] Comment on above: Performed By: #### L IP #### [facility] [address] [place] [address] Color Nom (U) YELLOW Normal [facility] Comment on above: Performed By: #### L IP #### [facility] [address] [place] [address] Glucose Ql (U) Negative Normal Negative [facility] Comment on above: Performed By: #### L IP #### [facility] [address] [place] [address] Hemoglobin,Urine Negative Normal Negative [facility] Comment on above: Performed By: #### L IP #### [facility] [address] [place] [address] Ketone Urine Negative Normal Negative [facility] Comment on above: Performed By: #### L IP #### [facility] [address] [place] [address] Leukocytes Esterase Negative Normal Negative [facility] Comment on above: Performed By: #### L IP #### [facility] [address] [place] [address] Nitrites Urine Negative Normal Negative [facility] Comment on above: Performed By: #### L IP #### [facility] [address] [place] [address] pH (U) 7.0 [pH] Normal 5.0-8.0 [facility] Comment on above: Performed By: #### L IP #### [facility] [address] [place], [place] [address] Protein mass conc (U) 300 mg/dL Abnormal Negative [facility] Comment on above: Performed By: #### L IP #### [facility] [address] [place], [place] [address] Specific [place], Ur 1.025 Normal 1.005-1.030 [facility] Comment on above: Performed By: #### L IP #### [facility] [address] [place], [place] [address] Urobilinogen,Ur 1.0 EU/dL Normal 0.0-1.0 [facility] Comment on above: Performed By: #### L IP #### [facility] [address] [place], [place] [address] XR Chest Mobile 1 viewon XR Chest [...] by: DENNIS MORALES MD Date: 05/06/2018 23:57 [facility] XR Hip Left 2-3 viewson 04-22 [...] by: DENNIS MORALES MD Date: 05/07/2018 00:04 [facility] XR Knee Left complete 4 plus [...] by: DENNIS MORALES MD Date: 05/06/2018 23:58 [facility] XR Spine Lumbar Sacral 2 -3 [...] Morales On: 05/07/2018 00:07 Read by: DENNIS MROALES MD Date: 05/07/2018 00:07 [facility] ALLIED HEALTHon 03-15-2018 ALLIED HEALTH HNO ID: [id number] Author: Tereso Donnelly) Ilya, Student Service: Spiritual Care Author Type: Extension Educator Type: Allied Health Filed: 03/15/2018 12:03 PM Note Text: SPIRITUALCARE Spiritual Care Visit- Brief Note Name: Cinthya Castillo Date: March 15, 2018 Notes: Scrubs delivered. Extension Educator Signature: Hammad Flanaganin Elevator Erector Helper To contact the Spiritual Care Department: Please call [phone] or Page the On-Call Extension Educator at pager [phone] Thank you for the opportunity to be of service. This is an electronically created document. IF PRINTED, PLEASE DO NOT REMOVE FROM THE CHART OR MODIFY PRINTED COPY. Normal [facility] Basic Panelon 03-15-2018 Creatinine mass conc 1.14 mg/dL High 0.51-0.95 [facility] Comment on above: Performed By: #### P 14 #### [facility] [address] [place] [address] Anion gap molar conc 11 mmol/L Normal 8-16 [facility] Comment on above: Performed By: #### P 14 #### [facility] [address] [place] [address] Calcium mass conc 8.8 mg/dL Normal 8.5-10.1 [facility] Comment on above: Performed By: #### P 14 #### [facility] [address] [place] [address] CO2 molar conc 27 mmol/L Normal 21-32 [facility] Comment on above: Performed By: #### P 14 #### [facility] [address] [place] [address] Glucose mass conc 99 mg/dL Normal 70-99 [facility] Comment on above: Performed By: #### P 14 #### [facility] [address] [place] [address] Urea nitrogen mass conc 28 mg/dL High 7-18 [facility] Comment on above: Performed By: #### P 14 #### [facility] [address] [place] [address] Chloride molar conc 108 mmol/L High 98-107 [facility] Comment on above: Performed By: #### P 14 #### [facility] [address] [place] [address] Potassium molar conc 4.1 mmol/L Normal 3.5-5.1 [facility] Comment on above: Performed By: #### P 14 #### [facility] [address] [place] [address] Sodium molar conc 142 mmol/L Normal 136-145 [facility] Comment on above: Performed By: #### P 14 #### [facility] [address] [place] [address] CASE MANAGEMon 03-15-2018 CASE MANAGEM HNO ID: [id number] Author: Addis (Rn) ESTHER Tran Service: Care Management Author Type: Registered Nurse Type: Care Mgt Progress Note Filed: 03/15/2018 9:16 AM Note Text: CARE MANAGEMENT DISCHARGE NOTE SERVICE DATE: 03/15/2018 SERVICE TIME: 9:11 AM LOS: 14 days Admission Date: 03/01/2018 DISCHARGE ARRANGEMENT (list agency and phone number) alf facility: Was an expedited discharge program used? No Provider: Delmy CAREGIVER ASSESSMENT: Caregiver is ready, willing and able to meet the patient's needs as recommended by the inter-professional team? No Caregiver Needed Patient's transition needs and plan for meeting these needs: dc to [facility] Does the patient have an acute stroke diagnosis, or has the patient had a stroke during this admission? No HANDOFF COMMUNICATION: dc orders sent through ecin TRANSPORTATION ARRANGEMENTS: Mode of Transportation: [employer] Transportation Agency and Phone #: [facility] ambulance ( [facility] ) [phone] / [phone]. Date of Trip: 03/15/2018 Type of Service: Wheelchair Is Patient Medicaid Pending: No Discussion of financial coverage occurred with Patient . Cloth Dyeing Range Tender Location: [facility] Destination: [facility] Financial Care Management Responsibility: None Estimated Charge: n/a Approving Rn Advice: n/a ADDITIONAL CONTACT RESOURCES: n/a Discharge Information Row Name ED to Hosp-Admission (Current) from 03/01/2018 in [place] [address] [facility] Agency [place] [address] Discharge orders completed. Patient will dc to [facility]. Patient will travel via wheelchair ambulette, rotary planer set up operator time is 1030. Patient and RN aware. SIGNATURE: Addis Tran RN PATIENT NAME: Cinthya Castillo DATE: March 15, 2018 TIME: 9:11 AM PAGER/CONTACT #: [phone] Normal [facility] CNDSon 03-15-2018 CNDS HNO ID: [id number] Author: Dez Vicente Res, Cha, MD Service: Hospital Medicine Author Type: Resident Type: Discharge Summaries Filed: 03/15/2018 1:45 PM Note Text: Attestation signed by Peter Delarosa at 03/16/2018 8:03 AM Teaching Attending Note: I personally saw and evaluated the patient. I reviewed the resident's note. I agree with the resident's assessment and plan unless otherwise noted. Peter Delarosa MD [facility] [place] Attending March 16, 2018 8:02 AM DISCHARGE [...] PATIENT CONDITION AT DISCHARGE: Stable DISCHARGE DISPOSITION: Detention Facility Discharge Physical Exam: VITAL SIGNS: BP [...] ED to Hosp-Admission (Current) from 03/01/[address] Det[address] Facility Agency [address], [facility] [address] The patient's risk for 30-day readmission is [...] Dez Vicente Cha, MD PAGER/CONTACT #: Pager: [phone] DATE: March 14, 2018 TIME: 5:02 PM Normal [facility] CONSULT PROGon 03-15-2018 Protein mass conc HNO ID: [id number] Author: Savana Souza Service: Endocrinology Author Type: [...] Glucose mass conc 111 mg/dL High 70-99 [facility] Comment on above: Result Comment: ESTHER LAKHANI Performed By: #### G LMET #### [place] [address] Hemogram/Diffon 03-15-2018 Abs Immature Grans 0.27 thou/cmm High 0.00-0.05 [facility] Comment on above: Performed By: #### P 14 #### [place] [address] Abs. Baso 0.06 thou/cmm Normal 0.01-0.08 [facility] Comment on above: Result Comment: Smea r scanned; tech agrees with automated differential Performed By: #### P 14 #### [place] [address] Abs. [place] 0.90 thou/cmm High 0.27-0.70 [facility] Comment on above: Performed By: #### P 14 #### [place] [address] Abs. Neut (ANC) 9.19 thou/cmm High 1.56-6.13 [facility] Comment on above: Performed By: #### P 14 #### [place] [address] Basophils/100 WBC (Bld) 0.5 % Normal [facility] Comment on above: Performed By: #### P 14 #### [place] [address] Eosinophils #/vol (Bld) 0.56 thou/cmm High 0.00-0.31 [facility] Comment on above: Performed By: #### P 14 #### [place] [address] Eosinophils/100 WBC (Bld) 4.4 % Normal [facility] Comment on above: Performed By: #### P 14 #### [place] [address] Immature Grans 2.10 % Normal [facility] Comment on above: Performed By: #### P 14 #### [address] [place], [place] [address] Lymphocytes #/vol (Bld) 1.65 thou/cmm Normal 1.18-3.74 [facility] Comment on above: Performed By: #### P 14 #### [facility] [address] [place], [place] [address] Lymphocytes/100 WBC (Bld) 13.1 % Normal [facility] Comment on above: Performed By: #### P 14 #### [facility] [address] [place], [place] [address] Monocytes/100 WBC (Bld) 7.1 % Normal [facility] Comment on above: Performed By: #### P 14 #### [facility] [address] [place] [address] Seg Neutrophil 72.8 % Normal [facility] Comment on above: Performed By: #### P 14 #### [facility] [address] [place] [address] Erythrocyte distribution width Ratio (RBC) 12.0 % Normal 11.7-14.4 [facility] Comment on above: Performed By: #### P 14 #### [facility] [address] [place] [address] Hematocrit Volume Fraction (Bld) 32.4 % Low 34.1-44.9 [facility] Comment on above: Performed By: #### P 14 #### [facility] [address] [place] [address] Hemoglobin mass conc (Bld) 10.3 g/dL Low 11.2-15.7 [facility] Comment on above: Performed By: #### P 14 #### [facility] [address] [place], [place] [address] MCH Entitic mass (RBC) 30.4 pg Normal 25.6-32.2 [facility] Comment on above: Performed By: #### P 14 #### [facility] [address] [place] [address] MCHC mass conc (RBC) 31.8 % Normal 31.6-34.8 [facility] Comment on above: Performed By: #### P 14 #### [facility] [address] [place] [address] MCV Entitic volume (RBC) 95.6 fL High 79.4-94.8 [facility] Comment on above: Performed By: #### P 14 #### [facility] [address] [place] [address] Platelet mean volume Entitic volume (Bld) 9.5 fL Normal 9.4-12.3 [facility] Comment on above: Performed By: #### P 14 #### [facility] [address] [place] [address] Platelets #/vol (Bld) 446 thou/cmm High 182-369 [facility] Comment on above: Performed By: #### P 14 #### [place] [address] RBC #/vol (Bld) 3.39 mil/cmm Low 3.93-5.22 [facility] Comment on above: Performed By: #### P 14 #### [place] [address] RDW SD 42.3 fl Normal 36.4-46.3 [facility] Comment on above: Performed By: #### P 14 #### [place] [address] WBC #/vol (Bld) 12.62 thou/cmm High 3.98-10.04 [facility] Comment on above: Performed By: #### P 14 #### [place] [address] MDRD GFRon 03-15-2018 GFR/1.73 sq M predicted among non-blacks MDRD vol rate/area (S/P/Bld) 49.26 mL/min/{1.73_m2} Normal >60mL/min/1. 73m2 [facility] Comment on above: Result Comment: If t he patient is , multiply the result by 1.210. Performed By: #### G FR #### [place] [address] NURSING PROGon 03-15-2018 Protein mass conc HNO ID: [id number] Author: Fabby PattenRn) ESTHER Powell Service: (none) Author Type: Registered Nurse Type: Nursing Progress Note Filed: 03/15/2018 9:53 AM Note Text: Called to give report to jeovany braun; report given to Nikki Cerda [facility] PROGRESSon 03-15-2018 Protein mass conc HNO ID: [id number] Author: Dez Vicente (Res) MD [place] Service: [...] still be discharged with antibiotics. Spoke to director of career resources, she'll beleaving the hospital at 10:30 AM. Normal [facility] Basic Panelon 03-14-2018 Creatinine mass conc 1.10 mg/dL High 0.51-0.95 [facility] Comment on above: Performed By: #### P 14 #### [facility] [address] [place] [address] Anion gap molar conc 11 mmol/L Normal 8-16 [facility] Comment on above: Performed By: #### P 14 #### [facility] [address] [place] [address] CO2 molar conc 26 mmol/L Normal 21-32 [facility] Comment on above: Performed By: #### P 14 #### [facility] [address] [place] [address] Glucose mass conc 145 mg/dL High 70-99 [facility] Comment on above: Performed By: #### P 14 #### [facility] [address] [place] [address] Urea nitrogen mass conc 28 mg/dL High 7-18 [facility] Comment on above: Performed By: #### P 14 #### [facility] [address] [place] [address] Calcium mass conc 8.8 mg/dL Normal 8.5-10.1 [facility] Comment on above: Performed By: #### P 14 #### [facility] [address] [place] [address] Chloride molar conc 107 mmol/L Normal 98-107 [facility] Comment on above: Performed By: #### P 14 #### [facility] [address] [place] [address] Potassium molar conc 4.0 mmol/L Normal 3.5-5.1 [facility] Comment on above: Performed By: #### P 14 #### [facility] [address] [place] [address] Sodium molar conc 140 mmol/L Normal 136-145 [facility] Comment on above: Performed By: #### P 14 #### [facility] [address] [place] [address] CASE MANAGEMon 03-14-2018 CASE MANAGEM HNO ID: [id number] Author: Radha PattenRn) ESTHER Thomas Service: Care Management Author Type: Registered Nurse Type: Care Mgt Progress Note Filed: 03/14/2018 3:37 PM Note Text: CARE MANAGEMENT DISCHARGE NOTE SERVICE DATE: 03/14/2018 SERVICE TIME: 3:33 PM LOS: 13 days Admission Date: 03/01/2018 DISCHARGE ARRANGEMENT (list agency and phone number) alf facility: Was an expedited discharge program used? No Provider: [facility] CAREGIVER ASSESSMENT: Caregiver is ready, willing and able to meet the patient's needs as recommended by the inter-professional team? d/c to SNF Patient's transition needs and plan for meeting these needs: d/c to SNF Does the patient have an acute stroke diagnosis, or has the patient had a stroke during this admission? No HANDOFF COMMUNICATION: Chief Substation Operator: VM left with Clifton Murray Payor Fire Boat Engineer: VM left with Karen Tello CM nurse to call report to [facility] TRANSPORTATION ARRANGEMENTS: wheelchair through [facility] ADDITIONAL CONTACT RESOURCES: n//a Discharge Information Row Name ED to Hosp-Admission (Current) from 03/01/2018 in [place] [address] [facility] Agency [place] [id number] Patient d/c today, orders complete. Updated patient at bedside. RN and Industrial Automation Engineer notified of time. Community CM Clifton Murray notified of d/c today. No other needs identified. Patient d/c today. SIGNATURE: Radha Thomas RN PATIENT NAME: Cinthya Castillo DATE: March 14, 2018 TIME: 3:33 PM PAGER/CONTACT #: [phone] [facility] CASE MANAGEM HNO ID: [id number] Author: Radha PattenRn) ESTHER Thomas Service: Care Management Author Type: Registered Nurse Type: Care Mgt Progress Note Filed: 03/14/2018 1:41 PM Note Text: CARE MANAGEMENT PROGRESS NOTE SERVICE DATE: 03/14/2018 SERVICE TIME: 1:34 PM LOS: 13 days Needs Prior to Discharge: Ready for Discharge;Discharge Transportation Update from Jeovany ocampo, Dajuan Gil, stating we can set up transport for d/c today. Spoke to MD Dr. Esteban regarding auth to d/c. Stated he would d/c patient today. Left VM with Clifton Murray, care-director style/bioinformatics assistant and left VM with Karen Morales at [phone], Elisha AGUIRRE to follow up with patient. Will await d/c orders. SIGNATURE: Radha Thomas RN PATIENT NAME: Cinthya Castillo DATE: March 14, 2018 TIME: 1:33 PM PAGER/CONTACT #: [phone] [facility] CASE MANAGEM HNO ID: [id number] Author: Radha PattenRn) ESTHER Thomas Service: Care Management Author Type: Registered Nurse Type: Care Mgt Progress Note Filed: 03/14/2018 1:14 PM Note Text: CARE MANAGEMENT PROGRESS NOTE SERVICE DATE: 03/14/2018 SERVICE TIME: 1:09 PM LOS: 13 days Auth obtained for d/c today. However, [facility] liaison is stating he cannot accept this patient if elisha will only approve 3 days for teaching. Provided risa Courtneyison with elisha corporate sales representative phone number to discuss his concerns. Will continue to follow. SIGNATURE: Radha Thomas RN PATIENT NAME: Cinthya Castillo DATE: March 14, 2018 TIME: 1:09 PM PAGER/CONTACT #: [phone] [facility] CASE MANAGEM HNO ID: [id number] Author: Radha (Rn) ESTHER Thomas Service: Care Management Author Type: Registered Nurse Type: Care Mgt Progress Note Filed: 03/14/2018 11:34 AM Note Text: CARE MANAGEMENT PROGRESS NOTE SERVICE DATE: 03/14/2018 SERVICE TIME: .now LOS: 13 days Needs Prior to Discharge: Insurance Authorization;Discharg e Transportation Awaiting pre-cert for d/c to [facility]. Started today. SIGNATURE: Radha Thomas RN PATIENT NAME: Cinthya Castillo DATE: March 14, 2018 TIME: 11:33 AM PAGER/CONTACT #: [phone] [facility] CONSULT PROGon 03-14-2018 Protein mass conc HNO ID: [id number] Author: Savana Souza Service: Endocrinology Author Type: [...] Abs Immature Grans 0.44 thou/cmm High 0.00-0.05 [facility] Comment on above: Performed By: #### P 14 #### [facility] [address] [place] [address] Abs. Baso 0.08 thou/cmm Normal 0.01-0.08 [facility] Comment on above: Result Comment: Smea r scanned; tech agrees with automated differential Performed By: #### P 14 #### [place] [address] Abs. Burleson 0.90 thou/cmm High 0.27-0.70 [facility] Comment on above: Performed By: #### P 14 #### [place] [address] Abs. Neut (ANC) 8.98 thou/cmm High 1.56-6.13 [facility] Comment on above: Performed By: #### P 14 #### [place] [address] Basophils/100 WBC (Bld) 0.6 % Normal [facility] Comment on above: Performed By: #### P 14 #### [place] [address] Eosinophils #/vol (Bld) 0.62 thou/cmm High 0.00-0.31 [facility] Comment on above: Performed By: #### P 14 #### [place] [address] Eosinophils/100 WBC (Bld) 4.8 % Normal [facility] Comment on above: Performed By: #### P 14 #### [place] [address] Immature Grans 3.40 % Normal [facility] Comment on above: Performed By: #### P 14 #### [facility] [address] [place], [place] [address] Lymphocytes #/vol (Bld) 1.99 thou/cmm Normal 1.18-3.74 [facility] Comment on above: Performed By: #### P 14 #### [facility] [address] [place], [place] [address] Lymphocytes/100 WBC (Bld) 15.3 % Normal [facility] Comment on above: Performed By: #### P 14 #### [facility] [address] [place], [place] [address] Monocytes/100 WBC (Bld) 6.9 % Normal [facility] Comment on above: Performed By: #### P 14 #### [facility] [address] [place] [address] Seg Neutrophil 69.0 % Normal [facility] Comment on above: Performed By: #### P 14 #### [facility] [address] [place] [address] Erythrocyte distribution width Ratio (RBC) 12.0 % Normal 11.7-14.4 [facility] Comment on above: Performed By: #### P 14 #### [facility] [address] [place] [address] Hematocrit Volume Fraction (Bld) 31.8 % Low 34.1-44.9 [facility] Comment on above: Performed By: #### P 14 #### [facility] [address] [place] [address] Hemoglobin mass conc (Bld) 10.2 g/dL Low 11.2-15.7 [facility] Comment on above: Performed By: #### P 14 #### [facility] [address] [place], [place] [address] MCH Entitic mass (RBC) 30.9 pg Normal 25.6-32.2 [facility] Comment on above: Performed By: #### P 14 #### [facility] [address] [place] [address] MCHC mass conc (RBC) 32.1 % Normal 31.6-34.8 [facility] Comment on above: Performed By: #### P 14 #### [facility] [address] [place] [address] MCV Entitic volume (RBC) 96.4 fL High 79.4-94.8 [facility] Comment on above: Performed By: #### P 14 #### [facility] [address] [place] [address] Platelet mean volume Entitic volume (Bld) 9.8 fL Normal 9.4-12.3 [facility] Comment on above: Performed By: #### P 14 #### [facility] [address] [place] [address] Platelets #/vol (Bld) 466 thou/cmm High 182-369 [facility] Comment on above: Performed By: #### P 14 #### [facility] [address] [place] [address] RBC #/vol (Bld) 3.30 mil/cmm Low 3.93-5.22 [facility] Comment on above: Performed By: #### P 14 #### [facility] [address] [place] [address] RDW SD 42.4 fl Normal 36.4-46.3 [facility] Comment on above: Performed By: #### P 14 #### [facility] [address] [place] [address] WBC #/vol (Bld) 13.01 thou/cmm High 3.98-10.04 [facility] Comment on above: Performed By: #### P 14 #### [place] [address] PLAN OF CAREon 03-14-2018 PLAN OF CARE HNO ID: [id number] Author: Gabo Jackson Service: Pharmacy Author Type: [...] the medication orders have been addressed by DANNI. Gabo Jackson, PharmD March 14, 2018 4:48 PM Pager: [phone] 03/14/2018 4:48 PM Medication List START taking [...] tablet Normal [facility] PLAN OF CARE HNO ID: [id number] Author: Laura Harvey (Pharmacist) Service: Pharmacy Author [...] Medication List. Patient is being discharged to [facility] ([facility]). Many medications were adjusted during admission. Changes to medications QUOTATION CHECKER will be continued at [facility]. Course of oral antibiotics also being finish at [facility] (enddate 03/18). LAURA HARVEY, PHARMACIST March 14, [...] PROGRESSon 03-14-2018 Protein mass conc HNO ID: [id number] Author: Peter Delarosa Service: Hospital Medicine Author [...] Endo insulin regimen input. Peter Delarosa MD [facility] [place] Attending March 14, 2018 4:19 PM Normal [facility] Basic Panelon 03-13-2018 Creatinine mass conc 1.35 mg/dL High 0.51-0.95 [facility] Comment on above: Performed By: #### P 14 #### [place] [address] Anion gap molar conc 11 mmol/L Normal 8-16 [facility] Comment on above: Performed By: #### P 14 #### [place] [address] CO2 molar conc 27 mmol/L Normal 21-32 [facility] Comment on above: Performed By: #### P 14 #### [facility] [address] [place], [place] [address] Glucose mass conc 136 mg/dL High 70-99 [facility] Comment on above: Performed By: #### P 14 #### [place] [address] Urea nitrogen mass conc 28 mg/dL High 7-18 [facility] Comment on above: Performed By: #### P 14 #### [address], [place] [address] Calcium mass conc 8.7 mg/dL Normal 8.5-10.1 [facility] Comment on above: Performed By: #### P 14 #### [facility] [address] [place] [address] Chloride molar conc 107 mmol/L Normal 98-107 [facility] Comment on above: Performed By: #### P 14 #### [facility] [address] [place] [address] Potassium molar conc 4.1 mmol/L Normal 3.5-5.1 [facility] Comment on above: Performed By: #### P 14 #### [facility] [address] [place] [address] Sodium molar conc 141 mmol/L Normal 136-145 [facility] Comment on above: Performed By: #### P 14 #### [place] [address] Hemogram/Diffon 03-13-2018 Abs Immature Grans 0.57 thou/cmm High 0.00-0.05 [facility] Comment on above: Performed By: #### P 14 #### [place] [address] Abs. Baso 0.08 thou/cmm Normal 0.01-0.08 [facility] Comment on above: Result Comment: Smea r scanned; tech agrees with automated differential Performed By: #### P 14 #### [place] [address] Abs. Burleson 1.11 thou/cmm High 0.27-0.70 [facility] Comment on above: Performed By: #### P 14 #### [place] [address] Abs. Neut (ANC) 7.88 thou/cmm High 1.56-6.13 [facility] Comment on above: Performed By: #### P 14 #### [place] [address] Basophils/100 WBC (Bld) 0.6 % Normal [facility] Comment on above: Performed By: #### P 14 #### [facility] [address] [place] [address] Eosinophils #/vol (Bld) 0.60 thou/cmm High 0.00-0.31 [facility] Comment on above: Performed By: #### P 14 #### [facility] [address] [place], [place] [address] Eosinophils/100 WBC (Bld) 4.8 % Normal [facility] Comment on above: Performed By: #### P 14 #### [facility] [address] [place] [address] Immature Grans 4.50 % Normal [facility] Comment on above: Performed By: #### P 14 #### [facility] [address] [place] [address] Lymphocytes #/vol (Bld) 2.34 thou/cmm Normal 1.18-3.74 [facility] Comment on above: Performed By: #### P 14 #### [facility] [address] [place] [address] Lymphocytes/100 WBC (Bld) 18.6 % Normal [facility] Comment on above: Performed By: #### P 14 #### [facility] [address] [place] [address] Monocytes/100 WBC (Bld) 8.8 % Normal [facility] Comment on above: Performed By: #### P 14 #### [facility] [address] [place] [address] Seg Neutrophil 62.7 % Normal [facility] Comment on above: Performed By: #### P 14 #### [facility] [address] [place] [address] Erythrocyte distribution width Ratio (RBC) 12.2 % Normal 11.7-14.4 [facility] Comment on above: Performed By: #### P 14 #### [facility] [address] [place] [address] Hematocrit Volume Fraction (Bld) 33.7 % Low 34.1-44.9 [facility] Comment on above: Performed By: #### P 14 #### [facility] [address] [place] [address] Hemoglobin mass conc (Bld) 10.6 g/dL Low 11.2-15.7 [facility] Comment on above: Performed By: #### P 14 #### [facility] [address] [place] [address] MCH Entitic mass (RBC) 30.2 pg Normal 25.6-32.2 [facility] Comment on above: Performed By: #### P 14 #### [facility] [address] [place] [address] MCHC mass conc (RBC) 31.5 % Low 31.6-34.8 [facility] Comment on above: Performed By: #### P 14 #### [facility] [address] [place] [address] MCV Entitic volume (RBC) 96.0 fL High 79.4-94.8 [facility] Comment on above: Performed By: #### P 14 #### [facility] [address] [place] [address] Platelet mean volume Entitic volume (Bld) 9.4 fL Normal 9.4-12.3 [facility] Comment on above: Performed By: #### P 14 #### [facility] [address] [place] [address] Platelets #/vol (Bld) 438 thou/cmm High 182-369 [facility] Comment on above: Performed By: #### P 14 #### [facility] [address] [place] [address] RBC #/vol (Bld) 3.51 mil/cmm Low 3.93-5.22 [facility] Comment on above: Performed By: #### P 14 #### [facility] [address] [place] [address] RDW SD 42.5 fl Normal 36.4-46.3 [facility] Comment on above: Performed By: #### P 14 #### [facility] [address] [place] [address] WBC #/vol (Bld) 12.56 thou/cmm High 3.98-10.04 [facility] Comment on above: Performed By: #### P 14 #### [facility] [address] [place] [address] PLAN OF CAREon 03-13-2018 PLAN OF CARE HNO ID: [id number] Author: Savana Souza Service: Endocrinology Author Type: [...] DM regimen Will follow Savana Souza MD [facility] PROGRESSon 03-13-2018 Protein mass conc HNO ID: [id number] Author: Dez Vicente (Res) MD [place] Service: [...] pmhx of HTN, DM, developmental delay, from [facility] presented on [facility] for a fall at [...] and patient's developmental delay. Patient has a employment evaluator/case manager who has helped with her medications in [...] diet - Endocrinology following -awaiting acceptance at [facility]- for help with insulin regimen Patient has displayed a lack of ability to administer her insulin regime without assistance. After discussions with the [facility] CM there are not the support or resources to assist at [facility]. There is concern that without help administering [...] 1545 -- 03/01/18 1715 pneumatic compression stockings (ny,oh) VTE Prophylaxis: VTE prophylaxis appropriate Plan of care discussed with: Attending SIGNATURE: Dez Vicente Cha, MD PATIENT NAME: Cinthya Castillo DATE: March 13, 2018 TIME: 10:43 AM PAGER/CONTACT #: Pager: [phone] Normal [facility] Basic Panelon 03-12-2018 Creatinine mass conc 1.14 mg/dL High 0.51-0.95 [facility] Comment on above: Performed By: #### P 14 #### [facility] [address] [place], [place] [address] Urea nitrogen mass conc 26 mg/dL High 7-18 [facility] Comment on above: Performed By: #### P 14 #### [place] [address] Anion gap molar conc 13 mmol/L Normal 8-16 [facility] Comment on above: Performed By: #### P 14 #### [address], [place] [address] Calcium mass conc 8.9 mg/dL Normal 8.5-10.1 [facility] Comment on above: Performed By: #### P 14 #### [facility] [address] [place] [address] CO2 molar conc 25 mmol/L Normal 21-32 [facility] Comment on above: Performed By: #### P 14 #### [facility] [address] [place] [address] Glucose mass conc 83 mg/dL Normal 70-99 [facility] Comment on above: Performed By: #### P 14 #### [facility] [address] [place] [address] Chloride molar conc 107 mmol/L Normal 98-107 [facility] Comment on above: Performed By: #### P 14 #### [facility] [address] [place] [address] Potassium molar conc 3.9 mmol/L Normal 3.5-5.1 [facility] Comment on above: Performed By: #### P 14 #### [facility] [address] [place] [address] Sodium molar conc 141 mmol/L Normal 136-145 [facility] Comment on above: Performed By: #### P 14 #### [facility] [address] [place] [address] Hemogram/Diffon 03-12-2018 Abs Immature Grans 0.55 thou/cmm High 0.00-0.05 [facility] Comment on above: Performed By: #### U RIN2 #### [facility] [address] [place] [address] Abs. Baso 0.11 thou/cmm High 0.01-0.08 [facility] Comment on above: Performed By: #### U RIN2 #### [facility] [address] [place] [address] Abs. [place]on 1.30 thou/cmm High 0.27-0.70 [facility] Comment on above: Performed By: #### U RIN2 #### [facility] [address] [place] [address] Abs. Neut (ANC) 8.75 thou/cmm High 1.56-6.13 [facility] Comment on above: Performed By: #### U RIN2 #### [facility] [address] [place], [place] [address] Basophils/100 WBC (Bld) 0.8 % Normal [facility] Comment on above: Performed By: #### U RIN2 #### [facility] [address] [place] [address] Eosinophils #/vol (Bld) 0.57 thou/cmm High 0.00-0.31 [facility] Comment on above: Performed By: #### U RIN2 #### [facility] [address] [place] [address] Eosinophils/100 WBC (Bld) 4.1 % Normal [facility] Comment on above: Performed By: #### U RIN2 #### [facility] [address] [place] [address] Immature Grans 3.90 % Normal [facility] Comment on above: Performed By: #### U RIN2 #### [facility] [address] [place], [place] [address] Lymphocytes #/vol (Bld) 2.73 thou/cmm Normal 1.18-3.74 [facility] Comment on above: Performed By: #### U RIN2 #### [facility] [address] [place], [place] [address] Lymphocytes/100 WBC (Bld) 19.5 % Normal [facility] Comment on above: Performed By: #### U RIN2 #### [facility] [address] [place], [place] [address] Monocytes/100 WBC (Bld) 9.3 % Normal [facility] Comment on above: Performed By: #### U RIN2 #### [facility] [address] [place] [address] Seg Neutrophil 62.4 % Normal [facility] Comment on above: Performed By: #### U RIN2 #### [place] [address] Erythrocyte distribution width Ratio (RBC) 12.2 % Normal 11.7-14.4 [facility] Comment on above: Performed By: #### U RIN2 #### [facility] [address] [place] [address] Hematocrit Volume Fraction (Bld) 33.4 % Low 34.1-44.9 [facility] Comment on above: Performed By: #### U RIN2 #### [facility] [address] [place] [address] Hemoglobin mass conc (Bld) 10.6 g/dL Low 11.2-15.7 [facility] Comment on above: Performed By: #### U RIN2 #### [facility] [address] [place] [address] MCH Entitic mass (RBC) 30.9 pg Normal 25.6-32.2 [facility] Comment on above: Performed By: #### U RIN2 #### [place] [address] MCHC mass conc (RBC) 31.7 % Normal 31.6-34.8 [facility] Comment on above: Performed By: #### U RIN2 #### [place] [address] MCV Entitic volume (RBC) 97.4 fL High 79.4-94.8 [facility] Comment on above: Performed By: #### U RIN2 #### [facility] [address] [place] [address] Platelet mean volume Entitic volume (Bld) 9.8 fL Normal 9.4-12.3 [facility] Comment on above: Performed By: #### U RIN2 #### [facility] [address] [place] [address] Platelets #/vol (Bld) 429 thou/cmm High 182-369 [facility] Comment on above: Performed By: #### U RIN2 #### [facility] [address] [place] [address] RBC #/vol (Bld) 3.43 mil/cmm Low 3.93-5.22 [facility] Comment on above: Performed By: #### U RIN2 #### [facility] [address] [place] [address] RDW SD 43.6 fl Normal 36.4-46.3 [facility] Comment on above: Performed By: #### U RIN2 #### [facility] [address] [place] [address] WBC #/vol (Bld) 14.02 thou/cmm High 3.98-10.04 [facility] Comment on above: Performed By: #### U RIN2 #### [facility] [address] [place] [id number] PLAN OF CAREon 03-12-2018 PLAN OF CARE HNO ID: [id number] Author: Savana Souza Service: Endocrinology Author Type: [...] DM regimen Will follow Savana Souza MD [facility] PROGRESSon 03-12-2018 Protein mass conc HNO ID: [id number] Author: Polly Parks Service: Hospital Medicine Author [...] pmhx of HTN, DM, developmental [facility], [facility] presented on [facility]01 for a fall at [...] and patient's developmental delay. Patient has a employment evaluator/case manager who has helped with her medications in [...] diet - Endocrinology following -awaiting acceptance at [facility]- for help with insulin regimen Patient has displayed a lack of ability to administer her insulin regime without assistance. After discussions with the [facility] there are not the support or resources to assist at [facility]. There is concern that without help administering [...] 2018 TIME: 8:28 AM PAGER/CONTACT #: [phone] Normal [facility] ALLIED HEALTHon 03-11-2018 ALLIED HEALTH HNO ID: [id number] Author: Analilia Tineo (Chaplain), Bossman Service: Spiritual Care Author Type: Type: Allied Health Filed: 03/11/2018 12:22 PM [...] Pt and she thanked me for coming. Extension Educator Signature: Chaplain Candy Elevator Erector Helper To contact the Spiritual Care Department: Please call [phone] or Page the On-Call Extension Educator at pager [phone] Thank you for the opportunity to be of service. This is an electronically created document. IF PRINTED, PLEASE DO NOT REMOVE FROM THE CHART OR MODIFY PRINTED COPY. Normal [facility] Basic Panelon 03-11-2018 Creatinine mass conc 1.01 mg/dL High 0.51-0.95 [facility] Comment on above: Performed By: #### U RIN2 #### [place] [address] Anion gap molar conc 13 mmol/L Normal 8-16 [facility] Comment on above: Performed By: #### U RIN2 #### [place] [address] CO2 molar conc 24 mmol/L Normal 21-32 [facility] Comment on above: Performed By: #### U RIN2 #### [place] [address] Glucose mass conc 91 mg/dL Normal 70-99 [facility] Comment on above: Performed By: #### U RIN2 #### [place] [address] Urea nitrogen mass conc 20 mg/dL High 7-18 [facility] Comment on above: Performed By: #### U RIN2 #### [facility] [address] [place] [address] Calcium mass conc 8.5 mg/dL Normal 8.5-10.1 [facility] Comment on above: Performed By: #### U RIN2 #### [facility] [address] [place] [address] Chloride molar conc 107 mmol/L Normal 98-107 [facility] Comment on above: Performed By: #### U RIN2 #### [facility] [address] [place] [address] Potassium molar conc 3.9 mmol/L Normal 3.5-5.1 [facility] Comment on above: Performed By: #### U RIN2 #### [facility] [address] [place] [address] Sodium molar conc 140 mmol/L Normal 136-145 [facility] Comment on above: Performed By: #### U RIN2 #### [facility] [address] [place] [address] CASE MANAGEMon 03-11-2018 CASE MANAGEM HNO ID: [id number] Author: Radha (Rn) ESTHER Thomas Service: Care Management Author Type: Registered Nurse Type: Care Mgt Progress Note Filed: 03/11/2018 1:41 PM Note Text: CARE MANAGEMENT PROGRESS NOTE SERVICE DATE: 03/11/2018 SERVICE TIME: 1:40 PM LOS: 10 days Needs Prior to Discharge: Insurance Authorization;Discharg e Transportation Chart reviewed. Awaiting auth for d/c to [place]. Will continue to follow. Corbytina CARLA Clifton Murray has stated she can transport at d/c. SIGNATURE: Radha Thomas RN PATIENT NAME: Cinthya Castillo DATE: March 11, 2018 TIME: 1:40 PM PAGER/CONTACT #: [phone] Normal [facility] Hemogram/Diffon 03-11-2018 Abs Immature Grans 0.53 thou/cmm High 0.00-0.05 [facility] Comment on above: Performed By: #### U RIN2 #### [facility] [address] [place] [address] Abs. Baso 0.07 thou/cmm Normal 0.01-0.08 [facility] Comment on above: Result Comment: Smea r scanned; tech agrees with automated differential Performed By: #### U RIN2 #### [facility] [address] [place] [address] Abs. [place]on 1.29 thou/cmm High 0.27-0.70 [facility] Comment on above: Performed By: #### U RIN2 #### [facility] [address] [place] [address] Abs. Neut (ANC) 10.31 thou/cmm High 1.56-6.13 [facility] Comment on above: Performed By: #### U RIN2 #### [facility] [address] [place] [address] Basophils/100 WBC (Bld) 0.5 % Normal [facility] Comment on above: Performed By: #### U RIN2 #### [facility] [address] [place] [address] Eosinophils #/vol (Bld) 0.50 thou/cmm High 0.00-0.31 [facility] Comment on above: Performed By: #### U RIN2 #### [facility] [address] [place], [place] [address] Eosinophils/100 WBC (Bld) 3.4 % Normal [facility] Comment on above: Performed By: #### U RIN2 #### [place] [address] Immature Grans 3.60 % Normal [facility] Comment on above: Performed By: #### U RIN2 #### [facility] [address] [place], [place] [address] Lymphocytes #/vol (Bld) 2.09 thou/cmm Normal 1.18-3.74 [facility] Comment on above: Performed By: #### U RIN2 #### [address] [address] Lymphocytes/100 WBC (Bld) 14.1 % Normal [facility] Comment on above: Performed By: #### U RIN2 #### [facility] [address] [place] [address] Monocytes/100 WBC (Bld) 8.7 % Normal [facility] Comment on above: Performed By: #### U RIN2 #### [facility] [address] [place] [address] Seg Neutrophil 69.7 % Normal [facility] Comment on above: Performed By: #### U RIN2 #### [facility] [address] [place] [address] Erythrocyte distribution width Ratio (RBC) 12.2 % Normal 11.7-14.4 [facility] Comment on above: Performed By: #### U RIN2 #### [facility] [address] [place] [address] Hematocrit Volume Fraction (Bld) 32.4 % Low 34.1-44.9 [facility] Comment on above: Performed By: #### U RIN2 #### [facility] [address] [place] [address] Hemoglobin mass conc (Bld) 10.3 g/dL Low 11.2-15.7 [facility] Comment on above: Performed By: #### U RIN2 #### [facility] [address] [place] [address] MCH Entitic mass (RBC) 30.7 pg Normal 25.6-32.2 [facility] Comment on above: Performed By: #### U RIN2 #### [facility] [address] [place] [address] MCHC mass conc (RBC) 31.8 % Normal 31.6-34.8 [facility] Comment on above: Performed By: #### U RIN2 #### [facility] [address] [place] [address] MCV Entitic volume (RBC) 96.4 fL High 79.4-94.8 [facility] Comment on above: Performed By: #### U RIN2 #### [facility] [address] [place] [address] Platelet mean volume Entitic volume (Bld) 10.0 fL Normal 9.4-12.3 [facility] Comment on above: Performed By: #### U RIN2 #### [facility] [address] [place] [address] Platelets #/vol (Bld) 418 thou/cmm High 182-369 [facility] Comment on above: Performed By: #### U RIN2 #### [facility] [address] [place] [address] RBC #/vol (Bld) 3.36 mil/cmm Low 3.93-5.22 [facility] Comment on above: Performed By: #### U RIN2 #### [facility] [address] [place] [address] RDW SD 42.3 fl Normal 36.4-46.3 [facility] Comment on above: Performed By: #### U RIN2 #### [facility] [address] [place] [address] WBC #/vol (Bld) 14.79 thou/cmm High 3.98-10.04 [facility] Comment on above: Performed By: #### U RIN2 #### [facility] [address] [place] [address] PLAN OF CAREon 03-11-2018 PLAN OF CARE HNO ID: [id number] Author: Savana Souza Service: Endocrinology Author Type: [...] 180 (H) 115 (H) Blood sugar on [facility] today 91. Insulin was increased yesterday. Will monitor blood sugars today and adjust as needed Savana Souza MD [facility] PROGRESSon 03-11-2018 Protein mass conc HNO ID: [id number] Author: Lynsey (Rn) ESTHER Allen Service: Nursing Author Type: Registered Nurse Type: Progress Notes Filed: 03/11/2018 7:17 PM Note Text: Sepsis advisory noted sea ANDREWS [facility] Protein mass conc HNO ID: [id number] Author: Jackson Williamson DO Service: Hospital Medicine [...] and patient's developmental delay. Patient has a employment evaluator/case manager who has helped with her medications in [...] regime without assistance. After discussions with the [facility] CM there are not the support or resources to assist at [facility]. There is concern that without help administering [...] 1545 -- 03/01/18 1715 pneumatic compression stockings ([place], [place]) VTE Prophylaxis: VTE prophylaxis appropriate Plan of care discussed with: Attending and Patient SIGNATURE: Jackson Williamson DO PATIENT NAME: Cinthya Castillo DATE: March 11, 2018 TIME: 2:36 PM PAGER/CONTACT #: [phone] Normal [facility] Basic Panelon 03-10-2018 Creatinine mass conc 1.22 mg/dL High 0.51-0.95 [facility] Comment on above: Performed By: #### U RIN2 #### [address] [address] Urea nitrogen mass conc 22 mg/dL High 7-18 [facility] Comment on above: Performed By: #### U RIN2 #### [facility] [address] [place], [place] [address] Anion gap molar conc 13 mmol/L Normal 8-16 [facility] Comment on above: Performed By: #### U RIN2 #### [facility] [address] [place], [place] [address] Calcium mass conc 8.3 mg/dL Low 8.5-10.1 [facility] Comment on above: Performed By: #### U RIN2 #### [facility] [address] [place] [address] CO2 molar conc 28 mmol/L Normal 21-32 [facility] Comment on above: Performed By: #### U RIN2 #### [facility] [address] [place], [place] [address] Glucose mass conc 163 mg/dL High 70-99 [facility] Comment on above: Performed By: #### U RIN2 #### [facility] [address] [place] [address] Chloride molar conc 105 mmol/L Normal 98-107 [facility] Comment on above: Performed By: #### U RIN2 #### [facility] [address] [place] [address] Potassium molar conc 3.8 mmol/L Normal 3.5-5.1 [facility] Comment on above: Performed By: #### U RIN2 #### [facility] [address] [place] [address] Sodium molar conc 142 mmol/L Normal 136-145 [facility] Comment on above: Performed By: #### U RIN2 #### [facility] [address] [place] [address] CASE MANAGEMon 03-10-2018 CASE MANAGEM HNO ID: [id number] Author: Radha (Rn) ESTHER Thomas Service: Care Management Author Type: Registered Nurse Type: Care Mgt Progress Note Filed: 03/10/2018 9:03 AM Note Text: CARE MANAGEMENT PROGRESS NOTE SERVICE DATE: 03/10/2018 SERVICE TIME: 9:02 AM LOS: 9 days Needs Prior to Discharge: Insurance Authorization;[facility]. Authorization started. Await auth for d/c. SIGNATURE: Radha Thomas RN PATIENT NAME: Cinthya Castillo DATE: March 10, 2018 TIME: 9:02 AM PAGER/CONTACT #: [phone] Normal [facility] CONSULT PROGon 03-10-2018 Protein mass conc HNO ID: [id number] Author: Savana Souza Service: Endocrinology Author Type: [...] Metformin 1,000 mg BID Savana Souza MD [facility] PROGRESSon 03-10-2018 Protein mass conc HNO ID: [id number] Author: Jackson Williamson DO Service: Hospital Medicine Author Type: Resident Type: Progress Notes Filed: 03/10/2018 2:52 PM Note Text: Attestation signed by Walter Gross at 03/10/2018 6:14 PM Continues to feel better. Less buttock pain today. Sitting in chair. States she is ready to be sent to [facility]. NAD. Afebrile. VSS. Lungs: Clear CV: RRR [...] and patient's developmental delay. Patient has a employment evaluator/case manager who has helped with her medications in [...] regime without assistance. After discussions with the [facility] there are not the support or resources to assist at [place]. There is concern that without help administering [...] 1545 -- 03/01/18 1715 pneumatic compression stockings ([place]) VTE Prophylaxis: VTE prophylaxis appropriate Plan of care discussed with: Attending and Patient SIGNATURE: Jackson Williamson DO PATIENT NAME: Cinthya Castillo DATE: March 10, 2018 TIME: 2:37 PM PAGER/CONTACT #: [phone] Normal [facility] Basic Panelon 03-09-2018 Creatinine mass conc 1.02 mg/dL High 0.51-0.95 [facility] Comment on above: Performed By: #### U RIN2 #### [facility] [address] [place], [place] [address] Anion gap molar conc 14 mmol/L Normal 8-16 [facility] Comment on above: Performed By: #### U RIN2 #### [facility] [address] [place], [place] [address] Calcium mass conc 8.7 mg/dL Normal 8.5-10.1 [facility] Comment on above: Performed By: #### U RIN2 #### [facility] [address] [place] [address] CO2 molar conc 27 mmol/L Normal 21-32 [facility] Comment on above: Performed By: #### U RIN2 #### [facility] [address] [place] [address] Glucose mass conc 132 mg/dL High 70-99 [facility] Comment on above: Performed By: #### U RIN2 #### [facility] [address] [place] [address] Urea nitrogen mass conc 19 mg/dL High 7-18 [facility] Comment on above: Performed By: #### U RIN2 #### [facility] [address] [place] [address] Chloride molar conc 105 mmol/L Normal 98-107 [facility] Comment on above: Performed By: #### U RIN2 #### [facility] [address] [place] [address] Potassium molar conc 3.8 mmol/L Normal 3.5-5.1 [facility] Comment on above: Performed By: #### U RIN2 #### [facility] [address] [place] [address] Sodium molar conc 142 mmol/L Normal 136-145 [facility] Comment on above: Performed By: #### U RIN2 #### [facility] [address] [place] [address] CASE MANAGEMon 03-09-2018 CASE MANAGEM HNO ID: [id number] Author: Radha PattenRn) ESTHER Thomas Service: Care Management Author Type: Registered Nurse Type: Care Mgt Progress Note Filed: 03/09/2018 4:14 PM Note Text: CARE MANAGEMENT PROGRESS NOTE SERVICE DATE: 03/09/2018 SERVICE TIME: 4:08 PM LOS: 8 days FREEDOM OF CHOICE GIVEN: Yes discussed The patient and/or family has been given the Provider List: Yes Provider List: Detention Facility Preference: [facility] Needs Prior to [...] doses of insulin. Spoke to home care liaison Joyce Edouard who confirmed they provide meals, laundry and assist with telling residents when to take meds but cannot administer. Spoke to patient at bedside regarding possible SNF d/c, discussed FOC and patient chose [facility]. Spoke to Karen Morales, Elisha CM regarding patient likely need for SNF d/c for med management. Will place referral and continue to follow. SIGNATURE: Radha Thomas RN PATIENT NAME: Cinthya Castillo DATE: March 09, 2018 TIME: 4:08 PM PAGER/CONTACT #: [phone] [facility] CASE MANAGEM HNO ID: [id number] Author: Radha (Rn) ESTHER Thomas Service: Care Management Author Type: Registered Nurse Type: Care Mgt Progress Note Filed: 03/09/2018 1:41 PM Note Text: CARE MANAGEMENT PROGRESS NOTE SERVICE DATE: 03/09/2018 SERVICE TIME: 1:40 PM LOS: 8 days FREEDOM OF CHOICE GIVEN: Yes discussed The patient and/or family has been given the Provider List: Yes Provider List: Detention Facility Preference: [facility] Spoke to patient at bedside regarding possibility of SNF for med management. Patient agreeable. FOC provided, choice is [place]. Will await acceptance. SIGNATURE: Radha Thomas RN PATIENT NAME: Cinthya Castillo DATE: March 09, 2018 TIME: 1:40 PM PAGER/CONTACT #: [phone] [facility] Hemogram/Diffon 03-09-2018 Abs Immature Grans 0.54 thou/cmm High 0.00-0.05 [facility] Comment on above: Performed By: #### U RIN2 #### [facility] [address] [place] [address] Abs. Baso 0.08 thou/cmm Normal 0.01-0.08 [facility] Comment on above: Result Comment: Smea r scanned; tech agrees with automated differential Performed By: #### U RIN2 #### [facility] [address] [place] [address] Abs. [place]on 1.41 thou/cmm High 0.27-0.70 [facility] Comment on above: Performed By: #### U RIN2 #### [place] [address] Abs. Neut (ANC) 9.86 thou/cmm High 1.56-6.13 [facility] Comment on above: Performed By: #### U RIN2 #### [place] [address] Basophils/100 WBC (Bld) 0.6 % Normal [facility] Comment on above: Performed By: #### U RIN2 #### [place] [address] Eosinophils #/vol (Bld) 0.37 thou/cmm High 0.00-0.31 [facility] Comment on above: Performed By: #### U RIN2 #### [place] [address] Eosinophils/100 WBC (Bld) 2.7 % Normal [facility] Comment on above: Performed By: #### U RIN2 #### [place] [address] Immature Grans 3.90 % Normal [facility] Comment on above: Performed By: #### U RIN2 #### [place] [address] Lymphocytes #/vol (Bld) 1.47 thou/cmm Normal 1.18-3.74 [facility] Comment on above: Performed By: #### U RIN2 #### [facility] [address] [place], [place] [address] Lymphocytes/100 WBC (Bld) 10.7 % Normal [facility] Comment on above: Performed By: #### U RIN2 #### [facility] [address] [place] [address] Monocytes/100 WBC (Bld) 10.3 % Normal [facility] Comment on above: Performed By: #### U RIN2 #### [facility] [address] [place] [address] Seg Neutrophil 71.8 % Normal [facility] Comment on above: Performed By: #### U RIN2 #### [facility] [address] [place] [address] Erythrocyte distribution width Ratio (RBC) 12.3 % Normal 11.7-14.4 [facility] Comment on above: Performed By: #### U RIN2 #### [facility] [address] [place] [address] Hematocrit Volume Fraction (Bld) 33.0 % Low 34.1-44.9 [facility] Comment on above: Performed By: #### U RIN2 #### [facility] [address] [place] [address] Hemoglobin mass conc (Bld) 10.7 g/dL Low 11.2-15.7 [facility] Comment on above: Performed By: #### U RIN2 #### [facility] [address] [place] [address] MCH Entitic mass (RBC) 30.9 pg Normal 25.6-32.2 [facility] Comment on above: Performed By: #### U RIN2 #### [facility] [address] [place] [address] MCHC mass conc (RBC) 32.4 % Normal 31.6-34.8 [facility] Comment on above: Performed By: #### U RIN2 #### [facility] [address] [place] [address] MCV Entitic volume (RBC) 95.4 fL High 79.4-94.8 [facility] Comment on above: Performed By: #### U RIN2 #### [facility] [address] [place] [address] Platelet mean volume Entitic volume (Bld) 9.8 fL Normal 9.4-12.3 [facility] Comment on above: Performed By: #### U RIN2 #### [facility] [address] [place], [place] [address] Platelets #/vol (Bld) 355 thou/cmm Normal 182-369 [facility] Comment on above: Performed By: #### U RIN2 #### [facility] [address] [place] [address] RBC #/vol (Bld) 3.46 mil/cmm Low 3.93-5.22 [facility] Comment on above: Performed By: #### U RIN2 #### [facility] [address] [place] [address] RDW SD 42.5 fl Normal 36.4-46.3 [facility] Comment on above: Performed By: #### U RIN2 #### [facility] [address] [place] [address] WBC #/vol (Bld) 13.73 thou/cmm High 3.98-10.04 [facility] Comment on above: Performed By: #### U RIN2 #### [facility] [address] [place] [address] PLAN OF CAREon 03-09-2018 PLAN OF CARE HNO ID: [id number] Author: Savana Souza Service: Endocrinology Author Type: [...] ISS AC/HS Will follow Savana Souza MD [facility] PROGRESSon 03-09-2018 Protein mass conc HNO ID: [id number] Author: Jackson Williamson DO Service: Hospital Medicine [...] as documented in the resident's note. Plan: retail assistant store manager input noted. Patient wiling to go to [facility] for short term. Walter Gross MD SERVICE [...] and patient's developmental delay. Patient has a employment evaluator/case manager who has helped with her medications in [...] (Principal)Diabetes mellitus type 2 with ketoacidosis, uncontrolled ([facility]) 03/01/2018 - Present Current Assessment AND Plan [...] 1545 -- 03/01/18 1715 pneumatic compression stockings ([place]) VTE Prophylaxis: VTE prophylaxis appropriate Plan of care discussed with: Attending and Patient SIGNATURE: Jackson Williamson DO PATIENT NAME: Cinthya Castillo DATE: March 09, 2018 TIME: 4:23 PM PAGER/CONTACT #: [phone] [facility] ALLIED HEALTHon 03-08-2018 ALLIED HEALTH HNO ID: [id number] Author: Cinthya PattenRn) ESTHER Maloney Service: Diabetes Education Author Type: [...] the evening-instructed to take with meal. The Fire Boat Engineer ,Clifton Murray, was left a message [...] Interested. Barriers to learning: None Family support: employment evaluator/case manager called Education Type: Individual instruction Written instruction - handouts Verbal instruction Response to education: States/Identifies. Education provided to: Patient. Teachback method used. Time Spent (Minutes): 15 SIGNATURE: Cinthya Maloney RN PATIENT NAME: Cinthya Castillo DATE: March 08, 2018 TIME: 2:53 PM PAGER: [phone] Normal [facility] Basic Panelon 03-08-2018 Creatinine mass conc 1.15 mg/dL High 0.51-0.95 [facility] Comment on above: Performed By: #### U RIN2 #### [facility] [address] [place] [address] Anion gap molar conc 12 mmol/L Normal 8-16 [facility] Comment on above: Performed By: #### U RIN2 #### [facility] [address] [place] [address] CO2 molar conc 25 mmol/L Normal 21-32 [facility] Comment on above: Performed By: #### U RIN2 #### [facility] [address] [place] [address] Glucose mass conc 175 mg/dL High 70-99 [facility] Comment on above: Performed By: #### U RIN2 #### [facility] [address] [place], [place] [address] Urea nitrogen mass conc 21 mg/dL High 7-18 [facility] Comment on above: Performed By: #### U RIN2 #### [facility] [address] [place] [address] Calcium mass conc 8.8 mg/dL Normal 8.5-10.1 [facility] Comment on above: Performed By: #### U RIN2 #### [facility] [address] [place] [address] Chloride molar conc 107 mmol/L Normal 98-107 [facility] Comment on above: Performed By: #### U RIN2 #### [facility] [address] [place] [address] Potassium molar conc 3.8 mmol/L Normal 3.5-5.1 [facility] Comment on above: Performed By: #### U RIN2 #### [facility] [address] [place] [address] Sodium molar conc 140 mmol/L Normal 136-145 [facility] Comment on above: Performed By: #### U RIN2 #### [facility] [address] [place] [address] CASE MANAGEMon 03-08-2018 CASE MANAGEM HNO ID: [id number] Author: Vianey (Esther) ESTHER Arnold Service: Care Management Author Type: [...] patient's advocate Stefanie Garcia RN Care Manger ([phone]). Await call back. Will continue to follow clinical course for further DC planning needs. SIGNATURE: Vianey Arnold RN PATIENT NAME: Cinthya Castillo DATE: March 08, 2018 TIME: 2:33 PM PAGER/CONTACT #: [phone] [facility] CONSULT PROGon 03-08-2018 Protein mass conc HNO ID: [id number] Author: Savana Souza Service: Endocrinology Author Type: [...] Metformin 1,000 mg BID Savana Souza MD [facility] PROGRESSon 03-08-2018 Protein mass conc HNO ID: [id number] Author: Jackson Williamson DO Service: Hospital Medicine [...] and patient's developmental delay. Patient has a employment evaluator/case manager who has helped with her medications in [...] 1545 -- 03/01/18 1715 pneumatic compression stockings (ny,oh) VTE Prophylaxis: VTE prophylaxis appropriate Plan of care discussed with: Attending and Patient SIGNATURE: Jackson Williamson DO PATIENT NAME: Cinthya Castillo DATE: March 08, 2018 TIME: 3:28 PM PAGER/CONTACT #: [phone] Normal [facility] THERAPY NTon 03-08-2018 THERAPY NT HNO ID: [id number] Author: Chon (Pt) Serge Service: Physical Therapy Author Type: Physical Therapist Type: Therapy (PT/OT/Speech/Resp) Filed: 03/08/2018 2:47 PM Note Text: Physical Therapy Treatment SERVICE DATE: 03/08/2018 SERVICE TIME: 1357 to 1420 ROOM: [place] [address] Recommended Discharge Disposition: Outpatient Physical Therapy Recommended [...] Diagnosis: Reduced mobility-other Interventions Provided: Neuromuscular Reeducation (65963);Therapeutic Exercise (76117) Therapeutic Exercise (85867) Treatment Minutes: 12 1 unit Skilled Intervention(s): [...] in case you need it." Neuromuscular Re-Education (78729) Treatment Minutes: 11 1 unit Skilled Intervention(s): [...] noted. 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 Home Environment Patient Lives With: [facility]) Assistance Available: 24 Hour Entry To Home: [...] [facility] THERAPY NT HNO ID: [id number] Author: Portia Rowan/Olman Syed Service: Occupational Therapy Author Type: Occupational Therapist Type: Therapy (PT/OT/Speech/Resp) Filed: 03/08/2018 12:27 PM Note Text: Occupational Therapy Treatment SERVICE DATE: 03/08/2018 SERVICE TIME: 1205 to 1217 ROOM: [place] [address] Recommended Discharge Disposition: Home Recommended Discharge Disposition Comments: Return to [facility] with continued assist for IADLs Anticipated Discharge [...] of daily living (ADL) Interventions Provided: Self Group Home Management (85907) Self Group Home Management (86893) Treatment Minutes: 25 1 unit Skilled Intervention(s): [...] Microscopic hematuria 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 Relevant Past Medical History: DM, Developmental delay Patient Report: Pt just coming out of bathroom upon arrival Id like to try to use one of those caps to wash my hair now" Pain: no c/o Home Environment Patient Lives With: [facility] ([facility]) Assistance Available: 24 Hour Entry To Home: [...] Creatinine mass conc 1.01 mg/dL High 0.51-0.95 [facility] Comment on above: Performed By: #### U RIN2 #### [facility] [address] [place] [address] Anion gap molar conc 9 mmol/L Normal 8-16 [facility] Comment on above: Performed By: #### U RIN2 #### [place] [address] CO2 molar conc 27 mmol/L Normal 21- [facility] Comment on above: Performed By: #### U RIN2 #### [facility] [address] [place] [address] Urea nitrogen mass conc 16 mg/dL Normal 7-18 [facility] Comment on above: Performed By: #### U RIN2 #### [facility] [address] [place] [address] Calcium mass conc 8.7 mg/dL Normal 8.5-10.1 [facility] Comment on above: Performed By: #### U RIN2 #### [facility] [address] [place] [address] Glucose mass conc 170 mg/dL High 70-99 [facility] Comment on above: Performed By: #### U RIN2 #### [facility] [address] [place] [address] Chloride molar conc 106 mmol/L Normal 98-107 [facility] Comment on above: Performed By: #### U RIN2 #### [facility] [address] [place] [address] Potassium molar conc 4.0 mmol/L Normal 3.5-5.1 [facility] Comment on above: Performed By: #### U RIN2 #### [facility] [address] [place] [address] Sodium molar conc 138 mmol/L Normal 136-145 [facility] Comment on above: Performed By: #### U RIN2 #### [place] [address] CASE MANAGEMon 03-07-2018 CASE MANAGEM HNO ID: [id number] Author: Radha (Rn) ESTHER Thomas Service: Care Management Author Type: Registered Nurse Type: Care Mgt Progress Note Filed: 03/07/2018 11:58 AM Note Text: CARE MANAGEMENT PROGRESS NOTE SERVICE DATE: 03/07/2018 SERVICE TIME: 11:56 AM LOS: 6 days Needs Prior to Discharge: To Be Determined Placed telephone call to Clifton Murray at [phone] and left VM for a call back regarding med administration and outpatient PT order. Will continue to follow. SIGNATURE: Radha Thomas RN PATIENT NAME: Cinthya Castillo DATE: March 07, 2018 TIME: 11:56 AM PAGER/CONTACT #: [phone] Normal [facility] CONSULT PROGon 03-07-2018 Protein mass conc HNO ID: [id number] Author: Savana Souza Service: Endocrinology Author Type: [...] decrease to #1 HS Savana Souza MD [facility] NURSING PROGon 03-07-2018 Protein mass conc HNO ID: [id number] Author: Diomedes (Rn) ESTHER Givens Service: Nursing Author Type: Registered Nurse Type: Nursing Progress Note Filed: 03/07/2018 2:34 PM Note Text: Nursing Progress Note Patient Name: Cinthya Castillo Patient Location: [id number]/[facility]7100-7 10* __ Daily Note: I spoke with Cliftonkina Murray, pts behavioral health care coordinator at [facility]. She would like to be here when the pt is given diabetic education if we can call her at [phone] to set up an appointment when the [...] note was completed by: Diomedes Givens RN [facility] PROGRESSon 03-07-2018 Protein mass conc HNO ID: [id number] Author: Jackson Williamson DO Service: Hospital Medicine Author Type: Resident Type: Progress Notes Filed: 03/07/2018 4:25 PM Note Text: Attestation signed by Walter Gross at 03/07/2018 10:22 PM History reviewed, patient examined. 57 year old white female, living in [facility], admitted with DKA, s/p fall. States she hadn't used her insulin in a while because she didn't know what to do with her new insulin pens and so she kept it in the refrigerator but did not use. Feeling better. Spoke with her employment evaluator/case manager who was visiting in the room. Currently [...] and patient's developmental delay. Patient has a employment evaluator/case manager who has helped with her medications in [...] (Principal)Diabetes mellitus type 2 with ketoacidosis, uncontrolled ([facility]) 03/01/2018 - Present Current Assessment AND Plan [...] 1545 -- 03/01/18 1715 pneumatic compression stockings (ny,oh) VTE Prophylaxis: VTE prophylaxis appropriate Plan of care discussed with: Attending and Patient SIGNATURE: Jackson Williamson DO PATIENT NAME: Cinthya Castillo DATE: March 07, 2018 TIME: 4:25 PM PAGER/CONTACT #: [phone] Normal [facility] Basic Panelon 03-06-2018 Creatinine mass conc 1.09 mg/dL High 0.51-0.95 [facility] Comment on above: Performed By: #### U RIN2 #### [facility] [address] [place], [place] [address] Anion gap molar conc 13 mmol/L Normal 8-16 [facility] Comment on above: Performed By: #### U RIN2 #### [facility] [address] [place] [address] CO2 molar conc 26 mmol/L Normal 21-32 [facility] Comment on above: Performed By: #### U RIN2 #### [facility] [address] [place] [address] Glucose mass conc 206 mg/dL High 70-99 [facility] Comment on above: Performed By: #### U RIN2 #### [facility] [address] [place] [address] Urea nitrogen mass conc 16 mg/dL Normal 7-18 [facility] Comment on above: Performed By: #### U RIN2 #### [facility] [address] [place] [address] Calcium mass conc 8.6 mg/dL Normal 8.5-10.1 [facility] Comment on above: Performed By: #### U RIN2 #### [facility] [address] [place] [address] Chloride molar conc 103 mmol/L Normal 98-107 [facility] Comment on above: Performed By: #### U RIN2 #### [facility] [address] [place] [address] Potassium molar conc 3.7 mmol/L Normal 3.5-5.1 [facility] Comment on above: Performed By: #### U RIN2 #### [facility] [address] [place] [address] Sodium molar conc 138 mmol/L Normal 136-145 [facility] Comment on above: Performed By: #### U RIN2 #### [facility] [address] [place] [address] CONSULTon 03-06-2018 CONSULT HNO ID: [id number] Author: Shailesh Solano Service: Endocrinology Author Type: [...] know how much to take". Some social worker clinical issues. Has services that come in and [...] or anxiety. Allergic / Immunologic: No known adjunct faculty for medical terminology or short term issues. Objective PHYSICAL EXAM: [...] 06, 2018 TIME: 8:50 AM PAGER/CONTACT #: [phone] Normal [facility] Hemogramon 03-06-2018 Erythrocyte distribution width Ratio (RBC) 12.2 % Normal 11.7-14.4 [facility] Comment on above: Performed By: #### U RIN2 #### [place] [address] Hematocrit Volume Fraction (Bld) 33.2 % Low 34.1-44.9 [facility] Comment on above: Performed By: #### U RIN2 #### [place] [address] Hemoglobin mass conc (Bld) 11.0 g/dL Low 11.2-15.7 [facility] Comment on above: Performed By: #### U RIN2 #### [place] [address] MCH Entitic mass (RBC) 31.3 pg Normal 25.6-32.2 [facility] Comment on above: Performed By: #### U RIN2 #### [facility] [address] [place] [address] MCHC mass conc (RBC) 33.1 % Normal 31.6-34.8 [facility] Comment on above: Performed By: #### U RIN2 #### [place] [address] MCV Entitic volume (RBC) 94.3 fL Normal 79.4-94.8 [facility] Comment on above: Performed By: #### U RIN2 #### [facility] [address] [place] [address] Platelet mean volume Entitic volume (Bld) 10.9 fL Normal 9.4-12.3 [facility] Comment on above: Performed By: #### U RIN2 #### [facility] [address] [place] [address] Platelets #/vol (Bld) 294 thou/cmm Normal 182-369 [facility] Comment on above: Performed By: #### U RIN2 #### [facility] [address] [place] [address] RBC #/vol (Bld) 3.52 mil/cmm Low 3.93-5.22 [facility] Comment on above: Performed By: #### U RIN2 #### [facility] [address] [place] [address] RDW SD 41.9 fl Normal 36.4-46.3 [facility] Comment on above: Performed By: #### U RIN2 #### [facility] [address] [place] [address] WBC #/vol (Bld) 13.39 thou/cmm High 3.98-10.04 [facility] Comment on above: Performed By: #### U RIN2 #### [facility] [address] [place] [address] PLAN OF CAREon 03-06-2018 PLAN OF CARE HNO ID: [id number] Author: Raul Gamino Service: Hospital Medicine Author [...] Gay March 06, 2018 10:23 AM Pager [phone] Normal [facility] PROGRESSon 03-06-2018 Protein mass conc HNO ID: [id number] Author: Anupam Willis Service: Hospital Medicine Author Type: Physician Type: Progress Notes Filed: 03/07/2018 10:05 PM Note Text: SERVICE DATE: 03/06/2018 SERVICE TIME: 9:07 AM HOSPITAL MEDICINE PROGRESS NOTE NIGHT AND WEEKEND COVERAGE: From 7am - 7pm, please call [phone] After 7pm, please call cross cover pager #[phone] HPI Patient is a 57 yo F [...] and patient's developmental delay. Patient has a employment evaluator/case manager who has helped with her medications in [...] H PRN Zeke Montague 650 mg at 03/05/181716 amLODIPine 10 mg tab(s) (NORVASC) 10 mg [...] H (Res) Ababneh 500 mg at 03/05/18 171 montelukast 10 mg tab(s) (SINGULAIR) 10 mg ORAL AT BEDTIME Ahmad H (Res) Ababneh 10 mg at 03/05/182057 white petrolatum-mineral oil cream (EUCERIN) TOPICAL DAILY Magalys N (Shotgun Shell Assembly Machine Operator) [place] Diagnostic tests reviewed: Most recent [...] interval not displayed. Recent Labs 03/06/18 0715 03/06/18 0356 03/05/18 2055 03/05/18 1703 03/05/18 0554 03/04/18 [...] 1545 -- 03/01/18 1715 pneumatic compression stockings (ny,oh) VTE Prophylaxis: VTE prophylaxis appropriate Plan of care discussed with: Attending SIGNATURE: Annmarie Oliva MD PATIENT NAME: Cinthya Castillo DATE: March 06, 2018 TIME: 9:07 AM PAGER/CONTACT #: [phone] Evaluated independently Agreed with the above notes by Dr. Oliva which reflects my input with the following additions Complains of pain over the right buttock On exam she has large indurated area consistent with cellulitis Will start on empirical Vanc.and observe Lives in a [facility] May not able to have 4 insulin shots a day. Endo was called and placed on 70/30 insulin 2 times a day Discussed with patient regarding condition and plan Plan her discharge Attestation signed by Anupam Willis MD [facility] Attending March 06, 2018 9:57 PM Normal [facility] Basic Panelon 03-05-2018 Creatinine mass conc 1.11 mg/dL High 0.51-0.95 [facility] Comment on above: Performed By: #### E DGLG #### [facility] [address] [place] [address] Anion gap molar conc 14 mmol/L Normal 8-16 [facility] Comment on above: Performed By: #### E DGLG #### [facility] [address] [place] [address] Calcium mass conc 8.4 mg/dL Low 8.5-10.1 [facility] Comment on above: Performed By: #### E DGLG #### [facility] [address] [place] [address] CO2 molar conc 25 mmol/L Normal 21-32 [facility] Comment on above: Performed By: #### E DGLG #### [facility] [address] [place], [place] [address] Urea nitrogen mass conc 21 mg/dL High 7-18 [facility] Comment on above: Performed By: #### E DGLG #### [facility] [address] [place], [place] [address] Glucose mass conc 291 mg/dL High 70-99 [facility] Comment on above: Performed By: #### E DGLG #### [facility] [address] [place], [place] [address] Chloride molar conc 105 mmol/L Normal 98-107 [facility] Comment on above: Performed By: #### E DGLG #### [facility] [address] [place], [place] [address] Potassium molar conc 4.0 mmol/L Normal 3.5-5.1 [facility] Comment on above: Performed By: #### E DGLG #### [facility] [address] [place], [place] [address] Sodium molar conc 140 mmol/L Normal 136-145 [facility] Comment on above: Performed By: #### E DGLG #### [facility] [address] [place], [place] [address] PROGRESSon 03-05-2018 Protein mass conc HNO ID: [id number] Author: Anupam Willis Service: Hospital Medicine Author [...] and patient's developmental delay. Patient has a employment evaluator/case manager who has helped with her medications in [...] oil cream (EUCERIN) TOPICAL DAILY Magalys N (Shotgun Shell Assembly Machine Operator) [place] Diagnostic tests reviewed: Most recent labs Most recent imaging Recent Labs 03/05/18 0554 03/04/18 0455 03/03/18 2110 03/02/18 0323 12/11/18 1100 GLUC 291* 253* 398* < > [...] 05, 2018 TIME: 9:16 AM PAGER/CONTACT #: [phone] Transferred to my service Chart reviewed Evaluated [...] discharge in 1-2 days Attestation signed by nAupam Willis MD [facility] Attending March 05, 2018 9:56 PM Normal [facility] Basic Panelon 03-04-2018 Creatinine mass conc 1.19 mg/dL High 0.51-0.95 [facility] Comment on above: Performed By: #### E DGLG #### [place] [address] Anion gap molar conc 12 mmol/L Normal 8-16 [facility] Comment on above: Performed By: #### E DGLG #### [place] [address] CO2 molar conc 25 mmol/L Normal 21-32 [facility] Comment on above: Performed By: #### E DGLG #### [address] [address] Glucose mass conc 253 mg/dL High 70-99 [facility] Comment on above: Performed By: #### E DGLG #### [place] [address] Urea nitrogen mass conc 24 mg/dL High 7-18 [facility] Comment on above: Performed By: #### E DGLG #### [facility] [address] [place] [address] Calcium mass conc 8.5 mg/dL Normal 8.5-10.1 [facility] Comment on above: Performed By: #### E DGLG #### [facility] [address] [place] [address] Chloride molar conc 105 mmol/L Normal 98-107 [facility] Comment on above: Performed By: #### E DGLG #### [facility] [address] [place] [address] Potassium molar conc 3.8 mmol/L Normal 3.5-5.1 [facility] Comment on above: Performed By: #### E DGLG #### [facility] [address] [place] [address] Sodium molar conc 138 mmol/L Normal 136-145 [facility] Comment on above: Performed By: #### E DGLG #### [facility] [address] [place] [address] CASE MANAGEMon 03-04-2018 CASE MANAGEM HNO ID: [id number] Author: Radha (Rn) ESTHER Thomas Service: Care Management Author Type: Registered Nurse Type: Care Mgt Progress Note Filed: 03/04/2018 9:39 AM Note Text: CARE MANAGEMENT PROGRESS NOTE SERVICE DATE: 03/04/2018 SERVICE TIME: 9:38 AM LOS: 3 days Needs Prior to Discharge: To Be Determined Left at [phone] for Clifton Murray, patient painter tumbling barrel to discuss PT recommendation of outpatient therapy. Current plan is d/c home once medically ready. SIGNATURE: Radha Thomas RN PATIENT NAME: Cinthya Castillo DATE: March 04, 2018 TIME: 9:38 AM PAGER/CONTACT #: [phone] Normal [facility] Hemogramon 03-04-2018 Erythrocyte distribution width Ratio (RBC) 12.3 % Normal 11.7-14.4 [facility] Comment on above: Performed By: #### E DGLG #### [facility] [address] [place] [address] Hematocrit Volume Fraction (Bld) 33.1 % Low 34.1-44.9 [facility] Comment on above: Performed By: #### E DGLG #### [facility] [address] [place] [address] Hemoglobin mass conc (Bld) 10.9 g/dL Low 11.2-15.7 [facility] Comment on above: Performed By: #### E DGLG #### [facility] [address] [place] [address] MCH Entitic mass (RBC) 31.0 pg Normal 25.6-32.2 [facility] Comment on above: Performed By: #### E DGLG #### [facility] [address] [place] [address] MCHC mass conc (RBC) 32.9 % Normal 31.6-34.8 [facility] Comment on above: Performed By: #### E DGLG #### [facility] [address] [place] [address] MCV Entitic volume (RBC) 94.0 fL Normal 79.4-94.8 [facility] Comment on above: Performed By: #### E DGLG #### [facility] [address] [place] [address] Platelet mean volume Entitic volume (Bld) 10.1 fL Normal 9.4-12.3 [facility] Comment on above: Performed By: #### E DGLG #### [facility] [address] [place] [address] Platelets #/vol (Bld) 247 thou/cmm Normal 182-369 [facility] Comment on above: Performed By: #### E DGLG #### [facility] [address] [place] [address] RBC #/vol (Bld) 3.52 mil/cmm Low 3.93-5.22 [facility] Comment on above: Performed By: #### E DGLG #### [place] [address] RDW SD 42.2 fl Normal 36.4-46.3 [facility] Comment on above: Performed By: #### E DGLG #### [facility] [address] [place], [place] [address] WBC #/vol (Bld) 12.55 thou/cmm High 3.98-10.04 [facility] Comment on above: Performed By: #### E DGLG #### [facility] [address] [place] [address] NURSING PROGon 03-04-2018 Protein mass conc HNO ID: [id number] Author: Graciela (Rn) ESTHER Pineda Service: Nursing Author Type: Registered Nurse Type: Nursing Progress Note Filed: 03/04/2018 9:06 PM Note Text: House med paged regarding pt blood sugar of 425. Will give scheduled 60 U of lantus and new order for 15 U log received. Normal [facility] PROGRESSon 03-04-2018 Protein mass conc HNO ID: [id number] Author: Marielos Zhu Service: Hospital Medicine Author [...] complaints. BG remains elevated. Left message with caseworker intake (Clifton, ) to further discuss resources available in the [facility] to encourage medication adherence. PE: BP 126/64 [...] 7 day course. Anticipate discharge back to [facility] once blood sugars improved. Zeke Montague MD [...] and patient's developmental delay. Patient has a employment evaluator/case manager who has helped with her medications in [...] before meals today. Pending further recommendation from caseworker intake regarding resources to monitor compliance when patient is discharged to [facility]. OBJECTIVE BP 126/64 Pulse 104 Temp (Src) [...] oil cream (EUCERIN) TOPICAL DAILY Magalys N (Shotgun Shell Assembly Machine Operator) [place] Diagnostic tests reviewed: Most recent [...] 1545 -- 03/01/18 1715 pneumatic compression stockings (ny,oh) VTE Prophylaxis: VTE prophylaxis appropriate Plan of care discussed with: Attending and Patient SIGNATURE: Marielos Zhu DO PATIENT NAME: Cinthya Castillo DATE: March 04, 2018 TIME: 12:51 PM PAGER/CONTACT #: [phone] Normal [facility] THERAPY NTon 03-04-2018 THERAPY NT HNO ID: [id number] Author: Mariana PattenPt) MARIFER Mann Service: Physical Therapy Author Type: Physical Therapist Type: Therapy (PT/OT/Speech/Resp) Filed: 03/04/2018 2:21 PM Note Text: Physical Therapy Treatment SERVICE DATE: 03/04/2018 SERVICE TIME: 1322 to 1337 ROOM: [id number] Recommended Discharge Disposition: Outpatient Physical Therapy Recommended [...] Diagnosis: Reduced mobility-other Interventions Provided: Therapeutic Activity (49577) Therapeutic Activity (45356) Treatment Minutes: 15 1 unit Skilled Intervention(s): [...] noted 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 Denies any pain/discomfort and Agreeable to PT Home Environment Patient Lives With: Facility Care ([facility]) Assistance Available: 24 Hour Entry To Home: [...] Standing Dynamic Standing Balance: Stand By [facility]: Walk 25 feet or more Functional [...] [facility] THERAPY NT HNO ID: [id number] Author: Bruna Rowan/Olman Pantoja OT Service: Occupational Therapy Author Type: Occupational Therapist Type: Therapy (PT/OT/Speech/Resp) Filed: 03/04/2018 9:27 AM Note Text: Occupational Therapy Treatment SERVICE DATE: 03/04/2018 SERVICE TIME: 25 to 0850 ROOM: [id number] Recommended Discharge Disposition: Home Recommended Discharge Disposition Comments: Return to [facility] with continued assist for IADLs Anticipated Discharge [...] of daily living (ADL) Interventions Provided: Self Group Home Management (75904) Self Group Home Management (90601) Treatment Minutes: 25 2 units Skilled Intervention(s): [...] were noted 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 C/o discomfort due to pimple on R buttock. Home Environment Patient Lives With: Facility Care ([facility]) Assistance Available: 24 Hour Entry To Home: [...] Creatinine mass conc 1.42 mg/dL High 0.51-0.95 [facility] Comment on above: Performed By: #### E DGLG #### [facility] [facility] [address] [place], [place] [address] Anion gap molar conc 13 mmol/L Normal 8-16 [facility] Comment on above: Performed By: #### E DGLG #### [facility] [address] [place], [place] [address] CO2 molar conc 24 mmol/L Normal 21-32 [facility] Comment on above: Performed By: #### E DGLG #### [address] [address] Glucose mass conc 398 mg/dL High 70-99 [facility] Comment on above: Performed By: #### E DGLG #### [facility] [address] [place], [place] [address] Urea nitrogen mass conc 25 mg/dL High 7-18 [facility] Comment on above: Performed By: #### E DGLG #### [facility] [address] [place], [place] [address] Calcium mass conc 8.6 mg/dL Normal 8.5-10.1 [facility] Comment on above: Performed By: #### E DGLG #### [facility] [address] [place], [place] [address] Chloride molar conc 102 mmol/L Normal 98-107 [facility] Comment on above: Performed By: #### E DGLG #### [facility] [address] [place], [place] [address] Potassium molar conc 4.2 mmol/L Normal 3.5-5.1 [facility] Comment on above: Performed By: #### E DGLG #### [address] [address] Sodium molar conc 135 mmol/L Low 136-145 [facility] Comment on above: Performed By: #### E DGLG #### [facility] [address] [place], [place] [address] Creatinine mass conc 1.25 mg/dL High 0.51-0.95 [facility] Comment on above: Performed By: #### E DGLG #### [facility] [address] [place], [place] [address] Urea nitrogen mass conc 28 mg/dL High 7-18 [facility] Comment on above: Performed By: #### E DGLG #### [facility] [address] [place], [place] [address] Anion gap molar conc 14 mmol/L Normal 8-16 [facility] Comment on above: Performed By: #### E DGLG #### [facility] [address] [place], [place] [address] Calcium mass conc 8.8 mg/dL Normal 8.5-10.1 [facility] Comment on above: Performed By: #### E DGLG #### [facility] [address] [place], [place] [address] CO2 molar conc 25 mmol/L Normal 21-32 [facility] Comment on above: Performed By: #### E DGLG #### [facility] [address] [place], [place] [address] Glucose mass conc 230 mg/dL High 70-99 [facility] Comment on above: Performed By: #### E DGLG #### [facility] [address] [place], [place] [address] Chloride molar conc 104 mmol/L Normal 98-107 [facility] Comment on above: Performed By: #### E DGLG #### [facility] [address] [place], [place] [address] Potassium molar conc 3.6 mmol/L Normal 3.5-5.1 [facility] Comment on above: Performed By: #### E DGLG #### [facility] [address] [place], [place] [address] Sodium molar conc 139 mmol/L Normal 136-145 [facility] Comment on above: Performed By: #### E DGLG #### [facility] [address] [place] [address] Hemogramon 03-03-2018 Erythrocyte distribution width Ratio (RBC) 12.3 % Normal 11.7-14.4 [facility] Comment on above: Performed By: #### E DGLG #### [facility] [address] [place] [address] Hematocrit Volume Fraction (Bld) 34.1 % Normal 34.1-44.9 [facility] Comment on above: Performed By: #### E DGLG #### [facility] [address] [place] [address] Hemoglobin mass conc (Bld) 11.3 g/dL Normal 11.2-15.7 [facility] Comment on above: Performed By: #### E DGLG #### [facility] [address] [place] [address] MCH Entitic mass (RBC) 31.0 pg Normal 25.6-32.2 [facility] Comment on above: Performed By: #### E DGLG #### [facility] [address] [place] [address] MCHC mass conc (RBC) 33.1 % Normal 31.6-34.8 [facility] Comment on above: Performed By: #### E DGLG #### [facility] [address] [place] [address] MCV Entitic volume (RBC) 93.4 fL Normal 79.4-94.8 [facility] Comment on above: Performed By: #### E DGLG #### [facility] [address] [place] [address] Platelet mean volume Entitic volume (Bld) 10.8 fL Normal 9.4-12.3 [facility] Comment on above: Performed By: #### E DGLG #### [facility] [address] [place] [address] Platelets #/vol (Bld) 268 thou/cmm Normal 182-369 [facility] Comment on above: Performed By: #### E DGLG #### [facility] [address] [place] [address] RBC #/vol (Bld) 3.65 mil/cmm Low 3.93-5.22 [facility] Comment on above: Performed By: #### E DGLG #### [facility] [address] [place] [address] RDW SD 42.5 fl Normal 36.4-46.3 [facility] Comment on above: Performed By: #### E DGLG #### [facility] [address] [place] [address] WBC #/vol (Bld) 12.31 thou/cmm High 3.98-10.04 [facility] Comment on above: Performed By: #### E DGLG #### [place] [address] Lipid Profileon 03-03-2018 Cholesterol in HDL mass conc 29 mg/dL Normal >40 [facility] Comment on above: Performed By: #### E DGLG #### [place] [address] Cholesterol in LDL mass conc 64 mg/dL Normal [facility] Comment on above: Result Comment: No C AD and with fewer than 2 CAD risk factors <160 mg/dL No CAD but with 2 or more CAD risk factors <130 mg/dL Definite CAD or other atherosclerotic disease <100 mg/dL Performed By: #### E DGLG #### [place] [address] Cholesterol in LDL/Cholesterol in HDL mass ratio 2.2 Normal 0.6-3.6 [facility] Comment on above: Result Comment: LDL, VLDL,LDL/HDL, Invalid if Triglyceride >400 Performed By: #### E DGLG #### [facility] [address] [place] [address] Cholesterol.total/Maude sterol in HDL mass ratio 4.6 {ratio} Normal 1.8-5.3 [facility] Comment on above: Performed By: #### E DGLG #### [place] [address] Cholesterol in VLDL mass conc 41 mg/dL Normal <50 Desired [facility] Comment on above: Performed By: #### E DGLG #### [facility] [address] [place], [place] [address] Triglyceride mass conc 207 mg/dL High 0-149 [facility] Comment on above: Result Comment: < 20 0 Desirable Result invalid if not a fasting specimen. Performed By: #### E DGLG #### [facility] [address] [place], [place] [address] Cholesterol mass conc 134 mg/dL Normal 0-199 [facility] Comment on above: Result Comment: <200 Desirable 200-240 Borderline >240 High Performed By: #### E DGLG #### [facility] [address] [place], [place] [address] NURSING PROGon 03-03-2018 Protein mass conc HNO ID: [id number] Author: Graciela (Rn) ESTHER Pineda Service: Nursing [...] PROGRESSon 03-03-2018 Protein mass conc HNO ID: [id number] Author: Marielos Zhu Service: Hospital Medicine Author [...] UTI. HX: Blood glucose improved. Spoke with caseworker intake this morning; unlikely to be able to [...] and patient's developmental delay. Patient has a employment evaluator/case manager who has helped with her medications in [...] oil cream (EUCERIN) TOPICAL DAILY Magalys N (Shotgun Shell Assembly Machine Operator) [place] Diagnostic tests reviewed: Most recent [...] ) 40 mg SUBCUTANEOUS EVERY 12 HOURS 12/12/18 1117 -- 03/02/18 1600 aspirin 81 mg chewable tab(s) 81 mg ORAL DAILY 03/02/18 1545 -- 03/01/18 1715 pneumatic compression stockings (ny,oh) VTE Prophylaxis: VTE prophylaxis appropriate Plan of care discussed with: Attending and Patient SIGNATURE: Marielos Zhu DO PATIENT NAME: Cinthya Castillo DATE: March 03, 2018 TIME: 7:42 AM PAGER/CONTACT #: [phone] Normal [facility] THERAPY NTon 03-03-2018 THERAPY NT HNO ID: [id number] Author: Mariana (Pt) MARIFER Mann Service: Physical Therapy Author Type: Physical Therapist Type: Therapy (PT/OT/Speech/Resp) Filed: 03/03/2018 9:27 AM Note Text: Physical Therapy Treatment SERVICE DATE: 03/03/2018 SERVICE TIME: 0840 to 0903 ROOM: [place] [address] Recommended Discharge Disposition: Outpatient Physical Therapy Recommended [...] Diagnosis: Reduced mobility-other Interventions Provided: Therapeutic Exercise (40973);Therapeutic Activity (69560) Therapeutic Exercise (26516) Treatment Minutes: 15 1 unit Skilled Intervention(s): Instruction in therapeutic exercise . Verbal and tactile cuing provided . to perform properly without compensation or use of momentum. 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 Denies any pain/discomfort and Agreeable to PT Home Environment Patient Lives With: [facility] ([facility]) Assistance Available: 24 Hour Entry To Home: [...] ALLIED HEALTHon 03-02-2018 ALLIED HEALTH HNO ID: [id number] Author: Cinthya (Rn) ESTHER Maloney Service: Diabetes Education Author Type: Registered Nurse Type: Allied Health Filed: 03/02/2018 4:23 PM Note Text: DIABETES EDUCATION PROGRESS NOTE SERVICE DATE: 03/02/2018 SERVICE TIME: 1500 RECOMMENDATIONS: Patient needs to follow-up with primary care physician after discharge. Prescriptions for diabetic supplies -insulin and glucometer. Patient lives at Adult [facility] and has meals provided and clothes washed. [...] Developmentally disbled Family support: patient lives at [facility] Education Type: Individual instruction Written instruction - handouts Verbal instruction Demonstration-Hands on Learning Response to education: States/Identifies, Return Demonstration, Needs Review and will need assist and supervision at [facility]. Education provided to: Patient. Teachback method used. Time Spent (Minutes): 30 SIGNATURE: Cinthya Maloney RN PATIENT NAME: Cinthya Castillo DATE: March 02, 2018 TIME: 4:17 PM PAGER: [phone] Normal [facility] Basic Panelon 03-02-2018 Creatinine mass conc 1.16 mg/dL High 0.51-0.95 [facility] Comment on above: Performed By: #### E DGLG #### [place] [address] Anion gap molar conc 16 mmol/L Normal 8-16 [facility] Comment on above: Performed By: #### E DGLG #### [place] [address] Calcium mass conc 8.8 mg/dL Normal 8.5-10.1 [facility] Comment on above: Performed By: #### E DGLG #### [place] [address] CO2 molar conc 22 mmol/L Normal 21-32 [facility] Comment on above: Performed By: #### E DGLG #### [facility] [address] [place] [address] Glucose mass conc 447 mg/dL Critically high 70-99 [facility] Comment on above: Performed By: #### E DGLG #### [place] [address] Urea nitrogen mass conc 32 mg/dL High 7-18 [facility] Comment on above: Performed By: #### E DGLG #### [facility] [address] [place], [place] [address] Chloride molar conc 98 mmol/L Normal 98-107 [facility] Comment on above: Performed By: #### E DGLG #### [facility] [address] [place], [place] [address] Potassium molar conc 4.0 mmol/L Normal 3.5-5.1 [facility] Comment on above: Performed By: #### E DGLG #### [facility] [address] [place] [address] Sodium molar conc 132 mmol/L Low 136-145 [facility] Comment on above: Performed By: #### E DGLG #### [facility] [address] [place] [address] Creatinine mass conc 1.10 mg/dL High 0.51-0.95 [facility] Comment on above: Performed By: #### E DKG #### [facility] [address] [place] [address] Urea nitrogen mass conc 37 mg/dL High 7-18 [facility] Comment on above: Performed By: #### E DKG #### [facility] [address] [place] [address] Anion gap molar conc 16 mmol/L Normal 8-16 [facility] Comment on above: Performed By: #### E DKG #### [facility] [address] [place], [place] [address] Calcium mass conc 8.8 mg/dL Normal 8.5-10.1 [facility] Comment on above: Performed By: #### E DKG #### [facility] [address] [place] [address] CO2 molar conc 20 mmol/L Low 21-32 [facility] Comment on above: Performed By: #### E DKG #### [facility] [address] [place] [address] Glucose mass conc 359 mg/dL High 70-99 [facility] Comment on above: Performed By: #### E DKG #### [facility] [address] [place] [address] Chloride molar conc 102 mmol/L Normal 98-107 [facility] Comment on above: Performed By: #### E DKG #### [facility] [address] [place] [address] Potassium molar conc 3.8 mmol/L Normal 3.5-5.1 [facility] Comment on above: Performed By: #### E DKG #### [facility] [address] [place] [address] Sodium molar conc 134 mmol/L Low 136-145 [facility] Comment on above: Performed By: #### E DKG #### [facility] [address] [place] [address] CASE MGT INIT RANDIon 2017 CASE MGT INIT RANDI HNO ID: [id number] Author: Radha (Rn) ESTHER Thomas Service: Care Management Author Type: Registered Nurse Type: Care Mgt Initial Assessment Filed: 03/02/2018 1:18 PM Note Text: CARE MANAGEMENT: ASSESSMENT AND DISCHARGE PLAN SERVICE DATE: 03/02/2018 SERVICE TIME: 11:21 AM PRIMARY CARE PHYSICIAN: Kristel Nunes MD ADMISSION STATUS: Inpatient Needs Prior to Discharge: To Be Determined 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 No Advance Directive: Current Advance Directive: None Shipping Coordinator Attempted to Assist with AD Completion: Yes [...] opportunity to ask questions and stated her terrazzo worker helper Clifton usually assists with medical information FUNCTIONAL AND COGNITIVE/BEHAVIORAL PRIOR TO ADMISSION: Baseline Mental Status: Alert AND Oriented, Person, Place , Time and Situation Functional Status: Needs Assistance Does Patient Currently Receive Any Community Services or Home Care? [facility] [phone] Equipment Prior to Admission: Cane - Straight Has the Patient Been in a Detention Facility in the Past 30 days? No SOCIAL: Living Arrangement: Home, lives in a facility known as [facility]. An "adult" [facility] Lives With: essentially a [facility], with multiple adults Financial Resources: Disabled Primary Contact: Extended Emergency Contact Information Primary Emergency Contact: SrikanthClifton Mobile Relation: [facility] Shipping Coordinator Supportive: Yes Other Important Patient Contacts: Joyce Edouard, mate ship of [facility], facility in which patient resides [phone] Caregiver Assessment: Caregiver is ready, willing and [...] 0 I feel financially burdened by my [id number] expenses for my prescription medication: Disagree completely [...] to patient and Clifton Murray, the patient's behavioral health care coordinator from [facility],at bedside. Patient resides in essentially an adult [facility]. Clifton provides transportation and can provide transport at d/c. +Rx coverage- patient has docudose delivered from [facility] on [address]. Clifton does assist patient as needed with medical forms and social needs as they present themselves. No current needs identified. Will continue to follow. SIGNATURE: Radha Thomas RN PATIENT NAME: Cinthya Castillo DATE: March 02, 2018 TIME: 11:21 AM PAGER/CONTACT #: [phone] Normal [facility] CONSULT PROGon 03-02-2018 Protein mass conc HNO ID: [id number] Author: Cassandra (Esther) ESTHER Barkley Service: Wound Care Team Author Type: Registered Nurse Type: Consult Progress Note Filed: 03/02/2018 9:19 AM Note Text: WOUND CARE NURSE CONSULT NOTE SERVICE DATE: 03/02/2018 SERVICE TIME: 835 REASON FOR VISIT: Wound TIME SPENT (minutes): 15 Wound care consulted for right elbow. Patient seen by FATOUMATA DonovanC, and swati metal coater. Abrasion to right elbow. Start xeroform, and cover dressing daily. Dermatologic rash/wound to buttocks. Start critic aid clear BID and PRN incontinence to bilateral buttocks. Allevyn to sacrum. Turn schedule. [id number] bed. Offload heels with pillows. Eucerin to BLE and feet, avoid between toes, daily. Wound care to sign off. Please reconsult if needed. Documentation from Wound Expert can be found in scanned documents. SIGNATURE: Cassandra Barkley RN, CWOCN PATIENT NAME: Cinthya Castillo DATE: March 02, 2018 TIME: 9:17 AM CONTACT#: [id number] Normal [facility] Comprehensive Panelon 2017 ALP enzyme act/vol 106 U/L Normal 46-116 [facility] Comment on above: Performed By: #### E DKG #### [place] [address] Protein mass conc 7.0 g/dL Normal 6.4-8.2 [facility] Comment on above: Performed By: #### E DKG #### [place] [address] Bilirubin mass conc 0.6 mg/dL Normal 0.2-1.0 [facility] Comment on above: Performed By: #### E DKG #### [place] [address] ALT enzyme act/vol 23 U/L Normal 12-78 [facility] Comment on above: Performed By: #### E DKG #### [facility] [address] [place], [place] [address] AST enzyme act/vol 14 U/L Normal 9-37 [facility] Comment on above: Performed By: #### E DKG #### [facility] [address] [place], [place] [address] Creatinine mass conc 1.23 mg/dL High 0.51-0.95 [facility] Comment on above: Performed By: #### E DKG #### [facility] [address] [place], [place] [address] Glucose mass conc 297 mg/dL High 70-99 [facility] Comment on above: Performed By: #### E DKG #### [facility] [address] [place], [place] [address] Albumin mass conc 2.7 g/dL Low 3.4-5.0 [facility] Comment on above: Performed By: #### E DKG #### [facility] [address] [place] [address] Anion gap molar conc 15 mmol/L Normal 8-16 [facility] Comment on above: Performed By: #### E DKG #### [facility] [address] [place], [place] [address] Calcium mass conc 8.1 mg/dL Low 8.5-10.1 [facility] Comment on above: Performed By: #### E DKG #### [facility] [address] [place], [place] [address] CO2 molar conc 22 mmol/L Normal 21-32 [facility] Comment on above: Performed By: #### E DKG #### [facility] [address] [place], [place] [address] Urea nitrogen mass conc 36 mg/dL High 7-18 [facility] Comment on above: Performed By: #### E DKG #### [facility] [address] [place], [place] [address] Chloride molar conc 103 mmol/L Normal 98-107 [facility] Comment on above: Performed By: #### E DKG #### [facility] [address] [place] [address] Potassium molar conc 3.7 mmol/L Normal 3.5-5.1 [facility] Comment on above: Performed By: #### E DKG #### [facility] [address] [place] [address] Sodium molar conc 136 mmol/L Normal 136-145 [facility] Comment on above: Performed By: #### E DKG #### [facility] [address] [place] [address] Hemogramon 03-02-2018 Erythrocyte distribution width Ratio (RBC) 12.6 % Normal 11.7-14.4 [facility] Comment on above: Performed By: #### E DKG #### [facility] [address] [place] [address] Hematocrit Volume Fraction (Bld) 33.2 % Low 34.1-44.9 [facility] Comment on above: Performed By: #### E DKG #### [facility] [address] [place] [address] Hemoglobin mass conc (Bld) 11.0 g/dL Low 11.2-15.7 [facility] Comment on above: Performed By: #### E DKG #### [facility] [address] [place] [address] MCH Entitic mass (RBC) 30.5 pg Normal 25.6-32.2 [facility] Comment on above: Performed By: #### E DKG #### [facility] [address] [place] [address] MCHC mass conc (RBC) 33.1 % Normal 31.6-34.8 [facility] Comment on above: Performed By: #### E DKG #### [facility] [address] [place] [address] MCV Entitic volume (RBC) 92.0 fL Normal 79.4-94.8 [facility] Comment on above: Performed By: #### E DKG #### [place] [address] Platelet mean volume Entitic volume (Bld) 10.8 fL Normal 9.4-12.3 [facility] Comment on above: Performed By: #### E DKG #### [facility] [address] [place] [address] Platelets #/vol (Bld) 261 thou/cmm Normal 182-369 [facility] Comment on above: Performed By: #### E DKG #### [facility] [address] [place] [address] RBC #/vol (Bld) 3.61 mil/cmm Low 3.93-5.22 [facility] Comment on above: Performed By: #### E DKG #### [facility] [address] [place] [address] RDW SD 42.4 fl Normal 36.4-46.3 [facility] Comment on above: Performed By: #### E DKG #### [facility] [address] [place] [address] WBC #/vol (Bld) 14.22 thou/cmm High 3.98-10.04 [facility] Comment on above: Performed By: #### E DKG #### [facility] [address] [place] [address] NUTRITIONon 03-02-2018 NUTRITION HNO ID: [id number] Author: Perla Elias RD Service: Nutrition Therapy [...] March 02, 2018 TIME: 3:43 PM PAGER: [phone] Normal [facility] PLAN OF CAREon 03-02-2018 PLAN OF CARE HNO ID: [id number] Author: Gabo Jackson Service: Pharmacy Author Type: Pharmacist Type: Plan of Care Filed: 03/02/2018 1:37 PM Note Text: MEDICATION HISTORY AND MEDICATION RECONCILIATION Patient Name:Gregor Castillo : 1960 Source of history:Patient: Reliability of source: Patient does not know her meds but takes all that is in the compliace packaging from [facility], Pharmacy records: [facility] records and [facility] Medication Nonadherence Identified: Patient has compliance packaging and was supposed to be on insulin but has not been taking for a while. The above information represents the best possible medication history: Yes Reconciliation completed? Yes Medications intentionally held at admission: Most medications held on admission and new insulin regimen started. Will discuss with med team at afternoon rounds regarding updated QUOTATION CHECKER med list Additional comments: Confirmed all meds filled at [facility] in compliance package on 01/24/2018 Allergies: ALLERGIES Allergen Reactions - Penicillin Unknown Pt unaware of reaction Preferred Pharmacy: [facility] Current [facility] Medications: Prior to Admission medications as of [...] Jackson, PharmD March 02, 2018 1:15 PM [facility] PROGRESSon 03-02-2018 Protein mass conc HNO ID: [id number] Author: Marielos Zhu Service: Hospital Medicine Author [...] and patient's developmental delay. 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 Operator) [place] Diagnostic tests reviewed: Most recent [...] 1117 -- 03/01/18 1715 pneumatic compression stockings (ny,ne) VTE Prophylaxis: VTE prophylaxis appropriate Plan of care discussed with: Attending and Patient SIGNATURE: Marielos Zhu DO PATIENT NAME: Cinthya Castillo DATE: March 02, 2018 TIME: 2:07 PM PAGER/CONTACT #: [phone] Normal [facility] THERAPY NTon 03-02-2018 THERAPY NT HNO ID: [id number] Author: Mariana (Pt) MARIFER Mann Service: Physical Therapy Author Type: Physical Therapist Type: Therapy (PT/OT/Speech/Resp) Filed: 03/02/2018 11:55 AM Note Text: Physical Therapy Evaluation SERVICE DATE: 03/02/2018 SERVICE TIME: 1120 to 1143 ROOM: [place] [address] Recommended Discharge Disposition: Outpatient Physical Therapy Recommended [...] in Chair;Call Grayson in Reach;Other: See Comment (painter tumbling barrel present) Tolerated Full Session Physical Therapy Problem [...] Diagnosis: Reduced mobility-other Interventions Provided: Evaluation;Gait Training (67886) $ Evaluation-Low (31423) Billed Units: 1 unit Gait Training (87151) Treatment Minutes: 8 1 unit Skilled Intervention(s): [...] file. 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 Patient states she fell because she was rushing when got up out of bed. Agreeable to PT Home Environment Patient Lives With: [facility] Assistance Available: 24 Hour Entry To Home: [facility] HNO ID: [id number] Author: Bruna Rosalesr/Olman Pantoja OT Service: Occupational Therapy Author Type: Occupational Therapist Type: Therapy (PT/OT/Speech/Resp) Filed: 03/02/2018 11:43 AM Note Text: Occupational Therapy Evaluation SERVICE DATE: 03/02/2018 SERVICE TIME: 1111 to 1126 ROOM: [id number] Recommended Discharge Disposition: Home Recommended Discharge Disposition Comments: Return to [facility] with continued assist for IADLs Anticipated Discharge [...] living (ADL) Interventions Provided: Evaluation $ Evaluation-Low (89884) Billed Units: 1 unit Total Treatment Time [...] in DKA. 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 No c/o pain. Home Environment Patient Lives With: [facility] - lives with 3 males and aids [...] mass conc 524 mg/dL Critically high 70-99 [facility] Comment on above: Performed By: #### E DKG #### [facility] [address] [place] [address] Creatinine mass conc 1.25 mg/dL High 0.51-0.95 [facility] Comment on above: Performed By: #### E DKG #### [facility] [address] [place] [address] Anion gap molar conc 16 mmol/L Normal 8-16 [facility] Comment on above: Performed By: #### E DKG #### [facility] [address] [place] [address] CO2 molar conc 23 mmol/L Normal 21-32 [facility] Comment on above: Performed By: #### E DKG #### [facility] [address] [place] [address] Urea nitrogen mass conc 47 mg/dL High 7-18 [facility] Comment on above: Performed By: #### E DKG #### [facility] [address] [place] [address] Calcium mass conc 8.7 mg/dL Normal 8.5-10.1 [facility] Comment on above: Performed By: #### E DKG #### [facility] [address] [place] [address] Chloride molar conc 99 mmol/L Normal 98-107 [facility] Comment on above: Performed By: #### E DKG #### [facility] [address] [place] [address] Potassium molar conc 4.0 mmol/L Normal 3.5-5.1 [facility] Comment on above: Performed By: #### E DKG #### [facility] [address] [place] [address] Sodium molar conc 134 mmol/L Low 136-145 [facility] Comment on above: Performed By: #### E DKG #### [facility] [address] [place] [address] CHEST 2 VIEWSon 03-01-2018 CHEST 2 VIEWS [...] IMPRESSION: There is no acute disease. Normal [facility] Comprehensive Panelon 2017 ALT enzyme act/vol 28 U/L Normal 12-78 [facility] Comment on above: Performed By: #### P 14 #### [facility] [address] [place], [place] [address] ALP enzyme act/vol 122 U/L High 46-116 [facility] Comment on above: Performed By: #### P 14 #### [facility] [address] [place], [place] [address] Bilirubin mass conc 0.9 mg/dL Normal 0.2-1.0 [facility] Comment on above: Performed By: #### P 14 #### [facility] [address] [place], [place] [address] Glucose mass conc 735 mg/dL Critically high 70-99 [facility] Comment on above: Performed By: #### P 14 #### [facility] [address] [place], [place] [address] Protein mass conc 8.2 g/dL Normal 6.4-8.2 [facility] Comment on above: Performed By: #### P 14 #### [facility] [address] [place], [place] [address] AST enzyme act/vol 19 U/L Normal 9-37 [facility] Comment on above: Performed By: #### P 14 #### [facility] [address] [place], [place] [address] Creatinine mass conc 1.51 mg/dL High 0.51-0.95 [facility] Comment on above: Performed By: #### P 14 #### [facility] [address] [place], [place] [address] Albumin mass conc 3.2 g/dL Low 3.4-5.0 [facility] Comment on above: Performed By: #### P 14 #### [facility] [address] [place] [address] Anion gap molar conc 20 mmol/L High 8-16 [facility] Comment on above: Performed By: #### P 14 #### [facility] [address] [place] [address] Calcium mass conc 9.3 mg/dL Normal 8.5-10.1 [facility] Comment on above: Performed By: #### P 14 #### [facility] [address] [place] [address] CO2 molar conc 20 mmol/L Low 21-32 [facility] Comment on above: Performed By: #### P 14 #### [facility] [address] [place] [address] Urea nitrogen mass conc 55 mg/dL High 7-18 [facility] Comment on above: Performed By: #### P 14 #### [facility] [address] [place] [address] Chloride molar conc 91 mmol/L Low 98-107 [facility] Comment on above: Performed By: #### P 14 #### [facility] [address] [place] [address] Potassium molar conc 4.0 mmol/L Normal 3.5-5.1 [facility] Comment on above: Performed By: #### P 14 #### [facility] [address] [place] [address] Sodium molar conc 127 mmol/L Low 136-145 [facility] Comment on above: Performed By: #### P 14 #### [facility] [address] [place] [address] Cult Bloodon 03-01-2018 Cult Blood Test performed at [facility] No growth The blood cultures are under-filled. Adding volumes lower or higher than 8-10 ml per aerobic bottle or 5-7 ml per anaerobic bottle, which is the manufacturers recommended volume, may adversely affect the recovery and/or detection of organisms. Normal [facility] Comment on above: Performed By: #### E DKG #### [facility] [address] [place] [address] Cult Blood Test performed at [facility] No growth Normal [facility] Comment on above: Performed By: #### E DGLG #### [facility] [address] [place] [address] Cult Urineon 03-01-2018 Cult Urine Test performed at [facility] Mixed skin dani. No further identification or susceptibility testing will be performed. Please submit a new specimen. Plates will be held for 5 days. Normal [facility] Comment on above: Performed By: #### E DGLG #### [facility] [address] [place] [address] ED NOTEon 03-01-2018 ED NOTE HNO ID: [id number] Author: Antoine Moise RN Service: Emergency Medicine Author Type: Registered Nurse Type: ED Notes Filed: 03/01/2018 11:47 AM Note Text: Urine culture obtained AND sent Normal [facility] ED NOTE HNO ID: [id number] Author: Antoine Moise RN Service: Emergency Medicine Author Type: Registered Nurse Type: ED Notes Filed: 03/01/2018 11:27 AM Note Text: Clean catch urine specimen obtained AND sent to lab. Culture held in lab Normal [facility] ED NOTE HNO ID: [id number] Author: Antoine Moise RN Service: Emergency Medicine Author Type: Registered Nurse Type: ED Notes Filed: 03/01/2018 11:32 AM Note Text: Radiology notified pt is ready for x-ray Normal [facility] ED NOTE HNO ID: [id number] Author: Paris King (Tech) Service: Emergency Medicine Author Type: Yarn Mercerizer Operator Type: ED Notes Filed: 03/01/2018 10:41 AM Note Text: Blood sugar check performed per request of Sherry with the result of critically high. Sherry notified at this time. Normal [facility] ED NOTE HNO ID: [id number] Author: Cassandra Dailey RN Service: Emergency Medicine Author Type: Registered Nurse Type: ED Notes Filed: 03/01/2018 10:34 AM Note Text: Pt placed on monitor at this time. Side rails up. Call light within reach. Fall risk band on Normal [facility] ED NOTE HNO ID: [id number] Author: Cassandra (Rn) ESTHER Dailey Service: Emergency Medicine Author Type: Registered Nurse Type: ED Notes Filed: 03/01/2018 10:27 AM Note Text: Per ems, pt lives in [facility]. Fell last night after dinner. Denies hitting head. States woke up this am with weak legs. Ems called. Ems check fsbs, 550>. Pt A/Ox4 upon arrival. Normal [facility] ED NOTE HNO ID: [id number] Author: Jeramy (Medic) Chuyita Valdivia Service: (none) Author Type: Wool Presser and Yarn Mercerizer Operator Type: ED Notes Filed: 03/01/2018 10:20 AM Note Text: Bed: 10-ED Expected date: 03/01/18 Expected time: 10:11 AM Means of arrival: [place] Comments: afd av-1 hi bs weakness Normal [facility] ED PROV NOTEon 03-01-2018 Protein mass conc HNO ID: [id number] Author: Radha Romero MD Service: Emergency Medicine [...] tachycardia no ST abnormalities consistent with acute [place]. The patient had an IV established blood [...] [facility] HNO ID: [id number] Author: Joss Andrew MD Service: Emergency Medicine [...] EMS personnel History limited by: Psychiatric disorder plastic surgery manager used: No PAST MEDICAL HISTORY Diagnosis [...] Glucose mass conc 679 mg/dL High 70-99 [facility] Comment on above: Performed By: #### E DGLG #### [facility] [address] [place] [address] HIP 3V PELV/AP/LAT LEFTon HIP 3V PELV/AP/LAT LEFT Performed at [facility] APPROVED BY: lAex Cam MD EXAM TITLE: AP VIEW OF [...] Otherwise negative pelvis and left hip. Normal [facility] HISTORY PHYSICALon HISTORY PHYSICAL HNO ID: [id number] Author: Davy Ontiveros (Dandy) Nitza Service: Hospital [...] doc-u-dose. She reveals that she has a caseworker intake. PE: BP 118/69 Pulse 115 Temp 36.7 [...] UTI. SW consult to assist with contacting caseworker intake; given elevated blood sugar/A1C and patient lack [...] Lymph 1.18 - 3.74 thou/cmm 1.64 Abs. [place] 0.27 - 0.70 thou/cmm 1.07 (H) Abs. Eosin 0.00 - 0.31 thou/cmm 0.09 Abs. Baso 0.01 - 0.08 thou/cmm 0.05 Color YELLOW Urine Appearance CLOUDY Glucose, Urine Negative mg/dL >=1000 (A) Ketones, Urine Negative mg/dL TRACE (A) Hemoglobin, Urine Negative SMALL (A) Protein, Urine Negative mg/dL NEGATIVE Nitrites Urine Negative NEGATIVE Bilirubin, Urine Negative NEGATIVE Specific [place], Ur 1.005 - 1.030 1.034 pH, Urine [...] Medications Start Dose Route Frequency Ordered Stop 12/11/18 1800 enoxaparin 40 mg injection (LOVENOX) (Medical At Risk ) 40 mg SUBCUTANEOUS DAILY 03/01/18 171 -- 03/01/18 171 pneumatic compression stockings (ny,ne) VTE Prophylaxis: VTE prophylaxis appropriate SIGNATURE: Davy Goddard MD PATIENT NAME: Cinthya Castillo DATE: March 01, 2018 TIME: 5:44 PM PAGER/CONTACT #: [phone] Normal [facility] Hemogram/Diffon 03-01-2018 Abs Immature Grans 0.23 thou/cmm High 0.00-0.05 [facility] Comment on above: Performed By: #### E DKG #### [place] [address] Abs. Baso 0.05 thou/cmm Normal 0.01-0.08 [facility] Comment on above: Result Comment: Smea r scanned; tech agrees with automated differential Performed By: #### E DKG #### [place] [address] Abs. [place] 1.07 thou/cmm High 0.27-0.70 [facility] Comment on above: Performed By: #### E DKG #### [place] [address] Abs. Neut (ANC) 12.00 thou/cmm High 1.56-6.13 [facility] Comment on above: Performed By: #### E DKG #### [place] [address] Basophils/100 WBC (Bld) 0.3 % Normal [facility] Comment on above: Performed By: #### E DKG #### [place] [address] Eosinophils #/vol (Bld) 0.09 thou/cmm Normal 0.00-0.31 [facility] Comment on above: Performed By: #### E DKG #### [place] [address] Eosinophils/100 WBC (Bld) 0.6 % Normal [facility] Comment on above: Performed By: #### E DKG #### [facility] [address] [place] [address] Immature Grans 1.50 % Normal [facility] Comment on above: Performed By: #### E DKG #### [facility] [address] [place] [address] Lymphocytes #/vol (Bld) 1.64 thou/cmm Normal 1.18-3.74 [facility] Comment on above: Performed By: #### E DKG #### [facility] [address] [place] [address] Lymphocytes/100 WBC (Bld) 10.9 % Normal [facility] Comment on above: Performed By: #### E DKG #### [facility] [address] [place] [address] Monocytes/100 WBC (Bld) 7.1 % Normal [facility] Comment on above: Performed By: #### E DKG #### [facility] [address] [place] [address] Seg Neutrophil 79.6 % Normal [facility] Comment on above: Performed By: #### E DKG #### [facility] [address] [place] [address] Erythrocyte distribution width Ratio (RBC) 12.3 % Normal 11.7-14.4 [facility] Comment on above: Performed By: #### E DKG #### [facility] [address] [place] [address] Hematocrit Volume Fraction (Bld) 36.3 % Normal 34.1-44.9 [facility] Comment on above: Performed By: #### E DKG #### [facility] [address] [place] [address] Hemoglobin mass conc (Bld) 12.3 g/dL Normal 11.2-15.7 [facility] Comment on above: Performed By: #### E DKG #### [facility] [address] [place] [address] MCH Entitic mass (RBC) 30.5 pg Normal 25.6-32.2 [facility] Comment on above: Performed By: #### E DKG #### [facility] [address] [place] [address] MCHC mass conc (RBC) 33.9 % Normal 31.6-34.8 [facility] Comment on above: Performed By: #### E DKG #### [facility] [address] [place] [address] MCV Entitic volume (RBC) 90.1 fL Normal 79.4-94.8 [facility] Comment on above: Performed By: #### E DKG #### [facility] [address] [place] [address] Platelet mean volume Entitic volume (Bld) 10.3 fL Normal 9.4-12.3 [facility] Comment on above: Performed By: #### E DKG #### [facility] [address] [place] [address] Platelets #/vol (Bld) 268 thou/cmm Normal 182-369 [facility] Comment on above: Performed By: #### E DKG #### [facility] [address] [place] [address] RBC #/vol (Bld) 4.03 mil/cmm Normal 3.93-5.22 [facility] Comment on above: Performed By: #### E DKG #### [facility] [address] [place] [address] RDW SD 40.4 fl Normal 36.4-46.3 [facility] Comment on above: Performed By: #### E DKG #### [facility] [address] [place] [address] WBC #/vol (Bld) 15.08 thou/cmm High 3.98-10.04 [facility] Comment on above: Performed By: #### E DKG #### [facility] [address] [place] [address] Hgb A1con 03-01-2018 Hemoglobin A1c/Hemoglobin.total mass fraction (Bld) 14.7 % High 4.2-6.3 [facility] Comment on above: Result Comment: Meth od is National Glycohemoglobin Standardization Program (NGSP) compliant. Performed By: #### E DKG #### [facility] [address] [place] [address] Hemoglobin A1c/Hemoglobin.total mass fraction (Bld) 375 mg/dl Normal [facility] Comment on above: Performed By: #### E DKG #### [facility] [address] [place] [address] Lactic Acidon 03-01-2018 Lactate molar conc 1.6 mmol/L Normal 0.5-2.2 [facility] Comment on above: Performed By: #### E DKG #### [facility] [address] [place] [address] Lipase Bloodon 03-01-2018 Lipase Blood 290 U/L Normal 73-393 [facility] Comment on above: Performed By: #### L IP #### [facility] [address] [place] [address] Magnesium Bloodon 03-01-2018 Magnesium mass conc 1.8 mg/dL Normal 1.6-2.6 [facility] Comment on above: Performed By: #### E DKG #### [facility] [address] [place] [address] Phosphorus Bloodon 8 Phosphate mass conc 2.5 mg/dL Normal 2.5-4.9 [facility] Comment on above: Performed By: #### E DKG #### [facility] [address] [place] [address] Potassiumon 03-01-2018 Potassium molar conc 4.1 mmol/L Normal 3.4-4.5 [facility] Comment on above: Performed By: #### E DKG #### [facility] [address] [place] [address] Urinalysis Routineon 018 Bacteria LM.HPF #/area (Urine sed) FEW Normal None [facility] Comment on above: Performed By: #### U RIN2 #### [facility] [address] [place] [address] Ep Cells Urine 8.4 /hpf High 0.0-5.0 [facility] Comment on above: Performed By: #### U RIN2 #### [facility] [address] [place], [place] [address] Hyaline Cast 1.9 /lpf High 0.0-1.0 [facility] Comment on above: Performed By: #### U RIN2 #### [facility] [address] [place] [address] RBC,Urine 46.8 /hpf High 0.0-5.0 [facility] Comment on above: Performed By: #### U RIN2 #### [facility] [address] [place] [address] WBC, Urine 158.5 /hpf High 0.0-5.0 [facility] Comment on above: Performed By: #### U RIN2 #### [facility] [address] [place] [address] Appearance Nom (U) CLOUDY Normal [facility] Comment on above: Performed By: #### U RIN2 #### [facility] [address] [place] [address] Bilirubin Urine Negative Normal Negative [facility] Comment on above: Performed By: #### U RIN2 #### [facility] [address] [place] [address] Color Nom (U) YELLOW Normal [facility] Comment on above: Performed By: #### U RIN2 #### [facility] [address] [place] [address] Glucose Ql (U) >=1000 Abnormal Negative [facility] Comment on above: Performed By: #### U RIN2 #### [facility] [address] [place] [address] Hemoglobin,Urine SMALL Abnormal Negative [facility] Comment on above: Performed By: #### U RIN2 #### [facility] [address] [place] [address] Ketone Urine TRACE Abnormal Negative [facility] Comment on above: Performed By: #### U RIN2 #### [facility] [address] [place] [address] Leukocytes Esterase MODERATE Abnormal Negative [facility] Comment on above: Performed By: #### U RIN2 #### [facility] [address] [place] [address] Nitrites Urine Negative Normal Negative [facility] Comment on above: Performed By: #### U RIN2 #### [facility] [address] [place], [place] [address] pH (U) 5.0 [pH] Normal 5.0-8.0 [facility] Comment on above: Performed By: #### U RIN2 #### [facility] [address] [place], [place] [address] Protein mass conc (U) Negative Normal Negative [facility] Comment on above: Performed By: #### U RIN2 #### [facility] [address] [place] [address] Specific [place], Ur 1.034 Normal 1.005-1.030 [facility] Comment on above: Performed By: #### U RIN2 #### [facility] [address] [place] [address] Urobilinogen,Ur 0.2 EU/dL Normal 0.0-1.0 [facility] Comment on above: Performed By: #### U RIN2 #### [facility] [address] [place] [address] Venous Blood Gason 8 Base Excess -3.2 mEq/L Low -2.5 to 2.5 [facility] Comment on above: Performed By: #### E DVBG #### [facility] [address] [place] [address] HCO3 molar conc (Bld) 21.2 mmol/L Normal 21.0-30.0 [facility] Comment on above: Performed By: #### E DVBG #### [facility] [address] [place] [address] PCO2 Venous 38.1 mm Hg Low 40.6-60.0 [facility] Comment on above: Performed By: #### E DVBG #### [facility] [address] [place], [place] [address] pH Venous 7.364 Normal 7.320-7.430 [facility] Comment on above: Performed By: #### E DVBG #### [place] [address] PO2 Venous 42.3 mm Hg High 15.9-37.5 [facility] Comment on above: Performed By: #### E DVBG #### [facility] [address] [place] [address] Culture, urine Bacteria identified Cx Nom (U) Positive [facility] Work Phone: Vital Signs Date Time Vital Sign Value Performing Clinician Faci lity 09-08-2023 13:04-0400 Body height 167.6 cm Lex Roca MD Work Phone: [facility] [employer] 09-08-2023 13:04-0400 Body mass index (BMI) [Ratio] 50.84 kg/m2 Lex Roca MD Work Phone: [facility] [employer] 09-08-2023 13:04-0400 Body weight 142.88 kg Lex Roca MD Work Phone: [employer] 09-07-2023 23:42-0400 Diastolic blood pressure 89 mm[Hg] Debora Currie DO Work Phone: [employer] 09-07-2023 23:42-0400 Heart rate 84 /min Debora Currie DO Work Phone: [employer] 09-07-2023 23:42-0400 Respiratory rate 16 /min Debora Currie DO Work Phone: [employer] 09-07-2023 23:42-0400 SaO2% (BldA) [Mass fraction] 98 % Debora Currie DO Work Phone: [employer] 09-07-2023 23:42-0400 Systolic blood pressure 140 mm[Hg] Debora Currie DO Work Phone: [employer] 09-07-2023 17:28-0400 Body temperature 98.6 [degF] Debora Currie DO Work Phone: [employer] 12-11-2022 13:25-0400 Diastolic blood pressure 83 mm[Hg] Micheal Silva MD Work Phone: [employer] 12-11-2022 13:25-0400 Heart rate 102 /min Micheal Silva MD Work Phone: [facility] [employer] 12-11-2022 13:25-0400 Respiratory rate 18 /min Micheal Silva MD Work Phone: [facility] [employer] 12-11-2022 13:25-0400 SaO2% (BldA) [Mass fraction] 93 % Micheal Silva MD Work Phone: [facility] [employer] 12-11-2022 13:25-0400 Systolic blood pressure 145 mm[Hg] Micheal Silva MD Work Phone: [facility] [employer] 12-11-2022 11:50-0400 Body height 167.6 cm Micheal Silva MD Work Phone: [facility] [employer] 12-11-2022 11:50-0400 Body mass index (BMI) [Ratio] 51 kg/m2 Micheal Silva MD Work Phone: [facility] [employer] 12-11-2022 11:50-0400 Body temperature 97.5 [degF] Micheal Silva MD Work Phone: [facility] [employer] 12-11-2022 11:50-0400 Body weight 143.34 kg Micheal Silva MD Work Phone: [facility] [employer] 11-12-2022 10:30-0400 Diastolic blood pressure 82 mm[Hg] Micheal Silva MD Work Phone: [facility] [employer] 11-12-2022 10:30-0400 Heart rate 86 /min Micheal Silva MD Work Phone: [facility] 11-12-2022 10:30-0400 Systolic blood pressure 151 mm[Hg] Micheal Silva MD Work Phone: [facility] 05-21-2022 10:00-0500 Body height 167.6 cm Lex Roca Work Phone: [facility] 05-21-2022 10:00-0500 Body mass index (BMI) [Ratio] 50.84 kg/m2 Lex Roca Work Phone: [facility] 05-21-2022 10:00-0500 Body weight 142.88 kg Lex Roca Work Phone: [facility] Encounters Encounter Date Encounter Type Care Provider Facility Start: 12-26-2024 End: 12-26-2024 ambulatory Lex Chanelle HERNANDEZ Facility:[facility] Start: 12-05-2024 End: 12-05-2024 ambulatory Lex HERNANDEZ Facility:[facility] Start: 12-03-2024 End: 12-04-2024 [facility] Start: 11-11-2024 End: 11-14-2024 [facility] Start: 11-10-2024 End: 11-11-2024 [facility] Start: 10-20-2024 End: 10-20-2024 ambulatory LEX ROCA [facility] Start: 10-17-2024 End: 10-18-2024 Emergency department patient visit LEX ROCA [facility] Start: 09-25-2024 End: 09-25-2024 ambulatory Lex Roca [facility] [address] Start: 09-25-2024 End: 09-25-2024 Departed Referred Lex Roca [facility] [address] Start: 09-25-2024 End: 09-25-2024 ambulatory Lex Shankshner MARY Facility:[facility] Start: 09-20-2024 ambulatory Lex Chanelle MARY Facil ity:[facility] Start: 09-20-2024 Registered Referred Lex Quint[facility] - [address] Start: 08-16-2024 End: 08-16-2024 ambulatory Lex Chanelle MARY -[facility] - [address] Start: 08-16-2024 End: 08-16-2024 Departed Referred Lex Roca [facility] [address] Start: 08-16-2024 Registered Referred Lex Burtondsworth - [address] Start: 08-16-2024 End: 08-16-2024 ambulatory Lex Roca MARY Facility:[facility] Start: 07-19-2024 End: 07-19-2024 Departed Referred Lex [facility] - [address] Start: 07-19-2024 Registered Referred Lex [facility] - [address] Start: 07-19-2024 End: 07-19-2024 ambulatory Lex Roca MARY Facility:[facility] Start: 07-17-2024 End: 07-17-2024 ambulatory Lex Roca MARY [facility] Work Phone: Start: 07-17-2024 End: 07-17-2024 Departed Referred Lex Vargas - [address] Start: 07-17-2024 End: 07-17-2024 ambulatory Lex Roca MARY Facility:[facility] Start: 07-13-2024 End: 07-14-2024 [facility] Start: 07-12-2024 End: 07-13-2024 [facility] Start: 07-08-2024 End: 07-11-2024 [facility] Start: 07-04-2024 End: 07-04-2024 Departed Referred Lex [facility] - [address] Start: 07-04-2024 Registered Referred Lex Vargas - [address] Start: 07-04-2024 End: 07-04-2024 ambulatory Lex Roca MARY Facility:[facility] Start: 07-03-2024 End: 07-04-2024 [facility] Start: 06-23-2024 End: 06-23-2024 Departed Referred Lex Quintanillaworth - [address] Start: 06-23-2024 End: 06-23-2024 ambulatory Lex HERNANDEZ Facility:[facility] Start: 05-03-2024 ambulatory Lex Chanelle MARY Facil ity:[facility] Start: 05-03-2024 Registered Referred Lex [place] [facility] [place] - [address] Start: 04-26-2024 ambulatory Lex HERNANDEZ Facil ity:[facility] Start: 04-26-2024 Registered Referred Lex T[facility]ar [facility] - [address] Start: 04-24-2024 ambulatory Lex Chanelle HERNANDEZ Facil ity:[facility] Start: 04-24-2024 Registered Referred Lex stein [place] - [address] Start: 04-19-2024 End: 04-19-2024 Departed Referred Lex Trujillo [facility] - [address] Start: 04-19-2024 End: 04-19-2024 ambulatory Lex HERNANDEZ Facility:[facility] Start: 04-10-2024 End: 04-10-2024 Departed Referred Lex Trujillo [place] - [address] Start: 04-10-2024 End: 04-10-2024 ambulatory Lex HERNANDEZ Facility:[facility] Start: 03-27-2024 End: 03-27-2024 ambulatory Lex HERNANDEZ Facility:[facility] Start: 03-16-2024 ambulatory Lex HERNANDEZ Facil ity:[facility] Start: 03-09-2024 End: 03-09-2024 ambulatory Lex HERNANDEZ Facility:[facility] Start: 03-02-2024 End: 03-02-2024 ambulatory Lex HERNANDEZ Facility:[facility] Start: 02-23-2024 End: 02-23-2024 ambulatory Lex HERNANDEZ Facility:[facility] Start: 02-10-2024 End: 02-10-2024 ambulatory Lex HERNANDEZ Facility:[facility] Start: 09-08-2023 End: 09-08-2023 Subsequent hospital visit by physician Lex Roca MD Work Phone: [facility] Comment on above: Encounter for screen ing mammogram for malignant neoplasm of breast Start: 09-07-2023 End: 09-07-2023 Emergency department patient visit Debora Paulson DO Work Phone: [facility] Comment on above: Shortness of breath (Primary Dx); Chronic kidney disease, unspecified CKD stage; Asymptomatic hypertension Start: 05-10-2023 Transcribe Orders Lex hargrove Work Phone: [facility] [employer] Comment on above: Encounter for screen ing mammogram for malignant neoplasm of breast (Primary Dx) Start: 02-13-2023 End: 02-13-2023 ambulatory [facility] Work Phone: Start: 02-13-2023 End: 02-13-2023 Departed Referred [facility] - [address] Start: 02-13-2023 Registered Referred [facility] Start: 02-05-2023 End: 02-05-2023 ambulatory [facility] Work Phone: Start: 02-05-2023 End: 02-05-2023 Departed Referred [facility] - [address] Start: 12-11-2022 End: 12-11-2022 Subsequent hospital visit by physician Micheal Arnold MD Work Phone: [facility] Comment on above: Abdominal pain, left lower quadrant (Primary Dx) Start: 11-25-2022 End: 11-25-2022 [facility] Work Phone: Start: 11-25-2022 End: 11-25-2022 Departed Referred [facility] - [address] Start: 11-25-2022 Registered Referred [facility] [address] Start: 11-12-2022 End: 11-12-2022 Office outpatient new 60 minutes Micheal Arnold MD Work Phone: [facility] Comment on above: Abdominal pain, left lower quadrant (Primary Dx); Nausea and vomiting, unspecified vomiting type Start: 11-05-2022 End: 11-05-2022 ambulatory [facility] Work Phone: Start: 11-05-2022 End: 11-05-2022 Departed Referred [facility] - [address] Start: 10-09-2022 End: 10-09-2022 ambulatory [facility] Work Phone: Start: 10-09-2022 End: 10-09-2022 Departed Referred [facility] [place] - [address] Start: 10-09-2022 [facility] [address] [facility] Start: 08-28-2022 End: 08-28-2022 ambulatory [facility] Work Phone: Start: 08-28-2022 End: 08-28-2022 Departed Referred [facility] - [address] Start: 07-16-2022 End: 07-16-2022 ambulatory [facility] Work Phone: Start: 07-16-2022 End: 07-16-2022 [facility] Start: 06-04-2022 End: 06-04-2022 ambulatory [facility] Work Phone: Start: 06-04-2022 End: 06-04-2022 Departed Referred [facility] - [address] Start: 05-21-2022 End: 05-21-2022 Subsequent hospital visit by physician Lex Roca Work Phone: [facility] Comment on above: Encounter for screen ing mammogram for malignant neoplasm of breast Start: 03-09-2022 End: 03-09-2022 ambulatory [facility] Work Phone: Start: 03-09-2022 End: 03-09-2022 Departed Referred [facility] - [address] Start: 12-04-2021 End: 12-04-2021 ambulatory [facility] Work Phone: Start: 12-04-2021 End: 12-04-2021 Departed Referred [facility] - [address] Start: 10-20-2021 End: 10-20-2021 Departed Referred [facility] - [address] Start: 08-11-2021 End: 08-11-2021 Departed Referred [facility] [place] - [address] Start: 05-20-2021 End: 05-20-2021 Subsequent hospital visit by physician Lex Roca MD Work Phone: [facility] Comment on above: Arrived Start: 05-05-2021 End: 05-05-2021 Departed Referred [facility] - [address] Start: 08-12-2018 End: 08-12-2018 Patient encounter procedure [facility] Start: 08-09-2018 End: 08-09-2018 Patient encounter procedure HANANE MOODY [facility] Start: 07-17-2018 End: 07-18-[address] [facility] [address] [facility] Start: 06-27-2018 End: 06-27-2018 Emergency department patient visit [facility] Facility[facility] Start: 06-25-2018 End: 06-25-2018 Patient encounter procedure KRUPA STEINBERG [facility] Start: 05-06-2018 End: 05-07-2018 Patient encounter procedure CORY LA [facility] Start: 03-01-2018 End: 03-15-2018 Evaluation and management of inpatient [facility] Facility[facility] Procedures Date Procedure Procedure Detail Performing Clinician Start: 08-16-2024 Urine culture Lex Francis [facility] Start: 08-16-2024 Urnls dip stick/tabl et reagent [...] 09-07-2023 Assay of troponin quantitative Ravi Carney [employer] Work Phone: Start: 09-07-2023 Basic metabolic pane l calcium total Ravi Carney [employer] Work Phone: Start: 09-07-2023 Radiologic exam ches t single view Ravi Carney [employer] Work Phone: Start: 09-07-2023 Ecg routine ecg w/le ast 12 lds trcg only w/o i&r Ravi Carney [employer] Work Phone: Start: 02-13-2023 Urine culture Start: [...] Electrocardiogram SUBAN RAZACK Start: 03-01-2018 Electrocardiogram SUBAN MEKAACK Microbial culture, routine Urine culture Plan of Treatment Date Care Activity Detail Author Start: 12-11-2032 Screening for malignant neoplasm of colon [facility] Start: 03-01-2028 DTaP/Tdap/Td vaccine (4 - Td or Tdap) DTaP/Tdap/Td vaccine (4 - Td or Tdap) [facility] Start: 03-01-2028 DTaP/Tdap/Td Vaccines (4 - Td or Tdap) DTaP/Tdap/Td Vaccines (4 - Td or Tdap) [facility] Start: 2026 Pneumococcal 0-64 years Vaccine (2 of 2 - PPSV23) Pneumococcal 0-64 years Vaccine (2 of 2 - PPSV23) [facility] Start: 2026 Pneumococcal Vaccine: Pediatrics (0 to 5 Years) and At-Risk Patients (6 to 64 Years) (3 - PPSV23 if available, else PCV20) Pneumococcal Vaccine: Pediatrics (0 to 5 Years) and At-Risk Patients (6 to 64 Years) (3 - PPSV23 if available, else PCV20) [facility] Start: 2026 Pneumococcal Vaccine: Pediatrics (0 to 5 Years) and At-Risk Patients (6 to 64 Years) (3 of 3 - PPSV23 or PCV20) Pneumococcal Vaccine: Pediatrics (0 to 5 Years) and At-Risk Patients (6 to 64 Years) (3 of 3 - PPSV23 or PCV20) [facility] Start: 07-12-2025 Glaucoma screening Diabetes: Retinopathy Screening [facility] Start: 09-07-2024 Screening for malignant neoplasm of breast Mammogram [facility] Start: 09-06-2024 Diabetes: Estimated Glomerular Filtration Rate for Kidney Health Diabetes: Estimated Glomerular Filtration Rate for Kidney Health [facility] Start: 06-04-2024 Glaucoma screening Diabetes: Retinopathy Screening [facility] Start: 11-21-2023 Influenza vaccination Influenza Vaccine (Season Ended) [facility] Start: 09-08-2023 End: 09-08-2023 Patient encounter procedure 09/08/2023 1:00 PM EDT Appointment [facility] [address] [place] [id number] Lex Roca MD [address] [place] [address] [facility] Start: 08-06-2023 Glaucoma screening Diabetes: Retinopathy Screening [facility] Start: 05-22-2023 Screening for malignant neoplasm of breast Mammogram [facility] Start: 05-10-2023 End: 07-08-2024 DBT Breast - bilateral screening Bilateral screening mammogram with tomosynthesis Imaging Routine Encounter for screening mammogram for malignant neoplasm of breast Expected: 05/10/2023, Expires: 07/08/2024 [facility] [employer] Work Phone: Comment on above: Expected: [...] Vaccine ( season) COVID-19 Vaccine ( season) [facility] Start: 11-20-2022 Influenza vaccination Influenza Vaccine (#1) [facility] Start: 2021 RSV Immunization aged 60 or older (1 - 1-dose 60+ series) RSV Immunization aged 60 or older (1 - 1-dose 60+ series) [facility] Start: 11-20-2021 Influenza vaccination Influenza Vaccine (#1) [facility] Start: 11-20-2020 Influenza vaccination Flu vaccine (#1) [facility] Start: 09-15-2020 COVID-19 Vaccine (3 - Booster for Pfizer series) COVID-19 Vaccine (3 - Booster for Pfizer series) [facility] Start: 06-12-2020 COVID-19 Vaccine (3 - Booster for Pfizer series) COVID-19 Vaccine (3 - Booster for Pfizer series) [facility] Start: 07-18-2019 Creatinine measurement Creatinine monitoring [facility] Start: 07-18-2019 Potassium monitoring Potassium monitoring [facility] Start: 07-17-2019 Hemoglobin A1c measurement A1C test (Diabetic or Prediabetic) [facility] Start: 12-16-2018 Screening for malignant neoplasm of breast Breast cancer screen [facility] Start: 12-08-2011 Shingles Vaccine (1 of 2) Shingles Vaccine (1 of 2) [facility] Start: 12-08-2011 Zoster Vaccines (1 of 2) Zoster Vaccines (1 of 2) [facility] Start: 2006 Screening for malignant neoplasm of colon [facility] Start: 12-08-1991 Screening for malignant neoplasm of cervix [facility] Start: 1982 Screening for malignant neoplasm of cervix Pap smear [facility] Start: 1980 Hepatitis B vaccine (1 of 3 - Risk 3-dose series) Hepatitis B vaccine (1 of 3 - Risk 3-dose series) [facility] Start: 1980 Urine screening for protein Diabetes: Urine Protein Screening [facility] Start: 12-08-1979 Diabetes: Estimated Glomerular Filtration Rate for Kidney Health Diabetes: Estimated Glomerular Filtration Rate for Kidney Health [facility] Start: 12-08-1979 Diabetes: Urine Albumin-Creatinine Ratio for Kidney Health Diabetes: Urine Albumin-Creatinine Ratio for Kidney Health [facility] Start: 12-08-1979 Diabetic retinal exam Diabetic retinal exam [facility] Start: 12-08-1979 Hepatitis C screening Hepatitis C Screening [facility] Start: 12-08-1979 Urine screening for protein Diabetic microalbuminuria test [facility] Start: 1976 HIV screening HIV screen [facility] Start: 1973 Depression Screen Depression Screen [facility] Start: 1973 Depression Screening Depression Screening [facility] Start: 12-08-1971 Diabetic foot examination [facility] Start: 12-08-1971 Lipid panel Lipid screen [facility] Start: 12-08-1971 Preventive dental service Diabetes: Dental Exam [facility] Start: 1962 MMR Vaccines (1 of 1 - Standard series) MMR Vaccines (1 of 1 - Standard series) [facility] Start: 1961 Hemoglobin A1c measurement Diabetes: Hemoglobin A1C [facility] Start: 1961 Hepatitis B Vaccines (1 of 3 - 3-dose series) Hepatitis B Vaccines (1 of 3 - 3-dose series) [facility] Start: 1961 Hepatitis C screening Hepatitis C screen [facility] Start: 1961 HIV screening HIV Screening [facility] Start: 1961 Lipid panel Lipid Panel [facility] Start: 1961 Screening for malignant neoplasm of colon [facility] Start: 1961 Thyroid stimulating hormone measurement TSH Level [facility] Immunizations Immunization Date Immunization Notes Care Provider Fa danny 04-17-2020 Pfizer SARS-CoV-2 Vaccination Lex Roca Work Phone: [facility] 03-27-2020 Pfizer SARS-CoV-2 Vaccination Lex Roca Work Phone: [facility] 12-21-2017 tetanus toxoid, redu yohana diphtheria toxoid, and acellular pertussis vaccine, adsorbed Lex Roca MD Work Phone: [facility] 12-12-2017 Influenza, Quadv, 6 mo and older, IM, PF (Flulaval, Fluarix) Lex Roca MD Work Phone: [facility] 12-12-2017 influenza virus vacc ine, unspecified formulation Lex Roca Work Phone: [facility] 10-23-2017 tetanus toxoid, redu yohana diphtheria toxoid, and acellular pertussis vaccine, adsorbed Lex Roca MD Work Phone: [facility] Payers Date Payer Category Payer Self-pay [id number] 2018 Medicaid MEDICAID - [facility] [place] [id number] 2018-Present [address] [place] [address] Medicaid [id number] 1961 Unknown [id number] [id number] 1961 Unknown [id number] 2..840.1.757584.3.579.2.278 1961 Unknown [id number] 2.16.840.1.060532.3.579.2.668 1961 Unknown [id number] 2.16.840.1.163170.3.579.2.598 1961 Unknown [id number] 2.16.840.1.088811.3.579.2.598 1961 Unknown [id number] 2.16.840.1.184352.3.579.2.598 1961 Unknown [id number] 2.16.840.1.400813.3.579.2.598 1959 Medicaid [id number] Unknown Unknown [id number] 2.16.840.1.464480.3.579.2.462 Unknown [id number] 2..840.1.055236.3.579.2.462 Unknown [id number] 2.16.840.1.290304.3.579.2.462 Unknown [id number] 2..840.1.847828.3.579.2.462 Unknown [id number] 2.16.840.1.129873.3.579.2.462 Unknown [id number] 2.16.840.1.888964.3.579.2.462 Unknown [id number] 2.16.840.1.876463.3.579.2.462 Unknown [id number] 2.16.840.1.352470.3.579.2.462 Unknown [id number] 2.16.840.1.765113.3.579.2.462 Unknown [id number] 2.16.840.1.044008.3.579.2.462 Unknown [id number] 2.16.840.1.885702.3.579.2.462 Unknown [id number] 2.16.840.1.974895.3.579.2.462 Unknown [id number] 2.16.840.1.902102.3.579.2.462 Unknown [id number] 2.16.840.1.495123.3.579.2.462 Unknown [id number] 2.16.840.1.079292.3.579.2.462 Unknown [id number] 2.16.840.1.620119.3.579.2.462 Unknown [id number] 2.16.840.1.560601.3.579.2.462 Unknown [id number] 2.16.840.1.167547.3.579.2.462 Unknown [id number] 2.16.840.1.953046.3.579.2.462 Unknown [id number] 2.16.840.1.867406.3.579.2.462 Social History Date Type Detail Facility Start: 09-20-2017 Tobacco smoking stat [facility] Ex-smoker [employer] Work Phone: Start: 09-20-2017 Tobacco use and exposure Smokeless tobacco non-user [employer] Work Phone: Start: 07-18-2018 End: 05-21-2022 Alcohol intake Current non-drinker of alcohol (finding) [employer] Work Phone: Start: 1960 Sex Assigned At Not on file [employer] Work Phone: Start: 1960 Sex Assigned At Female [facility] History of tobacco use Current smoker [facility] Start: 05-21-2022 End: 12-11-2022 History of Social function [facility] [employer] Start: 05-21-2022 End: 12-11-2022 Tobacco use panel [facility] Start: 05-11-2022 End: 12-11-2022 Exposure to SARS-CoV-2 (event) Not sure [facility] How often to you hav e a drink containing alcohol? Never [facility] How many standard drinks containing alcohol do you have on a typical day? Patient does not drink [facility] Health Tobacco smoking stat [facility] Unknown if ever smoked [facility] Work Phone: Clinical Notes 11-12-2022 to 11-14-2024 [...] diet adjustments. Monica Felix RD Contact #: *[phone] [facility] 11-14-2024 Note Patient seen and exa [...] Discussed with COLE regarding plan of care [facility] 11-14-2024 Note Discharge Summary Cinthya Castillo [...] was medically optimized and discharged back to [facility]. SIGNIFICANT DIAGNOSTIC STUDIES: Chest xray: Reason For [...] phasicity, spontaneous, norm (more content not included)... [facility] 11-13-2024 Note PHYSICAL THERAPY [facility] Initial Evaluation Name/MRN: Cinthya Castillo ([id number]) Evaluation Date: 11/13/2024 Date of : 1960 Admission Date: 11/11/2024 11:54 PM Age: 63 y.o. Room/Bed: E5501/E5[facility] A Discharge Recommendation: Detention Facility Equipment Needed: No Assessment IMPRESSION: Pt was admitted with hyperglycemia. She is a resident at [facility]. She requires assist with ADL's. She [...] Transferred to chair/co (more content not included)... [facility] 11-13-2024 Note Referral placed to [facility] Return - [facility] via [facility] per TCC request. Await review and response regarding ability to accept. TCC notified. Electronically signed by [facility] Gera Dewitt [facility] 11-13-2024 Note Care Management Prog ress Note Short Medical why still here: New pt. Glucose 523 on admission. RONNI, better this morning. UA positive. IV fluids. Echo,US, and BLE duplex ordered, pending. Planned Discharge Disposition: Halfway/Residential Care. Pt is from [facility]. Pt has legal guardian. TCC spoke to legal guardian via phone call. Legal guardian is agreeable for pt to return to [facility]. TCC tasked [facility] to make return referral to [facility]. TCC will follow for LTC response. Barriers/Today we still Wait: Clinical stability, Administering IV medications, Color Repairer recommendations (comment), Patient/caregiver facility choice Length of Stay (Days): 1 GMLOS: No GMLOS Documented [facility] 11-13-2024 Note Hospitalist Progress Note 11/13/2024 Subjective: Admit Date: 11/11/2024 PCP: Lex Roca MD Room#: E5501/E5501 A BRIEF HOSPITAL COURSE: Cinthya is a [...] Legal Guardian Ivan (more content not included)... [facility] 11-12-2024 Note Family Communication Number Called: [phone] Name of Designated Family Twisting Frame Fixer: GAIL (legal guardian) Family Twisting Frame Fixer Updated on the Following: Plan of care and current patient condition [facility] 11-12-2024 Note Attending History an d [...] 12/11/2022 Performed by Micheal Silva MD at [facility] [address] Social History: Social History [...] noted LLE DATA: CBC: Recent Labs 11/12/24 0008 WBC 11.7* RBC 3.43* HGB 10.1* HCT 30.1* MCV 87.8 RDW 13.8 PLT 323 BMP: Recent Labs 11/12/24 0008 11/12/24 0315 NA 136 136 K 5.8* 5.8* CL 112* 115* CO2 16* 16* BUN 74* 70* CREATININE 3.00* 2.82* GLUCOSE 523* 410* CALCIUM 7.5* 7.4* ANIONGAP 8 5 LIVER PROFILE: Recent Labs 11/12/24 0008 AST 27 ALT 10 BILITOT 0.2 ALKPHOS 58 PROT 6.1* PT/INR: No results for input(s): "PROTIME", "INR" in the last 72 hours. CAR (more content not included)... [facility] 07-11-2024 Note Referral placed to moy walton back to [facility] Mira Vargas via Careport per TCC request. Await review and response regarding ability to accept. TCC notified. [facility] 07-11-2024 Note Discharge Summary Cinthya Castillo [...] transitioned to oral antibiotics and discharged to [facility]. SIGNIFICANT DIAGNOSTIC STUDIES: none CONSULTANTS: Wound Care [...] Your Medications These medications [facility] [address] Hours: Wednesday to Wednesday 10 am to [...] Complexity: follow up within 7-14 calendar days (97960) [] Severe Complexity: follow up within 7 calendar days (22430) FOLLOW UP TESTING, PENDING RESULTS OR REFERRALS AT TRANSITIONAL CARE VISIT: [] Yes [] No PENDING STUDIES: No DISPOSITION: [facility] FACILITY/HOME CARE AGENCY [facility] Follow up with [facility] [address] [address] INSTRUCTIONS TO MA/SW: Please call patient on day after discharge (must document patient contacted within 2 business days of discharge). FOLLOW UP QUESTIONS FOR MA/SW: 1. Did you get medications filled an (more content not included)... [facility] 07-11-2024 Note Problem: Potential f or Compromised Skin Integrity Goal: Skin Integrity is Maintained or Improved Outcome: Progressing [facility] 07-10-2024 Note PHYSICAL THERAPY [facility] Initial Evaluation Name/MRN: Cinthya Castillo ([id number]) Evaluation Date: 07/10/2024 Date of : 1960 Admission Date: 07/08/2024 7:50 PM Age: 63 y.o. Room/Bed: [facility] A Discharge Recommendation: ECF with PT Equipment [...] 12/11/2022 Performed by Micheal Silva MD at [address] ENDOSCOPY Admission Diagnosis: Patient Active Problem List Diagnosis Date Noted Left leg cellulitis 07/08/2024 Shortness of breath 09/07/2023 Chronic kidney disease 09/07/2023 Lightheadedness 07/18/2018 Abdominal pain, left lower quadrant 07/18/2018 Hypertension 07/17/2018 Type 2 diabetes mellitus with hyperglycemia, without long-term current use of insulin ([facility]) 07/17/2018 Nausea & vomiting 07/17/2018 Diabetes mellitus type 2 in obese ([facility]) 12/19/2017 Hypoglycemia 12/19/2017 Neuropathy 12/19/2017 Intertrigo 12/19/2017 CAD (coronary artery disease) 12/19/2017 Generalized weakness 12/10/2017 Acute renal injury ([facility]) 12/10/2017 Medical Precautions: No active isolations [...] Hearing: normal Social/Functional History Patient admitted from [facility]. Assistive Equipment: front wheeled walker Prior Level [...] Training, Pain Managemen (more content not included)... [facility] 07-10-2024 Note Hospitalist Progress Note 07/10/2024 Subjective: Admit Date: 07/08/2024 PCP: Lex Roca MD Room#: Q6-021/[id number] A Interval History: She is weak. Tolerating [...] IV and subc (more content not included)... [facility] 07-10-2024 Note Pharmacy to Dose Van comycin - Progress Note Recent Labs 07/08/24201107/09/24 0159 07/10/24 0538 BUN 59* 58* 54* CREATININE 2.59* 2.37* 2.13* Lab Results Component Value Date [facility] 07/10/2024 Doses, serum creatinine, and vancomycin levels interfaced automatically to [email or web address] and data has been analyzed and interpreted. [...] placed. DATE: 07/10/24 TIME: 8:08 AM Aleksandr Desir PharmD Clinical Pharmacist Available via Secure Chat [facility] 07-09-2024 Note Attending History an d [...] 12/11/2022 Performed by Micheal Silva MD at [address] ENDOSCOPY Social History: Social History Socioeconomic [...] 250 mL IVPB, 750 mg, IntraVENous, q24h, mOi Fernandez MD Allergies: Allergies Allergen Reactions Penicillins [...] and flank pain. (more content not included)... [facility] 09-07-2023 Emergency department Note Discharge paperwork completed. Pt verbalized understanding regarding follow-up care. Reports decreased discomfort at time of departure. Bethanie Villalobos RN 09/07/23 6508 [facility] 09-07-2023 Emergency department Note Discharge paperwork completed. Pt verbalized understanding regarding follow-up care. Reports decreased discomfort at time of departure. Bethanie Villalobos RN 09/07/23 8462 [facility] at bedside receiving report and preparing for transport [facility]. Bethanie Villalobos RN 09/07/23 0912 Received report from previous RN and assumed care of pt. Bethanie Villalobos RN 09/07/23 1676 Pt brought in from nursing facility with c/o shortness of breath. Patient has a known history of COPD. Patient 98% on room air, speaking in complete sentences, no acute distress noted. Asking for remote to television. States she wants to be admitted to the hospital because she doesn't feel like going back home. documented in this encounter [facility] 09-07-2023 Emergency department Note [facility] at bedside receiving report and preparing for transport back to [facility]. Bethanie Villalobos RN 09/07/23 0934 [facility] 09-07-2023 Hospital Discharg e instructions WALESKA Cheney CNP - 09/07/2023 10:50 PM EDT Please make appointment to follow-up with your PCP in 2 days. The following attachments cannot be sent through Care Everywhere.Shortness of Breath (Dyspnea) Discharge Instructions (Bahraini)documented in this encounter [facility] 09-07-2023 Emergency department Note Received report from previous RN and assumed care of pt. Bethanie Villalobos RN 09/07/23 7966 [facility] 09-07-2023 Emergency department Triage note Pt brought in from nursing facility with c/o shortness of breath. Patient has a known history of COPD. Patient 98% on room air, speaking in complete sentences, no acute distress noted. Asking for remote to television. States she wants to be admitted to the hospital because she doesn't feel like going back home. [facility] 12-11-2022 Hospital Discharg e instructions Aryan Coon [...] NEAREST EMERGENCY DEPARTMENT documented in this encounter [facility] 12-11-2022 Note Formatting of this n ote might be different from the original. Images from the original note were not included. DEPARTMENT OF SURGERY OPERATIVE NOTE DATE OF PROCEDURE: 12/11/2022 ATTENDING SURGEON: Micheal Arnold MD CARDIOPULMONARY PHYSICAL THERAPIST: 0 PREOPERATIVE DIAGNOSIS: Abdominal pain in the lower POSTOPERATIVE DIAGNOSIS: Also with history of peptic ulcer disease nausea with vomiting OPERATION: EGD ANESTHESIA: General ESTIMATED BLOOD LOSS: Bahraini Tolerated procedure well HISTORY: Patient referred for colonoscopy and EGD today by her primary physician at [facility] history of peptic ulcer disease and gastritis she had a upper GI endoscopy to the second portion of duodenum no abnormalities seen PROCEDURE: The scope was inserted without difficulty esophagus stomach and duodenum biopsy was not necessary she had some mild atrophic gastritis but no ulcers or tumors tolerated the procedure well next turned over for colonoscopy [employer] 12-11-2022 Note Formatting of this n ote might be different from the original. Images from the original note were not included. DEPARTMENT OF SURGERY OPERATIVE NOTE DATE OF PROCEDURE: 12/11/2022 ATTENDING SURGEON: Micheal Arnold MD CARDIOPULMONARY PHYSICAL THERAPIST: 0 PREOPERATIVE DIAGNOSIS: Abdominal pain in the lower mostly POSTOPERATIVE DIAGNOSIS: Few diverticuli nothing severe OPERATION: Colonoscopy ANESTHESIA: General ESTIMATED BLOOD LOSS: Bahraini HISTORY: Patient presenting with significant epigastric and [...] confirmed normal findings surgery was tolerated well [employer] 12-11-2022 Note Formatting of this n ote might be different from the original. Images from the original note were not included. DEPARTMENT OF SURGERY OPERATIVE NOTE DATE OF PROCEDURE: 12/11/2022 ATTENDING SURGEON: Micheal Arnold MD CARDIOPULMONARY PHYSICAL THERAPIST: 0 PREOPERATIVE DIAGNOSIS: Abdominal pain in the lower POSTOPERATIVE DIAGNOSIS: Also with history of peptic ulcer disease nausea with vomiting OPERATION: EGD ANESTHESIA: General ESTIMATED BLOOD LOSS: Bahraini Tolerated procedure well HISTORY: Patient referred for colonoscopy and EGD today by her primary physician at [facility] history of peptic ulcer disease and gastritis she had a upper GI endoscopy to the second portion of duodenum no abnormalities seen PROCEDURE: The scope was inserted without difficulty esophagus stomach and duodenum biopsy was not necessary she had some mild atrophic gastritis but no ulcers or tumors tolerated the procedure well next turned over for colonoscopy T [facility] [employer] 12-11-2022 Note Formatting of this n ote might be different from the original. Images from the original note were not included. DEPARTMENT OF SURGERY OPERATIVE NOTE DATE OF PROCEDURE: 12/11/2022 ATTENDING SURGEON: Micheal Arnold MD CARDIOPULMONARY PHYSICAL THERAPIST: 0 PREOPERATIVE DIAGNOSIS: Abdominal pain in the lower mostly POSTOPERATIVE DIAGNOSIS: Few diverticuli nothing severe OPERATION: Colonoscopy ANESTHESIA: General ESTIMATED BLOOD LOSS: Bahraini HISTORY: Patient presenting with significant epigastric and [...] confirmed normal findings surgery was tolerated well [facility] 12-11-2022 Miscellaneous Notes Images from the original note were not included. DEPARTMENT OF SURGERY OPERATIVE NOTE DATE OF PROCEDURE: 12/11/2022 ATTENDING SURGEON: Micheal Arnold MD CARDIOPULMONARY PHYSICAL THERAPIST: 0 PREOPERATIVE DIAGNOSIS: Abdominal pain in the lower POSTOPERATIVE DIAGNOSIS: Also with history of peptic ulcer disease nausea with vomiting OPERATION: EGD ANESTHESIA: General ESTIMATED BLOOD LOSS: Bahraini Tolerated procedure well HISTORY: Patient referred for colonoscopy and EGD today by her primary physician [facility] history of peptic ulcer disease and gastritis [...] PROCEDURE: 12/11/2022 ATTENDING SURGEON: Micheal Arnold MD CARDIOPULMONARY PHYSICAL THERAPIST: 0 PREOPERATIVE DIAGNOSIS: Abdominal pain in the lower mostly POSTOPERATIVE DIAGNOSIS: Few diverticuli nothing severe OPERATION: Colonoscopy ANESTHESIA: General ESTIMATED BLOOD LOSS: Bahraini HISTORY: Patient presenting with significant epigastric and [...] was tolerated well documented in this encounter [facility] 12-11-2022 History and physical note Images from the original note were not included. Office Visit 11/12/2022 [facility] General Surgery Micheal Silva MD [...] vomiting, unspecified vomiting type R11.2 Problem List [employer] Work Phone: 12-11-2022 History and physical note Images from the original note were not included. Office Visit 11/12/2022 [facility] General Surgery Micheal Silva MD [...] encounter. Follow Up: Micheal Arnold MD, @TODAYMOATE@ Instructions Follow up for AFTER COLONOSCOPY. AVS - Outpatient (Automatic SnapShot taken 11/12/2022) Additional Documentation Vitals: BP 151/82 Important (BP Location: Right arm, Patient Position: Sitting, BP Cuff Size: Large adult) Pulse 86 [employer]: [facility] SMARTFORM EXAM ROOM Encounter Info: Billing Info, History, Allergies, Detailed Report, [employer] View All Conversations on this Encounter No questionnaires available. Orders Placed None Medication Changes None Medication List Visit Diagnoses Abdominal pain, left lower quadrant R10.32 Nausea and vomiting, unspecified vomiting type R11.2 Problem List Images from the original note were not included. Office Visit 11/12/2022 [facility] General Surgery Micheal Silva MD [...] Cuff Size: Large adult) [employer]: [employer] SMARTFORM EXAM ROOM Encounter Info: Billing Info, History, Allergies, Detailed Report, [employer] View All Conversations on this Encounter No questionnaires available. Orders Placed None Medication Changes None Medication List Visit Diagnoses Abdominal pain, left lower quadrant R10.32 Nausea and vomiting, unspecified vomiting type R11.2 Problem List documented in this encounter [facility] 12-11-2022 History and physical note Images from the original note were not included. Office Visit 11/12/2022 [facility] General Surgery Micheal Silva MD General [...] Cuff Size: Large adult) Pulse [employer]: [facility] SMARTFORM EXAM ROOM Encounter Info: Billing Info, History, Allergies, Detailed Report, [employer] View All Conversations on this Encounter No questionnaires available. Orders Placed None Medication Changes None Medication List Visit Diagnoses Abdominal pain, left lower quadrant R10.32 Nausea and vomiting, unspecified vomiting type R11.2 Problem List [facility] [employer] 11-12-2022 History of Presen t illness Narrative [...] Arnold MD, @TODAYSDATE@ documented in this encounter [facility] Evaluation note No assessment inform ation available [facility] Work Phone: Evaluation note Diagnosis Abdominal pain, left lower quadrant- Primary Nausea and vomiting, unspecified vomiting type [facility] Diagnosis Abdominal pain, left lower quadrant- Primary [facility] Diagnosis Encounter for screening mammogram for malignant neoplasm of breast- Primary [facility] Diagnosis Shortness of breath- Primary Shortness of breath Chronic kidney disease, unspecified CKD stage Asymptomatic hypertension Chronic kidney disease Chronic kidney disease, unspecified [facility] Diagnosis Encounter for screening mammogram for malignant neoplasm of breast [facility] Diagnosis Encounter for screening mammogram for malignant neoplasm of breast [facility] (narrative)No reason for referral information availablePremier [facility] Work Phone: Summary Purpose Family History No Family History Records FoundNo Family History Records FoundNo Family History Records FoundNo Family History Records FoundNo Family History Records FoundNo Family History Records FoundNo Family History Records FoundNo Family History Records Found Advance Directives No Advanced Directives Records FoundDocuments on File Type Date Recorded 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 ACP-Advance Directive ACP-Power of Film Booker Latest Code Status on File Code Status Date Activated Date Inactivated Comments Full Code 07/17/2018 3:13 AM 07/18/2018 1:02 PM Full Code 12/16/2017 8:42 PM 12/18/2017 8:54 PM Full Code 12/10/2017 7:30 PM 12/13/2017 9:20 PM Chief Complaint and Reason for Visit Chief Complaint MCC LAB WOR K Chief Complaint MCC LABWORK MCC LAB WORK Chief Complaint MCC LAB WOR K MCC LABWORK Chief Complaint MCC LABWORK LABWORK Chief Complaint LABWORK MCC LABWORK Chief Complaint MCC LABWORK MCC LAB WORK LABWORK Chief Complaint LABWORK LABWORK MCC LABWORK LABWORK Chief Complaint MCC LABWORK LABWORK MCC LABWORK MCC LAB WORK Chief Complaint Admit Date LABWORK April 10, 2024 5 :00am LABWORK April 19, 2024 5 :00am LABWORK April 24, 2024 5 :00am M[facility] LAB WORK April 26, 2024 5:00am [facility] LAB WORK May 03 4:00am [facility] LAB WORK June 23, 2024 5: 00am LABOWRK July 17, 2024 5:0 0am Chief Complaint Admit Date [facility] LAB WORK June 23, 2024 5: 00am [facility] LAB WORK July 04, 2024 4 :00am LABOWRK July 17, 2024 5:0 0am [facility] LAB WORK July 19, 2024 5 :00am LABWORK August 16, 2024 5:00a m [facility] LAB WORK September 20, 2024 5:0 0am [facility] LAB WORK September 25, 2024 4:0 0am Additional Source Comments INFORMATION SOURCE (unrecogn ized section and content) DATE CREATED AUTHOR 06/28/2018 [facility] DATE CREATED AUTHOR AUTHOR'S ORGANIZ ATION 07/03/2018 [facility] DATE CREATED AUTHOR AUTHOR'S ORGANIZ ATION 07/21/2018 [facility] DATE CREATED AUTHOR AUTHOR'S ORGANIZ ATION 07/30/2018 [facility] DATE CREATED AUTHOR AUTHOR'S ORGANIZ ATION 10/30/2018 [facility] DATE CREATED AUTHOR AUTHOR'S ORGANIZ ATION 05/22/2021 [facility] DATE CREATED AUTHOR AUTHOR'S ORGANIZ ATION 12/04/2024 [facility] DATE CREATED AUTHOR AUTHOR'S ORGANIZ ATION 01/18/2025 [facility] Care Teams (unrecognized [...] Status Dates Lex HERNANDEZ Attending Provider Active 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 Relationship Specialty Start Date End Date Kristel Nunes MD PCP - General 09/20/17 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 Relationship Specialty Start Date End Date Lex Roca [address] [place] [address] [address] [place] [address] PCP - General 05/20/21 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 Relationship Specialty Start Date End Date Lex Roca [address] [place] [address] [address] [place] [address] PCP - General 05/20/21 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 Relationship Specialty Start Date End Date Lex Roca MD [address] [place] [address] [address] [place] [address] PCP - General 05/20/21 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 Relationship Specialty Start Date End Date Lex Roca MD [address] [place] [address] [address] [place] [address] PCP - General 05/20/21 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 Relationship Specialty Start Date End Date Lex Roca [address] [place] [address] PCP - General 05/20/21 Team Status: Inactive [...] Specialty Diagnoses / Procedures Referred By Shonna valle Referred To Contact Diagnoses Left lower quadrant pain Nausea with vomiting, unspecified Left lower quadrant pain [R10.32] Nausea with vomiting, unspecified [R11.2] Procedures NH ESOPHAGOGASTRODUODENOSCOPY TRANSORAL DIAGNOSTIC NH COLONOSCOPY FLX DX W/COLLJ SPEC WHEN PFRMD EGD DIAGNOSTIC COLONOSCOPY Micheal Arnold MD [address] [place] [address], [address] [place] [id number] [facility] Endoscopy [address] [place] [phone] Referral ID Status Reason Start Date Expiration Date Visits Re quested Visits Authorized [id number] 1 1 Reason Comments Shortness of Breath Pt brought in from [facility] facility with c/o shortness of breath. Patient has a known history of COPD. Scheduled Active and Recently Administ ered Medications (unrecognized section and content) Medication Order 12/09/2022 12/10/2022 12/11/2022 sodium chloride 0.9% (NS) flush 10 mL 10 mL, IntraVENous, Every 12 hours scheduled (2 times per day), First dose on Wed12/11/22 at 2100, Preprocedure PRN Medication Order 12/09/2022 12/10/202212/11/2022 sodium chloride 0.9 % infusion 5-250 mL/hr, [...] BE BASED ON THE PRIMARY CLINICAL RECORDS. [facility]. provides no warranty or guarantee of the accuracy or completeness of information in this document.
[2025-01-22 08:47] LABS: Hematocrit 32.4 % (37-47); Hemoglobin 10.4 g/dL (12.0-15.0); Mean Corp Hgb Conc 32.1 g/dL (32-36); Mean Corpuscular Volume 90.5 fL (81-99); Mean Platelet Vol. 9.8 fl (6.2-12.0); Platelet Count 334 K/mm3 (150-450); RBC Distribution Width CV 13.3 % (11.6-14.6); RBC Distribution Width SD 44.5 fl (35.1-43.9); Red Blood Count 3.58 M/mm3 (4.2-5.4); White Blood Count 7.6 K/mm3 (4.4-11.0)
[2025-01-22 09:13] LABS: AST(SGOT) 18 U/L (<=31); Alanine Aminotransfer ALT/SGPT 10 U/L (<=34); Albumin, Serum 3.4 g/dL (3.4-4.8); Alkaline Phosphatase 57 U/L (35-104); Anion Gap 11 (5-15); BUN 55 mg/dL (4-19); BUN/Creat Ratio 21.8 RATIO (10-20); Calcium,Total 9.2 mg/dL (7.6-11.0); Carbon Dioxide 21.0 mmol/L (21.0-32.0); Chloride 108 mmol/L (98-108); Cholesterol 132 mg/dL (<=200); Globulin 3.2 g/dL (2.2-4.2); Glucose 283 mg/dL (70-99); Low Density Lipoprotein Calc. 67 mg/dL; Magnesium 1.9 mg/dL (1.5-2.2); Potassium 4.7 mmol/L (3.3-5.1); Triglycerides 157 mg/dL; Very Low Density Lipoprotein 31 mg/dL (5-40); Vitamin D,25 Hydroxy 12.4 ng/mL (30-100); cholesterol:hdl ratio screen 3.52
== END | disposition home or self-care (01) ==
LOC: OLS.ACW100 04:00
PROVIDERS: Referring Provider Family Medicine; Visit Provider Family Medicine
DX: E11.21 Type 2 diabetes mellitus with diabetic nephropathy (principal); K57.90 Diverticulosis of intestine, part unspecified, without perforation or abscess without bleeding; M62.81 Muscle weakness (generalized)
CPT/HCPCS: 36415; 80053; 80061; 82306; 83036; 83735; 84443; 85027